=== PATIENT | male | born 1955 | race African-American/Black ===

== ENCOUNTER 2018-03-03 14:58 | Inpatient (IN) ==
[2018-03-03] MEDS ORDERED: Aluminum/Magnesium/Simethacone Susp 30 ML UDC PO PRN (20:15)
[2018-03-03] MEDS ORDERED: Menthol 5.8 MG Lozenge BUCCAL PRN (20:15)
[2018-03-03] MEDS ORDERED: Potassium Chlor 20 mEq Premix 20 MEQ/100 ML PIGGYBACK IV.SIG PRN (22:00)
[2018-03-03] MEDS ORDERED: Magnesium Sulfate Inj 4 GM in Sodium Chlor 0.9% Inj 92 ML IV.SIG PRN (22:00)
[2018-03-03] MEDS ORDERED: Potassium Phosphate 500 MG Soluble Tablet PO PRN ×2 (22:00)
[2018-03-03] MEDS ORDERED: Magnesium Oxide 400 MG Tablet PO PRN (22:00)
[2018-03-03] MEDS ORDERED: Sodium Phosphate Inj 30 MMOL in Sodium Chlor 0.9% Inj 240 ML IV.SIG PRN (22:00)
[2018-03-03] MEDS ORDERED: Magnesium Sulfate Inj 2 GM in Sodium Chlor 0.9% Inj 96 ML IV.SIG PRN (22:00)
[2018-03-03] MEDS ORDERED: Potassium Chlor 40 mEq Premix 40 MEQ/100 ML PIGGYBACK IV.SIG PRN ×2 (22:00)
[2018-03-03] MEDS ORDERED: Potassium Phosphate Inj 30 MMOL in Sodium Chlor 0.9% Inj 250 ML IV.SIG PRN (22:00)
[2018-03-04] MEDS ORDERED: Acetaminophen 325 MG Tablet PO PRN (01:00)
[2018-03-05] MEDS: Multivitamin Inj 10 ML, Folic Acid Inj 1 MG in Sodium Chlor 0.9% Inj 500 ML IV.SIG SCH (22:00)
[2018-03-06] MEDS: Senna/Docusate Sodium 8.6/50 MG Tablet PO SCH ×4 (01:57→20:45)
[2018-03-06] MEDS: Sodium Chloride 23.4% Inj 188 MEQ in Sod Chloride 0.9% Inj 1,000 ML IV.SIG SCH ×4 (01:59→21:17)
[2018-03-06] MEDS: Famotidine PF Inj 20 MG/2 ML Vial IV.PUSH SCH ×5 (01:59→12:37)
[2018-03-06] MEDS: Multivitamin Inj 10 ML, Folic Acid Inj 1 MG in Sodium Chlor 0.9% Inj 500 ML IV.SIG SCH ×4 (05:33→22:51)
[2018-03-06] MEDS: Thiamine Inj 100 MG in Sodium Chlor 0.9% Inj 100 ML IV.SIG SCH ×2 (05:34→06:38)
[2018-03-06 07:23] LABS: Sodium 146 meq/L (136-145)
[2018-03-06 14:29] LABS: Anion Gap 10 meq/L (5-15); Blood Urea Nitrogen 8 mg/dL (7-18); Calcium 8.2 mg/dL (8.5-10.1); Carbon Dioxide 25.3 meq/L (21.0-32.0); Chloride 113 meq/L (98-107); Glomerular Filtration Rate Greater Than 89 mL/min (>89); Glucose,Random 114 mg/dL (74-106); Potassium 3.4 meq/L (3.5-5.1); Sodium 148 meq/L (136-145)
[2018-03-06 14:30] LABS: Alanine Aminotransferase 12 U/L (12-78); Albumin 2.9 g/dL (3.4-5.0); Alkaline Phosphatase 41 U/L (45-117); Aspartate Aminotransferase 53 U/L (15-37); Total Protein 7.4 g/dL (6.4-8.2)
[2018-03-06] MEDS: NICARDIPINE IV.SIG PRN (14:33)
[2018-03-06] MEDS: SODIUM CHLOR 0.9% IV.SIG PRN (14:33)
--- NOTE | 2018-03-06 15:13 | P.PNCC ---
Subjective Subjective Remarks/Hospital Course: 03/03: 62-year-old -[place] male with past medical history of COPD/asthma , tobacco abuse, daily alcohol use who presented to [facility] emergency department after a fall. Patient told EM provider that he was mopping the floor with some chemicals when he felt lightheaded and fell hitting the back of his head. Patient complained of vertigo. CT brain showed right frontal intraparenchymal hemorrhage 5 x 3.3 cm with subarachnoid hemorrhage bilateral frontal lobes, right parietal and right temporal lobes. There is a component of acute subdural hematoma along the right frontoparietal lobe that is 6 mm. There is 4 mm of subfalcine herniation to the left. He is not on anticoagulation but takes aspirin daily. He complained of headache and has received Dilaudid 0.2 mg IV in the ED. BP went up to 183/99 and he was started on Cardene and BP now 144/74 on 5mg/hr. He denied nausea, vomiting, cough, fevers or chills. CTA brain/neck demonstrate no vascular abnormality. He has been admitted by Dr. Dolan and [facility] has been consulted to assist in medical management of ICH as well as workup for syncope. He said that his son had brought him to the emergency department for evaluation however upon evaluation in the ED the son was not present and there was no phone number available for him. 03/04: Resting in bed. Drowsy, arousable. Not following commands. 03/05: Resting in bed. Drowsy, easily arousable. Squeezes with both hands on command. 03/06: More awake, following commands. Dysarthric. Left-sided weakness persists. Objective Vital Signs / I&O: Vital Signs 03/06/18 05:00 03/06/18 08:00 03/06/18 12:00 Temperature 98.8 F 98.7 F 98.9 F Pulse Rate 66 70 58 L Respiratory Rate 22 18 19 Blood Pressure 146/80 H 133/75 138/82 Pulse Oximetry 97 98 98 Intake & Output 03/05/18 03/06/18 03/06/18 18:59 06:59 18:59 Output Total 3500 / 3500 Balance -3500 / -3500 Weight 66 kg Output: Urine 3500 / 3500 Result Diagrams: 03/05/18 04:40 03/06/18 12:09 Objective Remarks: GENERAL: Well-nourished, well-developed patient laying in bed, encephalopathic though arousable. SKIN: Warm and dry. HEAD: Normocephalic. EYES: Pupils bilaterally constricted. No scleral icterus. No injection or drainage. ENT: No nasal bleeding or discharge. Mucous membranes pink and moist. NECK: Trachea midline. No JVD. CARDIOVASCULAR: Regular rate. Sinus on the monitor. No murmurs rubs or gallops. RESPIRATORY: Breathing comfortably with no accessory muscle use. Clear to auscultation. Breath sounds equal bilaterally. On room air. GASTROINTESTINAL: Abdomen soft, non-tender, nondistended. Bowel sounds present. MUSCULOSKELETAL: Extremities without clubbing, cyanosis, or edema. No obvious deformities. NEUROLOGICAL: Drowsy, easily arousable, spontaneous eye opening. Speaks a few words in response to questions, oriented to self, dysarthric speech. Pupils equal and reactive as per above. Extraocular movements are intact with no eye deviation. Squeezes with both hands on command spontaneously moving right upper and lower extremities. Appears to have left hemineglect. does withdraw both arm and leg to noxious stimuli. Sensation appears intact. Plantars equivocal Assessment and Plan - Assessment and Plan Plan: Assessment and Plan NEURO: Right frontal intraparenchymal hemorrhage 53.3 cm. Subarachnoid hemorrhage bilat frontal lobes, right parietal lobe, right temporal. Right frontotemporal subdural hematoma 6 mm with 4 mm right to left shift. Fall ?syncope Daily alcohol use Admitted to [facility] with neurochecks every hour Cardene to maintain systolic blood pressure less than 140, added labetalol prn. Enalaprilat IV x 48 hrs Keppra 500 mg IV every 12 hours Hold Dilaudid for now due to mental status. CTA brain and neck 03/03/18no vascular abnormality CT C-spine -negative for acute injury F/u CT brain. Tylenol as needed for temp >100.4 2% saline/ mannitol per neurosurgery, follow serial sodium/ osmolality Dr. Dolan admitted MVI/Thiamine/folic acid supplementation IV Monitor for evidence of alcohol withdrawal. RESP: Tobacco abuse Elevated carboxyhemoglobin level consistent with history of smoking Patient is currently protecting his airway but his mental status appears to be declining and he is at high risk for loss of airway protection. Will intubate if needed. Tobacco cessation counseling when he is alert and able to participate. CV: Review of EMR indicates he complained of transient shortness of breath and chest pain to Dr. Dolan however emergency medicine providers say this was not mentioned to them. f/u EKG and troponin. Monitor telemetry for evidence of dysrhythmia. Obtain 2D echo. PE is a consideration with syncope, however seems clinically less likely and would not be a candidate for anticoagulation.. f/u BLE u/s. Cardene titrated to SBP <140 as per above. GI: NPO. Speech at therapy to evaluate swallow as he is dysarthric. FEN/RENAL: Monitor intake and output. Monitor electrolytes and creatinine. Replace electrolytes as indicated per ICU electrolyte replacement protocol. ID: Monitor for signs and symptoms of infection. There is presently no leukocytosis or fever. Chest x-ray and UA are negative. HEME: Takes daily aspirin which will be held due to intracerebral hemorrhage.. Platelet count and coags are normal. ENDO: Euglycemic. Monitor bedside glucose every 6 hours. PROPH: SCDs and teds for DVT prophylaxis. Pharmacologic DVT prophylaxis is contraindicated due to intracerebral hemorrhage. Famotidine for stress ulcer prophylaxis ACCESS:Peripheral IV providing adequate access at this time. We will place intravenous line if needed. Art line placement for hemodynamic monitoring. Full code Reviewed EMR and there appears to be no prior advanced directives. No family contact available. Dr. Dalton tried to call the only number provided which ends up being the patient's own cell phone. Patient is critically ill with large intraparenchymal hemorrhage and subdural hematoma. He is at high risk for further decompensation and loss of airway protection. He requires close monitoring in ICU and is at high risk for requiring intubation.
[2018-03-06] MEDS: Potassium Chloride 25 MEQ Effervescent Tablet PO PRN (16:13)
[2018-03-06 21:38] LABS: Sodium 147 meq/L (136-145)
--- NOTE | 2018-03-06 21:49 | P.PNNS ---
Subjective Interval history: Traumatic brain injury with right frontal intracranial hemorrhage. Left hemiplegia. Physical Exam Vital signs: Vital Signs 03/06/18 05:00 03/06/18 08:00 03/06/18 12:00 Temperature 98.8 F 98.7 F 98.9 F Pulse Rate 66 70 58 L Respiratory Rate 22 18 19 Blood Pressure 146/80 H 133/75 138/82 Pulse Oximetry 97 98 98 03/06/18 20:45 Temperature Pulse Rate Respiratory Rate 18 Blood Pressure Pulse Oximetry Intake & Output 03/06/18 03/06/18 03/07/18 06:59 18:59 06:59 Intake Total 960 / 960 105 / 105 Output Total 3500 / 3500 3000 / 3000 Balance -3500 / -3500 -2040 / -2040 105 / 105 Weight 66 kg Intake: IV 105 / 105 Keppra Inj 500 MG In NS Inj 100 105 / 105 ML @ 400 mls/hr IV.SIG Q12H PEDRO LUIS Rx#:[id number] Oral 960 / 960 Output: Urine 3500 / 3500 3000 / 3000 Other: Date of Last Bowel Movement 04/01/18 # Bowel Movements 0 Narrative: Remains moderate lethargic. Occasional verbal. Denies headache Left hemiplegia Moves right upper and lower extremity moderate-occasional to command Assessment and Plan - Assessment (1) Traumatic brain injury Code(s): S06.9X9A - Unspecified intracranial injury with loss of consciousness of unspecified duration, initial encounter Status: Acute Qualifiers: Encounter type: subsequent encounter - Plan Discussed with patient family in room He has advanced to thin liquids per speech therapy today Continuing therapies
[2018-03-07] MEDS: Famotidine PF Inj 20 MG/2 ML Vial IV.PUSH SCH ×2 (01:00→12:01)
[2018-03-07 02:06] LABS: Sodium 151 meq/L (136-145)
[2018-03-07 07:06] LABS: Baso % (Auto) 0.2 % (0.0-2.0); Eos % (Auto) 0.4 % (0.0-4.0); Hematocrit 39.3 % (39.0-51.0); Hemoglobin 13.3 gm/dL (13.0-17.0); Lymph % (Auto) 14.2 % (9.0-44.0); Mean Corpuscular HGB Conc 33.8 % (32.0-36.0); Mean Corpuscular Hemoglobin 32.2 pg (27.0-34.0); Mean Corpuscular Volume 95.3 fL (80.0-100.0); Mean Platelet Volume 8.2 fL (7.0-11.0); Mono # (Auto) 0.6 th/mm3 (0.0-0.9); Mono % (Auto) 8.4 % (0.0-8.0); Neut # (Auto) 5.4 th/mm3 (1.8-7.7); Neut % (Auto) 76.8 % (16.0-70.0); Platelet Count 202 th/mm3 (150-450); Red Blood Count 4.12 mil/mm3 (4.50-5.90); Red Cell Distribution Width 12.6 % (11.6-17.2); White Blood Count 7.1 th/mm3 (4.0-11.0)
[2018-03-07 08:02] LABS: Alanine Aminotransferase 10 U/L (12-78); Albumin 2.8 g/dL (3.4-5.0); Alkaline Phosphatase 45 U/L (45-117); Anion Gap 9 meq/L (5-15); Aspartate Aminotransferase 27 U/L (15-37); Blood Urea Nitrogen 7 mg/dL (7-18); Calcium 8.8 mg/dL (8.5-10.1); Chloride 113 meq/L (98-107); Glomerular Filtration Rate Greater Than 89 mL/min (>89); Glucose,Random 112 mg/dL (74-106); Sodium 147 meq/L (136-145); Total Protein 7.6 g/dL (6.4-8.2)
[2018-03-07 08:39] LABS: Potassium 2.9 meq/L (3.5-5.1)
[2018-03-07] MEDS: Potassium Chlor 20 mEq Premix 20 MEQ/100 ML PIGGYBACK IV.SIG PRN ×4 (08:43→16:53)
[2018-03-07] MEDS: Senna/Docusate Sodium 8.6/50 MG Tablet PO SCH ×2 (08:44→21:06)
[2018-03-07] MEDS: Sodium Chloride 23.4% Inj 188 MEQ in Sod Chloride 0.9% Inj 1,000 ML IV.SIG SCH (09:55)
--- NOTE | 2018-03-07 10:54 | P.PNNS ---
Subjective Interval history: Pt opens eyes and mumbles. He does state his name but again mumbled. He moves the right side well and has weakness in the LLE and dense weakness in the LUE. <Sung Lieberman - Last Filed: 03/07/18 10:43> Physical Exam Vital signs: Vital Signs 03/06/18 12:00 03/06/18 20:00 03/06/18 20:45 Temperature 98.9 F 98.8 F Pulse Rate 58 L 65 Respiratory Rate 19 18 Blood Pressure 138/82 149/86 H Pulse Oximetry 98 96 03/06/18 22:39 03/07/18 04:00 03/07/18 08:41 Temperature Pulse Rate 64 Respiratory Rate 18 Blood Pressure 145/81 H Pulse Oximetry 95 Intake & Output 03/06/18 03/07/18 03/07/18 18:59 06:59 18:59 Intake Total 960 / 960 460 / 460 Output Total 3000 / 3000 3200 / 3200 Balance -2040 / -2040 -2740 / -2740 Weight 66.1 kg Intake: IV 210 / 210 Keppra Inj 500 MG In NS Inj 100 210 / 210 ML @ 400 mls/hr IV.SIG Q12H PEDRO LUIS Rx#:[id number] Oral 960 / 960 250 / 250 Output: Urine 3000 / 3000 3200 / 3200 Other: Date of Last Bowel Movement 04/01/18 04/01/18 # Bowel Movements 0 0 - Constitutional mild distress, thin, cooperative - Routine HEENT Exam Head: Present: normocephalic. Absent: CSF otorrhea Eye: Present: PERRL. Absent: conjunctival icterus ENT: Present: external ear normal - Routine Respiratory Exam Present: CTA bilaterally. Absent: respiratory distress, rhonchi, wheezes - Routine Cardiovascular Exam Present: RRR, S1, S2. Absent: murmur - Routine Abdominal Exam Present: soft, normoactive bowel sounds. Absent: tenderness - Routine Extremities Exam Absent: cyanosis, edema, full ROM (Left sided weakness LLE weak LUE dense weakness.) - Routine Neurological Exam Present: motor deficit (LUE weak, LLE dense weakness.), altered mental status. Absent: oriented X3, moving all extremities, normal speech - Detailed Neurological Exam: Coma Scale Eye Opening: Spontaneous Verbal Response: Sounds Motor Response: Obey commands Alfonso Coma Scale Total: 12 - Routine Psychiatric Exam Present: cooperative. Absent: normal thought process, good insight, good judgment <Sung Lieberman - Last Filed: 03/07/18 10:43> Vital signs: Vital Signs 03/06/18 20:00 03/06/18 20:45 03/06/18 22:39 Temperature 98.8 F Pulse Rate 65 Respiratory Rate 18 18 Blood Pressure 149/86 H Pulse Oximetry 96 03/07/18 04:00 03/07/18 08:41 Temperature Pulse Rate 64 Respiratory Rate Blood Pressure 145/81 H Pulse Oximetry 95 Intake & Output 03/06/18 03/07/18 03/07/18 18:59 06:59 18:59 Intake Total 960 / 960 460 / 460 300 / 300 Output Total 3000 / 3000 3200 / 3200 Balance -2040 / -2040 -2740 / -2740 300 / 300 Weight 66.1 kg Intake: IV 210 / 210 300 / 300 KCl 20 mEq Premix Inj 20 meq In 300 / 300 100 ml @ 50 mls/hr IV.SIG Q2H PRN Rx#:[id number] Keppra Inj 500 MG In NS Inj 100 210 / 210 ML @ 400 mls/hr IV.SIG Q12H PEDRO LUIS Rx#:[id number] Oral 960 / 960 250 / 250 Output: Urine 3000 / 3000 3200 / 3200 Other: Date of Last Bowel Movement 04/01/18 04/01/18 04/01/18 # Bowel Movements 0 0 <Calderon Dolan - Last Filed: 03/07/18 18:44> Assessment and Plan - Assessment (1) Traumatic brain injury Code(s): S06.9X9A - Unspecified intracranial injury with loss of consciousness of unspecified duration, initial encounter Status: Acute Qualifiers: Encounter type: subsequent encounter - Plan Continue with rehab efforts Continue with neuro checks Continue with medical management. <Sung Lieberman - Last Filed: 03/07/18 10:43> - Attending Attestation The exam, history, and the medical decision-making described in the above note were completed with the assistance of the mid-level provider. I reviewed and agree with the findings presented. I attest that I had a [id number] encounter with the patient on the same day, and personally performed and documented my assessment and findings in the medical record. More alert although with left hemiplegia and dysarthric speech. Follows simple commands readily. Continue with supportive care and rehabilitation. <Calderon Dolan - Last Filed: 03/07/18 18:44>
--- NOTE | 2018-03-07 13:35 | P.PNCC ---
Subjective Subjective Remarks/Hospital Course: 03/03: 62-year-old -[place]azi male with past medical history of COPD/asthma , tobacco abuse, daily alcohol use who presented to [facility] emergency department after a fall. Patient told EM provider that he was mopping the floor with some chemicals when he felt lightheaded and fell hitting the back of his head. Patient complained of vertigo. CT brain showed right frontal intraparenchymal hemorrhage 5 x 3.3 cm with subarachnoid hemorrhage bilateral frontal lobes, right parietal and right temporal lobes. There is a component of acute subdural hematoma along the right frontoparietal lobe that is 6 mm. There is 4 mm of subfalcine herniation to the left. He is not on anticoagulation but takes aspirin daily. He complained of headache and has received Dilaudid 0.2 mg IV in the ED. BP went up to 183/99 and he was started on Cardene and BP now 144/74 on 5mg/hr. He denied nausea, vomiting, cough, fevers or chills. CTA brain/neck demonstrate no vascular abnormality. He has been admitted by Dr. Dolan and [facility] has been consulted to assist in medical management of ICH as well as workup for syncope. He said that his son had brought him to the emergency department for evaluation however upon evaluation in the ED the son was not present and there was no phone number available for him. 03/04: Resting in bed. Drowsy, arousable. Not following commands. 03/05: Resting in bed. Drowsy, easily arousable. Squeezes with both hands on command. 03/06: More awake, following commands. Dysarthric. Left-sided weakness persists. 03/07 Patient is awake on room air oxygen when seen. Follows commands. Objective Vital Signs / I&O: Vital Signs 03/06/18 20:00 03/06/18 20:45 03/06/18 22:39 Temperature 98.8 F Pulse Rate 65 Respiratory Rate 18 18 Blood Pressure 149/86 H Pulse Oximetry 96 03/07/18 04:00 03/07/18 08:41 Temperature Pulse Rate 64 Respiratory Rate Blood Pressure 145/81 H Pulse Oximetry 95 Intake & Output 03/06/18 03/07/18 03/07/18 18:59 06:59 18:59 Intake Total 960 / 960 460 / 460 100 / 100 Output Total 3000 / 3000 3200 / 3200 Balance -2040 / -2040 -2740 / -2740 100 / 100 Weight 66.1 kg Intake: IV 210 / 210 100 / 100 KCl 20 mEq Premix Inj 20 meq In 100 / 100 100 ml @ 50 mls/hr IV.SIG Q2H PRN Rx#:[id number] Keppra Inj 500 MG In NS Inj 100 210 / 210 ML @ 400 mls/hr IV.SIG Q12H PEDRO LUIS Rx#:[id number] Oral 960 / 960 250 / 250 Output: Urine 3000 / 3000 3200 / 3200 Other: Date of Last Bowel Movement 04/01/18 04/01/18 # Bowel Movements 0 0 Result Diagrams: 03/07/18 06:00 03/07/18 06:00 Objective Remarks: GENERAL: Well-nourished, well-developed patient laying in bed in NAD SKIN: Warm and dry. HEAD: Normocephalic. EYES: Pupils bilaterally constricted. No scleral icterus. No injection or drainage. ENT: No nasal bleeding or discharge. Mucous membranes pink and moist. NECK: Trachea midline. No JVD. CARDIOVASCULAR: Regular rate. Sinus on the monitor. No murmurs rubs or gallops. RESPIRATORY: Breathing comfortably with no accessory muscle use. Clear to auscultation. Breath sounds equal bilaterally. On room air. GASTROINTESTINAL: Abdomen soft, non-tender, nondistended. Bowel sounds present. MUSCULOSKELETAL: Extremities without clubbing, cyanosis, or edema. No obvious deformities. NEUROLOGICAL: Speaks a few words in response to questions, oriented to self, dysarthric speech. Pupils equal and reactive as per above. Extraocular movements are intact with no eye deviation. Squeezes with both hands on command spontaneously moving right upper and lower extremities. Appears to have left hemineglect. does withdraw both arm and leg to noxious stimuli. Sensation appears intact. Assessment and Plan - Assessment and Plan Plan: Assessment and Plan NEURO: Right frontal intraparenchymal hemorrhage 53.3 cm. Subarachnoid hemorrhage bilat frontal lobes, right parietal lobe, right temporal. Right frontotemporal subdural hematoma 6 mm with 4 mm right to left shift. Fall ?syncope Daily alcohol use Monitor neuro status Cardene to maintain systolic blood pressure less than 140, added labetalol prn. Enalaprilat IV x 48 hrs Keppra 500 mg IV every 12 hours CTA brain and neck 03/03/[address] C-spine -negative for acute injury Tylenol as needed for temp >100.4 2% saline/ mannitol per neurosurgery, follow serial sodium/ osmolality Dr. Dolan admitted MVI/Thiamine/folic acid supplementation IV Monitor for evidence of alcohol withdrawal. RESP: Tobacco abuse Elevated carboxyhemoglobin level consistent with history of smoking Oxygen PRN keep sats>92% Aspiration precautions Tobacco cessation counseling when he is alert and able to participate. CV: Monitor HR and BP keep MAP>65mmHg Place on Hydralazine 25mg Q8, SBP <140 as per above. GI: Speech eval, diet per speech FEN/RENAL: Monitor renal function, I/O's, electrolyte replacement protocol. ID: Monitor for signs and symptoms of infection. There is presently no leukocytosis or fever. HEME: Monitor CBC ENDO: Euglycemic. Monitor bedside glucose every 6 hours. PROPH: SCDs and teds for DVT prophylaxis. Pharmacologic DVT prophylaxis is contraindicated due to intracerebral hemorrhage. Famotidine for stress ulcer prophylaxis ACCESS:Peripheral IV providing adequate access at this time. Full code .
[2018-03-07] MEDS: hydrALAZINE 25 MG Tablet PO SCH ×2 (14:27→17:42)
[2018-03-07 17:10] LABS: Sodium 148 meq/L (136-145)
[2018-03-07] MEDS: Multivitamin Inj 10 ML, Folic Acid Inj 1 MG in Sodium Chlor 0.9% Inj 500 ML IV.SIG SCH (21:56)
[2018-03-08] MEDS: Famotidine PF Inj 20 MG/2 ML Vial IV.PUSH SCH ×2 (00:07→13:27)
[2018-03-08 01:13] LABS: Potassium 3.2 meq/L (3.5-5.1)
[2018-03-08] MEDS: Potassium Chlor 20 mEq Premix 20 MEQ/100 ML PIGGYBACK IV.SIG PRN (03:58)
[2018-03-08 05:39] LABS: Baso % (Auto) 0.4 % (0.0-2.0); Eos % (Auto) 0.7 % (0.0-4.0); Hematocrit 39.2 % (39.0-51.0); Hemoglobin 13.2 gm/dL (13.0-17.0); Lymph # (Auto) 0.9 th/mm3 (1.0-4.8); Lymph % (Auto) 14.7 % (9.0-44.0); Mean Corpuscular HGB Conc 33.5 % (32.0-36.0); Mean Corpuscular Volume 95.6 fL (80.0-100.0); Mean Platelet Volume 8.1 fL (7.0-11.0); Mono # (Auto) 0.6 th/mm3 (0.0-0.9); Mono % (Auto) 9.9 % (0.0-8.0); Neut # (Auto) 4.5 th/mm3 (1.8-7.7); Neut % (Auto) 74.3 % (16.0-70.0); Platelet Count 231 th/mm3 (150-450); Red Blood Count 4.11 mil/mm3 (4.50-5.90); Red Cell Distribution Width 12.6 % (11.6-17.2)
[2018-03-08 05:57] LABS: Anion Gap 11 meq/L (5-15); Blood Urea Nitrogen 7 mg/dL (7-18); Calcium 8.9 mg/dL (8.5-10.1); Carbon Dioxide 24.4 meq/L (21.0-32.0); Chloride 107 meq/L (98-107); Glomerular Filtration Rate Greater Than 89 mL/min (>89); Glucose,Random 115 mg/dL (74-106); Potassium 3.5 meq/L (3.5-5.1); Sodium 142 meq/L (136-145)
[2018-03-08] MEDS: SODIUM CHLOR 0.9% IV.SIG PRN ×2 (07:45→18:28)
[2018-03-08] MEDS: NICARDIPINE IV.SIG PRN ×2 (07:45→18:28)
[2018-03-08] MEDS: Senna/Docusate Sodium 8.6/50 MG Tablet PO SCH ×2 (09:04→20:31)
[2018-03-08] MEDS: hydrALAZINE 25 MG Tablet PO SCH ×3 (09:04→18:22)
--- NOTE | 2018-03-08 09:29 | P.PNNS ---
Subjective Interval history: 03/08/18: Pt awake and alert. Mumbles to questions. Appears comfortable in bed. Dense left hemiparesis. <Sung Lieberman - Last Filed: 03/08/18 09:22> Physical Exam Vital signs: Vital Signs 03/07/18 12:00 03/07/18 16:00 03/07/18 20:00 Temperature 98.5 F 98.9 F 97.7 F Pulse Rate 64 60 60 Respiratory Rate 16 Blood Pressure 161/94 H 140/60 167/93 H Pulse Oximetry 95 97 100 03/07/18 22:48 03/08/18 00:00 03/08/18 04:00 Temperature 97.9 F 98.3 F Pulse Rate 58 L 52 L Respiratory Rate 19 22 Blood Pressure 168/84 H 176/92 H Pulse Oximetry 100 100 100 03/08/18 08:00 Temperature 97.9 F Pulse Rate 54 L Respiratory Rate 18 Blood Pressure 146/79 H Pulse Oximetry 97 Intake & Output 03/07/18 03/08/18 03/08/18 18:59 06:59 18:59 Intake Total 1105 / 1105 Output Total 3150 / 3150 2150 / 2150 Balance -2045 / -2045 -2150 / -2150 Weight 60 kg Intake: IV 505 / 505 KCl 20 mEq Premix Inj 20 meq In 400 / 400 100 ml @ 50 mls/hr IV.SIG Q2H PRN Rx#:[id number] Keppra Inj 500 MG In NS Inj 100 105 / 105 ML @ 400 mls/hr IV.SIG Q12H PEDRO LUIS Rx#:[id number] Oral 600 / 600 Output: Urine 3150 / 3150 2150 / 2150 Other: Date of Last Bowel Movement 04/01/18 04/01/18 04/01/18 # Bowel Movements 0 0 - Constitutional no acute distress, thin, chronically ill appearing - Routine HEENT Exam Head: Present: normocephalic, atraumatic Eye: Present: PERRL - Routine Respiratory Exam Present: CTA bilaterally. Absent: respiratory distress, rhonchi, wheezes - Routine Cardiovascular Exam Present: RRR (Pt on cardene drip.), S1, S2. Absent: murmur - Routine Abdominal Exam Present: soft. Absent: tenderness, distended - Routine Extremities Exam Absent: cyanosis, edema - Routine Skin Exam Present: intact. Absent: cyanosis, erythema - Routine Neurological Exam Present: alert, oriented X3 - Detailed Neurological Exam: Coma Scale Eye Opening: Spontaneous Verbal Response: Words Motor Response: Obey commands Alfonso Coma Scale Total: 13 - Routine Psychiatric Exam Present: unable to assess. Absent: normal affect <Sung Lieberman - Last Filed: 03/08/18 09:22> Vital signs: Vital Signs 03/07/18 20:00 03/07/18 22:48 03/08/18 00:00 Temperature 97.7 F 97.9 F Pulse Rate 60 58 L Respiratory Rate 16 19 Blood Pressure 167/93 H 168/84 H Pulse Oximetry 100 100 100 03/08/18 04:00 03/08/18 08:00 03/08/18 12:00 Temperature 98.3 F 97.9 F 97.6 F Pulse Rate 52 L 54 L 66 Respiratory Rate 22 18 19 Blood Pressure 176/92 H 146/79 H 148/73 H Pulse Oximetry 100 97 97 03/08/18 16:00 Temperature 97.6 F Pulse Rate 70 Respiratory Rate 12 Blood Pressure 127/78 Pulse Oximetry 99 Intake & Output 03/07/18 03/08/18 03/08/18 18:59 06:59 18:59 Intake Total 1105 / 1105 105 / 105 105 / 105 Output Total 3150 / 3150 2150 / 2150 1500 / 1500 Balance -2045 / -2045 -2045 / -2045 -1395 / -1395 Weight 60 kg Intake: IV 505 / 505 105 / 105 105 / 105 KCl 20 mEq Premix Inj 20 meq In 400 / 400 100 ml @ 50 mls/hr IV.SIG Q2H PRN Rx#:[id number] Keppra Inj 500 MG In NS Inj 100 105 / 105 105 / 105 105 / 105 ML @ 400 mls/hr IV.SIG Q12H PEDRO LUIS Rx#:[id number] Oral 600 / 600 0 / 0 Output: Urine 3150 / 3150 2150 / 2150 1500 / 1500 Other: Date of Last Bowel Movement 04/01/18 04/01/18 04/01/18 # Bowel Movements 0 0 0 <Calderon Dolan - Last Filed: 03/08/18 18:15> Assessment and Plan - Assessment (1) Traumatic brain injury Code(s): S06.9X9A - Unspecified intracranial injury with loss of consciousness of unspecified duration, initial encounter Status: Acute Qualifiers: Encounter type: subsequent encounter - Plan Continue with rehab efforts Continue with neuro checks Continue with medical management. Pt on Cardene drip being weaned. <Sung Lieberman - Last Filed: 03/08/18 09:22> - Attending Attestation The exam, history, and the medical decision-making described in the above note were completed with the assistance of the mid-level provider. I reviewed and agree with the findings presented. I attest that I had a [id number] encounter with the patient on the same day, and personally performed and documented my assessment and findings in the medical record. Follow-up CT scan of the head with stable right frontal ICH but increasing surrounding edema. Neurologic examination is stable. He is alert but confused and dysarthric with left hemiplegia. Continue with mannitol and hypertonic saline and close observation in the ICU. Discussed with nursing staff. <Calderon Dolan - Last Filed: 03/08/18 18:15>
--- NOTE | 2018-03-08 11:10 | P.PNCC ---
Subjective Subjective Remarks/Hospital Course: 03/03: 62-year-old -[place] male with past medical history of COPD/asthma , tobacco abuse, daily alcohol use who presented to [facility] emergency department after a fall. Patient told EM provider that he was mopping the floor with some chemicals when he felt lightheaded and fell hitting the back of his head. Patient complained of vertigo. CT brain showed right frontal intraparenchymal hemorrhage 5 x 3.3 cm with subarachnoid hemorrhage bilateral frontal lobes, right parietal and right temporal lobes. There is a component of acute subdural hematoma along the right frontoparietal lobe that is 6 mm. There is 4 mm of subfalcine herniation to the left. He is not on anticoagulation but takes aspirin daily. He complained of headache and has received Dilaudid 0.2 mg IV in the ED. BP went up to 183/99 and he was started on Cardene and BP now 144/74 on 5mg/hr. He denied nausea, vomiting, cough, fevers or chills. CTA brain/neck demonstrate no vascular abnormality. He has been admitted by Dr. Dolan and [facility] has been consulted to assist in medical management of ICH as well as workup for syncope. He said that his son had brought him to the emergency department for evaluation however upon evaluation in the ED the son was not present and there was no phone number available for him. 03/04: Resting in bed. Drowsy, arousable. Not following commands. 03/05: Resting in bed. Drowsy, easily arousable. Squeezes with both hands on command. 03/06: More awake, following commands. Dysarthric. Left-sided weakness persists. 03/07 Patient is awake on room air oxygen when seen. Follows commands. Subjective: 03/08 Reportedly was cooperative and conversant with PT yesterday, oriented x3. Today will follow commands but is lethargic, no comprehensible words. No witnessed seizure. Objective Vital Signs / I&O: Vital Signs 03/07/18 12:00 03/07/18 16:00 03/07/18 20:00 Temperature 98.5 F 98.9 F 97.7 F Pulse Rate 64 60 60 Respiratory Rate 16 Blood Pressure 161/94 H 140/60 167/93 H Pulse Oximetry 95 97 100 03/07/18 22:48 03/08/18 00:00 03/08/18 04:00 Temperature 97.9 F 98.3 F Pulse Rate 58 L 52 L Respiratory Rate 19 22 Blood Pressure 168/84 H 176/92 H Pulse Oximetry 100 100 100 03/08/18 08:00 Temperature 97.9 F Pulse Rate 54 L Respiratory Rate 18 Blood Pressure 146/79 H Pulse Oximetry 97 Intake & Output 03/07/18 03/08/18 03/08/18 18:59 06:59 18:59 Intake Total 1105 / 1105 105 / 105 105 / 105 Output Total 3150 / 3150 2150 / 2150 Balance -204 / -204 -204 / -204 105 / 105 Weight 60 kg Intake: IV 505 / 505 105 / 105 105 / 105 KCl 20 mEq Premix Inj 20 meq In 400 / 400 100 ml @ 50 mls/hr IV.SIG Q2H PRN Rx#:[id number] Keppra Inj 500 MG In NS Inj 100 105 / 105 105 / 105 105 / 105 ML @ 400 mls/hr IV.SIG Q12H PEDRO LUIS Rx#:[id number] Oral 600 / 600 Output: Urine 3150 / 3150 2150 / 2150 Other: Date of Last Bowel Movement 04/01/18 04/01/18 04/01/18 # Bowel Movements 0 0 Result Diagrams: 03/13/18 03:51 03/13/18 21:36 Objective Remarks: GENERAL: Under nourished well, well-developed -[place] male with temporal wasting. SKIN: Warm and dry. HEAD: Normocephalic. EYES: Pupils 4 mm and reactive bilaterally.. No scleral icterus. No injection or drainage. ENT: No nasal bleeding or discharge. Mucous membranes pink and moist. NECK: Trachea midline. No JVD. CARDIOVASCULAR: Sinus bradycardia on the monitor, rate in the 60s. No murmurs rubs or gallops. RESPIRATORY: Breathing comfortably with no accessory muscle use. Clear to auscultation. Breath sounds equal bilaterally. On room air. GASTROINTESTINAL: Abdomen soft, non-tender, nondistended. Bowel sounds present. MUSCULOSKELETAL: Extremities without clubbing, cyanosis, or edema. No obvious deformities. NEUROLOGICAL: Attempts to answer questions but words are incomprehensible, dysarthric speech, left facial droop.. Pupils equal and reactive as per above. Extraocular movements are intact with no eye deviation. Squeezes with his right lower extremity to command.. Flexor response to deep noxious stimuli of left lower extremity. Left upper extremity flaccid.. Assessment and Plan - Problem List (1) Fall Code(s): W19.XXXA - Unspecified fall, initial encounter Status: Acute (2) Cocaine abuse Code(s): F14.10 - Cocaine abuse, uncomplicated Status: Acute (3) ETOH abuse Code(s): F10.10 - Alcohol abuse, uncomplicated Status: Chronic (4) Tobacco abuse Code(s): Z72.0 - Tobacco use Status: Chronic - Assessment and Plan Plan: Assessment and Plan NEURO: Right frontal intraparenchymal hemorrhage 53.3 cm. Subarachnoid hemorrhage bilat frontal lobes, right parietal lobe, right temporal. Right frontotemporal subdural hematoma 6 mm with 4 mm right to left shift. Fall ?syncope Daily alcohol use Monitor neuro status Checks repeat CT brain considering change in neuro status, notified NSG of imaging findings. Check EEG. Cardene to maintain systolic blood pressure less than 140, added labetalol prn. Enalaprilat IV x 48 hrs Keppra 500 mg IV every 12 hours CTA brain and neck 03/03/[address] C-spine -negative for acute injury Tylenol as needed for temp >100.4 2% saline/ mannitol 25 g IV every 6 hours. Per neurosurgery, follow serial sodium/ osmolality Dr. Dolan admitted MVI/Thiamine/folic acid supplementation IV Monitor for evidence of alcohol withdrawal. RESP: Tobacco abuse Elevated carboxyhemoglobin level consistent with history of smoking Oxygen PRN keep sats>92% Aspiration precautions. Still protecting airway, continue to monitor. Tobacco cessation counseling when he is alert and able to participate. CV: Monitor HR and BP keep MAP>65mmHg Place on Hydralazine 25mg Q8, SBP <140 as per above. GI: Speech evaluated. N.p.o. for now until mental status improved FEN/RENAL: Monitor renal function, I/O's, electrolyte replacement protocol. ID: Monitor for signs and symptoms of infection. There is presently no leukocytosis or fever. HEME: Monitor CBC ENDO: Euglycemic. Monitor bedside glucose every 6 hours. PROPH: SCDs and teds for DVT prophylaxis. Pharmacologic DVT prophylaxis is contraindicated due to intracerebral hemorrhage. Famotidine for stress ulcer prophylaxis ACCESS:Peripheral IV providing adequate access at this time. Full code . Level 3 followup
[2018-03-08] MEDS ORDERED: Sodium Chloride 23.4% Inj 188 MEQ in Sod Chloride 0.9% Inj 1,000 ML IV.CONT SCH (13:00)
[2018-03-08 14:03] LABS: Sodium 141 meq/L (136-145)
--- NOTE | 2018-03-08 17:03 | MG ---
cc: Benson Garcia MD, PhD DATE OF STUDY: 03/08/2018 EEG TEST NUMBER: [id number] TECHNIQUE: A 17-channel EEG. DESCRIPTION: The background rhythm reveals mild slowing in the theta range at 6 Hz. Amplitude is about 20 microvolts. There is some muscle artifact present. No lateralizing features are identified. No epileptiform discharges are identified. Occasionally, there is an alpha rhythm present. No epileptiform features are seen. Photic stimulation results in a poor driving response. INTERPRETATION: Abnormal study consistent with mild to moderate encephalopathy. Benson Garcia MD, PhD RADHA/SB , 04:45 PM , 05:02 PM
[2018-03-08 18:08] LABS: Sodium 144 meq/L (136-145)
[2018-03-09 00:18] LABS: Sodium 142 meq/L (136-145)
[2018-03-09] MEDS: Famotidine PF Inj 20 MG/2 ML Vial IV.PUSH SCH ×2 (01:30→12:34)
[2018-03-09 06:11] LABS: Hematocrit 43.7 % (39.0-51.0); Hemoglobin 14.7 gm/dL (13.0-17.0); Mean Corpuscular HGB Conc 33.5 % (32.0-36.0); Mean Corpuscular Hemoglobin 31.9 pg (27.0-34.0); Mean Corpuscular Volume 95.3 fL (80.0-100.0); Platelet Count 245 th/mm3 (150-450); Red Blood Count 4.59 mil/mm3 (4.50-5.90); Red Cell Distribution Width 12.7 % (11.6-17.2); White Blood Count 8.7 th/mm3 (4.0-11.0)
[2018-03-09 06:36] LABS: Anion Gap 11 meq/L (5-15); Calcium 9.1 mg/dL (8.5-10.1); Carbon Dioxide 24.6 meq/L (21.0-32.0); Chloride 107 meq/L (98-107); Glomerular Filtration Rate Greater Than 89 mL/min (>89); Glucose,Random 110 mg/dL (74-106); Potassium 3.1 meq/L (3.5-5.1); Sodium 143 meq/L (136-145)
[2018-03-09 06:44] LABS: Blood Urea Nitrogen 12 mg/dL (7-18)
[2018-03-09] MEDS: Senna/Docusate Sodium 8.6/50 MG Tablet PO SCH ×2 (08:53→21:38)
[2018-03-09] MEDS: hydrALAZINE 25 MG Tablet PO SCH ×3 (08:53→18:31)
[2018-03-09] MEDS: Potassium Chlor 20 mEq Premix 20 MEQ/100 ML PIGGYBACK IV.SIG PRN ×3 (08:54→14:29)
[2018-03-09] MEDS: NICARDIPINE IV.SIG PRN ×4 (09:15→23:34)
[2018-03-09] MEDS: SODIUM CHLOR 0.9% IV.SIG PRN ×4 (09:15→23:34)
--- NOTE | 2018-03-09 09:19 | P.PNCC ---
Subjective Subjective Remarks/Hospital Course: 03/03: 62-year-old -[place] male with past medical history of COPD/asthma , tobacco abuse, daily alcohol use who presented to [facility] emergency department after a fall. Patient told EM provider that he was mopping the floor with some chemicals when he felt lightheaded and fell hitting the back of his head. Patient complained of vertigo. CT brain showed right frontal intraparenchymal hemorrhage 5 x 3.3 cm with subarachnoid hemorrhage bilateral frontal lobes, right parietal and right temporal lobes. There is a component of acute subdural hematoma along the right frontoparietal lobe that is 6 mm. There is 4 mm of subfalcine herniation to the left. He is not on anticoagulation but takes aspirin daily. He complained of headache and has received Dilaudid 0.2 mg IV in the ED. BP went up to 183/99 and he was started on Cardene and BP now 144/74 on 5mg/hr. He denied nausea, vomiting, cough, fevers or chills. CTA brain/neck demonstrate no vascular abnormality. He has been admitted by Dr. Dolan and [facility] [place] has been consulted to assist in medical management of ICH as well as workup for syncope. He said that his son had brought him to the emergency department for evaluation however upon evaluation in the ED the son was not present and there was no phone number available for him. 03/04: Resting in bed. Drowsy, arousable. Not following commands. 03/05: Resting in bed. Drowsy, easily arousable. Squeezes with both hands on command. 03/06: More awake, following commands. Dysarthric. Left-sided weakness persists. 03/07 Patient is awake on room air oxygen when seen. Follows commands. 03/08 Reportedly was cooperative and conversant with PT yesterday, oriented x3. Today will follow commands but is lethargic, no comprehensible words. No witnessed seizure. Subjective: 03/09 CT brain yesterday with evolving R frontal lobe hematoma, vasogenic edema with 2.2 cm right to left midline shift. EEG mild encephalopathy, no seizure. He continues to protect his airway, follows commands on the right. Objective Vital Signs / I&O: Vital Signs 03/08/18 12:00 03/08/18 16:00 03/08/18 20:00 Temperature 97.6 F 97.6 F 97.8 F Pulse Rate 66 70 72 Respiratory Rate 19 12 17 Blood Pressure 148/73 H 127/78 149/84 H Pulse Oximetry 97 99 97 03/09/18 00:00 03/09/18 04:00 Temperature 98.2 F 98.3 F Pulse Rate 75 77 Respiratory Rate 17 17 Blood Pressure 155/87 H 150/80 H Pulse Oximetry 98 97 Intake & Output 03/08/18 03/09/18 03/09/18 18:59 06:59 18:59 Intake Total 625 / 625 715.2 / 715.2 Output Total 1500 / 1500 1300 / 1300 Balance -875 / -875 -584.8 / -584.8 Weight 55.1 kg Intake: IV 625 / 625 715.2 / 715.2 MVI-12 Inj 10 ML Folvite Inj 1 510.2 / 510.2 MG In NS Inj 500 ML @ 125 mls/ hr IV.SIG Q24H PEDRO LUIS Rx#:[id number] KCl 20 mEq Premix Inj 20 meq In 100 / 100 100 ml @ 50 mls/hr IV.SIG Q2H PRN Rx#:[id number] Keppra Inj 500 MG In NS Inj 100 105 / 105 105 / 105 ML @ 400 mls/hr IV.SIG Q12H PEDRO LUIS Rx#:[id number] Cardene Inj 50 MG In NS Inj 500 520 / 520 ML @ 27 mls/hr IV.SIG TITRATE PRN Rx#:[id number] Oral 0 / 0 0 / 0 Output: Urine 1500 / 1500 1300 / 1300 Other: Date of Last Bowel Movement 04/01/18 04/01/18 # Bowel Movements 0 0 Result Diagrams: 03/13/18 03:51 03/13/18 21:36 Objective Remarks: GENERAL: Under nourished well, well-developed -[place] male with temporal wasting. SKIN: Warm and dry. HEAD: Normocephalic. EYES: Pupils 3 mm and reactive to pinpoint bilaterally. No scleral icterus. No injection or drainage. ENT: No nasal bleeding or discharge. Mucous membranes pink and moist, very poor dentition. NECK: Trachea midline. No JVD. CARDIOVASCULAR: occasional irregular beat, rate in 80s, sinus on monitor. No murmurs rubs or gallops. RESPIRATORY: Breathing comfortably with no accessory muscle use. Clear to auscultation. Breath sounds equal bilaterally. On room air. GASTROINTESTINAL: Abdomen soft, non-tender, nondistended. Bowel sounds present. MUSCULOSKELETAL: Extremities without clubbing, cyanosis, or edema. No obvious deformities. NEUROLOGICAL: Attempts to answer questions but words are incomprehensible, dysarthric speech, left facial droop.. Pupils equal and reactive as per above. Makes eye contact and tracks. Squeezes with right hand and moves right lower extremity to command.. Flexor response to deep noxious stimuli of left lower extremity. Left upper extremity flaccid. Assessment and Plan - Problem List (1) Traumatic brain injury Code(s): S06.9X9A - Unspecified intracranial injury with loss of consciousness of unspecified duration, initial encounter Status: Acute (2) Dysphagia Code(s): R13.10 - Dysphagia, unspecified Status: Acute - Assessment and Plan Plan: Assessment and Plan NEURO: Right frontal intraparenchymal hemorrhage 53.3 cm. Subarachnoid hemorrhage bilat frontal lobes, right parietal lobe, right temporal. Right frontotemporal subdural hematoma 6 mm with 4 mm right to left shift. Fall ?syncope Daily alcohol use Cocaine abuse Monitor neuro status in [facility]. Repeat CT 03/08 with evolution of hemorrhage, vasogenic edema with increased midline shift, 2.2 cm. Continuing mannitol 25 gram IV q6, will continue hyperosmolar therapy and target sodium of 150. Place CVL and increase to 3% @ 40/hr. EEG mild encephalopathy, no seizures. Cardene to maintain systolic blood pressure less than 140, Keppra 500 mg IV every 12 hours CTA brain and neck 03/03/[address] C-spine -negative for acute injury Tylenol as needed for temp >100.4 Dr. Dolan admitted MVI/Thiamine/folic acid supplementation IV Monitor for evidence of alcohol withdrawal. RESP: Tobacco abuse Elevated carboxyhemoglobin level consistent with history of smoking Oxygen PRN keep sats>92% Still protecting airway, continue to monitor. Tobacco cessation counseling when he is alert and able to participate. On RA CV: Monitor HR and BP keep MAP>65mmHg Place on Hydralazine 25mg Q8, Norvasc 10 daily. Cardene to maintain SBP <140 as per above. Labetalol prn. GI:. N.p.o. for now until mental status improved. Speech therapy following. Initiate enteral feeds with goal rate 40ml/hr, monitor closely for residuals. FEN/RENAL: Monitor renal function, I/O's, electrolyte replacement protocol. ID: Monitor for signs and symptoms of infection. There is presently no leukocytosis or fever. HEME: Monitor CBC ENDO: Euglycemic. Monitor bedside glucose every 6 hours. PROPH: SCDs and teds for DVT prophylaxis. Pharmacologic DVT prophylaxis is contraindicated due to intracerebral hemorrhage. Famotidine for stress ulcer prophylaxis ACCESS: With increased edema, will need hyperosmolar therapy for a few more days. Will place CVL. Full code Appears we still do not have a healthcare proxy identified for this patient. Will request case management assist as I do not see any family contact info during prior admissions. Level 3 followup (1) Traumatic brain injury Qualifiers: Encounter type: subsequent encounter
--- NOTE | 2018-03-09 11:06 | P.PNNS ---
Subjective Interval history: Pt awake. He is aphasic. He states his name when asked but remainder of his speech is mumbled. He has a dense LUE weakness and weakness in LLE. <Sung Lieberman - Last Filed: 03/09/18 11:00> Physical Exam Vital signs: Vital Signs 03/08/18 12:00 03/08/18 16:00 03/08/18 20:00 Temperature 97.6 F 97.6 F 97.8 F Pulse Rate 66 70 72 Respiratory Rate 19 12 17 Blood Pressure 148/73 H 127/78 149/84 H Pulse Oximetry 97 99 97 03/09/18 00:00 03/09/18 04:00 Temperature 98.2 F 98.3 F Pulse Rate 75 77 Respiratory Rate 17 17 Blood Pressure 155/87 H 150/80 H Pulse Oximetry 98 97 Intake & Output 03/08/18 03/09/18 03/09/18 18:59 06:59 18:59 Intake Total 625 / 625 715.2 / 715.2 Output Total 1500 / 1500 1300 / 1300 Balance -875 / -875 -584.8 / -584.8 Weight 55.1 kg Intake: IV 625 / 625 715.2 / 715.2 MVI-12 Inj 10 ML Folvite Inj 1 510.2 / 510.2 MG In NS Inj 500 ML @ 125 mls/ hr IV.SIG Q24H PEDRO LUIS Rx#:[id number] KCl 20 mEq Premix Inj 20 meq In 100 / 100 100 ml @ 50 mls/hr IV.SIG Q2H PRN Rx#:[id number] Keppra Inj 500 MG In NS Inj 100 105 / 105 105 / 105 ML @ 400 mls/hr IV.SIG Q12H PEDRO LUIS Rx#:[id number] Cardene Inj 50 MG In NS Inj 500 520 / 520 ML @ 27 mls/hr IV.SIG TITRATE PRN Rx#:[id number] Oral 0 / 0 0 / 0 Output: Urine 1500 / 1500 1300 / 1300 Other: Date of Last Bowel Movement 04/01/18 04/01/18 # Bowel Movements 0 0 - Constitutional no acute distress, thin, cachectic, chronically ill appearing - Routine HEENT Exam Head: Present: normocephalic, atraumatic Eye: Present: PERRL. Absent: conjunctival icterus, periorbital ecchymosis - Routine Neck Exam Present: trachea midline - Routine Respiratory Exam Present: CTA bilaterally. Absent: respiratory distress, rhonchi, wheezes - Routine Cardiovascular Exam Present: RRR, S1, S2. Absent: murmur - Routine Abdominal Exam Present: soft. Absent: tenderness, distended - Routine Extremities Exam Absent: cyanosis, edema - Routine Skin Exam Present: intact. Absent: cyanosis, erythema - Routine Neurological Exam Present: motor deficit (Dense LUE weakness and weakness in LLE also but much weaker in LUE.). Absent: moving all extremities (LUE dense paresis.), normal speech - Detailed Neurological Exam: Coma Scale Eye Opening: Spontaneous Verbal Response: Words Motor Response: Obey commands Alfonso Coma Scale Total: 13 - Routine Psychiatric Exam Present: unable to assess. Absent: agitated <Sung Lieberman - Last Filed: 03/09/18 11:00> Vital signs: Vital Signs 03/08/18 16:00 03/08/18 20:00 03/09/18 00:00 Temperature 97.6 F 97.8 F 98.2 F Pulse Rate 70 72 75 Respiratory Rate 12 17 17 Blood Pressure 127/78 149/84 H 155/87 H Pulse Oximetry 99 97 98 03/09/18 04:00 03/09/18 08:00 03/09/18 12:00 Temperature 98.3 F 98.8 F 101.1 F H Pulse Rate 77 85 86 Respiratory Rate 17 16 17 Blood Pressure 150/80 H 150/70 H 139/67 Pulse Oximetry 97 96 96 Intake & Output 03/08/18 03/09/18 03/09/18 18:59 06:59 18:59 Intake Total 625 / 625 1235.2 / 1235.2 1100 / 1100 Output Total 1500 / 1500 1300 / 1300 Balance -875 / -875 -64.8 / -64.8 1100 / 1100 Weight 55.1 kg Intake: IV 625 / 625 1235.2 / 1235.2 1100 / 1100 MVI-12 Inj 10 ML Folvite Inj 1 510.2 / 510.2 MG In NS Inj 500 ML @ 125 mls/ hr IV.SIG Q24H PEDRO LUIS Rx#:[id number] KCl 20 mEq Premix Inj 20 meq In 100 / 100 100 / 100 100 ml @ 50 mls/hr IV.SIG Q2H PRN Rx#:[id number] Keppra Inj 500 MG In NS Inj 100 105 / 105 105 / 105 ML @ 400 mls/hr IV.SIG Q12H PEDRO LUIS Rx#:[id number] Cardene Inj 50 MG In NS Inj 500 520 / 520 520 / 520 1000 / 1000 ML @ 27 mls/hr IV.SIG TITRATE PRN Rx#:[id number] Oral 0 / 0 0 / 0 Output: Urine 1500 / 1500 1300 / 1300 Other: Date of Last Bowel Movement 04/01/18 04/01/18 04/01/18 # Bowel Movements 0 0 <Calderon Dolan - Last Filed: 03/09/18 14:40> Assessment and Plan - Assessment (1) Traumatic brain injury Code(s): S06.9X9A - Unspecified intracranial injury with loss of consciousness of unspecified duration, initial encounter Status: Acute Qualifiers: Encounter type: subsequent encounter - Plan Continue with rehab efforts Continue with neuro checks Continue with medical management. <Sung Lieberman - Last Filed: 03/09/18 11:00> - Attending Attestation The exam, history, and the medical decision-making described in the above note were completed with the assistance of the mid-level provider. I reviewed and agree with the findings presented. I attest that I had a [id number] encounter with the patient on the same day, and personally performed and documented my assessment and findings in the medical record. Exam is unchanged. Continue with cerebral edema treatment with mannitol and hypertonic saline and restrict IV fluids as much as possible. He is still on Cardene drip for hypertension regulation. Discussed with Dr. Dalton wrapper sizer and nursing staff. <Calderon Dolan - Last Filed: 03/09/18 14:40>
[2018-03-09] MEDS: Labetalol HCl Inj 100 MG/20 ML Vial IV.PUSH PRN ×2 (12:00→15:21)
--- NOTE | 2018-03-09 12:02 | XR ---
EXAM DATE: 03/09/2018 11:58 AM EDT AGE/SEX: 62 years / Male INDICATIONS: NG tube placement. CLINICAL DATA: This is the patient's subsequent encounter. Patient reports that signs and symptoms h ave been present for 4 - 6 days and indicates a pain score of 0/10. MEDICAL/SURGICAL HISTORY: . Asthma. Vertigo. . COMPARISON: No prior exams available for comparison. FINDINGS: Examination of the abdomen demonstrates a normal bowel gas pattern. Nasogastric tube with tip in stom ach. No free air is identified. No organomegaly is evident. Osseous structures are intact. CONCLUSION: Adequate placement of a nasogastric tube Electronically signed by: Sung Alicia MD 03/09/2018 12:01 PM EDT
[2018-03-09] MEDS: Potassium Chloride 25 MEQ Effervescent Tablet PO PRN (12:34)
[2018-03-09] MEDS ORDERED: amLODIPine 10 MG Tablet NG/OG ONE (12:42)
[2018-03-09 13:20] LABS: Sodium 148 meq/L (136-145)
--- NOTE | 2018-03-09 17:48 | P.PCN ---
Date of procedure: 03/09/18 Pre-op diagnosis: ICH Post-op diagnosis: same Procedure: DATE: 03/09/18 CENTRAL LINE PLACEMENT: Left internal jugular vein. INDICATION: Central venous access CONSENT Patient is not capacitated for medical decision-making. There is no family member contact available. Procedure was done emergently as it is in patient's best interest to have central venous access during hyperosmolar therapy due to risk of infiltration. and I agree. DESCRIPTION OF THE PROCEDURE The patient was placed in supine position, mild Trendelenburg. The skin was cleansed with Chloraprep x3. Additional barrier precautions included large sterile drape, sterile gloves, sterile gown, face mask, and hat. 1 % lidocaine was used for local anesthesia. Under direct ultrasound guidance and on single attempt, the vein was accessed with an introducer needle. The guide wire was advanced and the tract was dilated. Using Seldinger technique a 7 Upper Sorbian 20 cm antimicrobial coated triple-lumen catheter was advanced to a depth of 18 centimeters. The guide wire was removed. All ports had good return of dark venous blood and flushed easily with saline. The central line was secured with StatLock. A sterile dressing with antibiotic disc was applied. ESTIMATED BLOOD LOSS: Minimal COMPLICATIONS: No apparent complications. STAT chest x-ray is pending Anesthesia: local Condition: stable Disposition: ICU
--- NOTE | 2018-03-09 18:33 | XR ---
EXAM DATE: 03/09/2018 6:07 PM EDT AGE/SEX: 62 years / Male INDICATIONS: Left jugular central line placement. CLINICAL DATA: This is the patient's subsequent encounter. Patient reports that signs and symptoms h ave been present for 1 week and indicates a pain score of Nonresponsive. MEDICAL/SURGICAL HISTORY: Non-responsive. Non-responsive. COMPARISON: [facility] [place], CHEST SINGLE AP, 03/03/2018. . FINDINGS: NG tip in stomach. Left central line in superior vena cava. Tortuous aorta. No consolidation or signi ficant effusion. No pneumothorax. CONCLUSION: NG and left central line in good position. No acute findings. Electronically signed by: Nikita Guerra MD 03/09/2018 6:32 PM EDT
[2018-03-09] MEDS ORDERED: Furosemide 20 MG Tablet NG/OG ONE (19:00)
[2018-03-09 19:10] LABS: Sodium 147 meq/L (136-145)
[2018-03-10 00:28] LABS: Potassium 3.5 meq/L (3.5-5.1)
[2018-03-10] MEDS: Famotidine PF Inj 20 MG/2 ML Vial IV.PUSH SCH ×2 (00:30→14:35)
[2018-03-10] MEDS: hydrALAZINE 25 MG Tablet PO SCH ×4 (00:30→17:52)
[2018-03-10 06:19] LABS: Hematocrit 40.1 % (39.0-51.0); Hemoglobin 13.4 gm/dL (13.0-17.0); Mean Corpuscular HGB Conc 33.4 % (32.0-36.0); Mean Corpuscular Hemoglobin 31.8 pg (27.0-34.0); Mean Corpuscular Volume 95.2 fL (80.0-100.0); Mean Platelet Volume 8.2 fL (7.0-11.0); Platelet Count 253 th/mm3 (150-450); Red Blood Count 4.21 mil/mm3 (4.50-5.90); Red Cell Distribution Width 13.1 % (11.6-17.2); White Blood Count 10.8 th/mm3 (4.0-11.0)
[2018-03-10 06:55] LABS: Anion Gap 9 meq/L (5-15); Blood Urea Nitrogen 17 mg/dL (7-18); Calcium 8.5 mg/dL (8.5-10.1); Carbon Dioxide 27.5 meq/L (21.0-32.0); Chloride 115 meq/L (98-107); Glomerular Filtration Rate Greater Than 89 mL/min (>89); Glucose,Random 134 mg/dL (74-106); Magnesium 2.7 mg/dL (1.5-2.5); Potassium 3.3 meq/L (3.5-5.1); Sodium 151 meq/L (136-145)
--- NOTE | 2018-03-10 09:13 | P.PNNS ---
Subjective Interval history: Pt lethargic but arousable. He was reportedly up all last night. He does open his eyes to tactile stimulation and follows simple commands on right side. Left hemiparesis. <Sung Lieberman - Last Filed: 03/10/18 09:09> Physical Exam Vital signs: Vital Signs 03/09/18 12:00 03/09/18 16:00 03/09/18 20:00 Temperature 101.1 F H 100 F H 98.4 F Pulse Rate 86 68 80 Respiratory Rate 17 12 20 Blood Pressure 139/67 140/77 140/77 Pulse Oximetry 96 68 L 96 03/10/18 00:00 03/10/18 04:00 Temperature 98.9 F 98.6 F Pulse Rate 80 82 Respiratory Rate 20 23 Blood Pressure 146/80 H 146/78 H Pulse Oximetry 95 95 Intake & Output 03/09/18 03/10/18 03/10/18 18:59 06:59 18:59 Intake Total 1876 / 1876 993 / 993 Output Total 1300 / 1300 2350 / 2350 Balance 576 / 576 -1357 / -1357 Weight 58.1 kg Intake: IV 1576 / 1576 520 / 520 Sodium Chloride 23.4% Inj 188 371 / 371 MEQ In NS Inj 1,000 ML @ 30 mls /hr IV.CONT .Q24H PEDRO LUIS Rx#: [id number] KCl 20 mEq Premix Inj 20 meq In 100 / 100 100 ml @ 50 mls/hr IV.SIG Q2H PRN Rx#:[id number] Keppra Inj 500 MG In NS Inj 100 105 / 105 ML @ 400 mls/hr IV.SIG Q12H PEDRO LUIS Rx#:[id number] Cardene Inj 50 MG In NS Inj 500 1000 / 1000 520 / 520 ML @ 27 mls/hr IV.SIG TITRATE PRN Rx#:[id number] Oral 0 / 0 Tube Feeding 353 / 353 Water Bolus Amount 300 / 300 120 / 120 Output: Urine 1300 / 1300 2350 / 2350 Other: Date of Last Bowel Movement 04/01/18 04/01/18 # Bowel Movements 0 0 - Constitutional no acute distress, thin, cachectic, chronically ill appearing, somnolent - Routine HEENT Exam Head: Present: normocephalic Eye: Present: PERRL - Routine Respiratory Exam Present: CTA bilaterally. Absent: rhonchi, wheezes - Routine Cardiovascular Exam Present: RRR, S1, S2. Absent: murmur - Routine Abdominal Exam Present: soft, normoactive bowel sounds. Absent: tenderness, distended - Routine Skin Exam Present: dry. Absent: cyanosis, erythema - Routine Neurological Exam Absent: alert (Lethargic) - Detailed Neurological Exam: Coma Scale Eye Opening: To pressure Verbal Response: Sounds Motor Response: Obey commands Alfonso Coma Scale Total: 10 - Routine Psychiatric Exam Present: unable to assess <Sung Lieberman - Last Filed: 03/10/18 09:09> Vital signs: Vital Signs 03/09/18 12:00 03/09/18 16:00 03/09/18 20:00 Temperature 101.1 F H 100 F H 98.4 F Pulse Rate 86 68 80 Respiratory Rate 17 12 20 Blood Pressure 139/67 140/77 140/77 Pulse Oximetry 96 68 L 96 03/10/18 00:00 03/10/18 04:00 Temperature 98.9 F 98.6 F Pulse Rate 80 82 Respiratory Rate 20 23 Blood Pressure 146/80 H 146/78 H Pulse Oximetry 95 95 Intake & Output 03/09/18 03/10/18 03/10/18 18:59 06:59 18:59 Intake Total 1876 / 1876 1098 / 1098 Output Total 1300 / 1300 2350 / 2350 Balance 576 / 576 -1252 / -1252 Weight 58.1 kg Intake: IV 1576 / 1576 625 / 625 Sodium Chloride 23.4% Inj 188 371 / 371 MEQ In NS Inj 1,000 ML @ 30 mls /hr IV.CONT .Q24H PEDRO LUIS Rx#: [id number] KCl 20 mEq Premix Inj 20 meq In 100 / 100 100 ml @ 50 mls/hr IV.SIG Q2H PRN Rx#:[id number] Keppra Inj 500 MG In NS Inj 100 105 / 105 105 / 105 ML @ 400 mls/hr IV.SIG Q12H PEDRO LUIS Rx#:[id number] Cardene Inj 50 MG In NS Inj 500 1000 / 1000 520 / 520 ML @ 27 mls/hr IV.SIG TITRATE PRN Rx#:[id number] Oral 0 / 0 Tube Feeding 353 / 353 Water Bolus Amount 300 / 300 120 / 120 Output: Urine 1300 / 1300 2350 / 2350 Other: Date of Last Bowel Movement 04/01/18 04/01/18 # Bowel Movements 0 0 <Calderon Dolan - Last Filed: 03/10/18 10:48> Assessment and Plan - Assessment (1) Traumatic brain injury Code(s): S06.9X9A - Unspecified intracranial injury with loss of consciousness of unspecified duration, initial encounter Status: Acute Qualifiers: Encounter type: subsequent encounter - Plan Continue with rehab efforts Continue with neuro checks Continue with medical management. <Sung Lieberman - Last Filed: 03/10/18 09:09> - Attending Attestation The exam, history, and the medical decision-making described in the above note were completed with the assistance of the mid-level provider. I reviewed and agree with the findings presented. I attest that I had a [id number] encounter with the patient on the same day, and personally performed and documented my assessment and findings in the medical record. <Caldeorn Dolan - Last Filed: 03/10/18 10:48>
--- NOTE | 2018-03-10 09:25 | P.PNCC ---
Subjective Subjective Remarks/Hospital Course: 03/03: 62-year-old -Citizen Of [place] male with past medical history of COPD/asthma , tobacco abuse, daily alcohol use who presented to [facility] emergency department after a fall. Patient told EM provider that he was mopping the floor with some chemicals when he felt lightheaded and fell hitting the back of his head. Patient complained of vertigo. CT brain showed right frontal intraparenchymal hemorrhage 5 x 3.3 cm with subarachnoid hemorrhage bilateral frontal lobes, right parietal and right temporal lobes. There is a component of acute subdural hematoma along the right frontoparietal lobe that is 6 mm. There is 4 mm of subfalcine herniation to the left. He is not on anticoagulation but takes aspirin daily. He complained of headache and has received Dilaudid 0.2 mg IV in the ED. BP went up to 183/99 and he was started on Cardene and BP now 144/74 on 5mg/hr. He denied nausea, vomiting, cough, fevers or chills. CTA brain/neck demonstrate no vascular abnormality. He has been admitted by Dr. Dolan and [facility] has been consulted to assist in medical management of ICH as well as workup for syncope. He said that his son had brought him to the emergency department for evaluation however upon evaluation in the ED the son was not present and there was no phone number available for him. 03/04: Resting in bed. Drowsy, arousable. Not following commands. 03/05: Resting in bed. Drowsy, easily arousable. Squeezes with both hands on command. 03/06: More awake, following commands. Dysarthric. Left-sided weakness persists. 03/07 Patient is awake on room air oxygen when seen. Follows commands. 03/08 Reportedly was cooperative and conversant with PT yesterday, oriented x3. Today will follow commands but is lethargic, no comprehensible words. No witnessed seizure. Subjective: 03/09 CT brain yesterday with evolving R frontal lobe hematoma, vasogenic edema with 2.2 cm right to left midline shift. EEG mild encephalopathy, no seizure. He continues to protect his airway, follows commands on the right. 03/10: Awake and alert. Follows commands on the right. Protecting airway currently. On 3% saline. Objective Vital Signs / I&O: Vital Signs 03/09/18 12:00 03/09/18 16:00 03/09/18 20:00 Temperature 101.1 F H 100 F H 98.4 F Pulse Rate 86 68 80 Respiratory Rate 17 12 20 Blood Pressure 139/67 140/77 140/77 Pulse Oximetry 96 68 L 96 03/10/18 00:00 03/10/18 04:00 Temperature 98.9 F 98.6 F Pulse Rate 80 82 Respiratory Rate 20 23 Blood Pressure 146/80 H 146/78 H Pulse Oximetry 95 95 Intake & Output 03/09/18 03/10/18 03/10/18 18:59 06:59 18:59 Intake Total 1876 / 1876 993 / 993 Output Total 1300 / 1300 2350 / 2350 Balance 576 / 576 -1357 / -1357 Weight 58.1 kg Intake: IV 1576 / 1576 520 / 520 Sodium Chloride 23.4% Inj 188 371 / 371 MEQ In NS Inj 1,000 ML @ 30 mls /hr IV.CONT .Q24H PEDRO LUIS Rx#: [id number] KCl 20 mEq Premix Inj 20 meq In 100 / 100 100 ml @ 50 mls/hr IV.SIG Q2H PRN Rx#:[id number] Keppra Inj 500 MG In NS Inj 100 105 / 105 ML @ 400 mls/hr IV.SIG Q12H PEDRO LUIS Rx#:[id number] Cardene Inj 50 MG In NS Inj 500 1000 / 1000 520 / 520 ML @ 27 mls/hr IV.SIG TITRATE PRN Rx#:[id number] Oral 0 / 0 Tube Feeding 353 / 353 Water Bolus Amount 300 / 300 120 / 120 Output: Urine 1300 / 1300 2350 / 2350 Other: Date of Last Bowel Movement 04/01/18 04/01/18 # Bowel Movements 0 0 Result Diagrams: 03/10/18 05:45 03/10/18 05:45 Objective Remarks: GENERAL: Under nourished well, well-developed -Citizen [place] male with temporal wasting. SKIN: Warm and dry. HEAD: Normocephalic. EYES: Pupils 3 mm and reactive to pinpoint bilaterally. No scleral icterus. No injection or drainage. ENT: No nasal bleeding or discharge. Mucous membranes pink and moist, very poor dentition. NECK: Trachea midline. No JVD. CARDIOVASCULAR: occasional irregular beat, rate in 80s, sinus on monitor. No murmurs rubs or gallops. RESPIRATORY: Breathing comfortably with no accessory muscle use. Clear to auscultation. Breath sounds equal bilaterally. On room air. GASTROINTESTINAL: Abdomen soft, non-tender, nondistended. Bowel sounds present. MUSCULOSKELETAL: Extremities without clubbing, cyanosis, or edema. No obvious deformities. NEUROLOGICAL: Attempts to answer questions but words are incomprehensible, dysarthric speech, left facial droop.. Pupils equal and reactive as per above. Makes eye contact and tracks. Squeezes with right hand and moves right lower extremity to command.. Flexor response to deep noxious stimuli of left lower extremity. Left upper extremity flaccid. Assessment and Plan - Assessment and Plan Plan: Assessment and Plan NEURO: Right frontal intraparenchymal hemorrhage 53.3 cm. Subarachnoid hemorrhage bilat frontal lobes, right parietal lobe, right temporal. Right frontotemporal subdural hematoma 6 mm with 4 mm right to left shift. Fall ?syncope Daily alcohol use Cocaine abuse Monitor neuro status in [facility]. Repeat CT 03/08 with evolution of hemorrhage, vasogenic edema with increased midline shift, 2.2 cm. Continuing mannitol 25 gram IV q6, will continue hyperosmolar therapy and target sodium of 150. Place CVL and increase to 3% @ 40/hr. EEG mild encephalopathy, no seizures. Cardene to maintain systolic blood pressure less than 140, Keppra 500 mg IV every 12 hours CTA brain and neck 03/03/[address] C-spine -negative for acute injury Tylenol as needed for temp >100.4 Dr. Dolan admitted MVI/Thiamine/folic acid supplementation IV Monitor for evidence of alcohol withdrawal. RESP: Tobacco abuse Elevated carboxyhemoglobin level consistent with history of smoking Oxygen PRN keep sats>92% Still protecting airway, continue to monitor. Tobacco cessation counseling when he is alert and able to participate. On RA CV: Monitor HR and BP keep MAP>65mmHg Place on Hydralazine 25mg Q8, Norvasc 10 daily. Cardene to maintain SBP <140 as per above. Labetalol prn. GI:. N.p.o. for now until mental status improved. Speech therapy following. Initiate enteral feeds with goal rate 40ml/hr, monitor closely for residuals. FEN/RENAL: Monitor renal function, I/O's, electrolyte replacement protocol. ID: Monitor for signs and symptoms of infection. There is presently no leukocytosis or fever. HEME: Monitor CBC ENDO: Euglycemic. Monitor bedside glucose every 6 hours. PROPH: SCDs and teds for DVT prophylaxis. Pharmacologic DVT prophylaxis is contraindicated due to intracerebral hemorrhage. Famotidine for stress ulcer prophylaxis ACCESS: With increased edema, will need hyperosmolar therapy for a few more days. Will place CVL. Full code Appears we still do not have a healthcare proxy identified for this patient. Will request case management assist as I do not see any family contact info during prior admissions. Level 3 followup
[2018-03-10] MEDS: Senna/Docusate Sodium 8.6/50 MG Tablet PO SCH ×2 (09:31→21:35)
[2018-03-10] MEDS: amLODIPine 10 MG Tablet NG/OG SCH (09:32)
[2018-03-10] MEDS: NICARDIPINE IV.SIG PRN (11:17)
[2018-03-10] MEDS: SODIUM CHLOR 0.9% IV.SIG PRN (11:17)
[2018-03-10 12:25] LABS: Sodium 152 meq/L (136-145)
--- NOTE | 2018-03-10 14:38 | P.DIET ---
Nutritional Evaluation Type of nutrition evaluation: initial Nutrition consult regarding: Tube Feeding Objective - Diagnosis ICH, SAH, Syncope - Objective % IBW: 87 Body Weight Used for Calculations: Actual Energy Needs - Lower Range (kCal/kg): 28 Energy Needs - Upper Range (kCal/kg): 33 Lower Limit kCal/kg (kCals): 1,831 Upper Limit kCal/kg (kCals): 2,158 Lower Limit Protein Factor (Grams per Kg): 1.2 Upper Limit Protein Factor (Grams per Kg): 1.5 Lower Protein Needs (Protein): 79 Upper Protein Needs (Protein): 98 Dietitian Reviewed in Medical Record: Curent medications, Intake & Output, Labs , Medical history, Tube feeding Diet Order: NPO Speech Therapy Recommendations: Yes Objective Comments: Nutritional assessment uses wt of 65.4kg PMH: COPD, Asthma, tobacco abuse, daily ETOH use Meds include: Lactulose, Keppra Labs include: Na 151, K+ 3.3, Glu 134, Osmolality 324 UOP: 3650mls, (-) BM Assessment Assessment: Pt at nutritional risk r/t dx and need for a TF for nutrition support. Pt with a developing R frontal lobe hematoma. Per speech pt is NPO. Nutritional needs as assessed above. TF Jevity 1.5 with goal rate of 40 ml/hr per MD, watch for residuals. In order to meet pt's nutritional needs, a goal rate of 55 ml/hr to provide 1980 kcals, 84 gms protein and 1003 mls free water. Will monitor TF tolerance, clinical course. Recommendations: TF Jevity 1.5 with goal rate 55 ml/hr Dietitian to Monitor: Lab values, Intake & Output, Tube feeding tolerance, Weight change, Residuals, Medical course
[2018-03-10] MEDS: Potassium Chloride 25 MEQ Effervescent Tablet PO PRN (15:57)
[2018-03-10] MEDS ORDERED: Furosemide 20 MG Tablet NG/OG ONE (17:43)
[2018-03-10 18:38] LABS: Sodium 155 meq/L (136-145)
[2018-03-11] MEDS: hydrALAZINE 25 MG Tablet PO SCH ×4 (00:19→18:20)
[2018-03-11 00:35] LABS: Sodium 156 meq/L (136-145)
[2018-03-11] MEDS: SODIUM CHLOR 0.9% IV.SIG PRN ×2 (01:14→12:53)
[2018-03-11] MEDS: NICARDIPINE IV.SIG PRN ×2 (01:14→12:53)
[2018-03-11] MEDS: Famotidine PF Inj 20 MG/2 ML Vial IV.PUSH SCH ×2 (01:16→12:49)
[2018-03-11 06:23] LABS: Sodium 155 meq/L (136-145)
[2018-03-11] MEDS: amLODIPine 10 MG Tablet NG/OG SCH (09:28)
[2018-03-11] MEDS: Senna/Docusate Sodium 8.6/50 MG Tablet PO SCH ×2 (09:28→20:02)
--- NOTE | 2018-03-11 11:48 | P.PNNS ---
Subjective Interval history: Unable to obtain response from patient. Tends to mumble Physical Exam Vital signs: Vital Signs 03/10/18 12:00 03/10/18 14:00 03/10/18 16:00 Temperature 98.2 F 98.6 F Pulse Rate 92 H 100 H 90 Respiratory Rate 22 26 H Blood Pressure 133/74 134/69 Pulse Oximetry 96 94 L 03/10/18 18:00 03/10/18 20:00 03/10/18 21:34 Temperature 98.8 F Pulse Rate 105 H 100 H Respiratory Rate 25 H 16 Blood Pressure 119/69 Pulse Oximetry 95 03/10/18 22:00 03/11/18 00:00 03/11/18 02:00 Temperature 98.6 F Pulse Rate 100 H 91 H 91 H Respiratory Rate 30 H Blood Pressure 132/74 Pulse Oximetry 95 03/11/18 04:00 03/11/18 06:00 03/11/18 08:00 Temperature 98.8 F 98.9 F Pulse Rate 89 101 H 98 H Respiratory Rate 26 H 26 H Blood Pressure 146/80 H 159/78 H Pulse Oximetry 98 90 L 03/11/18 10:00 Temperature Pulse Rate 102 H Respiratory Rate Blood Pressure Pulse Oximetry Intake & Output 03/10/18 03/11/18 03/11/18 18:59 06:59 18:59 Intake Total 1735 / 1735 1272 / 1272 Output Total 1000 / 1000 1500 / 1500 Balance 735 / 735 -228 / -228 Weight 60.7 kg Intake: IV 1125 / 1125 625 / 625 Sodium Chloride 3% Inj 500 ML @ 500 / 500 30 mls/hr IV.SIG CONT ONE Rx#: [id number] Keppra Inj 500 MG In NS Inj 100 105 / 105 105 / 105 ML @ 400 mls/hr IV.SIG Q12H PEDRO LUIS Rx#:[id number] Cardene Inj 50 MG In NS Inj 500 520 / 520 520 / 520 ML @ 27 mls/hr IV.SIG TITRATE PRN Rx#:[id number] Oral 0 / 0 Tube Feeding 510 / 510 497 / 497 Water Bolus Amount 100 / 100 150 / 150 Output: Urine 1000 / 1000 1500 / 1500 Other: Date of Last Bowel Movement 03/02/18 03/02/18 03/02/18 # Bowel Movements 0 0 Narrative: Very lethargic. Tends to mumble. Does not follow commands Previous CT reviewed. Assessment and Plan - Plan Neurological observation to be continued with close support We will repeat CT of the brain
--- NOTE | 2018-03-11 12:45 | P.PNCC ---
Subjective Subjective Remarks/Hospital Course: 03/03: 62-year-old -[place] male with past medical history of COPD/asthma , tobacco abuse, daily alcohol use who presented to [facility] emergency department after a fall. Patient told EM provider that he was mopping the floor with some chemicals when he felt lightheaded and fell hitting the back of his head. Patient complained of vertigo. CT brain showed right frontal intraparenchymal hemorrhage 5 x 3.3 cm with subarachnoid hemorrhage bilateral frontal lobes, right parietal and right temporal lobes. There is a component of acute subdural hematoma along the right frontoparietal lobe that is 6 mm. There is 4 mm of subfalcine herniation to the left. He is not on anticoagulation but takes aspirin daily. He complained of headache and has received Dilaudid 0.2 mg IV in the ED. BP went up to 183/99 and he was started on Cardene and BP now 144/74 on 5mg/hr. He denied nausea, vomiting, cough, fevers or chills. CTA brain/neck demonstrate no vascular abnormality. He has been admitted by Dr. Dolan and [facility] has been consulted to assist in medical management of ICH as well as workup for syncope. He said that his son had brought him to the emergency department for evaluation however upon evaluation in the ED the son was not present and there was no phone number available for him. 03/04: Resting in bed. Drowsy, arousable. Not following commands. 03/05: Resting in bed. Drowsy, easily arousable. Squeezes with both hands on command. 03/06: More awake, following commands. Dysarthric. Left-sided weakness persists. 03/07 Patient is awake on room air oxygen when seen. Follows commands. 03/08 Reportedly was cooperative and conversant with PT yesterday, oriented x3. Today will follow commands but is lethargic, no comprehensible words. No witnessed seizure. Subjective: 03/09 CT brain yesterday with evolving R frontal lobe hematoma, vasogenic edema with 2.2 cm right to left midline shift. EEG mild encephalopathy, no seizure. He continues to protect his airway, follows commands on the right. 03/10: Awake and alert. Follows commands on the right. Protecting airway currently. On 3% saline. 03/11:Drowsy, easily arousable at the time of my evaluation this morning, moves right upper and lower extremity. speech unclear (mumbles). Objective Vital Signs / I&O: Vital Signs 03/10/18 14:00 03/10/18 16:00 03/10/18 18:00 Temperature 98.6 F Pulse Rate 100 H 90 105 H Respiratory Rate 26 H Blood Pressure 134/69 Pulse Oximetry 94 L 03/10/18 20:00 03/10/18 21:34 03/10/18 22:00 Temperature 98.8 F Pulse Rate 100 H 100 H Respiratory Rate 25 H 16 Blood Pressure 119/69 Pulse Oximetry 95 03/11/18 00:00 03/11/18 02:00 03/11/18 04:00 Temperature 98.6 F 98.8 F Pulse Rate 91 H 91 H 89 Respiratory Rate 30 H 26 H Blood Pressure 132/74 146/80 H Pulse Oximetry 95 98 03/11/18 06:00 03/11/18 08:00 03/11/18 10:00 Temperature 98.9 F Pulse Rate 101 H 98 H 102 H Respiratory Rate 26 H Blood Pressure 159/78 H Pulse Oximetry 90 L 03/11/18 12:00 Temperature 99 F Pulse Rate 112 H Respiratory Rate 28 H Blood Pressure 126/74 Pulse Oximetry 95 Intake & Output 03/10/18 03/11/18 03/11/18 18:59 06:59 18:59 Intake Total 1735 / 1735 1272 / 1272 Output Total 1000 / 1000 1500 / 1500 Balance 735 / 735 -228 / -228 Weight 60.7 kg Intake: IV 1125 / 1125 625 / 625 Sodium Chloride 3% Inj 500 ML @ 500 / 500 30 mls/hr IV.SIG CONT ONE Rx#: [id number] Keppra Inj 500 MG In NS Inj 100 105 / 105 105 / 105 ML @ 400 mls/hr IV.SIG Q12H PEDRO LUIS Rx#:[id number] Cardene Inj 50 MG In NS Inj 500 520 / 520 520 / 520 ML @ 27 mls/hr IV.SIG TITRATE PRN Rx#:[id number] Oral 0 / 0 Tube Feeding 510 / 510 497 / 497 Water Bolus Amount 100 / 100 150 / 150 Output: Urine 1000 / 1000 1500 / 1500 Other: Date of Last Bowel Movement 03/02/18 03/02/18 03/02/18 # Bowel Movements 0 0 Result Diagrams: 03/10/18 05:45 03/11/18 11:25 Objective Remarks: GENERAL: Under nourished well, well-developed -[place] male with temporal wasting. SKIN: Warm and dry. HEAD: Normocephalic. EYES: Pupils 3 mm and reactive to pinpoint bilaterally. No scleral icterus. No injection or drainage. ENT: No nasal bleeding or discharge. Mucous membranes pink and moist, very poor dentition. NECK: Trachea midline. No JVD. CARDIOVASCULAR: occasional irregular beat, rate in 80s, sinus on monitor. No murmurs rubs or gallops. RESPIRATORY: Breathing comfortably with no accessory muscle use. Clear to auscultation. Breath sounds equal bilaterally. On room air. GASTROINTESTINAL: Abdomen soft, non-tender, nondistended. Bowel sounds present. MUSCULOSKELETAL: Extremities without clubbing, cyanosis, or edema. No obvious deformities. NEUROLOGICAL: Attempts to answer questions but words are incomprehensible, dysarthric speech, left facial droop.. Pupils equal and reactive as per above. Makes eye contact and tracks. Squeezes with right hand and moves right lower extremity to command.. Flexor response to deep noxious stimuli of left lower extremity. Left upper extremity flaccid. Assessment and Plan - Assessment and Plan Plan: Assessment and Plan NEURO: Right frontal intraparenchymal hemorrhage 53.3 cm. Subarachnoid hemorrhage bilat frontal lobes, right parietal lobe, right temporal. Right frontotemporal subdural hematoma 6 mm with 4 mm right to left shift. Fall ?syncope Daily alcohol use Cocaine abuse Monitor neuro status in [facility]. Repeat CT 03/08 with evolution of hemorrhage, vasogenic edema with increased midline shift, 2.2 cm. Continuing mannitol 25 gram IV q6, will continue hyperosmolar therapy and target sodium of 150. 3% saline held due to hypernatremia. EEG mild encephalopathy, no seizures. Cardene to maintain systolic blood pressure less than 140, Keppra 500 mg IV every 12 hours CTA brain and neck 03/03/[address] C-spine -negative for acute injury Tylenol as needed for temp >100.4 Dr. Dolan admitted MVI/Thiamine/folic acid supplementation IV Monitor for evidence of alcohol withdrawal. RESP: Tobacco abuse Elevated carboxyhemoglobin level consistent with history of smoking Oxygen PRN keep sats>92% Still protecting airway, continue to monitor. Tobacco cessation counseling when he is alert and able to participate. On RA CV: Monitor HR and BP keep MAP>65mmHg Place on Hydralazine 25mg Q6, Norvasc 10 daily. labetalol prn, clonidine prn Cardene to maintain SBP <140 as per above. Labetalol prn. GI:. Speech therapy following. Initiate enteral feeds with goal rate 40ml/hr, monitor closely for residuals. FEN/RENAL: Monitor renal function, I/O's, electrolyte replacement protocol. ID: Monitor for signs and symptoms of infection. There is presently no leukocytosis or fever. HEME: Monitor CBC ENDO: Euglycemic. Monitor bedside glucose every 6 hours. PROPH: SCDs and teds for DVT prophylaxis. Pharmacologic DVT prophylaxis is contraindicated due to intracerebral hemorrhage. Famotidine for stress ulcer prophylaxis ACCESS: With increased edema, will need hyperosmolar therapy for a few more days. LIJ CVL. Full code Appears we still do not have a healthcare proxy identified for this patient. Will request case management assist as I do not see any family contact info during prior admissions. D/W Neurosurgery-F/u Head CT, CXR. May require intubation. Level 3 followup
--- NOTE | 2018-03-11 12:59 | XR ---
EXAM DATE: 03/11/2018 12:56 PM EDT AGE/SEX: 62 years / Male INDICATIONS: Respiratory distress CLINICAL DATA: This is the patient's subsequent encounter. Patient reports that signs and symptoms h ave been present for 2 weeks and indicates a pain score of 2/10. MEDICAL/SURGICAL HISTORY: . COPD, Asthma None. COMPARISON: [facility], CHEST 1V SINGLE AP, 03/09/2018. . FINDINGS: A single AP view of the chest demonstrates the lungs to be symmetrically aerated without evidence of mass, infiltrate or effusion. Left central line in superior vena cava. NG tube traverses the esophagu s. CONCLUSION: Support apparatus as above. No acute findings. Electronically signed by: Nikita Guerra MD 03/11/2018 12:58 PM EDT
[2018-03-11 15:04] LABS: ABG Base Excess 5.4 mmol/L (-2-2); ABG PCO2 41 mmHg (38-42); ABG PO2 71 mmHg (61-120)
--- NOTE | 2018-03-11 15:34 | CT ---
EXAM DATE: 03/11/2018 3:21 PM EDT AGE/SEX: 62 years / Male INDICATIONS: F/U cerebral bleed. CLINICAL DATA: This is the patient's subsequent encounter. Patient reports that signs and symptoms h ave been present for 1 week and indicates a pain score of Nonresponsive. MEDICAL/SURGICAL HISTORY: Non-responsive. Non-responsive. RADIATION DOSE: 34.90 CTDI (mGy) COMPARISON: [facility] – [place] HEAD W/O CONTRAST, 03/08/2018. . TECHNIQUE: CT of the head without contrast. Using automated exposure control and adjustment of the mA and/or kV according to patient size, radiation dose was kept as low as reasonably achievable to ob tain optimal diagnostic quality images. DICOM format image data is available electronically for revi ew and comparison. FINDINGS: Today's exam is compared to the prior study. There continues to be a large intraparenchymal hemorrhag e surrounded by edema involving predominantly most of the right frontal lobe. There continues to be m ass effect and midline shift to the left by approximately 1.1 cm. the ventricles remain within normal limits for size. There is a small right-sided subdural hematoma along the right temporal lobe with a pproximately 4 mm of separation. This is stable compared to the prior study. There is some edema thro ughout the right cerebral hemisphere. The posterior fossa and midbrain are within normal limits and s table. No new areas of hemorrhage are demonstrated. CONCLUSION: 1. No significant change in the large intraparenchymal hemorrhage surrounded by edema involving most of the right frontal lobe. 2. No significant change with the 4 mm right subdural hematoma. 3. There continues to be mass effect and midline shift to the left by approximately 1.1 cm. Electronically signed by: Ramez Murphy MD 03/11/2018 3:33 PM EDT
[2018-03-11] MEDS ORDERED: Etomidate Inj 40 MG/20 ML Vial IV.PUSH ONE (16:38)
[2018-03-11] MEDS: fentaNYL 10 mcg/mL Premix Drip 2,500 MCG/250 ML BAG IV.SIG PRN (16:55)
--- NOTE | 2018-03-11 16:55 | P.PCN ---
Date of procedure: 03/11/18 Pre-op diagnosis: Acute respiratory failure Post-op diagnosis: same Procedure: DATE: 03/11/2018 PROCEDURE: Orotracheal intubation INDICATION: Acute respiratory failure DETAILS OF PROCEDURE The patient was placed in optimal position and preoxygenated with 100% FiO2 via bag valve mask. At the start oxygen saturation was 100%. The patient was administered 20 mg etomidate IV and 50 milligrams rocuronium IV. I entered the oropharynx with a size 4 laryngoscope blade and obtained a grade 2 view of the airway. On single attempt a size 8.0 cuffed endotracheal tube was passed through the vocal cords. Correct tube location was confirmed with end tidal CO2 detector and by auscultating over bilateral lung clark. The endotracheal tube was secured with adhesive tape at a depth of 24 cm at the lips. The patient was connected to the ventilator. The patient tolerated the procedure well without any apparent complications. Oxygen saturations were maintained greater than 95% all times. STAT chest x-ray pending at time of dictation.
[2018-03-11] MEDS: Propofol 1000 mg/100 ml Inj 1,000 MG/100 ML BOTTLE IV.CONT PRN (16:56)
--- NOTE | 2018-03-11 17:37 | XR ---
EXAM DATE: 03/11/2018 5:33 PM EDT AGE/SEX: 62 years / Male INDICATIONS: Status post intubation. CLINICAL DATA: This is the patient's subsequent encounter. Patient reports that signs and symptoms h ave been present for 4 - 6 days and indicates a pain score of Nonresponsive. MEDICAL/SURGICAL HISTORY: Chronic obstructive pulmonary disease. Asthma. None. COMPARISON: [facility], CHEST 1V SINGLE AP, 03/11/2018. . FINDINGS: Status post placement of an endotracheal tube. The ET tube appears to be in good position. There is n o pneumothorax. The lungs are well aerated bilaterally. There is an NG tube in stomach. There is a le ft-sided central line in place. No significant changes compared to the prior study. CONCLUSION: 1. ET tube in good position. 2. No evidence of pneumothorax. Electronically signed by: Ramez Murphy MD 03/11/2018 5:36 PM EDT
[2018-03-11 18:05] LABS: ABG Base Excess 4.4 mmol/L (-2-2); ABG PCO2 45 mmHg (38-42); ABG PO2 115 mmHg (61-120)
[2018-03-11] MEDS: Artificial Tears Opth Drops 15 ML Bottle EACH EYE SCH (18:20)
[2018-03-11] MEDS: Potassium Chloride 25 MEQ Effervescent Tablet PO PRN (20:03)
[2018-03-11] MEDS: Bisacodyl 10 MG Supp RECTAL PRN (20:03)
[2018-03-11] MEDS: Chlorhexidine 0.12% Oral Kit 15 ML UDC OROPHARYNG SCH ×2 (20:04)
[2018-03-12] MEDS: Famotidine PF Inj 20 MG/2 ML Vial IV.PUSH SCH (00:04)
[2018-03-12] MEDS: hydrALAZINE 25 MG Tablet PO SCH ×5 (00:04→17:12)
[2018-03-12] MEDS: Oral Hygiene Kit OROPHARYNG SCH ×5 (00:05→17:11)
[2018-03-12] MEDS: Artificial Tears Opth Drops 15 ML Bottle EACH EYE SCH ×3 (00:05→17:12)
[2018-03-12] MEDS: Propofol 1000 mg/100 ml Inj 1,000 MG/100 ML BOTTLE IV.CONT PRN (06:45)
[2018-03-12 06:56] LABS: Baso % (Auto) 0.3 % (0.0-2.0); Eos % (Auto) 0.5 % (0.0-4.0); Hematocrit 39.8 % (39.0-51.0); Lymph # (Auto) 1.1 th/mm3 (1.0-4.8); Mean Corpuscular HGB Conc 32.7 % (32.0-36.0); Mean Corpuscular Hemoglobin 31.9 pg (27.0-34.0); Mean Corpuscular Volume 97.3 fL (80.0-100.0); Mean Platelet Volume 7.7 fL (7.0-11.0); Mono # (Auto) 1.1 th/mm3 (0.0-0.9); Neut # (Auto) 7.8 th/mm3 (1.8-7.7); Neut % (Auto) 77.2 % (16.0-70.0); Platelet Count 243 th/mm3 (150-450); Red Blood Count 4.09 mil/mm3 (4.50-5.90); Red Cell Distribution Width 13.4 % (11.6-17.2); White Blood Count 10.1 th/mm3 (4.0-11.0)
[2018-03-12 07:01] LABS: Albumin 2.6 g/dL (3.4-5.0); Anion Gap 4 meq/L (5-15); Aspartate Aminotransferase 26 U/L (15-37); Blood Urea Nitrogen 25 mg/dL (7-18); Calcium 8.6 mg/dL (8.5-10.1); Carbon Dioxide 31.6 meq/L (21.0-32.0); Chloride 119 meq/L (98-107); Glomerular Filtration Rate Greater Than 89 mL/min (>89); Glucose,Random 135 mg/dL (74-106); Potassium 4.3 meq/L (3.5-5.1); Sodium 155 meq/L (136-145)
[2018-03-12 07:02] LABS: Alanine Aminotransferase 14 U/L (12-78)
[2018-03-12 07:04] LABS: Alkaline Phosphatase 48 U/L (45-117); Total Protein 7.6 g/dL (6.4-8.2)
[2018-03-12] MEDS: Senna/Docusate Sodium 8.6/50 MG Tablet PO SCH (11:28)
[2018-03-12] MEDS: Chlorhexidine 0.12% Oral Kit 15 ML UDC OROPHARYNG SCH ×4 (11:28→21:00)
[2018-03-12] MEDS: amLODIPine 10 MG Tablet NG/OG SCH (11:28)
--- NOTE | 2018-03-12 12:30 | P.PNCC ---
Subjective Subjective Remarks/Hospital Course: 03/03: 62-year-old -Malaysian male with past medical history of COPD/asthma , tobacco abuse, daily alcohol use who presented to [facility] emergency department after a fall. Patient told EM provider that he was mopping the floor with some chemicals when he felt lightheaded and fell hitting the back of his head. Patient complained of vertigo. CT brain showed right frontal intraparenchymal hemorrhage 5 x 3.3 cm with subarachnoid hemorrhage bilateral frontal lobes, right parietal and right temporal lobes. There is a component of acute subdural hematoma along the right frontoparietal lobe that is 6 mm. There is 4 mm of subfalcine herniation to the left. He is not on anticoagulation but takes aspirin daily. He complained of headache and has received Dilaudid 0.2 mg IV in the ED. BP went up to 183/99 and he was started on Cardene and BP now 144/74 on 5mg/hr. He denied nausea, vomiting, cough, fevers or chills. CTA brain/neck demonstrate no vascular abnormality. He has been admitted by Dr. Dolan and [facility] has been consulted to assist in medical management of ICH as well as workup for syncope. He said that his son had brought him to the emergency department for evaluation however upon evaluation in the ED the son was not present and there was no phone number available for him. 03/04: Resting in bed. Drowsy, arousable. Not following commands. 03/05: Resting in bed. Drowsy, easily arousable. Squeezes with both hands on command. 03/06: More awake, following commands. Dysarthric. Left-sided weakness persists. 03/07 Patient is awake on room air oxygen when seen. Follows commands. 03/08 Reportedly was cooperative and conversant with PT yesterday, oriented x3. Today will follow commands but is lethargic, no comprehensible words. No witnessed seizure. 03/09 CT brain yesterday with evolving R frontal lobe hematoma, vasogenic edema with 2.2 cm right to left midline shift. EEG mild encephalopathy, no seizure. He continues to protect his airway, follows commands on the right. 03/10: Awake and alert. Follows commands on the right. Protecting airway currently. On 3% saline. 03/11:Drowsy, easily arousable at the time of my evaluation this morning, moves right upper and lower extremity. speech unclear (mumbles). SUBJECTIVE: 03/09: Intubated yesterday secondary to altered mental status and copious thick secretions. 2 feeds of been resumed. Bowel regimen resume. Objective Vital Signs / I&O: Vital Signs 03/11/18 14:00 03/11/18 16:00 03/11/18 17:01 Temperature 100.9 F H Pulse Rate 120 H 113 H Respiratory Rate 32 H 15 Blood Pressure 138/78 Pulse Oximetry 90 L 99 03/11/18 18:00 03/11/18 20:00 03/11/18 22:00 Temperature 101.9 F H Pulse Rate 98 H 106 H 105 H Respiratory Rate 15 Blood Pressure 118/70 Pulse Oximetry 99 03/12/18 00:00 03/12/18 00:29 03/12/18 02:00 Temperature 99.9 F H Pulse Rate 94 H 98 H 98 H Respiratory Rate 23 15 Blood Pressure 125/74 Pulse Oximetry 100 03/12/18 03:05 03/12/18 04:00 03/12/18 04:07 Temperature 99.1 F Pulse Rate 105 H 98 H Respiratory Rate 15 15 15 Blood Pressure 120/79 Pulse Oximetry 100 100 03/12/18 06:00 03/12/18 07:00 03/12/18 08:00 Temperature Pulse Rate 102 H 100 H Respiratory Rate 15 15 Blood Pressure Pulse Oximetry 100 03/12/18 11:00 03/12/18 11:44 Temperature Pulse Rate 108 H Respiratory Rate 10 L 10 L Blood Pressure Pulse Oximetry 97 Intake & Output 03/11/18 03/12/18 03/12/18 18:59 06:59 18:59 Intake Total 1215 / 1215 557 / 557 Output Total 750 / 750 875 / 875 Balance 465 / 465 -318 / -318 Weight 59.3 kg Intake: IV 625 / 625 205 / 205 Diprivan 1000 mg/100 ml Inj 1, 100 / 100 000 mg In 100 ml @ 5 MCG/KG/MIN 1.821 mls/hr IV.CONT TITRATE PRN Rx#:[id number] Keppra Inj 500 MG In NS Inj 100 105 / 105 105 / 105 ML @ 400 mls/hr IV.SIG Q12H PEDRO LUIS Rx#:[id number] Cardene Inj 50 MG In NS Inj 500 520 / 520 ML @ 27 mls/hr IV.SIG TITRATE PRN Rx#:[id number] Oral 0 / 0 Tube Feeding 470 / 470 350 / 350 Water Bolus Amount 120 / 120 2 / 2 Output: Urine 750 / 750 Urine Amount (Catheter) 875 / 875 Indwelling Temp Sensing 875 / 875 Catheter Other: Date of Last Bowel Movement 03/02/18 03/02/18 # Bowel Movements 0 0 Result Diagrams: 03/12/18 06:10 03/12/18 06:10 Other Results: Microbiology 03/12/18 01:15 Sputum - Endotracheal Gram Stain - Final Imaging: ITS Impressions Head CT 03/08/18 11:20 CONCLUSION: 1. Large area of evolving hematoma right frontal lobe with increasing vasogenic edema and [id number] midline shift now 2.2 cm. This is more prominent on current study. 2. Small right subdural hematoma measures 5 mm not significantly changed. Abdomen X-Ray 03/09/18 00:00 CONCLUSION: Adequate placement of a nasogastric tube Chest X-Ray 03/09/18 17:43 CONCLUSION: NG and left central line in good position. No acute findings. Chest X-Ray 03/11/18 00:00 CONCLUSION: 1. ET tube in good position. 2. No evidence of pneumothorax. Head CT 03/11/18 00:00 CONCLUSION: 1. No significant change in the large intraparenchymal hemorrhage surrounded by edema involving most of the right frontal lobe. 2. No significant change with the 4 mm right subdural hematoma. 3. There continues to be mass effect and midline shift to the left by approximately 1.1 cm. Chest X-Ray 03/11/18 13:00 CONCLUSION: Support apparatus as above. No acute findings. Objective Remarks: GENERAL: 62-year-old -Malaysian male poorly nourished currently orotracheally intubated SKIN: Warm and dry. HEAD: Normocephalic. EYES: Pupils 3 mm and reactive to pinpoint bilaterally. No scleral icterus. No injection or drainage. ENT: No nasal bleeding or discharge. Mucous membranes pink and moist, very poor dentition. NECK: Trachea midline. No JVD. CARDIOVASCULAR: RRR. S1, S2. No S4. No murmurs rubs or gallops. RESPIRATORY: Transmitted upper airway sounds/coarse rhonchorous breath sounds appreciated. No wheezing GASTROINTESTINAL: Abdomen soft, non-tender, nondistended. Bowel sounds present. MUSCULOSKELETAL: Extremities without clubbing, cyanosis, or edema. No obvious deformities. NEUROLOGICAL: Left facial droop. Pupils equal and reactive as per above. Spontaneous movement right upper and lower extremity. Withdraws left lower extremity. Assessment and Plan - Assessment and Plan Plan: NEURO/Psych: Right frontal intraparenchymal hemorrhage 53.3 cm. Subarachnoid hemorrhage bilat frontal lobes, right parietal lobe, right temporal. Right frontotemporal subdural hematoma 6 mm with 4 mm right to left shift. Mechanical fall Possible syncopal event Daily alcohol use Cocaine abuse Propofol/fentanyl drip for sedation/analgesia while intubated Goal of RASS -[address] brain 03/11 revealed no significant change in the large intraparenchymal hemorrhage surrounded by edema involving most of the right frontal lobe. No significant change with the 4 mm right subdural hematoma. There continues to be mass effect and midline shift to the left by approximately 1.[address] 03/08 with evolution of hemorrhage, vasogenic edema with increased midline shift, 2.2 cm. Currently holding mannitol 25 gram IV q6 in light of elevated serum positive, will continue hyperosmolar therapy and target sodium of 150 -155. 3% saline held due to current sodium 155 EEG 03/09 revealed moderate encephalopathy, no seizures. Written for nicardipine to maintain systolic blood pressure less than 140, Levetiracetam 500 mg IV every 12 hours CTA brain and neck 03/03/[address] C-spine -negative for acute injury Acetaminophen 650 mg every 6 hours l as needed for temp >100.4 Dr. Dolan admitted Daily thiamine, folate and multivitamin Likely through winter for DTs. RESP: Acute respiratory failure Tobacco abuse [facility] 15/09/10/49 Ventilator bundle Albuterol/ipratropium aerosols every 4 hours with albuterol aerosols every 2 hours as needed for dyspnea Spontaneous breathing trials when clinically indicated Follow-up in a.m. since chest x-ray 03/13 Tobacco cessation counseling when he is alert and able to participate. CV: Essential hypertension Monitor HR and BP keep MAP>65mmHg Currently on hydralazine 25mg Q6, amlodipine 10 daily. labetalol 10 mg IV every 2 hours prn, clonidine 0.1 mg every 6 hours prn Nicardipine drip to maintain SBP <140 as per above. GI:. Tube feeds with Jevity 1.5 goal 55 cc an hour per nutrition recommendations Lansoprazole for GI prophylaxis Docusate serum/senna 1 tablet twice daily for bowel regimen FEN/RENAL: Hypernatremia Monitor renal function, I/O's, electrolyte replacement protocol. Recheck BMP in a.m. ID: Monitor for signs and symptoms of infection. Sputum 03/12 pending HEME: Monitor CBC ENDO: Scale insulin aspart insulin Accu-Cheks every 6 hours to maintain euglycemia PROPH: SCDs and teds for DVT prophylaxis. Pharmacologic DVT prophylaxis is contraindicated due to intracerebral hemorrhage. Hospital for stress ulcer prophylaxis ACCESS: [facility]. Level 3 follow-up
[2018-03-12] MEDS ORDERED: Glycerin Adult 2 GM Supp RECTAL ONE (12:35)
[2018-03-12 12:58] LABS: Sodium 155 meq/L (136-145)
[2018-03-12] MEDS ORDERED: Mineral Oil Liq 30 ML UDC PO ONE (13:30)
[2018-03-12] MEDS ORDERED: Methylnaltrexone Inj 12 MG/0.6 ML Vial SQ ONE (13:30)
--- NOTE | 2018-03-12 13:31 | P.PNNS ---
Subjective Interval history: Nurses report no change Physical Exam Vital signs: Vital Signs 03/11/18 14:00 03/11/18 16:00 03/11/18 17:01 Temperature 100.9 F H Pulse Rate 120 H 113 H Respiratory Rate 32 H 15 Blood Pressure 138/78 Pulse Oximetry 90 L 99 03/11/18 18:00 03/11/18 20:00 03/11/18 22:00 Temperature 101.9 F H Pulse Rate 98 H 106 H 105 H Respiratory Rate 15 Blood Pressure 118/70 Pulse Oximetry 99 03/12/18 00:00 03/12/18 00:29 03/12/18 02:00 Temperature 99.9 F H Pulse Rate 94 H 98 H 98 H Respiratory Rate 23 15 Blood Pressure 125/74 Pulse Oximetry 100 03/12/18 03:05 03/12/18 04:00 03/12/18 04:07 Temperature 99.1 F Pulse Rate 105 H 98 H Respiratory Rate 15 15 15 Blood Pressure 120/79 Pulse Oximetry 100 100 03/12/18 06:00 03/12/18 07:00 03/12/18 08:00 Temperature Pulse Rate 102 H 100 H Respiratory Rate 15 15 Blood Pressure Pulse Oximetry 100 03/12/18 11:00 03/12/18 11:44 Temperature Pulse Rate 108 H Respiratory Rate 10 L 10 L Blood Pressure Pulse Oximetry 97 Intake & Output 03/11/18 03/12/18 03/12/18 18:59 06:59 18:59 Intake Total 1215 / 1215 557 / 557 Output Total 750 / 750 875 / 875 Balance 465 / 465 -318 / -318 Weight 59.3 kg Intake: IV 625 / 625 205 / 205 Diprivan 1000 mg/100 ml Inj 1, 100 / 100 000 mg In 100 ml @ 5 MCG/KG/MIN 1.821 mls/hr IV.CONT TITRATE PRN Rx#:[id number] Keppra Inj 500 MG In NS Inj 100 105 / 105 105 / 105 ML @ 400 mls/hr IV.SIG Q12H PEDRO LUIS Rx#:[id number] Cardene Inj 50 MG In NS Inj 500 520 / 520 ML @ 27 mls/hr IV.SIG TITRATE PRN Rx#:[id number] Oral 0 / 0 Tube Feeding 470 / 470 350 / 350 Water Bolus Amount 120 / 120 2 / 2 Output: Urine 750 / 750 Urine Amount (Catheter) 875 / 875 Indwelling Temp Sensing 875 / 875 Catheter Other: Date of Last Bowel Movement 03/02/18 03/02/18 # Bowel Movements 0 0 Narrative: Patient intubated yesterday tends to open eyes Not following commands CT scan reviewed - Urinary Catheter Management Indwelling Temp Sensing Catheter Cath placed during this visit: yes Reason for continuing: Acute urinary retention Insertion date: 03/12/18 Insertion time: 05:30 Assessment and Plan - Plan Patient intubated yesterday due to increasing secretions. CT scan of the brain appears stable although with continued hemorrhage Will need to continue close support and watch
--- NOTE | 2018-03-12 14:16 | XR ---
EXAM DATE: 03/12/2018 2:10 PM EDT AGE/SEX: 62 years / Male INDICATIONS: Concern for ileus. CLINICAL DATA: This is the patient's initial encounter. Patient reports that signs and symptoms have been present for 1 day and indicates a pain score of Nonresponsive. MEDICAL/SURGICAL HISTORY: Non-responsive. Non-responsive. [place] [facility] [place]. . FINDINGS: The abdominal bowel gas pattern is normal. Gaseous distention of bowel loops. No abnormal masses, c alcifications, or organomegaly is seen. Nasogastric tube with tip in stomach. The osseous structures are unremarkable. CONCLUSION: Gaseous distention of bowel loops, not significantly changed. Electronically signed by: Sung Alicia MD 03/12/2018 2:15 PM EDT
[2018-03-12] MEDS: Bisacodyl 10 MG Supp RECTAL PRN (14:33)
[2018-03-12] MEDS: Docusate Sodium Liq 100 MG/10 ML UDC NG/OG SCH ×2 (17:10→21:01)
[2018-03-12 18:19] LABS: Sodium 156 meq/L (136-145)
[2018-03-12] MEDS: Polyethylene Glycol 3350 17 GM Packet NG/OG SCH (21:02)
[2018-03-12] MEDS: Sennosides Liq 8.8 MG/5 ML UDC NG/OG SCH (21:03)
[2018-03-12] MEDS: fentaNYL 10 mcg/mL Premix Drip 2,500 MCG/250 ML BAG IV.SIG PRN (22:38)
[2018-03-13] MEDS: Artificial Tears Opth Drops 15 ML Bottle EACH EYE SCH ×3 (00:16→18:50)
[2018-03-13] MEDS: Oral Hygiene Kit OROPHARYNG SCH ×5 (00:16→23:27)
[2018-03-13] MEDS: hydrALAZINE 25 MG Tablet PO SCH ×5 (00:16→23:27)
[2018-03-13] MEDS: Propofol 1000 mg/100 ml Inj 1,000 MG/100 ML BOTTLE IV.CONT PRN ×2 (02:28→10:26)
[2018-03-13 04:01] LABS: Bacteria,Urine Rare /hpf; Bilirubin,Urine Negative (Negative); Clarity,Urine Hazy (Clear); Color,Urine Yellow (Yellw/Straw); Glucose,Urine (UA) Negative (Negative); Hyaline Casts,Urine 6 /lpf (0-3); Leukocyte Esterase,Urine Small (Negative); Mucus,Urine Few /lpf (Occasional); Nitrite,Urine Negative (Negative); Specific Gravity,Urine 1.018 (1.002-1.035)
[2018-03-13 04:20] LABS: Baso % (Auto) 0.1 % (0.0-2.0); Eos # (Auto) 0.1 th/mm3 (0.0-0.4); Eos % (Auto) 0.9 % (0.0-4.0); Hematocrit 38.9 % (39.0-51.0); Hemoglobin 12.4 gm/dL (13.0-17.0); Lymph # (Auto) 0.9 th/mm3 (1.0-4.8); Mean Corpuscular Hemoglobin 31.2 pg (27.0-34.0); Mean Corpuscular Volume 97.6 fL (80.0-100.0); Mean Platelet Volume 7.9 fL (7.0-11.0); Mono # (Auto) 0.8 th/mm3 (0.0-0.9); Mono % (Auto) 7.3 % (0.0-8.0); Neut # (Auto) 9.1 th/mm3 (1.8-7.7); Neut % (Auto) 83.7 % (16.0-70.0); Platelet Count 248 th/mm3 (150-450); Red Blood Count 3.99 mil/mm3 (4.50-5.90); Red Cell Distribution Width 13.9 % (11.6-17.2); White Blood Count 10.8 th/mm3 (4.0-11.0)
[2018-03-13 04:44] LABS: Alanine Aminotransferase 17 U/L (12-78); Albumin 2.6 g/dL (3.4-5.0); Alkaline Phosphatase 85 U/L (45-117); Anion Gap 5 meq/L (5-15); Aspartate Aminotransferase 36 U/L (15-37); Blood Urea Nitrogen 21 mg/dL (7-18); Calcium 8.5 mg/dL (8.5-10.1); Carbon Dioxide 31.9 meq/L (21.0-32.0); Chloride 119 meq/L (98-107); Glomerular Filtration Rate Greater Than 89 mL/min (>89); Glucose,Random 129 mg/dL (74-106); Magnesium 3.3 mg/dL (1.5-2.5); Phosphorus 4.2 mg/dL (2.5-4.9); Potassium 3.9 meq/L (3.5-5.1); Total Protein 7.6 g/dL (6.4-8.2)
[2018-03-13 04:47] LABS: Sodium 156 meq/L (136-145)
--- NOTE | 2018-03-13 05:17 | XR ---
EXAM DATE: 03/13/2018 5:07 AM EDT AGE/SEX: 62 years / Male INDICATIONS: Respiratory failure. CLINICAL DATA: This is the patient's subsequent encounter. Patient reports that signs and symptoms h ave been present for 1 week and indicates a pain score of Nonresponsive. MEDICAL/SURGICAL HISTORY: Chronic obstructive pulmonary disease. Asthma. None. COMPARISON: [facility] – [place], CHEST 1V SINGLE AP, 03/11/2018. . FINDINGS: Single AP view of the chest. Endotracheal tube, nasogastric tube, and right IJ central venous cathete r remain in place. Lungs are clear. Cardiomediastinal silhouette within normal limits. No evidence of pleural effusion or pneumothorax. CONCLUSION: No acute cardiopulmonary disease identified. Electronically signed by: Ray Ramey MD 03/13/2018 5:16 AM EDT
[2018-03-13] MEDS: Chlorhexidine 0.12% Oral Kit 15 ML UDC OROPHARYNG SCH ×4 (09:26→21:10)
[2018-03-13] MEDS: Docusate Sodium Liq 100 MG/10 ML UDC NG/OG SCH ×2 (09:27→21:08)
[2018-03-13] MEDS: amLODIPine 10 MG Tablet NG/OG SCH (09:27)
[2018-03-13] MEDS: Folic Acid 1 MG Tablet PO SCH (09:27)
[2018-03-13] MEDS: Polyethylene Glycol 3350 17 GM Packet NG/OG SCH ×2 (09:29→21:10)
[2018-03-13] MEDS: Sennosides Liq 8.8 MG/5 ML UDC NG/OG SCH ×2 (09:30→21:09)
[2018-03-13] MEDS ORDERED: Mineral Oil Enema 118 ML Bottle RECTAL ONE (10:40)
[2018-03-13] MEDS ORDERED: Mineral Oil 55% Emulsion 480 ML PO ONE (10:40)
[2018-03-13] MEDS ORDERED: Magnesium Citrate Liq 300 ML Bottle PO ONE (10:41)
--- NOTE | 2018-03-13 10:46 | P.PNCC ---
Subjective Subjective Remarks/Hospital Course: 03/03: 62-year-old -[place] male with past medical history of COPD/asthma , tobacco abuse, daily alcohol use who presented to [facility] emergency department after a fall. Patient told EM provider that he was mopping the floor with some chemicals when he felt lightheaded and fell hitting the back of his head. Patient complained of vertigo. CT brain showed right frontal intraparenchymal hemorrhage 5 x 3.3 cm with subarachnoid hemorrhage bilateral frontal lobes, right parietal and right temporal lobes. There is a component of acute subdural hematoma along the right frontoparietal lobe that is 6 mm. There is 4 mm of subfalcine herniation to the left. He is not on anticoagulation but takes aspirin daily. He complained of headache and has received Dilaudid 0.2 mg IV in the ED. BP went up to 183/99 and he was started on Cardene and BP now 144/74 on 5mg/hr. He denied nausea, vomiting, cough, fevers or chills. CTA brain/neck demonstrate no vascular abnormality. He has been admitted by Dr. Dolan and [facility] has been consulted to assist in medical management of ICH as well as workup for syncope. He said that his son had brought him to the emergency department for evaluation however upon evaluation in the ED the son was not present and there was no phone number available for him. 03/04: Resting in bed. Drowsy, arousable. Not following commands. 03/05: Resting in bed. Drowsy, easily arousable. Squeezes with both hands on command. 03/06: More awake, following commands. Dysarthric. Left-sided weakness persists. 03/07 Patient is awake on room air oxygen when seen. Follows commands. 03/08 Reportedly was cooperative and conversant with PT yesterday, oriented x3. Today will follow commands but is lethargic, no comprehensible words. No witnessed seizure. 03/09 CT brain yesterday with evolving R frontal lobe hematoma, vasogenic edema with 2.2 cm right to left midline shift. EEG mild encephalopathy, no seizure. He continues to protect his airway, follows commands on the right. 03/10: Awake and alert. Follows commands on the right. Protecting airway currently. On 3% saline. 03/11:Drowsy, easily arousable at the time of my evaluation this morning, moves right upper and lower extremity. speech unclear (mumbles). 03/12: Intubated yesterday secondary to altered mental status and copious thick secretions. Tube feeds of been resumed. Bowel regimen resume. SUBJECTIVE: 03/13: Afebrile. Lessening sedation. Off will follow commands right upper extremity. Withdraws bilateral x-rays. Flaccid left upper extremity. Tolerating tube feeds. Disimpacted yesterday. Not sufficiently abdomen still distended will check CT abdomen/pelvis with oral contrast today Objective Vital Signs / I&O: Vital Signs 03/12/18 11:00 03/12/18 11:44 03/12/18 12:00 Temperature Pulse Rate 108 H 110 H Respiratory Rate 10 L 10 L 19 Blood Pressure 120/75 Pulse Oximetry 97 97 03/12/18 16:00 03/12/18 17:27 03/12/18 20:00 Temperature 102.0 F H 100 F H Pulse Rate 116 H 106 H 101 H Respiratory Rate 33 H 15 17 Blood Pressure 134/93 H 109/71 Pulse Oximetry 98 99 03/12/18 20:20 03/12/18 20:22 03/12/18 22:00 Temperature Pulse Rate 98 H 103 H Respiratory Rate 15 15 Blood Pressure Pulse Oximetry 99 03/13/18 00:00 03/13/18 01:10 03/13/18 01:11 Temperature 100.6 F H Pulse Rate 101 H 101 H Respiratory Rate 15 15 15 Blood Pressure 104/68 Pulse Oximetry 100 100 03/13/18 02:00 03/13/18 03:52 03/13/18 04:00 Temperature 100.8 F H Pulse Rate 110 H 105 H 108 H Respiratory Rate 15 15 Blood Pressure 121/77 Pulse Oximetry 99 03/13/18 04:13 03/13/18 06:00 03/13/18 07:00 Temperature Pulse Rate 105 H 99 H Respiratory Rate 18 15 Blood Pressure Pulse Oximetry 100 03/13/18 07:50 Temperature Pulse Rate Respiratory Rate 15 Blood Pressure Pulse Oximetry 99 Intake & Output 03/12/18 03/13/18 03/13/18 18:59 06:59 18:59 Intake Total 355 / 355 926 / 926 100 / 100 Output Total 825 / 825 Balance 355 / 355 101 / 101 100 / 100 Weight 59.9 kg Intake: IV 355 / 355 205 / 205 100 / 100 Diprivan 1000 mg/100 ml Inj 1, 100 / 100 100 / 100 000 mg In 100 ml @ 5 MCG/KG/MIN 1.821 mls/hr IV.CONT TITRATE PRN Rx#:[id number] fentaNYL 10 mcg/mL Premix Drip 250 / 250 2,500 mcg In 250 ml @ 50 MCG/HR 5 mls/hr IV.SIG TITRATE PRN Rx #:[id number] Keppra Inj 500 MG In NS Inj 100 105 / 105 105 / 105 ML @ 400 mls/hr IV.SIG Q12H PEDRO LUIS Rx#:[id number] Oral 0 / 0 Tube Feeding 601 / 601 Water Bolus Amount 120 / 120 Output: Urine Amount (Catheter) 825 / 825 Indwelling Temp Sensing 825 / 825 Catheter Other: Date of Last Bowel Movement 03/02/18 03/02/18 # Bowel Movements 0 Result Diagrams: 03/13/18 03:51 03/13/18 03:51 Other Results: Microbiology 03/12/18 01:15 Sputum - Endotracheal Gram Stain - Final Imaging: ITS Impressions Head CT 03/08/18 11:20 CONCLUSION: 1. Large area of evolving hematoma right frontal lobe with increasing vasogenic edema and [id number] midline shift now 2.2 cm. This is more prominent on current study. 2. Small right subdural hematoma measures 5 mm not significantly changed. Abdomen X-Ray 03/09/18 00:00 CONCLUSION: Adequate placement of a nasogastric tube Chest X-Ray 03/09/18 17:43 CONCLUSION: NG and left central line in good position. No acute findings. Chest X-Ray 03/11/18 00:00 CONCLUSION: 1. ET tube in good position. 2. No evidence of pneumothorax. Head CT 03/11/18 00:00 CONCLUSION: 1. No significant change in the large intraparenchymal hemorrhage surrounded by edema involving most of the right frontal lobe. 2. No significant change with the 4 mm right subdural hematoma. 3. There continues to be mass effect and midline shift to the left by approximately 1.1 cm. Chest X-Ray 03/11/18 13:00 CONCLUSION: Support apparatus as above. No acute findings. Abdomen X-Ray 03/12/18 00:00 CONCLUSION: Gaseous distention of bowel loops, not significantly changed. Chest X-Ray 03/13/18 12:09 CONCLUSION: No acute cardiopulmonary disease identified. Objective Remarks: GENERAL: 62-year-old -[place] male poorly nourished currently orotracheally intubated SKIN: Warm and dry. HEAD: Normocephalic. EYES: Pupils 3 mm and reactive to pinpoint bilaterally. No scleral icterus. No injection or drainage. ENT: No nasal bleeding or discharge. Mucous membranes pink and moist, very poor dentition. NECK: Trachea midline. No JVD. CARDIOVASCULAR: RRR. S1, S2. No S4. No murmurs rubs or gallops. RESPIRATORY: Transmitted upper airway sounds/coarse rhonchorous breath sounds appreciated. No wheezing GASTROINTESTINAL: Abdomen somewhat distended. Nontender. Hypoactive bowel sounds are appreciated. MUSCULOSKELETAL: Extremities without clubbing, cyanosis, or edema. No obvious deformities. NEUROLOGICAL: Left facial droop. Pupils equal and reactive as per above. Spontaneous movement right upper and lower extremity. Withdraws left lower extremity. Assessment and Plan - Assessment and Plan Plan: NEURO/Psych: Right frontal intraparenchymal hemorrhage 53.3 cm. Subarachnoid hemorrhage bilat frontal lobes, right parietal lobe, right temporal. Right frontotemporal subdural hematoma 6 mm with 4 mm right to left shift. Mechanical fall Possible syncopal event Daily alcohol use Cocaine abuse Propofol at 30 mcg/kg/min/fentanyl drip will be discontinued secondary to constipation for sedation/analgesia while intubated Goal of RASS -[address] brain 03/11 revealed no significant change in the large intraparenchymal hemorrhage surrounded by edema involving most of the right frontal lobe. No significant change with the 4 mm right subdural hematoma. There continues to be mass effect and midline shift to the left by approximately 1.[address] 03/08 with evolution of hemorrhage, vasogenic edema with increased midline shift, 2.2 cm. Currently holding mannitol 25 gram IV q6 in light of elevated serum positive, will continue hyperosmolar therapy and target sodium of 150 -155. 3% saline held due to current sodium 155 EEG 03/09 revealed moderate encephalopathy, no seizures. Written for nicardipine to maintain systolic blood pressure less than 140, Levetiracetam 500 mg IV every 12 hours CTA brain and neck 03/03/[address] C-spine -negative for acute injury Acetaminophen 650 mg every 6 hours as needed for temp >100.4 Dr. Dolan admitted Daily thiamine, folate and multivitamin Likely through winter for DTs. RESP: Acute respiratory failure Tobacco abuse [facility] /09/10/39 Ventilator bundle Albuterol/ipratropium aerosols every 4 hours with albuterol aerosols every 2 hours as needed for dyspnea Spontaneous breathing trials when clinically indicated Follow-up in a.m. since chest x-ray 03/13 revealed no acute cardiopulmonary findings Tobacco cessation counseling when he is alert and able to participate. CV: Essential hypertension Monitor HR and BP keep MAP>65mmHg Currently on hydralazine 25mg Q6, amlodipine 10 daily. labetalol 10 mg IV every 2 hours prn, clonidine 0.1 mg every 6 hours prn Nicardipine drip to maintain SBP <140 as per above. GI:. Constipation Tube feeds with Jevity 1.5 goal 55 cc an hour per nutrition recommendations Lansoprazole for GI prophylaxis Docusate serum/senna 1 tablet twice daily for bowel regimen. Polyethylene glycol 17 g twice daily, lactulose 30 cc 4 times daily, mineral oil 30 cc 1. Methylnaltrexone 12 mg subcu 1 now. Mineral oil enema/soapsuds enema 1 now. KUB 03/12 revealed nonspecific bowel gas pattern. Check CT brain/pelvis with oral contrast today Disimpacted 03/12 with minimal stool FEN/RENAL: Hypernatremia Hyper magnesium Monitor renal function, I/O's, electrolyte replacement protocol. Recheck BMP in a.m. Remove all magnesium products from NOV. Do not give mag products for constipation ID: Monitor for signs and symptoms of infection. Sputum 03/12 pending HEME: Normocytic anemia Monitor CBC ENDO: Scale insulin aspart insulin Accu-Cheks every 6 hours to maintain euglycemia PROPH: SCDs and teds for DVT prophylaxis. Pharmacologic DVT prophylaxis is contraindicated due to intracerebral hemorrhage. Hospital for stress ulcer prophylaxis ACCESS: VITOR CVL. Level 3 follow-up
[2018-03-13] MEDS ORDERED: Methylnaltrexone Inj 12 MG/0.6 ML Vial SQ ONE (10:48)
[2018-03-13] MEDS ORDERED: Diatrizoate Meglum/Diatrizoate Sod Liq 9 ML UDC PO ONE (11:27)
[2018-03-13 14:33] LABS: Sodium 156 meq/L (136-145)
--- NOTE | 2018-03-13 18:48 | CT ---
EXAM DATE: 03/13/2018 6:40 PM EDT AGE/SEX: 62 years / Male INDICATIONS: Abdominal distention. CLINICAL DATA: This is the patient's initial encounter. Patient reports that signs and symptoms have been present for 1 day and indicates a pain score of Nonresponsive. MEDICAL/SURGICAL HISTORY: Chronic obstructive pulmonary disease. Stroke. None. RADIATION DOSE: 11.35 CTDI (mGy) COMPARISON: No prior exams available for comparison. TECHNIQUE: Multiple contiguous axial images were obtained through the abdomen. Images were obtained using multiple row detector helical technique. Using automated exposure control and adjustment of the mA and/or kV according to patient size, radiation dose was kept as low as reasonably achievable to o btain optimal diagnostic quality images. DICOM format image data is available electronically for rev iew and comparison. FINDINGS: There is minimal dependent atelectasis on the right. Trace right pleural fluid. NG coiled in stomach. No acute findings in the liver, spleen, adrenals, kidneys or pancreas. No calcified gallstones. There is moderate constipation with rectal distention to 8 cm. Dodge catheter in decompressed bladder . CONCLUSION: 1. Moderate constipation with diffuse ileus. Rectum distended to 8 cm with stool. No small bowel obs truction. No significant free fluid. No free air. 2. Dodge catheter in bladder. NG coiled in stomach. Trace right pleural effusion. Electronically signed by: Nikita Guerra MD 03/13/2018 6:46 PM EDT
--- NOTE | 2018-03-13 19:36 | P.PNNS ---
Subjective Interval history: Nurses report no change in patient. Still intubated Physical Exam Vital signs: Vital Signs 03/12/18 20:00 03/12/18 20:20 03/12/18 20:22 Temperature 100 F H Pulse Rate 101 H 98 H Respiratory Rate 17 15 15 Blood Pressure 109/71 Pulse Oximetry 99 99 03/12/18 22:00 03/13/18 00:00 03/13/18 01:10 Temperature 100.6 F H Pulse Rate 103 H 101 H 101 H Respiratory Rate 15 15 Blood Pressure 104/68 Pulse Oximetry 100 03/13/18 01:11 03/13/18 02:00 03/13/18 03:52 Temperature Pulse Rate 110 H 105 H Respiratory Rate 15 15 Blood Pressure Pulse Oximetry 100 03/13/18 04:00 03/13/18 04:13 03/13/18 06:00 Temperature 100.8 F H Pulse Rate 108 H 105 H Respiratory Rate 15 18 Blood Pressure 121/77 Pulse Oximetry 99 100 03/13/18 07:00 03/13/18 07:50 03/13/18 11:40 Temperature Pulse Rate 99 H 90 Respiratory Rate 15 15 15 Blood Pressure Pulse Oximetry 99 03/13/18 11:41 03/13/18 16:20 03/13/18 16:22 Temperature Pulse Rate 103 H Respiratory Rate 14 15 15 Blood Pressure Pulse Oximetry 98 Intake & Output 03/13/18 03/13/18 03/14/18 06:59 18:59 06:59 Intake Total 926 / 926 600 / 600 Output Total 825 / 825 Balance 101 / 101 600 / 600 Weight 59.9 kg Intake: IV 205 / 205 600 / 600 Diprivan 1000 mg/100 ml Inj 1, 100 / 100 100 / 100 000 mg In 100 ml @ 5 MCG/KG/MIN 1.821 mls/hr IV.CONT TITRATE PRN Rx#:[id number] Sodium Chloride 3% Inj 500 ML @ 500 / 500 30 mls/hr IV.SIG Q24H PEDRO LUIS Rx#: [id number] Keppra Inj 500 MG In NS Inj 100 105 / 105 ML @ 400 mls/hr IV.SIG Q12H PEDRO LUIS Rx#:[id number] Oral 0 / 0 Tube Feeding 601 / 601 Water Bolus Amount 120 / 120 Output: Urine Amount (Catheter) 825 / 825 Indwelling Temp Sensing 825 / 825 Catheter Other: Date of Last Bowel Movement 03/02/18 03/02/18 # Bowel Movements 0 Narrative: Very lethargic, awakens at times when stimulated Remains intubated on sedation - Urinary Catheter Management Indwelling Temp Sensing Catheter Cath placed during this visit: yes Reason for continuing: Acute urinary retention Insertion date: 03/12/18 Insertion time: 05:30 Assessment and Plan - Plan Patient unchanged. Continue close support
[2018-03-13 22:13] LABS: Sodium 154 meq/L (136-145)
[2018-03-14] MEDS: Artificial Tears Opth Drops 15 ML Bottle EACH EYE SCH ×3 (00:41→17:32)
[2018-03-14] MEDS: Propofol 1000 mg/100 ml Inj 1,000 MG/100 ML BOTTLE IV.CONT PRN ×3 (02:20→18:31)
--- NOTE | 2018-03-14 05:01 | XR ---
EXAM DATE: 03/14/2018 4:49 AM EDT AGE/SEX: 62 years / Male INDICATIONS: Respiratory failure. CLINICAL DATA: This is the patient's subsequent encounter. Patient reports that signs and symptoms h ave been present for 1 week and indicates a pain score of Nonresponsive. MEDICAL/SURGICAL HISTORY: . Chronic obstructive pulmonary disease. Asthma. None. COMPARISON: [facility], CHEST 1V SINGLE AP, 03/13/2018. . FINDINGS: Stable ETT, left IJ central line and NGT. No significant focal pleural or parenchymal opacities. Card iomediastinal contours are stable. Remainder of the exam is unchanged. CONCLUSION: 1. Stable tubes and lines. 2. No acute abnormality or significant interval change. Electronically signed by: Carlitos Carson MD 03/14/2018 4:59 AM EDT
--- NOTE | 2018-03-14 05:02 | XR ---
EXAM DATE: 03/14/2018 4:56 AM EDT AGE/SEX: 62 years / Male INDICATIONS: Distention. CLINICAL DATA: This is the patient's initial encounter. Patient reports that signs and symptoms have been present for 1 day and indicates a pain score of Nonresponsive. MEDICAL/SURGICAL HISTORY: . Chronic obstructive pulmonary disease. Asthma. None. COMPARISON: [facility] – [place], [place], CT ABDOMEN & PELVIS W/O CONTRAST, 03/13/2018. . FINDINGS: Persistent mild diffuse gaseous distention of the colon with air noted extending to the rec yolis. No pneumatosis or gross free air. General paucity of small bowel. No abnormal calcifications. T he osseous structures are unremarkable. CONCLUSION: 1. Findings consistent with colonic ileus. Electronically signed by: Carlitos Carson MD 03/14/2018 5:01 AM EDT
[2018-03-14] MEDS: hydrALAZINE 25 MG Tablet PO SCH ×3 (05:37→17:31)
[2018-03-14] MEDS: Oral Hygiene Kit OROPHARYNG SCH ×3 (05:37→15:04)
[2018-03-14 06:12] LABS: Baso % (Auto) 0.3 % (0.0-2.0); Eos # (Auto) 0.1 th/mm3 (0.0-0.4); Eos % (Auto) 0.4 % (0.0-4.0); Hematocrit 36.7 % (39.0-51.0); Hemoglobin 11.9 gm/dL (13.0-17.0); Lymph # (Auto) 0.7 th/mm3 (1.0-4.8); Mean Corpuscular HGB Conc 32.6 % (32.0-36.0); Mean Corpuscular Hemoglobin 31.4 pg (27.0-34.0); Mean Corpuscular Volume 96.5 fL (80.0-100.0); Mean Platelet Volume 7.9 fL (7.0-11.0); Mono # (Auto) 0.8 th/mm3 (0.0-0.9); Mono % (Auto) 6.3 % (0.0-8.0); Neut # (Auto) 10.7 th/mm3 (1.8-7.7); Platelet Count 247 th/mm3 (150-450); Red Cell Distribution Width 13.4 % (11.6-17.2); White Blood Count 12.2 th/mm3 (4.0-11.0)
[2018-03-14 06:35] LABS: Albumin 2.4 g/dL (3.4-5.0); Anion Gap 6 meq/L (5-15); Aspartate Aminotransferase 36 U/L (15-37); Blood Urea Nitrogen 16 mg/dL (7-18); Calcium 8.3 mg/dL (8.5-10.1); Carbon Dioxide 31.9 meq/L (21.0-32.0); Chloride 115 meq/L (98-107); Glomerular Filtration Rate Greater Than 89 mL/min (>89); Glucose,Random 129 mg/dL (74-106); Magnesium 2.9 mg/dL (1.5-2.5); Potassium 3.9 meq/L (3.5-5.1); Sodium 153 meq/L (136-145)
[2018-03-14 06:38] LABS: Alanine Aminotransferase 16 U/L (12-78); Alkaline Phosphatase 56 U/L (45-117); Phosphorus 3.8 mg/dL (2.5-4.9); Total Protein 7.6 g/dL (6.4-8.2)
[2018-03-14 06:39] LABS: Creatine Kinase 90 U/L (39-308)
[2018-03-14] MEDS: Chlorhexidine 0.12% Oral Kit 15 ML UDC OROPHARYNG SCH ×3 (07:57→21:11)
[2018-03-14] MEDS: Folic Acid 1 MG Tablet PO SCH (09:16)
[2018-03-14] MEDS: Docusate Sodium Liq 100 MG/10 ML UDC NG/OG SCH ×2 (09:16→21:11)
[2018-03-14] MEDS: Polyethylene Glycol 3350 17 GM Packet NG/OG SCH ×2 (09:17→21:12)
[2018-03-14] MEDS: amLODIPine 10 MG Tablet NG/OG SCH (09:17)
[2018-03-14] MEDS: Sennosides Liq 8.8 MG/5 ML UDC NG/OG SCH ×2 (09:18→21:12)
--- NOTE | 2018-03-14 09:23 | P.CONGI ---
History of Present Illness Consult date: 03/14/18 Consult reason: Colonic ileus Chief complaint: Ich, Sah, Syncope History of Present Illness: This is a 62 yo M with PMH significant for COPD/asthma, tobacco abuse, ETOH abuse who presented to the ER on 03/03 after a fall while mopping the floor. Pt is currently admitted to ICU and being managed for intraparenchymal hemorrhage, subarachnoid hemorrhage, frontotemporal subdural hematoma. Our service has been consulted to evaluated pt for colonic ileus. Pt has already been placed on a bowel regimen by [facility] and received a dose of Relistor and imaging this morning continues to reveal colonic ileus and exam reveals distended abdomen. Pt is on Propofol for sedation and orally intubated therefore all history was obtained through chart review. Review of Systems unobtainable due to endotracheal tube Medications and Allergies Active Medications: Active Medications Acetaminophen (Tylenol Liq) 650 mg NG/OG Q6H PRN PRN Reason: FEVER Last Admin: 03/13/18 06:31 Dose: 650 mg Al Hydrox/Mg Hydrox/Simethicone (Mag-Al Plus Susp Liq) 30 ml PO Q6H PRN PRN Reason: DYSPEPSIA Albuterol (Albuterol Neb (Prn)) 2.5 mg NEB Q2HR NEB PRN PRN Reason: WHEEZING Albuterol (Duoneb Neb (Samson)) 1 ampul NEB Q4HR NEB SAMSON Last Admin: 03/14/18 08:45 Dose: 1 ampul Amlodipine Besylate (Norvasc) 10 mg NG/OG DAILY SAMSON Last Admin: 03/13/18 09:27 Dose: 10 mg Artificial Tears (Tears Naturale Opth Drops) 1 drop EACH EYE Q8H SAMSON Last Admin: 03/14/18 00:41 Dose: 1 drop Bisacodyl (Dulcolax Supp) 10 mg RECTAL DAILY PRN PRN Reason: SEVERE CONSITIPATION Last Admin: 03/12/18 14:33 Dose: 10 mg Chlorhexidine Gluconate (Peridex 0.12% Oral Kit) 15 ml OROPHARYNG BID@799, 1999 PENDING SALE TO [facility] Last Admin: 03/14/18 07:57 Dose: Not Given Chlorhexidine Gluconate (Peridex 0.12% Oral Kit) 15 ml OROPHARYNG BID@799, 1999 PENDING SALE TO [facility] Last Admin: 07/08/18 21:10 Dose: 15 ml Clonidine HCl (Catapres) 0.1 mg PO Q6H PRN PRN Reason: SYS BP GREATER THAN 170 MMHG Last Admin: 03/09/18 15:16 Dose: 0.1 mg Docusate Sodium (Colace Liq) 100 mg NG/OG BID PENDING SALE TO [facility] Last Admin: 03/13/18 21:08 Dose: 100 mg Folic Acid (Folic Acid) 1 mg PO DAILY PENDING SALE TO [facility] Last Admin: 03/13/18 09:27 Dose: 1 mg Guaifenesin (Tobitussin Liq) 400 mg NG/OG Q8H PENDING SALE TO [facility] Last Admin: 03/14/18 05:37 Dose: 400 mg Hydralazine HCl (Apresoline) 25 mg PO Q6H PENDING SALE TO [facility] Last Admin: 03/14/18 05:37 Dose: 25 mg Levetiracetam 500 mg/ Sodium (Chloride) 105 mls @ 400 mls/hr IV.SIG Q12H PENDING SALE TO [facility] Last Admin: 03/13/18 21:10 Dose: 400 mls/hr Potassium Chloride (Kcl 40 Meq Premix Inj) 40 meq in 100 mls @ 50 mls/hr IV.SIG Q2H PRN PRN Reason: For Potassium 2.8 - 3.2 mEq/L Potassium Chloride (Kcl 20 Meq Premix Inj) 20 meq in 100 mls @ 50 mls/hr IV.SIG Q2H PRN PRN Reason: For Potassium 2.8 - 3.2 mEq/L Last Admin: 03/09/18 14:29 Dose: 50 mls/hr Potassium Chloride (Kcl 40 Meq Premix Inj) 40 meq in 100 mls @ 25 mls/hr IV.SIG UNSCH PRN PRN Reason: For Potassium 3.3 - 3.5 mEq/L Potassium Chloride (Kcl 20 Meq Premix Inj) 20 meq in 100 mls @ 50 mls/hr IV.SIG Q2H PRN PRN Reason: For Potassium 3.3 - 3.5 mEq/L Sodium Phosphate 30 mmol/ (Sodium Chloride) 250 mls @ 42 mls/hr IV.SIG UNSCH PRN PRN Reason: For Phosphorus < 2.5 mg/dL Potassium Phosphate 30 mmol/ (Sodium Chloride) 260 mls @ 42 mls/hr IV.SIG UNSCH PRN PRN Reason: SEE LABEL COMMENTS Nicardipine HCl 50 mg/ Sodium (Chloride) 520 mls @ 27 mls/hr IV.SIG TITRATE PRN PRN Reason: Blood pressure management Last Infusion: 03/11/18 20:30 Dose: 0 mls/hr Sodium Chloride (Sodium Chloride 3% Inj) 500 mls @ 10 mls/hr IV.SIG Q24H SAMSON Last Admin: 03/13/18 18:49 Dose: Not Given Propofol (Diprivan 1000 Mg/100 Ml Inj) 1,000 mg in 100 mls @ 1.821 mls/hr IV.CONT TITRATE PRN; Protocol PRN Reason: Per Protocol Last Admin: 03/14/18 02:20 Dose: 20 mcg/kg/min, 7.28 mls/hr Lactated Ringer's (Lr 1000 Ml Inj) 1,000 mls @ 65 mls/hr IV.CONT .[id number] PENDING SALE TO [facility] Last Admin: 03/13/18 21:15 Dose: 65 mls/hr Labetalol HCl (Trandate Inj) 10 mg IV.PUSH Q2HR PRN PRN Reason: SBP greater than 140mm Hg Last Admin: 03/09/18 15:21 Dose: 10 mg Lactulose (Lactulose Liq) 30 ml PO DAILY PRN PRN Reason: SEVERE CONSITIPATION Last Admin: 03/11/18 09:28 Dose: 30 ml Lactulose (Lactulose Liq) 30 ml PO QID PENDING SALE TO [facility] Last Admin: 03/13/18 21:08 Dose: 30 ml Lansoprazole (Prevacid Solutab) 30 mg NG/OG DAILY PENDING SALE TO [facility] Last Admin: 03/13/18 09:30 Dose: 30 mg Lorazepam (Ativan Inj) 1 mg IV.PUSH Q1H PRN PRN Reason: SEIZURES Mannitol (Mannitol Inj) 12.5 gm IV.SIG Q6H SAMSON Last Admin: 03/14/18 07:57 Dose: Not Given Menthol ([place]) 1 lozenge BUCCAL UNSCH PRN PRN Reason: SORE THROAT Metoclopramide HCl (Reglan Inj) 5 mg IV.PUSH Q8HR SAMSON; Protocol Last Admin: 03/14/18 05:36 Dose: 5 mg Multivitamins (Theragran) 1 tab PO DAILY PENDING SALE TO [facility] Last Admin: 03/13/18 09:27 Dose: 1 tab Ondansetron HCl (Zofran Inj) 4 mg IV.PUSH Q6H PRN PRN Reason: NAUSEA OR VOMITING Polyethylene Glycol (Miralax) 17 gm NG/OG BID PENDING SALE TO [facility] Last Admin: 03/13/18 21:10 Dose: 17 gm Potassium Bicarb/Potassium Chloride (K-Lyte) 50 meq PO UNSCH PRN PRN Reason: For Potassium 3.3 - 3.5 mEq/L Last Admin: 03/11/18 20:03 Dose: 50 meq Potassium Phosphate (K-Phos Original) 2,000 mg PO Q4H PRN PRN Reason: For Phosphorus < 2.5 mg/dL Potassium Phosphate (K-Phos Original) 2,000 mg PO UNSCH PRN PRN Reason: SEE LABEL COMMENTS Promethazine HCl (Phenergan Inj) 25 mg IM Q4H PRN PRN Reason: NAUSEA OR VOMITING Sennosides (Senokot) 17.2 mg PO Q12H PRN PRN Reason: MODERATE - SEVERE CONSTIPATION Last Admin: 03/11/18 20:02 Dose: 17.2 mg Sennosides (Senna Liq) 8.8 mg NG/OG BID PENDING SALE TO [facility] Last Admin: 03/13/18 21:09 Dose: 8.8 mg Sodium Chloride (Ns Flush) 2 ml IV.FLUSH UNSCH PRN PRN Reason: FLUSH AFTER USING IV ACCESS Sodium Chloride (Ns Flush) 2 ml IV.FLUSH BID PENDING SALE TO [facility] Last Admin: 03/13/18 21:09 Dose: 2 ml Sodium Chloride (Sodium Chloride 3% Neb) 2 ml NEB Q4HR NEB PENDING SALE TO [facility] Stop: 03/17/18 15:59 Last Admin: 03/14/18 08:45 Dose: 2 ml Thiamine HCl (Vitamin B1) 100 mg PO BID PENDING SALE TO [facility] Last Admin: 03/13/18 21:09 Dose: 100 mg Allergies Allergy/AdvReac Type Severity Reaction Status Date / Time No Known Allergies Allergy Unknown Uncoded 03/03/18 20:43 Home Medications Medication Instructions Recorded Confirmed Type aspirin 325 mg PO DAILY 03/05/18 03/05/18 History Exam Vital signs: Vital Signs 03/13/18 10:00 03/13/18 11:40 03/13/18 11:41 Temperature Pulse Rate 103 H 90 Respiratory Rate 15 14 Blood Pressure Pulse Oximetry 03/13/18 12:00 03/13/18 16:00 03/13/18 16:20 Temperature 99.7 F H 100.0 F H Pulse Rate 103 H 107 H Respiratory Rate 19 20 15 Blood Pressure 132/74 142/78 H Pulse Oximetry 99 98 98 03/13/18 16:22 03/13/18 18:00 03/13/18 19:53 Temperature Pulse Rate 103 H 103 H 117 H Respiratory Rate 15 18 Blood Pressure Pulse Oximetry 03/13/18 19:55 03/13/18 20:00 03/13/18 22:00 Temperature 100.6 F H Pulse Rate 106 H 110 H Respiratory Rate 15 15 Blood Pressure 131/83 Pulse Oximetry 99 99 03/14/18 00:00 03/14/18 00:16 03/14/18 00:18 Temperature 100.6 F H Pulse Rate 110 H 110 H Respiratory Rate 15 15 15 Blood Pressure 134/81 Pulse Oximetry 97 100 03/14/18 02:00 03/14/18 03:48 03/14/18 03:49 Temperature Pulse Rate 107 H 103 H Respiratory Rate 15 15 Blood Pressure Pulse Oximetry 100 03/14/18 04:00 03/14/18 06:00 03/14/18 08:47 Temperature 99 F Pulse Rate 100 H 110 H 107 H Respiratory Rate 15 15 Blood Pressure 128/85 Pulse Oximetry 100 99 Intake & Output 03/13/18 03/14/18 03/14/18 18:59 06:59 18:59 Intake Total 1426 / 1426 220 / 220 Output Total 1575 / 1575 950 / 950 Balance -149 / -149 -730 / -730 Weight 61 kg Intake: IV 705 / 705 100 / 100 Diprivan 1000 mg/100 ml Inj 1, 100 / 100 100 / 100 000 mg In 100 ml @ 5 MCG/KG/MIN 1.821 mls/hr IV.CONT TITRATE PRN Rx#:[id number] Sodium Chloride 3% Inj 500 ML @ 500 / 500 30 mls/hr IV.SIG Q24H SAMSON Rx#: [id number] Keppra Inj 500 MG In NS Inj 100 105 / 105 ML @ 400 mls/hr IV.SIG Q12H SAMSON Rx#:[id number] Oral 0 / 0 0 / 0 Tube Feeding 601 / 601 0 / 0 Water Bolus Amount 120 / 120 120 / 120 Output: Urine 750 / 750 Urine Amount (Catheter) 825 / 825 950 / 950 Indwelling Temp Sensing 825 / 825 950 / 950 Catheter Other: Date of Last Bowel Movement 03/02/18 03/14/18 # Bowel Movements 0 3 - Constitutional mild distress - Routine HEENT Exam Head: Present: normocephalic, atraumatic - Routine Respiratory Exam Present: patient mechanically ventilated. Absent: accessory muscle use - Routine Cardiovascular Exam Present: RRR - Routine Abdominal Exam Present: normoactive bowel sounds, distended, firm. Absent: rebound, guarding Results - Labs CBC & Chem 7: 03/14/18 05:18 03/14/18 05:18 Labs: Laboratory Results - last 24 hr 03/13/18 03/13/18 03/13/18 13:17 13:17 21:36 WBC RBC Hgb Hct MCV MCH MCHC RDW Plt Count MPV Neut % (Auto) Lymph % (Auto) Reynolds % (Auto) Eos % (Auto) Baso % (Auto) Neut # (Auto) Lymph # (Auto) Reynolds # (Auto) Eos # (Auto) Baso # (Auto) WBC Differential Differential Comment Sodium 156 H* 154 H Potassium Chloride Carbon Dioxide Anion Gap BUN Creatinine Estimated GFR Random Glucose Osmolality 333 H 323 H Lactic Acid 1.4 Calcium Phosphorus Magnesium Total Bilirubin AST ALT Alkaline Phosphatase Ammonia Total Creatine Kinase Total Protein Albumin 03/14/18 03/14/18 03/14/18 05:18 05:18 05:18 WBC 12.2 H RBC 3.80 L Hgb 11.9 L Hct 36.7 L MCV 96.5 MCH 31.4 MCHC 32.6 RDW 13.4 Plt Count 247 MPV 7.9 Neut % (Auto) 87.0 H Lymph % (Auto) 6.0 L Reynolds % (Auto) 6.3 Eos % (Auto) 0.4 Baso % (Auto) 0.3 Neut # (Auto) 10.7 H Lymph # (Auto) 0.7 L Reynolds # (Auto) 0.8 Eos # (Auto) 0.1 Baso # (Auto) 0.0 WBC Differential . Differential Comment Auto diff final Sodium 153 H Potassium 3.9 Chloride 115 H Carbon Dioxide 31.9 Anion Gap 6 BUN 16 Creatinine 0.78 Estimated GFR Greater than 89 Random Glucose 129 H Osmolality Lactic Acid 1.0 Calcium 8.3 L Phosphorus 3.8 Magnesium 2.9 H Total Bilirubin 0.3 AST 36 ALT 16 Alkaline Phosphatase 56 Ammonia Total Creatine Kinase 90 Total Protein 7.6 Albumin 2.4 L 03/14/18 05:18 WBC RBC Hgb Hct MCV MCH MCHC RDW Plt Count MPV Neut % (Auto) Lymph % (Auto) Reynolds % (Auto) Eos % (Auto) Baso % (Auto) Neut # (Auto) Lymph # (Auto) Reynolds # (Auto) Eos # (Auto) Baso # (Auto) WBC Differential Differential Comment Sodium Potassium Chloride Carbon Dioxide Anion Gap BUN Creatinine Estimated GFR Random Glucose Osmolality Lactic Acid Calcium Phosphorus Magnesium Total Bilirubin AST ALT Alkaline Phosphatase Ammonia 33 H Total Creatine Kinase Total Protein Albumin - Imaging Impressions Abdomen/Pelvis CT 03/13/18 00:00 CONCLUSION: 1. Moderate constipation with diffuse ileus. Rectum distended to 8 cm with stool. No small bowel obstruction. No significant free fluid. No free air. 2. Dodge catheter in bladder. NG coiled in stomach. Trace right pleural effusion. Abdomen X-Ray 03/14/18 06:00 CONCLUSION: 1. Findings consistent with colonic ileus. Chest X-Ray 03/14/18 06:00 CONCLUSION: 1. Stable tubes and lines. 2. No acute abnormality or significant interval change. Assessment and Plan - Plan Assessment: - Colonic ileus Pt currently in ICU, admitted on 03/03 after a fall, being managed for intraparenchymal hemorrhage, subarachnoid hemorrhage, frontotemporal subdural hematoma- chronic ETOH abuse According to [facility] notes, pt has been manually disimpacted on 03/12 with minimal stool and placed on a bowel regimen as well as received a dose of Relistor on 03/12- abdomen remains distended and firm CT abdomen and pelvis WO Iv contrast (03/13) Moderate constipation with diffuse ileus. Rectum distended to 8 cm with stool. No small bowel obstruction. No significant free fluid. No free air. Dodge catheter in bladder. NG coiled in stomach. Trace right pleural effusion. KUB (03/14) Colonic ileus Plan: Red rectal tube to gravity Continue bowel regimen Reglan KUB in AM Further recommendations based on course Pt has been seen and examined by myself and Dr. Lane and this note is written on his behalf
--- NOTE | 2018-03-14 15:19 | P.PNCC ---
Subjective Subjective Remarks/Hospital Course: 03/03: 62-year-old -[place] male with past medical history of COPD/asthma , tobacco abuse, daily alcohol use who presented to [facility] emergency department after a fall. Patient told EM provider that he was mopping the floor with some chemicals when he felt lightheaded and fell hitting the back of his head. Patient complained of vertigo. CT brain showed right frontal intraparenchymal hemorrhage 5 x 3.3 cm with subarachnoid hemorrhage bilateral frontal lobes, right parietal and right temporal lobes. There is a component of acute subdural hematoma along the right frontoparietal lobe that is 6 mm. There is 4 mm of subfalcine herniation to the left. He is not on anticoagulation but takes aspirin daily. He complained of headache and has received Dilaudid 0.2 mg IV in the ED. BP went up to 183/99 and he was started on Cardene and BP now 144/74 on 5mg/hr. He denied nausea, vomiting, cough, fevers or chills. CTA brain/neck demonstrate no vascular abnormality. He has been admitted by Dr. Dolan and [facility] has been consulted to assist in medical management of ICH as well as workup for syncope. He said that his son had brought him to the emergency department for evaluation however upon evaluation in the ED the son was not present and there was no phone number available for him. 03/04: Resting in bed. Drowsy, arousable. Not following commands. 03/05: Resting in bed. Drowsy, easily arousable. Squeezes with both hands on command. 03/06: More awake, following commands. Dysarthric. Left-sided weakness persists. 03/07 Patient is awake on room air oxygen when seen. Follows commands. 03/08 Reportedly was cooperative and conversant with PT yesterday, oriented x3. Today will follow commands but is lethargic, no comprehensible words. No witnessed seizure. Subjective: 03/09 CT brain yesterday with evolving R frontal lobe hematoma, vasogenic edema with 2.2 cm right to left midline shift. EEG mild encephalopathy, no seizure. He continues to protect his airway, follows commands on the right. 03/09 CT brain yesterday with evolving R frontal lobe hematoma, vasogenic edema with 2.2 cm right to left midline shift. EEG mild encephalopathy, no seizure. He continues to protect his airway, follows commands on the right. 03/10: Awake and alert. Follows commands on the right. Protecting airway currently. On 3% saline. 03/11:Drowsy, easily arousable at the time of my evaluation this morning, moves right upper and lower extremity. speech unclear (mumbles). 03/12: Intubated yesterday secondary to altered mental status and copious thick secretions. Tube feeds of been resumed. Bowel regimen resume. SUBJECTIVE: 03/13: Afebrile. Lessening sedation. Off will follow commands right upper extremity. Withdraws bilateral x-rays. Flaccid left upper extremity. Tolerating tube feeds. Disimpacted yesterday. Not sufficiently abdomen still distended will check CT abdomen/pelvis with oral contrast today 03/14: Had small BM, abdomen not distended. Will hold pain meds to encourage bowel activity. Objective Vital Signs / I&O: Vital Signs 03/13/18 16:00 03/13/18 16:20 03/13/18 16:22 Temperature 100.0 F H Pulse Rate 107 H 103 H Respiratory Rate 20 15 15 Blood Pressure 142/78 H Pulse Oximetry 98 98 03/13/18 18:00 03/13/18 19:53 03/13/18 19:55 Temperature Pulse Rate 103 H 117 H Respiratory Rate 18 15 Blood Pressure Pulse Oximetry 99 03/13/18 20:00 03/13/18 22:00 03/14/18 00:00 Temperature 100.6 F H 100.6 F H Pulse Rate 106 H 110 H 110 H Respiratory Rate 15 15 Blood Pressure 131/83 134/81 Pulse Oximetry 99 97 03/14/18 00:16 03/14/18 00:18 03/14/18 02:00 Temperature Pulse Rate 110 H 107 H Respiratory Rate 15 15 Blood Pressure Pulse Oximetry 100 03/14/18 03:48 03/14/18 03:49 03/14/18 04:00 Temperature 99 F Pulse Rate 103 H 100 H Respiratory Rate 15 15 15 Blood Pressure 128/85 Pulse Oximetry 100 100 03/14/18 06:00 03/14/18 08:00 03/14/18 08:47 Temperature 98.8 F Pulse Rate 110 H 104 H 107 H Respiratory Rate 14 15 Blood Pressure 143/85 H Pulse Oximetry 99 99 03/14/18 10:00 03/14/18 12:00 03/14/18 12:44 Temperature 99.1 F Pulse Rate 101 H 109 H 110 H Respiratory Rate 17 18 Blood Pressure 137/81 Pulse Oximetry 98 03/14/18 14:00 Temperature Pulse Rate 110 H Respiratory Rate Blood Pressure Pulse Oximetry Intake & Output 03/13/18 03/14/18 03/14/18 18:59 06:59 18:59 Intake Total 1426 / 1426 325 / 325 1600 / 1600 Output Total 1575 / 1575 950 / 950 Balance -149 / -149 -625 / -625 1600 / 1600 Weight 61 kg Intake: IV 705 / 705 205 / 205 1600 / 1600 LR 1000 mL Inj 1,000 ML @ 65 1000 / 1000 mls/hr IV.CONT .[id number] PEDRO LUIS Rx# :[id number] Diprivan 1000 mg/100 ml Inj 1, 100 / 100 100 / 100 100 / 100 000 mg In 100 ml @ 5 MCG/KG/MIN 1.821 mls/hr IV.CONT TITRATE PRN Rx#:[id number] Sodium Chloride 3% Inj 500 ML @ 500 / 500 500 / 500 10 mls/hr IV.SIG Q24H PEDRO LUIS Rx#: [id number] Keppra Inj 500 MG In NS Inj 100 105 / 105 105 / 105 ML @ 400 mls/hr IV.SIG Q12H PEDRO LUIS Rx#:[id number] Oral 0 / 0 0 / 0 Tube Feeding 601 / 601 0 / 0 Water Bolus Amount 120 / 120 120 / 120 Output: Urine 750 / 750 Urine Amount (Catheter) 825 / 825 950 / 950 Indwelling Temp Sensing 825 / 825 950 / 950 Catheter Other: Date of Last Bowel Movement 03/02/18 03/14/18 03/14/18 # Bowel Movements 0 3 Result Diagrams: 03/14/18 05:18 03/14/18 12:45 Objective Remarks: GENERAL: Under nourished well, well-developed -[place] male with temporal wasting. SKIN: Warm and dry. HEAD: Normocephalic. EYES: Pupils 3 mm and reactive to pinpoint bilaterally. No scleral icterus. No injection or drainage. ENT: No nasal bleeding or discharge. Mucous membranes pink and moist, very poor dentition. NECK: Trachea midline. No JVD. CARDIOVASCULAR: occasional irregular beat, rate in 80s, sinus on monitor. No murmurs rubs or gallops. RESPIRATORY: Breathing comfortably with no accessory muscle use. Clear to auscultation. Breath sounds equal bilaterally. On room air. GASTROINTESTINAL: Abdomen soft, non-tender, nondistended. Bowel sounds present. MUSCULOSKELETAL: Extremities without clubbing, cyanosis, or edema. No obvious deformities. NEUROLOGICAL: Attempts to answer questions but words are incomprehensible, dysarthric speech, left facial droop.. Pupils equal and reactive as per above. Makes eye contact and tracks. Squeezes with right hand and moves right lower extremity to command.. Flexor response to deep noxious stimuli of left lower extremity. Left upper extremity flaccid. Assessment and Plan - Problem List (1) Traumatic brain injury Code(s): S06.9X9A - Unspecified intracranial injury with loss of consciousness of unspecified duration, initial encounter Status: Acute (2) Dysphagia Code(s): R13.10 - Dysphagia, unspecified Status: Acute - Assessment and Plan Plan: Assessment and Plan NEURO: Right frontal intraparenchymal hemorrhage 53.3 cm. Subarachnoid hemorrhage bilat frontal lobes, right parietal lobe, right temporal. Right frontotemporal subdural hematoma 6 mm with 4 mm right to left shift. Fall ?syncope Daily alcohol use Cocaine abuse Monitor neuro status in [facility]. Repeat CT 03/08 with evolution of hemorrhage, vasogenic edema with increased midline shift, 2.2 cm. Continuing mannitol 25 gram IV q6, will continue hyperosmolar therapy and target sodium of 150. Place CVL and increase to 3% @ 40/hr. EEG mild encephalopathy, no seizures. Cardene to maintain systolic blood pressure less than 140, Keppra 500 mg IV every 12 hours CTA brain and neck 03/03/[address] C-spine -negative for acute injury Tylenol as needed for temp >100.4 Dr. Dolan admitted MVI/Thiamine/folic acid supplementation IV Monitor for evidence of alcohol withdrawal. RESP: Tobacco abuse Elevated carboxyhemoglobin level consistent with history of smoking Oxygen PRN keep sats>92% Still protecting airway, continue to monitor. Tobacco cessation counseling when he is alert and able to participate. On RA CV: Monitor HR and BP keep MAP>65mmHg Place on Hydralazine 25mg Q8, Norvasc 10 daily. Cardene to maintain SBP <140 as per above. Labetalol prn. GI:. N.p.o. for now until mental status improved. Speech therapy following. Initiate enteral feeds with goal rate 40ml/hr, monitor closely for residuals. FEN/RENAL: Monitor renal function, I/O's, electrolyte replacement protocol. ID: Monitor for signs and symptoms of infection. There is presently no leukocytosis or fever. HEME: Monitor CBC ENDO: Euglycemic. Monitor bedside glucose every 6 hours. PROPH: SCDs and teds for DVT prophylaxis. Pharmacologic DVT prophylaxis is contraindicated due to intracerebral hemorrhage. Famotidine for stress ulcer prophylaxis ACCESS: With increased edema, will need hyperosmolar therapy for a few more days. Will place CVL. Full code Appears we still do not have a healthcare proxy identified for this patient. Will request case management assist as I do not see any family contact info during prior admissions. Neighbor. (1) Traumatic brain injury Qualifiers: Encounter type: subsequent encounter
--- NOTE | 2018-03-14 16:55 | P.PNNS ---
Subjective Interval history: 03/14: intubated, sedated on propofol drip. <Jodi Hyman - Last Filed: 03/14/18 16:52> Physical Exam Vital signs: Vital Signs 03/13/18 18:00 03/13/18 19:53 03/13/18 19:55 Temperature Pulse Rate 103 H 117 H Respiratory Rate 18 15 Blood Pressure Pulse Oximetry 99 03/13/18 20:00 03/13/18 22:00 03/14/18 00:00 Temperature 100.6 F H 100.6 F H Pulse Rate 106 H 110 H 110 H Respiratory Rate 15 15 Blood Pressure 131/83 134/81 Pulse Oximetry 99 97 03/14/18 00:16 03/14/18 00:18 03/14/18 02:00 Temperature Pulse Rate 110 H 107 H Respiratory Rate 15 15 Blood Pressure Pulse Oximetry 100 03/14/18 03:48 03/14/18 03:49 03/14/18 04:00 Temperature 99 F Pulse Rate 103 H 100 H Respiratory Rate 15 15 15 Blood Pressure 128/85 Pulse Oximetry 100 100 03/14/18 06:00 03/14/18 08:00 03/14/18 08:47 Temperature 98.8 F Pulse Rate 110 H 104 H 107 H Respiratory Rate 14 15 Blood Pressure 143/85 H Pulse Oximetry 99 99 03/14/18 10:00 03/14/18 12:00 03/14/18 12:44 Temperature 99.1 F Pulse Rate 101 H 109 H 110 H Respiratory Rate 17 18 Blood Pressure 137/81 Pulse Oximetry 98 03/14/18 14:00 Temperature Pulse Rate 110 H Respiratory Rate Blood Pressure Pulse Oximetry Intake & Output 03/13/18 03/14/18 03/14/18 18:59 06:59 18:59 Intake Total 1426 / 1426 325 / 325 1600 / 1600 Output Total 1575 / 1575 950 / 950 Balance -149 / -149 -625 / -625 1600 / 1600 Weight 61 kg Intake: IV 705 / 705 205 / 205 1600 / 1600 LR 1000 mL Inj 1,000 ML @ 65 1000 / 1000 mls/hr IV.CONT .[id number] [facility] Rx# :[id number] Diprivan 1000 mg/100 ml Inj 1, 100 / 100 100 / 100 100 / 100 000 mg In 100 ml @ 5 MCG/KG/MIN 1.821 mls/hr IV.CONT TITRATE PRN Rx#:[id number] Sodium Chloride 3% Inj 500 ML @ 500 / 500 500 / 500 10 mls/hr IV.SIG Q24H [facility] Rx#: [id number] Keppra Inj 500 MG In NS Inj 100 105 / 105 105 / 105 ML @ 400 mls/hr IV.SIG Q12H [facility] Rx#:[id number] Oral 0 / 0 0 / 0 Tube Feeding 601 / 601 0 / 0 Water Bolus Amount 120 / 120 120 / 120 Output: Urine 750 / 750 Urine Amount (Catheter) 825 / 825 950 / 950 Indwelling Temp Sensing 825 / 825 950 / 950 Catheter Other: Date of Last Bowel Movement 03/02/18 03/14/18 03/14/18 # Bowel Movements 0 3 Narrative: General: Comfortable and in no obvious distress during examination. Intubated and sedated on propofol drip HEENT: Normocephalic, atraumatic. Normal conjunctiva. No nasal drainage. Neck: No massess, no JVD. Trachea midline. Soft, supple, no meningismus or nuchal rigidity. Neuro: Sedated. Cranial nerve examination: pupils equal, round, and reactive to light. Bilateral plantar flexion response. no clonus. Sensory examination with minimal response to pain in both the upper and lower extremities. Cerebellar examination cannot be assessed due to clinical condition. Extremities: No obvious deformities. No clubbing. No peripheral edema. Lungs: clear to auscultate bilaterally. Mechanically ventilated. Heart: regular rate and rhythm Abdomen: soft, nontender. Positive bowel sounds Skin: warm and dry, no cyanosis or erythema. - Urinary Catheter Management Indwelling Temp Sensing Catheter Cath placed during this visit: yes Reason for continuing: Acute urinary retention Insertion date: 03/12/18 Insertion time: 05:30 <Jodi Hyman - Last Filed: 03/14/18 16:52> Vital signs: Vital Signs 03/16/18 22:00 03/16/18 23:32 03/17/18 00:00 Temperature 99.5 F Pulse Rate 102 H 104 H 107 H Respiratory Rate 15 15 Blood Pressure 123/82 Pulse Oximetry 99 03/17/18 01:49 03/17/18 02:00 03/17/18 03:28 Temperature Pulse Rate 107 H 94 H Respiratory Rate 15 15 Blood Pressure Pulse Oximetry 100 03/17/18 04:00 03/17/18 04:29 03/17/18 06:00 Temperature 99.3 F Pulse Rate 103 H 102 H Respiratory Rate 15 15 Blood Pressure 114/78 Pulse Oximetry 99 100 03/17/18 08:00 03/17/18 08:44 03/17/18 10:00 Temperature Pulse Rate 110 H 98 H 94 H Respiratory Rate 13 Blood Pressure Pulse Oximetry 100 03/17/18 12:00 03/17/18 13:00 03/17/18 14:00 Temperature 99.1 F Pulse Rate 94 H 103 H 94 H Respiratory Rate 13 26 H Blood Pressure 121/74 Pulse Oximetry 98 03/17/18 16:00 03/17/18 16:18 03/17/18 18:00 Temperature 98.1 F Pulse Rate 100 H 106 H Respiratory Rate 20 Blood Pressure 115/74 Pulse Oximetry 99 100 03/17/18 20:00 Temperature Pulse Rate 104 H Respiratory Rate Blood Pressure Pulse Oximetry Intake & Output 03/17/18 03/17/18 03/18/18 06:59 18:59 06:59 Intake Total 1526 / 1526 1505 / 1505 Output Total 1700 / 1700 1350 / 1350 Balance -174 / -174 155 / 155 Weight 63.3 kg Intake: IV 1105 / 1105 1000 / 1000 LR 1000 mL Inj 1,000 ML @ 65 1000 / 1000 1000 / 1000 mls/hr IV.CONT .[id number] [facility] Rx# :[id number] Keppra Inj 500 MG In NS Inj 100 105 / 105 ML @ 400 mls/hr IV.SIG Q12H [facility] Rx#:[id number] Oral 0 / 0 0 / 0 Tube Feeding 181 / 181 265 / 265 Tube Irrigant 0 / 0 Water Bolus Amount 240 / 240 240 / 240 Output: Urine 700 / 700 Stool 0 / 0 0 / 0 Urine Amount (Catheter) 1000 / 1000 1350 / 1350 Indwelling Urethral Catheter 1000 / 1000 1350 / 1350 Other: Date of Last Bowel Movement 03/17/18 03/17/18 03/17/18 # Bowel Movements 1 0 Weight On Admission 59.8 kg Narrative: General: Comfortable and in no obvious distress during examination. Intubated and sedated on propofol drip HEENT: Normocephalic, atraumatic. Normal conjunctiva. No nasal drainage. Neck: No massess, no JVD. Trachea midline. Soft, supple, no meningismus or nuchal rigidity. Neuro: Sedated. Cranial nerve examination: pupils equal, round, and reactive to light. Bilateral plantar flexion response. no clonus. Sensory examination with minimal response to pain in both the upper and lower extremities. Cerebellar examination cannot be assessed due to clinical condition. Extremities: No obvious deformities. No clubbing. No peripheral edema. Lungs: clear to auscultate bilaterally. Mechanically ventilated. Heart: regular rate and rhythm Abdomen: soft, nontender. Positive bowel sounds Skin: warm and dry, no cyanosis or erythema. - Urinary Catheter Management Indwelling Temp Sensing Catheter Cath placed during this visit: yes, but has since been removed by the nurse Reason for continuing: Decision to DC catheter Insertion date: 03/12/18 Insertion time: 05:30 Removal date: 03/14/18 Removal time: 17:00 Indwelling Urethral Catheter Cath placed during this visit: yes, but has since been removed by the nurse Reason for continuing: Decision to DC catheter Removal date: 03/14/18 Removal time: 17:00 <Luis Chacko - Last Filed: 03/17/18 21:12> Assessment and Plan - Plan cont neuro checks critical care management <Jodi Hyman - Last Filed: 03/14/18 16:52> - Assessment (1) Traumatic brain injury Code(s): S06.9X9A - Unspecified intracranial injury with loss of consciousness of unspecified duration, initial encounter Status: Acute Qualifiers: Encounter type: subsequent encounter - Plan Continue neuro checks, non surgical treatment Wean mchanical ventilation. Continue aggressive pulmonary toilette, nasotracheal suction, and breathing treatments with nebulizers. Renal. monitor closely urine output, BUN and creatinine Endocrine. Monitor serial Acu checks and SSI as needed in detail ID monitor for signs of infection Protonix for stress ulcer prophylaxis [place] hose and SCD's for DVT prophylaxis The exam, history, and the medical decision-making described in the above note were completed with the assistance of the mid-level provider. I reviewed and agree with the findings presented. I attest that I had a [id number] encounter with the patient on the same day, and personally performed and documented my assessment and findings in the medical record. <Luis Chacko - Last Filed: 03/17/18 21:12>
[2018-03-15] MEDS: Oral Hygiene Kit OROPHARYNG SCH ×4 (00:16→16:45)
[2018-03-15] MEDS: hydrALAZINE 25 MG Tablet PO SCH ×4 (00:16→17:33)
[2018-03-15] MEDS: Artificial Tears Opth Drops 15 ML Bottle EACH EYE SCH ×3 (00:17→16:45)
[2018-03-15 06:27] LABS: Albumin 2.3 g/dL (3.4-5.0); Anion Gap 6 meq/L (5-15); Aspartate Aminotransferase 38 U/L (15-37); Blood Urea Nitrogen 22 mg/dL (7-18); Calcium 8.9 mg/dL (8.5-10.1); Carbon Dioxide 30.7 meq/L (21.0-32.0); Chloride 115 meq/L (98-107); Glomerular Filtration Rate Greater Than 89 mL/min (>89); Glucose,Random 125 mg/dL (74-106); Potassium 3.6 meq/L (3.5-5.1); Sodium 152 meq/L (136-145)
[2018-03-15 06:28] LABS: Alanine Aminotransferase 16 U/L (12-78)
[2018-03-15] MEDS: Propofol 1000 mg/100 ml Inj 1,000 MG/100 ML BOTTLE IV.CONT PRN (06:28)
[2018-03-15 06:30] LABS: Alkaline Phosphatase 55 U/L (45-117); Total Protein 7.6 g/dL (6.4-8.2)
[2018-03-15] MEDS: Docusate Sodium Liq 100 MG/10 ML UDC NG/OG SCH ×2 (08:41→20:55)
[2018-03-15] MEDS: Sennosides Liq 8.8 MG/5 ML UDC NG/OG SCH ×2 (08:42→20:56)
[2018-03-15] MEDS: Folic Acid 1 MG Tablet PO SCH (08:42)
[2018-03-15] MEDS: Polyethylene Glycol 3350 17 GM Packet NG/OG SCH ×2 (08:42→20:55)
[2018-03-15] MEDS: Chlorhexidine 0.12% Oral Kit 15 ML UDC OROPHARYNG SCH ×2 (08:42→20:56)
[2018-03-15] MEDS: amLODIPine 10 MG Tablet NG/OG SCH (08:42)
--- NOTE | 2018-03-15 12:53 | P.PNCC ---
Subjective Subjective Remarks/Hospital Course: 03/03: 62-year-old -Russian male with past medical history of COPD/asthma , tobacco abuse, daily alcohol use who presented to [facility] emergency department after a fall. Patient told EM provider that he was mopping the floor with some chemicals when he felt lightheaded and fell hitting the back of his head. Patient complained of vertigo. CT brain showed right frontal intraparenchymal hemorrhage 5 x 3.3 cm with subarachnoid hemorrhage bilateral frontal lobes, right parietal and right temporal lobes. There is a component of acute subdural hematoma along the right frontoparietal lobe that is 6 mm. There is 4 mm of subfalcine herniation to the left. He is not on anticoagulation but takes aspirin daily. He complained of headache and has received Dilaudid 0.2 mg IV in the ED. BP went up to 183/99 and he was started on Cardene and BP now 144/74 on 5mg/hr. He denied nausea, vomiting, cough, fevers or chills. CTA brain/neck demonstrate no vascular abnormality. He has been admitted by Dr. Dolan and [facility] has been consulted to assist in medical management of ICH as well as workup for syncope. He said that his son had brought him to the emergency department for evaluation however upon evaluation in the ED the son was not present and there was no phone number available for him. 03/04: Resting in bed. Drowsy, arousable. Not following commands. 03/05: Resting in bed. Drowsy, easily arousable. Squeezes with both hands on command. 03/06: More awake, following commands. Dysarthric. Left-sided weakness persists. 03/07 Patient is awake on room air oxygen when seen. Follows commands. 03/08 Reportedly was cooperative and conversant with PT yesterday, oriented x3. Today will follow commands but is lethargic, no comprehensible words. No witnessed seizure. Subjective: 03/09 CT brain yesterday with evolving R frontal lobe hematoma, vasogenic edema with 2.2 cm right to left midline shift. EEG mild encephalopathy, no seizure. He continues to protect his airway, follows commands on the right. 03/09 CT brain yesterday with evolving R frontal lobe hematoma, vasogenic edema with 2.2 cm right to left midline shift. EEG mild encephalopathy, no seizure. He continues to protect his airway, follows commands on the right. 03/10: Awake and alert. Follows commands on the right. Protecting airway currently. On 3% saline. 03/11:Drowsy, easily arousable at the time of my evaluation this morning, moves right upper and lower extremity. speech unclear (mumbles). 03/12: Intubated yesterday secondary to altered mental status and copious thick secretions. Tube feeds of been resumed. Bowel regimen resume. SUBJECTIVE: 03/13: Afebrile. Lessening sedation. Off will follow commands right upper extremity. Withdraws bilateral x-rays. Flaccid left upper extremity. Tolerating tube feeds. Disimpacted yesterday. Not sufficiently abdomen still distended will check CT abdomen/pelvis with oral contrast today 03/14: Had small BM, abdomen not distended. Will hold pain meds to encourage bowel activity. 03/15: Hold extubation due to hematoma mass-effect and episodic apnea spells. He does tolerate CPAP trials otherwise. Objective Vital Signs / I&O: Vital Signs 03/14/18 14:00 03/14/18 16:00 03/14/18 16:58 Temperature 99.0 F Pulse Rate 110 H 110 H 110 H Respiratory Rate 16 16 Blood Pressure 139/83 Pulse Oximetry 99 99 03/14/18 18:00 03/14/18 20:00 03/14/18 20:44 Temperature 99 F Pulse Rate 111 H 110 H 114 H Respiratory Rate 15 15 Blood Pressure 151/86 H Pulse Oximetry 99 99 03/14/18 22:00 03/15/18 00:00 03/15/18 00:32 Temperature 100.2 F H Pulse Rate 109 H 107 H Respiratory Rate 15 15 Blood Pressure 141/83 H Pulse Oximetry 99 99 03/15/18 00:33 03/15/18 02:00 03/15/18 04:00 Temperature 99.7 F H Pulse Rate 110 H 104 H 109 H Respiratory Rate 15 15 Blood Pressure 134/85 Pulse Oximetry 99 03/15/18 04:25 03/15/18 06:00 03/15/18 08:00 Temperature 98.7 F Pulse Rate 102 H 111 H 108 H Respiratory Rate 15 15 Blood Pressure 118/79 Pulse Oximetry 100 99 03/15/18 08:54 03/15/18 08:59 03/15/18 10:00 Temperature Pulse Rate 103 H 108 H Respiratory Rate 10 L 10 L Blood Pressure Pulse Oximetry 98 03/15/18 12:00 03/15/18 12:23 03/15/18 12:25 Temperature Pulse Rate 110 H 113 H Respiratory Rate 22 22 Blood Pressure Pulse Oximetry 99 Intake & Output 03/14/18 03/15/18 03/15/18 18:59 06:59 18:59 Intake Total 1925 / 1925 1325 / 1325 Output Total 1700 / 1700 3450 / 3450 Balance 225 / 225 -2125 / -2125 Weight 59.2 kg Intake: IV 1805 / 1805 1205 / 1205 LR 1000 mL Inj 1,000 ML @ 65 1000 / 1000 1000 / 1000 mls/hr IV.CONT .[id number] [facility] Rx# :[id number] Diprivan 1000 mg/100 ml Inj 1, 200 / 200 100 / 100 000 mg In 100 ml @ 5 MCG/KG/MIN 1.821 mls/hr IV.CONT TITRATE PRN Rx#:[id number] Sodium Chloride 3% Inj 500 ML @ 500 / 500 10 mls/hr IV.SIG Q24H [facility] Rx#: [id number] Keppra Inj 500 MG In NS Inj 100 105 / 105 105 / 105 ML @ 400 mls/hr IV.SIG Q12H [facility] Rx#:[id number] Oral 0 / 0 0 / 0 Tube Feeding 0 / 0 0 / 0 Water Bolus Amount 120 / 120 120 / 120 Output: Urine 750 / 750 Urine Amount (Catheter) 950 / 950 3450 / 3450 Indwelling Temp Sensing 950 / 950 900 / 900 Catheter Indwelling Urethral Catheter 2550 / 2550 Other: Date of Last Bowel Movement 03/14/18 03/15/18 03/15/18 # Bowel Movements 3 1 Result Diagrams: 03/14/18 05:18 03/15/18 05:44 Objective Remarks: GENERAL: Under nourished well, well-developed -[place] male with temporal wasting. SKIN: Warm and dry. HEAD: Normocephalic. EYES: Pupils 3 mm and reactive to pinpoint bilaterally. No scleral icterus. No injection or drainage. ENT: No nasal bleeding or discharge. Mucous membranes pink and moist, very poor dentition. NECK: Trachea midline. No JVD. CARDIOVASCULAR: occasional irregular beat, rate in 80s, sinus on monitor. No murmurs rubs or gallops. RESPIRATORY: Breathing comfortably with no accessory muscle use. Clear to auscultation. Breath sounds equal bilaterally. On room air. GASTROINTESTINAL: Abdomen soft, non-tender, nondistended. Bowel sounds present. MUSCULOSKELETAL: Extremities without clubbing, cyanosis, or edema. No obvious deformities. NEUROLOGICAL: Attempts to answer questions but words are incomprehensible, dysarthric speech, left facial droop.. RAJANI makes eye contact and tracks. Squeezes with right hand and moves right lower extremity to command.. Flexor response to deep noxious stimuli of left lower extremity. Left upper extremity 1/5 at best. Assessment and Plan - Problem List (1) Traumatic brain injury Code(s): S06.9X9A - Unspecified intracranial injury with loss of consciousness of unspecified duration, initial encounter Status: Acute (2) Dysphagia Code(s): R13.10 - Dysphagia, unspecified Status: Acute - Assessment and Plan Plan: Assessment and Plan NEURO: Right frontal intraparenchymal hemorrhage 53.3 cm. Subarachnoid hemorrhage bilat frontal lobes, right parietal lobe, right temporal. Right frontotemporal subdural hematoma 6 mm with 4 mm right to left shift. Fall ?syncope Daily alcohol use Cocaine abuse Monitor neuro status in [facility]. Repeat CT 03/08 with evolution of hemorrhage, vasogenic edema with increased midline shift, 2.2 cm. Continuing mannitol 25 gram IV q6, will continue hyperosmolar therapy and target sodium of 150. Place CVL and increase to 3% @ 40/hr. EEG mild encephalopathy, no seizures. Cardene to maintain systolic blood pressure less than 140, Keppra 500 mg IV every 12 hours CTA brain and neck 03/03/[address] C-spine -negative for acute injury Tylenol as needed for temp >100.4 Dr. Dolan admitted MVI/Thiamine/folic acid supplementation IV Monitor for evidence of alcohol withdrawal. Repeat Head CT 03/15. RESP: Tobacco abuse Elevated carboxyhemoglobin level consistent with history of smoking Oxygen PRN keep sats>92% Still protecting airway, continue to monitor. Tobacco cessation counseling when he is alert and able to participate. On RA CV: Monitor HR and BP keep MAP>65mmHg Place on Hydralazine 25mg Q8, Norvasc 10 daily. Cardene to maintain SBP <140 as per above. Labetalol prn. GI:. N.p.o. for now until mental status improved. Speech therapy following. Initiate enteral feeds with goal rate 40ml/hr, monitor closely for residuals. FEN/RENAL: Monitor renal function, I/O's, electrolyte replacement protocol. Convert to LR iv fluid. Stop 3% saline. ID: Monitor for signs and symptoms of infection. HEME: Monitor CBC ENDO: Euglycemic. Monitor bedside glucose every 6 hours. PROPH: SCDs and teds for DVT prophylaxis. Pharmacologic DVT prophylaxis is contraindicated due to intracerebral hemorrhage. Famotidine for stress ulcer prophylaxis ACCESS: With increased edema, will need hyperosmolar therapy for a few more days. Will place CVL. Full code Overall impression: This gentleman has a suitable respiratory spontaneous breathing trials. I will repeat his head CT prior to attempts at extubation to see if the mass-effect from the hematoma has resolved at all. He has brief apneic episodes are not particularly worrisome, likely caused by mild alkalosis. (1) Traumatic brain injury Qualifiers: Encounter type: subsequent encounter
--- NOTE | 2018-03-15 14:09 | P.PNGI ---
Subjective Interval history: Continues to be monitored in the intensive care setting on ventilator management NG tube intact Randomly opens eyes but does not appear to track Current hemoglobin 11.9, WBC count 12.2, INR 1 Mild AST elevation today possibly secondary to shock liver <Gale Beavers - Last Filed: 03/15/18 14:11> Physical Exam Vital signs: Vital Signs 03/14/18 16:00 03/14/18 16:58 03/14/18 18:00 Temperature 99.0 F Pulse Rate 110 H 110 H 111 H Respiratory Rate 16 16 Blood Pressure 139/83 Pulse Oximetry 99 99 03/14/18 20:00 03/14/18 20:44 03/14/18 22:00 Temperature 99 F Pulse Rate 110 H 114 H 109 H Respiratory Rate 15 15 Blood Pressure 151/86 H Pulse Oximetry 99 99 03/15/18 00:00 03/15/18 00:32 03/15/18 00:33 Temperature 100.2 F H Pulse Rate 107 H 110 H Respiratory Rate 15 15 15 Blood Pressure 141/83 H Pulse Oximetry 99 99 03/15/18 02:00 03/15/18 04:00 03/15/18 04:25 Temperature 99.7 F H Pulse Rate 104 H 109 H 102 H Respiratory Rate 15 15 Blood Pressure 134/85 Pulse Oximetry 99 100 03/15/18 06:00 03/15/18 08:00 03/15/18 08:54 Temperature 98.7 F Pulse Rate 111 H 108 H Respiratory Rate 15 10 L Blood Pressure 118/79 Pulse Oximetry 99 98 03/15/18 08:59 03/15/18 10:00 03/15/18 12:00 Temperature Pulse Rate 103 H 108 H 110 H Respiratory Rate 10 L Blood Pressure Pulse Oximetry 03/15/18 12:23 03/15/18 12:25 Temperature Pulse Rate 113 H Respiratory Rate 22 22 Blood Pressure Pulse Oximetry 99 Intake & Output 03/14/18 03/15/18 03/15/18 18:59 06:59 18:59 Intake Total 1925 / 1925 1325 / 1325 Output Total 1700 / 1700 3450 / 3450 Balance 225 / 225 -2125 / -2125 Weight 59.2 kg Intake: IV 1805 / 1805 1205 / 1205 LR 1000 mL Inj 1,000 ML @ 65 1000 / 1000 1000 / 1000 mls/hr IV.CONT .[id number] [facility] Rx# :[id number] Diprivan 1000 mg/100 ml Inj 1, 200 / 200 100 / 100 000 mg In 100 ml @ 5 MCG/KG/MIN 1.821 mls/hr IV.CONT TITRATE PRN Rx#:[id number] Sodium Chloride 3% Inj 500 ML @ 500 / 500 10 mls/hr IV.SIG Q24H [facility] Rx#: [id number] Keppra Inj 500 MG In NS Inj 100 105 / 105 105 / 105 ML @ 400 mls/hr IV.SIG Q12H [facility] Rx#:[id number] Oral 0 / 0 0 / 0 Tube Feeding 0 / 0 0 / 0 Water Bolus Amount 120 / 120 120 / 120 Output: Urine 750 / 750 Urine Amount (Catheter) 950 / 950 3450 / 3450 Indwelling Temp Sensing 950 / 950 900 / 900 Catheter Indwelling Urethral Catheter 2550 / 2550 Other: Date of Last Bowel Movement 03/14/18 03/15/18 03/15/18 # Bowel Movements 3 1 - Constitutional no acute distress - Routine HEENT Exam Head: Present: normocephalic (Plan) ENT: Present: mucous membranes moist - Routine Neck Exam Present: supple - Routine Cardiovascular Exam Present: S1, S2 - Routine Abdominal Exam Present: soft (Round, no facial grimace to palpation, soft bowel sounds) - Routine Skin Exam Present: intact - Routine Neurological Exam Present: sensory deficit, motor deficit - Detailed Neurological Exam: Coma Scale Eye Opening: Spontaneous - Urinary Catheter Management Indwelling Temp Sensing Catheter Cath placed during this visit: yes Reason for continuing: Acute urinary retention Insertion date: 03/12/18 Insertion time: 05:30 Indwelling Urethral Catheter Cath placed during this visit: no <Gale Beavers - Last Filed: 03/15/18 14:11> Vital signs: Vital Signs 03/14/18 16:58 03/14/18 18:00 03/14/18 20:00 Temperature 99 F Pulse Rate 110 H 111 H 110 H Respiratory Rate 16 15 Blood Pressure 151/86 H Pulse Oximetry 99 99 03/14/18 20:44 03/14/18 22:00 03/15/18 00:00 Temperature 100.2 F H Pulse Rate 114 H 109 H 107 H Respiratory Rate 15 15 Blood Pressure 141/83 H Pulse Oximetry 99 99 03/15/18 00:32 03/15/18 00:33 03/15/18 02:00 Temperature Pulse Rate 110 H 104 H Respiratory Rate 15 15 Blood Pressure Pulse Oximetry 99 03/15/18 04:00 03/15/18 04:25 03/15/18 06:00 Temperature 99.7 F H Pulse Rate 109 H 102 H 111 H Respiratory Rate 15 15 Blood Pressure 134/85 Pulse Oximetry 99 100 03/15/18 08:00 03/15/18 08:54 03/15/18 08:59 Temperature 98.7 F Pulse Rate 108 H 103 H Respiratory Rate 15 10 L 10 L Blood Pressure 118/79 Pulse Oximetry 99 98 03/15/18 10:00 03/15/18 12:00 03/15/18 12:23 Temperature 98.7 F Pulse Rate 108 H 105 H Respiratory Rate 15 22 Blood Pressure 136/85 Pulse Oximetry 99 99 03/15/18 12:25 03/15/18 14:00 Temperature Pulse Rate 113 H 106 H Respiratory Rate 22 Blood Pressure Pulse Oximetry Intake & Output 03/14/18 03/15/18 03/15/18 18:59 06:59 18:59 Intake Total 1925 / 1925 1325 / 1325 Output Total 1700 / 1700 3450 / 3450 Balance 225 / 225 -2125 / -2125 Weight 59.2 kg Intake: IV 1805 / 1805 1205 / 1205 LR 1000 mL Inj 1,000 ML @ 65 1000 / 1000 1000 / 1000 mls/hr IV.CONT .[id number] [facility] Rx# :[id number] Diprivan 1000 mg/100 ml Inj 1, 200 / 200 100 / 100 000 mg In 100 ml @ 5 MCG/KG/MIN 1.821 mls/hr IV.CONT TITRATE PRN Rx#:[id number] Sodium Chloride 3% Inj 500 ML @ 500 / 500 10 mls/hr IV.SIG Q24H [facility] Rx#: [id number] Keppra Inj 500 MG In NS Inj 100 105 / 105 105 / 105 ML @ 400 mls/hr IV.SIG Q12H [facility] Rx#:[id number] Oral 0 / 0 0 / 0 Tube Feeding 0 / 0 0 / 0 Water Bolus Amount 120 / 120 120 / 120 Output: Urine 750 / 750 Urine Amount (Catheter) 950 / 950 3450 / 3450 Indwelling Temp Sensing 950 / 950 900 / 900 Catheter Indwelling Urethral Catheter 2550 / 2550 Other: Date of Last Bowel Movement 03/14/18 03/15/18 03/15/18 # Bowel Movements 3 1 - Urinary Catheter Management Indwelling Temp Sensing Catheter Cath placed during this visit: no Indwelling Urethral Catheter Cath placed during this visit: no <Matty Lane - Last Filed: 03/15/18 16:04> Results - Labs CBC & Chem 7: 03/14/18 05:18 03/15/18 05:44 Laboratory Results - last 24 hr 03/15/18 03/15/18 05:44 05:44 Sodium Cancelled 152 H Potassium 3.6 Chloride 115 H Carbon Dioxide 30.7 Anion Gap 6 BUN 22 H Creatinine 0.77 Estimated GFR Greater than 89 Random Glucose 125 H Osmolality 324 H Calcium 8.9 Total Bilirubin 0.3 AST 38 H ALT 16 Alkaline Phosphatase 55 Total Protein 7.6 Albumin 2.3 L Microbiology 03/12/18 21:30 Blood - Peripheral Aerobic Blood Culture - Preliminary No growth in 3 days 03/12/18 21:30 Blood - Peripheral Anaerobic Blood Culture - Preliminary No growth in 3 days 03/12/18 21:36 Blood - Peripheral Aerobic Blood Culture - Preliminary No growth in 3 days 03/12/18 21:36 Blood - Peripheral Anaerobic Blood Culture - Preliminary No growth in 3 days 03/12/18 17:30 Catheterized Urine Urine Culture - Final No growth in 48 hours 03/12/18 01:15 Sputum - Endotracheal Gram Stain - Final 03/12/18 01:15 Sputum - Endotracheal Sputum Culture - Final Staphylococcus aureus <Gale Beavers - Last Filed: 03/15/18 14:11> - Labs CBC & Chem 7: 03/14/18 05:18 03/15/18 05:44 Laboratory Results - last 24 hr 03/15/18 03/15/18 05:44 05:44 Sodium Cancelled 152 H Potassium 3.6 Chloride 115 H Carbon Dioxide 30.7 Anion Gap 6 BUN 22 H Creatinine 0.77 Estimated GFR Greater than 89 Random Glucose 125 H Osmolality 324 H Calcium 8.9 Total Bilirubin 0.3 AST 38 H ALT 16 Alkaline Phosphatase 55 Total Protein 7.6 Albumin 2.3 L Microbiology 03/12/18 21:30 Blood - Peripheral Aerobic Blood Culture - Preliminary No growth in 3 days 03/12/18 21:30 Blood - Peripheral Anaerobic Blood Culture - Preliminary No growth in 3 days 03/12/18 21:36 Blood - Peripheral Aerobic Blood Culture - Preliminary No growth in 3 days 03/12/18 21:36 Blood - Peripheral Anaerobic Blood Culture - Preliminary No growth in 3 days 03/12/18 17:30 Catheterized Urine Urine Culture - Final No growth in 48 hours 03/12/18 01:15 Sputum - Endotracheal Gram Stain - Final 03/12/18 01:15 Sputum - Endotracheal Sputum Culture - Final Staphylococcus aureus <Matty Lane - Last Filed: 03/15/18 16:04> Assessment and Plan - Plan Assessment: - Colonic ileus Pt currently in ICU, admitted on 03/03 after a fall, being managed for intraparenchymal hemorrhage, subarachnoid hemorrhage, frontotemporal subdural hematoma- chronic ETOH abuse According to [facility] notes, pt has been manually disimpacted on 03/12 with minimal stool and placed on a bowel regimen as well as received a dose of Relistor on 03/12- abdomen remains distended and firm CT abdomen and pelvis WO Iv contrast (03/13) Moderate constipation with diffuse ileus. Rectum distended to 8 cm with stool. No small bowel obstruction. No significant free fluid. No free air. Dodge catheter in bladder. NG coiled in stomach. Trace right pleural effusion. KUB (03/14) Colonic ileus 03/15/2018 patient's abdomen is round, taut, with soft minimal bowel sounds. Appears to have some mild distention. Continues to be medical management on ventilator. Noted KUB from 03/14 showed consistent with colonic ileus., Tube feed restarted Jevity at 20 cc an hour, off now. Staff is preparing to possibly extubate noted stools 3 on 03/14/2018 and 1 stool today 03/15/2018. bowel regimen. Rectal tube has been DC'd. Staff states large solid BM plug removed and now liquid consistent. Patient is taking lactulose 4 times a day. We will recheck KUB in the morning but currently patient has soft bowel sounds. Colonic ileus gradual improvement per symptoms Plan: Diet restart Jevity , trickle feeds and monitor residual, after extubation Continue bowel regimen as needed Reglan Folic acid Anti-medics Pt has been seen per myself and Dr. Lane, note note is written on his behalf <Gale Beavers - Last Filed: 03/15/18 14:11> - Attending Attestation Agree with the plan as above. Will follow up with you. <Matty Lane - Last Filed: 03/15/18 16:04>
--- NOTE | 2018-03-15 18:23 | CT ---
EXAM DATE: 03/15/2018 6:00 PM EDT AGE/SEX: 62 years / Male INDICATIONS: Traumatic brain injury. CLINICAL DATA: This is the patient's initial encounter. Patient reports that signs and symptoms have been present for 1 day and indicates a pain score of Nonresponsive. MEDICAL/SURGICAL HISTORY: Non-responsive. Non-responsive. RADIATION DOSE: 47.81 CTDI (mGy) COMPARISON: [facility] [place], CT HEAD W/O CONTRAST, 03/11/2018. . TECHNIQUE: CT of the head without contrast. Using automated exposure control and adjustment of the mA and/or kV according to patient size, radiation dose was kept as low as reasonably achievable to ob tain optimal diagnostic quality images. DICOM format image data is available electronically for revi ew and comparison. FINDINGS: Subacute parenchymal hemorrhage with surrounding cerebral edema seen of the right frontal lobe. The a mount of hemorrhage does not appear significantly changed but the cerebral edema is modestly worse. L eftward midline shift is approximately 16 mm, worse. Very mild subarachnoid and possible parenchymal hemorrhage of the left frontal lobe and left high parietal lobe not significantly changed but with ve ry mild cerebral edema developing. No evidence of an acute ischemic event. No mass lesion seen. CONCLUSION: 1. Evolving right frontal lobe parenchymal hemorrhage with cerebral edema and worsening leftward mid line shift. 2. Minimal left frontal and parietal subarachnoid blood without associated mass effect. Electronically signed by: Saeid Cardenas MD 03/15/2018 6:21 PM EDT
[2018-03-16] MEDS: hydrALAZINE 25 MG Tablet PO SCH ×5 (01:36→18:50)
[2018-03-16] MEDS: Artificial Tears Opth Drops 15 ML Bottle EACH EYE SCH ×3 (01:37→16:23)
[2018-03-16] MEDS: Oral Hygiene Kit OROPHARYNG SCH ×4 (01:37→16:23)
[2018-03-16 05:53] LABS: Albumin 2.2 g/dL (3.4-5.0); Anion Gap 6 meq/L (5-15); Aspartate Aminotransferase 31 U/L (15-37); Blood Urea Nitrogen 24 mg/dL (7-18); Calcium 8.8 mg/dL (8.5-10.1); Carbon Dioxide 30.6 meq/L (21.0-32.0); Chloride 115 meq/L (98-107); Glomerular Filtration Rate Greater Than 89 mL/min (>89); Glucose,Random 114 mg/dL (74-106); Potassium 3.4 meq/L (3.5-5.1); Sodium 152 meq/L (136-145)
[2018-03-16 05:54] LABS: Alanine Aminotransferase 14 U/L (12-78)
[2018-03-16 05:56] LABS: Alkaline Phosphatase 51 U/L (45-117); Total Protein 7.5 g/dL (6.4-8.2)
[2018-03-16] MEDS: Chlorhexidine 0.12% Oral Kit 15 ML UDC OROPHARYNG SCH ×2 (09:05→21:53)
--- NOTE | 2018-03-16 09:09 | P.PNCC ---
Subjective Subjective Remarks/Hospital Course: 03/03: 62-year-old -[place] male with past medical history of COPD/asthma , tobacco abuse, daily alcohol use who presented to [facility] emergency department after a fall. Patient told EM provider that he was mopping the floor with some chemicals when he felt lightheaded and fell hitting the back of his head. Patient complained of vertigo. CT brain showed right frontal intraparenchymal hemorrhage 5 x 3.3 cm with subarachnoid hemorrhage bilateral frontal lobes, right parietal and right temporal lobes. There is a component of acute subdural hematoma along the right frontoparietal lobe that is 6 mm. There is 4 mm of subfalcine herniation to the left. He is not on anticoagulation but takes aspirin daily. He complained of headache and has received Dilaudid 0.2 mg IV in the ED. BP went up to 183/99 and he was started on Cardene and BP now 144/74 on 5mg/hr. He denied nausea, vomiting, cough, fevers or chills. CTA brain/neck demonstrate no vascular abnormality. He has been admitted by Dr. Dolan and [facility] has been consulted to assist in medical management of ICH as well as workup for syncope. He said that his son had brought him to the emergency department for evaluation however upon evaluation in the ED the son was not present and there was no phone number available for him. 03/04: Resting in bed. Drowsy, arousable. Not following commands. 03/05: Resting in bed. Drowsy, easily arousable. Squeezes with both hands on command. 03/06: More awake, following commands. Dysarthric. Left-sided weakness persists. 03/07 Patient is awake on room air oxygen when seen. Follows commands. 03/08 Reportedly was cooperative and conversant with PT yesterday, oriented x3. Today will follow commands but is lethargic, no comprehensible words. No witnessed seizure. Subjective: 03/09 CT brain yesterday with evolving R frontal lobe hematoma, vasogenic edema with 2.2 cm right to left midline shift. EEG mild encephalopathy, no seizure. He continues to protect his airway, follows commands on the right. 03/09 CT brain yesterday with evolving R frontal lobe hematoma, vasogenic edema with 2.2 cm right to left midline shift. EEG mild encephalopathy, no seizure. He continues to protect his airway, follows commands on the right. 03/10: Awake and alert. Follows commands on the right. Protecting airway currently. On 3% saline. 03/11:Drowsy, easily arousable at the time of my evaluation this morning, moves right upper and lower extremity. speech unclear (mumbles). 03/12: Intubated yesterday secondary to altered mental status and copious thick secretions. Tube feeds of been resumed. Bowel regimen resume. SUBJECTIVE: 03/13: Afebrile. Lessening sedation. Off will follow commands right upper extremity. Withdraws bilateral x-rays. Flaccid left upper extremity. Tolerating tube feeds. Disimpacted yesterday. Not sufficiently abdomen still distended will check CT abdomen/pelvis with oral contrast today 03/14: Had small BM, abdomen not distended. Will hold pain meds to encourage bowel activity. 03/15: Hold extubation due to hematoma mass-effect and episodic apnea spells. He does tolerate CPAP trials otherwise. 03/16: He does reasonably well on spontaneous breathing trials with the exception of periodic brief episodes of apnea. Head CT yesterday reveals continued mass-effect from the right frontal lobe hematoma. Serum osmolality has been greater than 320 and it would appear that we have maximized efforts to reduce cerebral edema. We will attempt extubation when neurosurgical service feels it is appropriate. Objective Vital Signs / I&O: Vital Signs 03/15/18 08:54 03/15/18 08:59 03/15/18 10:00 Temperature Pulse Rate 103 H 108 H Respiratory Rate 10 L 10 L Blood Pressure Pulse Oximetry 98 03/15/18 12:00 03/15/18 12:23 03/15/18 12:25 Temperature 98.7 F Pulse Rate 105 H 113 H Respiratory Rate 15 22 22 Blood Pressure 136/85 Pulse Oximetry 99 99 03/15/18 14:00 03/15/18 16:00 03/15/18 16:25 Temperature 99.0 F Pulse Rate 106 H 108 H Respiratory Rate 15 15 Blood Pressure 129/80 Pulse Oximetry 99 03/15/18 16:31 03/15/18 18:00 03/15/18 20:00 Temperature 98.2 F Pulse Rate 102 H 109 H 111 H Respiratory Rate 15 15 Blood Pressure 135/89 Pulse Oximetry 98 03/15/18 20:30 03/15/18 20:42 03/15/18 22:00 Temperature Pulse Rate 120 H 110 H Respiratory Rate 19 18 Blood Pressure Pulse Oximetry 99 03/16/18 00:00 03/16/18 01:23 03/16/18 01:26 Temperature 99.9 F H Pulse Rate 110 H 113 H Respiratory Rate 15 15 15 Blood Pressure 115/70 Pulse Oximetry 98 98 03/16/18 02:00 03/16/18 03:41 03/16/18 04:00 Temperature 100.5 F H Pulse Rate 112 H 115 H 120 H Respiratory Rate 20 16 Blood Pressure 109/70 Pulse Oximetry 100 99 03/16/18 06:00 Temperature Pulse Rate 102 H Respiratory Rate Blood Pressure Pulse Oximetry Intake & Output 03/15/18 03/16/18 03/16/18 18:59 06:59 18:59 Intake Total 185 / 185 414 / 414 Output Total 1250 / 1250 1125 / 1125 Balance -1065 / -1065 -711 / -711 Weight 59.8 kg Intake: IV 105 / 105 Keppra Inj 500 MG In NS Inj 100 105 / 105 ML @ 400 mls/hr IV.SIG Q12H [facility] Rx#:[id number] Oral 0 / 0 0 / 0 Tube Feeding 0 / 0 294 / 294 Water Bolus Amount 80 / 80 120 / 120 Output: Urine 1250 / 1250 1125 / 1125 Other: Date of Last Bowel Movement 03/15/18 03/16/18 # Bowel Movements 2 2 Result Diagrams: 03/14/18 05:18 03/16/18 05:22 Objective Remarks: GENERAL: Under nourished well, well-developed -[place] male with temporal wasting. SKIN: Warm and dry. HEAD: Normocephalic. EYES: Pupils 3 mm and reactive to pinpoint bilaterally. No scleral icterus. No injection or drainage. ENT: No nasal bleeding or discharge. Mucous membranes pink and moist, very poor dentition. NECK: Trachea midline. No JVD. CARDIOVASCULAR: occasional irregular beat, rate in 80s, sinus on monitor. No murmurs rubs or gallops. RESPIRATORY: Breathing comfortably with no accessory muscle use. Clear to auscultation. Breath sounds equal bilaterally. On room air. GASTROINTESTINAL: Abdomen soft, non-tender, nondistended. Bowel sounds present. MUSCULOSKELETAL: Extremities without clubbing, cyanosis, or edema. No obvious deformities. NEUROLOGICAL: Attempts to answer questions but words are incomprehensible, dysarthric speech, left facial droop.. RAJANI makes eye contact and tracks. Squeezes with right hand and moves right lower extremity to command.. Flexor response to deep noxious stimuli of left lower extremity. Left upper extremity 1/5 at best. Assessment and Plan - Problem List (1) Traumatic brain injury Code(s): S06.9X9A - Unspecified intracranial injury with loss of consciousness of unspecified duration, initial encounter Status: Acute (2) Dysphagia Code(s): R13.10 - Dysphagia, unspecified Status: Acute - Assessment and Plan Plan: Assessment and Plan NEURO: Right frontal intraparenchymal hemorrhage 53.3 cm. Subarachnoid hemorrhage bilat frontal lobes, right parietal lobe, right temporal. Right frontotemporal subdural hematoma 6 mm with 4 mm right to left shift. Fall ?syncope Daily alcohol use Cocaine abuse Monitor neuro status in [facility]. Repeat CT 03/08 with evolution of hemorrhage, vasogenic edema with increased midline shift, 2.2 cm. Continuing mannitol 25 gram IV q6, will continue hyperosmolar therapy and target sodium of 150. Place CVL and increase to 3% @ 40/hr. EEG mild encephalopathy, no seizures. Cardene to maintain systolic blood pressure less than 140, Keppra 500 mg IV every 12 hours CTA brain and neck 03/03/[address] C-spine -negative for acute injury Tylenol as needed for temp >100.4 Dr. Dolan admitted MVI/Thiamine/folic acid supplementation IV Monitor for evidence of alcohol withdrawal. Repeat Head CT 03/15 -> continued impressive mass-effect right frontal lobe with shift RESP: Tobacco abuse Elevated carboxyhemoglobin level consistent with history of smoking Oxygen PRN keep sats>92% Still protecting airway, continue to monitor. Tobacco cessation counseling when he is alert and able to participate. On RA CV: Monitor HR and BP keep MAP>65mmHg Place on Hydralazine 25mg Q8, Norvasc 10 daily. Cardene to maintain SBP <140 as per above. Labetalol prn. GI:. N.p.o. for now until mental status improved. Speech therapy following. Initiate enteral feeds with goal rate 40ml/hr, monitor closely for residuals. FEN/RENAL: Monitor renal function, I/O's, electrolyte replacement protocol. Convert to LR iv fluid. Stop 3% saline. ID: Monitor for signs and symptoms of infection. HEME: Monitor CBC ENDO: Euglycemic. Monitor bedside glucose every 6 hours. PROPH: SCDs and teds for DVT prophylaxis. Pharmacologic DVT prophylaxis is contraindicated due to intracerebral hemorrhage. Famotidine for stress ulcer prophylaxis Full code Overall impression: This gentleman has suitable respiratory spontaneous breathing trials. Repeat head CT reveals continued mass-effect from the hematoma. He has brief apneic episodes are not particularly worrisome, likely caused by mild alkalosis. Will discuss with Neurosurgery Service if it's safe to attempt extubation. (1) Traumatic brain injury Qualifiers: Encounter type: subsequent encounter
[2018-03-16] MEDS: Docusate Sodium Liq 100 MG/10 ML UDC NG/OG SCH ×2 (09:56→21:54)
[2018-03-16] MEDS: Folic Acid 1 MG Tablet PO SCH (09:57)
[2018-03-16] MEDS: Polyethylene Glycol 3350 17 GM Packet NG/OG SCH ×2 (09:57→21:56)
[2018-03-16] MEDS: amLODIPine 10 MG Tablet NG/OG SCH (09:57)
[2018-03-16] MEDS: Sennosides Liq 8.8 MG/5 ML UDC NG/OG SCH ×2 (09:57→21:56)
[2018-03-16] MEDS: Propofol 1000 mg/100 ml Inj 1,000 MG/100 ML BOTTLE IV.CONT PRN (10:21)
--- NOTE | 2018-03-16 12:09 | P.PNNS ---
Subjective Interval history: This morning the patient is quite drowsy when seen but he does have propofol infusing for sedation. He is intubated but on CPAP/PSV settings. He did not follow any commands but had trace movement of the extremities to noxious stimulation to which he opened his eyes as well. Nursing reported that he did move the right hand to command for her earlier this morning. <Cale Nunez E - Last Filed: 03/16/18 11:51> Physical Exam Vital signs: Vital Signs 03/15/18 12:00 03/15/18 12:23 03/15/18 12:25 Temperature 98.7 F Pulse Rate 105 H 113 H Respiratory Rate 15 22 22 Blood Pressure 136/85 Pulse Oximetry 99 99 03/15/18 14:00 03/15/18 16:00 03/15/18 16:25 Temperature 99.0 F Pulse Rate 106 H 108 H Respiratory Rate 15 15 Blood Pressure 129/80 Pulse Oximetry 99 03/15/18 16:31 03/15/18 18:00 03/15/18 20:00 Temperature 98.2 F Pulse Rate 102 H 109 H 111 H Respiratory Rate 15 15 Blood Pressure 135/89 Pulse Oximetry 98 03/15/18 20:30 03/15/18 20:42 03/15/18 22:00 Temperature Pulse Rate 120 H 110 H Respiratory Rate 19 18 Blood Pressure Pulse Oximetry 99 03/16/18 00:00 03/16/18 01:23 03/16/18 01:26 Temperature 99.9 F H Pulse Rate 110 H 113 H Respiratory Rate 15 15 15 Blood Pressure 115/70 Pulse Oximetry 98 98 03/16/18 02:00 03/16/18 03:41 03/16/18 04:00 Temperature 100.5 F H Pulse Rate 112 H 115 H 120 H Respiratory Rate 20 16 Blood Pressure 109/70 Pulse Oximetry 100 99 03/16/18 06:00 03/16/18 09:28 Temperature Pulse Rate 102 H 99 H Respiratory Rate 18 Blood Pressure Pulse Oximetry 100 Intake & Output 03/15/18 03/16/18 03/16/18 18:59 06:59 18:59 Intake Total 1285 / 1285 519 / 519 Output Total 1250 / 1250 1125 / 1125 Balance 35 / 35 -606 / -606 Weight 59.8 kg Intake: IV 1205 / 1205 105 / 105 LR 1000 mL Inj 1,000 ML @ 65 1000 / 1000 mls/hr IV.CONT .[id number] [facility] Rx# :[id number] Diprivan 1000 mg/100 ml Inj 1, 100 / 100 000 mg In 100 ml @ 5 MCG/KG/MIN 1.821 mls/hr IV.CONT TITRATE PRN Rx#:[id number] Keppra Inj 500 MG In NS Inj 100 105 / 105 105 / 105 ML @ 400 mls/hr IV.SIG Q12H [facility] Rx#:[id number] Oral 0 / 0 0 / 0 Tube Feeding 0 / 0 294 / 294 Water Bolus Amount 80 / 80 120 / 120 Output: Urine 1250 / 1250 1125 / 1125 Other: Date of Last Bowel Movement 03/15/18 03/16/18 # Bowel Movements 2 2 Narrative: GENERAL: The patient is quite drowsy this morning but does have propofol infusing at 15 mcg/kg/min for sedation. He is intubated and on CPAP/PSV settings. He is not in any apparent distress. HEENT: Normocephalic, atraumatic. Pupils 2mm reactive bilaterally. Orally intubated. OGT. MUSCULOSKELETAL: Trace movement of all extremities. No evident clubbing or deformity. NEUROLOGICAL: Quite lethargic but sedated. Opens eyes to noxious stimulation. Pupils 2 mm reactive bilaterally. Nonverbal, intubated. Trace movement of all extremities, lower w/flexion, to local noxious stimulation LLE>RLE>LUE>RUE. - Urinary Catheter Management Indwelling Temp Sensing Catheter Cath placed during this visit: yes, but has since been removed by the nurse Reason for continuing: Decision to DC catheter Insertion date: 03/12/18 Insertion time: 05:30 Removal date: 03/14/18 Removal time: 17:00 Indwelling Urethral Catheter Cath placed during this visit: yes, but has since been removed by the nurse Reason for continuing: Decision to DC catheter Removal date: 03/14/18 Removal time: 17:00 <Cale Nunez E - Last Filed: 03/16/18 11:51> Vital signs: Vital Signs 03/22/18 00:00 03/22/18 00:09 03/22/18 02:00 Temperature 99.3 F Pulse Rate 94 H 92 H Respiratory Rate 18 17 Blood Pressure 135/87 Pulse Oximetry 100 100 03/22/18 04:00 03/22/18 04:21 03/22/18 06:00 Temperature 98.3 F Pulse Rate 86 88 Respiratory Rate 15 15 Blood Pressure 114/74 Pulse Oximetry 100 100 03/22/18 08:00 03/22/18 08:15 03/22/18 10:00 Temperature 99.0 F Pulse Rate 77 85 Respiratory Rate 14 9 L Blood Pressure 127/77 Pulse Oximetry 100 100 03/22/18 11:57 03/22/18 12:00 03/22/18 14:00 Temperature 98.8 F Pulse Rate 97 H 84 Respiratory Rate 15 15 Blood Pressure 129/88 Pulse Oximetry 100 100 03/22/18 16:00 03/22/18 16:45 03/22/18 17:18 Temperature 99.4 F Pulse Rate 89 Respiratory Rate 15 15 Blood Pressure 127/76 Pulse Oximetry 100 100 100 03/22/18 18:00 03/22/18 19:00 03/22/18 20:28 Temperature Pulse Rate 92 H 90 Respiratory Rate 15 15 15 Blood Pressure 135/85 151/99 H Pulse Oximetry 99 Intake & Output 03/22/18 03/22/18 03/23/18 06:59 18:59 06:59 Intake Total 342 / 342 1143 / 1143 100 / 100 Output Total 1875 / 1875 1200 / 1200 Balance -1533 / -1533 -57 / -57 100 / 100 Weight 62 kg Intake: IV 305 / 305 100 / 100 Diprivan 1000 mg/100 ml Inj 1, 100 / 100 000 mg In 100 ml @ 5 MCG/KG/MIN 1.821 mls/hr IV.CONT TITRATE PRN Rx#:[id number] Sodium Chloride 23.4% Inj 188 200 / 200 MEQ In NS Inj 1,000 ML @ 42 mls /hr IV.CONT .Q24H [facility] Rx#: [id number] Keppra Inj 500 MG In NS Inj 100 105 / 105 ML @ 400 mls/hr IV.SIG Q12H [facility] Rx#:[id number] Tube Feeding 242 / 242 38 / 38 Tube Irrigant 100 / 100 Anesthesia Amount 800 / 800 Output: Urine 1875 / 1875 1000 / 1000 Gastric Drainage 200 / 200 Right Nare Nasogastric Tube 200 / 200 Other: Date of Last Bowel Movement 03/21/18 03/21/18 # Bowel Movements 0 - Urinary Catheter Management Indwelling Temp Sensing Catheter Cath placed during this visit: no Indwelling Urethral Catheter Cath placed during this visit: no <Harsha Quiles - Last Filed: 03/22/18 22:20> Assessment and Plan - Plan Impression: Patient minimally responsive but sedated. Will open eyes & move all extremities slightly to noxious stimulation. Past 24 hrs: 100.5 T max. Plan: cont neuro checks critical care management <Cale Nunez - Last Filed: 03/16/18 11:51> - Attending Attestation The exam, history, and the medical decision-making described in the above note were completed with the assistance of the mid-level provider. I reviewed and agree with the findings presented. I attest that I had a [id number] encounter with the patient on the same day, and personally performed and documented my assessment and findings in the medical record. Remains awake, relatively responsive. Follows commands right side. Persistent weakness left upper extremity. Continuing ventilatory support <Harsha Quiles - Last Filed: 03/22/18 22:20>
--- NOTE | 2018-03-16 17:19 | P.PNGI ---
Subjective Interval history: Critically ill No response to verbal stimuli Still remains sedated and intubated NG tube with Jevity at 20 cc an hour <Gale Beavers M - Last Filed: 03/16/18 17:13> Physical Exam Vital signs: Vital Signs 03/15/18 18:00 03/15/18 20:00 03/15/18 20:30 Temperature 98.2 F Pulse Rate 109 H 111 H 120 H Respiratory Rate 15 19 Blood Pressure 135/89 Pulse Oximetry 98 03/15/18 20:42 03/15/18 22:00 03/16/18 00:00 Temperature 99.9 F H Pulse Rate 110 H 110 H Respiratory Rate 18 15 Blood Pressure 115/70 Pulse Oximetry 99 98 03/16/18 01:23 03/16/18 01:26 03/16/18 02:00 Temperature Pulse Rate 113 H 112 H Respiratory Rate 15 15 Blood Pressure Pulse Oximetry 98 03/16/18 03:41 03/16/18 04:00 03/16/18 06:00 Temperature 100.5 F H Pulse Rate 115 H 120 H 102 H Respiratory Rate 20 16 Blood Pressure 109/70 Pulse Oximetry 100 99 03/16/18 08:00 03/16/18 09:28 03/16/18 10:00 Temperature 99.1 F Pulse Rate 106 H 99 H 106 H Respiratory Rate 16 18 Blood Pressure 127/86 Pulse Oximetry 100 100 03/16/18 12:00 03/16/18 12:15 03/16/18 16:11 Temperature 99.8 F H Pulse Rate 108 H 96 H 105 H Respiratory Rate 23 18 18 Blood Pressure 112/73 Pulse Oximetry 99 99 99 Intake & Output 03/15/18 03/16/18 03/16/18 18:59 06:59 18:59 Intake Total 1285 / 1285 519 / 519 Output Total 1250 / 1250 1125 / 1125 Balance 35 / 35 -606 / -606 Weight 59.8 kg Intake: IV 1205 / 1205 105 / 105 LR 1000 mL Inj 1,000 ML @ 65 1000 / 1000 mls/hr IV.CONT .[id number] [facility] Rx# :[id number] Diprivan 1000 mg/100 ml Inj 1, 100 / 100 000 mg In 100 ml @ 5 MCG/KG/MIN 1.821 mls/hr IV.CONT TITRATE PRN Rx#:[id number] Keppra Inj 500 MG In NS Inj 100 105 / 105 105 / 105 ML @ 400 mls/hr IV.SIG Q12H [facility] Rx#:[id number] Oral 0 / 0 0 / 0 Tube Feeding 0 / 0 294 / 294 Water Bolus Amount 80 / 80 120 / 120 Output: Urine 1250 / 1250 1125 / 1125 Other: Date of Last Bowel Movement 03/15/18 03/16/18 03/16/18 # Bowel Movements 2 2 - Constitutional chronically ill appearing (Frail) - Routine HEENT Exam Head: Present: normocephalic (Thin frail) ENT: Present: mucous membranes moist - Routine Neck Exam Present: supple (ET tube with mechanical ventilation) - Routine Respiratory Exam Present: decreased breath sounds - Routine Cardiovascular Exam Present: S1, S2 - Routine Abdominal Exam Present: normoactive bowel sounds (Abdomen flat, soft, with soft bowel sounds) - Routine Skin Exam Present: pallor, mottling (Lower extremities) - Urinary Catheter Management Indwelling Temp Sensing Catheter Cath placed during this visit: yes, but has since been removed by the nurse Reason for continuing: Decision to DC catheter Insertion date: 03/12/18 Insertion time: 05:30 Removal date: 03/14/18 Removal time: 17:00 Indwelling Urethral Catheter Cath placed during this visit: yes, but has since been removed by the nurse Reason for continuing: Decision to DC catheter Removal date: 03/14/18 Removal time: 17:00 <Gale Beavers - Last Filed: 03/16/18 17:13> Vital signs: Vital Signs 03/15/18 22:00 03/16/18 00:00 03/16/18 01:23 Temperature 99.9 F H Pulse Rate 110 H 110 H Respiratory Rate 15 15 Blood Pressure 115/70 Pulse Oximetry 98 98 03/16/18 01:26 03/16/18 02:00 03/16/18 03:41 Temperature Pulse Rate 113 H 112 H 115 H Respiratory Rate 15 20 Blood Pressure Pulse Oximetry 100 03/16/18 04:00 03/16/18 06:00 03/16/18 08:00 Temperature 100.5 F H 99.1 F Pulse Rate 120 H 102 H 106 H Respiratory Rate 16 16 Blood Pressure 109/70 127/86 Pulse Oximetry 99 100 03/16/18 09:28 03/16/18 10:00 03/16/18 12:00 Temperature 99.8 F H Pulse Rate 99 H 106 H 108 H Respiratory Rate 18 23 Blood Pressure 112/73 Pulse Oximetry 100 99 03/16/18 12:15 03/16/18 14:00 03/16/18 16:00 Temperature 99.4 F Pulse Rate 96 H 100 H 106 H Respiratory Rate 18 18 Blood Pressure 126/81 Pulse Oximetry 99 99 03/16/18 16:11 03/16/18 18:00 03/16/18 20:21 Temperature Pulse Rate 105 H 108 H 112 H Respiratory Rate 18 17 Blood Pressure Pulse Oximetry 99 100 Intake & Output 03/16/18 03/16/18 03/17/18 06:59 18:59 06:59 Intake Total 519 / 519 366 / 366 Output Total 1125 / 1125 1000 / 1000 Balance -606 / -606 -634 / -634 Weight 59.8 kg Intake: IV 105 / 105 Keppra Inj 500 MG In NS Inj 100 105 / 105 ML @ 400 mls/hr IV.SIG Q12H [facility] Rx#:[id number] Oral 0 / 0 Tube Feeding 294 / 294 246 / 246 Tube Irrigant 120 / 120 Water Bolus Amount 120 / 120 Output: Urine 1125 / 1125 Stool 0 / 0 Urine Amount (Catheter) 1000 / 1000 Indwelling Urethral Catheter 1000 / 1000 Other: Date of Last Bowel Movement 03/16/18 03/15/18 # Bowel Movements 2 0 - Urinary Catheter Management Indwelling Temp Sensing Catheter Cath placed during this visit: no Indwelling Urethral Catheter Cath placed during this visit: no <Matty Lane - Last Filed: 03/16/18 21:20> Results - Labs CBC & Chem 7: 03/14/18 05:18 03/16/18 05:22 Laboratory Results - last 24 hr 03/16/18 05:22 Sodium 152 H Potassium 3.4 L Chloride 115 H Carbon Dioxide 30.6 Anion Gap 6 BUN 24 H Creatinine 0.78 Estimated GFR Greater than 89 Random Glucose 114 H Calcium 8.8 Total Bilirubin 0.4 AST 31 ALT 14 Alkaline Phosphatase 51 Total Protein 7.5 Albumin 2.2 L Microbiology 03/12/18 21:30 Blood - Peripheral Aerobic Blood Culture - Preliminary No growth in 4 days 03/12/18 21:30 Blood - Peripheral Anaerobic Blood Culture - Preliminary No growth in 4 days 03/12/18 21:36 Blood - Peripheral Aerobic Blood Culture - Preliminary No growth in 4 days 03/12/18 21:36 Blood - Peripheral Anaerobic Blood Culture - Preliminary No growth in 4 days - Imaging Impressions Head CT 03/15/18 00:00 CONCLUSION: 1. Evolving right frontal lobe parenchymal hemorrhage with cerebral edema and worsening leftward midline shift. 2. Minimal left frontal and parietal subarachnoid blood without associated mass effect. <Gale Beavers - Last Filed: 03/16/18 17:13> - Labs CBC & Chem 7: 03/14/18 05:18 03/16/18 05:22 Laboratory Results - last 24 hr 03/16/18 05:22 Sodium 152 H Potassium 3.4 L Chloride 115 H Carbon Dioxide 30.6 Anion Gap 6 BUN 24 H Creatinine 0.78 Estimated GFR Greater than 89 Random Glucose 114 H Calcium 8.8 Total Bilirubin 0.4 AST 31 ALT 14 Alkaline Phosphatase 51 Total Protein 7.5 Albumin 2.2 L Microbiology 03/12/18 21:30 Blood - Peripheral Aerobic Blood Culture - Preliminary No growth in 4 days 03/12/18 21:30 Blood - Peripheral Anaerobic Blood Culture - Preliminary No growth in 4 days 03/12/18 21:36 Blood - Peripheral Aerobic Blood Culture - Preliminary No growth in 4 days 03/12/18 21:36 Blood - Peripheral Anaerobic Blood Culture - Preliminary No growth in 4 days <Matty Lane - Last Filed: 03/16/18 21:20> Assessment and Plan - Plan Assessment: - Colonic ileus Pt currently in ICU, admitted on 03/03 after a fall, being managed for intraparenchymal hemorrhage, subarachnoid hemorrhage, frontotemporal subdural hematoma- chronic ETOH abuse According to [facility] notes, pt has been manually disimpacted on 03/12 with minimal stool and placed on a bowel regimen as well as received a dose of Relistor on 03/12- abdomen remains distended and firm CT abdomen and pelvis WO Iv contrast (03/13) Moderate constipation with diffuse ileus. Rectum distended to 8 cm with stool. No small bowel obstruction. No significant free fluid. No free air. Dodge catheter in bladder. NG coiled in stomach. Trace right pleural effusion. KUB (03/14) Colonic ileus 03/15/2018 patient's abdomen is round, taut, with soft minimal bowel sounds. Appears to have some mild distention. Continues to be medical management on ventilator. Noted KUB from 03/14 showed consistent with colonic ileus., Tube feed restarted Jevity at 20 cc an hour, off now. Staff is preparing to possibly extubate noted stools 3 on 03/14/2018 and 1 stool today 03/15/2018. bowel regimen. Rectal tube has been DC'd. Staff states large solid BM plug removed and now liquid consistent. Patient is taking lactulose 4 times a day. We will recheck KUB in the morning but currently patient has soft bowel sounds. Colonic ileus gradual improvement per symptoms 03/16/2018, patient's overall general condition is essentially unchanged if not a little worse per CT left midline shift. Patient is critically ill but tolerating low dose Jevity tube feeds at 20 cc an hour. Abdomen is round very soft minimal bowel sounds, NG tube. GI assisting monitoring colonic ileus which appears to have some gradual improvement. Will recheck KUB in the morning. No obvious melena stools noted. Supportive care Plan: Diet restart Jevity , trickle feeds and monitor residual, after extubation Continue bowel regimen as needed KUB in a.m. Medical management with Reglan Folic acid Anti-medics Pt has been seen per myself and Dr. Lane, note note is written on his behalf <Gale Beavers - Last Filed: 03/16/18 17:13> - Attending Attestation Improved clinically from GI point of view. Will check KUB in AM and advance diet accordingly. Will follow up with you. <Matty Lane - Last Filed: 03/16/18 21:20>
[2018-03-17] MEDS: hydrALAZINE 25 MG Tablet PO SCH ×5 (02:58→23:00)
[2018-03-17] MEDS: Artificial Tears Opth Drops 15 ML Bottle EACH EYE SCH ×3 (03:02→17:27)
[2018-03-17] MEDS: Oral Hygiene Kit OROPHARYNG SCH ×5 (03:02→23:11)
[2018-03-17 07:02] LABS: Anion Gap 6 meq/L (5-15); Aspartate Aminotransferase 30 U/L (15-37); Blood Urea Nitrogen 19 mg/dL (7-18); Calcium 8.7 mg/dL (8.5-10.1); Carbon Dioxide 31.2 meq/L (21.0-32.0); Chloride 115 meq/L (98-107); Glomerular Filtration Rate Greater Than 89 mL/min (>89); Glucose,Random 104 mg/dL (74-106); Potassium 3.2 meq/L (3.5-5.1); Sodium 152 meq/L (136-145)
[2018-03-17 07:03] LABS: Alanine Aminotransferase 12 U/L (12-78)
[2018-03-17 07:06] LABS: Alkaline Phosphatase 51 U/L (45-117); Total Protein 7.3 g/dL (6.4-8.2)
--- NOTE | 2018-03-17 08:40 | XR ---
EXAM DATE: 03/17/2018 8:24 AM EDT AGE/SEX: 62 years / Male INDICATIONS: Constipation. CLINICAL DATA: This is the patient's subsequent encounter. Patient reports that signs and symptoms h ave been present for 3 days and indicates a pain score of Nonresponsive. MEDICAL/SURGICAL HISTORY: Asthma. Chronic obstructive pulmonary disease. None. COMPARISON: [facility], ABDOMEN 1V KUB, 03/14/2018. . FINDINGS: 2 supine frontal views of the abdomen show reduction in the gaseous distention of the colon. Gas is seen scattered throughout the colon reaching the level the rectal vault. No dilated loops of small teto wel. Endotracheal tube noted. Nasogastric tube with the tip in the lower thoracic esophagus. Osteoart hritis of the hip joints. No organomegaly. CONCLUSION: Reduction in the gaseous distention of the colon. Electronically signed by: Marco A Soto MD 03/17/2018 8:38 AM EDT
[2018-03-17] MEDS: amLODIPine 10 MG Tablet NG/OG SCH (10:02)
[2018-03-17] MEDS: Folic Acid 1 MG Tablet PO SCH (10:02)
[2018-03-17] MEDS: Chlorhexidine 0.12% Oral Kit 15 ML UDC OROPHARYNG SCH ×2 (10:02→21:46)
[2018-03-17] MEDS: Docusate Sodium Liq 100 MG/10 ML UDC NG/OG SCH ×2 (10:02→21:46)
[2018-03-17] MEDS: Polyethylene Glycol 3350 17 GM Packet NG/OG SCH ×2 (10:03→21:49)
[2018-03-17] MEDS: Sennosides Liq 8.8 MG/5 ML UDC NG/OG SCH ×2 (10:04→22:59)
--- NOTE | 2018-03-17 10:46 | P.PNGI ---
Subjective Interval history: Pt remains orally intubated on CPAP. on Propofol for sedation. TF running at 20 mL/hr. <Tracie Chacon - Last Filed: 03/17/18 10:44> Physical Exam Vital signs: Vital Signs 03/16/18 12:00 03/16/18 12:15 03/16/18 14:00 Temperature 99.8 F H Pulse Rate 108 H 96 H 100 H Respiratory Rate 23 18 Blood Pressure 112/73 Pulse Oximetry 99 99 03/16/18 16:00 03/16/18 16:11 03/16/18 18:00 Temperature 99.4 F Pulse Rate 106 H 105 H 108 H Respiratory Rate 18 18 Blood Pressure 126/81 Pulse Oximetry 99 99 03/16/18 20:00 03/16/18 20:21 03/16/18 22:00 Temperature 99.4 F Pulse Rate 106 H 112 H 102 H Respiratory Rate 19 17 Blood Pressure 121/78 Pulse Oximetry 98 100 03/16/18 23:32 03/17/18 00:00 03/17/18 01:49 Temperature 99.5 F Pulse Rate 104 H 107 H Respiratory Rate 15 15 15 Blood Pressure 123/82 Pulse Oximetry 99 100 03/17/18 02:00 03/17/18 03:28 03/17/18 04:00 Temperature 99.3 F Pulse Rate 107 H 94 H 103 H Respiratory Rate 15 15 Blood Pressure 114/78 Pulse Oximetry 99 03/17/18 04:29 03/17/18 06:00 03/17/18 08:44 Temperature Pulse Rate 102 H 98 H Respiratory Rate 15 13 Blood Pressure Pulse Oximetry 100 100 Intake & Output 03/16/18 03/17/18 03/17/18 18:59 06:59 18:59 Intake Total 471 / 471 1526 / 1526 Output Total 1000 / 1000 1700 / 1700 Balance -529 / -529 -174 / -174 Weight 63.3 kg Intake: IV 105 / 105 1105 / 1105 LR 1000 mL Inj 1,000 ML @ 65 1000 / 1000 mls/hr IV.CONT .[id number] [facility] Rx# :[id number] Keppra Inj 500 MG In NS Inj 100 105 / 105 105 / 105 ML @ 400 mls/hr IV.SIG Q12H [facility] Rx#:[id number] Oral 0 / 0 Tube Feeding 246 / 246 181 / 181 Tube Irrigant 120 / 120 Water Bolus Amount 240 / 240 Output: Urine 700 / 700 Stool 0 / 0 0 / 0 Urine Amount (Catheter) 1000 / 1000 1000 / 1000 Indwelling Urethral Catheter 1000 / 1000 1000 / 1000 Other: Date of Last Bowel Movement 03/15/18 03/17/18 # Bowel Movements 0 1 Weight On Admission 59.8 kg - Constitutional no acute distress - Routine HEENT Exam Head: Present: normocephalic, atraumatic - Routine Respiratory Exam Present: patient mechanically ventilated - Routine Cardiovascular Exam Present: RRR - Routine Abdominal Exam Present: soft, normoactive bowel sounds. Absent: distended, rebound, guarding, firm - Routine Skin Exam Present: dry, warm - Routine Neurological Exam on sedation - Urinary Catheter Management Indwelling Temp Sensing Catheter Cath placed during this visit: yes, but has since been removed by the nurse Reason for continuing: Decision to DC catheter Insertion date: 03/12/18 Insertion time: 05:30 Removal date: 03/14/18 Removal time: 17:00 Indwelling Urethral Catheter Cath placed during this visit: yes, but has since been removed by the nurse Reason for continuing: Decision to DC catheter Removal date: 03/14/18 Removal time: 17:00 <Tracie Chacon - Last Filed: 03/17/18 10:44> Vital signs: Vital Signs 03/16/18 12:15 03/16/18 14:00 03/16/18 16:00 Temperature 99.4 F Pulse Rate 96 H 100 H 106 H Respiratory Rate 18 18 Blood Pressure 126/81 Pulse Oximetry 99 99 03/16/18 16:11 03/16/18 18:00 03/16/18 20:00 Temperature 99.4 F Pulse Rate 105 H 108 H 106 H Respiratory Rate 18 19 Blood Pressure 121/78 Pulse Oximetry 99 98 03/16/18 20:21 03/16/18 22:00 03/16/18 23:32 Temperature Pulse Rate 112 H 102 H 104 H Respiratory Rate 17 15 Blood Pressure Pulse Oximetry 100 03/17/18 00:00 03/17/18 01:49 03/17/18 02:00 Temperature 99.5 F Pulse Rate 107 H 107 H Respiratory Rate 15 15 Blood Pressure 123/82 Pulse Oximetry 99 100 03/17/18 03:28 03/17/18 04:00 07/12/18 04:29 Temperature 99.3 F Pulse Rate 94 H 103 H Respiratory Rate 15 15 15 Blood Pressure 114/78 Pulse Oximetry 99 100 03/17/18 06:00 03/17/18 08:44 Temperature Pulse Rate 102 H 98 H Respiratory Rate 13 Blood Pressure Pulse Oximetry 100 Intake & Output 03/16/18 03/17/18 03/17/18 18:59 06:59 18:59 Intake Total 471 / 471 1526 / 1526 Output Total 1000 / 1000 1700 / 1700 Balance -529 / -529 -174 / -174 Weight 63.3 kg Intake: IV 105 / 105 1105 / 1105 LR 1000 mL Inj 1,000 ML @ 65 1000 / 1000 mls/hr IV.CONT .[id number] [facility] Rx# :[id number] Keppra Inj 500 MG In NS Inj 100 105 / 105 105 / 105 ML @ 400 mls/hr IV.SIG Q12H [facility] Rx#:[id number] Oral 0 / 0 Tube Feeding 246 / 246 181 / 181 Tube Irrigant 120 / 120 Water Bolus Amount 240 / 240 Output: Urine 700 / 700 Stool 0 / 0 0 / 0 Urine Amount (Catheter) 1000 / 1000 1000 / 1000 Indwelling Urethral Catheter 1000 / 1000 1000 / 1000 Other: Date of Last Bowel Movement 03/15/18 03/17/18 # Bowel Movements 0 1 Weight On Admission 59.8 kg - Urinary Catheter Management Indwelling Temp Sensing Catheter Cath placed during this visit: no Indwelling Urethral Catheter Cath placed during this visit: no <Matty Lane - Last Filed: 03/17/18 12:04> Results - Labs CBC & Chem 7: 03/14/18 05:18 03/17/18 06:04 Laboratory Results - last 24 hr 03/17/18 06:04 Sodium 152 H Potassium 3.2 L Chloride 115 H Carbon Dioxide 31.2 Anion Gap 6 BUN 19 H Creatinine 0.69 Estimated GFR Greater than 89 Random Glucose 104 Calcium 8.7 Total Bilirubin 0.3 AST 30 ALT 12 Alkaline Phosphatase 51 Total Protein 7.3 Albumin 2.0 L Microbiology 03/12/18 21:30 Blood - Peripheral Aerobic Blood Culture - Preliminary No growth in 4 days 03/12/18 21:30 Blood - Peripheral Anaerobic Blood Culture - Preliminary No growth in 4 days 03/12/18 21:36 Blood - Peripheral Aerobic Blood Culture - Preliminary No growth in 4 days 03/12/18 21:36 Blood - Peripheral Anaerobic Blood Culture - Preliminary No growth in 4 days - Imaging Impressions Abdomen X-Ray 03/17/18 08:00 CONCLUSION: Reduction in the gaseous distention of the colon. <Tracie Chacon - Last Filed: 03/17/18 10:44> - Labs CBC & Chem 7: 03/14/18 05:18 03/17/18 06:04 Laboratory Results - last 24 hr 03/17/18 06:04 Sodium 152 H Potassium 3.2 L Chloride 115 H Carbon Dioxide 31.2 Anion Gap 6 BUN 19 H Creatinine 0.69 Estimated GFR Greater than 89 Random Glucose 104 Calcium 8.7 Total Bilirubin 0.3 AST 30 ALT 12 Alkaline Phosphatase 51 Total Protein 7.3 Albumin 2.0 L Microbiology 03/12/18 21:30 Blood - Peripheral Aerobic Blood Culture - Final No growth in 5 days 03/12/18 21:30 Blood - Peripheral Anaerobic Blood Culture - Final No growth in 5 days 03/12/18 21:36 Blood - Peripheral Aerobic Blood Culture - Final No growth in 5 days 03/12/18 21:36 Blood - Peripheral Anaerobic Blood Culture - Final No growth in 5 days - Imaging Impressions Abdomen X-Ray 03/17/18 08:00 CONCLUSION: Reduction in the gaseous distention of the colon. <Matty Lane - Last Filed: 03/17/18 12:04> Assessment and Plan - Plan Assessment: - Colonic ileus Pt currently in ICU, admitted on 03/03 after a fall, being managed for intraparenchymal hemorrhage, subarachnoid hemorrhage, frontotemporal subdural hematoma- chronic ETOH abuse According to [facility] notes, pt has been manually disimpacted on 03/12 with minimal stool and placed on a bowel regimen as well as received a dose of Relistor on 03/12- abdomen remains distended and firm CT abdomen and pelvis WO Iv contrast (03/13) Moderate constipation with diffuse ileus. Rectum distended to 8 cm with stool. No small bowel obstruction. No significant free fluid. No free air. Dodge catheter in bladder. NG coiled in stomach. Trace right pleural effusion. KUB (03/14) Colonic ileus (03/17) Pt tolerating TF at 20 mL/hr. Repeat KUB from this AM --> Reduction in the gaseous distention of the colon. Plan: Increase TF as tolerated Maintain bowel regimen GI will sign off, please reconsult as needed Pt has been seen and examined by myself and Dr. Lane and this note is written on his behalf <Tracie Chacon - Last Filed: 03/17/18 10:44> - Attending Attestation As above, will follow up with you as needed. please reconsult for needed again. <Matty Lane - Last Filed: 03/17/18 12:04>
--- NOTE | 2018-03-17 11:46 | P.PNCC ---
Subjective Subjective Remarks/Hospital Course: 03/03: 62-year-old -[place] male with past medical history of COPD/asthma , tobacco abuse, daily alcohol use who presented to [facility] emergency department after a fall. Patient told EM provider that he was mopping the floor with some chemicals when he felt lightheaded and fell hitting the back of his head. Patient complained of vertigo. CT brain showed right frontal intraparenchymal hemorrhage 5 x 3.3 cm with subarachnoid hemorrhage bilateral frontal lobes, right parietal and right temporal lobes. There is a component of acute subdural hematoma along the right frontoparietal lobe that is 6 mm. There is 4 mm of subfalcine herniation to the left. He is not on anticoagulation but takes aspirin daily. He complained of headache and has received Dilaudid 0.2 mg IV in the ED. BP went up to 183/99 and he was started on Cardene and BP now 144/74 on 5mg/hr. He denied nausea, vomiting, cough, fevers or chills. CTA brain/neck demonstrate no vascular abnormality. He has been admitted by Dr. Dolan and [facility] has been consulted to assist in medical management of ICH as well as workup for syncope. He said that his son had brought him to the emergency department for evaluation however upon evaluation in the ED the son was not present and there was no phone number available for him. 03/04: Resting in bed. Drowsy, arousable. Not following commands. 03/05: Resting in bed. Drowsy, easily arousable. Squeezes with both hands on command. 03/06: More awake, following commands. Dysarthric. Left-sided weakness persists. 03/07 Patient is awake on room air oxygen when seen. Follows commands. 03/08 Reportedly was cooperative and conversant with PT yesterday, oriented x3. Today will follow commands but is lethargic, no comprehensible words. No witnessed seizure. Subjective: 03/09 CT brain yesterday with evolving R frontal lobe hematoma, vasogenic edema with 2.2 cm right to left midline shift. EEG mild encephalopathy, no seizure. He continues to protect his airway, follows commands on the right. 03/09 CT brain yesterday with evolving R frontal lobe hematoma, vasogenic edema with 2.2 cm right to left midline shift. EEG mild encephalopathy, no seizure. He continues to protect his airway, follows commands on the right. 03/10: Awake and alert. Follows commands on the right. Protecting airway currently. On 3% saline. 03/11:Drowsy, easily arousable at the time of my evaluation this morning, moves right upper and lower extremity. speech unclear (mumbles). 03/12: Intubated yesterday secondary to altered mental status and copious thick secretions. Tube feeds of been resumed. Bowel regimen resume. SUBJECTIVE: 03/13: Afebrile. Lessening sedation. Off will follow commands right upper extremity. Withdraws bilateral x-rays. Flaccid left upper extremity. Tolerating tube feeds. Disimpacted yesterday. Not sufficiently abdomen still distended will check CT abdomen/pelvis with oral contrast today 03/14: Had small BM, abdomen not distended. Will hold pain meds to encourage bowel activity. 03/15: Hold extubation due to hematoma mass-effect and episodic apnea spells. He does tolerate CPAP trials otherwise. 03/16: He does reasonably well on spontaneous breathing trials with the exception of periodic brief episodes of apnea. Head CT yesterday reveals continued mass-effect from the right frontal lobe hematoma. Serum osmolality has been greater than 320 and it would appear that we have maximized efforts to reduce cerebral edema. We will attempt extubation when neurosurgical service feels it is appropriate. 03/17: Osmolality is acceptable. Tolerate CPAP trials but major concern is whether he can protect his airway or not following extubation. Will discuss with neurosurgery the appropriateness of Objective Vital Signs / I&O: Vital Signs 03/16/18 12:00 03/16/18 12:15 03/16/18 14:00 Temperature 99.8 F H Pulse Rate 108 H 96 H 100 H Respiratory Rate 23 18 Blood Pressure 112/73 Pulse Oximetry 99 99 03/16/18 16:00 03/16/18 16:11 03/16/18 18:00 Temperature 99.4 F Pulse Rate 106 H 105 H 108 H Respiratory Rate 18 18 Blood Pressure 126/81 Pulse Oximetry 99 99 03/16/18 20:00 03/16/18 20:21 03/16/18 22:00 Temperature 99.4 F Pulse Rate 106 H 112 H 102 H Respiratory Rate 19 17 Blood Pressure 121/78 Pulse Oximetry 98 100 03/16/18 23:32 03/17/18 00:00 03/17/18 01:49 Temperature 99.5 F Pulse Rate 104 H 107 H Respiratory Rate 15 15 15 Blood Pressure 123/82 Pulse Oximetry 99 100 03/17/18 02:00 03/17/18 03:28 03/17/18 04:00 Temperature 99.3 F Pulse Rate 107 H 94 H 103 H Respiratory Rate 15 15 Blood Pressure 114/78 Pulse Oximetry 99 03/17/18 04:29 03/17/18 06:00 03/17/18 08:44 Temperature Pulse Rate 102 H 98 H Respiratory Rate 15 13 Blood Pressure Pulse Oximetry 100 100 Intake & Output 03/16/18 03/17/18 03/17/18 18:59 06:59 18:59 Intake Total 471 / 471 1526 / 1526 Output Total 1000 / 1000 1700 / 1700 Balance -529 / -529 -174 / -174 Weight 63.3 kg Intake: IV 105 / 105 1105 / 1105 LR 1000 mL Inj 1,000 ML @ 65 1000 / 1000 mls/hr IV.CONT .[id number] PEDRO LUIS Rx# :[id number] Keppra Inj 500 MG In NS Inj 100 105 / 105 105 / 105 ML @ 400 mls/hr IV.SIG Q12H PEDRO LUIS Rx#:[id number] Oral 0 / 0 Tube Feeding 246 / 246 181 / 181 Tube Irrigant 120 / 120 Water Bolus Amount 240 / 240 Output: Urine 700 / 700 Stool 0 / 0 0 / 0 Urine Amount (Catheter) 1000 / 1000 1000 / 1000 Indwelling Urethral Catheter 1000 / 1000 1000 / 1000 Other: Date of Last Bowel Movement 03/15/18 03/17/18 # Bowel Movements 0 1 Weight On Admission 59.8 kg Result Diagrams: 03/14/18 05:18 03/17/18 06:04 Objective Remarks: GENERAL: Under nourished well, well-developed -[place]aj[place] male with temporal wasting. SKIN: Warm and dry. HEAD: Normocephalic. EYES: Pupils 3 mm and reactive to pinpoint bilaterally. No scleral icterus. No injection or drainage. ENT: No nasal bleeding or discharge. Mucous membranes pink and moist, very poor dentition. NECK: Trachea midline. No JVD. CARDIOVASCULAR: Regular rhythm, rate in 80s, sinus on monitor. No murmurs rubs or gallops. No JVD RESPIRATORY: Breathing comfortably with no accessory muscle use. Clear to auscultation. Breath sounds equal bilaterally. On room air. GASTROINTESTINAL: Abdomen soft, non-tender, nondistended. Bowel sounds present. MUSCULOSKELETAL: Extremities without clubbing, cyanosis, or edema. No obvious deformities. Warm, well-perfused NEUROLOGICAL: On mechanical ventilation. Left facial droop. RAJANI makes eye contact and tracks. Squeezes with right hand and moves right lower extremity to command.. Flexor response to deep noxious stimuli of left lower extremity. Left upper extremity 1/5 at best. Assessment and Plan - Problem List (1) Traumatic brain injury Code(s): S06.9X9A - Unspecified intracranial injury with loss of consciousness of unspecified duration, initial encounter Status: Acute (2) Dysphagia Code(s): R13.10 - Dysphagia, unspecified Status: Acute - Assessment and Plan Plan: Assessment and Plan NEURO: Right frontal intraparenchymal hemorrhage 53.3 cm. Subarachnoid hemorrhage bilat frontal lobes, right parietal lobe, right temporal. Right frontotemporal subdural hematoma 6 mm with 4 mm right to left shift. Fall ?syncope Daily alcohol use Cocaine abuse Monitor neuro status in [facility]. Repeat CT 03/08 with evolution of hemorrhage, vasogenic edema with increased midline shift, 2.2 cm. Continuing mannitol 25 gram IV q6, will continue hyperosmolar therapy and target sodium of 150. Place CVL and increase to 3% @ 40/hr. EEG mild encephalopathy, no seizures. Cardene to maintain systolic blood pressure less than 140, Keppra 500 mg IV every 12 hours CTA brain and neck 03/03/[address] C-spine -negative for acute injury Tylenol as needed for temp >100.4 Dr. Dolan admitted MVI/Thiamine/folic acid supplementation IV Monitor for evidence of alcohol withdrawal. Repeat Head CT 03/15 -> continued impressive mass-effect right frontal lobe with shift RESP: Tobacco abuse Elevated carboxyhemoglobin level consistent with history of smoking Oxygen PRN keep sats>92% Still protecting airway, continue to monitor. Tobacco cessation counseling when he is alert and able to participate. On RA CV: Monitor HR and BP keep MAP>65mmHg Place on Hydralazine 25mg Q8, Norvasc 10 daily. Cardene to maintain SBP <140 as per above. Labetalol prn. GI:. N.p.o. for now until mental status improved. Speech therapy following. Initiate enteral feeds with goal rate 40ml/hr, monitor closely for residuals. FEN/RENAL: Monitor renal function, I/O's, electrolyte replacement protocol. Convert to LR iv fluid. Stop 3% saline. ID: Monitor for signs and symptoms of infection. HEME: Monitor CBC ENDO: Euglycemic. Monitor bedside glucose every 6 hours. PROPH: SCDs and teds for DVT prophylaxis. Pharmacologic DVT prophylaxis is contraindicated due to intracerebral hemorrhage. Famotidine for stress ulcer prophylaxis Full code Overall impression: This gentleman has acceptable spontaneous breathing trials. Repeat head CT reveals continued mass-effect from the hematoma. He has brief apneic episodes are not particularly worrisome, likely caused by mild alkalosis. Will discuss with Neurosurgery Service if it's safe to attempt extubation. He may need to go straight to tracheostomy. (1) Traumatic brain injury Qualifiers: Encounter type: subsequent encounter
[2018-03-17] MEDS: Propofol 1000 mg/100 ml Inj 1,000 MG/100 ML BOTTLE IV.CONT PRN (22:02)
[2018-03-18] MEDS: Artificial Tears Opth Drops 15 ML Bottle EACH EYE SCH ×3 (03:03→16:38)
[2018-03-18] MEDS: Oral Hygiene Kit OROPHARYNG SCH ×3 (03:27→16:38)
[2018-03-18] MEDS: hydrALAZINE 25 MG Tablet PO SCH ×3 (04:26→16:38)
[2018-03-18 05:53] LABS: Anion Gap 7 meq/L (5-15); Blood Urea Nitrogen 15 mg/dL (7-18); Calcium 8.2 mg/dL (8.5-10.1); Carbon Dioxide 30.3 meq/L (21.0-32.0); Chloride 113 meq/L (98-107); Glomerular Filtration Rate Greater Than 89 mL/min (>89); Glucose,Random 109 mg/dL (74-106); Potassium 3.2 meq/L (3.5-5.1); Sodium 150 meq/L (136-145)
--- NOTE | 2018-03-18 10:04 | P.PNCC ---
Subjective Subjective Remarks/Hospital Course: 03/03: 62-year-old -[place] male with past medical history of COPD/asthma , tobacco abuse, daily alcohol use who presented to [facility] emergency department after a fall. Patient told EM provider that he was mopping the floor with some chemicals when he felt lightheaded and fell hitting the back of his head. Patient complained of vertigo. CT brain showed right frontal intraparenchymal hemorrhage 5 x 3.3 cm with subarachnoid hemorrhage bilateral frontal lobes, right parietal and right temporal lobes. There is a component of acute subdural hematoma along the right frontoparietal lobe that is 6 mm. There is 4 mm of subfalcine herniation to the left. He is not on anticoagulation but takes aspirin daily. He complained of headache and has received Dilaudid 0.2 mg IV in the ED. BP went up to 183/99 and he was started on Cardene and BP now 144/74 on 5mg/hr. He denied nausea, vomiting, cough, fevers or chills. CTA brain/neck demonstrate no vascular abnormality. He has been admitted by Dr. Dolan and [facility] has been consulted to assist in medical management of ICH as well as workup for syncope. He said that his son had brought him to the emergency department for evaluation however upon evaluation in the ED the son was not present and there was no phone number available for him. 03/04: Resting in bed. Drowsy, arousable. Not following commands. 03/05: Resting in bed. Drowsy, easily arousable. Squeezes with both hands on command. 03/06: More awake, following commands. Dysarthric. Left-sided weakness persists. 03/07 Patient is awake on room air oxygen when seen. Follows commands. 03/08 Reportedly was cooperative and conversant with PT yesterday, oriented x3. Today will follow commands but is lethargic, no comprehensible words. No witnessed seizure. Subjective: 03/09 CT brain yesterday with evolving R frontal lobe hematoma, vasogenic edema with 2.2 cm right to left midline shift. EEG mild encephalopathy, no seizure. He continues to protect his airway, follows commands on the right. 03/09 CT brain yesterday with evolving R frontal lobe hematoma, vasogenic edema with 2.2 cm right to left midline shift. EEG mild encephalopathy, no seizure. He continues to protect his airway, follows commands on the right. 03/10: Awake and alert. Follows commands on the right. Protecting airway currently. On 3% saline. 03/11:Drowsy, easily arousable at the time of my evaluation this morning, moves right upper and lower extremity. speech unclear (mumbles). 03/12: Intubated yesterday secondary to altered mental status and copious thick secretions. Tube feeds of been resumed. Bowel regimen resume. SUBJECTIVE: 03/13: Afebrile. Lessening sedation. Off will follow commands right upper extremity. Withdraws bilateral x-rays. Flaccid left upper extremity. Tolerating tube feeds. Disimpacted yesterday. Not sufficiently abdomen still distended will check CT abdomen/pelvis with oral contrast today 03/14: Had small BM, abdomen not distended. Will hold pain meds to encourage bowel activity. 03/15: Hold extubation due to hematoma mass-effect and episodic apnea spells. He does tolerate CPAP trials otherwise. 03/16: He does reasonably well on spontaneous breathing trials with the exception of periodic brief episodes of apnea. Head CT yesterday reveals continued mass-effect from the right frontal lobe hematoma. Serum osmolality has been greater than 320 and it would appear that we have maximized efforts to reduce cerebral edema. We will attempt extubation when neurosurgical service feels it is appropriate. 03/17: Osmolality is acceptable. Tolerate CPAP trials but major concern is whether he can protect his airway or not following extubation. Will discuss with neurosurgery the appropriateness of trial extubation versus proceeding directly to tracheostomy. 03/18: Serum osmolality remains well concentrated. We will attempt trial extubation today. Objective Vital Signs / I&O: Vital Signs 03/17/18 12:00 03/17/18 13:00 03/17/18 14:00 Temperature 99.1 F Pulse Rate 94 H 103 H 94 H Respiratory Rate 13 26 H Blood Pressure 121/74 Pulse Oximetry 98 03/17/18 16:00 03/17/18 16:18 03/17/18 18:00 Temperature 98.1 F Pulse Rate 100 H 106 H Respiratory Rate 20 Blood Pressure 115/74 Pulse Oximetry 99 100 03/17/18 19:39 03/17/18 20:00 03/17/18 22:00 Temperature 98.7 F Pulse Rate 102 H 106 H Respiratory Rate 20 16 Blood Pressure 116/77 Pulse Oximetry 100 100 03/17/18 23:55 03/18/18 00:00 03/18/18 02:00 Temperature 98.8 F Pulse Rate 99 H 101 H Respiratory Rate 15 17 Blood Pressure 132/86 Pulse Oximetry 100 100 03/18/18 03:38 03/18/18 04:00 03/18/18 06:00 Temperature 98.8 F Pulse Rate 96 H 92 H Respiratory Rate 15 15 Blood Pressure 121/78 Pulse Oximetry 100 03/18/18 09:28 Temperature Pulse Rate Respiratory Rate 19 Blood Pressure Pulse Oximetry Intake & Output 03/17/18 03/18/18 03/18/18 18:59 06:59 18:59 Intake Total 1610 / 1610 1463 / 1463 Output Total 1350 / 1350 1100 / 1100 Balance 260 / 260 363 / 363 Weight 62.7 kg Intake: IV 1105 / 1105 1000 / 1000 LR 1000 mL Inj 1,000 ML @ 65 1000 / 1000 1000 / 1000 mls/hr IV.CONT .[id number] PEDRO [facility]IS Rx# :[id number] Keppra Inj 500 MG In NS Inj 100 105 / 105 ML @ 400 mls/hr IV.SIG Q12H PEDRO LUIS Rx#:[id number] Oral 0 / 0 0 / 0 Tube Feeding 265 / 265 223 / 223 Tube Irrigant 0 / 0 Water Bolus Amount 240 / 240 240 / 240 Output: Urine 1100 / 1100 Stool 0 / 0 Urine Amount (Catheter) 1350 / 1350 Indwelling Urethral Catheter 1350 / 1350 Other: Date of Last Bowel Movement 03/17/18 03/18/18 03/18/18 # Bowel Movements 0 2 Result Diagrams: 03/14/18 05:18 03/18/18 05:11 Objective Remarks: GENERAL: Under nourished, well-developed -[place] male with temporal wasting. SKIN: Warm and dry. HEAD: Normocephalic. EYES: Pupils 2 mm and reactive to pinpoint bilaterally. No scleral icterus. No injection or drainage. ENT: No nasal bleeding or discharge. Mucous membranes pink and moist, very poor dentition. NECK: Trachea midline. Orotracheal intubation. CARDIOVASCULAR: Regular rhythm, rate in 80-90s, sinus on monitor. No murmurs rubs or gallops. No JVD RESPIRATORY: Breathing comfortably with no accessory muscle use. Clear to auscultation. Breath sounds equal bilaterally. GASTROINTESTINAL: Abdomen soft, non-tender, nondistended. Bowel sounds present. MUSCULOSKELETAL: Extremities without clubbing, cyanosis, or edema. No obvious deformities. Warm, well-perfused NEUROLOGICAL: On mechanical ventilation. Left facial droop. RAJANI makes eye contact and tracks. Squeezes with right hand and moves right lower extremity to command.. Flexor response to deep noxious stimuli of left lower extremity. Left upper extremity 1/5 at best. Assessment and Plan - Problem List (1) Traumatic brain injury Code(s): S06.9X9A - Unspecified intracranial injury with loss of consciousness of unspecified duration, initial encounter Status: Acute (2) Dysphagia Code(s): R13.10 - Dysphagia, unspecified Status: Acute - Assessment and Plan Plan: Assessment and Plan NEURO: Right frontal intraparenchymal hemorrhage 53.3 cm. Subarachnoid hemorrhage bilat frontal lobes, right parietal lobe, right temporal. Right frontotemporal subdural hematoma 6 mm with 4 mm right to left shift. Fall ?syncope Daily alcohol use Cocaine abuse Monitor neuro status in [facility]. Repeat CT 03/08 with evolution of hemorrhage, vasogenic edema with increased midline shift, 2.2 cm. Continuing mannitol 25 gram IV q6, will continue hyperosmolar therapy and target sodium of 150. Place CVL and increase to 3% @ 40/hr. EEG mild encephalopathy, no seizures. Cardene to maintain systolic blood pressure less than 140, Keppra 500 mg IV every 12 hours CTA brain and neck 03/03/[address] C-spine -negative for acute injury Tylenol as needed for temp >100.4 Dr. Dolan admitted MVI/Thiamine/folic acid supplementation IV Monitor for evidence of alcohol withdrawal. Repeat Head CT 03/15 -> continued impressive mass-effect right frontal lobe with shift RESP: Tobacco abuse Elevated carboxyhemoglobin level consistent with history of smoking Oxygen PRN keep sats>92% Still protecting airway, continue to monitor. Tobacco cessation counseling when he is alert and able to participate. On RA CV: Monitor HR and BP keep MAP>65mmHg Place on Hydralazine 25mg Q8, Norvasc 10 daily. Cardene to maintain SBP <140 as per above. Labetalol prn. GI:. N.p.o. for now until mental status improved. Speech therapy following. Initiate enteral feeds with goal rate 40ml/hr, monitor closely for residuals. FEN/RENAL: Monitor renal function, I/O's, electrolyte replacement protocol. Convert to LR iv fluid. 3% saline has been stopped. ID: Monitor for signs and symptoms of infection. HEME: Monitor CBC ENDO: Euglycemic. Monitor bedside glucose every 6 hours. PROPH: SCDs and teds for DVT prophylaxis. Pharmacologic DVT prophylaxis is contraindicated due to intracerebral hemorrhage. Famotidine for stress ulcer prophylaxis Full code status Overall impression: This gentleman has acceptable spontaneous breathing trials. Repeat head CT reveals continued mass-effect from the hematoma. He has brief apneic episodes are not particularly worrisome, likely caused by mild alkalosis. Meets criteria for extubation, will attempt today. (1) Traumatic brain injury Qualifiers: Encounter type: subsequent encounter
[2018-03-18] MEDS: Folic Acid 1 MG Tablet PO SCH (10:13)
[2018-03-18] MEDS: Docusate Sodium Liq 100 MG/10 ML UDC NG/OG SCH ×2 (10:13→21:38)
[2018-03-18] MEDS: Chlorhexidine 0.12% Oral Kit 15 ML UDC OROPHARYNG SCH ×2 (10:15→21:36)
[2018-03-18] MEDS: amLODIPine 10 MG Tablet NG/OG SCH (10:15)
[2018-03-18] MEDS: Sennosides Liq 8.8 MG/5 ML UDC NG/OG SCH ×2 (10:16→21:37)
[2018-03-18] MEDS: Polyethylene Glycol 3350 17 GM Packet NG/OG SCH ×2 (10:17→21:37)
--- NOTE | 2018-03-18 13:06 | P.DIET ---
Nutritional Evaluation Type of nutrition evaluation: initial Nutrition consult regarding: Tube Feeding Objective - Diagnosis ICH, SAH, Syncope - Objective % IBW: 87 (IBW = 166#) Body Weight Used for Calculations: Actual (65.4 kg) Energy Needs - Lower Range (kCal/kg): 28 Energy Needs - Upper Range (kCal/kg): 33 Lower Limit kCal/kg (kCals): 1,831 Upper Limit kCal/kg (kCals): 2,158 Lower Limit Protein Factor (Grams per Kg): 1.2 Upper Limit Protein Factor (Grams per Kg): 1.5 Lower Protein Needs (Protein): 79 Upper Protein Needs (Protein): 98 Dietitian Reviewed in Medical Record: Curent medications, Intake & Output, Labs , Medical history, Tube feeding Diet Order: NPO Objective Comments: PMH: COPD, Asthma, tobacco abuse, daily ETOH use Feeding - Current Tube Feeding Tube Feeding Product: Jevity 1.5 Tube Feeding Rate: 20 (mls/hr) Assessment Assessment: Pt remains at high nutrition risk 2' to his need for TFing. To meet needs with Jevity 1.5, recommend a goal rate of 55 mls/hr to provide 1980 kcals, 84 gms protein and 1003 mls of free water. Labs, wts and clinical course reviewed. CBW = 62.7 kg. LBM (03/18). Recommendations: TF Jevity 1.5 with goal rate 55 ml/hr Dietitian to Monitor: Lab values, Intake & Output, Tube feeding tolerance, Weight change, Residuals, Medical course
--- NOTE | 2018-03-18 17:36 | P.PNNS ---
Subjective Interval history: When seen this afternoon the patient is awake. He continues to be intubated and mechanically ventilated. He does not have any sedation infusing. He did move the right side extremities to command and the left lower to touch. He had no response with the left upper. <Cale Nunez E - Last Filed: 03/18/18 17:39> Physical Exam Vital signs: Vital Signs 03/17/18 18:00 03/17/18 19:39 03/17/18 20:00 Temperature 98.7 F Pulse Rate 106 H 102 H Respiratory Rate 20 16 Blood Pressure 116/77 Pulse Oximetry 100 100 03/17/18 22:00 03/17/18 23:55 03/18/18 00:00 Temperature 98.8 F Pulse Rate 106 H 99 H Respiratory Rate 15 17 Blood Pressure 132/86 Pulse Oximetry 100 100 03/18/18 02:00 03/18/18 03:38 03/18/18 04:00 Temperature 98.8 F Pulse Rate 101 H 96 H Respiratory Rate 15 15 Blood Pressure 121/78 Pulse Oximetry 100 03/18/18 06:00 03/18/18 09:28 03/18/18 16:36 Temperature Pulse Rate 92 H Respiratory Rate 19 15 Blood Pressure Pulse Oximetry 99 Intake & Output 03/17/18 03/18/18 03/18/18 18:59 06:59 18:59 Intake Total 1610 / 1610 1568 / 1568 Output Total 1350 / 1350 1100 / 1100 Balance 260 / 260 468 / 468 Weight 62.7 kg Intake: IV 1105 / 1105 1105 / 1105 LR 1000 mL Inj 1,000 ML @ 65 1000 / 1000 1000 / 1000 mls/hr IV.CONT .[id number] [facility] Rx# :[id number] Keppra Inj 500 MG In NS Inj 100 105 / 105 105 / 105 ML @ 400 mls/hr IV.SIG Q12H [facility] Rx#:[id number] Oral 0 / 0 0 / 0 Tube Feeding 265 / 265 223 / 223 Tube Irrigant 0 / 0 Water Bolus Amount 240 / 240 240 / 240 Output: Urine 1100 / 1100 Stool 0 / 0 Urine Amount (Catheter) 1350 / 1350 Indwelling Urethral Catheter 1350 / 1350 Other: Date of Last Bowel Movement 03/17/18 03/18/18 # Bowel Movements 0 2 Narrative: GENERAL: The patient awake & alert. He is intubated and on PRVC A/C settings. He is not in any apparent distress. HEENT: Normocephalic, atraumatic. Pupils 2mm reactive bilaterally. Orally intubated. OGT. MUSCULOSKELETAL: Moves right side to command & left lower to stimulation, no response w/left upper. No evident clubbing or deformity. NEUROLOGICAL: Awake & alert. Spontaneous eye opening. Pupils 2 mm reactive bilaterally. Nonverbal, intubated. Follows simple commands. Lifts RUE slightly off bed & moves RLE slightly to command, trace muscle contraction & toe movement to light touch & local noxious stimulation of LLE, no response w/LUE to local noxious stimulation but did have facial grimacing. - Urinary Catheter Management Indwelling Temp Sensing Catheter Cath placed during this visit: yes, but has since been removed by the nurse Reason for continuing: Decision to DC catheter Insertion date: 03/12/18 Insertion time: 05:30 Removal date: 03/14/18 Removal time: 17:00 Indwelling Urethral Catheter Cath placed during this visit: yes, but has since been removed by the nurse Reason for continuing: Decision to DC catheter Removal date: 03/14/18 Removal time: 17:00 <Cale Nunez E - Last Filed: 03/18/18 17:39> Vital signs: Vital Signs 03/22/18 00:00 03/22/18 00:09 03/22/18 02:00 Temperature 99.3 F Pulse Rate 94 H 92 H Respiratory Rate 18 17 Blood Pressure 135/87 Pulse Oximetry 100 100 03/22/18 04:00 03/22/18 04:21 03/22/18 06:00 Temperature 98.3 F Pulse Rate 86 88 Respiratory Rate 15 15 Blood Pressure 114/74 Pulse Oximetry 100 100 03/22/18 08:00 03/22/18 08:15 03/22/18 10:00 Temperature 99.0 F Pulse Rate 77 85 Respiratory Rate 14 9 L Blood Pressure 127/77 Pulse Oximetry 100 100 03/22/18 11:57 03/22/18 12:00 03/22/18 14:00 Temperature 98.8 F Pulse Rate 97 H 84 Respiratory Rate 15 15 Blood Pressure 129/88 Pulse Oximetry 100 100 03/22/18 16:00 03/22/18 16:45 03/22/18 17:18 Temperature 99.4 F Pulse Rate 89 Respiratory Rate 15 15 Blood Pressure 127/76 Pulse Oximetry 100 100 100 03/22/18 18:00 03/22/18 19:00 03/22/18 20:28 Temperature Pulse Rate 92 H 90 Respiratory Rate 15 15 15 Blood Pressure 135/85 151/99 H Pulse Oximetry 99 Intake & Output 03/22/18 03/22/18 03/23/18 06:59 18:59 06:59 Intake Total 342 / 342 1143 / 1143 100 / 100 Output Total 1875 / 1875 1200 / 1200 Balance -1533 / -1533 -57 / -57 100 / 100 Weight 62 kg Intake: IV 305 / 305 100 / 100 Diprivan 1000 mg/100 ml Inj 1, 100 / 100 000 mg In 100 ml @ 5 MCG/KG/MIN 1.821 mls/hr IV.CONT TITRATE PRN Rx#:[id number] Sodium Chloride 23.4% Inj 188 200 / 200 MEQ In NS Inj 1,000 ML @ 42 mls /hr IV.CONT .Q24H [facility] Rx#: [id number] Keppra Inj 500 MG In NS Inj 100 105 / 105 ML @ 400 mls/hr IV.SIG Q12H [facility] Rx#:[id number] Tube Feeding 242 / 242 38 / 38 Tube Irrigant 100 / 100 Anesthesia Amount 800 / 800 Output: Urine 1875 / 1875 1000 / 1000 Gastric Drainage 200 / 200 Right Nare Nasogastric Tube 200 / 200 Other: Date of Last Bowel Movement 03/21/18 03/21/18 # Bowel Movements 0 - Urinary Catheter Management Indwelling Temp Sensing Catheter Cath placed during this visit: no Indwelling Urethral Catheter Cath placed during this visit: no <Harsha Quiles - Last Filed: 03/22/18 22:20> Assessment and Plan - Plan Impression: 1. Right ICH Patient awake & alert. Moves right side to command & left lower to stimulation, no response w/left upper. Past 24 hrs: Afebrile. Intermittent tachycardia. Plan: Cont critical care management Continue neuro checks, non surgical treatment Wean mchanical ventilation. Continue aggressive pulmonary toilette, nasotracheal suction, and breathing treatments with nebulizers. Protonix for stress ulcer prophylaxis [place] stringer and SCD's for DVT prophylaxis <Nicholas,Cale E - Last Filed: 03/18/18 17:39> - Attending Attestation The exam, history, and the medical decision-making described in the above note were completed with the assistance of the mid-level provider. I reviewed and agree with the findings presented. I attest that I had a [id number] encounter with the patient on the same day, and personally performed and documented my assessment and findings in the medical record. <Harsha Quiles - Last Filed: 03/22/18 22:20>
[2018-03-18] MEDS: Potassium Chloride 25 MEQ Effervescent Tablet PO PRN (18:11)
[2018-03-19] MEDS: Artificial Tears Opth Drops 15 ML Bottle EACH EYE SCH ×3 (01:05→18:06)
[2018-03-19] MEDS: Oral Hygiene Kit OROPHARYNG SCH ×4 (01:05→18:06)
[2018-03-19] MEDS: hydrALAZINE 25 MG Tablet PO SCH ×4 (01:05→18:06)
[2018-03-19 05:44] LABS: Anion Gap 8 meq/L (5-15); Blood Urea Nitrogen 11 mg/dL (7-18); Calcium 8.4 mg/dL (8.5-10.1); Carbon Dioxide 29.2 meq/L (21.0-32.0); Chloride 113 meq/L (98-107); Glomerular Filtration Rate Greater Than 89 mL/min (>89); Glucose,Random 104 mg/dL (74-106); Potassium 3.5 meq/L (3.5-5.1); Sodium 150 meq/L (136-145)
[2018-03-19] MEDS: Docusate Sodium Liq 100 MG/10 ML UDC NG/OG SCH ×2 (09:43→20:59)
[2018-03-19] MEDS: Polyethylene Glycol 3350 17 GM Packet NG/OG SCH ×2 (09:43→20:59)
[2018-03-19] MEDS: Sennosides Liq 8.8 MG/5 ML UDC NG/OG SCH ×2 (09:44→20:59)
[2018-03-19] MEDS: Folic Acid 1 MG Tablet PO SCH (09:56)
[2018-03-19] MEDS: amLODIPine 10 MG Tablet NG/OG SCH (09:56)
[2018-03-19] MEDS: Chlorhexidine 0.12% Oral Kit 15 ML UDC OROPHARYNG SCH ×2 (09:57→21:00)
--- NOTE | 2018-03-19 10:40 | P.PNCC ---
Subjective Subjective Remarks/Hospital Course: 03/03: 62-year-old -Swedish male with past medical history of COPD/asthma , tobacco abuse, daily alcohol use who presented to [facility] emergency department after a fall. Patient told EM provider that he was mopping the floor with some chemicals when he felt lightheaded and fell hitting the back of his head. Patient complained of vertigo. CT brain showed right frontal intraparenchymal hemorrhage 5 x 3.3 cm with subarachnoid hemorrhage bilateral frontal lobes, right parietal and right temporal lobes. There is a component of acute subdural hematoma along the right frontoparietal lobe that is 6 mm. There is 4 mm of subfalcine herniation to the left. He is not on anticoagulation but takes aspirin daily. He complained of headache and has received Dilaudid 0.2 mg IV in the ED. BP went up to 183/99 and he was started on Cardene and BP now 144/74 on 5mg/hr. He denied nausea, vomiting, cough, fevers or chills. CTA brain/neck demonstrate no vascular abnormality. He has been admitted by Dr. Dolan and [facility] has been consulted to assist in medical management of ICH as well as workup for syncope. He said that his son had brought him to the emergency department for evaluation however upon evaluation in the ED the son was not present and there was no phone number available for him. 03/04: Resting in bed. Drowsy, arousable. Not following commands. 03/05: Resting in bed. Drowsy, easily arousable. Squeezes with both hands on command. 03/06: More awake, following commands. Dysarthric. Left-sided weakness persists. 03/07 Patient is awake on room air oxygen when seen. Follows commands. 03/08 Reportedly was cooperative and conversant with PT yesterday, oriented x3. Today will follow commands but is lethargic, no comprehensible words. No witnessed seizure. Subjective: 03/09 CT brain yesterday with evolving R frontal lobe hematoma, vasogenic edema with 2.2 cm right to left midline shift. EEG mild encephalopathy, no seizure. He continues to protect his airway, follows commands on the right. 03/09 CT brain yesterday with evolving R frontal lobe hematoma, vasogenic edema with 2.2 cm right to left midline shift. EEG mild encephalopathy, no seizure. He continues to protect his airway, follows commands on the right. 03/10: Awake and alert. Follows commands on the right. Protecting airway currently. On 3% saline. 03/11:Drowsy, easily arousable at the time of my evaluation this morning, moves right upper and lower extremity. speech unclear (mumbles). 03/12: Intubated yesterday secondary to altered mental status and copious thick secretions. Tube feeds of been resumed. Bowel regimen resume. SUBJECTIVE: 03/13: Afebrile. Lessening sedation. Off will follow commands right upper extremity. Withdraws bilateral x-rays. Flaccid left upper extremity. Tolerating tube feeds. Disimpacted yesterday. Not sufficiently abdomen still distended will check CT abdomen/pelvis with oral contrast today 03/14: Had small BM, abdomen not distended. Will hold pain meds to encourage bowel activity. 03/15: Hold extubation due to hematoma mass-effect and episodic apnea spells. He does tolerate CPAP trials otherwise. 03/16: He does reasonably well on spontaneous breathing trials with the exception of periodic brief episodes of apnea. Head CT yesterday reveals continued mass-effect from the right frontal lobe hematoma. Serum osmolality has been greater than 320 and it would appear that we have maximized efforts to reduce cerebral edema. We will attempt extubation when neurosurgical service feels it is appropriate. 03/17: Osmolality is acceptable. Tolerate CPAP trials but major concern is whether he can protect his airway or not following extubation. Will discuss with neurosurgery the appropriateness of trial extubation versus proceeding directly to tracheostomy. 03/18: Serum osmolality remains well concentrated. We will attempt trial extubation today. 03/19: On spontaneous breathing trials his tidal volumes are only about 200 cc and he does not have the strength to cough. In the context of his copious secretions and minimal respiratory effort he will be a high risk for aspiration and pneumonia. We have made numerous attempts to contact suppose it family members without success. We continue to try to update family. He will need a tracheostomy. Objective Vital Signs / I&O: Vital Signs 03/18/18 12:00 03/18/18 16:00 03/18/18 16:36 Temperature 98 F 98.6 F Pulse Rate Respiratory Rate 15 15 15 Blood Pressure 140/57 L 117/70 Pulse Oximetry 99 03/18/18 20:00 03/18/18 22:00 03/18/18 22:57 Temperature 98.9 F Pulse Rate 102 H 93 H Respiratory Rate 23 15 Blood Pressure 125/75 Pulse Oximetry 100 03/19/18 00:00 03/19/18 00:15 03/19/18 02:00 Temperature 99.1 F Pulse Rate 104 H 91 H Respiratory Rate 15 15 Blood Pressure 131/83 Pulse Oximetry 100 03/19/18 03:47 03/19/18 04:00 03/19/18 06:00 Temperature 98.6 F Pulse Rate 90 90 Respiratory Rate 15 15 Blood Pressure 145/94 H Pulse Oximetry 100 03/19/18 08:00 03/19/18 09:09 Temperature Pulse Rate 88 Respiratory Rate 15 Blood Pressure Pulse Oximetry 100 Intake & Output 03/18/18 03/19/18 03/19/18 18:59 06:59 18:59 Intake Total 422 / 422 1493 / 1493 Output Total 1400 / 1400 1450 / 1450 Balance -978 / -978 43 / 43 Weight 61.6 kg Intake: IV 105 / 105 1105 / 1105 LR 1000 mL Inj 1,000 ML @ 65 1000 / 1000 mls/hr IV.CONT .[id number] [facility] Rx# :[id number] Keppra Inj 500 MG In NS Inj 100 105 / 105 105 / 105 ML @ 400 mls/hr IV.SIG Q12H [facility] Rx#:[id number] Oral 0 / 0 Tube Feeding 197 / 197 268 / 268 Tube Irrigant 120 / 120 120 / 120 Output: Urine 1450 / 1450 Stool 0 / 0 Urine Amount (Catheter) 1400 / 1400 Indwelling Urethral Catheter 1400 / 1400 Other: Date of Last Bowel Movement 03/18/18 03/18/18 # Bowel Movements 2 Result Diagrams: 03/14/18 05:18 03/19/18 04:17 Objective Remarks: GENERAL: Under nourished, well-developed -Swedish male with temporal wasting. SKIN: Warm and dry. HEAD: Normocephalic. EYES: Pupils 2 mm and reactive to pinpoint bilaterally. No scleral icterus. No injection or drainage. ENT: No nasal bleeding or discharge. Mucous membranes pink and moist, very poor dentition. NECK: Trachea midline. Orotracheal intubation. CARDIOVASCULAR: Regular rhythm, rate in 80s, sinus on monitor. No murmurs rubs or gallops. No JVD RESPIRATORY: Breathing comfortably with no accessory muscle use. Clear to auscultation. Breath sounds equal bilaterally. GASTROINTESTINAL: Abdomen soft, non-tender, nondistended. Bowel sounds present. MUSCULOSKELETAL: Extremities without clubbing, cyanosis, or edema. No obvious deformities. Warm, well-perfused NEUROLOGICAL: On mechanical ventilation. Left facial droop. RAJANI makes eye contact and tracks. Squeezes with right hand and moves right lower extremity to command.. Flexor response to deep noxious stimuli of left lower extremity. Left upper extremity 1/5 at best. Poor cough effort. Assessment and Plan - Problem List (1) Traumatic brain injury Code(s): S06.9X9A - Unspecified intracranial injury with loss of consciousness of unspecified duration, initial encounter Status: Acute (2) Dysphagia Code(s): R13.10 - Dysphagia, unspecified Status: Acute - Assessment and Plan Plan: Assessment and Plan NEURO: Right frontal intraparenchymal hemorrhage 53.3 cm. Subarachnoid hemorrhage bilat frontal lobes, right parietal lobe, right temporal. Right frontotemporal subdural hematoma 6 mm with 4 mm right to left shift. Fall ?syncope Daily alcohol use Cocaine abuse Monitor neuro status in [facility]. Repeat CT 03/08 with evolution of hemorrhage, vasogenic edema with increased midline shift, 2.2 cm. Continuing mannitol 25 gram IV q6, will continue hyperosmolar therapy and target sodium of 150. Place CVL and increase to 3% @ 40/hr. EEG mild encephalopathy, no seizures. Cardene to maintain systolic blood pressure less than 140, Keppra 500 mg IV every 12 hours CTA brain and neck 03/03/[address] C-spine -negative for acute injury Tylenol as needed for temp >100.4 Dr. Dolan admitted MVI/Thiamine/folic acid supplementation IV Monitor for evidence of alcohol withdrawal. Repeat Head CT 03/15 -> continued impressive mass-effect right frontal lobe with shift RESP: Tobacco abuse Elevated carboxyhemoglobin level consistent with history of smoking Oxygen PRN keep sats>92% Still protecting airway, continue to monitor. Tobacco cessation counseling when he is alert and able to participate. On RA CV: Monitor HR and BP keep MAP>65mmHg Place on Hydralazine 25mg Q8, Norvasc 10 daily. Cardene to maintain SBP <140 as per above. Labetalol prn. GI:. N.p.o. for now until mental status improved. Speech therapy following. Initiate enteral feeds with goal rate 40ml/hr, monitor closely for residuals. FEN/RENAL: Monitor renal function, I/O's, electrolyte replacement protocol. Convert to LR iv fluid. 3% saline has been stopped. ID: Monitor for signs and symptoms of infection. HEME: Monitor CBC ENDO: Euglycemic. Monitor bedside glucose every 6 hours. PROPH: SCDs and teds for DVT prophylaxis. Pharmacologic DVT prophylaxis is contraindicated due to intracerebral hemorrhage. Famotidine for stress ulcer prophylaxis Full code status Overall impression: This gentleman has acceptable spontaneous breathing trials but his air movement is poor and tidal volumes are inadequate for successful extubation. Furthermore, he has a weak cough effort and copious secretions. Repeat head CT reveals continued mass-effect from the hematoma. He has brief apneic episodes are not particularly worrisome, likely caused by mild alkalosis. Fails to meet criteria for extubation, will need a tracheostomy. (1) Traumatic brain injury Qualifiers: Encounter type: subsequent encounter
[2018-03-19] MEDS: Propofol 1000 mg/100 ml Inj 1,000 MG/100 ML BOTTLE IV.CONT PRN ×2 (11:25→18:35)
[2018-03-19] MEDS: Hyoscyamine Inj 0.5 MG/ML Ampul IV.PUSH PRN (13:11)
--- NOTE | 2018-03-19 15:32 | P.PNNS ---
Subjective Interval history: The patient is lethargic today but does have propofol infusing for sedation. He continues to be intubated and mechanically ventilated. He moved all extremities to stimulation but did not follow any commands. <Cale Nunez E - Last Filed: 03/19/18 15:35> Physical Exam Vital signs: Vital Signs 03/18/18 16:00 03/18/18 16:36 03/18/18 20:00 Temperature 98.6 F 98.9 F Pulse Rate 102 H Respiratory Rate 15 15 23 Blood Pressure 117/70 125/75 Pulse Oximetry 99 03/18/18 22:00 03/18/18 22:57 03/19/18 00:00 Temperature 99.1 F Pulse Rate 93 H 104 H Respiratory Rate 15 15 Blood Pressure 131/83 Pulse Oximetry 100 03/19/18 00:15 03/19/18 02:00 03/19/18 03:47 Temperature Pulse Rate 91 H Respiratory Rate 15 15 Blood Pressure Pulse Oximetry 100 100 03/19/18 04:00 03/19/18 06:00 03/19/18 08:00 Temperature 98.6 F 98.0 F Pulse Rate 90 90 106 H Respiratory Rate 15 Blood Pressure 145/94 H 121/72 Pulse Oximetry 17 L 03/19/18 09:09 03/19/18 12:00 03/19/18 13:25 Temperature 98.4 F Pulse Rate Respiratory Rate 15 18 Blood Pressure 107/61 Pulse Oximetry 100 95 100 Intake & Output 03/18/18 03/19/18 03/19/18 18:59 06:59 18:59 Intake Total 422 / 422 1493 / 1493 1100 / 1100 Output Total 1400 / 1400 1450 / 1450 Balance -978 / -978 43 / 43 1100 / 1100 Weight 61.6 kg Intake: IV 105 / 105 1105 / 1105 1100 / 1100 LR 1000 mL Inj 1,000 ML @ 65 1000 / 1000 1000 / 1000 mls/hr IV.CONT .[id number] [facility] Rx# :[id number] Diprivan 1000 mg/100 ml Inj 1, 100 / 100 000 mg In 100 ml @ 5 MCG/KG/MIN 1.821 mls/hr IV.CONT TITRATE PRN Rx#:[id number] Keppra Inj 500 MG In NS Inj 100 105 / 105 105 / 105 ML @ 400 mls/hr IV.SIG Q12H [facility] Rx#:[id number] Oral 0 / 0 Tube Feeding 197 / 197 268 / 268 Tube Irrigant 120 / 120 120 / 120 Output: Urine 1450 / 1450 Stool 0 / 0 Urine Amount (Catheter) 1400 / 1400 Indwelling Urethral Catheter 1400 / 1400 Other: Date of Last Bowel Movement 03/18/18 03/18/18 # Bowel Movements 2 Narrative: GENERAL: The patient is lethargic. Briefly opens eyes to noxious stimulation. He has propofol infusing at 40 mcg/kg/min infusing for sedation. He is intubated and on PRVC A/C settings. He is not in any apparent distress. HEENT: Normocephalic, atraumatic. Pupils 2mm reactive bilaterally. Orally intubated. OGT. MUSCULOSKELETAL: [place] to varying degrees to stimulation. No evident clubbing or deformity. NEUROLOGICAL: Lethargic but sedated. Briefly opens eyes to local noxious stimulation. Pupils 2 mm reactive bilaterally. Nonverbal, intubated. Did not follow any commands. Moved RUE>LLE>LUE to local noxious stimulation, moved right foot to avoid noxious stimulation. LUE appeared to be extension. - Urinary Catheter Management Indwelling Temp Sensing Catheter Cath placed during this visit: yes, but has since been removed by the nurse Reason for continuing: Decision to DC catheter Insertion date: 03/12/18 Insertion time: 05:30 Removal date: 03/14/18 Removal time: 17:00 Indwelling Urethral Catheter Cath placed during this visit: yes, but has since been removed by the nurse Reason for continuing: Decision to DC catheter Removal date: 03/14/18 Removal time: 17:00 <Cale Nunez E - Last Filed: 03/19/18 15:35> Vital signs: Vital Signs 03/22/18 00:00 03/22/18 00:09 03/22/18 02:00 Temperature 99.3 F Pulse Rate 94 H 92 H Respiratory Rate 18 17 Blood Pressure 135/87 Pulse Oximetry 100 100 03/22/18 04:00 03/22/18 04:21 03/22/18 06:00 Temperature 98.3 F Pulse Rate 86 88 Respiratory Rate 15 15 Blood Pressure 114/74 Pulse Oximetry 100 100 03/22/18 08:00 03/22/18 08:15 03/22/18 10:00 Temperature 99.0 F Pulse Rate 77 85 Respiratory Rate 14 9 L Blood Pressure 127/77 Pulse Oximetry 100 100 03/22/18 11:57 03/22/18 12:00 03/22/18 14:00 Temperature 98.8 F Pulse Rate 97 H 84 Respiratory Rate 15 15 Blood Pressure 129/88 Pulse Oximetry 100 100 03/22/18 16:00 03/22/18 16:45 03/22/18 17:18 Temperature 99.4 F Pulse Rate 89 Respiratory Rate 15 15 Blood Pressure 127/76 Pulse Oximetry 100 100 100 03/22/18 18:00 03/22/18 19:00 03/22/18 20:28 Temperature Pulse Rate 92 H 90 Respiratory Rate 15 15 15 Blood Pressure 135/85 151/99 H Pulse Oximetry 99 Intake & Output 03/22/18 03/22/18 03/23/18 06:59 18:59 06:59 Intake Total 342 / 342 1143 / 1143 100 / 100 Output Total 1875 / 1875 1200 / 1200 Balance -1533 / -1533 -57 / -57 100 / 100 Weight 62 kg Intake: IV 305 / 305 100 / 100 Diprivan 1000 mg/100 ml Inj 1, 100 / 100 000 mg In 100 ml @ 5 MCG/KG/MIN 1.821 mls/hr IV.CONT TITRATE PRN Rx#:[id number] Sodium Chloride 23.4% Inj 188 200 / 200 MEQ In NS Inj 1,000 ML @ 42 mls /hr IV.CONT .Q24H [facility] Rx#: [id number] Keppra Inj 500 MG In NS Inj 100 105 / 105 ML @ 400 mls/hr IV.SIG Q12H [facility] Rx#:[id number] Tube Feeding 242 / 242 38 / 38 Tube Irrigant 100 / 100 Anesthesia Amount 800 / 800 Output: Urine 1875 / 1875 1000 / 1000 Gastric Drainage 200 / 200 Right Nare Nasogastric Tube 200 / 200 Other: Date of Last Bowel Movement 03/21/18 03/21/18 # Bowel Movements 0 - Urinary Catheter Management Indwelling Temp Sensing Catheter Cath placed during this visit: no Indwelling Urethral Catheter Cath placed during this visit: no <Harsha Quiles - Last Filed: 03/22/18 22:21> Assessment and Plan - Plan Impression: 1. Right ICH Patient awake & alert. Moves right side to command & left lower to stimulation, no response w/left upper. Past 24 hrs: Afebrile. Intermittent tachycardia. Reviewed labs for today. Sodium 150. Plan: Cont critical care management Continue neuro checks, non surgical treatment Wean mchanical ventilation. Continue aggressive pulmonary toilette, nasotracheal suction, and breathing treatments with nebulizers. Protonix for stress ulcer prophylaxis [place] hose and SCD's for DVT prophylaxis <Cale Nunez - Last Filed: 03/19/18 15:35> - Attending Attestation The exam, history, and the medical decision-making described in the above note were completed with the assistance of the mid-level provider. I reviewed and agree with the findings presented. I attest that I had a [id number] encounter with the patient on the same day, and personally performed and documented my assessment and findings in the medical record. <Harsha Quiles - Last Filed: 03/22/18 22:21>
[2018-03-20] MEDS: hydrALAZINE 25 MG Tablet PO SCH ×5 (00:18→22:43)
[2018-03-20] MEDS: Oral Hygiene Kit OROPHARYNG SCH ×4 (00:18→18:12)
[2018-03-20] MEDS: Artificial Tears Opth Drops 15 ML Bottle EACH EYE SCH ×3 (00:18→18:13)
[2018-03-20] MEDS: Propofol 1000 mg/100 ml Inj 1,000 MG/100 ML BOTTLE IV.CONT PRN ×3 (02:38→21:11)
[2018-03-20] MEDS: Hyoscyamine Inj 0.5 MG/ML Ampul IV.PUSH PRN ×3 (04:39→22:43)
[2018-03-20 05:22] LABS: Baso % (Auto) 0.3 % (0.0-2.0); Eos # (Auto) 0.1 th/mm3 (0.0-0.4); Eos % (Auto) 1.7 % (0.0-4.0); Hematocrit 32.2 % (39.0-51.0); Hemoglobin 10.5 gm/dL (13.0-17.0); Lymph % (Auto) 14.1 % (9.0-44.0); Mean Corpuscular HGB Conc 32.5 % (32.0-36.0); Mean Corpuscular Volume 95.3 fL (80.0-100.0); Mono # (Auto) 0.4 th/mm3 (0.0-0.9); Mono % (Auto) 5.7 % (0.0-8.0); Neut # (Auto) 5.4 th/mm3 (1.8-7.7); Neut % (Auto) 78.2 % (16.0-70.0); Platelet Count 328 th/mm3 (150-450); Red Blood Count 3.38 mil/mm3 (4.50-5.90); Red Cell Distribution Width 12.7 % (11.6-17.2); White Blood Count 6.9 th/mm3 (4.0-11.0)
[2018-03-20 05:40] LABS: Anion Gap 7 meq/L (5-15); Blood Urea Nitrogen 12 mg/dL (7-18); Calcium 7.9 mg/dL (8.5-10.1); Carbon Dioxide 28.6 meq/L (21.0-32.0); Chloride 112 meq/L (98-107); Glomerular Filtration Rate Greater Than 89 mL/min (>89); Glucose,Random 114 mg/dL (74-106); Potassium 3.1 meq/L (3.5-5.1); Sodium 148 meq/L (136-145)
[2018-03-20] MEDS: Potassium Chlor 20 mEq Premix 20 MEQ/100 ML PIGGYBACK IV.SIG PRN ×2 (08:22→10:28)
[2018-03-20] MEDS: amLODIPine 10 MG Tablet NG/OG SCH (08:27)
[2018-03-20] MEDS: Folic Acid 1 MG Tablet PO SCH (08:27)
[2018-03-20] MEDS: Chlorhexidine 0.12% Oral Kit 15 ML UDC OROPHARYNG SCH ×2 (08:28→20:06)
[2018-03-20] MEDS: Polyethylene Glycol 3350 17 GM Packet NG/OG SCH ×2 (08:28→20:06)
[2018-03-20] MEDS: Docusate Sodium Liq 100 MG/10 ML UDC NG/OG SCH ×2 (08:28→20:06)
[2018-03-20] MEDS: Sennosides Liq 8.8 MG/5 ML UDC NG/OG SCH ×2 (08:29→20:06)
--- NOTE | 2018-03-20 11:37 | P.PNCC ---
Subjective Subjective Remarks/Hospital Course: 03/03: 62-year-old -Finnish male with past medical history of COPD/asthma , tobacco abuse, daily alcohol use who presented to [facility] emergency department after a fall. Patient told EM provider that he was mopping the floor with some chemicals when he felt lightheaded and fell hitting the back of his head. Patient complained of vertigo. CT brain showed right frontal intraparenchymal hemorrhage 5 x 3.3 cm with subarachnoid hemorrhage bilateral frontal lobes, right parietal and right temporal lobes. There is a component of acute subdural hematoma along the right frontoparietal lobe that is 6 mm. There is 4 mm of subfalcine herniation to the left. He is not on anticoagulation but takes aspirin daily. He complained of headache and has received Dilaudid 0.2 mg IV in the ED. BP went up to 183/99 and he was started on Cardene and BP now 144/74 on 5mg/hr. He denied nausea, vomiting, cough, fevers or chills. CTA brain/neck demonstrate no vascular abnormality. He has been admitted by Dr. Dolan and [facility] has been consulted to assist in medical management of ICH as well as workup for syncope. He said that his son had brought him to the emergency department for evaluation however upon evaluation in the ED the son was not present and there was no phone number available for him. 03/04: Resting in bed. Drowsy, arousable. Not following commands. 03/05: Resting in bed. Drowsy, easily arousable. Squeezes with both hands on command. 03/06: More awake, following commands. Dysarthric. Left-sided weakness persists. 03/07 Patient is awake on room air oxygen when seen. Follows commands. 03/08 Reportedly was cooperative and conversant with PT yesterday, oriented x3. Today will follow commands but is lethargic, no comprehensible words. No witnessed seizure. Subjective: 03/09 CT brain yesterday with evolving R frontal lobe hematoma, vasogenic edema with 2.2 cm right to left midline shift. EEG mild encephalopathy, no seizure. He continues to protect his airway, follows commands on the right. 03/09 CT brain yesterday with evolving R frontal lobe hematoma, vasogenic edema with 2.2 cm right to left midline shift. EEG mild encephalopathy, no seizure. He continues to protect his airway, follows commands on the right. 03/10: Awake and alert. Follows commands on the right. Protecting airway currently. On 3% saline. 03/11:Drowsy, easily arousable at the time of my evaluation this morning, moves right upper and lower extremity. speech unclear (mumbles). 03/12: Intubated yesterday secondary to altered mental status and copious thick secretions. Tube feeds of been resumed. Bowel regimen resume. SUBJECTIVE: 03/13: Afebrile. Lessening sedation. Off will follow commands right upper extremity. Withdraws bilateral x-rays. Flaccid left upper extremity. Tolerating tube feeds. Disimpacted yesterday. Not sufficiently abdomen still distended will check CT abdomen/pelvis with oral contrast today 03/14: Had small BM, abdomen not distended. Will hold pain meds to encourage bowel activity. 03/15: Hold extubation due to hematoma mass-effect and episodic apnea spells. He does tolerate CPAP trials otherwise. 03/16: He does reasonably well on spontaneous breathing trials with the exception of periodic brief episodes of apnea. Head CT yesterday reveals continued mass-effect from the right frontal lobe hematoma. Serum osmolality has been greater than 320 and it would appear that we have maximized efforts to reduce cerebral edema. We will attempt extubation when neurosurgical service feels it is appropriate. 03/17: Osmolality is acceptable. Tolerate CPAP trials but major concern is whether he can protect his airway or not following extubation. Will discuss with neurosurgery the appropriateness of trial extubation versus proceeding directly to tracheostomy. 03/18: Serum osmolality remains well concentrated. We will attempt trial extubation today. 03/19: On spontaneous breathing trials his tidal volumes are only about 200 cc and he does not have the strength to cough. In the context of his copious secretions and minimal respiratory effort he will be a high risk for aspiration and pneumonia. We have made numerous attempts to contact suppose it family members without success. We continue to try to update family. He will need a tracheostomy. 03/20: Spontaneous breathing trials continued to be sporadically successful. It is doubtful he will protect his airway. We are looking for family to consent for a tracheostomy. Objective Vital Signs / I&O: Vital Signs 03/19/18 12:00 03/19/18 13:25 03/19/18 16:00 Temperature 98.4 F 98.5 F Pulse Rate 99 H Respiratory Rate 18 Blood Pressure 107/61 118/80 Pulse Oximetry 95 100 100 03/19/18 18:00 03/19/18 20:00 03/19/18 20:08 Temperature 98.8 F Pulse Rate 84 Respiratory Rate 15 15 15 Blood Pressure 118/76 Pulse Oximetry 100 100 100 03/19/18 22:00 03/19/18 23:43 03/20/18 00:00 Temperature 98.6 F Pulse Rate 87 88 Respiratory Rate 15 15 Blood Pressure 105/69 Pulse Oximetry 99 100 03/20/18 02:00 03/20/18 03:42 03/20/18 04:00 Temperature 98.2 F Pulse Rate 79 91 H Respiratory Rate 19 15 Blood Pressure 132/86 Pulse Oximetry 100 100 03/20/18 06:00 03/20/18 08:54 Temperature Pulse Rate 92 H Respiratory Rate 15 Blood Pressure Pulse Oximetry 100 Intake & Output 03/19/18 03/20/18 03/20/18 18:59 06:59 18:59 Intake Total 1579 / 1579 1535 / 1535 200 / 200 Output Total 700 / 700 700 / 700 Balance 879 / 879 835 / 835 200 / 200 Weight 61.6 kg Intake: IV 1305 / 1305 1205 / 1205 200 / 200 LR 1000 mL Inj 1,000 ML @ 65 1000 / 1000 1000 / 1000 mls/hr IV.CONT .[id number] [facility] Rx# :[id number] Diprivan 1000 mg/100 ml Inj 1, 200 / 200 100 / 100 100 / 100 000 mg In 100 ml @ 5 MCG/KG/MIN 1.821 mls/hr IV.CONT TITRATE PRN Rx#:[id number] KCl 20 mEq Premix Inj 20 meq In 100 / 100 100 ml @ 50 mls/hr IV.SIG Q2H PRN Rx#:[id number] Keppra Inj 500 MG In NS Inj 100 105 / 105 105 / 105 ML @ 400 mls/hr IV.SIG Q12H [facility] Rx#:[id number] Oral 0 / 0 Tube Feeding 274 / 274 210 / 210 Tube Irrigant 120 / 120 Output: Urine 700 / 700 Stool 0 / 0 Urine Amount (Catheter) 700 / 700 Indwelling Urethral Catheter 700 / 700 Other: Date of Last Bowel Movement 03/18/18 03/19/18 Result Diagrams: 03/20/18 04:48 03/20/18 04:48 Objective Remarks: GENERAL: Under nourished, well-developed -Finnish male with temporal muscle wasting. SKIN: Warm and dry. HEAD: Normocephalic. EYES: Pupils 2 mm and reactive to pinpoint bilaterally. No scleral icterus. No injection or drainage. ENT: No nasal bleeding or discharge. Mucous membranes pink and moist, very poor dentition. NECK: Trachea midline. Orotracheal intubation. CARDIOVASCULAR: Regular rhythm, rate in 80s, sinus on monitor. No murmurs rubs or gallops. No JVD RESPIRATORY: Breathing comfortably with no accessory muscle use. Clear to auscultation. Breath sounds equal bilaterally. Few mobile secretions GASTROINTESTINAL: Abdomen soft, non-tender, nondistended. Bowel sounds present. No guarding MUSCULOSKELETAL: Extremities without clubbing, cyanosis, or edema. No obvious deformities. Warm, well-perfused NEUROLOGICAL: On mechanical ventilation. Left facial droop. RAJANI makes eye contact and tracks. Squeezes with right hand and moves right lower extremity to command.. Flexor response to deep noxious stimuli of left lower extremity. Left upper extremity 1/5 at best. Poor cough effort. Assessment and Plan - Problem List (1) Traumatic brain injury Code(s): S06.9X9A - Unspecified intracranial injury with loss of consciousness of unspecified duration, initial encounter Status: Acute (2) Dysphagia Code(s): R13.10 - Dysphagia, unspecified Status: Acute - Assessment and Plan Plan: Assessment and Plan NEURO: Right frontal intraparenchymal hemorrhage 53.3 cm. Subarachnoid hemorrhage bilat frontal lobes, right parietal lobe, right temporal. Right frontotemporal subdural hematoma 6 mm with 4 mm right to left shift. Fall ?syncope Daily alcohol use Cocaine abuse Monitor neuro status in [facility]. Repeat CT 03/08 with evolution of hemorrhage, vasogenic edema with increased midline shift, 2.2 cm. Continuing mannitol 25 gram IV q6, will continue hyperosmolar therapy and target sodium of 150. Place CVL and increase to 3% @ 40/hr. EEG mild encephalopathy, no seizures. Cardene to maintain systolic blood pressure less than 140, Keppra 500 mg IV every 12 hours CTA brain and neck 03/03/[address] C-spine -negative for acute injury Tylenol as needed for temp >100.4 Dr. Dolan admitted MVI/Thiamine/folic acid supplementation IV Monitor for evidence of alcohol withdrawal. Repeat Head CT 03/15 -> continued impressive mass-effect right frontal lobe with shift RESP: Tobacco abuse Elevated carboxyhemoglobin level consistent with history of smoking Oxygen PRN keep sats>92% Still protecting airway, continue to monitor. Tobacco cessation counseling when he is alert and able to participate. On RA CV: Monitor HR and BP keep MAP>65mmHg Place on Hydralazine 25mg Q8, Norvasc 10 daily. Cardene to maintain SBP <140 as per above. Labetalol prn. GI:. N.p.o. for now until mental status improved. Speech therapy following. Initiate enteral feeds with goal rate 40ml/hr, monitor closely for residuals. FEN/RENAL: Monitor renal function, I/O's, electrolyte replacement protocol. Convert to LR iv fluid. 3% saline has been stopped. ID: Monitor for signs and symptoms of infection. HEME: Monitor CBC ENDO: Euglycemic. Monitor bedside glucose every 6 hours. PROPH: SCDs and teds for DVT prophylaxis. Pharmacologic DVT prophylaxis is contraindicated due to intracerebral hemorrhage. Famotidine for stress ulcer prophylaxis Full code status Overall impression: This gentleman has sporadic acceptable spontaneous breathing trials but his air movement is often poor and tidal volumes are inadequate for successful extubation. Furthermore, he has a weak cough effort and copious secretions. Repeat head CT reveals continued mass-effect from the hematoma. He has brief apneic episodes are not particularly worrisome, likely caused by mild alkalosis. Fails to meet criteria for extubation, will need a tracheostomy. (1) Traumatic brain injury Qualifiers: Encounter type: subsequent encounter
--- NOTE | 2018-03-20 14:03 | P.PNNS ---
Subjective Interval history: The patient appears drowsy this afternoon when seen and has his eyes open. He does not have any sedation infusing. He is still intubated and on CPAP. He followed commands on the right side. He had no response with the left side to noxious stimulation. <Cale Nunez E - Last Filed: 03/20/18 14:06> Physical Exam Vital signs: Vital Signs 03/19/18 16:00 03/19/18 18:00 03/19/18 20:00 Temperature 98.5 F 98.8 F Pulse Rate 99 H 84 Respiratory Rate 15 15 Blood Pressure 118/80 118/76 Pulse Oximetry 100 100 100 03/19/18 20:08 03/19/18 22:00 03/19/18 23:43 Temperature Pulse Rate 87 Respiratory Rate 15 15 Blood Pressure Pulse Oximetry 100 99 03/20/18 00:00 03/20/18 02:00 03/20/18 03:42 Temperature 98.6 F Pulse Rate 88 79 Respiratory Rate 15 19 Blood Pressure 105/69 Pulse Oximetry 100 100 03/20/18 04:00 03/20/18 06:00 03/20/18 08:54 Temperature 98.2 F Pulse Rate 91 H 92 H Respiratory Rate 15 15 Blood Pressure 132/86 Pulse Oximetry 100 100 03/20/18 11:37 Temperature Pulse Rate Respiratory Rate 9 L Blood Pressure Pulse Oximetry 100 Intake & Output 03/19/18 03/20/18 03/20/18 18:59 06:59 18:59 Intake Total 1579 / 1579 1535 / 1535 200 / 200 Output Total 700 / 700 700 / 700 Balance 879 / 879 835 / 835 200 / 200 Weight 61.6 kg Intake: IV 1305 / 1305 1205 / 1205 200 / 200 LR 1000 mL Inj 1,000 ML @ 65 1000 / 1000 1000 / 1000 mls/hr IV.CONT .[id number] [facility] Rx# :[id number] Diprivan 1000 mg/100 ml Inj 1, 200 / 200 100 / 100 100 / 100 000 mg In 100 ml @ 5 MCG/KG/MIN 1.821 mls/hr IV.CONT TITRATE PRN Rx#:[id number] KCl 20 mEq Premix Inj 20 meq In 100 / 100 100 ml @ 50 mls/hr IV.SIG Q2H PRN Rx#:[id number] Keppra Inj 500 MG In NS Inj 100 105 / 105 105 / 105 ML @ 400 mls/hr IV.SIG Q12H [facility] Rx#:[id number] Oral 0 / 0 Tube Feeding 274 / 274 210 / 210 Tube Irrigant 120 / 120 Output: Urine 700 / 700 Stool 0 / 0 Urine Amount (Catheter) 700 / 700 Indwelling Urethral Catheter 700 / 700 Other: Date of Last Bowel Movement 03/18/18 03/19/18 Narrative: GENERAL: The patient is drowsy but has his eyes open. He has no sedation infusing. He is intubated and on CPAP/PSV settings. He is not in any apparent distress. HEENT: Normocephalic, atraumatic. Pupils 2mm reactive bilaterally. Orally intubated. OGT. MUSCULOSKELETAL: Moved right side to command but no response to left. No evident clubbing or deformity. NEUROLOGICAL: Drowsy. Spontaneous eye opening. Pupils 2 mm reactive bilaterally. Nonverbal, intubated. Followed simple commands on right. No response on left to local noxious stimulation. - Urinary Catheter Management Indwelling Temp Sensing Catheter Cath placed during this visit: yes, but has since been removed by the nurse Reason for continuing: Decision to DC catheter Insertion date: 03/12/18 Insertion time: 05:30 Removal date: 03/14/18 Removal time: 17:00 Indwelling Urethral Catheter Cath placed during this visit: yes, but has since been removed by the nurse Reason for continuing: Decision to DC catheter Removal date: 03/14/18 Removal time: 17:00 <Cale Nunez E - Last Filed: 03/20/18 14:06> Vital signs: Vital Signs 03/22/18 00:00 03/22/18 00:09 03/22/18 02:00 Temperature 99.3 F Pulse Rate 94 H 92 H Respiratory Rate 18 17 Blood Pressure 135/87 Pulse Oximetry 100 100 03/22/18 04:00 03/22/18 04:21 03/22/18 06:00 Temperature 98.3 F Pulse Rate 86 88 Respiratory Rate 15 15 Blood Pressure 114/74 Pulse Oximetry 100 100 03/22/18 08:00 03/22/18 08:15 03/22/18 10:00 Temperature 99.0 F Pulse Rate 77 85 Respiratory Rate 14 9 L Blood Pressure 127/77 Pulse Oximetry 100 100 03/22/18 11:57 03/22/18 12:00 03/22/18 14:00 Temperature 98.8 F Pulse Rate 97 H 84 Respiratory Rate 15 15 Blood Pressure 129/88 Pulse Oximetry 100 100 03/22/18 16:00 03/22/18 16:45 03/22/18 17:18 Temperature 99.4 F Pulse Rate 89 Respiratory Rate 15 15 Blood Pressure 127/76 Pulse Oximetry 100 100 100 03/22/18 18:00 03/22/18 19:00 03/22/18 20:28 Temperature Pulse Rate 92 H 90 Respiratory Rate 15 15 15 Blood Pressure 135/85 151/99 H Pulse Oximetry 99 Intake & Output 03/22/18 03/22/18 03/23/18 06:59 18:59 06:59 Intake Total 342 / 342 1143 / 1143 100 / 100 Output Total 1875 / 1875 1200 / 1200 Balance -1533 / -1533 -57 / -57 100 / 100 Weight 62 kg Intake: IV 305 / 305 100 / 100 Diprivan 1000 mg/100 ml Inj 1, 100 / 100 000 mg In 100 ml @ 5 MCG/KG/MIN 1.821 mls/hr IV.CONT TITRATE PRN Rx#:[id number] Sodium Chloride 23.4% Inj 188 200 / 200 MEQ In NS Inj 1,000 ML @ 42 mls /hr IV.CONT .Q24H [facility] Rx#: [id number] Keppra Inj 500 MG In NS Inj 100 105 / 105 ML @ 400 mls/hr IV.SIG Q12H [facility] Rx#:[id number] Tube Feeding 242 / 242 38 / 38 Tube Irrigant 100 / 100 Anesthesia Amount 800 / 800 Output: Urine 1875 / 1875 1000 / 1000 Gastric Drainage 200 / 200 Right Nare Nasogastric Tube 200 / 200 Other: Date of Last Bowel Movement 03/21/18 03/21/18 # Bowel Movements 0 - Urinary Catheter Management Indwelling Temp Sensing Catheter Cath placed during this visit: no Indwelling Urethral Catheter Cath placed during this visit: no <Harsha Quiles - Last Filed: 03/22/18 22:19> Assessment and Plan - Plan Impression: 1. Right ICH Patient awake but drowsy. Followed commands w/right side extremities but no response w/left side. Past 24 hrs: Afebrile. Reviewed labs for today. Sodium 148. Potassium 3.1. eGFR >89. Resolution of leukocytosis & drop in haemoglobin level since . Plan: Cont critical care management Continue neuro checks, non surgical treatment Wean mchanical ventilation. Continue aggressive pulmonary toilette, nasotracheal suction, and breathing treatments with nebulizers. Protonix for stress ulcer prophylaxis [place] hose and SCD's for DVT prophylaxis <Cale Nunez - Last Filed: 03/20/18 14:06> - Attending Attestation The exam, history, and the medical decision-making described in the above note were completed with the assistance of the mid-level provider. I reviewed and agree with the findings presented. I attest that I had a [id number] encounter with the patient on the same day, and personally performed and documented my assessment and findings in the medical record. On examination 03/21/2018 patient remains awake, relatively alert. Follows commands on right side. Persistent left hemiparesis. No overall change in neurologic exam over past 2-3 days. Follow-up CT scan this week. <Harsha Quiles - Last Filed: 03/22/18 22:19>
[2018-03-21] MEDS: Artificial Tears Opth Drops 15 ML Bottle EACH EYE SCH ×3 (00:24→18:19)
[2018-03-21] MEDS: Oral Hygiene Kit OROPHARYNG SCH ×4 (00:24→17:12)
[2018-03-21] MEDS: Propofol 1000 mg/100 ml Inj 1,000 MG/100 ML BOTTLE IV.CONT PRN (03:10)
[2018-03-21] MEDS: hydrALAZINE 25 MG Tablet PO SCH ×3 (04:21→17:12)
[2018-03-21 05:09] LABS: Baso % (Auto) 0.2 % (0.0-2.0); Eos # (Auto) 0.1 th/mm3 (0.0-0.4); Eos % (Auto) 1.1 % (0.0-4.0); Hematocrit 31.2 % (39.0-51.0); Hemoglobin 10.4 gm/dL (13.0-17.0); Lymph # (Auto) 0.7 th/mm3 (1.0-4.8); Mean Corpuscular HGB Conc 33.5 % (32.0-36.0); Mean Corpuscular Hemoglobin 31.7 pg (27.0-34.0); Mean Corpuscular Volume 94.7 fL (80.0-100.0); Mean Platelet Volume 7.9 fL (7.0-11.0); Mono # (Auto) 0.4 th/mm3 (0.0-0.9); Mono % (Auto) 5.2 % (0.0-8.0); Neut # (Auto) 6.1 th/mm3 (1.8-7.7); Neut % (Auto) 84.5 % (16.0-70.0); Platelet Count 312 th/mm3 (150-450); Red Blood Count 3.29 mil/mm3 (4.50-5.90); Red Cell Distribution Width 12.8 % (11.6-17.2); White Blood Count 7.2 th/mm3 (4.0-11.0)
[2018-03-21 05:29] LABS: Anion Gap 8 meq/L (5-15); Blood Urea Nitrogen 11 mg/dL (7-18); Calcium 8.3 mg/dL (8.5-10.1); Chloride 112 meq/L (98-107); Glomerular Filtration Rate Greater Than 89 mL/min (>89); Glucose,Random 107 mg/dL (74-106); Potassium 3.4 meq/L (3.5-5.1); Sodium 147 meq/L (136-145)
[2018-03-21] MEDS: Folic Acid 1 MG Tablet PO SCH (08:24)
[2018-03-21] MEDS: amLODIPine 10 MG Tablet NG/OG SCH (08:24)
[2018-03-21] MEDS: Docusate Sodium Liq 100 MG/10 ML UDC NG/OG SCH ×2 (08:25→22:24)
[2018-03-21] MEDS: Chlorhexidine 0.12% Oral Kit 15 ML UDC OROPHARYNG SCH ×2 (08:25→20:15)
[2018-03-21] MEDS: Sennosides Liq 8.8 MG/5 ML UDC NG/OG SCH ×2 (08:26→22:24)
[2018-03-21] MEDS: Polyethylene Glycol 3350 17 GM Packet NG/OG SCH ×2 (08:26→20:37)
[2018-03-21] MEDS ORDERED: Potassium Chlor 20 mEq Premix 20 MEQ/100 ML PIGGYBACK IV.SIG ONE (08:30)
--- NOTE | 2018-03-21 08:48 | P.PNNS ---
Subjective Interval history: 03/21: remains intubated, awake, follows simple commands on right. <Jodi Hyman - Last Filed: 03/22/18 12:26> Physical Exam Vital signs: Vital Signs 03/20/18 08:54 03/20/18 11:37 03/20/18 12:00 Temperature 97.8 F Pulse Rate 86 Respiratory Rate 15 9 L 15 Blood Pressure 100/70 Pulse Oximetry 100 100 100 03/20/18 16:00 03/20/18 20:00 03/20/18 20:11 Temperature 98.5 F 99.1 F Pulse Rate 89 94 H Respiratory Rate 15 15 15 Blood Pressure 104/69 104/66 Pulse Oximetry 100 03/20/18 22:00 03/21/18 00:00 03/21/18 00:13 Temperature 98.1 F Pulse Rate 90 85 Respiratory Rate 15 15 Blood Pressure 107/73 Pulse Oximetry 100 03/21/18 02:00 03/21/18 03:43 03/21/18 04:00 Temperature 98.5 F Pulse Rate 89 76 Respiratory Rate 15 15 Blood Pressure 107/72 Pulse Oximetry 100 100 03/21/18 06:00 03/21/18 08:17 Temperature Pulse Rate 76 Respiratory Rate 20 Blood Pressure Pulse Oximetry 100 Intake & Output 03/20/18 03/21/18 03/21/18 18:59 06:59 18:59 Intake Total 1479 / 1479 930 / 930 Output Total 1000 / 1000 900 / 900 Balance 479 / 479 30 / 30 Weight 63.2 kg Intake: IV 1200 / 1200 510 / 510 LR 1000 mL Inj 1,000 ML @ 65 1000 / 1000 mls/hr IV.CONT .[id number] [facility] Rx# :[id number] Diprivan 1000 mg/100 ml Inj 1, 100 / 100 200 / 200 000 mg In 100 ml @ 5 MCG/KG/MIN 1.821 mls/hr IV.CONT TITRATE PRN Rx#:[id number] KCl 20 mEq Premix Inj 20 meq In 100 / 100 100 / 100 100 ml @ 50 mls/hr IV.SIG Q2H PRN Rx#:[id number] Keppra Inj 500 MG In NS Inj 100 210 / 210 ML @ 400 mls/hr IV.SIG Q12H [facility] Rx#:[id number] Tube Feeding 279 / 279 220 / 220 Tube Irrigant 200 / 200 Output: Urine 900 / 900 Stool 0 / 0 Urine Amount (Catheter) 1000 / 1000 Indwelling Urethral Catheter 1000 / 1000 Other: Date of Last Bowel Movement 03/20/18 Narrative: GENERAL: appears comfortable HEENT: Normocephalic, atraumatic. Pupils 2mm reactive bilaterally. Orally intubated. OGT. MUSCULOSKELETAL: Moved right side to command but no response to left. No evident clubbing or deformity. NEUROLOGICAL: Awake, follows simple commands, gave right thumbs up pupils equal - Urinary Catheter Management Indwelling Temp Sensing Catheter Cath placed during this visit: yes, but has since been removed by the nurse Reason for continuing: Decision to DC catheter Insertion date: 03/12/18 Insertion time: 05:30 Removal date: 03/14/18 Removal time: 17:00 Indwelling Urethral Catheter Cath placed during this visit: yes, but has since been removed by the nurse Reason for continuing: Decision to DC catheter Removal date: 03/14/18 Removal time: 17:00 <Jodi Hyman - Last Filed: 03/22/18 12:26> Vital signs: Vital Signs 03/21/18 18:00 03/21/18 18:07 03/21/18 20:00 Temperature 99.3 F Pulse Rate 100 H 88 Respiratory Rate 15 Blood Pressure 123/83 Pulse Oximetry 100 100 03/21/18 20:49 03/21/18 22:00 03/22/18 00:00 Temperature 99.3 F Pulse Rate 94 H 94 H Respiratory Rate 17 18 Blood Pressure 135/87 Pulse Oximetry 100 100 03/22/18 00:09 03/22/18 02:00 03/22/18 04:00 Temperature 98.3 F Pulse Rate 92 H 86 Respiratory Rate 17 15 Blood Pressure 114/74 Pulse Oximetry 100 100 03/22/18 04:21 03/22/18 06:00 03/22/18 08:15 Temperature Pulse Rate 88 Respiratory Rate 15 9 L Blood Pressure Pulse Oximetry 100 100 03/22/18 11:57 Temperature Pulse Rate Respiratory Rate 15 Blood Pressure Pulse Oximetry 100 Intake & Output 03/21/18 03/22/18 03/22/18 18:59 06:59 18:59 Intake Total 1270 / 1270 342 / 342 305 / 305 Output Total 2201 / 2201 1875 / 1875 Balance -931 / -931 -1533 / -1533 305 / 305 Weight 62 kg Intake: IV 1105 / 1105 305 / 305 LR 1000 mL Inj 1,000 ML @ 65 800 / 800 mls/hr IV.CONT .[id number] [facility] Rx# :[id number] Sodium Chloride 23.4% Inj 188 200 / 200 MEQ In NS Inj 1,000 ML @ 42 mls /hr IV.CONT .Q24H [facility] Rx#: [id number] KCl 20 mEq Premix Inj 20 meq In 200 / 200 100 ml @ 50 mls/hr IV.SIG NOW ONE Rx#:[id number] Keppra Inj 500 MG In NS Inj 100 105 / 105 105 / 105 ML @ 400 mls/hr IV.SIG Q12H [facility] Rx#:[id number] Oral 0 / 0 Tube Feeding 65 / 65 242 / 242 Tube Irrigant 100 / 100 100 / 100 Output: Urine 2200 / 2200 1875 / 1875 Stool / Other: Date of Last Bowel Movement 03/21/18 03/21/18 Narrative: The patient is intubated and sedated. . Cranial Nerves: Pupils equal, 3 mm round, reactive to light. Eyes appear conjugated. There was no nystagmus, no papilledema. Face musculature appeared symmetrical at rest. Face sensation, olfaction, and hearing cannot be adequately assessed due to his neurological condition. The patient has a corneal reflex. He has a gag reflex. The sternocleidomastoid and trapezius were symmetrical. Cervical Spine: His neck is soft, supple, without nuchal rigidity. Motor: Moved right side to command but no response to left. No evident clubbing or deformity. Reflexes: Deep tendon reflexes are 2+ and symmetrical in the biceps, triceps, and brachioradialis, bilaterally, in the upper extremities. In the lower extremities, the patellar and ankles are 2+, bilaterally. There is a bilateral plantar flexion response. There is no clonus or other abnormal reflexes noted. Sensory: On examination there there is response to painful stimuli, localizing with right upper and lower extremities. Cerebellar: Examination cannot be adequately assessed due to the patient's neurological condition. Lungs: clear Heart. Regular rhythm and rate Skin: warm and dry - Urinary Catheter Management Indwelling Temp Sensing Catheter Cath placed during this visit: no Indwelling Urethral Catheter Cath placed during this visit: no <Luis Chacko Last Filed: 03/22/18 16:35> Assessment and Plan - Plan Impression: 1. Right ICH c Head CT 03/15/18 00:00 CONCLUSION: 1. Evolving right frontal lobe parenchymal hemorrhage with cerebral edema and worsening leftward midline shift. 2. Minimal left frontal and parietal subarachnoid blood without associated mass effect. Plan: follow up CT Brain today, Cont critical care management Continue neuro checks Protonix for stress ulcer prophylaxis [place] hose and SCD's for DVT prophylaxis <Jodi Hyman - Last Filed: 03/22/18 12:26> - Plan neuro checks in a serial fashion.Follow up CT Brain today. he may need a surgical decompression Pulmonary. aggressive pulmonary toilette, nasotracheal suction, and breathing treatments with nebulizers. Daily PT and OT Renal. Continue to monitor closely urine output, BUN and creatinine Endocrine. Continue to Monitor serial Acu checks and SSI as needed in detail ID continue to monitor for signs of infection Continue Protonix for stress ulcer prophylaxis Continue [place] hose and SCD's for DVT prophylaxis Further recommendations will be provided depending on the patient's clinical evaluation and follow up studies. The exam, history, and the medical decision-making described in the above note were completed with the assistance of the mid-level provider. I reviewed and agree with the findings presented. I attest that I had a [id number] encounter with the patient on the same day, and personally performed and documented my assessment and findings in the medical record. <Luis Chacko - Last Filed: 03/22/18 16:35>
--- NOTE | 2018-03-21 09:13 | XR ---
EXAM DATE: 03/21/2018 8:07 AM EDT AGE/SEX: 62 years / Male INDICATIONS: Short of breath. CLINICAL DATA: This is the patient's subsequent encounter. Patient reports that signs and symptoms h ave been present for 4 - 6 days and indicates a pain score of Nonresponsive. MEDICAL/SURGICAL HISTORY: . Asthma. Chronic obstructive pulmonary disease. None. [place] [facility] [place] [facility] [place]. . FINDINGS: Portable AP view of the chest demonstrates a normal-sized cardiac silhouette. Endotracheal tube and n asogastric tube remain present. The left IJ central line has been removed. Lungs are underinflated an d patient is rotated. There is mild atelectasis at the lung bases. No pleural effusion, definite airs pace consolidation, or pneumothorax is identified. The patient's chin obscures the right lung apex. CONCLUSION: Under inflation with atelectasis at the lung bases. Otherwise, no acute finding is identified. Electronically signed by: Saeid Mena MD 03/21/2018 9:12 AM EDT
--- NOTE | 2018-03-21 09:21 | P.PNCC ---
Subjective Subjective Remarks/Hospital Course: 03/03: 62-year-old -Irish male with past medical history of COPD/asthma , tobacco abuse, daily alcohol use who presented to [facility] emergency department after a fall. Patient told EM provider that he was mopping the floor with some chemicals when he felt lightheaded and fell hitting the back of his head. Patient complained of vertigo. CT brain showed right frontal intraparenchymal hemorrhage 5 x 3.3 cm with subarachnoid hemorrhage bilateral frontal lobes, right parietal and right temporal lobes. There is a component of acute subdural hematoma along the right frontoparietal lobe that is 6 mm. There is 4 mm of subfalcine herniation to the left. He is not on anticoagulation but takes aspirin daily. He complained of headache and has received Dilaudid 0.2 mg IV in the ED. BP went up to 183/99 and he was started on Cardene and BP now 144/74 on 5mg/hr. He denied nausea, vomiting, cough, fevers or chills. CTA brain/neck demonstrate no vascular abnormality. He has been admitted by Dr. Dolan and [facility] has been consulted to assist in medical management of ICH as well as workup for syncope. He said that his son had brought him to the emergency department for evaluation however upon evaluation in the ED the son was not present and there was no phone number available for him. 03/04: Resting in bed. Drowsy, arousable. Not following commands. 03/05: Resting in bed. Drowsy, easily arousable. Squeezes with both hands on command. 03/06: More awake, following commands. Dysarthric. Left-sided weakness persists. 03/07 Patient is awake on room air oxygen when seen. Follows commands. 03/08 Reportedly was cooperative and conversant with PT yesterday, oriented x3. Today will follow commands but is lethargic, no comprehensible words. No witnessed seizure. Subjective: 03/09 CT brain yesterday with evolving R frontal lobe hematoma, vasogenic edema with 2.2 cm right to left midline shift. EEG mild encephalopathy, no seizure. He continues to protect his airway, follows commands on the right. 03/09 CT brain yesterday with evolving R frontal lobe hematoma, vasogenic edema with 2.2 cm right to left midline shift. EEG mild encephalopathy, no seizure. He continues to protect his airway, follows commands on the right. 03/10: Awake and alert. Follows commands on the right. Protecting airway currently. On 3% saline. 03/11:Drowsy, easily arousable at the time of my evaluation this morning, moves right upper and lower extremity. speech unclear (mumbles). 03/12: Intubated yesterday secondary to altered mental status and copious thick secretions. Tube feeds of been resumed. Bowel regimen resume. SUBJECTIVE: 03/13: Afebrile. Lessening sedation. Off will follow commands right upper extremity. Withdraws bilateral x-rays. Flaccid left upper extremity. Tolerating tube feeds. Disimpacted yesterday. Not sufficiently abdomen still distended will check CT abdomen/pelvis with oral contrast today 03/14: Had small BM, abdomen not distended. Will hold pain meds to encourage bowel activity. 03/15: Hold extubation due to hematoma mass-effect and episodic apnea spells. He does tolerate CPAP trials otherwise. 03/16: He does reasonably well on spontaneous breathing trials with the exception of periodic brief episodes of apnea. Head CT yesterday reveals continued mass-effect from the right frontal lobe hematoma. Serum osmolality has been greater than 320 and it would appear that we have maximized efforts to reduce cerebral edema. We will attempt extubation when neurosurgical service feels it is appropriate. 03/17: Osmolality is acceptable. Tolerate CPAP trials but major concern is whether he can protect his airway or not following extubation. Will discuss with neurosurgery the appropriateness of trial extubation versus proceeding directly to tracheostomy. 03/18: Serum osmolality remains well concentrated. We will attempt trial extubation today. 03/19: On spontaneous breathing trials his tidal volumes are only about 200 cc and he does not have the strength to cough. In the context of his copious secretions and minimal respiratory effort he will be a high risk for aspiration and pneumonia. We have made numerous attempts to contact suppose it family members without success. We continue to try to update family. He will need a tracheostomy. 03/20: Spontaneous breathing trials continued to be sporadically successful. It is doubtful he will protect his airway. We are looking for family to consent for a tracheostomy. 03/21: Wakes up easily follows commands on the right side, still appears lethargic and weak. Low tidal volumes on spontaneous breathing trials. Objective Vital Signs / I&O: Vital Signs 03/20/18 11:37 03/20/18 12:00 03/20/18 16:00 Temperature 97.8 F 98.5 F Pulse Rate 86 89 Respiratory Rate 9 L 15 15 Blood Pressure 100/70 104/69 Pulse Oximetry 100 100 03/20/18 20:00 03/20/18 20:11 03/20/18 22:00 Temperature 99.1 F Pulse Rate 94 H 90 Respiratory Rate 15 15 Blood Pressure 104/66 Pulse Oximetry 100 03/21/18 00:00 03/21/18 00:13 03/21/18 02:00 Temperature 98.1 F Pulse Rate 85 89 Respiratory Rate 15 15 Blood Pressure 107/73 Pulse Oximetry 100 03/21/18 03:43 03/21/18 04:00 03/21/18 06:00 Temperature 98.5 F Pulse Rate 76 76 Respiratory Rate 15 15 Blood Pressure 107/72 Pulse Oximetry 100 100 03/21/18 08:17 Temperature Pulse Rate Respiratory Rate 20 Blood Pressure Pulse Oximetry 100 Intake & Output 03/20/18 03/21/18 03/21/18 18:59 06:59 18:59 Intake Total 1479 / 1479 930 / 930 Output Total 1000 / 1000 900 / 900 Balance 479 / 479 30 / 30 Weight 63.2 kg Intake: IV 1200 / 1200 510 / 510 LR 1000 mL Inj 1,000 ML @ 65 1000 / 1000 mls/hr IV.CONT .[id number] [facility] Rx# :[id number] Diprivan 1000 mg/100 ml Inj 1, 100 / 100 200 / 200 000 mg In 100 ml @ 5 MCG/KG/MIN 1.821 mls/hr IV.CONT TITRATE PRN Rx#:[id number] KCl 20 mEq Premix Inj 20 meq In 100 / 100 100 / 100 100 ml @ 50 mls/hr IV.SIG Q2H PRN Rx#:[id number] Keppra Inj 500 MG In NS Inj 100 210 / 210 ML @ 400 mls/hr IV.SIG Q12H [facility] Rx#:[id number] Tube Feeding 279 / 279 220 / 220 Tube Irrigant 200 / 200 Output: Urine 900 / 900 Stool 0 / 0 Urine Amount (Catheter) 1000 / 1000 Indwelling Urethral Catheter 1000 / 1000 Other: Date of Last Bowel Movement 03/20/18 Result Diagrams: 03/21/18 04:21 03/21/18 04:21 Objective Remarks: GENERAL: Under nourished, well-developed -Irish male with temporal muscle wasting. SKIN: Warm and dry. HEAD: Normocephalic. EYES: Pupils 2 mm and reactive to pinpoint bilaterally. No scleral icterus. No injection or drainage. ENT: No nasal bleeding or discharge. Mucous membranes pink and moist, very poor dentition. NECK: Trachea midline. Orotracheal intubated CARDIOVASCULAR: Regular rhythm, rate in 80s, sinus on monitor. No murmurs rubs or gallops. No JVD RESPIRATORY: Breathing comfortably with no accessory muscle use. Clear to auscultation. Breath sounds equal bilaterally. White ET tube secretions GASTROINTESTINAL: Abdomen soft, non-tender, nondistended. Bowel sounds present. No guarding MUSCULOSKELETAL: Extremities without clubbing, cyanosis, or edema. No obvious deformities. Warm, well-perfused NEUROLOGICAL: On mechanical ventilation. Left facial droop. Makes eye contact and tracks. Squeezes with right hand and moves right lower extremity to command. Remains lethargic and weak. Flexor response to deep noxious stimuli of left lower extremity. Assessment and Plan - Problem List (1) Traumatic brain injury Code(s): S06.9X9A - Unspecified intracranial injury with loss of consciousness of unspecified duration, initial encounter Status: Acute (2) Dysphagia Code(s): R13.10 - Dysphagia, unspecified Status: Acute - Assessment and Plan Plan: Assessment and Plan NEURO: Right frontal intraparenchymal hemorrhage 53.3 cm. Subarachnoid hemorrhage bilat frontal lobes, right parietal lobe, right temporal. Right frontotemporal subdural hematoma 6 mm with 4 mm right to left shift. s/p Fall ?syncope Daily alcohol use Cocaine abuse Repeat CT 03/08 with evolution of hemorrhage, vasogenic edema with increased midline shift, 2.[address] 03/15 Evolving right frontal lobe parenchymal hemorrhage with cerebral edema and leftward midline shift 1.6. Minimal left frontal and parietal subarachnoid blood without associated mass effect. Continuing mannitol 25 gram IV q6, will continue hyperosmolar therapy and target sodium of 150. Na 147 today EEG mild encephalopathy, no seizures. Cardene to maintain systolic blood pressure less than 140, Keppra 500 mg IV every 12 hours CTA brain and neck 03/03/[address] C-spine -negative for acute injury Tylenol as needed for temp >100.4 Dr. Dolan is the neurosurgeon following MVI/Thiamine/folic acid supplementation IV Monitor for evidence of alcohol withdrawal. Repeat Head CT 03/15 -> continued impressive mass-effect right frontal lobe with shift Follow-up CT scan today per neurosurgery RESP: Tobacco abuse Elevated carboxyhemoglobin level consistent with history of smoking PRVC/AC with daily cpap Remains intubated daily CPAP trial but low tidal volumes prevent extubation Unclear about airway protection if extubated may need tracheostomy CV: Monitor HR and BP keep MAP>65mmHg Hydralazine 25mg Q8, Norvasc 10 daily. Cardene to maintain SBP <140 as per above. Labetalol prn. NS at 84 ml per hour to keep NA about 150 GI: Enteral feeds with goal rate 40ml/hr, monitor closely for residuals. FEN/RENAL: Monitor renal function, I/O's, electrolyte replacement protocol. ID: Monitor for signs and symptoms of infection. HEME: Monitor CBC ENDO: Euglycemic. Monitor bedside glucose every 6 hours. PROPH: SCDs and teds for DVT prophylaxis. Pharmacologic DVT prophylaxis is contraindicated due to intracerebral hemorrhage. Famotidine for stress ulcer prophylaxis Full code status Overall impression: This gentleman has sporadic acceptable spontaneous breathing trials but his air movement is often poor and tidal volumes are inadequate for successful extubation. He has copious secretions. Repeat head CT reveals continued mass-effect from the hematoma. Fails to meet criteria for extubation, will most likely need a tracheostomy. (1) Traumatic brain injury Qualifiers: Encounter type: subsequent encounter
[2018-03-21] MEDS ORDERED: Sod Chloride 0.9% Inj 1,000 ML IV.CONT SCH (09:33)
--- NOTE | 2018-03-21 18:34 | CT ---
EXAM DATE: 03/21/2018 6:01 PM EDT AGE/SEX: 62 years / Male INDICATIONS: Follow up intracerebral hemorrhage. CLINICAL DATA: This is the patient's subsequent encounter. Patient reports that signs and symptoms h ave been present for 1 day and indicates a pain score of 0/10. MEDICAL/SURGICAL HISTORY: None. None. RADIATION DOSE: 36.28 CTDI (mGy) [place] [facility] [place]. [facility] [place]. . TECHNIQUE: CT of the head without contrast. Using automated exposure control and adjustment of the mA and/or kV according to patient size, radiation dose was kept as low as reasonably achievable to ob tain optimal diagnostic quality images. DICOM format image data is available electronically for revi ew and comparison. FINDINGS: The degree of edema in the right frontal region has increased when compared to prior examination, no w with midline shift measuring 2.1 cm (previously measured 1.6 cm. There is effacement of the third v entricle and the frontal horn. There is also mild narrowing of the left frontal horn. The density of the large frontal hematoma has decreased with some persistent hyperdensity in the supraorbital region . Cerebral edema extends to the parietal region, similar to prior. No new hemorrhage seen. Persistent mass effect on the T1 cephalocaudal and mesencephalon with loss of delineation of the martina mesencephalic cisterns. The degree of mass effect is similar to prior. The ambient wing cistern is vi sualized bilaterally. Air-fluid level in the right sphenoid sinus, increased from prior, and opacification of the right eth moids, similar to prior. CONCLUSION: 1. There has been an interval increase in the amount of [id number] midline shift in the frontal r egion, now measuring 2.1 cm. 2. Involving right frontal blood products with further decrease in the density of the right frontal hematoma. Electronically signed by: Marco A Molina MD 03/21/2018 6:32 PM EDT
[2018-03-22 00:57] LABS: Sodium 143 meq/L (136-145)
[2018-03-22] MEDS: hydrALAZINE 25 MG Tablet PO SCH ×5 (01:16→22:32)
[2018-03-22] MEDS: Oral Hygiene Kit OROPHARYNG SCH ×4 (01:19→18:46)
[2018-03-22] MEDS: Artificial Tears Opth Drops 15 ML Bottle EACH EYE SCH ×3 (05:19→22:08)
[2018-03-22 06:02] LABS: Baso % (Auto) 0.3 % (0.0-2.0); Eos # (Auto) 0.1 th/mm3 (0.0-0.4); Eos % (Auto) 0.8 % (0.0-4.0); Hematocrit 31.9 % (39.0-51.0); Hemoglobin 10.7 gm/dL (13.0-17.0); Lymph # (Auto) 0.8 th/mm3 (1.0-4.8); Lymph % (Auto) 11.8 % (9.0-44.0); Mean Corpuscular HGB Conc 33.4 % (32.0-36.0); Mean Corpuscular Hemoglobin 31.4 pg (27.0-34.0); Mean Corpuscular Volume 93.9 fL (80.0-100.0); Mean Platelet Volume 7.5 fL (7.0-11.0); Mono # (Auto) 0.5 th/mm3 (0.0-0.9); Mono % (Auto) 6.6 % (0.0-8.0); Neut # (Auto) 5.6 th/mm3 (1.8-7.7); Neut % (Auto) 80.5 % (16.0-70.0); Platelet Count 329 th/mm3 (150-450); Red Cell Distribution Width 12.9 % (11.6-17.2)
[2018-03-22 06:22] LABS: Anion Gap 8 meq/L (5-15); Blood Urea Nitrogen 10 mg/dL (7-18); Calcium 8.5 mg/dL (8.5-10.1); Carbon Dioxide 26.7 meq/L (21.0-32.0); Chloride 107 meq/L (98-107); Glomerular Filtration Rate Greater Than 89 mL/min (>89); Glucose,Random 112 mg/dL (74-106); Potassium 3.6 meq/L (3.5-5.1); Sodium 142 meq/L (136-145)
--- NOTE | 2018-03-22 07:47 | P.PNCC ---
Subjective Subjective Remarks/Hospital Course: 03/03: 62-year-old -Citizen Of [place] male with past medical history of COPD/asthma , tobacco abuse, daily alcohol use who presented to [facility] emergency department after a fall. Patient told EM provider that he was mopping the floor with some chemicals when he felt lightheaded and fell hitting the back of his head. Patient complained of vertigo. CT brain showed right frontal intraparenchymal hemorrhage 5 x 3.3 cm with subarachnoid hemorrhage bilateral frontal lobes, right parietal and right temporal lobes. There is a component of acute subdural hematoma along the right frontoparietal lobe that is 6 mm. There is 4 mm of subfalcine herniation to the left. He is not on anticoagulation but takes aspirin daily. He complained of headache and has received Dilaudid 0.2 mg IV in the ED. BP went up to 183/99 and he was started on Cardene and BP now 144/74 on 5mg/hr. He denied nausea, vomiting, cough, fevers or chills. CTA brain/neck demonstrate no vascular abnormality. He has been admitted by Dr. Dolan and [facility] has been consulted to assist in medical management of ICH as well as workup for syncope. He said that his son had brought him to the emergency department for evaluation however upon evaluation in the ED the son was not present and there was no phone number available for him. 03/04: Resting in bed. Drowsy, arousable. Not following commands. 03/05: Resting in bed. Drowsy, easily arousable. Squeezes with both hands on command. 03/06: More awake, following commands. Dysarthric. Left-sided weakness persists. 03/07 Patient is awake on room air oxygen when seen. Follows commands. 03/08 Reportedly was cooperative and conversant with PT yesterday, oriented x3. Today will follow commands but is lethargic, no comprehensible words. No witnessed seizure. Subjective: 03/09 CT brain yesterday with evolving R frontal lobe hematoma, vasogenic edema with 2.2 cm right to left midline shift. EEG mild encephalopathy, no seizure. He continues to protect his airway, follows commands on the right. 03/09 CT brain yesterday with evolving R frontal lobe hematoma, vasogenic edema with 2.2 cm right to left midline shift. EEG mild encephalopathy, no seizure. He continues to protect his airway, follows commands on the right. 03/10: Awake and alert. Follows commands on the right. Protecting airway currently. On 3% saline. 03/11:Drowsy, easily arousable at the time of my evaluation this morning, moves right upper and lower extremity. speech unclear (mumbles). 03/12: Intubated yesterday secondary to altered mental status and copious thick secretions. Tube feeds of been resumed. Bowel regimen resume. SUBJECTIVE: 03/13: Afebrile. Lessening sedation. Off will follow commands right upper extremity. Withdraws bilateral x-rays. Flaccid left upper extremity. Tolerating tube feeds. Disimpacted yesterday. Not sufficiently abdomen still distended will check CT abdomen/pelvis with oral contrast today 03/14: Had small BM, abdomen not distended. Will hold pain meds to encourage bowel activity. 03/15: Hold extubation due to hematoma mass-effect and episodic apnea spells. He does tolerate CPAP trials otherwise. 03/16: He does reasonably well on spontaneous breathing trials with the exception of periodic brief episodes of apnea. Head CT yesterday reveals continued mass-effect from the right frontal lobe hematoma. Serum osmolality has been greater than 320 and it would appear that we have maximized efforts to reduce cerebral edema. We will attempt extubation when neurosurgical service feels it is appropriate. 03/17: Osmolality is acceptable. Tolerate CPAP trials but major concern is whether he can protect his airway or not following extubation. Will discuss with neurosurgery the appropriateness of trial extubation versus proceeding directly to tracheostomy. 03/18: Serum osmolality remains well concentrated. We will attempt trial extubation today. 03/19: On spontaneous breathing trials his tidal volumes are only about 200 cc and he does not have the strength to cough. In the context of his copious secretions and minimal respiratory effort he will be a high risk for aspiration and pneumonia. We have made numerous attempts to contact suppose it family members without success. We continue to try to update family. He will need a tracheostomy. 03/20: Spontaneous breathing trials continued to be sporadically successful. It is doubtful he will protect his airway. We are looking for family to consent for a tracheostomy. 03/21: Wakes up easily follows commands on the right side, still appears lethargic and weak. Low tidal volumes on spontaneous breathing trials. 03/22: Patient remains intubated, copious amount of oral and ET tube secretions. He follows commands on right side but remains lethargic. There is interval worsening of [id number] midline shift in the frontal region, now measuring 2.1 cm. Restart hyperosmolar therapy with 2% saline at 42 mL/h and frequent neuro check and sodium check. Continue mannitol will discuss with Dr. Chacko Objective Vital Signs / I&O: Vital Signs 03/21/18 08:00 03/21/18 08:17 03/21/18 10:00 Temperature 98.4 F Pulse Rate 88 90 Respiratory Rate 20 20 Blood Pressure 136/86 Pulse Oximetry 100 100 03/21/18 11:26 03/21/18 12:00 03/21/18 14:00 Temperature 98.6 F Pulse Rate 81 92 H Respiratory Rate 26 H 20 Blood Pressure 124/78 Pulse Oximetry 100 100 03/21/18 16:00 03/21/18 16:11 03/21/18 18:00 Temperature 98.4 F Pulse Rate 88 100 H Respiratory Rate 11 L Blood Pressure 119/79 Pulse Oximetry 100 100 03/21/18 18:07 03/21/18 20:00 03/21/18 20:49 Temperature 99.3 F Pulse Rate 88 Respiratory Rate 15 17 Blood Pressure 123/83 Pulse Oximetry 100 100 100 03/21/18 22:00 03/22/18 00:00 03/22/18 00:09 Temperature 99.3 F Pulse Rate 94 H 94 H Respiratory Rate 18 17 Blood Pressure 135/87 Pulse Oximetry 100 100 03/22/18 02:00 03/22/18 04:00 03/22/18 04:21 Temperature 98.3 F Pulse Rate 92 H 86 Respiratory Rate 15 15 Blood Pressure 114/74 Pulse Oximetry 100 100 03/22/18 06:00 Temperature Pulse Rate 88 Respiratory Rate Blood Pressure Pulse Oximetry Intake & Output 03/21/18 03/22/18 03/22/18 18:59 06:59 18:59 Intake Total 1270 / 1270 342 / 342 Output Total 2201 / 2201 1875 / 1875 Balance -931 / -931 -1533 / -1533 Weight 62 kg Intake: IV 1105 / 1105 LR 1000 mL Inj 1,000 ML @ 65 800 / 800 mls/hr IV.CONT .[id number] [facility] Rx# :[id number] KCl 20 mEq Premix Inj 20 meq In 200 / 200 100 ml @ 50 mls/hr IV.SIG NOW ONE Rx#:[id number] Keppra Inj 500 MG In NS Inj 100 105 / 105 ML @ 400 mls/hr IV.SIG Q12H [facility] Rx#:[id number] Oral 0 / 0 Tube Feeding 65 / 65 242 / 242 Tube Irrigant 100 / 100 100 / 100 Output: Urine 2200 / 2200 1875 / 1875 Stool Other: Date of Last Bowel Movement 03/21/18 03/21/18 Result Diagrams: 03/22/18 05:21 03/22/18 05:21 Objective Remarks: GENERAL: Under nourished, well-developed -Citizen Of [place] male with temporal muscle wasting. Appears lethargic critical SKIN: Warm and dry. HEAD: Normocephalic. EYES: Pupils 4 mm and reactive bilaterally. No scleral icterus. No injection or drainage. ENT: No nasal bleeding or discharge. Mucous membranes pink and moist, very poor dentition. NECK: Trachea midline. Orotracheal intubated. Copious oral and ET tube secretions CARDIOVASCULAR: Regular rhythm, rate in 80s, sinus on monitor. No murmurs rubs or gallops. No JVD RESPIRATORY: Clear to auscultation. Breath sounds equal bilaterally. White secretions GASTROINTESTINAL: Abdomen soft, non-tender, nondistended. Bowel sounds present. No guarding MUSCULOSKELETAL: Extremities without clubbing, cyanosis, or edema. Warm, well- perfused NEUROLOGICAL: On mechanical ventilation. Left facial droop. Makes eye contact and tracks. RAJANI Squeezes with right hand and moves right lower extremity to command. Remains lethargic and weak. Flexor response to deep noxious stimuli of left lower extremity. Assessment and Plan - Problem List (1) Traumatic brain injury Code(s): S06.9X9A - Unspecified intracranial injury with loss of consciousness of unspecified duration, initial encounter Status: Acute (2) Dysphagia Code(s): R13.10 - Dysphagia, unspecified Status: Acute - Assessment and Plan Plan: Assessment and Plan NEURO: Right frontal intraparenchymal hemorrhage 53.3 cm. SAH bilat frontal lobes, right parietal lobe, right temporal. Right frontotemporal subdural hematoma 6 mm with right to left shift. Worsening midline shift right to left now 2.1 cm s/p Fall ?syncope Daily alcohol use Cocaine abuse CT 03/21: Shows significant worsening of the [id number] midline shift in the frontal region, now measuring 2.1 cm, with decrease in the density of the right frontal hematoma. CT 03/08 with evolution of hemorrhage, vasogenic edema with increased midline shift, 2.[address] 03/15 Evolving right frontal lobe parenchymal hemorrhage with cerebral edema and leftward midline shift 1.6. Minimal left frontal and parietal subarachnoid blood without associated mass effect. Continuing mannitol 25 gram IV q6, will restart hyperosmolar therapy and target sodium of 150-155 Resume 2% saline EEG mild encephalopathy, no seizures. Cardene to maintain systolic blood pressure less than 140, Keppra 500 mg IV every 12 hours CTA brain and neck 03/03/[address] C-spine -negative for acute injury Tylenol as needed for temp >100.4 Dr. Dolan is the neurosurgeon following, now Dr. Chacko is covering MVI/Thiamine/folic acid supplementation IV Monitor for evidence of alcohol withdrawal. RESP: Acute respiratory failure secondary to failure to protect airway Tobacco abuse Elevated carboxyhemoglobin level consistent with history of smoking PRVC/AC with daily CPAP Inability to protect airway and increasing midline shift prevents extubation Will need tracheostomy, will attempt locating family CV: Monitor HR and BP keep MAP>65mmHg Hydralazine 25mg Q8, Norvasc 10 daily. Cardene to maintain SBP <140 as per above. Labetalol prn. 2% saline at 42 ml per hour to keep NA 150-155 GI: Enteral feeds with goal rate 40ml/hr, monitor closely for residuals. FEN/RENAL: Monitor renal function, I/O's, electrolyte replacement protocol. ID: Monitor for signs and symptoms of infection. Repeat sputum culture HEME: Monitor CBC ENDO: Euglycemic. Monitor bedside glucose every 6 hours. PROPH: SCDs and teds for DVT prophylaxis. Pharmacologic DVT prophylaxis is contraindicated due to intracerebral hemorrhage. Famotidine for stress ulcer prophylaxis Full code status CCT 35 Overall impression: Patient continues to be very critical, CT scan of the head now with worsening midline shift in the frontal region now 2.1 cm. Will discuss with neurosurgery restart hyperosmolar therapy he may need emergent surgical intervention. He has copious secretions. Fails to meet criteria for extubation, will most likely need a tracheostomy. CM consulted to locate family (1) Traumatic brain injury Qualifiers: Encounter type: subsequent encounter
[2018-03-22] MEDS: Sennosides Liq 8.8 MG/5 ML UDC NG/OG SCH ×2 (09:00→20:42)
[2018-03-22] MEDS: amLODIPine 10 MG Tablet NG/OG SCH (09:00)
[2018-03-22] MEDS: Polyethylene Glycol 3350 17 GM Packet NG/OG SCH ×2 (09:00→20:42)
[2018-03-22] MEDS: Docusate Sodium Liq 100 MG/10 ML UDC NG/OG SCH ×2 (09:00→20:43)
[2018-03-22] MEDS: Folic Acid 1 MG Tablet PO SCH (09:00)
[2018-03-22] MEDS: Chlorhexidine 0.12% Oral Kit 15 ML UDC OROPHARYNG SCH ×2 (09:02→22:21)
[2018-03-22] MEDS: Sodium Chloride 23.4% Inj 188 MEQ in Sod Chloride 0.9% Inj 1,000 ML IV.CONT SCH (09:02)
--- NOTE | 2018-03-22 10:19 | P.PCN ---
Date of procedure: 03/22/18 Pre-op diagnosis: ICH, midline shift Post-op diagnosis: same Procedure: Left subclavian central line placement A time-out was completed verifying correct patient, procedure, site, positioning , and special equipment if applicable. The patient was placed in a dependent position appropriate for central line placement. The patients left neck/ shoulder was prepped and draped in sterile fashion. 1% Lidocaine was used to anesthetize the surrounding skin area. 18-gauge introducer needle was inserted into the left subclavian vein with negative pressure, and there was good venous return a triple lumen, following this a guidewire was inserted. A 7 [place] Helen[place] antibiotic coated triple lumen catheter was introduced into the left subclavian vein> using the Seldinger technique. The catheter was threaded smoothly over the guide wire and appropriate blood return was obtained. Each lumen of the catheter was evacuated of air and flushed with sterile saline. The catheter was then sutured in place to the skin and a sterile dressing applied. Anesthesia: regional Surgeon: Idalmis Breaux Estimated blood loss (mL): 1 Pathology: none sent Condition: critical Disposition: ICU
--- NOTE | 2018-03-22 10:50 | XR ---
EXAM DATE: 03/22/2018 10:46 AM EDT AGE/SEX: 62 years / Male INDICATIONS: . central line placement. CLINICAL DATA: This is the patient's initial encounter. Patient reports that signs and symptoms have been present for 2 weeks and indicates a pain score of Nonresponsive. MEDICAL/SURGICAL HISTORY: Chronic obstructive pulmonary disease. Asthma. . endotracheal tube p lacement COMPARISON: [facility], CHEST 1V SINGLE AP, 03/21/2018. . FINDINGS: The lungs are clear without infiltrate, nodule, or mass. There is no appreciable pleural effusion for technique. Heart and mediastinum are unremarkable. NG tube is present with tip in the stomach. ET tube is present with tip overlapping approximately 1-2 above the cedrick. Left subclavian line is present with tip overlapping the expected region of the SVC. No definite pneumothorax is se en for technique. CONCLUSION: No acute cardiopulmonary disease. Electronically signed by: Nima Ruano MD 03/22/2018 10:48 AM EDT
[2018-03-22] MEDS: Hyoscyamine Inj 0.5 MG/ML Ampul IV.PUSH PRN (11:29)
[2018-03-22] MEDS ORDERED: Sod Chloride 0.9% Inj 1,000 ML IV.SIG ONE (12:00)
[2018-03-22] MEDS ORDERED: Phenylephrine/NS 1000 MCG/10ML Syringe IV.PUSH ONE (12:00)
[2018-03-22 13:48] LABS: ABG Base Excess 4.6 mmol/L (-2-2); ABG PCO2 37 mmHg (38-42); ABG PO2 93 mmHg (61-120)
[2018-03-22] MEDS: fentaNYL 10 mcg/mL Premix Drip 2,500 MCG/250 ML BAG IV.SIG PRN (13:59)
[2018-03-22] MEDS ORDERED: ceFAZolin 2 GM Premix Inj 2 GM/50 ML PIGGYBACK IV.SIG ONE (16:37)
[2018-03-22] MEDS ORDERED: Lidocaine 1%/Epinephrine 1:100,000 Inj 50 ML Vial ONE (16:37)
[2018-03-22] MEDS ORDERED: Gelatin Size 100 Topical Foam ONE (16:37)
[2018-03-22] MEDS ORDERED: Thrombin Topical Soln 5,000 UNIT Vial TOPICAL ONE (16:37)
[2018-03-22] MEDS ORDERED: Bisacodyl 10 MG Supp RECTAL PRN (17:10)
[2018-03-22] MEDS ORDERED: fentaNYL Citrate Inj 100 MCG/2 ML Ampul ONE ×2 (18:36→19:00)
--- NOTE | 2018-03-22 18:44 | P.OP ---
Date of procedure: 03/22/18 Procedure: Right frontotemporal parietal decompressive craniectomy and Duroplasty Anesthesia: BRENDAN Surgeon: Luis Chacko MD Road Supervisor: Rolando tay Pathology: none sent Operation and Findings: INDICATIONS FOR THE PROCEDURE Mr sullivan is a 62-year-old male who developed altered mental status. His condition was progressively deteriorating. A follow up CT scan of the brain shows severe mass effect and midline shift greater pham 2cm. A surgical decompression was indicated in an attempt to save the patient's life. I have discussed the [id number] details of the procedure, its indications, alternatives, risks and potential complications with the patient including but not limited to the risk of infection, hemorrhage, paralysis, stroke, heart attack, even vegetative state or even the possibility of . The patient fully understands. All his questions were answered. No guarantees were given. He voiced requesting the procedure and provided informed consent. He has been offered the alternative of not having aggressive management. DETAILS OF THE SURGICAL PROCEDURE The patient was endotracheally intubated and mechanically ventilated. A Dodge catheter, bilateral FADY hose and sequential compression devices were placed and kept throughout the procedure. The patient was positioned supine on a 3080 table over a soft mattress. The head was placed on a horseshoe balance screwhead polisher over a gel doughnut. All pressure points were carefully padded with egg crate mattress. The eyes were tapped shut after ointment was applied by the anesthesiologist to prevent corneal abrasion. The frontotemporal parietal area was shaved, prepped and draped in the usual sterile fashion. A standard inverted question altaf incision was outlined on the scalp and infiltrated with 1% lidocaine with epinephrine. The skin incision was made with a #10 blade down to the level of the periosteum in the frontoparietal region and to the temporalis fascia in the temporal region. Pepe clips were applied to the scalp. Using a Bovie, the temporalis fascia and muscle were incised and a subperiosteal dissection was performed reflecting the scalp flap anteriorly. The scalp was covered with a moist sponge and held in position using fish hooks. TPS drill was brought to the field and a bur hole was made in the parietal temporal region using the craniotome attachment. Then, using the footplate attachment, a large frontotemporoparietal craniotomy flap was elevated. The dura was bulging, very tense with severe pressure. The dura was opened with a 15 blade and Metzenbaum scissors. The brain was bulging due to underling edema. The bone flap was packed in sterile conditions and stored in the operative room freezer. Then the incision was irrigated with saline solution. The dural edges were tacked to the bone. The Dura was losely reconstructed with Duragen. A 10 millimeter Daniel-Rodriguez drain was then left in the subgaleal space and externalized through a separate stab incision. The incision was then closed in layers. 0 Vicryl in interrupted sutures were used to close the temporalis fascia. The galea was closed with interrupted 3-0 Vicryl. [place] were applied to the skin. The drain was secured with a 3-0 nylon. At the end of the procedure, the sponge, needle and instrument counts were all correct. Estimated blood loss was less than 70 cc or less. No blood transfusion was given. No intraoperative complications occurred. The patient received prophylactic antibiotics. The patient was then transferred to the recovery room in stable condition. COMPLICATIONS None ESTIMATED BLOOD LOSS Less than 100 cc.
--- NOTE | 2018-03-22 18:46 | P.OP ---
Date of procedure: 03/22/18 Procedure: Left frontal bur hole with placement of an intracranial pressure monitor Anesthesia: MAC Surgeon: Luis Chacko MD Negotiations Director: DIONNE Pathology: none sent Operation and Findings: INDICATIONS FOR THE PROCEDURE Mr sullivan is a 62-year-old male who developed altered mental status. His condition was progressively deteriorating. A follow up CT scan of the brain shows severe mass effect and midline shift greater pham 2cm. A surgical decompression was indicated in an attempt to save the patient's life. Placement of ICP monitor was indicated as recommended by the [employer] I have discussed the [id number] details of the procedure, its indications, alternatives, risks and potential complications with the patient including but not limited to the risk of infection, hemorrhage, paralysis, stroke, heart attack, even vegetative state or even the possibility of . The patient fully understands. All his questions were answered. No guarantees were given. He voiced requesting the procedure and provided informed consent. He has been offered the alternative of not having aggressive management. DETAILS OF THE SURGICAL PROCEDURE The left frontal area was shaved, prepped and draped in the usual sterile fashion. An entry point was selected behind the hairline, approximately 30 mm lateral to the midline. The incision was infiltrated with 1% lidocaine with epinephrine 1:100,000 dilution. A small incision was made with a 15 blade down to the level of the periosteum. Using a twist drill a delores hole was made. The dura was opened with a blunt stylet, and a Kittanning bolt was secured to the bone. A fiberoptic transducer was calibrated according to the silica mixer operator's instructions, and advanced into the parenchyma of the frontal lobe through the bolt. An intracranial pressure of 4 mmHg was achieved with a good waveform. A Betadine sterile dressing was applied. The patient tolerated the procedure well. There were no intraoperative complications. Blood loss was minimal.
[2018-03-22] MEDS ORDERED: levETIRAcetam 500mg/100mL Inj 100 ML IV.SIG SCH (20:00)
[2018-03-22] MEDS: Propofol 1000 mg/100 ml Inj 1,000 MG/100 ML BOTTLE IV.CONT PRN (20:40)
[2018-03-22] MEDS: Senna/Docusate Sodium 8.6/50 MG Tablet PO SCH (20:41)
[2018-03-22] MEDS: Sod Chloride 0.9% Inj 1,000 ML IV.CONT SCH (23:12)
[2018-03-23 00:21] LABS: Sodium 148 meq/L (136-145)
[2018-03-23] MEDS: Oral Hygiene Kit OROPHARYNG SCH ×3 (05:29→15:37)
[2018-03-23] MEDS: Artificial Tears Opth Drops 15 ML Bottle EACH EYE SCH ×3 (05:29→17:36)
[2018-03-23] MEDS: hydrALAZINE 25 MG Tablet PO SCH ×4 (05:31→23:50)
[2018-03-23 06:24] LABS: Alanine Aminotransferase 11 U/L (12-78); Alkaline Phosphatase 60 U/L (45-117); Anion Gap 9 meq/L (5-15); Aspartate Aminotransferase 29 U/L (15-37); Blood Urea Nitrogen 11 mg/dL (7-18); Calcium 8.7 mg/dL (8.5-10.1); Carbon Dioxide 24.8 meq/L (21.0-32.0); Chloride 115 meq/L (98-107); Glomerular Filtration Rate Greater Than 89 mL/min (>89); Glucose,Random 102 mg/dL (74-106); Magnesium 2.6 mg/dL (1.5-2.5); Potassium 3.6 meq/L (3.5-5.1); Sodium 149 meq/L (136-145); Total Protein 7.2 g/dL (6.4-8.2)
[2018-03-23] MEDS: Propofol 1000 mg/100 ml Inj 1,000 MG/100 ML BOTTLE IV.CONT PRN (10:14)
[2018-03-23] MEDS: Docusate Sodium Liq 100 MG/10 ML UDC NG/OG SCH ×2 (10:15→21:02)
[2018-03-23] MEDS: Folic Acid 1 MG Tablet PO SCH (10:16)
[2018-03-23] MEDS: Senna/Docusate Sodium 8.6/50 MG Tablet PO SCH ×2 (10:16→21:03)
[2018-03-23] MEDS: Polyethylene Glycol 3350 17 GM Packet NG/OG SCH ×2 (10:17→21:02)
[2018-03-23] MEDS: Sod Chloride 0.9% Inj 1,000 ML IV.CONT SCH ×2 (10:19→16:50)
[2018-03-23] MEDS: amLODIPine 10 MG Tablet NG/OG SCH (10:20)
[2018-03-23] MEDS: Chlorhexidine 0.12% Oral Kit 15 ML UDC OROPHARYNG SCH ×2 (10:20→21:02)
[2018-03-23] MEDS: Sennosides Liq 8.8 MG/5 ML UDC NG/OG SCH ×2 (10:21→21:09)
[2018-03-23] MEDS: Sodium Chloride 23.4% Inj 188 MEQ in Sod Chloride 0.9% Inj 1,000 ML IV.CONT SCH (10:21)
--- NOTE | 2018-03-23 13:24 | P.PNNS ---
Subjective Interval history: 718: intubated, awake following few command right side. ICPs stable overnight. Physical Exam Vital signs: Vital Signs 03/22/18 14:00 03/22/18 16:00 03/22/18 16:45 Temperature 99.4 F Pulse Rate 84 89 Respiratory Rate 15 15 Blood Pressure 127/76 Pulse Oximetry 100 100 03/22/18 17:18 03/22/18 18:00 03/22/18 19:00 Temperature Pulse Rate 92 H 90 Respiratory Rate 15 15 Blood Pressure 135/85 151/99 H Pulse Oximetry 100 03/22/18 20:00 03/22/18 20:28 03/22/18 22:00 Temperature 99 F Pulse Rate 91 H 90 Respiratory Rate 15 15 Blood Pressure 150/76 H Pulse Oximetry 99 03/23/18 00:00 03/23/18 01:09 03/23/18 02:00 Temperature 98.9 F Pulse Rate 86 80 Respiratory Rate 15 15 Blood Pressure 114/62 Pulse Oximetry 100 03/23/18 04:00 03/23/18 04:28 03/23/18 06:00 Temperature 99 F Pulse Rate 77 80 Respiratory Rate 15 15 Blood Pressure 119/54 L Pulse Oximetry 99 03/23/18 08:00 03/23/18 09:09 03/23/18 10:00 Temperature 99.5 F Pulse Rate 73 86 Respiratory Rate 15 15 Blood Pressure 106/50 L Pulse Oximetry 100 03/23/18 11:09 03/23/18 12:00 Temperature 98.9 F Pulse Rate 83 Respiratory Rate 15 15 Blood Pressure 120/56 L Pulse Oximetry 99 Intake & Output 03/22/18 03/23/18 03/23/18 18:59 06:59 18:59 Intake Total 1143 / 1143 860 / 860 1305 / 1305 Output Total 1200 / 1200 955 / 955 Balance -57 / -57 -95 / -95 1305 / 1305 Weight 62.2 kg Intake: IV 305 / 305 800 / 800 1305 / 1305 Diprivan 1000 mg/100 ml Inj 1, 100 / 100 100 / 100 000 mg In 100 ml @ 5 MCG/KG/MIN 1.821 mls/hr IV.CONT TITRATE PRN Rx#:[id number] NS Inj 1,000 ML @ 100 mls/hr IV 1000 / 1000 .CONT .Q10H [facility] Rx#:[id number] Sodium Chloride 23.4% Inj 188 200 / 200 MEQ In NS Inj 1,000 ML @ 42 mls /hr IV.CONT .Q24H [facility] Rx#: [id number] Sodium Chloride 3% Inj 500 ML @ 500 / 500 30 mls/hr IV.SIG Q16H [facility] Rx#: [id number] Ancef Inj 1,000 MG In NS Inj 100 / 100 100 / 100 100 ML @ 200 mls/hr IV.SIG Q8H [facility] Rx#:[id number] Keppra 500 mg/100 mL Premix 100 100 / 100 ML @ 400 mls/hr IV.SIG Q12H [facility] Rx#:[id number] Keppra Inj 500 MG In NS Inj 100 105 / 105 105 / 105 ML @ 400 mls/hr IV.SIG Q12H [facility] Rx#:[id number] Tube Feeding 38 / 38 Water Bolus Amount 60 / 60 Anesthesia Amount 800 / 800 Output: Urine 1000 / 1000 Urine Amount (Catheter) 955 / 955 Indwelling Urethral Catheter 955 / 955 Gastric Drainage 200 / 200 Right Nare Nasogastric Tube 200 / 200 Other: Date of Last Bowel Movement 03/21/18 03/21/18 # Bowel Movements 0 Narrative: Intubated opens eyes and follows simple commands on right side - Urinary Catheter Management Indwelling Temp Sensing Catheter Cath placed during this visit: yes, but has since been removed by the nurse Reason for continuing: Hourly intake/output Insertion date: 03/12/18 Insertion time: 05:30 Removal date: 03/14/18 Removal time: 17:00 Indwelling Urethral Catheter Cath placed during this visit: yes, but has since been removed by the nurse Reason for continuing: Hourly intake/output Insertion date: 03/22/18 Insertion time: 17:30 Removal date: 03/14/18 Removal time: 17:00 Assessment and Plan - Plan Impression: 62 y/o male with increased right intracerebral edema with significant 2 cm midline shift, he underwent right decompressive craniectomy 03/22/18 with placement of ICP monitor ICPs controlled Plan: cont neuro checks ICP monitor removed by Dr. Ginna jefferson critical care management
[2018-03-23] MEDS: fentaNYL 10 mcg/mL Premix Drip 2,500 MCG/250 ML BAG IV.SIG PRN (13:25)
--- NOTE | 2018-03-23 14:04 | P.PNCC ---
Subjective Subjective Remarks/Hospital Course: 03/03: 62-year-old -M[place]ese male with past medical history of COPD/asthma , tobacco abuse, daily alcohol use who presented to [facility] emergency department after a fall. Patient told EM provider that he was mopping the floor with some chemicals when he felt lightheaded and fell hitting the back of his head. Patient complained of vertigo. CT brain showed right frontal intraparenchymal hemorrhage 5 x 3.3 cm with subarachnoid hemorrhage bilateral frontal lobes, right parietal and right temporal lobes. There is a component of acute subdural hematoma along the right frontoparietal lobe that is 6 mm. There is 4 mm of subfalcine herniation to the left. He is not on anticoagulation but takes aspirin daily. He complained of headache and has received Dilaudid 0.2 mg IV in the ED. BP went up to 183/99 and he was started on Cardene and BP now 144/74 on 5mg/hr. He denied nausea, vomiting, cough, fevers or chills. CTA brain/neck demonstrate no vascular abnormality. He has been admitted by Dr. Dolan and [facility] has been consulted to assist in medical management of ICH as well as workup for syncope. He said that his son had brought him to the emergency department for evaluation however upon evaluation in the ED the son was not present and there was no phone number available for him. 03/04: Resting in bed. Drowsy, arousable. Not following commands. 03/05: Resting in bed. Drowsy, easily arousable. Squeezes with both hands on command. 03/06: More awake, following commands. Dysarthric. Left-sided weakness persists. 03/07 Patient is awake on room air oxygen when seen. Follows commands. 03/08 Reportedly was cooperative and conversant with PT yesterday, oriented x3. Today will follow commands but is lethargic, no comprehensible words. No witnessed seizure. Subjective: 03/09 CT brain yesterday with evolving R frontal lobe hematoma, vasogenic edema with 2.2 cm right to left midline shift. EEG mild encephalopathy, no seizure. He continues to protect his airway, follows commands on the right. 03/09 CT brain yesterday with evolving R frontal lobe hematoma, vasogenic edema with 2.2 cm right to left midline shift. EEG mild encephalopathy, no seizure. He continues to protect his airway, follows commands on the right. 03/10: Awake and alert. Follows commands on the right. Protecting airway currently. On 3% saline. 03/11:Drowsy, easily arousable at the time of my evaluation this morning, moves right upper and lower extremity. speech unclear (mumbles). 03/12: Intubated yesterday secondary to altered mental status and copious thick secretions. Tube feeds of been resumed. Bowel regimen resume. SUBJECTIVE: 03/13: Afebrile. Lessening sedation. Off will follow commands right upper extremity. Withdraws bilateral x-rays. Flaccid left upper extremity. Tolerating tube feeds. Disimpacted yesterday. Not sufficiently abdomen still distended will check CT abdomen/pelvis with oral contrast today 03/14: Had small BM, abdomen not distended. Will hold pain meds to encourage bowel activity. 03/15: Hold extubation due to hematoma mass-effect and episodic apnea spells. He does tolerate CPAP trials otherwise. 03/16: He does reasonably well on spontaneous breathing trials with the exception of periodic brief episodes of apnea. Head CT yesterday reveals continued mass-effect from the right frontal lobe hematoma. Serum osmolality has been greater than 320 and it would appear that we have maximized efforts to reduce cerebral edema. We will attempt extubation when neurosurgical service feels it is appropriate. 03/17: Osmolality is acceptable. Tolerate CPAP trials but major concern is whether he can protect his airway or not following extubation. Will discuss with neurosurgery the appropriateness of trial extubation versus proceeding directly to tracheostomy. 03/18: Serum osmolality remains well concentrated. We will attempt trial extubation today. 03/19: On spontaneous breathing trials his tidal volumes are only about 200 cc and he does not have the strength to cough. In the context of his copious secretions and minimal respiratory effort he will be a high risk for aspiration and pneumonia. We have made numerous attempts to contact suppose it family members without success. We continue to try to update family. He will need a tracheostomy. 03/20: Spontaneous breathing trials continued to be sporadically successful. It is doubtful he will protect his airway. We are looking for family to consent for a tracheostomy. 03/21: Wakes up easily follows commands on the right side, still appears lethargic and weak. Low tidal volumes on spontaneous breathing trials. 03/22: Patient remains intubated, copious amount of oral and ET tube secretions. He follows commands on right side but remains lethargic. There is interval worsening of [id number] midline shift in the frontal region, now measuring 2.1 cm. Restart hyperosmolar therapy with 2% saline at 42 mL/h and frequent neuro check and sodium check. Continue mannitol will discuss with Dr. Chacko 03/23: Patient underwent Right frontotemporal parietal decompressive craniectomy and Duroplasty by Dr. Chacko on 03/22/18 for worsening midline shift. Postop ICP well controlled. Receiving 3% saline and mannitol. On lightening sedation able to follow commands on the right side Objective Vital Signs / I&O: Vital Signs 03/22/18 14:00 03/22/18 16:00 03/22/18 16:45 Temperature 99.4 F Pulse Rate 84 89 Respiratory Rate 15 15 Blood Pressure 127/76 Pulse Oximetry 100 100 03/22/18 17:18 03/22/18 18:00 03/22/18 19:00 Temperature Pulse Rate 92 H 90 Respiratory Rate 15 15 Blood Pressure 135/85 151/99 H Pulse Oximetry 100 03/22/18 20:00 03/22/18 20:28 03/22/18 22:00 Temperature 99 F Pulse Rate 91 H 90 Respiratory Rate 15 15 Blood Pressure 150/76 H Pulse Oximetry 99 03/23/18 00:00 03/23/18 01:09 03/23/18 02:00 Temperature 98.9 F Pulse Rate 86 80 Respiratory Rate 15 15 Blood Pressure 114/62 Pulse Oximetry 100 03/23/18 04:00 03/23/18 04:28 03/23/18 06:00 Temperature 99 F Pulse Rate 77 80 Respiratory Rate 15 15 Blood Pressure 119/54 L Pulse Oximetry 99 03/23/18 08:00 03/23/18 09:09 03/23/18 10:00 Temperature 99.5 F Pulse Rate 73 86 Respiratory Rate 15 15 Blood Pressure 106/50 L Pulse Oximetry 100 03/23/18 11:09 03/23/18 12:00 Temperature 98.9 F Pulse Rate 83 Respiratory Rate 15 15 Blood Pressure 120/56 L Pulse Oximetry 99 Intake & Output 03/22/18 03/23/18 03/23/18 18:59 06:59 18:59 Intake Total 1143 / 1143 860 / 860 1555 / 1555 Output Total 1200 / 1200 955 / 955 Balance -57 / -57 -95 / -95 1555 / 1555 Weight 62.2 kg Intake: IV 305 / 305 800 / 800 1555 / 1555 Diprivan 1000 mg/100 ml Inj 1, 100 / 100 100 / 100 000 mg In 100 ml @ 5 MCG/KG/MIN 1.821 mls/hr IV.CONT TITRATE PRN Rx#:[id number] NS Inj 1,000 ML @ 100 mls/hr IV 1000 / 1000 .CONT .Q10H PEDRO LUIS Rx#:[id number] Sodium Chloride 23.4% Inj 188 200 / 200 MEQ In NS Inj 1,000 ML @ 42 mls /hr IV.CONT .Q24H PEDRO LUIS Rx#: [id number] Sodium Chloride 3% Inj 500 ML @ 500 / 500 30 mls/hr IV.SIG Q16H PEDRO LUIS Rx#: [id number] Ancef Inj 1,000 MG In NS Inj 100 / 100 100 / 100 100 ML @ 200 mls/hr IV.SIG Q8H PEDRO LUIS Rx#:[id number] fentaNYL 10 mcg/mL Premix Drip 250 / 250 2,500 mcg In 250 ml @ 50 MCG/HR 5 mls/hr IV.SIG TITRATE PRN Rx #:[id number] Keppra 500 mg/100 mL Premix 100 100 / 100 ML @ 400 mls/hr IV.SIG Q12H PEDRO LUIS Rx#:[id number] Keppra Inj 500 MG In NS Inj 100 105 / 105 105 / 105 ML @ 400 mls/hr IV.SIG Q12H PEDRO LUIS Rx#:[id number] Tube Feeding 38 / 38 Water Bolus Amount 60 / 60 Anesthesia Amount 800 / 800 Output: Urine 1000 / 1000 Urine Amount (Catheter) 955 / 955 Indwelling Urethral Catheter 955 / 955 Gastric Drainage 200 / 200 Right Nare Nasogastric Tube 200 / 200 Other: Date of Last Bowel Movement 03/21/18 03/21/18 # Bowel Movements 0 Result Diagrams: 03/22/18 05:21 03/23/18 05:24 Objective Remarks: GENERAL: Under nourished, -[place]ese male with temporal muscle wasting. Intubated sedated SKIN: Warm and dry. HEAD: Normocephalic. Circumferential craniotomy dressing in place, drain with sanguinous output EYES: Pupils 4 mm and reactive bilaterally. No scleral icterus. No injection or drainage. ENT: No nasal bleeding or discharge. Mucous membranes pink and moist, very poor dentition. NECK: Trachea midline. Orotracheal intubated. + ET tube secretions CARDIOVASCULAR: Regular rhythm, rate in 80s, sinus on monitor. No murmurs rubs or gallops. No JVD RESPIRATORY: Clear to auscultation. Breath sounds equal bilaterally. White secretions GASTROINTESTINAL: Abdomen soft, non-tender, nondistended. Bowel sounds present. No guarding MUSCULOSKELETAL: Extremities without clubbing, cyanosis, or edema. Warm, well- perfused NEUROLOGICAL: ICP monitor in place. Left facial droop. RAJANI Squeezes with right hand and moves right lower extremity to command. Remains lethargic and weak. Flexor response to deep noxious stimuli of left lower extremity. Assessment and Plan - Problem List (1) Traumatic brain injury Code(s): S06.9X9A - Unspecified intracranial injury with loss of consciousness of unspecified duration, initial encounter Status: Acute (2) Dysphagia Code(s): R13.10 - Dysphagia, unspecified Status: Acute - Assessment and Plan Plan: Assessment and Plan NEURO: Right frontal intraparenchymal hemorrhage 53.3 cm. SAH bilat frontal lobes, right parietal lobe, right temporal. Right frontotemporal subdural hematoma 6 mm with right to left shift. Worsening midline shift right to left now 2.1 cm s/p Fall ?syncope Daily alcohol use Cocaine abuse s/p Right frontotemporal parietal decompressive craniectomy and Duroplasty by Dr. Chacko. Postop imaging per Dr. Chacko CT 03/21: significant worsening of the [id number] midline shift in the frontal region, now measuring 2.1 cm, with decrease in the density of the right frontal hematoma. CT 03/08 with evolution of hemorrhage, vasogenic edema with increased midline shift, 2.[address] 03/15 Evolving r frontal lobe parenchymal hemorrhage with cerebral edema and leftward midline shift 1.6. Minimal left frontal and parietal sSAH without mass effect. Continuing mannitol 25 gram IV q6, 3% saline target sodium of 150-155 EEG mild encephalopathy, no seizures. Cardene to maintain systolic blood pressure less than 140, Keppra 500 mg IV every 12 hours CTA brain and neck 03/03/[address] C-spine -negative for acute injury Tylenol as needed for temp >100.4 Dr. Dolan is the neurosurgeon following, now Dr. Chacko is covering MVI/Thiamine/folic acid supplementation IV Monitor for evidence of alcohol withdrawal. RESP: Acute respiratory failure secondary to failure to protect airway Tobacco abuse Elevated carboxyhemoglobin level consistent with history of smoking PRVC/AC with daily CPAP Inability to protect airway and increasing midline shift prevents extubation Will need tracheostomy, if he continues to fail extubation criteria CV: Monitor HR and BP keep MAP>65mmHg Hydralazine 25mg Q8, Norvasc 10 daily-hold to keep CPP above 60 Cardene to maintain SBP <140 as per above. Labetalol prn. 3% saline at 30 ml per hour to keep NA 150-155 GI: Resume Enteral feeds with goal rate 40ml/hr, monitor closely for residuals. FEN/RENAL: Monitor renal function, I/O's, electrolyte replacement protocol. ID: Monitor for signs and symptoms of infection. Repeat sputum culture-negative to date HEME: Monitor CBC ENDO: Euglycemic. Monitor bedside glucose every 6 hours. PROPH: SCDs and teds for DVT prophylaxis. Pharmacologic DVT prophylaxis is contraindicated due to intracerebral hemorrhage. Famotidine for stress ulcer prophylaxis Full code status CCT 35 Overall impression: Patient continues to be very critical, CT scan of the head with worsening midline shift in the frontal region now 2.1 cm. s/p Right frontotemporal parietal decompressive craniectomy and Duroplasty. For emergency decompression. Continue sedation for ICP control. Most likely will need tracheostomy (1) Traumatic brain injury Qualifiers: Encounter type: subsequent encounter
[2018-03-24] MEDS: Oral Hygiene Kit OROPHARYNG SCH ×4 (00:47→16:26)
[2018-03-24] MEDS: hydrALAZINE 25 MG Tablet PO SCH ×4 (04:22→22:28)
[2018-03-24] MEDS: fentaNYL 10 mcg/mL Premix Drip 2,500 MCG/250 ML BAG IV.SIG PRN (05:39)
[2018-03-24] MEDS: Carboxymethylcellulose 0.5% Opth Drops 15 ML Bottle EACH EYE SCH ×3 (06:24→22:28)
[2018-03-24 08:18] LABS: Hematocrit 27.3 % (39.0-51.0); Hemoglobin 8.8 gm/dL (13.0-17.0); Mean Corpuscular HGB Conc 32.3 % (32.0-36.0); Mean Platelet Volume 6.9 fL (7.0-11.0); Platelet Count 267 th/mm3 (150-450); Red Blood Count 2.85 mil/mm3 (4.50-5.90); Red Cell Distribution Width 13.3 % (11.6-17.2); White Blood Count 7.2 th/mm3 (4.0-11.0)
[2018-03-24] MEDS: Docusate Sodium Liq 100 MG/10 ML UDC NG/OG SCH ×2 (08:24→20:32)
[2018-03-24] MEDS: Chlorhexidine 0.12% Oral Kit 15 ML UDC OROPHARYNG SCH ×2 (08:24→20:31)
[2018-03-24] MEDS: Folic Acid 1 MG Tablet PO SCH (08:24)
[2018-03-24] MEDS: Sodium Chloride 23.4% Inj 188 MEQ in Sod Chloride 0.9% Inj 1,000 ML IV.CONT SCH (08:24)
[2018-03-24] MEDS: Sennosides Liq 8.8 MG/5 ML UDC NG/OG SCH ×2 (08:25→20:32)
[2018-03-24] MEDS: Polyethylene Glycol 3350 17 GM Packet NG/OG SCH ×2 (08:25→20:32)
[2018-03-24] MEDS: amLODIPine 10 MG Tablet NG/OG SCH (08:25)
[2018-03-24] MEDS: Senna/Docusate Sodium 8.6/50 MG Tablet PO SCH ×2 (08:25→20:32)
[2018-03-24 08:40] LABS: Alanine Aminotransferase 12 U/L (12-78); Alkaline Phosphatase 54 U/L (45-117); Anion Gap 5 meq/L (5-15); Aspartate Aminotransferase 23 U/L (15-37); Blood Urea Nitrogen 9 mg/dL (7-18); Calcium 8.1 mg/dL (8.5-10.1); Carbon Dioxide 28.3 meq/L (21.0-32.0); Chloride 123 meq/L (98-107); Glomerular Filtration Rate Greater Than 89 mL/min (>89); Glucose,Random 109 mg/dL (74-106); Potassium 3.7 meq/L (3.5-5.1); Total Protein 7.1 g/dL (6.4-8.2)
[2018-03-24 08:41] LABS: Sodium 156 meq/L (136-145)
--- NOTE | 2018-03-24 10:30 | P.PNCC ---
Subjective Subjective Remarks/Hospital Course: 03/03: 62-year-old -[place] male with past medical history of COPD/asthma , tobacco abuse, daily alcohol use who presented to [facility] emergency department after a fall. Patient told EM provider that he was mopping the floor with some chemicals when he felt lightheaded and fell hitting the back of his head. Patient complained of vertigo. CT brain showed right frontal intraparenchymal hemorrhage 5 x 3.3 cm with subarachnoid hemorrhage bilateral frontal lobes, right parietal and right temporal lobes. There is a component of acute subdural hematoma along the right frontoparietal lobe that is 6 mm. There is 4 mm of subfalcine herniation to the left. He is not on anticoagulation but takes aspirin daily. He complained of headache and has received Dilaudid 0.2 mg IV in the ED. BP went up to 183/99 and he was started on Cardene and BP now 144/74 on 5mg/hr. He denied nausea, vomiting, cough, fevers or chills. CTA brain/neck demonstrate no vascular abnormality. He has been admitted by Dr. Dolan and [facility] has been consulted to assist in medical management of ICH as well as workup for syncope. He said that his son had brought him to the emergency department for evaluation however upon evaluation in the ED the son was not present and there was no phone number available for him. 03/04: Resting in bed. Drowsy, arousable. Not following commands. 03/05: Resting in bed. Drowsy, easily arousable. Squeezes with both hands on command. 03/06: More awake, following commands. Dysarthric. Left-sided weakness persists. 03/07 Patient is awake on room air oxygen when seen. Follows commands. 03/08 Reportedly was cooperative and conversant with PT yesterday, oriented x3. Today will follow commands but is lethargic, no comprehensible words. No witnessed seizure. Subjective: 03/09 CT brain yesterday with evolving R frontal lobe hematoma, vasogenic edema with 2.2 cm right to left midline shift. EEG mild encephalopathy, no seizure. He continues to protect his airway, follows commands on the right. 03/09 CT brain yesterday with evolving R frontal lobe hematoma, vasogenic edema with 2.2 cm right to left midline shift. EEG mild encephalopathy, no seizure. He continues to protect his airway, follows commands on the right. 03/10: Awake and alert. Follows commands on the right. Protecting airway currently. On 3% saline. 03/11:Drowsy, easily arousable at the time of my evaluation this morning, moves right upper and lower extremity. speech unclear (mumbles). 03/12: Intubated yesterday secondary to altered mental status and copious thick secretions. Tube feeds of been resumed. Bowel regimen resume. SUBJECTIVE: 03/13: Afebrile. Lessening sedation. Off will follow commands right upper extremity. Withdraws bilateral x-rays. Flaccid left upper extremity. Tolerating tube feeds. Disimpacted yesterday. Not sufficiently abdomen still distended will check CT abdomen/pelvis with oral contrast today 03/14: Had small BM, abdomen not distended. Will hold pain meds to encourage bowel activity. 03/15: Hold extubation due to hematoma mass-effect and episodic apnea spells. He does tolerate CPAP trials otherwise. 03/16: He does reasonably well on spontaneous breathing trials with the exception of periodic brief episodes of apnea. Head CT yesterday reveals continued mass-effect from the right frontal lobe hematoma. Serum osmolality has been greater than 320 and it would appear that we have maximized efforts to reduce cerebral edema. We will attempt extubation when neurosurgical service feels it is appropriate. 03/17: Osmolality is acceptable. Tolerate CPAP trials but major concern is whether he can protect his airway or not following extubation. Will discuss with neurosurgery the appropriateness of trial extubation versus proceeding directly to tracheostomy. 03/18: Serum osmolality remains well concentrated. We will attempt trial extubation today. 03/19: On spontaneous breathing trials his tidal volumes are only about 200 cc and he does not have the strength to cough. In the context of his copious secretions and minimal respiratory effort he will be a high risk for aspiration and pneumonia. We have made numerous attempts to contact suppose it family members without success. We continue to try to update family. He will need a tracheostomy. 03/20: Spontaneous breathing trials continued to be sporadically successful. It is doubtful he will protect his airway. We are looking for family to consent for a tracheostomy. 03/21: Wakes up easily follows commands on the right side, still appears lethargic and weak. Low tidal volumes on spontaneous breathing trials. 03/22: Patient remains intubated, copious amount of oral and ET tube secretions. He follows commands on right side but remains lethargic. There is interval worsening of [id number] midline shift in the frontal region, now measuring 2.1 cm. Restart hyperosmolar therapy with 2% saline at 42 mL/h and frequent neuro check and sodium check. Continue mannitol will discuss with Dr. Chacko 03/23: Patient underwent Right frontotemporal parietal decompressive craniectomy and Duroplasty by Dr. Chacko on 03/22/18 for worsening midline shift. Postop ICP well controlled. Receiving 3% saline and mannitol. On lightening sedation able to follow commands on the right side 03/24: Patient is more awake today following commands briskly on the right side. Remains hemiplegic on the left side. On sedation hold currently tolerating CPAP. Sodium is 156 and 3% saline was discontinued. Neurosurgery following okay to wean sedation and ventilator Objective Vital Signs / I&O: Vital Signs 03/23/18 11:09 03/23/18 12:00 03/23/18 14:00 Temperature 98.9 F Pulse Rate 83 78 Respiratory Rate 15 15 Blood Pressure 120/56 L Pulse Oximetry 99 03/23/18 16:00 03/23/18 16:49 03/23/18 18:00 Temperature 98.9 F Pulse Rate 86 83 Respiratory Rate 15 15 Blood Pressure 126/60 Pulse Oximetry 99 100 03/23/18 19:58 03/23/18 20:00 03/23/18 22:00 Temperature 99.5 F Pulse Rate 101 H 87 Respiratory Rate 15 15 Blood Pressure 132/75 Pulse Oximetry 100 97 03/24/18 00:00 03/24/18 01:08 03/24/18 02:00 Temperature 99.2 F Pulse Rate 84 82 Respiratory Rate 15 15 Blood Pressure 124/79 Pulse Oximetry 100 98 03/24/18 04:00 03/24/18 04:23 03/24/18 06:00 Temperature 99.0 F Pulse Rate 82 86 Respiratory Rate 15 15 Blood Pressure 115/71 Pulse Oximetry 100 100 03/24/18 08:00 03/24/18 10:19 Temperature 98.3 F Pulse Rate 90 Respiratory Rate 15 10 L Blood Pressure 113/55 L Pulse Oximetry 100 99 Intake & Output 03/23/18 03/24/18 03/24/18 18:59 06:59 18:59 Intake Total 2022 1166 / 1166 Output Total 1185 / 1185 777 / 777 Balance 838 / 838 389 / 389 Weight 61.8 kg Intake: IV 1555 / 1555 750 / 750 Diprivan 1000 mg/100 ml Inj 1, 100 / 100 000 mg In 100 ml @ 5 MCG/KG/MIN 1.821 mls/hr IV.CONT TITRATE PRN Rx#:[id number] NS Inj 1,000 ML @ 100 mls/hr IV 1000 / 1000 .CONT .Q10H PEDRO LUIS Rx#:[id number] Sodium Chloride 3% Inj 500 ML @ 500 / 500 30 mls/hr IV.SIG Q16H PEDRO LUIS Rx#: [id number] Ancef Inj 1,000 MG In NS Inj 100 / 100 100 ML @ 200 mls/hr IV.SIG Q8H PEDRO LUIS Rx#:[id number] fentaNYL 10 mcg/mL Premix Drip 250 / 250 250 / 250 2,500 mcg In 250 ml @ 50 MCG/HR 5 mls/hr IV.SIG TITRATE PRN Rx #:[id number] Keppra Inj 500 MG In NS Inj 100 105 / 105 ML @ 400 mls/hr IV.SIG Q12H PEDRO LUIS Rx#:[id number] Tube Feeding 168 / 168 236 / 236 Tube Irrigant 180 / 180 Water Bolus Amount 300 / 300 Output: Urine Amount (Catheter) 1175 / 1175 775 / 775 Indwelling Urethral Catheter 1175 / 1175 775 / 775 Wound Drainage 2 Head Other: Date of Last Bowel Movement 03/24/18 03/24/18 # Incontinent Bowel Movements 1 Result Diagrams: 03/24/18 08:05 03/24/18 08:05 Objective Remarks: GENERAL: Under nourished, -[place]e male with temporal muscle wasting. Intubated sedated SKIN: Warm and dry. HEAD: Normocephalic. Circumferential craniotomy dressing in place, drain with sanguinous output EYES: Pupils 4 mm and reactive bilaterally. No scleral icterus. No injection or drainage. ENT: No nasal bleeding or discharge. Mucous membranes pink and moist, very poor dentition. NECK: Trachea midline. Orotracheal intubated. CARDIOVASCULAR: Regular rhythm, rate in 80s, sinus on monitor. No murmurs rubs or gallops. No JVD RESPIRATORY: Clear to auscultation. Breath sounds equal bilaterally. White secretions GASTROINTESTINAL: Abdomen soft, non-tender, nondistended. Bowel sounds present. No guarding MUSCULOSKELETAL: Extremities without clubbing, cyanosis, or edema. Warm, well- perfused NEUROLOGICAL: Left facial droop. RAJANI follows commands on right upper and lower extremity more briskly today, nods head to questions. Flexor response to deep noxious stimuli of left lower extremity. Assessment and Plan - Problem List (1) Traumatic brain injury Code(s): S06.9X9A - Unspecified intracranial injury with loss of consciousness of unspecified duration, initial encounter Status: Acute (2) Dysphagia Code(s): R13.10 - Dysphagia, unspecified Status: Acute - Assessment and Plan Plan: Assessment and Plan NEURO: Right frontal IPH 53.3 cm. SAH bilat frontal lobes, right parietal lobe, right temporal. Right frontotemporal SHD 6 mm with right to left shift. Worsening midline shift right to left now 2.1 cm, status post emergency craniectomy for decompression s/p Fall ?syncope Daily alcohol use Cocaine abuse s/p Right frontotemporal parietal decompressive craniectomy and Duroplasty by Dr. Chacko. Postop imaging per Dr. Chacko CT 03/21: significant worsening of the [id number] midline shift frontal region , now measuring 2.1 cm, with decrease in the density of the right frontal hematoma. CT 03/08 with evolution of hemorrhage, vasogenic edema with increased midline shift, 2.[address] 03/15 Evolving r frontal lobe IPH with cerebral edema and leftward midline shift 1.6. Minimal left frontal and parietal SAH without mass effect. Continuing mannitol 25 gram IV q6, 3% saline target sodium of 150-155, hold as Na 156 EEG mild encephalopathy, no seizures. Cardene to maintain systolic blood pressure less than 140, Keppra 500 mg IV every 12 hours CTA brain and neck 03/03/[address] C-spine -negative for acute injury Tylenol as needed for temp >100.4 Dr. Dolan is the neurosurgeon following, now Dr. Chacko is covering MVI/Thiamine/folic acid supplementation IV Monitor for evidence of alcohol withdrawal. RESP: Acute respiratory failure secondary to failure to protect airway Tobacco abuse Elevated carboxyhemoglobin level consistent with history of smoking PRVC/AC with daily CPAP More awake today attempt CPAP with parameters and ABG May need tracheostomy CV: Monitor HR and BP keep MAP>65mmHg Hydralazine 25mg Q8, Norvasc 10 daily-hold to keep CPP above 60 Cardene to maintain SBP <140 as per above. Labetalol prn. 3% saline at 30 ml per hour to keep NA 150-155 GI: Enteral feeds with goal rate 40ml/hr, monitor closely for residuals. FEN/RENAL: Monitor renal function, I/O's, electrolyte replacement protocol. ID: Monitor for signs and symptoms of infection. Repeat sputum culture-negative to date HEME: Monitor CBC ENDO: Euglycemic. Monitor bedside glucose every 6 hours. PROPH: SCDs and teds for DVT prophylaxis. Pharmacologic DVT prophylaxis is contraindicated due to intracerebral hemorrhage. Famotidine for stress ulcer prophylaxis Full code status CCT 32 Overall impression: Patient continues to be critical, CT scan of the head with worsening midline shift in the frontal region now 2.1 cm. s/p Right frontotemporal parietal decompressive craniectomy and Duroplasty. For emergency decompression. (1) Traumatic brain injury Qualifiers: Encounter type: subsequent encounter
[2018-03-24 11:07] LABS: ABG Base Excess 0.1 mmol/L (-2-2); ABG PCO2 45 mmHg (38-42); ABG PO2 83 mmHg (61-120)
[2018-03-24] MEDS ORDERED: Vancomycin Inj 1,000 MG in Sodium Chlor 0.9% Inj 250 ML IV.SIG ONE (11:22)
[2018-03-24] MEDS ORDERED: Vancomycin Consult Pharmacy 1 EACH OTHER SCH (12:00)
[2018-03-24] MEDS ORDERED: Hyoscyamine Inj 0.5 MG/ML Ampul IV.PUSH ONE (12:30)
[2018-03-24] MEDS: Morphine Inj 4 MG/ML Vial IV.PUSH PRN (13:01)
--- NOTE | 2018-03-24 13:41 | P.PNNS ---
Subjective Interval history: 03/24: intubated, awake, follows right side to command Physical Exam Vital signs: Vital Signs 03/23/18 14:00 03/23/18 16:00 03/23/18 16:49 Temperature 98.9 F Pulse Rate 78 86 Respiratory Rate 15 15 Blood Pressure 126/60 Pulse Oximetry 99 100 03/23/18 18:00 03/23/18 19:58 03/23/18 20:00 Temperature 99.5 F Pulse Rate 83 101 H Respiratory Rate 15 15 Blood Pressure 132/75 Pulse Oximetry 100 97 03/23/18 22:00 03/24/18 00:00 03/24/18 01:08 Temperature 99.2 F Pulse Rate 87 84 Respiratory Rate 15 15 Blood Pressure 124/79 Pulse Oximetry 100 98 03/24/18 02:00 03/24/18 04:00 03/24/18 04:23 Temperature 99.0 F Pulse Rate 82 82 Respiratory Rate 15 15 Blood Pressure 115/71 Pulse Oximetry 100 100 03/24/18 06:00 03/24/18 08:00 03/24/18 10:00 Temperature 98.3 F Pulse Rate 86 90 95 H Respiratory Rate 15 Blood Pressure 113/55 L Pulse Oximetry 100 03/24/18 10:19 03/24/18 12:00 Temperature 98.3 F Pulse Rate 93 H Respiratory Rate 10 L 16 Blood Pressure 124/63 Pulse Oximetry 99 100 Intake & Output 03/23/18 03/24/18 03/24/18 18:59 06:59 18:59 Intake Total 2022 / 2022 1271 / 1271 Output Total 1185 / 1185 777 / 777 Balance 838 / 838 494 / 494 Weight 61.8 kg Intake: IV 1555 / 1555 855 / 855 Diprivan 1000 mg/100 ml Inj 1, 100 / 100 000 mg In 100 ml @ 5 MCG/KG/MIN 1.821 mls/hr IV.CONT TITRATE PRN Rx#:[id number] NS Inj 1,000 ML @ 100 mls/hr IV 1000 / 1000 .CONT .Q10H [facility] Rx#:[id number] Sodium Chloride 3% Inj 500 ML @ 500 / 500 30 mls/hr IV.SIG Q16H [facility] Rx#: [id number] Ancef Inj 1,000 MG In NS Inj 100 / 100 100 ML @ 200 mls/hr IV.SIG Q8H [facility] Rx#:[id number] fentaNYL 10 mcg/mL Premix Drip 250 / 250 250 / 250 2,500 mcg In 250 ml @ 50 MCG/HR 5 mls/hr IV.SIG TITRATE PRN Rx #:[id number] Keppra Inj 500 MG In NS Inj 100 105 / 105 105 / 105 ML @ 400 mls/hr IV.SIG Q12H [facility] Rx#:[id number] Tube Feeding 168 / 168 236 / 236 Tube Irrigant 180 / 180 Water Bolus Amount 300 / 300 Output: Urine Amount (Catheter) 1175 / 1175 775 / 775 Indwelling Urethral Catheter 1175 / 1175 775 / 775 Wound Drainage Head Other: Date of Last Bowel Movement 03/24/18 03/24/18 # Incontinent Bowel Movements 1 Narrative: Intubated opens eyes and follows simple commands on right side, gave right thumbs up wound with clean head dressing, AMIRAH drain in place - Urinary Catheter Management Indwelling Temp Sensing Catheter Cath placed during this visit: yes, but has since been removed by the nurse Reason for continuing: Hourly intake/output Insertion date: 03/12/18 Insertion time: 05:30 Removal date: 03/14/18 Removal time: 17:00 Indwelling Urethral Catheter Cath placed during this visit: yes, but has since been removed by the nurse Reason for continuing: Other continuation reason Insertion date: 03/22/18 Insertion time: 17:30 Removal date: 03/14/18 Removal time: 17:00 Assessment and Plan - Plan Impression: 62 y/o male with increased right intracerebral edema with significant 2 cm midline shift, he underwent right decompressive craniectomy 03/22/18 with placement of ICP monitor, il'ed 03/23/18 Plan: cont neuro checks cont critical care management
[2018-03-24] MEDS: Vancomycin Inj 1,250 MG in Sodium Chlor 0.9% Inj 250 ML IV.SIG SCH (20:38)
[2018-03-25] MEDS: Oral Hygiene Kit OROPHARYNG SCH ×4 (01:10→15:07)
[2018-03-25] MEDS: hydrALAZINE 25 MG Tablet PO SCH ×5 (04:19→23:45)
[2018-03-25 04:42] LABS: Hematocrit 26.5 % (39.0-51.0); Hemoglobin 8.8 gm/dL (13.0-17.0); Mean Corpuscular HGB Conc 33.1 % (32.0-36.0); Mean Corpuscular Hemoglobin 31.7 pg (27.0-34.0); Mean Corpuscular Volume 95.6 fL (80.0-100.0); Mean Platelet Volume 6.9 fL (7.0-11.0); Platelet Count 259 th/mm3 (150-450); Red Blood Count 2.78 mil/mm3 (4.50-5.90); Red Cell Distribution Width 13.1 % (11.6-17.2); White Blood Count 8.3 th/mm3 (4.0-11.0)
[2018-03-25 05:05] LABS: Alanine Aminotransferase 10 U/L (12-78); Alkaline Phosphatase 54 U/L (45-117); Anion Gap 9 meq/L (5-15); Aspartate Aminotransferase 30 U/L (15-37); Blood Urea Nitrogen 7 mg/dL (7-18); Calcium 8.4 mg/dL (8.5-10.1); Chloride 114 meq/L (98-107); Glomerular Filtration Rate Greater Than 89 mL/min (>89); Glucose,Random 122 mg/dL (74-106); Magnesium 2.5 mg/dL (1.5-2.5); Potassium 3.3 meq/L (3.5-5.1); Sodium 150 meq/L (136-145); Total Protein 7.2 g/dL (6.4-8.2)
--- NOTE | 2018-03-25 05:22 | XR ---
EXAM DATE: 03/25/2018 5:02 AM EDT AGE/SEX: 62 years / Male INDICATIONS: Respiratory disease. CLINICAL DATA: This is the patient's subsequent encounter. Patient reports that signs and symptoms h ave been present for 3 weeks and indicates a pain score of Nonresponsive. MEDICAL/SURGICAL HISTORY: . Chronic obstructive pulmonary disease. Asthma. None. [place] [facility] [place]. . FINDINGS: No infiltrate, effusion or pneumothorax demonstrated. Heart size stable, within normal limits. Endotracheal tube tip is approximately 3 cm above the cedrick. There is a left subclavian central veno us catheter with tip in the superior vena cava. Nasogastric tube has its tip in the stomach. CONCLUSION: Lungs remain clear. No significant change line/tube positions as above. Electronically signed by: Saeid Cardenas MD 03/25/2018 5:20 AM EDT
[2018-03-25] MEDS: Carboxymethylcellulose 0.5% Opth Drops 15 ML Bottle EACH EYE SCH ×3 (06:15→21:18)
--- NOTE | 2018-03-25 07:50 | P.PNCC ---
Subjective Subjective Remarks/Hospital Course: 03/03: 62-year-old -[place]onese male with past medical history of COPD/asthma , tobacco abuse, daily alcohol use who presented to [facility] emergency department after a fall. Patient told EM provider that he was mopping the floor with some chemicals when he felt lightheaded and fell hitting the back of his head. Patient complained of vertigo. CT brain showed right frontal intraparenchymal hemorrhage 5 x 3.3 cm with subarachnoid hemorrhage bilateral frontal lobes, right parietal and right temporal lobes. There is a component of acute subdural hematoma along the right frontoparietal lobe that is 6 mm. There is 4 mm of subfalcine herniation to the left. He is not on anticoagulation but takes aspirin daily. He complained of headache and has received Dilaudid 0.2 mg IV in the ED. BP went up to 183/99 and he was started on Cardene and BP now 144/74 on 5mg/hr. He denied nausea, vomiting, cough, fevers or chills. CTA brain/neck demonstrate no vascular abnormality. He has been admitted by Dr. Dolan and [facility] has been consulted to assist in medical management of ICH as well as workup for syncope. He said that his son had brought him to the emergency department for evaluation however upon evaluation in the ED the son was not present and there was no phone number available for him. 03/04: Resting in bed. Drowsy, arousable. Not following commands. 03/05: Resting in bed. Drowsy, easily arousable. Squeezes with both hands on command. 03/06: More awake, following commands. Dysarthric. Left-sided weakness persists. 03/07 Patient is awake on room air oxygen when seen. Follows commands. 03/08 Reportedly was cooperative and conversant with PT yesterday, oriented x3. Today will follow commands but is lethargic, no comprehensible words. No witnessed seizure. Subjective: 03/09 CT brain yesterday with evolving R frontal lobe hematoma, vasogenic edema with 2.2 cm right to left midline shift. EEG mild encephalopathy, no seizure. He continues to protect his airway, follows commands on the right. 03/09 CT brain yesterday with evolving R frontal lobe hematoma, vasogenic edema with 2.2 cm right to left midline shift. EEG mild encephalopathy, no seizure. He continues to protect his airway, follows commands on the right. 03/10: Awake and alert. Follows commands on the right. Protecting airway currently. On 3% saline. 03/11:Drowsy, easily arousable at the time of my evaluation this morning, moves right upper and lower extremity. speech unclear (mumbles). 03/12: Intubated yesterday secondary to altered mental status and copious thick secretions. Tube feeds of been resumed. Bowel regimen resume. SUBJECTIVE: 03/13: Afebrile. Lessening sedation. Off will follow commands right upper extremity. Withdraws bilateral x-rays. Flaccid left upper extremity. Tolerating tube feeds. Disimpacted yesterday. Not sufficiently abdomen still distended will check CT abdomen/pelvis with oral contrast today 03/14: Had small BM, abdomen not distended. Will hold pain meds to encourage bowel activity. 03/15: Hold extubation due to hematoma mass-effect and episodic apnea spells. He does tolerate CPAP trials otherwise. 03/16: He does reasonably well on spontaneous breathing trials with the exception of periodic brief episodes of apnea. Head CT yesterday reveals continued mass-effect from the right frontal lobe hematoma. Serum osmolality has been greater than 320 and it would appear that we have maximized efforts to reduce cerebral edema. We will attempt extubation when neurosurgical service feels it is appropriate. 03/17: Osmolality is acceptable. Tolerate CPAP trials but major concern is whether he can protect his airway or not following extubation. Will discuss with neurosurgery the appropriateness of trial extubation versus proceeding directly to tracheostomy. 03/18: Serum osmolality remains well concentrated. We will attempt trial extubation today. 03/19: On spontaneous breathing trials his tidal volumes are only about 200 cc and he does not have the strength to cough. In the context of his copious secretions and minimal respiratory effort he will be a high risk for aspiration and pneumonia. We have made numerous attempts to contact suppose it family members without success. We continue to try to update family. He will need a tracheostomy. 03/20: Spontaneous breathing trials continued to be sporadically successful. It is doubtful he will protect his airway. We are looking for family to consent for a tracheostomy. 03/21: Wakes up easily follows commands on the right side, still appears lethargic and weak. Low tidal volumes on spontaneous breathing trials. 03/22: Patient remains intubated, copious amount of oral and ET tube secretions. He follows commands on right side but remains lethargic. There is interval worsening of [id number] midline shift in the frontal region, now measuring 2.1 cm. Restart hyperosmolar therapy with 2% saline at 42 mL/h and frequent neuro check and sodium check. Continue mannitol will discuss with Dr. Chacko 03/23: Patient underwent Right frontotemporal parietal decompressive craniectomy and Duroplasty by Dr. Chacko on 03/22/18 for worsening midline shift. Postop ICP well controlled. Receiving 3% saline and mannitol. On lightening sedation able to follow commands on the right side 03/24: Patient is more awake today following commands briskly on the right side. Remains hemiplegic on the left side. On sedation hold currently tolerating CPAP. Sodium is 156 and 3% saline was discontinued. Neurosurgery following okay to wean sedation and ventilator 03/25: Remains awake follows commands on the right side. Still has a large amount of ET tube secretions white thick, started on vancomycin yesterday for MRSA and sputum. Unclear airway protection prevents extubation Objective Vital Signs / I&O: Vital Signs 03/24/18 08:00 03/24/18 10:00 03/24/18 10:19 Temperature 98.3 F Pulse Rate 90 95 H Respiratory Rate 15 10 L Blood Pressure 113/55 L Pulse Oximetry 100 99 03/24/18 12:00 03/24/18 14:00 03/24/18 16:00 Temperature 98.3 F 98.6 F Pulse Rate 93 H 96 H 87 Respiratory Rate 16 14 Blood Pressure 124/63 123/57 L Pulse Oximetry 100 100 03/24/18 16:02 03/24/18 18:00 03/24/18 20:00 Temperature 99.0 F Pulse Rate 96 H 104 H Respiratory Rate 25 H 18 Blood Pressure 123/74 Pulse Oximetry 100 97 03/24/18 20:09 03/24/18 22:00 03/24/18 23:44 Temperature Pulse Rate 100 H Respiratory Rate 22 18 Blood Pressure Pulse Oximetry 100 100 03/25/18 00:00 03/25/18 02:00 03/25/18 03:29 Temperature 98.7 F Pulse Rate 92 H 95 H Respiratory Rate 20 15 Blood Pressure 141/86 H Pulse Oximetry 100 100 03/25/18 04:00 03/25/18 06:00 Temperature 98.4 F Pulse Rate 92 H 98 H Respiratory Rate 17 Blood Pressure 136/83 Pulse Oximetry 100 Intake & Output 03/24/18 03/25/18 03/25/18 18:59 06:59 18:59 Intake Total 684 / 684 665.5 / 665.5 Output Total 1256 / 1256 1455 / 1455 Balance -572 / -572 -789.5 / -789.5 Weight 61 kg Intake: IV 105 / 105 262.5 / 262.5 Vancomycin Inj 1,250 MG In NS 262.5 / 262.5 Inj 250 ML @ 250 mls/hr IV.SIG Q12H [facility] Rx#:[id number] Keppra Inj 500 MG In NS Inj 100 105 / 105 ML @ 400 mls/hr IV.SIG Q12H [facility] Rx#:[id number] Oral 0 / 0 Tube Feeding 199 / 199 253 / 253 Tube Irrigant 180 / 180 150 / 150 Water Bolus Amount 200 / 200 Output: Stool 1 / 1 Urine Amount (Catheter) 1250 / 1250 1450 / 1450 Indwelling Urethral Catheter 1250 / 1250 1450 / 1450 Wound Drainage 5 / 5 5 / 5 Head 5 / 5 Other: Date of Last Bowel Movement 03/24/18 03/24/18 # Bowel Movements 0 # Incontinent Bowel Movements 1 1 Result Diagrams: 03/25/18 04:15 03/25/18 04:15 Objective Remarks: GENERAL: Under nourished, -Gabonese male with temporal muscle wasting. Intubated off all sedation SKIN: Warm and dry. HEAD: Normocephalic. Circumferential craniotomy dressing in place, drain with sanguinous output EYES: Pupils 4 mm and reactive bilaterally. No scleral icterus. No injection or drainage. ENT: No nasal bleeding or discharge. Mucous membranes pink and moist, very poor dentition. NECK: Trachea midline. Orotracheal intubated. CARDIOVASCULAR: Regular rhythm, rate in 80s, sinus on monitor. No murmurs rubs or gallops. No JVD RESPIRATORY: Clear to auscultation. Breath sounds equal bilaterally. White thick ETT secretions GASTROINTESTINAL: Abdomen soft, non-tender, nondistended. Bowel sounds present. No guarding MUSCULOSKELETAL: Extremities without clubbing, cyanosis, or edema. Warm, well- perfused NEUROLOGICAL: Left facial droop. RAJANI follows commands on right upper and lower extremity more briskly, nods head to questions. Flexor response to deep noxious stimuli of left lower extremity. Assessment and Plan - Problem List (1) Traumatic brain injury Code(s): S06.9X9A - Unspecified intracranial injury with loss of consciousness of unspecified duration, initial encounter Status: Acute (2) Dysphagia Code(s): R13.10 - Dysphagia, unspecified Status: Acute - Assessment and Plan Plan: Assessment and Plan NEURO: Right frontal IPH 53.3 cm. SAH bilat frontal lobes, right parietal, temporal. Right frontotemporal SDH Worsening midline shift right to left 2.1 cm, status post emergency craniectomy for decompression s/p Fall, ?syncope Daily alcohol use Cocaine abuse s/p Right frontotemporal parietal decompressive craniectomy and Duroplasty by Dr. Chacko. Postop imaging per Dr. Chacko CT 03/21: significant worsening of the [id number] midline shift frontal region , now measuring 2.1 cm, decreasing density of r frontal hematoma. CT 03/08 with evolution of hemorrhage, vasogenic edema with increased midline shift, 2.[address] 03/15 Evolving r frontal lobe IPH with cerebral edema and leftward midline shift 1.6. Minimal left frontal and parietal SAH without mass effect. Continuing mannitol 25 gram IV q6, 3% saline target sodium of 150-155, holding as Na 150 EEG mild encephalopathy, no seizures. Cardene to maintain systolic blood pressure less than 140, Keppra 500 mg IV every 12 hours CTA brain and neck 03/03/18 no vascular abnormality, CT C-spine -negative for acute injury Tylenol as needed for temp >100.4 Dr. Dolan is the neurosurgeon following, now Dr. Chacko is covering MVI/Thiamine/folic acid supplementation IV Monitor for evidence of alcohol withdrawal. RESP: Acute respiratory failure secondary to failure to protect airway Tobacco abuse Elevated carboxyhemoglobin level consistent with history of smoking MRSA PRVC/AC with daily CPAP More awake today but increased thick secretions and questionable airway protection prevents extubation May need tracheostomy Give 1 dose of Decadron 8 mg IV 1 CV: Monitor HR and BP keep MAP>65mmHg Hydralazine 25mg Q8, Norvasc 10 daily-hold to keep CPP above 60 Cardene to maintain SBP <140 as per above. Labetalol prn. 3% saline at 30 ml per hour to keep NA 150-155 GI: Enteral feeds with goal rate 40ml/hr, monitor closely for residuals. FEN/RENAL: Monitor renal function, I/O's, electrolyte replacement protocol. ID: Monitor for signs and symptoms of infection. Repeat sputum culture-MRSA, staph aureus Vancomycin started yesterday, add Rocephin 2 g IV every 24 HEME: Monitor CBC ENDO: Euglycemic. Monitor bedside glucose every 6 hours. PROPH: SCDs and FADY for DVT prophylaxis. Pharmacologic DVT prophylaxis is contraindicated due to intracerebral hemorrhage. Famotidine for stress ulcer prophylaxis Full code status CCT 32 Overall impression: Patient continues to be critical, CT scan of the head with worsening midline shift in the frontal region now 2.1 cm. s/p Right frontotemporal parietal decompressive craniectomy and Duroplasty. Neuro status improved but currently complicated by MRSA pneumonia and increased secretions preventing extubation. May need tracheostomy Code Status: Full Discussed Condition With: Dr. Chacko (1) Traumatic brain injury Qualifiers: Encounter type: subsequent encounter
[2018-03-25] MEDS: Sennosides Liq 8.8 MG/5 ML UDC NG/OG SCH ×2 (08:18→21:17)
[2018-03-25] MEDS: Folic Acid 1 MG Tablet PO SCH (08:18)
[2018-03-25] MEDS: Docusate Sodium Liq 100 MG/10 ML UDC NG/OG SCH ×2 (08:18→21:17)
[2018-03-25] MEDS: Polyethylene Glycol 3350 17 GM Packet NG/OG SCH ×2 (08:19→21:17)
[2018-03-25] MEDS: Vancomycin Inj 1,250 MG in Sodium Chlor 0.9% Inj 250 ML IV.SIG SCH ×2 (08:20→21:24)
[2018-03-25] MEDS: amLODIPine 10 MG Tablet NG/OG SCH (08:21)
[2018-03-25] MEDS: Senna/Docusate Sodium 8.6/50 MG Tablet PO SCH ×2 (08:21→21:17)
[2018-03-25] MEDS: Sodium Chloride 23.4% Inj 188 MEQ in Sod Chloride 0.9% Inj 1,000 ML IV.CONT SCH (08:21)
[2018-03-25] MEDS: Chlorhexidine 0.12% Oral Kit 15 ML UDC OROPHARYNG SCH ×2 (08:21→21:19)
--- NOTE | 2018-03-25 10:08 | P.PNNS ---
Subjective Interval history: Pt intubated on CPAP. He opens eyes to voice. Follows some simple commands on right side. Left dense hemiparesis. Physical Exam Vital signs: Vital Signs 03/24/18 10:19 03/24/18 12:00 03/24/18 14:00 Temperature 98.3 F Pulse Rate 93 H 96 H Respiratory Rate 10 L 16 Blood Pressure 124/63 Pulse Oximetry 99 100 03/24/18 16:00 03/24/18 16:02 03/24/18 18:00 Temperature 98.6 F Pulse Rate 87 96 H Respiratory Rate 14 25 H Blood Pressure 123/57 L Pulse Oximetry 100 100 03/24/18 20:00 03/24/18 20:09 03/24/18 22:00 Temperature 99.0 F Pulse Rate 104 H 100 H Respiratory Rate 18 22 Blood Pressure 123/74 Pulse Oximetry 97 100 03/24/18 23:44 03/25/18 00:00 03/25/18 02:00 Temperature 98.7 F Pulse Rate 92 H 95 H Respiratory Rate 18 20 Blood Pressure 141/86 H Pulse Oximetry 100 100 03/25/18 03:29 03/25/18 04:00 03/25/18 06:00 Temperature 98.4 F Pulse Rate 92 H 98 H Respiratory Rate 15 17 Blood Pressure 136/83 Pulse Oximetry 100 100 03/25/18 08:16 Temperature Pulse Rate Respiratory Rate 11 L Blood Pressure Pulse Oximetry 100 Intake & Output 03/24/18 03/25/18 03/25/18 18:59 06:59 18:59 Intake Total 684 / 684 665.5 / 665.5 Output Total 1256 / 1256 1455 / 1455 Balance -572 / -572 -789.5 / -789.5 Weight 61 kg Intake: IV 105 / 105 262.5 / 262.5 Vancomycin Inj 1,250 MG In NS 262.5 / 262.5 Inj 250 ML @ 250 mls/hr IV.SIG Q12H [facility] Rx#:[id number] Keppra Inj 500 MG In NS Inj 100 105 / 105 ML @ 400 mls/hr IV.SIG Q12H [facility] Rx#:[id number] Oral 0 / 0 Tube Feeding 199 / 199 253 / 253 Tube Irrigant 180 / 180 150 / 150 Water Bolus Amount 200 / 200 Output: Stool 1 / 1 Urine Amount (Catheter) 1250 / 1250 1450 / 1450 Indwelling Urethral Catheter 1250 / 1250 1450 / 1450 Wound Drainage Head Other: Date of Last Bowel Movement 03/24/18 03/24/18 # Bowel Movements 0 # Incontinent Bowel Movements 1 1 - Constitutional no acute distress, thin - Routine HEENT Exam Head: Absent: normocephalic (Right craniectomy site clean and dry without signs of infection.) Eye: Present: PERRL (3mm bilaterally.). Absent: conjunctival icterus ENT: Absent: mucous membranes moist (Pt with ET tube in place.), nares patent ( NG tube inplace. TFs at 20ml/hr.) - Routine Respiratory Exam Present: patient mechanically ventilated (CPAP), CTA bilaterally - Routine Cardiovascular Exam Present: RRR - Routine Abdominal Exam Present: soft, normoactive bowel sounds. Absent: tenderness, distended - Routine Skin Exam Present: scars (Craniectomy site incision clean and dry without signs of infection. AMIRAH drain in place.). Absent: erythema - Routine Neurological Exam Present: alert, motor deficit (Left dense hemiparesis.). Absent: moving all extremities (Left dense hemiparesis.) - Routine Psychiatric Exam Present: unable to assess - Urinary Catheter Management Indwelling Temp Sensing Catheter Cath placed during this visit: yes, but has since been removed by the nurse Reason for continuing: Hourly intake/output Insertion date: 03/12/18 Insertion time: 05:30 Removal date: 03/14/18 Removal time: 17:00 Indwelling Urethral Catheter Cath placed during this visit: yes, but has since been removed by the nurse Reason for continuing: Hourly intake/output Insertion date: 03/22/18 Insertion time: 17:30 Removal date: 03/14/18 Removal time: 17:00 Assessment and Plan - Assessment (1) Traumatic brain injury Code(s): S06.9X9A - Unspecified intracranial injury with loss of consciousness of unspecified duration, initial encounter Status: Acute Qualifiers: Encounter type: subsequent encounter - Plan Impression: 62 y/o male with increased right intracerebral edema with significant 2 cm midline shift, he underwent right decompressive craniectomy 03/22/18 with placement of ICP monitor by Dr. Chacko, ri'ed 03/23/18 Plan: cont neuro checks cont critical care management Weaning vent, pt on CPAP Continue to advance NG TFs as tolerated. Continue with SCDs. Rehab efforts.
[2018-03-25] MEDS: Labetalol HCl Inj 100 MG/20 ML Vial IV.PUSH PRN (12:47)
[2018-03-25 13:25] LABS: Sodium 147 meq/L (136-145)
--- NOTE | 2018-03-25 15:15 | P.DIET ---
Nutritional Evaluation Type of nutrition evaluation: initial Nutrition consult regarding: Tube Feeding Objective - Diagnosis ICH, SAH, Syncope - Objective % IBW: 87 (IBW = 166#) Body Weight Used for Calculations: Actual (65.4 kg) Energy Needs - Lower Range (kCal/kg): 28 Energy Needs - Upper Range (kCal/kg): 33 Lower Limit kCal/kg (kCals): 1,831 Upper Limit kCal/kg (kCals): 2,158 Lower Limit Protein Factor (Grams per Kg): 1.2 Upper Limit Protein Factor (Grams per Kg): 1.5 Lower Protein Needs (Protein): 79 Upper Protein Needs (Protein): 98 Dietitian Reviewed in Medical Record: Curent medications, Intake & Output, Labs , Medical history, Tube feeding Diet Order: NPO Speech Therapy Recommendations: Yes Objective Comments: PMH: COPD, Asthma, tobacco abuse, daily ETOH use 03/22 R fromtotemporal parietal decompressive crani Feeding - Current Tube Feeding Tube Feeding Product: Jevity 1.5 (ON HOLD) Assessment Assessment: Pt remains at high nutrition risk 2' to his need for TFing. He is s/p R frontotemporal parietal decompressive crani for worsening midline shift. He is intubated on CPAP and TF is on hold. He was only receiving 20 mls/hr as ordered prior to TF being on hold. To meet needs with Jevity 1.5, recommend a goal rate of 55 mls/hr to provide 1980 kcals, 84 gms protein and 1003 mls of free water. Labs, wts and clinical course reviewed. CBW = 61.0 kg which indicates wt loss. Recommendations: TF Jevity 1.5 with goal rate 55 ml/hr Dietitian to Monitor: Lab values, Intake & Output, Tube feeding tolerance, Weight change, Residuals, Medical course
[2018-03-25 19:10] LABS: Sodium 146 meq/L (136-145)
[2018-03-25] MEDS: Sod Chloride 0.9% Inj 1,000 ML IV.CONT SCH ×4 (19:36→19:45)
[2018-03-26] MEDS: Oral Hygiene Kit OROPHARYNG SCH ×4 (00:15→16:48)
[2018-03-26] MEDS: hydrALAZINE 25 MG Tablet PO SCH ×3 (04:14→16:48)
--- NOTE | 2018-03-26 04:34 | XR ---
EXAM DATE: 03/26/2018 4:26 AM EDT AGE/SEX: 62 years / Male INDICATIONS: Respiratory disease. CLINICAL DATA: This is the patient's subsequent encounter. Patient reports that signs and symptoms h ave been present for 3 weeks and indicates a pain score of Nonresponsive. MEDICAL/SURGICAL HISTORY: . Chronic obstructive pulmonary disease. Asthma. None. COMPARISON: [facility] – [place] 1[place] SINGLE AP, 03/25/2018. . FINDINGS: Single AP view of the chest. Endotracheal tube and nasogastric tube no longer seen. Left subclavian c entral venous catheter remains in place. Lungs are clear. Cardiomediastinal silhouette within normal limits. No evidence of pleural effusion or pneumothorax. CONCLUSION: Endotracheal tube and nasogastric tube no longer seen. No acute cardiopulmonary disease identified. Electronically signed by: Ray Ramey MD 03/26/2018 4:33 AM EDT
[2018-03-26 05:40] LABS: Hematocrit 28.4 % (39.0-51.0); Hemoglobin 9.4 gm/dL (13.0-17.0); Mean Platelet Volume 7.4 fL (7.0-11.0); Platelet Count 311 th/mm3 (150-450); Red Blood Count 3.02 mil/mm3 (4.50-5.90); Red Cell Distribution Width 12.8 % (11.6-17.2); White Blood Count 9.3 th/mm3 (4.0-11.0)
[2018-03-26 05:59] LABS: Albumin 2.2 g/dL (3.4-5.0); Anion Gap 11 meq/L (5-15); Aspartate Aminotransferase 34 U/L (15-37); Blood Urea Nitrogen 11 mg/dL (7-18); Calcium 8.4 mg/dL (8.5-10.1); Carbon Dioxide 27.4 meq/L (21.0-32.0); Chloride 107 meq/L (98-107); Glomerular Filtration Rate Greater Than 89 mL/min (>89); Glucose,Random 97 mg/dL (74-106); Magnesium 2.4 mg/dL (1.5-2.5); Potassium 3.7 meq/L (3.5-5.1); Sodium 145 meq/L (136-145)
[2018-03-26 06:00] LABS: Alanine Aminotransferase 12 U/L (12-78)
[2018-03-26 06:02] LABS: Alkaline Phosphatase 59 U/L (45-117); Total Protein 7.7 g/dL (6.4-8.2)
[2018-03-26] MEDS: Carboxymethylcellulose 0.5% Opth Drops 15 ML Bottle EACH EYE SCH ×2 (06:33→13:17)
[2018-03-26] MEDS: Sod Chloride 0.9% Inj 1,000 ML IV.CONT SCH (06:38)
[2018-03-26] MEDS ORDERED: Pharmacy Ordered Lab Info OTHER ONE (08:45)
[2018-03-26] MEDS: Chlorhexidine 0.12% Oral Kit 15 ML UDC OROPHARYNG SCH ×2 (08:50→20:31)
[2018-03-26] MEDS: Polyethylene Glycol 3350 17 GM Packet NG/OG SCH ×2 (08:51→20:31)
[2018-03-26] MEDS: Senna/Docusate Sodium 8.6/50 MG Tablet PO SCH ×2 (08:51→20:32)
[2018-03-26] MEDS: amLODIPine 10 MG Tablet NG/OG SCH (08:51)
[2018-03-26] MEDS: Docusate Sodium Liq 100 MG/10 ML UDC NG/OG SCH ×2 (08:51→20:31)
[2018-03-26] MEDS: Folic Acid 1 MG Tablet PO SCH (08:51)
[2018-03-26] MEDS: Sennosides Liq 8.8 MG/5 ML UDC NG/OG SCH ×2 (08:52→20:32)
[2018-03-26] MEDS: Sodium Chloride 23.4% Inj 188 MEQ in Sod Chloride 0.9% Inj 1,000 ML IV.CONT SCH (09:19)
[2018-03-26] MEDS: Vancomycin Inj 1,250 MG in Sodium Chlor 0.9% Inj 250 ML IV.SIG SCH (10:15)
--- NOTE | 2018-03-26 11:03 | P.PNNS ---
Subjective Interval history: Pt awake and alert. He follows simple commands. He is intubated. Dense left hemiparesis/plegia. Physical Exam Vital signs: Vital Signs 03/25/18 12:00 03/25/18 14:00 03/25/18 16:00 Temperature 98.2 F 97.6 F Pulse Rate 89 89 89 Respiratory Rate 26 H 22 Blood Pressure 140/69 135/84 Pulse Oximetry 100 100 03/25/18 18:00 03/25/18 20:00 03/25/18 22:00 Temperature 98.3 F Pulse Rate 89 91 H 84 Respiratory Rate 24 Blood Pressure 146/71 H Pulse Oximetry 97 03/26/18 00:00 03/26/18 02:00 03/26/18 04:00 Temperature 98.3 F 97.7 F Pulse Rate 90 88 88 Respiratory Rate 28 H 25 H Blood Pressure 140/83 145/88 H Pulse Oximetry 100 99 03/26/18 06:00 03/26/18 08:00 03/26/18 09:29 Temperature 97.8 F Pulse Rate 94 H 89 Respiratory Rate 24 Blood Pressure 135/85 Pulse Oximetry 97 96 Intake & Output 03/25/18 03/26/18 03/26/18 18:59 06:59 18:59 Intake Total 403 / 403 1335.0 / 1335.0 Output Total 1710 / 1710 1400 / 1400 Balance -1307 / -1307 -65.0 / -65.0 Weight 56.1 kg Intake: IV 1335.0 / 1335.0 Sodium Chloride 3% Inj 500 ML @ 500 / 500 30 mls/hr IV.SIG Q16H PEDRO LUIS Rx#: [id number] Vancomycin Inj 1,250 MG In NS 525.0 / 525.0 Inj 250 ML @ 250 mls/hr IV.SIG Q12H PEDRO LUIS Rx#:[id number] Rocephin Inj 2,000 MG In NS Inj 100 / 100 100 ML @ 200 mls/hr IV.SIG Q24H PEDRO LUIS Rx#:[id number] Keppra Inj 500 MG In NS Inj 100 210 / 210 ML @ 400 mls/hr IV.SIG Q12H PEDRO LUIS Rx#:[id number] Tube Feeding 253 / 253 Tube Irrigant 150 / 150 Output: Urine Amount (Catheter) 1650 / 1650 1400 / 1400 Condom 1400 / 1400 Indwelling Urethral Catheter 1650 / 1650 Wound Drainage 60 / 60 Head 60 / 60 Other: Date of Last Bowel Movement 03/24/18 03/24/18 03/24/18 # Incontinent Bowel Movements 1 - Constitutional no acute distress, thin - Routine HEENT Exam Head: Absent: normocephalic (right craniectomy incision clean and dry without any signs of infection.) Eye: Present: PERRL. Absent: conjunctival icterus ENT: Present: oropharynx clear (Intubated.) - Routine Neck Exam Present: trachea midline - Routine Respiratory Exam Present: patient mechanically ventilated, CTA bilaterally. Absent: respiratory distress, rhonchi, wheezes - Routine Cardiovascular Exam Present: RRR, S1, S2. Absent: murmur - Routine Abdominal Exam Present: soft, normoactive bowel sounds. Absent: tenderness, distended - Routine Skin Exam Present: scars (Right craniectomy incision clean and dry without signs of infection or complication.). Absent: cyanosis, erythema - Routine Neurological Exam Present: alert, hemineglect (left sided.). Absent: moving all extremities ( Left dense hemiparesis/plegia.) - Detailed Neurological Exam: Coma Scale Eye Opening: Spontaneous Verbal Response: None Motor Response: Obey commands (right side.) Sylva Coma Scale Total: 11 - Routine Psychiatric Exam Present: unable to assess - Urinary Catheter Management Indwelling Temp Sensing Catheter Cath placed during this visit: yes, but has since been removed by the nurse Reason for continuing: Not indwelling catheter Insertion date: 03/12/18 Insertion time: 05:30 Removal date: 03/14/18 Removal time: 17:00 Indwelling Urethral Catheter Cath placed during this visit: yes, but has since been removed by the nurse Reason for continuing: Decision to DC catheter Insertion date: 03/22/18 Insertion time: 17:30 Removal date: 03/25/18 Removal time: 18:00 Condom Cath placed during this visit: no Reason for continuing: Not indwelling catheter Assessment and Plan - Assessment (1) Traumatic brain injury Code(s): S06.9X9A - Unspecified intracranial injury with loss of consciousness of unspecified duration, initial encounter Status: Acute Qualifiers: Encounter type: subsequent encounter - Plan Impression: 62 y/o male with increased right intracerebral edema with significant 2 cm midline shift, he underwent right decompressive craniectomy 03/22/18 with placement of ICP monitor by Dr. Chacko, wy'ed 03/23/18 Plan: cont neuro checks cont critical care management Weaning vent Continue to advance NG TFs as tolerated. Continue with SCDs. Rehab efforts.
--- NOTE | 2018-03-26 13:11 | P.PNCC ---
Subjective Subjective Remarks/Hospital Course: 03/03: 62-year-old -[place] male with past medical history of COPD/asthma , tobacco abuse, daily alcohol use who presented to [facility] emergency department after a fall. Patient told EM provider that he was mopping the floor with some chemicals when he felt lightheaded and fell hitting the back of his head. Patient complained of vertigo. CT brain showed right frontal intraparenchymal hemorrhage 5 x 3.3 cm with subarachnoid hemorrhage bilateral frontal lobes, right parietal and right temporal lobes. There is a component of acute subdural hematoma along the right frontoparietal lobe that is 6 mm. There is 4 mm of subfalcine herniation to the left. He is not on anticoagulation but takes aspirin daily. He complained of headache and has received Dilaudid 0.2 mg IV in the ED. BP went up to 183/99 and he was started on Cardene and BP now 144/74 on 5mg/hr. He denied nausea, vomiting, cough, fevers or chills. CTA brain/neck demonstrate no vascular abnormality. He has been admitted by Dr. Dolan and [facility] has been consulted to assist in medical management of ICH as well as workup for syncope. He said that his son had brought him to the emergency department for evaluation however upon evaluation in the ED the son was not present and there was no phone number available for him. 03/04: Resting in bed. Drowsy, arousable. Not following commands. 03/05: Resting in bed. Drowsy, easily arousable. Squeezes with both hands on command. 03/06: More awake, following commands. Dysarthric. Left-sided weakness persists. 03/07 Patient is awake on room air oxygen when seen. Follows commands. 03/08 Reportedly was cooperative and conversant with PT yesterday, oriented x3. Today will follow commands but is lethargic, no comprehensible words. No witnessed seizure. Subjective: 03/09 CT brain yesterday with evolving R frontal lobe hematoma, vasogenic edema with 2.2 cm right to left midline shift. EEG mild encephalopathy, no seizure. He continues to protect his airway, follows commands on the right. 03/09 CT brain yesterday with evolving R frontal lobe hematoma, vasogenic edema with 2.2 cm right to left midline shift. EEG mild encephalopathy, no seizure. He continues to protect his airway, follows commands on the right. 03/10: Awake and alert. Follows commands on the right. Protecting airway currently. On 3% saline. 03/11:Drowsy, easily arousable at the time of my evaluation this morning, moves right upper and lower extremity. speech unclear (mumbles). 03/12: Intubated yesterday secondary to altered mental status and copious thick secretions. Tube feeds of been resumed. Bowel regimen resume. SUBJECTIVE: 03/13: Afebrile. Lessening sedation. Off will follow commands right upper extremity. Withdraws bilateral x-rays. Flaccid left upper extremity. Tolerating tube feeds. Disimpacted yesterday. Not sufficiently abdomen still distended will check CT abdomen/pelvis with oral contrast today 03/14: Had small BM, abdomen not distended. Will hold pain meds to encourage bowel activity. 03/15: Hold extubation due to hematoma mass-effect and episodic apnea spells. He does tolerate CPAP trials otherwise. 03/16: He does reasonably well on spontaneous breathing trials with the exception of periodic brief episodes of apnea. Head CT yesterday reveals continued mass-effect from the right frontal lobe hematoma. Serum osmolality has been greater than 320 and it would appear that we have maximized efforts to reduce cerebral edema. We will attempt extubation when neurosurgical service feels it is appropriate. 03/17: Osmolality is acceptable. Tolerate CPAP trials but major concern is whether he can protect his airway or not following extubation. Will discuss with neurosurgery the appropriateness of trial extubation versus proceeding directly to tracheostomy. 03/18: Serum osmolality remains well concentrated. We will attempt trial extubation today. 03/19: On spontaneous breathing trials his tidal volumes are only about 200 cc and he does not have the strength to cough. In the context of his copious secretions and minimal respiratory effort he will be a high risk for aspiration and pneumonia. We have made numerous attempts to contact suppose it family members without success. We continue to try to update family. He will need a tracheostomy. 03/20: Spontaneous breathing trials continued to be sporadically successful. It is doubtful he will protect his airway. We are looking for family to consent for a tracheostomy. 03/21: Wakes up easily follows commands on the right side, still appears lethargic and weak. Low tidal volumes on spontaneous breathing trials. 03/22: Patient remains intubated, copious amount of oral and ET tube secretions. He follows commands on right side but remains lethargic. There is interval worsening of [id number] midline shift in the frontal region, now measuring 2.1 cm. Restart hyperosmolar therapy with 2% saline at 42 mL/h and frequent neuro check and sodium check. Continue mannitol will discuss with Dr. Chacko 03/23: Patient underwent Right frontotemporal parietal decompressive craniectomy and Duroplasty by Dr. Chacko on 03/22/18 for worsening midline shift. Postop ICP well controlled. Receiving 3% saline and mannitol. On lightening sedation able to follow commands on the right side 03/24: Patient is more awake today following commands briskly on the right side. Remains hemiplegic on the left side. On sedation hold currently tolerating CPAP. Sodium is 156 and 3% saline was discontinued. Neurosurgery following okay to wean sedation and ventilator 03/25: Remains awake follows commands on the right side. Still has a large amount of ET tube secretions white thick, started on vancomycin yesterday for MRSA and sputum. Unclear airway protection prevents extubation 03/26: Extubated yesterday. Improving respiratory owens. Able to state his name, mentation and alertness improving. Able to cough up secretions. Need continued PT/OT Objective Vital Signs / I&O: Vital Signs 03/25/18 14:00 03/25/18 16:00 03/25/18 18:00 Temperature 97.6 F Pulse Rate 89 89 89 Respiratory Rate 22 Blood Pressure 135/84 Pulse Oximetry 100 03/25/18 20:00 03/25/18 22:00 03/26/18 00:00 Temperature 98.3 F 98.3 F Pulse Rate 91 H 84 90 Respiratory Rate 24 28 H Blood Pressure 146/71 H 140/83 Pulse Oximetry 97 100 03/26/18 02:00 03/26/18 04:00 03/26/18 06:00 Temperature 97.7 F Pulse Rate 88 88 94 H Respiratory Rate 25 H Blood Pressure 145/88 H Pulse Oximetry 99 03/26/18 08:00 03/26/18 09:29 03/26/18 10:00 Temperature 97.8 F Pulse Rate 89 85 Respiratory Rate 24 Blood Pressure 135/85 Pulse Oximetry 97 96 Intake & Output 03/25/18 03/26/18 03/26/18 18:59 06:59 18:59 Intake Total 403 / 403 1335.0 / 1335.0 Output Total 1710 / 1710 1400 / 1400 Balance -1307 / -1307 -65.0 / -65.0 Weight 56.1 kg Intake: IV 1335.0 / 1335.0 Sodium Chloride 3% Inj 500 ML @ 500 / 500 30 mls/hr IV.SIG Q16H PEDRO LUIS Rx#: [id number] Vancomycin Inj 1,250 MG In NS 525.0 / 525.0 Inj 250 ML @ 250 mls/hr IV.SIG Q12H PEDRO LUIS Rx#:[id number] Rocephin Inj 2,000 MG In NS Inj 100 / 100 100 ML @ 200 mls/hr IV.SIG Q24H PEDRO LUIS Rx#:[id number] Keppra Inj 500 MG In NS Inj 100 210 / 210 ML @ 400 mls/hr IV.SIG Q12H PEDRO LUIS Rx#:[id number] Tube Feeding 253 / 253 Tube Irrigant 150 / 150 Output: Urine Amount (Catheter) 1650 / 1650 1400 / 1400 Condom 1400 / 1400 Indwelling Urethral Catheter 1650 / 1650 Wound Drainage 60 / 60 Head 60 / 60 Other: Date of Last Bowel Movement 03/24/18 03/24/18 03/24/18 # Incontinent Bowel Movements 1 Result Diagrams: 03/26/18 04:45 03/26/18 04:45 Objective Remarks: GENERAL: Under nourished, -[place] male with temporal muscle wasting. SKIN: Warm and dry. HEAD: Normocephalic. Circumferential craniotomy dressing in place, drain with sanguinous output EYES: Pupils 4 mm and reactive bilaterally. No scleral icterus. No injection or drainage. ENT: No nasal bleeding or discharge. Mucous membranes pink and moist, very poor dentition. NECK: Trachea midline. Orotracheal intubated. CARDIOVASCULAR: Regular rhythm, rate in 80s, sinus on monitor. No murmurs rubs or gallops. No JVD RESPIRATORY: Clear to auscultation. Breath sounds equal bilaterally. GASTROINTESTINAL: Abdomen soft, non-tender, nondistended. Bowel sounds present. No guarding MUSCULOSKELETAL: Extremities without clubbing, cyanosis, or edema. Warm, well- perfused NEUROLOGICAL: Mild left facial droop. RAJANI follows commands on right upper and lower extremity, nods head to questions, weakly follows on left lower extremity also. Able to state his name Assessment and Plan - Problem List (1) Traumatic brain injury Code(s): S06.9X9A - Unspecified intracranial injury with loss of consciousness of unspecified duration, initial encounter Status: Acute (2) Dysphagia Code(s): R13.10 - Dysphagia, unspecified Status: Acute - Assessment and Plan Plan: Assessment and Plan NEURO: Right frontal IPH 53.3 cm. SAH bilat frontal lobes, right parietal, temporal. Right frontotemporal SDH Worsening midline shift right to left 2.1 cm, status post emergency craniectomy for decompression s/p Fall, ?syncope Daily alcohol use/Cocaine abuse s/p Right frontotemporal parietal decompressive craniectomy and Duroplasty by Dr. Chacko. Postop imaging per Dr. Chacko CT 03/21: significant worsening of the [id number] midline shift frontal region , measuring 2.1 cm, decreasing density of right frontal hematoma. CT 03/08 with evolution of hemorrhage, vasogenic edema with increased midline shift, 2.[address] 03/15 Evolving r frontal lobe IPH with cerebral edema and leftward midline shift 1.6. Minimal left frontal and parietal SAH without mass effect. Mannitol DC'd today by neurosurgery on 03/26/2018, 3% saline target sodium of 150 -155, will reduce target to normal range and DC EEG mild encephalopathy, no seizures. Keppra 500 mg IV every 12 hours Cardene to maintain systolic blood pressure less than 140, CTA brain and neck 03/03/18 no vascular abnormality, CT C-spine -negative for acute injury Tylenol as needed for temp >100.4 Dr. Dolan is the neurosurgeon following MVI/Thiamine/folic acid supplementation IV Monitor for evidence of alcohol withdrawal. RESP: Acute respiratory failure secondary to failure to protect airway-resolved extubated MRSA pneumonia Tobacco abuse Elevated carboxyhemoglobin level consistent with history of smoking Extubated 03/25/2018, tolerating well Continue DuoNeb scheduled and as needed Aggressive pulmonary toilet, EZPAP CV: Monitor HR and BP keep MAP>65mmHg Hydralazine 25mg Q8, Norvasc 10 daily Cardene to maintain SBP <140 as per above. Labetalol prn. GI: Speech following, failed yesterday, re eval today. If failing again needs NG tube for medication and feeding FEN/RENAL: Monitor renal function, I/O's, electrolyte replacement protocol. ID: Repeat sputum culture-MRSA, staph aureus Vancomycin started 03/24, Rocephin 2 g IV every 24 started 03/25 HEME: Monitor CBC ENDO: Euglycemic. Monitor bedside glucose every 6 hours. PROPH: SCDs and FADY for DVT prophylaxis. Pharmacologic DVT prophylaxis is contraindicated due to intracerebral hemorrhage. Famotidine for stress ulcer prophylaxis Full code status Level 3 Overall impression: Patient continues to be critical, but slowly improving. s/ p Right frontotemporal parietal decompressive craniectomy and Duroplasty. Neuro status improved but currently complicated by MRSA pneumonia. Code Status: Full (1) Traumatic brain injury Qualifiers: Encounter type: subsequent encounter
[2018-03-26] MEDS: Vancomycin Inj 1,000 MG in Sodium Chlor 0.9% Inj 250 ML IV.SIG SCH (17:45)
[2018-03-27] MEDS: Carboxymethylcellulose 0.5% Opth Drops 15 ML Bottle EACH EYE SCH ×4 (00:46→23:10)
[2018-03-27] MEDS: hydrALAZINE 25 MG Tablet PO SCH ×5 (00:47→22:23)
[2018-03-27] MEDS: Oral Hygiene Kit OROPHARYNG SCH ×4 (00:47→16:19)
[2018-03-27] MEDS: Vancomycin Inj 1,000 MG in Sodium Chlor 0.9% Inj 250 ML IV.SIG SCH ×3 (01:11→18:03)
[2018-03-27 05:35] LABS: Glomerular Filtration Rate Greater Than 89 mL/min (>89)
[2018-03-27] MEDS: Chlorhexidine 0.12% Oral Kit 15 ML UDC OROPHARYNG SCH ×2 (07:54→23:08)
[2018-03-27] MEDS: Docusate Sodium Liq 100 MG/10 ML UDC NG/OG SCH ×2 (08:54→23:09)
[2018-03-27] MEDS: Polyethylene Glycol 3350 17 GM Packet NG/OG SCH ×2 (08:55→23:09)
[2018-03-27] MEDS: amLODIPine 10 MG Tablet NG/OG SCH (08:55)
[2018-03-27] MEDS: Folic Acid 1 MG Tablet PO SCH (08:55)
[2018-03-27] MEDS: Senna/Docusate Sodium 8.6/50 MG Tablet PO SCH ×2 (08:55→23:10)
[2018-03-27] MEDS: Sennosides Liq 8.8 MG/5 ML UDC NG/OG SCH ×2 (08:55→23:10)
[2018-03-27] MEDS ORDERED: Lidocaine 1%/Epinephrine 1:100,000 Inj 20 ML Vial INFILTRATN ONE (09:06)
[2018-03-27] MEDS ORDERED: Lidocaine 1%/Epinephrine 1:100,000 Inj 50 ML Vial INFILTRATN ONE (09:45)
--- NOTE | 2018-03-27 10:27 | P.PNNS ---
Subjective Interval history: Pt awake and more alert today. Answers some questions yes/no. Complains of headache right side. No n/v. Follows simple commands. left hemiparesis. Physical Exam Vital signs: Vital Signs 03/26/18 12:00 03/26/18 14:00 03/26/18 15:56 Temperature 97.8 F Pulse Rate 84 86 100 H Respiratory Rate 25 H 20 Blood Pressure 138/87 Pulse Oximetry 95 03/26/18 16:00 03/26/18 18:00 03/26/18 20:00 Temperature 97.8 F 97.8 F Pulse Rate 98 H 86 93 H Respiratory Rate 25 H 14 Blood Pressure 131/87 135/81 Pulse Oximetry 100 98 03/26/18 20:19 03/26/18 20:20 03/26/18 22:00 Temperature Pulse Rate 90 83 Respiratory Rate 16 Blood Pressure Pulse Oximetry 100 03/27/18 00:00 03/27/18 02:00 03/27/18 03:29 Temperature 98.1 F Pulse Rate 94 H 89 75 Respiratory Rate 26 H 16 Blood Pressure 142/86 H Pulse Oximetry 100 03/27/18 04:00 03/27/18 06:00 03/27/18 07:51 Temperature 98.4 F Pulse Rate 89 76 77 Respiratory Rate 16 16 Blood Pressure 145/86 H Pulse Oximetry 99 Intake & Output 03/26/18 03/27/18 03/27/18 18:59 06:59 18:59 Intake Total 467.5 / 467.5 605 / 605 Output Total 1300 / 1300 1663 / 1663 Balance -832.5 / -832.5 -1058 / -1058 Weight 56.5 kg Intake: IV 467.5 / 467.5 605 / 605 Vancomycin Inj 1,000 MG In NS 500 / 500 Inj 250 ML @ 250 mls/hr IV.SIG Q8H PEDRO LUIS Rx#:[id number] Vancomycin Inj 1,250 MG In NS 262.5 / 262.5 Inj 250 ML @ 250 mls/hr IV.SIG Q12H PEDRO LUIS Rx#:[id number] Rocephin Inj 2,000 MG In NS Inj 100 / 100 100 ML @ 200 mls/hr IV.SIG Q24H PEDRO LUIS Rx#:[id number] Keppra Inj 500 MG In NS Inj 100 105 / 105 105 / 105 ML @ 400 mls/hr IV.SIG Q12H PEDRO LUIS Rx#:[id number] Oral 0 / 0 Output: Stool 3 / 3 Urine Amount (Catheter) 1300 / 1300 1400 / 1400 Condom 1300 / 1300 1400 / 1400 Gastric Drainage 200 / 200 Right Nare Nasogastric Tube 200 / 200 Wound Drainage 60 / 60 Head 60 / 60 Other: Date of Last Bowel Movement 03/24/18 03/27/18 # Bowel Movements 0 # Incontinent Bowel Movements 1 - Constitutional no acute distress, thin, cooperative, somnolent - Routine HEENT Exam Head: Absent: atraumatic (Right decompressive craniectomy site soft.) Eye: Present: PERRL (Pupils 3mm bilaterally reactive bilaterally.) - Routine Respiratory Exam Present: CTA bilaterally. Absent: patient mechanically ventilated, respiratory distress, rhonchi, wheezes - Routine Cardiovascular Exam Present: RRR, S1, S2. Absent: murmur - Routine Abdominal Exam Present: soft, normoactive bowel sounds. Absent: tenderness - Routine Extremities Exam Absent: cyanosis - Routine Skin Exam Present: scars (Craniectomy incision is clean and dry without signs of infection.). Absent: cyanosis, erythema - Routine Neurological Exam Present: alert, motor deficit (left hemiparesis. Some slight movement in fingers on left and left foot.) - Detailed Neurological Exam: Coma Scale Eye Opening: Spontaneous Verbal Response: Words Motor Response: Obey commands Alfonso Coma Scale Total: 13 - Routine Psychiatric Exam Present: cooperative, unable to assess - Urinary Catheter Management Indwelling Temp Sensing Catheter Cath placed during this visit: yes, but has since been removed by the nurse Reason for continuing: Not indwelling catheter Insertion date: 03/12/18 Insertion time: 05:30 Removal date: 03/25/18 Removal time: 18:00 Indwelling Urethral Catheter Cath placed during this visit: yes, but has since been removed by the nurse Reason for continuing: Decision to DC catheter Insertion date: 03/22/18 Insertion time: 17:30 Removal date: 03/25/18 Removal time: 18:00 Condom Cath placed during this visit: yes, but has since been removed by the nurse Reason for continuing: Not indwelling catheter Removal date: 03/25/18 Removal time: 18:00 Assessment and Plan - Assessment (1) Traumatic brain injury Code(s): S06.9X9A - Unspecified intracranial injury with loss of consciousness of unspecified duration, initial encounter Status: Acute Qualifiers: Encounter type: subsequent encounter - Plan Impression: 62 y/o male with increased right intracerebral edema with significant 2 cm midline shift, he underwent right decompressive craniectomy 03/22/18 with [facility] Plan: cont neuro checks cont critical care management Weaning vent Continue to advance NG TFs as tolerated. Continue with SCDs. Rehab efforts. D/C AMIRAH drain.
--- NOTE | 2018-03-27 11:04 | P.PNCC ---
Subjective Subjective Remarks/Hospital Course: 03/03: 62-year-old -Martiniquais male with past medical history of COPD/asthma , tobacco abuse, daily alcohol use who presented to [facility] emergency department after a fall. Patient told EM provider that he was mopping the floor with some chemicals when he felt lightheaded and fell hitting the back of his head. Patient complained of vertigo. CT brain showed right frontal intraparenchymal hemorrhage 5 x 3.3 cm with subarachnoid hemorrhage bilateral frontal lobes, right parietal and right temporal lobes. There is a component of acute subdural hematoma along the right frontoparietal lobe that is 6 mm. There is 4 mm of subfalcine herniation to the left. He is not on anticoagulation but takes aspirin daily. He complained of headache and has received Dilaudid 0.2 mg IV in the ED. BP went up to 183/99 and he was started on Cardene and BP now 144/74 on 5mg/hr. He denied nausea, vomiting, cough, fevers or chills. CTA brain/neck demonstrate no vascular abnormality. He has been admitted by Dr. Dolan and [facility] has been consulted to assist in medical management of ICH as well as workup for syncope. He said that his son had brought him to the emergency department for evaluation however upon evaluation in the ED the son was not present and there was no phone number available for him. 03/04: Resting in bed. Drowsy, arousable. Not following commands. 03/05: Resting in bed. Drowsy, easily arousable. Squeezes with both hands on command. 03/06: More awake, following commands. Dysarthric. Left-sided weakness persists. 03/07 Patient is awake on room air oxygen when seen. Follows commands. 03/08 Reportedly was cooperative and conversant with PT yesterday, oriented x3. Today will follow commands but is lethargic, no comprehensible words. No witnessed seizure. Subjective: 03/09 CT brain yesterday with evolving R frontal lobe hematoma, vasogenic edema with 2.2 cm right to left midline shift. EEG mild encephalopathy, no seizure. He continues to protect his airway, follows commands on the right. 03/09 CT brain yesterday with evolving R frontal lobe hematoma, vasogenic edema with 2.2 cm right to left midline shift. EEG mild encephalopathy, no seizure. He continues to protect his airway, follows commands on the right. 03/10: Awake and alert. Follows commands on the right. Protecting airway currently. On 3% saline. 03/11:Drowsy, easily arousable at the time of my evaluation this morning, moves right upper and lower extremity. speech unclear (mumbles). 03/12: Intubated yesterday secondary to altered mental status and copious thick secretions. Tube feeds of been resumed. Bowel regimen resume. SUBJECTIVE: 03/13: Afebrile. Lessening sedation. Off will follow commands right upper extremity. Withdraws bilateral x-rays. Flaccid left upper extremity. Tolerating tube feeds. Disimpacted yesterday. Not sufficiently abdomen still distended will check CT abdomen/pelvis with oral contrast today 03/14: Had small BM, abdomen not distended. Will hold pain meds to encourage bowel activity. 03/15: Hold extubation due to hematoma mass-effect and episodic apnea spells. He does tolerate CPAP trials otherwise. 03/16: He does reasonably well on spontaneous breathing trials with the exception of periodic brief episodes of apnea. Head CT yesterday reveals continued mass-effect from the right frontal lobe hematoma. Serum osmolality has been greater than 320 and it would appear that we have maximized efforts to reduce cerebral edema. We will attempt extubation when neurosurgical service feels it is appropriate. 03/17: Osmolality is acceptable. Tolerate CPAP trials but major concern is whether he can protect his airway or not following extubation. Will discuss with neurosurgery the appropriateness of trial extubation versus proceeding directly to tracheostomy. 03/18: Serum osmolality remains well concentrated. We will attempt trial extubation today. 03/19: On spontaneous breathing trials his tidal volumes are only about 200 cc and he does not have the strength to cough. In the context of his copious secretions and minimal respiratory effort he will be a high risk for aspiration and pneumonia. We have made numerous attempts to contact suppose it family members without success. We continue to try to update family. He will need a tracheostomy. 03/20: Spontaneous breathing trials continued to be sporadically successful. It is doubtful he will protect his airway. We are looking for family to consent for a tracheostomy. 03/21: Wakes up easily follows commands on the right side, still appears lethargic and weak. Low tidal volumes on spontaneous breathing trials. 03/22: Patient remains intubated, copious amount of oral and ET tube secretions. He follows commands on right side but remains lethargic. There is interval worsening of [id number] midline shift in the frontal region, now measuring 2.1 cm. Restart hyperosmolar therapy with 2% saline at 42 mL/h and frequent neuro check and sodium check. Continue mannitol will discuss with Dr. Chacko 03/23: Patient underwent Right frontotemporal parietal decompressive craniectomy and Duroplasty by Dr. Chacko on 03/22/18 for worsening midline shift. Postop ICP well controlled. Receiving 3% saline and mannitol. On lightening sedation able to follow commands on the right side 03/24: Patient is more awake today following commands briskly on the right side. Remains hemiplegic on the left side. On sedation hold currently tolerating CPAP. Sodium is 156 and 3% saline was discontinued. Neurosurgery following okay to wean sedation and ventilator 03/25: Remains awake follows commands on the right side. Still has a large amount of ET tube secretions white thick, started on vancomycin yesterday for MRSA and sputum. Unclear airway protection prevents extubation 03/26: Extubated yesterday. Improving respiratory owens. Able to state his name, mentation and alertness improving. Able to cough up secretions. Need continued PT/OT 03/27: His mentation remains stable to slightly improved sodium is 144 today had sodium chloride tablets twice daily. Speech eval and swallow eval pending. Able to weakly state his name. Objective Vital Signs / I&O: Vital Signs 03/26/18 12:00 03/26/18 14:00 03/26/18 15:56 Temperature 97.8 F Pulse Rate 84 86 100 H Respiratory Rate 25 H 20 Blood Pressure 138/87 Pulse Oximetry 95 03/26/18 16:00 03/26/18 18:00 03/26/18 20:00 Temperature 97.8 F 97.8 F Pulse Rate 98 H 86 93 H Respiratory Rate 25 H 14 Blood Pressure 131/87 135/81 Pulse Oximetry 100 98 03/26/18 20:19 03/26/18 20:20 03/26/18 22:00 Temperature Pulse Rate 90 83 Respiratory Rate 16 Blood Pressure Pulse Oximetry 100 03/27/18 00:00 03/27/18 02:00 03/27/18 03:29 Temperature 98.1 F Pulse Rate 94 H 89 75 Respiratory Rate 26 H 16 Blood Pressure 142/86 H Pulse Oximetry 100 03/27/18 04:00 03/27/18 06:00 03/27/18 07:51 Temperature 98.4 F Pulse Rate 89 76 77 Respiratory Rate 16 16 Blood Pressure 145/86 H Pulse Oximetry 99 03/27/18 08:00 03/27/18 10:00 Temperature 98.5 F Pulse Rate 74 90 Respiratory Rate 18 Blood Pressure 150/94 H Pulse Oximetry 100 Intake & Output 03/26/18 03/27/18 03/27/18 18:59 06:59 18:59 Intake Total 467.5 / 467.5 605 / 605 Output Total 1300 / 1300 1663 / 1663 Balance -832.5 / -832.5 -1058 / -1058 Weight 56.5 kg Intake: IV 467.5 / 467.5 605 / 605 Vancomycin Inj 1,000 MG In NS 500 / 500 Inj 250 ML @ 250 mls/hr IV.SIG Q8H PEDRO LUIS Rx#:[id number] Vancomycin Inj 1,250 MG In NS 262.5 / 262.5 Inj 250 ML @ 250 mls/hr IV.SIG Q12H PEDRO LUIS Rx#:[id number] Rocephin Inj 2,000 MG In NS Inj 100 / 100 100 ML @ 200 mls/hr IV.SIG Q24H PEDRO LUIS Rx#:[id number] Keppra Inj 500 MG In NS Inj 100 105 / 105 105 / 105 ML @ 400 mls/hr IV.SIG Q12H PEDRO LUIS Rx#:[id number] Oral 0 / 0 Output: Stool 3 / 3 Urine Amount (Catheter) 1300 / 1300 1400 / 1400 Condom 1300 / 1300 1400 / 1400 Gastric Drainage 200 / 200 Right Nare Nasogastric Tube 200 / 200 Wound Drainage 60 / 60 Head 60 / 60 Other: Date of Last Bowel Movement 03/24/18 03/27/18 03/27/18 # Bowel Movements 0 # Incontinent Bowel Movements 1 Result Diagrams: 03/26/18 04:45 03/27/18 04:39 Objective Remarks: GENERAL: Under nourished, -Martiniquais male with temporal muscle wasting. Lying in bed no distress SKIN: Warm and dry. HEAD: Normocephalic. Circumferential craniotomy dressing in place, drain with sanguinous output EYES: Pupils 4 mm and reactive bilaterally. No scleral icterus. No injection or drainage. ENT: No nasal bleeding or discharge. Mucous membranes pink and moist, very poor dentition. NECK: Trachea midline. CARDIOVASCULAR: Regular rhythm, rate in 80s, sinus on monitor. No murmurs rubs or gallops. No JVD RESPIRATORY: Clear to auscultation. Breath sounds equal bilaterally. GASTROINTESTINAL: Abdomen soft, non-tender, nondistended. Bowel sounds present. No guarding MUSCULOSKELETAL: Extremities without clubbing, cyanosis, or edema. Warm, well- perfused NEUROLOGICAL: Mild left facial droop. Follows commands on right upper and lower extremity, nods head to questions, weakly follows on left lower extremity also. Able to state his name, but weakly Assessment and Plan - Problem List (1) Traumatic brain injury Code(s): S06.9X9A - Unspecified intracranial injury with loss of consciousness of unspecified duration, initial encounter Status: Acute (2) Dysphagia Code(s): R13.10 - Dysphagia, unspecified Status: Acute - Assessment and Plan Plan: Assessment and Plan NEURO: Right frontal IPH 53.3 cm. SAH bilat frontal lobes, right parietal, temporal. Right frontotemporal SDH status post emergency craniectomy for decompression for worsening midline shift right to left 2.1 cm s/p Fall, ?syncope Daily alcohol use/Cocaine abuse s/p Right frontotemporal parietal decompressive craniectomy and Duroplasty by Dr. Chacko. Postop imaging per Dr. Chacko CT 03/21: significant worsening of the [id number] midline shift frontal region , measuring 2.1 cm, decreasing density of right frontal hematoma. CT 03/08 with evolution of hemorrhage, vasogenic edema with increased midline shift, 2.[address] 03/15 Evolving right frontal lobe IPH with cerebral edema and leftward midline shift 1.6. Minimal left frontal and parietal SAH without mass effect. Mannitol DC'd by neurosurgery on 03/26/2018, off 3% saline. Na 144 today, start NaCl 1 GM BID EEG mild encephalopathy, no seizures. Keppra 500 mg IV every 12 hours Cardene if needed to maintain systolic blood pressure less than 140, CTA brain and neck 03/03/18 no vascular abnormality, CT C-spine -negative for acute injury Tylenol as needed for temp >100.4 Dr. Dolan is the neurosurgeon following MVI/Thiamine/folic acid supplementation Monitor for evidence of alcohol withdrawal. RESP: Acute respiratory failure secondary to failure to protect airway-resolved extubated MRSA pneumonia Tobacco abuse Elevated carboxyhemoglobin level consistent with history of smoking Extubated 03/25/2018, tolerating well Continue DuoNeb scheduled and as needed Aggressive pulmonary toilet, EZPAP CV: Monitor HR and BP keep MAP>65mmHg Hydralazine 25mg Q8, Norvasc 10 daily Cardene to maintain SBP <140 if needed. Labetalol prn. GI: Speech following, re eval today. If failing again needs NG tube for medication and feeding FEN/RENAL: Monitor renal function, I/O's, electrolyte replacement protocol. ID: Sputum culture-MRSA, staph aureus Vancomycin started 03/24, Rocephin 2 g IV every 24 started 03/25 HEME: Monitor CBC ENDO: Euglycemic. Monitor bedside glucose every 6 hours. PROPH: SCDs and FADY for DVT prophylaxis. Pharmacologic DVT prophylaxis is contraindicated due to intracerebral hemorrhage. Famotidine for stress ulcer prophylaxis Full code status Level 3 Overall impression: Patient continues to be critical, but slowly improving. s/ p Right frontotemporal parietal decompressive craniectomy and Duroplasty. Neuro status improved complicated by MRSA pneumonia. Code Status: Full (1) Traumatic brain injury Qualifiers: Encounter type: subsequent encounter
[2018-03-27] MEDS: Sodium Chloride 1 GM Tablet PO SCH ×2 (13:32→22:22)
[2018-03-27] MEDS: Morphine Inj 4 MG/ML Vial IV.PUSH PRN (15:29)
[2018-03-28] MEDS: Oral Hygiene Kit OROPHARYNG SCH ×4 (01:34→17:59)
[2018-03-28] MEDS ORDERED: Pharmacy Ordered Lab Info OTHER ONE (01:45)
[2018-03-28 03:01] LABS: Albumin 2.5 g/dL (3.4-5.0); Anion Gap 6 meq/L (5-15); Blood Urea Nitrogen 14 mg/dL (7-18); Calcium 8.8 mg/dL (8.5-10.1); Carbon Dioxide 29.6 meq/L (21.0-32.0); Chloride 108 meq/L (98-107); Glucose,Random 103 mg/dL (74-106); Potassium 3.3 meq/L (3.5-5.1); Sodium 144 meq/L (136-145)
[2018-03-28 03:06] LABS: Alanine Aminotransferase 12 U/L (12-78); Alkaline Phosphatase 62 U/L (45-117); Aspartate Aminotransferase 31 U/L (15-37); Glomerular Filtration Rate Greater Than 89 mL/min (>89); Total Protein 8.1 g/dL (6.4-8.2); Vancomycin,Trough 16.7 mcg/mL (5.0-10.0)
[2018-03-28 03:10] LABS: Hematocrit 31.2 % (39.0-51.0); Hemoglobin 10.3 gm/dL (13.0-17.0); Mean Corpuscular Hemoglobin 30.6 pg (27.0-34.0); Mean Corpuscular Volume 92.6 fL (80.0-100.0); Mean Platelet Volume 7.3 fL (7.0-11.0); Platelet Count 358 th/mm3 (150-450); Red Blood Count 3.36 mil/mm3 (4.50-5.90); White Blood Count 7.4 th/mm3 (4.0-11.0)
[2018-03-28] MEDS: Vancomycin Inj 1,000 MG in Sodium Chlor 0.9% Inj 250 ML IV.SIG SCH ×3 (03:30→17:59)
[2018-03-28] MEDS: hydrALAZINE 25 MG Tablet PO SCH ×3 (06:00→18:00)
[2018-03-28] MEDS: Potassium Chloride 25 MEQ Effervescent Tablet PO PRN (06:00)
[2018-03-28] MEDS: Carboxymethylcellulose 0.5% Opth Drops 15 ML Bottle EACH EYE SCH ×2 (06:00→13:20)
--- NOTE | 2018-03-28 06:47 | XR ---
EXAM DATE: 03/28/2018 5:20 AM EDT AGE/SEX: 62 years / Male INDICATIONS: Respiratory disease. CLINICAL DATA: This is the patient's subsequent encounter. Patient reports that signs and symptoms h ave been present for 3 weeks and indicates a pain score of Nonresponsive. MEDICAL/SURGICAL HISTORY: . Chronic obstructive pulmonary disease. Asthma. None. COMPARISON: [facility] [place], CHEST 1V SINGLE AP, 03/26/2018. . FINDINGS: A single AP view of the chest demonstrates the lungs to be symmetrically aerated without evidence of mass, infiltrate or effusion. The cardiomediastinal contours are unremarkable. Osseous structures a re intact. Left subclavian central venous catheter is unchanged in position. Interval placement of a nasogastric tube with tip entering the gastric fundus CONCLUSION: 1. Lungs are clear. 2. Interval placement of a nasogastric tube with the tip projecting over the expected location of th e gastric fundus Electronically signed by: Jose Fernando MD 03/28/2018 6:46 AM EDT
--- NOTE | 2018-03-28 08:45 | P.PNCC ---
Subjective Subjective Remarks/Hospital Course: 03/03: 62-year-old -[place] male with past medical history of COPD/asthma , tobacco abuse, daily alcohol use who presented to [facility] emergency department after a fall. Patient told EM provider that he was mopping the floor with some chemicals when he felt lightheaded and fell hitting the back of his head. Patient complained of vertigo. CT brain showed right frontal intraparenchymal hemorrhage 5 x 3.3 cm with subarachnoid hemorrhage bilateral frontal lobes, right parietal and right temporal lobes. There is a component of acute subdural hematoma along the right frontoparietal lobe that is 6 mm. There is 4 mm of subfalcine herniation to the left. He is not on anticoagulation but takes aspirin daily. He complained of headache and has received Dilaudid 0.2 mg IV in the ED. BP went up to 183/99 and he was started on Cardene and BP now 144/74 on 5mg/hr. He denied nausea, vomiting, cough, fevers or chills. CTA brain/neck demonstrate no vascular abnormality. He has been admitted by Dr. Dolan and [facility] has been consulted to assist in medical management of ICH as well as workup for syncope. He said that his son had brought him to the emergency department for evaluation however upon evaluation in the ED the son was not present and there was no phone number available for him. 03/04: Resting in bed. Drowsy, arousable. Not following commands. 03/05: Resting in bed. Drowsy, easily arousable. Squeezes with both hands on command. 03/06: More awake, following commands. Dysarthric. Left-sided weakness persists. 03/07 Patient is awake on room air oxygen when seen. Follows commands. 03/08 Reportedly was cooperative and conversant with PT yesterday, oriented x3. Today will follow commands but is lethargic, no comprehensible words. No witnessed seizure. Subjective: 03/09 CT brain yesterday with evolving R frontal lobe hematoma, vasogenic edema with 2.2 cm right to left midline shift. EEG mild encephalopathy, no seizure. He continues to protect his airway, follows commands on the right. 03/09 CT brain yesterday with evolving R frontal lobe hematoma, vasogenic edema with 2.2 cm right to left midline shift. EEG mild encephalopathy, no seizure. He continues to protect his airway, follows commands on the right. 03/10: Awake and alert. Follows commands on the right. Protecting airway currently. On 3% saline. 03/11:Drowsy, easily arousable at the time of my evaluation this morning, moves right upper and lower extremity. speech unclear (mumbles). 03/12: Intubated yesterday secondary to altered mental status and copious thick secretions. Tube feeds of been resumed. Bowel regimen resume. SUBJECTIVE: 03/13: Afebrile. Lessening sedation. Off will follow commands right upper extremity. Withdraws bilateral x-rays. Flaccid left upper extremity. Tolerating tube feeds. Disimpacted yesterday. Not sufficiently abdomen still distended will check CT abdomen/pelvis with oral contrast today 03/14: Had small BM, abdomen not distended. Will hold pain meds to encourage bowel activity. 03/15: Hold extubation due to hematoma mass-effect and episodic apnea spells. He does tolerate CPAP trials otherwise. 03/16: He does reasonably well on spontaneous breathing trials with the exception of periodic brief episodes of apnea. Head CT yesterday reveals continued mass-effect from the right frontal lobe hematoma. Serum osmolality has been greater than 320 and it would appear that we have maximized efforts to reduce cerebral edema. We will attempt extubation when neurosurgical service feels it is appropriate. 03/17: Osmolality is acceptable. Tolerate CPAP trials but major concern is whether he can protect his airway or not following extubation. Will discuss with neurosurgery the appropriateness of trial extubation versus proceeding directly to tracheostomy. 03/18: Serum osmolality remains well concentrated. We will attempt trial extubation today. 03/19: On spontaneous breathing trials his tidal volumes are only about 200 cc and he does not have the strength to cough. In the context of his copious secretions and minimal respiratory effort he will be a high risk for aspiration and pneumonia. We have made numerous attempts to contact suppose it family members without success. We continue to try to update family. He will need a tracheostomy. 03/20: Spontaneous breathing trials continued to be sporadically successful. It is doubtful he will protect his airway. We are looking for family to consent for a tracheostomy. 03/21: Wakes up easily follows commands on the right side, still appears lethargic and weak. Low tidal volumes on spontaneous breathing trials. 03/22: Patient remains intubated, copious amount of oral and ET tube secretions. He follows commands on right side but remains lethargic. There is interval worsening of [id number]-gden midline shift in the frontal region, now measuring 2.1 cm. Restart hyperosmolar therapy with 2% saline at 42 mL/h and frequent neuro check and sodium check. Continue mannitol will discuss with Dr. Chacko 03/23: Patient underwent Right frontotemporal parietal decompressive craniectomy and Duroplasty by Dr. Chacko on 03/22/18 for worsening midline shift. Postop ICP well controlled. Receiving 3% saline and mannitol. On lightening sedation able to follow commands on the right side 03/24: Patient is more awake today following commands briskly on the right side. Remains hemiplegic on the left side. On sedation hold currently tolerating CPAP. Sodium is 156 and 3% saline was discontinued. Neurosurgery following okay to wean sedation and ventilator 03/25: Remains awake follows commands on the right side. Still has a large amount of ET tube secretions white thick, started on vancomycin yesterday for MRSA and sputum. Unclear airway protection prevents extubation 03/26: Extubated yesterday. Improving respiratory owens. Able to state his name, mentation and alertness improving. Able to cough up secretions. Need continued PT/OT 03/27: His mentation remains stable to slightly improved sodium is 144 today had sodium chloride tablets twice daily. Speech eval and swallow eval pending. Able to weakly state his name. 03/28: Patient extubated over 24 hours ago and maintains airway well. He clear his secretions and breathes comfortably. There is no evidence of obstruction. At this juncture he can probably be safely transferred to the floor. Objective Vital Signs / I&O: Vital Signs 03/27/18 10:00 03/27/18 12:00 03/27/18 14:00 Temperature 98.7 F Pulse Rate 90 86 92 H Respiratory Rate 24 Blood Pressure 145/93 H Pulse Oximetry 99 03/27/18 15:58 03/27/18 16:00 03/27/18 18:00 Temperature 98.9 F Pulse Rate 87 86 74 Respiratory Rate 20 18 Blood Pressure 148/94 H Pulse Oximetry 100 03/27/18 20:00 03/27/18 20:02 03/27/18 22:00 Temperature 98.7 F Pulse Rate 94 H 102 H 88 Respiratory Rate 20 18 Blood Pressure 140/90 Pulse Oximetry 97 97 03/28/18 00:00 03/28/18 02:00 03/28/18 03:55 Temperature 97.9 F Pulse Rate 102 H 92 H 95 H Respiratory Rate 23 20 Blood Pressure 146/88 H Pulse Oximetry 98 03/28/18 04:00 03/28/18 06:00 03/28/18 07:52 Temperature 98.6 F Pulse Rate 92 H 87 82 Respiratory Rate 20 20 Blood Pressure 149/89 H Pulse Oximetry 100 03/28/18 07:53 Temperature Pulse Rate Respiratory Rate Blood Pressure Pulse Oximetry 98 Intake & Output 03/27/18 03/28/18 03/28/18 18:59 06:59 18:59 Intake Total 705 / 705 250 / 250 Output Total 1425 / 1425 750 / 750 Balance -720 / -720 -500 / -500 Weight 56.4 kg Intake: IV 705 / 705 Vancomycin Inj 1,000 MG In NS 500 / 500 Inj 250 ML @ 250 mls/hr IV.SIG Q8H PEDRO LUIS Rx#:[id number] Rocephin Inj 2,000 MG In NS Inj 100 / 100 100 ML @ 200 mls/hr IV.SIG Q24H PEDRO LUIS Rx#:[id number] Keppra Inj 500 MG In NS Inj 100 105 / 105 ML @ 400 mls/hr IV.SIG Q12H PEDRO LUIS Rx#:[id number] Oral 0 / 0 Tube Feeding 250 / 250 Output: Urine Amount (Catheter) 1425 / 1425 750 / 750 Condom 1425 / 1425 750 / 750 Other: Date of Last Bowel Movement 03/27/18 03/27/18 # Bowel Movements 1 1 Result Diagrams: 03/28/18 02:37 03/28/18 02:37 Objective Remarks: GENERAL: Under nourished, -[place] male with temporal muscle wasting. Lying in bed no distress SKIN: Warm and dry. HEAD: Normocephalic. Incisions clean and dry. EYES: Pupils 3 mm and reactive bilaterally. No scleral icterus. No injection or drainage. ENT: No nasal bleeding or discharge. Mucous membranes pink and moist, very poor dentition. NECK: Trachea midline. Airway widely patent, no obstruction. CARDIOVASCULAR: Regular rhythm, rate in 80s, sinus on monitor. No murmurs rubs or gallops. No JVD RESPIRATORY: Clear to auscultation. Breath sounds equal bilaterally. Few mobile secretions, no other adventitious sounds. GASTROINTESTINAL: Abdomen soft, non-tender, nondistended. Bowel sounds present. No guarding MUSCULOSKELETAL: Extremities without clubbing, cyanosis, or edema. Warm, well- perfused NEUROLOGICAL: Mild left facial droop. Follows commands on right upper and lower extremity, nods head to questions, weakly follows on left lower extremity also. Able to state his name. Assessment and Plan - Problem List (1) Traumatic brain injury Code(s): S06.9X9A - Unspecified intracranial injury with loss of consciousness of unspecified duration, initial encounter Status: Acute (2) Dysphagia Code(s): R13.10 - Dysphagia, unspecified Status: Acute - Assessment and Plan Plan: Assessment and Plan NEURO: Right frontal IPH 53.3 cm. SAH bilat frontal lobes, right parietal, temporal. Right frontotemporal SDH status post emergency craniectomy for decompression for worsening midline shift right to left 2.1 cm s/p Fall, ?syncope Daily alcohol use/Cocaine abuse s/p Right frontotemporal parietal decompressive craniectomy and Duroplasty by Dr. Chacko. Postop imaging per Dr. Chacko CT 03/21: significant worsening of the flkhy-ej-wxeh midline shift frontal region , measuring 2.1 cm, decreasing density of right frontal hematoma. CT 03/08 with evolution of hemorrhage, vasogenic edema with increased midline shift, 2.[address] 03/15 Evolving right frontal lobe IPH with cerebral edema and leftward midline shift 1.6. Minimal left frontal and parietal SAH without mass effect. Mannitol DC'd by neurosurgery on 03/26/2018, off 3% saline. Na 144 today, start NaCl 1 GM BID EEG mild encephalopathy, no seizures. Keppra 500 mg IV every 12 hours Cardene if needed to maintain systolic blood pressure less than 140, CTA brain and neck 03/03/18 no vascular abnormality, CT C-spine -negative for acute injury Tylenol as needed for temp >100.4 Dr. Dolan is the neurosurgeon following MVI/Thiamine/folic acid supplementation Monitor for evidence of alcohol withdrawal. RESP: Acute respiratory failure secondary to failure to protect airway-resolved extubated MRSA pneumonia Tobacco abuse Elevated carboxyhemoglobin level consistent with history of smoking Extubated 03/25/2018, tolerating well Continue DuoNeb scheduled and as needed Aggressive pulmonary toilet, EZPAP CV: Monitor HR and BP keep MAP>65mmHg Hydralazine 25mg Q8, Norvasc 10 daily Cardene to maintain SBP <140 if needed. Labetalol prn. GI: Speech following, re eval today. If failing again needs NG tube for medication and feeding FEN/RENAL: Monitor renal function, I/O's, electrolyte replacement protocol. ID: Sputum culture-MRSA, staph aureus Vancomycin started 03/24, Rocephin 2 g IV every 24 started 03/25 HEME: Monitor CBC ENDO: Euglycemic. Monitor bedside glucose every 6 hours. PROPH: SCDs and FADY for DVT prophylaxis. Pharmacologic DVT prophylaxis is contraindicated due to intracerebral hemorrhage. Famotidine for stress ulcer prophylaxis Full code status Level 3 Overall impression: S/P Right frontotemporal parietal decompressive craniectomy and Duroplasty. Neuro status improved, course complicated by MRSA pneumonia. Extubated 3 days ago and breathing comfortably. (1) Traumatic brain injury Qualifiers: Encounter type: subsequent encounter
[2018-03-28] MEDS: Chlorhexidine 0.12% Oral Kit 15 ML UDC OROPHARYNG SCH ×2 (08:51→21:32)
[2018-03-28] MEDS: Docusate Sodium Liq 100 MG/10 ML UDC NG/OG SCH ×2 (09:58→21:32)
[2018-03-28] MEDS: Folic Acid 1 MG Tablet PO SCH (10:01)
[2018-03-28] MEDS: amLODIPine 10 MG Tablet NG/OG SCH (10:01)
[2018-03-28] MEDS: Polyethylene Glycol 3350 17 GM Packet NG/OG SCH ×2 (10:02→21:32)
[2018-03-28] MEDS: Senna/Docusate Sodium 8.6/50 MG Tablet PO SCH ×2 (10:03→21:31)
[2018-03-28] MEDS: Sennosides Liq 8.8 MG/5 ML UDC NG/OG SCH ×2 (10:03→21:30)
[2018-03-28] MEDS: Sodium Chloride 1 GM Tablet PO SCH (10:43)
--- NOTE | 2018-03-28 13:48 | P.PNNS ---
Subjective Interval history: 03/28: being cleaned, reports to follow commands, no changes neuro checks Physical Exam Vital signs: Vital Signs 03/27/18 14:00 03/27/18 15:58 03/27/18 16:00 Temperature 98.9 F Pulse Rate 92 H 87 86 Respiratory Rate 20 18 Blood Pressure 148/94 H Pulse Oximetry 100 03/27/18 18:00 03/27/18 20:00 03/27/18 20:02 Temperature 98.7 F Pulse Rate 74 94 H 102 H Respiratory Rate 20 18 Blood Pressure 140/90 Pulse Oximetry 97 97 03/27/18 22:00 03/28/18 00:00 03/28/18 02:00 Temperature 97.9 F Pulse Rate 88 102 H 92 H Respiratory Rate 23 Blood Pressure 146/88 H Pulse Oximetry 98 03/28/18 03:55 03/28/18 04:00 03/28/18 06:00 Temperature 98.6 F Pulse Rate 95 H 92 H 87 Respiratory Rate 20 20 Blood Pressure 149/89 H Pulse Oximetry 100 03/28/18 07:52 03/28/18 07:53 Temperature Pulse Rate 82 Respiratory Rate 20 Blood Pressure Pulse Oximetry 98 Intake & Output 03/27/18 03/28/18 03/28/18 18:59 06:59 18:59 Intake Total 705 / 705 250 / 250 355 / 355 Output Total 1425 / 1425 750 / 750 Balance -720 / -720 -500 / -500 355 / 355 Weight 56.4 kg Intake: IV 705 / 705 355 / 355 Vancomycin Inj 1,000 MG In NS 500 / 500 250 / 250 Inj 250 ML @ 250 mls/hr IV.SIG Q8H PEDRO LUIS Rx#:[id number] Rocephin Inj 2,000 MG In NS Inj 100 / 100 100 ML @ 200 mls/hr IV.SIG Q24H PEDRO LUIS Rx#:[id number] Keppra Inj 500 MG In NS Inj 100 105 / 105 105 / 105 ML @ 400 mls/hr IV.SIG Q12H PEDRO LUIS Rx#:[id number] Oral 0 / 0 Tube Feeding 250 / 250 Output: Urine Amount (Catheter) 1425 / 1425 750 / 750 Condom 1425 / 1425 750 / 750 Other: Date of Last Bowel Movement 03/27/18 03/27/18 # Bowel Movements 1 1 Narrative: Awake, patient currently being cleaned - Urinary Catheter Management Indwelling Temp Sensing Catheter Cath placed during this visit: yes, but has since been removed by the nurse Reason for continuing: Not indwelling catheter Insertion date: 03/12/18 Insertion time: 05:30 Removal date: 03/25/18 Removal time: 18:00 Indwelling Urethral Catheter Cath placed during this visit: yes, but has since been removed by the nurse Reason for continuing: Decision to DC catheter Insertion date: 03/22/18 Insertion time: 17: Removal date: 03/25/18 Removal time: 18:00 Condom Cath placed during this visit: yes, but has since been removed by the nurse Reason for continuing: Not indwelling catheter Removal date: 03/25/18 Removal time: 18:00 Assessment and Plan - Plan Impression: 62 y/o male with increased right intracerebral edema with significant 2 cm midline shift, he underwent right decompressive craniectomy 03/22/18 with placement of ICP monitor by Dr. Chacko, david'ed 03/23/18 Plan: cont neuro checks cont critical care management cont therapy and rehab efforts khurram hernandez 04/05/18
[2018-03-29] MEDS: Oral Hygiene Kit OROPHARYNG SCH ×5 (00:01→23:34)
[2018-03-29] MEDS: Vancomycin Inj 1,000 MG in Sodium Chlor 0.9% Inj 250 ML IV.SIG SCH ×3 (02:30→18:19)
[2018-03-29] MEDS: Carboxymethylcellulose 0.5% Opth Drops 15 ML Bottle EACH EYE SCH ×4 (05:38→23:34)
[2018-03-29] MEDS: hydrALAZINE 25 MG Tablet PO SCH ×5 (05:39→23:34)
[2018-03-29 08:18] LABS: Glomerular Filtration Rate Greater Than 89 mL/min (>89)
[2018-03-29] MEDS: Morphine Inj 4 MG/ML Vial IV.PUSH PRN (09:27)
--- NOTE | 2018-03-29 10:13 | P.PNNS ---
Subjective Interval history: 03/29: awake, follows simple commands right, stable left side weakness. Physical Exam Vital signs: Vital Signs 03/28/18 12:00 03/28/18 14:00 03/28/18 15:15 Temperature 97.6 F Pulse Rate 98 H 93 H 96 H Respiratory Rate 20 22 Blood Pressure 149/80 H Pulse Oximetry 100 03/28/18 16:00 03/28/18 18:00 03/28/18 20:00 Temperature 97.5 F L 98.0 F Pulse Rate 104 H 102 H 70 Respiratory Rate 21 17 Blood Pressure 130/82 110/68 Pulse Oximetry 100 95 03/28/18 21:59 03/29/18 00:00 03/29/18 03:59 Temperature 98.0 F Pulse Rate 99 H 69 Respiratory Rate 16 16 20 Blood Pressure 113/70 Pulse Oximetry 95 03/29/18 04:00 03/29/18 04:24 03/29/18 08:00 Temperature 98.0 F 97.7 F Pulse Rate 69 95 H 91 H Respiratory Rate 14 18 18 Blood Pressure 112/63 119/77 Pulse Oximetry 95 97 Intake & Output 03/28/18 03/29/18 03/29/18 18:59 06:59 18:59 Intake Total 965 / 965 810 / 810 Output Total 850 / 850 Balance 115 / 115 810 / 810 Intake: IV 605 / 605 810 / 810 Vancomycin Inj 1,000 MG In NS 500 / 500 500 / 500 Inj 250 ML @ 250 mls/hr IV.SIG Q8H PEDRO LUIS Rx#:[id number] Rocephin Inj 2,000 MG In NS Inj 100 / 100 100 ML @ 200 mls/hr IV.SIG Q24H PEDRO LUIS Rx#:[id number] Keppra Inj 500 MG In NS Inj 100 105 / 105 210 / 210 ML @ 400 mls/hr IV.SIG Q12H PEDRO LUIS Rx#:[id number] Tube Feeding 360 / 360 Output: Urine Amount (Catheter) 850 / 850 Condom 850 / 850 Other: Post Void Residual 300 # Voids 1 Date of Last Bowel Movement 03/28/18 03/28/18 # Bowel Movements 3 # Incontinent Bowel Movements 3 Narrative: Awake, followed simple commands on right right flap soft, good pulsations. scalp incision healing well pupils equal. - Urinary Catheter Management Indwelling Temp Sensing Catheter Cath placed during this visit: yes, but has since been removed by the nurse Reason for continuing: Not indwelling catheter Insertion date: 03/12/18 Insertion time: 05:30 Removal date: 03/25/18 Removal time: 18:00 Indwelling Urethral Catheter Cath placed during this visit: yes, but has since been removed by the nurse Reason for continuing: Decision to DC catheter Insertion date: 03/22/18 Insertion time: 17: Removal date: 03/25/18 Removal time: 18:00 Condom Cath placed during this visit: yes, but has since been removed by the nurse Reason for continuing: Not indwelling catheter Removal date: 03/25/18 Removal time: 18:00 Assessment and Plan - Plan Impression: 62 y/o male with increased right intracerebral edema with significant 2 cm midline shift, he underwent right decompressive craniectomy 03/22/18 with placement of ICP monitor by Dr. Chacko, va'ed 03/23/18 Plan: cont neuro checks cont therapy(PT, OT, ST) and rehab efforts khurram va 04/05/18
[2018-03-29] MEDS: Folic Acid 1 MG Tablet PO SCH (11:26)
[2018-03-29] MEDS: Docusate Sodium Liq 100 MG/10 ML UDC NG/OG SCH ×2 (11:26→22:00)
[2018-03-29] MEDS: Polyethylene Glycol 3350 17 GM Packet NG/OG SCH ×2 (11:27→22:01)
[2018-03-29] MEDS: Sennosides Liq 8.8 MG/5 ML UDC NG/OG SCH ×2 (11:28→22:01)
[2018-03-29] MEDS: Senna/Docusate Sodium 8.6/50 MG Tablet PO SCH ×2 (11:28→22:01)
[2018-03-29] MEDS: amLODIPine 10 MG Tablet NG/OG SCH (11:28)
[2018-03-29] MEDS: Sodium Chloride 1 GM Tablet PO SCH ×3 (12:20→22:02)
--- NOTE | 2018-03-29 14:05 | P.CONGI ---
History of Present Illness Consult date: 03/29/18 Consult reason: PEG tube placement Chief complaint: Ich, Sah, Syncope History of Present Illness: This is a 62 yo M with PMH significant for COPD/asthma, tobacco abuse, ETOH abuse who presented to the ER on 03/03 after a fall while mopping the floor. Pt was previously admitted to ICU and being managed for intraparenchymal hemorrhage , subarachnoid hemorrhage, frontotemporal subdural hematoma. Pt is now on medical floor. Our service has been consulted for PEG tube placement. Pt previously had NG tube that he was receiving medication and nutrition through however he took this out and is refusing it to be replaced. Pt is however agreeable to PEG placement. Pt unable to provide history but can shake his head yes and no. According to speech therapy notes, pt does not demonstrate a functional swallow response to any PO stimulation, pt did attempt to trigger a swallow however no hyopharyngeal excursion was noted. Lead Software Tester has recommended Jevity 1.5 with a goal rate of 55 mL/hr. <Tracie Chacon - Last Filed: 03/29/18 13:54> Review of Systems Pt able to shake his head yes and no. Denies any abdominal pain. <Tracie Chacon - Last Filed: 03/29/18 13:54> Medications and Allergies Active Medications: Active Medications Acetaminophen (Tylenol Liq) 650 mg NG/OG Q6H PRN PRN Reason: FEVER Last Admin: 03/13/18 06:31 Dose: 650 mg Al Hydrox/Mg Hydrox/Simethicone (Mag-Al Plus Susp Liq) 30 ml PO Q6H PRN PRN Reason: DYSPEPSIA Al Hydroxide/Mg Hydroxide (Milk Of Magnesia Liq) 30 ml PO Q12H PRN PRN Reason: Mild Constipation Albuterol (Albuterol Neb (Prn)) 2.5 mg NEB Q2HR NEB PRN PRN Reason: WHEEZING Last Admin: 03/17/18 03:27 Dose: 2.5 mg Albuterol (Duoneb Neb ([facility])) 1 ampul NEB Q6HR NEB [facility] Last Admin: 03/29/18 09:49 Dose: 1 ampul Amlodipine Besylate (Norvasc) 10 mg NG/OG DAILY [facility] Last Admin: 03/29/18 11:28 Dose: Not Given Artificial Tears (Refresh Tears 0.5% Opth Drops) 1 drop EACH EYE Q8HR [facility] Last Admin: 03/29/18 05:38 Dose: Not Given Bisacodyl (Dulcolax Supp) 10 mg RECTAL DAILY PRN PRN Reason: SEVERE CONSITIPATION Chlorhexidine Gluconate (Peridex 0.12% Oral Kit) 15 ml OROPHARYNG BID@0800, 2000 [facility] Last Admin: 03/28/18 21:32 Dose: 15 ml Clonidine HCl (Catapres) 0.1 mg PO Q6H PRN PRN Reason: SYS BP GREATER THAN 170 [facility] Last Admin: 03/09/18 15:16 Dose: 0.1 mg Docusate Sodium (Colace Liq) 100 mg NG/OG BID [facility] Last Admin: 03/29/18 11:26 Dose: Not Given Folic Acid (Folic Acid) 1 mg PO DAILY [facility] Last Admin: 03/29/18 11:26 Dose: Not Given Guaifenesin (Tobitussin Liq) 400 mg NG/OG Q8H [facility] Last Admin: 03/29/18 13:33 Dose: Not Given Hydralazine HCl (Apresoline) 25 mg PO Q6H [facility] Last Admin: 03/29/18 12:20 Dose: Not Given Hyoscyamine (Levsin Inj) 0.125 mg IV.PUSH Q6H PRN PRN Reason: SECRETIONS Last Admin: 03/22/18 11:29 Dose: 0.125 mg Levetiracetam 500 mg/ Sodium (Chloride) 105 mls @ 400 mls/hr IV.SIG Q12H [facility] Last Admin: 03/29/18 12:17 Dose: 400 mls/hr Pharmacy Profile Note (Vancomycin Consult Pharmacy) 0 mls @ 0 mls/hr OTHER UNSCH [facility] Ceftriaxone Sodium 2,000 mg/ (Sodium Chloride) 100 mls @ 200 mls/hr IV.SIG Q24H [facility] Last Admin: 03/29/18 09:12 Dose: 200 mls/hr Vancomycin HCl 1,000 mg/ (Sodium Chloride) 250 mls @ 250 mls/hr IV.SIG Q8H [facility] Last Admin: 03/29/18 10:48 Dose: 250 mls/hr Labetalol HCl (Trandate Inj) 10 mg IV.PUSH Q2HR PRN PRN Reason: SBP greater than 140mm Hg Last Admin: 03/25/18 12:47 Dose: 10 mg Lactulose (Lactulose Liq) 30 ml PO QID [facility] Last Admin: 03/29/18 11:27 Dose: Not Given Lactulose (Lactulose Liq) 30 ml PO DAILY PRN PRN Reason: SEVERE CONSITIPATION Last Admin: 03/23/18 10:17 Dose: 30 ml Lansoprazole (Prevacid Solutab) 30 mg NG/OG DAILY [facility] Last Admin: 03/29/18 11:28 Dose: Not Given Menthol ([place]) 1 lozenge BUCCAL UNSCH PRN PRN Reason: SORE THROAT Metoclopramide HCl (Reglan Inj) 5 mg IV.PUSH Q8HR [facility]; Protocol Last Admin: 03/29/18 05:36 Dose: 5 mg Morphine Sulfate (Morphine Inj) 2 mg IV.PUSH Q3H PRN PRN Reason: PAIN 1-10 Last Admin: 03/29/18 09:27 Dose: 2 mg Multivitamins (Theragran) 1 tab PO DAILY [facility] Last Admin: 03/29/18 11:28 Dose: Not Given Ondansetron HCl (Zofran Inj) 4 mg IV.PUSH Q6H PRN PRN Reason: NAUSEA OR VOMITING Polyethylene Glycol (Miralax) 17 gm NG/OG BID [facility] Last Admin: 03/29/18 11:27 Dose: Not Given Promethazine HCl (Phenergan Inj) 25 mg IM Q4H PRN PRN Reason: NAUSEA OR VOMITING Senna/Docusate Sodium (Yuliya-Colace) 1 tab PO BID [facility] Last Admin: 03/29/18 11:28 Dose: Not Given Sennosides (Senna Liq) 8.8 mg NG/OG BID [facility] Last Admin: 03/29/18 11:28 Dose: Not Given Sennosides (Senokot) 17.2 mg PO Q12H PRN PRN Reason: Moderate Constipation Sodium Chloride (Ns Flush) 2 ml IV.FLUSH UNSCH PRN PRN Reason: FLUSH AFTER USING IV ACCESS Sodium Chloride (Ns Flush) 2 ml IV.FLUSH BID [facility] Last Admin: 03/29/18 11:28 Dose: Not Given Sodium Chloride (Sodium Chloride) 1 gm PO Q12H [facility] Last Admin: 03/29/18 12:20 Dose: Not Given Thiamine HCl (Vitamin B1) 100 mg PO BID [facility] Last Admin: 03/29/18 11:29 Dose: Not Given <Tracie Chacon - Last Filed: 03/29/18 13:54> Active Medications: Active Medications Acetaminophen (Tylenol Liq) 650 mg NG/OG Q6H PRN PRN Reason: FEVER Last Admin: 03/13/18 06:31 Dose: 650 mg Al Hydrox/Mg Hydrox/Simethicone (Mag-Al Plus Susp Liq) 30 ml PO Q6H PRN PRN Reason: DYSPEPSIA Al Hydroxide/Mg Hydroxide (Milk Of Magnesia Liq) 30 ml PO Q12H PRN PRN Reason: Mild Constipation Albuterol (Albuterol Neb (Prn)) 2.5 mg NEB Q2HR NEB PRN PRN Reason: WHEEZING Last Admin: 03/17/18 03:27 Dose: 2.5 mg Albuterol (Duoneb Neb ([facility])) 1 ampul NEB Q6HR NEB [facility] Last Admin: 03/29/18 09:49 Dose: 1 ampul Amlodipine Besylate (Norvasc) 10 mg NG/OG DAILY [facility] Last Admin: 03/29/18 11:28 Dose: Not Given Artificial Tears (Refresh Tears 0.5% Opth Drops) 1 drop EACH EYE Q8HR [facility] Last Admin: 03/29/18 05:38 Dose: Not Given Bisacodyl (Dulcolax Supp) 10 mg RECTAL DAILY PRN PRN Reason: SEVERE CONSITIPATION Chlorhexidine Gluconate (Peridex 0.12% Oral Kit) 15 ml OROPHARYNG BID@0800, 2000 [facility] Last Admin: 03/28/18 21:32 Dose: 15 ml Clonidine HCl (Catapres) 0.1 mg PO Q6H PRN PRN Reason: SYS BP GREATER THAN 170 [facility] Last Admin: 03/09/18 15:16 Dose: 0.1 mg Docusate Sodium (Colace Liq) 100 mg NG/OG BID [facility] Last Admin: 03/29/18 11:26 Dose: Not Given Folic Acid (Folic Acid) 1 mg PO DAILY [facility] Last Admin: 03/29/18 11:26 Dose: Not Given Guaifenesin (Tobitussin Liq) 400 mg NG/OG Q8H [facility] Last Admin: 03/29/18 13:33 Dose: Not Given Hydralazine HCl (Apresoline) 25 mg PO Q6H [facility] Last Admin: 03/29/18 12:20 Dose: Not Given Hyoscyamine (Levsin Inj) 0.125 mg IV.PUSH Q6H PRN PRN Reason: SECRETIONS Last Admin: 03/22/18 11:29 Dose: 0.125 mg Levetiracetam 500 mg/ Sodium (Chloride) 105 mls @ 400 mls/hr IV.SIG Q12H [facility] Last Admin: 03/29/18 12:17 Dose: 400 mls/hr Pharmacy Profile Note (Vancomycin Consult Pharmacy) 0 mls @ 0 mls/hr OTHER UNSCH [facility] Ceftriaxone Sodium 2,000 mg/ (Sodium Chloride) 100 mls @ 200 mls/hr IV.SIG Q24H [facility] Last Admin: 03/29/18 09:12 Dose: 200 mls/hr Vancomycin HCl 1,000 mg/ (Sodium Chloride) 250 mls @ 250 mls/hr IV.SIG Q8H [facility] Last Admin: 03/29/18 10:48 Dose: 250 mls/hr Labetalol HCl (Trandate Inj) 10 mg IV.PUSH Q2HR PRN PRN Reason: SBP greater than 140mm Hg Last Admin: 03/25/18 12:47 Dose: 10 mg Lactulose (Lactulose Liq) 30 ml PO QID [facility] Last Admin: 03/29/18 11:27 Dose: Not Given Lactulose (Lactulose Liq) 30 ml PO DAILY PRN PRN Reason: SEVERE CONSITIPATION Last Admin: 03/23/18 10:17 Dose: 30 ml Lansoprazole (Prevacid Solutab) 30 mg NG/OG DAILY [facility] Last Admin: 03/29/18 11:28 Dose: Not Given Menthol ([place]) 1 lozenge BUCCAL UNSCH PRN PRN Reason: SORE THROAT Metoclopramide HCl (Reglan Inj) 5 mg IV.PUSH Q8HR [facility]; Protocol Last Admin: 03/29/18 05:36 Dose: 5 mg Morphine Sulfate (Morphine Inj) 2 mg IV.PUSH Q3H PRN PRN Reason: PAIN 1-10 Last Admin: 03/29/18 09:27 Dose: 2 mg Multivitamins (Theragran) 1 tab PO DAILY [facility] Last Admin: 03/29/18 11:28 Dose: Not Given Ondansetron HCl (Zofran Inj) 4 mg IV.PUSH Q6H PRN PRN Reason: NAUSEA OR VOMITING Polyethylene Glycol (Miralax) 17 gm NG/OG BID [facility] Last Admin: 03/29/18 11:27 Dose: Not Given Promethazine HCl (Phenergan Inj) 25 mg IM Q4H PRN PRN Reason: NAUSEA OR VOMITING Senna/Docusate Sodium (Yuliya-Colace) 1 tab PO BID [facility] Last Admin: 03/29/18 11:28 Dose: Not Given Sennosides (Senna Liq) 8.8 mg NG/OG BID [facility] Last Admin: 03/29/18 11:28 Dose: Not Given Sennosides (Senokot) 17.2 mg PO Q12H PRN PRN Reason: Moderate Constipation Sodium Chloride (Ns Flush) 2 ml IV.FLUSH UNSCH PRN PRN Reason: FLUSH AFTER USING IV ACCESS Sodium Chloride (Ns Flush) 2 ml IV.FLUSH BID [facility] Last Admin: 03/29/18 11:28 Dose: Not Given Sodium Chloride (Sodium Chloride) 1 gm PO Q12H [facility] Last Admin: 03/29/18 12:20 Dose: Not Given Thiamine HCl (Vitamin B1) 100 mg PO BID [facility] Last Admin: 03/29/18 11:29 Dose: Not Given <Amador Myers - Last Filed: 03/29/18 14:59> Allergies Allergy/AdvReac Type Severity Reaction Status Date / Time No Known Allergies Allergy Unknown Uncoded 03/03/18 20:43 Home Medications Medication Instructions Recorded Confirmed Type aspirin 325 mg PO DAILY 03/05/18 03/05/18 History Exam Vital signs: Vital Signs 03/28/18 14:00 03/28/18 15:15 03/28/18 16:00 Temperature 97.5 F L Pulse Rate 93 H 96 H 104 H Respiratory Rate 22 21 Blood Pressure 130/82 Pulse Oximetry 100 03/28/18 18:00 03/28/18 20:00 03/28/18 21:59 Temperature 98.0 F Pulse Rate 102 H 70 99 H Respiratory Rate 17 16 Blood Pressure 110/68 Pulse Oximetry 95 03/29/18 00:00 03/29/18 03:59 03/29/18 04:00 Temperature 98.0 F 98.0 F Pulse Rate 69 69 Respiratory Rate 16 20 14 Blood Pressure 113/70 112/63 Pulse Oximetry 95 95 03/29/18 04:24 03/29/18 08:00 03/29/18 09:50 Temperature 97.7 F Pulse Rate 95 H 91 H 91 H Respiratory Rate 18 18 16 Blood Pressure 119/77 Pulse Oximetry 97 97 03/29/18 12:00 Temperature 97.6 F Pulse Rate 96 H Respiratory Rate 18 Blood Pressure 111/76 Pulse Oximetry 95 Intake & Output 03/28/18 03/29/18 03/29/18 18:59 06:59 18:59 Intake Total 965 / 965 810 / 810 Output Total 850 / 850 Balance 115 / 115 810 / 810 Intake: IV 605 / 605 810 / 810 Vancomycin Inj 1,000 MG In NS 500 / 500 500 / 500 Inj 250 ML @ 250 mls/hr IV.SIG Q8H [facility] Rx#:[id number] Rocephin Inj 2,000 MG In NS Inj 100 / 100 100 ML @ 200 mls/hr IV.SIG Q24H [facility] Rx#:[id number] Keppra Inj 500 MG In NS Inj 100 105 / 105 210 / 210 ML @ 400 mls/hr IV.SIG Q12H [facility] Rx#:[id number] Tube Feeding 360 / 360 Output: Urine Amount (Catheter) 850 / 850 Condom 850 / 850 Other: Post Void Residual 300 # Voids 1 Date of Last Bowel Movement 03/28/18 03/28/18 03/28/18 # Bowel Movements 3 # Incontinent Bowel Movements 3 - Constitutional no acute distress - Routine Respiratory Exam Absent: accessory muscle use - Routine Abdominal Exam Present: soft, normoactive bowel sounds. Absent: tenderness - Routine Skin Exam Present: dry, warm - Routine Neurological Exam Present: alert <Tracie Chacon - Last Filed: 03/29/18 13:54> Vital signs: Vital Signs 03/28/18 15:15 03/28/18 16:00 03/28/18 18:00 Temperature 97.5 F L Pulse Rate 96 H 104 H 102 H Respiratory Rate 22 21 Blood Pressure 130/82 Pulse Oximetry 100 03/28/18 20:00 03/28/18 21:59 03/29/18 00:00 Temperature 98.0 F 98.0 F Pulse Rate 70 99 H 69 Respiratory Rate 17 16 16 Blood Pressure 110/68 113/70 Pulse Oximetry 95 95 03/29/18 03:59 03/29/18 04:00 03/29/18 04:24 Temperature 98.0 F Pulse Rate 69 95 H Respiratory Rate 20 14 18 Blood Pressure 112/63 Pulse Oximetry 95 03/29/18 08:00 03/29/18 09:50 03/29/18 12:00 Temperature 97.7 F 97.6 F Pulse Rate 91 H 91 H 96 H Respiratory Rate 18 16 18 Blood Pressure 119/77 111/76 Pulse Oximetry 97 97 95 Intake & Output 03/28/18 03/29/18 03/29/18 18:59 06:59 18:59 Intake Total 965 / 965 810 / 810 Output Total 850 / 850 Balance 115 / 115 810 / 810 Intake: IV 605 / 605 810 / 810 Vancomycin Inj 1,000 MG In NS 500 / 500 500 / 500 Inj 250 ML @ 250 mls/hr IV.SIG Q8H [facility] Rx#:[id number] Rocephin Inj 2,000 MG In NS Inj 100 / 100 100 ML @ 200 mls/hr IV.SIG Q24H [facility] Rx#:[id number] Keppra Inj 500 MG In NS Inj 100 105 / 105 210 / 210 ML @ 400 mls/hr IV.SIG Q12H [facility] Rx#:[id number] Tube Feeding 360 / 360 Output: Urine Amount (Catheter) 850 / 850 Condom 850 / 850 Other: Post Void Residual 300 # Voids 1 Date of Last Bowel Movement 03/28/18 03/28/18 03/28/18 # Bowel Movements 3 # Incontinent Bowel Movements 3 <Amador Myers - Last Filed: 03/29/18 14:59> Results - Labs CBC & Chem 7: 03/28/18 02:37 03/29/18 07:29 Labs: Laboratory Results - last 24 hr 03/29/18 07:29 Creatinine 0.64 Estimated GFR Greater than 89 <Tracie Chacon - Last Filed: 03/29/18 13:54> - Labs CBC & Chem 7: 03/28/18 02:37 03/29/18 07:29 Labs: Laboratory Results - last 24 hr 03/29/18 07:29 Creatinine 0.64 Estimated GFR Greater than 89 <Amador Myers - Last Filed: 03/29/18 14:59> Assessment and Plan - Plan Assessment: - Dysphagia - Fall with injuries including intraparenchymal hemorrhage, subarachnoid hemorrhage, frontotemporal subdural hematoma. Our service has been consulted for PEG tube placement. Pt previously had NG tube that he was receiving medication and nutrition through however he took this out and is refusing it to be replaced. Pt is however agreeable to PEG placement. Pt unable to provide history but can shake his head yes and no. According to speech therapy notes, pt does not demonstrate a functional swallow response to any PO stimulation, pt did attempt to trigger a swallow however no hyopharyngeal excursion was noted. Lead Software Tester has recommended Jevity 1.5 with a goal rate of 55 mL/hr. Plan: EGD with PEG tomorrow Obtain consent NPO after MN Pt on Vanco and Rocephin for abx coverage Appreciate dietary recommendations- Jevity 1.5 @ 55 mL/hr Further recommendations to follow Pt has been seen and examined by myself and Dr. Myers and this note is written on his behalf <Tracie Chacon - Last Filed: 03/29/18 13:54> - Attending Attestation Patient was seen and examined, agree with above note, plan on a PEG tube placement tomorrow, will give antibiotic during the procedure if indicated <Amador Myers - Last Filed: 03/29/18 14:59>
--- NOTE | 2018-03-29 14:48 | P.PNIM ---
Subjective Interval history: Patient is non-verbal but oriented. He declines NG tube replacement after he removed it. Options at this point would be hospice vs. PEG. He would like a PEG. Physical Exam Vital signs: Vital Signs 03/28/18 15:15 03/28/18 16:00 03/28/18 18:00 Temperature 97.5 F L Pulse Rate 96 H 104 H 102 H Respiratory Rate 22 21 Blood Pressure 130/82 Pulse Oximetry 100 03/28/18 20:00 03/28/18 21:59 03/29/18 00:00 Temperature 98.0 F 98.0 F Pulse Rate 70 99 H 69 Respiratory Rate 17 16 16 Blood Pressure 110/68 113/70 Pulse Oximetry 95 95 03/29/18 03:59 03/29/18 04:00 03/29/18 04:24 Temperature 98.0 F Pulse Rate 69 95 H Respiratory Rate 20 14 18 Blood Pressure 112/63 Pulse Oximetry 95 03/29/18 08:00 03/29/18 09:50 03/29/18 12:00 Temperature 97.7 F 97.6 F Pulse Rate 91 H 91 H 96 H Respiratory Rate 18 16 18 Blood Pressure 119/77 111/76 Pulse Oximetry 97 97 95 Intake & Output 03/28/18 03/29/18 03/29/18 18:59 06:59 18:59 Intake Total 965 / 965 810 / 810 Output Total 850 / 850 Balance 115 / 115 810 / 810 Intake: IV 605 / 605 810 / 810 Vancomycin Inj 1,000 MG In NS 500 / 500 500 / 500 Inj 250 ML @ 250 mls/hr IV.SIG Q8H [facility] Rx#:[id number] Rocephin Inj 2,000 MG In NS Inj 100 / 100 100 ML @ 200 mls/hr IV.SIG Q24H [facility] Rx#:[id number] Keppra Inj 500 MG In NS Inj 100 105 / 105 210 / 210 ML @ 400 mls/hr IV.SIG Q12H [facility] Rx#:[id number] Tube Feeding 360 / 360 Output: Urine Amount (Catheter) 850 / 850 Condom 850 / 850 Other: Post Void Residual 300 # Voids 1 Date of Last Bowel Movement 03/28/18 03/28/18 03/28/18 # Bowel Movements 3 # Incontinent Bowel Movements 3 Narrative: GENERAL: NAD, A&Ox3, nonverbal HEAD: Normocephalic. NECK: Supple, trachea midline. No lymphadenopathy. EYES: No scleral icterus. No injection or drainage. CARDIOVASCULAR: Regular rate and rhythm without murmurs, gallops, or rubs. RESPIRATORY: Breath sounds equal bilaterally. No accessory muscle use. GASTROINTESTINAL: Abdomen soft, non-tender, nondistended. MUSCULOSKELETAL: No cyanosis, or edema. SKIN: Warm and dry. Jose on scalp. NEURO: No focal neurological deficits. - Urinary Catheter Management Indwelling Temp Sensing Catheter Cath placed during this visit: yes, but has since been removed by the nurse Reason for continuing: Not indwelling catheter Insertion date: 03/12/18 Insertion time: 05:30 Removal date: 03/25/18 Removal time: 18:00 Indwelling Urethral Catheter Cath placed during this visit: yes, but has since been removed by the nurse Reason for continuing: Decision to DC catheter Insertion date: 03/22/18 Insertion time: 17:30 Removal date: 03/25/18 Removal time: 18:00 Condom Cath placed during this visit: yes, but has since been removed by the nurse Reason for continuing: Not indwelling catheter Removal date: 03/25/18 Removal time: 18:00 Results - Labs CBC & Chem 7: 03/28/18 02:37 03/29/18 07:29 Laboratory Results - last 24 hr 03/29/18 07:29 Creatinine 0.64 Estimated GFR Greater than 89 Assessment and Plan - Plan 62-year-old male admitted secondary to intracranial hemorrhage Right frontal IPH 53.3 cm. SAH bilat frontal lobes, right parietal, temporal. Right frontotemporal SDH status post emergency craniectomy for decompression for worsening midline shift right to left 2.1 cm s/p Fall, ?syncope Daily alcohol use/Cocaine abuse s/p Right frontotemporal parietal decompressive craniectomy and Duroplasty by Dr. Chacko. Brain edema in stabilizing Neurosurgery following Continue supportive care Patient is nonverbal and not able to take p.o. treatment at this time Hydralazine 25mg Q8, Norvasc 10 daily Acute respiratory failure secondary to failure to protect airway-resolved extubated MRSA pneumonia Tobacco abuse Elevated carboxyhemoglobin level consistent with history of smoking Extubated 03/25/2018 Continue as needed duo nebs Respiratory status showing stability today Positive sputum culture MRSA Vancomycin and Rocephin continued DVT prophylaxis SCDs No chemoprophylaxis anticoagulation due to recent intracranial bleed
[2018-03-29] MEDS: Chlorhexidine 0.12% Oral Kit 15 ML UDC OROPHARYNG SCH (23:34)
[2018-03-30] MEDS: Vancomycin Inj 1,000 MG in Sodium Chlor 0.9% Inj 250 ML IV.SIG SCH ×3 (01:51→18:50)
[2018-03-30] MEDS: hydrALAZINE 25 MG Tablet PO SCH ×3 (04:32→20:17)
[2018-03-30] MEDS: Oral Hygiene Kit OROPHARYNG SCH ×3 (04:32→20:17)
[2018-03-30] MEDS: Carboxymethylcellulose 0.5% Opth Drops 15 ML Bottle EACH EYE SCH ×3 (05:17→21:23)
[2018-03-30] MEDS ORDERED: Metoprolol Tartrate 25 MG Tablet PO SCH (07:15)
[2018-03-30] MEDS ORDERED: Chlorhexidine Gluconate 2% 1 Pack (2 Cloths) TOPICAL SCH (07:15)
[2018-03-30] MEDS ORDERED: Sodium Chlor 0.9% Inj 500 ML IV.SIG SCH (08:00)
[2018-03-30] MEDS: Chlorhexidine 0.12% Oral Kit 15 ML UDC OROPHARYNG SCH ×3 (08:05→21:25)
[2018-03-30 08:12] LABS: Baso % (Auto) 0.6 % (0.0-2.0); Eos # (Auto) 0.1 th/mm3 (0.0-0.4); Eos % (Auto) 2.3 % (0.0-4.0); Hematocrit 27.6 % (39.0-51.0); Hemoglobin 9.1 gm/dL (13.0-17.0); Lymph % (Auto) 19.3 % (9.0-44.0); Mean Corpuscular HGB Conc 33.1 % (32.0-36.0); Mean Corpuscular Hemoglobin 31.2 pg (27.0-34.0); Mean Corpuscular Volume 94.1 fL (80.0-100.0); Mean Platelet Volume 7.1 fL (7.0-11.0); Mono # (Auto) 0.4 th/mm3 (0.0-0.9); Mono % (Auto) 7.9 % (0.0-8.0); Neut # (Auto) 3.6 th/mm3 (1.8-7.7); Neut % (Auto) 69.9 % (16.0-70.0); Platelet Count 294 th/mm3 (150-450); Red Blood Count 2.93 mil/mm3 (4.50-5.90); Red Cell Distribution Width 13.1 % (11.6-17.2); White Blood Count 5.2 th/mm3 (4.0-11.0)
[2018-03-30 08:47] LABS: Alanine Aminotransferase 11 U/L (12-78); Albumin 2.2 g/dL (3.4-5.0); Alkaline Phosphatase 55 U/L (45-117); Anion Gap 7 meq/L (5-15); Aspartate Aminotransferase 17 U/L (15-37); Blood Urea Nitrogen 11 mg/dL (7-18); Calcium 7.9 mg/dL (8.5-10.1); Carbon Dioxide 26.6 meq/L (21.0-32.0); Chloride 112 meq/L (98-107); Glomerular Filtration Rate Greater Than 89 mL/min (>89); Glucose,Random 90 mg/dL (74-106); Potassium 3.3 meq/L (3.5-5.1); Sodium 146 meq/L (136-145); Total Protein 6.9 g/dL (6.4-8.2)
--- NOTE | 2018-03-30 11:21 | GIPROC ---
[facility] [address] [facility]. [facility], [id number] EGD WITH PEG PROCEDURE REPORT EXAM DATE: 03/30/2018 PATIENT NAME: Aguilar Jain MR#: [id number] BIRTHDATE: 1955 ATTENDING: Amador Myers MD ORDER #: [id number] TREE SCOUT: Khadijah Ramey RN STATUS: inpatient INDICATIONS: The patient is a 62 yr old male here for an EGD with PEG due to dysphagia PROCEDURE PERFORMED: EGD with biopsy EGD with PEG placement MEDICATIONS: None and Per Anesthesia. TOPICAL ANESTHETIC: none CONSENT: The patient understands the risks and benefits of the procedure and understands that these risks include, but are not limited to: sedation, allergic reaction, infection, perforation and/or bleeding. Alternative means of evaluation and treatment include, among others: physical exam, x-rays, and/or surgical intervention. The patient elects to proceed with this endoscopic procedure. medical equipment was checked for proper function. Hand hygiene and appropriate measures for infection prevention was taken. After the risks, benefits and alternatives of the procedure were thoroughly explained, Informed consent was verified, confirmed and timeout was successfully executed by the treatment team. The patient was anesthetized with topical anesthesia and the centroseax [id number] endoscope was introduced through the mouth and advanced to the second portion of the duodenum. The instrument was slowly withdrawn as the mucosa was fully examined. Mild gastritis biopsy was done from the antrum otherwise normal exam The stomach was then inflated with air, and by a combination of transillumination and manual palpation, the site for the gastrostomy tube placement was selected and marked on the anterior abdominal wall. The skin of the anterior abdomen was surgically prepped and draped with sterile towels. Utilizing strict sterile technique, the selected site was then anesthetized with 1% xylocaine by injection into the skin and subcutaneous tissue. A 1 cm incision was made through the skin and subcutaneous tissue, and the needle/cannula assembly was then passed through the abdominal wall and through the anterior wall of the stomach, maintaining visualization with the endoscope. A snare device previously placed through the instrument channel was then opened and placed around the cannula, the needle was removed, and the insertion wire was passed through the cannula and into the stomach lumen. The snare was then loosened from the cannula, and repositioned to snare the insertion wire. The snare was then pulled up to the endoscope distal tip, and the scope was then withdrawn bringing with it the snare and insertion wire. The insertion wire was then released from the snare, and then loop-attached to the Bard 20 Fr gastrostomy tube. Using the "pull technique", the G-tube was then pulled into place by traction on the insertion wire at the abdominal wall end. The G-tube insertion site was then cleansed once again, and the external bolster was placed over the tube to secure it to the abdominal wall. A sterile dressing was then applied, and the procedure terminated. no abnormalities The gastroscope was then slowly withdrawn and removed. ADVERSE EVENT: There were no complications. IMPRESSIONS: No abnormalities RECOMMENDATIONS: 1. Anti-reflux regimen 2. Await biopsy results. Biopsy results will not be ready for 7-10 days. If you don't hear from us in two weeks, call our office for biopsy results. 3. Continue PPI REPEAT EXAM: procedure as needed Amador Myers MD eSigned: Amador Myers MD 03/30/2018 11:21 AM cc: PATIENT NAME: Aguilar Jain MR#: [id number]
--- NOTE | 2018-03-30 14:17 | P.PNIM ---
Subjective Interval history: Status post tube feed placement. No complaints of pain. Patient is hungry, but failed swallow study. Physical Exam Vital signs: Vital Signs 03/29/18 15:47 03/29/18 16:00 03/29/18 20:00 Temperature 97.9 F 98.1 F Pulse Rate 74 102 H 88 Respiratory Rate 18 18 18 Blood Pressure 116/68 128/80 Pulse Oximetry 96 100 03/29/18 20:22 03/30/18 00:00 03/30/18 03:56 Temperature 98 F Pulse Rate 104 H 86 91 H Respiratory Rate 19 18 18 Blood Pressure 125/78 Pulse Oximetry 100 03/30/18 04:00 03/30/18 08:00 03/30/18 12:00 Temperature 98.3 F 98.5 F 97.9 F Pulse Rate 88 86 88 Respiratory Rate 18 20 20 Blood Pressure 129/69 124/71 138/86 Pulse Oximetry 96 98 95 Intake & Output 03/29/18 03/30/18 03/30/18 18:59 06:59 18:59 Intake Total 250 / 250 810 / 810 Output Total 1500 / 1500 500 / 500 Balance 250 / 250 -690 / -690 -500 / -500 Weight 56.5 kg Intake: IV 250 / 250 810 / 810 Vancomycin Inj 1,000 MG In NS 250 / 250 500 / 500 Inj 250 ML @ 250 mls/hr IV.SIG Q8H [facility] Rx#:[id number] Rocephin Inj 2,000 MG In NS Inj 100 / 100 100 ML @ 200 mls/hr IV.SIG Q24H [facility] Rx#:[id number] Keppra Inj 500 MG In NS Inj 100 210 / 210 ML @ 400 mls/hr IV.SIG Q12H [facility] Rx#:[id number] Output: Urine 1500 / 1500 500 / 500 Other: Date of Last Bowel Movement 03/28/18 03/29/18 # Incontinent Bowel Movements 2 Narrative: GENERAL: NAD, A&Ox3, nonverbal HEAD: Normocephalic. NECK: Supple, trachea midline. No lymphadenopathy. EYES: No scleral icterus. No injection or drainage. CARDIOVASCULAR: Regular rate and rhythm without murmurs, gallops, or rubs. RESPIRATORY: Breath sounds equal bilaterally. No accessory muscle use. GASTROINTESTINAL: Abdomen soft, non-tender, nondistended. MUSCULOSKELETAL: No cyanosis, or edema. SKIN: Warm and dry. [place] on scalp. NEURO: No focal neurological deficits. - Urinary Catheter Management Indwelling Temp Sensing Catheter Cath placed during this visit: yes, but has since been removed by the nurse Reason for continuing: Not indwelling catheter Insertion date: 03/12/18 Insertion time: 05:30 Removal date: 03/25/18 Removal time: 18:00 Indwelling Urethral Catheter Cath placed during this visit: yes, but has since been removed by the nurse Reason for continuing: Decision to DC catheter Insertion date: 03/22/18 Insertion time: 17:30 Removal date: 03/25/18 Removal time: 18:00 Condom Cath placed during this visit: yes, but has since been removed by the nurse Reason for continuing: Not indwelling catheter Removal date: 03/25/18 Removal time: 18:00 Results - Labs CBC & Chem 7: 03/30/18 07:47 03/30/18 07:47 Laboratory Results - last 24 hr 03/29/18 03/30/18 03/30/18 17:22 07:47 07:47 WBC 5.2 RBC 2.93 L Hgb 9.1 L Hct 27.6 L MCV 94.1 MCH 31.2 MCHC 33.1 RDW 13.1 Plt Count 294 MPV 7.1 Neut % (Auto) 69.9 Lymph % (Auto) 19.3 [place] % (Auto) 7.9 Eos % (Auto) 2.3 Baso % (Auto) 0.6 Neut # (Auto) 3.6 Lymph # (Auto) 1.0 [place] # (Auto) 0.4 Eos # (Auto) 0.1 Baso # (Auto) 0.0 WBC Differential . Differential Comment Auto diff final Sodium 146 H Potassium 3.3 L Chloride 112 H Carbon Dioxide 26.6 Anion Gap 7 BUN 11 Creatinine 0.67 Estimated GFR Greater than 89 POC Glucose 98 Random Glucose 90 Calcium 7.9 L Total Bilirubin 0.3 AST 17 ALT 11 L Alkaline Phosphatase 55 Total Protein 6.9 D Albumin 2.2 L 03/30/18 10:30 WBC RBC Hgb Hct MCV MCH MCHC RDW Plt Count MPV Neut % (Auto) Lymph % (Auto) [place] % (Auto) Eos % (Auto) Baso % (Auto) Neut # (Auto) Lymph # (Auto) [place] # (Auto) Eos # (Auto) Baso # (Auto) WBC Differential Differential Comment Sodium Potassium Chloride Carbon Dioxide Anion Gap BUN Creatinine Estimated GFR POC Glucose 91 Random Glucose Calcium Total Bilirubin AST ALT Alkaline Phosphatase Total Protein Albumin Assessment and Plan - Plan 62-year-old male admitted secondary to intracranial hemorrhage Status post tube feed placement. Doing well. Not able to take PO currently. 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 SAH bilat frontal lobes, right parietal, temporal. Right frontotemporal SDH status post emergency craniectomy for decompression for worsening midline shift right to left 2.1 cm s/p Fall, ?syncope Daily alcohol use/Cocaine abuse s/p Right frontotemporal parietal decompressive craniectomy and Duroplasty by Dr. Chacko. Brain edema in stabilizing Neurosurgery following Continue supportive care Patient is nonverbal and not able to take p.o. treatment at this time Hydralazine 25mg Q8, Norvasc 10 daily Tube feed placement 03/30/18 Acute respiratory failure secondary to failure to protect airway-resolved extubated MRSA pneumonia Tobacco abuse Elevated carboxyhemoglobin level consistent with history of smoking Extubated 03/25/2018 Continue as needed duo nebs Respiratory status showing stability today Positive sputum culture MRSA Vancomycin and Rocephin continued DVT prophylaxis SCDs No chemoprophylaxis anticoagulation due to recent intracranial bleed
[2018-03-30] MEDS: Folic Acid 1 MG Tablet PO SCH (17:38)
[2018-03-30] MEDS: Docusate Sodium Liq 100 MG/10 ML UDC NG/OG SCH ×2 (17:38→21:22)
[2018-03-30] MEDS: amLODIPine 10 MG Tablet NG/OG SCH (17:39)
[2018-03-30] MEDS: Polyethylene Glycol 3350 17 GM Packet NG/OG SCH ×2 (17:39→21:24)
[2018-03-30] MEDS: Senna/Docusate Sodium 8.6/50 MG Tablet PO SCH ×2 (17:39→21:23)
[2018-03-30] MEDS: Sennosides Liq 8.8 MG/5 ML UDC NG/OG SCH ×2 (17:40→21:26)
[2018-03-30] MEDS: Potassium Chlor 20 mEq Premix 20 MEQ/100 ML PIGGYBACK IV.SIG SCH ×4 (17:40→21:24)
[2018-03-30] MEDS: Sodium Chloride 1 GM Tablet PO SCH (17:42)
[2018-03-31] MEDS: Sodium Chloride 1 GM Tablet PO SCH ×3 (01:30→22:27)
[2018-03-31] MEDS: Vancomycin Inj 1,000 MG in Sodium Chlor 0.9% Inj 250 ML IV.SIG SCH ×3 (01:30→17:59)
[2018-03-31] MEDS: hydrALAZINE 25 MG Tablet PO SCH ×4 (01:30→17:58)
[2018-03-31] MEDS: Oral Hygiene Kit OROPHARYNG SCH ×4 (01:31→17:58)
[2018-03-31] MEDS: Carboxymethylcellulose 0.5% Opth Drops 15 ML Bottle EACH EYE SCH ×2 (06:23→13:37)
[2018-03-31 08:04] LABS: Baso % (Auto) 0.6 % (0.0-2.0); Eos # (Auto) 0.1 th/mm3 (0.0-0.4); Eos % (Auto) 1.2 % (0.0-4.0); Lymph % (Auto) 12.7 % (9.0-44.0); Mean Corpuscular HGB Conc 33.3 % (32.0-36.0); Mean Corpuscular Hemoglobin 30.8 pg (27.0-34.0); Mean Corpuscular Volume 92.4 fL (80.0-100.0); Mean Platelet Volume 7.2 fL (7.0-11.0); Mono # (Auto) 0.5 th/mm3 (0.0-0.9); Neut # (Auto) 5.9 th/mm3 (1.8-7.7); Neut % (Auto) 78.5 % (16.0-70.0); Platelet Count 287 th/mm3 (150-450); Red Blood Count 3.25 mil/mm3 (4.50-5.90); White Blood Count 7.5 th/mm3 (4.0-11.0)
[2018-03-31 08:32] LABS: Albumin 2.3 g/dL (3.4-5.0); Anion Gap 6 meq/L (5-15); Aspartate Aminotransferase 23 U/L (15-37); Blood Urea Nitrogen 8 mg/dL (7-18); Calcium 8.2 mg/dL (8.5-10.1); Carbon Dioxide 27.4 meq/L (21.0-32.0); Chloride 108 meq/L (98-107); Glomerular Filtration Rate Greater Than 89 mL/min (>89); Potassium 3.4 meq/L (3.5-5.1); Sodium 141 meq/L (136-145)
[2018-03-31 08:38] LABS: Alanine Aminotransferase 10 U/L (12-78); Alkaline Phosphatase 59 U/L (45-117); Glucose,Random 126 mg/dL (74-106); Total Protein 7.6 g/dL (6.4-8.2)
[2018-03-31] MEDS ORDERED: Pharmacy Ordered Lab Info OTHER ONE (09:45)
[2018-03-31] MEDS: Docusate Sodium Liq 100 MG/10 ML UDC NG/OG SCH ×2 (09:52→22:26)
[2018-03-31] MEDS: Sennosides Liq 8.8 MG/5 ML UDC NG/OG SCH ×2 (09:52→22:41)
[2018-03-31] MEDS: Senna/Docusate Sodium 8.6/50 MG Tablet PO SCH ×2 (09:52→22:26)
[2018-03-31] MEDS: Folic Acid 1 MG Tablet PO SCH (09:52)
[2018-03-31] MEDS: amLODIPine 10 MG Tablet NG/OG SCH (09:52)
[2018-03-31] MEDS: Chlorhexidine 0.12% Oral Kit 15 ML UDC OROPHARYNG SCH ×2 (09:53→22:41)
[2018-03-31] MEDS: Polyethylene Glycol 3350 17 GM Packet NG/OG SCH ×2 (09:53→22:41)
[2018-03-31] MEDS: Potassium Chlor 20 mEq Premix 20 MEQ/100 ML PIGGYBACK IV.SIG SCH ×2 (11:16→13:36)
--- NOTE | 2018-03-31 12:13 | P.PNIM ---
Subjective Interval history: Potassium level slightly low today. Patient has no new complaints. Tolerating PEG. Physical Exam Vital signs: Vital Signs 03/30/18 16:00 03/30/18 21:52 03/31/18 00:00 Temperature 98 F 97.3 F L 98.1 F Pulse Rate 86 87 93 H Respiratory Rate 20 18 18 Blood Pressure 141/93 H 143/93 H 147/86 H Pulse Oximetry 98 93 L 97 03/31/18 04:00 03/31/18 08:00 03/31/18 10:41 Temperature 98.7 F 97.9 F Pulse Rate 94 H 86 Respiratory Rate 18 20 Blood Pressure 141/91 H 146/87 H Pulse Oximetry 98 97 95 Intake & Output 03/30/18 03/31/18 03/31/18 18:59 06:59 18:59 Intake Total 255 / 255 350 / 350 950 / 950 Output Total 1200 / 1200 Balance -945 / -945 350 / 350 950 / 950 Weight 56.5 kg Intake: IV 255 / 255 350 / 350 950 / 950 LR 1000 mL Inj 1,000 ML @ 30 50 / 50 950 / 950 mls/hr IV.SIG .Q24H [facility] Rx#: [id number] KCl 20 mEq Premix Inj 20 meq In 100 / 100 100 ml @ 50 mls/hr IV.SIG Q2H [facility] Rx#:[id number] Vancomycin Inj 1,000 MG In NS 250 / 250 Inj 250 ML @ 250 mls/hr IV.SIG Q8H [facility] Rx#:[id number] Rocephin Inj 2,000 MG In NS Inj 100 / 100 100 ML @ 200 mls/hr IV.SIG Q24H [facility] Rx#:[id number] Keppra Inj 500 MG In NS Inj 100 105 / 105 ML @ 400 mls/hr IV.SIG Q12H [facility] Rx#:[id number] Output: Urine 1200 / 1200 Other: Date of Last Bowel Movement 03/29/18 03/29/18 Narrative: GENERAL: NAD, A&Ox3, nonverbal HEAD: Normocephalic. NECK: Supple, trachea midline. No lymphadenopathy. EYES: No scleral icterus. No injection or drainage. CARDIOVASCULAR: Regular rate and rhythm without murmurs, gallops, or rubs. RESPIRATORY: Breath sounds equal bilaterally. No accessory muscle use. GASTROINTESTINAL: Abdomen soft, non-tender, nondistended. MUSCULOSKELETAL: No cyanosis, or edema. SKIN: Warm and dry. [place] on scalp. NEURO: No focal neurological deficits. - Urinary Catheter Management Indwelling Temp Sensing Catheter Cath placed during this visit: yes, but has since been removed by the nurse Reason for continuing: Not indwelling catheter Insertion date: 03/12/18 Insertion time: 05:30 Removal date: 03/25/18 Removal time: 18:00 Indwelling Urethral Catheter Cath placed during this visit: yes, but has since been removed by the nurse Reason for continuing: Decision to DC catheter Insertion date: 03/22/18 Insertion time: 17:30 Removal date: 03/25/18 Removal time: 18:00 Condom Cath placed during this visit: yes, but has since been removed by the nurse Reason for continuing: Not indwelling catheter Removal date: 03/25/18 Removal time: 18:00 Results - Labs CBC & Chem 7: 03/31/18 07:38 03/31/18 07:38 Laboratory Results - last 24 hr 03/31/18 03/31/18 07:38 07:38 WBC 7.5 RBC 3.25 L Hgb 10.0 L Hct 30.0 L MCV 92.4 MCH 30.8 MCHC 33.3 RDW 13.0 Plt Count 287 MPV 7.2 Neut % (Auto) 78.5 H Lymph % (Auto) 12.7 [place] % (Auto) 7.0 Eos % (Auto) 1.2 Baso % (Auto) 0.6 Neut # (Auto) 5.9 Lymph # (Auto) 1.0 [place] # (Auto) 0.5 Eos # (Auto) 0.1 Baso # (Auto) 0.0 WBC Differential . Differential Comment Auto diff final Sodium 141 Potassium 3.4 L Chloride 108 H Carbon Dioxide 27.4 Anion Gap 6 BUN 8 Creatinine 0.58 L Estimated GFR Greater than 89 Random Glucose 126 H Calcium 8.2 L Total Bilirubin 0.4 AST 23 ALT 10 L Alkaline Phosphatase 59 Total Protein 7.6 D Albumin 2.3 L Assessment and Plan - Plan 62-year-old male admitted secondary to intracranial hemorrhage Status post tube feed placement. Tolerating tube feeds as far. Doing well. Not able to take PO currently. 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 SAH bilat frontal lobes, right parietal, temporal. Right frontotemporal SDH status post emergency craniectomy for decompression for worsening midline shift right to left 2.1 cm s/p Fall, ?syncope Daily alcohol use/Cocaine abuse s/p Right frontotemporal parietal decompressive craniectomy and Duroplasty by Dr. Chacko. Brain edema in stabilizing Neurosurgery following Continue supportive care Patient is nonverbal and not able to take p.o. treatment at this time Hydralazine 25mg Q8, Norvasc 10 daily Tube feed placement 03/30/18 Acute respiratory failure secondary to failure to protect airway-resolved extubated MRSA pneumonia Tobacco abuse Elevated carboxyhemoglobin level consistent with history of smoking Extubated 03/25/2018 Continue as needed duo nebs Respiratory status showing stability today Positive sputum culture MRSA Vancomycin and Rocephin continued DVT prophylaxis SCDs No chemoprophylaxis anticoagulation due to recent intracranial bleed Discharge planning Transitioning to full tube feed rates Awaiting neurosurgical clearance for discharge
--- NOTE | 2018-03-31 13:41 | P.PNGI ---
Subjective Interval history: Pt nonverbal. Resting in bed, in no apparent distress. TF has been started through PEG tube, currently running at 40 mL/hr. Physical Exam Vital signs: Vital Signs 03/30/18 16:00 03/30/18 21:52 03/31/18 00:00 Temperature 98 F 97.3 F L 98.1 F Pulse Rate 86 87 93 H Respiratory Rate 20 18 18 Blood Pressure 141/93 H 143/93 H 147/86 H Pulse Oximetry 98 93 L 97 03/31/18 04:00 03/31/18 08:00 03/31/18 10:41 Temperature 98.7 F 97.9 F Pulse Rate 94 H 86 Respiratory Rate 18 20 Blood Pressure 141/91 H 146/87 H Pulse Oximetry 98 97 95 03/31/18 12:00 Temperature 97.6 F Pulse Rate 97 H Respiratory Rate 20 Blood Pressure 141/88 H Pulse Oximetry 98 Intake & Output 03/30/18 03/31/18 03/31/18 18:59 06:59 18:59 Intake Total 255 / 255 350 / 350 1050 / 1050 Output Total 1200 / 1200 Balance -945 / -945 350 / 350 1049 / 1049 Weight 56.5 kg Intake: IV 255 / 255 350 / 350 1050 / 1050 LR 1000 mL Inj 1,000 ML @ 30 50 / 50 950 / 950 mls/hr IV.SIG .Q24H [facility] Rx#: [id number] KCl 20 mEq Premix Inj 20 meq In 100 / 100 100 / 100 100 ml @ 50 mls/hr IV.SIG Q2H [facility] Rx#:[id number] Vancomycin Inj 1,000 MG In NS 250 / 250 Inj 250 ML @ 250 mls/hr IV.SIG Q8H [facility] Rx#:[id number] Rocephin Inj 2,000 MG In NS Inj 100 / 100 100 ML @ 200 mls/hr IV.SIG Q24H [facility] Rx#:[id number] Keppra Inj 500 MG In NS Inj 100 105 / 105 ML @ 400 mls/hr IV.SIG Q12H [facility] Rx#:[id number] Output: Urine 1200 / 1200 Stool Other: Date of Last Bowel Movement 03/29/18 03/29/18 03/31/18 - Constitutional no acute distress - Routine Abdominal Exam Present: soft, normoactive bowel sounds. Absent: distended Comments: PEG with no active drainage or redness, covered with clean and dry gauze, TF running at 40 mL/hr - Urinary Catheter Management Indwelling Temp Sensing Catheter Cath placed during this visit: yes, but has since been removed by the nurse Reason for continuing: Not indwelling catheter Insertion date: 03/12/18 Insertion time: 05:30 Removal date: 03/25/18 Removal time: 18:00 Indwelling Urethral Catheter Cath placed during this visit: yes, but has since been removed by the nurse Reason for continuing: Decision to DC catheter Insertion date: 03/22/18 Insertion time: 17:30 Removal date: 03/25/18 Removal time: 18:00 Condom Cath placed during this visit: yes, but has since been removed by the nurse Reason for continuing: Not indwelling catheter Removal date: 03/25/18 Removal time: 18:00 Results - Labs CBC & Chem 7: 03/31/18 07:38 03/31/18 07:38 Laboratory Results - last 24 hr 03/31/18 03/31/18 03/31/18 07:38 07:38 12:30 WBC 7.5 RBC 3.25 L Hgb 10.0 L Hct 30.0 L MCV 92.4 MCH 30.8 MCHC 33.3 RDW 13.0 Plt Count 287 MPV 7.2 Neut % (Auto) 78.5 H Lymph % (Auto) 12.7 [place] % (Auto) 7.0 Eos % (Auto) 1.2 Baso % (Auto) 0.6 Neut # (Auto) 5.9 Lymph # (Auto) 1.0 [place] # (Auto) 0.5 Eos # (Auto) 0.1 Baso # (Auto) 0.0 WBC Differential . Differential Comment Auto diff final Sodium 141 Potassium 3.4 L Chloride 108 H Carbon Dioxide 27.4 Anion Gap 6 BUN 8 Creatinine 0.58 L Estimated GFR Greater than 89 Random Glucose 126 H Calcium 8.2 L Total Bilirubin 0.4 AST 23 ALT 10 L Alkaline Phosphatase 59 Total Protein 7.6 D Albumin 2.3 L Vancomycin Trough 12.7 H Assessment and Plan - Plan Assessment: - Dysphagia - Fall with injuries including intraparenchymal hemorrhage, subarachnoid hemorrhage, frontotemporal subdural hematoma. Our service has been consulted for PEG tube placement. Pt previously had NG tube that he was receiving medication and nutrition through however he took this out and is refusing it to be replaced. Pt is however agreeable to PEG placement. Pt unable to provide history but can shake his head yes and no. According to speech therapy notes, pt does not demonstrate a functional swallow response to any PO stimulation, pt did attempt to trigger a swallow however no hyopharyngeal excursion was noted. Perforator Typist has recommended Jevity 1.5 with a goal rate of 55 mL/hr. (03/31) S/P EGD with PEG yesterday with no complications. PEG to TF, running at 40 mL/hr. Pt nonverbal. Abdomen non distended, soft. PEG with no active drainage or redness. Plan: Appreciate dietary recommendations- Jevity 1.5 @ 55 mL/hr Flush PEG q 6hrs and after medications Our service will sign off, please reconsult as needed Have pt follow up with GI after DC Pt has been seen and examined by myself and Dr. Myers and this note is written on his behalf
[2018-04-01] MEDS: hydrALAZINE 25 MG Tablet PO SCH ×5 (03:50→21:39)
[2018-04-01] MEDS: Oral Hygiene Kit OROPHARYNG SCH ×4 (03:50→18:11)
[2018-04-01] MEDS: Vancomycin Inj 1,000 MG in Sodium Chlor 0.9% Inj 250 ML IV.SIG SCH ×3 (03:50→19:42)
[2018-04-01] MEDS: Carboxymethylcellulose 0.5% Opth Drops 15 ML Bottle EACH EYE SCH ×4 (03:51→21:18)
[2018-04-01 08:48] LABS: Baso % (Auto) 0.6 % (0.0-2.0); Eos # (Auto) 0.1 th/mm3 (0.0-0.4); Eos % (Auto) 2.2 % (0.0-4.0); Hematocrit 30.2 % (39.0-51.0); Hemoglobin 10.2 gm/dL (13.0-17.0); Lymph # (Auto) 0.8 th/mm3 (1.0-4.8); Mean Corpuscular HGB Conc 33.6 % (32.0-36.0); Mean Corpuscular Hemoglobin 31.3 pg (27.0-34.0); Mean Corpuscular Volume 92.9 fL (80.0-100.0); Mean Platelet Volume 7.3 fL (7.0-11.0); Mono # (Auto) 0.4 th/mm3 (0.0-0.9); Mono % (Auto) 7.5 % (0.0-8.0); Neut # (Auto) 3.8 th/mm3 (1.8-7.7); Neut % (Auto) 74.7 % (16.0-70.0); Platelet Count 288 th/mm3 (150-450); Red Blood Count 3.25 mil/mm3 (4.50-5.90); Red Cell Distribution Width 13.2 % (11.6-17.2)
[2018-04-01 09:01] LABS: Alanine Aminotransferase 11 U/L (12-78); Albumin 2.3 g/dL (3.4-5.0); Anion Gap 5 meq/L (5-15); Aspartate Aminotransferase 19 U/L (15-37); Blood Urea Nitrogen 8 mg/dL (7-18); Calcium 7.8 mg/dL (8.5-10.1); Carbon Dioxide 28.4 meq/L (21.0-32.0); Chloride 106 meq/L (98-107); Glomerular Filtration Rate Greater Than 89 mL/min (>89); Glucose,Random 109 mg/dL (74-106); Potassium 3.8 meq/L (3.5-5.1)
[2018-04-01 09:02] LABS: Sodium 139 meq/L (136-145)
[2018-04-01 09:04] LABS: Alkaline Phosphatase 65 U/L (45-117); Total Protein 7.2 g/dL (6.4-8.2)
[2018-04-01] MEDS: Folic Acid 1 MG Tablet PO SCH (09:26)
[2018-04-01] MEDS: Docusate Sodium Liq 100 MG/10 ML UDC NG/OG SCH ×2 (09:26→21:15)
[2018-04-01] MEDS: Senna/Docusate Sodium 8.6/50 MG Tablet PO SCH ×2 (09:26→21:17)
[2018-04-01] MEDS: Chlorhexidine 0.12% Oral Kit 15 ML UDC OROPHARYNG SCH ×2 (09:27→21:14)
[2018-04-01] MEDS: amLODIPine 10 MG Tablet NG/OG SCH (09:27)
[2018-04-01] MEDS: Sennosides Liq 8.8 MG/5 ML UDC NG/OG SCH ×2 (09:27→21:18)
[2018-04-01] MEDS: Polyethylene Glycol 3350 17 GM Packet NG/OG SCH ×2 (09:28→21:16)
--- NOTE | 2018-04-01 10:13 | P.PNIM ---
Subjective Interval history: Potassium levels have corrected stay. No complaints from the patient. Diet advancement as tolerated. Physical Exam Vital signs: Vital Signs 03/31/18 10:41 03/31/18 12:00 03/31/18 16:00 Temperature 97.6 F 98.6 F Pulse Rate 97 H 94 H Respiratory Rate 20 20 Blood Pressure 141/88 H 122/71 Pulse Oximetry 95 98 95 03/31/18 20:00 04/01/18 00:00 04/01/18 04:00 Temperature 98.3 F 97.7 F 97.6 F Pulse Rate 93 H 90 Respiratory Rate 18 18 18 Blood Pressure 121/82 131/83 125/75 Pulse Oximetry 96 97 100 04/01/18 08:00 Temperature Pulse Rate Respiratory Rate 18 Blood Pressure Pulse Oximetry Intake & Output 03/31/18 04/01/18 04/01/18 18:59 06:59 18:59 Intake Total 1860 / 1860 Output Total 4 / 4 Balance 1856 / 1856 Weight 56.3 kg Intake: IV 1860 / 1860 LR 1000 mL Inj 1,000 ML @ 30 1305 / 1305 mls/hr IV.SIG .Q24H [facility] Rx#: [id number] KCl 20 mEq Premix Inj 20 meq In 100 / 100 100 ml @ 50 mls/hr IV.SIG Q2H [facility] Rx#:[id number] Vancomycin Inj 1,000 MG In NS 250 / 250 Inj 250 ML @ 250 mls/hr IV.SIG Q8H [facility] Rx#:[id number] Rocephin Inj 2,000 MG In NS Inj 100 / 100 100 ML @ 200 mls/hr IV.SIG Q24H [facility] Rx#:[id number] Keppra Inj 500 MG In NS Inj 100 105 / 105 ML @ 400 mls/hr IV.SIG Q12H [facility] Rx#:[id number] Output: Urine 3 / 3 Stool 1 / Other: # Voids 3 Date of Last Bowel Movement 03/31/18 03/31/18 Narrative: GENERAL: NAD, A&Ox3, nonverbal HEAD: Normocephalic. NECK: Supple, trachea midline. No lymphadenopathy. EYES: No scleral icterus. No injection or drainage. CARDIOVASCULAR: Regular rate and rhythm without murmurs, gallops, or rubs. RESPIRATORY: Breath sounds equal bilaterally. No accessory muscle use. GASTROINTESTINAL: Abdomen soft, non-tender, nondistended. MUSCULOSKELETAL: No cyanosis, or edema. SKIN: Warm and dry. [place] on scalp. NEURO: No focal neurological deficits. - Urinary Catheter Management Indwelling Temp Sensing Catheter Cath placed during this visit: yes, but has since been removed by the nurse Reason for continuing: Not indwelling catheter Insertion date: 03/12/18 Insertion time: 05:30 Removal date: 03/25/18 Removal time: 18:00 Indwelling Urethral Catheter Cath placed during this visit: yes, but has since been removed by the nurse Reason for continuing: Decision to DC catheter Insertion date: 03/22/18 Insertion time: 17:30 Removal date: 03/25/18 Removal time: 18:00 Condom Cath placed during this visit: yes, but has since been removed by the nurse Reason for continuing: Not indwelling catheter Removal date: 03/25/18 Removal time: 18:00 Results - Labs CBC & Chem 7: 04/01/18 07:16 04/01/18 07:16 Laboratory Results - last 24 hr 03/31/18 04/01/18 04/01/18 12:30 07:16 07:16 WBC 5.0 RBC 3.25 L Hgb 10.2 L Hct 30.2 L MCV 92.9 MCH 31.3 MCHC 33.6 RDW 13.2 Plt Count 288 MPV 7.3 Neut % (Auto) 74.7 H Lymph % (Auto) 15.0 [place] % (Auto) 7.5 Eos % (Auto) 2.2 Baso % (Auto) 0.6 Neut # (Auto) 3.8 Lymph # (Auto) 0.8 L [place] # (Auto) 0.4 Eos # (Auto) 0.1 Baso # (Auto) 0.0 WBC Differential . Differential Comment Auto diff final Sodium 139 Potassium 3.8 Chloride 106 Carbon Dioxide 28.4 Anion Gap 5 BUN 8 Creatinine 0.54 L Estimated GFR Greater than 89 Random Glucose 109 H Calcium 7.8 L Total Bilirubin 0.3 AST 19 ALT 11 L Alkaline Phosphatase 65 Total Protein 7.2 Albumin 2.3 L Vancomycin Trough 12.7 H Assessment and Plan - Plan 62-year-old male admitted secondary to intracranial hemorrhage Advance tube feeds as tolerated. Doing well. Not able to take PO currently. 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 SAH bilat frontal lobes, right parietal, temporal. Right frontotemporal SDH status post emergency craniectomy for decompression for worsening midline shift right to left 2.1 cm s/p Fall, ?syncope Daily alcohol use/Cocaine abuse s/p Right frontotemporal parietal decompressive craniectomy and Duroplasty by Dr. Chacko. Brain edema in stabilizing Neurosurgery following Continue supportive care Patient is nonverbal and not able to take p.o. treatment at this time Hydralazine 25mg Q8, Norvasc 10 daily Tube feed placement 03/30/18 Acute respiratory failure secondary to failure to protect airway-resolved extubated MRSA pneumonia Tobacco abuse Elevated carboxyhemoglobin level consistent with history of smoking Extubated 03/25/2018 Continue as needed duo nebs Respiratory status showing stability today Positive sputum culture MRSA Vancomycin and Rocephin continued DVT prophylaxis SCDs No chemoprophylaxis anticoagulation due to recent intracranial bleed Discharge planning Transitioning to full tube feed rates Awaiting neurosurgical clearance for discharge
[2018-04-01] MEDS: Sodium Chloride 1 GM Tablet PO SCH ×2 (11:21→21:30)
--- NOTE | 2018-04-01 16:49 | P.DIET ---
Nutritional Evaluation Type of nutrition evaluation: initial Nutrition consult regarding: Tube Feeding Objective - Diagnosis ICH, SAH, Syncope - Objective % IBW: 87 (IBW = 166#) Body Weight Used for Calculations: Actual (65.4 kg) Energy Needs - Lower Range (kCal/kg): 28 Energy Needs - Upper Range (kCal/kg): 33 Lower Limit kCal/kg (kCals): 1,831 Upper Limit kCal/kg (kCals): 2,158 Lower Limit Protein Factor (Grams per Kg): 1.2 Upper Limit Protein Factor (Grams per Kg): 1.5 Lower Protein Needs (Protein): 79 Upper Protein Needs (Protein): 98 Dietitian Reviewed in Medical Record: Curent medications, Intake & Output, Labs , Medical history, Tube feeding Diet Order: NPO Speech Therapy Recommendations: Yes Objective Comments: PMH: COPD, Asthma, tobacco abuse, daily ETOH use 03/22 R fromtotemporal parietal decompressive crani Feeding - Current Tube Feeding Tube Feeding Product: Jevity 1.5 Tube Feeding Rate: 45 (mls/hr) Tube Feeding Route: gastrostomy Assessment Assessment: Pt remains at high nutrition risk 2' to his need for TFing. He is s/p R frontotemporal parietal decompressive crani for worsening midline sgift. He was extubated on 03/25 and PEG has been placed. To meet needs with Jevity 1.5, recommend a goal rate of 55 mls/hr to provide 1980 kcals, 84 gms protein and 1003 mls of free water. Labs, wts and clinical course reviewed. CBW = 56.3 kg which indicates wt loss. Recommendations: TF Jevity 1.5 with goal rate 55 ml/hr Dietitian to Monitor: Lab values, Intake & Output, Tube feeding tolerance, Weight change, Residuals, Medical course
[2018-04-01] MEDS: Morphine Inj 4 MG/ML Vial IV.PUSH PRN (21:31)
[2018-04-02] MEDS: Oral Hygiene Kit OROPHARYNG SCH ×4 (00:02→18:06)
[2018-04-02] MEDS: Vancomycin Inj 1,000 MG in Sodium Chlor 0.9% Inj 250 ML IV.SIG SCH ×3 (01:43→18:08)
[2018-04-02] MEDS ORDERED: Pharmacy Ordered Lab Info OTHER ONE (01:45)
[2018-04-02] MEDS: Morphine Inj 4 MG/ML Vial IV.PUSH PRN ×2 (05:13→13:01)
[2018-04-02 09:19] LABS: Baso % (Auto) 0.7 % (0.0-2.0); Eos # (Auto) 0.1 th/mm3 (0.0-0.4); Eos % (Auto) 2.7 % (0.0-4.0); Hematocrit 28.9 % (39.0-51.0); Hemoglobin 9.7 gm/dL (13.0-17.0); Lymph # (Auto) 0.8 th/mm3 (1.0-4.8); Mean Corpuscular HGB Conc 33.5 % (32.0-36.0); Mean Corpuscular Hemoglobin 30.9 pg (27.0-34.0); Mean Corpuscular Volume 92.1 fL (80.0-100.0); Mean Platelet Volume 7.1 fL (7.0-11.0); Mono # (Auto) 0.4 th/mm3 (0.0-0.9); Mono % (Auto) 9.3 % (0.0-8.0); Neut # (Auto) 2.9 th/mm3 (1.8-7.7); Neut % (Auto) 68.3 % (16.0-70.0); Platelet Count 293 th/mm3 (150-450); Red Blood Count 3.14 mil/mm3 (4.50-5.90); Red Cell Distribution Width 13.3 % (11.6-17.2); White Blood Count 4.2 th/mm3 (4.0-11.0)
[2018-04-02] MEDS: Senna/Docusate Sodium 8.6/50 MG Tablet PO SCH ×2 (09:30→20:24)
[2018-04-02] MEDS: amLODIPine 10 MG Tablet NG/OG SCH (09:30)
[2018-04-02] MEDS: hydrALAZINE 25 MG Tablet PO SCH ×4 (09:30→18:06)
[2018-04-02] MEDS: Folic Acid 1 MG Tablet PO SCH (09:30)
[2018-04-02] MEDS: Chlorhexidine 0.12% Oral Kit 15 ML UDC OROPHARYNG SCH ×2 (09:31→20:25)
[2018-04-02] MEDS: Docusate Sodium Liq 100 MG/10 ML UDC NG/OG SCH ×2 (09:32→20:25)
[2018-04-02] MEDS: Polyethylene Glycol 3350 17 GM Packet NG/OG SCH ×2 (09:32→20:25)
[2018-04-02] MEDS: Carboxymethylcellulose 0.5% Opth Drops 15 ML Bottle EACH EYE SCH ×2 (09:33→13:06)
[2018-04-02] MEDS: Sennosides Liq 8.8 MG/5 ML UDC NG/OG SCH ×2 (09:33→20:26)
[2018-04-02 09:38] LABS: Albumin 2.1 g/dL (3.4-5.0); Anion Gap 5 meq/L (5-15); Aspartate Aminotransferase 20 U/L (15-37); Blood Urea Nitrogen 8 mg/dL (7-18); Calcium 8.1 mg/dL (8.5-10.1); Chloride 106 meq/L (98-107); Glomerular Filtration Rate Greater Than 89 mL/min (>89); Glucose,Random 91 mg/dL (74-106); Potassium 3.9 meq/L (3.5-5.1); Sodium 140 meq/L (136-145)
[2018-04-02 09:42] LABS: Alanine Aminotransferase 9 U/L (12-78); Alkaline Phosphatase 65 U/L (45-117); Total Protein 6.9 g/dL (6.4-8.2)
--- NOTE | 2018-04-02 11:37 | P.PNIM ---
Subjective Interval history: PATIENT REMAINS NON VERBAL NO NEW COMPLAINTS DW RN AND CM Physical Exam Vital signs: Vital Signs 04/01/18 13:41 04/01/18 16:00 04/01/18 16:50 Temperature 97.3 F L Pulse Rate 83 80 Respiratory Rate 18 Blood Pressure 124/78 109/68 Pulse Oximetry 98 97 04/01/18 20:00 04/02/18 00:00 04/02/18 04:00 Temperature 98.1 F 98.3 F 98.5 F Pulse Rate 97 H 89 90 Respiratory Rate 18 Blood Pressure 143/76 H 128/75 130/77 Pulse Oximetry 98 98 100 04/02/18 08:56 Temperature 98.4 F Pulse Rate 71 Respiratory Rate 16 Blood Pressure 121/76 Pulse Oximetry 97 Intake & Output 04/01/18 04/02/18 04/02/18 18:59 06:59 18:59 Intake Total 455 / 455 355 / 355 Balance 455 / 455 355 / 355 Weight 55.8 kg Intake: IV 455 / 455 355 / 355 Vancomycin Inj 1,000 MG In NS 250 / 250 250 / 250 Inj 250 ML @ 250 mls/hr IV.SIG Q8H PEDRO [facility]IS Rx#:[id number] Rocephin Inj 2,000 MG In NS Inj 100 / 100 100 ML @ 200 mls/hr IV.SIG Q24H PEDRO [facility]IS Rx#:[id number] Keppra Inj 500 MG In NS Inj 100 105 / 105 105 / 105 ML @ 400 mls/hr IV.SIG Q12H PEDRO LUIS Rx#:[id number] Other: # Voids 1 # Incontinent Voids 2 Date of Last Bowel Movement 04/01/18 # Bowel Movements 1 # Incontinent Bowel Movements 1 Narrative: GENERAL: NAD, A&Ox1, nonverbal HEAD: Normocephalic. HAS HAD CRANIECTOMY NO FLAP ON RIGHT SIDE NECK: Supple, trachea midline. No lymphadenopathy. EYES: No scleral icterus. No injection or drainage. CARDIOVASCULAR: Regular rate and rhythm without murmurs, gallops, or rubs. S1, S2 NO S3 OR S4 RESPIRATORY: Breath sounds equal bilaterally. No accessory muscle use. GASTROINTESTINAL: Abdomen soft, non-tender, nondistended. MUSCULOSKELETAL: No cyanosis, or edema. SKIN: Warm and dry. [place] on scalp. RIGHT SIDE OF HEAD NO BONE FLAP NEURO: No focal neurological deficits. - Urinary Catheter Management Indwelling Temp Sensing Catheter Cath placed during this visit: yes, but has since been removed by the nurse Reason for continuing: Not indwelling catheter Insertion date: 03/12/18 Insertion time: 05:30 Removal date: 03/25/18 Removal time: 18:00 Indwelling Urethral Catheter Cath placed during this visit: yes, but has since been removed by the nurse Reason for continuing: Decision to DC catheter Insertion date: 03/22/18 Insertion time: 17:30 Removal date: 03/25/18 Removal time: 18:00 Condom Cath placed during this visit: yes, but has since been removed by the nurse Reason for continuing: Not indwelling catheter Removal date: 03/25/18 Removal time: 18:00 Results - Labs CBC & Chem 7: 04/02/18 08:16 04/02/18 08:16 Laboratory Results - last 24 hr 04/02/18 04/02/18 04/02/18 01:40 08:16 08:16 WBC 4.2 RBC 3.14 L Hgb 9.7 L Hct 28.9 L MCV 92.1 MCH 30.9 MCHC 33.5 RDW 13.3 Plt Count 293 MPV 7.1 Neut % (Auto) 68.3 Lymph % (Auto) 19.0 [place] % (Auto) 9.3 H Eos % (Auto) 2.7 Baso % (Auto) 0.7 Neut # (Auto) 2.9 Lymph # (Auto) 0.8 L [place] # (Auto) 0.4 Eos # (Auto) 0.1 Baso # (Auto) 0.0 WBC Differential . Differential Comment Auto diff final Sodium 140 Potassium 3.9 Chloride 106 Carbon Dioxide 29.0 Anion Gap 5 BUN 8 Creatinine 0.54 L Estimated GFR Greater than 89 Random Glucose 91 Calcium 8.1 L Total Bilirubin 0.2 AST 20 ALT 9 L Alkaline Phosphatase 65 Total Protein 6.9 Albumin 2.1 L Vancomycin Trough 19.7 H - Imaging Head CT 03/08/18 11:20 CONCLUSION: 1. Large area of evolving hematoma right frontal lobe with increasing vasogenic edema and ubpnw-no-fjgi midline shift now 2.2 cm. This is more prominent on current study. 2. Small right subdural hematoma measures 5 mm not significantly changed. Abdomen X-Ray 03/09/18 00:00 CONCLUSION: Adequate placement of a nasogastric tube Chest X-Ray 03/09/18 17:43 CONCLUSION: NG and left central line in good position. No acute findings. Chest X-Ray 03/11/18 00:00 CONCLUSION: 1. ET tube in good position. 2. No evidence of pneumothorax. Head CT 03/11/18 00:00 CONCLUSION: 1. No significant change in the large intraparenchymal hemorrhage surrounded by edema involving most of the right frontal lobe. 2. No significant change with the 4 mm right subdural hematoma. 3. There continues to be mass effect and midline shift to the left by approximately 1.1 cm. Chest X-Ray 03/11/18 13:00 CONCLUSION: Support apparatus as above. No acute findings. Abdomen X-Ray 03/12/18 00:00 CONCLUSION: Gaseous distention of bowel loops, not significantly changed. Abdomen/Pelvis CT 03/13/18 00:00 CONCLUSION: 1. Moderate constipation with diffuse ileus. Rectum distended to 8 cm with stool. No small bowel obstruction. No significant free fluid. No free air. 2. Dodge catheter in bladder. NG coiled in stomach. Trace right pleural effusion. Chest X-Ray 03/13/18 12:09 CONCLUSION: No acute cardiopulmonary disease identified. Abdomen X-Ray 03/14/18 06:00 CONCLUSION: 1. Findings consistent with colonic ileus. Chest X-Ray 03/14/18 06:00 CONCLUSION: 1. Stable tubes and lines. 2. No acute abnormality or significant interval change. Head CT 03/15/18 00:00 CONCLUSION: 1. Evolving right frontal lobe parenchymal hemorrhage with cerebral edema and worsening leftward midline shift. 2. Minimal left frontal and parietal subarachnoid blood without associated mass effect. Abdomen X-Ray 03/17/18 08:00 CONCLUSION: Reduction in the gaseous distention of the colon. Head CT 03/21/18 00:00 CONCLUSION: 1. There has been an interval increase in the amount of byufo-os-whdu midline shift in the frontal region, now measuring 2.1 cm. 2. Involving right frontal blood products with further decrease in the density of the right frontal hematoma. Chest X-Ray 03/21/18 11:20 CONCLUSION: Under inflation with atelectasis at the lung bases. Otherwise, no acute finding is identified. Chest X-Ray 03/22/18 10:19 CONCLUSION: No acute cardiopulmonary disease. Chest X-Ray 03/25/18 06:00 CONCLUSION: Lungs remain clear. No significant change line/tube positions as above. Chest X-Ray 03/26/18 06:00 CONCLUSION: Endotracheal tube and nasogastric tube no longer seen. No acute cardiopulmonary disease identified. Chest X-Ray 03/28/18 06:00 CONCLUSION: 1. Lungs are clear. 2. Interval placement of a nasogastric tube with the tip projecting over the expected location of the gastric fundus - Procedures PEG right decompressive craniectomy 03/22/18 with placement of ICP monitor by Dr. Chacko, co'ed 03/23/18 03/22/18 Right frontotemporal parietal decompressive craniectomy and Duroplasty 03/22/18 Left frontal bur hole with placement of an intracranial pressure monitor Assessment and Plan - Plan 62-year-old male admitted secondary to intracranial hemorrhage Advance tube feeds as tolerated. Doing well. Not able to take PO currently. 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 SAH bilat frontal lobes, right parietal, temporal. Right frontotemporal SDH status post emergency craniectomy for decompression for worsening midline shift right to left 2.1 cm s/p Fall, ?syncope Daily alcohol use/Cocaine abuse s/p Right frontotemporal parietal decompressive craniectomy and Duroplasty by Dr. Chacko. Brain edema in stabilizing Neurosurgery following Continue supportive care Patient is nonverbal and not able to take p.o. treatment at this time Hydralazine 25mg Q8, Norvasc 10 daily Tube feed placement 03/30/18 Acute respiratory failure secondary to failure to protect airway-resolved extubated MRSA pneumonia Tobacco abuse Elevated carboxyhemoglobin level consistent with history of smoking Extubated 03/25/2018 Continue as needed duo nebs Respiratory status showing stability today Positive sputum culture MRSA Vancomycin and Rocephin continued DVT prophylaxis SCDs No chemoprophylaxis anticoagulation due to recent intracranial bleed Discharge planning Transitioning to full tube feed rates Awaiting neurosurgical clearance for discharge Code Status: FULL CODE Discussed Condition With: RN AND CM Discharge Planning: CLEARANCE BY NEUROSURGERY
[2018-04-02] MEDS: Sodium Chloride 1 GM Tablet PO SCH ×2 (12:10→12:51)
[2018-04-03] MEDS: Sodium Chloride 1 GM Tablet PO SCH ×3 (00:08→22:13)
[2018-04-03] MEDS: hydrALAZINE 25 MG Tablet PO SCH ×5 (00:09→23:47)
[2018-04-03] MEDS: Carboxymethylcellulose 0.5% Opth Drops 15 ML Bottle EACH EYE SCH ×4 (00:11→22:11)
[2018-04-03] MEDS: Vancomycin Inj 1,000 MG in Sodium Chlor 0.9% Inj 250 ML IV.SIG SCH (03:41)
[2018-04-03] MEDS: Oral Hygiene Kit OROPHARYNG SCH ×4 (03:42→23:48)
[2018-04-03] MEDS: Docusate Sodium Liq 100 MG/10 ML UDC NG/OG SCH ×2 (09:02→22:07)
[2018-04-03] MEDS: Folic Acid 1 MG Tablet PO SCH (09:03)
[2018-04-03] MEDS: amLODIPine 10 MG Tablet NG/OG SCH (09:03)
[2018-04-03] MEDS: Polyethylene Glycol 3350 17 GM Packet NG/OG SCH ×2 (09:03→22:10)
[2018-04-03] MEDS: Chlorhexidine 0.12% Oral Kit 15 ML UDC OROPHARYNG SCH ×2 (09:04→22:06)
[2018-04-03] MEDS: Senna/Docusate Sodium 8.6/50 MG Tablet PO SCH ×2 (09:04→22:11)
[2018-04-03] MEDS: Sennosides Liq 8.8 MG/5 ML UDC NG/OG SCH ×2 (09:05→22:11)
[2018-04-03] MEDS ORDERED: Pharmacy Ordered Lab Info OTHER ONE (09:45)
[2018-04-03] MEDS: Vancomycin Inj 750 MG in Sodium Chlor 0.9% Inj 250 ML IV.SIG SCH ×2 (13:00→22:06)
--- NOTE | 2018-04-03 14:17 | P.PN ---
Subjective Interval history: Follow-up on patient with intracranial hemorrhage. Patient seen and examined. Patient is nonverbal. Does follow some simple commands. Discussed with nursing staff, no acute issues noted. Physical Exam Vital signs: Vital Signs 04/02/18 16:00 04/02/18 17:33 04/02/18 20:00 Temperature 98.8 F 97.7 F Pulse Rate 79 87 Respiratory Rate 16 16 18 Blood Pressure 107/70 118/69 Pulse Oximetry 94 L 96 04/02/18 21:19 04/03/18 00:00 04/03/18 04:00 Temperature 98.0 F 97.6 F Pulse Rate 79 91 H Respiratory Rate 16 18 18 Blood Pressure 113/66 120/67 Pulse Oximetry 96 97 04/03/18 09:52 04/03/18 12:52 Temperature 98.3 F 98.3 F Pulse Rate 77 78 Respiratory Rate 16 16 Blood Pressure 115/70 119/67 Pulse Oximetry 98 97 Intake & Output 04/02/18 04/03/18 04/03/18 18:59 06:59 18:59 Intake Total 1720 / 1720 1925 / 1925 Output Total 1664 / 1664 Balance 1720 / 1720 261 / 261 Weight 56.5 kg Intake: IV 350 / 350 355 / 355 Vancomycin Inj 1,000 MG In NS 250 / 250 250 / 250 Inj 250 ML @ 250 mls/hr IV.SIG Q8H [facility]RO [facility] Rx#:[id number] Rocephin Inj 2,000 MG In NS Inj 100 / 100 100 ML @ 200 mls/hr IV.SIG Q24H PEDRO LU[facility] Rx#:[id number] Keppra Inj 500 MG In NS Inj 100 105 / 105 ML @ 400 mls/hr IV.SIG Q12H PEDRO LUIS Rx#:[id number] Oral 0 / 0 0 / 0 Tube Feeding 540 / 540 540 / 540 Tube Irrigant 30 / 30 30 / 30 Water Bolus Amount 200 / 200 Anesthesia Amount 800 / 800 800 / 800 Output: Urine 753 / 753 Stool 1 / 1 Urine Amount (Catheter) 850 / 850 Condom 850 / 850 Wound Drainage 60 / 60 Head 60 / 60 Other: Post Void Residual 300 # Voids 1 # Incontinent Voids 3 3 Date of Last Bowel Movement 04/02/18 04/02/18 # Bowel Movements 1 1 # Incontinent Bowel Movements 1 Narrative: GENERAL: This is a thin, frail, -[place] male patient INAD. Nonverbal. SKIN: Warm and dry. No generalized rash. HEAD: Normocephalic. HAS HAD CRANIECTOMY ON RIGHT SIDE, khurram intact, no bone flap NECK: Supple, trachea midline. No lymphadenopathy. EYES: No scleral icterus. No injection or drainage. CARDIOVASCULAR: Regular rate and rhythm without murmurs, gallops, or rubs. RESPIRATORY: Breath sounds equal bilaterally. No accessory muscle use. Poor effort, clear to auscultation anteriorly. GASTROINTESTINAL: Abdomen soft, non-tender, nondistended. MUSCULOSKELETAL: No cyanosis or edema. NEURO: Awake. Nonverbal. Will follow some simple commands. - Urinary Catheter Management Indwelling Temp Sensing Catheter Cath placed during this visit: yes, but has since been removed by the nurse Reason for continuing: Not indwelling catheter Insertion date: 03/12/18 Insertion time: 05:30 Removal date: 03/25/18 Removal time: 18:00 Indwelling Urethral Catheter Cath placed during this visit: yes, but has since been removed by the nurse Reason for continuing: Decision to DC catheter Insertion date: 03/22/18 Insertion time: 17:30 Removal date: 03/25/18 Removal time: 18:00 Condom Cath placed during this visit: yes, but has since been removed by the nurse Reason for continuing: Not indwelling catheter Removal date: 03/25/18 Removal time: 18:00 Results - Labs CBC & Chem 7: 04/03/18 16:14 04/03/18 16:14 Laboratory Results - last 24 hr 04/03/18 09:30 Vancomycin Trough 20.6 H - Imaging Head CT 03/08/18 11:20 CONCLUSION: 1. Large area of evolving hematoma right frontal lobe with increasing vasogenic edema and btcez-gs-dwug midline shift now 2.2 cm. This is more prominent on current study. 2. Small right subdural hematoma measures 5 mm not significantly changed. Abdomen X-Ray 03/09/18 00:00 CONCLUSION: Adequate placement of a nasogastric tube Chest X-Ray 03/09/18 17:43 CONCLUSION: NG and left central line in good position. No acute findings. Chest X-Ray 03/11/18 00:00 CONCLUSION: 1. ET tube in good position. 2. No evidence of pneumothorax. Head CT 03/11/18 00:00 CONCLUSION: 1. No significant change in the large intraparenchymal hemorrhage surrounded by edema involving most of the right frontal lobe. 2. No significant change with the 4 mm right subdural hematoma. 3. There continues to be mass effect and midline shift to the left by approximately 1.1 cm. Chest X-Ray 03/11/18 13:00 CONCLUSION: Support apparatus as above. No acute findings. Abdomen X-Ray 03/12/18 00:00 CONCLUSION: Gaseous distention of bowel loops, not significantly changed. Abdomen/Pelvis CT 03/13/18 00:00 CONCLUSION: 1. Moderate constipation with diffuse ileus. Rectum distended to 8 cm with stool. No small bowel obstruction. No significant free fluid. No free air. 2. Dodge catheter in bladder. NG coiled in stomach. Trace right pleural effusion. Chest X-Ray 03/13/18 12:09 CONCLUSION: No acute cardiopulmonary disease identified. Abdomen X-Ray 03/14/18 06:00 CONCLUSION: 1. Findings consistent with colonic ileus. Chest X-Ray 03/14/18 06:00 CONCLUSION: 1. Stable tubes and lines. 2. No acute abnormality or significant interval change. Head CT 03/15/18 00:00 CONCLUSION: 1. Evolving right frontal lobe parenchymal hemorrhage with cerebral edema and worsening leftward midline shift. 2. Minimal left frontal and parietal subarachnoid blood without associated mass effect. Abdomen X-Ray 03/17/18 08:00 CONCLUSION: Reduction in the gaseous distention of the colon. Head CT 03/21/18 00:00 CONCLUSION: 1. There has been an interval increase in the amount of hnqiw-lx-eaot midline shift in the frontal region, now measuring 2.1 cm. 2. Involving right frontal blood products with further decrease in the density of the right frontal hematoma. Chest X-Ray 03/21/18 11:20 CONCLUSION: Under inflation with atelectasis at the lung bases. Otherwise, no acute finding is identified. Chest X-Ray 03/22/18 10:19 CONCLUSION: No acute cardiopulmonary disease. Chest X-Ray 03/25/18 06:00 CONCLUSION: Lungs remain clear. No significant change line/tube positions as above. Chest X-Ray 03/26/18 06:00 CONCLUSION: Endotracheal tube and nasogastric tube no longer seen. No acute cardiopulmonary disease identified. Chest X-Ray 03/28/18 06:00 CONCLUSION: 1. Lungs are clear. 2. Interval placement of a nasogastric tube with the tip projecting over the expected location of the gastric fundus - Procedures PEG right decompressive craniectomy 03/22/18 with placement of ICP monitor by Dr. Chacko, [facility] 03/23/18 03/22/18 Right frontotemporal parietal decompressive craniectomy and Duroplasty 03/22/18 Left frontal bur hole with placement of an intracranial pressure monitor Assessment and Plan - Plan 62-year-old male admitted secondary to intracranial hemorrhage Right frontal IPH 53.3 cm. SAH bilat frontal lobes, right parietal, temporal. Right frontotemporal SDH status post emergency craniectomy for decompression for worsening midline shift right to left 2.1 cm s/p Fall, ?syncope Daily alcohol use/Cocaine abuse s/p Right frontotemporal parietal decompressive craniectomy and Duroplasty by Dr. Chacko. Brain edema is stabilizing Neurosurgery following Continue supportive care Patient is nonverbal and not able to take p.o. treatment at this time. Continue TF. Hydralazine 25mg Q8, Norvasc 10 daily Tube feed placement 03/30/18 Continue with PT/OT Acute respiratory failure secondary to failure to protect airway-resolved extubated MRSA pneumonia Tobacco abuse Elevated carboxyhemoglobin level consistent with history of smoking Extubated 03/25/2018 Continue as needed duo nebs Respiratory status showing stability today Positive sputum culture MRSA Vancomycin and Rocephin continued DVT prophylaxis SCDs No chemoprophylaxis anticoagulation due to recent intracranial bleed
[2018-04-03 16:55] LABS: Baso % (Auto) 0.9 % (0.0-2.0); Eos # (Auto) 0.1 th/mm3 (0.0-0.4); Hematocrit 31.3 % (39.0-51.0); Hemoglobin 10.4 gm/dL (13.0-17.0); Mean Corpuscular HGB Conc 33.2 % (32.0-36.0); Mean Corpuscular Hemoglobin 30.9 pg (27.0-34.0); Mean Corpuscular Volume 93.1 fL (80.0-100.0); Mean Platelet Volume 7.3 fL (7.0-11.0); Mono # (Auto) 0.5 th/mm3 (0.0-0.9); Mono % (Auto) 11.1 % (0.0-8.0); Neut # (Auto) 2.7 th/mm3 (1.8-7.7); Platelet Count 328 th/mm3 (150-450); Red Blood Count 3.37 mil/mm3 (4.50-5.90); Red Cell Distribution Width 13.1 % (11.6-17.2); White Blood Count 4.3 th/mm3 (4.0-11.0)
[2018-04-03 17:12] LABS: Albumin 2.5 g/dL (3.4-5.0); Anion Gap 4 meq/L (5-15); Aspartate Aminotransferase 20 U/L (15-37); Blood Urea Nitrogen 10 mg/dL (7-18); Calcium 8.3 mg/dL (8.5-10.1); Carbon Dioxide 30.6 meq/L (21.0-32.0); Chloride 105 meq/L (98-107); Glomerular Filtration Rate Greater Than 89 mL/min (>89); Glucose,Random 96 mg/dL (74-106); Magnesium 2.3 mg/dL (1.5-2.5); Potassium 4.2 meq/L (3.5-5.1); Sodium 140 meq/L (136-145)
[2018-04-03 17:21] LABS: Alanine Aminotransferase 11 U/L (12-78); Alkaline Phosphatase 69 U/L (45-117); Free T4 (Free Thyroxine) 1.31 ng/dL (0.76-1.46); Phosphorus 3.9 mg/dL (2.5-4.9); Total Protein 7.4 g/dL (6.4-8.2)
[2018-04-04] MEDS: Vancomycin Inj 750 MG in Sodium Chlor 0.9% Inj 250 ML IV.SIG SCH ×3 (06:13→22:14)
[2018-04-04] MEDS: Oral Hygiene Kit OROPHARYNG SCH ×3 (06:13→15:16)
[2018-04-04] MEDS: hydrALAZINE 25 MG Tablet PO SCH ×4 (06:14→22:19)
[2018-04-04] MEDS: Carboxymethylcellulose 0.5% Opth Drops 15 ML Bottle EACH EYE SCH ×3 (06:15→22:16)
[2018-04-04] MEDS: Senna/Docusate Sodium 8.6/50 MG Tablet PO SCH (08:27)
[2018-04-04] MEDS: Polyethylene Glycol 3350 17 GM Packet NG/OG SCH (08:28)
[2018-04-04] MEDS: Chlorhexidine 0.12% Oral Kit 15 ML UDC OROPHARYNG SCH ×2 (08:28→22:13)
[2018-04-04] MEDS: Docusate Sodium Liq 100 MG/10 ML UDC NG/OG SCH (08:28)
[2018-04-04] MEDS: amLODIPine 10 MG Tablet NG/OG SCH (08:28)
[2018-04-04] MEDS: Folic Acid 1 MG Tablet PO SCH (08:28)
[2018-04-04] MEDS: Sennosides Liq 8.8 MG/5 ML UDC NG/OG SCH ×2 (08:29→22:15)
--- NOTE | 2018-04-04 10:42 | P.PN ---
Subjective Interval history: Follow-up on patient with intracranial hemorrhage. Patient seen and examined. Patient remains nonverbal but will shake his head yes and no and answer to questioning. Per nursing staff yesterday, patient will occasionally speak a few words. Patient does not indicate any acute medical issues at this time. He is afebrile. VSS. Physical Exam Vital signs: Vital Signs 04/03/18 12:52 04/03/18 20:00 04/04/18 00:00 Temperature 98.3 F 97 F L 98.4 F Pulse Rate 78 83 89 Respiratory Rate 16 20 20 Blood Pressure 119/67 103/71 105/72 Pulse Oximetry 97 98 97 04/04/18 04:00 04/04/18 08:00 Temperature 97.9 F 98.2 F Pulse Rate 82 81 Respiratory Rate 20 20 Blood Pressure 125/78 116/71 Pulse Oximetry 97 97 Intake & Output 04/03/18 04/04/18 04/04/18 18:59 06:59 18:59 Intake Total 997.5 / 997.5 362.5 / 362.5 Output Total 1500 / 1500 1380 / 1380 Balance -502.5 / -502.5 -1017.5 / -1017.5 Weight 56.4 kg Intake: IV 357.5 / 357.5 362.5 / 362.5 Vancomycin Inj 750 MG In NS Inj 257.5 / 257.5 257.5 / 257.5 250 ML @ 250 mls/hr IV.SIG Q8H PEDRO LUIS Rx#:[id number] Rocephin Inj 2,000 MG In NS Inj 100 / 100 100 ML @ 200 mls/hr IV.SIG Q24H PEDRO LUIS Rx#:[id number] Keppra Inj 500 MG In NS Inj 100 105 / 105 ML @ 400 mls/hr IV.SIG Q12H PEDRO LUIS Rx#:[id number] Oral 0 / 0 Tube Feeding 540 / 540 Tube Irrigant 100 / 100 Output: Urine 1380 / 1380 Urine Amount (Catheter) 1500 / 1500 Condom 1500 / 1500 Other: Date of Last Bowel Movement 04/02/18 04/02/18 Narrative: GENERAL: This is a thin, frail, -[place] male patient INAD. Nonverbal. Lying in bed with sheet over his head. SKIN: Warm and dry. No generalized rash. HEAD: s/p right sided craniectomy, khurram intact, no bone flap NECK: Supple, trachea midline. No lymphadenopathy. EYES: No scleral icterus. No injection or drainage. CARDIOVASCULAR: Regular rate and rhythm without murmurs, gallops, or rubs. RESPIRATORY: Breath sounds equal bilaterally. No accessory muscle use. Poor effort, clear to auscultation anteriorly. GASTROINTESTINAL: Abdomen soft, non-tender, nondistended. PEG site C/D/I. GENITOURINARY: Dodge catheter in place with clear urine in bag. MUSCULOSKELETAL: No cyanosis or edema. NEURO: Awake. Nonverbal. Will follow some simple commands. Able to squeeze with both hands, turkish line attendant strength greater on right. Able to wiggle toes of both feet. PSYCHIATRIC: Calm. - Urinary Catheter Management Indwelling Temp Sensing Catheter Cath placed during this visit: yes, but has since been removed by the nurse Reason for continuing: Not indwelling catheter Insertion date: 03/12/18 Insertion time: 05:30 Removal date: 03/25/18 Removal time: 18:00 Indwelling Urethral Catheter Cath placed during this visit: yes, but has since been removed by the nurse Reason for continuing: Decision to DC catheter Insertion date: 03/22/18 Insertion time: 17:30 Removal date: 03/25/18 Removal time: 18:00 Condom Cath placed during this visit: yes, but has since been removed by the nurse Reason for continuing: Not indwelling catheter Removal date: 03/25/18 Removal time: 18:00 Results - Labs CBC & Chem 7: 04/03/18 16:14 04/03/18 16:14 Laboratory Results - last 24 hr 04/03/18 04/03/18 04/03/18 09:30 16:14 16:14 WBC 4.3 RBC 3.37 L Hgb 10.4 L Hct 31.3 L MCV 93.1 MCH 30.9 MCHC 33.2 RDW 13.1 Plt Count 328 MPV 7.3 Neut % (Auto) 62.0 Lymph % (Auto) 23.0 [place] % (Auto) 11.1 H Eos % (Auto) 3.0 Baso % (Auto) 0.9 Neut # (Auto) 2.7 Lymph # (Auto) 1.0 [place] # (Auto) 0.5 Eos # (Auto) 0.1 Baso # (Auto) 0.0 WBC Differential . Differential Comment Auto diff final Sodium 140 Potassium 4.2 Chloride 105 Carbon Dioxide 30.6 Anion Gap 4 L BUN 10 Creatinine 0.56 L Estimated GFR Greater than 89 Random Glucose 96 Calcium 8.3 L Phosphorus 3.9 Magnesium 2.3 Total Bilirubin 0.2 AST 20 ALT 11 L Alkaline Phosphatase 69 Total Protein 7.4 Albumin 2.5 L TSH 2.600 Free T4 1.31 Vancomycin Trough 20.6 H - Imaging ITS Impressions Abdomen/Pelvis CT 03/13/18 00:00 CONCLUSION: 1. Moderate constipation with diffuse ileus. Rectum distended to 8 cm with stool. No small bowel obstruction. No significant free fluid. No free air. 2. Dodge catheter in bladder. NG coiled in stomach. Trace right pleural effusion. Abdomen X-Ray 03/17/18 08:00 CONCLUSION: Reduction in the gaseous distention of the colon. Head CT 03/21/18 00:00 CONCLUSION: 1. There has been an interval increase in the amount of aefhi-su-tutz midline shift in the frontal region, now measuring 2.1 cm. 2. Involving right frontal blood products with further decrease in the density of the right frontal hematoma. Chest X-Ray 03/28/18 06:00 CONCLUSION: 1. Lungs are clear. 2. Interval placement of a nasogastric tube with the tip projecting over the expected location of the gastric fundus - Procedures PEG 7 -25 right decompressive craniectomy 03/22/18 with placement of ICP monitor [facility] Chack[facility] 03/23/[facility] 03/22/18 Right frontotemporal parietal decompressive craniectomy and Duroplasty 03/22/18 Left frontal bur hole with placement of an intracranial pressure monitor Assessment and Plan - Plan 62-year-old male admitted secondary to intracranial hemorrhage Right frontal IPH 53.3 cm. SAH bilat frontal lobes, right parietal, temporal. Right frontotemporal SDH status post emergency craniectomy for decompression for worsening midline shift right to left 2.1 cm s/p Fall, ?syncope Daily alcohol use/Cocaine abuse s/p Right frontotemporal parietal decompressive craniectomy and Duroplasty by Dr. Chacko. Brain edema is stabilizing Neurosurgery following, khurram to be discontinued tomorrow. Continue supportive care Patient is nonverbal and not able to take p.o. treatment at this time. Continue TF. Hydralazine 25mg Q8, Norvasc 10 daily Continue on Keppra Tube feed placement 03/30/18 Continue with PT/OT - PT recommends rehab at discharge Seizure precautions Acute respiratory failure secondary to failure to protect airway-resolved extubated MRSA pneumonia Tobacco abuse Elevated carboxyhemoglobin level consistent with history of smoking Extubated 03/25/2018 Continue as needed duo nebs continue to monitor respiratory status Positive sputum culture MRSA Vancomycin and Rocephin continued - Hyponatremia, resolved Continue on salt tablets monitor Na level DVT prophylaxis SCDs No chemoprophylaxis anticoagulation due to recent intracranial bleed
[2018-04-04] MEDS: Sodium Chloride 1 GM Tablet PO SCH ×2 (11:55→22:19)
[2018-04-04] MEDS ORDERED: Pharmacy Ordered Lab Info OTHER ONE (12:45)
--- NOTE | 2018-04-04 15:35 | CT ---
EXAM DATE: 04/04/2018 3:22 PM EDT AGE/SEX: 62 years / Male INDICATIONS: Cephalgia. CLINICAL DATA: This is the patient's initial encounter. Patient reports that signs and symptoms have been present for 1 day and indicates a pain score of 4/10. MEDICAL/SURGICAL HISTORY: . Intracranial hemorrhage. Craniotomy. RADIATION DOSE: 35.08 CTDI (mGy) COMPARISON: [facility] [place] HEAD W/O CONTRAST, 03/21/2018. . TECHNIQUE: CT of the head without contrast. Using automated exposure control and adjustment of the mA and/or kV according to patient size, radiation dose was kept as low as reasonably achievable to ob tain optimal diagnostic quality images. DICOM format image data is available electronically for revi ew and comparison. FINDINGS: The examination demonstrates a large area of edema involving the right frontal and portions of the ri ght temporal cortex. This appears similar to the previous exam of 03/21/2018. The blood products which were present on prior exam have undergone the expected evolution. The ventricular system is normal i n size and configuration. No abnormal extra-axial fluid collections are seen. There has been resectio n of the right parietal bone. There is approximately 3 mm of aewya-pp-fdkm falcine shift. The overall amount of mass effect is significantly decreased when compared to previous exam. No new areas of hemorrhage are seen. The visualized portion of sinus and orbit demonstrate mucoperiosteal sinus disease involving the sphe noid sinus. The remainder of the sinuses are clear. CONCLUSION: 1. The patient's exam is significantly improved compared to prior dated 03/21/2018. There is signific ant interval reduction in the amount of edema involving the right frontal cortex. No new areas of hem orrhage are identified. . Electronically signed by: Marcus Sosa MD 04/04/2018 3:34 PM EDT
[2018-04-05] MEDS: Oral Hygiene Kit OROPHARYNG SCH ×4 (00:30→16:30)
[2018-04-05] MEDS: Vancomycin Inj 750 MG in Sodium Chlor 0.9% Inj 250 ML IV.SIG SCH ×2 (04:11→12:27)
[2018-04-05] MEDS: hydrALAZINE 25 MG Tablet PO SCH ×4 (06:31→23:59)
[2018-04-05] MEDS: Carboxymethylcellulose 0.5% Opth Drops 15 ML Bottle EACH EYE SCH ×3 (06:32→21:49)
[2018-04-05] MEDS: Chlorhexidine 0.12% Oral Kit 15 ML UDC OROPHARYNG SCH ×2 (08:33→21:46)
[2018-04-05] MEDS: Sennosides Liq 8.8 MG/5 ML UDC NG/OG SCH ×2 (08:36→21:48)
[2018-04-05] MEDS: Folic Acid 1 MG Tablet PO SCH (08:36)
[2018-04-05] MEDS: amLODIPine 10 MG Tablet NG/OG SCH (08:36)
--- NOTE | 2018-04-05 09:31 | P.PN ---
Subjective Interval history: Follow-up on patient with intracranial hemorrhage. Patient seen and examined. Patient speaks to me today and is requesting morphine for pain. He denies any headache. He denies any fever or chills. He denies any chest pain or shortness of breath. Repeat CT head yesterday improved. Discussed with nursing staff, no acute issues noted. Physical Exam Vital signs: Vital Signs 04/04/18 11:51 04/04/18 16:00 04/04/18 20:00 Temperature 98.1 F 98.4 F 98 F Pulse Rate 80 83 84 Respiratory Rate 16 18 18 Blood Pressure 117/72 124/82 124/84 Pulse Oximetry 98 99 98 04/05/18 00:00 04/05/18 04:00 Temperature 97.6 F 97.4 F L Pulse Rate 88 83 Respiratory Rate 18 18 Blood Pressure 126/75 119/74 Pulse Oximetry 99 83 L Intake & Output 04/04/18 04/05/18 04/05/18 18:59 06:59 18:59 Intake Total 720.0 / 720.0 990.0 / 990.0 100 / 100 Balance 720.0 / 720.0 990.0 / 990.0 100 / 100 Weight 54.9 kg Intake: IV 720.0 / 720.0 515.0 / 515.0 100 / 100 Vancomycin Inj 750 MG In NS Inj 515.0 / 515.0 515.0 / 515.0 250 ML @ 250 mls/hr IV.SIG Q8H PEDRO LUIS Rx#:[id number] Rocephin Inj 2,000 MG In NS Inj 100 / 100 100 / 100 100 ML @ 200 mls/hr IV.SIG Q24H PEDRO LUIS Rx#:[id number] Keppra Inj 500 MG In NS Inj 100 105 / 105 ML @ 400 mls/hr IV.SIG Q12H PEDRO LUIS Rx#:[id number] Tube Feeding 475 / 475 Other: # Voids 4 Date of Last Bowel Movement 04/02/18 # Bowel Movements 2 Narrative: GENERAL: This is a thin, frail, -[place] Islander male patient INAD. Awake. Speaks to me this morning requesting morphine for pain but then shakes his head yes or no to all other questioning. SKIN: Warm and dry. No generalized rash. HEAD: s/p right sided craniectomy, khurram intact, no bone flap NECK: Supple, trachea midline. No lymphadenopathy. EYES: No scleral icterus. No injection or drainage. CARDIOVASCULAR: Regular rate and rhythm without murmurs, gallops, or rubs. RESPIRATORY: Breath sounds equal bilaterally. No accessory muscle use. Poor effort, clear to auscultation anteriorly. GASTROINTESTINAL: Abdomen soft, non-tender, nondistended. PEG site C/D/I. GENITOURINARY: Condom catheter in place with clear urine in bag. MUSCULOSKELETAL: No cyanosis or edema. NEURO: Awake. Will follow some simple commands. Able to squeeze with both hands, marketing operations intern strength greater on right. Able to wiggle toes of both feet. PSYCHIATRIC: Calm. - Urinary Catheter Management Indwelling Temp Sensing Catheter Cath placed during this visit: yes, but has since been removed by the nurse Reason for continuing: Not indwelling catheter Insertion date: 03/12/18 Insertion time: 05:30 Removal date: 03/25/18 Removal time: 18:00 Indwelling Urethral Catheter Cath placed during this visit: yes, but has since been removed by the nurse Reason for continuing: Decision to DC catheter Insertion date: 03/22/18 Insertion time: 17:30 Removal date: 03/25/18 Removal time: 18:00 Condom Cath placed during this visit: yes, but has since been removed by the nurse Reason for continuing: Not indwelling catheter Removal date: 03/25/18 Removal time: 18:00 Results - Labs CBC & Chem 7: 04/03/18 16:14 04/05/18 09:33 Laboratory Results - last 24 hr 04/03/18 04/04/18 16:14 12:10 Hemoglobin A1c 6.0 Vancomycin Trough 18.7 H - Imaging Impressions Head CT 04/04/18 00:00 CONCLUSION: 1. The patient's exam is significantly improved compared to prior dated 2017. There is significant interval reduction in the amount of edema involving the right frontal cortex. No new areas of hemorrhage are identified. . - Procedures PEG 7 -25 right decompressive craniectomy 03/22/18 with placement of ICP monitor by Dr. Chacko, tx'ed 03/23/18 03/22/18 Right frontotemporal parietal decompressive craniectomy and Duroplasty 03/22/18 Left frontal bur hole with placement of an intracranial pressure monitor Assessment and Plan - Plan 62-year-old male admitted secondary to intracranial hemorrhage Right frontal IPH 53.3 cm. SAH bilat frontal lobes, right parietal, temporal. Right frontotemporal SDH status post emergency craniectomy for decompression for worsening midline shift right to left 2.1 cm s/p Fall, ?syncope Daily alcohol use/Cocaine abuse s/p Right frontotemporal parietal decompressive craniectomy and Duroplasty by Dr. Chacko. repeat head CT 04/04 with improvement Neurosurgery following, khurram to be discontinued. Discussed with MARLENI Fontenot. Will see if plan for bone flap this hospitalization. Tube feed placement 03/30/18 Continue supportive care Patient is selectively nonverbal and not able to take p.o. treatment at this time. Continue TF. Hydralazine 25mg Q8, Norvasc 10 daily Continue on Keppra Continue with PT/OT - PT recommends rehab at discharge Seizure precautions Acute respiratory failure secondary to failure to protect airway-resolved extubated MRSA pneumonia Tobacco abuse Elevated carboxyhemoglobin level consistent with history of smoking Extubated 03/25/2018 Continue as needed duo nebs continue to monitor respiratory status Positive sputum culture MRSA Completed treatment with Vancomycin and Rocephin Hyponatremia, resolved Continue on salt tablets monitor Na level - 137 04/05 DVT prophylaxis SCDs No chemoprophylaxis anticoagulation due to recent intracranial bleed Discussed Condition With: patient, nursing staff, Dr. Viral CM Discharge Planning: Difficult placement. No payor source. CM assisting with ongoing discharge plan.
[2018-04-05 10:14] LABS: Anion Gap 7 meq/L (5-15); Blood Urea Nitrogen 10 mg/dL (7-18); Calcium 8.7 mg/dL (8.5-10.1); Carbon Dioxide 28.5 meq/L (21.0-32.0); Chloride 102 meq/L (98-107); Glomerular Filtration Rate Greater Than 89 mL/min (>89); Glucose,Random 124 mg/dL (74-106); Magnesium 2.3 mg/dL (1.5-2.5); Phosphorus 4.4 mg/dL (2.5-4.9); Potassium 3.8 meq/L (3.5-5.1); Sodium 137 meq/L (136-145)
[2018-04-05] MEDS: Sodium Chloride 1 GM Tablet PO SCH (11:48)
[2018-04-06] MEDS: Sodium Chloride 1 GM Tablet PO SCH ×2 (00:01→10:23)
[2018-04-06] MEDS: Oral Hygiene Kit OROPHARYNG SCH ×4 (00:01→17:49)
[2018-04-06] MEDS ORDERED: Pharmacy Ordered Lab Info OTHER ONE (04:45)
[2018-04-06] MEDS: Carboxymethylcellulose 0.5% Opth Drops 15 ML Bottle EACH EYE SCH ×2 (05:32→17:49)
[2018-04-06] MEDS: hydrALAZINE 25 MG Tablet PO SCH ×3 (05:32→17:48)
--- NOTE | 2018-04-06 07:50 | P.PN ---
Subjective Interval history: Follow-up on patient with intracranial hemorrhage. Patient seen and examined. He reports she feels so-so. Denies any acute medical complaints. VSS. Physical Exam Vital signs: Vital Signs 04/05/18 08:00 04/05/18 11:42 04/05/18 16:00 Temperature 97.5 F L 97.6 F 97.2 F L Pulse Rate 81 80 76 Respiratory Rate 20 16 16 Blood Pressure 111/69 104/62 120/72 Pulse Oximetry 98 98 98 04/05/18 20:00 04/06/18 00:00 04/06/18 04:00 Temperature 97.9 F 98.2 F 97.3 F L Pulse Rate 81 81 82 Respiratory Rate 18 18 18 Blood Pressure 101/62 116/69 121/70 Pulse Oximetry 97 98 98 Intake & Output 04/05/18 04/06/18 04/06/18 18:59 06:59 18:59 Intake Total 860.5 / 860.5 Output Total 750 / 750 400 / 400 Balance 110.5 / 110.5 -400 / -400 Weight 54.1 kg Intake: IV 357.5 / 357.5 Vancomycin Inj 750 MG In NS Inj 257.5 / 257.5 250 ML @ 250 mls/hr IV.SIG Q8H PEDRO LUIS Rx#:[id number] Rocephin Inj 2,000 MG In NS Inj 100 / 100 100 ML @ 200 mls/hr IV.SIG Q24H PEDRO LUIS Rx#:[id number] Tube Feeding 503 / 503 Output: Urine 750 / 750 400 / 400 Other: Date of Last Bowel Movement 04/02/18 Narrative: GENERAL: This is a thin, frail, -Guyanese male patient INAD. Awake. Appears comfortable. In 2 point soft wrist restraints. SKIN: Warm and dry. No generalized rash. HEAD: s/p right sided craniectomy, incision healing well, khurram discontinued. No bone flap. NECK: Supple, trachea midline. No lymphadenopathy. EYES: No scleral icterus. No injection or drainage. CARDIOVASCULAR: Regular rate and rhythm without murmurs, gallops, or rubs. RESPIRATORY: Breath sounds equal bilaterally. No accessory muscle use. Poor effort, clear to auscultation anteriorly. GASTROINTESTINAL: Abdomen soft, non-tender, nondistended. PEG site C/D/I. GENITOURINARY: Condom catheter in place with clear urine in bag. MUSCULOSKELETAL: No cyanosis or edema. NEURO: Awake. Will follow some simple commands. Able to squeeze with both hands, shaping machine operator strength greater on right. Able to wiggle toes of both feet. PSYCHIATRIC: Calm. - Urinary Catheter Management Indwelling Temp Sensing Catheter Cath placed during this visit: yes, but has since been removed by the nurse Reason for continuing: Not indwelling catheter Insertion date: 03/12/18 Insertion time: 05:30 Removal date: 03/25/18 Removal time: 18:00 Indwelling Urethral Catheter Cath placed during this visit: yes, but has since been removed by the nurse Reason for continuing: Decision to DC catheter Insertion date: 03/22/18 Insertion time: 17:30 Removal date: 03/25/18 Removal time: 18:00 Condom Cath placed during this visit: yes, but has since been removed by the nurse Reason for continuing: Not indwelling catheter Removal date: 03/25/18 Removal time: 18:00 Results - Labs CBC & Chem 7: 04/03/18 16:14 04/05/18 09:33 Laboratory Results - last 24 hr 04/05/18 04/05/18 09:33 09:33 Sodium 137 Potassium 3.8 Chloride 102 Carbon Dioxide 28.5 Anion Gap 7 BUN 10 Creatinine 0.58 L Estimated GFR Greater than 89 Random Glucose 124 H Calcium 8.7 Phosphorus 4.4 Magnesium 2.3 Ammonia 21 - Imaging ITS Impressions Abdomen/Pelvis CT 03/13/18 00:00 CONCLUSION: 1. Moderate constipation with diffuse ileus. Rectum distended to 8 cm with stool. No small bowel obstruction. No significant free fluid. No free air. 2. Dodge catheter in bladder. NG coiled in stomach. Trace right pleural effusion. Abdomen X-Ray 03/17/18 08:00 CONCLUSION: Reduction in the gaseous distention of the colon. Chest X-Ray 03/28/18 06:00 CONCLUSION: 1. Lungs are clear. 2. Interval placement of a nasogastric tube with the tip projecting over the expected location of the gastric fundus Head CT 04/04/18 00:00 CONCLUSION: 1. The patient's exam is significantly improved compared to prior dated 2017. There is significant interval reduction in the amount of edema involving the right frontal cortex. No new areas of hemorrhage are identified. . - Procedures PEG 7 -25 right decompressive craniectomy 03/22/18 with placement of ICP monitor by Dr. Chacko, ar'ed 03/23/18 03/22/18 Right frontotemporal parietal decompressive craniectomy and Duroplasty 03/22/18 Left frontal bur hole with placement of an intracranial pressure monitor Assessment and Plan - Plan 62-year-old male admitted secondary to intracranial hemorrhage Right frontal IPH 53.3 cm. SAH bilat frontal lobes, right parietal, temporal. Right frontotemporal SDH status post emergency craniectomy for decompression for worsening midline shift right to left 2.1 cm s/p Fall, ?syncope Daily alcohol use/Cocaine abuse s/p Right frontotemporal parietal decompressive craniectomy and Duroplasty by Dr. Chacko. repeat head CT 04/04 with improvement Neurosurgery following, Uri Hyman PAC - will see if plan for bone flap this hospitalization. Tube feed placement 03/30/18 Continue supportive care Patient is selectively nonverbal and not able to take p.o. treatment at this time. Continue TF. Hydralazine 25mg Q8, Norvasc 10 daily - 04/06 low BP, decrease dose of Norvasc to 5mg daily. Continue on Keppra Continue with PT/OT - PT recommends rehab at discharge Seizure precautions Acute respiratory failure secondary to failure to protect airway-resolved extubated MRSA pneumonia Tobacco abuse Elevated carboxyhemoglobin level consistent with history of smoking Extubated 03/25/2018 Continue as needed duo nebs continue to monitor respiratory status Positive sputum culture MRSA Completed treatment with Vancomycin and Rocephin Hyponatremia, resolved Continue on salt tablets monitor Na level - 137 04/05 DVT prophylaxis SCDs No chemoprophylaxis anticoagulation due to recent intracranial bleed Discussed Condition With: patient, nursing staff, Brian Hyman PA-C, Dr. Stratton Discharge Planning: Difficult placement. No payor source. CM assisting with ongoing discharge plan.
[2018-04-06] MEDS: Chlorhexidine 0.12% Oral Kit 15 ML UDC OROPHARYNG SCH (10:17)
[2018-04-06] MEDS: Folic Acid 1 MG Tablet PO SCH (10:23)
[2018-04-06] MEDS: amLODIPine 10 MG Tablet NG/OG SCH (10:25)
[2018-04-06] MEDS: Sennosides Liq 8.8 MG/5 ML UDC NG/OG SCH (10:26)
[2018-04-06] MEDS ORDERED: Lidocaine PF 1% Inj 5 ML Syringe INFILTRATN ONE (12:00)
[2018-04-07] MEDS: hydrALAZINE 25 MG Tablet PO SCH ×6 (00:38→22:15)
[2018-04-07] MEDS: Sodium Chloride 1 GM Tablet PO SCH ×3 (00:38→22:06)
[2018-04-07] MEDS: Carboxymethylcellulose 0.5% Opth Drops 15 ML Bottle EACH EYE SCH ×4 (00:39→22:00)
[2018-04-07] MEDS: Oral Hygiene Kit OROPHARYNG SCH ×5 (00:40→23:53)
[2018-04-07] MEDS: Sennosides Liq 8.8 MG/5 ML UDC NG/OG SCH ×3 (00:40→22:15)
[2018-04-07] MEDS: Chlorhexidine 0.12% Oral Kit 15 ML UDC OROPHARYNG SCH ×3 (00:41→22:00)
--- NOTE | 2018-04-07 08:01 | P.PN ---
Subjective Interval history: Follow-up on patient with intracranial hemorrhage. Patient seen and examined. Patient complains of headache. He denies any other acute medical complaints. He denies any chest pain or shortness of breath. He denies any nausea, vomiting or abdominal pain. He denies any dysuria or diarrhea. Discussed with nursing staff, no acute issues noted. Patient witnessed ambulating with the assistance of a walker with physical therapy in the room today. Physical Exam Vital signs: Vital Signs 04/06/18 12:00 04/06/18 16:00 04/06/18 21:15 Temperature 97.5 F L 96.1 F L 98 F Pulse Rate 82 79 88 Respiratory Rate 16 14 18 Blood Pressure 112/69 112/71 128/80 Pulse Oximetry 98 98 98 04/07/18 00:00 04/07/18 05:00 04/07/18 06:00 Temperature 97.7 F 98.1 F Pulse Rate 84 80 81 Respiratory Rate 19 19 Blood Pressure 120/67 118/68 106/76 Pulse Oximetry 97 96 Intake & Output 04/06/18 04/07/18 04/07/18 18:59 06:59 18:59 Intake Total 0 / 0 Output Total 1300 / 1300 Balance -1300 / -1300 Weight 54 kg Intake: Oral 0 / 0 Output: Urine 1300 / 1300 Other: Date of Last Bowel Movement 04/02/18 # Bowel Movements 0 Narrative: GENERAL: This is a thin, frail, -Sy[place] male patient INAD. Awake. Appears comfortable. Ambulating with PT in the room with walker. SKIN: Warm and dry. No generalized rash. HEAD: s/p right sided craniectomy, incision healing well, khurram discontinued. No bone flap. NECK: Supple, trachea midline. No lymphadenopathy. EYES: No scleral icterus. No injection or drainage. CARDIOVASCULAR: Regular rate and rhythm without murmurs, gallops, or rubs. RESPIRATORY: Breath sounds equal bilaterally. No accessory muscle use. Poor effort, clear to auscultation anteriorly. GASTROINTESTINAL: Abdomen soft, non-tender, nondistended. PEG site C/D/I. GENITOURINARY: Condom catheter in place with clear urine in bag. MUSCULOSKELETAL: No cyanosis or edema. NEURO: Awake. Confused. Will follow some simple commands. Able to squeeze with both hands, work and family life consultant strength greater on right. Able to wiggle toes of both feet. PSYCHIATRIC: Calm and cooperative. - Urinary Catheter Management Indwelling Temp Sensing Catheter Cath placed during this visit: yes, but has since been removed by the nurse Reason for continuing: Not indwelling catheter Insertion date: 03/12/18 Insertion time: 05:30 Removal date: 03/25/18 Removal time: 18:00 Indwelling Urethral Catheter Cath placed during this visit: yes, but has since been removed by the nurse Reason for continuing: Decision to DC catheter Insertion date: 03/22/18 Insertion time: 17:30 Removal date: 03/25/18 Removal time: 18:00 Condom Cath placed during this visit: yes, but has since been removed by the nurse Reason for continuing: Not indwelling catheter Removal date: 03/25/18 Removal time: 18:00 Results - Labs CBC & Chem 7: 04/03/18 16:14 04/05/18 09:33 - Imaging ITS Impressions Abdomen/Pelvis CT 03/13/18 00:00 CONCLUSION: 1. Moderate constipation with diffuse ileus. Rectum distended to 8 cm with stool. No small bowel obstruction. No significant free fluid. No free air. 2. Dodge catheter in bladder. NG coiled in stomach. Trace right pleural effusion. Abdomen X-Ray 03/17/18 08:00 CONCLUSION: Reduction in the gaseous distention of the colon. Chest X-Ray 03/28/18 06:00 CONCLUSION: 1. Lungs are clear. 2. Interval placement of a nasogastric tube with the tip projecting over the expected location of the gastric fundus Head CT 04/04/18 00:00 CONCLUSION: 1. The patient's exam is significantly improved compared to prior dated 2017. There is significant interval reduction in the amount of edema involving the right frontal cortex. No new areas of hemorrhage are identified. . - Procedures PEG 7 -25 right decompressive craniectomy 03/22/18 with placement of ICP monitor by Dr. Chacko, pr'ed 03/23/18 03/22/18 Right frontotemporal parietal decompressive craniectomy and Duroplasty 03/22/18 Left frontal bur hole with placement of an intracranial pressure monitor Assessment and Plan - Assessment (1) Intracranial hemorrhage following injury Code(s): S06.309A - Unspecified focal traumatic brain injury with loss of consciousness of unspecified duration, initial encounter Status: Acute (2) Traumatic brain injury Code(s): S06.9X9A - Unspecified intracranial injury with loss of consciousness of unspecified duration, initial encounter Status: Acute (3) Fall Code(s): W19.XXXA - Unspecified fall, initial encounter Status: Chronic (4) Cocaine abuse Code(s): F14.10 - Cocaine abuse, uncomplicated Status: Chronic (5) ETOH abuse Code(s): F10.10 - Alcohol abuse, uncomplicated Status: Chronic (6) Dysphagia Code(s): R13.10 - Dysphagia, unspecified Status: Acute - Plan 62-year-old male admitted secondary to intracranial hemorrhage Right frontal IPH 53.3 cm. SAH bilat frontal lobes, right parietal, temporal. Right frontotemporal SDH status post emergency craniectomy for decompression for worsening midline shift right to left 2.1 cm s/p Fall, ?syncope Daily alcohol use/Cocaine abuse s/p Right frontotemporal parietal decompressive craniectomy and Duroplasty by Dr. Chacko. repeat head CT 04/04 with improvement Neurosurgery following, Uri Hyman PAC - will see if plan for bone flap this hospitalization. Tube feed placement 03/30/18 Continue supportive care Patient is selectively nonverbal and not able to take p.o. treatment at this time. Continue TF. Hydralazine 25mg Q8, Norvasc 10 daily - 04/06 low BP, decrease dose of Norvasc to 5mg daily. Continue on Keppra Continue with PT/OT - PT recommends rehab at discharge Seizure precautions Consult palliative care to assist with goals of care, appreciate assistance Acute respiratory failure secondary to failure to protect airway-resolved extubated MRSA pneumonia Tobacco abuse Elevated carboxyhemoglobin level consistent with history of smoking Extubated 03/25/2018 Continue as needed duo nebs continue to monitor respiratory status Positive sputum culture MRSA Completed treatment with Vancomycin and Rocephin Hyponatremia, resolved Continue on salt tablets monitor Na level - 137 04/05 DVT prophylaxis SCDs No chemoprophylaxis anticoagulation due to recent intracranial bleed Discussed Condition With: patient, nursing staff, PT/ST and Dr. Stratton Discharge Planning: Difficult placement. No payor source. CM assisting with ongoing discharge plan. (2) Traumatic brain injury Qualifiers: Encounter type: subsequent encounter
[2018-04-07] MEDS: amLODIPine 5 MG Tablet NG/OG SCH (09:53)
[2018-04-07] MEDS: Folic Acid 1 MG Tablet PO SCH (09:54)
--- NOTE | 2018-04-07 14:42 | P.DIET ---
Nutritional Evaluation Type of nutrition evaluation: follow-up Nutrition consult regarding: Tube Feeding Objective - Diagnosis ICH, SAH, Syncope - Objective % IBW: 87 (IBW = 166#) Body Weight Used for Calculations: Actual (65.4 kg) Energy Needs - Lower Range (kCal/kg): 28 Energy Needs - Upper Range (kCal/kg): 33 Lower Limit kCal/kg (kCals): 1,831 Upper Limit kCal/kg (kCals): 2,158 Lower Limit Protein Factor (Grams per Kg): 1.2 Upper Limit Protein Factor (Grams per Kg): 1.5 Lower Protein Needs (Protein): 79 Upper Protein Needs (Protein): 98 Dietitian Reviewed in Medical Record: Curent medications, Intake & Output, Labs , Medical history, Tube feeding Diet Order: NPO Speech Therapy Recommendations: Yes Objective Comments: PMH: COPD, Asthma, tobacco abuse, daily ETOH use 03/22 R fromtotemporal parietal decompressive crani Feeding - Current Tube Feeding Tube Feeding Product: Jevity 1.5 Tube Feeding Rate: 50 (mls/hr) Tube Feeding Route: gastrostomy Assessment Assessment: Pt remains at high nutrition risk 2' to his need for TFing. He was extubated on 03/25 and PEG has been placed. ST swallow eval on 04/07 recs continued npo. To meet needs with Jevity 1.5, recommend a goal rate of 55 mls/hr to provide 1980 kcals, 84 gms protein and 1003 mls of free water. Labs, wts and clinical course reviewed. CBW = 54 kg which indicates wt loss. Recommendations: TF Jevity 1.5 with goal rate 55 ml/hr Dietitian to Monitor: Lab values, Intake & Output, Tube feeding tolerance, Weight change, Residuals, Medical course
--- NOTE | 2018-04-07 14:51 | P.CONPAL ---
Consult Service: Palliative Care Requesting Physician: Farrah Motta Reason for Consult: a. To assist with evaluation and management of symptoms including:pain, anxiety b. To assist medical decision maker(s) with: better understanding of current medical conditions; weighing benefits/burdens of medical treatment options; making medical treatment decisions. Primary Care Provider: No Primary Care Physician History of Present Illness History of Present Illness: Patient is a 62-year-old gentleman with a past medical history of asthma COPD who presented to the ER on 02/23/2018. Patient had complaints of lightheadedness and dizziness resulting in syncope falling and striking his head. In the ER he had complained of headaches and neck pain and chronic back pain with nausea. He denies any numbness and paresthesia. Patient had a trauma workup which included CT scan of the head which revealed a 5 x 3 cm right frontal lobe hemorrhage in the frontal polar aspect with some subarachnoid hemorrhage overlying the convexity and lateral sylvian fissures. CT of the cervical spine did not reveal any fracture. Neurosurgery was consulted and evaluated patient. Urine drug scree did reveal Cocaine. He was also followed by critical medicine and was in the ICU 03/04 to 03/05 patient is lethargic but open his eyes to voice and follows some commands. He was moving his right side well but could not follow commands to move his left side. He does move them to noxious stimulation. Patient on nicardipine drip to control his blood pressure. 03/06 -03/08-patient reported awake on room air, follow commands, cooperative and conversant with PT. CT however show a right frontal lobe hematoma vasogenic edema with 2.2 cm right to left midline shift. EEG shows mild encephalopathy. 03/11 by this date patient was drowsy and eventually was intubated as patient has altered mental status with copious thick secretions. Tube feeds have been resumed. 03/13 to 03/15-patient remains critical and intubated. Extubation was held due to hematoma and mass-effect with episodic apnea spells. Even though he tolerates CPAP trials. CT of the head on 03/15-show subacute parenchymal hemorrhage with surrounding cerebral edema seen at the right frontal lobe. The amount of hemorrhage does not appear significantly changed but the cerebral edema is modestly worse. There is leftward midline shift of about 16 mm 03/21: CT Head significant worsening of the invqp-jk-ofxo midline shift frontal region, now measuring 2.1 cm, decreasing density of r frontal hematoma. 03/22 pt underwent right frontotemporal parietal decompressive craniectomy and duroplasty by Dr. Chacko. 03/24. Patient reported to be more awake, following commands on the right side. Patient still has large amount ET tube secretions but was started on vancomycin for MRSA. Critical care continue to follow and manage patient's medical condition. Neurosurgery continues to follow. 03/25/2018-patient was extubated and tolerated medical extubation. Is reported that he was able to state his name, mentation and alertness was documented as improving. He was also noted that he is able to cough up secretions. 03/28-patient was transferred out of the ICU and critical medicine care was signed off to hospitalist. 03/29- pt self removed NG tube replacement. He declined NG tube replacement. Hospitalist offered hospice vs peg, and he decide to undergo peg tube placement. By 03/30 pt underwent peg tube placement. 03/30-04/05- It is reported that pt is nonverbal most of the time, but nursing staff noted on occasion pt will speak a few words. It is noted he will follow simple commands. PT notes noted that pt able to sit at edge of the bed, require mas assisst from sit to stand and unable to stand. 04/06 to 04/07- PT noted both wrist in restraints. Pt displaying flat affect, very minimal engagment. Hospitalist noted that patient witnessed ambulating with assitance of a walker. In summary: Pt is 62 male (copd/asthma/etoh/tobacco/coccaine abuse) who had syncopy, fell and hit his head. He had a 5x 3 right frontal lobe hemorrhage. Initially it was medical managment, but subsequent ct and neuro status worsened. 03/11 patient was intubated. 03/21: CT Head significant worsening of the icqiv-vs-fiqm midline shift frontal region, now measuring 2.1 cm, decreasing density of r frontal hematoma. 03/22 pt underwent right frontotemporal parietal decompressive craniectomy and duroplasty by Dr. Chacko. Eventually he was able to become alert enough and protect his airway enough to undergo medical extubation. He pulled his NG tube, so was peg tube was placed on 03/30. Neurologically he seem to be making progress with hospitalist documenting he is ambulating with assisstance in a walker. Palliative care was consulted to review goals of care. Son was Wilson Jimenez was at bedside. Apparently today patient has been stating he wanted to go home, and that he wanted to eat. He also endorse BATISTA in which medical team is aware of. He was not very cooperative, in rating the pain. He was said he just wanted to eat and go home. I told him that he has been through a lot and that I know you are frustrated. He did not answer question much of the question concerning capacity. I told him that he has made significant progress. I told him pt need to be compliant with care, and allow time to improve. I told him the only way to go home is maybe to stop tube feedings and go with hospice, but I feel given the amount of progress he has made neurologically, I don't think hospice is not appropriate for him. (I will get neurosurgery perspective). Pt's son in the room is upset and encourage him to be cooperative. Pt son understanbaly emotional and left stating he needed to look for paperwork for pt's health insurace. All patient said he does not want hospice, or anybody else, but just wants to go home. He did inform me he wants his son Wilson Jimenez to be health care surrogate but did not want to complete paper work today. Could not review code status at this time. He recognize his son. He could tell me his name. Did not tell me the date or participate in any other question after son left. Just ask for a cigarette. Function/Cognitive Trajectory: not very cooperative. Pt very frustrated today. Son was at bedside trying to find documents so he can get insurance. Review of Systems Eyes: Denies blurry vision, Denies bulging eyes (pt not very cooperative, unable to elicit. ) Neurologic: Reports other (headache) PMFSH - History History Provided By: Patient - Medical / Surgical Hx Neg / Unobtainable Medical Problems Denied: Unable to Obtain (not cooperating) - Medical History Medical History: Medical History (Last Updated 04/07/18 @ 14:10 by Akash Jacobo MD) Asthma COPD (chronic obstructive pulmonary disease) Tobacco abuse - Surgical History Surgical History: Surgical History (Last Updated 04/07/18 @ 14:12 by Akash Jacobo MD) No history of previous surgery - Tobacco History Smoking Status: Light tobacco smoker Tobacco Type: Cigarettes Cigarettes Per Day: 0.5 - Alcohol History How Often Do You Have a Drink Containing Alcohol: 4 or more times a week - Substance Use History Substance History: Active Abuse Medications and Allergies Active Medications: Active Medications Acetaminophen (Tylenol Liq) 650 mg NG/OG Q6H PRN PRN Reason: HEADACHE Last Admin: 04/05/18 08:37 Dose: 650 mg Al Hydrox/Mg Hydrox/Simethicone (Mag-Al Plus Susp Liq) 30 ml PO Q6H PRN PRN Reason: DYSPEPSIA Al Hydroxide/Mg Hydroxide (Milk Of Magnesia Liq) 30 ml PO Q12H PRN PRN Reason: Mild Constipation Albuterol (Albuterol Neb (Prn)) 2.5 mg NEB Q2HR NEB PRN PRN Reason: WHEEZING Last Admin: 03/17/18 03:27 Dose: 2.5 mg Amlodipine Besylate (Norvasc) 5 mg NG/OG DAILY [facility] Last Admin: 04/07/18 09:53 Dose: 5 mg Artificial Tears (Refresh Tears 0.5% Opth Drops) 1 drop EACH EYE Q8HR [facility] Last Admin: 04/07/18 06:17 Dose: Not Given Bisacodyl (Dulcolax Supp) 10 mg RECTAL DAILY PRN PRN Reason: SEVERE CONSITIPATION Chlorhexidine Gluconate (Peridex 0.12% Oral Kit) 15 ml OROPHARYNG BID@0800, 2000 [facility] Last Admin: 04/07/18 10:02 Dose: 15 ml Clonidine HCl (Catapres) 0.1 mg PO Q6H PRN PRN Reason: SYS BP GREATER THAN 170 [facility] Last Admin: 03/09/18 15:16 Dose: 0.1 mg Folic Acid (Folic Acid) 1 mg PO DAILY [facility] Last Admin: 04/07/18 09:54 Dose: 1 mg Hydralazine HCl (Apresoline) 25 mg PO Q6H [facility] Last Admin: 04/07/18 10:16 Dose: 25 mg Labetalol HCl (Trandate Inj) 10 mg IV.PUSH Q2HR PRN PRN Reason: SBP greater than 140mm Hg Last Admin: 03/25/18 12:47 Dose: 10 mg Lactulose (Lactulose Liq) 30 ml PO DAILY [facility] Last Admin: 04/07/18 09:54 Dose: 30 ml Lactulose (Lactulose Liq) 30 ml PO DAILY PRN PRN Reason: SEVERE CONSITIPATION Last Admin: 03/23/18 10:17 Dose: 30 ml Lansoprazole (Prevacid Solutab) 30 mg NG/OG DAILY [facility] Last Admin: 04/07/18 09:53 Dose: 30 mg Levetiracetam (Keppra Liq) 500 mg NG/OG BID [facility] Last Admin: 04/07/18 09:53 Dose: 500 mg Menthol ([place]) 1 lozenge BUCCAL UNSCH PRN PRN Reason: SORE THROAT Multivitamins (Theragran) 1 tab PO DAILY [facility] Last Admin: 04/07/18 09:53 Dose: 1 tab Ondansetron HCl (Zofran Inj) 4 mg IV.PUSH Q6H PRN PRN Reason: NAUSEA OR VOMITING Promethazine HCl (Phenergan Inj) 25 mg IM Q4H PRN PRN Reason: NAUSEA OR VOMITING Sennosides (Senna Liq) 8.8 mg NG/OG BID [facility] Last Admin: 04/07/18 09:56 Dose: 8.8 mg Sennosides (Senokot) 17.2 mg PO Q12H PRN PRN Reason: Moderate Constipation Sodium Chloride (Ns Flush) 2 ml IV.FLUSH UNSCH PRN PRN Reason: FLUSH AFTER USING IV ACCESS Sodium Chloride (Ns Flush) 2 ml IV.FLUSH BID [facility] Last Admin: 04/07/18 10:21 Dose: 2 ml Sodium Chloride (Sodium Chloride) 1 gm PO Q12H [facility] Last Admin: 04/07/18 10:03 Dose: 1 gm Thiamine HCl (Vitamin B1) 100 mg PO BID [facility] Last Admin: 04/07/18 09:53 Dose: 100 mg Allergies Allergy/AdvReac Type Severity Reaction Status Date / Time No Known Allergies Allergy Unknown Uncoded 03/03/18 20:43 Home Medications Medication Instructions Recorded Confirmed Type aspirin 325 mg PO DAILY 03/05/18 03/05/18 History Advance Directives Living Will: No Healthcare Surrogate: No (refuse to complete today.) Physical Exam Vital Signs: Vital Signs - 24 hr 04/06/18 16:00 04/06/18 21:15 04/07/18 00:00 Temperature 96.1 F L 98 F 97.7 F Pulse Rate 79 88 84 Respiratory Rate 14 18 19 Blood Pressure 112/71 128/80 120/67 Pulse Oximetry 98 98 97 04/07/18 05:00 04/07/18 06:00 04/07/18 08:00 Temperature 98.1 F 97.5 F L Pulse Rate 80 81 82 Respiratory Rate 19 16 Blood Pressure 118/68 106/76 125/69 Pulse Oximetry 96 98 04/07/18 12:00 Temperature 97.6 F Pulse Rate 82 Respiratory Rate 18 Blood Pressure 107/66 Pulse Oximetry 94 L I&O: Intake & Output 04/05/18 04/06/18 04/07/18 04/08/18 06:59 06:59 06:59 06:59 Intake Total 1710.0 / 1710.0 860.5 / 860.5 0 / 0 Output Total 1150 / 1150 1300 / 1300 Balance 1710.0 / 1710.0 -289.5 / -289.5 -1300 / -1300 Weight 54.9 kg 54.1 kg 54 kg Physical Exam: CONSTITUTIONAL/GENERAL: This is a frail 62 year old male. appears frustrated and not cooperative SKIN: No jaundice, rashes, or lesions. Ecchymoses on upper extremities. No wounds seen anteriorly. Skin temperature appropriate. Not diaphoretic. HEAD: right craniotiomy, duroplasty, asymetrical. EYES: Pupils equal and round and reactive. Extraocular motions intact. No scleral icterus. No injection or drainage. Fundi not examined. ENT: Hearing grossly normal. Nose without bleeding or purulent drainage. Throat without visible erythema, exudates, masses, or lesions. NECK: Trachea midline. Supple, nontender. No palpable thyroid enlargement or nodularity. CARDIOVASCULAR: Regular rate and rhythm without murmurs, gallops, or rubs. No JVD. Peripheral pulses symmetric. RESPIRATORY/CHEST: Symmetric, unlabored respirations. Clear to auscultation. Breath sounds equal bilaterally. No wheezes, rales, or rhonchi. GASTROINTESTINAL: Abdomen soft, non-tender, nondistended. peg tube in place. GENITOURINARY: Without palpable bladder distension. Dodge catheter in place. MUSCULOSKELETAL: Extremities without clubbing, cyanosis, or edema. No joint tenderness or effusion noted. No calf tenderness. No mottling or clubbing. LYMPHATICS: No palpable cervical or supraclavicular adenopathy. NEUROLOGICAL: Awake and alert. Follows commands, but at times not cooperative. movement on both extremieties, and movement of lower ext. PSYCHIATRIC: frustration. Diagnostic Tests Laboratory: Laboratory Results - last 72 hr 04/03/18 04/05/18 04/05/18 16:14 09:33 09:33 Sodium 137 Potassium 3.8 Chloride 102 Carbon Dioxide 28.5 Anion Gap 7 BUN 10 Creatinine 0.58 L Estimated GFR Greater than 89 Random Glucose 124 H Hemoglobin A1c 6.0 Calcium 8.7 Phosphorus 4.4 Magnesium 2.3 Ammonia 21 Result Diagrams: 04/03/18 16:14 04/05/18 09:33 Imaging: Head CT 03/08/18 11:20 CONCLUSION: 1. Large area of evolving hematoma right frontal lobe with increasing vasogenic edema and [id number]-tv-[id number] midline shift now 2.2 cm. This is more prominent on current study. 2. Small right subdural hematoma measures 5 mm not significantly changed. Abdomen X-Ray 03/09/18 00:00 CONCLUSION: Adequate placement of a nasogastric tube Chest X-Ray 03/09/18 17:43 CONCLUSION: NG and left central line in good position. No acute findings. Chest X-Ray 03/11/18 00:00 CONCLUSION: 1. ET tube in good position. 2. No evidence of pneumothorax. Head CT 03/11/18 00:00 CONCLUSION: 1. No significant change in the large intraparenchymal hemorrhage surrounded by edema involving most of the right frontal lobe. 2. No significant change with the 4 mm right subdural hematoma. 3. There continues to be mass effect and midline shift to the left by approximately 1.1 cm. Chest X-Ray 03/11/18 13:00 CONCLUSION: Support apparatus as above. No acute findings. Abdomen X-Ray 03/12/18 00:00 CONCLUSION: Gaseous distention of bowel loops, not significantly changed. Abdomen/Pelvis CT 03/13/18 00:00 CONCLUSION: 1. Moderate constipation with diffuse ileus. Rectum distended to 8 cm with stool. No small bowel obstruction. No significant free fluid. No free air. 2. Dodge catheter in bladder. NG coiled in stomach. Trace right pleural effusion. Chest X-Ray 03/13/18 12:09 CONCLUSION: No acute cardiopulmonary disease identified. Abdomen X-Ray 03/14/18 06:00 CONCLUSION: 1. Findings consistent with colonic ileus. Chest X-Ray 03/14/18 06:00 CONCLUSION: 1. Stable tubes and lines. 2. No acute abnormality or significant interval change. Head CT 03/15/18 00:00 CONCLUSION: 1. Evolving right frontal lobe parenchymal hemorrhage with cerebral edema and worsening leftward midline shift. 2. Minimal left frontal and parietal subarachnoid blood without associated mass effect. Abdomen X-Ray 03/17/18 08:00 CONCLUSION: Reduction in the gaseous distention of the colon. Head CT 03/21/18 00:00 CONCLUSION: 1. There has been an interval increase in the amount of tlpat-jd-odeo midline shift in the frontal region, now measuring 2.1 cm. 2. Involving right frontal blood products with further decrease in the density of the right frontal hematoma. Chest X-Ray 03/21/18 11:20 CONCLUSION: Under inflation with atelectasis at the lung bases. Otherwise, no acute finding is identified. Chest X-Ray 03/22/18 10:19 CONCLUSION: No acute cardiopulmonary disease. Chest X-Ray 03/25/18 06:00 CONCLUSION: Lungs remain clear. No significant change line/tube positions as above. Chest X-Ray 03/26/18 06:00 CONCLUSION: Endotracheal tube and nasogastric tube no longer seen. No acute cardiopulmonary disease identified. Chest X-Ray 03/28/18 06:00 CONCLUSION: 1. Lungs are clear. 2. Interval placement of a nasogastric tube with the tip projecting over the expected location of the gastric fundus Head CT 04/04/18 00:00 CONCLUSION: 1. The patient's exam is significantly improved compared to prior dated 2017. There is significant interval reduction in the amount of edema involving the right frontal cortex. No new areas of hemorrhage are identified. . Patient/Family Conference Present at Family Conference: son. Issues Discussed: * Palliative care role, purpose, approach * Additional medical, psychosocial, and spiritual history * Patients general health, functional status, and cognitive changes in the months leading up to the current hospitalization * Patient/family understanding of the current medical problems * Patient/family understanding of prognosis * Patients goals of care as best understood from advance directives and/or conversations and/or values * Current medical treatment options and benefits/burdens of those options * Likely scenarios comparing ongoing aggressive care with a transition to comfort measures only * Questions answered to the best of my ability * Palliative care contact information provided Assessment and Plan - Disease Oriented Problem List (1) SDH (subdural hematoma) Comment: Right frontal intraparenchymal hemorage s/p fall. Underwent decompressive creniectomy and duroplasty 03/23/2018 Dr. Chacko. (2) MRSA pneumonia Comment: Had been intubated for airway protection and for thick secretions. Pt extubated 03/25 (3) Cocaine abuse (4) Tobacco abuse (5) COPD (chronic obstructive pulmonary disease) (6) Asthma - Symptom Scale (1) Head ache Comment: did not quantify and not cooperative to characterize. Pertinent Non-Medical Issues: Psychosocial:worked in [employer]. hx of etoh drug abuse. Has 2 chilren, on Daughter (i do not have name or contact at this point) and Son Wilson Jimenez [phone] Spiritual:did not disclose Legal:He had stated he want son Wilson Jimenez has health care surrogate, but was not very cooperative, and did not want to designate health care surrogate today Ethical issues impacting care: Important Contacts: Son Wilson Jimenez [phone] Daughter( unable to obtain today) family did get somewhat emotional and son needed to go find documents for pt's insurance. Prognosis: Pt is 62 male (copd/asthma/etoh/tobacco/coccaine abuse) who had syncopy, fell and hit his head. He had a 5x 3 right frontal lobe hemorrhage. Initially it was medical managment, but subsequent ct and neuro status worsened. 03/11 patient was intubated. 03/21: CT Head significant worsening of the zkbnq-[id number]-zawe midline shift frontal region, now measuring 2.1 cm, decreasing density of r frontal hematoma. 03/22 pt underwent right frontotemporal parietal decompressive craniectomy and duroplasty by Dr. Chacko. Eventually he was able to become alert enough and protect his airway enough to undergo medical extubation. He pulled his NG tube, so was peg tube was placed on 03/30. Neurologically he seem to be making progress with hospitalist documenting he is ambulating with assisstance in a walker. He has improve tremedously and I think if he is compliant there is a good chance he can get strong enough to stop tube feedings and improve. I will check with neurosurgery but I feel his prognosis is > 6 months at this point if he was compliant. Code Status: Full Code (by default) Plan: == capacity- not very cooperative in my question on insight and judgment. He recognize his son. He could tell me his name. Did not tell me the date or participate in any other question after son left. Just ask for a cigarette. He appears at the very least can participate in making medical decisions, with the support of family. Given his TBI, mentation likely can fluctuate. Medical team may consider psych consult to evaluate on capacity to make medical decisions. he is on restraints. At the very least I feel he can designate who he wants as his health care surrogate to be. == medical decision maker. he refuse to complete Health care surrogate form. By DEENA allison, proxy would be Pt's son Wilson Jimenez and daughter (I will follow up with son to get info). == code status: by default is full code. == Goals of care: Not very cooperative today I told him that he has made significant progress. I told him pt need to be compliant with care, and allow time to improve. I told him the only way to go home is maybe to stop tube feedings and go with hospice, but I feel given the amount of progress he has made neurologically that hospice is not appropriate for him. ( I will review with neurosurgery, but prognosis is likely > 6 months if compliant, and that hospice more than likely will not accept him). Pt's son in the room is understandably upset and encourage him to be cooperative. Pt son understandably emotional and left the room, stating he needed to look for paperwork for pt's health insurance. Pt's son who is one of the health care proxy goal's are not comfort oriented, and reasonably/understandably so. All patient said is he does not want hospice, or anybody else, but just wants to go home. == Symptom: BATISTA- s/p surgery, intraprenchymal bleed. CT scan from 3 days ago show improvement. Medical team is aware of his complaints of headache today, will defer pain management at this point. May consider [place] 5/325 po/sl prn for breakthrough pain. == palliative care will follow as pt's clinical condition evolves. Appreciation Thank you for the opportunity to participate in the care of Aguilar Rachel Jain. Attestation Attestation: To help prompt me to consider important information that might be impacting today's encounter and assessment, information from prior notes written by myself or my colleagues may have been "brought forward" into today's note. My signature on this note, however, is an attestation that I personally performed the exam, history, and/or decision-making noted today, and, unless otherwise indicated, the interactions with patient, family, and staff as well as the review of records all occurred today. I also attest that the listed assessment and stated plan reflect my best clinical judgment today based on the combination of historical information, prior notes, and today's exam/ interactions. When time spent is documented, it refers only to time spent today by the signer, or if indicated, combined time spent today by collaborating physician/nurse practitioner.
[2018-04-08] MEDS: Oral Hygiene Kit OROPHARYNG SCH ×4 (04:23→23:02)
[2018-04-08] MEDS: Carboxymethylcellulose 0.5% Opth Drops 15 ML Bottle EACH EYE SCH ×3 (07:41→22:57)
[2018-04-08] MEDS: hydrALAZINE 25 MG Tablet PO SCH ×4 (07:41→22:55)
--- NOTE | 2018-04-08 08:26 | P.PN ---
Subjective Interval history: Follow-up on patient with intracranial hemorrhage. Patient seen and examined. Patient tells me today he wants to eat. He tells me he is cold. He is oriented to self only. When asked where he is he replies "baseball". When asked if he likes baseball, he states "[employer] and [employer]". He does not verbally respond to any further questioning. DW nursing staff, no acute issues noted. Physical Exam Vital signs: Vital Signs 04/07/18 12:00 04/07/18 16:00 04/07/18 20:30 Temperature 97.6 F 97.4 F L 97.9 F Pulse Rate 82 82 86 Respiratory Rate 18 17 18 Blood Pressure 107/66 118/74 126/86 Pulse Oximetry 94 L 94 L 98 04/08/18 00:00 04/08/18 04:00 Temperature 98 F 97.7 F Pulse Rate 90 66 Respiratory Rate 18 13 Blood Pressure 103/72 120/66 Pulse Oximetry 99 97 Intake & Output 04/07/18 04/08/18 04/08/18 18:59 06:59 18:59 Intake Total 0 / 0 Output Total 1375 / 1375 Balance -1375 / -1375 Weight 54.5 kg Intake: Oral 0 / 0 Output: Urine Amount (Catheter) 1375 / 1375 Condom 1375 / 1375 Other: # Voids 3 Date of Last Bowel Movement 04/02/18 # Bowel Movements 2 Narrative: GENERAL: This is a thin, frail, -[place] male patient INAD. Awake, lying in bed. SKIN: Warm and dry. No generalized rash. HEAD: s/p right sided craniectomy, incision healing well, khurram discontinued. No bone flap. NECK: Supple, trachea midline. EYES: No scleral icterus. No injection or drainage. CARDIOVASCULAR: Regular rate and rhythm without murmurs, gallops, or rubs. RESPIRATORY: No accessory muscle use. Breath sounds equal bilaterally. Poor effort, clear to auscultation anteriorly. GASTROINTESTINAL: Abdomen soft, non-tender, nondistended. PEG site C/D/I. GENITOURINARY: Condom catheter in place with clear urine in bag. MUSCULOSKELETAL: No cyanosis or edema. NEURO: Awake. Confused. Oriented to self only. Will follow some simple commands. 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 Able to wiggle toes of both feet. PSYCHIATRIC: Calm and cooperative. - Urinary Catheter Management Indwelling Temp Sensing Catheter Cath placed during this visit: yes, but has since been removed by the nurse Reason for continuing: Not indwelling catheter Insertion date: 03/12/18 Insertion time: 05:30 Removal date: 03/25/18 Removal time: 18:00 Indwelling Urethral Catheter Cath placed during this visit: yes, but has since been removed by the nurse Reason for continuing: Decision to DC catheter Insertion date: 03/22/18 Insertion time: 17:30 Removal date: 03/25/18 Removal time: 18:00 Condom Cath placed during this visit: yes, but has since been removed by the nurse Reason for continuing: Not indwelling catheter Removal date: 03/25/18 Removal time: 18:00 Results - Labs CBC & Chem 7: 04/03/18 16:14 04/05/18 09:33 - Imaging Head CT 03/08/18 11:20 CONCLUSION: 1. Large area of evolving hematoma right frontal lobe with increasing vasogenic edema and [id number]-[id number] midline shift now 2.2 cm. This is more prominent on current study. 2. Small right subdural hematoma measures 5 mm not significantly changed. Abdomen X-Ray 03/09/18 00:00 CONCLUSION: Adequate placement of a nasogastric tube Chest X-Ray 03/09/18 17:43 CONCLUSION: NG and left central line in good position. No acute findings. Chest X-Ray 03/11/18 00:00 CONCLUSION: 1. ET tube in good position. 2. No evidence of pneumothorax. Head CT 03/11/18 00:00 CONCLUSION: 1. No significant change in the large intraparenchymal hemorrhage surrounded by edema involving most of the right frontal lobe. 2. No significant change with the 4 mm right subdural hematoma. 3. There continues to be mass effect and midline shift to the left by approximately 1.1 cm. Chest X-Ray 03/11/18 13:00 CONCLUSION: Support apparatus as above. No acute findings. Abdomen X-Ray 03/12/18 00:00 CONCLUSION: Gaseous distention of bowel loops, not significantly changed. Abdomen/Pelvis CT 03/13/18 00:00 CONCLUSION: 1. Moderate constipation with diffuse ileus. Rectum distended to 8 cm with stool. No small bowel obstruction. No significant free fluid. No free air. 2. Dodge catheter in bladder. NG coiled in stomach. Trace right pleural effusion. Chest X-Ray 03/13/18 12:09 CONCLUSION: No acute cardiopulmonary disease identified. Abdomen X-Ray 03/14/18 06:00 CONCLUSION: 1. Findings consistent with colonic ileus. Chest X-Ray 03/14/18 06:00 CONCLUSION: 1. Stable tubes and lines. 2. No acute abnormality or significant interval change. Head CT 03/15/18 00:00 CONCLUSION: 1. Evolving right frontal lobe parenchymal hemorrhage with cerebral edema and worsening leftward midline shift. 2. Minimal left frontal and parietal subarachnoid blood without associated mass effect. Abdomen X-Ray 03/17/18 08:00 CONCLUSION: Reduction in the gaseous distention of the colon. Head CT 03/21/18 00:00 CONCLUSION: 1. There has been an interval increase in the amount of garvn-gs-hiev midline shift in the frontal region, now measuring 2.1 cm. 2. Involving right frontal blood products with further decrease in the density of the right frontal hematoma. Chest X-Ray 03/21/18 11:20 CONCLUSION: Under inflation with atelectasis at the lung bases. Otherwise, no acute finding is identified. Chest X-Ray 03/22/18 10:19 CONCLUSION: No acute cardiopulmonary disease. Chest X-Ray 03/25/18 06:00 CONCLUSION: Lungs remain clear. No significant change line/tube positions as above. Chest X-Ray 03/26/18 06:00 CONCLUSION: Endotracheal tube and nasogastric tube no longer seen. No acute cardiopulmonary disease identified. Chest X-Ray 03/28/18 06:00 CONCLUSION: 1. Lungs are clear. 2. Interval placement of a nasogastric tube with the tip projecting over the expected location of the gastric fundus Head CT 04/04/18 00:00 CONCLUSION: 1. The patient's exam is significantly improved compared to prior dated 2017. There is significant interval reduction in the amount of edema involving the right frontal cortex. No new areas of hemorrhage are identified. . - Procedures PEG 7 -25 right decompressive craniectomy 03/22/18 with placement of ICP monitor by Dr. Chacko, dc'ed 03/23/18 03/22/18 Right frontotemporal parietal decompressive craniectomy and Duroplasty 03/22/18 Left frontal bur hole with placement of an intracranial pressure monitor Assessment and Plan - Assessment (1) Intracranial hemorrhage following injury Code(s): S06.309A - Unspecified focal traumatic brain injury with loss of consciousness of unspecified duration, initial encounter Status: Acute (2) Traumatic brain injury Code(s): S06.9X9A - Unspecified intracranial injury with loss of consciousness of unspecified duration, initial encounter Status: Acute (3) Fall Code(s): W19.XXXA - Unspecified fall, initial encounter Status: Chronic (4) Cocaine abuse Code(s): F14.10 - Cocaine abuse, uncomplicated Status: Chronic (5) ETOH abuse Code(s): F10.10 - Alcohol abuse, uncomplicated Status: Chronic (6) Dysphagia Code(s): R13.10 - Dysphagia, unspecified Status: Acute - Plan 62-year-old male admitted secondary to intracranial hemorrhage Right frontal IPH 53.3 cm. SAH bilat frontal lobes, right parietal, temporal. Right frontotemporal SDH status post emergency craniectomy for decompression for worsening midline shift right to left 2.1 cm s/p Fall, ?syncope Daily alcohol use/Cocaine abuse s/p Right frontotemporal parietal decompressive craniectomy and Duroplasty by Dr. Chacko. repeat head CT 04/04 with improvement Neurosurgery following, Uri Hyman PAC - plan for bone flap after next week Tube feed placement 03/30/18 Continue supportive care Patient is selectively nonverbal and not able to take p.o. treatment at this time. Continue TF. Hydralazine 25mg Q8, Norvasc 10 daily - 04/06 low BP, decrease dose of Norvasc to 5mg daily. Continue on Keppra Continue with PT/OT - PT recommends rehab at discharge Seizure precautions Palliative care following, appreciate assistance. Per note, patient has improved tremendously. Feels he has capacity to make medical decisions with support of family. Recommended psych consult to assess capacity. Psychiatry consulted, appreciate assistance. 04/08 patient asking to eat. Will request ST reevaluate patient for swallow study Acute respiratory failure secondary to failure to protect airway-resolved extubated MRSA pneumonia Tobacco abuse Elevated carboxyhemoglobin level consistent with history of smoking Extubated 03/25/2018 Continue as needed duo nebs continue to monitor respiratory status Positive sputum culture MRSA Completed treatment with Vancomycin and Rocephin Hyponatremia, resolved Continue on salt tablets monitor Na level - 137 04/05 DVT prophylaxis SCDs No chemoprophylaxis anticoagulation due to recent intracranial bleed Code Status: Full code (by default) Discussed Condition With: patient, nursing staff, CM, therapy service Discharge Planning: Difficult placement. No payor source. CM assisting with ongoing discharge plan. (2) Traumatic brain injury Qualifiers: Encounter type: subsequent encounter
[2018-04-08] MEDS: Folic Acid 1 MG Tablet PO SCH (08:53)
[2018-04-08] MEDS: amLODIPine 5 MG Tablet NG/OG SCH (08:53)
[2018-04-08] MEDS: Sennosides Liq 8.8 MG/5 ML UDC NG/OG SCH ×2 (08:54→22:57)
[2018-04-08] MEDS: Chlorhexidine 0.12% Oral Kit 15 ML UDC OROPHARYNG SCH ×2 (08:54→22:56)
[2018-04-08] MEDS: Sodium Chloride 1 GM Tablet PO SCH ×2 (11:06→22:55)
[2018-04-09] MEDS: Carboxymethylcellulose 0.5% Opth Drops 15 ML Bottle EACH EYE SCH ×3 (06:06→21:43)
[2018-04-09] MEDS: Oral Hygiene Kit OROPHARYNG SCH ×4 (06:06→23:45)
[2018-04-09] MEDS: hydrALAZINE 25 MG Tablet PO SCH ×2 (06:06→11:08)
[2018-04-09] MEDS: amLODIPine 5 MG Tablet NG/OG SCH (08:00)
[2018-04-09] MEDS: Folic Acid 1 MG Tablet PO SCH (08:00)
[2018-04-09] MEDS: Sennosides Liq 8.8 MG/5 ML UDC NG/OG SCH ×2 (08:03→21:40)
[2018-04-09] MEDS: Chlorhexidine 0.12% Oral Kit 15 ML UDC OROPHARYNG SCH ×2 (08:03→21:40)
--- NOTE | 2018-04-09 08:42 | P.PN ---
Subjective Interval history: Follow-up on patient with intracranial hemorrhage. Patient seen and examined. Patient is nonverbal with me today. He does shake his head yes and no to questions. He denies any acute medical complaints. Discussed with nursing staff, no acute issues noted. Patient still in restraints. Per RN, patient pulls on PEG tube when he is out. Physical Exam Vital signs: Vital Signs 04/08/18 12:00 04/08/18 16:00 04/08/18 20:00 Temperature 97.4 F L 97.8 F 98 F Pulse Rate 86 88 86 Respiratory Rate 17 16 18 Blood Pressure 109/73 104/60 111/63 Pulse Oximetry 98 99 97 04/09/18 00:00 04/09/18 04:00 Temperature 98 F 98.2 F Pulse Rate 87 85 Respiratory Rate 18 18 Blood Pressure 117/71 123/73 Pulse Oximetry 95 97 Intake & Output 04/08/18 04/09/18 04/09/18 18:59 06:59 18:59 Intake Total 566 / 566 Output Total 300 / 300 300 / 300 350 / 350 Balance -300 / -300 266 / 266 -350 / -350 Intake: Tube Feeding 566 / 566 Output: Urine 300 / 300 350 / 350 Urine Amount (Catheter) 300 / 300 Condom 300 / 300 Other: Date of Last Bowel Movement 04/02/18 04/08/18 Narrative: GENERAL: This is a thin, frail, -[place] male patient INAD. Awake, lying in bed. In bilateral 2 point soft wrist restraints. SKIN: Warm and dry. No generalized rash. HEAD: s/p right sided craniectomy, incision healing well, khurram discontinued. No bone flap. NECK: Supple, trachea midline. EYES: No scleral icterus. No injection or drainage. CARDIOVASCULAR: Regular rate and rhythm without murmurs, gallops, or rubs. RESPIRATORY: No accessory muscle use. Breath sounds equal bilaterally. Poor effort, clear to auscultation anteriorly. GASTROINTESTINAL: Abdomen soft, non-tender, nondistended. PEG site C/D/I. GENITOURINARY: Condom catheter in place with clear urine in bag. MUSCULOSKELETAL: No cyanosis or edema. NEURO: Awake. Confused. Oriented to self only. Will follow some simple commands. 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 Able to wiggle toes of both feet. PSYCHIATRIC: Calm and cooperative. - Urinary Catheter Management Indwelling Temp Sensing Catheter Cath placed during this visit: yes, but has since been removed by the nurse Reason for continuing: Not indwelling catheter Insertion date: 03/12/18 Insertion time: 05:30 Removal date: 03/25/18 Removal time: 18:00 Indwelling Urethral Catheter Cath placed during this visit: yes, but has since been removed by the nurse Reason for continuing: Decision to DC catheter Insertion date: 03/22/18 Insertion time: 17:30 Removal date: 03/25/18 Removal time: 18:00 Condom Cath placed during this visit: yes, but has since been removed by the nurse Reason for continuing: Not indwelling catheter Removal date: 03/25/18 Removal time: 18:00 Results - Labs CBC & Chem 7: 04/09/18 14:22 04/09/18 14:35 - Imaging Head CT 03/08/18 11:20 CONCLUSION: 1. Large area of evolving hematoma right frontal lobe with increasing vasogenic edema and krjst-av-gure midline shift now 2.2 cm. This is more prominent on current study. 2. Small right subdural hematoma measures 5 mm not significantly changed. Abdomen X-Ray 03/09/18 00:00 CONCLUSION: Adequate placement of a nasogastric tube Chest X-Ray 03/09/18 17:43 CONCLUSION: NG and left central line in good position. No acute findings. Chest X-Ray 03/11/18 00:00 CONCLUSION: 1. ET tube in good position. 2. No evidence of pneumothorax. Head CT 03/11/18 00:00 CONCLUSION: 1. No significant change in the large intraparenchymal hemorrhage surrounded by edema involving most of the right frontal lobe. 2. No significant change with the 4 mm right subdural hematoma. 3. There continues to be mass effect and midline shift to the left by approximately 1.1 cm. Chest X-Ray 03/11/18 13:00 CONCLUSION: Support apparatus as above. No acute findings. Abdomen X-Ray 03/12/18 00:00 CONCLUSION: Gaseous distention of bowel loops, not significantly changed. Abdomen/Pelvis CT 03/13/18 00:00 CONCLUSION: 1. Moderate constipation with diffuse ileus. Rectum distended to 8 cm with stool. No small bowel obstruction. No significant free fluid. No free air. 2. Dodge catheter in bladder. NG coiled in stomach. Trace right pleural effusion. Chest X-Ray 03/13/18 12:09 CONCLUSION: No acute cardiopulmonary disease identified. Abdomen X-Ray 03/14/18 06:00 CONCLUSION: 1. Findings consistent with colonic ileus. Chest X-Ray 03/14/18 06:00 CONCLUSION: 1. Stable tubes and lines. 2. No acute abnormality or significant interval change. Head CT 03/15/18 00:00 CONCLUSION: 1. Evolving right frontal lobe parenchymal hemorrhage with cerebral edema and worsening leftward midline shift. 2. Minimal left frontal and parietal subarachnoid blood without associated mass effect. Abdomen X-Ray 03/17/18 08:00 CONCLUSION: Reduction in the gaseous distention of the colon. Head CT 03/21/18 00:00 CONCLUSION: 1. There has been an interval increase in the amount of mbfwb-yy-uhrl midline shift in the frontal region, now measuring 2.1 cm. 2. Involving right frontal blood products with further decrease in the density of the right frontal hematoma. Chest X-Ray 03/21/18 11:20 CONCLUSION: Under inflation with atelectasis at the lung bases. Otherwise, no acute finding is identified. Chest X-Ray 03/22/18 10:19 CONCLUSION: No acute cardiopulmonary disease. Chest X-Ray 03/25/18 06:00 CONCLUSION: Lungs remain clear. No significant change line/tube positions as above. Chest X-Ray 03/26/18 06:00 CONCLUSION: Endotracheal tube and nasogastric tube no longer seen. No acute cardiopulmonary disease identified. Chest X-Ray 03/28/18 06:00 CONCLUSION: 1. Lungs are clear. 2. Interval placement of a nasogastric tube with the tip projecting over the expected location of the gastric fundus Head CT 04/04/18 00:00 CONCLUSION: 1. The patient's exam is significantly improved compared to prior dated 2017. There is significant interval reduction in the amount of edema involving the right frontal cortex. No new areas of hemorrhage are identified. . - Procedures PEG 7 -25 right decompressive craniectomy 03/22/18 with placement of ICP monitor by Dr. Chacko, in'ed 03/23/18 03/22/18 Right frontotemporal parietal decompressive craniectomy and Duroplasty 03/22/18 Left frontal bur hole with placement of an intracranial pressure monitor Assessment and Plan - Assessment (1) Intracranial hemorrhage following injury Code(s): S06.309A - Unspecified focal traumatic brain injury with loss of consciousness of unspecified duration, initial encounter Status: Acute (2) Traumatic brain injury Code(s): S06.9X9A - Unspecified intracranial injury with loss of consciousness of unspecified duration, initial encounter Status: Acute (3) Fall Code(s): W19.XXXA - Unspecified fall, initial encounter Status: Chronic (4) Cocaine abuse Code(s): F14.10 - Cocaine abuse, uncomplicated Status: Chronic (5) ETOH abuse Code(s): F10.10 - Alcohol abuse, uncomplicated Status: Chronic (6) Dysphagia Code(s): R13.10 - Dysphagia, unspecified Status: Acute - Plan 62-year-old male admitted secondary to intracranial hemorrhage Right frontal IPH 53.3 cm. SAH bilat frontal lobes, right parietal, temporal. Right frontotemporal SDH status post emergency craniectomy for decompression for worsening midline shift right to left 2.1 cm s/p Fall, ?syncope Daily alcohol use/Cocaine abuse s/p Right frontotemporal parietal decompressive craniectomy and Duroplasty by Dr. Chacko. repeat head CT 04/04 with improvement Neurosurgery following, Uri Hyman PAC - plan for bone flap after next week Tube feed placement 03/30/18 Continue supportive care Hydralazine 25mg Q8, Norvasc 10 daily - Low BP, continue on decreased dose of Norvasc 5mg daily, hold Hydralazine Continue on Keppra Continue with PT/OT - PT recommends rehab at discharge Seizure precautions Palliative care following, appreciate assistance. Per note, patient has improved tremendously. Feels he has capacity to make medical decisions with support of family. Recommended psych consult to assess capacity. Psychiatry consulted, appreciate assistance. 04/08 patient asking to eat. ST re-evaluated and patient given puree diet with honey thickened liquids. Consult general farm hand for calorie count. Acute respiratory failure secondary to failure to protect airway-resolved extubated MRSA pneumonia Tobacco abuse Elevated carboxyhemoglobin level consistent with history of smoking Extubated 03/25/2018 Continue as needed duo nebs continue to monitor respiratory status Positive sputum culture MRSA Completed treatment with Vancomycin and Rocephin Hyponatremia, resolved Continue on salt tablets monitor Na level - 137 04/09 DVT prophylaxis SCDs No chemoprophylaxis anticoagulation due to recent intracranial bleed Discussed Condition With: patient, nursing staff, Dr. Stratton Discharge Planning: Difficult placement. No payor source. assisting with ongoing discharge plan. (2) Traumatic brain injury Qualifiers: Encounter type: subsequent encounter
[2018-04-09] MEDS: Sodium Chloride 1 GM Tablet PO SCH ×2 (11:08→22:06)
[2018-04-09 15:04] LABS: Baso % (Auto) 0.9 % (0.0-2.0); Eos # (Auto) 0.1 th/mm3 (0.0-0.4); Eos % (Auto) 2.3 % (0.0-4.0); Hemoglobin 10.9 gm/dL (13.0-17.0); Lymph # (Auto) 0.9 th/mm3 (1.0-4.8); Lymph % (Auto) 24.4 % (9.0-44.0); Mean Corpuscular Hemoglobin 30.9 pg (27.0-34.0); Mean Corpuscular Volume 93.8 fL (80.0-100.0); Mean Platelet Volume 7.4 fL (7.0-11.0); Mono # (Auto) 0.4 th/mm3 (0.0-0.9); Mono % (Auto) 10.1 % (0.0-8.0); Neut # (Auto) 2.2 th/mm3 (1.8-7.7); Neut % (Auto) 62.3 % (16.0-70.0); Platelet Count 341 th/mm3 (150-450); Red Blood Count 3.52 mil/mm3 (4.50-5.90); Red Cell Distribution Width 13.7 % (11.6-17.2); White Blood Count 3.6 th/mm3 (4.0-11.0)
[2018-04-09 15:23] LABS: Alanine Aminotransferase 18 U/L (12-78); Albumin 2.9 g/dL (3.4-5.0); Anion Gap 4 meq/L (5-15); Aspartate Aminotransferase 36 U/L (15-37); Blood Urea Nitrogen 14 mg/dL (7-18); Calcium 8.8 mg/dL (8.5-10.1); Carbon Dioxide 33.1 meq/L (21.0-32.0); Chloride 100 meq/L (98-107); Glomerular Filtration Rate Greater Than 89 mL/min (>89); Glucose,Random 128 mg/dL (74-106); Magnesium 2.2 mg/dL (1.5-2.5); Potassium 4.3 meq/L (3.5-5.1); Sodium 137 meq/L (136-145)
[2018-04-09 15:25] LABS: Alkaline Phosphatase 85 U/L (45-117); Total Protein 7.9 g/dL (6.4-8.2)
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
[2018-04-10] MEDS: Oral Hygiene Kit OROPHARYNG SCH ×3 (06:00→20:20)
[2018-04-10] MEDS: Carboxymethylcellulose 0.5% Opth Drops 15 ML Bottle EACH EYE SCH ×3 (06:00→22:34)
--- NOTE | 2018-04-10 07:53 | P.PN ---
Subjective Interval history: Follow-up on patient with intracranial hemorrhage. Patient seen and examined. He is out of wrist restraints. He will not speak today but will nod his head yes and no to questioning. RN in room attempting to feed patient. He will not open his eyes but does take food when offered. No IV access at this time. No acute issues. VSS. Physical Exam Vital signs: Vital Signs 04/09/18 08:00 04/09/18 12:00 04/09/18 16:00 Temperature 97.3 F L 97.1 F L 97.5 F L Pulse Rate 87 84 84 Respiratory Rate 16 16 16 Blood Pressure 117/72 117/67 119/77 Pulse Oximetry 98 98 97 04/09/18 20:00 04/10/18 00:00 04/10/18 04:00 Temperature 97.6 F 97.8 F 98.3 F Pulse Rate 92 H 84 93 H Respiratory Rate 18 18 18 Blood Pressure 117/71 112/65 118/75 Pulse Oximetry 97 98 96 Intake & Output 04/09/18 04/10/18 04/10/18 18:59 06:59 18:59 Intake Total 650 / 650 Output Total 1651 / 1651 Balance -1001 / -1001 Weight 52.9 kg Intake: Tube Feeding 550 / 550 Water Bolus Amount 100 / 100 Output: Urine 950 / 950 Stool 1 / 1 Urine Amount (Catheter) 700 / 700 Condom 700 / 700 Other: # Incontinent Voids 3 1 Date of Last Bowel Movement 04/09/18 04/09/18 # Incontinent Bowel Movements 1 Narrative: GENERAL: This is a thin, frail, -[place] male patient INAD. Awake, lying in bed. Out of wrist restraints. Will not verbally respond. Keeps pulling covers over his head. SKIN: Warm and dry. No generalized rash. HEAD: s/p right sided craniectomy, incision healing well, khurram discontinued. No bone flap. NECK: Supple, trachea midline. EYES: Will not open his eyes. CARDIOVASCULAR: Regular rate and rhythm without murmurs, gallops, or rubs. RESPIRATORY: No accessory muscle use. Breath sounds equal bilaterally. Poor effort, clear to auscultation anteriorly. GASTROINTESTINAL: Abdomen soft, non-tender, nondistended. PEG site C/D/I. GENITOURINARY: Condom catheter in place with clear urine in bag. MUSCULOSKELETAL: No cyanosis or edema. NEURO: Awake. Nonverbal today. Will not open his eyes. Will follow some simple commands like wiggle his toes. PSYCHIATRIC: Calm. - Urinary Catheter Management Indwelling Temp Sensing Catheter Cath placed during this visit: yes, but has since been removed by the nurse Reason for continuing: Not indwelling catheter Insertion date: 03/12/18 Insertion time: 05:30 Removal date: 03/25/18 Removal time: 18:00 Indwelling Urethral Catheter Cath placed during this visit: yes, but has since been removed by the nurse Reason for continuing: Decision to DC catheter Insertion date: 03/22/18 Insertion time: 17:30 Removal date: 03/25/18 Removal time: 18:00 Condom Cath placed during this visit: yes, but has since been removed by the nurse Reason for continuing: Not indwelling catheter Removal date: 03/25/18 Removal time: 18:00 Results - Labs CBC & Chem 7: 04/09/18 14:22 04/09/18 14:35 Laboratory Results - last 24 hr 04/09/18 04/09/18 04/09/18 14:22 14:35 19:12 WBC 3.6 L RBC 3.52 L Hgb 10.9 L Hct 33.0 L MCV 93.8 MCH 30.9 MCHC 33.0 RDW 13.7 Plt Count 341 MPV 7.4 Neut % (Auto) 62.3 Lymph % (Auto) 24.4 [place] % (Auto) 10.1 H Eos % (Auto) 2.3 Baso % (Auto) 0.9 Neut # (Auto) 2.2 Lymph # (Auto) 0.9 L [place] # (Auto) 0.4 Eos # (Auto) 0.1 Baso # (Auto) 0.0 WBC Differential . Differential Comment Auto diff final Sodium 137 Potassium 4.3 Chloride 100 Carbon Dioxide 33.1 H Anion Gap 4 L BUN 14 Creatinine 0.74 Estimated GFR Greater than 89 Random Glucose 128 H Lactic Acid 1.3 Calcium 8.8 Phosphorus 4.0 Magnesium 2.2 Total Bilirubin 0.2 AST 36 ALT 18 Alkaline Phosphatase 85 Total Protein 7.9 Albumin 2.9 L - Imaging Head CT 03/08/18 11:20 CONCLUSION: 1. Large area of evolving hematoma right frontal lobe with increasing vasogenic edema and [id number] midline shift now 2.2 cm. This is more prominent on current study. 2. Small right subdural hematoma measures 5 mm not significantly changed. Abdomen X-Ray 03/09/18 00:00 CONCLUSION: Adequate placement of a nasogastric tube Chest X-Ray 03/09/18 17:43 CONCLUSION: NG and left central line in good position. No acute findings. Chest X-Ray 03/11/18 00:00 CONCLUSION: 1. ET tube in good position. 2. No evidence of pneumothorax. Head CT 03/11/18 00:00 CONCLUSION: 1. No significant change in the large intraparenchymal hemorrhage surrounded by edema involving most of the right frontal lobe. 2. No significant change with the 4 mm right subdural hematoma. 3. There continues to be mass effect and midline shift to the left by approximately 1.1 cm. Chest X-Ray 03/11/18 13:00 CONCLUSION: Support apparatus as above. No acute findings. Abdomen X-Ray 03/12/18 00:00 CONCLUSION: Gaseous distention of bowel loops, not significantly changed. Abdomen/Pelvis CT 03/13/18 00:00 CONCLUSION: 1. Moderate constipation with diffuse ileus. Rectum distended to 8 cm with stool. No small bowel obstruction. No significant free fluid. No free air. 2. Dodge catheter in bladder. NG coiled in stomach. Trace right pleural effusion. Chest X-Ray 03/13/18 12:09 CONCLUSION: No acute cardiopulmonary disease identified. Abdomen X-Ray 03/14/18 06:00 CONCLUSION: 1. Findings consistent with colonic ileus. Chest X-Ray 03/14/18 06:00 CONCLUSION: 1. Stable tubes and lines. 2. No acute abnormality or significant interval change. Head CT 03/15/18 00:00 CONCLUSION: 1. Evolving right frontal lobe parenchymal hemorrhage with cerebral edema and worsening leftward midline shift. 2. Minimal left frontal and parietal subarachnoid blood without associated mass effect. Abdomen X-Ray 03/17/18 08:00 CONCLUSION: Reduction in the gaseous distention of the colon. Head CT 03/21/18 00:00 CONCLUSION: 1. There has been an interval increase in the amount of [id number] midline shift in the frontal region, now measuring 2.1 cm. 2. Involving right frontal blood products with further decrease in the density of the right frontal hematoma. Chest X-Ray 03/21/18 11:20 CONCLUSION: Under inflation with atelectasis at the lung bases. Otherwise, no acute finding is identified. Chest X-Ray 03/22/18 10:19 CONCLUSION: No acute cardiopulmonary disease. Chest X-Ray 03/25/18 06:00 CONCLUSION: Lungs remain clear. No significant change line/tube positions as above. Chest X-Ray 03/26/18 06:00 CONCLUSION: Endotracheal tube and nasogastric tube no longer seen. No acute cardiopulmonary disease identified. Chest X-Ray 03/28/18 06:00 CONCLUSION: 1. Lungs are clear. 2. Interval placement of a nasogastric tube with the tip projecting over the expected location of the gastric fundus Head CT 04/04/18 00:00 CONCLUSION: 1. The patient's exam is significantly improved compared to prior dated 2017. There is significant interval reduction in the amount of edema involving the right frontal cortex. No new areas of hemorrhage are identified. . - Procedures PEG 7 - right decompressive craniectomy 03/22/18 with placement of ICP monitor by Dr. Chacko, id'ed 03/23/18 03/22/18 Right frontotemporal parietal decompressive craniectomy and Duroplasty 03/22/18 Left frontal bur hole with placement of an intracranial pressure monitor Assessment and Plan - Assessment (1) Intracranial hemorrhage following injury Code(s): S06.309A - Unspecified focal traumatic brain injury with loss of consciousness of unspecified duration, initial encounter Status: Acute (2) Traumatic brain injury Code(s): S06.9X9A - Unspecified intracranial injury with loss of consciousness of unspecified duration, initial encounter Status: Acute (3) Fall Code(s): W19.XXXA - Unspecified fall, initial encounter Status: Chronic (4) Cocaine abuse Code(s): F14.10 - Cocaine abuse, uncomplicated Status: Chronic (5) ETOH abuse Code(s): F10.10 - Alcohol abuse, uncomplicated Status: Chronic (6) Dysphagia Code(s): R13.10 - Dysphagia, unspecified Status: Acute - Plan 62-year-old male admitted secondary to intracranial hemorrhage Right frontal IPH 53.3 cm. SAH bilat frontal lobes, right parietal, temporal. Right frontotemporal SDH status post emergency craniectomy for decompression for worsening midline shift right to left 2.1 cm s/p Fall, ?syncope Daily alcohol use/Cocaine abuse s/p Right frontotemporal parietal decompressive craniectomy and Duroplasty by Dr. Chacko. repeat head CT 04/04 with improvement Neurosurgery following, Uri Hyman PAC - plan for bone flap after next week Tube feed placement 03/30/18 Continue supportive care Hydralazine 25mg Q8, Norvasc 10 daily - Low BP, continue on decreased dose of Norvasc 5mg daily, continue to hold Hydralazine Continue on Keppra Continue with PT/OT - PT recommends rehab at discharge Seizure precautions Palliative care following, appreciate assistance. Per note, patient has improved tremendously. Feels he has capacity to make medical decisions with support of family. Recommended psych consult to assess capacity. Psychiatry consulted, appreciate assistance. 04/[address] to eat. ST re-evaluated and patient given puree diet with honey thickened liquids. Consult supervisor sample preparation for calorie count. Acute respiratory failure secondary to failure to protect airway-resolved extubated MRSA pneumonia Tobacco abuse Elevated carboxyhemoglobin level consistent with history of smoking Extubated 03/25/2018 Continue as needed duo nebs continue to monitor respiratory status Leukopenia, acute WBC 3.6 yesterday, repeat CBC pending afebrile, DEEPTHI 2200 monitor Positive sputum culture MRSA Completed treatment with Vancomycin and Rocephin Hyponatremia, resolved Continue on salt tablets monitor Na level - 137 04/09 - repeat BMP ordered for today DVT prophylaxis SCDs No chemoprophylaxis anticoagulation due to recent intracranial bleed Code Status: FULL Discussed Condition With: patient, nursing staff, Dr. Stratton Discharge Planning: Difficult placement. No payor source. CM assisting with ongoing discharge plan. (2) Traumatic brain injury Qualifiers: Encounter type: subsequent encounter
[2018-04-10] MEDS: amLODIPine 5 MG Tablet NG/OG SCH (09:00)
[2018-04-10] MEDS: Folic Acid 1 MG Tablet PO SCH (09:00)
[2018-04-10] MEDS: Sennosides Liq 8.8 MG/5 ML UDC NG/OG SCH ×2 (09:01→20:19)
[2018-04-10] MEDS: Chlorhexidine 0.12% Oral Kit 15 ML UDC OROPHARYNG SCH ×2 (09:01→19:57)
[2018-04-10 10:00] LABS: Anion Gap 9 meq/L (5-15); Blood Urea Nitrogen 14 mg/dL (7-18); Calcium 9.1 mg/dL (8.5-10.1); Chloride 99 meq/L (98-107); Glomerular Filtration Rate Greater Than 89 mL/min (>89); Glucose,Random 118 mg/dL (74-106); Potassium 4.1 meq/L (3.5-5.1); Sodium 136 meq/L (136-145)
--- NOTE | 2018-04-10 11:57 | P.DIET ---
Nutritional Evaluation Type of nutrition evaluation: follow-up Nutrition consult regarding: Tube Feeding Nutrition screening: [facility] (04/09/18 [facility] Calorie Counting) Subjective Subjective Comments: Pt w/bed covers over his head when visited. Pt remained under the covers and nodded for yes and shook his head from side to side for no when asked regarding his food preferences. Pt and LEATHA Lopez informed Calorie Count has been initiated. Objective - Diagnosis ICH, SAH, Syncope - Objective % IBW: 87 (IBW = 166#) Body Weight Used for Calculations: Actual (65.4 kg) Energy Needs - Lower Range (kCal/kg): 28 Energy Needs - Upper Range (kCal/kg): 33 Lower Limit kCal/kg (kCals): 1,831 Upper Limit kCal/kg (kCals): 2,158 Lower Limit Protein Factor (Grams per Kg): 1.2 Upper Limit Protein Factor (Grams per Kg): 1.5 Lower Protein Needs (Protein): 79 Upper Protein Needs (Protein): 98 Dietitian Reviewed in Medical Record: Current diet, Curent medications, Intake & Output, Labs, Medical history, Tube feeding Diet Order: TF'ing Jevity 1.5 @ goal rate 55m;/hr and Pureed diet w/HTL Speech Therapy Recommendations: Yes (Pureed w/Liquids thickened to honey consistency) Objective Comments: PMH: COPD, Asthma, tobacco abuse, daily ETOH use 03/22 R fromtotemporal parietal decompressive craniectomy Integumentary: coccyx pressure injury PEG placement 03/30/18 Meds Include: Keppra, Norvasc, Catapres, Lactulose, Theragran, Thiamine, Folic Acid LBM 04/08, UOP 700ml Feeding - Current Tube Feeding Tube Feeding Product: Jevity 1.5 Tube Feeding Rate: 55 (mls/hr) Tube Feeding Route: gastrostomy Current kCals Provided by Tube Feedin,980 Current Protein Provided by Tube Feeding (gPRO): 84 Current Free H2O Provided (m/l): 1,003 Assessment Assessment: Pt remains at high nutrition risk r/t need for TFing. He was extubated on 03/25 and PEG has been placed. Pt tolerating TF'ing w/ Jevity 1.5 @ goal rate of 55 mls/hr. Diet advanced per ST, as ordered. [facility] for Calorie Count 04/10 through w/Nutrition Recs to follow 04/13. Send Ensure Enlive TID(350 kcal and 20g Protein per serving). Send Ensure Pudding TID(170 kcal and 4g Protein per serving). Current wt 52.9kg indicates a wt loss of 14kg since admission. Recommendations: 1.TF Jevity 1.5 with goal rate 55 ml/hr 2. [facility] for Calorie Count 04/10 through 04/12 w/Nutrition Recs to follow 04/13 3. Send Ensure Enlive TID 4. Send Ensure Pudding TID Dietitian to Monitor: Lab values, Supplement acceptance, Intake & Output, Diet tolerance, Tube feeding tolerance, Weight change, Residuals, PO Intake, Wound/ skin status, Medical course
[2018-04-10 12:53] LABS: Baso % (Auto) 0.5 % (0.0-2.0); Eos # (Auto) 0.1 th/mm3 (0.0-0.4); Eos % (Auto) 1.5 % (0.0-4.0); Hematocrit 33.1 % (39.0-51.0); Hemoglobin 10.9 gm/dL (13.0-17.0); Lymph % (Auto) 16.3 % (9.0-44.0); Mean Corpuscular Hemoglobin 30.4 pg (27.0-34.0); Mean Platelet Volume 6.7 fL (7.0-11.0); Mono # (Auto) 0.5 th/mm3 (0.0-0.9); Mono % (Auto) 8.5 % (0.0-8.0); Neut # (Auto) 4.7 th/mm3 (1.8-7.7); Neut % (Auto) 73.2 % (16.0-70.0); Platelet Count 344 th/mm3 (150-450); Red Blood Count 3.59 mil/mm3 (4.50-5.90); Red Cell Distribution Width 13.6 % (11.6-17.2); White Blood Count 6.4 th/mm3 (4.0-11.0)
[2018-04-10] MEDS: Sodium Chloride 1 GM Tablet PO SCH ×2 (13:11→22:34)
[2018-04-11] MEDS: Oral Hygiene Kit OROPHARYNG SCH ×4 (01:35→23:18)
[2018-04-11] MEDS: Carboxymethylcellulose 0.5% Opth Drops 15 ML Bottle EACH EYE SCH ×3 (06:29→23:17)
--- NOTE | 2018-04-11 07:24 | P.PN ---
Subjective Interval history: Follow-up on patient with intracranial hemorrhage. Patient seen and examined. Patient encountered in his room in bed. Awake. Nursing at bedside applying bilateral wrist restraints as patient was attempting to get out of bed. Patient complains of headache. He denies any fever or chills. He denies any chest pain or shortness of breath. He denies any nausea, vomiting or abdominal pain. Discussed with nursing staff, he has not voided yet this am. Did not eat much of breakfast. +small BM. Physical Exam Vital signs: Vital Signs 04/10/18 08:00 04/10/18 12:00 04/10/18 16:00 Temperature 97.3 F L 98.4 F 98 F Pulse Rate 85 98 H 97 H Respiratory Rate 20 20 20 Blood Pressure 127/63 111/61 113/59 L Pulse Oximetry 97 97 96 04/10/18 20:00 04/11/18 00:00 04/11/18 04:00 Temperature 97.6 F 98.5 F 97.7 F Pulse Rate 96 H 91 H 90 Respiratory Rate 18 18 Blood Pressure 135/72 110/72 130/70 Pulse Oximetry 97 96 96 Intake & Output 04/10/18 04/11/18 04/11/18 18:59 06:59 18:59 Output Total 3 / 3 Balance -3 / -3 Weight 53.6 kg Output: Urine 3 / 3 Other: # Incontinent Voids 1 1 Date of Last Bowel Movement 04/10/18 04/10/18 # Bowel Movements 1 # Incontinent Bowel Movements 1 Narrative: GENERAL: This is a thin, frail, -Portuguese male patient INAD. Awake, lying in bed. Bilateral soft wrist restraints being reapplied. Says a few words. SKIN: Warm and dry. No generalized rash. HEAD: s/p right sided craniectomy, incision healing well. No bone flap. NECK: Supple, trachea midline. EYES: No sclera injection. No drainage. CARDIOVASCULAR: Tachycardic without murmurs, gallops, or rubs. RESPIRATORY: No accessory muscle use. Breath sounds equal bilaterally. Poor effort, clear to auscultation anteriorly. GASTROINTESTINAL: Abdomen soft, non-tender, nondistended. PEG site C/D/I. GENITOURINARY: Condom catheter in place with clear urine in bag. MUSCULOSKELETAL: No cyanosis or edema. NEURO: Awake. Sitting up in bed watching TV. Moves all extremities spontaneously. Minimal verbalization. PSYCHIATRIC: Calm at present. - Urinary Catheter Management Indwelling Temp Sensing Catheter Cath placed during this visit: yes, but has since been removed by the nurse Reason for continuing: Not indwelling catheter Insertion date: 03/12/18 Insertion time: 05:30 Removal date: 03/25/18 Removal time: 18:00 Indwelling Urethral Catheter Cath placed during this visit: yes, but has since been removed by the nurse Reason for continuing: Decision to DC catheter Insertion date: 03/22/18 Insertion time: 17:30 Removal date: 03/25/18 Removal time: 18:00 Condom Cath placed during this visit: yes, but has since been removed by the nurse Reason for continuing: Not indwelling catheter Removal date: 03/25/18 Removal time: 18:00 Results - Labs CBC & Chem 7: 04/10/18 12:43 04/10/18 08:24 Laboratory Results - last 24 hr 04/10/18 04/10/18 04/10/18 08:24 12:43 12:43 WBC 6.4 D RBC 3.59 L Hgb 10.9 L Hct 33.1 L MCV 92.0 MCH 30.4 MCHC 33.0 RDW 13.6 Plt Count 344 MPV 6.7 L Neut % (Auto) 73.2 H Lymph % (Auto) 16.3 Bailey % (Auto) 8.5 H Eos % (Auto) 1.5 Baso % (Auto) 0.5 Neut # (Auto) 4.7 Lymph # (Auto) 1.0 Bailey # (Auto) 0.5 Eos # (Auto) 0.1 Baso # (Auto) 0.0 WBC Differential . Differential Comment Auto diff final Sodium 136 Potassium 4.1 Chloride 99 Carbon Dioxide 28.0 Anion Gap 9 BUN 14 Creatinine 0.65 Estimated GFR Greater than 89 Random Glucose 118 H Calcium 9.1 Ammonia 21 - Imaging Head CT 03/08/18 11:20 CONCLUSION: 1. Large area of evolving hematoma right frontal lobe with increasing vasogenic edema and [id number] midline shift now 2.2 cm. This is more prominent on current study. 2. Small right subdural hematoma measures 5 mm not significantly changed. Abdomen X-Ray 03/09/18 00:00 CONCLUSION: Adequate placement of a nasogastric tube Chest X-Ray 03/09/18 17:43 CONCLUSION: NG and left central line in good position. No acute findings. Chest X-Ray 03/11/18 00:00 CONCLUSION: 1. ET tube in good position. 2. No evidence of pneumothorax. Head CT 03/11/18 00:00 CONCLUSION: 1. No significant change in the large intraparenchymal hemorrhage surrounded by edema involving most of the right frontal lobe. 2. No significant change with the 4 mm right subdural hematoma. 3. There continues to be mass effect and midline shift to the left by approximately 1.1 cm. Chest X-Ray 03/11/18 13:00 CONCLUSION: Support apparatus as above. No acute findings. Abdomen X-Ray 03/12/18 00:00 CONCLUSION: Gaseous distention of bowel loops, not significantly changed. Abdomen/Pelvis CT 03/13/18 00:00 CONCLUSION: 1. Moderate constipation with diffuse ileus. Rectum distended to 8 cm with stool. No small bowel obstruction. No significant free fluid. No free air. 2. Dodge catheter in bladder. NG coiled in stomach. Trace right pleural effusion. Chest X-Ray 03/13/18 12:09 CONCLUSION: No acute cardiopulmonary disease identified. Abdomen X-Ray 03/14/18 06:00 CONCLUSION: 1. Findings consistent with colonic ileus. Chest X-Ray 03/14/18 06:00 CONCLUSION: 1. Stable tubes and lines. 2. No acute abnormality or significant interval change. Head CT 03/15/18 00:00 CONCLUSION: 1. Evolving right frontal lobe parenchymal hemorrhage with cerebral edema and worsening leftward midline shift. 2. Minimal left frontal and parietal subarachnoid blood without associated mass effect. Abdomen X-Ray 03/17/18 08:00 CONCLUSION: Reduction in the gaseous distention of the colon. Head CT 03/21/18 00:00 CONCLUSION: 1. There has been an interval increase in the amount of [id number] midline shift in the frontal region, now measuring 2.1 cm. 2. Involving right frontal blood products with further decrease in the density of the right frontal hematoma. Chest X-Ray 03/21/18 11:20 CONCLUSION: Under inflation with atelectasis at the lung bases. Otherwise, no acute finding is identified. Chest X-Ray 03/22/18 10:19 CONCLUSION: No acute cardiopulmonary disease. Chest X-Ray 03/25/18 06:00 CONCLUSION: Lungs remain clear. No significant change line/tube positions as above. Chest X-Ray 03/26/18 06:00 CONCLUSION: Endotracheal tube and nasogastric tube no longer seen. No acute cardiopulmonary disease identified. Chest X-Ray 03/28/18 06:00 CONCLUSION: 1. Lungs are clear. 2. Interval placement of a nasogastric tube with the tip projecting over the expected location of the gastric fundus Head CT 04/04/18 00:00 CONCLUSION: 1. The patient's exam is significantly improved compared to prior dated 2017. There is significant interval reduction in the amount of edema involving the right frontal cortex. No new areas of hemorrhage are identified. . - Procedures PEG right decompressive craniectomy 03/22/18 [facility] 03/22/18 Right frontotemporal parietal decompressive craniectomy and Duroplasty 03/22/18 Left frontal bur hole with placement of an intracranial pressure monitor Assessment and Plan - Assessment (1) Intracranial hemorrhage following injury Code(s): S06.309A - Unspecified focal traumatic brain injury with loss of consciousness of unspecified duration, initial encounter Status: Acute (2) Traumatic brain injury Code(s): S06.9X9A - Unspecified intracranial injury with loss of consciousness of unspecified duration, initial encounter Status: Acute (3) Fall Code(s): W19.XXXA - Unspecified fall, initial encounter Status: Chronic (4) Cocaine abuse Code(s): F14.10 - Cocaine abuse, uncomplicated Status: Chronic (5) ETOH abuse Code(s): F10.10 - Alcohol abuse, uncomplicated Status: Chronic (6) Dysphagia Code(s): R13.10 - Dysphagia, unspecified Status: Acute - Plan 62-year-old male admitted secondary to intracranial hemorrhage Right frontal IPH 53.3 cm. SAH bilat frontal lobes, right parietal, temporal. Right frontotemporal SDH status post emergency craniectomy for decompression for worsening midline shift right to left 2.1 cm s/p Fall, ?syncope Daily alcohol use/Cocaine abuse s/p Right frontotemporal parietal decompressive craniectomy and Duroplasty by Dr. Chacko. Uri Hyman PAC - plan for bone flap after next week. repeat head CT 7/30 with improvement Tube feed placement 03/30/18 Continue supportive care Hydralazine 25mg Q8, Norvasc 10 daily - Low BP, Hydralazine discontinued. Hold Norvasc. Monitor BP. Continue on Keppra Continue with PT/OT - PT recommends rehab at discharge Seizure precautions Palliative care following, appreciate assistance. Per note, patient has improved tremendously. Feels he has capacity to make medical decisions with support of family. Recommended psych consult to assess capacity. Psychiatry consulted, appreciate assistance. 04/08 patient asking to eat. ST re-evaluated and patient given puree diet with honey thickened liquids. Consult event marketing representative for calorie count. Tachycardic patient has no cardiac complaints give small IVF bolus add free water flushes obtain EKG cardiac monitoring monitor Acute respiratory failure secondary to failure to protect airway-resolved extubated MRSA pneumonia Tobacco abuse Elevated carboxyhemoglobin level consistent with history of smoking Extubated 03/25/2018 Continue as needed duo nebs continue to monitor respiratory status Leukopenia, resolved WBC 3.6, repeat white count 6.4 monitor CBC as indicated Positive sputum culture MRSA Completed treatment with Vancomycin and Rocephin Hyponatremia, resolved Continue on salt tablets monitor Na level - 136 04/10 DVT prophylaxis SCDs No chemoprophylaxis anticoagulation due to recent intracranial bleed Code Status: Full Discussed Condition With: patient, nursing staff, Dr. Stratton Discharge Planning: Difficult placement. No payor source. CM assisting with ongoing discharge plan. (2) Traumatic brain injury Qualifiers: Encounter type: subsequent encounter
[2018-04-11] MEDS: Sennosides Liq 8.8 MG/5 ML UDC NG/OG SCH ×2 (09:21→23:16)
[2018-04-11] MEDS: amLODIPine 5 MG Tablet NG/OG SCH (09:21)
[2018-04-11] MEDS: Folic Acid 1 MG Tablet PO SCH (09:21)
[2018-04-11] MEDS: Chlorhexidine 0.12% Oral Kit 15 ML UDC OROPHARYNG SCH ×2 (09:21→23:18)
[2018-04-11] MEDS: Sodium Chloride 1 GM Tablet PO SCH ×2 (12:49→23:16)
[2018-04-11] MEDS ORDERED: Sodium Chlor 0.9% Inj 250 ML IV.SIG ONE (13:39)
[2018-04-12] MEDS: Oral Hygiene Kit OROPHARYNG SCH ×3 (04:48→18:47)
[2018-04-12] MEDS: Carboxymethylcellulose 0.5% Opth Drops 15 ML Bottle EACH EYE SCH ×2 (06:40→14:20)
[2018-04-12] MEDS: Chlorhexidine 0.12% Oral Kit 15 ML UDC OROPHARYNG SCH ×2 (09:49→20:43)
[2018-04-12] MEDS: Folic Acid 1 MG Tablet PO SCH (09:52)
[2018-04-12] MEDS: Sennosides Liq 8.8 MG/5 ML UDC NG/OG SCH ×2 (09:53→20:43)
--- NOTE | 2018-04-12 11:38 | P.PNIM ---
Subjective Interval history: f/u for AMS more awake today, follows commands, no complaints Physical Exam Vital signs: Vital Signs 04/11/18 12:00 04/11/18 16:00 04/11/18 20:00 Temperature 98.5 F 97.9 F 98.9 F Pulse Rate 96 H 83 86 Respiratory Rate 16 18 16 Blood Pressure 120/74 117/76 119/80 Pulse Oximetry 95 97 97 04/12/18 00:00 04/12/18 04:00 04/12/18 07:35 Temperature 98.0 F 98.2 F Pulse Rate 85 92 H Respiratory Rate 16 18 16 Blood Pressure 105/69 112/70 Pulse Oximetry 97 96 04/12/18 08:00 Temperature 97.2 F L Pulse Rate 88 Respiratory Rate 23 Blood Pressure 104/69 Pulse Oximetry 96 Intake & Output 04/11/18 04/12/18 04/12/18 18:59 06:59 18:59 Intake Total 480 / 480 Balance 480 / 480 Weight 59.8 kg Intake: Oral 480 / 480 Other: # Voids 2 2 # Incontinent Voids 1 Date of Last Bowel Movement 04/12/18 # Bowel Movements 1 2 Narrative: GENERAL:NOt in distress HEAD: s/p right sided craniectomy, incision healing well. No bone flap. CARDIOVASCULAR:RRR, without murmurs, gallops, or rubs. RESPIRATORY: No accessory muscle use. Breath sounds equal bilaterally. Poor effort, clear to auscultation anteriorly. GASTROINTESTINAL: Abdomen soft, non-tender, nondistended. PEG site C/D/I. GENITOURINARY: Condom catheter in place with clear urine in bag. MUSCULOSKELETAL: No cyanosis or edema. NEURO: Awake, alert, oriented to place and self. Moves all extremities spontaneously. Minimal verbalization. - Urinary Catheter Management Indwelling Temp Sensing Catheter Cath placed during this visit: yes, but has since been removed by the nurse Reason for continuing: Not indwelling catheter Insertion date: 03/12/18 Insertion time: 05:30 Removal date: 03/25/18 Removal time: 18:00 Indwelling Urethral Catheter Cath placed during this visit: yes, but has since been removed by the nurse Reason for continuing: Decision to DC catheter Insertion date: 03/22/18 Insertion time: 17:30 Removal date: 03/25/18 Removal time: 18:00 Condom Cath placed during this visit: yes, but has since been removed by the nurse Reason for continuing: Not indwelling catheter Removal date: 03/25/18 Removal time: 18:00 Results - Labs CBC & Chem 7: 04/10/18 12:43 04/10/18 08:24 Laboratory Results - last 24 hr 04/11/18 21:07 POC Glucose 158 H - Procedures PEG right decompressive craniectomy 03/22/18 with placement of ICP monitor by Dr. Chacko, [facility] 03/23/18 03/22/18 Right frontotemporal parietal decompressive craniectomy and Duroplasty 03/22/18 Left frontal bur hole with placement of an intracranial pressure monitor Assessment and Plan - Assessment (1) Intracranial hemorrhage following injury Code(s): S06.309A - Unspecified focal traumatic brain injury with loss of consciousness of unspecified duration, initial encounter Status: Acute (2) Traumatic brain injury Code(s): S06.9X9A - Unspecified intracranial injury with loss of consciousness of unspecified duration, initial encounter Status: Acute (3) Fall Code(s): W19.XXXA - Unspecified fall, initial encounter Status: Chronic (4) Cocaine abuse Code(s): F14.10 - Cocaine abuse, uncomplicated Status: Chronic (5) ETOH abuse Code(s): F10.10 - Alcohol abuse, uncomplicated Status: Chronic (6) Dysphagia Code(s): R13.10 - Dysphagia, unspecified Status: Acute - Plan 62-year-old male admitted secondary to intracranial hemorrhage Right frontal IPH 53.3 cm. SAH bilat frontal lobes, right parietal, temporal. Right frontotemporal SDH status post emergency craniectomy for decompression for worsening midline shift right to left 2.1 cm s/p Fall, ?syncope Daily alcohol use; Cocaine abuse - s/p Right frontotemporal parietal decompressive craniectomy and Duroplasty by Dr. Chacko, plan for bone flap after next week. -repeat head CT 04/04 with improvement - tube feed placement 03/30/18, Continue on Keppra - Seizure precautions Tachycardic, HTN - patient has no cardiac complaints, Norvasc on hold, hydralazine stopped. Acute respiratory failure secondary to failure to protect airway-resolved extubated MRSA pneumonia Tobacco abuse Elevated carboxyhemoglobin level consistent with history of smoking Extubated 03/25/2018 Continue as needed duo nebs continue to monitor respiratory status Leukopenia, resolved WBC 3.6, repeat white count 6.4 monitor CBC as indicated Positive sputum culture MRSA Completed treatment with Vancomycin and Rocephin Hyponatremia, resolved Continue on salt tablets monitor Na level - 136 04/10 DVT prophylaxis SCDs No chemoprophylaxis anticoagulation due to recent intracranial bleed Palliative care following, appreciate assistance. Recommended psych consult to assess capacity. Psychiatry consulted, appreciate assistance. ST re-evaluated and patient given puree diet with honey thickened liquids. Consult extraction supervisor for calorie count, ends today. Code Status: Full Discharge Planning: Difficult placement. No payor source. CM assisting with ongoing discharge plan. (2) Traumatic brain injury Qualifiers: Encounter type: subsequent encounter
[2018-04-12] MEDS: Sodium Chloride 1 GM Tablet PO SCH (12:45)
--- NOTE | 2018-04-12 12:48 | P.PNPAL ---
Reason for Visit Reason for visit: a. To assist with evaluation and management of symptoms including:pain, anxiety b. To assist medical decision maker(s) with: better understanding of current medical conditions; weighing benefits/burdens of medical treatment options; making medical treatment decisions. Subjective Subjective/Interval History: Pt seen today to follow up on comfort, goals, exploration of healthcare surrogate designation. Patient has remained stable. No new labs or imaging. Most recent labs from 04/10 chemistry, CBC unremarkable. Some anemia which appears to be baseline for patient. Intermittently confused and disrupting treatments, apparently briefly required restraints yesterday however has since improved. Still with poor oral intake, receiving supplemental feeding via PEG tube. Dietitian following calorie count in process to be completed 04/13. ST, OT following. ST recommendations continue to be pured diet with honey thick liquids due to dysphagia. Case management working with family regarding discharge options, referral has been sent to SNF. Patient seen in room, dual visit with Rupinder Soto [employer] palliative social work lecturer. He is apparently awake because he responds to my initial greeting. However he keeps a blanket over his head and refuses to remove it. He primarily communicates via nodding yes and no, gesturing. When I request him to speak he does so, voice is soft, slightly hoarse. Very limited verbalizations. He is oriented to person, place, family. He is able to name the president. Difficult to fully assess due to limited cooperation however he appears to be oriented and have reasonable insight into hospitalization. He indicates he is in the hospital due to injury to his brain. He tells me he slipped and fell at home while cleaning. He endorses a headache currently. Ask if he is called and notified the nurse he says no. Offered to notify nursing so he may receive Tylenol he is in agreement with this. He denies any other complaints currently no dyspnea. He does endorse some nausea earlier, intermittently. He will not further qualify. Review with him calorie count in process, discharge planning in process. He does not further engage. Explore with him family members in whom he would trust to make decisions should he be incapacitated he indicates it would be his son offer him assistance with signing a healthcare surrogate he initially agrees however refuses to uncover his head and signed. He requests that we leave the document with him so that he may review it. Unable to fully explore goals due to patient's reluctance to engage. He does allow me to complete PE however insists on keeping his head covered by a blanket. I am able to visualize right cranial deficit secondary to craniotomy Objective Vital Signs: Vital Signs 04/11/18 16:00 04/11/18 20:00 04/12/18 00:00 Temperature 97.9 F 98.9 F 98.0 F Pulse Rate 83 86 85 Respiratory Rate 18 16 16 Blood Pressure 117/76 119/80 105/69 Pulse Oximetry 97 97 97 04/12/18 04:00 04/12/18 07:35 04/12/18 08:00 Temperature 98.2 F 97.2 F L Pulse Rate 92 H 88 Respiratory Rate 18 16 23 Blood Pressure 112/70 104/69 Pulse Oximetry 96 96 Intake & Output 04/11/18 04/12/18 04/12/18 18:59 06:59 18:59 Intake Total 480 / 480 Balance 480 / 480 Weight 59.8 kg Intake: Oral 480 / 480 Other: # Voids 2 2 # Incontinent Voids 1 Date of Last Bowel Movement 04/12/18 # Bowel Movements 1 2 Physical Exam: CONSTITUTIONAL/GENERAL: This is a frail 62 year old male. Withdrawn, limited engagement no apparent distress SKIN: No jaundice, rashes, or lesions. Well-healed cranial incision right head , obvious concave area from right bone flap removal. HEAD: right craniotiomy, duroplasty, asymetrical. EYES: Will not remove blanket from face CARDIOVASCULAR: Regular rate and rhythm without murmur. No JVD. Peripheral pulses symmetric. RESPIRATORY/CHEST: Symmetric, unlabored respirations. Clear to auscultation. Breath sounds equal bilaterally. On room air. GASTROINTESTINAL: Abdomen soft, non-tender, nondistended. peg tube in place. Tube feed infusing. Site asymptomatic. GENITOURINARY: Without palpable bladder distension. External catheter in place. MUSCULOSKELETAL: Extremities without clubbing, cyanosis, or edema. No joint tenderness or effusion noted. LYMPHATICS: No palpable cervical or supraclavicular adenopathy. NEUROLOGICAL: Awake and alert. Oriented 23. Reluctant to engage in conversation. Appears to have some limited insight into hospitalization. Follows commands, but at times not cooperative. Moves all 4 extremities. PSYCHIATRIC: Somewhat withdrawn and reluctant to engage Diagnostic Tests Laboratory: Laboratory Results - last 72 hr 04/09/18 04/09/18 04/09/18 14:22 14:35 19:12 WBC 3.6 L RBC 3.52 L Hgb 10.9 L Hct 33.0 L MCV 93.8 MCH 30.9 MCHC 33.0 RDW 13.7 Plt Count 341 MPV 7.4 Neut % (Auto) 62.3 Lymph % (Auto) 24.4 [place] % (Auto) 10.1 H Eos % (Auto) 2.3 Baso % (Auto) 0.9 Neut # (Auto) 2.2 Lymph # (Auto) 0.9 L [place] # (Auto) 0.4 Eos # (Auto) 0.1 Baso # (Auto) 0.0 WBC Differential . Differential Comment Auto diff final Sodium 137 Potassium 4.3 Chloride 100 Carbon Dioxide 33.1 H Anion Gap 4 L BUN 14 Creatinine 0.74 Estimated GFR Greater than 89 POC Glucose Random Glucose 128 H Lactic Acid 1.3 Calcium 8.8 Phosphorus 4.0 Magnesium 2.2 Total Bilirubin 0.2 AST 36 ALT 18 Alkaline Phosphatase 85 Ammonia Total Protein 7.9 Albumin 2.9 L 04/10/18 04/10/18 04/10/18 08:24 12:43 12:43 WBC 6.4 D RBC 3.59 L Hgb 10.9 L Hct 33.1 L MCV 92.0 MCH 30.4 MCHC 33.0 RDW 13.6 Plt Count 344 MPV 6.7 L Neut % (Auto) 73.2 H Lymph % (Auto) 16.3 [place] % (Auto) 8.5 H Eos % (Auto) 1.5 Baso % (Auto) 0.5 Neut # (Auto) 4.7 Lymph # (Auto) 1.0 [place] # (Auto) 0.5 Eos # (Auto) 0.1 Baso # (Auto) 0.0 WBC Differential . Differential Comment Auto diff final Sodium 136 Potassium 4.1 Chloride 99 Carbon Dioxide 28.0 Anion Gap 9 BUN 14 Creatinine 0.65 Estimated GFR Greater than 89 POC Glucose Random Glucose 118 H Lactic Acid Calcium 9.1 Phosphorus Magnesium Total Bilirubin AST ALT Alkaline Phosphatase Ammonia 21 Total Protein Albumin 04/11/18 21:07 WBC RBC Hgb Hct MCV MCH MCHC RDW Plt Count MPV Neut % (Auto) Lymph % (Auto) [place] % (Auto) Eos % (Auto) Baso % (Auto) Neut # (Auto) Lymph # (Auto) [place] # (Auto) Eos # (Auto) Baso # (Auto) WBC Differential Differential Comment Sodium Potassium Chloride Carbon Dioxide Anion Gap BUN Creatinine Estimated GFR POC Glucose 158 H Random Glucose Lactic Acid Calcium Phosphorus Magnesium Total Bilirubin AST ALT Alkaline Phosphatase Ammonia Total Protein Albumin Result Diagrams: 04/10/18 12:43 04/10/18 08:24 Assessment and Plan - Disease Oriented Problem List (1) SDH (subdural hematoma) Comment: Right frontal intraparenchymal hemorage s/p fall. Underwent decompressive creniectomy and duroplasty 03/23/2018 Dr. Chacko. (2) MRSA pneumonia Comment: Had been intubated for airway protection and for thick secretions. Pt extubated 03/25 (3) Cocaine abuse (4) Tobacco abuse (5) COPD (chronic obstructive pulmonary disease) (6) Asthma - Symptom Scale (1) Head ache Comment: did not quantify and not cooperative to characterize. Pertinent Non-Medical Issues: Psychosocial:worked in [employer]. hx of etoh drug abuse. Has 2 chilren, on Daughter (i do not have name or contact at this point) and Son Wilson Jimenez [phone] Spiritual:did not disclose Legal:He had stated he want son Wilson Jimenez has health care surrogate, but was not very cooperative, and did not want to designate health care surrogate today Ethical issues impacting care: Important Contacts: Son Wilson Jimenez [phone] Daughter( unable to obtain today) family did get somewhat emotional and son needed to go find documents for pt's insurance. Prognosis: Pt is 62 male (copd/asthma/etoh/tobacco/coccaine abuse) who had syncopy, fell and hit his head. He had a 5x 3 right frontal lobe hemorrhage. Initially it was medical managment, but subsequent ct and neuro status worsened. 03/11 patient was intubated. 03/21: CT Head significant worsening of the [id number] midline shift frontal region, now measuring 2.1 cm, decreasing density of r frontal hematoma. 03/22 pt underwent right frontotemporal parietal decompressive craniectomy and duroplasty by Dr. Chacko. Eventually he was able to become alert enough and protect his airway enough to undergo medical extubation. He pulled his NG tube, so was peg tube was placed on 03/30. Neurologically he seem to be making progress with hospitalist documenting he is ambulating with assisstance in a walker. He has improve tremedously and I think if he is compliant there is a good chance he can get strong enough to stop tube feedings and improve. I will check with neurosurgery but I feel his prognosis is > 6 months at this point if he was compliant. Code Status: Full Code (by default) Plan: == capacity-mental status fluctuates status post TBI. He appears at the very least can participate in making medical decisions, with the support of family. At the very least I feel he can designate who he wants as his health care surrogate to be. Offered assistance with this today he again declined to complete the wish to review the document further. == medical decision maker. he refused to complete Health care surrogate form. By DEENA allison, proxy would be Pt's son Wilson Jimenez and daughter . == code status: by default is full code. == Goals of care: Patient appears to have made general improvement during prolonged hospital course. Today is hospital day 40. Likely would continue to make slow improvement if able to cooperate with ongoing aggressive treatments. May not be appropriate for hospice. Patient withdrawn and with very little willingness to engage and participate. During prior palliative care interaction with patient's son who would be 1 of the proxies, goals were aggressive, not comfort oriented, not interested in hospice . == Symptom: BATISTA- s/p surgery, intraprenchymal bleed. Medical team is aware of his complaints of headache today, he has PRN Tylenol available, notified nursing of BATISTA today. May consider Rolette 5/325 po/sl prn for breakthrough pain. nausea-receiving tube feeding. Also on calorie count for poor oral intake. Reports intermittent nausea. He is unable to further quantify or qualify. Having bowel movements. Has prn Zofran available; has not requested . will cont to evaluate, he is unable to describe frequency, possibly r/t TF? == palliative care will follow as pt's clinical condition evolves. Attestation Attestation: To help prompt me to consider important information that might be impacting today's encounter and assessment, information from prior notes written by myself or my colleagues may have been "brought forward" into today's note. My signature on this note, however, is an attestation that I personally performed the exam, history, and/or decision-making noted today, and, unless otherwise indicated, the interactions with patient, family, and staff as well as the review of records all occurred today. I also attest that the listed assessment and stated plan reflect my best clinical judgment today based on the combination of historical information, prior notes, and today's exam/ interactions. When time spent is documented, it refers only to time spent today by the signer, or if indicated, combined time spent today by collaborating physician/nurse practitioner.
--- NOTE | 2018-04-12 23:36 | ECG ---
Date Performed: 04/11/2018 Time Performed: 14:34:57 PTAGE: 62 years EKG: Sinus rhythm NORMAL ECG PREVIOUS TRACING : 03/03/2018 23.06 Compared to previous tracing, rate has increased DOCTOR: Luis Antonio Zafar Interpretating Date/Time 04/12/2018 23:35:22
[2018-04-13] MEDS: Sodium Chloride 1 GM Tablet PO SCH ×2 (01:23→10:08)
[2018-04-13] MEDS: Carboxymethylcellulose 0.5% Opth Drops 15 ML Bottle EACH EYE SCH ×3 (01:24→13:38)
[2018-04-13] MEDS: Oral Hygiene Kit OROPHARYNG SCH ×4 (01:24→15:50)
[2018-04-13] MEDS: Chlorhexidine 0.12% Oral Kit 15 ML UDC OROPHARYNG SCH ×2 (07:41→21:29)
[2018-04-13] MEDS: Folic Acid 1 MG Tablet PO SCH (08:14)
[2018-04-13] MEDS: Sennosides Liq 8.8 MG/5 ML UDC NG/OG SCH ×2 (08:16→21:30)
--- NOTE | 2018-04-13 10:16 | P.DIET ---
Nutritional Evaluation Type of nutrition evaluation: follow-up Nutrition consult regarding: Tube Feeding Nutrition screening: [facility] [place] (04/09/18 [facility] [place] Calorie Counting) Subjective Subjective Comments: Pt w/bed covers over his head when calorie count envelope collected Objective - Diagnosis ICH, SAH, Syncope - Objective % IBW: 87 (IBW = 166#) Body Weight Used for Calculations: Actual (65.4 kg) Energy Needs - Lower Range (kCal/kg): 28 Energy Needs - Upper Range (kCal/kg): 33 Lower Limit kCal/kg (kCals): 1,831 Upper Limit kCal/kg (kCals): 2,158 Lower Limit Protein Factor (Grams per Kg): 1.2 Upper Limit Protein Factor (Grams per Kg): 1.5 Lower Protein Needs (Protein): 79 Upper Protein Needs (Protein): 98 Fluid Factor (ml/kg): 28 Estimated Fluid Needs (ml): 1,831 Dietitian Reviewed in Medical Record: Current diet, Curent medications, Intake & Output, Labs, Medical history, Tube feeding, Wound/DTI Diet Order: TF'ing Jevity 1.5 @ goal rate 55ml/hr and Pureed diet w/HTL Speech Therapy Recommendations: Yes (Pureed w/Liquids thickened to honey consistency) Objective Comments: PMH: COPD, Asthma, tobacco abuse, daily ETOH use 03/22 R front temporal parietal decompressive craniectomy Integumentary: coccyx pressure injury PEG placement 03/30/18 Meds Include: Keppra, Norvasc, Catapres, Lactulose, Theragran, Thiamine, Folic Acid +1BM Feeding - Current Tube Feeding Tube Feeding Product: Jevity 1.5 Tube Feeding Rate: 55 (mls/hr) Tube Feeding Route: gastrostomy Current kCals Provided by Tube Feedin,980 Current Protein Provided by Tube Feeding (gPRO): 84 Current Free H2O Provided (m/l): 1,003 - Current PO Supplement Current Supplement: Ensure Enlive Current Frequency of Supplement: Three times a day Current kCals Provided by Supplement: 350 Current Protein Provided by Supplement: 20 Supplement Comments: plus Ensure Pudding(= 170 kcal and 4g protein per serving) - kCal Count Day 1 kCal Intake: 1,310 Day 1 Protein Intake: 78 Day 2 kCal Intake: 1,691 Day 2 Protein Intake: 104 Day 3 kCal Intake: 1,373 Day 3 Protein Intake: 71 kCal Comments: Day#2 w/estimated documentation of 75% for both lunch and dinner Assessment Assessment: Pt remains at high nutrition risk r/t need for TFing. He was extubated on 03/25 and PEG tube placed 03/30. Pt tolerating TF'ing w/ Jevity 1.5 @ goal rate of 55 mls/hr. Diet advanced per ST, as ordered. MDC for Calorie Count 04/10 through 04/12 w/Adequate po intake w/80% for protein needs and 100% for kcal needs. Rec to Discontinue TF'ing for now and repeat Calorie Count 04/15 through 04/17 w/Nutrition Recs 04/18, to determine whether PEG tube continues to be needed. Continue Ensure Enlive TID. Continue Ensure Pudding TID. Variable wts recorded -monitor Recommendations: 1.MDC for Calorie Count 04/10 through 04/12 w/Adequate po intake w/80% for protein needs and 100% for kcal needs 2. Rec to Discontinue TF'ing for now and repeat Calorie Count 04/15 through w/Nutrition Recs 04/18, to determine whether PEG tube continues to be needed- noted PEG tube placed 03/30 3.Continue Ensure Enlive TID 4.Continue Ensure Pudding TID Dietitian to Monitor: Lab values, Supplement acceptance, Intake & Output, Diet tolerance, Weight change, PO Intake, Wound/skin status, Medical course
--- NOTE | 2018-04-13 12:39 | P.PNPAL ---
Reason for Visit Reason for visit: a. To assist with evaluation and management of symptoms including:pain, anxiety b. To assist medical decision maker(s) with: better understanding of current medical conditions; weighing benefits/burdens of medical treatment options; making medical treatment decisions. Subjective Subjective/Interval History: Pt seen today to follow up on comfort, goals, exploration of healthcare surrogate designation. Patient has remained stable. No new labs or imaging. Intermittently confused and disrupting treatments, briefly required restraints however has since improved. Dietitian following calorie count completed today. Per English Drawer / recorded intake, pt w adequate PO intake. rec. to d/w TF for now, and repeat Calorie count 04/15-04/17, cont ensure pudding, ensure enlive supplement . Pt seen in room, he is alert, watching TV. He does not have blanket over his head today. He is mostly oriented. He endorses feeling ok. Denies dyspnea. Denies GI complaints. C/o headache, indicates he has not asked for Tylenol, advise I would notify nursing. Voice is very weak, soft. He is minimally verbal requires repeat questions. Asked about why he is not verbalizing he indicates he is always quiet. Review with him HCS surrogate designation form which palliative left yesterday. he indicates he does want his son Wilson to serve as HCS. Offer him HCS form to sign, he refuses says he is too weak. offer to assist with holding paper- he says "sign for me". He has no other complaints or concerns. I do note that he has soiled his linens, notified nursing/aid to assist with. Exam benign. Objective Vital Signs: Vital Signs 04/12/18 16:00 04/12/18 20:00 04/13/18 00:00 Temperature 97.8 F 98 F 98.1 F Pulse Rate 89 92 H 87 Respiratory Rate 21 18 18 Blood Pressure 117/78 124/73 126/74 Pulse Oximetry 97 97 97 04/13/18 07:22 04/13/18 08:00 Temperature 97.8 F 97.6 F Pulse Rate 83 83 Respiratory Rate 18 24 Blood Pressure 132/84 122/81 Pulse Oximetry 97 98 Intake & Output 04/12/18 04/13/18 04/13/18 18:59 06:59 18:59 Output Total Balance -1 / -1 Weight 59.6 kg Output: Urine/Stool Mix Other: # Voids 2 1 Date of Last Bowel Movement 04/12/18 04/12/18 # Bowel Movements 1 Physical Exam: CONSTITUTIONAL/GENERAL: This is a frail 62 year old male. Withdrawn, limited engagement no apparent distress SKIN: No jaundice, rashes, or lesions. Well-healed cranial incision right head , obvious concave area from right bone flap removal. HEAD: right craniotomy, asymmetrical. EYES: pupils equal, reactive. no injection or drainage CARDIOVASCULAR: Regular rate and rhythm without murmur. No JVD. Peripheral pulses symmetric. RESPIRATORY/CHEST: Symmetric, unlabored respirations. Clear to auscultation. Breath sounds equal bilaterally. On room air. GASTROINTESTINAL: Abdomen soft, non-tender, nondistended. peg tube in place. Tube feed infusing. Site asymptomatic. soiled linens with stool, urine GENITOURINARY: Without palpable bladder distension. MUSCULOSKELETAL: Extremities without clubbing, cyanosis, or edema. No joint tenderness or effusion noted. NEUROLOGICAL: Awake and alert. Oriented 23. Reluctant to engage in conversation. Appears to have some limited insight into hospitalization. Follows commands. Moves all 4 extremities. PSYCHIATRIC: Somewhat withdrawn and reluctant to engage Diagnostic Tests Laboratory: Laboratory Results - last 72 hr 04/10/18 04/10/18 04/10/18 12:43 12:43 12:43 WBC 6.4 D RBC 3.59 L Hgb 10.9 L Hct 33.1 L MCV 92.0 MCH 30.4 MCHC 33.0 RDW 13.6 Plt Count 344 MPV 6.7 L Neut % (Auto) 73.2 H Lymph % (Auto) 16.3 Daniels % (Auto) 8.5 H Eos % (Auto) 1.5 Baso % (Auto) 0.5 Neut # (Auto) 4.7 Lymph # (Auto) 1.0 Daniels # (Auto) 0.5 Eos # (Auto) 0.1 Baso # (Auto) 0.0 WBC Differential . Differential Comment Auto diff final POC Glucose Ammonia 21 Levetiracetam 14.5 04/11/18 21:07 WBC RBC Hgb Hct MCV MCH MCHC RDW Plt Count MPV Neut % (Auto) Lymph % (Auto) Daniels % (Auto) Eos % (Auto) Baso % (Auto) Neut # (Auto) Lymph # (Auto) Daniels # (Auto) Eos # (Auto) Baso # (Auto) WBC Differential Differential Comment POC Glucose 158 H Ammonia Levetiracetam Result Diagrams: 04/10/18 12:43 04/10/18 08:24 Assessment and Plan - Disease Oriented Problem List (1) SDH (subdural hematoma) Comment: Right frontal intraparenchymal hemorage s/p fall. Underwent decompressive creniectomy and duroplasty 03/23/2018 Dr. Chacko. (2) MRSA pneumonia Comment: Had been intubated for airway protection and for thick secretions. Pt extubated 03/25 (3) Cocaine abuse (4) Tobacco abuse (5) COPD (chronic obstructive pulmonary disease) (6) Asthma - Symptom Scale (1) Head ache Comment: did not quantify and not cooperative to characterize. Pertinent Non-Medical Issues: Psychosocial:worked in [employer]. hx of etoh drug abuse. Has 2 chilren, on Daughter (i do not have name or contact at this point) and Son Wilson Jimenez [phone] Spiritual:did not disclose Legal:He had stated he want son Wilson Jimenez has health care surrogate, but was not very cooperative, and did not want to designate health care surrogate today Ethical issues impacting care: Important Contacts: Son Wilson Jimenez [phone] Daughter( unable to obtain today) family did get somewhat emotional and son needed to go find documents for pt's insurance. Prognosis: Pt is 62 male (copd/asthma/etoh/tobacco/coccaine abuse) who had syncopy, fell and hit his head. He had a 5x 3 right frontal lobe hemorrhage. Initially it was medical managment, but subsequent ct and neuro status worsened. 03/11 patient was intubated. 03/21: CT Head significant worsening of the ptfjc-pd-oxil midline shift frontal region, now measuring 2.1 cm, decreasing density of r frontal hematoma. 03/22 pt underwent right frontotemporal parietal decompressive craniectomy and duroplasty by Dr. Chacko. Eventually he was able to become alert enough and protect his airway enough to undergo medical extubation. He pulled his NG tube, so was peg tube was placed on 03/30. Neurologically he seem to be making progress with hospitalist documenting he is ambulating with assisstance in a walker. He has improve tremedously and I think if he is compliant there is a good chance he can get strong enough to stop tube feedings and improve. I will check with neurosurgery but I feel his prognosis is > 6 months at this point if he was compliant. Code Status: Full Code (by default) Plan: == capacity-mental status fluctuates status post TBI. He appears at the very least can participate in making medical decisions, with the support of family. At the very least I feel he can designate who he wants as his health care surrogate to be. Offered assistance with this today he again declined to complete the wish to review the document further. == medical decision maker. he refuses to sign HCS form states too weak, but verbally requests us "sign for him" to designate son Wilson. By DEENA allison, proxy would be Pt's son Wilson Jimenez and daughter . == code status: by default is full code. == Goals of care: Patient appears to have made general improvement during prolonged hospital course. Likely would continue to make slow improvement if able to cooperate with ongoing aggressive treatments. May not be appropriate for hospice. Patient withdrawn and with very little willingness to engage and participate. During prior palliative care interaction with patient's son who would be 1 of the proxies, goals were aggressive, not comfort oriented, not interested in hospice . == Symptom: BATISTA- s/p surgery, intraparenchymal bleed. he has PRN Tylenol available, notified nursing of BATISTA today. May consider [facility] 5/325 po/sl prn for breakthrough pain. nausea-receiving tube feeding. Was on calorie count for poor oral intake- adquate intake per recording, hand molder meat rec. d/c TF and recount calories 04/15-. Prev. Reports intermittent nausea. He is unable to further quantify or qualify. No nausea today. Having bowel movements. Has prn Zofran available; has not requested . will cont to evaluate, he is unable to describe frequency, possibly r/t TF? == palliative care will follow as pt's clinical condition evolves. Attestation Attestation: To help prompt me to consider important information that might be impacting today's encounter and assessment, information from prior notes written by myself or my colleagues may have been "brought forward" into today's note. My signature on this note, however, is an attestation that I personally performed the exam, history, and/or decision-making noted today, and, unless otherwise indicated, the interactions with patient, family, and staff as well as the review of records all occurred today. I also attest that the listed assessment and stated plan reflect my best clinical judgment today based on the combination of historical information, prior notes, and today's exam/ interactions. When time spent is documented, it refers only to time spent today by the signer, or if indicated, combined time spent today by collaborating physician/nurse practitioner.
--- NOTE | 2018-04-13 15:14 | P.PNIM ---
Subjective Interval history: No overnight events, no fever or chills. No complaints. Physical Exam Vital signs: Vital Signs 04/12/18 16:00 04/12/18 20:00 04/13/18 00:00 Temperature 97.8 F 98 F 98.1 F Pulse Rate 89 92 H 87 Respiratory Rate 21 18 18 Blood Pressure 117/78 124/73 126/74 Pulse Oximetry 97 97 97 04/13/18 07:22 04/13/18 08:00 04/13/18 12:00 Temperature 97.8 F 97.6 F 97.3 F L Pulse Rate 83 83 86 Respiratory Rate 18 24 23 Blood Pressure 132/84 122/81 117/78 Pulse Oximetry 97 98 97 Intake & Output 04/12/18 04/13/18 04/13/18 18:59 06:59 18:59 Output Total Balance - Weight 59.6 kg Output: Urine/Stool Mix Other: # Voids 2 1 Date of Last Bowel Movement 04/12/18 04/12/18 # Bowel Movements 1 Narrative: GENERAL:NOt in distress HEAD: s/p right sided craniectomy, incision healing well. No bone flap. CARDIOVASCULAR:RRR, without murmurs, gallops, or rubs. RESPIRATORY: No accessory muscle use. Breath sounds equal bilaterally. Poor effort, clear to auscultation anteriorly. GASTROINTESTINAL: Abdomen soft, non-tender, nondistended. PEG site C/D/I. GENITOURINARY: Condom catheter in place with clear urine in bag. MUSCULOSKELETAL: No cyanosis or edema. NEURO: Awake, alert, oriented to place and self. Moves all extremities spontaneously. Minimal verbalization. Eating lunch. - Urinary Catheter Management Indwelling Temp Sensing Catheter Cath placed during this visit: yes, but has since been removed by the nurse Reason for continuing: Not indwelling catheter Insertion date: 03/12/18 Insertion time: 05:30 Removal date: 03/25/18 Removal time: 18:00 Indwelling Urethral Catheter Cath placed during this visit: yes, but has since been removed by the nurse Reason for continuing: Decision to DC catheter Insertion date: 03/22/18 Insertion time: 17:30 Removal date: 03/25/18 Removal time: 18:00 Condom Cath placed during this visit: yes, but has since been removed by the nurse Reason for continuing: Not indwelling catheter Removal date: 03/25/18 Removal time: 18:00 Results - Labs CBC & Chem 7: 04/10/18 12:43 04/10/18 08:24 - Procedures PEG right decompressive craniectomy 03/22[facility]18 [facility] 03/22/18 Right frontotemporal parietal decompressive craniectomy and Duroplasty 03/22/18 Left frontal bur hole with placement of an intracranial pressure monitor Assessment and Plan - Assessment (1) Intracranial hemorrhage following injury Code(s): S06.309A - Unspecified focal traumatic brain injury with loss of consciousness of unspecified duration, initial encounter Status: Acute (2) Traumatic brain injury Code(s): S06.9X9A - Unspecified intracranial injury with loss of consciousness of unspecified duration, initial encounter Status: Acute (3) Fall Code(s): W19.XXXA - Unspecified fall, initial encounter Status: Chronic (4) Cocaine abuse Code(s): F14.10 - Cocaine abuse, uncomplicated Status: Chronic (5) ETOH abuse Code(s): F10.10 - Alcohol abuse, uncomplicated Status: Chronic (6) Dysphagia Code(s): R13.10 - Dysphagia, unspecified Status: Acute - Plan 62-year-old male admitted secondary to intracranial hemorrhage Right frontal IPH 53.3 cm. SAH bilat frontal lobes, right parietal, temporal. Right frontotemporal SDH status post emergency craniectomy for decompression for worsening midline shift right to left 2.1 cm s/p Fall, ?syncope Daily alcohol use; Cocaine abuse - s/p Right frontotemporal parietal decompressive craniectomy and Duroplasty by Dr. Chacko, plan for bone flap after next week. -repeat head CT 04/04 with improvement - tube feed placement 03/30/18, Continue on Keppra - Seizure precautions Tachycardic, HTN - patient has no cardiac complaints, Norvasc on hold, hydralazine stopped. Acute respiratory failure secondary to failure to protect airway-resolved extubated MRSA pneumonia Tobacco abuse Elevated carboxyhemoglobin level consistent with history of smoking Extubated 03/25/2018 Continue as needed duo nebs continue to monitor respiratory status Leukopenia, resolved WBC 3.6, repeat white count 6.4 monitor CBC as indicated Positive sputum culture MRSA Completed treatment with Vancomycin and Rocephin Hyponatremia, resolved Continue on salt tablets monitor Na level - 136 04/10 DVT prophylaxis SCDs No chemoprophylaxis anticoagulation due to recent intracranial bleed Palliative care following, appreciate assistance. Recommended psych consult to assess capacity. Psychiatry consulted, appreciate assistance. ST re-evaluated and patient given puree diet with honey thickened liquids. Consult legal activity adjudicator for calorie count, ends today. Code Status: Full Discharge Planning: Difficult placement. No payor source. CM assisting with ongoing discharge plan. Discharged to [place] after bone flap placed. (2) Traumatic brain injury Qualifiers: Encounter type: subsequent encounter
[2018-04-14] MEDS: Carboxymethylcellulose 0.5% Opth Drops 15 ML Bottle EACH EYE SCH ×4 (06:47→22:11)
[2018-04-14] MEDS: Oral Hygiene Kit OROPHARYNG SCH ×3 (06:47→22:12)
[2018-04-14] MEDS: Sodium Chloride 1 GM Tablet PO SCH ×3 (06:47→22:10)
[2018-04-14] MEDS: Sennosides Liq 8.8 MG/5 ML UDC NG/OG SCH ×2 (08:57→22:08)
[2018-04-14] MEDS: Folic Acid 1 MG Tablet PO SCH (08:57)
[2018-04-14] MEDS: Chlorhexidine 0.12% Oral Kit 15 ML UDC OROPHARYNG SCH (08:58)
--- NOTE | 2018-04-14 14:14 | P.PNIM ---
Subjective Interval history: ate 75% of his meals, no complaints, wants a wheelchair Physical Exam Vital signs: Vital Signs 04/13/18 16:00 04/13/18 20:00 04/14/18 00:00 Temperature 97.9 F 97.6 F 98.1 F Pulse Rate 85 94 H 82 Respiratory Rate 23 16 18 Blood Pressure 119/80 131/88 132/83 Pulse Oximetry 99 97 100 04/14/18 08:00 Temperature 98.2 F Pulse Rate 84 Respiratory Rate 20 Blood Pressure 115/78 Pulse Oximetry 98 Intake & Output 04/13/18 04/14/18 04/14/18 18:59 06:59 18:59 Intake Total 100 / 100 Output Total 1 / 1 2 / 2 2 / 2 Balance -1 / -1 -2 / -2 98 / 98 Weight 59.6 kg 59.6 kg Intake: Water Bolus Amount 100 / 100 Output: Urine 2 / 2 Stool 2 / 2 Urine/Stool Mix / Other: # Voids 3 3 Date of Last Bowel Movement 04/12/18 04/14/18 # Bowel Movements 1 Narrative: GENERAL:NOt in distress HEAD: s/p right sided craniectomy, incision healing well. No bone flap. CARDIOVASCULAR:RRR, without murmurs, gallops, or rubs. RESPIRATORY: No accessory muscle use. Breath sounds equal bilaterally. Poor effort, clear to auscultation anteriorly. GASTROINTESTINAL: Abdomen soft, non-tender, nondistended. PEG site C/D/I. GENITOURINARY: Condom catheter in place with clear urine in bag. MUSCULOSKELETAL: No cyanosis or edema. NEURO: Awake, alert, oriented to place and self. Moves all extremities spontaneously. Minimal verbalization. Eating lunch. - Urinary Catheter Management Indwelling Temp Sensing Catheter Cath placed during this visit: yes, but has since been removed by the nurse Reason for continuing: Not indwelling catheter Insertion date: 03/12/18 Insertion time: 05:30 Removal date: 03/25/18 Removal time: 18:00 Indwelling Urethral Catheter Cath placed during this visit: yes, but has since been removed by the nurse Reason for continuing: Decision to DC catheter Insertion date: 03/22/18 Insertion time: 17:30 Removal date: 03/25/18 Removal time: 18:00 Condom Cath placed during this visit: yes, but has since been removed by the nurse Reason for continuing: Not indwelling catheter Removal date: 03/25/18 Removal time: 18:00 Results - Labs CBC & Chem 7: 04/10/18 12:43 04/10/18 08:24 - Procedures PEG right decompressive craniectomy 03/22/18 with placement of ICP monitor by Dr. Chacko, [facility] 03/23/18 03/22/18 Right frontotemporal parietal decompressive craniectomy and Duroplasty 03/22/18 Left frontal bur hole with placement of an intracranial pressure monitor Assessment and Plan - Assessment (1) Intracranial hemorrhage following injury Code(s): S06.309A - Unspecified focal traumatic brain injury with loss of consciousness of unspecified duration, initial encounter Status: Acute (2) Traumatic brain injury Code(s): S06.9X9A - Unspecified intracranial injury with loss of consciousness of unspecified duration, initial encounter Status: Acute (3) Fall Code(s): W19.XXXA - Unspecified fall, initial encounter Status: Chronic (4) Cocaine abuse Code(s): F14.10 - Cocaine abuse, uncomplicated Status: Chronic (5) ETOH abuse Code(s): F10.10 - Alcohol abuse, uncomplicated Status: Chronic (6) Dysphagia Code(s): R13.10 - Dysphagia, unspecified Status: Acute - Plan 62-year-old male admitted secondary to intracranial hemorrhage Right frontal IPH 53.3 cm. SAH bilat frontal lobes, right parietal, temporal. Right frontotemporal SDH status post emergency craniectomy for decompression for worsening midline shift right to left 2.1 cm s/p Fall, ?syncope Daily alcohol use; Cocaine abuse - s/p Right frontotemporal parietal decompressive craniectomy and Duroplasty by Dr. Chacko, plan for bone flap after next week (Apr 23?). -repeat head CT 04/04 with improvement - tube feed placement 03/30/18, Continue on Keppra, - Seizure precautions Tachycardic, HTN - patient has no cardiac complaints, BP stable, Stop all anti-hypertensives Acute respiratory failure secondary to failure to protect airway-resolved extubated MRSA pneumonia Tobacco abuse Elevated carboxyhemoglobin level consistent with history of smoking Extubated 03/25/2018 Continue as needed duo nebs continue to monitor respiratory status Leukopenia, resolved WBC 3.6, repeat white count 6.4 monitor CBC as indicated Positive sputum culture MRSA Completed treatment with Vancomycin and Rocephin Hyponatremia, resolved Continue on salt tablets monitor Na level - 136 04/10 DVT prophylaxis SCDs. No chemoprophylaxis anticoagulation due to recent intracranial bleed Palliative care following, appreciate assistance. Nutrition: - ST re-evaluated and patient given puree diet with honey thickened liquids. Calorie count done, still high nutrition risk. Recommends d/c TFs, repeat Calorie Count 04/15 through 04/17 w/Nutrition Recs 04/18, to determine whether PEG tube continues. Cont Ensure Code Status: Full Discharge Planning: Difficult placement. No payor source. CM assisting with ongoing discharge plan. Discharged to [place] after bone flap placed. (2) Traumatic brain injury Qualifiers: Encounter type: subsequent encounter
[2018-04-15] MEDS: Oral Hygiene Kit OROPHARYNG SCH ×3 (01:34→22:15)
[2018-04-15] MEDS: Carboxymethylcellulose 0.5% Opth Drops 15 ML Bottle EACH EYE SCH ×3 (05:37→22:16)
[2018-04-15] MEDS: Folic Acid 1 MG Tablet PO SCH (08:42)
[2018-04-15] MEDS: Sennosides Liq 8.8 MG/5 ML UDC NG/OG SCH ×2 (08:42→22:22)
[2018-04-15] MEDS: Sodium Chloride 1 GM Tablet PO SCH ×2 (10:27→22:22)
--- NOTE | 2018-04-15 13:43 | P.PNIM ---
Subjective Interval history: Follow-up for nutrition Patient is now eating a lot, about 75%, no complaints. Not cooperative today. Physical Exam Vital signs: Vital Signs 04/14/18 16:00 04/14/18 20:00 04/15/18 00:00 Temperature 97.7 F 97.6 F 98.2 F Pulse Rate 95 H 83 86 Respiratory Rate 20 18 20 Blood Pressure 114/62 125/78 127/77 Pulse Oximetry 98 97 99 04/15/18 04:00 04/15/18 08:00 04/15/18 12:00 Temperature 97.7 F 98.1 F 98.2 F Pulse Rate 86 84 88 Respiratory Rate 17 14 18 Blood Pressure 126/77 117/74 138/81 Pulse Oximetry 97 96 96 Intake & Output 04/14/18 04/15/18 04/15/18 18:59 06:59 18:59 Intake Total 100 / 100 1192 / 1192 Output Total 2 / 2 Balance 98 / 98 1192 / 1192 Weight 53.6 kg Intake: Oral 442 / 442 Tube Feeding 550 / 550 Tube Irrigant 100 / 100 Water Bolus Amount 100 / 100 100 / 100 Output: Urine 2 / 2 Other: # Incontinent Voids 1 Date of Last Bowel Movement 04/14/18 # Incontinent Bowel Movements 1 Narrative: GENERAL:NOt in distress HEAD: s/p right sided craniectomy. No bone flap. CARDIOVASCULAR:RRR, without murmurs, gallops, or rubs. RESPIRATORY: No accessory muscle use. Breath sounds equal bilaterally. Poor effort, clear to auscultation anteriorly. GASTROINTESTINAL: Abdomen soft, non-tender, nondistended. PEG site C/D/I. MUSCULOSKELETAL: No cyanosis or edema. NEURO: Awake, alert, not cooperative today. Moves extremities. - Urinary Catheter Management Indwelling Temp Sensing Catheter Cath placed during this visit: yes, but has since been removed by the nurse Reason for continuing: Not indwelling catheter Insertion date: 03/12/18 Insertion time: 05:30 Removal date: 03/25/18 Removal time: 18:00 Indwelling Urethral Catheter Cath placed during this visit: yes, but has since been removed by the nurse Reason for continuing: Decision to DC catheter Insertion date: 03/22/18 Insertion time: 17:30 Removal date: 03/25/18 Removal time: 18:00 Condom Cath placed during this visit: yes, but has since been removed by the nurse Reason for continuing: Not indwelling catheter Removal date: 03/25/18 Removal time: 18:00 Results - Labs CBC & Chem 7: 04/10/18 12:43 04/10/18 08:24 Laboratory Results - last 24 hr 04/14/18 21:55 POC Glucose 128 H - Procedures PEG right decompressive craniectomy 03/22/18 with placement of ICP monitor by Dr. Chacko, [facility] 03/23/18 03/22/18 Right frontotemporal parietal decompressive craniectomy and Duroplasty 03/22/18 Left frontal bur hole with placement of an intracranial pressure monitor Assessment and Plan - Assessment (1) Intracranial hemorrhage following injury Code(s): S06.309A - Unspecified focal traumatic brain injury with loss of consciousness of unspecified duration, initial encounter Status: Acute (2) Traumatic brain injury Code(s): S06.9X9A - Unspecified intracranial injury with loss of consciousness of unspecified duration, initial encounter Status: Acute (3) Fall Code(s): W19.XXXA - Unspecified fall, initial encounter Status: Chronic (4) Cocaine abuse Code(s): F14.10 - Cocaine abuse, uncomplicated Status: Chronic (5) ETOH abuse Code(s): F10.10 - Alcohol abuse, uncomplicated Status: Chronic (6) Dysphagia Code(s): R13.10 - Dysphagia, unspecified Status: Acute - Plan 62-year-old male admitted secondary to intracranial hemorrhage Right frontal IPH 53.3 cm. SAH bilat frontal lobes, right parietal, temporal. Right frontotemporal SDH status post emergency craniectomy for decompression for worsening midline shift right to left 2.1 cm s/p Fall, ?syncope Daily alcohol use; Cocaine abuse - s/p Right frontotemporal parietal decompressive craniectomy and Duroplasty by Dr. Chacko, plan for bone flap after next week (Apr 23?). -repeat head CT 04/04 with improvement - tube feed placement 03/30/18, Continue on Keppra, Seizure precautions Tachycardic, HTN - patient has no cardiac complaints, BP stable, Stopped all anti-hypertensives Acute respiratory failure secondary to failure to protect airway-resolved extubated MRSA pneumonia Tobacco abuse Elevated carboxyhemoglobin level consistent with history of smoking - Extubated 03/25/2018, Continue as needed duo nebs, continue to monitor respiratory status Leukopenia, resolved WBC 3.6, repeat white count 6.4 monitor CBC as indicated MRSA Pneumonia Completed treatment with Vancomycin and Rocephin Hyponatremia, resolved Continue on salt tablets monitor Na level - 136 04/10 DVT prophylaxis SCDs. No chemoprophylaxis anticoagulation due to recent intracranial bleed Palliative care following, appreciate assistance. Nutrition: - ST re-evaluated and patient given puree diet with honey thickened liquids. Calorie count done, still high nutrition risk. Tube feeding stopped, repeat Calorie Count 04/15 through 04/17 w/Nutrition Recs 04/18, to determine whether PEG tube continues. Cont Ensure Code Status: Full Discharge Planning: Difficult placement. No payor source. CM assisting with ongoing discharge plan. Discharged to [place] after bone flap placed. (2) Traumatic brain injury Qualifiers: Encounter type: subsequent encounter
[2018-04-16] MEDS: Oral Hygiene Kit OROPHARYNG SCH ×4 (00:13→16:56)
[2018-04-16] MEDS: Carboxymethylcellulose 0.5% Opth Drops 15 ML Bottle EACH EYE SCH ×3 (06:05→23:18)
[2018-04-16] MEDS: Folic Acid 1 MG Tablet PO SCH (09:13)
[2018-04-16] MEDS: Sennosides Liq 8.8 MG/5 ML UDC NG/OG SCH ×2 (09:15→23:08)
[2018-04-16] MEDS: Sodium Chloride 1 GM Tablet PO SCH ×2 (11:28→23:18)
--- NOTE | 2018-04-16 13:19 | P.PNIM ---
Subjective Interval history: Follow-up formal nutrition Still eating about 80-90% of diet. No overnight events. Afebrile. Physical Exam Vital signs: Vital Signs 04/15/18 16:00 04/15/18 19:56 04/16/18 00:00 Temperature 97.5 F L 97.7 F 97.7 F Pulse Rate 87 80 78 Respiratory Rate 18 18 18 Blood Pressure 107/68 110/71 122/77 Pulse Oximetry 94 L 97 99 04/16/18 04:00 04/16/18 08:00 04/16/18 12:00 Temperature 98 F 97.7 F 97.9 F Pulse Rate 76 79 75 Respiratory Rate 18 14 16 Blood Pressure 118/78 125/82 130/83 Pulse Oximetry 98 98 99 Intake & Output 04/15/18 04/16/18 04/16/18 18:59 06:59 18:59 Intake Total 750 / 750 Balance 750 / 750 Weight 53.6 kg Intake: Tube Feeding 550 / 550 Water Bolus Amount 200 / 200 Other: # Incontinent Voids 1 Date of Last Bowel Movement 04/15/18 04/15/18 Narrative: GENERAL:NOt in distress HEAD: s/p right sided craniectomy. No bone flap on the right parietal area. CARDIOVASCULAR:RRR, without murmurs, gallops, or rubs. RESPIRATORY: No accessory muscle use. Breath sounds equal bilaterally. Poor effort, clear to auscultation anteriorly. GASTROINTESTINAL: Abdomen soft, non-tender, nondistended. PEG site C/D/I. MUSCULOSKELETAL: No cyanosis or edema. NEURO: Awake, alert, not cooperative today. Moves extremities. - Urinary Catheter Management Indwelling Temp Sensing Catheter Cath placed during this visit: yes, but has since been removed by the nurse Reason for continuing: Not indwelling catheter Insertion date: 03/12/18 Insertion time: 05:30 Removal date: 03/25/18 Removal time: 18:00 Indwelling Urethral Catheter Cath placed during this visit: yes, but has since been removed by the nurse Reason for continuing: Decision to DC catheter Insertion date: 03/22/18 Insertion time: 17:30 Removal date: 03/25/18 Removal time: 18:00 Condom Cath placed during this visit: yes, but has since been removed by the nurse Reason for continuing: Not indwelling catheter Removal date: 03/25/18 Removal time: 18:00 Results - Labs CBC & Chem 7: 04/10/18 12:43 04/10/18 08:24 - Procedures PEG right decompressive craniectomy 03/22/18 [facility] 03/22/18 Right frontotemporal parietal decompressive craniectomy and Duroplasty 03/22/18 Left frontal bur hole with placement of an intracranial pressure monitor Assessment and Plan - Assessment (1) Intracranial hemorrhage following injury Code(s): S06.309A - Unspecified focal traumatic brain injury with loss of consciousness of unspecified duration, initial encounter Status: Acute (2) Traumatic brain injury Code(s): S06.9X9A - Unspecified intracranial injury with loss of consciousness of unspecified duration, initial encounter Status: Acute (3) Fall Code(s): W19.XXXA - Unspecified fall, initial encounter Status: Chronic (4) Cocaine abuse Code(s): F14.10 - Cocaine abuse, uncomplicated Status: Chronic (5) ETOH abuse Code(s): F10.10 - Alcohol abuse, uncomplicated Status: Chronic (6) Dysphagia Code(s): R13.10 - Dysphagia, unspecified Status: Acute - Plan 62-year-old male admitted secondary to intracranial hemorrhage Right frontal IPH 53.3 cm. SAH bilat frontal lobes, right parietal, temporal. Right frontotemporal SDH s/p Fall, ?syncope Daily alcohol use; Cocaine abuse - s/p Right frontotemporal parietal decompressive craniectomy and Duroplasty by Dr. Chacko, plan for bone flap after next week (Apr 23?). -repeat head CT 04/04 with improvement - tube feed placement 03/30/18, Continue on Keppra, Seizure precautions Tachycardic, HTN, resolved - patient has no cardiac complaints, BP stable, Stopped all anti-hypertensives Acute respiratory failure secondary to failure to protect airway-resolved extubated MRSA pneumonia Tobacco abuse Elevated carboxyhemoglobin level consistent with history of smoking - Extubated 03/25/2018, Continue as needed duo nebs, continue to monitor respiratory status, sp ABx MRSA Pneumonia Completed treatment with Vancomycin and Rocephin Hyponatremia, resolved -Continue on salt tablets, monitor Na level, 136 8/5, labs pending. DVT prophylaxis SCDs. No chemoprophylaxis anticoagulation due to recent intracranial bleed Palliative care following, appreciate assistance. Nutrition: - ST re-evaluated and patient given puree diet with honey thickened liquids. Calorie count done, still high nutrition risk. Tube feeding stopped, repeat Calorie Count 04/15 through 04/17 w/Nutrition Recs 04/18, to determine whether PEG tube continues. Cont Ensure Code Status: Full Discharge Planning: Difficult placement. No payor source. CM assisting with ongoing discharge plan. Discharged to [place] after bone flap placed as nathalie case (2) Traumatic brain injury Qualifiers: Encounter type: subsequent encounter
[2018-04-16 19:26] LABS: Anion Gap 6 meq/L (5-15); Blood Urea Nitrogen 12 mg/dL (7-18); Calcium 8.7 mg/dL (8.5-10.1); Carbon Dioxide 30.4 meq/L (21.0-32.0); Chloride 102 meq/L (98-107); Glomerular Filtration Rate Greater Than 89 mL/min (>89); Glucose,Random 90 mg/dL (74-106); Potassium 4.3 meq/L (3.5-5.1); Sodium 138 meq/L (136-145)
[2018-04-17] MEDS: Oral Hygiene Kit OROPHARYNG SCH ×4 (00:29→16:27)
[2018-04-17] MEDS: Carboxymethylcellulose 0.5% Opth Drops 15 ML Bottle EACH EYE SCH ×3 (07:05→22:31)
[2018-04-17] MEDS: Sennosides Liq 8.8 MG/5 ML UDC NG/OG SCH ×2 (09:36→22:27)
[2018-04-17] MEDS: Folic Acid 1 MG Tablet PO SCH (09:36)
[2018-04-17] MEDS: Sodium Chloride 1 GM Tablet PO SCH (11:32)
--- NOTE | 2018-04-17 12:26 | P.PNIM ---
Subjective Interval history: Pt seen and examined for f/u of seizure, encephalopathy, and polysubstance abuse. Patient's face is covered with blanket and refuses to take it off or let me examine him. We did not have any meaningful conversation today but patient shakes his head 'no' when asked about headache, CP, or SOB. Physical Exam Vital signs: Vital Signs 04/16/18 16:00 04/16/18 20:00 04/17/18 00:00 Temperature 97.3 F L 97.7 F 97.6 F Pulse Rate 78 77 75 Respiratory Rate 16 16 16 Blood Pressure 125/83 127/81 121/85 Pulse Oximetry 98 98 99 04/17/18 04:00 04/17/18 08:00 04/17/18 12:00 Temperature 97.7 F 97.4 F L 97.7 F Pulse Rate 76 93 H 78 Respiratory Rate 16 16 16 Blood Pressure 128/80 139/89 126/83 Pulse Oximetry 98 98 98 Intake & Output 04/16/18 04/17/18 04/17/18 18:59 06:59 18:59 Intake Total Balance Weight 53.5 kg Intake: Water Bolus Amount Other: # Voids 1 # Incontinent Voids 3 Date of Last Bowel Movement 04/15/18 04/17/18 # Bowel Movements 1 2 Narrative: Patient refused physical exam - Urinary Catheter Management Indwelling Temp Sensing Catheter Cath placed during this visit: yes, but has since been removed by the nurse Reason for continuing: Not indwelling catheter Insertion date: 03/12/18 Insertion time: 05:30 Removal date: 03/25/18 Removal time: 18:00 Indwelling Urethral Catheter Cath placed during this visit: yes, but has since been removed by the nurse Reason for continuing: Decision to DC catheter Insertion date: 03/22/18 Insertion time: 17:30 Removal date: 03/25/18 Removal time: 18:00 Condom Cath placed during this visit: yes, but has since been removed by the nurse Reason for continuing: Not indwelling catheter Removal date: 03/25/18 Removal time: 18:00 Results - Labs CBC & Chem 7: 04/10/18 12:43 04/16/18 18:25 Laboratory Results - last 24 hr 04/16/18 18:25 Sodium 138 Potassium 4.3 Chloride 102 Carbon Dioxide 30.4 Anion Gap 6 BUN 12 Creatinine 0.63 Estimated GFR Greater than 89 Random Glucose 90 Calcium 8.7 - Procedures PEG 7 right decompressive craniectomy 03/22/18 with placement of ICP monitor by Dr. Chacko, nm'ed 03/23/18 03/22/18 Right frontotemporal parietal decompressive craniectomy and Duroplasty 03/22/18 Left frontal bur hole with placement of an intracranial pressure monitor Assessment and Plan - Assessment (1) Intracranial hemorrhage following injury Code(s): S06.309A - Unspecified focal traumatic brain injury with loss of consciousness of unspecified duration, initial encounter Status: Acute (2) Traumatic brain injury Code(s): S06.9X9A - Unspecified intracranial injury with loss of consciousness of unspecified duration, initial encounter Status: Acute (3) Fall Code(s): W19.XXXA - Unspecified fall, initial encounter Status: Chronic (4) Cocaine abuse Code(s): F14.10 - Cocaine abuse, uncomplicated Status: Chronic (5) ETOH abuse Code(s): F10.10 - Alcohol abuse, uncomplicated Status: Chronic (6) Dysphagia Code(s): R13.10 - Dysphagia, unspecified Status: Acute - Plan 62 year old male admitted 03/03 with ICH. 1. Intracranial hemorrhage - S/P fall, syncope? - Right frontal IPH 53.3 cm, SAH bilat frontal lobes, right parietal, temporal. Right frontotemporal SDH - Daily EtOH use, cocaine abuse - s/p Right frontotemporal parietal decompressive craniectomy and Duroplasty by Dr. Chacko - Repeat head CT 04/04 with improvement - Continue Keppra - Seizure precautions 2. Acute respiratory failure secondary to failure to protect airway - S/P extubation 03/25 - Resolved - Bronchodilators PRN - Supplemental O2 PRN 3. MRSA PNA - S/P treatment with Vancomycin and Rocephin 4. 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 No payor source. CM assisting with ongoing discharge plan (2) Traumatic brain injury Qualifiers: Encounter type: subsequent encounter
[2018-04-18] MEDS: Oral Hygiene Kit OROPHARYNG SCH ×4 (01:57→16:47)
[2018-04-18] MEDS: Carboxymethylcellulose 0.5% Opth Drops 15 ML Bottle EACH EYE SCH ×3 (06:05→22:36)
[2018-04-18 09:31] LABS: Hematocrit 37.7 % (39.0-51.0); Hemoglobin 12.4 gm/dL (13.0-17.0); Mean Corpuscular Hemoglobin 30.9 pg (27.0-34.0); Mean Corpuscular Volume 93.5 fL (80.0-100.0); Mean Platelet Volume 7.3 fL (7.0-11.0); Platelet Count 286 th/mm3 (150-450); Red Blood Count 4.03 mil/mm3 (4.50-5.90); Red Cell Distribution Width 13.7 % (11.6-17.2); White Blood Count 3.4 th/mm3 (4.0-11.0)
[2018-04-18] MEDS: Sennosides Liq 8.8 MG/5 ML UDC NG/OG SCH ×2 (09:33→22:36)
[2018-04-18] MEDS: Folic Acid 1 MG Tablet PO SCH (09:34)
[2018-04-18 09:54] LABS: Anion Gap 8 meq/L (5-15); Blood Urea Nitrogen 13 mg/dL (7-18); Calcium 9.3 mg/dL (8.5-10.1); Carbon Dioxide 26.9 meq/L (21.0-32.0); Chloride 103 meq/L (98-107); Glomerular Filtration Rate Greater Than 89 mL/min (>89); Glucose,Random 91 mg/dL (74-106); Potassium 4.2 meq/L (3.5-5.1); Sodium 138 meq/L (136-145)
--- NOTE | 2018-04-18 10:10 | P.DIET ---
Nutritional Evaluation Type of nutrition evaluation: follow-up Nutrition consult regarding: Tube Feeding Nutrition screening: [facility] (04/09/18 [facility] Calorie Counting) Subjective Subjective Comments: He is drinking the Ensure Enlive (25-100%) and likes the Ensure Pudding. Objective - Diagnosis ICH, SAH, Syncope - Objective % IBW: 87 (IBW = 166#) Body Weight Used for Calculations: Actual (65.4 kg) Energy Needs - Lower Range (kCal/kg): 28 Energy Needs - Upper Range (kCal/kg): 33 Lower Limit kCal/kg (kCals): 1,831 Upper Limit kCal/kg (kCals): 2,158 Lower Limit Protein Factor (Grams per Kg): 1.2 Upper Limit Protein Factor (Grams per Kg): 1.5 Lower Protein Needs (Protein): 79 Upper Protein Needs (Protein): 98 Fluid Factor (ml/kg): 28 Estimated Fluid Needs (ml): 1,831 Dietitian Reviewed in Medical Record: Current diet, Curent medications, Intake & Output, Labs, Medical history, Tube feeding, Wound/DTI Diet Order: Pureed, Honey Thickened Liquids Speech Therapy Recommendations: Yes (Pureed w/Liquids thickened to honey consistency) Objective Comments: PMH: COPD, Asthma, tobacco abuse, daily ETOH use 03/22 R front temporal parietal decompressive craniectomy Integumentary: coccyx pressure injury PEG placement 03/30/18 Meds Include: Keppra, Norvasc, Catapres, Lactulose, Theragran, Thiamine, Folic Acid Feeding - Current PO Supplement Current Supplement: Ensure Enlive Current Frequency of Supplement: Three times a day Current kCals Provided by Supplement: 350 Current Protein Provided by Supplement: 20 Supplement Comments: plus Ensure Pudding(= 170 kcal and 4g protein per serving) Assessment Assessment: Pt was extubated on 03/25 and PEG tube placed 03/30. Current diet is pureed with honey thickened liquids and Ensure Enlive and Ensure Pudding added. Six meals were recorded for calorie counts. Pt's average po intake per day is estimated at 1157 kcals and 55 gms of protein. This meets ~63% of the low end of his kcaloric needs and 70% of his protein needs. CBW is 53.5 kg which indicates ~26# weight loss since admission. Recommend night time TFing to supplement po intake to prevent further nutritional compromise. Recommend Jevity 1.5 @ 75 mls/hr from 7pm -7am to provide 1350 kcals and [address] will continue to follow closely. Recommendations: 1. Diet per ST 2. Continue TF: Jevity 1.5 @ 75 mls/hr x 12 hours at night 3.Continue Ensure Enlive TID 4.Continue Ensure Pudding TID Dietitian to Monitor: Lab values, Supplement acceptance, Intake & Output, Diet tolerance, Weight change, PO Intake, Wound/skin status, Medical course
--- NOTE | 2018-04-18 15:56 | P.PNIM ---
Subjective Interval history: Pt again not cooperative today. Refuses to take blanket off his head. Refuses exam. Physical Exam Vital signs: Vital Signs 04/17/18 16:00 04/17/18 20:00 04/18/18 00:00 Temperature 97.3 F L 97.6 F 98.7 F Pulse Rate 80 74 78 Respiratory Rate 16 18 17 Blood Pressure 125/80 127/80 137/89 Pulse Oximetry 93 L 98 97 04/18/18 04:00 04/18/18 12:00 Temperature 98.6 F 97.7 F Pulse Rate 73 80 Respiratory Rate 16 14 Blood Pressure 137/83 111/76 Pulse Oximetry 97 98 Intake & Output 04/17/18 04/18/18 04/18/18 18:59 06:59 18:59 Intake Total 640 / 640 Balance 640 / 640 Weight 53.5 kg Intake: Oral 640 / 640 Other: # Voids 3 Date of Last Bowel Movement 04/17/18 04/17/18 # Bowel Movements 2 Narrative: Refuses exam - Urinary Catheter Management Indwelling Temp Sensing Catheter Cath placed during this visit: yes, but has since been removed by the nurse Reason for continuing: Not indwelling catheter Insertion date: 03/12/18 Insertion time: 05:30 Removal date: 03/25/18 Removal time: 18:00 Indwelling Urethral Catheter Cath placed during this visit: yes, but has since been removed by the nurse Reason for continuing: Decision to DC catheter Insertion date: 03/22/18 Insertion time: 17:30 Removal date: 03/25/18 Removal time: 18:00 Condom Cath placed during this visit: yes, but has since been removed by the nurse Reason for continuing: Not indwelling catheter Removal date: 03/25/18 Removal time: 18:00 Results - Labs CBC & Chem 7: 04/18/18 08:25 04/18/18 08:25 Laboratory Results - last 24 hr 04/18/18 04/18/18 08:25 08:25 WBC 3.4 L RBC 4.03 L Hgb 12.4 L Hct 37.7 L MCV 93.5 MCH 30.9 MCHC 33.0 RDW 13.7 Plt Count 286 MPV 7.3 Sodium 138 Potassium 4.2 Chloride 103 Carbon Dioxide 26.9 Anion Gap 8 BUN 13 Creatinine 0.57 L Estimated GFR Greater than 89 Random Glucose 91 Calcium 9.3 - Procedures PEG 7 right decompressive craniectomy 03/22/18 with placement of ICP monitor by Dr. Chacko, ky'ed 03/23/18 03/22/18 Right frontotemporal parietal decompressive craniectomy and Duroplasty 03/22/18 Left frontal bur hole with placement of an intracranial pressure monitor Assessment and Plan - Assessment (1) Intracranial hemorrhage following injury Code(s): S06.309A - Unspecified focal traumatic brain injury with loss of consciousness of unspecified duration, initial encounter Status: Acute (2) Traumatic brain injury Code(s): S06.9X9A - Unspecified intracranial injury with loss of consciousness of unspecified duration, initial encounter Status: Acute (3) Fall Code(s): W19.XXXA - Unspecified fall, initial encounter Status: Chronic (4) Cocaine abuse Code(s): F14.10 - Cocaine abuse, uncomplicated Status: Chronic (5) ETOH abuse Code(s): F10.10 - Alcohol abuse, uncomplicated Status: Chronic (6) Dysphagia Code(s): R13.10 - Dysphagia, unspecified Status: Acute - Plan 62 year old male admitted 03/03 with ICH. 1. Intracranial hemorrhage - S/P fall, syncope? - Right frontal IPH 53.3 cm, SAH bilat frontal lobes, right parietal, temporal. Right frontotemporal SDH - Daily EtOH use, cocaine abuse - s/p Right frontotemporal parietal decompressive craniectomy and Duroplasty by Dr. Chacko - Repeat head CT 04/04 with improvement - Continue Keppra - Seizure precautions - Refusing to participate in meaningful PT or care, consult neuropsych 2. Acute respiratory failure secondary to failure to protect airway - S/P extubation 03/25 - Resolved - Bronchodilators PRN - Supplemental O2 PRN 3. MRSA PNA - S/P treatment with Vancomycin and Rocephin 4. PEG tube - ST recommending puree diet with honey thickened liquids - TF stopped - Calorie counting in process with f/u nutrition reccs today - Ensure with meals DVT prophylaxis: chemical anticoagulation C/I given ICH; SCDs Palliative care following, appreciate assistance Discharge Planning: Difficult placement. Patient lacking motivation. No payor source. CM assisting with ongoing discharge plan (2) Traumatic brain injury Qualifiers: Encounter type: subsequent encounter
[2018-04-19] MEDS: Carboxymethylcellulose 0.5% Opth Drops 15 ML Bottle EACH EYE SCH ×3 (09:23→21:37)
[2018-04-19] MEDS: Folic Acid 1 MG Tablet PO SCH (09:23)
[2018-04-19] MEDS: Oral Hygiene Kit OROPHARYNG SCH ×3 (09:23→17:30)
[2018-04-19] MEDS: Sennosides Liq 8.8 MG/5 ML UDC NG/OG SCH ×2 (09:25→20:00)
--- NOTE | 2018-04-19 11:53 | P.NPEVAL ---
Patient History - Record/History Review Reason for Referral: The patient is a 62 year old right handed male with a history of COPD/asthma and polysubstance dependence including EtOH, Cocaine, TOB and THC presented to [facility] on 03/03/2018 following a fall. Head CT showed right frontal intraparenchymal hemorrhage with SAH, bilateral frontal, right parietal and right temporal contusions. He is s/p DC on 03/22/2018, and he is day 47 at the time of this consultation. He is referred for baseline neurobehavioral status examination per trauma protocol to assess cognitive, behavioral and emotional aspects of the injury and to provide treatment recommendations. [facility] - History History Provided By: Patient, Medical Record - Medical / Surgical Hx Neg / Unobtainable Medical Problems Denied: Unable to Obtain (not cooperating) - Medical History Medical History: Medical History (Last Reviewed 04/19/18 @ 08:19 by Jocelyn Esquivel) Asthma COPD (chronic obstructive pulmonary disease) Tobacco abuse - Surgical History Surgical History: Surgical History (Last Reviewed 04/19/18 @ 08:19 by Jocelyn Esquivel) No history of previous surgery - Tobacco History Smoking Status: Light tobacco smoker Tobacco Type: Cigarettes Cigarettes Per Day: 0.5 - Alcohol History How Often Do You Have a Drink Containing Alcohol: 4 or more times a week - Substance Use History Substance History: Active Abuse Medications Active Medications Acetaminophen (Tylenol Liq) 650 mg NG/OG Q6H PRN PRN Reason: HEADACHE Last Admin: 04/17/18 22:26 Dose: 650 mg Al Hydrox/Mg Hydrox/Simethicone (Mag-Al Plus Susp Liq) 30 ml PO Q6H PRN PRN Reason: DYSPEPSIA Albuterol (Albuterol Neb (Prn)) 2.5 mg NEB Q2HR NEB PRN PRN Reason: WHEEZING Last Admin: 03/17/18 03:27 Dose: 2.5 mg Artificial Tears (Refresh Tears 0.5% Opth Drops) 1 drop EACH EYE Q8HR PEDRO [facility]IS Last Admin: 04/19/18 09:23 Dose: Not Given Folic Acid (Folic Acid) 1 mg PO DAILY PEDRO LUIS Last Admin: 04/19/18 09:23 Dose: 1 mg Lactulose (Lactulose Liq) 30 ml PO DAILY PEDRO LUIS Last Admin: 04/09/18 08:03 Dose: Not Given Lansoprazole (Prevacid Solutab) 30 mg NG/OG DAILY [facility] Last Admin: 04/19/18 09:23 Dose: 30 mg Levetiracetam (Keppra Liq) 500 mg NG/OG BID [facility] Last Admin: 04/19/18 09:25 Dose: 500 mg Menthol ([place]) 1 lozenge BUCCAL UNSCH PRN PRN Reason: SORE THROAT Last Admin: 04/17/18 22:30 Dose: 1 lozenge Multivitamins (Theragran) 1 tab PO DAILY [facility] Last Admin: 04/19/18 09:23 Dose: 1 tab Ondansetron HCl (Zofran Inj) 4 mg IV.PUSH Q6H PRN PRN Reason: NAUSEA OR VOMITING Promethazine HCl (Phenergan Inj) 25 mg IM Q4H PRN PRN Reason: NAUSEA OR VOMITING Sennosides (Senna Liq) 8.8 mg NG/OG BID [facility] Last Admin: 04/19/18 09:25 Dose: 8.8 mg Sodium Chloride (Ns Flush) 2 ml IV.FLUSH UNSCH PRN PRN Reason: FLUSH AFTER USING IV ACCESS Sodium Chloride (Ns Flush) 2 ml IV.FLUSH BID [facility] Last Admin: 04/19/18 09:25 Dose: 2 ml Thiamine HCl (Vitamin B1) 100 mg PO BID [facility] Last Admin: 04/19/18 09:23 Dose: 100 mg Mental Status Assessment - Mental Status Orientation: oriented to: Self, Place, Situation, disoriented to: Time Mental Status: WFL: Language/interactions, Variable: Thought processing, Attention, Impaired: Learning/memory, Problem-solving Absent: Hallucinations, Delusions Adjustment/Coping Assessment - Adjustment/Coping Adjustment/Coping: Severe: Awareness, Insight - Observation In terms of emotional functioning, the patient demonstrated challenges. This patient demonstrated no signs of agitation, impulsivity or disinhibition, nor was there remarkable evidence of a formal thought disorder or psychosis. There was no evidence of depression or anxiety. Thought content was free from suicidal, homicidal or paranoid ideation, and thought processes were somewhat bradyphrenic and concrete. The patients mood was abulic observed as apathetic , and his affect was flat. The patient appears to possess minimal insight and awareness into their situation and within the limits of this brief evaluation, poor judgment. - Goals/Team Members LTG Status: Deferred STG Status: Deferred Team Members: Neuropsychologist Behavior - Behavior Treatment Engagement: Minimal - Observation Behaviorally, the patient demonstrated no signs of agitation, impulsivity or disinhibition. There was no remarkable evidence of a formal thought disorder or psychosis. - Goals LTG Status: Deferred STG Status: Deferred - Team Members Team Members: Neuropsychologist Feedback/Education - Barriers to Treatment Capacity to Self-Determine Diagnosis/Discharge Plan - Diagnosis (1) Major neurocognitive disorder as late effect of traumatic brain injury with behavioral disturbance Status: Acute (2) Polysubstance dependence Status: Acute Impression: This 62 year old male with s/p bifrontal TBI, DC and history of polysubstance dependence who is day 47 post admission. This patient presents with neurobehavioral sequelae consistent with frontal lobe pathology, including bradyphrenia, abulia, disconnection between thought and emotion, motor impersistence as well as demonstrating visual neglect (versus field cut). These issues are approaching chronic in nature particularly in the context of underlying neuropathology related to his polysubstance dependence. [place] Level: Level V Disinhibition Score: 15.75 Aggression Score: 14.00 Lability Score: 14.00 Agitated Behavior Total Score: 15 Maximizing Acute Care Outcome: It is recommended that the patient be monitored for emergent behavioral impulsivity as the medical condition evolves. The ABS is already started and he is not agitated/restless. This patients neuropathological challenges may limit rehabilitation potential going forward, and these challenges will require specialized therapeutic skills to maximize outcome. At this point in the recovery process, the patient does not have cognitive capacity as the patient is unable to understand a situation and its likely consequences, nor is the patient able to manipulate information rationally. Cognitive capacity will be assessed throughout the recovery process. - Discharge Planning Anticipated Problems: Ongoing areas of concern will include behavioral impulsivity, lack of insight and judgment, which may not improve with time or treatment. Presently, the patient follows commands when told to do so. Given the severity of the patient' s injuries it is my clinical opinion that this patient will be unable to return to any type of productive employment for at least one year, perhaps longer and likely never. This patient is not considered safe to discharge home without supervision. He will likely require SNF placement. Treatment Plan: This clinician will continue to follow with you throughout the course of this patients acute care treatment, and I will be available to meet with the patient s family/support system to facilitate their understanding and the ongoing care of their family member. The goals of neuropsychological intervention shall be both educational and supportive to the family/support system as is deemed clinically appropriate. Consider starting Amantadine 100 qD, unless medically contraindicated, which may facilitate his neurobehavioral recovery from abulic, disconnected and flat to more normal and interactive, watching for any exacerbations of agitation/restlessness/impulsivity which you can monitor both clinically and using the ABS scores, which are documented each shift by RNs. Thank you for the opportunity to assist in this patients care. Eliceo Narvaez, Ph.D., ABPP Board Certified in Clinical Neuropsychology [place] [employer] [place] Licensed Psychologist #[id number]
--- NOTE | 2018-04-19 13:56 | P.PNPAL ---
Reason for Visit Reason for visit: a. To assist with evaluation and management of symptoms including:pain, anxiety b. To assist medical decision maker(s) with: better understanding of current medical conditions; weighing benefits/burdens of medical treatment options; making medical treatment decisions. Subjective Subjective/Interval History: Pt seen today to follow up on comfort, goals s/p neuropsych evaluation Dr Narvaez notes pt : flat/disconnected, at risk for agitation/restlessness/impulsivity . consider starting Amantadine 100 qD, unless medically contraindicated, which may facilitate his neurobehavioral recovery from abulic, disconnected and flat to more normal and interactive. Also noted pt expected to require shelter placement for safety/impaired judgement which may not improve with treatment. s/p repeat calorie count, pt intake less than estimated caloric requirements (~ 63% of needs) , recommends cont TF supplement from 7p-7a, with oral diet during day. Supplement with ensure elive, and pudding TID. OT, PT following, note pt with limited participation, limited motivation. Pt will require rehab, snf placement at discharge, CM working on this. Pt seen in room, he is alert, flat. He denies dyspnea. Denies GI complaints. He states that he has a headache. Nursing present for part of interaction. he declines to have Tylenol for BATISTA. He is unable to rate BATISTA. He ask for sodium tabs for his BATISTA. ( he is not on sodium supplement, recent Na+ levels per lab wnl ) He is able to tell me why he is in hospital, "for brain damage" from a fall at home. he is oriented to month, year, president, location etc. He tells me he needs emergency surgery to fix his brain. Advise that he has already undergone emergency brain surgery and that he is now stable and in rehabilitation stage. Review he will need bone flap replaced at some point though this has not been scheduled yet. He says he needs to tell his son he is having emergency surgery. Objective Vital Signs: Vital Signs 04/18/18 16:00 04/18/18 20:00 04/18/18 23:16 Temperature 97.0 F L 97.7 F 98.2 F Pulse Rate 92 H 88 90 Respiratory Rate 18 18 Blood Pressure 133/89 118/80 125/83 Pulse Oximetry 96 99 99 04/19/18 03:44 04/19/18 12:00 Temperature 98.7 F 97.6 F Pulse Rate 83 97 H Respiratory Rate 18 16 Blood Pressure 123/86 112/79 Pulse Oximetry 99 94 L Intake & Output 04/18/18 04/19/18 04/19/18 18:59 06:59 18:59 Intake Total 720 / 720 480 / 480 Balance 720 / 720 480 / 480 Weight 53.7 kg Intake: Oral 720 / 720 480 / 480 Other: # Incontinent Voids 4 Date of Last Bowel Movement 04/19/18 04/19/18 # Incontinent Bowel Movements 2 Physical Exam: CONSTITUTIONAL/GENERAL: This is a frail 62 year old male. Withdrawn, limited engagement no apparent distress SKIN: No jaundice, rashes, or lesions. Well-healed cranial incision right head , obvious concave area from right bone flap removal.nurse applied soft helmet HEAD: right craniotomy, asymmetrical. EYES: pupils equal, reactive. no injection or drainage CARDIOVASCULAR: Regular rate and rhythm without murmur. No JVD. Peripheral pulses symmetric. RESPIRATORY/CHEST: Symmetric, unlabored respirations. Clear to auscultation. Breath sounds equal bilaterally. On room air. GASTROINTESTINAL: Abdomen soft, non-tender, nondistended. peg tube in place. Site asymptomatic. NEUROLOGICAL: Awake and alert. Oriented 23. Reluctant to engage in conversation. Appears to have some limited insight into hospitalization. Follows commands. Moves all 4 extremities. PSYCHIATRIC: flat Diagnostic Tests Laboratory: Laboratory Results - last 72 hr 04/16/18 04/18/18 04/18/18 18:25 08:25 08:25 WBC 3.4 L RBC 4.03 L Hgb 12.4 L Hct 37.7 L MCV 93.5 MCH 30.9 MCHC 33.0 RDW 13.7 Plt Count 286 MPV 7.3 Sodium 138 138 Potassium 4.3 4.2 Chloride 102 103 Carbon Dioxide 30.4 26.9 Anion Gap 6 8 BUN 12 13 Creatinine 0.63 0.57 L Estimated GFR Greater than 89 Greater than 89 Random Glucose 90 91 Calcium 8.7 9.3 Result Diagrams: 04/18/18 08:25 04/18/18 08:25 Assessment and Plan - Disease Oriented Problem List (1) SDH (subdural hematoma) Comment: Right frontal intraparenchymal hemorage s/p fall. Underwent decompressive creniectomy and duroplasty 03/23/2018 Dr. Chacko. (2) MRSA pneumonia Comment: Had been intubated for airway protection and for thick secretions. Pt extubated 03/25 (3) Cocaine abuse (4) Tobacco abuse (5) COPD (chronic obstructive pulmonary disease) (6) Asthma - Symptom Scale (1) Head ache 0-10 Scale: Unable to quantify Comment: did not quantify and not cooperative to characterize. (2) Nausea 0-10 Scale: Unable to quantify Pertinent Non-Medical Issues: Psychosocial:worked in [employer]. hx of etoh drug abuse. Has 2 chilren, on Daughter (i do not have name or contact at this point) and Son Wilson Jimenez [phone] Spiritual:did not disclose Legal:He had stated he want son Wilson Jimenez has health care surrogate, but was not very cooperative, and did not want to designate health care surrogate today Ethical issues impacting care: Important Contacts: Son Wilson Jimenez [phone] Daughter( unable to obtain today) family did get somewhat emotional and son needed to go find documents for pt's insurance. Prognosis: Pt is 62 male (copd/asthma/etoh/tobacco/coccaine abuse) who had syncopy, fell and hit his head. He had a 5x 3 right frontal lobe hemorrhage. Initially it was medical managment, but subsequent ct and neuro status worsened. 03/11 patient was intubated. 03/21: CT Head significant worsening of the [id number] midline shift frontal region, now measuring 2.1 cm, decreasing density of r frontal hematoma. 03/22 pt underwent right frontotemporal parietal decompressive craniectomy and duroplasty by Dr. Chacko. Eventually he was able to become alert enough and protect his airway enough to undergo medical extubation. He pulled his NG tube, so was peg tube was placed on 03/30. Neurologically he seem to be making progress with hospitalist documenting he is ambulating with assisstance in a walker. He has improve tremedously and I think if he is compliant there is a good chance he can get strong enough to stop tube feedings and improve. I will check with neurosurgery but I feel his prognosis is > 6 months at this point if he was compliant. Code Status: Full Code (by default) Plan: == capacity-mental status fluctuates status post TBI. He appears at the very least can participate in making medical decisions, with the support of family. He completed verbal designation of son Wilson as HCS == code status: full code. == Goals of care: Patient appears to have made general improvement during prolonged hospital course. Likely would continue to make slow improvement if able to cooperate with ongoing aggressive treatments. May not be appropriate for hospice. Patient withdrawn and with very little willingness to engage and participate. During prior palliative care interaction with patient's son who would be 1 of the proxies, goals were aggressive, not comfort oriented, not interested in hospice . == Symptom: --BATISTA- s/p surgery, intraparenchymal bleed. he has PRN Tylenol available, notified nursing of BATISTA today. Pt refused Tylenol was not able to further quantify/qualify BATISTA. May consider [place] 5/325 po/sl prn for breakthrough pain, though not clear that tylenol is not adequate. --nausea-Prev. Reports intermittent nausea. He is unable to further quantify or qualify. Denies today. receiving tube feeding. Was on calorie count for poor oral intake- adequate intake per initial calorie count, tmd teacher rec. d/c TF and recount calories > recount complete 04/18 noted not adequate, rec. cont TF 7p-7a with ensure supplement, PO diet during day. No nausea today. Having bowel movements. Has prn Zofran available; has not requested . will cont to evaluate, he is unable to describe frequency, possibly r/t TF? --flat/unengaged in rehab efforts- r/t brain injury. neuropsych rec. consider Amantadine . expected to require terminal press operator placement == Palliative care will continue to follow PRN during hospital course as condition evolves, to assist patient/decision-maker with understanding of medical conditions, weighing benefits/burdens of treatment options, for clarification of goals of treatment. Additionally will assist with any symptoms of palliative concern PRN Attestation Attestation: To help prompt me to consider important information that might be impacting today's encounter and assessment, information from prior notes written by myself or my colleagues may have been "brought forward" into today's note. My signature on this note, however, is an attestation that I personally performed the exam, history, and/or decision-making noted today, and, unless otherwise indicated, the interactions with patient, family, and staff as well as the review of records all occurred today. I also attest that the listed assessment and stated plan reflect my best clinical judgment today based on the combination of historical information, prior notes, and today's exam/ interactions. When time spent is documented, it refers only to time spent today by the signer, or if indicated, combined time spent today by collaborating physician/nurse practitioner.
--- NOTE | 2018-04-19 16:39 | P.PN ---
Subjective Interval history: Follow-up on patient with intracranial hemorrhage. Patient seen and examined. Patient awake sitting up in his bed. He is requesting his salt tablets. He appears comfortable at present. Discussed with nursing staff, no acute issues noted overnight. Patient is afebrile. Vital signs stable. Physical Exam Vital signs: Vital Signs 04/18/18 20:00 04/18/18 23:16 04/19/18 03:44 Temperature 97.7 F 98.2 F 98.7 F Pulse Rate 88 90 83 Respiratory Rate 18 18 18 Blood Pressure 118/80 125/83 123/86 Pulse Oximetry 99 99 99 04/19/18 12:00 Temperature 97.6 F Pulse Rate 97 H Respiratory Rate 16 Blood Pressure 112/79 Pulse Oximetry 94 L Intake & Output 04/18/18 04/19/18 04/19/18 18:59 06:59 18:59 Intake Total 720 / 720 480 / 480 Balance 720 / 720 480 / 480 Weight 53.7 kg Intake: Oral 720 / 720 480 / 480 Other: # Incontinent Voids 4 Date of Last Bowel Movement 04/19/18 04/19/18 # Incontinent Bowel Movements 2 Narrative: GENERAL: This is a thin, frail, -French male patient INAD. Awake, sitting up in bed. Wearing helmet. SKIN: Warm and dry. No generalized rash. HEAD: s/p right sided craniectomy. No bone flap over right parietal area. No sclera injection. No drainage. No nasal drainage. NECK: Supple, trachea midline. CARDIOVASCULAR: Regular rate and rhythm without murmurs, gallops, or rubs. RESPIRATORY: No accessory muscle use. Breath sounds equal bilaterally. Poor effort, clear to auscultation anteriorly. GASTROINTESTINAL: Abdomen soft, non-tender, nondistended. PEG site C/D/I. GENITOURINARY: Condom catheter in place with clear urine in bag. MUSCULOSKELETAL: No cyanosis or edema. NEURO: Awake. Sitting up in bed watching TV. Moves all extremities spontaneously. Minimal verbalization. PSYCHIATRIC: Calm at present. - Urinary Catheter Management Indwelling Temp Sensing Catheter Cath placed during this visit: yes, but has since been removed by the nurse Reason for continuing: Not indwelling catheter Insertion date: 03/12/18 Insertion time: 05:30 Removal date: 03/25/18 Removal time: 18:00 Indwelling Urethral Catheter Cath placed during this visit: yes, but has since been removed by the nurse Reason for continuing: Decision to DC catheter Insertion date: 03/22/18 Insertion time: 17:30 Removal date: 03/25/18 Removal time: 18:00 Condom Cath placed during this visit: yes, but has since been removed by the nurse Reason for continuing: Not indwelling catheter Removal date: 03/25/18 Removal time: 18:00 Results - Labs CBC & Chem 7: 04/18/18 08:25 04/18/18 08:25 - Imaging ITS Impressions Abdomen/Pelvis CT 03/13/18 00:00 CONCLUSION: 1. Moderate constipation with diffuse ileus. Rectum distended to 8 cm with stool. No small bowel obstruction. No significant free fluid. No free air. 2. Dodge catheter in bladder. NG coiled in stomach. Trace right pleural effusion. Abdomen X-Ray 03/17/18 08:00 CONCLUSION: Reduction in the gaseous distention of the colon. Chest X-Ray 03/28/18 06:00 CONCLUSION: 1. Lungs are clear. 2. Interval placement of a nasogastric tube with the tip projecting over the expected location of the gastric fundus Head CT 04/04/18 00:00 CONCLUSION: 1. The patient's exam is significantly improved compared to prior dated 2017. There is significant interval reduction in the amount of edema involving the right frontal cortex. No new areas of hemorrhage are identified. . - Procedures PEG 7 - right decompressive craniectomy 03/22/18 with placement of ICP monitor by Dr. Chacko, mt'ed 03/23/18 03/22/18 Right frontotemporal parietal decompressive craniectomy and Duroplasty 03/22/18 Left frontal bur hole with placement of an intracranial pressure monitor Assessment and Plan - Assessment (1) Intracranial hemorrhage following injury Code(s): S06.309A - Unspecified focal traumatic brain injury with loss of consciousness of unspecified duration, initial encounter Status: Acute (2) Traumatic brain injury Code(s): S06.9X9A - Unspecified intracranial injury with loss of consciousness of unspecified duration, initial encounter Status: Acute (3) Fall Code(s): W19.XXXA - Unspecified fall, initial encounter Status: Chronic (4) Cocaine abuse Code(s): F14.10 - Cocaine abuse, uncomplicated Status: Chronic (5) ETOH abuse Code(s): F10.10 - Alcohol abuse, uncomplicated Status: Chronic (6) Dysphagia Code(s): R13.10 - Dysphagia, unspecified Status: Acute - Plan 62-year-old male admitted secondary to intracranial hemorrhage Right frontal IPH 53.3 cm. SAH bilat frontal lobes, right parietal, temporal. Right frontotemporal SDH status post emergency craniectomy for decompression for worsening midline shift right to left 2.1 cm s/p Fall, ?syncope Daily alcohol use/Cocaine abuse - s/p Right frontotemporal parietal decompressive craniectomy and Duroplasty by Dr. Chacko. Will reach out to Dr. Chacko regarding scheduling of bone flap. - repeat head CT 04/04 with improvement - Continue on Keppra - Continue with PT/OT - PT recommends rehab at discharge - Seizure precautions Palliative care following, appreciate assistance. Per note, patient has improved tremendously. Feels he has capacity to make medical decisions with support of family. Recommended psych consult to assess capacity. Psychiatry consulted, appreciate assistance. - Dr. Narvaez following, appreciate assistance Dysphagia s/p PEG tube placement 03/30/18 - ST re-evaluated and patient given puree diet with honey thickened liquids. Calorie count done, still high nutrition risk. Tube feeding stopped. - Calorie count completed, inadequate intake. Resume TF Jevity 1.5 at 75 mls per hour 12 hours at night 7pm to 7am. Acute respiratory failure secondary to failure to protect airway-resolved extubated MRSA pneumonia, status post treatment with IV vancomycin and Rocephin Tobacco abuse Extubated 03/25/2018 - Continue as needed duo nebs - continue to monitor respiratory status - Supplemental oxygen as needed DVT prophylaxis SCDs No chemoprophylaxis anticoagulation due to recent intracranial bleed Code Status: FULL Discussed Condition With: patient, nursing staff, Dr. Ware Discharge Planning: Difficult placement. No payor source. CM assisting with ongoing discharge plan. (2) Traumatic brain injury Qualifiers: Encounter type: subsequent encounter
[2018-04-20] MEDS: Oral Hygiene Kit OROPHARYNG SCH ×3 (00:51→17:04)
[2018-04-20] MEDS: Carboxymethylcellulose 0.5% Opth Drops 15 ML Bottle EACH EYE SCH ×2 (06:49→17:04)
--- NOTE | 2018-04-20 08:26 | P.PN ---
Subjective Interval history: Follow-up on patient with intracranial hemorrhage. Patient seen and examined. Up in bed watching TV. He is complaining of a headache. He is asking for salt tablets. He denies any other complaints. Discussed with nursing staff, no acute issues noted. Physical Exam Vital signs: Vital Signs 04/19/18 12:00 04/19/18 16:00 04/19/18 20:00 Temperature 97.6 F 98.3 F 97.7 F Pulse Rate 97 H 84 95 H Respiratory Rate 16 16 18 Blood Pressure 112/79 124/81 121/80 Pulse Oximetry 94 L 98 97 04/20/18 00:00 04/20/18 04:00 Temperature 98.0 F Pulse Rate 84 99 H Respiratory Rate 18 18 Blood Pressure 127/79 110/66 Pulse Oximetry 99 96 Intake & Output 04/19/18 04/20/18 04/20/18 18:59 06:59 18:59 Intake Total 1020 / 1020 1100 / 1100 Balance 1020 / 1020 1100 / 1100 Intake: Oral 1020 / 1020 Tube Feeding 900 / 900 Water Bolus Amount 200 / 200 Other: # Voids 3 # Incontinent Voids 1 Date of Last Bowel Movement 04/19/18 04/19/18 # Bowel Movements 1 # Incontinent Bowel Movements 1 Narrative: GENERAL: This is a thin, frail, -[place] male patient INAD. Awake, sitting up in bed watching tv. Appears comfortable. SKIN: Warm and dry. No generalized rash. HEENT: s/p right sided craniectomy. No bone flap over right parietal area. No sclera injection. No drainage. No nasal drainage. NECK: Supple, trachea midline. CARDIOVASCULAR: Regular rate and rhythm without murmurs, gallops, or rubs. RESPIRATORY: No accessory muscle use. Breath sounds equal bilaterally. Poor effort, clear to auscultation anteriorly. GASTROINTESTINAL: Abdomen soft, non-tender, nondistended. PEG site C/D/I. GENITOURINARY: Condom catheter in place with clear urine in bag. MUSCULOSKELETAL: No cyanosis or edema. NEURO: Awake. Sitting up in bed watching TV. Moves right upper and lower extremity spontaneously. Very weak director of nurses registry on the left. Minimal toe wiggle appreciate on the left. Minimal verbalization. PSYCHIATRIC: Calm at present. - Urinary Catheter Management Indwelling Temp Sensing Catheter Cath placed during this visit: yes, but has since been removed by the nurse Reason for continuing: Not indwelling catheter Insertion date: 03/12/18 Insertion time: 05:30 Removal date: 03/25/18 Removal time: 18:00 Indwelling Urethral Catheter Cath placed during this visit: yes, but has since been removed by the nurse Reason for continuing: Decision to DC catheter Insertion date: 03/22/18 Insertion time: 17:30 Removal date: 03/25/18 Removal time: 18:00 Condom Cath placed during this visit: yes, but has since been removed by the nurse Reason for continuing: Not indwelling catheter Removal date: 03/25/18 Removal time: 18:00 Results - Labs CBC & Chem 7: 04/18/18 08:25 04/18/18 08:25 - Imaging ITS Impressions Abdomen/Pelvis CT 03/13/18 00:00 CONCLUSION: 1. Moderate constipation with diffuse ileus. Rectum distended to 8 cm with stool. No small bowel obstruction. No significant free fluid. No free air. 2. Dodge catheter in bladder. NG coiled in stomach. Trace right pleural effusion. Abdomen X-Ray 03/17/18 08:00 CONCLUSION: Reduction in the gaseous distention of the colon. Chest X-Ray 03/28/18 06:00 CONCLUSION: 1. Lungs are clear. 2. Interval placement of a nasogastric tube with the tip projecting over the expected location of the gastric fundus Head CT 04/04/18 00:00 CONCLUSION: 1. The patient's exam is significantly improved compared to prior dated 2017. There is significant interval reduction in the amount of edema involving the right frontal cortex. No new areas of hemorrhage are identified. . - Procedures PEG right decompressive craniectomy 03/22/18 with placement of ICP monitor by Dr. Chacko, ca'ed 03/23/18 03/22/18 Right frontotemporal parietal decompressive craniectomy and Duroplasty 03/22/18 Left frontal bur hole with placement of an intracranial pressure monitor Assessment and Plan - Assessment (1) Intracranial hemorrhage following injury Code(s): S06.309A - Unspecified focal traumatic brain injury with loss of consciousness of unspecified duration, initial encounter Status: Acute (2) Traumatic brain injury Code(s): S06.9X9A - Unspecified intracranial injury with loss of consciousness of unspecified duration, initial encounter Status: Acute (3) Fall Code(s): W19.XXXA - Unspecified fall, initial encounter Status: Chronic (4) Cocaine abuse Code(s): F14.10 - Cocaine abuse, uncomplicated Status: Chronic (5) ETOH abuse Code(s): F10.10 - Alcohol abuse, uncomplicated Status: Chronic (6) Dysphagia Code(s): R13.10 - Dysphagia, unspecified Status: Acute - Plan 62-year-old male admitted secondary to intracranial hemorrhage Right frontal IPH 53.3 cm. SAH bilat frontal lobes, right parietal, temporal. Right frontotemporal SDH status post emergency craniectomy for decompression for worsening midline shift right to left 2.1 cm s/p Fall, ?syncope Daily alcohol use/Cocaine abuse - s/p Right frontotemporal parietal decompressive craniectomy and Duroplasty by Dr. Chacko. 04/[address] Chacko who plans to place patient on the schedule for bone flap - repeat head CT 04/04 with improvement - Continue on Keppra - Continue with PT/OT - PT recommends rehab at discharge - Seizure precautions Palliative care following, appreciate assistance. Per note, patient has improved tremendously. Feels he has capacity to make medical decisions with support of family. Recommended psych consult to assess capacity. Psychiatry consulted, appreciate assistance. - Dr. Narvaez following, appreciate assistance Headache - Fioricet prn Dysphagia s/p PEG tube placement 03/30/18 - ST re-evaluated and patient given puree diet with honey thickened liquids. Calorie count done, still high nutrition risk. Tube feeding stopped. - Calorie count completed, inadequate intake. 04/20 TF resumed - Jevity 1.5 at 75 mls per hour 12 hours at night 7pm to 7am. Acute respiratory failure secondary to failure to protect airway-resolved extubated MRSA pneumonia, status post treatment with IV vancomycin and Rocephin Tobacco abuse Extubated 03/25/2018 - Continue as needed duo nebs - continue to monitor respiratory status - Supplemental oxygen as needed DVT prophylaxis SCDs No chemoprophylaxis anticoagulation due to recent intracranial bleed Code Status: FULL Discussed Condition With: patient, RN, Dr. Ware, Dr. Chacko, CM Discharge Planning: Difficult placement. No payor source. CM assisting with ongoing discharge plan. Plan for bone flap in the near future. (2) Traumatic brain injury Qualifiers: Encounter type: subsequent encounter
--- NOTE | 2018-04-20 08:29 | P.PNNPSY ---
- Behavior Intact: Coping/acceptance, Cooperative with treatment - Cognitive Mild: Confused/orientation, Moderate: Cognitive, Attention/concentration, Severe : Insight/awareness, Judgment/problem solving - Psychosocial Severe: Psychosocial, Family/other adjustment, Realistic expectation, Self- esteem/confidence - Progress Notes/Response to Treatment Contents of Sessions: Adjustment, Level of consciousness Time with Patient: 15 minutes Premorbid Psychological Status: Premorbid Cognitive, Emotional and Behavioral Status: Unstable. The patient has high school and AA degree years of education and a minimal work history prior to this injury. The patient has prior psychiatric difficulties, as described above. Substance abuse history is significant. Behavioral Reactions of Patient and Family/Support System: Unstable. The patient has one daughter whom he reported he has minimal contact. This patient s family may be experiencing ongoing issues of adjustment given the nature of the injury, and this aspect of recovery will require ongoing monitoring. Emotional/Behavioral Status of Patient and Family/Support System: Unstable. Pertinent issues, if appropriate to this patients clinical care, are described in detail above. Maximizing Acute Care Outcome: It is recommended that the patient be monitored for emergent behavioral impulsivity as the medical condition evolves. The ABS is already started and he is not agitated/restless. This patients neuropathological challenges may limit rehabilitation potential going forward, and these challenges will require specialized therapeutic skills to maximize outcome. At this point in the recovery process, the patient does not have cognitive capacity as the patient is unable to understand a situation and its likely consequences, nor is the patient able to manipulate information rationally. Cognitive capacity will be assessed throughout the recovery process. Anticipated Problems: Ongoing areas of concern will include behavioral impulsivity, lack of insight and judgment, which may not improve with time or treatment. Presently, the patient follows commands when told to do so. Given the severity of the patient' s injuries it is my clinical opinion that this patient will be unable to return to any type of productive employment for at least one year, perhaps longer and likely never. This patient is not considered safe to discharge home without supervision. He will likely require SNF placement. Treatment Plan: This clinician will continue to follow with you throughout the course of this patients acute care treatment, and I will be available to meet with the patient s family/support system to facilitate their understanding and the ongoing care of their family member. The goals of neuropsychological intervention shall be both educational and supportive to the family/support system as is deemed clinically appropriate. Disinhibition Score: 15.75 Aggression Score: 14.00 Lability Score: 14.00 Agitated Behavior Total Score: 15 Impression: This 62 year old male with s/p bifrontal TBI, DC and history of polysubstance dependence who is day 47 post admission. This patient presents with neurobehavioral sequelae consistent with frontal lobe pathology, including bradyphrenia, abulia, disconnection between thought and emotion, motor impersistence as well as demonstrating visual neglect (versus field cut). These issues are approaching chronic in nature particularly in the context of underlying neuropathology related to his polysubstance dependence. Progress Note Narrative: Day 48 of patient's hospitalization. No significant issues of agitation/ restlessness at present, and the patient has been generally compliant. It is noted that Palliative care feels the patient has decision making capacity, although in my note from yesterday, it is my clinical opinion that this patient lacks such capacity. What was likely not taken into account was that this patient has bilateral frontal lobe injury and right hemisphere injury that affects his awareness, insight and judgment, all placed within a context of polysubstance dependence. I will follow. - Diagnosis (1) Major neurocognitive disorder as late effect of traumatic brain injury with behavioral disturbance Status: Acute (2) Polysubstance dependence Status: Acute
[2018-04-20] MEDS: Folic Acid 1 MG Tablet PO SCH (08:39)
[2018-04-20] MEDS: Sennosides Liq 8.8 MG/5 ML UDC NG/OG SCH ×2 (08:39→20:49)
[2018-04-21] MEDS: Oral Hygiene Kit OROPHARYNG SCH ×2 (06:01→19:48)
[2018-04-21] MEDS: Carboxymethylcellulose 0.5% Opth Drops 15 ML Bottle EACH EYE SCH ×3 (06:01→19:49)
--- NOTE | 2018-04-21 06:55 | P.PN ---
Subjective Interval history: Follow-up on patient with intracranial hemorrhage. Patient seen and examined. Appears comfortable. DW nursing staff, no acute events noted. Physical Exam Vital signs: Vital Signs 04/20/18 08:00 04/20/18 12:00 04/20/18 16:00 Temperature 98.2 F 98.0 F 97.5 F L Pulse Rate 91 H 87 89 Respiratory Rate 14 18 18 Blood Pressure 111/74 113/81 115/75 Pulse Oximetry 98 96 97 04/20/18 20:00 04/21/18 00:00 04/21/18 04:00 Temperature 97.8 F 98 F 99 F Pulse Rate 88 93 H 92 H Respiratory Rate 16 16 16 Blood Pressure 120/81 116/71 111/74 Pulse Oximetry 96 96 97 Intake & Output 04/20/18 04/20/18 04/21/18 06:59 18:59 06:59 Intake Total 1100 / 1100 3020 / 3020 0 / 0 Output Total 765 / 765 400 / 400 Balance 1100 / 1100 2255 / 2255 -400 / -400 Weight 55 kg Intake: Oral 1020 / 1020 0 / 0 Tube Feeding 900 / 900 900 / 900 Tube Irrigant 100 / 100 Water Bolus Amount 200 / 200 200 / 200 Anesthesia Amount 800 / 800 Output: Urine 2 / 2 400 / 400 Stool 2 / 2 Urine/Stool Mix 1 / 1 Urine Amount (Catheter) 700 / 700 Condom 700 / 700 Wound Drainage 60 / 60 Head 60 / 60 Other: Post Void Residual 300 # Voids 3 2 # Incontinent Voids 1 1 Date of Last Bowel Movement 04/19/18 04/19/18 04/21/18 # Bowel Movements 1 2 # Incontinent Bowel Movements 1 1 Narrative: GENERAL: This is a thin, frail, -[place] male patient. Awake. Appears comfortable. Not in any distress. SKIN: Warm and dry. No generalized rash. HEENT: s/p right sided craniectomy. No bone flap over right parietal area. No sclera injection. No drainage. No nasal drainage. NECK: Supple, trachea midline. CARDIOVASCULAR: Regular rate and rhythm without murmurs, gallops, or rubs. RESPIRATORY: No accessory muscle use. Breath sounds equal bilaterally. Poor effort, clear to auscultation anteriorly. GASTROINTESTINAL: Abdomen soft, non-tender, nondistended. PEG site C/D/I. GENITOURINARY: Condom catheter in place with clear urine in bag. MUSCULOSKELETAL: No cyanosis or edema. NEURO: Awake. Moves right upper and lower extremity spontaneously. Very weak timber bucker on the left. Minimal toe wiggle appreciate on the left. Minimal verbalization. PSYCHIATRIC: Calm at present. - Urinary Catheter Management Indwelling Temp Sensing Catheter Cath placed during this visit: yes, but has since been removed by the nurse Reason for continuing: Not indwelling catheter Insertion date: 03/12/18 Insertion time: 05:30 Removal date: 03/25/18 Removal time: 18:00 Indwelling Urethral Catheter Cath placed during this visit: yes, but has since been removed by the nurse Reason for continuing: Decision to DC catheter Insertion date: 03/22/18 Insertion time: 17: Removal date: 03/25/18 Removal time: 18:00 Condom Cath placed during this visit: yes, but has since been removed by the nurse Reason for continuing: Not indwelling catheter Removal date: 03/25/18 Removal time: 18:00 Results - Labs CBC & Chem 7: 04/18/18 08:25 04/18/18 08:25 - Imaging ITS Impressions Abdomen/Pelvis CT 03/13/18 00:00 CONCLUSION: 1. Moderate constipation with diffuse ileus. Rectum distended to 8 cm with stool. No small bowel obstruction. No significant free fluid. No free air. 2. Dodge catheter in bladder. NG coiled in stomach. Trace right pleural effusion. Abdomen X-Ray 03/17/18 08:00 CONCLUSION: Reduction in the gaseous distention of the colon. Chest X-Ray 03/28/18 06:00 CONCLUSION: 1. Lungs are clear. 2. Interval placement of a nasogastric tube with the tip projecting over the expected location of the gastric fundus Head CT 04/04/18 00:00 CONCLUSION: 1. The patient's exam is significantly improved compared to prior dated 2017. There is significant interval reduction in the amount of edema involving the right frontal cortex. No new areas of hemorrhage are identified. . - Procedures PEG - right decompressive craniectomy 03/22/18 with placement of ICP monitor by Dr. Chacko, [place]'ed 03/23/18 03/22/18 Right frontotemporal parietal decompressive craniectomy and Duroplasty 03/22/18 Left frontal bur hole with placement of an intracranial pressure monitor Assessment and Plan - Assessment (1) Intracranial hemorrhage following injury Code(s): S06.309A - Unspecified focal traumatic brain injury with loss of consciousness of unspecified duration, initial encounter Status: Acute (2) Traumatic brain injury Code(s): S06.9X9A - Unspecified intracranial injury with loss of consciousness of unspecified duration, initial encounter Status: Acute (3) Fall Code(s): W19.XXXA - Unspecified fall, initial encounter Status: Chronic (4) Cocaine abuse Code(s): F14.10 - Cocaine abuse, uncomplicated Status: Chronic (5) ETOH abuse Code(s): F10.10 - Alcohol abuse, uncomplicated Status: Chronic (6) Dysphagia Code(s): R13.10 - Dysphagia, unspecified Status: Acute - Plan 62-year-old male admitted secondary to intracranial hemorrhage 04/21 No significant change. Not in any acute distress. VSS. Afebrile. 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 SAH bilat frontal lobes, right parietal, temporal. Right frontotemporal SDH status post emergency craniectomy for decompression for worsening midline shift right to left 2.1 cm s/p Fall, ?syncope Daily alcohol use/Cocaine abuse - s/p Right frontotemporal parietal decompressive craniectomy and Duroplasty by Dr. Chacko. 04/[address] Chacko who plans to place patient on the schedule for bone flap - repeat head CT 04/04 with improvement - Continue on Keppra - Continue with PT/OT - PT recommends rehab at discharge - Seizure precautions Palliative care following, appreciate assistance. Per note, patient has improved tremendously. Feels he has capacity to make medical decisions with support of family. Recommended psych consult to assess capacity. Psychiatry consulted, appreciate assistance. - Dr. Narvaez following, appreciate assistance Headache - Fioricet prn Dysphagia s/p PEG tube placement 03/30/18 - ST re-evaluated and patient given puree diet with honey thickened liquids. Calorie count done, still high nutrition risk. Tube feeding stopped. - Calorie count completed, inadequate intake. 04/20 TF resumed - Jevity 1.5 at 75 mls per hour 12 hours at night 7pm to 7am. Acute respiratory failure secondary to failure to protect airway-resolved extubated MRSA pneumonia, status post treatment with IV vancomycin and Rocephin Tobacco abuse Extubated 03/25/2018 - Continue as needed duo nebs - continue to monitor respiratory status - Supplemental oxygen as needed DVT prophylaxis SCDs No chemoprophylaxis anticoagulation due to recent intracranial bleed Code Status: FULL Discussed Condition With: patient, nursing staff, CM, Dr. Ware Discharge Planning: Difficult placement. No payor source. CM assisting with ongoing discharge plan. Plan for bone flap in the near future. (2) Traumatic brain injury Qualifiers: Encounter type: subsequent encounter
[2018-04-21] MEDS: Folic Acid 1 MG Tablet PO SCH (10:05)
[2018-04-21] MEDS: Sennosides Liq 8.8 MG/5 ML UDC NG/OG SCH ×2 (10:06→20:47)
--- NOTE | 2018-04-22 07:38 | P.PN ---
Subjective Interval history: Follow-up on patient with intracranial hemorrhage. Patient seen and examined. Patient is not in any distress. He appears comfortable. Vital signs stable. He is afebrile. Discussed with nursing staff, no acute issues noted. Physical Exam Vital signs: Vital Signs 04/21/18 08:00 04/21/18 12:00 04/21/18 16:00 Temperature 98 F 97.8 F 99.8 F H Pulse Rate 90 98 H 97 H Respiratory Rate 18 Blood Pressure 117/78 118/83 119/78 Pulse Oximetry 96 96 95 04/21/18 20:00 04/22/18 00:00 04/22/18 04:00 Temperature 97.8 F 98.2 F 98 F Pulse Rate 91 H 84 81 Respiratory Rate 18 Blood Pressure 102/72 111/78 120/75 Pulse Oximetry 98 99 100 Intake & Output 04/21/18 04/22/18 04/22/18 18:59 06:59 18:59 Intake Total 960 / 960 740 / 740 Output Total 5 / 5 Balance 955 / 955 740 / 740 Weight 55 kg Intake: Oral 960 / 960 240 / 240 Tube Feeding 500 / 500 Output: Urine 3 / 3 Stool 2 / 2 Other: # Voids 4 Date of Last Bowel Movement 04/21/18 04/21/18 04/22/18 Narrative: GENERAL: This is a thin, frail, -[place] male patient, INAD. Appears comfortable. SKIN: Warm and dry. No generalized rash. HEENT: s/p right sided craniectomy. No bone flap over right parietal area. No sclera injection. No drainage. No nasal drainage. NECK: Supple, trachea midline. CARDIOVASCULAR: Regular rate and rhythm without murmurs, gallops, or rubs. RESPIRATORY: No accessory muscle use. Breath sounds equal bilaterally. Poor effort, clear to auscultation anteriorly. GASTROINTESTINAL: Abdomen soft, non-tender, nondistended. PEG site C/D/I. MUSCULOSKELETAL: No cyanosis or edema. NEURO: Awake. Moves right upper and lower extremity spontaneously. 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 Minimal toe wiggle appreciate on the left. Minimal verbalization. PSYCHIATRIC: Calm at present. - Urinary Catheter Management Indwelling Temp Sensing Catheter Cath placed during this visit: yes, but has since been removed by the nurse Reason for continuing: Not indwelling catheter Insertion date: 03/12/18 Insertion time: 05:30 Removal date: 03/25/18 Removal time: 18:00 Indwelling Urethral Catheter Cath placed during this visit: yes, but has since been removed by the nurse Reason for continuing: Decision to DC catheter Insertion date: 03/22/18 Insertion time: 17:30 Removal date: 03/25/18 Removal time: 18:00 Condom Cath placed during this visit: yes, but has since been removed by the nurse Reason for continuing: Not indwelling catheter Removal date: 03/25/18 Removal time: 18:00 Results - Labs CBC & Chem 7: 04/18/18 08:25 04/18/18 08:25 - Procedures PEG 7 right decompressive craniectomy 03/22/18 with placement of ICP monitor by Dr. Chacko, ms'ed 03/23/18 03/22/18 Right frontotemporal parietal decompressive craniectomy and Duroplasty 03/22/18 Left frontal bur hole with placement of an intracranial pressure monitor Assessment and Plan - Assessment (1) Intracranial hemorrhage following injury Code(s): S06.309A - Unspecified focal traumatic brain injury with loss of consciousness of unspecified duration, initial encounter Status: Acute (2) Traumatic brain injury Code(s): S06.9X9A - Unspecified intracranial injury with loss of consciousness of unspecified duration, initial encounter Status: Acute (3) Fall Code(s): W19.XXXA - Unspecified fall, initial encounter Status: Chronic (4) Cocaine abuse Code(s): F14.10 - Cocaine abuse, uncomplicated Status: Chronic (5) ETOH abuse Code(s): F10.10 - Alcohol abuse, uncomplicated Status: Chronic (6) Dysphagia Code(s): R13.10 - Dysphagia, unspecified Status: Acute - Plan 62-year-old male admitted secondary to intracranial hemorrhage 04/22 Patient is stable. No change. Not in any acute distress. VSS. Afebrile. DW RN, no acute events noted. 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 SAH bilat frontal lobes, right parietal, temporal. Right frontotemporal SDH status post emergency craniectomy for decompression for worsening midline shift right to left 2.1 cm s/p Fall, ?syncope Daily alcohol use/Cocaine abuse - s/p Right frontotemporal parietal decompressive craniectomy and Duroplasty by Dr. Chacko. 04/[address] Chacko who plans to place patient on the schedule for bone flap - repeat head CT 04/04 with improvement - Continue on Keppra - Continue with PT/OT - PT recommends rehab at discharge - Seizure precautions Palliative care following, appreciate assistance. Per note, patient has improved tremendously. Feels he has capacity to make medical decisions with support of family. Recommended psych consult to assess capacity. Psychiatry consulted, appreciate assistance. - Dr. Narvaez following, appreciate assistance Headache - Fioricet prn Dysphagia s/p PEG tube placement 03/30/18 - ST re-evaluated and patient given puree diet with honey thickened liquids. Calorie count done, still high nutrition risk. Tube feeding stopped. - Calorie count completed, inadequate intake. 04/20 TF resumed - Jevity 1.5 at 75 mls per hour 12 hours at night 7pm to 7am. Acute respiratory failure secondary to failure to protect airway-resolved extubated MRSA pneumonia, status post treatment with IV vancomycin and Rocephin Tobacco abuse Extubated 03/25/2018 - Continue as needed duo nebs - continue to monitor respiratory status - Supplemental oxygen as needed DVT prophylaxis SCDs No chemoprophylaxis anticoagulation due to recent intracranial bleed Code Status: FULL Discussed Condition With: patient, RN, nursing staff Discharge Planning: Difficult placement. No payor source. CM assisting with ongoing discharge plan. Plan for bone flap in the near future by Dr. Chacko. (2) Traumatic brain injury Qualifiers: Encounter type: subsequent encounter
[2018-04-22] MEDS: Folic Acid 1 MG Tablet PO SCH (10:28)
[2018-04-22] MEDS: Oral Hygiene Kit OROPHARYNG SCH ×5 (10:29→23:34)
[2018-04-22] MEDS: Sennosides Liq 8.8 MG/5 ML UDC NG/OG SCH ×2 (10:30→20:00)
[2018-04-22] MEDS: Butalbital/APAP/Caff 50/325/40 MG Tablet PO PRN ×2 (12:00→23:52)
[2018-04-22] MEDS: Carboxymethylcellulose 0.5% Opth Drops 15 ML Bottle EACH EYE SCH ×2 (14:00→22:20)
[2018-04-23] MEDS: Oral Hygiene Kit OROPHARYNG SCH ×3 (05:41→17:51)
[2018-04-23] MEDS: Carboxymethylcellulose 0.5% Opth Drops 15 ML Bottle EACH EYE SCH ×2 (07:11→15:16)
--- NOTE | 2018-04-23 07:31 | P.PN ---
Subjective Interval history: Follow-up on patient with intracranial hemorrhage. Patient seen and examined. Patient is complaining of headache. He is also requesting a soda and something to eat. He denies any other complaints. DW nursing staff, no acute issues. Physical Exam Vital signs: Vital Signs 04/22/18 08:00 04/22/18 12:00 04/22/18 16:00 Temperature 97.6 F 98.5 F 98.3 F Pulse Rate 81 113 H 82 Respiratory Rate 18 Blood Pressure 121/76 144/65 H 142/76 H Pulse Oximetry 97 95 99 04/22/18 20:00 04/23/18 00:00 04/23/18 01:45 Temperature 97.4 F L 97.7 F Pulse Rate 88 86 Respiratory Rate 18 Blood Pressure 114/81 132/83 Pulse Oximetry 97 98 04/23/18 04:00 Temperature 98 F Pulse Rate 81 Respiratory Rate 18 Blood Pressure 115/75 Pulse Oximetry 98 Intake & Output 04/22/18 04/23/18 04/23/18 18:59 06:59 18:59 Intake Total 856 / 856 Balance 856 / 856 Weight 55.3 kg Intake: Tube Feeding 856 / 856 Other: # Voids 4 # Incontinent Voids 3 Date of Last Bowel Movement 04/22/18 04/22/18 # Incontinent Bowel Movements 3 Narrative: GENERAL: This is a thin, frail, -[place] male patient, INAD. Awake and alert. SKIN: Warm and dry. No generalized rash. HEENT: s/p right sided craniectomy. No bone flap over right parietal area. No sclera injection. No drainage. No nasal drainage. NECK: Supple, trachea midline. CARDIOVASCULAR: Regular rate and rhythm without murmurs, gallops, or rubs. RESPIRATORY: No accessory muscle use. Breath sounds equal bilaterally. Poor effort, clear to auscultation anteriorly. GASTROINTESTINAL: Abdomen soft, non-tender, nondistended. PEG site C/D/I. MUSCULOSKELETAL: No cyanosis or edema. NEURO: Awake and alert. Moves right upper and lower extremity spontaneously. 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 Minimal toe wiggle appreciated on the left. Normal speech. PSYCHIATRIC: Calm at present. - Urinary Catheter Management Indwelling Temp Sensing Catheter Cath placed during this visit: yes, but has since been removed by the nurse Reason for continuing: Not indwelling catheter Insertion date: 03/12/18 Insertion time: 05:30 Removal date: 03/25/18 Removal time: 18:00 Indwelling Urethral Catheter Cath placed during this visit: yes, but has since been removed by the nurse Reason for continuing: Decision to DC catheter Insertion date: 03/22/18 Insertion time: 17:30 Removal date: 03/25/18 Removal time: 18:00 Condom Cath placed during this visit: yes, but has since been removed by the nurse Reason for continuing: Not indwelling catheter Removal date: 03/25/18 Removal time: 18:00 Results - Labs CBC & Chem 7: 04/18/18 08:25 04/18/18 08:25 - Procedures PEG right decompressive craniectomy 03/22/18 [facility] 03/22/18 Right frontotemporal parietal decompressive craniectomy and Duroplasty 03/22/18 Left frontal bur hole with placement of an intracranial pressure monitor Assessment and Plan - Assessment (1) Intracranial hemorrhage following injury Code(s): S06.309A - Unspecified focal traumatic brain injury with loss of consciousness of unspecified duration, initial encounter Status: Acute (2) Traumatic brain injury Code(s): S06.9X9A - Unspecified intracranial injury with loss of consciousness of unspecified duration, initial encounter Status: Acute (3) Fall Code(s): W19.XXXA - Unspecified fall, initial encounter Status: Chronic (4) Cocaine abuse Code(s): F14.10 - Cocaine abuse, uncomplicated Status: Chronic (5) ETOH abuse Code(s): F10.10 - Alcohol abuse, uncomplicated Status: Chronic (6) Dysphagia Code(s): R13.10 - Dysphagia, unspecified Status: Acute - Plan 62-year-old male admitted secondary to intracranial hemorrhage 04/23 No significant change. Patient is stable. Not in any acute distress. VSS. Afebrile. DW RN, no acute events noted. 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 SAH bilat frontal lobes, right parietal, temporal. Right frontotemporal SDH status post emergency craniectomy for decompression for worsening midline shift right to left 2.1 cm s/p Fall, ?syncope Daily alcohol use/Cocaine abuse - s/p Right frontotemporal parietal decompressive craniectomy and Duroplasty by Dr. Chacko. 04/[address] Chacko who plans to place patient on the schedule for bone flap - repeat head CT 04/04 with improvement - Continue on Keppra - no seizure activity reported - Continue with PT/OT - PT recommends rehab at discharge - Seizure precautions Palliative care following, appreciate assistance. Per note, patient has improved tremendously. Feels he has capacity to make medical decisions with support of family. Recommended psych consult to assess capacity. Psychiatry consulted, appreciate assistance. - Dr. Narvaez following, appreciate assistance Headache, chronic repeat CT head 04/04 showed improvement - Fioricet prn Dysphagia s/p PEG tube placement 03/30/18 - ST re-evaluated and patient given puree diet with honey thickened liquids. Calorie count done, still high nutrition risk. Tube feeding stopped. - Calorie count completed, inadequate intake. 04/20 TF resumed - Jevity 1.5 at 75 mls per hour 12 hours at night 7pm to 7am. Acute respiratory failure secondary to failure to protect airway-resolved extubated MRSA pneumonia, status post treatment with IV vancomycin and Rocephin Tobacco abuse Extubated 03/25/2018 - Continue as needed duo nebs - continue to monitor respiratory status - Supplemental oxygen as needed DVT prophylaxis SCDs No chemoprophylaxis anticoagulation due to recent intracranial bleed Code Status: FULL Discussed Condition With: patient, nursing staff, Dr. Ware Discharge Planning: Difficult placement. No payor source. CM assisting with ongoing discharge plan. Plan for bone flap in the near future by Dr. Chacko. (2) Traumatic brain injury Qualifiers: Encounter type: subsequent encounter
[2018-04-23] MEDS: Butalbital/APAP/Caff 50/325/40 MG Tablet PO PRN (08:59)
[2018-04-23] MEDS: Sennosides Liq 8.8 MG/5 ML UDC NG/OG SCH (09:01)
[2018-04-23] MEDS: Folic Acid 1 MG Tablet PO SCH (09:03)
[2018-04-24] MEDS: Sennosides Liq 8.8 MG/5 ML UDC NG/OG SCH ×3 (00:01→21:25)
[2018-04-24] MEDS: Oral Hygiene Kit OROPHARYNG SCH ×5 (00:02→23:39)
[2018-04-24] MEDS: Carboxymethylcellulose 0.5% Opth Drops 15 ML Bottle EACH EYE SCH ×5 (00:02→22:48)
[2018-04-24] MEDS: Butalbital/APAP/Caff 50/325/40 MG Tablet PO PRN (00:03)
--- NOTE | 2018-04-24 07:39 | P.PN ---
Subjective Interval history: Follow-up on patient with intracranial hemorrhage. Patient seen and examined. Patient is much more verbal today. He reports poor sleep last night 2/2 constant headache. He is asking for something to "knock him out". He is specifically requesting Percodan. He complains of constant throbbing headache with intermittent sharp shooting pains. He reports associated photophobia. He denies any relief with the Harris or Fioricet. He states that is why he keeps the covers over his head. He denies any other complaints. Physical Exam Vital signs: Vital Signs 04/23/18 08:00 04/23/18 12:00 04/23/18 16:00 Temperature 98 F 97.9 F 97.2 F L Pulse Rate 80 94 H 85 Respiratory Rate 20 20 20 Blood Pressure 118/81 128/103 H 126/86 Pulse Oximetry 97 99 99 04/23/18 20:00 04/24/18 00:00 04/24/18 04:00 Temperature 98.0 F 97.5 F L 97.7 F Pulse Rate 82 76 78 Respiratory Rate 16 16 16 Blood Pressure 116/79 124/86 117/71 Pulse Oximetry 97 98 97 Intake & Output 04/23/18 04/24/18 04/24/18 18:59 06:59 18:59 Intake Total 1370 / 1370 Output Total 225 / 225 Balance 1145 / 1145 Weight 55.7 kg Intake: Oral 470 / 470 Tube Feeding 900 / 900 Output: Urine 225 / 225 Other: # Voids 2 # Incontinent Voids 2 Date of Last Bowel Movement 04/22/18 04/23/18 Narrative: GENERAL: This is a thin, frail, -[place] male patient, INAD. Awake and alert. Eating breakfast with assistance. SKIN: Warm and dry. No generalized rash. HEENT: s/p right sided craniectomy. No bone flap over right parietal area. No sclera injection. No drainage. No nasal drainage. NECK: Supple, trachea midline. CARDIOVASCULAR: Regular rate and rhythm without murmurs, gallops, or rubs. RESPIRATORY: No accessory muscle use. Breath sounds equal bilaterally. Poor effort, clear to auscultation anteriorly. GASTROINTESTINAL: Abdomen soft, non-tender, nondistended. PEG site C/D/I. MUSCULOSKELETAL: No cyanosis or edema. NEURO: Awake and alert. Moves right upper and lower extremity spontaneously. 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 Minimal toe wiggle appreciated on the left. Normal speech. PSYCHIATRIC: Calm and cooperative. Insight and judgement poor. - Urinary Catheter Management Indwelling Temp Sensing Catheter Cath placed during this visit: yes, but has since been removed by the nurse Reason for continuing: Not indwelling catheter Insertion date: 03/12/18 Insertion time: 05:30 Removal date: 03/25/18 Removal time: 18:00 Indwelling Urethral Catheter Cath placed during this visit: yes, but has since been removed by the nurse Reason for continuing: Decision to DC catheter Insertion date: 03/22/18 Insertion time: 17:30 Removal date: 03/25/18 Removal time: 18:00 Condom Cath placed during this visit: yes, but has since been removed by the nurse Reason for continuing: Not indwelling catheter Removal date: 03/25/18 Removal time: 18:00 Results - Labs CBC & Chem 7: 04/18/18 08:25 04/18/18 08:25 - Procedures PEG 7 -25 right decompressive craniectomy 03/22/18 with placement of ICP monitor by Dr. Chacko, ma'ed 03/23/18 03/22/18 Right frontotemporal parietal decompressive craniectomy and Duroplasty 03/22/18 Left frontal bur hole with placement of an intracranial pressure monitor Assessment and Plan - Assessment (1) Intracranial hemorrhage following injury Code(s): S06.309A - Unspecified focal traumatic brain injury with loss of consciousness of unspecified duration, initial encounter Status: Acute (2) Traumatic brain injury Code(s): S06.9X9A - Unspecified intracranial injury with loss of consciousness of unspecified duration, initial encounter Status: Acute (3) Fall Code(s): W19.XXXA - Unspecified fall, initial encounter Status: Chronic (4) Cocaine abuse Code(s): F14.10 - Cocaine abuse, uncomplicated Status: Chronic (5) ETOH abuse Code(s): F10.10 - Alcohol abuse, uncomplicated Status: Chronic (6) Dysphagia Code(s): R13.10 - Dysphagia, unspecified Status: Acute - Plan 62-year-old male admitted secondary to intracranial hemorrhage 04/24 C/o constant throbbing headache with intermittent sharp shooting pain with associated photophobia not relieved with Harris 5/325mg or Fioricet. He is not in any acute distress. DW nursing staff. Restoril prn insomnia. D/C Fioricet. Increase Harris to 7.5/325mg. Consult Neurology for assistance. Monitor. 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 SAH bilat frontal lobes, right parietal, temporal. Right frontotemporal SDH status post emergency craniectomy for decompression for worsening midline shift right to left 2.1 cm s/p Fall, ?syncope Daily alcohol use/Cocaine abuse - s/p Right frontotemporal parietal decompressive craniectomy and Duroplasty by Dr. Chacko. 04/[address] Chacko who plans to place patient on the schedule for bone flap - repeat head CT 04/04 with improvement - Continue on Keppra - no seizure activity reported - Continue with PT/OT - PT recommends rehab at discharge - Seizure precautions Palliative care following, appreciate assistance. Per note, patient has improved tremendously. Feels he has capacity to make medical decisions with support of family. Recommended psych consult to assess capacity. Psychiatry consulted, appreciate assistance. - Dr. Narvaez following, appreciate assistance Headache, chronic repeat CT head 04/04 showed improvement - Fioricet prn Dysphagia s/p PEG tube placement 03/30/18 - ST re-evaluated and patient given puree diet with honey thickened liquids. Calorie count done, still high nutrition risk. Tube feeding stopped. - Calorie count completed, inadequate intake. 04/20 TF resumed - Jevity 1.5 at 75 mls per hour 12 hours at night 7pm to 7am. Acute respiratory failure secondary to failure to protect airway-resolved extubated MRSA pneumonia, status post treatment with IV vancomycin and Rocephin Tobacco abuse Extubated 03/25/2018 - Continue as needed duo nebs - continue to monitor respiratory status - Supplemental oxygen as needed DVT prophylaxis SCDs No chemoprophylaxis anticoagulation due to recent intracranial bleed Code Status: FULL Discussed Condition With: patient, nursing staff, Dr. Ware Discharge Planning: Difficult placement. No payor source. CM assisting with ongoing discharge plan. Plan for bone flap in the near future by Dr. Chacko. (2) Traumatic brain injury Qualifiers: Encounter type: subsequent encounter
[2018-04-24] MEDS: Folic Acid 1 MG Tablet PO SCH (10:40)
[2018-04-25] MEDS: Oral Hygiene Kit OROPHARYNG SCH ×3 (03:55→23:40)
[2018-04-25] MEDS: Carboxymethylcellulose 0.5% Opth Drops 15 ML Bottle EACH EYE SCH ×3 (05:31→21:34)
--- NOTE | 2018-04-25 07:20 | P.PN ---
Subjective Interval history: Patient not in any acute distress. No significant change. Patient is stable. Discussed with nursing staff, no acute issues noted. Physical Exam Vital signs: Vital Signs 04/24/18 08:00 04/24/18 12:00 04/24/18 16:00 Temperature 98.4 F 97.6 F 98 F Pulse Rate 80 81 78 Respiratory Rate 20 20 20 Blood Pressure 113/73 126/80 134/80 Pulse Oximetry 97 96 96 04/24/18 20:00 04/25/18 00:00 04/25/18 04:00 Temperature 97.6 F 97.8 F 97.1 F L Pulse Rate 85 78 76 Respiratory Rate 18 18 18 Blood Pressure 110/72 111/75 116/77 Pulse Oximetry 100 97 100 04/25/18 05:10 Temperature Pulse Rate Respiratory Rate 20 Blood Pressure Pulse Oximetry Intake & Output 04/24/18 04/25/18 04/25/18 18:59 06:59 18:59 Intake Total 480 / 480 Balance 480 / 480 Weight 54.1 kg Intake: Oral 240 / 240 Oral Supplement 240 / 240 Other: # Incontinent Voids 3 1 Date of Last Bowel Movement 04/24/18 # Bowel Movements 1 Narrative: GENERAL: This is a thin, frail, -[place] male patient, INAD. Awake and alert. SKIN: Warm and dry. No generalized rash. HEENT: s/p right sided craniectomy. No bone flap over right parietal area. No sclera injection. No drainage. No nasal drainage. NECK: Supple, trachea midline. CARDIOVASCULAR: Regular rate and rhythm without murmurs, gallops, or rubs. RESPIRATORY: No accessory muscle use. Breath sounds equal bilaterally. Poor effort, clear to auscultation anteriorly. GASTROINTESTINAL: Abdomen soft, non-tender, nondistended. PEG site C/D/I. MUSCULOSKELETAL: No cyanosis or edema. NEURO: Awake and alert. Moves right upper and lower extremity spontaneously. 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 Minimal toe wiggle appreciated on the left. Normal speech. PSYCHIATRIC: Calm and cooperative. Insight and judgement poor. - Urinary Catheter Management Indwelling Temp Sensing Catheter Cath placed during this visit: yes, but has since been removed by the nurse Reason for continuing: Not indwelling catheter Insertion date: 03/12/18 Insertion time: 05:30 Removal date: 03/25/18 Removal time: 18:00 Indwelling Urethral Catheter Cath placed during this visit: yes, but has since been removed by the nurse Reason for continuing: Decision to DC catheter Insertion date: 03/22/18 Insertion time: 17:30 Removal date: 03/25/18 Removal time: 18:00 Condom Cath placed during this visit: yes, but has since been removed by the nurse Reason for continuing: Not indwelling catheter Removal date: 03/25/18 Removal time: 18:00 Results - Labs CBC & Chem 7: 04/18/18 08:25 04/18/18 08:25 - Procedures PEG 7 right decompressive craniectomy 03/22/18 with placement of ICP monitor by Dr. Chacko, la'ed 03/23/18 03/22/18 Right frontotemporal parietal decompressive craniectomy and Duroplasty 03/22/18 Left frontal bur hole with placement of an intracranial pressure monitor Assessment and Plan - Assessment (1) Intracranial hemorrhage following injury Code(s): S06.309A - Unspecified focal traumatic brain injury with loss of consciousness of unspecified duration, initial encounter Status: Acute (2) Traumatic brain injury Code(s): S06.9X9A - Unspecified intracranial injury with loss of consciousness of unspecified duration, initial encounter Status: Acute (3) Fall Code(s): W19.XXXA - Unspecified fall, initial encounter Status: Chronic (4) Cocaine abuse Code(s): F14.10 - Cocaine abuse, uncomplicated Status: Chronic (5) ETOH abuse Code(s): F10.10 - Alcohol abuse, uncomplicated Status: Chronic (6) Dysphagia Code(s): R13.10 - Dysphagia, unspecified Status: Acute - Plan 62-year-old male admitted secondary to intracranial hemorrhage 04/25 no acute issues noted. Patient is stable. No significant change. 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 SAH bilat frontal lobes, right parietal, temporal. Right frontotemporal SDH status post emergency craniectomy for decompression for worsening midline shift right to left 2.1 cm s/p Fall, ?syncope Daily alcohol use/Cocaine abuse - s/p Right frontotemporal parietal decompressive craniectomy and Duroplasty by Dr. Chacko. 04/20 Dr. Chacko who plans to place patient on the schedule for bone flap - repeat head CT 04/04 with improvement - Continue on Keppra - no seizure activity reported - Continue with PT/OT - PT recommends rehab at discharge - Seizure precautions Palliative care following, appreciate assistance. Per note, patient has improved tremendously. Feels he has capacity to make medical decisions with support of family. Recommended psych consult to assess capacity. Psychiatry consulted, appreciate assistance. - Dr. Narvaez following, appreciate assistance Headache repeat CT head 04/04 showed improvement -Neurology following, appreciate assistance. Plan to repeat CT head to r/o changes. Start on Topamax 50mg BID for likely vascular component. Dysphagia s/p PEG tube placement 03/30/18 - ST re-evaluated and patient given puree diet with nectar thickened liquids. - Calorie count completed, inadequate intake. 04/20 TF resumed - Jevity 1.5 at 75 mls per hour 12 hours at night 7pm to 7am. 04/25 patient reevaluated by dietitian, recommends continued nighttime feeding and supplement Acute respiratory failure secondary to failure to protect airway-resolved extubated MRSA pneumonia, status post treatment with IV vancomycin and Rocephin Tobacco abuse Extubated 03/25/2018 - Continue as needed duo nebs - continue to monitor respiratory status - Supplemental oxygen as needed DVT prophylaxis SCDs No chemoprophylaxis anticoagulation due to recent intracranial bleed Code Status: FULL Discussed Condition With: Patient, nursing staff, Dr. Constantino Discharge Planning: Difficult placement. No payor source. CM assisting with ongoing discharge plan. Plan for bone flap in the near future by Dr. Chacko. (2) Traumatic brain injury Qualifiers: Encounter type: subsequent encounter
[2018-04-25] MEDS: Sennosides Liq 8.8 MG/5 ML UDC NG/OG SCH ×2 (08:08→21:22)
[2018-04-25] MEDS: Folic Acid 1 MG Tablet PO SCH (08:08)
--- NOTE | 2018-04-25 15:34 | MB ---
cc: Benson Garcia MD, PhD DATE: 04/25/2018 REASON FOR CONSULTATION: Headache, history of traumatic brain injury. HISTORY OF PRESENT ILLNESS: Mr. Jain is a 63-year-old man with a history of traumatic brain injury after he suffered a syncopal episode, dizziness and hit his head. CT scan showing a 5 cm x 3 cm right frontal lobe hemorrhage with some element of subarachnoid hemorrhage, mild mass effect. He was hypertensive which is controlled and was started initially on Keppra for seizure prophylaxis. His CT cervical spine revealed degenerative changes, but no fracture. He underwent a right decompressive craniectomy 03/22/2018 due to increasing mass effects. The patient is now relating severe headaches, mainly left-sided throbbing, pounding headaches with associated nausea, photophobia. Last CT of the brain done 04/04/2018 showed large area of edema involving the right frontal and portion of the right temporal lobe, blood products had undergone evolution. Ventricular system was normal in size. MEDICATIONS: Currently are: 1. Tylenol. 2. [place] p.r.n. 3. Albuterol nebs. 4. Folic acid. 5. Lactulose. 6. Liquid Prevacid. 7. Keppra 500 mg b.i.d. 8. Multivitamin. 9. Temazepam p.r.n. NEUROLOGICAL EXAM: VITAL SIGNS: His blood pressure is 127/95, pulse is 79, temperature is 97.4 degrees. HIGHER CORTICAL FUNCTION: He is alert, follows commands. Speech is slightly dysarthric, but not aphasic. Cranial nerves are intact. MOTOR EXAM: He has got a left hemiparesis, roughly 3/5 strength left arm and left leg with normal strength on the right. IMPRESSION: History of traumatic right frontal hematoma status post craniotomy, probably post-hemorrhage headaches, probably vascular headaches. RECOMMENDATION: I would like to repeat the CT of the brain to rule out any changes. Recommend starting Topamax 50 mg b.i.d. for probable vascular component of his headache. Benson Garcia MD, PhD RADHA/kemal/rivera , 02:32 PM , 02:40 PM
--- NOTE | 2018-04-25 16:39 | P.DIET ---
Nutritional Evaluation Type of nutrition evaluation: follow-up Nutrition consult regarding: Tube Feeding Nutrition screening: [facility] [place] Subjective Subjective Comments: He is drinking the Ensure Enlive sometimes and likes the Ensure Pudding. He eats ~50% at best. Headaches interfere with intake at times. Objective - Diagnosis ICH, SAH, Syncope - Objective % IBW: 87 (IBW = 166#) Body Weight Used for Calculations: Actual (65.4 kg) Energy Needs - Lower Range (kCal/kg): 28 Energy Needs - Upper Range (kCal/kg): 33 Lower Limit kCal/kg (kCals): 1,831 Upper Limit kCal/kg (kCals): 2,158 Lower Limit Protein Factor (Grams per Kg): 1.2 Upper Limit Protein Factor (Grams per Kg): 1.5 Lower Protein Needs (Protein): 79 Upper Protein Needs (Protein): 98 Fluid Factor (ml/kg): 28 Estimated Fluid Needs (ml): 1,831 Dietitian Reviewed in Medical Record: Current diet, Curent medications, Intake & Output, Labs, Medical history, Tube feeding, Wound/DTI Diet Order: Pureed, Honey Thickened Liquids Speech Therapy Recommendations: Yes (pureed, nectar thickened liquids) Objective Comments: PMH: COPD, Asthma, tobacco abuse, daily ETOH use 03/22 R front temporal parietal decompressive craniectomy Integumentary: coccyx pressure injury PEG placement 03/30/18 Meds Include: Keppra, Norvasc, Catapres, Lactulose, Theragran, Thiamine, Folic Acid Feeding - Current Tube Feeding Tube Feeding Product: Jevity 1.5 Tube Feeding Rate: 75 (mls/hr x 12 hours) Tube Feeding Route: gastrostomy Current kCals Provided by Tube Feedin,350 Current Protein Provided by Tube Feeding (gPRO): 57 - Current PO Supplement Current Supplement: Ensure Enlive Current Frequency of Supplement: Three times a day Current kCals Provided by Supplement: 350 Current Protein Provided by Supplement: 20 Supplement Comments: plus Ensure Pudding(= 170 kcal and 4g protein per serving) Assessment Assessment: Pt was extubated on 03/25 and PEG tube placed 03/30. Current diet is pureed with nectar thickened liquids and Ensure Enlive and Ensure Pudding added. CBW is 54.1 kg which indicates ~26# weight loss since admission. Recommend continue night time TFing to supplement po intake to prevent further nutritional compromise. Recommend continue Jevity 1.5 @ 75 mls/hr from 7pm -7am to provide 1350 kcals and [address] will continue to follow closely. Recommendations: 1. Diet per ST 2. Continue TF: Jevity 1.5 @ 75 mls/hr x 12 hours at night 3.Continue Ensure Enlive TID 4.Continue Ensure Pudding TID Dietitian to Monitor: Lab values, Supplement acceptance, Intake & Output, Diet tolerance, Weight change, PO Intake, Wound/skin status, Medical course
[2018-04-25] MEDS: Topiramate 25 MG Tablet PO SCH (21:22)
--- NOTE | 2018-04-26 01:41 | CT ---
EXAM DATE: 04/26/2018 1:23 AM EDT AGE/SEX: 63 years / Male INDICATIONS: Intracerebral hemorrhage. CLINICAL DATA: This is the patient's subsequent encounter. Patient reports that signs and symptoms h ave been present for 1 month and indicates a pain score of 2/10. MEDICAL/SURGICAL HISTORY: Asthma. Chronic obstructive pulmonary disease. Traumatic brain injury, d rug abuse. Craniotomy. RADIATION DOSE: 26.95 CTDI (mGy) COMPARISON: [facility] [place], 04/04/2018. . TECHNIQUE: CT of the head without contrast. Using automated exposure control and adjustment of the mA and/or kV according to patient size, radiation dose was kept as low as reasonably achievable to ob tain optimal diagnostic quality images. DICOM format image data is available electronically for revi ew and comparison. FINDINGS: Again seen is a large right craniectomy. The underlying dura shows stippled calcifications. No hemorr germaine, acute infarction, or mass observed. There is 5 mm of right to left midline shift which is stabl e from the prior study. Ventricles remain patent. CONCLUSION: 1. Stable exam with large right craniectomy defect and 5 mm of midline shift. No hemorrhage apprecia andrés. . Electronically signed by: Marco A Soto MD 04/26/2018 1:40 AM EDT
--- NOTE | 2018-04-26 01:42 | CT ---
EXAM DATE: 04/26/2018 1:23 AM EDT AGE/SEX: 63 years / Male INDICATIONS: AV malformation. CLINICAL DATA: This is the patient's initial encounter. Patient reports that signs and symptoms have been present for 1 day and indicates a pain score of 3/10. MEDICAL/SURGICAL HISTORY: Asthma. Chronic obstructive pulmonary disease. Traumatic brain injury, d rug abuse. Craniotomy. RADIATION DOSE: 20.88 CTDI (mGy) COMPARISON: [facility] [place], [place] HEAD W/O CONTRAST, 04/26/2018. . TECHNIQUE: Volumetric scanning was performed using a multi-row detector CT scanner during bolus infu maxx of 74 ml Omnipaque 350 (iohexol) nonionic water-soluble contrast as a single exam dose. The d sudha was post processed with a variety of visualization algorithms including full volume maximum inten sity projection, multi-planar sliding thin slab reformation, curved planar reformation, and surface r endering techniques. Using automated exposure control and adjustment of the mA and/or kV according t o patient size, radiation dose was kept as low as reasonably achievable to obtain optimal diagnostic quality images. DICOM format image data is available electronically for review and comparison. FINDINGS: There is excellent visualization of the major intracranial arteries out to the second-order branch ve ssels. There is no evidence for aneurysm, vessel truncation or stenosis, and no evidence for vascula r malformation. CONCLUSION: 1. Negative CTA Head. Electronically signed by: Marco A Soto MD 04/26/2018 1:41 AM EDT
--- NOTE | 2018-04-26 07:00 | P.PN ---
Subjective Interval history: Patient states his headache is "so-so". He denies any other complaints. Patient is stable. He is afebrile. Discussed with nursing staff, no acute issues noted. Physical Exam Vital signs: Vital Signs 04/25/18 08:00 04/25/18 12:00 04/25/18 16:00 Temperature 97.6 F 97.4 F L 97.5 F L Pulse Rate 71 79 82 Respiratory Rate 18 16 18 Blood Pressure 128/84 127/95 H 114/77 Pulse Oximetry 98 98 97 04/25/18 20:00 04/25/18 21:20 Temperature 97.4 F L Pulse Rate 85 Respiratory Rate 18 18 Blood Pressure 124/78 Pulse Oximetry 95 Intake & Output 04/25/18 04/26/18 04/26/18 18:59 06:59 18:59 Intake Total 480 / 480 2267 / 2267 Output Total 988 / 988 Balance 480 / 480 1279 / 1279 Weight 54.1 kg Intake: Oral 480 / 480 480 / 480 Oral Supplement 240 / 240 Tube Feeding 447 / 447 Tube Irrigant 100 / 100 Water Bolus Amount 200 / 200 Anesthesia Amount 800 / 800 Output: Urine 225 / 225 Stool 2 / 2 Urine/Stool Mix 1 / 1 Urine Amount (Catheter) 700 / 700 Condom 700 / 700 Wound Drainage 60 / 60 Head 60 / 60 Other: Post Void Residual 300 # Voids 2 # Incontinent Voids 3 3 Date of Last Bowel Movement 04/25/18 # Bowel Movements 1 # Incontinent Bowel Movements 3 Narrative: GENERAL: This is a thin, frail, -Tong[place] male patient, INAD. Awake and alert. Eating breakfast with assistance. SKIN: Warm and dry. No generalized rash. HEENT: s/p right sided craniectomy. No bone flap over right parietal area. No sclera injection. No drainage. No nasal drainage. NECK: Supple, trachea midline. CARDIOVASCULAR: Regular rate and rhythm without murmurs, gallops, or rubs. RESPIRATORY: No accessory muscle use. Breath sounds equal bilaterally. Poor effort, clear to auscultation anteriorly. GASTROINTESTINAL: Abdomen soft, non-tender, nondistended. PEG site C/D/I. MUSCULOSKELETAL: No cyanosis or edema. NEURO: Awake and alert. Moves right upper and lower extremity spontaneously. 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 Minimal toe wiggle appreciated on the left. Normal speech. PSYCHIATRIC: Calm and cooperative. Insight and judgement poor. - Urinary Catheter Management Indwelling Temp Sensing Catheter Cath placed during this visit: yes, but has since been removed by the nurse Reason for continuing: Not indwelling catheter Insertion date: 03/12/18 Insertion time: 05:30 Removal date: 03/25/18 Removal time: 18:00 Indwelling Urethral Catheter Cath placed during this visit: yes, but has since been removed by the nurse Reason for continuing: Decision to DC catheter Insertion date: 03/22/18 Insertion time: 17:30 Removal date: 03/25/18 Removal time: 18:00 Condom Cath placed during this visit: yes, but has since been removed by the nurse Reason for continuing: Not indwelling catheter Removal date: 03/25/18 Removal time: 18:00 Results - Labs CBC & Chem 7: 04/18/18 08:25 04/18/18 08:25 - Imaging Impressions Head CT 04/26/18 00:00 CONCLUSION: 1. Stable exam with large right craniectomy defect and 5 mm of midline shift. No hemorrhage appreciated. . Head CTA 04/26/18 00:00 CONCLUSION: 1. Negative CTA Head. - Procedures PEG 7 right decompressive craniectomy 03/22/18 with placement of ICP monitor by Dr. Chacko, pa'ed 03/23/18 03/22/18 Right frontotemporal parietal decompressive craniectomy and Duroplasty 03/22/18 Left frontal bur hole with placement of an intracranial pressure monitor Assessment and Plan - Assessment (1) Intracranial hemorrhage following injury Code(s): S06.309A - Unspecified focal traumatic brain injury with loss of consciousness of unspecified duration, initial encounter Status: Acute (2) Traumatic brain injury Code(s): S06.9X9A - Unspecified intracranial injury with loss of consciousness of unspecified duration, initial encounter Status: Acute (3) Fall Code(s): W19.XXXA - Unspecified fall, initial encounter Status: Chronic (4) Cocaine abuse Code(s): F14.10 - Cocaine abuse, uncomplicated Status: Chronic (5) ETOH abuse Code(s): F10.10 - Alcohol abuse, uncomplicated Status: Chronic (6) Dysphagia Code(s): R13.10 - Dysphagia, unspecified Status: Acute - Plan 62-year-old male admitted secondary to intracranial hemorrhage 8/21 no significant change. Patient is stable. He is afebrile. Vital signs stable. ?Headache improved since starting on Topamax. 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 SAH bilat frontal lobes, right parietal, temporal. Right frontotemporal SDH status post emergency craniectomy for decompression for worsening midline shift right to left 2.1 cm s/p Fall, ?syncope Daily alcohol use/Cocaine abuse - s/p Right frontotemporal parietal decompressive craniectomy and Duroplasty by Dr. Chacko. 04/[address] Chacko who plans to place patient on the schedule for bone flap - repeat head CT 04/04 with improvement - Continue on Keppra - no seizure activity reported - Continue with PT/OT - PT recommends rehab at discharge - Seizure precautions Palliative care following, appreciate assistance. Per note, patient has improved tremendously. Feels he has capacity to make medical decisions with support of family. Recommended psych consult to assess capacity. Psychiatry consulted, appreciate assistance. - Dr. Narvaez following, appreciate assistance Headache repeat CT head 04/[address] head 04/26 shows stable exam with large right craniectomy defect and 5 mm midline shift, no hemorrhage CTA head negative -Neurology following, appreciate assistance. Started on Topamax 50mg BID for likely vascular component. Dysphagia s/p PEG tube placement 03/30/18 - ST re-evaluated and patient given puree diet with nectar thickened liquids. - Calorie count completed, inadequate intake. 04/20 TF resumed - Jevity 1.5 at 75 mls per hour 12 hours at night 7pm to 7am. 04/25 patient reevaluated by dietitian, recommends continued nighttime feeding and supplement Acute respiratory failure secondary to failure to protect airway-resolved extubated MRSA pneumonia, status post treatment with IV vancomycin and Rocephin Tobacco abuse Extubated 03/25/2018 - Continue as needed duo nebs - continue to monitor respiratory status - Supplemental oxygen as needed DVT prophylaxis SCDs No chemoprophylaxis anticoagulation due to recent intracranial bleed Code Status: FULL Discussed Condition With: Dr. Constantino, patient, nursing staff Discharge Planning: Difficult placement. No payor source. CM assisting with ongoing discharge plan. Plan for bone flap in the near future by Dr. Chacko. (2) Traumatic brain injury Qualifiers: Encounter type: subsequent encounter
[2018-04-26] MEDS: Oral Hygiene Kit OROPHARYNG SCH ×3 (07:41→17:23)
[2018-04-26] MEDS: Carboxymethylcellulose 0.5% Opth Drops 15 ML Bottle EACH EYE SCH ×2 (07:41→13:33)
[2018-04-26] MEDS: Folic Acid 1 MG Tablet PO SCH (08:01)
[2018-04-26] MEDS: Sennosides Liq 8.8 MG/5 ML UDC NG/OG SCH (08:01)
[2018-04-26] MEDS: Topiramate 25 MG Tablet PO SCH (08:02)
--- NOTE | 2018-04-26 17:07 | P.PNNS ---
Subjective Interval history: 04/26: doing well, denies headaches, would like his bone flap replaced. Physical Exam Vital signs: Vital Signs 04/25/18 20:00 04/25/18 21:20 04/26/18 08:00 Temperature 97.4 F L 97.9 F Pulse Rate 85 83 Respiratory Rate 18 18 19 Blood Pressure 124/78 121/83 Pulse Oximetry 95 97 Intake & Output 04/25/18 04/26/18 04/26/18 18:59 06:59 18:59 Intake Total 480 / 480 2267 / 2267 Output Total 988 / 988 Balance 480 / 480 1279 / 1279 Weight 54.1 kg Intake: Oral 480 / 480 480 / 480 Oral Supplement 240 / 240 Tube Feeding 447 / 447 Tube Irrigant 100 / 100 Water Bolus Amount 200 / 200 Anesthesia Amount 800 / 800 Output: Urine 225 / 225 Stool 2 / 2 Urine/Stool Mix 1 / 1 Urine Amount (Catheter) 700 / 700 Condom 700 / 700 Wound Drainage 60 / 60 Head 60 / 60 Other: Post Void Residual 300 # Voids 2 # Incontinent Voids 3 3 Date of Last Bowel Movement 04/25/18 # Bowel Movements 1 # Incontinent Bowel Movements 3 Narrative: Right bone flap well decompressed His previous surgical wound well healed Awake, alert, mildly converse oriented to name and place - Urinary Catheter Management Indwelling Temp Sensing Catheter Cath placed during this visit: yes, but has since been removed by the nurse Reason for continuing: Not indwelling catheter Insertion date: 03/12/18 Insertion time: 05:30 Removal date: 03/25/18 Removal time: 18:00 Indwelling Urethral Catheter Cath placed during this visit: yes, but has since been removed by the nurse Reason for continuing: Decision to DC catheter Insertion date: 03/22/18 Insertion time: 17:30 Removal date: 03/25/18 Removal time: 18:00 Condom Cath placed during this visit: yes, but has since been removed by the nurse Reason for continuing: Not indwelling catheter Removal date: 03/25/18 Removal time: 18:00 Assessment and Plan - Plan Impression: 62 y/o male with increased right intracerebral edema with significant 2 cm midline shift, he underwent right decompressive craniectomy 03/22/18 with placement of ICP monitor by Dr. Chacko, pr'ed 03/23/18 right bone flap well decompressed, doing well neurologically Plan: will plan for cranioplasty, need to check surgery schedule
--- NOTE | 2018-04-26 20:47 | P.PNNEU ---
Subjective Subjective Comments: no new sx. BATISTA without change. tolerating topamax Active Medications: Active Medications Acetaminophen (Tylenol Liq) 650 mg NG/OG Q6H PRN PRN Reason: HEADACHE OR TEMP > 101 F Last Admin: 04/20/18 08:40 Dose: 650 mg Hydrocodone Bitart/Acetaminophen ([place] 7.5/325) 1 tab G-TUBE Q6H PRN PRN Reason: PAIN SCALE 6 TO 10 Last Admin: 04/26/18 09:25 Dose: 1 tab Al Hydrox/Mg Hydrox/Simethicone (Mag-Al Plus Susp Liq) 30 ml PO Q6H PRN PRN Reason: DYSPEPSIA Albuterol (Albuterol Neb (Prn)) 2.5 mg NEB Q2HR NEB PRN PRN Reason: WHEEZING Last Admin: 03/17/18 03:27 Dose: 2.5 mg Artificial Tears (Refresh Tears 0.5% Opth Drops) 1 drop EACH EYE Q8HR [facility] Last Admin: 04/26/18 13:33 Dose: Not Given Folic Acid (Folic Acid) 1 mg PO DAILY [facility] Last Admin: 04/26/18 08:01 Dose: 1 mg Lactulose (Lactulose Liq) 30 ml PO DAILY [facility] Last Admin: 04/09/18 08:03 Dose: Not Given Lansoprazole (Prevacid Solutab) 30 mg NG/OG DAILY [facility] Last Admin: 04/26/18 08:01 Dose: 30 mg Levetiracetam (Keppra Liq) 500 mg NG/OG BID [facility] Last Admin: 04/26/18 08:01 Dose: 500 mg Menthol ([place]) 1 lozenge BUCCAL UNSCH PRN PRN Reason: SORE THROAT Last Admin: 04/17/18 22:30 Dose: 1 lozenge Multivitamins (Theragran) 1 tab PO DAILY [facility] Last Admin: 04/26/18 08:01 Dose: 1 tab Ondansetron HCl (Zofran Inj) 4 mg IV.PUSH Q6H PRN PRN Reason: NAUSEA OR VOMITING Promethazine HCl (Phenergan Inj) 25 mg IM Q4H PRN PRN Reason: NAUSEA OR VOMITING Sennosides (Senna Liq) 8.8 mg NG/OG BID [facility] Last Admin: 04/26/18 08:01 Dose: Not Given Sodium Chloride (Ns Flush) 2 ml IV.FLUSH UNSCH PRN PRN Reason: FLUSH AFTER USING IV ACCESS Sodium Chloride (Ns Flush) 2 ml IV.FLUSH BID [facility] Last Admin: 04/26/18 08:01 Dose: 2 ml Temazepam (Restoril) 7.5 mg G-TUBE HS PRN PRN Reason: INSOMNIA Thiamine HCl (Vitamin B1) 100 mg PO BID [facility] Last Admin: 04/26/18 08:01 Dose: 100 mg Topiramate (Topamax) 50 mg PO BID [facility] Last Admin: 04/26/18 08:02 Dose: 50 mg Allergies/Adverse Reactions: Allergies Allergy/AdvReac Type Severity Reaction Status Date / Time No Known Allergies Allergy Unknown Uncoded 03/03/18 20:43 Physical Exam Vital signs: Vital Signs 04/25/18 21:20 04/26/18 08:00 04/26/18 12:00 Temperature 97.9 F 97.9 F Pulse Rate 83 83 Respiratory Rate 18 19 19 Blood Pressure 121/83 121/83 Pulse Oximetry 97 97 04/26/18 16:00 Temperature 98.4 F Pulse Rate 84 Respiratory Rate 19 Blood Pressure 122/82 Pulse Oximetry 99 Intake & Output 04/26/18 04/26/18 04/27/18 06:59 18:59 06:59 Intake Total 2267 / 2267 960 / 960 Output Total 988 / 988 Balance 1279 / 1279 960 / 960 Weight 54.1 kg Intake: Oral 480 / 480 960 / 960 Oral Supplement 240 / 240 Tube Feeding 447 / 447 Tube Irrigant 100 / 100 Water Bolus Amount 200 / 200 Anesthesia Amount 800 / 800 Output: Urine 225 / 225 Stool 2 / 2 Urine/Stool Mix 1 / 1 Urine Amount (Catheter) 700 / 700 Condom 700 / 700 Wound Drainage 60 / 60 Head 60 / 60 Other: Post Void Residual 300 # Voids 2 3 # Incontinent Voids 3 Date of Last Bowel Movement 04/25/18 04/26/18 # Bowel Movements 1 1 # Incontinent Bowel Movements 3 - Routine Exam Comments: alert, follow commands CN intact MOTOR 4/5 BUE - Urinary Catheter Management Indwelling Temp Sensing Catheter Cath placed during this visit: yes, but has since been removed by the nurse Reason for continuing: Not indwelling catheter Insertion date: 03/12/18 Insertion time: 05:30 Removal date: 03/25/18 Removal time: 18:00 Indwelling Urethral Catheter Cath placed during this visit: yes, but has since been removed by the nurse Reason for continuing: Decision to DC catheter Insertion date: 03/22/18 Insertion time: 17:30 Removal date: 03/25/18 Removal time: 18:00 Condom Cath placed during this visit: yes, but has since been removed by the nurse Reason for continuing: Not indwelling catheter Removal date: 03/25/18 Removal time: 18:00 Objective Radiology Results: CT brain stable s/p craniotomy with stable edema CTA brain---normal Review/Management - Diagnosis (1) Intracranial hemorrhage following injury Code(s): S06.309A - Unspecified focal traumatic brain injury with loss of consciousness of unspecified duration, initial encounter Status: Acute Current Visit: Yes - Review/Management Plan: continue topamax for headache
[2018-04-27] MEDS: Topiramate 25 MG Tablet PO SCH ×3 (00:02→21:16)
[2018-04-27] MEDS: Sennosides Liq 8.8 MG/5 ML UDC NG/OG SCH ×3 (00:02→21:17)
[2018-04-27] MEDS: Carboxymethylcellulose 0.5% Opth Drops 15 ML Bottle EACH EYE SCH ×3 (00:03→14:08)
[2018-04-27] MEDS: Oral Hygiene Kit OROPHARYNG SCH ×4 (00:03→17:43)
--- NOTE | 2018-04-27 07:38 | P.PN ---
Subjective Interval history: Patient is stable. No significant change. Patient denies any improvement in headache with addition of Topamax. He denies any new medical complaints. Physical Exam Vital signs: Vital Signs 04/26/18 08:00 04/26/18 12:00 04/26/18 16:00 Temperature 97.9 F 97.9 F 98.4 F Pulse Rate 83 83 84 Respiratory Rate 19 19 19 Blood Pressure 121/83 121/83 122/82 Pulse Oximetry 97 97 99 04/26/18 21:30 04/27/18 00:45 Temperature 98 F 97.8 F Pulse Rate 88 80 Respiratory Rate 18 17 Blood Pressure 132/80 127/67 Pulse Oximetry 96 97 Intake & Output 04/26/18 04/27/18 04/27/18 18:59 06:59 18:59 Intake Total 960 / 960 800 / 800 Balance 960 / 960 800 / 800 Intake: Oral 960 / 960 800 / 800 Other: # Voids 3 1 Date of Last Bowel Movement 04/26/18 04/26/18 # Bowel Movements 1 # Incontinent Bowel Movements 2 Narrative: GENERAL: This is a thin, frail, -Surinamese male patient. Awake and alert. Not in any distress. SKIN: Warm and dry. No generalized rash. HEENT: s/p right sided craniectomy. No bone flap over right parietal area. No sclera injection. No drainage. No nasal drainage. NECK: Trachea midline. Airway patent. CARDIOVASCULAR: Regular rate and rhythm without murmurs, gallops, or rubs. RESPIRATORY: No accessory muscle use. Breath sounds equal bilaterally. Poor effort, clear to auscultation anteriorly. GASTROINTESTINAL: Abdomen soft, non-tender, nondistended. PEG site C/D/I. MUSCULOSKELETAL: No cyanosis or edema. NEURO: Awake and alert. Moves right upper and lower extremity spontaneously. 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 Minimal toe wiggle appreciated on the left. Normal speech. PSYCHIATRIC: Calm and cooperative. Insight and judgement poor. - Urinary Catheter Management Indwelling Temp Sensing Catheter Cath placed during this visit: yes, but has since been removed by the nurse Reason for continuing: Not indwelling catheter Insertion date: 03/12/18 Insertion time: 05:30 Removal date: 03/25/18 Removal time: 18:00 Indwelling Urethral Catheter Cath placed during this visit: yes, but has since been removed by the nurse Reason for continuing: Decision to DC catheter Insertion date: 03/22/18 Insertion time: 17:30 Removal date: 03/25/18 Removal time: 18:00 Condom Cath placed during this visit: yes, but has since been removed by the nurse Reason for continuing: Not indwelling catheter Removal date: 03/25/18 Removal time: 18:00 Results - Labs CBC & Chem 7: 04/18/18 08:25 04/18/18 08:25 - Procedures PEG 7 -25 right decompressive craniectomy 03/22/18 with placement of ICP monitor by Dr. Chacko, nh'ed 03/23/18 03/22/18 Right frontotemporal parietal decompressive craniectomy and Duroplasty 03/22/18 Left frontal bur hole with placement of an intracranial pressure monitor Assessment and Plan - Assessment (1) Intracranial hemorrhage following injury Code(s): S06.309A - Unspecified focal traumatic brain injury with loss of consciousness of unspecified duration, initial encounter Status: Acute (2) Traumatic brain injury Code(s): S06.9X9A - Unspecified intracranial injury with loss of consciousness of unspecified duration, initial encounter Status: Acute (3) Fall Code(s): W19.XXXA - Unspecified fall, initial encounter Status: Chronic (4) Cocaine abuse Code(s): F14.10 - Cocaine abuse, uncomplicated Status: Chronic (5) ETOH abuse Code(s): F10.10 - Alcohol abuse, uncomplicated Status: Chronic (6) Dysphagia Code(s): R13.10 - Dysphagia, unspecified Status: Acute - Plan 62-year-old male admitted secondary to intracranial hemorrhage 04/27 patient started on Topamax by neurology service. Patient denies any improvement. Will discuss increasing dose with Dr. Garcia. Neurosurgery planning on cranioplasty in the near future. 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 SAH bilat frontal lobes, right parietal, temporal. Right frontotemporal SDH status post emergency craniectomy for decompression for worsening midline shift right to left 2.1 cm s/p Fall, ?syncope Daily alcohol use/Cocaine abuse - s/p Right frontotemporal parietal decompressive craniectomy and Duroplasty by Dr. Chacko. 04/20 Dr. Chacko who plans to place patient on the schedule for bone flap - repeat head CT 04/04 with improvement - Continue on Keppra - no seizure activity reported - Continue with PT/OT - PT recommends rehab at discharge - Seizure precautions Palliative care following, appreciate assistance. Per note, patient has improved tremendously. Feels he has capacity to make medical decisions with support of family. Recommended psych consult to assess capacity. Psychiatry consulted, appreciate assistance. - Dr. Narvaez following, appreciate assistance Headache repeat CT head 04/[address] head 04/26 shows stable exam with large right craniectomy defect and 5 mm midline shift, no hemorrhage CTA head negative -Neurology following, appreciate assistance. Started on Topamax 50mg BID for likely vascular component. BATISTA persistent. ?increase dose, will discuss further with neurology. Dysphagia s/p PEG tube placement 03/30/18 - ST re-evaluated and patient given puree diet with nectar thickened liquids. - Calorie count completed, inadequate intake. 04/20 TF resumed - Jevity 1.5 at 75 mls per hour 12 hours at night 7pm to 7am. 04/25 patient reevaluated by dietitian, recommends continued nighttime feeding and supplement Acute respiratory failure secondary to failure to protect airway-resolved extubated MRSA pneumonia, status post treatment with IV vancomycin and Rocephin Tobacco abuse Extubated 03/25/2018 - Continue as needed duo nebs - continue to monitor respiratory status - Supplemental oxygen as needed DVT prophylaxis SCDs No chemoprophylaxis anticoagulation due to recent intracranial bleed Code Status: FULL Discussed Condition With: patient, nursing staff, Dr. Constantino Discharge Planning: Difficult placement. No payor source. CM assisting with ongoing discharge plan. Plan for cranioplasty in the near future by Dr. Chacko. (2) Traumatic brain injury Qualifiers: Encounter type: subsequent encounter
[2018-04-27] MEDS: Folic Acid 1 MG Tablet PO SCH (09:30)
[2018-04-28] MEDS: Carboxymethylcellulose 0.5% Opth Drops 15 ML Bottle EACH EYE SCH ×3 (06:08→23:20)
[2018-04-28] MEDS: Oral Hygiene Kit OROPHARYNG SCH ×3 (06:09→16:21)
--- NOTE | 2018-04-28 07:30 | P.PN ---
Subjective Interval history: Patient is stable. No significant change. Patient states the headache is the same. He is afebrile. Vital signs stable. Physical Exam Vital signs: Vital Signs 04/27/18 08:00 04/27/18 12:00 04/27/18 20:00 Temperature 98.4 F 97.5 F L 97.6 F Pulse Rate 85 86 Respiratory Rate 16 18 18 Blood Pressure 118/80 119/84 125/76 Pulse Oximetry 96 97 100 04/28/18 00:00 04/28/18 04:00 Temperature 97.7 F 98.1 F Pulse Rate 92 H 98 H Respiratory Rate 18 18 Blood Pressure 114/74 96/67 L Pulse Oximetry 97 98 Intake & Output 04/27/18 04/28/18 04/28/18 18:59 06:59 18:59 Intake Total 480 / 480 Balance 480 / 480 Weight 54.1 kg Intake: Oral 480 / 480 Other: # Voids 3 # Incontinent Voids 1 Date of Last Bowel Movement 04/26/18 04/26/18 # Bowel Movements 3 Narrative: GENERAL: This is a thin, frail, -Japanese male patient. Awake and alert lying in bed. Not in any distress. SKIN: Warm and dry. No generalized rash. HEENT: s/p right sided craniectomy. No bone flap over right parietal area. No sclera injection. No drainage. No nasal drainage. NECK: Trachea midline. Airway patent. CARDIOVASCULAR: Regular rate and rhythm without murmurs, gallops, or rubs. RESPIRATORY: No accessory muscle use. Breath sounds equal bilaterally. Poor effort, clear to auscultation anteriorly. GASTROINTESTINAL: Abdomen soft, non-tender, nondistended. PEG site C/D/I. MUSCULOSKELETAL: No cyanosis or edema. NEURO: Awake and alert. Moves right upper and lower extremity spontaneously. 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 Minimal toe wiggle appreciated on the left. Normal speech. PSYCHIATRIC: Calm and cooperative. Insight and judgement poor. - Urinary Catheter Management Indwelling Temp Sensing Catheter Cath placed during this visit: yes, but has since been removed by the nurse Reason for continuing: Not indwelling catheter Insertion date: 03/12/18 Insertion time: 05:30 Removal date: 03/25/18 Removal time: 18:00 Indwelling Urethral Catheter Cath placed during this visit: yes, but has since been removed by the nurse Reason for continuing: Decision to DC catheter Insertion date: 03/22/18 Insertion time: 17:30 Removal date: 03/25/18 Removal time: 18:00 Condom Cath placed during this visit: yes, but has since been removed by the nurse Reason for continuing: Not indwelling catheter Removal date: 03/25/18 Removal time: 18:00 Results - Labs CBC & Chem 7: 04/18/18 08:25 04/18/18 08:25 - Procedures PEG 7 -25 right decompressive craniectomy 03/22/18 with placement of ICP monitor by Dr. Chacko, ca'ed 03/23/18 03/22/18 Right frontotemporal parietal decompressive craniectomy and Duroplasty 03/22/18 Left frontal bur hole with placement of an intracranial pressure monitor Assessment and Plan - Assessment (1) Intracranial hemorrhage following injury Code(s): S06.309A - Unspecified focal traumatic brain injury with loss of consciousness of unspecified duration, initial encounter Status: Acute (2) Traumatic brain injury Code(s): S06.9X9A - Unspecified intracranial injury with loss of consciousness of unspecified duration, initial encounter Status: Acute (3) Fall Code(s): W19.XXXA - Unspecified fall, initial encounter Status: Chronic (4) Cocaine abuse Code(s): F14.10 - Cocaine abuse, uncomplicated Status: Chronic (5) ETOH abuse Code(s): F10.10 - Alcohol abuse, uncomplicated Status: Chronic (6) Dysphagia Code(s): R13.10 - Dysphagia, unspecified Status: Acute - Plan 62-year-old male admitted secondary to intracranial hemorrhage 04/28 no significant change. Persistent headache, recently started on Topamax, await until therapeutic. Patient is stable. Vital signs stable. Afebrile. 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 SAH bilat frontal lobes, right parietal, temporal. Right frontotemporal SDH status post emergency craniectomy for decompression for worsening midline shift right to left 2.1 cm s/p Fall, ?syncope Daily alcohol use/Cocaine abuse - s/p Right frontotemporal parietal decompressive craniectomy and Duroplasty by Dr. Chacko. 04/[address] Chacko who plans to place patient on the schedule for bone flap - repeat head CT 04/04 with improvement - Continue on Keppra - no seizure activity reported - Continue with PT/OT - PT recommends rehab at discharge - Seizure precautions Palliative care following, appreciate assistance. Per note, patient has improved tremendously. Feels he has capacity to make medical decisions with support of family. Recommended psych consult to assess capacity. Psychiatry consulted, appreciate assistance. - Dr. Narvaez following, appreciate assistance Headache repeat CT head 04/[address] head 04/26 shows stable exam with large right craniectomy defect and 5 mm midline shift, no hemorrhage CTA head negative -Neurology following, appreciate assistance. Started on Topamax 50mg BID for likely vascular component. Dysphagia s/p PEG tube placement 03/30/18 - ST re-evaluated and patient given puree diet with nectar thickened liquids. - Calorie count completed, inadequate intake. 04/20 TF resumed - Jevity 1.5 at 75 mls per hour 12 hours at night 7pm to 7am. 04/25 patient reevaluated by dietitian, recommends continued nighttime feeding and supplement Acute respiratory failure secondary to failure to protect airway-resolved extubated MRSA pneumonia, status post treatment with IV vancomycin and Rocephin Tobacco abuse Extubated 03/25/2018 - Continue as needed duo nebs - continue to monitor respiratory status - Supplemental oxygen as needed DVT prophylaxis SCDs No chemoprophylaxis anticoagulation due to recent intracranial bleed Code Status: FULL Discussed Condition With: patient, nursing staff, Dr. Constantino Discharge Planning: Difficult placement. No payor source. CM assisting with ongoing discharge plan. Plan for cranioplasty in the near future by Dr. Chacko. (2) Traumatic brain injury Qualifiers: Encounter type: subsequent encounter
[2018-04-28] MEDS: Sennosides Liq 8.8 MG/5 ML UDC NG/OG SCH ×2 (08:59→23:17)
[2018-04-28] MEDS: Topiramate 25 MG Tablet PO SCH ×2 (08:59→23:18)
[2018-04-28] MEDS: Folic Acid 1 MG Tablet PO SCH (08:59)
--- NOTE | 2018-04-28 20:04 | P.PNNS ---
Physical Exam Vital signs: Vital Signs 04/28/18 00:00 04/28/18 04:00 04/28/18 08:00 Temperature 97.7 F 98.1 F 98.1 F Pulse Rate 92 H 98 H 95 H Respiratory Rate 18 18 16 Blood Pressure 114/74 96/67 L 120/76 Pulse Oximetry 97 98 97 04/28/18 12:00 04/28/18 16:00 Temperature 98.1 F 97.6 F Pulse Rate 97 H 100 H Respiratory Rate 18 20 Blood Pressure 109/79 120/82 Pulse Oximetry 96 98 Intake & Output 04/28/18 04/28/18 04/29/18 06:59 18:59 06:59 Intake Total 1400 / 1400 Balance 1400 / 1400 Weight 54.1 kg Intake: Tube Feeding 1200 / 1200 Water Bolus Amount 200 / 200 Other: # Incontinent Voids 1 Date of Last Bowel Movement 04/26/18 - Urinary Catheter Management Indwelling Temp Sensing Catheter Cath placed during this visit: yes, but has since been removed by the nurse Reason for continuing: Not indwelling catheter Insertion date: 03/12/18 Insertion time: 05:30 Removal date: 03/25/18 Removal time: 18:00 Indwelling Urethral Catheter Cath placed during this visit: yes, but has since been removed by the nurse Reason for continuing: Decision to DC catheter Insertion date: 03/22/18 Insertion time: 17:30 Removal date: 03/25/18 Removal time: 18:00 Condom Cath placed during this visit: yes, but has since been removed by the nurse Reason for continuing: Not indwelling catheter Removal date: 03/25/18 Removal time: 18:00 Assessment and Plan - Plan Impression: 62 y/o male with increased right intracerebral edema with significant 2 cm midline shift, he underwent right decompressive craniectomy 03/22/18 with placement of ICP monitor by Dr. Chacko, ky'ed 03/23/18 right bone flap well decompressed, doing well neurologically Plan: will plan for cranioplasty on schedule for wednesday05/04/18 preop orders to be placed wednesday and consents to be placed in chart keep NPO midnight 05/03/18
[2018-04-29] MEDS: Oral Hygiene Kit OROPHARYNG SCH ×3 (00:17→22:57)
--- NOTE | 2018-04-29 07:27 | P.PN ---
Subjective Interval history: Patient is resting. He is stable. No significant change. Discussed with nursing staff, no acute events noted. Physical Exam Vital signs: Vital Signs 04/28/18 08:00 04/28/18 12:00 04/28/18 16:00 Temperature 98.1 F 98.1 F 97.6 F Pulse Rate 95 H 97 H 100 H Respiratory Rate 16 18 20 Blood Pressure 120/76 109/79 120/82 Pulse Oximetry 97 96 98 04/29/18 00:00 04/29/18 04:00 Temperature 97.5 F L 97.7 F Pulse Rate 91 H 85 Respiratory Rate 18 18 Blood Pressure 112/75 120/85 Pulse Oximetry 95 97 Intake & Output 04/28/18 04/29/18 04/29/18 18:59 06:59 18:59 Intake Total 1400 / 1400 Output Total 800 / 800 Balance 1400 / 1400 -800 / -800 Weight 54.1 kg Intake: Tube Feeding 1200 / 1200 Water Bolus Amount 200 / 200 Output: Urine 800 / 800 Other: Date of Last Bowel Movement 04/29/18 Narrative: GENERAL: This is a thin, frail, -[place] male patient. Not in any distress. SKIN: Warm and dry. No generalized rash. HEENT: s/p right sided craniectomy. No bone flap over right parietal area. No sclera injection. No drainage. No nasal drainage. NECK: Trachea midline. Airway patent. CARDIOVASCULAR: Regular rate and rhythm without murmurs, gallops, or rubs. RESPIRATORY: No accessory muscle use. Breath sounds equal bilaterally. Poor effort, clear to auscultation anteriorly. GASTROINTESTINAL: Abdomen soft, non-tender, nondistended. PEG site C/D/I. MUSCULOSKELETAL: No cyanosis or edema. NEURO: Awake and alert. Moves right upper and lower extremity spontaneously. 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 Minimal toe wiggle appreciated on the left. Normal speech. PSYCHIATRIC: Calm and cooperative. Insight and judgement poor. - Urinary Catheter Management Indwelling Temp Sensing Catheter Cath placed during this visit: yes, but has since been removed by the nurse Reason for continuing: Not indwelling catheter Insertion date: 03/12/18 Insertion time: 05:30 Removal date: 03/25/18 Removal time: 18:00 Indwelling Urethral Catheter Cath placed during this visit: yes, but has since been removed by the nurse Reason for continuing: Decision to DC catheter Insertion date: 03/22/18 Insertion time: 17:30 Removal date: 03/25/18 Removal time: 18:00 Condom Cath placed during this visit: yes, but has since been removed by the nurse Reason for continuing: Not indwelling catheter Removal date: 03/25/18 Removal time: 18:00 Results - Labs CBC & Chem 7: 04/18/18 08:25 04/18/18 08:25 - Procedures PEG 7 right decompressive craniectomy 03/22/18 with placement of ICP monitor by Dr. Chacko, wi'ed 03/23/18 03/22/18 Right frontotemporal parietal decompressive craniectomy and Duroplasty 03/22/18 Left frontal bur hole with placement of an intracranial pressure monitor Assessment and Plan - Assessment (1) Intracranial hemorrhage following injury Code(s): S06.309A - Unspecified focal traumatic brain injury with loss of consciousness of unspecified duration, initial encounter Status: Acute (2) Traumatic brain injury Code(s): S06.9X9A - Unspecified intracranial injury with loss of consciousness of unspecified duration, initial encounter Status: Acute (3) Fall Code(s): W19.XXXA - Unspecified fall, initial encounter Status: Chronic (4) Cocaine abuse Code(s): F14.10 - Cocaine abuse, uncomplicated Status: Chronic (5) ETOH abuse Code(s): F10.10 - Alcohol abuse, uncomplicated Status: Chronic (6) Dysphagia Code(s): R13.10 - Dysphagia, unspecified Status: Acute - Plan 62-year-old male admitted secondary to intracranial hemorrhage 04/29 patient remains stable. No significant change. Vital signs stable. Patient is afebrile. DW nursing staff, no acute events overnight. 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 SAH bilat frontal lobes, right parietal, temporal. Right frontotemporal SDH status post emergency craniectomy for decompression for worsening midline shift right to left 2.1 cm s/p Fall, ?syncope Daily alcohol use/Cocaine abuse - s/p Right frontotemporal parietal decompressive craniectomy and Duroplasty by Dr. Chacko. Plan for cranioplasty on 05/04/18. - repeat head CT 04/04 with improvement - Continue on Keppra - no seizure activity reported - Continue with PT/OT - PT recommends rehab at discharge - Seizure precautions Palliative care following, appreciate assistance. Per note, patient has improved tremendously. Feels he has capacity to make medical decisions with support of family. Recommended psych consult to assess capacity. Psychiatry consulted, appreciate assistance. - Dr. Narvaez following, appreciate assistance Headache repeat CT head 04/[address] head 04/26 shows stable exam with large right craniectomy defect and 5 mm midline shift, no hemorrhage CTA head negative -Neurology following, appreciate assistance. Started on Topamax 50mg BID for likely vascular component. Dysphagia s/p PEG tube placement 03/30/18 - ST re-evaluated and patient given puree diet with nectar thickened liquids. - Calorie count completed, inadequate intake. 04/20 TF resumed - Jevity 1.5 at 75 mls per hour 12 hours at night 7pm to 7am. 04/25 patient reevaluated by dietitian, recommends continued nighttime feeding and supplement Acute respiratory failure secondary to failure to protect airway-resolved extubated MRSA pneumonia, status post treatment with IV vancomycin and Rocephin Tobacco abuse Extubated 03/25/2018 - Continue as needed duo nebs - continue to monitor respiratory status - Supplemental oxygen as needed DVT prophylaxis SCDs No chemoprophylaxis anticoagulation due to recent intracranial bleed Code Status: FULL Discussed Condition With: patient, nursing staff, Dr. Constantino Discharge Planning: Difficult placement. No payor source. CM assisting with ongoing discharge plan. Plan for cranioplasty in the near future by Dr. Chacko. (2) Traumatic brain injury Qualifiers: Encounter type: subsequent encounter
[2018-04-29] MEDS: Sennosides Liq 8.8 MG/5 ML UDC NG/OG SCH ×2 (08:50→22:58)
[2018-04-29] MEDS: Folic Acid 1 MG Tablet PO SCH (08:50)
[2018-04-29] MEDS: Topiramate 25 MG Tablet PO SCH ×2 (08:50→22:59)
[2018-04-29] MEDS: Carboxymethylcellulose 0.5% Opth Drops 15 ML Bottle EACH EYE SCH ×2 (13:29→22:56)
[2018-04-30] MEDS: Oral Hygiene Kit OROPHARYNG SCH ×4 (04:48→15:16)
[2018-04-30] MEDS: Carboxymethylcellulose 0.5% Opth Drops 15 ML Bottle EACH EYE SCH ×3 (05:56→23:23)
[2018-04-30 07:19] LABS: Baso % (Auto) 0.6 % (0.0-2.0); Eos # (Auto) 0.1 th/mm3 (0.0-0.4); Hematocrit 35.1 % (39.0-51.0); Hemoglobin 11.7 gm/dL (13.0-17.0); Lymph # (Auto) 1.2 th/mm3 (1.0-4.8); Mean Corpuscular HGB Conc 33.3 % (32.0-36.0); Mean Corpuscular Hemoglobin 30.9 pg (27.0-34.0); Mean Corpuscular Volume 92.8 fL (80.0-100.0); Mean Platelet Volume 7.3 fL (7.0-11.0); Mono # (Auto) 0.4 th/mm3 (0.0-0.9); Mono % (Auto) 12.9 % (0.0-8.0); Neut # (Auto) 1.4 th/mm3 (1.8-7.7); Neut % (Auto) 44.5 % (16.0-70.0); Platelet Count 243 th/mm3 (150-450); Red Blood Count 3.78 mil/mm3 (4.50-5.90); Red Cell Distribution Width 14.1 % (11.6-17.2); White Blood Count 3.1 th/mm3 (4.0-11.0)
[2018-04-30 07:54] LABS: Anion Gap 7 meq/L (5-15); Blood Urea Nitrogen 23 mg/dL (7-18); Calcium 8.7 mg/dL (8.5-10.1); Carbon Dioxide 29.3 meq/L (21.0-32.0); Chloride 106 meq/L (98-107); Glomerular Filtration Rate Greater Than 89 mL/min (>89); Glucose,Random 91 mg/dL (74-106); Potassium 3.9 meq/L (3.5-5.1); Sodium 142 meq/L (136-145)
--- NOTE | 2018-04-30 10:46 | P.PNIM ---
Subjective Interval history: Patient seen and examined this morning. Noncommunicative. Not following any commands. Would open his eyes. Temperature 95.7, pulse 82, respiratory rate 16 , blood pressure 135/79, pulse ox 98 Physical Exam Vital signs: Vital Signs 04/29/18 16:00 04/29/18 20:00 04/30/18 00:00 Temperature 97.8 F 97.2 F L 97.3 F L Pulse Rate 94 H 85 91 H Respiratory Rate 14 16 16 Blood Pressure 128/88 121/81 119/77 Pulse Oximetry 98 98 97 04/30/18 04:00 04/30/18 08:00 Temperature 97.2 F L 95.7 F L Pulse Rate 90 82 Respiratory Rate 16 16 Blood Pressure 117/74 135/79 Pulse Oximetry 97 98 Intake & Output 04/29/18 04/30/18 04/30/18 18:59 06:59 18:59 Weight 53.8 kg Other: # Incontinent Voids 1 1 Date of Last Bowel Movement 04/29/18 # Bowel Movements 1 Narrative: GENERAL: This is a thin, frail, -[place] male patient. Not in any distress. SKIN: Warm and dry. No generalized rash. HEENT: s/p right sided craniectomy. No bone flap over right parietal area. No sclera injection. No drainage. No nasal drainage. NECK: Trachea midline. Airway patent. CARDIOVASCULAR: Regular rate and rhythm without murmurs, gallops, or rubs. RESPIRATORY: No accessory muscle use. Breath sounds equal bilaterally. Poor effort, clear to auscultation anteriorly. GASTROINTESTINAL: Abdomen soft, non-tender, nondistended. PEG site C/D/I. MUSCULOSKELETAL: No cyanosis or edema. NEURO: Awake and alert. Moves right upper and lower extremity spontaneously. 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 Minimal toe wiggle appreciated on the left. Normal speech. PSYCHIATRIC: Calm and cooperative. Insight and judgement poor. - Urinary Catheter Management Indwelling Temp Sensing Catheter Cath placed during this visit: yes, but has since been removed by the nurse Reason for continuing: Not indwelling catheter Insertion date: 03/12/18 Insertion time: 05:30 Removal date: 03/25/18 Removal time: 18:00 Indwelling Urethral Catheter Cath placed during this visit: yes, but has since been removed by the nurse Reason for continuing: Decision to DC catheter Insertion date: 03/22/18 Insertion time: 17:30 Removal date: 03/25/18 Removal time: 18:00 Condom Cath placed during this visit: yes, but has since been removed by the nurse Reason for continuing: Not indwelling catheter Removal date: 03/25/18 Removal time: 18:00 Results - Labs CBC & Chem 7: 04/30/18 06:42 04/30/18 06:42 Laboratory Results - last 24 hr 04/30/18 04/30/18 06:42 06:42 WBC 3.1 L RBC 3.78 L Hgb 11.7 L Hct 35.1 L MCV 92.8 MCH 30.9 MCHC 33.3 RDW 14.1 Plt Count 243 MPV 7.3 Neut % (Auto) 44.5 Lymph % (Auto) 38.0 Stark % (Auto) 12.9 H Eos % (Auto) 4.0 Baso % (Auto) 0.6 Neut # (Auto) 1.4 L Lymph # (Auto) 1.2 Stark # (Auto) 0.4 Eos # (Auto) 0.1 Baso # (Auto) 0.0 WBC Differential . Differential Comment Auto diff final Sodium 142 Potassium 3.9 Chloride 106 Carbon Dioxide 29.3 Anion Gap 7 BUN 23 H Creatinine 0.74 Estimated GFR Greater than 89 Random Glucose 91 Calcium 8.7 - Imaging Head CT 03/08/18 11:20 CONCLUSION: 1. Large area of evolving hematoma right frontal lobe with increasing vasogenic edema and [id number] midline shift now 2.2 cm. This is more prominent on current study. 2. Small right subdural hematoma measures 5 mm not significantly changed. Abdomen X-Ray 03/09/18 00:00 CONCLUSION: Adequate placement of a nasogastric tube Chest X-Ray 03/09/18 17:43 CONCLUSION: NG and left central line in good position. No acute findings. Chest X-Ray 03/11/18 00:00 CONCLUSION: 1. ET tube in good position. 2. No evidence of pneumothorax. Head CT 03/11/18 00:00 CONCLUSION: 1. No significant change in the large intraparenchymal hemorrhage surrounded by edema involving most of the right frontal lobe. 2. No significant change with the 4 mm right subdural hematoma. 3. There continues to be mass effect and midline shift to the left by approximately 1.1 cm. Chest X-Ray 03/11/18 13:00 CONCLUSION: Support apparatus as above. No acute findings. Abdomen X-Ray 03/12/18 00:00 CONCLUSION: Gaseous distention of bowel loops, not significantly changed. Abdomen/Pelvis CT 03/13/18 00:00 CONCLUSION: 1. Moderate constipation with diffuse ileus. Rectum distended to 8 cm with stool. No small bowel obstruction. No significant free fluid. No free air. 2. Dodge catheter in bladder. NG coiled in stomach. Trace right pleural effusion. Chest X-Ray 03/13/18 12:09 CONCLUSION: No acute cardiopulmonary disease identified. Abdomen X-Ray 03/14/18 06:00 CONCLUSION: 1. Findings consistent with colonic ileus. Chest X-Ray 03/14/18 06:00 CONCLUSION: 1. Stable tubes and lines. 2. No acute abnormality or significant interval change. Head CT 03/15/18 00:00 CONCLUSION: 1. Evolving right frontal lobe parenchymal hemorrhage with cerebral edema and worsening leftward midline shift. 2. Minimal left frontal and parietal subarachnoid blood without associated mass effect. Abdomen X-Ray 03/17/18 08:00 CONCLUSION: Reduction in the gaseous distention of the colon. Head CT 03/21/18 00:00 CONCLUSION: 1. There has been an interval increase in the amount of [id number] midline shift in the frontal region, now measuring 2.1 cm. 2. Involving right frontal blood products with further decrease in the density of the right frontal hematoma. Chest X-Ray 03/21/18 11:20 CONCLUSION: Under inflation with atelectasis at the lung bases. Otherwise, no acute finding is identified. Chest X-Ray 03/22/18 10:19 CONCLUSION: No acute cardiopulmonary disease. Chest X-Ray 03/25/18 06:00 CONCLUSION: Lungs remain clear. No significant change line/tube positions as above. Chest X-Ray 03/26/18 06:00 CONCLUSION: Endotracheal tube and nasogastric tube no longer seen. No acute cardiopulmonary disease identified. Chest X-Ray 03/28/18 06:00 CONCLUSION: 1. Lungs are clear. 2. Interval placement of a nasogastric tube with the tip projecting over the expected location of the gastric fundus Head CT 04/04/18 00:00 CONCLUSION: 1. The patient's exam is significantly improved compared to prior dated 2017. There is significant interval reduction in the amount of edema involving the right frontal cortex. No new areas of hemorrhage are identified. . Head CT 04/26/18 00:00 CONCLUSION: 1. Stable exam with large right craniectomy defect and 5 mm of midline shift. No hemorrhage appreciated. . Head CTA 04/26/18 00:00 CONCLUSION: 1. Negative CTA Head. - Procedures PEG right decompressive craniectomy 03/22/18 with placement of ICP monitor by Dr. Chacko, [facility] 03/23/18 03/22/18 Right frontotemporal parietal decompressive craniectomy and Duroplasty 03/22/18 Left frontal bur hole with placement of an intracranial pressure monitor Assessment and Plan - Assessment (1) Intracranial hemorrhage following injury Code(s): S06.309A - Unspecified focal traumatic brain injury with loss of consciousness of unspecified duration, initial encounter Status: Acute (2) Traumatic brain injury Code(s): S06.9X9A - Unspecified intracranial injury with loss of consciousness of unspecified duration, initial encounter Status: Acute (3) Fall Code(s): W19.XXXA - Unspecified fall, initial encounter Status: Chronic (4) Cocaine abuse Code(s): F14.10 - Cocaine abuse, uncomplicated Status: Chronic (5) ETOH abuse Code(s): F10.10 - Alcohol abuse, uncomplicated Status: Chronic (6) Dysphagia Code(s): R13.10 - Dysphagia, unspecified Status: Acute - Plan 62-year-old male admitted secondary to intracranial hemorrhage 04/30 patient remains stable. No significant change. Vital signs stable. Patient is afebrile. 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 SAH bilat frontal lobes, right parietal, temporal. Right frontotemporal SDH status post emergency craniectomy for decompression for worsening midline shift right to left 2.1 cm s/p Fall, ?syncope Daily alcohol use/Cocaine abuse - s/p Right frontotemporal parietal decompressive craniectomy and Duroplasty by Dr. Chacko. Plan for cranioplasty on 05/04/18. - repeat head CT 04/04 with improvement - Continue on Keppra - no seizure activity reported - Continue with PT/OT - PT recommends rehab at discharge - Seizure precautions Palliative care following, appreciate assistance. Per note, patient has improved tremendously. Feels he has capacity to make medical decisions with support of family. Recommended psych consult to assess capacity. Psychiatry consulted, appreciate assistance. - Dr. Narvaez following, appreciate assistance Headache repeat CT head 04/[address] head 04/26 shows stable exam with large right craniectomy defect and 5 mm midline shift, no hemorrhage CTA head negative -Neurology following, appreciate assistance. Started on Topamax 50mg BID for likely vascular component. Dysphagia s/p PEG tube placement 03/30/18 - ST re-evaluated and patient given puree diet with nectar thickened liquids. - Calorie count completed, inadequate intake. 04/20 TF resumed - Jevity 1.5 at 75 mls per hour 12 hours at night 7pm to 7am. 04/25 patient reevaluated by dietitian, recommends continued nighttime feeding and supplement Acute respiratory failure secondary to failure to protect airway-resolved extubated MRSA pneumonia, status post treatment with IV vancomycin and Rocephin Tobacco abuse Extubated 03/25/2018 - Continue as needed duo nebs - continue to monitor respiratory status - Supplemental oxygen as needed DVT prophylaxis SCDs No chemoprophylaxis anticoagulation due to recent intracranial bleed Code Status: Full Discharge Planning: Difficult placement. No payor source. CM assisting with ongoing discharge plan. Plan for cranioplasty in the near future by Dr. Chacko. (2) Traumatic brain injury Qualifiers: Encounter type: subsequent encounter
[2018-04-30] MEDS: Folic Acid 1 MG Tablet PO SCH (10:58)
[2018-04-30] MEDS: Topiramate 25 MG Tablet PO SCH ×2 (10:58→23:23)
[2018-04-30] MEDS: Sennosides Liq 8.8 MG/5 ML UDC NG/OG SCH ×2 (11:00→23:22)
[2018-05-01] MEDS: Oral Hygiene Kit OROPHARYNG SCH ×4 (01:23→16:09)
[2018-05-01 07:34] LABS: Hematocrit 36.1 % (39.0-51.0); Hemoglobin 11.7 gm/dL (13.0-17.0); Mean Corpuscular HGB Conc 32.5 % (32.0-36.0); Mean Corpuscular Hemoglobin 30.7 pg (27.0-34.0); Mean Corpuscular Volume 94.2 fL (80.0-100.0); Mean Platelet Volume 7.4 fL (7.0-11.0); Platelet Count 237 th/mm3 (150-450); Red Blood Count 3.83 mil/mm3 (4.50-5.90); Red Cell Distribution Width 14.1 % (11.6-17.2); White Blood Count 3.1 th/mm3 (4.0-11.0)
[2018-05-01 08:00] LABS: Anion Gap 8 meq/L (5-15); Blood Urea Nitrogen 19 mg/dL (7-18); Calcium 8.5 mg/dL (8.5-10.1); Carbon Dioxide 27.9 meq/L (21.0-32.0); Chloride 107 meq/L (98-107); Glomerular Filtration Rate Greater Than 89 mL/min (>89); Glucose,Random 113 mg/dL (74-106); Potassium 3.8 meq/L (3.5-5.1); Sodium 143 meq/L (136-145)
[2018-05-01] MEDS: Carboxymethylcellulose 0.5% Opth Drops 15 ML Bottle EACH EYE SCH ×3 (09:44→21:16)
[2018-05-01] MEDS: Topiramate 25 MG Tablet PO SCH ×2 (09:46→21:15)
[2018-05-01] MEDS: Folic Acid 1 MG Tablet PO SCH (09:46)
[2018-05-01] MEDS: Sennosides Liq 8.8 MG/5 ML UDC NG/OG SCH ×2 (09:47→21:15)
--- NOTE | 2018-05-01 10:53 | P.PNIM ---
Subjective Interval history: Patient seen and examined this morning. Afebrile vital signs stable. Patient is very upset today as he would like to have his procedure for his head performed as soon as possible to help with his headache. He is very agitated and upset at this time. Procedure is scheduled for Wednesday the , however he wants it done today. Explained to him that it is unlikely to be performed today. Physical Exam Vital signs: Vital Signs 04/30/18 12:00 04/30/18 16:00 04/30/18 20:00 Temperature 97.6 F 97.5 F L 98.2 F Pulse Rate 87 81 88 Respiratory Rate 16 16 18 Blood Pressure 121/75 151/84 H 124/79 Pulse Oximetry 96 97 100 05/01/18 00:00 05/01/18 04:00 05/01/18 08:00 Temperature 98 F 98.1 F 97.8 F Pulse Rate 86 82 81 Respiratory Rate 18 18 16 Blood Pressure 128/76 122/78 108/65 Pulse Oximetry 100 100 98 Intake & Output 04/30/18 05/01/18 05/01/18 18:59 06:59 18:59 Intake Total 2784 / 2784 Balance 2784 / 2784 Weight 53.8 kg Intake: Tube Feeding 2384 / 2384 Tube Irrigant 400 / 400 Other: Date of Last Bowel Movement 05/01/18 Narrative: GENERAL: This is a thin, frail, -[place]inames[place] male patient. Not in any distress. SKIN: Warm and dry. No generalized rash. HEENT: s/p right sided craniectomy. No bone flap over right parietal area. No sclera injection. No drainage. No nasal drainage. NECK: Trachea midline. Airway patent. CARDIOVASCULAR: Regular rate and rhythm without murmurs, gallops, or rubs. RESPIRATORY: No accessory muscle use. Breath sounds equal bilaterally. Poor effort, clear to auscultation anteriorly. GASTROINTESTINAL: Abdomen soft, non-tender, nondistended. PEG site C/D/I. MUSCULOSKELETAL: No cyanosis or edema. NEURO: Awake and alert. Moves right upper and lower extremity spontaneously. 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 Minimal toe wiggle appreciated on the left. Normal speech. PSYCHIATRIC: Agitated and angry at this time. Insight and judgement poor. - Urinary Catheter Management Indwelling Temp Sensing Catheter Cath placed during this visit: yes, but has since been removed by the nurse Reason for continuing: Not indwelling catheter Insertion date: 03/12/18 Insertion time: 05:30 Removal date: 03/25/18 Removal time: 18:00 Indwelling Urethral Catheter Cath placed during this visit: yes, but has since been removed by the nurse Reason for continuing: Decision to DC catheter Insertion date: 03/22/18 Insertion time: 17:30 Removal date: 03/25/18 Removal time: 18:00 Condom Cath placed during this visit: yes, but has since been removed by the nurse Reason for continuing: Not indwelling catheter Removal date: 03/25/18 Removal time: 18:00 Results - Labs CBC & Chem 7: 05/01/18 06:38 05/01/18 06:38 Laboratory Results - last 24 hr 05/01/18 05/01/18 06:38 06:38 WBC 3.1 L RBC 3.83 L Hgb 11.7 L Hct 36.1 L MCV 94.2 MCH 30.7 MCHC 32.5 RDW 14.1 Plt Count 237 MPV 7.4 Sodium 143 Potassium 3.8 Chloride 107 Carbon Dioxide 27.9 Anion Gap 8 BUN 19 H Creatinine 0.65 Estimated GFR Greater than 89 Random Glucose 113 H Calcium 8.5 - Procedures PEG 7 -25 right decompressive craniectomy 03/22/18 with placement of ICP monitor by Dr. Chacko, ma'ed 03/23/18 03/22/18 Right frontotemporal parietal decompressive craniectomy and Duroplasty 03/22/18 Left frontal bur hole with placement of an intracranial pressure monitor Assessment and Plan - Assessment (1) Intracranial hemorrhage following injury Code(s): S06.309A - Unspecified focal traumatic brain injury with loss of consciousness of unspecified duration, initial encounter Status: Acute (2) Traumatic brain injury Code(s): S06.9X9A - Unspecified intracranial injury with loss of consciousness of unspecified duration, initial encounter Status: Acute (3) Fall Code(s): W19.XXXA - Unspecified fall, initial encounter Status: Chronic (4) Cocaine abuse Code(s): F14.10 - Cocaine abuse, uncomplicated Status: Chronic (5) ETOH abuse Code(s): F10.10 - Alcohol abuse, uncomplicated Status: Chronic (6) Dysphagia Code(s): R13.10 - Dysphagia, unspecified Status: Acute - Plan 62-year-old male admitted secondary to intracranial hemorrhage 05/01 patient remains stable. No significant change. Vital signs stable. Patient is afebrile. 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 SAH bilat frontal lobes, right parietal, temporal. Right frontotemporal SDH status post emergency craniectomy for decompression for worsening midline shift right to left 2.1 cm s/p Fall, ?syncope Daily alcohol use/Cocaine abuse - s/p Right frontotemporal parietal decompressive craniectomy and Duroplasty by Dr. Chacko. Plan for cranioplasty on 05/04/18. - repeat head CT 04/04 with improvement - Continue on Keppra - no seizure activity reported - Continue with PT/OT - PT recommends rehab at discharge - Seizure precautions Palliative care following, appreciate assistance. Per note, patient has improved tremendously. Feels he has capacity to make medical decisions with support of family. Recommended psych consult to assess capacity. Psychiatry consulted, appreciate assistance. - Dr. Narvaez following, appreciate assistance Headache repeat CT head 04/[address] head 04/26 shows stable exam with large right craniectomy defect and 5 mm midline shift, no hemorrhage CTA head negative -Neurology following, appreciate assistance. Started on Topamax 50mg BID for likely vascular component. Dysphagia s/p PEG tube placement 03/30/18 - ST re-evaluated and patient given puree diet with nectar thickened liquids. - Calorie count completed, inadequate intake. 04/20 TF resumed - Jevity 1.5 at 75 mls per hour 12 hours at night 7pm to 7am. 04/25 patient reevaluated by dietitian, recommends continued nighttime feeding and supplement Acute respiratory failure secondary to failure to protect airway-resolved extubated MRSA pneumonia, status post treatment with IV vancomycin and Rocephin Tobacco abuse Extubated 03/25/2018 - Continue as needed duo nebs - continue to monitor respiratory status - Supplemental oxygen as needed DVT prophylaxis SCDs No chemoprophylaxis anticoagulation due to recent intracranial bleed Code Status: Full code Discharge Planning: Difficult placement. No payor source. CM assisting with ongoing discharge plan. Plan for cranioplasty on 05/04/[address] Chacko. (2) Traumatic brain injury Qualifiers: Encounter type: subsequent encounter
[2018-05-02] MEDS: Oral Hygiene Kit OROPHARYNG SCH ×3 (05:38→16:30)
[2018-05-02] MEDS: Carboxymethylcellulose 0.5% Opth Drops 15 ML Bottle EACH EYE SCH ×3 (05:39→22:19)
[2018-05-02] MEDS: Sennosides Liq 8.8 MG/5 ML UDC NG/OG SCH ×2 (09:40→22:18)
[2018-05-02] MEDS: Topiramate 25 MG Tablet PO SCH ×2 (09:40→22:17)
[2018-05-02] MEDS: Folic Acid 1 MG Tablet PO SCH (09:40)
--- NOTE | 2018-05-02 13:00 | P.PNIM ---
Subjective Interval history: Patient seen and examined this morning. Afebrile vital signs stable. Patient is lying in bed comfortably and has no complaints at this time. He knows that his surgery is tentatively scheduled for Wednesday. He is hopeful to have the surgery performed on that day. Physical Exam Vital signs: Vital Signs 05/01/18 16:00 05/01/18 20:00 05/02/18 00:00 Temperature 97.4 F L 98 F 98.2 F Pulse Rate 81 80 77 Respiratory Rate 14 18 18 Blood Pressure 130/81 130/78 127/75 Pulse Oximetry 97 99 98 05/02/18 04:00 05/02/18 08:00 05/02/18 12:00 Temperature 97.7 F 97.6 F 98.2 F Pulse Rate 80 88 89 Respiratory Rate 18 18 16 Blood Pressure 130/75 131/93 H 126/81 Pulse Oximetry 97 97 99 Intake & Output 05/01/18 05/02/18 05/02/18 18:59 06:59 18:59 Intake Total 1750 / 1750 Balance 1750 / 1750 Weight 53.8 kg Intake: Tube Feeding 1550 / 1550 Water Bolus Amount 200 / 200 Other: Date of Last Bowel Movement 05/01/18 05/02/18 # Bowel Movements 2 Narrative: GENERAL: This is a thin, frail, -German male patient. Not in any distress. SKIN: Warm and dry. No generalized rash. HEENT: s/p right sided craniectomy. No bone flap over right parietal area. No sclera injection. No drainage. No nasal drainage. NECK: Trachea midline. Airway patent. CARDIOVASCULAR: Regular rate and rhythm without murmurs, gallops, or rubs. RESPIRATORY: No accessory muscle use. Breath sounds equal bilaterally. Poor effort, clear to auscultation anteriorly. GASTROINTESTINAL: Abdomen soft, non-tender, nondistended. PEG site C/D/I. MUSCULOSKELETAL: No cyanosis or edema. NEURO: Awake and alert. Moves right upper and lower extremity spontaneously. Normal speech. PSYCHIATRIC: Agitated and angry at this time. Insight and judgement poor. - Urinary Catheter Management Indwelling Temp Sensing Catheter Cath placed during this visit: yes, but has since been removed by the nurse Reason for continuing: Not indwelling catheter Insertion date: 03/12/18 Insertion time: 05:30 Removal date: 03/25/18 Removal time: 18:00 Indwelling Urethral Catheter Cath placed during this visit: yes, but has since been removed by the nurse Reason for continuing: Decision to DC catheter Insertion date: 03/22/18 Insertion time: 17:30 Removal date: 03/25/18 Removal time: 18:00 Condom Cath placed during this visit: yes, but has since been removed by the nurse Reason for continuing: Not indwelling catheter Removal date: 03/25/18 Removal time: 18:00 Results - Labs CBC & Chem 7: 05/01/18 06:38 05/01/18 06:38 - Procedures PEG 7 - right decompressive craniectomy 03/22/18 with placement of ICP monitor by Dr. Chacko, wy'ed 03/23/18 03/22/18 Right frontotemporal parietal decompressive craniectomy and Duroplasty 03/22/18 Left frontal bur hole with placement of an intracranial pressure monitor Assessment and Plan - Assessment (1) Intracranial hemorrhage following injury Code(s): S06.309A - Unspecified focal traumatic brain injury with loss of consciousness of unspecified duration, initial encounter Status: Acute (2) Traumatic brain injury Code(s): S06.9X9A - Unspecified intracranial injury with loss of consciousness of unspecified duration, initial encounter Status: Acute (3) Fall Code(s): W19.XXXA - Unspecified fall, initial encounter Status: Chronic (4) Cocaine abuse Code(s): F14.10 - Cocaine abuse, uncomplicated Status: Chronic (5) ETOH abuse Code(s): F10.10 - Alcohol abuse, uncomplicated Status: Chronic (6) Dysphagia Code(s): R13.10 - Dysphagia, unspecified Status: Acute - Plan 62-year-old male admitted secondary to intracranial hemorrhage 05/02 patient remains stable. No significant change. Vital signs stable. Patient is afebrile. 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 SAH bilat frontal lobes, right parietal, temporal. Right frontotemporal SDH status post emergency craniectomy for decompression for worsening midline shift right to left 2.1 cm s/p Fall, ?syncope Daily alcohol use/Cocaine abuse - s/p Right frontotemporal parietal decompressive craniectomy and Duroplasty by Dr. Chacko. Plan for cranioplasty on 05/04/18. - repeat head CT 04/04 with improvement - Continue on Keppra - no seizure activity reported - Continue with PT/OT - PT recommends rehab at discharge - Seizure precautions Palliative care following, appreciate assistance. Per note, patient has improved tremendously. Feels he has capacity to make medical decisions with support of family. Recommended psych consult to assess capacity. Psychiatry consulted, appreciate assistance. - Dr. Narvaez following, appreciate assistance Headache repeat CT head 04/[address] head 04/26 shows stable exam with large right craniectomy defect and 5 mm midline shift, no hemorrhage CTA head negative -Neurology following, appreciate assistance. Started on Topamax 50mg BID for likely vascular component. Dysphagia s/p PEG tube placement 03/30/18 - ST re-evaluated and patient given puree diet with nectar thickened liquids. - Calorie count completed, inadequate intake. 04/20 TF resumed - Jevity 1.5 at 75 mls per hour 12 hours at night 7pm to 7am. 04/25 patient reevaluated by dietitian, recommends continued nighttime feeding and supplement Acute respiratory failure secondary to failure to protect airway-resolved extubated MRSA pneumonia, status post treatment with IV vancomycin and Rocephin Tobacco abuse Extubated 03/25/2018 - Continue as needed duo nebs - continue to monitor respiratory status - Supplemental oxygen as needed DVT prophylaxis SCDs No chemoprophylaxis anticoagulation due to recent intracranial bleed Code Status: Full code Discharge Planning: Difficult placement. No payor source. CM assisting with ongoing discharge plan. Plan for cranioplasty on 05/04/[address] Chacko. (2) Traumatic brain injury Qualifiers: Encounter type: subsequent encounter
--- NOTE | 2018-05-02 16:52 | P.DIET ---
Nutritional Evaluation Type of nutrition evaluation: follow-up Nutrition consult regarding: Tube Feeding Nutrition screening: [facility] [place] Subject[place] Subjective Comments: He is drinking the Ensure Enlive sometimes and likes the Ensure Pudding. He eats ~50% at best. Headaches interfere with intake at times. Objective - Diagnosis ICH, SAH, Syncope - Objective % IBW: 87 (IBW = 166#) Body Weight Used for Calculations: Actual (65.4 kg) Energy Needs - Lower Range (kCal/kg): 28 Energy Needs - Upper Range (kCal/kg): 33 Lower Limit kCal/kg (kCals): 1,831 Upper Limit kCal/kg (kCals): 2,158 Lower Limit Protein Factor (Grams per Kg): 1.2 Upper Limit Protein Factor (Grams per Kg): 1.5 Lower Protein Needs (Protein): 79 Upper Protein Needs (Protein): 98 Fluid Factor (ml/kg): 28 Estimated Fluid Needs (ml): 1,831 Dietitian Reviewed in Medical Record: Current diet, Curent medications, Intake & Output, Labs, Medical history, Tube feeding, Wound/DTI Diet Order: Pureed, Honey Thickened Liquids Speech Therapy Recommendations: Yes (pureed, nectar thickened liquids) Objective Comments: PMH: COPD, Asthma, tobacco abuse, daily ETOH use 03/22 R front temporal parietal decompressive craniectomy Integumentary: coccyx pressure injury PEG placement 03/30/18 Meds Include: Keppra, Norvasc, Catapres, Lactulose, Theragran, Thiamine, Folic Acid Feeding - Current Tube Feeding Tube Feeding Product: Jevity 1.5 Tube Feeding Rate: 75 (mls/hr x 12 hours) Tube Feeding Route: gastrostomy Current kCals Provided by Tube Feedin,350 Current Protein Provided by Tube Feeding (gPRO): 57 Current Free H2O Provided (m/l): 1,003 - Current PO Supplement Current Supplement: Ensure Enlive Current Frequency of Supplement: Three times a day Current kCals Provided by Supplement: 350 Current Protein Provided by Supplement: 20 Supplement Comments: plus Ensure Pudding(= 170 kcal and 4g protein per serving) Assessment Assessment: Pt was extubated on 03/25 and PEG tube placed 03/30. Current diet is pureed with nectar thickened liquids and Ensure Enlive and Ensure Pudding added. CBW is 53.8 kg which indicates ~26# weight loss since admission. Recommend continue night time TFing to supplement po intake to prevent further nutritional compromise. Recommend continue Jevity 1.5 @ 75 mls/hr from 7pm -7am to provide 1350 kcals and 57 gms protein. Cranioplasty is planned for this week. Will repeat calorie counts after surgery to help assess appropriate TFing amount. Goal would be to discontinue TF at some point. Recommendations: 1. Diet per ST 2. Continue TF: Jevity 1.5 @ 75 mls/hr x 12 hours at night 3.Continue Ensure Enlive TID 4.Continue Ensure Pudding TID\ 5. Please provide full assistance at meals Dietitian to Monitor: Lab values, Supplement acceptance, Intake & Output, Diet tolerance, Weight change, PO Intake, Wound/skin status, Medical course
[2018-05-03] MEDS: Oral Hygiene Kit OROPHARYNG SCH ×4 (01:10→16:33)
[2018-05-03] MEDS: Carboxymethylcellulose 0.5% Opth Drops 15 ML Bottle EACH EYE SCH ×3 (06:23→22:22)
[2018-05-03] MEDS: Topiramate 25 MG Tablet PO SCH ×2 (09:34→22:17)
[2018-05-03] MEDS: Folic Acid 1 MG Tablet PO SCH (09:34)
[2018-05-03] MEDS: Sennosides Liq 8.8 MG/5 ML UDC NG/OG SCH ×2 (09:34→22:17)
[2018-05-03] MEDS ORDERED: Chlorhexidine 4% Topical 120 APPLIC/120 ML Bottle TOPICAL ONE (10:00)
--- NOTE | 2018-05-03 12:48 | P.PNIM ---
Subjective Interval history: Patient seen and examined. Afebrile vital signs stable. Patient has no complaints at this time other than wishing to be moved from the chair back to the bed. Understands that the plan of care is for surgery tomorrow 05/04/18. Physical Exam Vital signs: Vital Signs 05/02/18 16:00 05/02/18 20:00 05/03/18 00:00 Temperature 98.1 F 98.1 F 98.1 F Pulse Rate 82 91 H 83 Respiratory Rate 16 18 18 Blood Pressure 132/72 146/98 H 118/81 Pulse Oximetry 96 100 100 05/03/18 00:04 05/03/18 04:00 05/03/18 08:00 Temperature 98.3 F 99.0 F Pulse Rate 89 88 Respiratory Rate 18 18 20 Blood Pressure 117/79 112/82 Pulse Oximetry 97 98 05/03/18 12:00 Temperature 97.4 F L Pulse Rate 82 Respiratory Rate 18 Blood Pressure 125/86 Pulse Oximetry 97 Intake & Output 05/02/18 05/03/18 05/03/18 18:59 06:59 18:59 Intake Total 1260 / 1260 1152 / 1152 Balance 1260 / 1260 1152 / 1152 Weight 53.4 kg Intake: Tube Feeding 900 / 900 952 / 952 Tube Irrigant 120 / 120 Water Bolus Amount 240 / 240 200 / 200 Other: # Incontinent Voids 1 3 # Urine Diapers 1 Date of Last Bowel Movement 05/02/18 05/02/18 # Incontinent Bowel Movements 1 Narrative: GEN: Well-developed, well-nourished patient. No acute distress. CV: Regular rate and rhythm without obvious murmurs LUNGS: Clear to auscultation bilaterally. Normal respiratory effort. No wheezes , rales, rhonchi. GI: Soft, nontender, nondistended. No palpable masses. Bowel sounds WNL. EXT: No edema. NEURO/PSYCH: Afocal. Awake, alert, and oriented x3. Appropriate insight and judgment. - Urinary Catheter Management Indwelling Temp Sensing Catheter Cath placed during this visit: yes, but has since been removed by the nurse Reason for continuing: Not indwelling catheter Insertion date: 03/12/18 Insertion time: 05:30 Removal date: 03/25/18 Removal time: 18:00 Indwelling Urethral Catheter Cath placed during this visit: yes, but has since been removed by the nurse Reason for continuing: Decision to DC catheter Insertion date: 03/22/18 Insertion time: 17:30 Removal date: 03/25/18 Removal time: 18:00 Condom Cath placed during this visit: yes, but has since been removed by the nurse Reason for continuing: Not indwelling catheter Removal date: 03/25/18 Removal time: 18:00 Results - Labs CBC & Chem 7: 05/01/18 06:38 05/01/18 06:38 - Procedures PEG 7 - right decompressive craniectomy 03/22/18 with placement of ICP monitor by Dr. Chacko, ne'ed 03/23/18 03/22/18 Right frontotemporal parietal decompressive craniectomy and Duroplasty 03/22/18 Left frontal bur hole with placement of an intracranial pressure monitor Assessment and Plan - Assessment (1) Intracranial hemorrhage following injury Code(s): S06.309A - Unspecified focal traumatic brain injury with loss of consciousness of unspecified duration, initial encounter Status: Acute (2) Traumatic brain injury Code(s): S06.9X9A - Unspecified intracranial injury with loss of consciousness of unspecified duration, initial encounter Status: Acute (3) Fall Code(s): W19.XXXA - Unspecified fall, initial encounter Status: Chronic (4) Cocaine abuse Code(s): F14.10 - Cocaine abuse, uncomplicated Status: Chronic (5) ETOH abuse Code(s): F10.10 - Alcohol abuse, uncomplicated Status: Chronic (6) Dysphagia Code(s): R13.10 - Dysphagia, unspecified Status: Acute - Plan 62-year-old male admitted secondary to intracranial hemorrhage 05/03 patient remains stable. No significant change. Vital signs stable. Patient is afebrile. 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 SAH bilat frontal lobes, right parietal, temporal. Right frontotemporal SDH status post emergency craniectomy for decompression for worsening midline shift right to left 2.1 cm s/p Fall, ?syncope Daily alcohol use/Cocaine abuse - s/p Right frontotemporal parietal decompressive craniectomy and Duroplasty by Dr. Chacko. Plan for cranioplasty on 05/04/18. - repeat head CT 04/04 with improvement - Continue on Keppra - no seizure activity reported - Continue with PT/OT - PT recommends rehab at discharge - Seizure precautions Palliative care following, appreciate assistance. Per note, patient has improved tremendously. Feels he has capacity to make medical decisions with support of family. Recommended psych consult to assess capacity. Psychiatry consulted, appreciate assistance. - Dr. Narvaez following, appreciate assistance Headache repeat CT head 04/[address] head 04/26 shows stable exam with large right craniectomy defect and 5 mm midline shift, no hemorrhage CTA head negative -Neurology following, appreciate assistance. Started on Topamax 50mg BID for likely vascular component. Dysphagia s/p PEG tube placement 03/30/18 - ST re-evaluated and patient given puree diet with nectar thickened liquids. - Calorie count completed, inadequate intake. 04/20 TF resumed - Jevity 1.5 at 75 mls per hour 12 hours at night 7pm to 7am. 04/25 patient reevaluated by dietitian, recommends continued nighttime feeding and supplement Acute respiratory failure secondary to failure to protect airway-resolved extubated MRSA pneumonia, status post treatment with IV vancomycin and Rocephin Tobacco abuse Extubated 03/25/2018 - Continue as needed duo nebs - continue to monitor respiratory status - Supplemental oxygen as needed DVT prophylaxis SCDs No chemoprophylaxis anticoagulation due to recent intracranial bleed Code Status: Full Discharge Planning: Difficult placement. No payor source. CM assisting with ongoing discharge plan. Plan for cranioplasty on 05/04/[address] Chacko. (2) Traumatic brain injury Qualifiers: Encounter type: subsequent encounter
--- NOTE | 2018-05-03 16:55 | P.PNNS ---
Subjective Interval history: 05/03: awaiting cranioplasty procedure. Physical Exam Vital signs: Vital Signs 05/02/18 20:00 05/03/18 00:00 05/03/18 00:04 Temperature 98.1 F 98.1 F Pulse Rate 91 H 83 Respiratory Rate 18 18 18 Blood Pressure 146/98 H 118/81 Pulse Oximetry 100 100 05/03/18 04:00 05/03/18 08:00 05/03/18 12:00 Temperature 98.3 F 99.0 F 97.4 F L Pulse Rate 89 88 82 Respiratory Rate 18 20 18 Blood Pressure 117/79 112/82 125/86 Pulse Oximetry 97 98 97 05/03/18 16:00 Temperature 98.2 F Pulse Rate 86 Respiratory Rate 18 Blood Pressure 128/79 Pulse Oximetry 98 Intake & Output 05/02/18 05/03/18 05/03/18 18:59 06:59 18:59 Intake Total 1260 / 1260 1152 / 1152 Balance 1260 / 1260 1152 / 1152 Weight 53.4 kg Intake: Tube Feeding 900 / 900 952 / 952 Tube Irrigant 120 / 120 Water Bolus Amount 240 / 240 200 / 200 Other: # Incontinent Voids 1 3 # Urine Diapers 1 Date of Last Bowel Movement 05/02/18 05/02/18 # Incontinent Bowel Movements 1 Narrative: Right flap is well decompressed resting comfortably in bed heart regular rate lungs clear - Urinary Catheter Management Indwelling Temp Sensing Catheter Cath placed during this visit: yes, but has since been removed by the nurse Reason for continuing: Not indwelling catheter Insertion date: 03/12/18 Insertion time: 05:30 Removal date: 03/25/18 Removal time: 18:00 Indwelling Urethral Catheter Cath placed during this visit: yes, but has since been removed by the nurse Reason for continuing: Decision to DC catheter Insertion date: 03/22/18 Insertion time: 17:30 Removal date: 03/25/18 Removal time: 18:00 Condom Cath placed during this visit: yes, but has since been removed by the nurse Reason for continuing: Not indwelling catheter Removal date: 03/25/18 Removal time: 18:00 Assessment and Plan - Plan Impression: 62 y/o male with increased right intracerebral edema with significant 2 cm midline shift, he underwent right decompressive craniectomy 03/22/18 with placement of ICP monitor by Dr. Chacko, dc'ed 03/23/18 right bone flap well decompressed, doing well neurologically Plan: keep NPO today, may undergo right cranioplasty today vs Wed consents in chart
[2018-05-04] MEDS: Oral Hygiene Kit OROPHARYNG SCH ×4 (00:15→20:00)
[2018-05-04] MEDS: Carboxymethylcellulose 0.5% Opth Drops 15 ML Bottle EACH EYE SCH ×3 (06:28→21:26)
[2018-05-04 07:18] LABS: Hematocrit 37.6 % (39.0-51.0); Hemoglobin 12.7 gm/dL (13.0-17.0); Mean Corpuscular HGB Conc 33.7 % (32.0-36.0); Mean Corpuscular Hemoglobin 31.1 pg (27.0-34.0); Mean Corpuscular Volume 92.3 fL (80.0-100.0); Mean Platelet Volume 7.5 fL (7.0-11.0); Platelet Count 271 th/mm3 (150-450); Red Blood Count 4.08 mil/mm3 (4.50-5.90); Red Cell Distribution Width 13.9 % (11.6-17.2); White Blood Count 3.7 th/mm3 (4.0-11.0)
[2018-05-04 07:40] LABS: Anion Gap 9 meq/L (5-15); Blood Urea Nitrogen 22 mg/dL (7-18); Calcium 9.4 mg/dL (8.5-10.1); Carbon Dioxide 26.2 meq/L (21.0-32.0); Chloride 106 meq/L (98-107); Glomerular Filtration Rate Greater Than 89 mL/min (>89); Glucose,Random 102 mg/dL (74-106); Potassium 3.9 meq/L (3.5-5.1); Sodium 141 meq/L (136-145)
[2018-05-04] MEDS: Folic Acid 1 MG Tablet PO SCH (10:36)
[2018-05-04] MEDS: Topiramate 25 MG Tablet PO SCH ×2 (10:36→21:26)
--- NOTE | 2018-05-04 10:36 | P.PNIM ---
Subjective Interval history: in no acute distress. denies headache or pain. d/w the Rn and no acute issues over night. d/w the ST at the bedside. Physical Exam Vital signs: Vital Signs 05/03/18 12:00 05/03/18 16:00 05/03/18 20:00 Temperature 97.4 F L 98.2 F 97.6 F Pulse Rate 82 86 88 Respiratory Rate 18 18 18 Blood Pressure 125/86 128/79 120/84 Pulse Oximetry 97 98 99 05/04/18 00:00 05/04/18 00:15 05/04/18 04:00 Temperature 97.7 F 97.9 F Pulse Rate 89 Respiratory Rate 18 16 18 Blood Pressure 127/84 147/98 H Pulse Oximetry 98 99 05/04/18 08:00 Temperature 97.5 F L Pulse Rate 84 Respiratory Rate 20 Blood Pressure 121/80 Pulse Oximetry 98 Intake & Output 05/03/18 05/04/18 05/04/18 18:59 06:59 18:59 Intake Total 240 / 240 Output Total 2200 / 2200 Balance -1960 / -1960 Weight 53.4 kg Intake: Oral 240 / 240 Output: Urine 2200 / 2200 Other: # Voids 2 # Incontinent Voids 1 Date of Last Bowel Movement 05/02/18 05/02/18 # Bowel Movements 2 - Constitutional no acute distress - Routine Respiratory Exam Present: CTA bilaterally - Routine Cardiovascular Exam Present: RRR - Routine Abdominal Exam Present: soft - Routine Extremities Exam Comments: no pedal edema. - Routine Neurological Exam Present: alert - Urinary Catheter Management Indwelling Temp Sensing Catheter Cath placed during this visit: yes, but has since been removed by the nurse Reason for continuing: Not indwelling catheter Insertion date: 03/12/18 Insertion time: 05:30 Removal date: 03/25/18 Removal time: 18:00 Indwelling Urethral Catheter Cath placed during this visit: yes, but has since been removed by the nurse Reason for continuing: Decision to DC catheter Insertion date: 03/22/18 Insertion time: 17:30 Removal date: 03/25/18 Removal time: 18:00 Condom Cath placed during this visit: yes, but has since been removed by the nurse Reason for continuing: Not indwelling catheter Removal date: 03/25/18 Removal time: 18:00 Results - Labs CBC & Chem 7: 05/04/18 06:56 05/04/18 06:56 Laboratory Results - last 24 hr 05/04/18 05/04/18 06:56 06:56 WBC 3.7 L RBC 4.08 L Hgb 12.7 L Hct 37.6 L MCV 92.3 MCH 31.1 MCHC 33.7 RDW 13.9 Plt Count 271 MPV 7.5 Sodium 141 Potassium 3.9 Chloride 106 Carbon Dioxide 26.2 Anion Gap 9 BUN 22 H Creatinine 0.69 Estimated GFR Greater than 89 Random Glucose 102 Calcium 9.4 - Procedures PEG 7 right decompressive craniectomy 03/22/18 with placement of ICP monitor by Dr. Chacko, pr'ed 03/23/18 03/22/18 Right frontotemporal parietal decompressive craniectomy and Duroplasty 03/22/18 Left frontal bur hole with placement of an intracranial pressure monitor Assessment and Plan - Assessment (1) Intracranial hemorrhage following injury Code(s): S06.309A - Unspecified focal traumatic brain injury with loss of consciousness of unspecified duration, initial encounter Status: Acute (2) Traumatic brain injury Code(s): S06.9X9A - Unspecified intracranial injury with loss of consciousness of unspecified duration, initial encounter Status: Acute (3) Fall Code(s): W19.XXXA - Unspecified fall, initial encounter Status: Chronic (4) Cocaine abuse Code(s): F14.10 - Cocaine abuse, uncomplicated Status: Chronic (5) ETOH abuse Code(s): F10.10 - Alcohol abuse, uncomplicated Status: Chronic (6) Dysphagia Code(s): R13.10 - Dysphagia, unspecified Status: Acute - Plan Right frontal IPH 53.3 cm. SAH bilat frontal lobes, right parietal, temporal. Right frontotemporal SDH status post emergency craniectomy for decompression for worsening midline shift right to left 2.1 cm s/p Fall, ?syncope Daily alcohol use/Cocaine abuse - s/p Right frontotemporal parietal decompressive craniectomy and Duroplasty by Dr. Chacko. Plan for cranioplasty this week. - repeat head CT 04/04 with improvement - Continue on Keppra - no seizure activity reported - Continue with PT/OT - PT recommends rehab at discharge - Seizure precautions Palliative care following, appreciate assistance. Per note, patient has improved tremendously. Feels he has capacity to make medical decisions with support of family. Recommended psych consult to assess capacity. Psychiatry consulted, appreciate assistance. - Dr. Narvaez following, appreciate assistance Headache repeat CT head 04/[address] head 04/26 shows stable exam with large right craniectomy defect and 5 mm midline shift, no hemorrhage CTA head negative -Neurology following, appreciate assistance. Started on Topamax 50mg BID for likely vascular component. Dysphagia s/p PEG tube placement 03/30/18 - ST re-evaluated and patient given puree diet with nectar thickened liquids. - Calorie count completed, inadequate intake. 04/20 TF resumed - Jevity 1.5 at 75 mls per hour 12 hours at night 7pm to 7am. 04/25 patient reevaluated by dietitian, recommends continued nighttime feeding and supplement Acute respiratory failure secondary to failure to protect airway-resolved extubated MRSA pneumonia, status post treatment with IV vancomycin and Rocephin Tobacco abuse Extubated 03/25/2018 - Continue as needed duo nebs - continue to monitor respiratory status - Supplemental oxygen as needed DVT prophylaxis SCDs No chemoprophylaxis anticoagulation due to recent intracranial bleed Discharge Planning: needs placement/ awaiting cranioplasty. (2) Traumatic brain injury Qualifiers: Encounter type: subsequent encounter
[2018-05-04] MEDS: Sennosides Liq 8.8 MG/5 ML UDC NG/OG SCH ×2 (10:37→21:26)
--- NOTE | 2018-05-04 12:53 | P.PNNS ---
Subjective Interval history: 05/04: surgery rescheduled for Wednesday05/06/18 Physical Exam Vital signs: Vital Signs 05/03/18 16:00 05/03/18 20:00 05/04/18 00:00 Temperature 98.2 F 97.6 F 97.7 F Pulse Rate 86 88 Respiratory Rate 18 18 18 Blood Pressure 128/79 120/84 127/84 Pulse Oximetry 98 99 98 05/04/18 00:15 05/04/18 04:00 05/04/18 08:00 Temperature 97.9 F 97.5 F L Pulse Rate 89 84 Respiratory Rate 16 18 20 Blood Pressure 147/98 H 121/80 Pulse Oximetry 99 98 Intake & Output 05/03/18 05/04/18 05/04/18 18:59 06:59 18:59 Intake Total 240 / 240 Output Total 2200 / 2200 Balance -1960 / -1959 Weight 53.4 kg Intake: Oral 240 / 240 Output: Urine 2200 / 2200 Other: # Voids 2 # Incontinent Voids 1 Date of Last Bowel Movement 05/02/18 05/02/18 # Bowel Movements 2 - Urinary Catheter Management Indwelling Temp Sensing Catheter Cath placed during this visit: yes, but has since been removed by the nurse Reason for continuing: Not indwelling catheter Insertion date: 03/12/18 Insertion time: 05:30 Removal date: 03/25/18 Removal time: 18:00 Indwelling Urethral Catheter Cath placed during this visit: yes, but has since been removed by the nurse Reason for continuing: Decision to DC catheter Insertion date: 03/22/18 Insertion time: 17:30 Removal date: 03/25/18 Removal time: 18:00 Condom Cath placed during this visit: yes, but has since been removed by the nurse Reason for continuing: Not indwelling catheter Removal date: 03/25/18 Removal time: 18:00 Assessment and Plan - Plan Impression: 62 y/o male with increased right intracerebral edema with significant 2 cm midline shift, he underwent right decompressive craniectomy 03/22/18 with placement of ICP monitor by Dr. Chacko, co'ed 03/23/18 right bone flap well decompressed, doing well neurologically Plan: resume diet, surgery rescheduled for this Wednesday05/06/18 NPO midnight
[2018-05-05] MEDS: Oral Hygiene Kit OROPHARYNG SCH ×4 (00:53→16:01)
[2018-05-05] MEDS: Carboxymethylcellulose 0.5% Opth Drops 15 ML Bottle EACH EYE SCH ×3 (06:01→22:18)
--- NOTE | 2018-05-05 08:41 | P.PNNPSY ---
- Progress Notes/Response to Treatment Time with Patient: 15 minutes Premorbid Psychological Status: Premorbid Cognitive, Emotional and Behavioral Status: Unstable. The patient has high school and AA degree years of education and a minimal work history prior to this injury. The patient has prior psychiatric difficulties, as described above. Substance abuse history is significant. Behavioral Reactions of Patient and Family/Support System: Unstable. The patient has one daughter whom he reported he has minimal contact. This patient s family may be experiencing ongoing issues of adjustment given the nature of the injury, and this aspect of recovery will require ongoing monitoring. Emotional/Behavioral Status of Patient and Family/Support System: Unstable. Pertinent issues, if appropriate to this patients clinical care, are described in detail above. Maximizing Acute Care Outcome: It is recommended that the patient be monitored for emergent behavioral impulsivity as the medical condition evolves. The ABS is already started and he is not agitated/restless. This patients neuropathological challenges may limit rehabilitation potential going forward, and these challenges will require specialized therapeutic skills to maximize outcome. At this point in the recovery process, the patient does not have cognitive capacity as the patient is unable to understand a situation and its likely consequences, nor is the patient able to manipulate information rationally. Cognitive capacity will be assessed throughout the recovery process. Anticipated Problems: Ongoing areas of concern will include behavioral impulsivity, lack of insight and judgment, which may not improve with time or treatment. Presently, the patient follows commands when told to do so. Given the severity of the patient' s injuries it is my clinical opinion that this patient will be unable to return to any type of productive employment for at least one year, perhaps longer and likely never. This patient is not considered safe to discharge home without supervision. He will likely require SNF placement. Treatment Plan: This clinician will continue to follow with you throughout the course of this patients acute care treatment, and I will be available to meet with the patient s family/support system to facilitate their understanding and the ongoing care of their family member. The goals of neuropsychological intervention shall be both educational and supportive to the family/support system as is deemed clinically appropriate. Disinhibition Score: 17.50 Aggression Score: 17.50 Lability Score: 14.00 Agitated Behavior Total Score: 16 Impression: This 62 year old male with s/p bifrontal TBI, DC and history of polysubstance dependence who is day 47 post admission. This patient presents with neurobehavioral sequelae consistent with frontal lobe pathology, including bradyphrenia, abulia, disconnection between thought and emotion, motor impersistence as well as demonstrating visual neglect (versus field cut). These issues are approaching chronic in nature particularly in the context of underlying neuropathology related to his polysubstance dependence. Progress Note Narrative: Day 63. The patient is neurobehaviorally manageable, yet frustrated by no bone flap replacement. Surgery is rescheduled for Wednesday. ABS scores are subclinical, 16 (17.5,17.5,14). Continue current neurobehavioral treatment is suggested. I will follow. - Diagnosis (1) Major neurocognitive disorder as late effect of traumatic brain injury with behavioral disturbance Status: Acute (2) Polysubstance dependence Status: Acute
[2018-05-05] MEDS: Sennosides Liq 8.8 MG/5 ML UDC NG/OG SCH ×2 (10:00→22:16)
[2018-05-05] MEDS: Folic Acid 1 MG Tablet PO SCH (10:00)
[2018-05-05] MEDS: Topiramate 25 MG Tablet PO SCH ×2 (10:00→22:17)
--- NOTE | 2018-05-05 12:10 | P.PNIM ---
Subjective Interval history: in no distress. clinically the same. d/w the RN and no acute issues over night. Physical Exam Vital signs: Vital Signs 05/04/18 16:00 05/04/18 20:00 05/05/18 00:00 Temperature 98.1 F 97.9 F 97.8 F Pulse Rate 85 89 83 Respiratory Rate 16 18 16 Blood Pressure 123/90 128/92 H 122/67 Pulse Oximetry 97 97 99 05/05/18 01:40 05/05/18 04:00 05/05/18 08:00 Temperature 97.4 F L 97.9 F Pulse Rate 82 86 Respiratory Rate 16 18 18 Blood Pressure 120/86 130/87 Pulse Oximetry 97 96 Intake & Output 05/04/18 05/05/18 05/05/18 18:59 06:59 18:59 Intake Total 290 / 290 Output Total 60 / 60 Balance 230 / 230 Weight 51.6 kg Intake: Oral 240 / 240 Tube Irrigant 50 / 50 Output: Wound Drainage 60 / 60 Head 60 / 60 Other: # Voids 3 # Incontinent Voids 3 Date of Last Bowel Movement 05/02/18 05/04/18 05/04/18 - Constitutional no acute distress - Routine Respiratory Exam Present: CTA bilaterally - Routine Cardiovascular Exam Present: RRR - Routine Abdominal Exam Present: soft - Urinary Catheter Management Indwelling Temp Sensing Catheter Cath placed during this visit: yes, but has since been removed by the nurse Reason for continuing: Not indwelling catheter Insertion date: 03/12/18 Insertion time: 05:30 Removal date: 03/25/18 Removal time: 18:00 Indwelling Urethral Catheter Cath placed during this visit: yes, but has since been removed by the nurse Reason for continuing: Decision to DC catheter Insertion date: 03/22/18 Insertion time: 17:30 Removal date: 03/25/18 Removal time: 18:00 Condom Cath placed during this visit: yes, but has since been removed by the nurse Reason for continuing: Not indwelling catheter Removal date: 03/25/18 Removal time: 18:00 Results - Labs CBC & Chem 7: 05/04/18 06:56 05/04/18 06:56 Laboratory Results - last 24 hr 05/04/18 19:48 POC Glucose 94 - Procedures PEG 7 -25 right decompressive craniectomy 03/22/18 with placement of ICP monitor by Dr. Chacko, nj'ed 03/23/18 03/22/18 Right frontotemporal parietal decompressive craniectomy and Duroplasty 03/22/18 Left frontal bur hole with placement of an intracranial pressure monitor Assessment and Plan - Assessment (1) Intracranial hemorrhage following injury Code(s): S06.309A - Unspecified focal traumatic brain injury with loss of consciousness of unspecified duration, initial encounter Status: Acute (2) Traumatic brain injury Code(s): S06.9X9A - Unspecified intracranial injury with loss of consciousness of unspecified duration, initial encounter Status: Acute (3) Fall Code(s): W19.XXXA - Unspecified fall, initial encounter Status: Chronic (4) Cocaine abuse Code(s): F14.10 - Cocaine abuse, uncomplicated Status: Chronic (5) ETOH abuse Code(s): F10.10 - Alcohol abuse, uncomplicated Status: Chronic (6) Dysphagia Code(s): R13.10 - Dysphagia, unspecified Status: Acute - Plan Right frontal IPH 53.3 cm. SAH bilat frontal lobes, right parietal, temporal. Right frontotemporal SDH status post emergency craniectomy for decompression for worsening midline shift right to left 2.1 cm s/p Fall, ?syncope Daily alcohol use/Cocaine abuse - s/p Right frontotemporal parietal decompressive craniectomy and Duroplasty by Dr. Chacko. Plan for cranioplasty soon- per neurosurgery. - repeat head CT 04/04 with improvement - Continue on Keppra - no seizure activity reported - Continue with PT/OT - PT recommends rehab at discharge - Seizure precautions Palliative care following, appreciate assistance. Per note, patient has improved tremendously. Feels he has capacity to make medical decisions with support of family. Recommended psych consult to assess capacity. Psychiatry consulted, appreciate assistance. - Dr. Narvaez following, appreciate assistance Headache repeat CT head 04/[address] head 04/26 shows stable exam with large right craniectomy defect and 5 mm midline shift, no hemorrhage CTA head negative -Neurology following, appreciate assistance. Started on Topamax 50mg BID for likely vascular component. Dysphagia s/p PEG tube placement 03/30/18 - ST re-evaluated and patient given puree diet with nectar thickened liquids. - Calorie count completed, inadequate intake. 04/20 TF resumed - Jevity 1.5 at 75 mls per hour 12 hours at night 7pm to 7am. 04/25 patient reevaluated by dietitian, recommends continued nighttime feeding and supplement Acute respiratory failure secondary to failure to protect airway-resolved extubated MRSA pneumonia, status post treatment with IV vancomycin and Rocephin Tobacco abuse Extubated 03/25/2018 - Continue as needed duo nebs - continue to monitor respiratory status - Supplemental oxygen as needed DVT prophylaxis SCDs No chemoprophylaxis anticoagulation due to recent intracranial bleed Discharge Planning: needs placement/ awaiting cranioplasty. (2) Traumatic brain injury Qualifiers: Encounter type: subsequent encounter
[2018-05-06] MEDS: Oral Hygiene Kit OROPHARYNG SCH ×4 (02:11→23:27)
[2018-05-06] MEDS: Carboxymethylcellulose 0.5% Opth Drops 15 ML Bottle EACH EYE SCH ×3 (07:36→21:03)
[2018-05-06] MEDS: Folic Acid 1 MG Tablet PO SCH (09:22)
[2018-05-06] MEDS: Sennosides Liq 8.8 MG/5 ML UDC NG/OG SCH ×2 (09:22→21:03)
[2018-05-06] MEDS: Topiramate 25 MG Tablet PO SCH ×2 (09:23→21:02)
--- NOTE | 2018-05-06 10:52 | P.PNIM ---
Subjective Interval history: in no distress. resting comfortably. clinically no change. Physical Exam Vital signs: Vital Signs 05/05/18 12:00 05/05/18 16:00 05/05/18 20:15 Temperature 97.1 F L 97.3 F L 97.9 F Pulse Rate 83 87 86 Respiratory Rate 16 18 17 Blood Pressure 120/92 H 125/80 138/80 Pulse Oximetry 98 99 98 05/06/18 00:15 05/06/18 04:15 05/06/18 08:00 Temperature 98 F 97.9 F 98.0 F Pulse Rate 88 74 87 Respiratory Rate 18 17 16 Blood Pressure 130/67 125/67 114/70 Pulse Oximetry 97 97 100 Intake & Output 05/05/18 05/06/18 05/06/18 18:59 06:59 18:59 Intake Total 540 / 540 2060 / 2060 Output Total 300 / 300 1400 / 1400 Balance 240 / 240 660 / 660 Weight 52 kg Intake: Oral 540 / 540 1040 / 1040 Tube Feeding 900 / 900 Water Bolus Amount 120 / 120 Output: Urine 300 / 300 800 / 800 Urine Amount (Catheter) 600 / 600 Condom 600 / 600 Other: # Incontinent Voids 1 Date of Last Bowel Movement 05/04/18 # Incontinent Bowel Movements 1 1 - Constitutional no acute distress - Routine Respiratory Exam Present: CTA bilaterally - Routine Cardiovascular Exam Present: RRR - Routine Abdominal Exam Present: soft - Urinary Catheter Management Indwelling Temp Sensing Catheter Cath placed during this visit: yes, but has since been removed by the nurse Reason for continuing: Not indwelling catheter Insertion date: 03/12/18 Insertion time: 05:30 Removal date: 03/25/18 Removal time: 18:00 Indwelling Urethral Catheter Cath placed during this visit: yes, but has since been removed by the nurse Reason for continuing: Decision to DC catheter Insertion date: 03/22/18 Insertion time: 17:30 Removal date: 03/25/18 Removal time: 18:00 Condom Cath placed during this visit: yes, but has since been removed by the nurse Reason for continuing: Not indwelling catheter Removal date: 03/25/18 Removal time: 18:00 Results - Labs CBC & Chem 7: 05/04/18 06:56 05/04/18 06:56 - Procedures PEG 7 -25 right decompressive craniectomy 03/22/[facility]18 Right frontotemporal parietal decompressive craniectomy and Duroplasty 03/22/18 Left frontal bur hole with placement of an intracranial pressure monitor Assessment and Plan - Assessment (1) Intracranial hemorrhage following injury Code(s): S06.309A - Unspecified focal traumatic brain injury with loss of consciousness of unspecified duration, initial encounter Status: Acute (2) Traumatic brain injury Code(s): S06.9X9A - Unspecified intracranial injury with loss of consciousness of unspecified duration, initial encounter Status: Acute (3) Fall Code(s): W19.XXXA - Unspecified fall, initial encounter Status: Chronic (4) Cocaine abuse Code(s): F14.10 - Cocaine abuse, uncomplicated Status: Chronic (5) ETOH abuse Code(s): F10.10 - Alcohol abuse, uncomplicated Status: Chronic (6) Dysphagia Code(s): R13.10 - Dysphagia, unspecified Status: Acute - Plan Right frontal IPH 53.3 cm. SAH bilat frontal lobes, right parietal, temporal. Right frontotemporal SDH status post emergency craniectomy for decompression for worsening midline shift right to left 2.1 cm s/p Fall, ?syncope Daily alcohol use/Cocaine abuse - s/p Right frontotemporal parietal decompressive craniectomy and Duroplasty by Dr. Chacko. Plan for cranioplasty soon- per neurosurgery. - repeat head CT 04/04 with improvement - Continue on Keppra - no seizure activity reported - Continue with PT/OT - PT recommends rehab at discharge - Seizure precautions Palliative care following, appreciate assistance. Per note, patient has improved tremendously. Feels he has capacity to make medical decisions with support of family. Recommended psych consult to assess capacity. Psychiatry consulted, appreciate assistance. - Dr. Narvaez following, appreciate assistance Headache repeat CT head 04/[address] head 04/26 shows stable exam with large right craniectomy defect and 5 mm midline shift, no hemorrhage CTA head negative -Neurology following, appreciate assistance. Started on Topamax 50mg BID for likely vascular component. Dysphagia s/p PEG tube placement 03/30/18 - ST re-evaluated and patient given puree diet with nectar thickened liquids. - Calorie count completed, inadequate intake. 04/20 TF resumed - Jevity 1.5 at 75 mls per hour 12 hours at night 7pm to 7am. 04/25 patient reevaluated by dietitian, recommends continued nighttime feeding and supplement Acute respiratory failure secondary to failure to protect airway-resolved extubated MRSA pneumonia, status post treatment with IV vancomycin and Rocephin Tobacco abuse Extubated 03/25/2018 - Continue as needed duo nebs - continue to monitor respiratory status - Supplemental oxygen as needed DVT prophylaxis SCDs No chemoprophylaxis anticoagulation due to recent intracranial bleed Discharge Planning: needs placement/ awaiting cranioplasty. (2) Traumatic brain injury Qualifiers: Encounter type: subsequent encounter
[2018-05-07] MEDS: Oral Hygiene Kit OROPHARYNG SCH ×3 (04:22→17:42)
[2018-05-07] MEDS: Carboxymethylcellulose 0.5% Opth Drops 15 ML Bottle EACH EYE SCH ×3 (06:34→21:53)
[2018-05-07] MEDS: Topiramate 25 MG Tablet PO SCH ×2 (10:53→21:53)
[2018-05-07] MEDS: Folic Acid 1 MG Tablet PO SCH (10:53)
[2018-05-07] MEDS: Sennosides Liq 8.8 MG/5 ML UDC NG/OG SCH ×2 (10:54→21:58)
--- NOTE | 2018-05-07 11:11 | P.PNIM ---
Subjective Interval history: in no distress. looks comfortable. Physical Exam Vital signs: Vital Signs 05/06/18 12:00 05/06/18 16:00 05/06/18 20:00 Temperature 97.9 F 97.8 F 97.5 F L Pulse Rate 85 83 86 Respiratory Rate 18 18 16 Blood Pressure 141/85 H 129/80 135/90 Pulse Oximetry 96 97 96 05/07/18 00:30 05/07/18 05:00 05/07/18 08:00 Temperature 98 F 97.7 F 97.9 F Pulse Rate 78 75 84 Respiratory Rate 17 19 20 Blood Pressure 130/88 123/82 123/77 Pulse Oximetry 97 96 97 Intake & Output 05/06/18 05/07/18 05/07/18 18:59 06:59 18:59 Intake Total 1390 / 1390 120 / 120 Output Total 1300 / 1300 Balance 90 / 90 120 / 120 Weight 52 kg Intake: Oral 370 / 370 120 / 120 Tube Feeding 900 / 900 Water Bolus Amount 120 / 120 Output: Urine Amount (Catheter) 1300 / 1300 Condom 1300 / 1300 Other: # Incontinent Voids 2 # Incontinent Bowel Movements 0 - Constitutional no acute distress - Routine Respiratory Exam Present: CTA bilaterally - Routine Cardiovascular Exam Present: RRR - Routine Abdominal Exam Present: soft - Urinary Catheter Management Indwelling Temp Sensing Catheter Cath placed during this visit: yes, but has since been removed by the nurse Reason for continuing: Not indwelling catheter Insertion date: 03/12/18 Insertion time: 05:30 Removal date: 03/25/18 Removal time: 18:00 Indwelling Urethral Catheter Cath placed during this visit: yes, but has since been removed by the nurse Reason for continuing: Decision to DC catheter Insertion date: 03/22/18 Insertion time: 17:30 Removal date: 03/25/18 Removal time: 18:00 Condom Cath placed during this visit: yes, but has since been removed by the nurse Reason for continuing: Not indwelling catheter Removal date: 03/25/18 Removal time: 18:00 Results - Labs CBC & Chem 7: 05/04/18 06:56 05/04/18 06:56 - Procedures PEG 7 -25 right decompressive craniectomy 03/22/18 with placement of ICP monitor by Dr. Chacko, ny'ed 03/23/18 03/22/18 Right frontotemporal parietal decompressive craniectomy and Duroplasty 03/22/18 Left frontal bur hole with placement of an intracranial pressure monitor Assessment and Plan - Assessment (1) Intracranial hemorrhage following injury Code(s): S06.309A - Unspecified focal traumatic brain injury with loss of consciousness of unspecified duration, initial encounter Status: Acute (2) Traumatic brain injury Code(s): S06.9X9A - Unspecified intracranial injury with loss of consciousness of unspecified duration, initial encounter Status: Acute (3) Fall Code(s): W19.XXXA - Unspecified fall, initial encounter Status: Chronic (4) Cocaine abuse Code(s): F14.10 - Cocaine abuse, uncomplicated Status: Chronic (5) ETOH abuse Code(s): F10.10 - Alcohol abuse, uncomplicated Status: Chronic (6) Dysphagia Code(s): R13.10 - Dysphagia, unspecified Status: Acute - Plan Right frontal IPH 53.3 cm. SAH bilat frontal lobes, right parietal, temporal. Right frontotemporal SDH status post emergency craniectomy for decompression for worsening midline shift right to left 2.1 cm s/p Fall, ?syncope Daily alcohol use/Cocaine abuse - s/p Right frontotemporal parietal decompressive craniectomy and Duroplasty by Dr. Chacko. Plan for cranioplasty soon- per neurosurgery. - repeat head CT 04/04 with improvement - Continue on Keppra - no seizure activity reported - Continue with PT/OT - PT recommends rehab at discharge - Seizure precautions Palliative care following, appreciate assistance. Per note, patient has improved tremendously. Feels he has capacity to make medical decisions with support of family. Recommended psych consult to assess capacity. Psychiatry consulted, appreciate assistance. - Dr. Narvaez following, appreciate assistance Headache repeat CT head 04/[address] head 04/26 shows stable exam with large right craniectomy defect and 5 mm midline shift, no hemorrhage CTA head negative -Neurology following, appreciate assistance. Started on Topamax 50mg BID for likely vascular component. Dysphagia s/p PEG tube placement 03/30/18 - ST re-evaluated and patient given puree diet with nectar thickened liquids. - Calorie count completed, inadequate intake. 04/20 TF resumed - Jevity 1.5 at 75 mls per hour 12 hours at night 7pm to 7am. 04/25 patient reevaluated by dietitian, recommends continued nighttime feeding and supplement Acute respiratory failure secondary to failure to protect airway-resolved extubated MRSA pneumonia, status post treatment with IV vancomycin and Rocephin Tobacco abuse Extubated 03/25/2018 - Continue as needed duo nebs - continue to monitor respiratory status - Supplemental oxygen as needed DVT prophylaxis SCDs No chemoprophylaxis anticoagulation due to recent intracranial bleed Discharge Planning: needs placement/ awaiting cranioplasty. (2) Traumatic brain injury Qualifiers: Encounter type: subsequent encounter
[2018-05-08] MEDS: Carboxymethylcellulose 0.5% Opth Drops 15 ML Bottle EACH EYE SCH ×2 (08:30→16:54)
[2018-05-08] MEDS: Oral Hygiene Kit OROPHARYNG SCH ×3 (08:31→16:54)
[2018-05-08] MEDS: Topiramate 25 MG Tablet PO SCH (08:31)
[2018-05-08] MEDS: Folic Acid 1 MG Tablet PO SCH (08:31)
[2018-05-08] MEDS: Sennosides Liq 8.8 MG/5 ML UDC NG/OG SCH (08:32)
--- NOTE | 2018-05-08 10:33 | P.PNIM ---
Subjective Interval history: in no distress. clinically no change. Physical Exam Vital signs: Vital Signs 05/07/18 12:00 05/07/18 16:00 05/07/18 19:58 Temperature 97.7 F 97.6 F 97.4 F L Pulse Rate 82 91 H 98 H Respiratory Rate 18 18 18 Blood Pressure 113/76 136/93 H 143/96 H Pulse Oximetry 98 100 97 05/08/18 00:00 05/08/18 04:00 05/08/18 08:00 Temperature 97.7 F 98.2 F 97.9 F Pulse Rate 88 89 90 Respiratory Rate 18 18 20 Blood Pressure 126/85 124/81 129/85 Pulse Oximetry 99 98 100 Intake & Output 05/07/18 05/08/18 05/08/18 18:59 06:59 18:59 Intake Total 120 / 120 Balance 120 / 120 Weight 52.6 kg Intake: Oral 120 / 120 Other: # Voids 3 # Incontinent Voids 1 Date of Last Bowel Movement 05/08/18 05/07/18 # Bowel Movements 1 - Constitutional no acute distress - Routine Respiratory Exam Present: CTA bilaterally - Routine Cardiovascular Exam Present: RRR - Routine Abdominal Exam Present: soft - Urinary Catheter Management Indwelling Temp Sensing Catheter Cath placed during this visit: yes, but has since been removed by the nurse Reason for continuing: Not indwelling catheter Insertion date: 03/12/18 Insertion time: 05:30 Removal date: 03/25/18 Removal time: 18:00 Indwelling Urethral Catheter Cath placed during this visit: yes, but has since been removed by the nurse Reason for continuing: Decision to DC catheter Insertion date: 03/22/18 Insertion time: 17:30 Removal date: 03/25/18 Removal time: 18:00 Condom Cath placed during this visit: yes, but has since been removed by the nurse Reason for continuing: Not indwelling catheter Removal date: 03/25/18 Removal time: 18:00 Results - Labs CBC & Chem 7: 05/04/18 06:56 05/04/18 06:56 - Procedures PEG 7 -25 right decompressive craniectomy 03/22/18 with placement of ICP monitor by Dr. Chacko, ia'ed 03/23/18 03/22/18 Right frontotemporal parietal decompressive craniectomy and Duroplasty 03/22/18 Left frontal bur hole with placement of an intracranial pressure monitor Assessment and Plan - Assessment (1) Intracranial hemorrhage following injury Code(s): S06.309A - Unspecified focal traumatic brain injury with loss of consciousness of unspecified duration, initial encounter Status: Acute (2) Traumatic brain injury Code(s): S06.9X9A - Unspecified intracranial injury with loss of consciousness of unspecified duration, initial encounter Status: Acute (3) Fall Code(s): W19.XXXA - Unspecified fall, initial encounter Status: Chronic (4) Cocaine abuse Code(s): F14.10 - Cocaine abuse, uncomplicated Status: Chronic (5) ETOH abuse Code(s): F10.10 - Alcohol abuse, uncomplicated Status: Chronic (6) Dysphagia Code(s): R13.10 - Dysphagia, unspecified Status: Acute - Plan Right frontal IPH 53.3 cm. SAH bilat frontal lobes, right parietal, temporal. Right frontotemporal SDH status post emergency craniectomy for decompression for worsening midline shift right to left 2.1 cm s/p Fall, ?syncope Daily alcohol use/Cocaine abuse - s/p Right frontotemporal parietal decompressive craniectomy and Duroplasty by Dr. Chacko. Plan for cranioplasty soon- per neurosurgery. - repeat head CT 04/04 with improvement - Continue on Keppra - no seizure activity reported - Continue with PT/OT - PT recommends rehab at discharge - Seizure precautions Palliative care following, appreciate assistance. Per note, patient has improved tremendously. Feels he has capacity to make medical decisions with support of family. Recommended psych consult to assess capacity. Psychiatry consulted, appreciate assistance. - Dr. Narvaez following, appreciate assistance Headache repeat CT head 04/[address] head 04/26 shows stable exam with large right craniectomy defect and 5 mm midline shift, no hemorrhage CTA head negative -Neurology following, appreciate assistance. Started on Topamax 50mg BID for likely vascular component. Dysphagia s/p PEG tube placement 03/30/18 - ST re-evaluated and patient given puree diet with nectar thickened liquids. - Calorie count completed, inadequate intake. 04/20 TF resumed - Jevity 1.5 at 75 mls per hour 12 hours at night 7pm to 7am. 04/25 patient reevaluated by dietitian, recommends continued nighttime feeding and supplement Acute respiratory failure secondary to failure to protect airway-resolved extubated MRSA pneumonia, status post treatment with IV vancomycin and Rocephin Tobacco abuse Extubated 03/25/2018 - Continue as needed duo nebs - continue to monitor respiratory status - Supplemental oxygen as needed DVT prophylaxis SCDs No chemoprophylaxis anticoagulation due to recent intracranial bleed Discharge Planning: needs placement/ awaiting cranioplasty. (2) Traumatic brain injury Qualifiers: Encounter type: subsequent encounter
[2018-05-09] MEDS: Topiramate 25 MG Tablet PO SCH ×3 (00:02→22:19)
[2018-05-09] MEDS: Sennosides Liq 8.8 MG/5 ML UDC NG/OG SCH ×3 (00:03→22:19)
[2018-05-09] MEDS: Oral Hygiene Kit OROPHARYNG SCH ×4 (00:03→16:41)
[2018-05-09] MEDS: Carboxymethylcellulose 0.5% Opth Drops 15 ML Bottle EACH EYE SCH ×4 (00:05→22:19)
[2018-05-09] MEDS: Folic Acid 1 MG Tablet PO SCH (08:48)
--- NOTE | 2018-05-09 10:47 | P.DIET ---
Nutritional Evaluation Type of nutrition evaluation: follow-up Nutrition consult regarding: Tube Feeding Nutrition screening: [facility] [place] Objective - Diagnosis ICH, SAH, Syncope - Objective % IBW: 87 (IBW = 166#) Body Weight Used for Calculations: Actual (65.4 kg) Energy Needs - Lower Range (kCal/kg): 28 Energy Needs - Upper Range (kCal/kg): 33 Lower Limit kCal/kg (kCals): 1,831 Upper Limit kCal/kg (kCals): 2,158 Lower Limit Protein Factor (Grams per Kg): 1.2 Upper Limit Protein Factor (Grams per Kg): 1.5 Lower Protein Needs (Protein): 79 Upper Protein Needs (Protein): 98 Fluid Factor (ml/kg): 28 Estimated Fluid Needs (ml): 1,831 Dietitian Reviewed in Medical Record: Current diet, Curent medications, Intake & Output, Labs, Medical history, Tube feeding, Wound/DTI Diet Order: Pureed, Honey Thickened Liquids Speech Therapy Recommendations: Yes (pureed, nectar thickened liquids) Objective Comments: PMH: COPD, Asthma, tobacco abuse, daily ETOH use 03/22 R front temporal parietal decompressive craniectomy Integumentary: coccyx pressure injury PEG placement 03/30/18 Meds Include: Keppra, Theragran, Thiamine, Folic Acid Feeding - Current Tube Feeding Tube Feeding Product: Jevity 1.5 Tube Feeding Rate: 75 (mls/hr x 12 hours) Tube Feeding Route: gastrostomy Current kCals Provided by Tube Feedin,350 Current Protein Provided by Tube Feeding (gPRO): 57 Current Free H2O Provided (m/l): 1,003 - Current PO Supplement Current Supplement: Ensure Enlive Current Frequency of Supplement: Three times a day Current kCals Provided by Supplement: 350 Current Protein Provided by Supplement: 20 Supplement Comments: plus Ensure Pudding(= 170 kcal and 4g protein per serving) Assessment Assessment: Pt was extubated on 03/25 and PEG tube placed 03/30. Current diet is pureed with nectar thickened liquids and Ensure Enlive and Ensure Pudding added. CBW is 53.1 kg which indicates ~27# weight loss since admission. Recommend continue night time TFing to supplement po intake to prevent further nutritional compromise. Recommend continue Jevity 1.5 @ 75 mls/hr from 7pm -7am to provide 1350 kcals and 57 gms protein. Still waiting for Cranioplasty surgery. Will repeat calorie counts after surgery to help assess appropriate TFing amount. Goal would be to discontinue TF at some point. Recommendations: 1. Diet per ST 2. Continue TF: Jevity 1.5 @ 75 mls/hr x 12 hours at night 3.Continue Ensure Enlive TID 4.Continue Ensure Pudding TID\ 5. Please provide full assistance at meals Dietitian to Monitor: Lab values, Supplement acceptance, Intake & Output, Diet tolerance, Weight change, PO Intake, Wound/skin status, Medical course
--- NOTE | 2018-05-09 10:56 | P.PNIM ---
Subjective Interval history: in no acute distress. clinically no change. Physical Exam Vital signs: Vital Signs 05/08/18 12:00 05/08/18 16:00 05/08/18 20:00 Temperature 97.3 F L 98.4 F 98 F Pulse Rate 90 95 H 94 H Respiratory Rate 20 20 20 Blood Pressure 135/86 149/94 H 128/86 Pulse Oximetry 95 97 99 05/09/18 00:00 05/09/18 04:00 05/09/18 07:41 Temperature 97.6 F 97.5 F L 97.4 F L Pulse Rate 83 90 87 Respiratory Rate 18 18 14 Blood Pressure 135/89 113/77 134/82 Pulse Oximetry 100 100 98 Intake & Output 05/08/18 05/09/18 05/09/18 18:59 06:59 18:59 Intake Total 240 / 240 900 / 900 Balance 240 / 240 900 / 900 Weight 53.1 kg Intake: Oral 240 / 240 Tube Feeding 900 / 900 Other: # Incontinent Voids 1 1 Date of Last Bowel Movement 05/07/18 05/09/18 05/07/18 # Bowel Movements 1 - Constitutional no acute distress (clinically no change.) - Urinary Catheter Management Indwelling Temp Sensing Catheter Cath placed during this visit: yes, but has since been removed by the nurse Reason for continuing: Not indwelling catheter Insertion date: 03/12/18 Insertion time: 05:30 Removal date: 03/25/18 Removal time: 18:00 Indwelling Urethral Catheter Cath placed during this visit: yes, but has since been removed by the nurse Reason for continuing: Decision to DC catheter Insertion date: 03/22/18 Insertion time: 17:30 Removal date: 03/25/18 Removal time: 18:00 Condom Cath placed during this visit: yes, but has since been removed by the nurse Reason for continuing: Not indwelling catheter Removal date: 03/25/18 Removal time: 18:00 Results - Labs CBC & Chem 7: 05/04/18 06:56 05/04/18 06:56 - Procedures PEG 7 -25 right decompressive craniectomy 03/22/18 with placement of ICP monitor by Dr. Chacko, nh'ed 03/23/18 03/22/18 Right frontotemporal parietal decompressive craniectomy and Duroplasty 03/22/18 Left frontal bur hole with placement of an intracranial pressure monitor Assessment and Plan - Assessment (1) Intracranial hemorrhage following injury Code(s): S06.309A - Unspecified focal traumatic brain injury with loss of consciousness of unspecified duration, initial encounter Status: Acute (2) Traumatic brain injury Code(s): S06.9X9A - Unspecified intracranial injury with loss of consciousness of unspecified duration, initial encounter Status: Acute (3) Fall Code(s): W19.XXXA - Unspecified fall, initial encounter Status: Chronic (4) Cocaine abuse Code(s): F14.10 - Cocaine abuse, uncomplicated Status: Chronic (5) ETOH abuse Code(s): F10.10 - Alcohol abuse, uncomplicated Status: Chronic (6) Dysphagia Code(s): R13.10 - Dysphagia, unspecified Status: Acute - Plan Right frontal IPH 53.3 cm. SAH bilat frontal lobes, right parietal, temporal. Right frontotemporal SDH status post emergency craniectomy for decompression for worsening midline shift right to left 2.1 cm s/p Fall, ?syncope Daily alcohol use/Cocaine abuse - s/p Right frontotemporal parietal decompressive craniectomy and Duroplasty by Dr. Chacko. Plan for cranioplasty soon- per neurosurgery. - repeat head CT 04/04 with improvement - Continue on Keppra - no seizure activity reported - Continue with PT/OT - PT recommends rehab at discharge - Seizure precautions Palliative care following, appreciate assistance. Per note, patient has improved tremendously. Feels he has capacity to make medical decisions with support of family. Recommended psych consult to assess capacity. Psychiatry consulted, appreciate assistance. - Dr. Narvaez following, appreciate assistance Headache repeat CT head 04/[address] head 04/26 shows stable exam with large right craniectomy defect and 5 mm midline shift, no hemorrhage CTA head negative -Neurology following, appreciate assistance. Started on Topamax 50mg BID for likely vascular component. Dysphagia s/p PEG tube placement 03/30/18 - ST re-evaluated and patient given puree diet with nectar thickened liquids. - Calorie count completed, inadequate intake. 04/20 TF resumed - Jevity 1.5 at 75 mls per hour 12 hours at night 7pm to 7am. 04/25 patient reevaluated by dietitian, recommends continued nighttime feeding and supplement Acute respiratory failure secondary to failure to protect airway-resolved extubated MRSA pneumonia, status post treatment with IV vancomycin and Rocephin Tobacco abuse Extubated 03/25/2018 - Continue as needed duo nebs - continue to monitor respiratory status - Supplemental oxygen as needed DVT prophylaxis SCDs No chemoprophylaxis anticoagulation due to recent intracranial bleed Discharge Planning: needs placement/ awaiting cranioplasty. (2) Traumatic brain injury Qualifiers: Encounter type: subsequent encounter
[2018-05-10] MEDS: Oral Hygiene Kit OROPHARYNG SCH ×4 (02:08→15:27)
[2018-05-10] MEDS: Carboxymethylcellulose 0.5% Opth Drops 15 ML Bottle EACH EYE SCH ×3 (07:03→21:23)
--- NOTE | 2018-05-10 08:33 | P.PNNPSY ---
- Progress Notes/Response to Treatment Time with Patient: 15 minutes Premorbid Psychological Status: Premorbid Cognitive, Emotional and Behavioral Status: Unstable. The patient has high school and AA degree years of education and a minimal work history prior to this injury. The patient has prior psychiatric difficulties, as described above. Substance abuse history is significant. Behavioral Reactions of Patient and Family/Support System: Unstable. The patient has one daughter whom he reported he has minimal contact. This patient s family may be experiencing ongoing issues of adjustment given the nature of the injury, and this aspect of recovery will require ongoing monitoring. Emotional/Behavioral Status of Patient and Family/Support System: Unstable. Pertinent issues, if appropriate to this patients clinical care, are described in detail above. Maximizing Acute Care Outcome: It is recommended that the patient be monitored for emergent behavioral impulsivity as the medical condition evolves. The ABS is already started and he is not agitated/restless. This patients neuropathological challenges may limit rehabilitation potential going forward, and these challenges will require specialized therapeutic skills to maximize outcome. At this point in the recovery process, the patient's decision making capacity may have improved to some extent but it is unclear whether he is able to understand a situation and its likely consequences, or whether he is able to manipulate information rationally at a level commensurate with his baseline. On the brief exam today, I would surmise no. Cognitive capacity will be assessed throughout the recovery process. Anticipated Problems: Ongoing areas of concern will include behavioral impulsivity, lack of insight and judgment, which may not improve with time or treatment. Presently, the patient follows commands when told to do so. Given the severity of the patient' s injuries it is my clinical opinion that this patient will be unable to return to any type of productive employment for at least one year, perhaps longer and likely never. This patient is not considered safe to discharge home without supervision. He will likely require SNF placement. Treatment Plan: This clinician will continue to follow with you throughout the course of this patients acute care treatment, and I will be available to meet with the patient s family/support system to facilitate their understanding and the ongoing care of their family member. The goals of neuropsychological intervention shall be both educational and supportive to the family/support system as is deemed clinically appropriate. Disinhibition Score: 14.00 Aggression Score: 14.00 Lability Score: 14.00 Agitated Behavior Total Score: 14 Impression: This 62 year old male with s/p bifrontal TBI, DC and history of polysubstance dependence who is day 47 post admission. This patient presents with neurobehavioral sequelae consistent with frontal lobe pathology, including bradyphrenia, abulia, disconnection between thought and emotion, motor impersistence as well as demonstrating visual neglect (versus field cut). These issues are approaching chronic in nature particularly in the context of underlying neuropathology related to his polysubstance dependence. Progress Note Narrative: Day 67. The patient has improved significantly from a neurobehavioral standpoint. He has been seen by palliative care as well as psychiatry. He has not yet underwent bone flap replacement. He demonstrates no agitation/ restlessness and is calm and compliant. However, he does not engage when interacted with, with lack of initiation. I will follow. - Diagnosis (1) Major neurocognitive disorder as late effect of traumatic brain injury with behavioral disturbance Status: Acute (2) Polysubstance dependence Status: Acute
[2018-05-10] MEDS: Folic Acid 1 MG Tablet PO SCH (09:14)
[2018-05-10] MEDS: Topiramate 25 MG Tablet PO SCH ×2 (09:15→21:22)
[2018-05-10] MEDS: Sennosides Liq 8.8 MG/5 ML UDC NG/OG SCH ×2 (09:15→21:19)
--- NOTE | 2018-05-10 10:52 | P.PNIM ---
Subjective Interval history: in no distress. no change clinically. d/w the RN and no acute issues. Physical Exam Vital signs: Vital Signs 05/09/18 12:57 05/09/18 15:25 05/09/18 20:00 Temperature 97.5 F L 97.6 F 97.8 F Pulse Rate 80 82 89 Respiratory Rate 16 15 18 Blood Pressure 145/94 H 141/94 H 116/80 Pulse Oximetry 100 98 98 05/10/18 00:00 05/10/18 04:00 05/10/18 08:00 Temperature 97.3 F L 97.5 F L 97.3 F L Pulse Rate 83 86 84 Respiratory Rate 18 18 16 Blood Pressure 113/78 117/78 144/101 H Pulse Oximetry 97 97 98 Intake & Output 05/09/18 05/10/18 05/10/18 18:59 06:59 18:59 Output Total Balance - Weight 53.1 kg Output: Stool Other: # Voids 1 4 # Incontinent Voids 3 Date of Last Bowel Movement 05/07/18 05/07/18 # Bowel Movements 1 1 - Constitutional no acute distress (no change clinically.) - Routine Respiratory Exam Present: CTA bilaterally - Routine Cardiovascular Exam Present: RRR - Routine Abdominal Exam Present: soft - Urinary Catheter Management Indwelling Temp Sensing Catheter Cath placed during this visit: yes, but has since been removed by the nurse Reason for continuing: Not indwelling catheter Insertion date: 03/12/18 Insertion time: 05:30 Removal date: 03/25/18 Removal time: 18:00 Indwelling Urethral Catheter Cath placed during this visit: yes, but has since been removed by the nurse Reason for continuing: Decision to DC catheter Insertion date: 03/22/18 Insertion time: 17:30 Removal date: 03/25/18 Removal time: 18:00 Condom Cath placed during this visit: yes, but has since been removed by the nurse Reason for continuing: Not indwelling catheter Removal date: 03/25/18 Removal time: 18:00 Results - Labs CBC & Chem 7: 05/04/18 06:56 05/04/18 06:56 - Procedures PEG 7 -25 right decompressive craniectomy 03/22/18 with placement of ICP monitor by Dr. Chacko, id'ed 03/23/18 03/22/18 Right frontotemporal parietal decompressive craniectomy and Duroplasty 03/22/18 Left frontal bur hole with placement of an intracranial pressure monitor Assessment and Plan - Assessment (1) Intracranial hemorrhage following injury Code(s): S06.309A - Unspecified focal traumatic brain injury with loss of consciousness of unspecified duration, initial encounter Status: Acute (2) Traumatic brain injury Code(s): S06.9X9A - Unspecified intracranial injury with loss of consciousness of unspecified duration, initial encounter Status: Acute (3) Fall Code(s): W19.XXXA - Unspecified fall, initial encounter Status: Chronic (4) Cocaine abuse Code(s): F14.10 - Cocaine abuse, uncomplicated Status: Chronic (5) ETOH abuse Code(s): F10.10 - Alcohol abuse, uncomplicated Status: Chronic (6) Dysphagia Code(s): R13.10 - Dysphagia, unspecified Status: Acute - Plan Right frontal IPH 53.3 cm. SAH bilat frontal lobes, right parietal, temporal. Right frontotemporal SDH status post emergency craniectomy for decompression for worsening midline shift right to left 2.1 cm s/p Fall, ?syncope Daily alcohol use/Cocaine abuse - s/p Right frontotemporal parietal decompressive craniectomy and Duroplasty by Dr. Chacko. Plan for cranioplasty soon- per neurosurgery. - repeat head CT 04/04 with improvement - Continue on Keppra - no seizure activity reported - Continue with PT/OT - PT recommends rehab at discharge - Seizure precautions Palliative care following, appreciate assistance. Per note, patient has improved tremendously. Feels he has capacity to make medical decisions with support of family. Recommended psych consult to assess capacity. Psychiatry consulted, appreciate assistance. - Dr. Narvaez following, appreciate assistance Headache repeat CT head 04/[address] head 04/26 shows stable exam with large right craniectomy defect and 5 mm midline shift, no hemorrhage CTA head negative -Neurology following, appreciate assistance. Started on Topamax 50mg BID for likely vascular component. Dysphagia s/p PEG tube placement 03/30/18 - ST re-evaluated and patient given puree diet with nectar thickened liquids. - Calorie count completed, inadequate intake. 04/20 TF resumed - Jevity 1.5 at 75 mls per hour 12 hours at night 7pm to 7am. 04/25 patient reevaluated by dietitian, recommends continued nighttime feeding and supplement Acute respiratory failure secondary to failure to protect airway-resolved extubated MRSA pneumonia, status post treatment with IV vancomycin and Rocephin Tobacco abuse Extubated 03/25/2018 - Continue as needed duo nebs - continue to monitor respiratory status - Supplemental oxygen as needed DVT prophylaxis SCDs No chemoprophylaxis anticoagulation due to recent intracranial bleed Discharge Planning: needs placement/ awaiting cranioplasty. (2) Traumatic brain injury Qualifiers: Encounter type: subsequent encounter
--- NOTE | 2018-05-10 12:00 | P.HPIM ---
History of Present Illness Primary Care Physician: No Primary Care Physician - Diagnosis (1) Intracranial hemorrhage following injury (2) Traumatic brain injury (3) Fall (4) Cocaine abuse (5) ETOH abuse (6) Dysphagia Inpatient Certification: I certify that the inpatient services were ordered in accordance with Medicare regulations governing the order. This includes certification that hospital inpatient services are reasonable and necessary and in the case of services not specified as inpatient-only under 42 CFR 419.22(n), that they are appropriately provided as inpatient services in accordance to with the 2-midnight benchmark under 43 CFR 412.3(e) [facility] - History History Provided By: Patient, Medical Record - Medical / Surgical Hx Neg / Unobtainable Medical Problems Denied: Unable to Obtain (not cooperating) - Medical History Medical History: Medical History (Last Reviewed 05/10/18 @ 08:13 by [facility]) Asthma COPD (chronic obstructive pulmonary disease) Tobacco abuse - Surgical History Surgical History: Surgical History (Last Reviewed 05/10/18 @ 08:13 by [facility]) No history of previous surgery - Tobacco History Smoking Status: Light tobacco smoker Tobacco Type: Cigarettes Cigarettes Per Day: 0.5 - Alcohol History How Often Do You Have a Drink Containing Alcohol: 4 or more times a week - Substance Use History Substance History: Active Abuse Medications and Allergies Active Medications: Active Medications Acetaminophen (Tylenol Liq) 650 mg NG/OG Q6H PRN PRN Reason: HEADACHE OR TEMP > 101 F Last Admin: 04/30/18 15:12 Dose: 650 mg Hydrocodone Bitart/Acetaminophen ([place] 7.5/325) 1 tab G-TUBE Q6H PRN PRN Reason: PAIN SCALE 6 TO 10 Last Admin: 05/10/18 09:14 Dose: 1 tab Al Hydrox/Mg Hydrox/Simethicone (Mag-Al Plus Susp Liq) 30 ml PO Q6H PRN PRN Reason: DYSPEPSIA Albuterol (Albuterol Neb (Prn)) 2.5 mg NEB Q2HR NEB PRN PRN Reason: WHEEZING Last Admin: 03/17/18 03:27 Dose: 2.5 mg Artificial Tears (Refresh Tears 0.5% Opth Drops) 1 drop EACH EYE Q8HR [facility] Last Admin: 05/10/18 07:03 Dose: Not Given Folic Acid (Folic Acid) 1 mg PO DAILY [facility] Last Admin: 05/10/18 09:14 Dose: 1 mg Lansoprazole (Prevacid Solutab) 30 mg NG/OG DAILY [facility] Last Admin: 05/10/18 09:15 Dose: 30 mg Levetiracetam (Keppra Liq) 500 mg NG/OG BID [facility] Last Admin: 05/10/18 09:15 Dose: 500 mg Menthol ([place]) 1 lozenge BUCCAL UNSCH PRN PRN Reason: SORE THROAT Last Admin: 04/17/18 22:30 Dose: 1 lozenge Multivitamins (Theragran) 1 tab PO DAILY [facility] Last Admin: 05/10/18 09:14 Dose: 1 tab Ondansetron HCl (Zofran Inj) 4 mg IV.PUSH Q6H PRN PRN Reason: NAUSEA OR VOMITING Promethazine HCl (Phenergan Inj) 25 mg IM Q4H PRN PRN Reason: NAUSEA OR VOMITING Sennosides (Senna Liq) 8.8 mg NG/OG BID [facility] Last Admin: 05/10/18 09:15 Dose: 8.8 mg Sodium Chloride (Ns Flush) 2 ml IV.FLUSH UNSCH PRN PRN Reason: FLUSH AFTER USING IV ACCESS Sodium Chloride (Ns Flush) 2 ml IV.FLUSH BID [facility] Last Admin: 05/10/18 09:16 Dose: 2 ml Temazepam (Restoril) 7.5 mg G-TUBE HS PRN PRN Reason: INSOMNIA Last Admin: 05/06/18 21:02 Dose: 7.5 mg Thiamine HCl (Vitamin B1) 100 mg PO BID [facility] Last Admin: 05/10/18 09:14 Dose: 100 mg Topiramate (Topamax) 50 mg PO BID [facility] Last Admin: 05/10/18 09:15 Dose: 50 mg Allergies Allergy/AdvReac Type Severity Reaction Status Date / Time No Known Allergies Allergy Unknown Uncoded 03/03/18 20:43 Home Medications Medication Instructions Recorded Confirmed Type aspirin 325 mg PO DAILY 03/05/18 03/05/18 History Exam Vital signs: Vital Signs 05/09/18 12:57 05/09/18 15:25 05/09/18 20:00 Temperature 97.5 F L 97.6 F 97.8 F Pulse Rate 80 82 89 Respiratory Rate 16 15 18 Blood Pressure 145/94 H 141/94 H 116/80 Pulse Oximetry 100 98 98 05/10/18 00:00 05/10/18 04:00 05/10/18 08:00 Temperature 97.3 F L 97.5 F L 97.3 F L Pulse Rate 83 86 84 Respiratory Rate 18 18 16 Blood Pressure 113/78 117/78 144/101 H Pulse Oximetry 97 97 98 Intake & Output 05/09/18 05/10/18 05/10/18 18:59 06:59 18:59 Output Total Balance - Weight 53.1 kg Output: Stool Other: # Voids 1 4 # Incontinent Voids 3 Date of Last Bowel Movement 05/07/18 05/07/18 05/09/18 # Bowel Movements 1 1 Results - Labs CBC & Chem 7: 05/04/18 06:56 05/04/18 06:56 Caprini VTE Risk Assessment Mannierini Risk Assessment Model: Point Value = 1 Point Value = 2 Point Value = 3 Point Value = 5 Age 41-60 Minor surgery BMI > 25 kg/m2 Swollen legs Varicose veins or History of unexplained or recurrent spontaneous Oral contraceptives or hormone replacement Sepsis (< 1 month) Serious lung disease, including pneumonia (< 1 month) Abnormal pulmonary function Acute myocardial infarction Congestive heart failure (< 1 month) History of inflammatory bowel disease Medical patient at bed rest Age 61-74 Arthroscopic surgery Major open surgery (> 45 min) Laparoscopic surgery (> 45 min) Malignancy Confined to bed (> 72 hours) Immobilizing plaster cast Central venous access Age >= 75 History of VTE Family history of VTE Factor V Leiden Prothrombin [id number] Lupus anticoagulant Anticardiolipin antibodies Elevated serum homocysteine Heparin-induced thrombocytopenia Other congenital or acquired thrombophilia Stroke (< 1 month) Elective arthroplasty Hip, pelvis, or leg fracture Acute spinal cord injury (< 1 month) Prophylaxis Regimen: Total Risk Factor Score Risk Level Prophylaxis Regimen 0-1 Low Early ambulation 2 Moderate Order ONE of the following: *Sequential Compression Device (SCD) *Heparin 5000 units SQ BID 3-4 Higher Order ONE of the following medications: *Heparin 5000 units SQ TID *Enoxaparin/Lovenox 40 mg SQ daily (WT < 150 kg, CrCl > 30 mL/min) *Enoxaparin/Lovenox 30 mg SQ daily (WT < 150 kg, CrCl > 10-29 mL/min) *Enoxaparin/Lovenox 30 mg SQ BID (WT < 150 kg, CrCl > 30 mL/min) AND/OR *Sequential Compression Device (SCD) 5 or more Highest Order ONE of the following medications: *Heparin 5000 units SQ TID (Preferred with Epidurals) *Enoxaparin/Lovenox 40 mg SQ daily (WT < 150 kg, CrCl > 30 mL/min) *Enoxaparin/Lovenox 30 mg SQ daily (WT < 150 kg, CrCl > 10-29 mL/min) *Enoxaparin/Lovenox 30 mg SQ BID (WT < 150 kg, CrCl > 30 mL/min) AND *Sequential Compression Device (SCD) Assessment and Plan - Assessment (1) Intracranial hemorrhage following injury Code(s): S06.309A - Unspecified focal traumatic brain injury with loss of consciousness of unspecified duration, initial encounter Status: Acute (2) Traumatic brain injury Code(s): S06.9X9A - Unspecified intracranial injury with loss of consciousness of unspecified duration, initial encounter Status: Acute (3) Fall Code(s): W19.XXXA - Unspecified fall, initial encounter Status: Chronic (4) Cocaine abuse Code(s): F14.10 - Cocaine abuse, uncomplicated Status: Chronic (5) ETOH abuse Code(s): F10.10 - Alcohol abuse, uncomplicated Status: Chronic (6) Dysphagia Code(s): R13.10 - Dysphagia, unspecified Status: Acute (2) Traumatic brain injury Qualifiers: Encounter type: subsequent encounter
[2018-05-11] MEDS: Oral Hygiene Kit OROPHARYNG SCH ×3 (03:20→18:54)
[2018-05-11] MEDS: Carboxymethylcellulose 0.5% Opth Drops 15 ML Bottle EACH EYE SCH ×2 (07:17→18:54)
[2018-05-11] MEDS: Topiramate 25 MG Tablet PO SCH ×2 (09:11→20:37)
[2018-05-11] MEDS: Sennosides Liq 8.8 MG/5 ML UDC NG/OG SCH ×2 (09:12→20:37)
[2018-05-11] MEDS: Folic Acid 1 MG Tablet PO SCH (09:12)
--- NOTE | 2018-05-11 11:45 | P.HPIM ---
History of Present Illness Primary Care Physician: No Primary Care Physician - Diagnosis (1) Intracranial hemorrhage following injury (2) Traumatic brain injury (3) Fall (4) Cocaine abuse (5) ETOH abuse (6) Dysphagia Inpatient Certification: I certify that the inpatient services were ordered in accordance with Medicare regulations governing the order. This includes certification that hospital inpatient services are reasonable and necessary and in the case of services not specified as inpatient-only under 42 CFR 419.22(n), that they are appropriately provided as inpatient services in accordance to with the 2-midnight benchmark under 43 CFR 412.3(e) [facility] - History History Provided By: Patient, Medical Record - Medical / Surgical Hx Neg / Unobtainable Medical Problems Denied: Unable to Obtain (not cooperating) - Medical History Medical History: Medical History (Last Reviewed 05/10/18 @ 08:13 by [facility]) Asthma COPD (chronic obstructive pulmonary disease) Tobacco abuse - Surgical History Surgical History: Surgical History (Last Reviewed 05/10/18 @ 08:13 by [facility]) No history of previous surgery - Tobacco History Smoking Status: Light tobacco smoker Tobacco Type: Cigarettes Cigarettes Per Day: 0.5 - Alcohol History How Often Do You Have a Drink Containing Alcohol: 4 or more times a week - Substance Use History Substance History: Active Abuse Medications and Allergies Active Medications: Active Medications Acetaminophen (Tylenol Liq) 650 mg NG/OG Q6H PRN PRN Reason: HEADACHE OR TEMP > 101 F Last Admin: 04/30/18 15:12 Dose: 650 mg Hydrocodone Bitart/Acetaminophen ([place] 7.5/325) 1 tab G-TUBE Q6H PRN PRN Reason: PAIN SCALE 6 TO 10 Last Admin: 05/11/18 09:11 Dose: 1 tab Al Hydrox/Mg Hydrox/Simethicone (Mag-Al Plus Susp Liq) 30 ml PO Q6H PRN PRN Reason: DYSPEPSIA Albuterol (Albuterol Neb (Prn)) 2.5 mg NEB Q2HR NEB PRN PRN Reason: WHEEZING Last Admin: 03/17/18 03:27 Dose: 2.5 mg Artificial Tears (Refresh Tears 0.5% Opth Drops) 1 drop EACH EYE Q8HR [facility] Last Admin: 05/11/18 07:17 Dose: Not Given Folic Acid (Folic Acid) 1 mg PO DAILY [facility] Last Admin: 05/11/18 09:12 Dose: 1 mg Lansoprazole (Prevacid Solutab) 30 mg NG/OG DAILY [facility] Last Admin: 05/11/18 09:12 Dose: 30 mg Levetiracetam (Keppra Liq) 500 mg NG/OG BID [facility] Last Admin: 05/11/18 09:11 Dose: 500 mg Menthol ([place]) 1 lozenge BUCCAL UNSCH PRN PRN Reason: SORE THROAT Last Admin: 04/17/18 22:30 Dose: 1 lozenge Multivitamins (Theragran) 1 tab PO DAILY [facility] Last Admin: 05/11/18 09:12 Dose: 1 tab Ondansetron HCl (Zofran Inj) 4 mg IV.PUSH Q6H PRN PRN Reason: NAUSEA OR VOMITING Promethazine HCl (Phenergan Inj) 25 mg IM Q4H PRN PRN Reason: NAUSEA OR VOMITING Sennosides (Senna Liq) 8.8 mg NG/OG BID [facility] Last Admin: 05/11/18 09:12 Dose: 8.8 mg Sodium Chloride (Ns Flush) 2 ml IV.FLUSH UNSCH PRN PRN Reason: FLUSH AFTER USING IV ACCESS Sodium Chloride (Ns Flush) 2 ml IV.FLUSH BID [facility] Last Admin: 05/11/18 09:12 Dose: 2 ml Temazepam (Restoril) 7.5 mg G-TUBE HS PRN PRN Reason: INSOMNIA Last Admin: 05/06/18 21:02 Dose: 7.5 mg Thiamine HCl (Vitamin B1) 100 mg PO BID [facility] Last Admin: 05/11/18 09:11 Dose: 100 mg Topiramate (Topamax) 50 mg PO BID [facility] Last Admin: 05/11/18 09:11 Dose: 50 mg Allergies Allergy/AdvReac Type Severity Reaction Status Date / Time No Known Allergies Allergy Unknown Uncoded 03/03/18 20:43 Home Medications Medication Instructions Recorded Confirmed Type aspirin 325 mg PO DAILY 03/05/18 03/05/18 History Exam Vital signs: Vital Signs 05/10/18 12:00 05/10/18 16:00 05/10/18 20:00 Temperature 97.7 F 97.2 F L 98.2 F Pulse Rate 85 101 H 95 H Respiratory Rate 14 16 18 Blood Pressure 143/99 H 138/95 H 125/89 Pulse Oximetry 98 97 98 05/11/18 00:00 05/11/18 04:00 05/11/18 08:00 Temperature 98 F 98.2 F 97.8 F Pulse Rate 88 93 H 93 H Respiratory Rate 18 18 16 Blood Pressure 127/81 126/80 128/79 Pulse Oximetry 97 99 98 Intake & Output 05/10/18 05/11/18 05/11/18 18:59 06:59 18:59 Intake Total 340 / 340 997 / 997 Balance 340 / 340 997 / 997 Weight 51.3 kg Intake: Oral 240 / 240 Tube Feeding 847 / 847 Tube Irrigant 100 / 100 150 / 150 Other: # Incontinent Voids 2 Date of Last Bowel Movement 05/09/18 05/09/18 Results - Labs CBC & Chem 7: 05/04/18 06:56 05/04/18 06:56 Caprini VTE Risk Assessment Mannierini Risk Assessment Model: Point Value = 1 Point Value = 2 Point Value = 3 Point Value = 5 Age 41-60 Minor surgery BMI > 25 kg/m2 Swollen legs Varicose veins or History of unexplained or recurrent spontaneous Oral contraceptives or hormone replacement Sepsis (< 1 month) Serious lung disease, including pneumonia (< 1 month) Abnormal pulmonary function Acute myocardial infarction Congestive heart failure (< 1 month) History of inflammatory bowel disease Medical patient at bed rest Age 61-74 Arthroscopic surgery Major open surgery (> 45 min) Laparoscopic surgery (> 45 min) Malignancy Confined to bed (> 72 hours) Immobilizing plaster cast Central venous access Age >= 75 History of VTE Family history of VTE Factor V Leiden Prothrombin [id number] Lupus anticoagulant Anticardiolipin antibodies Elevated serum homocysteine Heparin-induced thrombocytopenia Other congenital or acquired thrombophilia Stroke (< 1 month) Elective arthroplasty Hip, pelvis, or leg fracture Acute spinal cord injury (< 1 month) Prophylaxis Regimen: Total Risk Factor Score Risk Level Prophylaxis Regimen 0-1 Low Early ambulation 2 Moderate Order ONE of the following: *Sequential Compression Device (SCD) *Heparin 5000 units SQ BID 3-4 Higher Order ONE of the following medications: *Heparin 5000 units SQ TID *Enoxaparin/Lovenox 40 mg SQ daily (WT < 150 kg, CrCl > 30 mL/min) *Enoxaparin/Lovenox 30 mg SQ daily (WT < 150 kg, CrCl > 10-29 mL/min) *Enoxaparin/Lovenox 30 mg SQ BID (WT < 150 kg, CrCl > 30 mL/min) AND/OR *Sequential Compression Device (SCD) 5 or more Highest Order ONE of the following medications: *Heparin 5000 units SQ TID (Preferred with Epidurals) *Enoxaparin/Lovenox 40 mg SQ daily (WT < 150 kg, CrCl > 30 mL/min) *Enoxaparin/Lovenox 30 mg SQ daily (WT < 150 kg, CrCl > 10-29 mL/min) *Enoxaparin/Lovenox 30 mg SQ BID (WT < 150 kg, CrCl > 30 mL/min) AND *Sequential Compression Device (SCD) Assessment and Plan - Assessment (1) Intracranial hemorrhage following injury Code(s): S06.309A - Unspecified focal traumatic brain injury with loss of consciousness of unspecified duration, initial encounter Status: Acute (2) Traumatic brain injury Code(s): S06.9X9A - Unspecified intracranial injury with loss of consciousness of unspecified duration, initial encounter Status: Acute (3) Fall Code(s): W19.XXXA - Unspecified fall, initial encounter Status: Chronic (4) Cocaine abuse Code(s): F14.10 - Cocaine abuse, uncomplicated Status: Chronic (5) ETOH abuse Code(s): F10.10 - Alcohol abuse, uncomplicated Status: Chronic (6) Dysphagia Code(s): R13.10 - Dysphagia, unspecified Status: Acute (2) Traumatic brain injury Qualifiers: Encounter type: subsequent encounter
--- NOTE | 2018-05-11 11:49 | P.PNIM ---
Subjective Interval history: in no distress. no change clinically. Physical Exam Vital signs: Vital Signs 05/10/18 12:00 05/10/18 16:00 05/10/18 20:00 Temperature 97.7 F 97.2 F L 98.2 F Pulse Rate 85 101 H 95 H Respiratory Rate 14 16 18 Blood Pressure 143/99 H 138/95 H 125/89 Pulse Oximetry 98 97 98 05/11/18 00:00 05/11/18 04:00 05/11/18 08:00 Temperature 98 F 98.2 F 97.8 F Pulse Rate 88 93 H 93 H Respiratory Rate 18 18 16 Blood Pressure 127/81 126/80 128/79 Pulse Oximetry 97 99 98 Intake & Output 05/10/18 05/11/18 05/11/18 18:59 06:59 18:59 Intake Total 340 / 340 997 / 997 Balance 340 / 340 997 / 997 Weight 51.3 kg Intake: Oral 240 / 240 Tube Feeding 847 / 847 Tube Irrigant 100 / 100 150 / 150 Other: # Incontinent Voids 2 Date of Last Bowel Movement 05/09/18 05/09/18 - Constitutional no acute distress (no change clinically.) - Urinary Catheter Management Indwelling Temp Sensing Catheter Cath placed during this visit: yes, but has since been removed by the nurse Reason for continuing: Not indwelling catheter Insertion date: 03/12/18 Insertion time: 05:30 Removal date: 03/25/18 Removal time: 18:00 Indwelling Urethral Catheter Cath placed during this visit: yes, but has since been removed by the nurse Reason for continuing: Decision to DC catheter Insertion date: 03/22/18 Insertion time: 17:30 Removal date: 03/25/18 Removal time: 18:00 Condom Cath placed during this visit: yes, but has since been removed by the nurse Reason for continuing: Not indwelling catheter Removal date: 03/25/18 Removal time: 18:00 Results - Labs CBC & Chem 7: 05/04/18 06:56 05/04/18 06:56 - Procedures PEG 7 -25 right decompressive craniectomy 03/22/18 with placement of ICP monitor by Dr. Chacko, pr'ed 03/23/18 03/22/18 Right frontotemporal parietal decompressive craniectomy and Duroplasty 03/22/18 Left frontal bur hole with placement of an intracranial pressure monitor Assessment and Plan - Assessment (1) Intracranial hemorrhage following injury Code(s): S06.309A - Unspecified focal traumatic brain injury with loss of consciousness of unspecified duration, initial encounter Status: Acute (2) Traumatic brain injury Code(s): S06.9X9A - Unspecified intracranial injury with loss of consciousness of unspecified duration, initial encounter Status: Acute (3) Fall Code(s): W19.XXXA - Unspecified fall, initial encounter Status: Chronic (4) Cocaine abuse Code(s): F14.10 - Cocaine abuse, uncomplicated Status: Chronic (5) ETOH abuse Code(s): F10.10 - Alcohol abuse, uncomplicated Status: Chronic (6) Dysphagia Code(s): R13.10 - Dysphagia, unspecified Status: Acute - Plan Right frontal IPH 53.3 cm. SAH bilat frontal lobes, right parietal, temporal. Right frontotemporal SDH status post emergency craniectomy for decompression for worsening midline shift right to left 2.1 cm s/p Fall, ?syncope Daily alcohol use/Cocaine abuse - s/p Right frontotemporal parietal decompressive craniectomy and Duroplasty by Dr. Chacko. Plan for cranioplasty soon- per neurosurgery. - repeat head CT 04/04 with improvement - Continue on Keppra - no seizure activity reported - Continue with PT/OT - PT recommends rehab at discharge - Seizure precautions Palliative care following, appreciate assistance. Per note, patient has improved tremendously. Feels he has capacity to make medical decisions with support of family. Recommended psych consult to assess capacity. Psychiatry consulted, appreciate assistance. - Dr. Narvaez following, appreciate assistance Headache repeat CT head 04/[address] head 04/26 shows stable exam with large right craniectomy defect and 5 mm midline shift, no hemorrhage CTA head negative -Neurology following, appreciate assistance. Started on Topamax 50mg BID for likely vascular component. Dysphagia s/p PEG tube placement 03/30/18 - ST re-evaluated and patient given puree diet with nectar thickened liquids. - Calorie count completed, inadequate intake. 04/20 TF resumed - Jevity 1.5 at 75 mls per hour 12 hours at night 7pm to 7am. 04/25 patient reevaluated by dietitian, recommends continued nighttime feeding and supplement Acute respiratory failure secondary to failure to protect airway-resolved extubated MRSA pneumonia, status post treatment with IV vancomycin and Rocephin Tobacco abuse Extubated 03/25/2018 - Continue as needed duo nebs - continue to monitor respiratory status - Supplemental oxygen as needed DVT prophylaxis SCDs No chemoprophylaxis anticoagulation due to recent intracranial bleed Discharge Planning: needs placement/ awaiting cranioplasty.
[2018-05-12] MEDS: Carboxymethylcellulose 0.5% Opth Drops 15 ML Bottle EACH EYE SCH ×4 (01:39→21:02)
[2018-05-12] MEDS: Oral Hygiene Kit OROPHARYNG SCH ×5 (01:39→23:32)
[2018-05-12] MEDS: Folic Acid 1 MG Tablet PO SCH (09:39)
[2018-05-12] MEDS: Topiramate 25 MG Tablet PO SCH ×2 (09:40→21:00)
[2018-05-12] MEDS: Sennosides Liq 8.8 MG/5 ML UDC NG/OG SCH ×2 (09:41→21:01)
--- NOTE | 2018-05-12 11:43 | P.PNIM ---
Subjective Interval history: in no distress. clinically no change. Physical Exam Vital signs: Vital Signs 05/11/18 16:00 05/11/18 20:00 05/12/18 00:00 Temperature 97.4 F L 97.8 F 97.8 F Pulse Rate 87 84 90 Respiratory Rate 14 18 17 Blood Pressure 130/90 141/89 H 129/96 H Pulse Oximetry 98 98 95 05/12/18 04:00 05/12/18 08:00 Temperature 98.2 F 98 F Pulse Rate 95 H 90 Respiratory Rate 18 14 Blood Pressure 120/82 134/91 H Pulse Oximetry 97 100 Intake & Output 05/11/18 05/12/18 05/12/18 18:59 06:59 18:59 Intake Total 440 / 440 Output Total 400 / 400 500 / 500 Balance 40 / 40 -500 / -500 Weight 53.2 kg Intake: Oral 240 / 240 Tube Irrigant 200 / 200 Output: Urine 500 / 500 Urine Amount (Catheter) 400 / 400 Condom 400 / 400 Other: Date of Last Bowel Movement 05/09/18 05/10/18 05/10/18 - Constitutional no acute distress (no change.) - Urinary Catheter Management Indwelling Temp Sensing Catheter Cath placed during this visit: yes, but has since been removed by the nurse Reason for continuing: Not indwelling catheter Insertion date: 03/12/18 Insertion time: 05:30 Removal date: 03/25/18 Removal time: 18:00 Indwelling Urethral Catheter Cath placed during this visit: yes, but has since been removed by the nurse Reason for continuing: Decision to DC catheter Insertion date: 03/22/18 Insertion time: 17:30 Removal date: 03/25/18 Removal time: 18:00 Condom Cath placed during this visit: yes, but has since been removed by the nurse Reason for continuing: Not indwelling catheter Removal date: 03/25/18 Removal time: 18:00 Results - Labs CBC & Chem 7: 05/04/18 06:56 05/04/18 06:56 - Procedures PEG 7 -25 right decompressive craniectomy 03/22/18 with placement of ICP monitor by Dr. Chacko, ut'ed 03/23/18 03/22/18 Right frontotemporal parietal decompressive craniectomy and Duroplasty 03/22/18 Left frontal bur hole with placement of an intracranial pressure monitor Assessment and Plan - Assessment (1) Intracranial hemorrhage following injury Code(s): S06.309A - Unspecified focal traumatic brain injury with loss of consciousness of unspecified duration, initial encounter Status: Acute (2) Traumatic brain injury Code(s): S06.9X9A - Unspecified intracranial injury with loss of consciousness of unspecified duration, initial encounter Status: Acute (3) Fall Code(s): W19.XXXA - Unspecified fall, initial encounter Status: Chronic (4) Cocaine abuse Code(s): F14.10 - Cocaine abuse, uncomplicated Status: Chronic (5) ETOH abuse Code(s): F10.10 - Alcohol abuse, uncomplicated Status: Chronic (6) Dysphagia Code(s): R13.10 - Dysphagia, unspecified Status: Acute - Plan Right frontal IPH 53.3 cm. SAH bilat frontal lobes, right parietal, temporal. Right frontotemporal SDH status post emergency craniectomy for decompression for worsening midline shift right to left 2.1 cm s/p Fall, ?syncope Daily alcohol use/Cocaine abuse - s/p Right frontotemporal parietal decompressive craniectomy and Duroplasty by Dr. Chacko. Plan for cranioplasty soon- per neurosurgery. - repeat head CT 04/04 with improvement - Continue on Keppra - no seizure activity reported - Continue with PT/OT - PT recommends rehab at discharge - Seizure precautions Palliative care following, appreciate assistance. Per note, patient has improved tremendously. Feels he has capacity to make medical decisions with support of family. Recommended psych consult to assess capacity. Psychiatry consulted, appreciate assistance. - Dr. Narvaez following, appreciate assistance Headache repeat CT head 04/[address] head 04/26 shows stable exam with large right craniectomy defect and 5 mm midline shift, no hemorrhage CTA head negative -Neurology following, appreciate assistance. Started on Topamax 50mg BID for likely vascular component. Dysphagia s/p PEG tube placement 03/30/18 - ST re-evaluated and patient given puree diet with nectar thickened liquids. - Calorie count completed, inadequate intake. 04/20 TF resumed - Jevity 1.5 at 75 mls per hour 12 hours at night 7pm to 7am. 04/25 patient reevaluated by dietitian, recommends continued nighttime feeding and supplement Acute respiratory failure secondary to failure to protect airway-resolved extubated MRSA pneumonia, status post treatment with IV vancomycin and Rocephin Tobacco abuse Extubated 03/25/2018 - Continue as needed duo nebs - continue to monitor respiratory status - Supplemental oxygen as needed DVT prophylaxis SCDs No chemoprophylaxis anticoagulation due to recent intracranial bleed Discharge Planning: needs placement/ awaiting cranioplasty. (2) Traumatic brain injury Qualifiers: Encounter type: subsequent encounter
[2018-05-12] MEDS ORDERED: Chlorhexidine 4% Topical 120 APPLIC/120 ML Bottle TOPICAL ONE (12:11)
--- NOTE | 2018-05-12 12:17 | P.PNNS ---
Subjective Interval history: 05/12: patient scheduled for cranioplasty tomorrow morning. <Jodi Hyman - Last Filed: 05/12/18 15:44> Physical Exam Vital signs: Vital Signs 05/11/18 16:00 05/11/18 20:00 05/12/18 00:00 Temperature 97.4 F L 97.8 F 97.8 F Pulse Rate 87 84 90 Respiratory Rate 14 18 17 Blood Pressure 130/90 141/89 H 129/96 H Pulse Oximetry 98 98 95 05/12/18 04:00 05/12/18 08:00 Temperature 98.2 F 98 F Pulse Rate 95 H 90 Respiratory Rate 18 14 Blood Pressure 120/82 134/91 H Pulse Oximetry 97 100 Intake & Output 05/11/18 05/12/18 05/12/18 18:59 06:59 18:59 Intake Total 440 / 440 Output Total 400 / 400 500 / 500 Balance 40 / 40 -500 / -500 Weight 53.2 kg Intake: Oral 240 / 240 Tube Irrigant 200 / 200 Output: Urine 500 / 500 Urine Amount (Catheter) 400 / 400 Condom 400 / 400 Other: Date of Last Bowel Movement 05/09/18 05/10/18 05/10/18 Narrative: awake, NAD conversing slightly right flap well decompressed heart regular rate lungs clear - Urinary Catheter Management Indwelling Temp Sensing Catheter Cath placed during this visit: yes, but has since been removed by the nurse Reason for continuing: Not indwelling catheter Insertion date: 03/12/18 Insertion time: 05:30 Removal date: 03/25/18 Removal time: 18:00 Indwelling Urethral Catheter Cath placed during this visit: yes, but has since been removed by the nurse Reason for continuing: Decision to DC catheter Insertion date: 03/22/18 Insertion time: 17:30 Removal date: 03/25/18 Removal time: 18:00 Condom Cath placed during this visit: yes, but has since been removed by the nurse Reason for continuing: Not indwelling catheter Removal date: 03/25/18 Removal time: 18:00 <Jodi Hyman - Last Filed: 05/12/18 15:44> Vital signs: Vital Signs 05/12/18 15:35 05/12/18 16:00 05/12/18 20:00 Temperature 97.6 F 97.4 F L Pulse Rate 91 H 89 Respiratory Rate 14 18 16 Blood Pressure 120/78 128/90 Pulse Oximetry 97 89 L 05/12/18 22:35 05/13/18 00:00 05/13/18 04:00 Temperature 97.6 F 97.5 F L Pulse Rate 89 83 Respiratory Rate 18 18 18 Blood Pressure 126/84 121/80 Pulse Oximetry 99 96 05/13/18 06:00 05/13/18 08:00 05/13/18 10:32 Temperature 97.2 F L Pulse Rate 88 Respiratory Rate 18 14 18 Blood Pressure 124/89 Pulse Oximetry 100 05/13/18 12:00 Temperature 98 F Pulse Rate 90 Respiratory Rate 16 Blood Pressure 164/108 H Pulse Oximetry 100 Intake & Output 05/12/18 05/13/18 05/13/18 18:59 06:59 18:59 Intake Total 0 / 0 Output Total 400 / 400 400 / 400 Balance -400 / -400 -400 / -400 Weight 51.4 kg Intake: Oral 0 / 0 Output: Urine 400 / 400 400 / 400 Other: Date of Last Bowel Movement 05/10/18 05/13/18 05/13/18 # Bowel Movements 1 # Incontinent Bowel Movements 1 - Urinary Catheter Management Indwelling Temp Sensing Catheter Cath placed during this visit: no Indwelling Urethral Catheter Cath placed during this visit: no Condom Cath placed during this visit: no <Luis Chacko - Last Filed: 05/13/18 14:49> Assessment and Plan - Plan Impression: 62 y/o male with increased right intracerebral edema with significant 2 cm midline shift, he underwent right decompressive craniectomy 03/22/18 with placement of ICP monitor by Dr. Chacko, co'ed 03/23/18 right bone flap well decompressed, doing well neurologically Plan: NPO midnight tonight, consents in chart <Jodi Hyman - Last Filed: 05/12/18 15:44> - Plan The cranioplasty is medically necessary for his safety. unable to locate family\ Discussed in detail with dr ford <Luis Chacko - Last Filed: 05/13/18 14:49>
[2018-05-12] MEDS ORDERED: ceFAZolin 2 GM/NS 100 ML IV; Q8H IV.SIG SCH ×2 (13:00)
--- NOTE | 2018-05-12 13:30 | P.PNPAL ---
Reason for Visit Reason for visit: a. To assist with evaluation and management of symptoms including:pain, anxiety b. To assist medical decision maker(s) with: better understanding of current medical conditions; weighing benefits/burdens of medical treatment options; making medical treatment decisions. Subjective Subjective/Interval History: Pt seen today to follow up on comfort, goals s/p neuropsych evaluation Dr Narvaez notes pt : flat/disconnected, at risk for agitation/restlessness/impulsivity . Also noted pt expected to require custodial placement for safety/impaired judgement which may not improve with treatment. Continues on PO diet, plus TF at night. He has intermittently reported nausea he relates to TF. He has had limited motivation/participation with PT, OT. Reporting pain LUE, LLE. Was planned for cranioplasty to replace boneflap last week, has been rescheduled for tomorrow 05/13/18. No new labs or imaging. Medicaid pending. No discharge plans yet. Pt seen in room no visitors present. He is alert, mostly oriented. He has some insight into hospitalization. Very flat. He knows he is planned for surgery tomorrow to replace his bone flap. He complains that he feels like his "shoulder is disconnected ". He reports ongoing sharp pain to his left upper extremity from the shoulder down his arm, as well as to his left leg. He refuses to let me examine or attempt range of motion with left side. He refuses to move it to my commands. (has been using/moving w PT) To visual exam no gross abnormalities noted. He has been noted to be ambulatory with PT and using the left side in the past few weeks reported pain. Possible this is related to decreased range of motion, decreased use? He has been using [place] once to twice per day. Nursing has been notified of his pain, and is arriving w PRN medication. He tells me his family has been coming to see him. He asks me to call his son Wilson to tell him about surgery planned tomorrow. Following exam call to son, [place]. Objective Vital Signs: Vital Signs 05/11/18 16:00 05/11/18 20:00 05/12/18 00:00 Temperature 97.4 F L 97.8 F 97.8 F Pulse Rate 87 84 90 Respiratory Rate 14 18 17 Blood Pressure 130/90 141/89 H 129/96 H Pulse Oximetry 98 98 95 05/12/18 04:00 05/12/18 08:00 Temperature 98.2 F 98 F Pulse Rate 95 H 90 Respiratory Rate 18 14 Blood Pressure 120/82 134/91 H Pulse Oximetry 97 100 Intake & Output 05/11/18 05/12/18 05/12/18 18:59 06:59 18:59 Intake Total 440 / 440 Output Total 400 / 400 500 / 500 Balance 40 / 40 -500 / -500 Weight 53.2 kg Intake: Oral 240 / 240 Tube Irrigant 200 / 200 Output: Urine 500 / 500 Urine Amount (Catheter) 400 / 400 Condom 400 / 400 Other: Date of Last Bowel Movement 05/09/18 05/10/18 05/10/18 Physical Exam: CONSTITUTIONAL/GENERAL: This is a frail 62 year old male. Withdrawn, limited engagement /flat SKIN: No jaundice, rashes, or lesions. Well-healed cranial incision right head , obvious concave area from right bone flap removal. nurse applied soft helmet HEAD: right craniotomy, asymmetrical. EYES: pupils equal, reactive. no injection or drainage CARDIOVASCULAR: Regular rate and rhythm without murmur. No JVD. Peripheral pulses symmetric. RESPIRATORY/CHEST: Symmetric, unlabored respirations. Clear to auscultation. Breath sounds equal bilaterally. On room air. GASTROINTESTINAL: Abdomen soft, non-tender, nondistended. peg tube in place. Site asymptomatic. NEUROLOGICAL: Awake and alert. Oriented 23. Reluctant to engage in conversation. Appears to have some limited insight into hospitalization. Follows some commands. Moves rt extremities, refuses to move JEAN PIERRE, LLE says it hurts. PSYCHIATRIC: flat Diagnostic Tests Result Diagrams: 05/04/18 06:56 05/04/18 06:56 Assessment and Plan - Disease Oriented Problem List (1) SDH (subdural hematoma) Comment: Right frontal intraparenchymal hemorage s/p fall. Underwent decompressive creniectomy and duroplasty 03/23/2018 Dr. Chacko. (2) MRSA pneumonia Comment: Had been intubated for airway protection and for thick secretions. Pt extubated 03/25 (3) Cocaine abuse (4) Tobacco abuse (5) COPD (chronic obstructive pulmonary disease) (6) Asthma - Symptom Scale (1) Head ache Comment: did not quantify and not cooperative to characterize. Pertinent Non-Medical Issues: Psychosocial:worked in [employer]. hx of etoh drug abuse. Has 2 chilren, on Daughter (i do not have name or contact at this point) and Son Wilson Jimenez [phone] Spiritual:did not disclose Legal:He had stated he want son Wilson Jimenez has health care surrogate, but was not very cooperative, and did not want to designate health care surrogate today Ethical issues impacting care: Important Contacts: Son Wilson Jimenez [phone] Daughter Prognosis: Pt is 62 male (copd/asthma/etoh/tobacco/coccaine abuse) who had syncopy, fell and hit his head. He had a 5x 3 right frontal lobe hemorrhage. Initially it was medical managment, but subsequent ct and neuro status worsened. 03/11 patient was intubated. 03/21: CT Head significant worsening of the [id number] midline shift frontal region, now measuring 2.1 cm, decreasing density of r frontal hematoma. 03/22 pt underwent right frontotemporal parietal decompressive craniectomy and duroplasty by Dr. Chacko. Eventually he was able to become alert enough and protect his airway enough to undergo medical extubation. He pulled his NG tube, so was peg tube was placed on 03/30. Neurologically he seem to be making progress with hospitalist documenting he is ambulating with assisstance in a walker. He has improve tremedously and I think if he is compliant there is a good chance he can get strong enough to stop tube feedings and improve. I will check with neurosurgery but I feel his prognosis is > 6 months at this point if he was compliant. Code Status: Full Code (by default) Plan: == capacity-mental status fluctuates status post TBI. He appears at the very least can participate in making medical decisions, with the support of family. He completed verbal designation of son Wilson as HCS == code status: full code. == Goals of care: Patient appears to have made general improvement during prolonged hospital course. Likely would continue to make slow improvement if able to cooperate with ongoing aggressive treatments. May not be appropriate for hospice. Patient withdrawn and with very little willingness to engage and participate. During prior palliative care interaction with patient's son who would be 1 of the proxies, goals were aggressive, not comfort oriented, not interested in hospice . == Symptom: --BATISTA- s/p surgery, intraparenchymal bleed. he has PRN Tylenol available, as well as prn norco. last used tylenol 04/30, [place] yesterday. Has been using norco 1-2x per day. Has been started on Toprol for BATISTA per neurology, BATISTA does not seem changed -- c/o LUE, LLE pain- using norco 1-2x per day. pain may be r/t decreased use, decreased ROM? He refuses to move them today for my assessment. --nausea-Prev. Reports intermittent nausea. He is unable to further quantify or qualify. Denies today. receiving tube feeding at night. PO intake fluctuates , eats most of one meal, 25% of another. --flat/unengaged in rehab efforts- r/t brain injury. neuropsych rec. consider Amantadine . expected to require custodial placement == Palliative care will continue to follow PRN during hospital course as condition evolves, to assist patient/decision-maker with understanding of medical conditions, weighing benefits/burdens of treatment options, for clarification of goals of treatment. Additionally will assist with any symptoms of palliative concern PRN Attestation Attestation: To help prompt me to consider important information that might be impacting today's encounter and assessment, information from prior notes written by myself or my colleagues may have been "brought forward" into today's note. My signature on this note, however, is an attestation that I personally performed the exam, history, and/or decision-making noted today, and, unless otherwise indicated, the interactions with patient, family, and staff as well as the review of records all occurred today. I also attest that the listed assessment and stated plan reflect my best clinical judgment today based on the combination of historical information, prior notes, and today's exam/ interactions. When time spent is documented, it refers only to time spent today by the signer, or if indicated, combined time spent today by collaborating physician/nurse practitioner.
[2018-05-13] MEDS: Oral Hygiene Kit OROPHARYNG SCH ×3 (03:00→17:53)
[2018-05-13] MEDS: Carboxymethylcellulose 0.5% Opth Drops 15 ML Bottle EACH EYE SCH ×3 (05:15→21:20)
[2018-05-13] MEDS ORDERED: ceFAZolin 2 GM Premix Inj 2 GM/50 ML PIGGYBACK IV.SIG PRN (06:00)
[2018-05-13] MEDS ORDERED: Chlorhexidine Gluconate 2% 1 Pack (2 Cloths) TOPICAL ONE (07:09)
[2018-05-13] MEDS ORDERED: Sodium Chlor 0.9% Inj 500 ML IV.SIG SCH (08:00)
[2018-05-13] MEDS: Metoprolol Tartrate 25 MG Tablet PO ONE ×2 (08:28→08:36)
[2018-05-13] MEDS: Topiramate 25 MG Tablet PO SCH ×2 (08:28→23:17)
[2018-05-13] MEDS: Sennosides Liq 8.8 MG/5 ML UDC NG/OG SCH ×2 (08:28→21:20)
[2018-05-13] MEDS: Folic Acid 1 MG Tablet PO SCH (08:28)
[2018-05-13] MEDS ORDERED: Lidocaine 1%/Epinephrine 1:100,000 Inj 30 ML Vial ONE (08:39)
[2018-05-13] MEDS ORDERED: Gelatin Size 100 Topical Foam ONE (08:39)
[2018-05-13] MEDS ORDERED: Thrombin Topical Soln 5,000 UNIT Vial TOPICAL ONE ×2 (08:45→14:06)
--- NOTE | 2018-05-13 12:37 | P.PNIM ---
Subjective Interval history: in no distress. looks comfortable. Physical Exam Vital signs: Vital Signs 05/12/18 15:35 05/12/18 16:00 05/12/18 20:00 Temperature 97.6 F 97.4 F L Pulse Rate 91 H 89 Respiratory Rate 14 18 16 Blood Pressure 120/78 128/90 Pulse Oximetry 97 89 L 05/12/18 22:35 05/13/18 00:00 05/13/18 04:00 Temperature 97.6 F 97.5 F L Pulse Rate 89 83 Respiratory Rate 18 18 18 Blood Pressure 126/84 121/80 Pulse Oximetry 99 96 05/13/18 06:00 05/13/18 08:00 05/13/18 10:32 Temperature 97.2 F L Pulse Rate 88 Respiratory Rate 18 14 18 Blood Pressure 124/89 Pulse Oximetry 100 Intake & Output 05/12/18 05/13/18 05/13/18 18:59 06:59 18:59 Intake Total 0 / 0 Output Total 400 / 400 400 / 400 Balance -400 / -400 -400 / -400 Weight 51.4 kg Intake: Oral 0 / 0 Output: Urine 400 / 400 400 / 400 Other: Date of Last Bowel Movement 05/10/18 05/13/18 05/13/18 # Bowel Movements 1 # Incontinent Bowel Movements 1 - Constitutional no acute distress - Routine Respiratory Exam Present: CTA bilaterally - Routine Cardiovascular Exam Present: RRR - Routine Abdominal Exam Present: soft - Urinary Catheter Management Indwelling Temp Sensing Catheter Cath placed during this visit: yes, but has since been removed by the nurse Reason for continuing: Not indwelling catheter Insertion date: 03/12/18 Insertion time: 05:30 Removal date: 03/25/18 Removal time: 18:00 Indwelling Urethral Catheter Cath placed during this visit: yes, but has since been removed by the nurse Reason for continuing: Decision to DC catheter Insertion date: 03/22/18 Insertion time: 17:30 Removal date: 03/25/18 Removal time: 18:00 Condom Cath placed during this visit: yes, but has since been removed by the nurse Reason for continuing: Not indwelling catheter Removal date: 03/25/18 Removal time: 18:00 Results - Labs CBC & Chem 7: 05/04/18 06:56 05/04/18 06:56 - Procedures PEG 7 -25 right decompressive craniectomy 7/17/18 with placement of ICP monitor by Dr. Chacko, il'ed 03/23/18 03/22/18 Right frontotemporal parietal decompressive craniectomy and Duroplasty 03/22/18 Left frontal bur hole with placement of an intracranial pressure monitor Assessment and Plan - Assessment (1) Intracranial hemorrhage following injury Code(s): S06.309A - Unspecified focal traumatic brain injury with loss of consciousness of unspecified duration, initial encounter Status: Acute (2) Traumatic brain injury Code(s): S06.9X9A - Unspecified intracranial injury with loss of consciousness of unspecified duration, initial encounter Status: Acute (3) Fall Code(s): W19.XXXA - Unspecified fall, initial encounter Status: Chronic (4) Cocaine abuse Code(s): F14.10 - Cocaine abuse, uncomplicated Status: Chronic (5) ETOH abuse Code(s): F10.10 - Alcohol abuse, uncomplicated Status: Chronic (6) Dysphagia Code(s): R13.10 - Dysphagia, unspecified Status: Acute - Plan Right frontal IPH 53.3 cm. SAH bilat frontal lobes, right parietal, temporal. Right frontotemporal SDH status post emergency craniectomy for decompression for worsening midline shift right to left 2.1 cm s/p Fall, ?syncope Daily alcohol use/Cocaine abuse - s/p Right frontotemporal parietal decompressive craniectomy and Duroplasty by Dr. Chacko. Plan for cranioplasty soon- per neurosurgery. - repeat head CT 04/04 with improvement - Continue on Keppra - no seizure activity reported - Continue with PT/OT - PT recommends rehab at discharge - Seizure precautions Palliative care following, appreciate assistance. Per note, patient has improved tremendously. Feels he has capacity to make medical decisions with support of family. Recommended psych consult to assess capacity. Psychiatry consulted, appreciate assistance. - Dr. Narvaez following, appreciate assistance Headache repeat CT head 04/[address] head 04/26 shows stable exam with large right craniectomy defect and 5 mm midline shift, no hemorrhage CTA head negative -Neurology following, appreciate assistance. Started on Topamax 50mg BID for likely vascular component. Dysphagia s/p PEG tube placement 03/30/18 - ST re-evaluated and patient given puree diet with nectar thickened liquids. - Calorie count completed, inadequate intake. 04/20 TF resumed - Jevity 1.5 at 75 mls per hour 12 hours at night 7pm to 7am. 04/25 patient reevaluated by dietitian, recommends continued nighttime feeding and supplement Acute respiratory failure secondary to failure to protect airway-resolved extubated MRSA pneumonia, status post treatment with IV vancomycin and Rocephin Tobacco abuse Extubated 03/25/2018 - Continue as needed duo nebs - continue to monitor respiratory status - Supplemental oxygen as needed DVT prophylaxis SCDs No chemoprophylaxis anticoagulation due to recent intracranial bleed Discharge Planning: needs placement/ awaiting cranioplasty. (2) Traumatic brain injury Qualifiers: Encounter type: subsequent encounter
[2018-05-13] MEDS ORDERED: Glycopyrrolate Inj 1 MG/5 ML Syringe IV.PUSH ONE (14:30)
[2018-05-13] MEDS ORDERED: Neostigmine Inj 5 MG/5 ML Syringe IV.PUSH ONE (14:30)
[2018-05-13] MEDS ORDERED: Bisacodyl 10 MG Supp RECTAL PRN (14:50)
[2018-05-13] MEDS ORDERED: Morphine Sulfate Inj 2 MG/ML Vial IV.PUSH PRN (14:50)
--- NOTE | 2018-05-13 15:52 | P.OP ---
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 A cranioplasty was indicated. The [id number] details of the procedure, indications, alternatives, risks and potential complications were fully discussed with the patient. The patient voiced requesting the procedure and provided informed consents. He was offered the alternative of delaying the procedure and continuing with nonsurgical management. DETAILS OF THE SURGICAL PROCEDURE The patient was endotracheally intubated and mechanically ventilated. A Dodge catheter, bilateral FADY hose and sequential compression devices were placed and kept throughout the procedure. The patient was positioned supine on a 3080 table over a soft mattress. The head was placed on a gel doughnut. All pressure points were carefully padded with egg crate mattress. The eyes were tapped shut after ointment was applied by the anesthesiologist to prevent corneal abrasion. A Ashwini hugger was placed over the exposed lower body to maintain control of the core body temperature. The old incision was marked and infiltrated with 1% lidocaine with epinephrine 1:100, 000 dilution. Rge right frontal temporal parietal region was prepped and draped in the usual sterile fashion. The skin incision was made with a #10 blade. Small cranial bleeders were controlled with the bipolar and Pepe clips were applied to the scalp edges. Then, the scalp flap was carefully elevated and retracted anteriorly, exposing the edges of the craniectomy defect. Hemostasis was secured and the incision was irrigated with a large amount of antibiotic solution. Then, the scalp was covered with a moist Ray-Kvng soaked in antibiotic solution and fishhooks were applied to the incision. The patient's craniotomy flap was carefully washed with antibiotic solution and a reconstructive cranioplasty was performed by carefully placing autologous bone fragments which were carefully secured using plates and screws. The flap was secured using [place] plates and 4 mm screws. A solid placement of the bone was achieved with good very cosmetic result. The incision was thoroughly irrigated with antibiotic solution. The closure was then performed in layers. The temporalis fascia was closed with interrupted 0 Vicryl sutures. The galea was closed with interrupted 3-0 Vicryl sutures. Jose were applied to the skin. A 7 mm Daniel-Rodriguez drain was left in the subgaleal space and externalized through the a separate stab incision and secured with 3-0 nylon. A sterile dressing was placed. At the end of the procedure the sponge, needle and instrument counts were all correct. Estimated blood loss was 70 cc. No blood transfusion was given. No intraoperative complications occurred. The patient received prophylactic antibiotics. The patient was then transferred to the recovery room in stable condition.
[2018-05-13] MEDS ORDERED: fentaNYL Citrate Inj 100 MCG/2 ML Ampul ONE (16:24)
[2018-05-13] MEDS: Sod Chloride 0.9% Inj 1,000 ML IV.CONT SCH (17:52)
[2018-05-13] MEDS: ceFAZolin 2 GM/NS 100 ML IV; Q8H IV.SIG SCH ×2 (21:18)
[2018-05-13] MEDS: Senna/Docusate Sodium 8.6/50 MG Tablet PO SCH (21:19)
[2018-05-13] MEDS ORDERED: ceFAZolin 2 GM Premix Inj 2 GM/50 ML PIGGYBACK IV.SIG SCH (22:00)
[2018-05-14] MEDS: Oral Hygiene Kit OROPHARYNG SCH ×5 (00:52→23:59)
[2018-05-14] MEDS: Sod Chloride 0.9% Inj 1,000 ML IV.CONT SCH ×3 (01:00→20:47)
[2018-05-14] MEDS: Carboxymethylcellulose 0.5% Opth Drops 15 ML Bottle EACH EYE SCH ×3 (05:47→23:59)
[2018-05-14] MEDS: ceFAZolin 2 GM/NS 100 ML IV; Q8H IV.SIG SCH ×4 (05:47→13:37)
--- NOTE | 2018-05-14 08:36 | P.PNIM ---
Subjective Interval history: f/u; s/p cranioplasty in no acute distress. has mild headache- otherwise no other complaints. d/w the RN and no acute issues over night. Physical Exam Vital signs: Vital Signs 05/13/18 10:32 05/13/18 12:00 05/13/18 16:20 Temperature 98 F 97.8 F Pulse Rate 90 96 H Respiratory Rate 18 16 16 Blood Pressure 164/108 H 155/95 H Pulse Oximetry 100 100 05/13/18 16:45 05/13/18 17:00 05/13/18 17:15 Temperature 98.1 F Pulse Rate 98 H 95 H 94 H Respiratory Rate 18 18 16 Blood Pressure 154/90 H 147/90 H 153/90 H Pulse Oximetry 100 100 100 05/13/18 18:00 05/13/18 19:00 05/13/18 20:00 Temperature 98.1 F 98.6 F 98.6 F Pulse Rate 96 H 110 H 113 H Respiratory Rate 16 9 L 9 L Blood Pressure 151/63 H 157/89 H 157/89 H Pulse Oximetry 96 99 99 05/13/18 20:54 05/13/18 21:00 05/13/18 22:00 Temperature Pulse Rate 101 H 100 H Respiratory Rate 14 14 10 L Blood Pressure 132/92 H 132/92 H 121/87 Pulse Oximetry 100 100 100 05/13/18 23:00 05/13/18 23:36 05/14/18 00:00 Temperature Pulse Rate 100 H 100 H 92 H Respiratory Rate 11 L 11 L Blood Pressure 127/86 127/86 Pulse Oximetry 100 100 05/14/18 01:36 05/14/18 03:00 05/14/18 04:00 Temperature 98.5 F Pulse Rate 92 H 99 H 97 H Respiratory Rate 13 Blood Pressure 121/88 129/84 Pulse Oximetry 99 100 05/14/18 05:00 Temperature Pulse Rate 99 H Respiratory Rate 14 Blood Pressure 119/86 Pulse Oximetry 100 Intake & Output 05/13/18 05/14/18 05/14/18 18:59 06:59 18:59 Intake Total 2500 / 2500 1160 / 1160 Output Total 0 / 0 Balance 2500 / 2500 1160 / 1160 Weight 52.9 kg Intake: IV 1000 / 1000 200 / 200 NS Inj 1,000 ML @ 100 mls/hr IV 1000 / 1000 .CONT .Q10H [facility] Rx#:[id number] Ancef Inj 2,000 MG In NS Inj 80 200 / 200 ML @ 200 mls/hr IV.SIG Q8H [facility] Rx#:[id number] Oral 960 / 960 Oral Supplement 0 / 0 Tube Feeding 0 / 0 Tube Irrigant 0 / 0 Water Bolus Amount 0 / 0 Anesthesia Amount 1500 / 1500 0 / 0 Output: Urine 0 / 0 Stool 0 / 0 Urine/Stool Mix 0 / 0 Wound Drainage 0 / 0 Head 0 / 0 Other: Post Void Residual 0 # Voids 0 # Incontinent Voids 0 # Urine Diapers 0 Date of Last Bowel Movement 05/13/18 05/13/18 # Bowel Movements 0 # Incontinent Bowel Movements 0 - Constitutional no acute distress - Routine HEENT Exam Comments: head covered with clean dressing. - Routine Respiratory Exam Present: CTA bilaterally - Routine Cardiovascular Exam Present: RRR - Routine Abdominal Exam Present: soft - Routine Extremities Exam Comments: no pedal edema. - Routine Neurological Exam Present: alert - Urinary Catheter Management Indwelling Temp Sensing Catheter Cath placed during this visit: yes, but has since been removed by the nurse Reason for continuing: Not indwelling catheter Insertion date: 03/12/18 Insertion time: 05:30 Removal date: 03/25/18 Removal time: 18:00 Indwelling Urethral Catheter Cath placed during this visit: yes, but has since been removed by the nurse Reason for continuing: Decision to DC catheter Insertion date: 03/22/18 Insertion time: 17:30 Removal date: 03/25/18 Removal time: 18:00 Condom Cath placed during this visit: yes, but has since been removed by the nurse Reason for continuing: Hourly intake/output Insertion date: 05/13/18 Insertion time: 14:30 Removal date: 03/25/18 Removal time: 18:00 Results - Labs CBC & Chem 7: 05/04/18 06:56 05/04/18 06:56 - Procedures PEG 7 - right decompressive craniectomy 03/22/18 with placement of ICP monitor by Dr. Chacko, ms'ed 03/23/18 03/22/18 Right frontotemporal parietal decompressive craniectomy and Duroplasty 03/22/18 Left frontal bur hole with placement of an intracranial pressure monitor Assessment and Plan - Assessment (1) Intracranial hemorrhage following injury Code(s): S06.309A - Unspecified focal traumatic brain injury with loss of consciousness of unspecified duration, initial encounter Status: Acute (2) Traumatic brain injury Code(s): S06.9X9A - Unspecified intracranial injury with loss of consciousness of unspecified duration, initial encounter Status: Acute (3) Fall Code(s): W19.XXXA - Unspecified fall, initial encounter Status: Chronic (4) Cocaine abuse Code(s): F14.10 - Cocaine abuse, uncomplicated Status: Chronic (5) ETOH abuse Code(s): F10.10 - Alcohol abuse, uncomplicated Status: Chronic (6) Dysphagia Code(s): R13.10 - Dysphagia, unspecified Status: Acute - Plan Right frontal IPH 53.3 cm. SAH bilat frontal lobes, right parietal, temporal. Right frontotemporal SDH status post emergency craniectomy for decompression for worsening midline shift right to left 2.1 cm s/p Fall, ?syncope Daily alcohol use/Cocaine abuse - s/p Right frontotemporal parietal decompressive craniectomy and Duroplasty by Dr. Chacko. and later s/p cranioplasty on 05/13/18. - Continue on Keppra - no seizure activity reported - Continue with PT/OT - PT recommends rehab at discharge - Seizure precautions Palliative care following, appreciate assistance. Feels he has capacity to make medical decisions with support of family. Recommended psych consult to assess capacity. Psychiatry consulted, appreciate assistance. - Dr. Narvaez following, appreciate assistance Headache repeat CT head 04/[address] head 04/26 shows stable exam with large right craniectomy defect and 5 mm midline shift, no hemorrhage CTA head negative -Neurology following, appreciate assistance. Started on Topamax 50mg BID for likely vascular component. Dysphagia s/p PEG tube placement 03/30/18 - ST re-evaluated and patient given puree diet with nectar thickened liquids. - Calorie count completed, inadequate intake. 04/20 TF resumed - Jevity 1.5 at 75 mls per hour 12 hours at night 7pm to 7am. 04/25 patient reevaluated by dietitian, recommends continued nighttime feeding and supplement Acute respiratory failure secondary to failure to protect airway-resolved extubated MRSA pneumonia, status post treatment with IV vancomycin and Rocephin Tobacco abuse Extubated 03/25/2018 - Continue as needed duo nebs - continue to monitor respiratory status - Supplemental oxygen as needed DVT prophylaxis SCDs No chemoprophylaxis anticoagulation due to intracranial bleed transfer to floor when ok with neurosurgery. Discharge Planning: needs placement. (2) Traumatic brain injury Qualifiers: Encounter type: subsequent encounter
[2018-05-14] MEDS: Senna/Docusate Sodium 8.6/50 MG Tablet PO SCH ×2 (09:15→20:39)
[2018-05-14] MEDS: Folic Acid 1 MG Tablet PO SCH (09:15)
[2018-05-14] MEDS: Sennosides Liq 8.8 MG/5 ML UDC NG/OG SCH ×2 (09:15→20:38)
[2018-05-14] MEDS: Topiramate 25 MG Tablet PO SCH ×2 (09:15→20:39)
--- NOTE | 2018-05-14 10:35 | P.PNNS ---
Subjective Interval history: patient without any issues, tolerating diet this am Physical Exam Vital signs: Vital Signs 05/13/18 12:00 05/13/18 16:20 05/13/18 16:45 Temperature 98 F 97.8 F Pulse Rate 90 96 H 98 H Respiratory Rate 16 16 18 Blood Pressure 164/108 H 155/95 H 154/90 H Pulse Oximetry 100 100 100 05/13/18 17:00 05/13/18 17:15 05/13/18 18:00 Temperature 98.1 F 98.1 F Pulse Rate 95 H 94 H 96 H Respiratory Rate 18 16 16 Blood Pressure 147/90 H 153/90 H 151/63 H Pulse Oximetry 100 100 96 05/13/18 19:00 05/13/18 20:00 05/13/18 20:54 Temperature 98.6 F 98.6 F Pulse Rate 110 H 113 H Respiratory Rate 9 L 9 L 14 Blood Pressure 157/89 H 157/89 H 132/92 H Pulse Oximetry 99 99 100 05/13/18 21:00 05/13/18 22:00 05/13/18 23:00 Temperature Pulse Rate 101 H 100 H 100 H Respiratory Rate 14 10 L 11 L Blood Pressure 132/92 H 121/87 127/86 Pulse Oximetry 100 100 100 05/13/18 23:36 05/14/18 00:00 05/14/18 01:36 Temperature 98.5 F Pulse Rate 100 H 92 H 92 H Respiratory Rate 11 L 13 Blood Pressure 127/86 121/88 Pulse Oximetry 100 99 05/14/18 03:00 05/14/18 04:00 05/14/18 05:00 Temperature Pulse Rate 99 H 97 H 99 H Respiratory Rate 14 Blood Pressure 129/84 119/86 Pulse Oximetry 100 100 05/14/18 08:00 Temperature 97.6 F Pulse Rate 100 H Respiratory Rate 14 Blood Pressure 139/97 H Pulse Oximetry 100 Intake & Output 05/13/18 05/14/18 05/14/18 18:59 06:59 18:59 Intake Total 2500 / 2500 1160 / 1160 Output Total 0 / 0 Balance 2500 / 2500 1160 / 1160 Weight 52.9 kg Intake: IV 1000 / 1000 200 / 200 NS Inj 1,000 ML @ 100 mls/hr IV 1000 / 1000 .CONT .Q10H [facility] Rx#:[id number] Ancef Inj 2,000 MG In NS Inj 80 200 / 200 ML @ 200 mls/hr IV.SIG Q8H [facility] Rx#:[id number] Oral 960 / 960 Oral Supplement 0 / 0 Tube Feeding 0 / 0 Tube Irrigant 0 / 0 Water Bolus Amount 0 / 0 Anesthesia Amount 1500 / 1500 0 / 0 Output: Urine 0 / 0 Stool 0 / 0 Urine/Stool Mix 0 / 0 Wound Drainage 0 / 0 Head 0 / 0 Other: Post Void Residual 0 # Voids 0 # Incontinent Voids 0 # Urine Diapers 0 Date of Last Bowel Movement 05/13/18 05/13/18 05/13/18 # Bowel Movements 0 # Incontinent Bowel Movements 0 Narrative: E4 bright AOx self, hospital, year FCx4 Left hemiparesis 5/5 in the right upper and lower AMIRAH in place - Urinary Catheter Management Indwelling Temp Sensing Catheter Cath placed during this visit: yes, but has since been removed by the nurse Reason for continuing: Not indwelling catheter Insertion date: 03/12/18 Insertion time: 05:30 Removal date: 03/25/18 Removal time: 18:00 Indwelling Urethral Catheter Cath placed during this visit: yes, but has since been removed by the nurse Reason for continuing: Decision to DC catheter Insertion date: 03/22/18 Insertion time: 17:30 Removal date: 03/25/18 Removal time: 18:00 Condom Cath placed during this visit: yes, but has since been removed by the nurse Reason for continuing: Hourly intake/output Insertion date: 05/13/18 Insertion time: 14:30 Removal date: 03/25/18 Removal time: 18:00 Assessment and Plan - Plan 63 yo POD 1 left cranioplasty -neuro stable -ok to normalize: regular diet, PT/OT (activity as tolerated), dc martinez -Amirah with high output, likely dc on wednesday -dispo wednesday pending PT evaluation
[2018-05-15] MEDS: Sod Chloride 0.9% Inj 1,000 ML IV.CONT SCH ×3 (02:43→18:09)
[2018-05-15] MEDS: Oral Hygiene Kit OROPHARYNG SCH ×3 (03:47→17:10)
[2018-05-15] MEDS: Carboxymethylcellulose 0.5% Opth Drops 15 ML Bottle EACH EYE SCH ×3 (05:19→23:34)
[2018-05-15 08:24] LABS: Baso % (Auto) 0.5 % (0.0-2.0); Eos # (Auto) 0.1 th/mm3 (0.0-0.4); Eos % (Auto) 2.4 % (0.0-4.0); Hematocrit 34.5 % (39.0-51.0); Hemoglobin 11.2 gm/dL (13.0-17.0); Lymph # (Auto) 1.2 th/mm3 (1.0-4.8); Lymph % (Auto) 38.5 % (9.0-44.0); Mean Corpuscular HGB Conc 32.6 % (32.0-36.0); Mean Corpuscular Hemoglobin 30.5 pg (27.0-34.0); Mean Corpuscular Volume 93.5 fL (80.0-100.0); Mono # (Auto) 0.3 th/mm3 (0.0-0.9); Mono % (Auto) 9.4 % (0.0-8.0); Neut # (Auto) 1.5 th/mm3 (1.8-7.7); Neut % (Auto) 49.2 % (16.0-70.0); Platelet Count 198 th/mm3 (150-450); Red Blood Count 3.69 mil/mm3 (4.50-5.90); Red Cell Distribution Width 14.1 % (11.6-17.2); White Blood Count 3.1 th/mm3 (4.0-11.0)
--- NOTE | 2018-05-15 08:31 | P.PNNS ---
Subjective Interval history: patient reports poor pain control. tolerating diet Physical Exam Vital signs: Vital Signs 05/14/18 12:00 05/14/18 17:21 05/14/18 20:00 Temperature 97.2 F L 98.3 F 98.4 F Pulse Rate 86 72 70 Respiratory Rate 16 14 18 Blood Pressure 133/91 H 110/70 122/67 Pulse Oximetry 100 98 98 05/15/18 00:00 05/15/18 04:00 Temperature 98.2 F 97.8 F Pulse Rate 66 92 H Respiratory Rate 18 18 Blood Pressure 126/69 102/60 Pulse Oximetry 98 95 Intake & Output 05/14/18 05/15/18 05/15/18 18:59 06:59 18:59 Intake Total 1460 / 1460 2621 / 2621 Output Total 295 / 295 710 / 710 Balance 1165 / 1165 191 / 191 Weight 58.2 kg Intake: IV 1100 / 1100 1000 / 1000 NS Inj 1,000 ML @ 100 mls/hr IV 1000 / 1000 1000 / 1000 .CONT .Q10H [facility] Rx#:[id number] Ancef Inj 2,000 MG In NS Inj 80 100 / 100 ML @ 200 mls/hr IV.SIG Q8H [facility] Rx#:[id number] Oral 360 / 360 221 / 221 Tube Feeding 600 / 600 Anesthesia Amount 0 / 0 Other 800 / 800 Output: Urine 700 / 700 Urine Amount (Catheter) 200 / 200 Condom 200 / 200 Wound Drainage 95 / 95 10 / 10 # 1 Right Head 95 / 95 10 / 10 Other: Post Void Residual 0 Other Intake Source Saline Solution # Voids 0 # Incontinent Voids 0 # Urine Diapers 0 Date of Last Bowel Movement 05/13/18 05/13/18 # Bowel Movements 0 Narrative: E4 bright AOx self, hospital, year FCx4 Left hemiparesis 5/5 in the right upper and lower AMIRAH in place, thin fluid appears CSF - Urinary Catheter Management Indwelling Temp Sensing Catheter Cath placed during this visit: yes, but has since been removed by the nurse Reason for continuing: Not indwelling catheter Insertion date: 03/12/18 Insertion time: 05:30 Removal date: 03/25/18 Removal time: 18:00 Indwelling Urethral Catheter Cath placed during this visit: yes, but has since been removed by the nurse Reason for continuing: Decision to DC catheter Insertion date: 03/22/18 Insertion time: 17:30 Removal date: 03/25/18 Removal time: 18:00 Condom Cath placed during this visit: yes, but has since been removed by the nurse Reason for continuing: Hourly intake/output Insertion date: 05/13/18 Insertion time: 14:30 Removal date: 03/25/18 Removal time: 18:00 Assessment and Plan - Plan 63 yo POD 2 left cranioplasty -neuro stable -regular diet, PT/OT (activity as tolerated) -Amirah with CSF, please DC today -ok for dispo pending PT evaluation
[2018-05-15 08:56] LABS: Anion Gap 7 meq/L (5-15); Blood Urea Nitrogen 18 mg/dL (7-18); Calcium 8.4 mg/dL (8.5-10.1); Carbon Dioxide 27.7 meq/L (21.0-32.0); Chloride 107 meq/L (98-107); Glomerular Filtration Rate Greater Than 89 mL/min (>89); Glucose,Random 112 mg/dL (74-106); Potassium 3.4 meq/L (3.5-5.1); Sodium 142 meq/L (136-145)
[2018-05-15] MEDS ORDERED: glipiZIDE 5 MG Tablet PO SCH (09:00)
[2018-05-15] MEDS: Topiramate 25 MG Tablet PO SCH ×2 (10:37→23:32)
[2018-05-15] MEDS: Folic Acid 1 MG Tablet PO SCH (10:38)
[2018-05-15] MEDS: Senna/Docusate Sodium 8.6/50 MG Tablet PO SCH ×2 (10:38→23:33)
[2018-05-15] MEDS: Sennosides Liq 8.8 MG/5 ML UDC NG/OG SCH ×2 (10:40→23:32)
--- NOTE | 2018-05-15 11:01 | P.PNIM ---
Subjective Interval history: in no acute distress. looks comfortable. Physical Exam Vital signs: Vital Signs 05/14/18 12:00 05/14/18 17:21 05/14/18 20:00 Temperature 97.2 F L 98.3 F 98.4 F Pulse Rate 86 72 70 Respiratory Rate 16 14 18 Blood Pressure 133/91 H 110/70 122/67 Pulse Oximetry 100 98 98 05/15/18 00:00 05/15/18 04:00 05/15/18 08:00 Temperature 98.2 F 97.8 F 97.4 F L Pulse Rate 66 92 H 88 Respiratory Rate 18 18 18 Blood Pressure 126/69 102/60 124/79 Pulse Oximetry 98 95 99 Intake & Output 05/14/18 05/15/18 05/15/18 18:59 06:59 18:59 Intake Total 1460 / 1460 2621 / 2621 240 / 240 Output Total 295 / 295 710 / 710 30 / 30 Balance 1165 / 1165 1911 / 1911 210 / 210 Weight 58.2 kg Intake: IV 1100 / 1100 1000 / 1000 NS Inj 1,000 ML @ 100 mls/hr IV 1000 / 1000 1000 / 1000 .CONT .Q10H [facility] Rx#:[id number] Ancef Inj 2,000 MG In NS Inj 80 100 / 100 ML @ 200 mls/hr IV.SIG Q8H [facility] Rx#:[id number] Oral 360 / 360 221 / 221 240 / 240 Tube Feeding 600 / 600 Anesthesia Amount 0 / 0 Other 800 / 800 Output: Urine 700 / 700 Urine Amount (Catheter) 200 / 200 Condom 200 / 200 Wound Drainage 95 / 95 10 30 / 30 # 1 Right Head 95 / 95 Other: Post Void Residual 0 Other Intake Source Saline Solution # Voids 0 # Incontinent Voids 0 # Urine Diapers 0 Date of Last Bowel Movement 05/13/18 05/13/18 # Bowel Movements 0 - Constitutional no acute distress - Routine HEENT Exam Comments: covered with clean dressing. - Routine Respiratory Exam Present: CTA bilaterally - Routine Cardiovascular Exam Present: RRR - Routine Abdominal Exam Present: soft - Routine Extremities Exam Comments: no pedal edema. - Routine Neurological Exam awake. - Urinary Catheter Management Indwelling Temp Sensing Catheter Cath placed during this visit: yes, but has since been removed by the nurse Reason for continuing: Not indwelling catheter Insertion date: 03/12/18 Insertion time: 05:30 Removal date: 03/25/18 Removal time: 18:00 Indwelling Urethral Catheter Cath placed during this visit: yes, but has since been removed by the nurse Reason for continuing: Decision to DC catheter Insertion date: 03/22/18 Insertion time: 17:30 Removal date: 03/25/18 Removal time: 18:00 Condom Cath placed during this visit: yes, but has since been removed by the nurse Reason for continuing: Hourly intake/output Insertion date: 05/13/18 Insertion time: 14:30 Removal date: 03/25/18 Removal time: 18:00 Results - Labs CBC & Chem 7: 05/15/18 07:10 05/15/18 07:10 Laboratory Results - last 24 hr 05/15/18 05/15/18 07:10 07:10 WBC 3.1 L RBC 3.69 L Hgb 11.2 L Hct 34.5 L MCV 93.5 MCH 30.5 MCHC 32.6 RDW 14.1 Plt Count 198 MPV 8.0 Neut % (Auto) 49.2 Lymph % (Auto) 38.5 Jennings % (Auto) 9.4 H Eos % (Auto) 2.4 Baso % (Auto) 0.5 Neut # (Auto) 1.5 L Lymph # (Auto) 1.2 Jennings # (Auto) 0.3 Eos # (Auto) 0.1 Baso # (Auto) 0.0 WBC Differential . Differential Comment Auto diff final Sodium 142 Potassium 3.4 L Chloride 107 Carbon Dioxide 27.7 Anion Gap 7 BUN 18 Creatinine 0.70 Estimated GFR Greater than 89 Random Glucose 112 H Calcium 8.4 L - Procedures PEG 7 -25 right decompressive craniectomy 03/22/18 with placement of ICP monitor by Dr. Chacko, az'ed 03/23/18 03/22/18 Right frontotemporal parietal decompressive craniectomy and Duroplasty 03/22/18 Left frontal bur hole with placement of an intracranial pressure monitor Assessment and Plan - Assessment (1) Intracranial hemorrhage following injury Code(s): S06.309A - Unspecified focal traumatic brain injury with loss of consciousness of unspecified duration, initial encounter Status: Acute (2) Traumatic brain injury Code(s): S06.9X9A - Unspecified intracranial injury with loss of consciousness of unspecified duration, initial encounter Status: Acute (3) Fall Code(s): W19.XXXA - Unspecified fall, initial encounter Status: Chronic (4) Cocaine abuse Code(s): F14.10 - Cocaine abuse, uncomplicated Status: Chronic (5) ETOH abuse Code(s): F10.10 - Alcohol abuse, uncomplicated Status: Chronic (6) Dysphagia Code(s): R13.10 - Dysphagia, unspecified Status: Acute - Plan Right frontal IPH 53.3 cm. SAH bilat frontal lobes, right parietal, temporal. Right frontotemporal SDH status post emergency craniectomy for decompression for worsening midline shift right to left 2.1 cm s/p Fall, ?syncope Daily alcohol use/Cocaine abuse - s/p Right frontotemporal parietal decompressive craniectomy and Duroplasty by Dr. Chacko. and later s/p cranioplasty on 05/13/18. - Continue on Keppra - no seizure activity reported - Continue with PT/OT - PT recommends rehab at discharge - Seizure precautions Palliative care following, appreciate assistance. Feels he has capacity to make medical decisions with support of family. Recommended psych consult to assess capacity. Psychiatry consulted, appreciate assistance. - Dr. Narvaez following, appreciate assistance Headache repeat CT head 04/[address] head 04/26 shows stable exam with large right craniectomy defect and 5 mm midline shift, no hemorrhage CTA head negative -Neurology following, appreciate assistance. Started on Topamax 50mg BID for likely vascular component. Dysphagia s/p PEG tube placement 03/30/18 - ST re-evaluated and patient given puree diet with nectar thickened liquids. - Calorie count completed, inadequate intake. - continue with night-time tube feeding per agency sales management assistant recommendations. Acute respiratory failure secondary to failure to protect airway-resolved extubated MRSA pneumonia, status post treatment with IV vancomycin and Rocephin Tobacco abuse Extubated 03/25/2018 - Continue as needed duo nebs - continue to monitor respiratory status - Supplemental oxygen as needed DVT prophylaxis SCDs No chemoprophylaxis anticoagulation due to intracranial bleed Discharge Planning: needs placement. (2) Traumatic brain injury Qualifiers: Encounter type: subsequent encounter
[2018-05-16] MEDS: Sod Chloride 0.9% Inj 1,000 ML IV.CONT SCH ×2 (04:35→17:21)
[2018-05-16] MEDS: Oral Hygiene Kit OROPHARYNG SCH ×4 (05:32→17:22)
[2018-05-16] MEDS: Carboxymethylcellulose 0.5% Opth Drops 15 ML Bottle EACH EYE SCH ×3 (06:23→21:00)
[2018-05-16] MEDS: Senna/Docusate Sodium 8.6/50 MG Tablet PO SCH ×2 (09:04→21:00)
[2018-05-16] MEDS: Folic Acid 1 MG Tablet PO SCH (09:04)
[2018-05-16] MEDS: Topiramate 25 MG Tablet PO SCH ×2 (09:04→21:00)
[2018-05-16] MEDS: Sennosides Liq 8.8 MG/5 ML UDC NG/OG SCH ×2 (09:06→21:00)
--- NOTE | 2018-05-16 11:56 | P.PNIM ---
Subjective Interval history: in no acute distress. looks comfortable. Physical Exam Vital signs: Vital Signs 05/15/18 11:56 05/15/18 16:00 05/15/18 21:51 Temperature 97.8 F 97.5 F L 98.2 F Pulse Rate 98 H 70 84 Respiratory Rate 18 Blood Pressure 131/90 123/77 116/71 Pulse Oximetry 98 98 97 05/16/18 01:04 05/16/18 04:00 05/16/18 08:00 Temperature 97.9 F 98 F 97.2 F L Pulse Rate 59 L 82 88 Respiratory Rate 17 Blood Pressure 137/84 118/70 141/87 H Pulse Oximetry 97 96 99 Intake & Output 05/15/18 05/16/18 05/16/18 18:59 06:59 18:59 Intake Total 1240 / 1240 1777 / 1777 Output Total Balance 1210 / 1210 1776 / 1776 Weight 57.6 kg Intake: IV 1000 / 1000 1000 / 1000 NS Inj 1,000 ML @ 100 mls/hr IV 1000 / 1000 1000 / 1000 .CONT .Q10H [facility] Rx#:[id number] Oral 240 / 240 Tube Feeding 657 / 657 Water Bolus Amount 120 / 120 Output: Stool Wound Drainage # 1 Right Head Other: # Voids 3 # Incontinent Voids 1 Date of Last Bowel Movement 05/13/18 # Incontinent Bowel Movements 1 - Constitutional no acute distress - Routine HEENT Exam Comments: head covered with clean dressing. - Routine Respiratory Exam Present: CTA bilaterally - Routine Cardiovascular Exam Present: RRR - Routine Abdominal Exam Present: soft - Routine Extremities Exam Comments: no pedal edema. - Routine Neurological Exam Present: alert, oriented X3 - Urinary Catheter Management Indwelling Temp Sensing Catheter Cath placed during this visit: yes, but has since been removed by the nurse Reason for continuing: Not indwelling catheter Insertion date: 03/12/18 Insertion time: 05:30 Removal date: 03/25/18 Removal time: 18:00 Indwelling Urethral Catheter Cath placed during this visit: yes, but has since been removed by the nurse Reason for continuing: Decision to DC catheter Insertion date: 03/22/18 Insertion time: 17:30 Removal date: 03/25/18 Removal time: 18:00 Condom Cath placed during this visit: yes, but has since been removed by the nurse Reason for continuing: Hourly intake/output Insertion date: 05/13/18 Insertion time: 14:30 Removal date: 03/25/18 Removal time: 18:00 Results - Labs CBC & Chem 7: 05/15/18 07:10 05/15/18 07:10 - Procedures PEG 7 -25 right decompressive craniectomy 03/22/18 with placement of ICP monitor by Dr. Chacko, va'ed 03/23/18 03/22/18 Right frontotemporal parietal decompressive craniectomy and Duroplasty 03/22/18 Left frontal bur hole with placement of an intracranial pressure monitor Assessment and Plan - Assessment (1) Intracranial hemorrhage following injury Code(s): S06.309A - Unspecified focal traumatic brain injury with loss of consciousness of unspecified duration, initial encounter Status: Acute (2) Traumatic brain injury Code(s): S06.9X9A - Unspecified intracranial injury with loss of consciousness of unspecified duration, initial encounter Status: Acute (3) Fall Code(s): W19.XXXA - Unspecified fall, initial encounter Status: Chronic (4) Cocaine abuse Code(s): F14.10 - Cocaine abuse, uncomplicated Status: Chronic (5) ETOH abuse Code(s): F10.10 - Alcohol abuse, uncomplicated Status: Chronic (6) Dysphagia Code(s): R13.10 - Dysphagia, unspecified Status: Acute - Plan Right frontal IPH 53.3 cm. SAH bilat frontal lobes, right parietal, temporal. Right frontotemporal SDH status post emergency craniectomy for decompression for worsening midline shift right to left 2.1 cm s/p Fall, ?syncope Daily alcohol use/Cocaine abuse - s/p Right frontotemporal parietal decompressive craniectomy and Duroplasty by Dr. Chacko. and later s/p cranioplasty on 05/13/18. - Continue on Keppra - no seizure activity reported - Continue with PT/OT - PT recommends rehab at discharge - Seizure precautions Palliative care following, appreciate assistance. Feels he has capacity to make medical decisions with support of family. Recommended psych consult to assess capacity. Psychiatry consulted, appreciate assistance. - Dr. Narvaez following, appreciate assistance Headache repeat CT head 04/[address] head 04/26 shows stable exam with large right craniectomy defect and 5 mm midline shift, no hemorrhage CTA head negative -Neurology following, appreciate assistance. Started on Topamax 50mg BID for likely vascular component. Dysphagia s/p PEG tube placement 03/30/18 - ST re-evaluated and patient given puree diet with nectar thickened liquids. - Calorie count completed, inadequate intake. - continue with night-time tube feeding per physical therapist aide recommendations. Acute respiratory failure secondary to failure to protect airway-resolved extubated MRSA pneumonia, status post treatment with IV vancomycin and Rocephin Tobacco abuse Extubated 03/25/2018 - Continue as needed duo nebs - continue to monitor respiratory status - Supplemental oxygen as needed DVT prophylaxis SCDs No chemoprophylaxis anticoagulation due to intracranial bleed Discharge Planning: needs placement. (2) Traumatic brain injury Qualifiers: Encounter type: subsequent encounter
--- NOTE | 2018-05-16 17:38 | P.PNNS ---
Subjective Interval history: without issues Physical Exam Vital signs: Vital Signs 05/15/18 21:51 05/16/18 01:04 05/16/18 04:00 Temperature 98.2 F 97.9 F 98 F Pulse Rate 84 59 L 82 Respiratory Rate 18 18 18 Blood Pressure 116/71 137/84 118/70 Pulse Oximetry 97 97 96 05/16/18 08:00 05/16/18 12:00 05/16/18 14:19 Temperature 97.2 F L 97.4 F L Pulse Rate 88 96 H Respiratory Rate 17 17 14 Blood Pressure 141/87 H 141/92 H Pulse Oximetry 99 97 05/16/18 16:00 Temperature 99.6 F Pulse Rate 134 H Respiratory Rate 18 Blood Pressure 111/74 Pulse Oximetry 91 L Intake & Output 05/15/18 05/16/18 05/16/18 18:59 06:59 18:59 Intake Total 1240 / 1240 1777 / 1777 1000 / 1000 Output Total Balance 1210 / 1210 1776 / 1776 1000 / 1000 Weight 57.6 kg Intake: IV 1000 / 1000 1000 / 1000 1000 / 1000 NS Inj 1,000 ML @ 100 mls/hr IV 1000 / 1000 1000 / 1000 1000 / 1000 .CONT .Q10H [facility] Rx#:[id number] Oral 240 / 240 Tube Feeding 657 / 657 Water Bolus Amount 120 / 120 Output: Stool Wound Drainage # 1 Right Head Other: # Voids 3 # Incontinent Voids 1 Date of Last Bowel Movement 05/13/18 # Incontinent Bowel Movements 1 Narrative: E4 bright AOx self, hospital, year FCx4 Left hemiparesis 5/5 in the right upper and lower - Urinary Catheter Management Indwelling Temp Sensing Catheter Cath placed during this visit: yes, but has since been removed by the nurse Reason for continuing: Not indwelling catheter Insertion date: 03/12/18 Insertion time: 05:30 Removal date: 03/25/18 Removal time: 18:00 Indwelling Urethral Catheter Cath placed during this visit: yes, but has since been removed by the nurse Reason for continuing: Decision to DC catheter Insertion date: 03/22/18 Insertion time: 17:30 Removal date: 03/25/18 Removal time: 18:00 Condom Cath placed during this visit: yes, but has since been removed by the nurse Reason for continuing: Hourly intake/output Insertion date: 05/13/18 Insertion time: 14:30 Removal date: 03/25/18 Removal time: 18:00 Assessment and Plan - Plan 63 yo POD 3 left cranioplasty -neuro stable -regular diet, PT/OT (activity as tolerated) -pending dispo
[2018-05-16 19:41] LABS: Bacteria,Urine Moderate /hpf; Bilirubin,Urine Negative (Negative); Clarity,Urine Cloudy (Clear); Color,Urine Red (Yellw/Straw); Glucose,Urine (UA) Negative (Negative); Leukocyte Esterase,Urine Large (Negative); Mucus,Urine Few /lpf (Occasional); Nitrite,Urine Negative (Negative); Specific Gravity,Urine 1.013 (1.002-1.035)
[2018-05-17] MEDS: Sod Chloride 0.9% Inj 1,000 ML IV.CONT SCH ×3 (00:30→18:41)
[2018-05-17] MEDS: Oral Hygiene Kit OROPHARYNG SCH ×4 (00:30→15:02)
[2018-05-17] MEDS: Carboxymethylcellulose 0.5% Opth Drops 15 ML Bottle EACH EYE SCH ×3 (06:38→21:33)
--- NOTE | 2018-05-17 07:42 | P.PN ---
Subjective Interval history: Follow up on patient with right frontal IPH. Patient seen and examined. Patient spiked a temperature 100.5, currently afebrile. Patient complaining of headache. He is asking for a soda and pudding. Discussed with nursing staff, no diarrhea. Physical Exam Vital signs: Vital Signs 05/16/18 08:00 05/16/18 12:00 05/16/18 14:19 Temperature 97.2 F L 97.4 F L Pulse Rate 88 96 H Respiratory Rate 17 17 14 Blood Pressure 141/87 H 141/92 H Pulse Oximetry 99 97 05/16/18 16:00 05/16/18 19:45 05/16/18 20:00 Temperature 99.6 F 100.5 F H Pulse Rate 134 H 117 H 121 H Respiratory Rate 18 18 Blood Pressure 111/74 104/64 Pulse Oximetry 91 L 95 05/16/18 22:22 05/16/18 22:29 05/17/18 00:30 Temperature 98.5 F 97.5 F L Pulse Rate 120 H 116 H Respiratory Rate 18 18 18 Blood Pressure 104/68 100/57 L Pulse Oximetry 99 97 05/17/18 00:47 05/17/18 05:10 Temperature 97.3 F L Pulse Rate 115 H 124 H Respiratory Rate 18 Blood Pressure 104/63 Pulse Oximetry 96 Intake & Output 05/16/18 05/17/18 05/17/18 18:59 06:59 18:59 Intake Total 1000 / 1000 1900 / 1900 Balance 1000 / 1000 1900 / 1900 Weight 58.6 kg Intake: IV 1000 / 1000 1000 / 1000 NS Inj 1,000 ML @ 100 mls/hr IV 1000 / 1000 1000 / 1000 .CONT .Q10H [facility] Rx#:[id number] Oral 50 / 50 Tube Feeding 750 / 750 Water Bolus Amount 100 / 100 Other: # Incontinent Voids 3 Date of Last Bowel Movement 05/13/18 05/17/18 # Bowel Movements 1 Narrative: GENERAL: This is a thin, frail, -Bangladeshi male patient. Not in any distress. Awake. SKIN: Warm and dry. No generalized rash. HEENT: s/p right sided cranioplasty. Incision appears to be healing well. [place] intact. No sclera injection. No drainage. No nasal drainage. NECK: Trachea midline. Airway patent. CARDIOVASCULAR: Regular rate and rhythm without murmurs, gallops, or rubs. RESPIRATORY: No accessory muscle use. Breath sounds equal bilaterally. Poor effort, clear to auscultation anteriorly. GASTROINTESTINAL: Abdomen soft, non-tender, nondistended. PEG site C/D/I. MUSCULOSKELETAL: No cyanosis or edema. NEURO: Awake and alert. Moves right upper and lower extremity spontaneously. Very weak art conservator on the left. Minimal toe wiggle appreciated on the left. Normal speech. PSYCHIATRIC: Calm and cooperative. Insight and judgement poor. - Urinary Catheter Management Indwelling Temp Sensing Catheter Cath placed during this visit: yes, but has since been removed by the nurse Reason for continuing: Not indwelling catheter Insertion date: 03/12/18 Insertion time: 05:30 Removal date: 03/25/18 Removal time: 18:00 Indwelling Urethral Catheter Cath placed during this visit: yes, but has since been removed by the nurse Reason for continuing: Decision to DC catheter Insertion date: 03/22/18 Insertion time: 17:30 Removal date: 03/25/18 Removal time: 18:00 Condom Cath placed during this visit: yes, but has since been removed by the nurse Reason for continuing: Hourly intake/output Insertion date: 05/13/18 Insertion time: 14:30 Removal date: 03/25/18 Removal time: 18:00 Results - Labs CBC & Chem 7: 05/17/18 09:53 05/17/18 07:35 Laboratory Results - last 24 hr 05/16/18 18:24 Urine Color Red Urine Clarity Cloudy H Urine pH 8.0 Ur Specific [place] 1.013 Urine Protein 100 H Urine Glucose (UA) Negative Urine Ketones Negative Urine Occult Blood Large H Urine Nitrate Negative Urine Bilirubin Negative Urine Urobilinogen 2.0 H Ur Leukocyte Esterase Large H Urine RBC Urine WBC Urine WBC Clumps Many H Urine Bacteria Moderate H Urine Mucus Few H Micro UA Comment Culture indicated Ur Microscopic Review Not Reportable Urine Culture Comments Culture indicated - Procedures PEG 7 -25 right decompressive craniectomy 03/22/18 with placement of ICP monitor by Dr. Chacko, ky'ed 03/23/18 03/22/18 Right frontotemporal parietal decompressive craniectomy and Duroplasty 03/22/18 Left frontal bur hole with placement of an intracranial pressure monitor Assessment and Plan - Assessment (1) Intracranial hemorrhage following injury Code(s): S06.309A - Unspecified focal traumatic brain injury with loss of consciousness of unspecified duration, initial encounter Status: Acute (2) Traumatic brain injury Code(s): S06.9X9A - Unspecified intracranial injury with loss of consciousness of unspecified duration, initial encounter Status: Acute (3) Fall Code(s): W19.XXXA - Unspecified fall, initial encounter Status: Chronic (4) Cocaine abuse Code(s): F14.10 - Cocaine abuse, uncomplicated Status: Chronic (5) ETOH abuse Code(s): F10.10 - Alcohol abuse, uncomplicated Status: Chronic (6) Dysphagia Code(s): R13.10 - Dysphagia, unspecified Status: Acute - Plan 62-year-old male admitted secondary to intracranial hemorrhage Tachycardiac with HR 120, Tmax 100.5, hypotensive with BP 96/50, likely UTI source Concern for sepsis Patient is currently afebrile EKG shows sinus tach UA suggestive of UTI - obtain labs to include blood cultures and lactic acid sepsis protocol - obtain CXR. no diarrhea per nursing report - continue on IVF - start on IV Rocephin and follow up on UCX results - monitor vitals - continuous cardiac monitoring Right frontal IPH 53.3 cm. SAH bilat frontal lobes, right parietal, temporal. Right frontotemporal SDH status post emergency craniectomy for decompression for worsening midline shift right to left 2.1 cm s/p Fall, ?syncope Daily alcohol use/Cocaine abuse - s/p Right frontotemporal parietal decompressive craniectomy and Duroplasty by Dr. Chacko. - s/p right cranioplasty 05/13/18 - Continue on Keppra - no seizure activity reported - Continue with PT/OT - PT recommends rehab at discharge - Seizure precautions Palliative care following, appreciate assistance. Per note, patient has improved tremendously. Feels he has capacity to make medical decisions with support of family. Recommended psych consult to assess capacity. Psychiatry consulted, appreciate assistance. - Dr. Narvaez following, appreciate assistance Headache repeat CT head 04/[address] head 04/26 shows stable exam with large right craniectomy defect and 5 mm midline shift, no hemorrhage CTA head negative -Neurology following, appreciate assistance. Started on Topamax 50mg BID for likely vascular component. Dysphagia s/p PEG tube placement 03/30/18 - ST re-evaluated and patient given puree diet with nectar thickened liquids. - Calorie count completed, inadequate intake. 04/20 TF resumed - Jevity 1.5 at 75 mls per hour 12 hours at night 7pm to 7am. 04/25 patient reevaluated by dietitian, recommends continued nighttime feeding and supplement Acute respiratory failure secondary to failure to protect airway-resolved extubated MRSA pneumonia, status post treatment with IV vancomycin and Rocephin Tobacco abuse Extubated 03/25/2018 - Continue as needed duo nebs - continue to monitor respiratory status - Supplemental oxygen as needed DVT prophylaxis SCDs No chemoprophylaxis anticoagulation due to recent intracranial bleed Discharge Planning: Difficult placement. No payor source. CM assisting with ongoing discharge plan. Plan for cranioplasty in the near future by Dr. Chacko. (2) Traumatic brain injury Qualifiers: Encounter type: subsequent encounter
[2018-05-17 09:01] LABS: Anion Gap 10 meq/L (5-15); Blood Urea Nitrogen 12 mg/dL (7-18); Calcium 8.2 mg/dL (8.5-10.1); Carbon Dioxide 21.4 meq/L (21.0-32.0); Chloride 110 meq/L (98-107); Glomerular Filtration Rate Greater Than 89 mL/min (>89); Glucose,Random 147 mg/dL (74-106); Potassium 3.6 meq/L (3.5-5.1); Sodium 141 meq/L (136-145)
[2018-05-17] MEDS: Topiramate 25 MG Tablet PO SCH ×2 (09:20→21:32)
[2018-05-17] MEDS: Folic Acid 1 MG Tablet PO SCH (09:20)
[2018-05-17] MEDS: Senna/Docusate Sodium 8.6/50 MG Tablet PO SCH ×2 (09:20→21:32)
[2018-05-17] MEDS: Sennosides Liq 8.8 MG/5 ML UDC NG/OG SCH ×2 (09:21→21:33)
[2018-05-17 10:11] LABS: Baso % (Auto) 0.2 % (0.0-2.0); Hematocrit 34.2 % (39.0-51.0); Lymph # (Auto) 0.8 th/mm3 (1.0-4.8); Lymph % (Auto) 6.3 % (9.0-44.0); Mean Corpuscular Hemoglobin 29.9 pg (27.0-34.0); Mean Corpuscular Volume 93.2 fL (80.0-100.0); Mean Platelet Volume 7.6 fL (7.0-11.0); Mono # (Auto) 0.9 th/mm3 (0.0-0.9); Mono % (Auto) 6.9 % (0.0-8.0); Neut # (Auto) 10.7 th/mm3 (1.8-7.7); Neut % (Auto) 86.6 % (16.0-70.0); Platelet Count 184 th/mm3 (150-450); Red Blood Count 3.67 mil/mm3 (4.50-5.90); White Blood Count 12.4 th/mm3 (4.0-11.0)
[2018-05-17 12:10] LABS: Bacteria,Urine Many /hpf; Bilirubin,Urine Negative (Negative); Clarity,Urine Cloudy (Clear); Color,Urine Amber (Yellw/Straw); Glucose,Urine (UA) Negative (Negative); Leukocyte Esterase,Urine Large (Negative); Nitrite,Urine Positive (Negative); Specific Gravity,Urine 1.018 (1.002-1.035); Urobilinogen,Urine 4 or Greater mg/dL (Less than 2)
--- NOTE | 2018-05-17 13:38 | P.DIET ---
Nutritional Evaluation Type of nutrition evaluation: follow-up Nutrition consult regarding: Tube Feeding Nutrition screening: [facility] [place] Subjective Subjective Comments: Pt has been refusing meals per Feeding Assessment in EMR. He was drinking the Ensure Enlive sometimes and likes the Ensure Pudding. Objective - Diagnosis ICH, SAH, Syncope - Objective % IBW: 87 (IBW = 166#) Body Weight Used for Calculations: Actual (65.4 kg) Energy Needs - Lower Range (kCal/kg): 28 Energy Needs - Upper Range (kCal/kg): 33 Lower Limit kCal/kg (kCals): 1,831 Upper Limit kCal/kg (kCals): 2,158 Lower Limit Protein Factor (Grams per Kg): 1.2 Upper Limit Protein Factor (Grams per Kg): 1.5 Lower Protein Needs (Protein): 79 Upper Protein Needs (Protein): 98 Fluid Factor (ml/kg): 28 Estimated Fluid Needs (ml): 1,831 Dietitian Reviewed in Medical Record: Current diet, Curent medications, Intake & Output, Labs, Medical history, Tube feeding, Wound/DTI Diet Order: Pureed, Honey Thickened Liquids Speech Therapy Recommendations: Yes (pureed, nectar thickened liquids) Objective Comments: PMH: COPD, Asthma, tobacco abuse, daily ETOH use 03/22 R front temporal parietal decompressive craniectomy Integumentary: coccyx pressure injury PEG placement 03/30/1805/13 R frontal temporal parietal cranioplasty Feeding - Current Tube Feeding Tube Feeding Product: Jevity 1.5 Tube Feeding Rate: 75 (mls/hr x 12 hours) Tube Feeding Route: gastrostomy Current kCals Provided by Tube Feedin,350 Current Protein Provided by Tube Feeding (gPRO): 57 Current Free H2O Provided (m/l): 1,003 - Current PO Supplement Current Supplement: Ensure Enlive Current Frequency of Supplement: Three times a day Current kCals Provided by Supplement: 350 Current Protein Provided by Supplement: 20 Supplement Comments: plus Ensure Pudding(= 170 kcal and 4g protein per serving) Assessment Assessment: Pt was extubated on 03/25 and PEG tube placed 03/30. Current diet is mechanical soft and Ensure Enlive and Ensure Pudding added. CBW is 58.6 kg which indicates weight loss since admission. Recommend continue night time TFing to supplement po intake to prevent further nutritional compromise. Recommend continue Jevity 1.5 @ 75 mls/hr from 7pm -7am to provide 1350 kcals and 57 gms protein. Pt is still unable to meet nutritional needs with po intake alone. Benefits from full assistance at meals. Goal would be to discontinue TF at some point. Recommendations: 1. Diet per ST 2. Continue TF: Jevity 1.5 @ 75 mls/hr x 12 hours at night 3.Continue Ensure Enlive TID 4.Continue Ensure Pudding TID 5. Please provide full assistance at meals Dietitian to Monitor: Lab values, Supplement acceptance, Intake & Output, Diet tolerance, Weight change, PO Intake, Wound/skin status, Medical course
--- NOTE | 2018-05-17 14:18 | ECG ---
Date Performed: 05/16/2018 Time Performed: 17:57:36 PTAGE: 63 years EKG: SINUS TACHYCARDIA INCOMPLETE RIGHT BUNDLE BRANCH BLOCK SEPTAL MYOCARDIAL INFARCTION , PROBA VIJAY OLD ABNORMAL ECG Compared to PREVIOUS TRACING rate has increased and is associated with ST T changes, cannot rule out ischemia Clinical correlation is recommended PREVIOUS TRACIN04/11/2018 14.34 DOCTOR: Cj Amin Interpretating Date/Time 05/17/2018 14:17:18
--- NOTE | 2018-05-17 14:57 | P.PNPAL ---
Reason for Visit Reason for visit: a. To assist with evaluation and management of symptoms including:pain, anxiety b. To assist medical decision maker(s) with: better understanding of current medical conditions; weighing benefits/burdens of medical treatment options; making medical treatment decisions. Subjective Subjective/Interval History: Late entry seen earlier today around 1230 Pt seen today to follow up on comfort, goals. d/p cranioplasty for bone flap replacement 05/13. Low-grade fever 100.5. W BC elevated 12.4. Patient more lethargic and withdrawn today. Concern for UTI, urine culture pending. Started on Rocephin. Ordered for blood cultures as well however earlier today patient apparently refused lab draw ; he is now in agreement Lab plans to return later per nursing. OT following, ROM assisted with. Natural [employer] Basis Trader following-- pt w poor PO intake, though he indicates he likes the ensure pudding. Cont to recommend TF x 12 hr overnight to meet nutritional needs Pt seen in room, he is lethargic. He arouses some to exam, nods to questions only, will not otherwise answer. Indicates he wants to sleep, be left alone. Dressing around head clean/dry. Following exam call to son, spoke osmany Rachel. He indicates he has been coming to see patient, last saw him last night. He is aware patient underwent cranioplasty last week. Review with him patient current condition, assessment, possible new infectious process she will treatments for this started today. Review with him nutritional intake and tube feeding recommendations. He tells me that he thought his father was eating by mouth, his father has been eating but not eating enough to meet his nutritional and caloric needs. Further explore that he will continue to require feeding tube supplementation to meet those needs. He tells me he is going to talk to his father and try to get him to eat more. Gently explore with him that patient still has a long recovery road ahead of him, and that placement will depend on funding. Likely patient will require assistance going forward. Additionally, gently explore the patient does remain at risk for recurrent infections and other complications with this prolonged hospital course. Gently explore that he could suffer a severe infection including even warrant ICU again going forward and that at some point we may want to discuss CODE STATUS further with him and his father. He appears to have a simple understanding of things indicates it is stressful for him here having his father in the hospital , as his father helped him a lot at home before his illness. All questions answered to the best of my ability. Objective Vital Signs: Vital Signs 05/16/18 16:00 05/16/18 19:45 05/16/18 20:00 Temperature 99.6 F 100.5 F H Pulse Rate 134 H 117 H 121 H Respiratory Rate 18 18 Blood Pressure 111/74 104/64 Pulse Oximetry 91 L 95 05/16/18 22:22 05/16/18 22:29 05/17/18 00:30 Temperature 98.5 F 97.5 F L Pulse Rate 120 H 116 H Respiratory Rate 18 18 18 Blood Pressure 104/68 100/57 L Pulse Oximetry 99 97 05/17/18 00:47 05/17/18 05:10 05/17/18 07:51 Temperature 97.3 F L Pulse Rate 115 H 124 H Respiratory Rate 18 17 Blood Pressure 104/63 Pulse Oximetry 96 05/17/18 08:47 05/17/18 09:00 05/17/18 10:49 Temperature 98.1 F Pulse Rate 120 H 118 H Respiratory Rate 20 16 Blood Pressure 96/50 L Pulse Oximetry 95 05/17/18 13:32 05/17/18 13:43 Temperature 98 F Pulse Rate 113 H 121 H Respiratory Rate 20 Blood Pressure 116/70 Pulse Oximetry 98 Intake & Output 05/16/18 05/17/18 05/17/18 18:59 06:59 18:59 Intake Total 1000 / 1000 1900 / 1900 1000 / 1000 Balance 1000 / 1000 1900 / 1900 1000 / 1000 Weight 58.6 kg Intake: IV 1000 / 1000 1000 / 1000 1000 / 1000 NS Inj 1,000 ML @ 100 mls/hr IV 1000 / 1000 1000 / 1000 1000 / 1000 .CONT .Q10H [facility] Rx#:[id number] Oral 50 / 50 Tube Feeding 750 / 750 Water Bolus Amount 100 / 100 Other: # Incontinent Voids 3 Date of Last Bowel Movement 05/13/18 05/17/18 # Bowel Movements 1 Physical Exam: CONSTITUTIONAL/GENERAL: This is a frail 62 year old male. Withdrawn, limited engagement /flat SKIN: No jaundice, rashes, or lesions. Dressing around head clean and dry. HEAD: Dressing around head clean and dry. EYES: pupils equal, reactive. no injection or drainage CARDIOVASCULAR: Regular rate and rhythm without murmur. No JVD. Peripheral pulses symmetric. RESPIRATORY/CHEST: Symmetric, unlabored respirations. Clear to auscultation. Breath sounds equal bilaterally. On room air. GASTROINTESTINAL: Abdomen soft, non-tender, nondistended. peg tube in place. Site asymptomatic. NEUROLOGICAL: Lethargic, arouses some to exam. Unable to fully assess orientation as he primarily will only questions. Reluctant to verbalize. Reluctant to engage in conversation. Does not move extremities to my command though observed moving extremities spontaneously. PSYCHIATRIC: flat Diagnostic Tests Laboratory: Laboratory Results - last 72 hr 05/15/18 05/15/18 05/16/18 07:10 07:10 18:24 WBC 3.1 L RBC 3.69 L Hgb 11.2 L Hct 34.5 L MCV 93.5 MCH 30.5 MCHC 32.6 RDW 14.1 Plt Count 198 MPV 8.0 Neut % (Auto) 49.2 Lymph % (Auto) 38.5 [place] % (Auto) 9.4 H Eos % (Auto) 2.4 Baso % (Auto) 0.5 Neut # (Auto) 1.5 L Lymph # (Auto) 1.2 [place] # (Auto) 0.3 Eos # (Auto) 0.1 Baso # (Auto) 0.0 WBC Differential . Differential Comment Auto diff final Sodium 142 Potassium 3.4 L Chloride 107 Carbon Dioxide 27.7 Anion Gap 7 BUN 18 Creatinine 0.70 Estimated GFR Greater than 89 Random Glucose 112 H Lactic Acid Calcium 8.4 L Urine Color Red Urine Clarity Cloudy H Urine pH 8.0 Ur Specific [place] 1.013 Urine Protein 100 H Urine Glucose (UA) Negative Urine Ketones Negative Urine Occult Blood Large H Urine Nitrate Negative Urine Bilirubin Negative Urine Urobilinogen 2.0 H Ur Leukocyte Esterase Large H Urine RBC Urine WBC Urine WBC Clumps Many H Urine Bacteria Moderate H Urine Mucus Few H Micro UA Comment Culture indicated Ur Microscopic Review Not Reportable Urine Culture Comments Culture indicated 05/17/18 05/17/18 05/17/18 07:35 09:22 09:53 WBC 12.4 H RBC 3.67 L Hgb 11.0 L Hct 34.2 L MCV 93.2 MCH 29.9 MCHC 32.0 RDW 14.0 Plt Count 184 MPV 7.6 Neut % (Auto) 86.6 H Lymph % (Auto) 6.3 L [place] % (Auto) 6.9 Eos % (Auto) 0.0 Baso % (Auto) 0.2 Neut # (Auto) 10.7 H Lymph # (Auto) 0.8 L [place] # (Auto) 0.9 Eos # (Auto) 0.0 Baso # (Auto) 0.0 WBC Differential . Differential Comment Auto diff final Sodium 141 Potassium 3.6 Chloride 110 H Carbon Dioxide 21.4 Anion Gap 10 BUN 12 Creatinine 0.72 Estimated GFR Greater than 89 Random Glucose 147 H Lactic Acid Calcium 8.2 L Urine Color Jeannine Urine Clarity Cloudy H Urine pH 7.0 Ur Specific [place] 1.018 Urine Protein 30 H Urine Glucose (UA) Negative Urine Ketones Negative Urine Occult Blood Large H Urine Nitrate Positive H Urine Bilirubin Negative Urine Urobilinogen 4 or greater Ur Leukocyte Esterase Large H Urine RBC Urine WBC Urine WBC Clumps Urine Bacteria Many H Urine Mucus Micro UA Comment Culture indicated Ur Microscopic Review Not Reportable Urine Culture Comments Culture indicated 05/17/18 09:53 WBC RBC Hgb Hct MCV MCH MCHC RDW Plt Count MPV Neut % (Auto) Lymph % (Auto) [place] % (Auto) Eos % (Auto) Baso % (Auto) Neut # (Auto) Lymph # (Auto) [place] # (Auto) Eos # (Auto) Baso # (Auto) WBC Differential Differential Comment Sodium Potassium Chloride Carbon Dioxide Anion Gap BUN Creatinine Estimated GFR Random Glucose Lactic Acid 2.0 Calcium Urine Color Urine Clarity Urine pH Ur Specific [place] Urine Protein Urine Glucose (UA) Urine Ketones Urine Occult Blood Urine Nitrate Urine Bilirubin Urine Urobilinogen Ur Leukocyte Esterase Urine RBC Urine WBC Urine WBC Clumps Urine Bacteria Urine Mucus Micro UA Comment Ur Microscopic Review Urine Culture Comments Result Diagrams: 05/17/18 09:53 05/17/18 07:35 Microbiology: Microbiology 05/16/18 18:24 Urine Culture - Preliminary Clean Catch Urine gram negative rods Assessment and Plan - Disease Oriented Problem List (1) SDH (subdural hematoma) Comment: Right frontal intraparenchymal hemorage s/p fall. Underwent decompressive creniectomy and duroplasty 03/23/2018 Dr. Chacko. (2) MRSA pneumonia Comment: Had been intubated for airway protection and for thick secretions. Pt extubated 03/25 (3) Cocaine abuse (4) Tobacco abuse (5) COPD (chronic obstructive pulmonary disease) (6) Asthma - Symptom Scale (1) Head ache Comment: did not quantify and not cooperative to characterize. Pertinent Non-Medical Issues: Psychosocial:worked in [employer]. hx of etoh drug abuse. Has 2 chilren, on Daughter (i do not have name or contact at this point) and Son Wilson Jimenez [phone] Spiritual:did not disclose Legal:He had stated he want son Wilson Jimenez has health care surrogate, but was not very cooperative, and did not want to designate health care surrogate today Ethical issues impacting care: Important Contacts: Zeke Jimenez [phone] Daughter Prognosis: Pt is 62 male (copd/asthma/etoh/tobacco/coccaine abuse) who had syncopy, fell and hit his head. He had a 5x 3 right frontal lobe hemorrhage. Initially it was medical managment, but subsequent ct and neuro status worsened. 03/11 patient was intubated. 03/21: CT Head significant worsening of the [id number] midline shift frontal region, now measuring 2.1 cm, decreasing density of r frontal hematoma. 03/22 pt underwent right frontotemporal parietal decompressive craniectomy and duroplasty by Dr. Chacko. Eventually he was able to become alert enough and protect his airway enough to undergo medical extubation. He pulled his NG tube, so was peg tube was placed on 03/30. Neurologically he seem to be making progress with hospitalist documenting he is ambulating with assisstance in a walker. He has improve tremedously and I think if he is compliant there is a good chance he can get strong enough to stop tube feedings and improve. I will check with neurosurgery but I feel his prognosis is > 6 months at this point if he was compliant. Code Status: Full Code (by default) Plan: == capacity-mental status fluctuates status post TBI. He appears at the very least can participate in making medical decisions, with the support of family. He completed verbal designation of son Wilson as HCS == code status: full code. == Goals of care: Patient appears to have made general improvement during prolonged hospital course. Likely would continue to make slow improvement if able to cooperate with ongoing aggressive treatments. May not be appropriate for hospice. Patient withdrawn and with very little willingness to engage and participate. During prior palliative care interaction with patient's son who would be 1 of the proxies, goals were aggressive, not comfort oriented, not interested in hospice . 05/17/18 patient flat with limited participation. Updated son via phone wishes to continue current treatments. == Symptom: --BATISTA- s/p surgery, intraparenchymal bleed. he has PRN Tylenol available, as well as prn norco. last used tylenol 04/30, [place] yesterday. Has been using norco 1-2x per day. Has been started on Toprol for BATISTA per neurology. Now status post cranioplasty. Does not verbalize or indicate pain for me today. More lethargic today. --Previously c/o LUE, LLE pain- using norco 1-2x per day. pain may be r/t decreased use, decreased ROM? --nausea-Prev. Reports intermittent nausea. He is unable to further quantify or qualify. receiving tube feeding at night. PO intake fluctuates, eats most of one meal, 25% of another. --Malnutrition: Has had episodes of intermittent nausea. Status post PEG placement. Poor oral intake during the day. Fluctuates. Dietitian continues to follow recommends tube feedings supplementing 12 hours overnight --flat/unengaged in rehab efforts- r/t brain injury. neuropsych rec. consider Amantadine . expected to require terminal makeup operator placement == Palliative care will continue to follow PRN during hospital course as condition evolves, to assist patient/decision-maker with understanding of medical conditions, weighing benefits/burdens of treatment options, for clarification of goals of treatment. Additionally will assist with any symptoms of palliative concern PRN Attestation Attestation: To help prompt me to consider important information that might be impacting today's encounter and assessment, information from prior notes written by myself or my colleagues may have been "brought forward" into today's note. My signature on this note, however, is an attestation that I personally performed the exam, history, and/or decision-making noted today, and, unless otherwise indicated, the interactions with patient, family, and staff as well as the review of records all occurred today. I also attest that the listed assessment and stated plan reflect my best clinical judgment today based on the combination of historical information, prior notes, and today's exam/ interactions. When time spent is documented, it refers only to time spent today by the signer, or if indicated, combined time spent today by collaborating physician/nurse practitioner.
--- NOTE | 2018-05-17 16:03 | XR ---
EXAM DATE: 05/17/2018 4:01 PM EDT AGE/SEX: 63 years / Male INDICATIONS: Shortness of breath. CLINICAL DATA: This is the patient's subsequent encounter. Patient reports that signs and symptoms h ave been present for 2 days and indicates a pain score of 0/10. MEDICAL/SURGICAL HISTORY: Chronic obstructive pulmonary disease. Asthma. None. COMPARISON: [facility] – [place], CHEST 1V SINGLE AP, 03/28/2018. . FINDINGS: A single AP view of the chest demonstrates the lungs to be symmetrically aerated without evidence of mass, infiltrate or effusion. The cardiomediastinal contours are unremarkable. Osseous structures a re intact. CONCLUSION: Negative examination. Electronically signed by: Enrico Keane MD 05/17/2018 4:01 PM EDT
[2018-05-18] MEDS: Oral Hygiene Kit OROPHARYNG SCH ×4 (03:24→17:25)
[2018-05-18] MEDS: Carboxymethylcellulose 0.5% Opth Drops 15 ML Bottle EACH EYE SCH ×2 (05:45→14:55)
[2018-05-18] MEDS: Sod Chloride 0.9% Inj 1,000 ML IV.CONT SCH ×2 (06:22→17:24)
--- NOTE | 2018-05-18 07:37 | P.PN ---
Subjective Interval history: Follow up on patient with right frontal IPH. Patient seen and examined. Patient complaining of headache. He denies any other medical complaints. He is stable. Afebrile. Physical Exam Vital signs: Vital Signs 05/17/18 07:51 05/17/18 08:47 05/17/18 09:00 Temperature 98.1 F Pulse Rate 120 H 118 H Respiratory Rate 17 20 Blood Pressure 96/50 L Pulse Oximetry 95 05/17/18 10:49 05/17/18 13:32 05/17/18 13:43 Temperature 98 F Pulse Rate 113 H 121 H Respiratory Rate 16 20 Blood Pressure 116/70 Pulse Oximetry 98 05/17/18 16:53 05/17/18 20:00 05/18/18 00:00 Temperature 98.3 F 99.2 F 97.8 F Pulse Rate 113 H 118 H 113 H Respiratory Rate 20 20 20 Blood Pressure 121/72 111/63 101/58 L Pulse Oximetry 98 98 96 05/18/18 04:00 Temperature 97.8 F Pulse Rate 104 H Respiratory Rate 19 Blood Pressure 106/64 Pulse Oximetry 98 Intake & Output 05/17/18 05/18/18 05/18/18 18:59 06:59 18:59 Intake Total 1100 / 1100 1000 / 1000 Balance 1100 / 1100 1000 / 1000 Weight 59.8 kg Intake: IV 1100 / 1100 1000 / 1000 NS Inj 1,000 ML @ 100 mls/hr IV 1000 / 1000 1000 / 1000 .CONT .Q10H [facility] Rx#:[id number] Rocephin Inj 1,000 MG In NS Inj 100 / 100 100 ML @ 200 mls/hr IV.SIG Q24H [facility] Rx#:[id number] Other: # Incontinent Voids 2 2 Date of Last Bowel Movement 05/17/18 Narrative: GENERAL: This is a thin, frail, -Congolese male patient. Lying in bed with covers over his head. Not in any acute distress. SKIN: Warm and dry. No generalized rash. HEENT: s/p right sided cranioplasty. Incision appears to be healing well. Onward intact. No sclera injection. No drainage. No nasal drainage. NECK: Trachea midline. Airway patent. CARDIOVASCULAR: Regular rate and rhythm without murmurs, gallops, or rubs. RESPIRATORY: No accessory muscle use. Breath sounds equal bilaterally. Poor effort, clear to auscultation anteriorly. GASTROINTESTINAL: Abdomen soft, non-tender, nondistended. PEG site C/D/I. MUSCULOSKELETAL: No cyanosis or edema. NEURO: Awake and alert. Moves right upper and lower extremity spontaneously. 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 Minimal toe wiggle appreciated on the left. Normal speech. PSYCHIATRIC: Calm and cooperative. Insight and judgement poor. - Urinary Catheter Management Indwelling Temp Sensing Catheter Cath placed during this visit: yes, but has since been removed by the nurse Reason for continuing: Not indwelling catheter Insertion date: 03/12/18 Insertion time: 05:30 Removal date: 03/25/18 Removal time: 18:00 Indwelling Urethral Catheter Cath placed during this visit: yes, but has since been removed by the nurse Reason for continuing: Decision to DC catheter Insertion date: 03/22/18 Insertion time: 17:30 Removal date: 03/25/18 Removal time: 18:00 Condom Cath placed during this visit: yes, but has since been removed by the nurse Reason for continuing: Hourly intake/output Insertion date: 05/13/18 Insertion time: 14:30 Removal date: 03/25/18 Removal time: 18:00 Results - Labs CBC & Chem 7: 05/17/18 09:53 05/17/18 07:35 Laboratory Results - last 24 hr 05/16/18 05/17/18 05/17/18 18:24 07:35 09:22 WBC RBC Hgb Hct MCV MCH MCHC RDW Plt Count MPV Neut % (Auto) Lymph % (Auto) [place] % (Auto) Eos % (Auto) Baso % (Auto) Neut # (Auto) Lymph # (Auto) [place] # (Auto) Eos # (Auto) Baso # (Auto) WBC Differential Differential Comment Sodium 141 Potassium 3.6 Chloride 110 H Carbon Dioxide 21.4 Anion Gap 10 BUN 12 Creatinine 0.72 Estimated GFR Greater than 89 Random Glucose 147 H Lactic Acid Calcium 8.2 L Urine Color Red Jeannine Urine Clarity Cloudy H Cloudy H Urine pH 8.0 7.0 Ur Specific [place] 1.013 1.018 Urine Protein 100 H 30 H Urine Glucose (UA) Negative Negative Urine Ketones Negative Negative Urine Occult Blood Large H Large H Urine Nitrate Negative Positive H Urine Bilirubin Negative Negative Urine Urobilinogen 2.0 H 4 or greater Ur Leukocyte Esterase Large H Large H Urine RBC Urine WBC Urine WBC Clumps Many H Urine Bacteria Moderate H Many H Urine Mucus Few H Micro UA Comment Culture indicated Culture indicated Ur Microscopic Review Not Reportable Urine Culture Comments Culture indicated Culture indicated 05/17/18 05/17/18 09:53 09:53 WBC 12.4 H RBC 3.67 L Hgb 11.0 L Hct 34.2 L MCV 93.2 MCH 29.9 MCHC 32.0 RDW 14.0 Plt Count 184 MPV 7.6 Neut % (Auto) 86.6 H Lymph % (Auto) 6.3 L [place] % (Auto) 6.9 Eos % (Auto) 0.0 Baso % (Auto) 0.2 Neut # (Auto) 10.7 H Lymph # (Auto) 0.8 L [place] # (Auto) 0.9 Eos # (Auto) 0.0 Baso # (Auto) 0.0 WBC Differential . Differential Comment Auto diff final Sodium Potassium Chloride Carbon Dioxide Anion Gap BUN Creatinine Estimated GFR Random Glucose Lactic Acid 2.0 Calcium Urine Color Urine Clarity Urine pH Ur Specific [place] Urine Protein Urine Glucose (UA) Urine Ketones Urine Occult Blood Urine Nitrate Urine Bilirubin Urine Urobilinogen Ur Leukocyte Esterase Urine RBC Urine WBC Urine WBC Clumps Urine Bacteria Urine Mucus Micro UA Comment Ur Microscopic Review Urine Culture Comments Microbiology 05/16/18 18:24 Clean Catch Urine Urine Culture - Preliminary gram negative rods - Imaging Impressions Chest X-Ray 05/17/18 00:00 CONCLUSION: Negative examination. - Procedures PEG 7 -25 right decompressive craniectomy 03/22/18 with placement of ICP monitor by Dr. Chacko, ma'ed 03/23/18 03/22/18 Right frontotemporal parietal decompressive craniectomy and Duroplasty 03/22/18 Left frontal bur hole with placement of an intracranial pressure monitor Assessment and Plan - Assessment (1) Intracranial hemorrhage following injury Code(s): S06.309A - Unspecified focal traumatic brain injury with loss of consciousness of unspecified duration, initial encounter Status: Acute (2) Traumatic brain injury Code(s): S06.9X9A - Unspecified intracranial injury with loss of consciousness of unspecified duration, initial encounter Status: Acute (3) Fall Code(s): W19.XXXA - Unspecified fall, initial encounter Status: Chronic (4) Cocaine abuse Code(s): F14.10 - Cocaine abuse, uncomplicated Status: Chronic (5) ETOH abuse Code(s): F10.10 - Alcohol abuse, uncomplicated Status: Chronic (6) Dysphagia Code(s): R13.10 - Dysphagia, unspecified Status: Acute - Plan 62-year-old male admitted secondary to intracranial hemorrhage Pseudomonas UTI - sensitivities reviewed, D/C IV Rocephin and change to Cipro Tachycardia, possibly due to UTI EKG reviewed, sinus tach - increase free water flushes - continue on IVF - continue to monitor HR 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 SAH bilat frontal lobes, right parietal, temporal. Right frontotemporal SDH status post emergency craniectomy for decompression for worsening midline shift right to left 2.1 cm s/p Fall, ?syncope Daily alcohol use/Cocaine abuse - s/p Right frontotemporal parietal decompressive craniectomy and Duroplasty by Dr. Chacko. - s/p right cranioplasty 05/13/18 - Continue on Keppra - no seizure activity reported - Continue with PT/OT - PT recommends rehab at discharge - Seizure precautions Palliative care following, appreciate assistance. Per note, patient has improved tremendously. Feels he has capacity to make medical decisions with support of family. Recommended psych consult to assess capacity. Psychiatry consulted, appreciate assistance. - Dr. Narvaez following, appreciate assistance Headache repeat CT head 04/[address] head 04/26 shows stable exam with large right craniectomy defect and 5 mm midline shift, no hemorrhage CTA head negative -Neurology following, appreciate assistance. Started on Topamax 50mg BID for likely vascular component. Still with headache. Increase Topamax to 75mg BID. Dysphagia s/p PEG tube placement 03/30/18 - ST re-evaluated and patient given puree diet with nectar thickened liquids. - Calorie count completed, inadequate intake. 04/20 TF resumed - Jevity 1.5 at 75 mls per hour 12 hours at night 7pm to 7am. - Affiliate Manager following, recommends continued nighttime feeding and supplement Acute respiratory failure secondary to failure to protect airway-resolved extubated MRSA pneumonia, status post treatment with IV vancomycin and Rocephin Tobacco abuse Extubated 03/25/2018 - Continue as needed duo nebs - continue to monitor respiratory status - Supplemental oxygen as needed DVT prophylaxis SCDs No chemoprophylaxis anticoagulation due to recent intracranial bleed Code Status: FULL Discussed Condition With: patient, nursing staff, Dr. Lopez Discharge Planning: Difficult placement. No payor source. CM assisting with ongoing discharge plan. Plan for cranioplasty in the near future by Dr. Chacko. (2) Traumatic brain injury Qualifiers: Encounter type: subsequent encounter
[2018-05-18] MEDS: Folic Acid 1 MG Tablet PO SCH (08:15)
[2018-05-18] MEDS: Topiramate 25 MG Tablet PO SCH ×2 (08:17→20:57)
[2018-05-18] MEDS: Sennosides Liq 8.8 MG/5 ML UDC NG/OG SCH ×2 (08:19→20:58)
[2018-05-18] MEDS: Senna/Docusate Sodium 8.6/50 MG Tablet PO SCH ×2 (08:20→20:57)
[2018-05-18] MEDS: Ciprofloxacin 500 MG Tablet PO SCH (20:57)
[2018-05-19] MEDS: Carboxymethylcellulose 0.5% Opth Drops 15 ML Bottle EACH EYE SCH ×3 (00:15→14:10)
[2018-05-19] MEDS: Oral Hygiene Kit OROPHARYNG SCH ×4 (00:15→20:41)
[2018-05-19] MEDS: Sod Chloride 0.9% Inj 1,000 ML IV.CONT SCH (06:40)
[2018-05-19] MEDS: Topiramate 25 MG Tablet PO SCH ×2 (08:57→20:34)
[2018-05-19] MEDS: Ciprofloxacin 500 MG Tablet PO SCH ×2 (08:58→20:34)
[2018-05-19] MEDS: Sennosides Liq 8.8 MG/5 ML UDC NG/OG SCH (08:59)
[2018-05-19] MEDS: Senna/Docusate Sodium 8.6/50 MG Tablet PO SCH ×2 (09:00→20:34)
--- NOTE | 2018-05-19 09:10 | P.PN ---
Subjective Interval history: Follow up on patient with right frontal IPH. Patient seen and examined. Patient is a poor historian. Patient complaining of headache. Today he states he has had chest pain for the past 3 days although he had denied complaints of chest pain for the past 2 days when asked. He will not verbalize any specifics in regards to his chest pain. He denies any shortness of breath. He denies any N/V or abdominal pain. Today reports dysuria although denied yesterday. Physical Exam Vital signs: Vital Signs 05/18/18 16:00 05/18/18 20:00 05/19/18 00:00 Temperature 98.3 F 97.8 F 98 F Pulse Rate 101 H 95 H 103 H Respiratory Rate 19 20 20 Blood Pressure 117/65 131/83 121/69 Pulse Oximetry 100 97 96 05/19/18 00:10 05/19/18 04:00 05/19/18 08:33 Temperature 98.1 F 98.5 F Pulse Rate 105 H 101 H 89 Respiratory Rate 18 16 Blood Pressure 117/75 117/74 Pulse Oximetry 97 97 Intake & Output 05/18/18 05/19/18 05/19/18 18:59 06:59 18:59 Intake Total 1360 / 1360 2100 / 2100 Balance 1360 / 1360 2100 / 2100 Weight 60.4 kg Intake: IV 1000 / 1000 1000 / 1000 NS Inj 1,000 ML @ 75 mls/hr IV. 1000 / 1000 1000 / 1000 CONT .[id number] [facility] Rx#:[id number] Oral 360 / 360 Tube Feeding 900 / 900 Water Bolus Amount 200 / 200 Other: # Incontinent Voids 2 Date of Last Bowel Movement 05/18/18 Narrative: GENERAL: This is a thin, frail, -Y[place]i male patient. Awake and alert. Not in any acute distress. SKIN: Warm and dry. No generalized rash. HEENT: s/p right sided cranioplasty. Incision appears to be healing well. [place] intact. No sclera injection. No drainage. No nasal drainage. NECK: Trachea midline. Airway patent. CARDIOVASCULAR: Regular rate and rhythm without murmurs, gallops, or rubs. RESPIRATORY: No accessory muscle use. Breath sounds equal bilaterally. Poor effort, clear to auscultation anteriorly. GASTROINTESTINAL: Abdomen soft, non-tender, nondistended. PEG site C/D/I. MUSCULOSKELETAL: No cyanosis or edema. NEURO: Awake and alert. Moves right upper and lower extremity spontaneously. 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 Minimal toe wiggle appreciated on the left. Normal speech. PSYCHIATRIC: Calm and cooperative. Insight and judgement poor. - Urinary Catheter Management Indwelling Temp Sensing Catheter Cath placed during this visit: yes, but has since been removed by the nurse Reason for continuing: Not indwelling catheter Insertion date: 03/12/18 Insertion time: 05:30 Removal date: 03/25/18 Removal time: 18:00 Indwelling Urethral Catheter Cath placed during this visit: yes, but has since been removed by the nurse Reason for continuing: Decision to DC catheter Insertion date: 03/22/18 Insertion time: 17:30 Removal date: 03/25/18 Removal time: 18:00 Condom Cath placed during this visit: yes, but has since been removed by the nurse Reason for continuing: Hourly intake/output Insertion date: 05/13/18 Insertion time: 14:30 Removal date: 03/25/18 Removal time: 18:00 Results - Labs CBC & Chem 7: 05/17/18 09:53 05/17/18 07:35 Microbiology 05/17/18 14:50 Blood - Peripheral Aerobic Blood Culture - Preliminary No growth in 1 day 05/17/18 14:50 Blood - Peripheral Anaerobic Blood Culture - Preliminary No growth in 1 day 05/17/18 14:55 Blood - Peripheral Aerobic Blood Culture - Preliminary No growth in 1 day 05/17/18 14:55 Blood - Peripheral Anaerobic Blood Culture - Preliminary No growth in 1 day 05/16/18 18:24 Clean Catch Urine Urine Culture - Final Pseudomonas aeruginosa - Procedures PEG 7 - right decompressive craniectomy 03/22/18 with placement of ICP monitor by Dr. Chacko, pr'ed 03/23/18 03/22/18 Right frontotemporal parietal decompressive craniectomy and Duroplasty 03/22/18 Left frontal bur hole with placement of an intracranial pressure monitor Assessment and Plan - Assessment (1) Intracranial hemorrhage following injury Code(s): S06.309A - Unspecified focal traumatic brain injury with loss of consciousness of unspecified duration, initial encounter Status: Acute (2) Traumatic brain injury Code(s): S06.9X9A - Unspecified intracranial injury with loss of consciousness of unspecified duration, initial encounter Status: Acute (3) Fall Code(s): W19.XXXA - Unspecified fall, initial encounter Status: Chronic (4) Cocaine abuse Code(s): F14.10 - Cocaine abuse, uncomplicated Status: Chronic (5) ETOH abuse Code(s): F10.10 - Alcohol abuse, uncomplicated Status: Chronic (6) Dysphagia Code(s): R13.10 - Dysphagia, unspecified Status: Acute - Plan 62-year-old male admitted secondary to intracranial hemorrhage Chest pain x 3 days unknown specifics, patient is poor historian obtain serial troponins and EKGs continuous cardiac monitoring Pseudomonas UTI - continue on Cipro Tachycardia, possibly due to UTI EKG reviewed, sinus tach - increase free water flushes - continue on IVF - continue to monitor HR Right frontal IPH 53.3 cm. SAH bilat frontal lobes, right parietal, temporal. Right frontotemporal SDH status post emergency craniectomy for decompression for worsening midline shift right to left 2.1 cm s/p Fall, ?syncope Daily alcohol use/Cocaine abuse - s/p Right frontotemporal parietal decompressive craniectomy and Duroplasty by Dr. Chacko. - s/p right cranioplasty 05/13/18 - Continue on Keppra - no seizure activity reported - Continue with PT/OT - PT recommends rehab at discharge - Seizure precautions Palliative care following, appreciate assistance. Per note, patient has improved tremendously. Feels he has capacity to make medical decisions with support of family. Recommended psych consult to assess capacity. Psychiatry consulted, appreciate assistance. - Dr. Narvaez following, appreciate assistance Headache repeat CT head 04/[address] head 04/26 shows stable exam with large right craniectomy defect and 5 mm midline shift, no hemorrhage CTA head negative -Neurology following, appreciate assistance. Started on Topamax 50mg BID for likely vascular component. Topamax increased 05/18 to 75mg BID. Dysphagia s/p PEG tube placement 03/30/18 - ST re-evaluated and patient given puree diet with nectar thickened liquids. - Calorie count completed, inadequate intake. 04/20 TF resumed - Jevity 1.5 at 75 mls per hour 12 hours at night 7pm to 7am. - Line Technician following, recommends continued nighttime feeding and supplement Acute respiratory failure secondary to failure to protect airway-resolved extubated MRSA pneumonia, status post treatment with IV vancomycin and Rocephin Tobacco abuse Extubated 03/25/2018 - Continue as needed duo nebs - continue to monitor respiratory status - Supplemental oxygen as needed DVT prophylaxis SCDs No chemoprophylaxis anticoagulation due to recent intracranial bleed Code Status: FULL Discussed Condition With: patient, nursing staff, Dr. Lopez Discharge Planning: Difficult placement. No payor source. CM assisting with ongoing discharge plan. Plan for cranioplasty in the near future by Dr. Chacko. (2) Traumatic brain injury Qualifiers: Encounter type: subsequent encounter
[2018-05-19 12:56] LABS: Baso % (Auto) 0.4 % (0.0-2.0); Eos # (Auto) 0.1 th/mm3 (0.0-0.4); Eos % (Auto) 1.2 % (0.0-4.0); Hemoglobin 11.2 gm/dL (13.0-17.0); Lymph # (Auto) 0.8 th/mm3 (1.0-4.8); Lymph % (Auto) 8.4 % (9.0-44.0); Mean Corpuscular HGB Conc 31.9 % (32.0-36.0); Mean Corpuscular Hemoglobin 29.8 pg (27.0-34.0); Mean Corpuscular Volume 93.4 fL (80.0-100.0); Mean Platelet Volume 8.1 fL (7.0-11.0); Mono # (Auto) 0.7 th/mm3 (0.0-0.9); Mono % (Auto) 7.5 % (0.0-8.0); Neut # (Auto) 7.5 th/mm3 (1.8-7.7); Neut % (Auto) 82.5 % (16.0-70.0); Platelet Count 188 th/mm3 (150-450); Red Blood Count 3.75 mil/mm3 (4.50-5.90); Red Cell Distribution Width 14.1 % (11.6-17.2); White Blood Count 9.1 th/mm3 (4.0-11.0)
[2018-05-19 13:18] LABS: Alanine Aminotransferase 8 U/L (12-78); Albumin 2.3 g/dL (3.4-5.0); Anion Gap 13 meq/L (5-15); Aspartate Aminotransferase 11 U/L (15-37); Blood Urea Nitrogen 10 mg/dL (7-18); Calcium 8.6 mg/dL (8.5-10.1); Carbon Dioxide 20.5 meq/L (21.0-32.0); Chloride 111 meq/L (98-107); Glomerular Filtration Rate Greater Than 89 mL/min (>89); Glucose,Random 112 mg/dL (74-106); Magnesium 2.1 mg/dL (1.5-2.5); Potassium 3.7 meq/L (3.5-5.1); Sodium 144 meq/L (136-145)
[2018-05-19 13:20] LABS: Alkaline Phosphatase 71 U/L (45-117)
[2018-05-19 14:09] LABS: Creatine Kinase 37 U/L (39-308)
[2018-05-19 16:56] LABS: Creatine Kinase 30 U/L (39-308)
--- NOTE | 2018-05-19 18:35 | ECG ---
Date Performed: 05/19/2018 Time Performed: 09:23:56 PTAGE: 63 years EKG: Sinus rhythm WITH SHORT OR INTERVAL WITH OCCASIONAL SUPRAVENTRICULAR PREMATURE COMPLEXES BORDERLINE ECG PREVIOUS TRACING : 05/16/2018 17.57 Compared to previous tracing, sinus tachycardia is no long er present DOCTOR: Ricky Charles Interpretating Date/Time 05/19/2018 18:34:51
[2018-05-19 23:43] LABS: Creatine Kinase 22 U/L (39-308)
[2018-05-20] MEDS: Sod Chloride 0.9% Inj 1,000 ML IV.CONT SCH ×3 (01:44→21:52)
[2018-05-20] MEDS: Sennosides Liq 8.8 MG/5 ML UDC NG/OG SCH ×3 (01:44→22:28)
[2018-05-20] MEDS: Carboxymethylcellulose 0.5% Opth Drops 15 ML Bottle EACH EYE SCH ×3 (01:45→15:57)
[2018-05-20] MEDS: Oral Hygiene Kit OROPHARYNG SCH ×4 (01:45→15:57)
--- NOTE | 2018-05-20 07:31 | P.PN ---
Subjective Interval history: Patient is stable. No significant change. Patient continues to have complaints of headache and chest pain both of which he says is "so-so". Patient will not give any further specifics. He is afebrile. Vital signs are stable. Physical Exam Vital signs: Vital Signs 05/19/18 08:33 05/19/18 09:49 05/19/18 11:57 Temperature 98.5 F Pulse Rate 89 88 99 H Respiratory Rate 16 Blood Pressure 117/74 Pulse Oximetry 97 05/19/18 12:00 05/19/18 16:00 05/19/18 21:32 Temperature 97.3 F L 97.9 F 97.9 F Pulse Rate 96 H 72 81 Respiratory Rate 19 18 16 Blood Pressure 145/89 H 141/84 H 129/77 Pulse Oximetry 98 99 98 05/19/18 23:55 05/20/18 01:09 05/20/18 03:45 Temperature 97.5 F L Pulse Rate 85 82 78 Respiratory Rate 18 Blood Pressure 129/78 Pulse Oximetry 94 L 05/20/18 05:07 Temperature 98.2 F Pulse Rate 80 Respiratory Rate 16 Blood Pressure 132/65 Pulse Oximetry 98 Intake & Output 05/19/18 05/20/18 05/20/18 18:59 06:59 18:59 Intake Total 300 / 300 2344 / 2344 Balance 300 / 300 2344 / 2344 Intake: IV 1000 / 1000 NS Inj 1,000 ML @ 75 mls/hr IV. 1000 / 1000 CONT .[id number] [facility] Rx#:[id number] Tube Feeding 1344 / 1344 Water Bolus Amount 300 / 300 Other: # Voids 2 Date of Last Bowel Movement 05/19/18 # Bowel Movements 1 Narrative: GENERAL: This is a thin, frail, -Burmese male patient. Awake and alert. Not in any acute distress. Poor historian. SKIN: Warm and dry. No generalized rash. HEENT: s/p right sided cranioplasty. Incision appears to be healing well. [place] intact. No sclera injection. No drainage. No nasal drainage. NECK: Trachea midline. Airway patent. CARDIOVASCULAR: Regular rate and rhythm without murmurs, gallops, or rubs. RESPIRATORY: No accessory muscle use. Breath sounds equal bilaterally. Poor effort, clear to auscultation anteriorly. GASTROINTESTINAL: Abdomen soft, non-tender, nondistended. PEG site C/D/I. MUSCULOSKELETAL: No cyanosis or edema. NEURO: Awake and alert. Moves right upper and lower extremity spontaneously. Very weak narrative writer on the left. Minimal toe wiggle appreciated on the left. Normal speech. PSYCHIATRIC: Calm and cooperative. Insight and judgement poor. - Urinary Catheter Management Indwelling Temp Sensing Catheter Cath placed during this visit: yes, but has since been removed by the nurse Reason for continuing: Not indwelling catheter Insertion date: 03/12/18 Insertion time: 05:30 Removal date: 03/25/18 Removal time: 18:00 Indwelling Urethral Catheter Cath placed during this visit: yes, but has since been removed by the nurse Reason for continuing: Decision to DC catheter Insertion date: 03/22/18 Insertion time: 17:30 Removal date: 03/25/18 Removal time: 18:00 Condom Cath placed during this visit: yes, but has since been removed by the nurse Reason for continuing: Hourly intake/output Insertion date: 05/13/18 Insertion time: 14:30 Removal date: 03/25/18 Removal time: 18:00 Results - Labs CBC & Chem 7: 05/19/18 12:08 05/19/18 12:08 Laboratory Results - last 24 hr 05/19/18 05/19/18 05/19/18 12:08 12:08 12:08 WBC 9.1 RBC 3.75 L Hgb 11.2 L Hct 35.0 L MCV 93.4 MCH 29.8 MCHC 31.9 L RDW 14.1 Plt Count 188 MPV 8.1 Neut % (Auto) 82.5 H Lymph % (Auto) 8.4 L [place] % (Auto) 7.5 Eos % (Auto) 1.2 Baso % (Auto) 0.4 Neut # (Auto) 7.5 Lymph # (Auto) 0.8 L [place] # (Auto) 0.7 Eos # (Auto) 0.1 Baso # (Auto) 0.0 WBC Differential . Differential Comment Auto diff final Sodium 144 Potassium 3.7 Chloride 111 H Carbon Dioxide 20.5 L Anion Gap 13 BUN 10 Creatinine 0.55 L Estimated GFR Greater than 89 Random Glucose 112 H Calcium 8.6 Magnesium 2.1 Total Bilirubin 0.3 AST 11 L ALT 8 L Alkaline Phosphatase 71 Total Creatine Kinase 37 L Troponin I Less than 0.02 L Total Protein 7.0 Albumin 2.3 L 05/19/18 05/19/18 16:02 22:32 WBC RBC Hgb Hct MCV MCH MCHC RDW Plt Count MPV Neut % (Auto) Lymph % (Auto) [place] % (Auto) Eos % (Auto) Baso % (Auto) Neut # (Auto) Lymph # (Auto) [place] # (Auto) Eos # (Auto) Baso # (Auto) WBC Differential Differential Comment Sodium Potassium Chloride Carbon Dioxide Anion Gap BUN Creatinine Estimated GFR Random Glucose Calcium Magnesium Total Bilirubin AST ALT Alkaline Phosphatase Total Creatine Kinase 30 L 22 L Troponin I Less than 0.02 L Less than 0.02 L Total Protein Albumin Microbiology 05/17/18 14:50 Blood - Peripheral Aerobic Blood Culture - Preliminary No growth in 2 days 05/17/18 14:50 Blood - Peripheral Anaerobic Blood Culture - Preliminary No growth in 2 days 05/17/18 14:55 Blood - Peripheral Aerobic Blood Culture - Preliminary No growth in 2 days 05/17/18 14:55 Blood - Peripheral Anaerobic Blood Culture - Preliminary No growth in 2 days - Procedures PEG 7 -25 right decompressive craniectomy 03/22/18 with placement of ICP monitor by Dr. Chacko, ct'ed 03/23/18 03/22/18 Right frontotemporal parietal decompressive craniectomy and Duroplasty 03/22/18 Left frontal bur hole with placement of an intracranial pressure monitor Assessment and Plan - Assessment (1) Intracranial hemorrhage following injury Code(s): S06.309A - Unspecified focal traumatic brain injury with loss of consciousness of unspecified duration, initial encounter Status: Acute (2) Traumatic brain injury Code(s): S06.9X9A - Unspecified intracranial injury with loss of consciousness of unspecified duration, initial encounter Status: Acute (3) Fall Code(s): W19.XXXA - Unspecified fall, initial encounter Status: Chronic (4) Cocaine abuse Code(s): F14.10 - Cocaine abuse, uncomplicated Status: Chronic (5) ETOH abuse Code(s): F10.10 - Alcohol abuse, uncomplicated Status: Chronic (6) Dysphagia Code(s): R13.10 - Dysphagia, unspecified Status: Acute - Plan 62-year-old male admitted secondary to intracranial hemorrhage Chest pain x 3 days unknown specifics, patient is poor historian Trops neg x 3 continuous cardiac monitoring Pseudomonas UTI - continue on Cipro Tachycardia, possibly due to UTI EKG reviewed, sinus tach - increase free water flushes - continue on IVF - continue to monitor HR Right frontal IPH 53.3 cm. SAH bilat frontal lobes, right parietal, temporal. Right frontotemporal SDH status post emergency craniectomy for decompression for worsening midline shift right to left 2.1 cm s/p Fall, ?syncope Daily alcohol use/Cocaine abuse - s/p Right frontotemporal parietal decompressive craniectomy and Duroplasty by Dr. Chacko. - s/p right cranioplasty 05/13/18 - Continue on Keppra - no seizure activity reported - Continue with PT/OT - PT recommends rehab at discharge - Seizure precautions Palliative care following, appreciate assistance. Per note, patient has improved tremendously. Feels he has capacity to make medical decisions with support of family. Recommended psych consult to assess capacity. Psychiatry consulted, appreciate assistance. - Dr. Narvaez following, appreciate assistance Headache repeat CT head 04/[address] head 04/26 shows stable exam with large right craniectomy defect and 5 mm midline shift, no hemorrhage CTA head negative -Neurology following, appreciate assistance. Started on Topamax 50mg BID for likely vascular component. Topamax increased 05/18 to 75mg BID. Dysphagia s/p PEG tube placement 03/30/18 - ST re-evaluated and patient given puree diet with nectar thickened liquids. - Calorie count completed, inadequate intake. 04/20 TF resumed - Jevity 1.5 at 75 mls per hour 12 hours at night 7pm to 7am. - Produce Buyer following, recommends continued nighttime feeding and supplement Acute respiratory failure secondary to failure to protect airway-resolved extubated MRSA pneumonia, status post treatment with IV vancomycin and Rocephin Tobacco abuse Extubated 03/25/2018 - Continue as needed duo nebs - continue to monitor respiratory status - Supplemental oxygen as needed DVT prophylaxis SCDs No chemoprophylaxis anticoagulation due to recent intracranial bleed Code Status: FULL Discussed Condition With: patient, nursing staff, Dr. Lopez Discharge Planning: Difficult placement. No payor source. CM assisting with ongoing discharge plan. Plan for cranioplasty in the near future by Dr. Chacko. (2) Traumatic brain injury Qualifiers: Encounter type: subsequent encounter
[2018-05-20] MEDS: Topiramate 25 MG Tablet PO SCH ×2 (08:23→21:55)
[2018-05-20] MEDS: Ciprofloxacin 500 MG Tablet PO SCH (08:24)
[2018-05-20] MEDS: Senna/Docusate Sodium 8.6/50 MG Tablet PO SCH ×2 (08:26→22:28)
--- NOTE | 2018-05-20 09:19 | ECG ---
Date Performed: 05/19/2018 Time Performed: 15:51:07 PTAGE: 63 years EKG: Sinus rhythm WITH SHORT WA INTERVAL SEPTAL MYOCARDIAL INFARCTION , PROBABLY OLD ABNORMAL ECG Since the PREVIOUS TRACING , no significant change noted PREVIOUS TRACIN05/19/2018 09.23 DOCTOR: Wilson Nation Interpretating Date/Time 05/20/2018 09:18:49
--- NOTE | 2018-05-20 09:21 | ECG ---
Date Performed: 05/19/2018 Time Performed: 21:13:32 PTAGE: 63 years EKG: Sinus rhythm WITH PACs POSSIBLE RIGHT VENTRICULAR CONDUCTION DELAY SEPTAL MYOCARDIAL INFARCTION , OF INDETERMINAT E AGE BASELINE WANDERING ARTIFACT SIGNIFICANTLY LIMITS ACCURACEY OF INTERPRETATION ABNORMAL ECG PREVIOUS TRACING : 05/19/2018 15.51 DOCTOR: Wilson Nation Interpretating Date/Time 05/20/2018 09:20:17
[2018-05-20] MEDS: Ciprofloxacin 500 MG Tablet G-TUBE SCH (21:55)
[2018-05-21] MEDS: Oral Hygiene Kit OROPHARYNG SCH ×3 (04:44→17:54)
[2018-05-21] MEDS: Carboxymethylcellulose 0.5% Opth Drops 15 ML Bottle EACH EYE SCH ×3 (04:44→21:20)
[2018-05-21] MEDS: Topiramate 25 MG Tablet PO SCH ×2 (08:02→21:20)
[2018-05-21] MEDS: Ciprofloxacin 500 MG Tablet G-TUBE SCH ×2 (08:03→21:20)
[2018-05-21] MEDS: Senna/Docusate Sodium 8.6/50 MG Tablet PO SCH ×2 (08:03→21:21)
[2018-05-21] MEDS: Sennosides Liq 8.8 MG/5 ML UDC NG/OG SCH ×2 (08:03→21:21)
--- NOTE | 2018-05-21 10:38 | P.PN ---
Subjective Interval history: Follow-up on patient with IPH, SAH, SDH. Patient seen and examined. Patient is stable. No significant change. Discussed with nursing staff, no acute events noted overnight. Physical Exam Vital signs: Vital Signs 05/20/18 12:47 05/20/18 13:40 05/20/18 16:00 Temperature 97.3 F L 97.4 F L Pulse Rate 75 76 80 Respiratory Rate 16 12 Blood Pressure 141/91 H 150/87 H Pulse Oximetry 99 99 05/20/18 20:00 05/21/18 00:00 05/21/18 04:00 Temperature 97.6 F 97.7 F 97.6 F Pulse Rate 80 81 Respiratory Rate 18 18 18 Blood Pressure 139/81 138/75 130/78 Pulse Oximetry 100 99 98 05/21/18 04:01 05/21/18 07:51 05/21/18 08:14 Temperature 98.1 F Pulse Rate 81 79 Respiratory Rate 14 14 Blood Pressure 132/76 Pulse Oximetry 99 Intake & Output 05/20/18 05/21/18 05/21/18 18:59 06:59 18:59 Intake Total 200 / 200 2125 / 2125 Balance 200 / 200 2125 / 2125 Weight 61.6 kg Intake: IV 1000 / 1000 NS Inj 1,000 ML @ 75 mls/hr IV. 1000 / 1000 CONT .[id number] [facility] Rx#:[id number] Tube Feeding 925 / 925 Tube Irrigant 200 / 200 Water Bolus Amount 200 / 200 Other: # Voids 2 # Incontinent Voids 3 2 # Urine Diapers 2 Date of Last Bowel Movement 05/20/18 05/20/18 # Bowel Movements 1 Narrative: GENERAL: This is a thin, frail, -[place] male patient, INAD. Awake and alert. Poor historian. SKIN: Warm and dry. No generalized rash. HEENT: s/p right sided cranioplasty. Incision appears to be healing well. [place] intact. No sclera injection. No drainage. No nasal drainage. NECK: Trachea midline. Airway patent. CARDIOVASCULAR: Regular rate and rhythm without murmurs, gallops, or rubs. RESPIRATORY: No accessory muscle use. Breath sounds equal bilaterally. Poor effort, clear to auscultation anteriorly. GASTROINTESTINAL: Abdomen soft, non-tender, nondistended. PEG site C/D/I. MUSCULOSKELETAL: No cyanosis or edema. NEURO: Awake and alert. Moves right upper and lower extremity spontaneously. Very weak header operator on the left. Minimal toe wiggle appreciated on the left. Normal speech. PSYCHIATRIC: Calm and cooperative. Insight and judgement poor. - Urinary Catheter Management Indwelling Temp Sensing Catheter Cath placed during this visit: yes, but has since been removed by the nurse Reason for continuing: Not indwelling catheter Insertion date: 03/12/18 Insertion time: 05:30 Removal date: 03/25/18 Removal time: 18:00 Indwelling Urethral Catheter Cath placed during this visit: yes, but has since been removed by the nurse Reason for continuing: Decision to DC catheter Insertion date: 03/22/18 Insertion time: 17:30 Removal date: 03/25/18 Removal time: 18:00 Condom Cath placed during this visit: yes, but has since been removed by the nurse Reason for continuing: Hourly intake/output Insertion date: 05/13/18 Insertion time: 14:30 Removal date: 03/25/18 Removal time: 18:00 Results - Labs CBC & Chem 7: 05/19/18 12:08 05/19/18 12:08 Microbiology 05/17/18 14:50 Blood - Peripheral Aerobic Blood Culture - Preliminary No growth in 3 days 05/17/18 14:50 Blood - Peripheral Anaerobic Blood Culture - Preliminary No growth in 3 days 05/17/18 14:55 Blood - Peripheral Aerobic Blood Culture - Preliminary No growth in 3 days 05/17/18 14:55 Blood - Peripheral Anaerobic Blood Culture - Preliminary No growth in 3 days - Imaging ITS Impressions Abdomen/Pelvis CT 03/13/18 00:00 CONCLUSION: 1. Moderate constipation with diffuse ileus. Rectum distended to 8 cm with stool. No small bowel obstruction. No significant free fluid. No free air. 2. Dodge catheter in bladder. NG coiled in stomach. Trace right pleural effusion. Abdomen X-Ray 03/17/18 08:00 CONCLUSION: Reduction in the gaseous distention of the colon. Head CT 04/26/18 00:00 CONCLUSION: 1. Stable exam with large right craniectomy defect and 5 mm of midline shift. No hemorrhage appreciated. . Head CTA 04/26/18 00:00 CONCLUSION: 1. Negative CTA Head. Chest X-Ray 05/17/18 00:00 CONCLUSION: Negative examination. - Procedures PEG 7 -25 right decompressive craniectomy 03/22/18 with placement of ICP monitor by Dr. Chacko, ca'ed 03/23/18 03/22/18 Right frontotemporal parietal decompressive craniectomy and Duroplasty 03/22/18 Left frontal bur hole with placement of an intracranial pressure monitor Assessment and Plan - Assessment (1) Intracranial hemorrhage following injury Code(s): S06.309A - Unspecified focal traumatic brain injury with loss of consciousness of unspecified duration, initial encounter Status: Acute (2) Traumatic brain injury Code(s): S06.9X9A - Unspecified intracranial injury with loss of consciousness of unspecified duration, initial encounter Status: Acute (3) Fall Code(s): W19.XXXA - Unspecified fall, initial encounter Status: Chronic (4) Cocaine abuse Code(s): F14.10 - Cocaine abuse, uncomplicated Status: Chronic (5) ETOH abuse Code(s): F10.10 - Alcohol abuse, uncomplicated Status: Chronic (6) Dysphagia Code(s): R13.10 - Dysphagia, unspecified Status: Acute - Plan 62-year-old male admitted secondary to intracranial hemorrhage Pseudomonas UTI - continue on Cipro to complete 7 day treatment Tachycardia, possibly due to UTI HR improved EKG reviewed, sinus tach - continue on increased free water flushes - continue to monitor HR Right frontal IPH 53.3 cm. SAH bilat frontal lobes, right parietal, temporal. Right frontotemporal SDH status post emergency craniectomy for decompression for worsening midline shift right to left 2.1 cm s/p Fall, ?syncope Daily alcohol use/Cocaine abuse - s/p Right frontotemporal parietal decompressive craniectomy and Duroplasty by Dr. Chacko. - s/p right cranioplasty 05/13/18 - Continue on Keppra - no seizure activity reported - Continue with PT/OT - PT recommends rehab at discharge - Seizure precautions Palliative care following, appreciate assistance. Per note, patient has improved tremendously. Feels he has capacity to make medical decisions with support of family. Recommended psych consult to assess capacity. Psychiatry consulted, appreciate assistance. - Dr. Narvaez following, appreciate assistance Headache repeat CT head 04/[address] head 04/26 shows stable exam with large right craniectomy defect and 5 mm midline shift, no hemorrhage CTA head negative -Neurology following, appreciate assistance. Started on Topamax 50mg BID for likely vascular component. Topamax increased 05/18 to 75mg BID. Dysphagia s/p PEG tube placement 03/30/18 - ST re-evaluated and patient given puree diet with nectar thickened liquids. - Calorie count completed, inadequate intake. 04/20 TF resumed - Jevity 1.5 at 75 mls per hour 12 hours at night 7pm to 7am. - Bean Snipper following, recommends continued nighttime feeding and supplement Acute respiratory failure secondary to failure to protect airway-resolved extubated MRSA pneumonia, status post treatment with IV vancomycin and Rocephin Tobacco abuse Extubated 03/25/2018 - Continue as needed duo nebs - continue to monitor respiratory status - Supplemental oxygen as needed DVT prophylaxis SCDs No chemoprophylaxis anticoagulation due to recent intracranial bleed Code Status: FULL Discussed Condition With: patient, nursing staff, Dr. Lopez Discharge Planning: Difficult placement. No payor source. CM assisting with ongoing discharge plan. (2) Traumatic brain injury Qualifiers: Encounter type: subsequent encounter
[2018-05-21] MEDS: Sod Chloride 0.9% Inj 1,000 ML IV.CONT SCH (11:48)
[2018-05-22] MEDS: Oral Hygiene Kit OROPHARYNG SCH ×3 (04:40→19:27)
[2018-05-22] MEDS: Carboxymethylcellulose 0.5% Opth Drops 15 ML Bottle EACH EYE SCH ×4 (07:12→23:04)
--- NOTE | 2018-05-22 07:36 | P.PN ---
Subjective Interval history: Patient is stable. No significant change. States he does not feel like eating because he is very stressed. He is asking to be left alone. Discussed with nursing staff, no acute issues noted. Physical Exam Vital signs: Vital Signs 05/21/18 07:51 05/21/18 08:14 05/21/18 12:00 Temperature 98.1 F 98.1 F Pulse Rate 79 76 Respiratory Rate 14 14 16 Blood Pressure 132/76 134/81 Pulse Oximetry 99 100 05/21/18 18:08 05/21/18 20:00 05/22/18 00:00 Temperature 97.9 F 97.6 F 97.7 F Pulse Rate 76 77 84 Respiratory Rate 12 18 18 Blood Pressure 144/75 H 140/81 132/84 Pulse Oximetry 98 100 98 05/22/18 04:00 Temperature 97.6 F Pulse Rate 79 Respiratory Rate 18 Blood Pressure 136/78 Pulse Oximetry 99 Intake & Output 05/21/18 05/22/18 05/22/18 18:59 06:59 18:59 Intake Total 1100 / 1100 995 / 995 Balance 1100 / 1100 995 / 995 Weight 56.6 kg Intake: IV 1100 / 1100 0 / 0 NS Inj 1,000 ML @ 75 mls/hr IV. 1000 / 1000 CONT .[id number] [facility] Rx#:[id number] Tube Feeding 795 / 795 Water Bolus Amount 200 / 200 Other: # Voids 2 # Incontinent Voids 2 2 # Urine Diapers 2 Date of Last Bowel Movement 05/20/18 05/21/18 Narrative: GENERAL: This is a thin, frail, -Citizen Of [place] male patient. Awake and alert. Poor historian. In no acute distress. SKIN: Warm and dry. No generalized rash. HEENT: s/p right sided cranioplasty. Incision appears to be healing well. Jose intact. No sclera injection. No drainage. No nasal drainage. NECK: Trachea midline. Airway patent. CARDIOVASCULAR: Regular rate and rhythm without murmurs, gallops, or rubs. RESPIRATORY: No accessory muscle use. Breath sounds equal bilaterally. Poor effort, clear to auscultation anteriorly. GASTROINTESTINAL: Abdomen soft, non-tender, nondistended. PEG site C/D/I. MUSCULOSKELETAL: No cyanosis or edema. NEURO: Awake and alert. Moves right upper and lower extremity spontaneously. 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 Minimal toe wiggle appreciated on the left. Normal speech. PSYCHIATRIC: Calm and cooperative. Insight and judgement poor. - Urinary Catheter Management Indwelling Temp Sensing Catheter Cath placed during this visit: yes, but has since been removed by the nurse Reason for continuing: Not indwelling catheter Insertion date: 03/12/18 Insertion time: 05:30 Removal date: 03/25/18 Removal time: 18:00 Indwelling Urethral Catheter Cath placed during this visit: yes, but has since been removed by the nurse Reason for continuing: Decision to DC catheter Insertion date: 03/22/18 Insertion time: 17:30 Removal date: 03/25/18 Removal time: 18:00 Condom Cath placed during this visit: yes, but has since been removed by the nurse Reason for continuing: Hourly intake/output Insertion date: 05/13/18 Insertion time: 14:30 Removal date: 03/25/18 Removal time: 18:00 Results - Labs CBC & Chem 7: 05/19/18 12:08 05/19/18 12:08 Microbiology 05/17/18 14:50 Blood - Peripheral Aerobic Blood Culture - Preliminary No growth in 4 days 05/17/18 14:50 Blood - Peripheral Anaerobic Blood Culture - Preliminary No growth in 4 days 05/17/18 14:55 Blood - Peripheral Aerobic Blood Culture - Preliminary No growth in 4 days 05/17/18 14:55 Blood - Peripheral Anaerobic Blood Culture - Preliminary No growth in 4 days - Procedures PEG 7 -25 right decompressive craniectomy 03/22/18 with placement of ICP monitor by Dr. Chacko, wi'ed 03/23/18 03/22/18 Right frontotemporal parietal decompressive craniectomy and Duroplasty 03/22/18 Left frontal bur hole with placement of an intracranial pressure monitor Assessment and Plan - Assessment (1) Intracranial hemorrhage following injury Code(s): S06.309A - Unspecified focal traumatic brain injury with loss of consciousness of unspecified duration, initial encounter Status: Acute (2) Traumatic brain injury Code(s): S06.9X9A - Unspecified intracranial injury with loss of consciousness of unspecified duration, initial encounter Status: Acute (3) Fall Code(s): W19.XXXA - Unspecified fall, initial encounter Status: Chronic (4) Cocaine abuse Code(s): F14.10 - Cocaine abuse, uncomplicated Status: Chronic (5) ETOH abuse Code(s): F10.10 - Alcohol abuse, uncomplicated Status: Chronic (6) Dysphagia Code(s): R13.10 - Dysphagia, unspecified Status: Acute - Plan 62-year-old male admitted secondary to intracranial hemorrhage 05/22 Patient is stable. No significant change. Patient is afebrile. Vital signs stable. Discussed with nursing staff, no acute issues noted overnight. Pseudomonas UTI - continue on Cipro to complete 7 day treatment Right frontal IPH 53.3 cm. SAH bilat frontal lobes, right parietal, temporal. Right frontotemporal SDH status post emergency craniectomy for decompression for worsening midline shift right to left 2.1 cm s/p Fall, ?syncope Daily alcohol use/Cocaine abuse - s/p Right frontotemporal parietal decompressive craniectomy and Duroplasty by Dr. Chacko. - s/p right cranioplasty 05/13/18 - Continue on Keppra - no seizure activity reported - Continue with PT/OT - PT recommends rehab at discharge - Seizure precautions Palliative care following, appreciate assistance. Per note, patient has improved tremendously. Feels he has capacity to make medical decisions with support of family. Recommended psych consult to assess capacity. Psychiatry consulted, appreciate assistance. - Dr. Narvaez following, appreciate assistance Headache repeat CT head 04/[address] head 04/26 shows stable exam with large right craniectomy defect and 5 mm midline shift, no hemorrhage CTA head negative -Neurology following, appreciate assistance. Started on Topamax 50mg BID for likely vascular component. Topamax increased 05/18 to 75mg BID. Dysphagia s/p PEG tube placement 03/30/18 - ST re-evaluated and patient given puree diet with nectar thickened liquids. - Calorie count completed, inadequate intake. 04/20 TF resumed - Jevity 1.5 at 75 mls per hour 12 hours at night 7pm to 7am. - Snailer following, recommends continued nighttime feeding and supplement Acute respiratory failure secondary to failure to protect airway-resolved extubated MRSA pneumonia, status post treatment with IV vancomycin and Rocephin Tobacco abuse Extubated 03/25/2018 - Continue as needed duo nebs - continue to monitor respiratory status - Supplemental oxygen as needed DVT prophylaxis SCDs No chemoprophylaxis anticoagulation due to recent intracranial bleed Code Status: FULL Discussed Condition With: patient, nursing staff, Dr. Lopez Discharge Planning: Difficult placement. No payor source. CM assisting with ongoing discharge plan. (2) Traumatic brain injury Qualifiers: Encounter type: subsequent encounter
[2018-05-22] MEDS: Senna/Docusate Sodium 8.6/50 MG Tablet PO SCH ×2 (08:28→21:08)
[2018-05-22] MEDS: Topiramate 25 MG Tablet PO SCH ×2 (08:28→21:08)
[2018-05-22] MEDS: Ciprofloxacin 500 MG Tablet G-TUBE SCH ×2 (08:28→21:08)
[2018-05-22] MEDS: Sennosides Liq 8.8 MG/5 ML UDC NG/OG SCH ×2 (08:29→21:09)
[2018-05-23] MEDS: Oral Hygiene Kit OROPHARYNG SCH ×4 (04:00→18:09)
--- NOTE | 2018-05-23 07:30 | P.PN ---
Subjective Interval history: Patient seen and examined. Patient states he feels "so-so". He denies any complaints of headache or dizziness. Denies any chest pain or shortness of breath. He denies any fever or chills. Physical Exam Vital signs: Vital Signs 05/22/18 10:12 05/22/18 12:00 05/22/18 17:36 Temperature 97.5 F L 97.6 F 97.3 F L Pulse Rate 78 74 71 Respiratory Rate 20 20 20 Blood Pressure 136/79 149/93 H 134/77 Pulse Oximetry 98 99 100 05/22/18 20:00 05/23/18 00:00 05/23/18 04:00 Temperature 98.9 F 98.5 F 98.9 F Pulse Rate 76 78 75 Respiratory Rate 18 Blood Pressure 134/80 140/79 124/76 Pulse Oximetry 100 100 100 Intake & Output 05/22/18 05/23/18 05/23/18 18:59 06:59 18:59 Intake Total 120 / 120 Balance 120 / 120 Weight 56.1 kg Intake: Oral 120 / 120 Other: # Voids 3 # Incontinent Voids 3 Date of Last Bowel Movement 05/21/18 05/21/18 # Bowel Movements 2 # Incontinent Bowel Movements 1 Narrative: GENERAL: This is a thin, frail, -[place] male patient. Awake and alert. Poor historian. In no acute distress. SKIN: Warm and dry. No generalized rash. HEENT: s/p right sided cranioplasty. Incision appears to be healing well. Jose intact. No sclera injection. No drainage. No nasal drainage. NECK: Trachea midline. Airway patent. CARDIOVASCULAR: Regular rate and rhythm without murmurs, gallops, or rubs. RESPIRATORY: No accessory muscle use. Breath sounds equal bilaterally. Poor effort, clear to auscultation anteriorly. GASTROINTESTINAL: Abdomen soft, non-tender, nondistended. PEG site C/D/I. MUSCULOSKELETAL: No cyanosis or edema. NEURO: Awake and alert. Moves right upper and lower extremity spontaneously. Very weak gas brazer on the left. Minimal toe wiggle appreciated on the left. Normal speech. PSYCHIATRIC: Calm and cooperative. Insight and judgement poor. - Urinary Catheter Management Indwelling Temp Sensing Catheter Cath placed during this visit: yes, but has since been removed by the nurse Reason for continuing: Not indwelling catheter Insertion date: 03/12/18 Insertion time: 05:30 Removal date: 03/25/18 Removal time: 18:00 Indwelling Urethral Catheter Cath placed during this visit: yes, but has since been removed by the nurse Reason for continuing: Decision to DC catheter Insertion date: 03/22/18 Insertion time: 17:30 Removal date: 03/25/18 Removal time: 18:00 Condom Cath placed during this visit: yes, but has since been removed by the nurse Reason for continuing: Hourly intake/output Insertion date: 05/13/18 Insertion time: 14:30 Removal date: 03/25/18 Removal time: 18:00 Results - Labs CBC & Chem 7: 05/19/18 12:08 05/19/18 12:08 Microbiology 05/17/18 14:50 Blood - Peripheral Aerobic Blood Culture - Final No growth in 5 days 05/17/18 14:50 Blood - Peripheral Anaerobic Blood Culture - Final No growth in 5 days 05/17/18 14:55 Blood - Peripheral Aerobic Blood Culture - Final No growth in 5 days 05/17/18 14:55 Blood - Peripheral Anaerobic Blood Culture - Final No growth in 5 days - Procedures PEG 7 -25 right decompressive craniectomy 03/22/18 with placement of ICP monitor by Dr. Chacko, sc'ed 03/23/18 03/22/18 Right frontotemporal parietal decompressive craniectomy and Duroplasty 03/22/18 Left frontal bur hole with placement of an intracranial pressure monitor Assessment and Plan - Assessment (1) Intracranial hemorrhage following injury Code(s): S06.309A - Unspecified focal traumatic brain injury with loss of consciousness of unspecified duration, initial encounter Status: Acute (2) Traumatic brain injury Code(s): S06.9X9A - Unspecified intracranial injury with loss of consciousness of unspecified duration, initial encounter Status: Acute (3) Fall Code(s): W19.XXXA - Unspecified fall, initial encounter Status: Chronic (4) Cocaine abuse Code(s): F14.10 - Cocaine abuse, uncomplicated Status: Chronic (5) ETOH abuse Code(s): F10.10 - Alcohol abuse, uncomplicated Status: Chronic (6) Dysphagia Code(s): R13.10 - Dysphagia, unspecified Status: Acute - Plan 62-year-old male admitted secondary to intracranial hemorrhage 05/23 Patient is stable. No significant change. Patient is afebrile. VSS. DW nursing staff, no overnight events noted. Pseudomonas UTI - continue on Cipro to complete 7 day treatment Right frontal IPH 53.3 cm. SAH bilat frontal lobes, right parietal, temporal. Right frontotemporal SDH status post emergency craniectomy for decompression for worsening midline shift right to left 2.1 cm s/p Fall, ?syncope Daily alcohol use/Cocaine abuse - s/p Right frontotemporal parietal decompressive craniectomy and Duroplasty by Dr. Chacko. - s/p right cranioplasty 05/13/18 - Continue on Keppra - no seizure activity reported - Continue with PT/OT - PT recommends rehab at discharge - Seizure precautions Palliative care following, appreciate assistance. Per note, patient has improved tremendously. Feels he has capacity to make medical decisions with support of family. Recommended psych consult to assess capacity. Psychiatry consulted, appreciate assistance. - Dr. Narvaez following, appreciate assistance Headache repeat CT head 04/[address] head 04/26 shows stable exam with large right craniectomy defect and 5 mm midline shift, no hemorrhage CTA head negative -Neurology following, appreciate assistance. Started on Topamax 50mg BID for likely vascular component. Topamax increased 05/18 to 75mg BID. -Patient denies any c/o of headache this am Dysphagia s/p PEG tube placement 03/30/18 - ST re-evaluated and patient given puree diet with nectar thickened liquids. - Calorie count completed, inadequate intake. 04/20 TF resumed - Jevity 1.5 at 75 mls per hour 12 hours at night 7pm to 7am. - Filter Tank Operator following, recommends continued nighttime feeding and supplement Acute respiratory failure secondary to failure to protect airway-resolved extubated MRSA pneumonia, status post treatment with IV vancomycin and Rocephin Tobacco abuse Extubated 03/25/2018 - Continue as needed duo nebs - continue to monitor respiratory status - Supplemental oxygen as needed DVT prophylaxis SCDs No chemoprophylaxis anticoagulation due to recent intracranial bleed Code Status: FULL Discussed Condition With: patient, nursing staff, Dr. Constantino Discharge Planning: Difficult placement. No payor source. CM assisting with ongoing discharge plan. (2) Traumatic brain injury Qualifiers: Encounter type: subsequent encounter
[2018-05-23] MEDS: Carboxymethylcellulose 0.5% Opth Drops 15 ML Bottle EACH EYE SCH ×3 (07:53→21:36)
[2018-05-23] MEDS: Senna/Docusate Sodium 8.6/50 MG Tablet PO SCH ×2 (09:33→19:59)
[2018-05-23] MEDS: Sennosides Liq 8.8 MG/5 ML UDC NG/OG SCH ×2 (09:33→20:00)
[2018-05-23] MEDS: Ciprofloxacin 500 MG Tablet G-TUBE SCH ×2 (09:33→19:59)
[2018-05-23] MEDS: Topiramate 25 MG Tablet PO SCH ×2 (09:33→19:59)
--- NOTE | 2018-05-23 11:27 | P.PNNPSY ---
- Cognitive Severe: Cognitive, Attention/concentration, Confused/orientation, Insight/ awareness, Judgment/problem solving, Memory - Psychosocial Severe: Psychosocial, Family/other adjustment, Realistic expectation - Progress Notes/Response to Treatment Contents of Sessions: Adjustment Time with Patient: 15 minutes Premorbid Psychological Status: Premorbid Cognitive, Emotional and Behavioral Status: Unstable. The patient has high school and AA degree years of education and a minimal work history prior to this injury. The patient has prior psychiatric difficulties, as described above. Substance abuse history is significant. Behavioral Reactions of Patient and Family/Support System: Unstable. The patient has one daughter whom he reported he has minimal contact. This patient s family may be experiencing ongoing issues of adjustment given the nature of the injury, and this aspect of recovery will require ongoing monitoring. Emotional/Behavioral Status of Patient and Family/Support System: Unstable. Pertinent issues, if appropriate to this patients clinical care, are described in detail above. Maximizing Acute Care Outcome: It is recommended that the patient be monitored for emergent behavioral impulsivity as the medical condition evolves. The ABS is already started and he is not agitated/restless. This patients neuropathological challenges may limit rehabilitation potential going forward, and these challenges will require specialized therapeutic skills to maximize outcome. At this point in the recovery process, the patient's decision making capacity may have improved to some extent but it is unclear whether he is able to understand a situation and its likely consequences, or whether he is able to manipulate information rationally at a level commensurate with his baseline. On the brief exam today, I would surmise no. Cognitive capacity will be assessed throughout the recovery process. Anticipated Problems: Ongoing areas of concern will include behavioral impulsivity, lack of insight and judgment, which may not improve with time or treatment. Presently, the patient follows commands when told to do so. Given the severity of the patient' s injuries it is my clinical opinion that this patient will be unable to return to any type of productive employment for at least one year, perhaps longer and likely never. This patient is not considered safe to discharge home without supervision. He will likely require SNF placement. Treatment Plan: This clinician will continue to follow with you throughout the course of this patients acute care treatment, and I will be available to meet with the patient s family/support system to facilitate their understanding and the ongoing care of their family member. The goals of neuropsychological intervention shall be both educational and supportive to the family/support system as is deemed clinically appropriate. Disinhibition Score: 19.25 Aggression Score: 17.50 Lability Score: 14.00 Agitated Behavior Total Score: 17 Impression: This 62 year old male with s/p bifrontal TBI, DC and history of polysubstance dependence who is day 47 post admission. This patient presents with neurobehavioral sequelae consistent with frontal lobe pathology, including bradyphrenia, abulia, disconnection between thought and emotion, motor impersistence as well as demonstrating visual neglect (versus field cut). These issues are approaching chronic in nature particularly in the context of underlying neuropathology related to his polysubstance dependence. Progress Note Narrative: Day 76. The patient remains stable, no neurobehavioral change and he remains abulic and flat, but compliant. No other issues at present. I will follow. - Diagnosis (1) Major neurocognitive disorder as late effect of traumatic brain injury with behavioral disturbance Status: Acute (2) Polysubstance dependence Status: Acute
[2018-05-24] MEDS: Oral Hygiene Kit OROPHARYNG SCH ×4 (02:15→16:29)
[2018-05-24] MEDS: Carboxymethylcellulose 0.5% Opth Drops 15 ML Bottle EACH EYE SCH ×3 (05:18→21:10)
[2018-05-24] MEDS: Topiramate 25 MG Tablet PO SCH ×2 (08:56→21:09)
[2018-05-24] MEDS: Senna/Docusate Sodium 8.6/50 MG Tablet PO SCH ×2 (08:56→21:09)
[2018-05-24] MEDS: Ciprofloxacin 500 MG Tablet G-TUBE SCH ×2 (08:57→21:09)
[2018-05-24] MEDS: Sennosides Liq 8.8 MG/5 ML UDC NG/OG SCH ×2 (08:58→21:09)
--- NOTE | 2018-05-24 10:23 | P.PN ---
Subjective Interval history: Follow up on patient with IPH, SDH. Patient seen and examined. Patient reports he feels ok today. He denies any complaints of pain. He denies any headache, dizziness or vision changes. He denies any chest pain or shortness of breath. DW nursing staff, no overnight events noted. Physical Exam Vital signs: Vital Signs 05/23/18 12:00 05/23/18 13:19 05/23/18 15:58 Temperature 97.3 F L Pulse Rate 69 81 Respiratory Rate 17 20 Blood Pressure 130/74 Pulse Oximetry 100 05/23/18 16:00 05/23/18 19:48 05/23/18 20:00 Temperature 97.6 F Pulse Rate 80 70 Respiratory Rate 16 18 Blood Pressure 122/73 Pulse Oximetry 99 05/23/18 21:27 05/23/18 22:00 05/24/18 00:25 Temperature 98.2 F Pulse Rate 73 84 Respiratory Rate 14 18 Blood Pressure 129/76 Pulse Oximetry 100 05/24/18 01:20 05/24/18 03:58 05/24/18 04:00 Temperature 97.8 F 98.5 F Pulse Rate 81 74 75 Respiratory Rate 17 16 Blood Pressure 129/73 134/79 Pulse Oximetry 97 99 05/24/18 08:00 Temperature 97.5 F L Pulse Rate 80 Respiratory Rate 18 Blood Pressure 129/76 Pulse Oximetry 100 Intake & Output 05/23/18 05/24/18 05/24/18 18:59 06:59 18:59 Intake Total 580 / 580 Output Total Balance 579 / 579 Weight 56.9 kg Intake: Oral 480 / 480 Oral Supplement 0 / 0 Tube Irrigant 100 / 100 Output: Stool Other: # Incontinent Voids 3 3 Date of Last Bowel Movement 05/23/18 05/24/18 05/24/18 # Incontinent Bowel Movements 2 Narrative: GENERAL: This is a thin, frail, -[place] male patient, INAD. Awake and alert. Poor historian. SKIN: Warm and dry. No generalized rash. HEENT: s/p right sided cranioplasty. Dressing in place. Incision appears to be healing well. [place] intact. No sclera injection. No drainage. No nasal drainage. NECK: Trachea midline. Airway patent. CARDIOVASCULAR: Regular rate and rhythm without murmurs, gallops, or rubs. RESPIRATORY: No accessory muscle use. Breath sounds equal bilaterally. Poor effort, clear to auscultation anteriorly. GASTROINTESTINAL: Abdomen soft, non-tender, nondistended. PEG site C/D/I. MUSCULOSKELETAL: No cyanosis or edema. NEURO: Awake and alert. Moves right upper and lower extremity spontaneously. Very weak wharfinger chief on the left. Minimal toe wiggle appreciated on the left. Normal speech. PSYCHIATRIC: Flat affect. Calm and cooperative. Insight and judgement poor. - Urinary Catheter Management Indwelling Temp Sensing Catheter Cath placed during this visit: yes, but has since been removed by the nurse Reason for continuing: Not indwelling catheter Insertion date: 03/12/18 Insertion time: 05:30 Removal date: 03/25/18 Removal time: 18:00 Indwelling Urethral Catheter Cath placed during this visit: yes, but has since been removed by the nurse Reason for continuing: Decision to DC catheter Insertion date: 03/22/18 Insertion time: 17:30 Removal date: 03/25/18 Removal time: 18:00 Condom Cath placed during this visit: yes, but has since been removed by the nurse Reason for continuing: Hourly intake/output Insertion date: 05/13/18 Insertion time: 14:30 Removal date: 03/25/18 Removal time: 18:00 Results - Labs CBC & Chem 7: 05/19/18 12:08 05/19/18 12:08 - Procedures PEG 7 -25 right decompressive craniectomy 03/22/18 with placement of ICP monitor by Dr. Chacko, oh'ed 03/23/18 03/22/18 Right frontotemporal parietal decompressive craniectomy and Duroplasty 03/22/18 Left frontal bur hole with placement of an intracranial pressure monitor Assessment and Plan - Assessment (1) Intracranial hemorrhage following injury Code(s): S06.309A - Unspecified focal traumatic brain injury with loss of consciousness of unspecified duration, initial encounter Status: Acute (2) Traumatic brain injury Code(s): S06.9X9A - Unspecified intracranial injury with loss of consciousness of unspecified duration, initial encounter Status: Acute (3) Fall Code(s): W19.XXXA - Unspecified fall, initial encounter Status: Chronic (4) Cocaine abuse Code(s): F14.10 - Cocaine abuse, uncomplicated Status: Chronic (5) ETOH abuse Code(s): F10.10 - Alcohol abuse, uncomplicated Status: Chronic (6) Dysphagia Code(s): R13.10 - Dysphagia, unspecified Status: Acute - Plan 62-year-old male admitted secondary to intracranial hemorrhage 05/24 No significant change. Patient is stable. He is afebrile, VSS. DW nursing staff, no overnight events noted. Pseudomonas UTI - continue on Cipro to complete 7 day treatment Right frontal IPH 53.3 cm. SAH bilat frontal lobes, right parietal, temporal. Right frontotemporal SDH status post emergency craniectomy for decompression for worsening midline shift right to left 2.1 cm s/p Fall, ?syncope Daily alcohol use/Cocaine abuse - s/p Right frontotemporal parietal decompressive craniectomy and Duroplasty by Dr. Chacko. - s/p right cranioplasty 05/13/18, incision healing well. [place] in place. - Continue on Keppra - no seizure activity reported - Continue with PT/OT - PT recommends rehab at discharge - Seizure precautions Palliative care following, appreciate assistance. Per note, patient has improved tremendously. Feels he has capacity to make medical decisions with support of family. Recommended psych consult to assess capacity. Psychiatry consulted, appreciate assistance. - Dr. Narvaez following, appreciate assistance Headache repeat CT head 04/[address] head 04/26 shows stable exam with large right craniectomy defect and 5 mm midline shift, no hemorrhage CTA head negative -Neurology following, appreciate assistance. Started on Topamax 50mg BID for likely vascular component. Topamax increased 05/18 to 75mg BID. -Patient denies any c/o of headache this am Dysphagia s/p PEG tube placement 03/30/18 - ST re-evaluated and patient given puree diet with nectar thickened liquids. - Calorie count completed, inadequate intake. 04/20 TF resumed - Jevity 1.5 at 75 mls per hour 12 hours at night 7pm to 7am. - Dental Coordinator following, recommends continued nighttime feeding and supplement Acute respiratory failure secondary to failure to protect airway-resolved extubated MRSA pneumonia, status post treatment with IV vancomycin and Rocephin Tobacco abuse Extubated 03/25/2018 - Continue as needed duo nebs - continue to monitor respiratory status - Supplemental oxygen as needed DVT prophylaxis SCDs No chemoprophylaxis anticoagulation due to recent intracranial bleed Code Status: FULL Discussed Condition With: patient, nursing staff, Dr. Constantino Discharge Planning: Difficult placement. No payor source. CM assisting with ongoing discharge plan. (2) Traumatic brain injury Qualifiers: Encounter type: subsequent encounter
--- NOTE | 2018-05-24 12:46 | P.DIET ---
Nutritional Evaluation Type of nutrition evaluation: follow-up Nutrition consult regarding: Tube Feeding Nutrition screening: [facility] [place] Subject[place] Subjective Comments: PO intake for 05/23: B-25%, L-75%, D-50% Objective - Diagnosis ICH, SAH, Syncope - Objective % IBW: 87 (IBW = 166#) Body Weight Used for Calculations: Actual (65.4 kg) Energy Needs - Lower Range (kCal/kg): 28 Energy Needs - Upper Range (kCal/kg): 33 Lower Limit kCal/kg (kCals): 1,831 Upper Limit kCal/kg (kCals): 2,158 Lower Limit Protein Factor (Grams per Kg): 1.2 Upper Limit Protein Factor (Grams per Kg): 1.5 Lower Protein Needs (Protein): 79 Upper Protein Needs (Protein): 98 Fluid Factor (ml/kg): 28 Estimated Fluid Needs (ml): 1,831 Dietitian Reviewed in Medical Record: Current diet, Curent medications, Intake & Output, Labs, Medical history, Tube feeding, Wound/DTI Diet Order: Mechanical Soft Speech Therapy Recommendations: Yes Objective Comments: PMH: COPD, Asthma, tobacco abuse, daily ETOH use 03/22 R front temporal parietal decompressive craniectomy Integumentary: coccyx pressure injury PEG placement 03/30/1805/13 R frontal temporal parietal cranioplasty Feeding - Current Tube Feeding Tube Feeding Product: Jevity 1.5 Tube Feeding Rate: 75 (mls/hr x 12 hours) Tube Feeding Route: gastrostomy Current kCals Provided by Tube Feedin,350 Current Protein Provided by Tube Feeding (gPRO): 57 Current Free H2O Provided (m/l): 1,003 - Current PO Supplement Current Supplement: Ensure Enlive Current Frequency of Supplement: Three times a day Current kCals Provided by Supplement: 350 Current Protein Provided by Supplement: 20 Supplement Comments: plus Ensure Pudding(= 170 kcal and 4g protein per serving) Assessment Assessment: Pt was extubated on 03/25 and PEG tube placed 03/30. Current diet is mechanical soft and Ensure Enlive and Ensure Pudding added. CBW is 56.9 kg which indicates weight loss since admission. Recommend continue night time TFing to supplement po intake to prevent further nutritional compromise. Recommend continue Jevity 1.5 @ 75 mls/hr from 7pm -7am to provide 1350 kcals and 57 gms protein. Pt is still unable to meet nutritional needs with po intake alone. Benefits from full assistance at meals. Goal would be to discontinue TF at some point. Recommendations: 1. Diet per ST 2. Continue TF: Jevity 1.5 @ 75 mls/hr x 12 hours at night 3.Continue Ensure Enlive TID 4.Continue Ensure Pudding TID 5. Please provide full assistance at meals Dietitian to Monitor: Lab values, Supplement acceptance, Intake & Output, Diet tolerance, Weight change, PO Intake, Wound/skin status, Medical course
--- NOTE | 2018-05-24 15:07 | P.PNNS ---
Subjective Interval history: 05/24: appears comfortable, wants to keep his head wrapped up with dressing Physical Exam Vital signs: Vital Signs 05/23/18 15:58 05/23/18 16:00 05/23/18 19:48 Temperature 97.6 F Pulse Rate 81 80 Respiratory Rate 16 18 Blood Pressure 122/73 Pulse Oximetry 99 05/23/18 20:00 05/23/18 21:27 05/23/18 22:00 Temperature 98.2 F Pulse Rate 70 73 Respiratory Rate 14 18 Blood Pressure 129/76 Pulse Oximetry 100 05/24/18 00:25 05/24/18 01:20 05/24/18 03:58 Temperature 97.8 F Pulse Rate 84 81 74 Respiratory Rate 17 Blood Pressure 129/73 Pulse Oximetry 97 05/24/18 04:00 05/24/18 08:00 05/24/18 12:00 Temperature 98.5 F 97.5 F L 97.8 F Pulse Rate 75 80 77 Respiratory Rate 16 18 18 Blood Pressure 134/79 129/76 129/83 Pulse Oximetry 99 100 100 05/24/18 12:11 Temperature Pulse Rate 72 Respiratory Rate Blood Pressure Pulse Oximetry Intake & Output 05/23/18 05/24/18 05/24/18 18:59 06:59 18:59 Intake Total 580 / 580 Output Total Balance 579 / 579 Weight 56.9 kg Intake: Oral 480 / 480 Oral Supplement 0 / 0 Tube Irrigant 100 / 100 Output: Stool Other: # Incontinent Voids 3 3 Date of Last Bowel Movement 05/23/18 05/24/18 05/24/18 # Incontinent Bowel Movements 2 Narrative: surgical incision healing well, no redness, drainage, or other signs of infection, khurram intact awake follows simple commands - Urinary Catheter Management Indwelling Temp Sensing Catheter Cath placed during this visit: yes, but has since been removed by the nurse Reason for continuing: Not indwelling catheter Insertion date: 03/12/18 Insertion time: 05:30 Removal date: 03/25/18 Removal time: 18:00 Indwelling Urethral Catheter Cath placed during this visit: yes, but has since been removed by the nurse Reason for continuing: Decision to DC catheter Insertion date: 03/22/18 Insertion time: 17:30 Removal date: 03/25/18 Removal time: 18:00 Condom Cath placed during this visit: yes, but has since been removed by the nurse Reason for continuing: Hourly intake/output Insertion date: 05/13/18 Insertion time: 14:30 Removal date: 03/25/18 Removal time: 18:00 Assessment and Plan - Plan 63 yo s/p left cranioplasty -neuro stable -wound healing well, ok to leave incision open to air but patient wants to keep it wrapped, pleas change dressings daily and keep clean if so -cont therapy -dc khurram this sunday 05/27
[2018-05-25] MEDS: Oral Hygiene Kit OROPHARYNG SCH ×4 (00:36→19:13)
[2018-05-25] MEDS: Carboxymethylcellulose 0.5% Opth Drops 15 ML Bottle EACH EYE SCH ×3 (05:19→22:06)
[2018-05-25] MEDS: Senna/Docusate Sodium 8.6/50 MG Tablet PO SCH ×2 (09:38→20:45)
[2018-05-25] MEDS: Topiramate 25 MG Tablet PO SCH ×2 (09:39→20:45)
[2018-05-25] MEDS: Ciprofloxacin 500 MG Tablet G-TUBE SCH (09:39)
[2018-05-25] MEDS: Sennosides Liq 8.8 MG/5 ML UDC NG/OG SCH ×2 (09:40→20:45)
--- NOTE | 2018-05-25 10:44 | P.PN ---
Subjective Interval history: Follow up on patient with IPH, SDH. Patient seen and examined. Patient denies any complaints of pain. When asked how he is feeling, he states "I am hungry". He denies any fever or chills. He denies any chest pain, dyspnea, N/V or abdominal pain. He is afebrile. VSS. Physical Exam Vital signs: Vital Signs 05/24/18 12:00 05/24/18 12:11 05/24/18 16:00 Temperature 97.8 F 98.7 F Pulse Rate 77 72 77 Respiratory Rate 18 18 Blood Pressure 129/83 108/71 Pulse Oximetry 100 99 05/24/18 20:10 05/24/18 21:27 05/24/18 22:34 Temperature 97.4 F L Pulse Rate 83 89 Respiratory Rate 18 17 Blood Pressure 126/81 Pulse Oximetry 99 05/24/18 22:35 05/25/18 00:00 05/25/18 00:08 Temperature 97.5 F L Pulse Rate 86 84 Respiratory Rate 17 17 Blood Pressure 111/68 Pulse Oximetry 98 05/25/18 01:58 05/25/18 04:00 05/25/18 04:18 Temperature 98.5 F Pulse Rate 88 85 Respiratory Rate 16 18 Blood Pressure 117/73 Pulse Oximetry 99 05/25/18 09:00 Temperature 97.8 F Pulse Rate 90 Respiratory Rate 16 Blood Pressure 141/80 H Pulse Oximetry 97 Intake & Output 05/24/18 05/25/18 05/25/18 18:59 06:59 18:59 Intake Total 0 / 0 1390 / 1390 Output Total 0 / 0 Balance 0 / 0 1390 / 1390 Weight 56.9 kg Intake: Oral 0 / 0 240 / 240 Tube Feeding 900 / 900 Water Bolus Amount 250 / 250 Output: Urine 0 / 0 Other: # Voids 6 # Incontinent Voids 4 Date of Last Bowel Movement 05/24/18 05/25/18 # Bowel Movements 3 # Incontinent Bowel Movements 3 Narrative: GENERAL: This is a thin, frail, -[place] male patient. Awake and alert. Poor historian. In no acute distress. SKIN: Warm and dry. No generalized rash. HEENT: s/p right sided cranioplasty. Dressing in place. Incision appears to be healing well. Khurram intact. No sclera injection. No drainage. No nasal drainage. NECK: Trachea midline. Airway patent. CARDIOVASCULAR: Regular rate and rhythm without murmurs, gallops, or rubs. RESPIRATORY: No accessory muscle use. Breath sounds equal bilaterally. Poor effort, clear to auscultation anteriorly. GASTROINTESTINAL: Abdomen soft, non-tender, nondistended. PEG site C/D/I. MUSCULOSKELETAL: No cyanosis or edema. NEURO: Awake and alert. Moves right upper and lower extremity spontaneously. Weak bilateral oxygraph operator L>R. Able to weakly dorsi and plantar flex left foot. Fair strength RLE. Normal speech. PSYCHIATRIC: Flat affect. Calm and cooperative. Insight and judgement poor. - Urinary Catheter Management Indwelling Temp Sensing Catheter Cath placed during this visit: yes, but has since been removed by the nurse Reason for continuing: Not indwelling catheter Insertion date: 03/12/18 Insertion time: 05:30 Removal date: 03/25/18 Removal time: 18:00 Indwelling Urethral Catheter Cath placed during this visit: yes, but has since been removed by the nurse Reason for continuing: Decision to DC catheter Insertion date: 03/22/18 Insertion time: 17:30 Removal date: 03/25/18 Removal time: 18:00 Condom Cath placed during this visit: yes, but has since been removed by the nurse Reason for continuing: Hourly intake/output Insertion date: 05/13/18 Insertion time: 14:30 Removal date: 03/25/18 Removal time: 18:00 Results - Labs CBC & Chem 7: 05/19/18 12:08 05/19/18 12:08 - Procedures PEG 7 -25 right decompressive craniectomy 03/22/18 with placement of ICP monitor by Dr. Chacko, hi'ed 03/23/18 03/22/18 Right frontotemporal parietal decompressive craniectomy and Duroplasty 03/22/18 Left frontal bur hole with placement of an intracranial pressure monitor Assessment and Plan - Assessment (1) Intracranial hemorrhage following injury Code(s): S06.309A - Unspecified focal traumatic brain injury with loss of consciousness of unspecified duration, initial encounter Status: Acute (2) Traumatic brain injury Code(s): S06.9X9A - Unspecified intracranial injury with loss of consciousness of unspecified duration, initial encounter Status: Acute (3) Fall Code(s): W19.XXXA - Unspecified fall, initial encounter Status: Chronic (4) Cocaine abuse Code(s): F14.10 - Cocaine abuse, uncomplicated Status: Chronic (5) ETOH abuse Code(s): F10.10 - Alcohol abuse, uncomplicated Status: Chronic (6) Dysphagia Code(s): R13.10 - Dysphagia, unspecified Status: Acute - Plan 62-year-old male admitted secondary to intracranial hemorrhage 05/25 Patient remains stable. No significant change. He is afebrile, VSS. Surgical incision healing well, khurram may be d/c'd Sunday 05/27 per NS. DW nursing staff, no overnight events noted. 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 SAH bilat frontal lobes, right parietal, temporal. Right frontotemporal SDH status post emergency craniectomy for decompression for worsening midline shift right to left 2.1 cm s/p Fall, ?syncope Daily alcohol use/Cocaine abuse - s/p Right frontotemporal parietal decompressive craniectomy and Duroplasty by Dr. Chacko. - s/p right cranioplasty 05/13/18, incision healing well. Khurram in place. - Continue on Keppra - no seizure activity reported - Continue with PT/OT - PT recommends rehab at discharge - Seizure precautions Palliative care following, appreciate assistance. Per note, patient has improved tremendously. Feels he has capacity to make medical decisions with support of family. Recommended psych consult to assess capacity. Psychiatry consulted, appreciate assistance. - Dr. Narvaez following, appreciate assistance Headache repeat CT head 04/[address] head 04/26 shows stable exam with large right craniectomy defect and 5 mm midline shift, no hemorrhage CTA head negative -Neurology following, appreciate assistance. Started on Topamax 50mg BID for likely vascular component. Topamax increased 05/18 to 75mg BID. -Patient denies any c/o of headache this am Dysphagia Protein calorie malnutrition s/p PEG tube placement 03/30/18 - ST re-evaluated and patient given puree diet with nectar thickened liquids. - Calorie count completed, inadequate intake. 04/20 TF resumed - Jevity 1.5 at 75 mls per hour 12 hours at night 7pm to 7am. - Cleaning Handyman following, recommends continued nighttime feeding and supplement - Needs assistance with all meals Acute respiratory failure secondary to failure to protect airway-resolved extubated MRSA pneumonia, status post treatment with IV vancomycin and Rocephin Tobacco abuse Extubated 03/25/2018 - Continue as needed duo nebs - continue to monitor respiratory status - Supplemental oxygen as needed Pseudomonas UTI - completed abx treatment DVT prophylaxis SCDs No chemoprophylaxis anticoagulation due to recent intracranial bleed Code Status: FULL Discussed Condition With: patient, nursing staff, Dr. Constantino Discharge Planning: Difficult placement. No payor source. CM assisting with ongoing discharge plan. (2) Traumatic brain injury Qualifiers: Encounter type: subsequent encounter
[2018-05-26] MEDS: Oral Hygiene Kit OROPHARYNG SCH ×4 (00:59→16:54)
[2018-05-26] MEDS: Carboxymethylcellulose 0.5% Opth Drops 15 ML Bottle EACH EYE SCH ×3 (06:18→22:48)
--- NOTE | 2018-05-26 07:58 | P.PNNPSY ---
- Behavior Intact: Impulsive/agitated - Cognitive Mild: Confused/orientation, Moderate: Insight/awareness - Psychosocial Severe: Psychosocial, Family/other adjustment, Realistic expectation - Progress Notes/Response to Treatment Contents of Sessions: Adjustment, Level of consciousness Time with Patient: 15 minutes Premorbid Psychological Status: Premorbid Cognitive, Emotional and Behavioral Status: Unstable. The patient has high school and AA degree years of education and a minimal work history prior to this injury. The patient has prior psychiatric difficulties, as described above. Substance abuse history is significant. Behavioral Reactions of Patient and Family/Support System: Unstable. The patient has one daughter whom he reported he has minimal contact. This patient s family may be experiencing ongoing issues of adjustment given the nature of the injury, and this aspect of recovery will require ongoing monitoring. Emotional/Behavioral Status of Patient and Family/Support System: Unstable. Pertinent issues, if appropriate to this patients clinical care, are described in detail above. Maximizing Acute Care Outcome: It is recommended that the patient be monitored for emergent behavioral impulsivity as the medical condition evolves. The ABS is already started and he is not agitated/restless. This patients neuropathological challenges may limit rehabilitation potential going forward, and these challenges will require specialized therapeutic skills to maximize outcome. At this point in the recovery process, the patient's decision making capacity may have improved to some extent but it is unclear whether he is able to understand a situation and its likely consequences, or whether he is able to manipulate information rationally at a level commensurate with his baseline. On the brief exam today, I would surmise no. Cognitive capacity will be assessed throughout the recovery process. Anticipated Problems: Ongoing areas of concern will include behavioral impulsivity, lack of insight and judgment, which may not improve with time or treatment. Presently, the patient follows commands when told to do so. Given the severity of the patient' s injuries it is my clinical opinion that this patient will be unable to return to any type of productive employment for at least one year, perhaps longer and likely never. This patient is not considered safe to discharge home without supervision. He will likely require SNF placement. Treatment Plan: This clinician will continue to follow with you throughout the course of this patients acute care treatment, and I will be available to meet with the patient s family/support system to facilitate their understanding and the ongoing care of their family member. The goals of neuropsychological intervention shall be both educational and supportive to the family/support system as is deemed clinically appropriate. Disinhibition Score: 14.00 Aggression Score: 14.00 Lability Score: 14.00 Agitated Behavior Total Score: 14 Impression: This 62 year old male with s/p bifrontal TBI, DC and history of polysubstance dependence who is day 47 post admission. This patient presents with neurobehavioral sequelae consistent with frontal lobe pathology, including bradyphrenia, abulia, disconnection between thought and emotion, motor impersistence as well as demonstrating visual neglect (versus field cut). These issues are approaching chronic in nature particularly in the context of underlying neuropathology related to his polysubstance dependence. Progress Note Narrative: PTD 84. The patient remains stable, no agitation/restlessness. ABS = 14 (14,14 ,14). He is managed on Keppra, Topamax and Restoril. No other issues at this time, and suggest continue current plan. I will follow. - Diagnosis (1) Major neurocognitive disorder as late effect of traumatic brain injury with behavioral disturbance Status: Acute (2) Polysubstance dependence Status: Acute
[2018-05-26] MEDS: Senna/Docusate Sodium 8.6/50 MG Tablet PO SCH ×2 (09:10→20:23)
[2018-05-26] MEDS: Topiramate 25 MG Tablet PO SCH ×2 (09:10→20:22)
[2018-05-26] MEDS: Sennosides Liq 8.8 MG/5 ML UDC NG/OG SCH ×2 (09:11→20:22)
--- NOTE | 2018-05-26 12:55 | P.PNIM ---
Subjective Interval history: The patient had [place] fried chicken for lunch. He requested his pain medication to go along with his putting. No other acute concerns. Discussed with nursing, who reports that the patient does not keep his telemetry on. Physical Exam Vital signs: Vital Signs 05/25/18 16:00 05/25/18 20:00 05/25/18 21:04 Temperature 97.4 F L 97.7 F Pulse Rate 86 82 90 Respiratory Rate 16 18 Blood Pressure 121/77 111/66 Pulse Oximetry 97 97 05/25/18 23:40 05/25/18 23:41 05/26/18 00:00 Temperature 97.9 F Pulse Rate 88 Respiratory Rate 18 18 18 Blood Pressure 125/82 Pulse Oximetry 98 05/26/18 04:00 05/26/18 05:34 05/26/18 07:00 Temperature 97.8 F Pulse Rate 91 H Respiratory Rate 18 18 12 Blood Pressure 123/76 Pulse Oximetry 96 05/26/18 08:00 05/26/18 10:58 Temperature 97.9 F Pulse Rate 90 Respiratory Rate 20 12 Blood Pressure 123/87 Pulse Oximetry 99 Intake & Output 05/25/18 05/26/18 05/26/18 18:59 06:59 18:59 Intake Total 440 / 440 1100 / 1100 Balance 440 / 440 1100 / 1100 Weight 53.3 kg Intake: Oral 240 / 240 Oral Supplement 0 / 0 Tube Feeding 900 / 900 Tube Irrigant 200 / 200 Water Bolus Amount 200 / 200 Anesthesia Amount 0 / 0 Other: # Incontinent Voids 4 2 Date of Last Bowel Movement 05/24/18 05/25/18 05/26/18 # Bowel Movements 1 Narrative: GENERAL: Resting comfortably. SKIN: Warm and dry. No generalized rash. HEENT: s/p right sided cranioplasty. Dressing in place. Incision appears to be healing well. Jose intact. No sclera injection. No drainage. No nasal drainage. NECK: Trachea midline. Airway patent. CARDIOVASCULAR: Regular rate and rhythm without murmurs, gallops, or rubs. RESPIRATORY: No accessory muscle use. Breath sounds equal bilaterally. GASTROINTESTINAL: Abdomen soft, non-tender, nondistended. PEG site C/D/I. MUSCULOSKELETAL: No cyanosis or edema. NEURO: Awake and alert. Moves right upper and lower extremity spontaneously. Weak bilateral store team member L>R. Able to weakly dorsi and plantar flex left foot. Fair strength RLE. Normal speech. PSYCHIATRIC: Flat affect. Calm and cooperative. - Urinary Catheter Management Indwelling Temp Sensing Catheter Cath placed during this visit: yes, but has since been removed by the nurse Reason for continuing: Not indwelling catheter Insertion date: 03/12/18 Insertion time: 05:30 Removal date: 03/25/18 Removal time: 18:00 Indwelling Urethral Catheter Cath placed during this visit: yes, but has since been removed by the nurse Reason for continuing: Decision to DC catheter Insertion date: 03/22/18 Insertion time: 17:30 Removal date: 03/25/18 Removal time: 18:00 Condom Cath placed during this visit: yes, but has since been removed by the nurse Reason for continuing: Hourly intake/output Insertion date: 05/13/18 Insertion time: 14:30 Removal date: 03/25/18 Removal time: 18:00 Results - Labs CBC & Chem 7: 05/19/18 12:08 05/19/18 12:08 - Procedures PEG 7 -25 right decompressive craniectomy 03/22/18 with placement of ICP monitor by Dr. Chacko, de'ed 03/23/18 03/22/18 Right frontotemporal parietal decompressive craniectomy and Duroplasty 03/22/18 Left frontal bur hole with placement of an intracranial pressure monitor Assessment and Plan - Assessment (1) Intracranial hemorrhage following injury Code(s): S06.309A - Unspecified focal traumatic brain injury with loss of consciousness of unspecified duration, initial encounter Status: Acute (2) Traumatic brain injury Code(s): S06.9X9A - Unspecified intracranial injury with loss of consciousness of unspecified duration, initial encounter Status: Acute (3) Fall Code(s): W19.XXXA - Unspecified fall, initial encounter Status: Chronic (4) Cocaine abuse Code(s): F14.10 - Cocaine abuse, uncomplicated Status: Chronic (5) ETOH abuse Code(s): F10.10 - Alcohol abuse, uncomplicated Status: Chronic (6) Dysphagia Code(s): R13.10 - Dysphagia, unspecified Status: Acute - Plan 62-year-old male admitted secondary to intracranial hemorrhage 05/26: nursing reports the patient is not keeping telemetry on. The patient states that he would like his pain medication. No other acute concerns. 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 SAH bilat frontal lobes, right parietal, temporal. Right frontotemporal SDH status post emergency craniectomy for decompression for worsening midline shift right to left 2.1 cm s/p Fall, ?syncope Daily alcohol use/Cocaine abuse - s/p Right frontotemporal parietal decompressive craniectomy and Duroplasty by Dr. Chacko. - s/p right cranioplasty 05/13/18, incision healing well. [place] in place, possibly to be removed on 05/27. - Continue on Keppra - no seizure activity reported - Continue with PT/OT - PT recommends rehab at discharge - Seizure precautions Palliative care following, appreciate assistance. Per note, patient has improved tremendously. Feels he has capacity to make medical decisions with support of family. Recommended psych consult to assess capacity. Psychiatry consulted, appreciate assistance. - Dr. Narvaez following, appreciate assistance Headache repeat CT head 04/[address] head 04/26 shows stable exam with large right craniectomy defect and 5 mm midline shift, no hemorrhage CTA head negative -Neurology following, appreciate assistance. Started on Topamax 50mg BID for likely vascular component. Topamax increased 05/18 to 75mg BID. -pain control as needed. Dysphagia Protein calorie malnutrition s/p PEG tube placement 03/30/18 - ST re-evaluated and patient given puree diet with nectar thickened liquids. - Calorie count completed, inadequate intake. 04/20 TF resumed - Jevity 1.5 at 75 mls per hour 12 hours at night 7pm to 7am. - Slip Laster following, recommends continued nighttime feeding and supplement - Needs assistance with all meals Acute respiratory failure secondary to failure to protect airway-resolved extubated MRSA pneumonia, status post treatment with IV vancomycin and Rocephin Tobacco abuse Extubated 03/25/2018 - Continue as needed duo nebs - continue to monitor respiratory status - Supplemental oxygen as needed Pseudomonas UTI - completed abx treatment DVT prophylaxis SCDs No chemoprophylaxis anticoagulation due to recent intracranial bleed (2) Traumatic brain injury Qualifiers: Encounter type: subsequent encounter
[2018-05-27] MEDS: Oral Hygiene Kit OROPHARYNG SCH ×4 (00:30→15:36)
[2018-05-27] MEDS: Carboxymethylcellulose 0.5% Opth Drops 15 ML Bottle EACH EYE SCH ×3 (06:33→22:51)
[2018-05-27] MEDS: Senna/Docusate Sodium 8.6/50 MG Tablet PO SCH ×2 (09:00→20:09)
[2018-05-27] MEDS: Topiramate 25 MG Tablet PO SCH ×2 (09:00→20:09)
[2018-05-27] MEDS: Sennosides Liq 8.8 MG/5 ML UDC NG/OG SCH ×2 (09:00→20:09)
--- NOTE | 2018-05-27 15:31 | P.PNIM ---
Subjective Interval history: The patient was resting comfortably in bed. He said that he would be willing to have the khurram removed from his head as long as they were not yanked out and he received pain medication in advance. Discussed with nursing. Physical Exam Vital signs: Vital Signs 05/26/18 16:52 05/26/18 17:06 05/26/18 20:36 Temperature 97.9 F 98.3 F Pulse Rate 89 97 H Respiratory Rate 08 25 18 Blood Pressure 133/93 H 128/85 Pulse Oximetry 97 98 05/26/18 23:51 05/27/18 04:00 05/27/18 08:00 Temperature 98.5 F 98.5 F 97.4 F L Pulse Rate 90 90 93 H Respiratory Rate Blood Pressure 125/85 130/79 136/76 Pulse Oximetry 100 96 99 05/27/18 12:00 Temperature 97.4 F L Pulse Rate 95 H Respiratory Rate Blood Pressure 123/89 Pulse Oximetry 97 Intake & Output 05/26/18 05/27/18 05/27/18 18:59 06:59 18:59 Intake Total 1100 / 1100 950 / 950 240 / 240 Output Total 4 / 4 Balance 1096 / 1096 950 / 950 240 / 240 Weight 53.3 kg Intake: Oral 240 / 240 Tube Feeding 900 / 900 750 / 750 Water Bolus Amount 200 / 200 200 / 200 Output: Urine 3 / 3 Stool / Other: # Incontinent Voids 1 Date of Last Bowel Movement 05/26/18 05/26/18 05/27/18 # Incontinent Bowel Movements 1 Narrative: GENERAL: Resting comfortably. SKIN: Warm and dry. No generalized rash. HEENT: s/p right sided cranioplasty. Dressing in place. Incision appears to be healing well. [place] intact. No sclera injection. No drainage. No nasal drainage. NECK: Trachea midline. Airway patent. CARDIOVASCULAR: Regular rate and rhythm without murmurs, gallops, or rubs. RESPIRATORY: No accessory muscle use. Breath sounds equal bilaterally. GASTROINTESTINAL: Abdomen soft, non-tender, nondistended. PEG site C/D/I. MUSCULOSKELETAL: No cyanosis or edema. NEURO: Awake and alert. Moves right upper and lower extremity spontaneously. Weak bilateral church official L>R. Able to weakly dorsi and plantar flex left foot. Fair strength RLE. Normal speech. PSYCHIATRIC: Flat affect. Calm and cooperative. - Urinary Catheter Management Indwelling Temp Sensing Catheter Cath placed during this visit: yes, but has since been removed by the nurse Reason for continuing: Not indwelling catheter Insertion date: 03/12/18 Insertion time: 05:30 Removal date: 03/25/18 Removal time: 18:00 Indwelling Urethral Catheter Cath placed during this visit: yes, but has since been removed by the nurse Reason for continuing: Decision to DC catheter Insertion date: 03/22/18 Insertion time: 17:30 Removal date: 03/25/18 Removal time: 18:00 Condom Cath placed during this visit: yes, but has since been removed by the nurse Reason for continuing: Hourly intake/output Insertion date: 05/13/18 Insertion time: 14:30 Removal date: 03/25/18 Removal time: 18:00 Results - Labs CBC & Chem 7: 05/19/18 12:08 05/19/18 12:08 - Procedures PEG 7 -25 right decompressive craniectomy 03/22/18 with placement of ICP monitor by Dr. Chacko, tx'ed 03/23/18 03/22/18 Right frontotemporal parietal decompressive craniectomy and Duroplasty 03/22/18 Left frontal bur hole with placement of an intracranial pressure monitor Assessment and Plan - Assessment (1) Intracranial hemorrhage following injury Code(s): S06.309A - Unspecified focal traumatic brain injury with loss of consciousness of unspecified duration, initial encounter Status: Acute (2) Traumatic brain injury Code(s): S06.9X9A - Unspecified intracranial injury with loss of consciousness of unspecified duration, initial encounter Status: Acute (3) Fall Code(s): W19.XXXA - Unspecified fall, initial encounter Status: Chronic (4) Cocaine abuse Code(s): F14.10 - Cocaine abuse, uncomplicated Status: Chronic (5) ETOH abuse Code(s): F10.10 - Alcohol abuse, uncomplicated Status: Chronic (6) Dysphagia Code(s): R13.10 - Dysphagia, unspecified Status: Acute - Plan 62-year-old male admitted secondary to intracranial hemorrhage 05/27: nursing reports the patient has refused to have the khurram removed. He is agreeable if he receives pain medication in advance and they are gently removed. No other concerns. Check labs tomorrow. 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 SAH bilat frontal lobes, right parietal, temporal. Right frontotemporal SDH status post emergency craniectomy for decompression for worsening midline shift right to left 2.1 cm s/p Fall, ?syncope Daily alcohol use/Cocaine abuse - s/p Right frontotemporal parietal decompressive craniectomy and Duroplasty by Dr. Chacko. - s/p right cranioplasty 05/13/18, incision healing well. Khurram in place, possibly to be removed on 05/27. - Continue on Keppra - no seizure activity reported - Continue with PT/OT - PT recommends rehab at discharge - Seizure precautions Palliative care following, appreciate assistance. Per note, patient has improved tremendously. Feels he has capacity to make medical decisions with support of family. Recommended psych consult to assess capacity. Psychiatry consulted, appreciate assistance. - Dr. Narvaez following, appreciate assistance Headache repeat CT head 04/[address] head 04/26 shows stable exam with large right craniectomy defect and 5 mm midline shift, no hemorrhage CTA head negative -Neurology following, appreciate assistance. Started on Topamax 50mg BID for likely vascular component. Topamax increased 05/18 to 75mg BID. -pain control as needed. Dysphagia Protein calorie malnutrition s/p PEG tube placement 03/30/18 - ST re-evaluated and patient given puree diet with nectar thickened liquids. - Calorie count completed, inadequate intake. 04/20 TF resumed - Jevity 1.5 at 75 mls per hour 12 hours at night 7pm to 7am. - Community Service Officer following, recommends continued nighttime feeding and supplement - Needs assistance with all meals Acute respiratory failure secondary to failure to protect airway-resolved extubated MRSA pneumonia, status post treatment with IV vancomycin and Rocephin Tobacco abuse Extubated 03/25/2018 - Continue as needed duo nebs - continue to monitor respiratory status - Supplemental oxygen as needed Pseudomonas UTI - completed abx treatment DVT prophylaxis SCDs No chemoprophylaxis anticoagulation due to recent intracranial bleed (2) Traumatic brain injury Qualifiers: Encounter type: subsequent encounter
[2018-05-27] MEDS ORDERED: Morphine Inj 4 MG/ML Vial IV.PUSH ONE (16:00)
[2018-05-28] MEDS: Oral Hygiene Kit OROPHARYNG SCH ×4 (01:04→15:18)
[2018-05-28] MEDS: Carboxymethylcellulose 0.5% Opth Drops 15 ML Bottle EACH EYE SCH ×3 (06:20→23:03)
[2018-05-28 06:57] LABS: Baso % (Auto) 0.9 % (0.0-2.0); Eos # (Auto) 0.1 th/mm3 (0.0-0.4); Eos % (Auto) 1.7 % (0.0-4.0); Hematocrit 37.8 % (39.0-51.0); Hemoglobin 12.7 gm/dL (13.0-17.0); Lymph # (Auto) 1.5 th/mm3 (1.0-4.8); Lymph % (Auto) 44.4 % (9.0-44.0); Mean Corpuscular HGB Conc 33.7 % (32.0-36.0); Mean Corpuscular Hemoglobin 30.2 pg (27.0-34.0); Mean Corpuscular Volume 89.7 fL (80.0-100.0); Mean Platelet Volume 7.2 fL (7.0-11.0); Mono # (Auto) 0.2 th/mm3 (0.0-0.9); Mono % (Auto) 6.6 % (0.0-8.0); Neut # (Auto) 1.5 th/mm3 (1.8-7.7); Neut % (Auto) 46.4 % (16.0-70.0); Platelet Count 453 th/mm3 (150-450); Red Blood Count 4.21 mil/mm3 (4.50-5.90); Red Cell Distribution Width 14.2 % (11.6-17.2); White Blood Count 3.3 th/mm3 (4.0-11.0)
[2018-05-28 07:57] LABS: Anion Gap 9 meq/L (5-15); Blood Urea Nitrogen 24 mg/dL (7-18); Calcium 9.3 mg/dL (8.5-10.1); Carbon Dioxide 26.4 meq/L (21.0-32.0); Chloride 103 meq/L (98-107); Glomerular Filtration Rate Greater Than 89 mL/min (>89); Glucose,Random 107 mg/dL (74-106); Magnesium 2.2 mg/dL (1.5-2.5); Sodium 138 meq/L (136-145)
[2018-05-28 08:50] LABS: Ovalocytes 1+; Platelet Morphology Normal (Normal)
[2018-05-28] MEDS: Senna/Docusate Sodium 8.6/50 MG Tablet PO SCH ×2 (09:32→23:03)
[2018-05-28] MEDS: Sennosides Liq 8.8 MG/5 ML UDC NG/OG SCH ×2 (09:33→23:03)
[2018-05-28] MEDS: Topiramate 25 MG Tablet PO SCH ×2 (09:33→23:03)
--- NOTE | 2018-05-28 13:12 | P.PNIM ---
Subjective Interval history: The patient was sitting up in a chair. He was not hungry. He said he wanted to go back to the bed. He had no other acute complaints. Physical Exam Vital signs: Vital Signs 05/27/18 16:00 05/27/18 20:00 05/28/18 00:00 Temperature 97.4 F L 97.7 F 97.8 F Pulse Rate 93 H 94 H 95 H Respiratory Rate 20 20 20 Blood Pressure 120/83 125/89 112/78 Pulse Oximetry 100 96 99 05/28/18 04:00 05/28/18 08:00 05/28/18 11:44 Temperature 97.9 F 97.4 F L 97.4 F L Pulse Rate 96 H 93 H 80 Respiratory Rate 20 18 18 Blood Pressure 131/80 141/79 H 128/82 Pulse Oximetry 98 99 93 L Intake & Output 05/27/18 05/28/18 05/28/18 18:59 06:59 18:59 Intake Total 240 / 240 1000 / 1000 Balance 240 / 240 1000 / 1000 Intake: Oral 240 / 240 Tube Feeding 800 / 800 Water Bolus Amount 200 / 200 Other: # Urine Diapers 3 Date of Last Bowel Movement 05/27/18 05/27/18 05/28/18 # Bowel Movements 1 # Incontinent Bowel Movements 2 Narrative: GENERAL: Resting comfortably. SKIN: Warm and dry. No generalized rash. HEENT: s/p right sided cranioplasty. Dressing in place. Incision appears to be healing well. No sclera injection. No drainage. No nasal drainage. NECK: Trachea midline. Airway patent. CARDIOVASCULAR: Regular rate and rhythm without murmurs, gallops, or rubs. RESPIRATORY: No accessory muscle use. Breath sounds equal bilaterally. GASTROINTESTINAL: Abdomen soft, non-tender, nondistended. PEG site C/D/I. MUSCULOSKELETAL: No cyanosis or edema. NEURO: Awake and alert. Moves right upper and lower extremity spontaneously. Weak bilateral fruit checker L>R. Able to weakly dorsi and plantar flex left foot. Fair strength RLE. Normal speech. PSYCHIATRIC: Flat affect. Calm and cooperative. - Urinary Catheter Management Indwelling Temp Sensing Catheter Cath placed during this visit: yes, but has since been removed by the nurse Reason for continuing: Not indwelling catheter Insertion date: 03/12/18 Insertion time: 05:30 Removal date: 03/25/18 Removal time: 18:00 Indwelling Urethral Catheter Cath placed during this visit: yes, but has since been removed by the nurse Reason for continuing: Decision to DC catheter Insertion date: 03/22/18 Insertion time: 17:30 Removal date: 03/25/18 Removal time: 18:00 Condom Cath placed during this visit: yes, but has since been removed by the nurse Reason for continuing: Hourly intake/output Insertion date: 05/13/18 Insertion time: 14:30 Removal date: 03/25/18 Removal time: 18:00 Results - Labs CBC & Chem 7: 05/28/18 05:29 05/28/18 05:29 Laboratory Results - last 24 hr 05/28/18 05/28/18 05:29 05:29 WBC 3.3 L RBC 4.21 L Hgb 12.7 L Hct 37.8 L MCV 89.7 MCH 30.2 MCHC 33.7 RDW 14.2 Plt Count 453 H D MPV 7.2 Prelim Diff (Auto) Slide review pending Neut % (Auto) 46.4 Lymph % (Auto) 44.4 H [place] % (Auto) 6.6 Eos % (Auto) 1.7 Baso % (Auto) 0.9 Neut # (Auto) 1.5 L Lymph # (Auto) 1.5 [place] # (Auto) 0.2 Eos # (Auto) 0.1 Baso # (Auto) 0.0 WBC Differential . Diff Scan Auto diff confirmed Differential Comment . Platelet Estimate High H Platelet Morphology Normal Ovalocytes 1+ H Sodium 138 Potassium 4.0 Chloride 103 Carbon Dioxide 26.4 Anion Gap 9 BUN 24 H Creatinine 0.70 Estimated GFR Greater than 89 Random Glucose 107 H Calcium 9.3 Magnesium 2.2 - Procedures PEG 7 -25 right decompressive craniectomy 03/22/18 with placement of ICP monitor by Dr. Chacko, az'ed 03/23/18 03/22/18 Right frontotemporal parietal decompressive craniectomy and Duroplasty 03/22/18 Left frontal bur hole with placement of an intracranial pressure monitor Assessment and Plan - Assessment (1) Intracranial hemorrhage following injury Code(s): S06.309A - Unspecified focal traumatic brain injury with loss of consciousness of unspecified duration, initial encounter Status: Acute (2) Traumatic brain injury Code(s): S06.9X9A - Unspecified intracranial injury with loss of consciousness of unspecified duration, initial encounter Status: Acute (3) Fall Code(s): W19.XXXA - Unspecified fall, initial encounter Status: Chronic (4) Cocaine abuse Code(s): F14.10 - Cocaine abuse, uncomplicated Status: Chronic (5) ETOH abuse Code(s): F10.10 - Alcohol abuse, uncomplicated Status: Chronic (6) Dysphagia Code(s): R13.10 - Dysphagia, unspecified Status: Acute - Plan 62-year-old male admitted secondary to intracranial hemorrhage 05/28: Nursing reports the patient had the khurram removed. He was sitting up in the chair and wanted to go back to bed. Repeat labs stable. Continue current management. 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 SAH bilat frontal lobes, right parietal, temporal. Right frontotemporal SDH status post emergency craniectomy for decompression for worsening midline shift right to left 2.1 cm s/p Fall, ?syncope Daily alcohol use/Cocaine abuse - s/p Right frontotemporal parietal decompressive craniectomy and Duroplasty by Dr. Chacko. - s/p right cranioplasty 05/13/18, incision healing well. [place] removed. - Continue on Keppra - no seizure activity reported - Continue with PT/OT - PT recommends rehab at discharge - Seizure precautions Palliative care following, appreciate assistance. Per note, patient has improved tremendously. Feels he has capacity to make medical decisions with support of family. Recommended psych consult to assess capacity. Psychiatry consulted, appreciate assistance. - Dr. Narvaez following, appreciate assistance Headache repeat CT head 04/[address] head 04/26 shows stable exam with large right craniectomy defect and 5 mm midline shift, no hemorrhage CTA head negative -Neurology following, appreciate assistance. Started on Topamax 50mg BID for likely vascular component. Topamax increased 05/18 to 75mg BID. -pain control as needed. Dysphagia Protein calorie malnutrition s/p PEG tube placement 03/30/18 - ST re-evaluated and patient given puree diet with nectar thickened liquids. - Calorie count completed, inadequate intake. 04/20 TF resumed - Jevity 1.5 at 75 mls per hour 12 hours at night 7pm to 7am. - Data Report Analyst following, recommends continued nighttime feeding and supplement - Needs assistance with all meals Acute respiratory failure secondary to failure to protect airway-resolved extubated MRSA pneumonia, status post treatment with IV vancomycin and Rocephin Tobacco abuse Extubated 03/25/2018 - Continue as needed duo nebs - continue to monitor respiratory status - Supplemental oxygen as needed Pseudomonas UTI - completed abx treatment DVT prophylaxis SCDs No chemoprophylaxis anticoagulation due to recent intracranial bleed (2) Traumatic brain injury Qualifiers: Encounter type: subsequent encounter
[2018-05-29] MEDS: Oral Hygiene Kit OROPHARYNG SCH ×3 (04:08→18:17)
[2018-05-29] MEDS: Sennosides Liq 8.8 MG/5 ML UDC NG/OG SCH ×2 (09:58→20:50)
[2018-05-29] MEDS: Senna/Docusate Sodium 8.6/50 MG Tablet PO SCH ×2 (09:58→20:49)
[2018-05-29] MEDS: Topiramate 25 MG Tablet PO SCH ×2 (09:58→20:50)
[2018-05-29] MEDS: Carboxymethylcellulose 0.5% Opth Drops 15 ML Bottle EACH EYE SCH ×3 (09:59→21:03)
--- NOTE | 2018-05-29 13:26 | P.PNIM ---
Subjective Interval history: The patient was resting comfortably. He indicated he had some abdominal discomfort. He wanted his tube feeds slow down. He wanted to go to the bathroom. Discussed with nursing. Physical Exam Vital signs: Vital Signs 05/28/18 15:44 05/28/18 20:00 05/29/18 00:00 Temperature 97.4 F L 98.7 F 98 F Pulse Rate 96 H 107 H 93 H Respiratory Rate 19 18 18 Blood Pressure 129/80 126/82 129/65 Pulse Oximetry 98 99 98 05/29/18 07:50 05/29/18 11:56 Temperature 98.0 F 98.0 F Pulse Rate 95 H 93 H Respiratory Rate 18 18 Blood Pressure 128/86 124/85 Pulse Oximetry 98 93 L Intake & Output 05/28/18 05/29/18 05/29/18 18:59 06:59 18:59 Weight 53.1 kg Other: # Voids 3 Date of Last Bowel Movement 05/28/18 05/29/18 # Bowel Movements 1 2 1 # Incontinent Bowel Movements 1 Narrative: GENERAL: Resting comfortably. SKIN: Warm and dry. No generalized rash. HEENT: s/p right sided cranioplasty. Dressing in place. Incision appears to be healing well. No sclera injection. No drainage. No nasal drainage. NECK: Trachea midline. Airway patent. CARDIOVASCULAR: Regular rate and rhythm without murmurs, gallops, or rubs. RESPIRATORY: No accessory muscle use. Breath sounds equal bilaterally. GASTROINTESTINAL: Abdomen soft, mild tenderness, nondistended. PEG site C/D/I. MUSCULOSKELETAL: No cyanosis or edema. NEURO: Awake and alert. Moves right upper and lower extremity spontaneously. Weak bilateral contact lens technician L>R. Able to weakly dorsi and plantar flex left foot. Fair strength RLE. Normal speech. PSYCHIATRIC: Flat affect. Calm and cooperative. - Urinary Catheter Management Indwelling Temp Sensing Catheter Cath placed during this visit: yes, but has since been removed by the nurse Reason for continuing: Not indwelling catheter Insertion date: 03/12/18 Insertion time: 05:30 Removal date: 03/25/18 Removal time: 18:00 Indwelling Urethral Catheter Cath placed during this visit: yes, but has since been removed by the nurse Reason for continuing: Decision to DC catheter Insertion date: 03/22/18 Insertion time: 17:30 Removal date: 03/25/18 Removal time: 18:00 Condom Cath placed during this visit: yes, but has since been removed by the nurse Reason for continuing: Hourly intake/output Insertion date: 05/13/18 Insertion time: 14:30 Removal date: 03/25/18 Removal time: 18:00 Results - Labs CBC & Chem 7: 05/28/18 05:29 05/28/18 05:29 - Procedures PEG 7 -25 right decompressive craniectomy 03/22/18 with placement of ICP monitor by Dr. Chacko, nc'ed 03/23/18 03/22/18 Right frontotemporal parietal decompressive craniectomy and Duroplasty 03/22/18 Left frontal bur hole with placement of an intracranial pressure monitor Assessment and Plan - Assessment (1) Intracranial hemorrhage following injury Code(s): S06.309A - Unspecified focal traumatic brain injury with loss of consciousness of unspecified duration, initial encounter Status: Acute (2) Traumatic brain injury Code(s): S06.9X9A - Unspecified intracranial injury with loss of consciousness of unspecified duration, initial encounter Status: Acute (3) Fall Code(s): W19.XXXA - Unspecified fall, initial encounter Status: Chronic (4) Cocaine abuse Code(s): F14.10 - Cocaine abuse, uncomplicated Status: Chronic (5) ETOH abuse Code(s): F10.10 - Alcohol abuse, uncomplicated Status: Chronic (6) Dysphagia Code(s): R13.10 - Dysphagia, unspecified Status: Acute - Plan 62-year-old male admitted secondary to intracranial hemorrhage 05/29: Decrease tube feed rate s/t abdominal discomfort. Will reassess in AM. Continue current management. 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 SAH bilat frontal lobes, right parietal, temporal. Right frontotemporal SDH status post emergency craniectomy for decompression for worsening midline shift right to left 2.1 cm s/p Fall, ?syncope Daily alcohol use/Cocaine abuse - s/p Right frontotemporal parietal decompressive craniectomy and Duroplasty by Dr. Chacko. - s/p right cranioplasty 05/13/18, incision healing well. [place] removed. - Continue on Keppra - no seizure activity reported - Continue with PT/OT - PT recommends rehab at discharge - Seizure precautions Palliative care following, appreciate assistance. Per note, patient has improved tremendously. Feels he has capacity to make medical decisions with support of family. Recommended psych consult to assess capacity. Psychiatry consulted, appreciate assistance. - Dr. Narvaez following, appreciate assistance Headache repeat CT head 04/[address] head 04/26 shows stable exam with large right craniectomy defect and 5 mm midline shift, no hemorrhage CTA head negative -Neurology following, appreciate assistance. Started on Topamax 50mg BID for likely vascular component. Topamax increased 05/18 to 75mg BID. -pain control as needed. Dysphagia Protein calorie malnutrition s/p PEG tube placement 03/30/18 - ST re-evaluated and patient given puree diet with nectar thickened liquids. - Calorie count completed, inadequate intake. 04/20 TF resumed - Jevity 1.5 at 75 mls per hour 12 hours at night 7pm to 7am. - Hearing Aid Repairer following, recommends continued nighttime feeding and supplement - Needs assistance with all meals Acute respiratory failure secondary to failure to protect airway-resolved extubated MRSA pneumonia, status post treatment with IV vancomycin and Rocephin Tobacco abuse Extubated 03/25/2018 - Continue as needed duo nebs - continue to monitor respiratory status - Supplemental oxygen as needed Pseudomonas UTI - completed abx treatment DVT prophylaxis SCDs No chemoprophylaxis anticoagulation due to recent intracranial bleed (2) Traumatic brain injury Qualifiers: Encounter type: subsequent encounter
[2018-05-30] MEDS: Sennosides Liq 8.8 MG/5 ML UDC NG/OG SCH ×2 (08:40→21:06)
[2018-05-30] MEDS: Topiramate 25 MG Tablet PO SCH ×2 (08:40→21:05)
[2018-05-30] MEDS: Senna/Docusate Sodium 8.6/50 MG Tablet PO SCH ×2 (08:40→21:05)
[2018-05-30] MEDS: Carboxymethylcellulose 0.5% Opth Drops 15 ML Bottle EACH EYE SCH ×3 (08:45→23:32)
[2018-05-30] MEDS: Oral Hygiene Kit OROPHARYNG SCH ×2 (08:45→21:07)
--- NOTE | 2018-05-30 15:15 | P.PNIM ---
Subjective Interval history: The patient was sleeping in bed. He denied any acute complaints. He said he was breathing comfortably. He has been going to the bathroom without difficulty. Discussed with nursing. Physical Exam Vital signs: Vital Signs 05/29/18 16:00 05/29/18 20:00 05/30/18 00:00 Temperature 97.7 F 98.2 F 98.1 F Pulse Rate 96 H 98 H 92 H Respiratory Rate 18 18 18 Blood Pressure 124/73 130/85 127/82 Pulse Oximetry 98 99 98 05/30/18 04:00 05/30/18 07:22 05/30/18 08:00 Temperature 98.1 F 97.7 F Pulse Rate 93 H 95 H Respiratory Rate 18 18 21 Blood Pressure 136/77 113/74 Pulse Oximetry 97 05/30/18 12:00 Temperature 97.3 F L Pulse Rate 104 H Respiratory Rate 20 Blood Pressure 125/91 H Pulse Oximetry 100 Intake & Output 05/29/18 05/30/18 05/30/18 18:59 06:59 18:59 Intake Total 900 / 900 Output Total 2 / 2 Balance 898 / 898 Weight 53.1 kg Intake: Tube Feeding 650 / 650 Tube Irrigant 250 / 250 Output: Urine/Stool Mix 2 / 2 Other: # Voids 3 1 Date of Last Bowel Movement 05/29/18 # Bowel Movements 1 1 # Incontinent Bowel Movements 1 Narrative: GENERAL: Resting comfortably. SKIN: Warm and dry. No generalized rash. HEENT: s/p right sided cranioplasty. Dressing in place. Incision appears to be healing well. No sclera injection. No drainage. No nasal drainage. NECK: Trachea midline. Airway patent. CARDIOVASCULAR: Regular rate and rhythm without murmurs, gallops, or rubs. RESPIRATORY: No accessory muscle use. Breath sounds equal bilaterally. GASTROINTESTINAL: Abdomen soft, mild tenderness, nondistended. PEG site C/D/I. MUSCULOSKELETAL: No cyanosis or edema. NEURO: Awake and alert. Moves right upper and lower extremity spontaneously. Weak bilateral solution consultant L>R. Able to weakly dorsi and plantar flex left foot. Fair strength RLE. Normal speech. PSYCHIATRIC: Flat affect. Calm and cooperative. - Urinary Catheter Management Indwelling Temp Sensing Catheter Cath placed during this visit: yes, but has since been removed by the nurse Reason for continuing: Not indwelling catheter Insertion date: 03/12/18 Insertion time: 05:30 Removal date: 03/25/18 Removal time: 18:00 Indwelling Urethral Catheter Cath placed during this visit: yes, but has since been removed by the nurse Reason for continuing: Decision to DC catheter Insertion date: 03/22/18 Insertion time: 17:30 Removal date: 03/25/18 Removal time: 18:00 Condom Cath placed during this visit: yes, but has since been removed by the nurse Reason for continuing: Hourly intake/output Insertion date: 05/13/18 Insertion time: 14:30 Removal date: 03/25/18 Removal time: 18:00 Results - Labs CBC & Chem 7: 05/28/18 05:29 05/28/18 05:29 - Procedures PEG 7 -25 right decompressive craniectomy 03/22/18 with placement of ICP monitor by Dr. Chacko, [facility] 03/23/18 03/22/18 Right frontotemporal parietal decompressive craniectomy and Duroplasty 03/22/18 Left frontal bur hole with placement of an intracranial pressure monitor Assessment and Plan - Assessment (1) Intracranial hemorrhage following injury Code(s): S06.309A - Unspecified focal traumatic brain injury with loss of consciousness of unspecified duration, initial encounter Status: Acute (2) Traumatic brain injury Code(s): S06.9X9A - Unspecified intracranial injury with loss of consciousness of unspecified duration, initial encounter Status: Acute (3) Fall Code(s): W19.XXXA - Unspecified fall, initial encounter Status: Chronic (4) Cocaine abuse Code(s): F14.10 - Cocaine abuse, uncomplicated Status: Chronic (5) ETOH abuse Code(s): F10.10 - Alcohol abuse, uncomplicated Status: Chronic (6) Dysphagia Code(s): R13.10 - Dysphagia, unspecified Status: Acute - Plan 62-year-old male admitted secondary to intracranial hemorrhage 05/30: Resting comfortably. Tube feed rate has been decreased b/c pt was complaining of abdominal discomfort yesterday. Continue current management. 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 SAH bilat frontal lobes, right parietal, temporal. Right frontotemporal SDH status post emergency craniectomy for decompression for worsening midline shift right to left 2.1 cm s/p Fall, ?syncope Daily alcohol use/Cocaine abuse - s/p Right frontotemporal parietal decompressive craniectomy and Duroplasty by Dr. Chacko. - s/p right cranioplasty 05/13/18, incision healing well. Pilot removed. - Continue on Keppra - no seizure activity reported - Continue with PT/OT - PT recommends rehab at discharge - Seizure precautions Palliative care following, appreciate assistance. Per note, patient has improved tremendously. Feels he has capacity to make medical decisions with support of family. Recommended psych consult to assess capacity. Psychiatry consulted, appreciate assistance. - Dr. Narvaez following, appreciate assistance Headache repeat CT head 04/[address] head 04/26 shows stable exam with large right craniectomy defect and 5 mm midline shift, no hemorrhage CTA head negative -Neurology following, appreciate assistance. Started on Topamax 50mg BID for likely vascular component. Topamax increased 05/18 to 75mg BID. -pain control as needed. Dysphagia Protein calorie malnutrition s/p PEG tube placement 03/30/18 - ST re-evaluated and patient given puree diet with nectar thickened liquids. - Calorie count completed, inadequate intake. 04/20 TF resumed - Jevity 1.5 at 75 mls per hour 12 hours at night 7pm to 7am. - Dry Molder following, recommends continued nighttime feeding and supplement - Needs assistance with all meals Acute respiratory failure secondary to failure to protect airway-resolved extubated MRSA pneumonia, status post treatment with IV vancomycin and Rocephin Tobacco abuse Extubated 03/25/2018 - Continue as needed duo nebs - continue to monitor respiratory status - Supplemental oxygen as needed Pseudomonas UTI - completed abx treatment DVT prophylaxis SCDs No chemoprophylaxis anticoagulation due to recent intracranial bleed (2) Traumatic brain injury Qualifiers: Encounter type: subsequent encounter
[2018-05-31] MEDS: Oral Hygiene Kit OROPHARYNG SCH ×5 (02:21→23:33)
[2018-05-31] MEDS: Sennosides Liq 8.8 MG/5 ML UDC NG/OG SCH ×2 (08:20→20:44)
[2018-05-31] MEDS: Senna/Docusate Sodium 8.6/50 MG Tablet PO SCH ×2 (08:20→20:44)
[2018-05-31] MEDS: Topiramate 25 MG Tablet PO SCH ×2 (08:20→20:44)
[2018-05-31] MEDS: Carboxymethylcellulose 0.5% Opth Drops 15 ML Bottle EACH EYE SCH ×3 (08:21→23:32)
--- NOTE | 2018-05-31 08:47 | P.PNNPSY ---
- Behavior Intact: Impulsive/agitated - Cognitive Moderate: Cognitive, Attention/concentration, Confused/orientation, Insight/ awareness, Judgment/problem solving, Memory - Progress Notes/Response to Treatment Contents of Sessions: Adjustment, Level of consciousness Time with Patient: 15 minutes Premorbid Psychological Status: Premorbid Cognitive, Emotional and Behavioral Status: Unstable. The patient has high school and AA degree years of education and a minimal work history prior to this injury. The patient has prior psychiatric difficulties, as described above. Substance abuse history is significant. Behavioral Reactions of Patient and Family/Support System: Unstable. The patient has one daughter whom he reported he has minimal contact. This patient s family may be experiencing ongoing issues of adjustment given the nature of the injury, and this aspect of recovery will require ongoing monitoring. Emotional/Behavioral Status of Patient and Family/Support System: Unstable. Pertinent issues, if appropriate to this patients clinical care, are described in detail above. Maximizing Acute Care Outcome: It is recommended that the patient be monitored for emergent behavioral impulsivity as the medical condition evolves. The ABS is already started and he is not agitated/restless. This patients neuropathological challenges may limit rehabilitation potential going forward, and these challenges will require specialized therapeutic skills to maximize outcome. At this point in the recovery process, the patient's decision making capacity may have improved to some extent but it is unclear whether he is able to understand a situation and its likely consequences, or whether he is able to manipulate information rationally at a level commensurate with his baseline. On the brief exam today, I would surmise no. Cognitive capacity will be assessed throughout the recovery process. Anticipated Problems: Ongoing areas of concern will include behavioral impulsivity, lack of insight and judgment, which may not improve with time or treatment. Presently, the patient follows commands when told to do so. Given the severity of the patient' s injuries it is my clinical opinion that this patient will be unable to return to any type of productive employment for at least one year, perhaps longer and likely never. This patient is not considered safe to discharge home without supervision. He will likely require SNF placement. Treatment Plan: This clinician will continue to follow with you throughout the course of this patients acute care treatment, and I will be available to meet with the patient s family/support system to facilitate their understanding and the ongoing care of their family member. The goals of neuropsychological intervention shall be both educational and supportive to the family/support system as is deemed clinically appropriate. Disinhibition Score: 14.00 Aggression Score: 14.00 Lability Score: 14.00 Agitated Behavior Total Score: 14 Impression: This 62 year old male with s/p bifrontal TBI, DC and history of polysubstance dependence who is day 47 post admission. This patient presents with neurobehavioral sequelae consistent with frontal lobe pathology, including bradyphrenia, abulia, disconnection between thought and emotion, motor impersistence as well as demonstrating visual neglect (versus field cut). These issues are approaching chronic in nature particularly in the context of underlying neuropathology related to his polysubstance dependence. Progress Note Narrative: Day 89. The patient remains neurobehaviorally unchanged, abulic, amotivational , but compliant and cooperative. No issues of agitation/restlessness. He remains on Topamax, Restoril and Keppra. Consider an alternative to Restoril such as Trazodone or melatonin for sleep, as benzos tend to prolong confusion in neurologically compromised and elderly patients, unless medically contraindicated. I will follow. - Diagnosis (1) Major neurocognitive disorder as late effect of traumatic brain injury with behavioral disturbance Status: Acute (2) Polysubstance dependence Status: Resolved
--- NOTE | 2018-05-31 11:32 | P.PNIM ---
Subjective Interval history: The patient said that she would prefer to have his pain pills in pudding rather than through the G-tube. He says when he gets medications through the G-tube hurts his stomach. He complains of nausea. He says his head is hurting him. Discussed with nursing. He was about to work with physical therapy. Physical Exam Vital signs: Vital Signs 05/30/18 12:00 05/30/18 16:00 05/30/18 20:00 Temperature 97.3 F L 97.7 F 97.5 F L Pulse Rate 104 H 93 H 87 Respiratory Rate 20 17 16 Blood Pressure 125/91 H 119/75 117/71 Pulse Oximetry 100 99 98 05/31/18 04:00 05/31/18 08:00 Temperature 97.7 F 97.8 F Pulse Rate 86 85 Respiratory Rate 18 20 Blood Pressure 112/73 115/79 Pulse Oximetry 99 99 Intake & Output 05/30/18 05/31/18 05/31/18 18:59 06:59 18:59 Weight 52.7 kg Other: # Voids 1 # Incontinent Voids 1 # Bowel Movements 1 Narrative: GENERAL: Resting comfortably. SKIN: Warm and dry. No generalized rash. HEENT: s/p right sided cranioplasty. Dressing in place. Incision appears to be healing well. No sclera injection. No drainage. No nasal drainage. NECK: Trachea midline. Airway patent. CARDIOVASCULAR: Regular rate and rhythm without murmurs, gallops, or rubs. RESPIRATORY: No accessory muscle use. Breath sounds equal bilaterally. GASTROINTESTINAL: Abdomen soft, mild tenderness, nondistended. PEG site C/D/I. MUSCULOSKELETAL: No cyanosis or edema. NEURO: Awake and alert. Moves right upper and lower extremity spontaneously. Weak bilateral administrative coordinator L>R. Able to weakly dorsi and plantar flex left foot. Fair strength RLE. Normal speech. PSYCHIATRIC: Flat affect. Calm and cooperative. - Urinary Catheter Management Indwelling Temp Sensing Catheter Cath placed during this visit: yes, but has since been removed by the nurse Reason for continuing: Not indwelling catheter Insertion date: 03/12/18 Insertion time: 05:30 Removal date: 03/25/18 Removal time: 18:00 Indwelling Urethral Catheter Cath placed during this visit: yes, but has since been removed by the nurse Reason for continuing: Decision to DC catheter Insertion date: 03/22/18 Insertion time: 17:30 Removal date: 03/25/18 Removal time: 18:00 Condom Cath placed during this visit: yes, but has since been removed by the nurse Reason for continuing: Hourly intake/output Insertion date: 05/13/18 Insertion time: 14:30 Removal date: 03/25/18 Removal time: 18:00 Results - Labs CBC & Chem 7: 05/28/18 05:29 05/28/18 05:29 - Procedures PEG right decompressive craniectomy 03/22/18 with placement of ICP monitor by Dr. Chacko, ar'ed 03/23/18 03/22/18 Right frontotemporal parietal decompressive craniectomy and Duroplasty 03/22/18 Left frontal bur hole with placement of an intracranial pressure monitor Assessment and Plan - Assessment (1) Intracranial hemorrhage following injury Code(s): S06.309A - Unspecified focal traumatic brain injury with loss of consciousness of unspecified duration, initial encounter Status: Acute (2) Traumatic brain injury Code(s): S06.9X9A - Unspecified intracranial injury with loss of consciousness of unspecified duration, initial encounter Status: Acute (3) Fall Code(s): W19.XXXA - Unspecified fall, initial encounter Status: Chronic (4) Cocaine abuse Code(s): F14.10 - Cocaine abuse, uncomplicated Status: Chronic (5) ETOH abuse Code(s): F10.10 - Alcohol abuse, uncomplicated Status: Chronic (6) Dysphagia Code(s): R13.10 - Dysphagia, unspecified Status: Acute - Plan 62-year-old male admitted secondary to intracranial hemorrhage 05/31: Resting comfortably. Pt requested pain meds be placed in his pudding. Has nausea. Continue medical management. 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 SAH bilat frontal lobes, right parietal, temporal. Right frontotemporal SDH status post emergency craniectomy for decompression for worsening midline shift right to left 2.1 cm s/p Fall, ?syncope Daily alcohol use/Cocaine abuse - s/p Right frontotemporal parietal decompressive craniectomy and Duroplasty by Dr. Chacko. - s/p right cranioplasty 05/13/18, incision healing well. Jose removed. - Continue on Keppra - no seizure activity reported - Continue with PT/OT - PT recommends rehab at discharge - Seizure precautions Palliative care following, appreciate assistance. Per note, patient has improved tremendously. Feels he has capacity to make medical decisions with support of family. Recommended psych consult to assess capacity. Psychiatry consulted, appreciate assistance. - Dr. Narvaez following, appreciate assistance Headache repeat CT head 04/[address] head 04/26 shows stable exam with large right craniectomy defect and 5 mm midline shift, no hemorrhage CTA head negative -Neurology following, appreciate assistance. Started on Topamax 50mg BID for likely vascular component. Topamax increased 05/18 to 75mg BID. -pain control as needed. Dysphagia Protein calorie malnutrition s/p PEG tube placement 03/30/18 - ST re-evaluated and patient given puree diet with nectar thickened liquids. - Calorie count completed, inadequate intake. 04/20 TF resumed - Jevity 1.5 at 75 mls per hour 12 hours at night 7pm to 7am. - User Experience Designer following, recommends continued nighttime feeding and supplement. Continue to monitor and follow dietary recs. - Needs assistance with all meals Acute respiratory failure secondary to failure to protect airway-resolved extubated MRSA pneumonia, status post treatment with IV vancomycin and Rocephin Tobacco abuse Extubated 03/25/2018 - Continue as needed duo nebs - continue to monitor respiratory status - Supplemental oxygen as needed Pseudomonas UTI - completed abx treatment DVT prophylaxis SCDs No chemoprophylaxis anticoagulation due to recent intracranial bleed (2) Traumatic brain injury Qualifiers: Encounter type: subsequent encounter
--- NOTE | 2018-05-31 13:54 | P.DIET ---
Nutritional Evaluation Type of nutrition evaluation: follow-up Nutrition consult regarding: Tube Feeding Nutrition screening: [facility] [place] Subjective Subjective Comments: Eats ~50%. Objective - Diagnosis ICH, SAH, Syncope - Objective % IBW: 87 (IBW = 166#) Body Weight Used for Calculations: Actual (65.4 kg) Energy Needs - Lower Range (kCal/kg): 28 Energy Needs - Upper Range (kCal/kg): 33 Lower Limit kCal/kg (kCals): 1,831 Upper Limit kCal/kg (kCals): 2,158 Lower Limit Protein Factor (Grams per Kg): 1.2 Upper Limit Protein Factor (Grams per Kg): 1.5 Lower Protein Needs (Protein): 79 Upper Protein Needs (Protein): 98 Fluid Factor (ml/kg): 28 Estimated Fluid Needs (ml): 1,831 Dietitian Reviewed in Medical Record: Current diet, Curent medications, Intake & Output, Labs, Medical history, Tube feeding, Wound/DTI Diet Order: Mechanical Soft Speech Therapy Recommendations: Yes Objective Comments: PMH: COPD, Asthma, tobacco abuse, daily ETOH use 03/22 R front temporal parietal decompressive craniectomy Integumentary: coccyx pressure injury PEG placement 03/30/1805/13 R frontal temporal parietal cranioplasty Feeding - Current Tube Feeding Tube Feeding Product: Jevity 1.5 Tube Feeding Rate: 75 (mls/hr x 12 hours) Tube Feeding Route: gastrostomy Current kCals Provided by Tube Feedin,350 Current Protein Provided by Tube Feeding (gPRO): 57 Current Free H2O Provided (m/l): 1,003 - Current PO Supplement Current Supplement: Ensure Enlive Current Frequency of Supplement: Three times a day Current kCals Provided by Supplement: 350 Current Protein Provided by Supplement: 20 Supplement Comments: plus Ensure Pudding(= 170 kcal and 4g protein per serving) Assessment Assessment: Pt was extubated on 03/25 and PEG tube placed 03/30. Current diet is mechanical soft and Ensure Enlive and Ensure Pudding added. CBW is 52.7 kg which indicates weight loss since admission. Recommend continue night time TFing to supplement po intake to prevent further nutritional compromise. Recommend increase Jevity 1.5 to 85 mls/hr from 7pm -7am to provide 1530 kcals and 65 gms protein. Pt is still unable to meet nutritional needs with po intake alone. Benefits from full assistance at meals. Goal would be to discontinue TF at some point. Recommendations: 1. Diet per ST 2. INCREASE TF: Jevity 1.5 @ 85 mls/hr x 12 hours at night 3.Continue Ensure Enlive TID 4.Continue Ensure Pudding TID 5. Please provide full assistance at meals Dietitian to Monitor: Lab values, Supplement acceptance, Intake & Output, Diet tolerance, Weight change, PO Intake, Wound/skin status, Medical course
[2018-05-31] MEDS: Melatonin 5 MG Tablet PO PRN (20:44)
[2018-06-01] MEDS: Oral Hygiene Kit OROPHARYNG SCH ×4 (04:57→23:44)
[2018-06-01] MEDS: Carboxymethylcellulose 0.5% Opth Drops 15 ML Bottle EACH EYE SCH ×3 (05:00→21:58)
--- NOTE | 2018-06-01 08:34 | P.PNNPSY ---
- Progress Notes/Response to Treatment Contents of Sessions: Adjustment, Level of consciousness Time with Patient: 15 minutes Premorbid Psychological Status: Premorbid Cognitive, Emotional and Behavioral Status: Unstable. The patient has high school and AA degree years of education and a minimal work history prior to this injury. The patient has prior psychiatric difficulties, as described above. Substance abuse history is significant. Behavioral Reactions of Patient and Family/Support System: Unstable. The patient has one daughter whom he reported he has minimal contact. This patient s family may be experiencing ongoing issues of adjustment given the nature of the injury, and this aspect of recovery will require ongoing monitoring. Emotional/Behavioral Status of Patient and Family/Support System: Unstable. Pertinent issues, if appropriate to this patients clinical care, are described in detail above. Maximizing Acute Care Outcome: It is recommended that the patient be monitored for emergent behavioral impulsivity as the medical condition evolves. The ABS is already started and he is not agitated/restless. This patients neuropathological challenges may limit rehabilitation potential going forward, and these challenges will require specialized therapeutic skills to maximize outcome. At this point in the recovery process, the patient's decision making capacity may have improved to some extent but it is unclear whether he is able to understand a situation and its likely consequences, or whether he is able to manipulate information rationally at a level commensurate with his baseline. On the brief exam today, I would surmise no. Cognitive capacity will be assessed throughout the recovery process. Anticipated Problems: Ongoing areas of concern will include behavioral impulsivity, lack of insight and judgment, which may not improve with time or treatment. Presently, the patient follows commands when told to do so. Given the severity of the patient' s injuries it is my clinical opinion that this patient will be unable to return to any type of productive employment for at least one year, perhaps longer and likely never. This patient is not considered safe to discharge home without supervision. He will likely require SNF placement. Treatment Plan: This clinician will continue to follow with you throughout the course of this patients acute care treatment, and I will be available to meet with the patient s family/support system to facilitate their understanding and the ongoing care of their family member. The goals of neuropsychological intervention shall be both educational and supportive to the family/support system as is deemed clinically appropriate. Disinhibition Score: 14.00 Aggression Score: 14.00 Lability Score: 14.00 Agitated Behavior Total Score: 14 Impression: This 62 year old male with s/p bifrontal TBI, DC and history of polysubstance dependence who is day 47 post admission. This patient presents with neurobehavioral sequelae consistent with frontal lobe pathology, including bradyphrenia, abulia, disconnection between thought and emotion, motor impersistence as well as demonstrating visual neglect (versus field cut). These issues are approaching chronic in nature particularly in the context of underlying neuropathology related to his polysubstance dependence. Progress Note Narrative: Day 90. The patient remains comfortable and compliant. Restoril changed to Melatonin. He remains on Topamax and Keppra. No issues of agitation/ restlessness with ABS remaining at 14 (14,14,14). I will follow. - Diagnosis (1) Major neurocognitive disorder as late effect of traumatic brain injury with behavioral disturbance Status: Acute (2) Polysubstance dependence Status: Resolved
[2018-06-01] MEDS: Sennosides Liq 8.8 MG/5 ML UDC NG/OG SCH ×2 (09:13→21:58)
[2018-06-01] MEDS: Topiramate 25 MG Tablet PO SCH ×2 (09:20→21:57)
[2018-06-01] MEDS: Senna/Docusate Sodium 8.6/50 MG Tablet PO SCH ×2 (09:20→21:57)
--- NOTE | 2018-06-01 18:46 | P.PN ---
Subjective Interval history: Patient is seen working with occupational therapy while eating his breakfast. He has difficulty but is able to feed himself. He indicates that he has very little appetite. Continues to refuse tube feeds as they are making his stomach hurt. Discussed the possibility of changing tube feeds however he says that he does not want any tube feeds. Denies any pain or shortness of breath. No nausea or vomiting, just does not have an appetite. Physical Exam Vital signs: Vital Signs 05/31/18 20:00 06/01/18 00:00 06/01/18 04:00 Temperature 98.5 F 98 F 97.8 F Pulse Rate 82 82 86 Respiratory Rate 18 18 18 Blood Pressure 115/74 115/76 112/75 Pulse Oximetry 97 95 97 06/01/18 07:00 06/01/18 08:00 06/01/18 11:38 Temperature 98.1 F Pulse Rate 83 Respiratory Rate 12 16 12 Blood Pressure 123/83 Pulse Oximetry 98 06/01/18 12:00 06/01/18 16:00 Temperature 97.8 F 97.2 F L Pulse Rate 86 90 Respiratory Rate 17 17 Blood Pressure 105/71 102/66 Pulse Oximetry 100 97 Intake & Output 05/31/18 06/01/18 06/01/18 18:59 06:59 18:59 Intake Total 240 / 240 Balance 240 / 240 Weight 52.5 kg Intake: Oral 240 / 240 Other: # Voids 1 # Incontinent Voids 2 Narrative: GENERAL: Very thin, well-developed adult male in no obvious distress. SKIN: Warm and dry. No generalized rash. HEENT: s/p right sided cranioplasty. Incision appears healing well. NECK: Trachea midline. Airway patent. CARDIOVASCULAR: Regular rate and rhythm without murmurs, gallops, or rubs. RESPIRATORY: No accessory muscle use. Breath sounds equal bilaterally. GASTROINTESTINAL: Abdomen soft, no tenderness, nondistended. Normal bowel sounds. PEG site C/D/I. MUSCULOSKELETAL: No cyanosis or edema. NEURO: Awake and alert. Moves right upper and lower extremity spontaneously. Weak bilateral director product development L>R. Able to weakly dorsi and plantar flex left foot. Fair strength RLE. Normal speech. PSYCHIATRIC: Flat affect. Calm and cooperative. - Urinary Catheter Management Indwelling Temp Sensing Catheter Cath placed during this visit: yes, but has since been removed by the nurse Reason for continuing: Not indwelling catheter Insertion date: 03/12/18 Insertion time: 05:30 Removal date: 03/25/18 Removal time: 18:00 Indwelling Urethral Catheter Cath placed during this visit: yes, but has since been removed by the nurse Reason for continuing: Decision to DC catheter Insertion date: 03/22/18 Insertion time: 17:30 Removal date: 03/25/18 Removal time: 18:00 Condom Cath placed during this visit: yes, but has since been removed by the nurse Reason for continuing: Hourly intake/output Insertion date: 05/13/18 Insertion time: 14:30 Removal date: 03/25/18 Removal time: 18:00 Results - Labs CBC & Chem 7: 05/28/18 05:29 05/28/18 05:29 - Procedures PEG 7 -25 right decompressive craniectomy 03/22/18 with placement of ICP monitor by Dr. Chacko, va'ed 03/23/18 03/22/18 Right frontotemporal parietal decompressive craniectomy and Duroplasty 03/22/18 Left frontal bur hole with placement of an intracranial pressure monitor Assessment and Plan - Assessment (1) Intracranial hemorrhage following injury Code(s): S06.309A - Unspecified focal traumatic brain injury with loss of consciousness of unspecified duration, initial encounter Status: Acute (2) Traumatic brain injury Code(s): S06.9X9A - Unspecified intracranial injury with loss of consciousness of unspecified duration, initial encounter Status: Acute (3) Fall Code(s): W19.XXXA - Unspecified fall, initial encounter Status: Chronic (4) Cocaine abuse Code(s): F14.10 - Cocaine abuse, uncomplicated Status: Chronic (5) ETOH abuse Code(s): F10.10 - Alcohol abuse, uncomplicated Status: Chronic (6) Dysphagia Code(s): R13.10 - Dysphagia, unspecified Status: Acute - Plan 62-year-old male admitted secondary to intracranial hemorrhage 06/01: Poor appetite, encouraged more p.o. intake since he is refusing to feed. Continue current medical management. 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 SAH bilat frontal lobes, right parietal, temporal. Right frontotemporal SDH status post emergency craniectomy for decompression for worsening midline shift right to left 2.1 cm s/p Fall, ?syncope Daily alcohol use/Cocaine abuse - s/p Right frontotemporal parietal decompressive craniectomy and Duroplasty by Dr. Chacko. - s/p right cranioplasty 05/13/18, incision healing well. Jose removed. - Continue on Keppra - no seizure activity reported - Continue with PT/OT - PT recommends rehab at discharge - Seizure precautions Palliative care following, appreciate assistance. Per note, patient has improved tremendously. Feels he has capacity to make medical decisions with support of family. Recommended psych consult to assess capacity. Psychiatry consulted, appreciate assistance. - Dr. Narvaez following, appreciate assistance Headache repeat CT head 04/[address] head 04/26 shows stable exam with large right craniectomy defect and 5 mm midline shift, no hemorrhage CTA head negative -Neurology following, appreciate assistance. Started on Topamax 50mg BID for likely vascular component. Topamax increased 05/18 to 75mg BID. -pain control as needed. Dysphagia Protein calorie malnutrition s/p PEG tube placement 03/30/18 - ST re-evaluated and patient given puree diet with nectar thickened liquids. - Calorie count completed, inadequate intake. 04/20 TF resumed - Jevity 1.5 at 75 mls per hour 12 hours at night 7pm to 7am. - Machine Pecan Picker following, recommends continued nighttime feeding and supplement. Continue to monitor and follow dietary recs. - Needs assistance with all meals Acute respiratory failure secondary to failure to protect airway-resolved extubated MRSA pneumonia, status post treatment with IV vancomycin and Rocephin Tobacco abuse Extubated 03/25/2018 - Continue as needed duo nebs - continue to monitor respiratory status - Supplemental oxygen as needed Pseudomonas UTI - completed abx treatment DVT prophylaxis SCDs No chemoprophylaxis anticoagulation due to recent intracranial bleed (2) Traumatic brain injury Qualifiers: Encounter type: subsequent encounter
[2018-06-01] MEDS: Melatonin 5 MG Tablet PO PRN (21:58)
[2018-06-02] MEDS: Carboxymethylcellulose 0.5% Opth Drops 15 ML Bottle EACH EYE SCH ×3 (05:28→23:07)
[2018-06-02] MEDS: Oral Hygiene Kit OROPHARYNG SCH ×3 (05:28→15:12)
[2018-06-02] MEDS: Sennosides Liq 8.8 MG/5 ML UDC NG/OG SCH ×2 (08:56→23:06)
[2018-06-02] MEDS: Senna/Docusate Sodium 8.6/50 MG Tablet PO SCH ×2 (08:56→23:07)
[2018-06-02] MEDS: Topiramate 25 MG Tablet PO SCH ×2 (08:56→23:06)
--- NOTE | 2018-06-02 12:11 | P.PN ---
Subjective Interval history: Patient is seen lying in bed. Primarily nods or shakes head in response to my questions. Does not indicate any pain. Nods yes when asked if he still is lacking appetite. Does not desire any specific food. Discussed HIV testing with patient. He tells me he has never been tested. Does give verbal consent to testing today. Pretesting education completed. Physical Exam Vital signs: Vital Signs 06/01/18 12:00 06/01/18 16:00 06/01/18 20:00 Temperature 97.8 F 97.2 F L 97.6 F Pulse Rate 86 90 90 Respiratory Rate 17 17 16 Blood Pressure 105/71 102/66 119/75 Pulse Oximetry 100 97 98 06/02/18 00:00 06/02/18 03:07 06/02/18 04:00 Temperature 97.9 F 97.9 F Pulse Rate 91 H 82 Respiratory Rate 16 18 16 Blood Pressure 112/76 130/82 Pulse Oximetry 95 98 06/02/18 07:00 06/02/18 08:00 Temperature 98.2 F Pulse Rate 80 Respiratory Rate 12 17 Blood Pressure 132/83 Pulse Oximetry 98 Intake & Output 06/01/18 06/02/18 06/02/18 18:59 06:59 18:59 Intake Total 240 / 240 Balance 240 / 240 Weight 52.3 kg Intake: Oral 240 / 240 Other: # Incontinent Voids 2 # Incontinent Bowel Movements 1 Narrative: GENERAL: Very thin, well-developed adult male in no obvious distress. SKIN: Warm and dry. No generalized rash. HEENT: s/p right sided cranioplasty. Incision appears healing well. NECK: Trachea midline. Airway patent. CARDIOVASCULAR: Regular rate and rhythm without murmurs, gallops, or rubs. RESPIRATORY: No accessory muscle use. Breath sounds equal bilaterally. GASTROINTESTINAL: Abdomen soft, no tenderness, nondistended. Normal bowel sounds. PEG site C/D/I. MUSCULOSKELETAL: No cyanosis or edema. NEURO: Awake and alert. Moves right upper and lower extremity spontaneously. Weak bilateral molder wax ball L>R. Able to weakly dorsi and plantar flex left foot. Fair strength RLE. Normal speech. PSYCHIATRIC: Flat affect. Calm and cooperative. - Urinary Catheter Management Indwelling Temp Sensing Catheter Cath placed during this visit: yes, but has since been removed by the nurse Reason for continuing: Not indwelling catheter Insertion date: 03/12/18 Insertion time: 05:30 Removal date: 03/25/18 Removal time: 18:00 Indwelling Urethral Catheter Cath placed during this visit: yes, but has since been removed by the nurse Reason for continuing: Decision to DC catheter Insertion date: 03/22/18 Insertion time: 17:30 Removal date: 03/25/18 Removal time: 18:00 Condom Cath placed during this visit: yes, but has since been removed by the nurse Reason for continuing: Hourly intake/output Insertion date: 05/13/18 Insertion time: 14:30 Removal date: 03/25/18 Removal time: 18:00 Results - Labs CBC & Chem 7: 05/28/18 05:29 05/28/18 05:29 - Procedures PEG 7 - right decompressive craniectomy 03/22/18 with placement of ICP monitor by Dr. Chacko, [facility] 03/23/18 03/22/18 Right frontotemporal parietal decompressive craniectomy and Duroplasty 03/22/18 Left frontal bur hole with placement of an intracranial pressure monitor Assessment and Plan - Assessment (1) Intracranial hemorrhage following injury Code(s): S06.309A - Unspecified focal traumatic brain injury with loss of consciousness of unspecified duration, initial encounter Status: Acute (2) Traumatic brain injury Code(s): S06.9X9A - Unspecified intracranial injury with loss of consciousness of unspecified duration, initial encounter Status: Acute (3) Fall Code(s): W19.XXXA - Unspecified fall, initial encounter Status: Chronic (4) Cocaine abuse Code(s): F14.10 - Cocaine abuse, uncomplicated Status: Chronic (5) ETOH abuse Code(s): F10.10 - Alcohol abuse, uncomplicated Status: Chronic (6) Dysphagia Code(s): R13.10 - Dysphagia, unspecified Status: Acute - Plan 62-year-old male admitted secondary to intracranial hemorrhage 06/01: Flat affect. Continues poor p.o. intake; refusing to feed. Recent neutropenia noted on labs-patient consents to HIV testing. Denies any history. Continue current medical management. 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 SAH bilat frontal lobes, right parietal, temporal. Right frontotemporal SDH status post emergency craniectomy for decompression for worsening midline shift right to left 2.1 cm s/p Fall, ?syncope Daily alcohol use/Cocaine abuse - s/p Right frontotemporal parietal decompressive craniectomy and Duroplasty by Dr. Chacko. - s/p right cranioplasty 05/13/18, incision healing well. Jose removed. - Continue on Keppra - no seizure activity reported - Continue with PT/OT - PT recommends rehab at discharge - Seizure precautions Palliative care following, appreciate assistance. Per note, patient has improved tremendously. Feels he has capacity to make medical decisions with support of family. Recommended psych consult to assess capacity. Psychiatry consulted, appreciate assistance. - Dr. Narvaez following, appreciate assistance Headache repeat CT head 04/[address] head 04/26 shows stable exam with large right craniectomy defect and 5 mm midline shift, no hemorrhage CTA head negative -Neurology following, appreciate assistance. Started on Topamax 50mg BID for likely vascular component. Topamax increased 05/18 to 75mg BID. -pain control as needed. Dysphagia Protein calorie malnutrition s/p PEG tube placement 03/30/18 - ST re-evaluated and patient given puree diet with nectar thickened liquids. - Calorie count completed, inadequate intake. 04/20 TF resumed - Jevity 1.5 at 75 mls per hour 12 hours at night 7pm to 7am. - Earth Science Technical Officer following, recommends continued nighttime feeding and supplement. Continue to monitor and follow dietary recs. - Needs assistance with all meals Acute respiratory failure secondary to failure to protect airway-resolved extubated MRSA pneumonia, status post treatment with IV vancomycin and Rocephin Tobacco abuse Extubated 03/25/2018 - Continue as needed duo nebs - continue to monitor respiratory status - Supplemental oxygen as needed Pseudomonas UTI - completed abx treatment DVT prophylaxis SCDs No chemoprophylaxis anticoagulation due to recent intracranial bleed (2) Traumatic brain injury Qualifiers: Encounter type: subsequent encounter
[2018-06-02 13:26] LABS: Hematocrit 38.5 % (39.0-51.0); Hemoglobin 12.5 gm/dL (13.0-17.0); Lymph # (Auto) 1.2 th/mm3 (1.0-4.8); Lymph % (Auto) 43.2 % (9.0-44.0); Mean Corpuscular HGB Conc 32.5 % (32.0-36.0); Mean Corpuscular Hemoglobin 29.6 pg (27.0-34.0); Mean Corpuscular Volume 90.9 fL (80.0-100.0); Mean Platelet Volume 6.9 fL (7.0-11.0); Mono # (Auto) 0.3 th/mm3 (0.0-0.9); Mono % (Auto) 9.6 % (0.0-8.0); Neut # (Auto) 1.3 th/mm3 (1.8-7.7); Neut % (Auto) 45.2 % (16.0-70.0); Platelet Count 344 th/mm3 (150-450); Red Blood Count 4.23 mil/mm3 (4.50-5.90); White Blood Count 2.8 th/mm3 (4.0-11.0)
[2018-06-02 13:45] LABS: Alanine Aminotransferase 11 U/L (12-78); Albumin 3.1 g/dL (3.4-5.0); Anion Gap 7 meq/L (5-15); Aspartate Aminotransferase 15 U/L (15-37); Blood Urea Nitrogen 18 mg/dL (7-18); Carbon Dioxide 29.2 meq/L (21.0-32.0); Chloride 107 meq/L (98-107); Glomerular Filtration Rate Greater Than 89 mL/min (>89); Glucose,Random 99 mg/dL (74-106); Potassium 3.6 meq/L (3.5-5.1); Sodium 143 meq/L (136-145)
[2018-06-02 13:48] LABS: Alkaline Phosphatase 68 U/L (45-117); Total Protein 7.9 g/dL (6.4-8.2)
[2018-06-02] MEDS: levETIRAcetam 500 MG Tablet PO SCH (23:06)
[2018-06-02] MEDS: Melatonin 5 MG Tablet PO PRN (23:07)
[2018-06-03] MEDS: Oral Hygiene Kit OROPHARYNG SCH ×3 (01:47→11:02)
[2018-06-03] MEDS: Carboxymethylcellulose 0.5% Opth Drops 15 ML Bottle EACH EYE SCH (05:03)
[2018-06-03] MEDS: Senna/Docusate Sodium 8.6/50 MG Tablet PO SCH ×2 (08:49→21:15)
[2018-06-03] MEDS: Sennosides Liq 8.8 MG/5 ML UDC NG/OG SCH (08:49)
[2018-06-03] MEDS: Topiramate 25 MG Tablet PO SCH ×2 (08:49→21:15)
[2018-06-03] MEDS: levETIRAcetam 500 MG Tablet PO SCH ×2 (08:49→21:15)
[2018-06-03 10:19] LABS: Prothrombin Time 10.5 sec (9.8-11.6)
[2018-06-03 10:55] LABS: Hepatitits B Surface Antigen Nonreactive (Nonreactive)
[2018-06-03 10:59] LABS: Vitamin B12 606 pg/mL (193-986)
[2018-06-03] MEDS ORDERED: Acetaminophen 325 MG Tablet PO PRN (11:10)
[2018-06-03] MEDS ORDERED: Naloxone Inj 0.4 MG/ML Vial IV.PUSH PRN (11:10)
[2018-06-03 11:48] LABS: Hepatitis A IgM Antibody Nonreactive (Nonreactive)
--- NOTE | 2018-06-03 11:51 | P.PN ---
Subjective Interval history: Patient is seen lying in bed. Continues to have very flat affect affect and only communicates if directly questioned. He is having some pain which he indicates is just generalized. Continues to have very poor appetite and refuses to feed supplementation. Physical Exam Vital signs: Vital Signs 06/02/18 12:00 06/02/18 16:00 06/02/18 20:00 Temperature 97.5 F L 97.5 F L 97.1 F L Pulse Rate 87 86 90 Respiratory Rate 17 17 20 Blood Pressure 111/71 111/74 103/60 Pulse Oximetry 96 99 98 06/03/18 00:00 06/03/18 04:00 06/03/18 07:00 Temperature 98.0 F 97.9 F Pulse Rate 85 75 Respiratory Rate 20 20 12 Blood Pressure 105/66 107/74 Pulse Oximetry 96 98 06/03/18 08:00 06/03/18 11:39 Temperature 97.9 F Pulse Rate 82 Respiratory Rate 18 12 Blood Pressure 127/73 Pulse Oximetry 96 Intake & Output 06/02/18 06/03/18 06/03/18 18:59 06:59 18:59 Intake Total 360 / 360 Balance 360 / 360 Intake: Oral 360 / 360 Other: # Voids 3 2 Date of Last Bowel Movement 06/02/18 06/02/18 # Bowel Movements 2 Narrative: GENERAL: Very thin, well-developed adult male in no obvious distress. SKIN: Warm and dry. No generalized rash. HEENT: s/p right sided cranioplasty. Incision appears healing well. NECK: Trachea midline. Airway patent. CARDIOVASCULAR: Regular rate and rhythm without murmurs, gallops, or rubs. RESPIRATORY: No accessory muscle use. Breath sounds equal bilaterally. GASTROINTESTINAL: Abdomen soft, no tenderness, nondistended. Normal bowel sounds. PEG site C/D/I. MUSCULOSKELETAL: No cyanosis or edema. NEURO: Awake and alert. Moves right upper and lower extremity spontaneously. Weak bilateral washing machine operator L>R. Able to weakly dorsi and plantar flex left foot. Fair strength RLE. Normal speech. PSYCHIATRIC: Flat affect. Calm and cooperative. - Urinary Catheter Management Indwelling Temp Sensing Catheter Cath placed during this visit: yes, but has since been removed by the nurse Reason for continuing: Not indwelling catheter Insertion date: 03/12/18 Insertion time: 05:30 Removal date: 03/25/18 Removal time: 18:00 Indwelling Urethral Catheter Cath placed during this visit: yes, but has since been removed by the nurse Reason for continuing: Decision to DC catheter Insertion date: 03/22/18 Insertion time: 17:30 Removal date: 03/25/18 Removal time: 18:00 Condom Cath placed during this visit: yes, but has since been removed by the nurse Reason for continuing: Hourly intake/output Insertion date: 05/13/18 Insertion time: 14:30 Removal date: 03/25/18 Removal time: 18:00 Results - Labs CBC & Chem 7: 06/02/18 13:04 06/02/18 13:04 Laboratory Results - last 24 hr 06/02/18 06/02/18 06/02/18 13:04 13:04 13:04 WBC 2.8 L RBC 4.23 L Hgb 12.5 L Hct 38.5 L MCV 90.9 MCH 29.6 MCHC 32.5 RDW 14.0 Plt Count 344 MPV 6.9 L Neut % (Auto) 45.2 Lymph % (Auto) 43.2 [place] % (Auto) 9.6 H Eos % (Auto) 1.0 Baso % (Auto) 1.0 Neut # (Auto) 1.3 L Lymph # (Auto) 1.2 [place] # (Auto) 0.3 Eos # (Auto) 0.0 Baso # (Auto) 0.0 WBC Differential . Differential Comment Auto diff final ESR PT INR Sodium 143 Potassium 3.6 Chloride 107 Carbon Dioxide 29.2 Anion Gap 7 BUN 18 Creatinine 0.71 Estimated GFR Greater than 89 Random Glucose 99 Calcium 9.0 Total Bilirubin 0.2 AST 15 ALT 11 L Alkaline Phosphatase 68 C-Reactive Protein Total Protein 7.9 Albumin 3.1 L Vitamin B12 Folate Hep Bs Antigen HIV 1&2 Ab/P24 Ag 4thGn Nonreactive 06/03/18 06/03/18 06/03/18 09:21 09:21 09:21 WBC RBC Hgb Hct MCV MCH MCHC RDW Plt Count MPV Neut % (Auto) Lymph % (Auto) [place] % (Auto) Eos % (Auto) Baso % (Auto) Neut # (Auto) Lymph # (Auto) [place] # (Auto) Eos # (Auto) Baso # (Auto) WBC Differential Differential Comment ESR 47 H PT 10.5 INR 1.0 Sodium Potassium Chloride Carbon Dioxide Anion Gap BUN Creatinine Estimated GFR Random Glucose Calcium Total Bilirubin AST ALT Alkaline Phosphatase C-Reactive Protein Total Protein Albumin Vitamin B12 Folate Hep Bs Antigen Nonreactive HIV 1&2 Ab/P24 Ag 4thGn 06/03/18 09:24 WBC RBC Hgb Hct MCV MCH MCHC RDW Plt Count MPV Neut % (Auto) Lymph % (Auto) [place] % (Auto) Eos % (Auto) Baso % (Auto) Neut # (Auto) Lymph # (Auto) [place] # (Auto) Eos # (Auto) Baso # (Auto) WBC Differential Differential Comment ESR PT INR Sodium Potassium Chloride Carbon Dioxide Anion Gap BUN Creatinine Estimated GFR Random Glucose Calcium Total Bilirubin AST ALT Alkaline Phosphatase C-Reactive Protein Less than 0.29 Total Protein Albumin Vitamin B12 606 Folate Greater than 20.0 H Hep Bs Antigen HIV 1&2 Ab/P24 Ag 4thGn - Procedures PEG 7 - right decompressive craniectomy 03/22/18 with placement of ICP monitor by Dr. Chacko, in'ed 03/23/18 03/22/18 Right frontotemporal parietal decompressive craniectomy and Duroplasty 03/22/18 Left frontal bur hole with placement of an intracranial pressure monitor Assessment and Plan - Assessment (1) Intracranial hemorrhage following injury Code(s): S06.309A - Unspecified focal traumatic brain injury with loss of consciousness of unspecified duration, initial encounter Status: Acute (2) Traumatic brain injury Code(s): S06.9X9A - Unspecified intracranial injury with loss of consciousness of unspecified duration, initial encounter Status: Acute (3) Fall Code(s): W19.XXXA - Unspecified fall, initial encounter Status: Chronic (4) Cocaine abuse Code(s): F14.10 - Cocaine abuse, uncomplicated Status: Chronic (5) ETOH abuse Code(s): F10.10 - Alcohol abuse, uncomplicated Status: Chronic (6) Dysphagia Code(s): R13.10 - Dysphagia, unspecified Status: Acute - Plan 62-year-old male admitted secondary to intracranial hemorrhage 06/03: Recent neutropenia noted on labs -currently considering medications as cause; Keppra in particular. Labs ordered to rule out other cause. Continue current medical management. 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 SAH bilat frontal lobes, right parietal, temporal. Right frontotemporal SDH status post emergency craniectomy for decompression for worsening midline shift right to left 2.1 cm s/p Fall, ?syncope Daily alcohol use/Cocaine abuse - s/p Right frontotemporal parietal decompressive craniectomy and Duroplasty by Dr. Chacko. - s/p right cranioplasty 05/13/18, incision healing well. Dinosaur removed. - Continue on Keppra - no seizure activity reported - Continue with PT/OT - PT recommends rehab at discharge - Seizure precautions Palliative care following, appreciate assistance. Per note, patient has improved tremendously. Feels he has capacity to make medical decisions with support of family. Recommended psych consult to assess capacity. Psychiatry consulted, appreciate assistance. - Dr. Narvaez following, appreciate assistance Neutropenia -Possibly related to Keppra (?). -Labs ordered to evaluate. HIV negative. Pending hepatitis panel. B12 and folate ok. CRP normal. ESR elevated. UA ordered. -Afebrile -Consider heme consult Headache repeat CT head 04/[address] head 04/26 shows stable exam with large right craniectomy defect and 5 mm midline shift, no hemorrhage CTA head negative -Neurology following, appreciate assistance. Started on Topamax 50mg BID for likely vascular component. Topamax increased 05/18 to 75mg BID. -pain control as needed. Dysphagia Protein calorie malnutrition s/p PEG tube placement 03/30/18 - ST re-evaluated and patient given puree diet with nectar thickened liquids. - Calorie count completed, inadequate intake. 04/20 TF resumed - Jevity 1.5 at 75 mls per hour 12 hours at night 7pm to 7am. Patient now refusing tube feed. - Yarn Inspector following, recommends continued nighttime feeding and supplement. Continue to monitor and follow dietary recs. - Needs assistance with all meals Acute respiratory failure secondary to failure to protect airway-resolved extubated MRSA pneumonia, status post treatment with IV vancomycin and Rocephin Tobacco abuse Extubated 03/25/2018 - Continue as needed duo nebs - continue to monitor respiratory status - Supplemental oxygen as needed Pseudomonas UTI - completed abx treatment DVT prophylaxis SCDs No chemoprophylaxis anticoagulation due to recent intracranial bleed (2) Traumatic brain injury Qualifiers: Encounter type: subsequent encounter
[2018-06-03 12:54] LABS: Amorphous Sediment,Urine Few /hpf; Bacteria,Urine Moderate /hpf; Bilirubin,Urine Negative (Negative); Clarity,Urine Cloudy (Clear); Color,Urine Amber (Yellw/Straw); Glucose,Urine (UA) Negative (Negative); Leukocyte Esterase,Urine Trace (Negative); Mucus,Urine Few /lpf (Occasional); Nitrite,Urine Negative (Negative); Specific Gravity,Urine 1.019 (1.002-1.035)
[2018-06-03] MEDS: Melatonin 5 MG Tablet PO PRN (21:15)
[2018-06-04] MEDS: Senna/Docusate Sodium 8.6/50 MG Tablet PO SCH ×2 (08:12→23:03)
[2018-06-04] MEDS: levETIRAcetam 500 MG Tablet PO SCH (08:12)
[2018-06-04] MEDS: Topiramate 25 MG Tablet PO SCH ×2 (08:12→23:02)
--- NOTE | 2018-06-04 11:44 | P.PN ---
Subjective Interval history: Patient is seen lying in bed. Continues to be minimally interactive but will answer questions. He tells me that he does have a history of hepatitis C and believes it was previously treated. Denies any significant pain just has no interest in eating or doing anything. Physical Exam Vital signs: Vital Signs 06/03/18 12:00 06/03/18 15:59 06/03/18 16:00 Temperature 98.8 F 97.9 F Pulse Rate 91 H 92 H Respiratory Rate 18 18 Blood Pressure 113/72 120/72 Pulse Oximetry 97 97 06/03/18 20:00 06/04/18 00:00 06/04/18 04:00 Temperature 98.2 F 97.8 F 97.6 F Pulse Rate 89 77 76 Respiratory Rate 17 18 18 Blood Pressure 122/71 109/72 126/71 Pulse Oximetry 97 99 99 06/04/18 07:00 06/04/18 07:42 Temperature 98.1 F Pulse Rate 84 Respiratory Rate 12 20 Blood Pressure 146/76 H Pulse Oximetry 100 Intake & Output 06/03/18 06/04/18 06/04/18 18:59 06:59 18:59 Intake Total 240 / 240 540 / 540 Balance 240 / 240 540 / 540 Intake: Oral 240 / 240 540 / 540 Other: # Voids 2 Date of Last Bowel Movement 06/02/18 06/02/18 Narrative: GENERAL: Very thin, well-developed adult male in no obvious distress. SKIN: Warm and dry. No generalized rash. HEENT: s/p right sided cranioplasty. Incision appears healing well. NECK: Trachea midline. Airway patent. CARDIOVASCULAR: Regular rate and rhythm without murmurs, gallops, or rubs. RESPIRATORY: No accessory muscle use. Breath sounds equal bilaterally. GASTROINTESTINAL: Abdomen soft, no tenderness, nondistended. Normal bowel sounds. PEG site C/D/I. MUSCULOSKELETAL: No cyanosis or edema. NEURO: Awake and alert. Moves right upper and lower extremity spontaneously. Weak bilateral radio control crane operator L>R. Able to weakly dorsi and plantar flex left foot. Fair strength RLE. Normal speech. PSYCHIATRIC: Flat affect. Calm and cooperative. - Urinary Catheter Management Indwelling Temp Sensing Catheter Cath placed during this visit: yes, but has since been removed by the nurse Reason for continuing: Not indwelling catheter Insertion date: 03/12/18 Insertion time: 05:30 Removal date: 03/25/18 Removal time: 18:00 Indwelling Urethral Catheter Cath placed during this visit: yes, but has since been removed by the nurse Reason for continuing: Decision to DC catheter Insertion date: 03/22/18 Insertion time: 17:30 Removal date: 03/25/18 Removal time: 18:00 Condom Cath placed during this visit: yes, but has since been removed by the nurse Reason for continuing: Hourly intake/output Insertion date: 05/13/18 Insertion time: 14:30 Removal date: 03/25/18 Removal time: 18:00 Results - Labs CBC & Chem 7: 06/02/18 13:04 06/02/18 13:04 Laboratory Results - last 24 hr 06/03/18 06/03/18 09:21 12:28 Urine Color Jeannine Urine Clarity Cloudy H Urine pH 6.0 Ur Specific [place] 1.019 Urine Protein Negative Urine Glucose (UA) Negative Urine Ketones Negative Urine Occult Blood Negative Urine Nitrate Negative Urine Bilirubin Negative Urine Urobilinogen Less than 2 Ur Leukocyte Esterase Trace H Urine RBC 4 H Urine WBC Less than 1 Amorphous Sediment Few H Urine Bacteria Moderate H Urine Mucus Few H Micro UA Comment Culture indicated Ur Microscopic Review Not Reportable Urine Culture Comments Culture indicated Hepatitis A IgM Ab Nonreactive Hep B Core IgM Ab Nonreactive Hep C IgG Ab Reactive H - Procedures PEG 7 -25 right decompressive craniectomy 03/22/18 with placement of ICP monitor by Dr. Chacko, il'ed 03/23/18 03/22/18 Right frontotemporal parietal decompressive craniectomy and Duroplasty 03/22/18 Left frontal bur hole with placement of an intracranial pressure monitor Assessment and Plan - Assessment (1) Intracranial hemorrhage following injury Code(s): S06.309A - Unspecified focal traumatic brain injury with loss of consciousness of unspecified duration, initial encounter Status: Acute (2) Traumatic brain injury Code(s): S06.9X9A - Unspecified intracranial injury with loss of consciousness of unspecified duration, initial encounter Status: Acute (3) Fall Code(s): W19.XXXA - Unspecified fall, initial encounter Status: Chronic (4) Cocaine abuse Code(s): F14.10 - Cocaine abuse, uncomplicated Status: Chronic (5) ETOH abuse Code(s): F10.10 - Alcohol abuse, uncomplicated Status: Chronic (6) Dysphagia Code(s): R13.10 - Dysphagia, unspecified Status: Acute - Plan 62-year-old male admitted secondary to intracranial hemorrhage 06/04: Recent neutropenia noted on labs -currently considering medications as cause; Keppra in particular. Labs ordered to rule out other cause. Continue current medical management. 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 SAH bilat frontal lobes, right parietal, temporal. Right frontotemporal SDH status post emergency craniectomy for decompression for worsening midline shift right to left 2.1 cm s/p Fall, ?syncope Daily alcohol use/Cocaine abuse - s/p Right frontotemporal parietal decompressive craniectomy and Duroplasty by Dr. Chacko. - s/p right cranioplasty 05/13/18, incision healing well. [place] removed. - Continue on Keppra - no seizure activity reported - Continue with PT/OT - PT recommends rehab at discharge - Seizure precautions Palliative care following, appreciate assistance. Per note, patient has improved tremendously. Feels he has capacity to make medical decisions with support of family. Recommended psych consult to assess capacity. Psychiatry consulted, appreciate assistance. - Dr. Narvaez following, appreciate assistance Neutropenia -Possibly related to Keppra (?). Neurology consult ordered. -Labs ordered to evaluate. HIV negative. Hep C positive-quant pending. B12 and folate ok. CRP normal. ESR elevated. UA pending culture. -Afebrile -Consider heme consult Headache repeat CT head 04/[address] head 04/26 shows stable exam with large right craniectomy defect and 5 mm midline shift, no hemorrhage CTA head negative -Neurology following, appreciate assistance. Started on Topamax 50mg BID for likely vascular component. Topamax increased 05/18 to 75mg BID. -pain control as needed. Dysphagia Protein calorie malnutrition s/p PEG tube placement 03/30/18 - ST re-evaluated and patient given puree diet with nectar thickened liquids. - Calorie count completed, inadequate intake. 04/20 TF resumed - Jevity 1.5 at 75 mls per hour 12 hours at night 7pm to 7am. Patient now refusing tube feed. - Silk Worker following, recommends continued nighttime feeding and supplement. Continue to monitor and follow dietary recs. - Needs assistance with all meals Acute respiratory failure secondary to failure to protect airway-resolved extubated MRSA pneumonia, status post treatment with IV vancomycin and Rocephin Tobacco abuse Extubated 03/25/2018 - Continue as needed duo nebs - continue to monitor respiratory status - Supplemental oxygen as needed Pseudomonas UTI - completed abx treatment DVT prophylaxis SCDs No chemoprophylaxis anticoagulation due to recent intracranial bleed (2) Traumatic brain injury Qualifiers: Encounter type: subsequent encounter
--- NOTE | 2018-06-04 13:15 | P.PNNEU ---
Subjective Subjective Comments: still w moderate left dee Active Medications: Active Medications Acetaminophen (Tylenol) 650 mg PO Q6H PRN PRN Reason: PAIN SCALE 1 TO 2 Hydrocodone Bitart/Acetaminophen ([place] 10/325) 1 tab PO Q4H PRN PRN Reason: PAIN SCALE 6 TO 10 Last Admin: 06/03/18 21:15 Dose: 1 tab Hydrocodone Bitart/Acetaminophen ([place] 5/325) 1 tab PO Q4H PRN PRN Reason: PAIN SCALE 3 TO 5 Al Hydrox/Mg Hydrox/Simethicone (Mag-Al Plus Susp Liq) 30 ml PO Q6H PRN PRN Reason: DYSPEPSIA Al Hydroxide/Mg Hydroxide (Milk Of Magnesia Liq) 30 ml PO Q12H PRN PRN Reason: Mild Constipation Albuterol (Albuterol Neb (Prn)) 2.5 mg NEB Q2HR NEB PRN PRN Reason: WHEEZING Last Admin: 03/17/18 03:27 Dose: 2.5 mg Bisacodyl (Dulcolax Supp) 10 mg RECTAL DAILY PRN PRN Reason: SEVERE CONSITIPATION Lactulose (Lactulose Liq) 30 ml PO DAILY PRN PRN Reason: SEVERE CONSITIPATION Levetiracetam (Keppra) 500 mg PO BID [facility] Last Admin: 06/04/18 08:12 Dose: 500 mg Melatonin (Melatonin) 5 mg PO HS PRN PRN Reason: INSOMNIA Last Admin: 06/03/18 21:15 Dose: 5 mg Menthol ([place]) 1 lozenge BUCCAL UNSCH PRN PRN Reason: SORE THROAT Last Admin: 04/17/18 22:30 Dose: 1 lozenge Morphine Sulfate (Morphine Inj) 2 mg IV.PUSH Q2H PRN PRN Reason: Pain Scale 1 to 6 Last Admin: 05/13/18 23:17 Dose: 2 mg Multivitamins (Theragran) 1 tab PO DAILY [facility] Last Admin: 06/04/18 08:12 Dose: 1 tab Naloxone HCl (Narcan Inj) 0.4 mg IV.PUSH UNSCH PRN PRN Reason: SEE LABEL COMMENTS Ondansetron HCl (Zofran Inj) 4 mg IV.PUSH Q6H PRN PRN Reason: NAUSEA OR VOMITING Senna/Docusate Sodium (Yuliya-Colace) 1 tab PO BID [facility] Last Admin: 06/04/18 08:12 Dose: 1 tab Sodium Chloride (Ns Flush) 2 ml IV.FLUSH UNSCH PRN PRN Reason: FLUSH AFTER USING IV ACCESS Sodium Chloride (Ns Flush) 2 ml IV.FLUSH BID [facility] Last Admin: 06/04/18 08:12 Dose: 2 ml Topiramate (Topamax) 75 mg PO BID [facility] Last Admin: 06/04/18 08:12 Dose: 75 mg Allergies/Adverse Reactions: Allergies Allergy/AdvReac Type Severity Reaction Status Date / Time No Known Allergies Allergy Unknown Uncoded 03/03/18 20:43 Physical Exam Vital signs: Vital Signs 06/03/18 15:59 06/03/18 16:00 06/03/18 20:00 Temperature 97.9 F 98.2 F Pulse Rate 92 H 89 Respiratory Rate 12 18 17 Blood Pressure 120/72 122/71 Pulse Oximetry 97 97 06/04/18 00:00 06/04/18 04:00 06/04/18 07:00 Temperature 97.8 F 97.6 F Pulse Rate 77 76 Respiratory Rate 18 18 12 Blood Pressure 109/72 126/71 Pulse Oximetry 99 99 06/04/18 07:42 06/04/18 12:00 Temperature 98.1 F 98.0 F Pulse Rate 84 85 Respiratory Rate 20 18 Blood Pressure 146/76 H 109/71 Pulse Oximetry 100 98 Intake & Output 06/03/18 06/04/18 06/04/18 18:59 06:59 18:59 Intake Total 240 / 240 540 / 540 600 / 600 Balance 240 / 240 540 / 540 600 / 600 Intake: Oral 240 / 240 540 / 540 600 / 600 Other: # Voids 2 # Incontinent Voids 2 Date of Last Bowel Movement 06/02/18 06/02/18 Narrative: vff 5/5 bue and ble awake alert - Urinary Catheter Management Indwelling Temp Sensing Catheter Cath placed during this visit: yes, but has since been removed by the nurse Reason for continuing: Not indwelling catheter Insertion date: 03/12/18 Insertion time: 05:30 Removal date: 03/25/18 Removal time: 18:00 Indwelling Urethral Catheter Cath placed during this visit: yes, but has since been removed by the nurse Reason for continuing: Decision to DC catheter Insertion date: 03/22/18 Insertion time: 17:30 Removal date: 03/25/18 Removal time: 18:00 Condom Cath placed during this visit: yes, but has since been removed by the nurse Reason for continuing: Hourly intake/output Insertion date: 05/13/18 Insertion time: 14:30 Removal date: 03/25/18 Removal time: 18:00 Objective Laboratory Results - last 24 hr 06/03/18 12:28 Urine Color Jeannine Urine Clarity Cloudy H Urine pH 6.0 Ur Specific [place] 1.019 Urine Protein Negative Urine Glucose (UA) Negative Urine Ketones Negative Urine Occult Blood Negative Urine Nitrate Negative Urine Bilirubin Negative Urine Urobilinogen Less than 2 Ur Leukocyte Esterase Trace H Urine RBC 4 H Urine WBC Less than 1 Amorphous Sediment Few H Urine Bacteria Moderate H Urine Mucus Few H Micro UA Comment Culture indicated Urine Culture Comments Culture indicated Microbiology 06/03/18 12:28 Urine Culture - Preliminary Clean Catch Urine Pseudomonas species Review/Management - Diagnosis (1) Intracranial hemorrhage following injury Code(s): S06.309A - Unspecified focal traumatic brain injury with loss of consciousness of unspecified duration, initial encounter Status: Acute Current Visit: Yes - Review/Management Plan: continue topamax for headache 06/04/18 on top 75 bid for dee still with some consider 10 decadron see if goes awway ok to taper off keppra if u feel this causing low wbc i ordered a rapid taper as top would hold and should hold any sz and no hx sz with nl eeg
[2018-06-04] MEDS: Melatonin 5 MG Tablet PO PRN (23:02)
[2018-06-05] MEDS: levETIRAcetam 500 MG Tablet PO SCH (09:43)
[2018-06-05] MEDS: Senna/Docusate Sodium 8.6/50 MG Tablet PO SCH ×2 (09:43→20:02)
[2018-06-05] MEDS: Topiramate 25 MG Tablet PO SCH ×2 (09:43→20:02)
--- NOTE | 2018-06-05 12:22 | P.PN ---
Subjective Interval history: Patient is seen lying quietly in bed. He is only minimally responsive to my questions; simply is not interested. No new concerns or complaints. Nursing reports no adverse events Physical Exam Vital signs: Vital Signs 06/04/18 15:47 06/04/18 16:00 06/04/18 20:00 Temperature 97.7 F 98.5 F Pulse Rate 79 84 Respiratory Rate 12 18 19 Blood Pressure 119/75 107/74 Pulse Oximetry 98 98 06/05/18 00:00 06/05/18 04:00 06/05/18 07:00 Temperature 97.7 F 98.0 F Pulse Rate 76 79 Respiratory Rate 18 18 12 Blood Pressure 110/75 111/74 Pulse Oximetry 97 96 06/05/18 07:58 06/05/18 11:18 06/05/18 11:38 Temperature 98 F 98 F Pulse Rate 77 87 Respiratory Rate 18 12 18 Blood Pressure 117/74 117/75 Pulse Oximetry 98 98 Intake & Output 06/04/18 06/05/18 06/05/18 18:59 06:59 18:59 Intake Total 840 / 840 600 / 600 240 / 240 Balance 840 / 840 600 / 600 240 / 240 Weight 59.7 kg Intake: Oral 840 / 840 600 / 600 240 / 240 Other: # Incontinent Voids 2 2 Date of Last Bowel Movement 06/02/18 Narrative: Narrative: GENERAL: Very thin, well-developed adult male in no obvious distress. SKIN: Warm and dry. No generalized rash. HEENT: s/p right sided cranioplasty. Incision appears healing well. CARDIOVASCULAR: Regular rate and rhythm without murmurs, gallops, or rubs. RESPIRATORY: No accessory muscle use. Breath sounds equal bilaterally. GASTROINTESTINAL: Abdomen soft, no tenderness, nondistended. Normal bowel sounds. PEG site C/D/I. MUSCULOSKELETAL: No cyanosis or edema. NEURO: Awake and alert. Moves right upper and lower extremity spontaneously. Weak bilateral venetian blind installer L>R. Able to weakly dorsi and plantar flex left foot. Fair strength RLE. Normal speech. PSYCHIATRIC: Flat affect. Calm and cooperative. - Urinary Catheter Management Indwelling Temp Sensing Catheter Cath placed during this visit: yes, but has since been removed by the nurse Reason for continuing: Not indwelling catheter Insertion date: 03/12/18 Insertion time: 05:30 Removal date: 03/25/18 Removal time: 18:00 Indwelling Urethral Catheter Cath placed during this visit: yes, but has since been removed by the nurse Reason for continuing: Decision to DC catheter Insertion date: 03/22/18 Insertion time: 17:30 Removal date: 03/25/18 Removal time: 18:00 Condom Cath placed during this visit: yes, but has since been removed by the nurse Reason for continuing: Hourly intake/output Insertion date: 05/13/18 Insertion time: 14:30 Removal date: 03/25/18 Removal time: 18:00 Results - Labs CBC & Chem 7: 06/02/18 13:04 06/02/18 13:04 Laboratory Results - last 24 hr 06/03/18 12:28 Urine Color Jeannine Urine Clarity Cloudy H Urine pH 6.0 Ur Specific [place] 1.019 Urine Protein Negative Urine Glucose (UA) Negative Urine Ketones Negative Urine Occult Blood Negative Urine Nitrate Negative Urine Bilirubin Negative Urine Urobilinogen Less than 2 Ur Leukocyte Esterase Trace H Urine RBC 4 H Urine WBC Less than 1 Amorphous Sediment Few H Urine Bacteria Moderate H Urine Mucus Few H Micro UA Comment Culture indicated Urine Culture Comments Culture indicated Microbiology 06/03/18 12:28 Clean Catch Urine Urine Culture - Final Pseudomonas aeruginosa - Procedures PEG 7 - right decompressive craniectomy 03/22/18 with placement of ICP monitor by Dr. Chacko, ca'ed 03/23/18 03/22/18 Right frontotemporal parietal decompressive craniectomy and Duroplasty 03/22/18 Left frontal bur hole with placement of an intracranial pressure monitor Assessment and Plan - Assessment (1) Intracranial hemorrhage following injury Code(s): S06.309A - Unspecified focal traumatic brain injury with loss of consciousness of unspecified duration, initial encounter Status: Acute (2) Traumatic brain injury Code(s): S06.9X9A - Unspecified intracranial injury with loss of consciousness of unspecified duration, initial encounter Status: Acute (3) Fall Code(s): W19.XXXA - Unspecified fall, initial encounter Status: Chronic (4) Cocaine abuse Code(s): F14.10 - Cocaine abuse, uncomplicated Status: Chronic (5) ETOH abuse Code(s): F10.10 - Alcohol abuse, uncomplicated Status: Chronic (6) Dysphagia Code(s): R13.10 - Dysphagia, unspecified Status: Acute - Plan 62-year-old male admitted secondary to intracranial hemorrhage 06/05: Recent neutropenia noted on labs -currently considering medications as cause; Keppra in particular; neuro has started taper. Continue current medical management. 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 SAH bilat frontal lobes, right parietal, temporal. Right frontotemporal SDH status post emergency craniectomy for decompression for worsening midline shift right to left 2.1 cm s/p Fall, ?syncope Daily alcohol use/Cocaine abuse - s/p Right frontotemporal parietal decompressive craniectomy and Duroplasty by Dr. Chacko. - s/p right cranioplasty 05/13/18, incision healing well. [place] removed. - Continue on Keppra - no seizure activity reported - Continue with PT/OT - PT recommends rehab at discharge - Seizure precautions Palliative care following, appreciate assistance. Per note, patient has improved tremendously. Feels he has capacity to make medical decisions with support of family. Recommended psych consult to assess capacity. Psychiatry consulted, appreciate assistance. - Dr. Narvaez following, appreciate assistance Neutropenia -Possibly related to Keppra (?). Neurology consult ordered. -Labs ordered to evaluate. HIV negative. Hep C positive-quant pending. B12 and folate ok. CRP normal. ESR elevated. UA positive -Afebrile -Consider heme consult Headache repeat CT head 04/[address] head 04/26 shows stable exam with large right craniectomy defect and 5 mm midline shift, no hemorrhage CTA head negative -Neurology following, appreciate assistance. Started on Topamax 50mg BID for likely vascular component. Topamax increased 05/18 to 75mg BID. -pain control as needed. Dysphagia Protein calorie malnutrition s/p PEG tube placement 03/30/18 - ST re-evaluated and patient given puree diet with nectar thickened liquids. - Calorie count completed, inadequate intake. 04/20 TF resumed - Jevity 1.5 at 75 mls per hour 12 hours at night 7pm to 7am. Patient now refusing tube feed. - Captain Cannery Tender following, recommends continued nighttime feeding and supplement. Continue to monitor and follow dietary recs. - Needs assistance with all meals Acute respiratory failure secondary to failure to protect airway-resolved extubated MRSA pneumonia, status post treatment with IV vancomycin and Rocephin Tobacco abuse Extubated 03/25/2018 - Continue as needed duo nebs - continue to monitor respiratory status - Supplemental oxygen as needed Pseudomonas UTI - completed abx treatment -Repeat UA resulted on 06/05 -positive for Pseudomonas. Start ceftazidime. DVT prophylaxis SCDs No chemoprophylaxis anticoagulation due to recent intracranial bleed (2) Traumatic brain injury Qualifiers: Encounter type: subsequent encounter
[2018-06-05] MEDS: SODIUM CHLOR 0.9% IV.SIG SCH (13:44)
[2018-06-05] MEDS: CEFTAZIDIME IV.SIG SCH (13:44)
[2018-06-06] MEDS: CEFTAZIDIME IV.SIG SCH ×2 (01:23→14:15)
[2018-06-06] MEDS: SODIUM CHLOR 0.9% IV.SIG SCH ×2 (01:23→14:15)
[2018-06-06 07:57] LABS: Baso % (Auto) 0.9 % (0.0-2.0); Eos # (Auto) 0.1 th/mm3 (0.0-0.4); Eos % (Auto) 3.2 % (0.0-4.0); Hematocrit 36.8 % (39.0-51.0); Hemoglobin 12.1 gm/dL (13.0-17.0); Lymph # (Auto) 1.4 th/mm3 (1.0-4.8); Lymph % (Auto) 46.9 % (9.0-44.0); Mean Corpuscular Hemoglobin 29.8 pg (27.0-34.0); Mean Corpuscular Volume 90.4 fL (80.0-100.0); Mean Platelet Volume 7.7 fL (7.0-11.0); Mono # (Auto) 0.2 th/mm3 (0.0-0.9); Mono % (Auto) 8.4 % (0.0-8.0); Neut # (Auto) 1.2 th/mm3 (1.8-7.7); Neut % (Auto) 40.6 % (16.0-70.0); Platelet Count 250 th/mm3 (150-450); Red Blood Count 4.07 mil/mm3 (4.50-5.90); Red Cell Distribution Width 13.9 % (11.6-17.2); White Blood Count 2.9 th/mm3 (4.0-11.0)
--- NOTE | 2018-06-06 10:11 | P.PN ---
Subjective Interval history: Patient is seen lying in bed. He is much more awake and alert. Tells me he is significantly better with less Keppra. He tells me every time he got Keppra it made him "go to [place]". He is also requesting that his PEG tube be removed. He is currently getting no medications or feedings through the tube. Only intervention is flushes which he reports make him very nauseous and unable to eat. He understands that he is at a nutritional deficit and that the PEG tube could be essential to maintaining his life if he was to become incapacitated or unable to take food by mouth -despite education he insists on having the PEG removed. Otherwise well with no complaints. He is trying to drink his Ensure and reports that he had a little more appetite this morning. Nursing reports no adverse events. Physical Exam Vital signs: Vital Signs 06/05/18 11:18 06/05/18 11:38 06/05/18 15:29 Temperature 98 F Pulse Rate 87 Respiratory Rate 12 18 12 Blood Pressure 117/75 Pulse Oximetry 98 06/05/18 16:00 06/05/18 18:33 06/05/18 20:00 Temperature 98.3 F 98.1 F Pulse Rate 80 80 Respiratory Rate 18 12 18 Blood Pressure 113/73 115/72 Pulse Oximetry 100 100 06/05/18 20:02 06/06/18 00:00 06/06/18 04:00 Temperature 97.8 F 97.8 F Pulse Rate 79 80 Respiratory Rate 12 18 18 Blood Pressure 110/76 125/70 Pulse Oximetry 99 97 06/06/18 08:00 Temperature 96.5 F L Pulse Rate 78 Respiratory Rate 16 Blood Pressure 122/77 Pulse Oximetry 97 Intake & Output 06/05/18 06/06/18 06/06/18 18:59 06:59 18:59 Intake Total 1180 / 1180 100 / 100 Balance 1180 / 1180 100 / 100 Weight 59.7 kg Intake: IV 100 / 100 100 / 100 Tazicef Inj 500 MG In NS Inj 100 / 100 100 / 100 100 ML @ 200 mls/hr IV.SIG Q12H PEDRO LUIS Rx#:[id number] Oral 1080 / 1080 Other: # Incontinent Voids 2 3 Date of Last Bowel Movement 06/03/18 Narrative: Narrative: GENERAL: Very thin, well-developed adult male in no obvious distress. SKIN: Warm and dry. No generalized rash. HEENT: s/p right sided cranioplasty. Incision appears healing well. CARDIOVASCULAR: Regular rate and rhythm without murmurs, gallops, or rubs. RESPIRATORY: No accessory muscle use. Breath sounds equal bilaterally. GASTROINTESTINAL: Abdomen soft, no tenderness, nondistended. Normal bowel sounds. PEG site C/D/I. MUSCULOSKELETAL: No cyanosis or edema. NEURO: Awake and alert. Moves right upper and lower extremity spontaneously. Weak bilateral supervisor cellars L>R. Able to weakly dorsi and plantar flex left foot. Fair strength RLE. Normal speech. PSYCHIATRIC: Flat affect. Calm and cooperative. - Urinary Catheter Management Indwelling Temp Sensing Catheter Cath placed during this visit: yes, but has since been removed by the nurse Reason for continuing: Not indwelling catheter Insertion date: 03/12/18 Insertion time: 05:30 Removal date: 03/25/18 Removal time: 18:00 Indwelling Urethral Catheter Cath placed during this visit: yes, but has since been removed by the nurse Reason for continuing: Decision to DC catheter Insertion date: 03/22/18 Insertion time: 17:30 Removal date: 03/25/18 Removal time: 18:00 Condom Cath placed during this visit: yes, but has since been removed by the nurse Reason for continuing: Hourly intake/output Insertion date: 05/13/18 Insertion time: 14:30 Removal date: 03/25/18 Removal time: 18:00 Results - Labs CBC & Chem 7: 06/06/18 06:26 06/02/18 13:04 Laboratory Results - last 24 hr 06/06/18 06:26 WBC 2.9 L RBC 4.07 L Hgb 12.1 L Hct 36.8 L MCV 90.4 MCH 29.8 MCHC 33.0 RDW 13.9 Plt Count 250 MPV 7.7 Neut % (Auto) 40.6 Lymph % (Auto) 46.9 H [place] % (Auto) 8.4 H Eos % (Auto) 3.2 Baso % (Auto) 0.9 Neut # (Auto) 1.2 L Lymph # (Auto) 1.4 [place] # (Auto) 0.2 Eos # (Auto) 0.1 Baso # (Auto) 0.0 WBC Differential . Differential Comment Auto diff final Microbiology 06/03/18 12:28 Clean Catch Urine Urine Culture - Final Pseudomonas aeruginosa - Procedures PEG 7 - right decompressive craniectomy 03/22/18 with placement of ICP monitor by Dr. Chacko, ri'ed 03/23/18 03/22/18 Right frontotemporal parietal decompressive craniectomy and Duroplasty 03/22/18 Left frontal bur hole with placement of an intracranial pressure monitor Assessment and Plan - Assessment (1) Intracranial hemorrhage following injury Code(s): S06.309A - Status: Acute (2) Traumatic brain injury Code(s): S06.9X9A - Status: Acute (3) Fall Code(s): W19.XXXA - Status: Chronic (4) Cocaine abuse Code(s): F14.10 - Status: Chronic (5) ETOH abuse Code(s): F10.10 - Status: Chronic (6) Dysphagia Code(s): R13.10 - Status: Acute - Plan 62-year-old male admitted secondary to intracranial hemorrhage Right frontal IPH 53.3 cm. SAH bilat frontal lobes, right parietal, temporal. Right frontotemporal SDH status post emergency craniectomy for decompression for worsening midline shift right to left 2.1 cm s/p Fall, ?syncope Daily alcohol use/Cocaine abuse - s/p Right frontotemporal parietal decompressive craniectomy and Duroplasty by Dr. Chacko. - s/p right cranioplasty 05/13/18, incision healing well. [place] removed. - Continue on Keppra - no seizure activity reported - Continue with PT/OT - PT recommends rehab at discharge - Seizure precautions Palliative care following, appreciate assistance. Per note, patient has improved tremendously. Feels he has capacity to make medical decisions with support of family. Recommended psych consult to assess capacity. Psychiatry consulted, appreciate assistance. - Dr. Narvaez following, appreciate assistance Neutropenia -Possibly related to Keppra (?). Neurology consult ordered -neurology is currently weaning Keppra. -Labs ordered to evaluate. HIV negative. Hep C positive-quant pending. B12 and folate ok. CRP normal. ESR elevated. -Afebrile Headache repeat CT head 04/[address] head 04/26 shows stable exam with large right craniectomy defect and 5 mm midline shift, no hemorrhage CTA head negative -Neurology following, appreciate assistance. Started on Topamax 50mg BID for likely vascular component. Topamax increased 05/18 to 75mg BID. -pain control as needed. Dysphagia Protein calorie malnutrition s/p PEG tube placement 03/30/18 - ST re-evaluated and patient given puree diet with nectar thickened liquids. - Calorie count completed, inadequate intake. 04/20 TF resumed - Jevity 1.5 at 75 mls per hour 12 hours at night 7pm to 7am. Patient now refusing tube feed. - Department [employer] Chair following, recommends continued nighttime feeding and supplement. Continue to monitor and follow dietary recs. - Needs assistance with all meals - 06/06 -patient requesting that PEG tube be removed due to persistent nausea with use. GI consulted Acute respiratory failure secondary to failure to protect airway-resolved extubated MRSA pneumonia, status post treatment with IV vancomycin and Rocephin Tobacco abuse Extubated 03/25/2018 - Continue as needed duo nebs - continue to monitor respiratory status - Supplemental oxygen as needed Pseudomonas UTI - completed abx treatment -Repeat UA resulted on 06/05 -positive for Pseudomonas. Started ceftazidime . DVT prophylaxis SCDs No chemoprophylaxis anticoagulation due to recent intracranial bleed (2) Traumatic brain injury Qualifiers: Encounter type: subsequent encounter
[2018-06-06] MEDS: Senna/Docusate Sodium 8.6/50 MG Tablet PO SCH ×2 (14:15→21:37)
[2018-06-06] MEDS: levETIRAcetam 500 MG Tablet PO SCH (14:15)
[2018-06-06] MEDS: Topiramate 25 MG Tablet PO SCH ×2 (14:15→21:37)
[2018-06-07] MEDS: CEFTAZIDIME IV.SIG SCH ×2 (00:18→14:20)
[2018-06-07] MEDS: SODIUM CHLOR 0.9% IV.SIG SCH ×2 (00:18→14:20)
[2018-06-07 05:33] LABS: Alanine Aminotransferase 11 U/L (12-78); Albumin 2.9 g/dL (3.4-5.0); Anion Gap 7 meq/L (5-15); Aspartate Aminotransferase 15 U/L (15-37); Blood Urea Nitrogen 17 mg/dL (7-18); Calcium 8.9 mg/dL (8.5-10.1); Carbon Dioxide 27.8 meq/L (21.0-32.0); Chloride 113 meq/L (98-107); Glomerular Filtration Rate Greater Than 89 mL/min (>89); Glucose,Random 91 mg/dL (74-106); Potassium 3.7 meq/L (3.5-5.1); Sodium 148 meq/L (136-145)
[2018-06-07 05:34] LABS: Alkaline Phosphatase 64 U/L (45-117); Total Protein 7.5 g/dL (6.4-8.2)
[2018-06-07] MEDS: Senna/Docusate Sodium 8.6/50 MG Tablet PO SCH ×2 (08:45→21:33)
[2018-06-07] MEDS: Topiramate 25 MG Tablet PO SCH ×2 (08:45→21:32)
--- NOTE | 2018-06-07 11:14 | P.DIET ---
Nutritional Evaluation Type of nutrition evaluation: follow-up Nutrition consult regarding: Tube Feeding Nutrition [place]: [facility] [place] [facility] [place]. Pt requesting PEG removal) Subjective Subjective Comments: Eats ~50%. Objective - Diagnosis ICH, SAH, Syncope - Objective % IBW: 87 (IBW = 166#) Body Weight Used for Calculations: Actual (65.4 kg) Energy Needs - Lower Range (kCal/kg): 28 Energy Needs - Upper Range (kCal/kg): 33 Lower Limit kCal/kg (kCals): 1,831 Upper Limit kCal/kg (kCals): 2,158 Lower Limit Protein Factor (Grams per Kg): 1.2 Upper Limit Protein Factor (Grams per Kg): 1.5 Lower Protein Needs (Protein): 79 Upper Protein Needs (Protein): 98 Fluid Factor (ml/kg): 28 Estimated Fluid Needs (ml): 1,831 Dietitian Reviewed in Medical Record: Current diet, Curent medications, Intake & Output, Labs, Medical history, Tube feeding, Wound/DTI Diet Order: Mechanical Soft Speech Therapy Recommendations: Yes Objective Comments: PMH: COPD, Asthma, tobacco abuse, daily ETOH use 03/22 R front temporal parietal decompressive craniectomy Integumentary: coccyx pressure injury PEG placement 03/30/1805/13 R frontal temporal parietal cranioplasty Feeding - Current PO Supplement Current Supplement: Ensure Enlive Current Frequency of Supplement: Three times a day Current kCals Provided by Supplement: 350 Current Protein Provided by Supplement: 20 Supplement Comments: plus Ensure Pudding(= 170 kcal and 4g protein per serving) Assessment Assessment: Pt was extubated on 03/25 and PEG tube placed 03/30. Current diet is mechanical soft and Ensure Enlive and Ensure Pudding added. CBW is 52.7 kg which indicates weight loss since admission. Recommend continue night time TFing to supplement po intake to prevent further nutritional compromise. Recommend increase Jevity 1.5 to 85 mls/hr from 7pm -7am to provide 1530 kcals and 65 gms protein. Pt is still unable to meet nutritional needs with po intake alone. Benefits from full assistance at meals. Goal would be to discontinue TF at some point. Calorie counts will run from 06/07-06/10. Updated recommendations to follow. Recommendations: 1. Diet per ST 2. INCREASE TF: Jevity 1.5 @ 85 mls/hr x 12 hours at night 3.Continue Ensure Enlive TID 4.Continue Ensure Pudding TID 5. Please provide full assistance at meals 6. calorie counts: 06/07-06/10 Dietitian to Monitor: Lab values, Supplement acceptance, Intake & Output, Diet tolerance, Weight change, PO Intake, Wound/skin status, Medical course
--- NOTE | 2018-06-07 11:32 | P.PN ---
Subjective Interval history: Follow-up on patient with IPH, SAH, SDH. Patient seen and examined. Patient with minimal verbalization today, he responds to ROS questions by shaking his head no. He denies any headache or dizziness. Denies any chest pain or shortness of breath. Denies any nausea, vomiting or abdominal pain. He shakes his head yes when asked if he is eating well. Discussed with nursing staff, patient has not been eating well per their report. No acute events noted overnight. Physical Exam Vital signs: Vital Signs 06/06/18 12:00 06/06/18 16:00 06/06/18 20:00 Temperature 97.6 F 96.2 F L 97.4 F L Pulse Rate 76 84 73 Respiratory Rate 16 20 18 Blood Pressure 117/75 122/71 113/75 Pulse Oximetry 98 100 100 06/06/18 21:37 06/07/18 00:00 06/07/18 04:00 Temperature 97.3 F L 98 F Pulse Rate 73 68 Respiratory Rate 18 18 18 Blood Pressure 119/76 126/74 Pulse Oximetry 99 99 06/07/18 08:00 Temperature 97.8 F Pulse Rate 74 Respiratory Rate 16 Blood Pressure 125/75 Pulse Oximetry 97 Intake & Output 06/06/18 06/07/18 06/07/18 18:59 06:59 18:59 Intake Total 340 / 340 Output Total 2 / 2 Balance 338 / 338 Weight 59.7 kg Intake: IV 100 / 100 Tazicef Inj 500 MG In NS Inj 100 / 100 100 ML @ 200 mls/hr IV.SIG Q12H PEDRO LUIS Rx#:[id number] Oral 240 / 240 Output: Urine 2 / 2 Other: Date of Last Bowel Movement 06/03/18 # Incontinent Bowel Movements 1 Narrative: GENERAL: This is a thin, frail, -[place] male patient. Awake and alert. Not in any acute distress. Appears comfortable. SKIN: Warm and dry. No generalized rash. HEENT: s/p right sided cranioplasty. Incision well healed. No sclera injection. No drainage. No nasal drainage. Dry mucus membranes. NECK: Trachea midline. Airway patent. CARDIOVASCULAR: Regular rate and rhythm without murmurs, gallops, or rubs. RESPIRATORY: No accessory muscle use. Breath sounds equal bilaterally. Poor effort, clear to auscultation anteriorly. GASTROINTESTINAL: Abdomen soft, non-tender, nondistended. PEG site C/D/I. MUSCULOSKELETAL: No cyanosis or edema. NEURO: Awake and alert. Moves right upper and lower extremity spontaneously. Weak bilateral dermatology procedural physician L>R. Able to weakly dorsi and plantar flex left foot. Fair strength RLE. Minimal speech. PSYCHIATRIC: Flat affect. Calm and cooperative. Insight and judgement poor. - Urinary Catheter Management Indwelling Temp Sensing Catheter Cath placed during this visit: yes, but has since been removed by the nurse Reason for continuing: Not indwelling catheter Insertion date: 03/12/18 Insertion time: 05:30 Removal date: 03/25/18 Removal time: 18:00 Indwelling Urethral Catheter Cath placed during this visit: yes, but has since been removed by the nurse Reason for continuing: Decision to DC catheter Insertion date: 03/22/18 Insertion time: 17:30 Removal date: 03/25/18 Removal time: 18:00 Condom Cath placed during this visit: yes, but has since been removed by the nurse Reason for continuing: Hourly intake/output Insertion date: 05/13/18 Insertion time: 14:30 Removal date: 03/25/18 Removal time: 18:00 Results - Labs CBC & Chem 7: 06/06/18 06:26 06/07/18 03:58 Laboratory Results - last 24 hr 06/07/18 03:58 Sodium 148 H Potassium 3.7 Chloride 113 H Carbon Dioxide 27.8 Anion Gap 7 BUN 17 Creatinine 0.72 Estimated GFR Greater than 89 Random Glucose 91 Calcium 8.9 Total Bilirubin 0.2 AST 15 ALT 11 L Alkaline Phosphatase 64 Total Protein 7.5 Albumin 2.9 L - Procedures PEG 7 -25 right decompressive craniectomy 03/22/18 with placement of ICP monitor by Dr. Chacko, ak'ed 03/23/18 03/22/18 Right frontotemporal parietal decompressive craniectomy and Duroplasty 03/22/18 Left frontal bur hole with placement of an intracranial pressure monitor Assessment and Plan - Assessment (1) Intracranial hemorrhage following injury Code(s): S06.309A - Unspecified focal traumatic brain injury with loss of consciousness of unspecified duration, initial encounter Status: Acute (2) Traumatic brain injury Code(s): S06.9X9A - Unspecified intracranial injury with loss of consciousness of unspecified duration, initial encounter Status: Acute (3) Fall Code(s): W19.XXXA - Unspecified fall, initial encounter Status: Chronic (4) Cocaine abuse Code(s): F14.10 - Cocaine abuse, uncomplicated Status: Chronic (5) ETOH abuse Code(s): F10.10 - Alcohol abuse, uncomplicated Status: Chronic (6) Dysphagia Code(s): R13.10 - Dysphagia, unspecified Status: Acute - Plan 62-year-old male admitted secondary to intracranial hemorrhage Right frontal IPH 53.3 cm. SAH bilat frontal lobes, right parietal, temporal. Right frontotemporal SDH status post emergency craniectomy for decompression for worsening midline shift right to left 2.1 cm s/p Fall, ?syncope Daily alcohol use/Cocaine abuse - s/p Right frontotemporal parietal decompressive craniectomy and Duroplasty by Dr. Chacko. - s/p right cranioplasty 05/13/18, incision healing well. [place] in place. - Continue with PT/OT - PT recommends rehab at discharge - Seizure precautions Palliative care following, appreciate assistance. Per note, patient has improved tremendously. Feels he has capacity to make medical decisions with support of family. Recommended psych consult to assess capacity. Psychiatry consulted, appreciate assistance. - Dr. Narvaez following, appreciate assistance - Monitor for any seizure activity off of Keppra. Continue on Topamax. Neutropenia -Possibly secondary to Keppra. Patient weaned off of Keppra by neurology yesterday. -Monitor for improvement in white count. -blood smear ordered Hypernatremia -Encourage po fluid intake -monitor Na level Headache repeat CT head 04/[address] head 04/26 shows stable exam with large right craniectomy defect and 5 mm midline shift, no hemorrhage CTA head negative -Neurology following, appreciate assistance. Started on Topamax 50mg BID for likely vascular component. Topamax increased 05/18 to 75mg BID. Consider adding Decadron if headache persist -Patient denies any c/o of headache this am Dysphagia Protein calorie malnutrition s/p PEG tube placement 03/30/18 - ST re-evaluated and patient given puree diet with nectar thickened liquids. - Calorie count completed, inadequate intake. 04/20 TF resumed - Jevity 1.5 at 75 mls per hour 12 hours at night 7pm to 7am. - Geomatics Professor following, recommends continued nighttime feeding and supplement - Needs assistance with all meals - Patient is requesting PEG tube be removed due to persistent nausea with use. Patient has been refusing PEG tube feedings. Will consult manager nursing home to initiate calorie count. Additionally, we will need to ascertain if patient has capacity to request PEG tube be removed. Will request evaluation by Psychiatry. Acute respiratory failure secondary to failure to protect airway-resolved extubated MRSA pneumonia, status post treatment with IV vancomycin and Rocephin Tobacco abuse Extubated 03/25/2018 - Continue as needed duo nebs - continue to monitor respiratory status - Supplemental oxygen as needed Pseudomonas UTI - completed abx treatment - 06/05 repeat UA positive for Pseudomonas. Currently on Ceftazidime. DVT prophylaxis SCDs No chemoprophylaxis anticoagulation due to recent intracranial bleed Code Status: FULL Discussed Condition With: patient, nursing staff Discharge Planning: Difficult placement. No payor source. CM assisting with ongoing discharge plan. (2) Traumatic brain injury Qualifiers: Encounter type: subsequent encounter
[2018-06-07] MEDS: Melatonin 5 MG Tablet PO PRN (21:33)
[2018-06-08] MEDS: SODIUM CHLOR 0.9% IV.SIG SCH ×2 (04:05→12:59)
[2018-06-08] MEDS: CEFTAZIDIME IV.SIG SCH ×2 (04:05→12:59)
--- NOTE | 2018-06-08 07:14 | P.PN ---
Subjective Interval history: Follow-up on patient with IPH, SAH, SDH. Patient seen and examined. She is doing good. He states he is "relaxing". He denies any complaints. Denies any headache. Denies any chest pain or shortness of breath. Denies any nausea, vomiting or abdominal pain. Physical Exam Vital signs: Vital Signs 06/07/18 08:00 06/07/18 12:00 06/07/18 20:00 Temperature 97.8 F 96.8 F L 97.9 F Pulse Rate 74 74 82 Respiratory Rate 16 22 19 Blood Pressure 125/75 109/65 116/64 Pulse Oximetry 97 98 96 06/07/18 21:33 06/08/18 00:00 Temperature 97.6 F Pulse Rate 78 Respiratory Rate 19 18 Blood Pressure 114/62 Pulse Oximetry 96 Intake & Output 06/07/18 06/08/18 06/08/18 18:59 06:59 18:59 Intake Total 100 / 100 592 / 592 Balance 100 / 100 592 / 592 Weight 54.5 kg Intake: IV 100 / 100 Tazicef Inj 500 MG In NS Inj 100 / 100 100 ML @ 200 mls/hr IV.SIG Q12H PEDRO LUIS Rx#:[id number] Oral 442 / 442 Oral Supplement 0 / 0 Tube Irrigant 150 / 150 Anesthesia Amount 0 / 0 Other: # Voids 1 Date of Last Bowel Movement 06/07/18 # Bowel Movements 1 Narrative: GENERAL: This is a thin, frail, -[place] male patient. Awake and alert. Not in any acute distress. Appears comfortable. Feeding himself breakfast. SKIN: Warm and dry. No generalized rash. HEENT: s/p right sided cranioplasty. Incision well healed. No sclera injection. No drainage. No nasal drainage. Dry mucus membranes. NECK: Trachea midline. Airway patent. CARDIOVASCULAR: Regular rate and rhythm without murmurs, gallops, or rubs. RESPIRATORY: No accessory muscle use. Breath sounds equal bilaterally. Poor effort, clear to auscultation anteriorly. GASTROINTESTINAL: Abdomen soft, non-tender, nondistended. PEG site C/D/I. MUSCULOSKELETAL: No cyanosis or edema. NEURO: Awake and alert. Moves right upper and lower extremity spontaneously. Weak bilateral sales and training specialist L>R. Able to weakly dorsi and plantar flex left foot. Fair strength RLE. Minimal speech. PSYCHIATRIC: Flat affect. Calm and cooperative. Insight and judgement poor. - Urinary Catheter Management Indwelling Temp Sensing Catheter Cath placed during this visit: yes, but has since been removed by the nurse Reason for continuing: Not indwelling catheter Insertion date: 03/12/18 Insertion time: 05:30 Removal date: 03/25/18 Removal time: 18:00 Indwelling Urethral Catheter Cath placed during this visit: yes, but has since been removed by the nurse Reason for continuing: Decision to DC catheter Insertion date: 03/22/18 Insertion time: 17:30 Removal date: 03/25/18 Removal time: 18:00 Condom Cath placed during this visit: yes, but has since been removed by the nurse Reason for continuing: Hourly intake/output Insertion date: 05/13/18 Insertion time: 14:30 Removal date: 03/25/18 Removal time: 18:00 Results - Labs CBC & Chem 7: 06/08/18 06:16 06/08/18 06:16 - Procedures PEG 7 -25 right decompressive craniectomy 03/22/18 with placement of ICP monitor by Dr. Chacko, me'ed 03/23/18 03/22/18 Right frontotemporal parietal decompressive craniectomy and Duroplasty 03/22/18 Left frontal bur hole with placement of an intracranial pressure monitor Assessment and Plan - Assessment (1) Intracranial hemorrhage following injury Code(s): S06.309A - Unspecified focal traumatic brain injury with loss of consciousness of unspecified duration, initial encounter Status: Acute (2) Traumatic brain injury Code(s): S06.9X9A - Unspecified intracranial injury with loss of consciousness of unspecified duration, initial encounter Status: Acute (3) Fall Code(s): W19.XXXA - Unspecified fall, initial encounter Status: Chronic (4) Cocaine abuse Code(s): F14.10 - Cocaine abuse, uncomplicated Status: Chronic (5) ETOH abuse Code(s): F10.10 - Alcohol abuse, uncomplicated Status: Chronic (6) Dysphagia Code(s): R13.10 - Dysphagia, unspecified Status: Acute - Plan 62-year-old male admitted secondary to intracranial hemorrhage Right frontal IPH 53.3 cm. SAH bilat frontal lobes, right parietal, temporal. Right frontotemporal SDH status post emergency craniectomy for decompression for worsening midline shift right to left 2.1 cm s/p Fall, ?syncope Daily alcohol use/Cocaine abuse - s/p Right frontotemporal parietal decompressive craniectomy and Duroplasty by Dr. Chacko. - s/p right cranioplasty 05/13/18, incision healing well. - Continue with PT/OT - PT recommends rehab at discharge - Seizure precautions Palliative care following, appreciate assistance. Per note, patient has improved tremendously. Feels he has capacity to make medical decisions with support of family. Recommended psych consult to assess capacity. Psychiatry consulted, appreciate assistance. - Dr. Narvaez following, appreciate assistance - he still exhibit signs and symptoms of frontal lobe dysfunction, characterized by a lack of insight, awareness and judgment. He wishes the PEG to be d/c'ed but he is not eating appropriately, and as such I would caution against that decision at this time. He is [place] . He continues to lack decision making capacity in my opinion because of his neuropsychological clinical presentation. - Monitor for any seizure activity off of Keppra. Continue on Topamax. Neutropenia -worsening, WBC 2.5, ANC 0.8 -likely due to Fortaz. Discontinue Fortaz -Monitor for improvement in white count. -blood smear ordered/pending Hypernatremia, resolved -Encourage po fluid intake -monitor Na level Headache repeat CT head 04/[address] head 04/26 shows stable exam with large right craniectomy defect and 5 mm midline shift, no hemorrhage CTA head negative -Neurology following, appreciate assistance. Started on Topamax 50mg BID for likely vascular component. Topamax increased 05/18 to 75mg BID. Consider adding Decadron if headache persist -Patient denies any c/o of headache this am Dysphagia Protein calorie malnutrition s/p PEG tube placement 03/30/18 - ST re-evaluated and patient given puree diet with nectar thickened liquids. - Calorie count completed, inadequate intake. 04/20 TF resumed - Jevity 1.5 at 75 mls per hour 12 hours at night 7pm to 7am. - Neckties Painter following, recommends continued nighttime feeding and supplement - Needs assistance with all meals - Patient is requesting PEG tube be removed due to persistent nausea with use. Patient has been refusing PEG tube feedings. Will consult poultry buyer to initiate calorie count. Discussed with Dr. Narvaez and Dr. Newell - patient does not have decision making capacity Acute respiratory failure secondary to failure to protect airway-resolved extubated MRSA pneumonia, status post treatment with IV vancomycin and Rocephin Tobacco abuse Extubated 03/25/2018 - Continue as needed duo nebs - continue to monitor respiratory status - Supplemental oxygen as needed Pseudomonas UTI - completed abx treatment - 06/05 repeat UA positive for Pseudomonas. Currently on Ceftazidime, discontinued secondary to neutropenia DVT prophylaxis SCDs No chemoprophylaxis anticoagulation due to recent intracranial bleed Code Status: FULL Discussed Condition With: patient, nursing staff, Dr. Narvaez, Dr. Newell Discharge Planning: Difficult placement. No payor source. CM assisting with ongoing discharge plan. (2) Traumatic brain injury Qualifiers: Encounter type: subsequent encounter
[2018-06-08 07:28] LABS: Baso % (Auto) 0.7 % (0.0-2.0); Eos # (Auto) 0.1 th/mm3 (0.0-0.4); Hematocrit 37.2 % (39.0-51.0); Hemoglobin 12.1 gm/dL (13.0-17.0); Lymph # (Auto) 1.3 th/mm3 (1.0-4.8); Lymph % (Auto) 54.1 % (9.0-44.0); Mean Corpuscular HGB Conc 32.6 % (32.0-36.0); Mean Corpuscular Hemoglobin 29.7 pg (27.0-34.0); Mean Platelet Volume 7.7 fL (7.0-11.0); Mono # (Auto) 0.2 th/mm3 (0.0-0.9); Mono % (Auto) 7.2 % (0.0-8.0); Neut # (Auto) 0.8 th/mm3 (1.8-7.7); Platelet Count 201 th/mm3 (150-450); Red Blood Count 4.08 mil/mm3 (4.50-5.90); Red Cell Distribution Width 14.5 % (11.6-17.2); White Blood Count 2.5 th/mm3 (4.0-11.0)
[2018-06-08 07:51] LABS: Alanine Aminotransferase 12 U/L (12-78); Albumin 2.9 g/dL (3.4-5.0); Anion Gap 8 meq/L (5-15); Aspartate Aminotransferase 14 U/L (15-37); Blood Urea Nitrogen 15 mg/dL (7-18); Calcium 8.7 mg/dL (8.5-10.1); Carbon Dioxide 27.2 meq/L (21.0-32.0); Chloride 110 meq/L (98-107); Glomerular Filtration Rate Greater Than 89 mL/min (>89); Glucose,Random 90 mg/dL (74-106); Phosphorus 5.1 mg/dL (2.5-4.9); Potassium 3.7 meq/L (3.5-5.1); Sodium 145 meq/L (136-145)
[2018-06-08 07:51] LABS: Hepatitis C RNA (PCR) log IUs 5.7
[2018-06-08 07:53] LABS: Alkaline Phosphatase 63 U/L (45-117); Total Protein 7.4 g/dL (6.4-8.2)
[2018-06-08 08:24] LABS: Eosinophils 6 % (0-4); Lymphocytes 57 % (9-44); Monocytes 4 % (0-8); Platelet Estimate Normal (Normal); Platelet Morphology Normal (Normal)
[2018-06-08 08:25] LABS: RBC Morphology Normal (Normal)
--- NOTE | 2018-06-08 08:31 | P.PNNPSY ---
- Behavior Intact: Impulsive/agitated, Mild: Cooperative with treatment - Cognitive Moderate: Insight/awareness - Psychosocial Severe: Psychosocial, Family/other adjustment, Realistic expectation - Progress Notes/Response to Treatment Contents of Sessions: Adjustment, Level of consciousness Time with Patient: 30 minutes Premorbid Psychological Status: Premorbid Cognitive, Emotional and Behavioral Status: Unstable. The patient has high school and AA degree years of education and a minimal work history prior to this injury. The patient has prior psychiatric difficulties, as described above. Substance abuse history is significant. Behavioral Reactions of Patient and Family/Support System: Unstable. The patient has one daughter whom he reported he has minimal contact. This patient s family may be experiencing ongoing issues of adjustment given the nature of the injury, and this aspect of recovery will require ongoing monitoring. Emotional/Behavioral Status of Patient and Family/Support System: Unstable. Pertinent issues, if appropriate to this patients clinical care, are described in detail above. Maximizing Acute Care Outcome: It is recommended that the patient be monitored for emergent behavioral impulsivity as the medical condition evolves. The ABS is already started and he is not agitated/restless. This patients neuropathological challenges may limit rehabilitation potential going forward, and these challenges will require specialized therapeutic skills to maximize outcome. At this point in the recovery process, the patient's decision making capacity may have improved to some extent but it is unclear whether he is able to understand a situation and its likely consequences, or whether he is able to manipulate information rationally at a level commensurate with his baseline. On the follow-up exam today, I would opine no and this opinion is made based on his limited insight, awareness and judgment on balance with the neuroanatomical injury he sustained. Cognitive capacity will be assessed throughout the recovery process. Anticipated Problems: Ongoing areas of concern will include behavioral impulsivity, lack of insight and judgment, which may not improve with time or treatment. Presently, the patient follows commands when told to do so. Given the severity of the patient' s injuries it is my clinical opinion that this patient will be unable to return to any type of productive employment for at least one year, perhaps longer and likely never. This patient is not considered safe to discharge home without supervision. He will likely require SNF placement. Treatment Plan: This clinician will continue to follow with you throughout the course of this patients acute care treatment, and I will be available to meet with the patient s family/support system to facilitate their understanding and the ongoing care of their family member. The goals of neuropsychological intervention shall be both educational and supportive to the family/support system as is deemed clinically appropriate. [place] COG Scale: Level Disinhibition Score: 14.00 Aggression Score: 14.00 Lability Score: 14.00 Agitated Behavior Total Score: 14 Impression: This 62 year old male with s/p bifrontal TBI, DC and history of polysubstance dependence who is day 47 post admission. This patient presents with neurobehavioral sequelae consistent with frontal lobe pathology, including bradyphrenia, abulia, disconnection between thought and emotion, motor impersistence as well as demonstrating visual neglect (versus field cut). These issues are approaching chronic in nature particularly in the context of underlying neuropathology related to his polysubstance dependence. Progress Note Narrative: PTD 97. The patient remains neurobehaviorally calm and cooperative, but he still exhibit signs and symptoms of frontal lobe dysfunction, characterized by a lack of insight, awareness and judgment. He is calm and cooperative due to neurologically induced amotivational syndrome, and he is abulic. He wishes the PEG to be d/c'ed but he is not eating appropriately, and as such I would caution against that decision at this time. He is [place] . He continues to lack decision making capacity in my opinion because of his neuropsychological clinical presentation. I will follow. - Diagnosis (1) Major neurocognitive disorder as late effect of traumatic brain injury with behavioral disturbance Status: Acute (2) Polysubstance dependence Status: Resolved
[2018-06-08] MEDS: Topiramate 25 MG Tablet PO SCH ×2 (09:16→23:22)
[2018-06-08] MEDS: Senna/Docusate Sodium 8.6/50 MG Tablet PO SCH ×2 (09:16→23:22)
--- NOTE | 2018-06-08 13:21 | P.PNPSY ---
Subjective Remarks: the patient is a 62 year-old man, domiciled with son, retired, with past psychiatric history of self reported bipolar disorder, no prior psychiatric admissions, one remote suicide attempt at the age of 14 y/o via overdose, no self injurious behavior, substance use history of alcohol and cocaine use, with a past medical history of COPD, asthma, who was recently admitted to the medical service for ICH, TBI recent fall which patient was noted to have altered mental status, disinhibited behavior and poor judgment. Consulted to me today for decision-making capacity specifically to leave AMA and to refuse PEG. On my psychiatric evaluation the patient is found quite unmotivated, with flat affect, prominently delay speech and is slow thought process. The patient denies having any pain, denies to be in distress, reports okay mood. The patient is oriented x3, but he is unable to verbalize a clear understanding and appreciation of his current medical situation. For example, the patient says that he wants to leave and he does not wish to have a PEG tube , but he cannot tell me what will be an alternative treatment or how is he planning to continue his medical care if he leaves AMA. Family psychiatric history: son with bipolar disorder, no suicides in the family Past psychiatric history: Bipolar disorder as per patient, no prior psychiatric admissions, one remote suicide attempt at the age of 14 y/o via overdose, no self injurious behavior. No outpatient mental health provider, denies any previous psychotropic medication trials. Substance use history: Tobacco use (+), ETOH daily, 4 beers at a time, cocaine use once per month, last being two months ago; denies use of any other drugs. Past medical history: COPD, asthma, TBI Allergies: NKDA Social history: Domiciled with son, retired (worked in [employer] x 14 years). Mental Status Examination Appearance: Other (In hospital gown; poor dentition) Consciousness: Alert Orientation: Person, Place, Date/Time (year only (stated month being March)) Speech: Other (low volume) Language: Adequate Fund of Knowledge: Poor Attention and Concentration: Other (fair) Mood: Other ("ok") Affect: Blunt Thought Process & Associations: Other (concrete) Thought Content: Appropriate Hallucination Type: None Delusion Type: None Suicidal Ideation: No Suicidal Plan: No Suicidal Intention: No Homicidal Ideation: No Homicidal Plan: No Homicidal Intention: No Insight: Fair Judgment: Impulsive Assessment and Plan - Assessment (1) Psychological factors affecting medical condition Code(s): F54 - Psychological and behavioral factors associated with disorders or diseases classified elsewhere Status: Acute (2) Traumatic brain injury Code(s): S06.9X9A - Unspecified intracranial injury with loss of consciousness of unspecified duration, initial encounter Status: Acute - Plan Plan: At the moment of this evaluation the patient continues to show prominent flat affect, lack of motivation, significant improvement in extraction and judgment secondary to his TBI, he has been expressing to leave AMA, to refuse PEG tube, but the patient is actually unable to express a rational reason for this decision, and the patient does not seem to understand and appreciate the severity of his medical condition and the consequences of this decision, this reason the patient lack capacity to refuse PEG and to leave AMA at this moment. Justification for Continued Inpatient Stay: No admission is indicated in psychiatry
--- NOTE | 2018-06-09 07:19 | P.PN ---
Subjective Interval history: ollow-up on patient with IPH, SAH, SDH. Patient seen and examined. Patient is resting comfortably. He does not voice any complaints. Tolerating tube feedings. DW nursing staff, no acute events noted overnight. Physical Exam Vital signs: Vital Signs 06/08/18 09:15 06/08/18 12:00 06/08/18 16:00 Temperature 97.4 F L 97.4 F L Pulse Rate 76 77 Respiratory Rate 18 18 18 Blood Pressure 125/82 113/71 Pulse Oximetry 99 99 06/08/18 23:20 06/09/18 04:00 Temperature 97.5 F L 97.5 F L Pulse Rate 81 83 Respiratory Rate 16 16 Blood Pressure 123/77 116/77 Pulse Oximetry 98 96 Intake & Output 06/08/18 06/09/18 06/09/18 18:59 06:59 18:59 Intake Total 240 / 240 710 / 710 Balance 240 / 240 710 / 710 Weight 55.5 kg Intake: Oral 240 / 240 Tube Feeding 710 / 710 Other: # Voids 2 # Incontinent Voids 2 Date of Last Bowel Movement 06/07/18 06/08/18 # Bowel Movements 2 Narrative: GENERAL: This is a thin, frail, -[place] male patient. Awake and alert. Not in any acute distress. Appears comfortable. SKIN: Warm and dry. No generalized rash. HEENT: s/p right sided cranioplasty. Incision well healed. No sclera injection. No drainage. No nasal drainage. Dry mucus membranes. NECK: Trachea midline. Airway patent. CARDIOVASCULAR: Regular rate and rhythm without murmurs, gallops, or rubs. RESPIRATORY: No accessory muscle use. Breath sounds equal bilaterally. Poor effort, clear to auscultation anteriorly. GASTROINTESTINAL: Abdomen soft, non-tender, nondistended. PEG site C/D/I. MUSCULOSKELETAL: No cyanosis or edema. NEURO: Awake and alert. Moves right upper and lower extremity spontaneously. Weak bilateral art glass designer L>R. Able to weakly dorsi and plantar flex left foot. Fair strength RLE. Minimal speech. PSYCHIATRIC: Flat affect. Calm and cooperative. Insight and judgement poor. - Urinary Catheter Management Indwelling Temp Sensing Catheter Cath placed during this visit: yes, but has since been removed by the nurse Reason for continuing: Not indwelling catheter Insertion date: 03/12/18 Insertion time: 05:30 Removal date: 03/25/18 Removal time: 18:00 Indwelling Urethral Catheter Cath placed during this visit: yes, but has since been removed by the nurse Reason for continuing: Decision to DC catheter Insertion date: 03/22/18 Insertion time: 17:30 Removal date: 03/25/18 Removal time: 18:00 Condom Cath placed during this visit: yes, but has since been removed by the nurse Reason for continuing: Hourly intake/output Insertion date: 05/13/18 Insertion time: 14:30 Removal date: 03/25/18 Removal time: 18:00 Results - Labs CBC & Chem 7: 06/08/18 06:16 06/08/18 06:16 Laboratory Results - last 24 hr 06/05/18 06/08/18 06/08/18 16:40 06:16 06:16 WBC 2.5 L RBC 4.08 L Hgb 12.1 L Hct 37.2 L MCV 91.0 MCH 29.7 MCHC 32.6 RDW 14.5 Plt Count 201 MPV 7.7 Prelim Diff (Auto) Slide review pending Neut % (Auto) 32.0 Lymph % (Auto) 54.1 H [place] % (Auto) 7.2 Eos % (Auto) 6.0 H Baso % (Auto) 0.7 Neut # (Auto) 0.8 L Lymph # (Auto) 1.3 [place] # (Auto) 0.2 Eos # (Auto) 0.1 Baso # (Auto) 0.0 WBC Differential Manual diff final Seg Neuts % (Manual) 33 Lymphocytes % (Manual) 57 H Monocytes % (Manual) 4 Eosinophils % (Manual) 6 H Abs Neuts (Manual) 0.8 L Differential Comment . Platelet Estimate Normal Platelet Morphology Normal RBC Morphology Normal Sodium 145 Potassium 3.7 Chloride 110 H Carbon Dioxide 27.2 Anion Gap 8 BUN 15 Creatinine 0.72 Estimated GFR Greater than 89 Random Glucose 90 Calcium 8.7 Phosphorus 5.1 H Magnesium 2.0 Total Bilirubin 0.2 AST 14 L ALT 12 Alkaline Phosphatase 63 Total Protein 7.4 Albumin 2.9 L HCV RNA (PCR) IUs/ml [id number] H HCV RNA PCR log IUs/ml 5.70 H - Procedures PEG 7 -25 right decompressive craniectomy 03/22/18 with placement of ICP monitor by Dr. Chacko, ky'ed 03/23/18 03/22/18 Right frontotemporal parietal decompressive craniectomy and Duroplasty 03/22/18 Left frontal bur hole with placement of an intracranial pressure monitor Assessment and Plan - Assessment (1) Intracranial hemorrhage following injury Code(s): S06.309A - Unspecified focal traumatic brain injury with loss of consciousness of unspecified duration, initial encounter Status: Acute (2) Traumatic brain injury Code(s): S06.9X9A - Unspecified intracranial injury with loss of consciousness of unspecified duration, initial encounter Status: Acute (3) Fall Code(s): W19.XXXA - Unspecified fall, initial encounter Status: Chronic (4) Cocaine abuse Code(s): F14.10 - Cocaine abuse, uncomplicated Status: Chronic (5) ETOH abuse Code(s): F10.10 - Alcohol abuse, uncomplicated Status: Chronic (6) Dysphagia Code(s): R13.10 - Dysphagia, unspecified Status: Acute - Plan 62-year-old male admitted secondary to intracranial hemorrhage Right frontal IPH 53.3 cm. SAH bilat frontal lobes, right parietal, temporal. Right frontotemporal SDH status post emergency craniectomy for decompression for worsening midline shift right to left 2.1 cm s/p Fall, ?syncope Daily alcohol use/Cocaine abuse - s/p Right frontotemporal parietal decompressive craniectomy and Duroplasty by Dr. Chacko. - s/p right cranioplasty 05/13/18, incision healing well. - Continue with PT/OT - PT recommends rehab at discharge - Seizure precautions Palliative care following, appreciate assistance. Per note, patient has improved tremendously. Feels he has capacity to make medical decisions with support of family. Recommended psych consult to assess capacity. Psychiatry consulted, appreciate assistance. - Dr. Narvaez following, appreciate assistance - he still exhibit signs and symptoms of frontal lobe dysfunction, characterized by a lack of insight, awareness and judgment. He wishes the PEG to be d/c'ed but he is not eating appropriately, and as such I would caution against that decision at this time. He is [place] . He continues to lack decision making capacity in my opinion because of his neuropsychological clinical presentation. - Monitor for any seizure activity off of Keppra. Continue on Topamax. Neutropenia -worsening, WBC 2.5, ANC 0.8 -likely due to Fortaz. Fortaz stopped. -Monitor for improvement in white count. Repeat CBC in am. -blood smear ordered/pending Headache repeat CT head 04/[address] head 04/26 shows stable exam with large right craniectomy defect and 5 mm midline shift, no hemorrhage CTA head negative -Neurology following, appreciate assistance. Started on Topamax 50mg BID for likely vascular component. Topamax increased 05/18 to 75mg BID. Consider adding Decadron if headache persist -Patient denies any c/o of headache this am Dysphagia Protein calorie malnutrition s/p PEG tube placement 03/30/18 - ST re-evaluated and patient given puree diet with nectar thickened liquids. - Calorie count completed, inadequate intake. 04/20 TF resumed - Jevity 1.5 at 75 mls per hour 12 hours at night 7pm to 7am. - Structural Shop Helper following, recommends continued nighttime feeding and supplement - Needs assistance with all meals - Patient is requesting PEG tube be removed due to persistent nausea with use. Patient has been refusing PEG tube feedings. Will consult weed thinner to initiate calorie count. Discussed with Dr. Narvaez and Dr. Newell - patient does not have decision making capacity. 06/09 TF resumed. Acute respiratory failure secondary to failure to protect airway-resolved extubated MRSA pneumonia, status post treatment with IV vancomycin and Rocephin Tobacco abuse Extubated 03/25/2018 - Continue as needed duo nebs - continue to monitor respiratory status - Supplemental oxygen as needed Pseudomonas UTI - completed abx treatment - 06/05 repeat UA positive for Pseudomonas. Treated with Ceftazidime x 3 days, discontinued secondary to neutropenia DVT prophylaxis SCDs No chemoprophylaxis anticoagulation due to recent intracranial bleed Code Status: FULL Discussed Condition With: patient, nursing staff Discharge Planning: Difficult placement. No payor source. CM assisting with ongoing discharge plan. (2) Traumatic brain injury Qualifiers: Encounter type: subsequent encounter
[2018-06-09] MEDS: Topiramate 25 MG Tablet PO SCH ×2 (09:56→20:58)
[2018-06-09] MEDS: Senna/Docusate Sodium 8.6/50 MG Tablet PO SCH ×2 (09:56→21:00)
[2018-06-10 07:22] LABS: Baso % (Auto) 0.9 % (0.0-2.0); Eos # (Auto) 0.1 th/mm3 (0.0-0.4); Eos % (Auto) 5.3 % (0.0-4.0); Hematocrit 36.4 % (39.0-51.0); Hemoglobin 12.3 gm/dL (13.0-17.0); Lymph # (Auto) 1.3 th/mm3 (1.0-4.8); Lymph % (Auto) 51.7 % (9.0-44.0); Mean Corpuscular HGB Conc 33.6 % (32.0-36.0); Mean Corpuscular Hemoglobin 30.1 pg (27.0-34.0); Mean Corpuscular Volume 89.4 fL (80.0-100.0); Mean Platelet Volume 8.1 fL (7.0-11.0); Mono # (Auto) 0.2 th/mm3 (0.0-0.9); Mono % (Auto) 9.6 % (0.0-8.0); Neut # (Auto) 0.8 th/mm3 (1.8-7.7); Neut % (Auto) 32.5 % (16.0-70.0); Platelet Count 197 th/mm3 (150-450); Red Blood Count 4.08 mil/mm3 (4.50-5.90); White Blood Count 2.6 th/mm3 (4.0-11.0)
--- NOTE | 2018-06-10 07:23 | P.PN ---
Subjective Interval history: Follow-up on patient with IPH, SAH, SDH. Patient seen and examined. Patient states he has nausea. He denies any episodes of emesis. He denies any abdominal pain. He also complains of some shortness of breath. He denies any chest pain. He denies any fever or chills. He does not have a headache. He says that he is frustrated but will not specify why. Discussed with nursing staff, no adverse events noted. Physical Exam Vital signs: Vital Signs 06/09/18 08:00 06/09/18 09:56 06/09/18 12:00 Temperature 97.7 F 97.6 F Pulse Rate 77 75 Respiratory Rate 18 16 16 Blood Pressure 125/75 124/83 Pulse Oximetry 98 100 06/09/18 16:00 06/09/18 19:44 06/09/18 20:00 Temperature 97.6 F 97.5 F L Pulse Rate 76 77 Respiratory Rate 18 16 18 Blood Pressure 137/85 137/85 Pulse Oximetry 98 97 06/10/18 00:00 06/10/18 04:00 Temperature 97.9 F 98.0 F Pulse Rate 83 80 Respiratory Rate 18 18 Blood Pressure 126/87 127/81 Pulse Oximetry 99 96 Intake & Output 06/09/18 06/10/18 06/10/18 18:59 06:59 18:59 Intake Total 1410 / 1410 1000 / 1000 Output Total Balance 1409 / 1409 1000 / 1000 Weight 53.1 kg Intake: IV 100 / 100 Oral 600 / 600 Tube Feeding 710 / 710 900 / 900 Water Bolus Amount 100 / 100 Output: Stool Other: # Incontinent Voids 2 Date of Last Bowel Movement 06/08/18 06/09/18 Narrative: GENERAL: This is a thin, frail, -Sw[place] male patient. Awake and alert. Appears comfortable. Not in any acute distress. SKIN: Warm and dry. No generalized rash. HEENT: s/p right sided cranioplasty. Incision well healed. No sclera injection. No drainage. No nasal drainage. Moist mucus membranes. NECK: Trachea midline. Airway patent. CARDIOVASCULAR: Regular rate and rhythm without murmurs, gallops, or rubs. RESPIRATORY: No accessory muscle use. Breath sounds equal bilaterally. Poor effort, clear to auscultation anteriorly. GASTROINTESTINAL: Abdomen soft, non-tender, nondistended. PEG site C/D/I. MUSCULOSKELETAL: No cyanosis or edema. NEURO: Awake and alert. Moves right upper and lower extremity spontaneously. Weak bilateral doll surgeon L>R. Able to weakly dorsi and plantar flex left foot. Fair strength RLE. Minimal speech. PSYCHIATRIC: Flat affect. Calm and cooperative. Insight and judgement poor. - Urinary Catheter Management Indwelling Temp Sensing Catheter Cath placed during this visit: yes, but has since been removed by the nurse Reason for continuing: Not indwelling catheter Insertion date: 03/12/18 Insertion time: 05:30 Removal date: 03/25/18 Removal time: 18:00 Indwelling Urethral Catheter Cath placed during this visit: yes, but has since been removed by the nurse Reason for continuing: Decision to DC catheter Insertion date: 03/22/18 Insertion time: 17:30 Removal date: 03/25/18 Removal time: 18:00 Condom Cath placed during this visit: yes, but has since been removed by the nurse Reason for continuing: Hourly intake/output Insertion date: 05/13/18 Insertion time: 14:30 Removal date: 03/25/18 Removal time: 18:00 Results - Labs CBC & Chem 7: 06/10/18 05:38 06/08/18 06:16 - Procedures PEG 7 -25 right decompressive craniectomy 03/22/18 with placement of ICP monitor by Dr. Chacko, me'ed 03/23/18 03/22/18 Right frontotemporal parietal decompressive craniectomy and Duroplasty 03/22/18 Left frontal bur hole with placement of an intracranial pressure monitor Assessment and Plan - Assessment (1) Intracranial hemorrhage following injury Code(s): S06.309A - Unspecified focal traumatic brain injury with loss of consciousness of unspecified duration, initial encounter Status: Acute (2) Traumatic brain injury Code(s): S06.9X9A - Unspecified intracranial injury with loss of consciousness of unspecified duration, initial encounter Status: Acute (3) Fall Code(s): W19.XXXA - Unspecified fall, initial encounter Status: Chronic (4) Cocaine abuse Code(s): F14.10 - Cocaine abuse, uncomplicated Status: Chronic (5) ETOH abuse Code(s): F10.10 - Alcohol abuse, uncomplicated Status: Chronic (6) Dysphagia Code(s): R13.10 - Dysphagia, unspecified Status: Acute - Plan 62-year-old male admitted secondary to intracranial hemorrhage 06/10 C/o shortness of breath. Does not appear to be in any respiratory distress. Patient is not tachypneic. He is satting 95% on room air. He is afebrile. Will obtain chest x-ray for further evaluation. Continue to monitor respiratory status. 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 SAH bilat frontal lobes, right parietal, temporal. Right frontotemporal SDH status post emergency craniectomy for decompression for worsening midline shift right to left 2.1 cm s/p Fall, ?syncope Daily alcohol use/Cocaine abuse - s/p Right frontotemporal parietal decompressive craniectomy and Duroplasty by Dr. Chacko. - s/p right cranioplasty 05/13/18, incision healing well. - Continue with PT/OT - PT recommends rehab at discharge - Seizure precautions Palliative care following, appreciate assistance. Per note, patient has improved tremendously. Feels he has capacity to make medical decisions with support of family. Recommended psych consult to assess capacity. Psychiatry consulted, appreciate assistance. - Dr. Narvaez following, appreciate assistance - he still exhibit signs and symptoms of frontal lobe dysfunction, characterized by a lack of insight, awareness and judgment. He wishes the PEG to be d/c'ed but he is not eating appropriately, and as such I would caution against that decision at this time. He is [place] . He continues to lack decision making capacity in my opinion because of his neuropsychological clinical presentation. - Monitor for any seizure activity off of Keppra. Continue on Topamax. Neutropenia, slowly improving -worsening, WBC 2.5, ANC 0.8 -likely due to Fortaz. Fortaz stopped. -Monitor for improvement in white count. -blood smear ordered/pending Headache repeat CT head 04/[address] head 04/26 shows stable exam with large right craniectomy defect and 5 mm midline shift, no hemorrhage CTA head negative -Neurology following, appreciate assistance. Started on Topamax 50mg BID for likely vascular component. Topamax increased 05/18 to 75mg BID. Consider adding Decadron if headache persist -Patient denies any c/o of headache this am Dysphagia Protein calorie malnutrition s/p PEG tube placement 03/30/18 - ST re-evaluated and patient given puree diet with nectar thickened liquids. - Calorie count completed, inadequate intake. 04/20 TF resumed - Jevity 1.5 at 75 mls per hour 12 hours at night 7pm to 7am. - Cement Breaker following, recommends continued nighttime feeding and supplement - Needs assistance with all meals - Patient is requesting PEG tube be removed due to persistent nausea with use. Patient has been refusing PEG tube feedings. Will consult fork truck operator to initiate calorie count. Discussed with Dr. Narvaez and Dr. Newell - patient does not have decision making capacity. 06/09 TF resumed. Acute respiratory failure secondary to failure to protect airway-resolved extubated MRSA pneumonia, status post treatment with IV vancomycin and Rocephin Tobacco abuse Extubated 03/25/2018 - Continue as needed duo nebs - continue to monitor respiratory status - Supplemental oxygen as needed Pseudomonas UTI - completed abx treatment - 06/05 repeat UA positive for Pseudomonas. Treated with Ceftazidime x 3 days, discontinued secondary to neutropenia DVT prophylaxis SCDs No chemoprophylaxis anticoagulation due to recent intracranial bleed Discharge Planning: Difficult placement. No payor source. CM assisting with ongoing discharge plan. (2) Traumatic brain injury Qualifiers: Encounter type: subsequent encounter
[2018-06-10] MEDS: Topiramate 25 MG Tablet PO SCH ×2 (08:30→20:43)
[2018-06-10] MEDS: Senna/Docusate Sodium 8.6/50 MG Tablet PO SCH ×2 (08:31→20:43)
[2018-06-10 08:55] LABS: Eosinophils 2 % (0-4); Lymphocytes 45 % (9-44); Monocytes 11 % (0-8); Platelet Estimate Normal (Normal); Platelet Morphology Normal (Normal)
[2018-06-10 08:56] LABS: RBC Morphology Normal (Normal)
--- NOTE | 2018-06-10 11:44 | P.DIET ---
Nutritional Evaluation Type of nutrition evaluation: follow-up Nutrition consult regarding: Tube Feeding [place] [facility] [place] [facility] [place] Pt requesting PEG removal) Screening comments: Calorie counting completed: 6 meals recorded Subjective Subjective Comments: Pt is eating mostly desserts (pudding, oreo parfait, deng cheesecake cup). Objective - Diagnosis ICH, SAH, Syncope - Objective % IBW: 87 (IBW = 166#) Body Weight Used for Calculations: Actual (65.4 kg) Energy Needs - Lower Range (kCal/kg): 28 Energy Needs - Upper Range (kCal/kg): 33 Lower Limit kCal/kg (kCals): 1,831 Upper Limit kCal/kg (kCals): 2,158 Lower Limit Protein Factor (Grams per Kg): 1.2 Upper Limit Protein Factor (Grams per Kg): 1.5 Lower Protein Needs (Protein): 79 Upper Protein Needs (Protein): 98 Fluid Factor (ml/kg): 28 Estimated Fluid Needs (ml): 1,831 Dietitian Reviewed in Medical Record: Current diet, Curent medications, Intake & Output, Labs, Medical history, Tube feeding, Wound/DTI Diet Order: Mechanical Soft Speech Therapy Recommendations: Yes Objective Comments: PMH: COPD, Asthma, tobacco abuse, daily ETOH use 03/22 R front temporal parietal decompressive craniectomy Integumentary: coccyx pressure injury PEG placement 03/30/1805/13 R frontal temporal parietal cranioplasty Feeding - Current Tube Feeding Tube Feeding Product: Jevity 1.5 Tube Feeding Rate: 75 (mls/hr x 12 hours) Tube Feeding Route: gastrostomy Current kCals Provided by Tube Feedin,350 Current Protein Provided by Tube Feeding (gPRO): 57 Current Free H2O Provided (m/l): 1,003 - Current PO Supplement Current Supplement: Ensure Enlive Current Frequency of Supplement: Three times a day Current kCals Provided by Supplement: 350 Current Protein Provided by Supplement: 20 Supplement Comments: plus Ensure Pudding(= 170 kcal and 4g protein per serving) Assessment Assessment: Pt was extubated on 03/25 and PEG tube placed 03/30. Current diet is mechanical soft with Ensure Enlive and Ensure Pudding added. CBW is 53.1 kg which indicates weight loss since admission. Recommend continue night time TFing to supplement po intake to prevent further nutritional compromise. Recommend increase Jevity 1.5 to 85 mls/hr from 7pm -7am to provide 1530 kcals and 65 gms protein. Pt is still unable to meet nutritional needs with po intake alone. Benefits from full assistance at meals. Goal would be to discontinue TF at some point but pt's po intake is not even close to adequate at this time. Calorie counts indicate the pt's average po intake is ~568 kcals and 28 gms protein. This meets 31% of the low end of kcaloric needs and 35% of protein needs. Recommendations: 1. Diet per ST 2. Continue Jevity 1.5 @ 85 mls/hr x 12 hours at night 3.Continue Ensure Enlive TID 4.Continue Ensure Pudding TID 5. Please provide full assistance at meals Dietitian to Monitor: Lab values, Supplement acceptance, Intake & Output, Diet tolerance, Weight change, PO Intake, Wound/skin status, Medical course
--- NOTE | 2018-06-10 14:24 | XR ---
EXAM DATE: 06/10/2018 12:00 AM EDT AGE/SEX: 63 years / Male INDICATIONS: Dyspnea. CLINICAL DATA: This is the patient's initial encounter. Patient reports that signs and symptoms have been present for 1 day and indicates a pain score of 0/10. MEDICAL/SURGICAL HISTORY: None. Craniotomy. COMPARISON: [facility] [place], CHEST 1V SINGLE AP, 05/17/2018. . FINDINGS: A single AP view of the chest demonstrates the lungs to be symmetrically aerated without evidence of mass, infiltrate or effusion. The cardiomediastinal contours are unremarkable. Thoracic aorta is tor tuous and uncoiled. Mild degenerative changes about the right AC joint. CONCLUSION: Negative for an acute process. Electronically signed by: Raleigh Sosa MD 06/10/2018 2:22 PM EDT
--- NOTE | 2018-06-11 07:15 | P.PN ---
Subjective Interval history: Follow-up on patient with IPH, SAH, SDH. Patient seen and examined. Patient says he feels better today. He denies any chest pain or dyspnea. He denies any cough. He denies any nausea, vomiting or abdominal pain. He says he does not have a headache. DW nursing staff, no adverse events noted overnight. Physical Exam Vital signs: Vital Signs 06/10/18 07:55 06/10/18 12:00 06/10/18 15:41 Temperature 98 F 97.9 F 98 F Pulse Rate 86 84 90 Respiratory Rate 18 18 20 Blood Pressure 120/79 113/80 116/75 Pulse Oximetry 99 99 98 06/10/18 20:00 06/11/18 00:00 06/11/18 04:00 Temperature 97.8 F 98 F 97.4 F L Pulse Rate 78 83 87 Respiratory Rate 20 20 18 Blood Pressure 120/84 125/77 106/70 Pulse Oximetry 98 99 96 Intake & Output 06/10/18 06/11/18 06/11/18 18:59 06:59 18:59 Intake Total 500 / 500 692 / 692 Balance 500 / 500 692 / 692 Weight 53.2 kg Intake: Oral 500 / 500 Tube Feeding 592 / 592 Tube Irrigant 100 / 100 Other: # Incontinent Voids 1 1 Date of Last Bowel Movement 06/09/18 06/11/18 # Incontinent Bowel Movements 1 Narrative: GENERAL: This is a thin, frail, -[place] male patient, INAD. Awake and alert. Appears comfortable. Feeding himself breakfast. SKIN: Warm and dry. No generalized rash. HEENT: s/p right sided cranioplasty. Incision well healed. No sclera injection. No drainage. No nasal drainage. Dry mucus membranes. NECK: Trachea midline. Airway patent. CARDIOVASCULAR: Regular rate and rhythm without murmurs, gallops, or rubs. RESPIRATORY: No accessory muscle use. Breath sounds equal bilaterally. Poor effort, clear to auscultation anteriorly. GASTROINTESTINAL: Abdomen soft, non-tender, nondistended. PEG site C/D/I. MUSCULOSKELETAL: No cyanosis or edema. NEURO: Awake and alert. Moves right upper and lower extremity spontaneously. 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 +Weakness LUE and LLE. Fair strength RLE. Minimal speech. PSYCHIATRIC: Flat affect. Calm and cooperative. Insight and judgement poor. - Urinary Catheter Management Indwelling Temp Sensing Catheter Cath placed during this visit: yes, but has since been removed by the nurse Reason for continuing: Not indwelling catheter Insertion date: 03/12/18 Insertion time: 05:30 Removal date: 03/25/18 Removal time: 18:00 Indwelling Urethral Catheter Cath placed during this visit: yes, but has since been removed by the nurse Reason for continuing: Decision to DC catheter Insertion date: 03/22/18 Insertion time: 17:30 Removal date: 03/25/18 Removal time: 18:00 Condom Cath placed during this visit: yes, but has since been removed by the nurse Reason for continuing: Hourly intake/output Insertion date: 05/13/18 Insertion time: 14:30 Removal date: 03/25/18 Removal time: 18:00 Results - Labs CBC & Chem 7: 06/11/18 07:55 06/08/18 06:16 Laboratory Results - last 24 hr 06/10/18 05:38 WBC 2.6 L RBC 4.08 L Hgb 12.3 L Hct 36.4 L MCV 89.4 MCH 30.1 MCHC 33.6 RDW 14.0 Plt Count 197 MPV 8.1 Prelim Diff (Auto) Slide review pending Neut % (Auto) 32.5 Lymph % (Auto) 51.7 H [place] % (Auto) 9.6 H Eos % (Auto) 5.3 H Baso % (Auto) 0.9 Neut # (Auto) 0.8 L Lymph # (Auto) 1.3 [place] # (Auto) 0.2 Eos # (Auto) 0.1 Baso # (Auto) 0.0 WBC Differential Manual diff final Seg Neuts % (Manual) 40 Lymphocytes % (Manual) 45 H Monocytes % (Manual) 11 H Eosinophils % (Manual) 2 Basophils % (Manual) 2 Abs Neuts (Manual) 1.0 L Differential Comment . Platelet Estimate Normal Platelet Morphology Normal RBC Morphology Normal - Imaging Impressions Chest X-Ray 06/10/18 00:00 CONCLUSION: Negative for an acute process. - Procedures PEG 7 -25 right decompressive craniectomy 03/22/18 with placement of ICP monitor by Dr. Chacko, tx'ed 03/23/18 03/22/18 Right frontotemporal parietal decompressive craniectomy and Duroplasty 03/22/18 Left frontal bur hole with placement of an intracranial pressure monitor Assessment and Plan - Assessment (1) Intracranial hemorrhage following injury Code(s): S06.309A - Unspecified focal traumatic brain injury with loss of consciousness of unspecified duration, initial encounter Status: Acute (2) Traumatic brain injury Code(s): S06.9X9A - Unspecified intracranial injury with loss of consciousness of unspecified duration, initial encounter Status: Acute (3) Fall Code(s): W19.XXXA - Unspecified fall, initial encounter Status: Chronic (4) Cocaine abuse Code(s): F14.10 - Cocaine abuse, uncomplicated Status: Chronic (5) ETOH abuse Code(s): F10.10 - Alcohol abuse, uncomplicated Status: Chronic (6) Dysphagia Code(s): R13.10 - Dysphagia, unspecified Status: Acute - Plan 62-year-old male admitted secondary to intracranial hemorrhage Right frontal IPH 53.3 cm. SAH bilat frontal lobes, right parietal, temporal. Right frontotemporal SDH status post emergency craniectomy for decompression for worsening midline shift right to left 2.1 cm s/p Fall, ?syncope Daily alcohol use/Cocaine abuse - s/p Right frontotemporal parietal decompressive craniectomy and Duroplasty by Dr. Chacko. - s/p right cranioplasty 05/13/18, incision healing well. - Continue with PT/OT - PT recommends rehab at discharge - Seizure precautions Palliative care following, appreciate assistance. Per note, patient has improved tremendously. Feels he has capacity to make medical decisions with support of family. Recommended psych consult to assess capacity. Psychiatry consulted, appreciate assistance. - Dr. Narvaez following, appreciate assistance - he still exhibit signs and symptoms of frontal lobe dysfunction, characterized by a lack of insight, awareness and judgment. He wishes the PEG to be d/c'ed but he is not eating appropriately, and as such I would caution against that decision at this time. He is [place] . He continues to lack decision making capacity in my opinion because of his neuropsychological clinical presentation. - Monitor for any seizure activity off of Keppra. Continue on Topamax. Neutropenia, improved -likely due to Fortaz. Fortaz discontinued. -white count and ANC improved Hypernatremia, resolved -Encourage po fluid intake -monitor Na level Headache repeat CT head 04/[address] head 04/26 shows stable exam with large right craniectomy defect and 5 mm midline shift, no hemorrhage CTA head negative -Neurology following, appreciate assistance. Started on Topamax 50mg BID for likely vascular component. Topamax increased 05/18 to 75mg BID. Consider adding Decadron if headache persist -Patient denies any c/o of headache this am Dysphagia Protein calorie malnutrition s/p PEG tube placement 03/30/18 - ST re-evaluated and patient given puree diet with nectar thickened liquids. - Calorie count completed, inadequate intake. 04/20 TF resumed - Jevity 1.5 at 75 mls per hour 12 hours at night 7pm to 7am. - Crusher Tender following, recommends continued nighttime feeding and supplement - Needs assistance with all meals - Patient is requesting PEG tube be removed due to persistent nausea with use. Patient has been refusing PEG tube feedings. Will consult grainer machine to initiate calorie count. Discussed with Dr. Narvaez and Dr. Newell - patient does not have decision making capacity Acute respiratory failure secondary to failure to protect airway-resolved extubated MRSA pneumonia, status post treatment with IV vancomycin and Rocephin Tobacco abuse Extubated 03/25/201806/10 c/o dyspnea. Satting well. CXR neg, images reviewed by me - Continue as needed duo nebs - continue to monitor respiratory status - Supplemental oxygen as needed Pseudomonas UTI - completed abx treatment - 06/05 repeat UA positive for Pseudomonas. Treated with Ceftazidime, discontinued secondary to neutropenia Hepatitis C - avoid hepatotoxic agents - patient will need to follow up with GI as outpatient DVT prophylaxis SCDs No chemoprophylaxis anticoagulation due to recent intracranial bleed - 06/10 jozef YEPEZ who cleared patient for anticoagulation prophylaxis with Dr. Chacko. Heparin sq started. Code Status: FULL Discussed Condition With: patient, nursing staff Discharge Planning: Difficult placement. No payor source. CM assisting with ongoing discharge plan. (2) Traumatic brain injury Qualifiers: Encounter type: subsequent encounter
[2018-06-11] MEDS: Senna/Docusate Sodium 8.6/50 MG Tablet PO SCH ×2 (08:35→21:25)
[2018-06-11] MEDS: Topiramate 25 MG Tablet PO SCH ×2 (08:35→21:25)
[2018-06-11 09:02] LABS: Baso % (Auto) 0.7 % (0.0-2.0); Eos # (Auto) 0.1 th/mm3 (0.0-0.4); Eos % (Auto) 3.9 % (0.0-4.0); Hematocrit 36.3 % (39.0-51.0); Hemoglobin 11.8 gm/dL (13.0-17.0); Lymph # (Auto) 1.2 th/mm3 (1.0-4.8); Lymph % (Auto) 37.4 % (9.0-44.0); Mean Corpuscular HGB Conc 32.5 % (32.0-36.0); Mean Corpuscular Hemoglobin 29.4 pg (27.0-34.0); Mean Corpuscular Volume 90.3 fL (80.0-100.0); Mean Platelet Volume 7.8 fL (7.0-11.0); Mono # (Auto) 0.4 th/mm3 (0.0-0.9); Mono % (Auto) 11.3 % (0.0-8.0); Neut # (Auto) 1.6 th/mm3 (1.8-7.7); Neut % (Auto) 46.7 % (16.0-70.0); Platelet Count 190 th/mm3 (150-450); Red Blood Count 4.02 mil/mm3 (4.50-5.90); Red Cell Distribution Width 14.1 % (11.6-17.2); White Blood Count 3.3 th/mm3 (4.0-11.0)
[2018-06-11] MEDS: Heparin - SQ 10,000 UNITS/ML Vial SQ SCH (21:24)
--- NOTE | 2018-06-12 08:06 | P.PN ---
Subjective Interval history: Patient doing well, reports that he is tolerating PO, voiding/stooling well. Patient has no current concerns. Physical Exam Vital signs: Vital Signs 06/11/18 12:00 06/11/18 16:00 06/11/18 20:00 Temperature 98.1 F 97.7 F 98.6 F Pulse Rate 87 87 87 Respiratory Rate 18 Blood Pressure 119/71 116/78 122/60 Pulse Oximetry 97 96 97 06/12/18 00:00 06/12/18 04:00 06/12/18 07:59 Temperature 98.5 F 98.2 F 97.9 F Pulse Rate 84 78 84 Respiratory Rate 18 Blood Pressure 116/72 115/73 115/71 Pulse Oximetry 95 95 97 Intake & Output 06/11/18 06/12/18 06/12/18 18:59 06:59 18:59 Intake Total 500 / 500 868 / 868 Balance 500 / 500 868 / 868 Weight 53.5 kg Intake: Oral 500 / 500 Tube Feeding 643 / 643 Tube Irrigant 25 / 25 Water Bolus Amount 200 / 200 Other: # Incontinent Voids 2 Date of Last Bowel Movement 06/11/18 06/11/18 # Incontinent Bowel Movements 1 Narrative: GENERAL: thin, AA male, in NAD, lying comfortable in bed SKIN: Warm and dry. HEENT: s/p right sided cranioplasty. Incision well healed. PERRYULI, DOMINICK NECK: Trachea midline. Airway patent. CARDIOVASCULAR: Regular rate and rhythm without murmurs, gallops, or rubs. RESPIRATORY: CTAx2 GASTROINTESTINAL: Abdomen soft, non-tender, nondistended. PEG site C/D/I. MUSCULOSKELETAL: No cyanosis or edema. 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 +Weakness LUE and LLE. Fair strength RLE. Minimal speech. PSYCHIATRIC: Flat affect. Calm and cooperative. Insight and judgement poor. - Urinary Catheter Management Indwelling Temp Sensing Catheter Cath placed during this visit: yes, but has since been removed by the nurse Reason for continuing: Not indwelling catheter Insertion date: 03/12/18 Insertion time: 05:30 Removal date: 03/25/18 Removal time: 18:00 Indwelling Urethral Catheter Cath placed during this visit: yes, but has since been removed by the nurse Reason for continuing: Decision to DC catheter Insertion date: 03/22/18 Insertion time: 17:30 Removal date: 03/25/18 Removal time: 18:00 Condom Cath placed during this visit: yes, but has since been removed by the nurse Reason for continuing: Hourly intake/output Insertion date: 05/13/18 Insertion time: 14:30 Removal date: 03/25/18 Removal time: 18:00 Results - Labs CBC & Chem 7: 06/12/18 10:35 06/12/18 10:35 Laboratory Results - last 24 hr 06/11/18 07:55 WBC 3.3 L RBC 4.02 L Hgb 11.8 L Hct 36.3 L MCV 90.3 MCH 29.4 MCHC 32.5 RDW 14.1 Plt Count 190 MPV 7.8 Neut % (Auto) 46.7 Lymph % (Auto) 37.4 Eagle % (Auto) 11.3 H Eos % (Auto) 3.9 Baso % (Auto) 0.7 Neut # (Auto) 1.6 L Lymph # (Auto) 1.2 Eagle # (Auto) 0.4 Eos # (Auto) 0.1 Baso # (Auto) 0.0 WBC Differential . Differential Comment Auto diff final - Procedures PEG 7 -25 right decompressive craniectomy 03/22/18 with placement of ICP monitor by Dr. Chacko, ga'ed 03/23/18 03/22/18 Right frontotemporal parietal decompressive craniectomy and Duroplasty 03/22/18 Left frontal bur hole with placement of an intracranial pressure monitor Assessment and Plan - Assessment (1) Intracranial hemorrhage following injury Code(s): S06.309A - Unspecified focal traumatic brain injury with loss of consciousness of unspecified duration, initial encounter Status: Acute (2) Traumatic brain injury Code(s): S06.9X9A - Unspecified intracranial injury with loss of consciousness of unspecified duration, initial encounter Status: Acute (3) Fall Code(s): W19.XXXA - Unspecified fall, initial encounter Status: Chronic (4) Cocaine abuse Code(s): F14.10 - Cocaine abuse, uncomplicated Status: Chronic (5) ETOH abuse Code(s): F10.10 - Alcohol abuse, uncomplicated Status: Chronic (6) Dysphagia Code(s): R13.10 - Dysphagia, unspecified Status: Acute - Plan This is a 62-year-old AAM with PMHx of Hep C admitted due to intracranial hemorrhage, admitted on 03/03 and now pending placement 1. 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 SAH bilat frontal lobes, right parietal, temporal. Right frontotemporal SDH status post emergency craniectomy for decompression for worsening midline shift right to left 2.1 cm Daily alcohol use/Cocaine abuse - s/p Right frontotemporal parietal decompressive craniectomy and Duroplasty by Dr. Chacko. - s/p right cranioplasty 05/13/18, incision healing well. - Continue with PT/OT - PT recommends rehab at discharge - Seizure precautions -Palliative care following, appreciate assistance. Per note, patient has improved tremendously. Feels he has capacity to make medical decisions with support of family. Recommended psych consult to assess capacity. Psychiatry consulted, appreciate assistance. - Dr. Narvaez following, appreciate assistance - he still exhibit signs and symptoms of frontal lobe dysfunction, characterized by a lack of insight, awareness and judgment. He wishes the PEG to be d/c'ed but he is not eating appropriately, and as such I would caution against that decision at this time. He is [place] . He continues to lack decision making capacity in my opinion because of his neuropsychological clinical presentation. - Monitor for any seizure activity off of Keppra. Continue on Topamax. 2. Neutropenia, improved -pending AM labs -likely due to Fortaz. Fortaz discontinued. -white count and ANC improved 3. Hypernatremia, resolved Na 143 today Encourage po fluid intake F/u BMP in AM 4. Headache Repeat CT head 04/[address] head 04/26 shows stable exam with large right craniectomy defect and 5 mm midline shift, no hemorrhage CTA head negative Neurology following, appreciate assistance. Started on Topamax 50mg BID for likely vascular component. Topamax increased 05/18 to 75mg BID. Consider adding Decadron if headache persist Patient denies any c/o of headache this am 5. Dysphagia Protein calorie malnutrition s/p PEG tube placement 03/30/18 - ST re-evaluated and patient given puree diet with nectar thickened liquids. - Calorie count completed, inadequate intake. 04/20 TF resumed - Jevity 1.5 at 75 mls per hour 12 hours at night 7pm to 7am. - Gum Cook following, recommends continued nighttime feeding and supplement - Needs assistance with all meals - Patient is requesting PEG tube be removed due to persistent nausea with use. Patient has been refusing PEG tube feedings. Will consult count room clerk to initiate calorie count. Discussed with Dr. Narvaez and Dr. Newell - patient does not have decision making capacity 6. Acute respiratory failure secondary to failure to protect airway-resolved, s/ p extubation 03/25 MRSA pneumonia, status post treatment with IV vancomycin and Rocephin 7. Pseudomonas UTI - s/p abx treatment - 06/05 repeat UA positive for Pseudomonas., treated with Ceftazidime, discontinued secondary to neutropenia - Rpt Urine Cx obtained today, if still + consult ID for reccs 8. Hepatitis C - Avoid hepatotoxic agents - Patient will need to follow up with GI as outpatient 9. DVT prophylaxis: Heparin (on 06/10 dw Brian YEPEZ who cleared patient for anticoagulation prophylaxis with Dr. Chacko) 10. Dispo: pending placement and AM CBC Code Status: full Discussed Condition With: patient, RN (2) Traumatic brain injury Qualifiers: Encounter type: subsequent encounter
[2018-06-12] MEDS: Senna/Docusate Sodium 8.6/50 MG Tablet PO SCH ×2 (08:30→21:22)
[2018-06-12] MEDS: Heparin - SQ 10,000 UNITS/ML Vial SQ SCH ×2 (08:30→21:22)
[2018-06-12] MEDS: Topiramate 25 MG Tablet PO SCH ×2 (08:30→21:21)
[2018-06-12 11:34] LABS: Baso % (Auto) 0.8 % (0.0-2.0); Eos # (Auto) 0.1 th/mm3 (0.0-0.4); Eos % (Auto) 4.4 % (0.0-4.0); Hemoglobin 12.2 gm/dL (13.0-17.0); Lymph # (Auto) 1.4 th/mm3 (1.0-4.8); Lymph % (Auto) 42.1 % (9.0-44.0); Mean Corpuscular HGB Conc 32.1 % (32.0-36.0); Mean Corpuscular Hemoglobin 29.3 pg (27.0-34.0); Mean Corpuscular Volume 91.2 fL (80.0-100.0); Mean Platelet Volume 8.3 fL (7.0-11.0); Mono # (Auto) 0.3 th/mm3 (0.0-0.9); Mono % (Auto) 9.4 % (0.0-8.0); Neut # (Auto) 1.4 th/mm3 (1.8-7.7); Neut % (Auto) 43.3 % (16.0-70.0); Platelet Count 168 th/mm3 (150-450); Red Blood Count 4.16 mil/mm3 (4.50-5.90); White Blood Count 3.3 th/mm3 (4.0-11.0)
[2018-06-12 11:50] LABS: Anion Gap 11 meq/L (5-15); Aspartate Aminotransferase 18 U/L (15-37); Blood Urea Nitrogen 16 mg/dL (7-18); Calcium 8.6 mg/dL (8.5-10.1); Carbon Dioxide 24.5 meq/L (21.0-32.0); Chloride 108 meq/L (98-107); Glomerular Filtration Rate Greater Than 89 mL/min (>89); Glucose,Random 172 mg/dL (74-106); Potassium 3.6 meq/L (3.5-5.1); Sodium 143 meq/L (136-145)
[2018-06-12 11:54] LABS: Alanine Aminotransferase 12 U/L (12-78); Alkaline Phosphatase 67 U/L (45-117); Total Protein 7.5 g/dL (6.4-8.2)
[2018-06-13 08:28] LABS: Baso % (Auto) 0.7 % (0.0-2.0); Eos # (Auto) 0.1 th/mm3 (0.0-0.4); Eos % (Auto) 5.6 % (0.0-4.0); Hematocrit 37.5 % (39.0-51.0); Hemoglobin 12.2 gm/dL (13.0-17.0); Lymph # (Auto) 1.4 th/mm3 (1.0-4.8); Mean Corpuscular HGB Conc 32.5 % (32.0-36.0); Mean Corpuscular Hemoglobin 29.5 pg (27.0-34.0); Mean Corpuscular Volume 90.9 fL (80.0-100.0); Mono # (Auto) 0.3 th/mm3 (0.0-0.9); Mono % (Auto) 10.3 % (0.0-8.0); Neut # (Auto) 0.8 th/mm3 (1.8-7.7); Neut % (Auto) 30.4 % (16.0-70.0); Platelet Count 177 th/mm3 (150-450); Red Blood Count 4.13 mil/mm3 (4.50-5.90); Red Cell Distribution Width 14.3 % (11.6-17.2); White Blood Count 2.6 th/mm3 (4.0-11.0)
[2018-06-13 08:34] LABS: Albumin 3.1 g/dL (3.4-5.0); Anion Gap 11 meq/L (5-15); Aspartate Aminotransferase 19 U/L (15-37); Blood Urea Nitrogen 18 mg/dL (7-18); Calcium 8.7 mg/dL (8.5-10.1); Carbon Dioxide 26.1 meq/L (21.0-32.0); Chloride 108 meq/L (98-107); Glomerular Filtration Rate Greater Than 89 mL/min (>89); Glucose,Random 122 mg/dL (74-106); Potassium 3.9 meq/L (3.5-5.1); Sodium 145 meq/L (136-145)
[2018-06-13 08:38] LABS: Alanine Aminotransferase 13 U/L (12-78); Alkaline Phosphatase 68 U/L (45-117); Total Protein 7.4 g/dL (6.4-8.2)
[2018-06-13] MEDS: Topiramate 25 MG Tablet PO SCH ×2 (09:31→22:14)
[2018-06-13] MEDS: Heparin - SQ 10,000 UNITS/ML Vial SQ SCH ×2 (09:31→22:14)
[2018-06-13] MEDS: Senna/Docusate Sodium 8.6/50 MG Tablet PO SCH ×2 (09:31→22:14)
[2018-06-13 09:32] LABS: Eosinophils 5 % (0-4); Lymphocytes 49 % (9-44); Monocytes 12 % (0-8); Platelet Estimate Normal (Normal); Platelet Morphology Normal (Normal); RBC Morphology Normal (Normal)
--- NOTE | 2018-06-13 11:17 | P.PN ---
Subjective Interval history: Follow-up visit IPH, SAH, SDH, poor appetite. Patient seen and examined today laying in bed. States he is doing okay. Minimal verbalization. As per nursing , patient declines to take some of his medication but was encouraged to do so. Poor appetite. Discussed with patient that if he starts eating well we can remove the PEG tube and he starts talking that he will try his best and will eat more. States he does not like Ensure but if he could have juices he will take it. We will switch over to enlive. Denies pain and discomfort. Denies SOB/ dyspnea. Denies chest pain. Denies fevers, chills, n/v/d. Denies dysuria. Physical Exam Vital signs: Vital Signs 06/12/18 12:00 06/12/18 16:00 06/12/18 20:00 Temperature 98.1 F 97.7 F 98.4 F Pulse Rate 93 H 80 72 Respiratory Rate 16 18 18 Blood Pressure 117/75 114/65 137/80 Pulse Oximetry 95 96 99 06/13/18 00:00 06/13/18 04:00 06/13/18 08:00 Temperature 98.2 F 98 F 98 F Pulse Rate 67 69 82 Respiratory Rate 18 18 20 Blood Pressure 132/78 127/76 116/58 L Pulse Oximetry 99 99 98 Intake & Output 06/12/18 06/13/18 06/13/18 18:59 06:59 18:59 Intake Total 240 / 240 1131 / 1131 Output Total 3 / 3 Balance 240 / 240 1131 / 1131 -3 / -3 Weight 53.2 kg Intake: Oral 240 / 240 Tube Feeding 881 / 881 Tube Irrigant 50 / 50 Water Bolus Amount 200 / 200 Output: Urine 2 / 2 Stool / Other: # Incontinent Voids 2 Date of Last Bowel Movement 06/12/18 06/12/18 06/12/18 Narrative: GENERAL: thin, AA male, in NAD, lying comfortable in bed SKIN: Warm and dry. HEENT: s/p right sided cranioplasty. Incision well healed. DOMINICK PAZ NECK: Trachea midline. Airway patent. CARDIOVASCULAR: Regular rate and rhythm without murmurs, gallops, or rubs. RESPIRATORY: CTAx2 GASTROINTESTINAL: Abdomen soft, non-tender, nondistended. PEG site C/D/I. MUSCULOSKELETAL: No cyanosis or edema. 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 +Weakness LUE and LLE. Fair strength RLE. Minimal speech. PSYCHIATRIC: Flat affect. Calm and cooperative. - Urinary Catheter Management Indwelling Temp Sensing Catheter Cath placed during this visit: yes, but has since been removed by the nurse Reason for continuing: Not indwelling catheter Insertion date: 03/12/18 Insertion time: 05:30 Removal date: 03/25/18 Removal time: 18:00 Indwelling Urethral Catheter Cath placed during this visit: yes, but has since been removed by the nurse Reason for continuing: Decision to DC catheter Insertion date: 03/22/18 Insertion time: 17:30 Removal date: 03/25/18 Removal time: 18:00 Condom Cath placed during this visit: yes, but has since been removed by the nurse Reason for continuing: Hourly intake/output Insertion date: 05/13/18 Insertion time: 14:30 Removal date: 03/25/18 Removal time: 18:00 Results - Labs CBC & Chem 7: 06/13/18 06:47 06/13/18 06:47 Laboratory Results - last 24 hr 06/12/18 06/12/18 06/13/18 10:35 10:35 06:47 WBC 3.3 L 2.6 L RBC 4.16 L 4.13 L Hgb 12.2 L 12.2 L Hct 38.0 L 37.5 L MCV 91.2 90.9 MCH 29.3 29.5 MCHC 32.1 32.5 RDW 14.0 14.3 Plt Count 168 177 MPV 8.3 8.0 Prelim Diff (Auto) Slide review pending Neut % (Auto) 43.3 30.4 Lymph % (Auto) 42.1 53.0 H Mobile % (Auto) 9.4 H 10.3 H Eos % (Auto) 4.4 H 5.6 H Baso % (Auto) 0.8 0.7 Neut # (Auto) 1.4 L 0.8 L Lymph # (Auto) 1.4 1.4 Mobile # (Auto) 0.3 0.3 Eos # (Auto) 0.1 0.1 Baso # (Auto) 0.0 0.0 WBC Differential . Manual diff final Seg Neuts % (Manual) 34 Lymphocytes % (Manual) 49 H Monocytes % (Manual) 12 H Eosinophils % (Manual) 5 H Abs Neuts (Manual) 0.9 L Differential Comment Auto diff final . Platelet Estimate Normal Platelet Morphology Normal RBC Morphology Normal Sodium 143 Potassium 3.6 Chloride 108 H Carbon Dioxide 24.5 Anion Gap 11 BUN 16 Creatinine 0.71 Estimated GFR Greater than 89 POC Glucose Random Glucose 172 H Calcium 8.6 Total Bilirubin 0.2 AST 18 ALT 12 Alkaline Phosphatase 67 Total Protein 7.5 Albumin 3.0 L 06/13/18 06/13/18 06:47 07:14 WBC RBC Hgb Hct MCV MCH MCHC RDW Plt Count MPV Prelim Diff (Auto) Neut % (Auto) Lymph % (Auto) Mobile % (Auto) Eos % (Auto) Baso % (Auto) Neut # (Auto) Lymph # (Auto) Mobile # (Auto) Eos # (Auto) Baso # (Auto) WBC Differential Seg Neuts % (Manual) Lymphocytes % (Manual) Monocytes % (Manual) Eosinophils % (Manual) Abs Neuts (Manual) Differential Comment Platelet Estimate Platelet Morphology RBC Morphology Sodium 145 Potassium 3.9 Chloride 108 H Carbon Dioxide 26.1 Anion Gap 11 BUN 18 Creatinine 0.72 Estimated GFR Greater than 89 POC Glucose 99 Random Glucose 122 H Calcium 8.7 Total Bilirubin 0.1 L AST 19 ALT 13 Alkaline Phosphatase 68 Total Protein 7.4 Albumin 3.1 L - Procedures PEG 7 -25 right decompressive craniectomy 03/22/18 with placement of ICP monitor by Dr. Chacko, ga'ed 03/23/18 03/22/18 Right frontotemporal parietal decompressive craniectomy and Duroplasty 03/22/18 Left frontal bur hole with placement of an intracranial pressure monitor Assessment and Plan - Assessment (1) Intracranial hemorrhage following injury Code(s): S06.309A - Unspecified focal traumatic brain injury with loss of consciousness of unspecified duration, initial encounter Status: Acute (2) Traumatic brain injury Code(s): S06.9X9A - Unspecified intracranial injury with loss of consciousness of unspecified duration, initial encounter Status: Acute (3) Fall Code(s): W19.XXXA - Unspecified fall, initial encounter Status: Chronic (4) Cocaine abuse Code(s): F14.10 - Cocaine abuse, uncomplicated Status: Chronic (5) ETOH abuse Code(s): F10.10 - Alcohol abuse, uncomplicated Status: Chronic (6) Dysphagia Code(s): R13.10 - Dysphagia, unspecified Status: Acute - Plan 62-year-old male admitted secondary to intracranial hemorrhage Right frontal IPH 53.3 cm. SAH bilat frontal lobes, right parietal, temporal. Right frontotemporal SDH status post emergency craniectomy for decompression for worsening midline shift right to left 2.1 cm s/p Fall, ?syncope Daily alcohol use/Cocaine abuse -s/p Right frontotemporal parietal decompressive craniectomy and Duroplasty by Dr. Chacko. -s/p right cranioplasty 05/13/18, incision healing well. -Continue with PT/OT - PT recommends rehab at discharge -Seizure precautions -Palliative care following, appreciate assistance. Per note, patient has improved tremendously. Feels he has capacity to make medical decisions with support of family. Recommended psych consult to assess capacity. Psychiatry consulted, appreciate assistance. -Neuropsychiatry, Dr. Narvaez following, appreciate assistance - he still exhibit signs and symptoms of frontal lobe dysfunction, lack of insight, awareness and judgment. He wishes the PEG to be d/c'ed but he is not eating appropriately, and as such I would caution against that decision at this time. He is [place] . He continues to lack decision making capacity in my opinion because of his neuropsychological clinical presentation. -Monitor for any seizure activity off of Keppra. Continue on Topamax. Neutropenia, improved -likely due to Fortaz. Fortaz discontinued. -Cont to monitor Hypernatremia, resolved -Encourage po fluid intake -monitor Na level Headache -repeat CT head 04/04 showed improvement -repeat CT head 04/26 shows stable exam with large right craniectomy defect and 5 mm midline shift, no hemorrhage -CTA head negative -Neurology following, appreciate assistance. Started on Topamax 50mg BID for likely vascular component. Topamax increased 05/18 to 75mg BID. Consider adding Decadron if headache persist -Patient denies any c/o of headache Dysphagia Protein calorie malnutrition s/p PEG tube placement 03/30/18 -ST re-evaluated and patient given puree diet with nectar thickened liquids. -Calorie count completed, inadequate intake. 04/20 TF resumed - Jevity 1.5 at 75 mls per hour 12 hours at night 7pm to 7am. -Manager Of Exhibitions And Collections following, recommends continued nighttime feeding and supplement -Needs assistance with all meals -Patient is requesting PEG tube be removed due to persistent nausea with use. Patient has been refusing PEG tube feedings. Will consult search marketing specialist to initiate calorie count. As per Dr. Narvaez and Dr. Newlel - patient does not have decision making capacity. -Continue to encourage PO intake. Start Enlive. Acute respiratory failure secondary to failure to protect airway-resolved extubated MRSA pneumonia, status post treatment with IV vancomycin and Rocephin Tobacco abuse Extubated 03/25/201806/10 c/o dyspnea. Satting well. CXR neg, images reviewed by me -Continue as needed duo nebs -continue to monitor respiratory status -Supplemental oxygen as needed Pseudomonas UTI -completed abx treatment -06/05 repeat UA positive for Pseudomonas. Treated with Ceftazidime, discontinued secondary to neutropenia Hepatitis C -avoid hepatotoxic agents -patient will need to follow up with GI as outpatient DVT prophylaxis SCDs No chemoprophylaxis anticoagulation due to recent intracranial bleed - 06/10 jozef YEPEZ who cleared patient for anticoagulation prophylaxis with Dr. Chacko. Heparin sq started. Code Status: Full code Discussed Condition With: Patient, nurse Discharge Planning: No payer source. CM following (2) Traumatic brain injury Qualifiers: Encounter type: subsequent encounter
[2018-06-13] MEDS: Melatonin 5 MG Tablet PO PRN (22:13)
[2018-06-14] MEDS: Topiramate 25 MG Tablet PO SCH ×2 (09:19→22:35)
[2018-06-14] MEDS: Senna/Docusate Sodium 8.6/50 MG Tablet PO SCH ×2 (09:20→22:50)
[2018-06-14] MEDS: Heparin - SQ 10,000 UNITS/ML Vial SQ SCH ×3 (09:21→22:49)
--- NOTE | 2018-06-14 10:10 | P.PN ---
Subjective Interval history: Follow-up visit IPH, SAH, SDH, poor appetite. Patient seen and examined today laying in bed. States he is doing okay. Continues to have poor appetite. He is eating well but apparently he is not really eating okay. Denies pain and discomfort. Denies SOB/ dyspnea. Denies chest pain. Denies fevers, chills, n/v /d. Denies dysuria. Physical Exam Vital signs: Vital Signs 06/13/18 12:00 06/13/18 16:00 06/13/18 20:00 Temperature 97.4 F L 97.6 F 97.7 F Pulse Rate 83 111 H 89 Respiratory Rate 20 20 18 Blood Pressure 111/75 112/85 124/81 Pulse Oximetry 95 98 98 06/13/18 22:13 06/14/18 00:00 06/14/18 04:00 Temperature 98.0 F 97.7 F Pulse Rate 90 80 Respiratory Rate 18 18 20 Blood Pressure 117/79 113/74 Pulse Oximetry 96 98 06/14/18 08:00 Temperature 97.5 F L Pulse Rate 82 Respiratory Rate 20 Blood Pressure 105/72 Pulse Oximetry 97 Intake & Output 06/13/18 06/14/18 06/14/18 18:59 06:59 18:59 Intake Total 720 / 720 244 / 244 Output Total 4 / 4 Balance 716 / 716 244 / 244 Weight 51.9 kg 52.2 kg Intake: Oral 720 / 720 240 / 240 Oral Supplement 0 / 0 Anesthesia Amount 0 / 0 Other 4 / 4 Output: Urine 2 / 2 Stool 2 / 2 Other: Other Intake Source Saline Solution # Incontinent Voids 2 1 Date of Last Bowel Movement 06/13/18 06/13/18 06/13/18 # Incontinent Bowel Movements 1 Narrative: GENERAL: thin, AA male, in NAD, lying comfortable in bed SKIN: Warm and dry. HEENT: s/p right sided cranioplasty. Incision well healed. DOMINICK PAZ NECK: Trachea midline. Airway patent. CARDIOVASCULAR: Regular rate and rhythm without murmurs, gallops, or rubs. RESPIRATORY: CTAx2 GASTROINTESTINAL: Abdomen soft, non-tender, nondistended. PEG site C/D/I. MUSCULOSKELETAL: No cyanosis or edema. 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 +Weakness LUE and LLE. Fair strength RLE. Minimal speech. PSYCHIATRIC: Flat affect. Calm and cooperative. - Urinary Catheter Management Indwelling Temp Sensing Catheter Cath placed during this visit: yes, but has since been removed by the nurse Reason for continuing: Not indwelling catheter Insertion date: 03/12/18 Insertion time: 05:30 Removal date: 03/25/18 Removal time: 18:00 Indwelling Urethral Catheter Cath placed during this visit: yes, but has since been removed by the nurse Reason for continuing: Decision to DC catheter Insertion date: 03/22/18 Insertion time: 17:30 Removal date: 03/25/18 Removal time: 18:00 Condom Cath placed during this visit: yes, but has since been removed by the nurse Reason for continuing: Hourly intake/output Insertion date: 05/13/18 Insertion time: 14:30 Removal date: 03/25/18 Removal time: 18:00 Results - Labs CBC & Chem 7: 06/13/18 06:47 06/13/18 06:47 Laboratory Results - last 24 hr 06/13/18 11:23 POC Glucose 101 Microbiology 06/12/18 09:23 Clean Catch Urine Urine Culture - Preliminary Enterococcus faecalis Pseudomonas species - Procedures PEG 7 -25 right decompressive craniectomy 03/22/18 with placement of ICP monitor by Dr. Chacko, tn'ed 03/23/18 03/22/18 Right frontotemporal parietal decompressive craniectomy and Duroplasty 03/22/18 Left frontal bur hole with placement of an intracranial pressure monitor Assessment and Plan - Assessment (1) Intracranial hemorrhage following injury Code(s): S06.309A - Unspecified focal traumatic brain injury with loss of consciousness of unspecified duration, initial encounter Status: Acute (2) Traumatic brain injury Code(s): S06.9X9A - Unspecified intracranial injury with loss of consciousness of unspecified duration, initial encounter Status: Acute (3) Fall Code(s): W19.XXXA - Unspecified fall, initial encounter Status: Chronic (4) Cocaine abuse Code(s): F14.10 - Cocaine abuse, uncomplicated Status: Chronic (5) ETOH abuse Code(s): F10.10 - Alcohol abuse, uncomplicated Status: Chronic (6) Dysphagia Code(s): R13.10 - Dysphagia, unspecified Status: Acute - Plan 62-year-old male admitted secondary to intracranial hemorrhage Right frontal IPH 53.3 cm. SAH bilat frontal lobes, right parietal, temporal. Right frontotemporal SDH status post emergency craniectomy for decompression for worsening midline shift right to left 2.1 cm s/p Fall, ?syncope Daily alcohol use/Cocaine abuse -s/p Right frontotemporal parietal decompressive craniectomy and Duroplasty by Dr. Chacko. -s/p right cranioplasty 05/13/18, incision healing well. -Continue with PT/OT - PT recommends rehab at discharge -Seizure precautions -Palliative care following, appreciate assistance. Per note, patient has improved tremendously. Feels he has capacity to make medical decisions with support of family. Recommended psych consult to assess capacity. Psychiatry consulted, appreciate assistance. -Neuropsychiatry, Dr. Narvaez following, appreciate assistance - he still exhibit signs and symptoms of frontal lobe dysfunction, lack of insight, awareness and judgment. He wishes the PEG to be d/c'ed but he is not eating appropriately, and as such I would caution against that decision at this time. He is [place] . He continues to lack decision making capacity in my opinion because of his neuropsychological clinical presentation. -Monitor for any seizure activity off of Keppra. Continue on Topamax. Neutropenia -likely due to Fortaz. Fortaz discontinued. -Cont to monitor Hypernatremia, resolved -Encourage po fluid intake -monitor Na level Headache -repeat CT head 04/04 showed improvement -repeat CT head 04/26 shows stable exam with large right craniectomy defect and 5 mm midline shift, no hemorrhage -CTA head negative -Neurology following, appreciate assistance. Started on Topamax 50mg BID for likely vascular component. Topamax increased 05/18 to 75mg BID. Consider adding Decadron if headache persist -Patient denies any c/o of headache Dysphagia Protein calorie malnutrition s/p PEG tube placement 03/30/18 -ST re-evaluated and patient given puree diet with nectar thickened liquids. -Calorie count completed, inadequate intake. 04/20 TF resumed - Jevity 1.5 at 75 mls per hour 12 hours at night 7pm to 7am. -Router Machine Operator following, recommends continued nighttime feeding and supplement -Needs assistance with all meals -Patient is requesting PEG tube be removed due to persistent nausea with use. Patient has been refusing PEG tube feedings. Will consult fisher clam to initiate calorie count. As per Dr. Narvaez and Dr. Newell - patient does not have decision making capacity. -Continue to encourage PO intake. Start Enlive. Acute respiratory failure secondary to failure to protect airway-resolved extubated MRSA pneumonia, status post treatment with IV vancomycin and Rocephin Tobacco abuse Extubated 03/25/2018 -CXR negative -Continue as needed duo nebs -continue to monitor respiratory status -Supplemental oxygen as needed -On RA tolerating Pseudomonas UTI -completed abx treatment -06/05 repeat UA positive for Pseudomonas. Treated with Ceftazidime, discontinued secondary to neutropenia Hepatitis C -avoid hepatotoxic agents -patient will need to follow up with GI as outpatient DVT prophylaxis SCDs No chemoprophylaxis anticoagulation due to recent intracranial bleed - 06/10 cleared patient for anticoagulation prophylaxis by neurosx. Heparin sq started. Refusing at times. Discharge Planning: No payer source. CM following (2) Traumatic brain injury Qualifiers: Encounter type: subsequent encounter
[2018-06-14] MEDS: Ciprofloxacin 500 MG Tablet NG/OG SCH (22:35)
--- NOTE | 2018-06-15 09:28 | P.PN ---
Subjective Interval history: Follow-up visit IPH, SAH, SDH, poor appetite. Patient seen and examined today laying in bed. States he is doing okay. Denies pain and discomfort. Denies SOB/ dyspnea. Denies chest pain. Denies fevers, chills, n/v/d. No acute issues overnight as per nursing. Physical Exam Vital signs: Vital Signs 06/14/18 12:00 06/14/18 16:00 06/14/18 20:00 Temperature 98.0 F 98.5 F 99.2 F Pulse Rate 83 79 87 Respiratory Rate 20 20 18 Blood Pressure 120/74 110/69 109/74 Pulse Oximetry 98 98 93 L 06/15/18 00:00 06/15/18 04:00 Temperature 98.0 F 98.1 F Pulse Rate 82 80 Respiratory Rate 18 18 Blood Pressure 119/75 120/70 Pulse Oximetry 97 96 Intake & Output 06/14/18 06/15/18 06/15/18 18:59 06:59 18:59 Intake Total 1615 / 1615 Output Total 5 / 5 Balance 1610 / 1610 Weight 52.2 kg 58.8 kg Intake: Oral 480 / 480 Oral Supplement 0 / 0 Tube Feeding 881 / 881 Tube Irrigant 50 / 50 Water Bolus Amount 200 / 200 Anesthesia Amount 0 / 0 Other 4 / 4 Output: Urine 2 / 2 Stool 1 / 1 Urine/Stool Mix 2 / 2 Other: Post Void Residual 0 Other Intake Source Saline Solution # Voids 2 # Incontinent Voids 1 2 # Urine Diapers 3 Date of Last Bowel Movement 06/13/18 06/14/18 # Bowel Movements 2 # Incontinent Bowel Movements 1 1 Narrative: GENERAL: thin, AA male, in NAD, lying comfortable in bed SKIN: Warm and dry. HEENT: s/p right sided cranioplasty. Incision well healed. PERRYULI, DOMINICK NECK: Trachea midline. Airway patent. CARDIOVASCULAR: Regular rate and rhythm without murmurs, gallops, or rubs. RESPIRATORY: CTAx2 GASTROINTESTINAL: Abdomen soft, non-tender, nondistended. PEG site C/D/I. MUSCULOSKELETAL: No cyanosis or edema. 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 +Weakness LUE and LLE. Fair strength RLE. Minimal speech. PSYCHIATRIC: Flat affect. Calm and cooperative. - Urinary Catheter Management Indwelling Temp Sensing Catheter Cath placed during this visit: yes, but has since been removed by the nurse Reason for continuing: Not indwelling catheter Insertion date: 03/12/18 Insertion time: 05:30 Removal date: 03/25/18 Removal time: 18:00 Indwelling Urethral Catheter Cath placed during this visit: yes, but has since been removed by the nurse Reason for continuing: Decision to DC catheter Insertion date: 03/22/18 Insertion time: 17:30 Removal date: 03/25/18 Removal time: 18:00 Condom Cath placed during this visit: yes, but has since been removed by the nurse Reason for continuing: Hourly intake/output Insertion date: 05/13/18 Insertion time: 14:30 Removal date: 03/25/18 Removal time: 18:00 Results - Labs CBC & Chem 7: 06/13/18 06:47 06/13/18 06:47 Microbiology 06/12/18 09:23 Clean Catch Urine Urine Culture - Preliminary Enterococcus faecalis Pseudomonas species - Procedures PEG 7 -25 right decompressive craniectomy 03/22/18 with placement of ICP monitor by Dr. Chacko, wa'ed 03/23/18 03/22/18 Right frontotemporal parietal decompressive craniectomy and Duroplasty 03/22/18 Left frontal bur hole with placement of an intracranial pressure monitor Assessment and Plan - Assessment (1) Intracranial hemorrhage following injury Code(s): S06.309A - Unspecified focal traumatic brain injury with loss of consciousness of unspecified duration, initial encounter Status: Acute (2) Traumatic brain injury Code(s): S06.9X9A - Unspecified intracranial injury with loss of consciousness of unspecified duration, initial encounter Status: Acute (3) Fall Code(s): W19.XXXA - Unspecified fall, initial encounter Status: Chronic (4) Cocaine abuse Code(s): F14.10 - Cocaine abuse, uncomplicated Status: Chronic (5) ETOH abuse Code(s): F10.10 - Alcohol abuse, uncomplicated Status: Chronic (6) Dysphagia Code(s): R13.10 - Dysphagia, unspecified Status: Acute - Plan 62-year-old male admitted secondary to intracranial hemorrhage Right frontal IPH 53.3 cm. SAH bilat frontal lobes, right parietal, temporal. Right frontotemporal SDH Status post emergency craniectomy for decompression for worsening midline shift right to left 2.1 cm s/p Fall, ?syncope HX Daily alcohol use/Cocaine abuse TBI -debility. -s/p Right frontotemporal parietal decompressive craniectomy and Duroplasty by Dr. Chacko. -s/p right cranioplasty 05/13/18, incision healing well. -Continue with PT/OT - PT recommends rehab at discharge -Seizure precautions -Palliative care following, appreciate assistance. Per note, patient has improved tremendously. Feels he has capacity to make medical decisions with support of family. Recommended psych consult to assess capacity. Psychiatry consulted, appreciate assistance. -Neuropsychiatry, Dr. Narvaez following, appreciate assistance - he still exhibit signs and symptoms of frontal lobe dysfunction, lack of insight, awareness and judgment. He wishes the PEG to be d/c'ed but he is not eating appropriately, and as such I would caution against that decision at this time. He is [place] . He continues to lack decision making capacity in my opinion because of his neuropsychological clinical presentation. -Monitor for any seizure activity off of Keppra. Continue on Topamax. Neutropenia -likely due to Fortaz. Fortaz discontinued. -Cont to monitor Hypernatremia, resolved -Encourage po fluid intake -monitor Na level Headache -repeat CT head 04/04 showed improvement -repeat CT head 04/26 shows stable exam with large right craniectomy defect and 5 mm midline shift, no hemorrhage -CTA head negative -Neurology following, appreciate assistance. Started on Topamax 50mg BID for likely vascular component. Topamax increased 05/18 to 75mg BID. Consider adding Decadron if headache persist -Patient denies any c/o of headache Dysphagia Protein calorie malnutrition s/p PEG tube placement 03/30/18 -ST re-evaluated and patient given puree diet with nectar thickened liquids. -Calorie count completed, inadequate intake. 04/20 TF resumed - Jevity 1.5 at 75 mls per hour 12 hours at night 7pm to 7am. -Family And Consumer Science Professor following, recommends continued nighttime feeding and supplement -Needs assistance with all meals -Patient is requesting PEG tube be removed due to persistent nausea with use. Patient has been refusing PEG tube feedings. Will consult fleet administrative assistant to initiate calorie count. As per Dr. Narvaez and Dr. Newell - patient does not have decision making capacity. -Continue to encourage PO intake. Start Enlive. Acute respiratory failure secondary to failure to protect airway-resolved extubated MRSA pneumonia, status post treatment with IV vancomycin and Rocephin Tobacco abuse Extubated 03/25/2018 -CXR negative -Continue as needed duo nebs -continue to monitor respiratory status -Supplemental oxygen as needed -On RA tolerating Pseudomonas UTI -completed abx treatment -06/05 repeat UA positive for Pseudomonas. Treated with Ceftazidime, discontinued secondary to neutropenia Hepatitis C -avoid hepatotoxic agents -patient will need to follow up with GI as outpatient DVT prophylaxis SCDs No chemoprophylaxis anticoagulation due to recent intracranial bleed - 06/10 cleared patient for anticoagulation prophylaxis by neurosx. Heparin sq started. Refusing at times. Discharge Planning: No payer source. CM following (2) Traumatic brain injury Qualifiers: Encounter type: subsequent encounter
[2018-06-15] MEDS: Heparin - SQ 10,000 UNITS/ML Vial SQ SCH ×2 (10:11→23:19)
[2018-06-15] MEDS: Senna/Docusate Sodium 8.6/50 MG Tablet PO SCH ×2 (10:11→23:19)
[2018-06-15] MEDS: Ciprofloxacin 500 MG Tablet NG/OG SCH ×2 (10:11→23:18)
[2018-06-15] MEDS: Topiramate 25 MG Tablet PO SCH ×2 (10:11→23:18)
[2018-06-16] MEDS: Senna/Docusate Sodium 8.6/50 MG Tablet PO SCH ×2 (09:28→21:30)
[2018-06-16] MEDS: Ciprofloxacin 500 MG Tablet NG/OG SCH ×2 (09:28→21:30)
[2018-06-16] MEDS: Topiramate 25 MG Tablet PO SCH ×2 (09:28→21:30)
[2018-06-16] MEDS: Heparin - SQ 10,000 UNITS/ML Vial SQ SCH ×2 (09:29→21:30)
--- NOTE | 2018-06-16 10:13 | P.PN ---
Subjective Interval history: Follow-up visit IPH, SAH, SDH, poor appetite. Patient seen and examined today laying in bed. States he is doing okay. She states he wants to be left alone. As per nursing, he has been refusing tube feeds and some medications since yesterday. Discussed with patient the role of palliative care to continue to follow him for his decision if he just wants comfort care and not aggressive treatments. Patient is agreeable but does not seem to understand the whole process. Will reconsult palliative care. Denies pain and discomfort. Denies SOB/ dyspnea. No acute issues overnight as per nursing. Physical Exam Vital signs: Vital Signs 06/15/18 12:00 06/15/18 16:00 06/15/18 20:00 Temperature 97.1 F L 97.3 F L 97.3 F L Pulse Rate 73 78 80 Respiratory Rate 16 16 20 Blood Pressure 125/86 113/77 134/80 Pulse Oximetry 98 98 98 06/16/18 00:00 06/16/18 04:00 06/16/18 08:00 Temperature 97.7 F 97.7 F 97.6 F Pulse Rate 83 81 75 Respiratory Rate 18 18 18 Blood Pressure 115/77 116/73 107/75 Pulse Oximetry 95 98 97 Intake & Output 06/15/18 06/16/18 06/16/18 18:59 06:59 18:59 Intake Total 240 / 240 960 / 960 Balance 240 / 240 960 / 960 Weight 58.9 kg Intake: Oral 240 / 240 960 / 960 Other: # Voids 3 # Incontinent Voids 2 Date of Last Bowel Movement 06/14/18 06/15/18 Narrative: GENERAL: thin, AA male, in NAD, lying comfortable in bed SKIN: Warm and dry. HEENT: s/p right sided cranioplasty. Incision well healed. DOMINICK PAZ NECK: Trachea midline. Airway patent. CARDIOVASCULAR: Regular rate and rhythm without murmurs, gallops, or rubs. RESPIRATORY: CTAx2 GASTROINTESTINAL: Abdomen soft, non-tender, nondistended. PEG site C/D/I. MUSCULOSKELETAL: No cyanosis or edema. NEURO: AAOx2, weak bilateral radar repairer L>R. +Weakness LUE and LLE. Fair strength RLE. Minimal speech. PSYCHIATRIC: Flat affect. Calm and cooperative. - Urinary Catheter Management Indwelling Temp Sensing Catheter Cath placed during this visit: yes, but has since been removed by the nurse Reason for continuing: Not indwelling catheter Insertion date: 03/12/18 Insertion time: 05:30 Removal date: 03/25/18 Removal time: 18:00 Indwelling Urethral Catheter Cath placed during this visit: yes, but has since been removed by the nurse Reason for continuing: Decision to DC catheter Insertion date: 03/22/18 Insertion time: 17:30 Removal date: 03/25/18 Removal time: 18:00 Condom Cath placed during this visit: yes, but has since been removed by the nurse Reason for continuing: Hourly intake/output Insertion date: 05/13/18 Insertion time: 14:30 Removal date: 03/25/18 Removal time: 18:00 Results - Labs CBC & Chem 7: 06/13/18 06:47 06/13/18 06:47 Microbiology 06/12/18 09:23 Clean Catch Urine Urine Culture - Final Enterococcus faecalis Pseudomonas aeruginosa - Procedures PEG 7 -25 right decompressive craniectomy 03/22/18 with placement of ICP monitor by Dr. Chacko, in'ed 03/23/18 03/22/18 Right frontotemporal parietal decompressive craniectomy and Duroplasty 03/22/18 Left frontal bur hole with placement of an intracranial pressure monitor Assessment and Plan - Assessment (1) Intracranial hemorrhage following injury Code(s): S06.309A - Unspecified focal traumatic brain injury with loss of consciousness of unspecified duration, initial encounter Status: Acute (2) Traumatic brain injury Code(s): S06.9X9A - Unspecified intracranial injury with loss of consciousness of unspecified duration, initial encounter Status: Acute (3) Fall Code(s): W19.XXXA - Unspecified fall, initial encounter Status: Chronic (4) Cocaine abuse Code(s): F14.10 - Cocaine abuse, uncomplicated Status: Chronic (5) ETOH abuse Code(s): F10.10 - Alcohol abuse, uncomplicated Status: Chronic (6) Dysphagia Code(s): R13.10 - Dysphagia, unspecified Status: Acute - Plan 62-year-old male admitted secondary to intracranial hemorrhage Right frontal IPH 53.3 cm. SAH bilat frontal lobes, right parietal, temporal. Right frontotemporal SDH Status post emergency craniectomy for decompression for worsening midline shift right to left 2.1 cm s/p Fall, ?syncope HX Daily alcohol use/Cocaine abuse TBI -debility. -s/p Right frontotemporal parietal decompressive craniectomy and Duroplasty by Dr. Chacko. -s/p right cranioplasty 05/13/18, incision healing well. -Continue with PT/OT - PT recommends rehab at discharge -Seizure precautions -Palliative care following, appreciate assistance. Per note, patient has improved tremendously. Feels he has capacity to make medical decisions with support of family. Recommended psych consult to assess capacity. Psychiatry consulted, appreciate assistance. -Neuropsychiatry, Dr. Narvaez following, appreciate assistance - he still exhibit signs and symptoms of frontal lobe dysfunction, lack of insight, awareness and judgment. He wishes the PEG to be d/c'ed but he is not eating appropriately, and as such I would caution against that decision at this time. He is [place] . He continues to lack decision making capacity in my opinion because of his neuropsychological clinical presentation. -Monitor for any seizure activity off of Keppra. Continue on Topamax. Neutropenia -likely due to Fortaz. Fortaz discontinued. -Cont to monitor Hypernatremia, resolved -Encourage po fluid intake -monitor Na level Headache -repeat CT head 04/04 showed improvement -repeat CT head 04/26 shows stable exam with large right craniectomy defect and 5 mm midline shift, no hemorrhage -CTA head negative -Neurology following, appreciate assistance. Started on Topamax 50mg BID for likely vascular component. Topamax increased 05/18 to 75mg BID. Consider adding Decadron if headache persist -Patient denies any c/o of headache Dysphagia Protein calorie malnutrition s/p PEG tube placement 03/30/18 -ST re-evaluated and patient given puree diet with nectar thickened liquids. -Calorie count completed, inadequate intake. 04/20 TF resumed - Jevity 1.5 at 75 mls per hour 12 hours at night 7pm to 7am. -Change Booth Attendant following, recommends continued nighttime feeding and supplement -Needs assistance with all meals -Patient is requesting PEG tube be removed due to persistent nausea with use. Patient has been refusing PEG tube feedings. Will consult clerical adviser to initiate calorie count. As per Dr. Narvaez and Dr. Newell - patient does not have decision making capacity. -Continue to encourage PO intake. Add Enlive. -Has been refusing tube feeds and some medications. We will reconsult palliative care Acute respiratory failure secondary to failure to protect airway-resolved extubated MRSA pneumonia, status post treatment with IV vancomycin and Rocephin Tobacco abuse Extubated 03/25/2018 -CXR negative -Continue as needed duo nebs -Supplemental oxygen as needed -On RA tolerating Pseudomonas UTI, resolved -06/05 repeat UA positive for Pseudomonas. Treated with Ceftazidime, discontinued secondary to neutropenia -completed abx treatment Hepatitis C -avoid hepatotoxic agents -patient will need to follow up with GI as outpatient DVT prophylaxis Heparin sq started. Refusing at times. (Cleared By neurosurgery 06/10) Full code Discussed with patient, nursing Discharge Planning: No payer source. CM following (2) Traumatic brain injury Qualifiers: Encounter type: subsequent encounter
--- NOTE | 2018-06-16 17:48 | P.PNPAL ---
Reason for Visit Reason for visit: a. To assist with evaluation and management of symptoms including:pain, anxiety b. To assist medical decision maker(s) with: better understanding of current medical conditions; weighing benefits/burdens of medical treatment options; making medical treatment decisions. Subjective Subjective/Interval History: Palliative care reconsulted today per medical attending to reassess goals, palliative continues to follow this pt, seen today in follow up. d/p cranioplasty for bone flap replacement 05/13. labs From 06/13 chemistry stable patient's baseline, CBC stable, patient's baseline. Dietitian following , patient has been refusing tube feeding. Reports nausea. Still with fluctuating p.o. intake, generally poor. Per dietitian notation calorie count he was consuming approximately 560 jigar or 31% of his needed intake oral route. Has been recommended to continue with tube feedings overnight. Case management working with patient and family for discharge and placement at home independently. Psychology and neuropsychology previously following and have noted multiple times the patient has some limited judgment, limited to poor insight and is not capacitated to make his own decisions. Patient seen in room today, dual visit with Juan Rutherford APRN. He is alert, pleasant. Mostly oriented. He seems to remember me from prior visits. He makes jokes he is generally cooperative. He understands he in hospital / to brain bleed, had surgery. He feels he is better enough to go home and live semi independently. He tells me he doesnt like the feeding tube because it is a hole in his stomach and is uncomfortable. He reports that anytime they put the feeding and there it makes him nauseated and it runs right through him. He reports the same thing happens with the Ensure. He says he does not like the "instant food "but it upsets his stomach and runs right through him. Ask him about using the nausea medication, he indicates he does uses sometimes does not really help all that much. Ask him if he understands why he is being fed tube feeding explained that it is because he has not been eating enough orally. He said he understands that if you do not he will starve to . He indicates he does not want to and he is not trying to , but the food here is not good; that he has to eat whatever they send up and most of the time it is the same thing and he does not like it. Reports most of a taste like instant food. Try to explore what foods he likes he indicates he likes chicken and real mesh potatoes, he indicates he likes pulled pork. He indicates he might be amenable to trying outside food of his family could bring him this more often but that his son is too busy to visit. He indicates his son works a lot and that he the patient is no longer able to help him since he is now in the hospital. He indicates he would be open to trying something like hungry man frozen meals variety if the nurses can microwave them for him. He is currently on mechanical soft diet last speech therapy evaluation about a month ago when at that time he still was reluctant to participate further possible his diet may be advanced will request reevaluation. Also discussed with nursing to make sure the patient is allowed menu selections so that he has more input into his dietary choices. He is also open again to outside food provisions so I will investigate this option further: Family bringing him in food etc. In review of systems he denies headache currently says it is intermittent. Shortness of breath currently though indicates at times he is occasionally short of breath and it seems to resolve. Explore that at those instances oxygen could be utilized as needed if they are persistent. Eyes any other complaints other than he wants to go home telling him [facility] and he does not want to go there. He is much more interactive than in my prior interactions with him. Following exam call to son Wilson, voicemail left. d/w primary rn Objective Vital Signs: Vital Signs 06/15/18 20:00 06/16/18 00:00 06/16/18 04:00 Temperature 97.3 F L 97.7 F 97.7 F Pulse Rate 80 83 81 Respiratory Rate 20 18 18 Blood Pressure 134/80 115/77 116/73 Pulse Oximetry 98 95 98 06/16/18 08:00 06/16/18 12:00 Temperature 97.6 F 97.9 F Pulse Rate 75 80 Respiratory Rate 18 18 Blood Pressure 107/75 112/75 Pulse Oximetry 97 99 Intake & Output 06/15/18 06/16/18 06/16/18 18:59 06:59 18:59 Intake Total 240 / 240 960 / 960 480 / 480 Balance 240 / 240 960 / 960 480 / 480 Weight 58.9 kg Intake: Oral 240 / 240 960 / 960 480 / 480 Oral Supplement 0 / 0 Other: # Voids 3 # Incontinent Voids 2 3 # Urine Diapers 1 Date of Last Bowel Movement 06/14/18 06/15/18 06/16/18 Physical Exam: CONSTITUTIONAL/GENERAL: This is a frail 62 year old male. alert, pleasant SKIN: No jaundice, rashes, or lesions. HEAD: well healed incision to head, asymptomatic. EYES: pupils equal, reactive. no injection or drainage CARDIOVASCULAR: Regular rate and rhythm without murmur. No JVD. Peripheral pulses symmetric. RESPIRATORY/CHEST: Symmetric, unlabored respirations. on room air. Clear to auscultation. Breath sounds equal bilaterally. GASTROINTESTINAL: Abdomen soft, non-tender, nondistended. peg tube in place. Site asymptomatic. NEUROLOGICAL: alert, mostly oriented. cooperative. limited insight.moves all 4 extremities. PSYCHIATRIC: cooperative, no apparent anxiety or depression Diagnostic Tests Result Diagrams: 06/13/18 06:47 06/13/18 06:47 Microbiology: Microbiology 06/12/18 09:23 Urine Culture - Final Clean Catch Urine Enterococcus faecalis Pseudomonas aeruginosa Assessment and Plan - Disease Oriented Problem List (1) SDH (subdural hematoma) Comment: Right frontal intraparenchymal hemorage s/p fall. Underwent decompressive creniectomy and duroplasty 03/23/2018 Dr. Chacko. (2) MRSA pneumonia Comment: Had been intubated for airway protection and for thick secretions. Pt extubated 03/25 (3) Cocaine abuse (4) Tobacco abuse (5) COPD (chronic obstructive pulmonary disease) (6) Asthma - Symptom Scale (1) Head ache 0-10 Scale: Unable to quantify Comment: did not quantify and not cooperative to characterize. (2) Nausea 0-10 Scale: Unable to quantify Pertinent Non-Medical Issues: Psychosocial:worked in [place]. hx of etoh drug abuse. Has 2 chilren, on Daughter (i do not have name or contact at this point) and Son Wilson Jimenez [phone] Spiritual:did not disclose Legal:He had stated he want son Wilson Jimenez has health care surrogate, but was not very cooperative, and did not want to designate health care surrogate today Ethical issues impacting care: Important Contacts: Son Wilson Jimenez [phone] Daughter Prognosis: Pt is 62 male (copd/asthma/etoh/tobacco/coccaine abuse) who had syncopy, fell and hit his head. He had a 5x 3 right frontal lobe hemorrhage. Initially it was medical managment, but subsequent ct and neuro status worsened. 03/11 patient was intubated. 03/21: CT Head significant worsening of the [id number] midline shift frontal region, now measuring 2.1 cm, decreasing density of r frontal hematoma. 03/22 pt underwent right frontotemporal parietal decompressive craniectomy and duroplasty by Dr. Chacko. Eventually he was able to become alert enough and protect his airway enough to undergo medical extubation. He pulled his NG tube, so was peg tube was placed on 03/30. Neurologically he seem to be making progress with hospitalist documenting he is ambulating with assisstance in a walker. He has improve tremedously and I think if he is compliant there is a good chance he can get strong enough to stop tube feedings and improve. I will check with neurosurgery but I feel his prognosis is > 6 months at this point if he was compliant. Code Status: Full Code (by default) Plan: == capacity-mental status fluctuates status post TBI. He appears at the very least can participate in making medical decisions, with the support of family. He completed verbal designation of son Wilson as HCS == code status: full code. == Goals of care: Patient appears to have made general improvement during prolonged hospital course. Likely would continue to make slow improvement if able to cooperate with ongoing aggressive treatments. May not be appropriate for hospice. Patient withdrawn and with very little willingness to engage and participate. During prior palliative care interaction with patient's son who would be 1 of the proxies, goals were aggressive, not comfort oriented, not interested in hospice . 06/16/18 patient more engaged, endorses reasonable requests for improving eating.wants more food variety/choices. Still without full insight. Not intentionally wanting to not eat or "starve". VM left for son. == Symptom: --BATISTA- s/p surgery, intraparenchymal bleed. he has PRN Tylenol available, as well as prn norco. Has been started on Toprol for BATISTA per neurology. Now status post cranioplasty. Does not verbalize BATISTA today, reports intermittent. --nausea- Reports intermittent nausea, leanne with tube feeding + ensure. receiving tube feeding at night. PO intake fluctuates, poor intake , 31% of calorie rec. per size mixer. May be intolerant to tf/ explore food preferences, will pursue ST re-eval and try to get pt more outside food options and choice which may improve PO intake. ST eval ordered. --Malnutrition: Has had episodes of intermittent nausea. Status post PEG placement. Poor oral intake during the day. Fluctuates. Dietitian continues to follow recommends tube feedings supplementing 12 hours overnight. May be intolerant to tf/ explore food preferences, will pursue ST re-eval and try to get pt more outside food options and choice which may improve PO intake. IF diet can be advanced per ST may slightly improve his PO intake. --flat/unengaged in rehab efforts- r/t brain injury. neuropsych rec. expected to require tank terminal gauger placement . Poor insight/judgement per neuro, neuropsych. == Palliative care will continue to follow PRN during hospital course as condition evolves, to assist patient/decision-maker with understanding of medical conditions, weighing benefits/burdens of treatment options, for clarification of goals of treatment. Additionally will assist with any symptoms of palliative concern PRN Attestation Attestation: To help prompt me to consider important information that might be impacting today's encounter and assessment, information from prior notes written by myself or my colleagues may have been "brought forward" into today's note. My signature on this note, however, is an attestation that I personally performed the exam, history, and/or decision-making noted today, and, unless otherwise indicated, the interactions with patient, family, and staff as well as the review of records all occurred today. I also attest that the listed assessment and stated plan reflect my best clinical judgment today based on the combination of historical information, prior notes, and today's exam/ interactions. When time spent is documented, it refers only to time spent today by the signer, or if indicated, combined time spent today by collaborating physician/nurse practitioner.
[2018-06-17] MEDS: Heparin - SQ 10,000 UNITS/ML Vial SQ SCH ×2 (09:42→21:44)
[2018-06-17] MEDS: Ciprofloxacin 500 MG Tablet NG/OG SCH ×2 (09:43→21:44)
[2018-06-17] MEDS: Senna/Docusate Sodium 8.6/50 MG Tablet PO SCH ×2 (09:43→21:44)
[2018-06-17] MEDS: Topiramate 25 MG Tablet PO SCH ×2 (09:43→21:44)
--- NOTE | 2018-06-17 13:32 | P.PN ---
Subjective Interval history: Patient laying in bed. He states he is doing well. Fatigued. Had a bowel movement today. He states he is eating and drinking by mouth. According to nursing staff, patient allowed for PEG tube use last night. He denies nausea, vomiting, constipation, or diarrhea. Denies chest pain or shortness of breath. Denies pain or discomfort. Physical Exam Vital signs: Vital Signs 06/16/18 16:00 06/16/18 20:00 06/17/18 00:00 Temperature 98.2 F 97.9 F 98.7 F Pulse Rate 77 84 83 Respiratory Rate Blood Pressure 104/75 99/68 L 109/71 Pulse Oximetry 98 97 96 06/17/18 04:00 06/17/18 08:00 06/17/18 12:00 Temperature 97.8 F 98.5 F 98.2 F Pulse Rate 82 88 89 Respiratory Rate 18 Blood Pressure 105/64 106/73 107/73 Pulse Oximetry 97 100 98 Intake & Output 06/16/18 06/17/18 06/17/18 18:59 06:59 18:59 Intake Total 480 / 480 1700 / 1700 Output Total 200 / 200 Balance 480 / 480 -200 / -200 1700 / 1700 Weight 54.7 kg Intake: Oral 480 / 480 Oral Supplement 0 / 0 Tube Feeding 900 / 900 Tube Irrigant 800 / 800 Output: Urine 200 / 200 Other: # Incontinent Voids 3 2 # Urine Diapers 1 Date of Last Bowel Movement 06/16/18 06/16/18 06/16/18 Narrative: GENERAL: thin, AA male, in NAD, lying comfortable in bed SKIN: Warm and dry. HEENT: s/p right sided cranioplasty. Incision well healed. DOMINICK PAZ NECK: Trachea midline. Airway patent. CARDIOVASCULAR: Regular rate and rhythm without murmurs, gallops, or rubs. RESPIRATORY: CTAx2 GASTROINTESTINAL: Abdomen soft, non-tender, nondistended. PEG site C/D/I. MUSCULOSKELETAL: No cyanosis or edema. NEURO: AAOx2, weak bilateral inhalation therapist L>R. +Weakness LUE and LLE. Fair strength RLE. Minimal speech. PSYCHIATRIC: Flat affect. Calm and cooperative. - Urinary Catheter Management Indwelling Temp Sensing Catheter Cath placed during this visit: yes, but has since been removed by the nurse Reason for continuing: Not indwelling catheter Insertion date: 03/12/18 Insertion time: 05:30 Removal date: 03/25/18 Removal time: 18:00 Indwelling Urethral Catheter Cath placed during this visit: yes, but has since been removed by the nurse Reason for continuing: Decision to DC catheter Insertion date: 03/22/18 Insertion time: 17:30 Removal date: 03/25/18 Removal time: 18:00 Condom Cath placed during this visit: yes, but has since been removed by the nurse Reason for continuing: Hourly intake/output Insertion date: 05/13/18 Insertion time: 14:30 Removal date: 03/25/18 Removal time: 18:00 Results - Labs CBC & Chem 7: 06/13/18 06:47 06/13/18 06:47 - Procedures PEG 7 -25 right decompressive craniectomy 03/22/18 with placement of ICP monitor by Dr. Chacko, ms'ed 03/23/18 03/22/18 Right frontotemporal parietal decompressive craniectomy and Duroplasty 03/22/18 Left frontal bur hole with placement of an intracranial pressure monitor Assessment and Plan - Assessment (1) Intracranial hemorrhage following injury Code(s): S06.309A - Unspecified focal traumatic brain injury with loss of consciousness of unspecified duration, initial encounter Status: Acute (2) Traumatic brain injury Code(s): S06.9X9A - Unspecified intracranial injury with loss of consciousness of unspecified duration, initial encounter Status: Acute (3) Fall Code(s): W19.XXXA - Unspecified fall, initial encounter Status: Chronic (4) Cocaine abuse Code(s): F14.10 - Cocaine abuse, uncomplicated Status: Chronic (5) ETOH abuse Code(s): F10.10 - Alcohol abuse, uncomplicated Status: Chronic (6) Dysphagia Code(s): R13.10 - Dysphagia, unspecified Status: Acute - Plan 62-year-old male admitted secondary to intracranial hemorrhage Right frontal IPH 53.3 cm. SAH bilat frontal lobes, right parietal, temporal. Right frontotemporal SDH Status post emergency craniectomy for decompression for worsening midline shift right to left 2.1 cm s/p Fall, ?syncope HX Daily alcohol use/Cocaine abuse TBI -debility. -s/p Right frontotemporal parietal decompressive craniectomy and Duroplasty by Dr. Chacko. -s/p right cranioplasty 05/13/18, incision healing well. -Continue with PT/OT - PT recommends rehab at discharge -Seizure precautions -Palliative care following, appreciate assistance. Per note, patient has improved tremendously. Feels he has capacity to make medical decisions with support of family. Recommended psych consult to assess capacity. Psychiatry consulted, appreciate assistance. -Neuropsychiatry, Dr. Narvaez following, appreciate assistance - he still exhibit signs and symptoms of frontal lobe dysfunction, lack of insight, awareness and judgment. He wishes the PEG to be d/c'ed but he is not eating appropriately, and as such I would caution against that decision at this time. He is [place] . He continues to lack decision making capacity in my opinion because of his neuropsychological clinical presentation. -Monitor for any seizure activity off of Keppra. Continue on Topamax. Neutropenia -likely due to Fortaz. Fortaz discontinued. -Cont to monitor Hypernatremia, resolved -Encourage po fluid intake -monitor Na level Headache -repeat CT head 04/04 showed improvement -repeat CT head 04/26 shows stable exam with large right craniectomy defect and 5 mm midline shift, no hemorrhage -CTA head negative -Neurology following, appreciate assistance. Started on Topamax 50mg BID for likely vascular component. Topamax increased 05/18 to 75mg BID. Consider adding Decadron if headache persist -Patient denies any c/o of headache Dysphagia Protein calorie malnutrition s/p PEG tube placement 03/30/18 -ST re-evaluated and patient given puree diet with nectar thickened liquids. -Calorie count completed, inadequate intake. 04/20 TF resumed - Jevity 1.5 at 75 mls per hour 12 hours at night 7pm to 7am. -Manager Of Maintenance following, recommends continued nighttime feeding and supplement -Needs assistance with all meals -Patient is requesting PEG tube be removed due to persistent nausea with use. Patient has been refusing PEG tube feedings. Will consult police officer to initiate calorie count. As per Dr. Narvaez and Dr. Newell - patient does not have decision making capacity. -Continue to encourage PO intake. Add Enlive. -Has been refusing tube feeds and some medications. As per Palliative care, patient may be intolerant to tube feeds and Ensure. He understands he needs to increase his intake. Will try better food options through pursuing outside food and different choices. Speech therapy was consulted, patient demonstrates mild oral phase and suspected mild pharyngeal phase swallowing deficits. Recommendations of diet advancement to regular consistency solids, thin liquids. Acute respiratory failure secondary to failure to protect airway-resolved extubated MRSA pneumonia, status post treatment with IV vancomycin and Rocephin Tobacco abuse Extubated 03/25/2018 -CXR negative -Continue as needed duo nebs -Supplemental oxygen as needed -On RA tolerating Pseudomonas UTI, resolved -06/05 repeat UA positive for Pseudomonas. Treated with Ceftazidime, discontinued secondary to neutropenia -completed abx treatment Hepatitis C -avoid hepatotoxic agents -patient will need to follow up with GI as outpatient DVT prophylaxis Heparin sq started. Refusing at times. (Cleared By neurosurgery 06/10) Full code Discussed with patient, nursing Discharge Planning: No payer source. CM following (2) Traumatic brain injury Qualifiers: Encounter type: subsequent encounter
--- NOTE | 2018-06-17 15:45 | P.DIET ---
Nutritional Evaluation Type of nutrition evaluation: follow-up Nutrition consult regarding: Tube Feeding Nutrition screening: [facility] [place] (06/07 [facility] [place] for calorie counting. Pt requesting PEG removal) Subjective Subjective Comments: Pt refused lunch and only ate 50% of bkfst today. From calorie counts: Pt is eating mostly desserts (pudding, oreo parfait, deng cheesecake cup). Objective - Diagnosis ICH, SAH, Syncope - Objective % IBW: 87 (IBW = 166#) Body Weight Used for Calculations: Actual (65.4 kg) Energy Needs - Lower Range (kCal/kg): 28 Energy Needs - Upper Range (kCal/kg): 33 Lower Limit kCal/kg (kCals): 1,831 Upper Limit kCal/kg (kCals): 2,158 Lower Limit Protein Factor (Grams per Kg): 1.2 Upper Limit Protein Factor (Grams per Kg): 1.5 Lower Protein Needs (Protein): 79 Upper Protein Needs (Protein): 98 Fluid Factor (ml/kg): 28 Estimated Fluid Needs (ml): 1,831 Dietitian Reviewed in Medical Record: Current diet, Curent medications, Intake & Output, Labs, Medical history, Tube feeding, Wound/DTI Diet Order: Mechanical Soft Speech Therapy Recommendations: Yes Objective Comments: PMH: COPD, Asthma, tobacco abuse, daily ETOH use 03/22 R front temporal parietal decompressive craniectomy Integumentary: coccyx pressure injury PEG placement 03/30/18 9 R frontal temporal parietal cranioplasty Feeding - Current PO Supplement Current Supplement: Ensure Enlive Current Frequency of Supplement: Three times a day Current kCals Provided by Supplement: 350 Current Protein Provided by Supplement: 20 Supplement Comments: plus Ensure Pudding(= 170 kcal and 4g protein per serving) Assessment Assessment: PO intake remians poor and inadequate to meet nutritional needs. Pt is refusing some meals and his night time TFing. He reports it makes him nauseous, even though he had been receiving TFing since March without indications of intolerance. Current diet is mechanical soft with Ensure Enlive and Ensure Pudding added. CBW is 54.7 kg which indicates weight loss since admission. Recommend continue night time TFing to supplement po intake to prevent further nutritional compromise. Recommend Jevity 1.5 @ 85 mls/hr from 7pm -7am to provide 1530 kcals and 65 gms protein. Pt is still unable to meet nutritional needs with po intake alone. Benefits from full assistance at meals. Goal would be to discontinue TF at some point but pt's po intake is not even close to adequate at this time. If there are concerns regarding tolerance of current TF formula, recommend trial of Vital 1.5 Recommendations: 1. Diet per ST 2. Continue Jevity 1.5 @ 85 mls/hr x 12 hours at night OR TRIAL VITAL 1.5 formula 3.Continue Ensure Enlive TID 4.Continue Ensure Pudding TID 5. Please provide full assistance at meals My understanding is that the pt does not have the capacity to make decisions at this time. Question: why we are letting him decide not to have his TFing when it is needed for his recovery. Dietitian to Monitor: Lab values, Supplement acceptance, Intake & Output, Diet tolerance, Weight change, PO Intake, Wound/skin status, Medical course
[2018-06-18] MEDS: Topiramate 25 MG Tablet PO SCH ×2 (09:09→23:30)
[2018-06-18] MEDS: Ciprofloxacin 500 MG Tablet NG/OG SCH ×2 (09:10→23:30)
[2018-06-18] MEDS: Heparin - SQ 10,000 UNITS/ML Vial SQ SCH ×3 (09:10→23:30)
[2018-06-18] MEDS: Senna/Docusate Sodium 8.6/50 MG Tablet PO SCH ×2 (09:10→23:30)
--- NOTE | 2018-06-18 11:04 | P.PN ---
Subjective Interval history: Follow-up visit IPH, SAH, SDH, poor appetite. Patient seen and examined today laying in bed. States he is doing alright. Denies pain and discomfort. Denies SOB/ dyspnea. Denies chest pain. Denies fevers, chills, n/v/d. No acute issues overnight as per nursing. States he is eating but noted his tray is about 20% consumed. Physical Exam Vital signs: Vital Signs 06/17/18 12:00 06/17/18 16:00 06/17/18 20:00 Temperature 98.2 F 98.3 F 98.1 F Pulse Rate 89 74 82 Respiratory Rate 18 18 18 Blood Pressure 107/73 109/76 102/66 Pulse Oximetry 98 96 97 06/17/18 21:44 06/18/18 00:00 06/18/18 04:00 Temperature 98.0 F 97.9 F Pulse Rate 79 76 Respiratory Rate 20 18 18 Blood Pressure 111/69 106/71 Pulse Oximetry 96 97 06/18/18 08:00 Temperature 97.4 F L Pulse Rate 72 Respiratory Rate 18 Blood Pressure 111/74 Pulse Oximetry 100 Intake & Output 06/17/18 06/18/18 06/18/18 18:59 06:59 18:59 Intake Total 2300 / 2300 Output Total 400 / 400 Balance 2300 / 2300 -400 / -400 Weight 54.5 kg Intake: Oral 600 / 600 Tube Feeding 900 / 900 Tube Irrigant 800 / 800 Output: Urine 400 / 400 Other: # Incontinent Voids 1 Date of Last Bowel Movement 06/16/18 06/16/18 06/18/18 Narrative: GENERAL: thin, AA male, in NAD, lying comfortable in bed SKIN: Warm and dry. HEENT: s/p right sided cranioplasty. Incision well healed. DOMINICK PAZ NECK: Trachea midline. Airway patent. CARDIOVASCULAR: Regular rate and rhythm without murmurs, gallops, or rubs. RESPIRATORY: CTAx2 GASTROINTESTINAL: Abdomen soft, non-tender, nondistended. PEG site C/D/I. MUSCULOSKELETAL: No cyanosis or edema. 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 +Weakness LUE and LLE. Fair strength RLE. Minimal speech. PSYCHIATRIC: Flat affect. Calm and cooperative. - Urinary Catheter Management Indwelling Temp Sensing Catheter Cath placed during this visit: yes, but has since been removed by the nurse Reason for continuing: Not indwelling catheter Insertion date: 03/12/18 Insertion time: 05:30 Removal date: 03/25/18 Removal time: 18:00 Indwelling Urethral Catheter Cath placed during this visit: yes, but has since been removed by the nurse Reason for continuing: Decision to DC catheter Insertion date: 03/22/18 Insertion time: 17:30 Removal date: 03/25/18 Removal time: 18:00 Condom Cath placed during this visit: yes, but has since been removed by the nurse Reason for continuing: Hourly intake/output Insertion date: 05/13/18 Insertion time: 14:30 Removal date: 03/25/18 Removal time: 18:00 Results - Labs CBC & Chem 7: 06/13/18 06:47 06/13/18 06:47 - Procedures PEG 7 -25 right decompressive craniectomy 03/22/18 with placement of ICP monitor by Dr. Chacko, or'ed 03/23/18 03/22/18 Right frontotemporal parietal decompressive craniectomy and Duroplasty 03/22/18 Left frontal bur hole with placement of an intracranial pressure monitor Assessment and Plan - Assessment (1) Intracranial hemorrhage following injury Code(s): S06.309A - Unspecified focal traumatic brain injury with loss of consciousness of unspecified duration, initial encounter Status: Acute (2) Traumatic brain injury Code(s): S06.9X9A - Unspecified intracranial injury with loss of consciousness of unspecified duration, initial encounter Status: Acute (3) Fall Code(s): W19.XXXA - Unspecified fall, initial encounter Status: Chronic (4) Cocaine abuse Code(s): F14.10 - Cocaine abuse, uncomplicated Status: Chronic (5) ETOH abuse Code(s): F10.10 - Alcohol abuse, uncomplicated Status: Chronic (6) Dysphagia Code(s): R13.10 - Dysphagia, unspecified Status: Acute - Plan 62-year-old male admitted secondary to intracranial hemorrhage Right frontal IPH 53.3 cm. SAH bilat frontal lobes, right parietal, temporal. Right frontotemporal SDH Status post emergency craniectomy for decompression for worsening midline shift right to left 2.1 cm s/p Fall, ?syncope HX Daily alcohol use/Cocaine abuse TBI -debility. -s/p Right frontotemporal parietal decompressive craniectomy and Duroplasty by Dr. Chacko. -s/p right cranioplasty 05/13/18, incision healing well. -Continue with PT/OT - PT recommends rehab at discharge -Seizure precautions -Palliative care following, appreciate assistance. Per note, patient has improved tremendously. Feels he has capacity to make medical decisions with support of family. Recommended psych consult to assess capacity. Psychiatry consulted, appreciate assistance. -Neuropsychiatry, Dr. Narvaez following, appreciate assistance - he still exhibit signs and symptoms of frontal lobe dysfunction, lack of insight, awareness and judgment. He wishes the PEG to be d/c'ed but he is not eating appropriately, and as such I would caution against that decision at this time. He is [place] . He continues to lack decision making capacity in my opinion because of his neuropsychological clinical presentation. -Monitor for any seizure activity off of Keppra. Continue on Topamax. Neutropenia -likely due to Fortaz. Fortaz discontinued. -Cont to monitor Hypernatremia, resolved -Encourage po fluid intake -monitor Na level Headache -repeat CT head 04/04 showed improvement -repeat CT head 04/26 shows stable exam with large right craniectomy defect and 5 mm midline shift, no hemorrhage -CTA head negative -Neurology following, appreciate assistance. Started on Topamax 50mg BID for likely vascular component. Topamax increased 05/18 to 75mg BID. Consider adding Decadron if headache persist -Patient denies any c/o of headache Dysphagia Protein calorie malnutrition s/p PEG tube placement 03/30/18 -ST re-evaluated and patient given puree diet with nectar thickened liquids. -Calorie count completed, inadequate intake. 04/20 TF resumed - Jevity 1.5 at 75 mls per hour 12 hours at night 7pm to 7am. -Slot Service Specialist following, recommends continued nighttime feeding and supplement -Needs assistance with all meals -Patient is requesting PEG tube be removed due to persistent nausea with use. Patient has been refusing PEG tube feedings. Will consult credit office manager to initiate calorie count. As per Dr. Narvaez and Dr. Newell - patient does not have decision making capacity. -Continue to encourage PO intake. Add Enlive. -Has been refusing tube feeds and some medications on and off. As per Palliative care, patient may be intolerant to tube feeds and Ensure. He understands he needs to increase his intake. Will try better food options through pursuing outside food and different choices. Speech therapy was consulted, patient demonstrates mild oral phase and suspected mild pharyngeal phase swallowing deficits. Recommendations of diet advancement to regular consistency solids, thin liquids. -Cont to need enc. -may benefit with Remeron Acute respiratory failure secondary to failure to protect airway-resolved extubated MRSA pneumonia, status post treatment with IV vancomycin and Rocephin Tobacco abuse Extubated 03/25/2018 -CXR negative -Continue as needed duo nebs -Supplemental oxygen as needed -On RA tolerating Pseudomonas UTI, resolved -06/05 repeat UA positive for Pseudomonas. Treated with Ceftazidime, discontinued secondary to neutropenia -completed abx treatment Hepatitis C -avoid hepatotoxic agents -patient will need to follow up with GI as outpatient DVT prophylaxis Heparin sq started. Refusing at times. (Cleared By neurosurgery 06/10) Full code Discussed with patient, nursing Discharge Planning: No payer source. CM following (2) Traumatic brain injury Qualifiers: Encounter type: subsequent encounter
[2018-06-18] MEDS: Mirtazapine 15 MG Tablet PO SCH (23:30)
[2018-06-19] MEDS: Heparin - SQ 10,000 UNITS/ML Vial SQ SCH ×2 (08:30→23:57)
[2018-06-19] MEDS: Senna/Docusate Sodium 8.6/50 MG Tablet PO SCH ×2 (08:30→23:57)
[2018-06-19] MEDS: Topiramate 25 MG Tablet PO SCH ×2 (08:30→23:58)
[2018-06-19] MEDS: Ciprofloxacin 500 MG Tablet NG/OG SCH ×2 (08:31→23:57)
--- NOTE | 2018-06-19 10:20 | P.PN ---
Subjective Interval history: Follow-up visit IPH, SAH, SDH, poor appetite. Patient seen and examined today laying in bed. States he is doing alright. Denies pain and discomfort. Denies SOB/ dyspnea. Denies chest pain. Denies fevers, chills, n/v/d. No acute issues overnight as per nursing. Patient was out of bed to chair today. More verbal compared to previous days. States he has been eating better. Physical Exam Vital signs: Vital Signs 06/18/18 12:00 06/18/18 16:00 06/18/18 20:00 Temperature 98.2 F 98.1 F 97.7 F Pulse Rate 71 74 80 Respiratory Rate 18 20 18 Blood Pressure 117/73 117/74 118/78 Pulse Oximetry 99 97 97 06/19/18 00:00 06/19/18 04:00 06/19/18 08:00 Temperature 97.6 F 97.7 F 97.4 F L Pulse Rate 82 83 90 Respiratory Rate 18 18 20 Blood Pressure 117/72 120/77 101/71 Pulse Oximetry 96 98 98 Intake & Output 06/18/18 06/19/18 06/19/18 18:59 06:59 18:59 Intake Total 600 / 600 Output Total 900 / 900 600 / 600 Balance -300 / -300 -600 / -600 Weight 54.3 kg Intake: Oral 600 / 600 Output: Urine 900 / 900 600 / 600 Other: Date of Last Bowel Movement 06/18/18 06/18/18 06/18/18 # Incontinent Bowel Movements 1 Narrative: GENERAL: thin, AA male, in NAD, lying comfortable in bed SKIN: Warm and dry. HEENT: s/p right sided cranioplasty. Incision well healed. DOMINICK PAZ NECK: Trachea midline. Airway patent. CARDIOVASCULAR: Regular rate and rhythm without murmurs, gallops, or rubs. RESPIRATORY: CTAx2 GASTROINTESTINAL: Abdomen soft, non-tender, nondistended. PEG site C/D/I. MUSCULOSKELETAL: No cyanosis or edema. NEURO: AAOx2, weak bilateral rabbit breeder L>R. +Weakness LUE and LLE. Fair strength RLE. More verbal. Normal speech. - Urinary Catheter Management Indwelling Temp Sensing Catheter Cath placed during this visit: yes, but has since been removed by the nurse Reason for continuing: Not indwelling catheter Insertion date: 03/12/18 Insertion time: 05:30 Removal date: 03/25/18 Removal time: 18:00 Indwelling Urethral Catheter Cath placed during this visit: yes, but has since been removed by the nurse Reason for continuing: Decision to DC catheter Insertion date: 03/22/18 Insertion time: 17:30 Removal date: 03/25/18 Removal time: 18:00 Condom Cath placed during this visit: yes, but has since been removed by the nurse Reason for continuing: Hourly intake/output Insertion date: 05/13/18 Insertion time: 14:30 Removal date: 03/25/18 Removal time: 18:00 Results - Labs CBC & Chem 7: 06/13/18 06:47 06/13/18 06:47 - Procedures PEG 7 -25 right decompressive craniectomy 03/22/18 with placement of ICP monitor by Dr. Chacko, ga'ed 03/23/18 03/22/18 Right frontotemporal parietal decompressive craniectomy and Duroplasty 03/22/18 Left frontal bur hole with placement of an intracranial pressure monitor Assessment and Plan - Assessment (1) Intracranial hemorrhage following injury Code(s): S06.309A - Unspecified focal traumatic brain injury with loss of consciousness of unspecified duration, initial encounter Status: Acute (2) Traumatic brain injury Code(s): S06.9X9A - Unspecified intracranial injury with loss of consciousness of unspecified duration, initial encounter Status: Acute (3) Fall Code(s): W19.XXXA - Unspecified fall, initial encounter Status: Chronic (4) Cocaine abuse Code(s): F14.10 - Cocaine abuse, uncomplicated Status: Chronic (5) ETOH abuse Code(s): F10.10 - Alcohol abuse, uncomplicated Status: Chronic (6) Dysphagia Code(s): R13.10 - Dysphagia, unspecified Status: Acute - Plan 62-year-old male admitted secondary to intracranial hemorrhage Right frontal IPH 53.3 cm. SAH bilat frontal lobes, right parietal, temporal. Right frontotemporal SDH Status post emergency craniectomy for decompression for worsening midline shift right to left 2.1 cm s/p Fall, ?syncope HX Daily alcohol use/Cocaine abuse TBI -debility. -s/p Right frontotemporal parietal decompressive craniectomy and Duroplasty by Dr. Chacko. -s/p right cranioplasty 05/13/18, incision healing well. -Continue with PT/OT - PT recommends rehab at discharge -Seizure precautions -Palliative care following, appreciate assistance. Per note, patient has improved tremendously. Feels he has capacity to make medical decisions with support of family. Recommended psych consult to assess capacity. Psychiatry consulted, appreciate assistance. -Neuropsychiatry, Dr. Narvaez following, appreciate assistance - he still exhibit signs and symptoms of frontal lobe dysfunction, lack of insight, awareness and judgment. He wishes the PEG to be d/c'ed but he is not eating appropriately, and as such I would caution against that decision at this time. He is [place] . He continues to lack decision making capacity in my opinion because of his neuropsychological clinical presentation. -Monitor for any seizure activity off of Keppra. Continue on Topamax. Neutropenia -likely due to Fortaz. Fortaz discontinued. -Cont to monitor Hypernatremia, resolved -Encourage po fluid intake -monitor Na level Headache -repeat CT head 04/04 showed improvement -repeat CT head 04/26 shows stable exam with large right craniectomy defect and 5 mm midline shift, no hemorrhage -CTA head negative -Neurology following, appreciate assistance. Started on Topamax 50mg BID for likely vascular component. Topamax increased 05/18 to 75mg BID. Consider adding Decadron if headache persist -Patient denies any c/o of headache Dysphagia Protein calorie malnutrition s/p PEG tube placement 03/30/18 -ST re-evaluated and patient given puree diet with nectar thickened liquids. -Calorie count completed, inadequate intake. 04/20 TF resumed - Jevity 1.5 at 75 mls per hour 12 hours at night 7pm to 7am. -Clinical Data Programmer following, recommends continued nighttime feeding and supplement -Needs assistance with all meals -Patient is requesting PEG tube be removed due to persistent nausea with use. Patient has been refusing PEG tube feedings. Will consult brinell tester to initiate calorie count. As per Dr. Narvaez and Dr. Newell - patient does not have decision making capacity. -Continue to encourage PO intake. Add Enlive. -Has been refusing tube feeds and some medications on and off. As per Palliative care, patient may be intolerant to tube feeds and Ensure. He understands he needs to increase his intake. Will try better food options through pursuing outside food and different choices. Speech therapy was consulted, patient demonstrates mild oral phase and suspected mild pharyngeal phase swallowing deficits. Recommendations of diet advancement to regular consistency solids, thin liquids. -Cont to need enc. -Remeron QHS started. More verbal Acute respiratory failure secondary to failure to protect airway-resolved extubated MRSA pneumonia, status post treatment with IV vancomycin and Rocephin Tobacco abuse Extubated 03/25/2018 -CXR negative -Continue as needed duo nebs -Supplemental oxygen as needed -On RA tolerating Pseudomonas UTI, resolved -06/05 repeat UA positive for Pseudomonas. Treated with Ceftazidime, discontinued secondary to neutropenia -completed abx treatment Hepatitis C -avoid hepatotoxic agents -patient will need to follow up with GI as outpatient DVT prophylaxis Heparin sq started. Refusing at times. (Cleared By neurosurgery 06/10) Full code Discussed with patient, nursing Discharge Planning: No payer source. CM following (2) Traumatic brain injury Qualifiers: Encounter type: subsequent encounter
[2018-06-19] MEDS: Mirtazapine 15 MG Tablet PO SCH (23:57)
[2018-06-20] MEDS: Senna/Docusate Sodium 8.6/50 MG Tablet PO SCH ×2 (08:24→20:26)
[2018-06-20] MEDS: Heparin - SQ 10,000 UNITS/ML Vial SQ SCH ×2 (08:24→20:25)
[2018-06-20] MEDS: Ciprofloxacin 500 MG Tablet NG/OG SCH ×2 (08:24→20:25)
[2018-06-20] MEDS: Topiramate 25 MG Tablet PO SCH ×2 (08:24→20:25)
--- NOTE | 2018-06-20 11:30 | P.PNIM ---
Subjective Interval history: Follow up ICH, SAH, SDH. PAtien seen and examined, lying in bed, breakfast tray at the bedside, stated he is working on it, however does not appear to be touched.n Patient hali any problem with swallowing, denies nausea or vomiting , stated she just dont have the taste. Patient denies any pain or SOB, denies any headache or dizziness. Denies any diarrhea or constipation, denies any fever or chills. Physical Exam Vital signs: Vital Signs 06/19/18 11:53 06/19/18 15:40 06/19/18 20:00 Temperature 97.6 F 97.8 F 97.9 F Pulse Rate 83 91 H 91 H Respiratory Rate 18 Blood Pressure 106/64 106/67 107/70 Pulse Oximetry 98 93 L 98 06/20/18 00:00 06/20/18 04:00 06/20/18 08:00 Temperature 98.2 F 98.1 F 98.5 F Pulse Rate 86 80 85 Respiratory Rate 18 Blood Pressure 111/69 118/71 104/65 Pulse Oximetry 98 99 93 L Intake & Output 06/19/18 06/20/18 06/20/18 18:59 06:59 18:59 Intake Total 480 / 480 Output Total 500 / 500 350 / 350 Balance -20 / -20 -350 / -350 Weight 53.4 kg Intake: Oral 480 / 480 Output: Urine 500 / 500 350 / 350 Other: # Incontinent Voids 1 Date of Last Bowel Movement 06/18/18 06/19/18 Narrative: GENERAL: Thin appearing -Prydeinig male in no apparent distress SKIN: Warm and dry. HEAD: right sided cranioplasty surgical incision, healing well EYES: Pupils equal and round. No scleral icterus. No injection or drainage. ENT: No nasal bleeding or discharge. Mucous membranes pink and moist. NECK: Trachea midline. No JVD. CARDIOVASCULAR: Regular rate and rhythm. RESPIRATORY: No accessory muscle use. Clear to auscultation. Breath sounds equal bilaterally. GASTROINTESTINAL: Abdomen flat, soft, non-tender, nondistended. Hepatic and splenic margins not palpable. Left lower quadrant Peg in place MUSCULOSKELETAL: Extremities without clubbing, cyanosis, or edema. No obvious deformities. NEUROLOGICAL: Awake and alert. No obvious cranial nerve deficits. Motor grossly within normal limits. Generalized weakness, moving all 4 extremities. Normal speech. PSYCHIATRIC: Appropriate mood and affect - Urinary Catheter Management Indwelling Temp Sensing Catheter Cath placed during this visit: yes, but has since been removed by the nurse Reason for continuing: Not indwelling catheter Insertion date: 03/12/18 Insertion time: 05:30 Removal date: 03/25/18 Removal time: 18:00 Indwelling Urethral Catheter Cath placed during this visit: yes, but has since been removed by the nurse Reason for continuing: Decision to DC catheter Insertion date: 03/22/18 Insertion time: 17:30 Removal date: 03/25/18 Removal time: 18:00 Condom Cath placed during this visit: yes, but has since been removed by the nurse Reason for continuing: Hourly intake/output Insertion date: 05/13/18 Insertion time: 14:30 Removal date: 03/25/18 Removal time: 18:00 Results - Labs CBC & Chem 7: 06/13/18 06:47 06/13/18 06:47 - Procedures PEG 7 -25 right decompressive craniectomy 03/22/18 with placement of ICP monitor by Dr. Chacko, az'ed 03/23/18 03/22/18 Right frontotemporal parietal decompressive craniectomy and Duroplasty 03/22/18 Left frontal bur hole with placement of an intracranial pressure monitor Assessment and Plan - Assessment (1) Intracranial hemorrhage following injury Code(s): S06.309A - Unspecified focal traumatic brain injury with loss of consciousness of unspecified duration, initial encounter Status: Acute (2) Traumatic brain injury Code(s): S06.9X9A - Unspecified intracranial injury with loss of consciousness of unspecified duration, initial encounter Status: Acute (3) Fall Code(s): W19.XXXA - Unspecified fall, initial encounter Status: Chronic (4) Cocaine abuse Code(s): F14.10 - Cocaine abuse, uncomplicated Status: Chronic (5) ETOH abuse Code(s): F10.10 - Alcohol abuse, uncomplicated Status: Chronic (6) Dysphagia Code(s): R13.10 - Dysphagia, unspecified Status: Acute - Plan 62-year-old male admitted secondary to intracranial hemorrhage Right frontal IPH 53.3 cm. SAH bilat frontal lobes, right parietal, temporal. Right frontotemporal SDH Status post emergency craniectomy for decompression for worsening midline shift right to left 2.1 cm s/p Fall, ?syncope HX Daily alcohol use/Cocaine abuse TBI -debility. -s/p Right frontotemporal parietal decompressive craniectomy and Duroplasty 03/[address] Chacko. -s/p right cranioplasty 05/13/18, incision healing well. -Continue with PT/OT - PT recommends rehab at discharge -Seizure precautions -Palliative care following, appreciate assistance. Per note, patient has improved tremendously. Feels he has capacity to make medical decisions with support of family. Recommended psych consult to assess capacity. Psychiatry consulted, appreciate assistance. -Neuropsychiatry, Dr. Narvaez following, appreciate assistance - he still exhibit signs and symptoms of frontal lobe dysfunction, lack of insight, awareness and judgment. He wishes the PEG to be d/c'ed but he is not eating appropriately, and as such I would caution against that decision at this time. He is [place] . He continues to lack decision making capacity in my opinion because of his neuropsychological clinical presentation. -Monitor for any seizure activity off of Keppra. Continue on Topamax. Neutropenia -likely due to Fortaz. Fortaz discontinued. -Cont to monitor Hypernatremia, resolved -Encourage po fluid intake -monitor Na level Headache -repeat CT head 04/04 showed improvement -repeat CT head 04/26 shows stable exam with large right craniectomy defect and 5 mm midline shift, no hemorrhage -CTA head negative -Neurology following, appreciate assistance. Started on Topamax 50mg BID for likely vascular component. Topamax increased 05/18 to 75mg BID. Consider adding Decadron if headache persist -Patient denies any c/o of headache Dysphagia Protein calorie malnutrition s/p PEG tube placement 03/30/18 -ST re-evaluated and patient given puree diet with nectar thickened liquids. -Calorie count completed, inadequate intake. 04/20 TF resumed - Jevity 1.5 at 75 mls per hour 12 hours at night 7pm to 7am. -Chief Writer following, recommends continued nighttime feeding and supplement -Patient is requesting PEG tube be removed due to persistent nausea with use. Patient has been refusing PEG tube feedings. Will consult buyer liaison to initiate calorie count. As per Dr. Narvaez and Dr. Newell - patient does not have decision making capacity. -Has been refusing tube feeds and some medications on and off. As per Palliative care, patient may be intolerant to tube feeds and Ensure. He understands he needs to increase his intake. Will try better food options through pursuing outside food and different choices. Speech therapy was consulted, patient demonstrates mild oral phase and suspected mild pharyngeal phase swallowing deficits. Recommendations of diet advancement to regular consistency solids, thin liquids. -Needs assistance with all meals, -Continue to encourage PO intake. Add Enlive. -Remeron QHS started. More verbal Acute respiratory failure secondary to failure to protect airway-resolved extubated MRSA pneumonia, status post treatment with IV vancomycin and Rocephin Tobacco abuse Extubated 03/25/2018 -CXR negative 06/10 -Continue as needed duo nebs -Supplemental oxygen as needed -On RA tolerating UTI/Pseudomonas -06/12repeat UA positive for Pseudomonas and Enterococcus Fzecalis - Treated with Ceftazidime, discontinued secondary to neutropenia -cont Cipro Hepatitis C -avoid hepatotoxic agents -patient will need to follow up with GI as outpatient DVT prophylaxis Heparin sq started. Refusing at times. (Cleared By neurosurgery 06/10) Code Status: full code Discussed Condition With: patient and nurse (2) Traumatic brain injury Qualifiers: Encounter type: subsequent encounter
[2018-06-20] MEDS: Mirtazapine 15 MG Tablet PO SCH (20:25)
[2018-06-21 09:12] LABS: Baso % (Auto) 0.7 % (0.0-2.0); Eos # (Auto) 0.1 th/mm3 (0.0-0.4); Eos % (Auto) 4.1 % (0.0-4.0); Hematocrit 36.1 % (39.0-51.0); Lymph # (Auto) 1.6 th/mm3 (1.0-4.8); Lymph % (Auto) 42.6 % (9.0-44.0); Mean Corpuscular HGB Conc 33.2 % (32.0-36.0); Mean Corpuscular Hemoglobin 29.5 pg (27.0-34.0); Mean Platelet Volume 7.5 fL (7.0-11.0); Mono # (Auto) 0.4 th/mm3 (0.0-0.9); Mono % (Auto) 10.2 % (0.0-8.0); Neut # (Auto) 1.5 th/mm3 (1.8-7.7); Neut % (Auto) 42.4 % (16.0-70.0); Platelet Count 209 th/mm3 (150-450); Red Blood Count 4.05 mil/mm3 (4.50-5.90); Red Cell Distribution Width 14.3 % (11.6-17.2); White Blood Count 3.6 th/mm3 (4.0-11.0)
[2018-06-21 09:27] LABS: Anion Gap 8 meq/L (5-15); Blood Urea Nitrogen 22 mg/dL (7-18); Calcium 9.1 mg/dL (8.5-10.1); Carbon Dioxide 24.8 meq/L (21.0-32.0); Chloride 109 meq/L (98-107); Glomerular Filtration Rate Greater Than 89 mL/min (>89); Glucose,Random 98 mg/dL (74-106); Sodium 142 meq/L (136-145)
[2018-06-21] MEDS: Ciprofloxacin 500 MG Tablet NG/OG SCH (09:30)
[2018-06-21] MEDS: Senna/Docusate Sodium 8.6/50 MG Tablet PO SCH ×2 (09:31→22:35)
[2018-06-21] MEDS: Heparin - SQ 10,000 UNITS/ML Vial SQ SCH ×2 (09:32→22:34)
[2018-06-21] MEDS: Topiramate 25 MG Tablet PO SCH ×2 (09:33→22:35)
--- NOTE | 2018-06-21 10:15 | P.PNIM ---
Subjective Interval history: Follow up UTI, ICH, SAH, SDH, generalized weakness. Patient seen and examined sitting on the bed, eating breakfast, nurse in the room. Patient stated sleep well last night and was eating better. Patient denies any headache or dizziness , denies any fever or chills, denies any pain, chest pain or shortness of breath. Patient denies any nausea or vomiting, diarrhea or constipation. Nurse reported no acute complaints, stated patient doing well. Nurse reported patient received feeding at night from the PEG tube. Physical Exam Vital signs: Vital Signs 06/20/18 12:00 06/20/18 16:00 06/20/18 20:00 Temperature 97.5 F L 98.0 F 97.5 F L Pulse Rate 91 H 90 93 H Respiratory Rate 17 17 18 Blood Pressure 103/73 110/75 107/65 Pulse Oximetry 98 98 98 06/21/18 00:00 06/21/18 04:00 06/21/18 08:00 Temperature 98.2 F 97.7 F 98.0 F Pulse Rate 89 81 85 Respiratory Rate 17 19 18 Blood Pressure 102/73 108/70 114/71 Pulse Oximetry 100 98 96 Intake & Output 06/20/18 06/21/18 06/21/18 18:59 06:59 18:59 Intake Total 480 / 480 Output Total 200 / 200 Balance 480 / 480 -200 / -200 Intake: Oral 480 / 480 Output: Urine 200 / 200 Other: # Voids 2 # Incontinent Voids 3 Date of Last Bowel Movement 06/19/18 Narrative: GENERAL: Thin appearing -Citizen Of [place] male in no apparent distress SKIN: Warm and dry. HEAD: right side cranioplasty surgical incision, healing well EYES: Pupils equal and round. No scleral icterus. No injection or drainage. ENT: No nasal bleeding or discharge. Mucous membranes pink and moist. NECK: Trachea midline. No JVD. CARDIOVASCULAR: Regular rate and rhythm. RESPIRATORY: No accessory muscle use. Clear to auscultation. Breath sounds equal bilaterally. GASTROINTESTINAL: Abdomen flat, soft, non-tender, nondistended. Hepatic and splenic margins not palpable. Left lower quadrant Peg in place MUSCULOSKELETAL: Extremities without clubbing, cyanosis, or edema. No obvious deformities. NEUROLOGICAL: Awake and alert x 2. Generalized weakness, moving all 4 extremities with limited range of motion. Normal speech but minimal. PSYCHIATRIC: Flat mood and affect - Urinary Catheter Management Indwelling Temp Sensing Catheter Cath placed during this visit: yes, but has since been removed by the nurse Reason for continuing: Not indwelling catheter Insertion date: 03/12/18 Insertion time: 05:30 Removal date: 03/25/18 Removal time: 18:00 Indwelling Urethral Catheter Cath placed during this visit: yes, but has since been removed by the nurse Reason for continuing: Decision to DC catheter Insertion date: 03/22/18 Insertion time: 17:30 Removal date: 03/25/18 Removal time: 18:00 Condom Cath placed during this visit: yes, but has since been removed by the nurse Reason for continuing: Hourly intake/output Insertion date: 05/13/18 Insertion time: 14:30 Removal date: 03/25/18 Removal time: 18:00 Results - Labs CBC & Chem 7: 06/21/18 08:08 06/21/18 08:08 Laboratory Results - last 24 hr 06/21/18 06/21/18 08:08 08:08 WBC 3.6 L RBC 4.05 L Hgb 12.0 L Hct 36.1 L MCV 89.0 MCH 29.5 MCHC 33.2 RDW 14.3 Plt Count 209 MPV 7.5 Neut % (Auto) 42.4 Lymph % (Auto) 42.6 [place] % (Auto) 10.2 H Eos % (Auto) 4.1 H Baso % (Auto) 0.7 Neut # (Auto) 1.5 L Lymph # (Auto) 1.6 [place] # (Auto) 0.4 Eos # (Auto) 0.1 Baso # (Auto) 0.0 WBC Differential . Differential Comment Auto diff final Sodium 142 Potassium 4.0 Chloride 109 H Carbon Dioxide 24.8 Anion Gap 8 BUN 22 H Creatinine 0.75 Estimated GFR Greater than 89 Random Glucose 98 Calcium 9.1 - Procedures PEG 7 -25 right decompressive craniectomy 03/22/18 with placement of ICP monitor by Dr. Chacko, id'ed 03/23/18 03/22/18 Right frontotemporal parietal decompressive craniectomy and Duroplasty 03/22/18 Left frontal bur hole with placement of an intracranial pressure monitor Assessment and Plan - Assessment (1) Intracranial hemorrhage following injury Code(s): S06.309A - Unspecified focal traumatic brain injury with loss of consciousness of unspecified duration, initial encounter Status: Acute (2) Traumatic brain injury Code(s): S06.9X9A - Unspecified intracranial injury with loss of consciousness of unspecified duration, initial encounter Status: Acute (3) Fall Code(s): W19.XXXA - Unspecified fall, initial encounter Status: Chronic (4) Cocaine abuse Code(s): F14.10 - Cocaine abuse, uncomplicated Status: Chronic (5) ETOH abuse Code(s): F10.10 - Alcohol abuse, uncomplicated Status: Chronic (6) Dysphagia Code(s): R13.10 - Dysphagia, unspecified Status: Acute - Plan This is a 62-year-old male admitted secondary to intracranial hemorrhage Right frontal IPH 53.3 cm. SAH bilat frontal lobes, right parietal, temporal. Right frontotemporal SDH Status post emergency craniectomy for decompression for worsening midline shift right to left 2.1 cm s/p Fall, ?syncope HX Daily alcohol use/Cocaine abuse TBI -debility. -s/p Right frontotemporal parietal decompressive craniectomy and Duroplasty 03/[address] Chacko. -s/p right cranioplasty 05/13/18, incision healing well. -Continue with PT/OT - PT recommends rehab at discharge -Seizure precautions -Palliative care following, appreciate assistance. Per note, patient has improved tremendously. Feels he has capacity to make medical decisions with support of family. Recommended psych consult to assess capacity. Psychiatry consulted, appreciate assistance. -Neuropsychiatry, Dr. Narvaez following, appreciate assistance - noted he still exhibit signs and symptoms of frontal lobe dysfunction, lack of insight, awareness and judgment. He wishes the PEG to be d/c'ed but he is not eating appropriately, and as such I would caution against that decision at this time. He is [place] . He continues to lack decision making capacity in my opinion because of his neuropsychological clinical presentation. -Monitor for any seizure activity off of Keppra. Continue on Topamax. Neutropenia -likely due to Fortaz. Fortaz discontinued. -Cont to monitor Hypernatremia, resolved -Encourage po fluid intake -monitor Na level Headache -repeat CT head 04/04 showed improvement -repeat CT head 04/26 shows stable exam with large right craniectomy defect and 5 mm midline shift, no hemorrhage -CTA head negative -Neurology following, appreciate assistance. Started on Topamax 50mg BID for likely vascular component. Topamax increased 05/18 to 75mg BID. Consider adding Decadron if headache persist -Patient denies any c/o of headache Dysphagia Protein calorie malnutrition s/p PEG tube placement 03/30/18 -ST re-evaluated and patient given puree diet with nectar thickened liquids. -Calorie count completed, inadequate intake. 04/20 TF resumed - Jevity 1.5 at 75 mls per hour 12 hours at night 7pm to 7am. -Art Historian following, recommends continued nighttime feeding and supplement -Patient is requesting PEG tube be removed due to persistent nausea with use. Patient has been refusing PEG tube feedings. Will consult recoverer to initiate calorie count. As per Dr. Narvaez and Dr. Newell - patient does not have decision making capacity. -Has been refusing tube feeds and some medications on and off. As per Palliative care, patient may be intolerant to tube feeds and Ensure. He understands he needs to increase his intake. Will try better food options through pursuing outside food and different choices. Speech therapy was consulted, patient demonstrates mild oral phase and suspected mild pharyngeal phase swallowing deficits. Recommendations of diet advancement to regular consistency solids, thin liquids. Patient tolerating PO better. -Needs assistance with all meals, -Continue to encourage PO intake. -Remeron QHS started. More verbal Acute respiratory failure secondary to failure to protect airway-resolved extubated MRSA pneumonia, status post treatment with IV vancomycin and Rocephin Tobacco abuse Extubated 03/25/2018 -CXR negative 06/10 -Continue as needed duo nebs -Supplemental oxygen as needed -On RA tolerating, No SOB UTI/Pseudomonas -06/12 repeat UA positive for Pseudomonas and Enterococcus Faecalis - initially Treated with Ceftazidime, discontinued secondary to neutropenia - cont Cipro, monitor Hepatitis C -avoid hepatotoxic agents -patient will need to follow up with GI as outpatient DVT prophylaxis: Heparin sq. Refusing at times. (Cleared By neurosurgery 06/10) Code Status: full code Discussed Condition With: nurse and patient (2) Traumatic brain injury Qualifiers: Encounter type: subsequent encounter
[2018-06-21] MEDS: Mirtazapine 15 MG Tablet PO SCH (22:35)
[2018-06-22] MEDS: Topiramate 25 MG Tablet PO SCH ×2 (08:46→20:44)
[2018-06-22] MEDS: Heparin - SQ 10,000 UNITS/ML Vial SQ SCH ×2 (08:46→20:44)
[2018-06-22] MEDS: Senna/Docusate Sodium 8.6/50 MG Tablet PO SCH ×2 (08:49→20:44)
--- NOTE | 2018-06-22 10:12 | P.PNIM ---
Subjective Interval history: Follow up UTI, ICH, SAH, SDH, generalized weakness. Patient seen and examined, laying in bed still sleepy. Patient responded to some questions selectively. Patient follows command. Patient denies any pain or shortness of breath, denies any headache or dizziness, denies any abdominal pain, nausea or vomiting , patient denies any diarrhea or constipation. Nurse in the room stated patient doing better, has been taking his medications. Physical Exam Vital signs: Vital Signs 06/21/18 12:00 06/21/18 16:00 06/21/18 20:00 Temperature 98.0 F 97.2 F L 97.9 F Pulse Rate 81 83 77 Respiratory Rate 16 14 19 Blood Pressure 106/70 117/78 111/75 Pulse Oximetry 98 96 99 06/22/18 00:00 06/22/18 04:00 Temperature 97.7 F 98.5 F Pulse Rate 86 90 Respiratory Rate 18 15 Blood Pressure 111/79 109/65 Pulse Oximetry 98 96 Intake & Output 06/21/18 06/22/18 06/22/18 18:59 06:59 18:59 Weight 53.4 kg Other: # Voids 3 Date of Last Bowel Movement 06/19/18 Narrative: GENERAL: Thin appearing -[place] male in no apparent distress SKIN: Warm and dry. HEAD: right side cranioplasty surgical incision, healing well EYES: Pupils equal and round. No scleral icterus. No injection or drainage. ENT: No nasal bleeding or discharge. Mucous membranes pink and moist. NECK: Trachea midline. No JVD. CARDIOVASCULAR: Regular rate and rhythm. RESPIRATORY: No accessory muscle use. Clear to auscultation. Breath sounds equal bilaterally. GASTROINTESTINAL: Abdomen flat, soft, slight tenderness on palpation on left lower quadrant/PEG tube area, nondistended. Hepatic and splenic margins not palpable. Left lower quadrant Peg in place MUSCULOSKELETAL: Extremities without clubbing, cyanosis, or edema. No obvious deformities. NEUROLOGICAL: Awake and alert x 2. Generalized weakness, moving all 4 extremities with limited range of motion. Normal speech but minimal. PSYCHIATRIC: Flat mood and affect - Urinary Catheter Management Indwelling Temp Sensing Catheter Cath placed during this visit: yes, but has since been removed by the nurse Reason for continuing: Not indwelling catheter Insertion date: 03/12/18 Insertion time: 05:30 Removal date: 03/25/18 Removal time: 18:00 Indwelling Urethral Catheter Cath placed during this visit: yes, but has since been removed by the nurse Reason for continuing: Decision to DC catheter Insertion date: 03/22/18 Insertion time: 17:30 Removal date: 03/25/18 Removal time: 18:00 Condom Cath placed during this visit: yes, but has since been removed by the nurse Reason for continuing: Hourly intake/output Insertion date: 05/13/18 Insertion time: 14:30 Removal date: 03/25/18 Removal time: 18:00 Results - Labs CBC & Chem 7: 06/21/18 08:08 06/21/18 08:08 - Procedures PEG 7 -25 right decompressive craniectomy 03/22/18 with placement of ICP monitor by Dr. Chacko, mi'ed 03/23/18 03/22/18 Right frontotemporal parietal decompressive craniectomy and Duroplasty 03/22/18 Left frontal bur hole with placement of an intracranial pressure monitor Assessment and Plan - Assessment (1) Intracranial hemorrhage following injury Code(s): S06.309A - Unspecified focal traumatic brain injury with loss of consciousness of unspecified duration, initial encounter Status: Acute (2) Traumatic brain injury Code(s): S06.9X9A - Unspecified intracranial injury with loss of consciousness of unspecified duration, initial encounter Status: Acute (3) Fall Code(s): W19.XXXA - Unspecified fall, initial encounter Status: Chronic (4) Cocaine abuse Code(s): F14.10 - Cocaine abuse, uncomplicated Status: Chronic (5) ETOH abuse Code(s): F10.10 - Alcohol abuse, uncomplicated Status: Chronic (6) Dysphagia Code(s): R13.10 - Dysphagia, unspecified Status: Acute - Plan This is a 62-year-old male admitted secondary to intracranial hemorrhage TBI, Right frontal IPH 53.3 cm. SAH bilat frontal lobes, right parietal, temporal. Right frontotemporal SDH Status post emergency craniectomy for decompression for worsening midline shift right to left 2.1 cm s/p Fall, ?syncope HX Daily alcohol use/Cocaine abuse -s/p Right frontotemporal parietal decompressive craniectomy and Duroplasty 03/[address] Chacko. -s/p right cranioplasty 05/13/18, incision healing well. -Continue with PT/OT - PT recommends rehab at discharge -Seizure precautions -Palliative care following -Neuropsychiatry, Dr. Narvaez following: Noted signs and symptoms of frontal lobe dysfunction and lack decision making capacity -Monitor for any seizure activity off of Keppra. Continue on Topamax. No headache, no dizziness Neutropenia -likely due to Fortaz. Fortaz discontinued. -Cont to monitor, recent WBC 3.6 on 06/21 Hypernatremia, resolved -Encourage po fluid intake -monitor Na level, recent 142 on 06/21 Headache -repeat CT head 04/04 showed improvement -repeat CT head 04/26 shows stable exam with large right craniectomy defect and 5 mm midline shift, no hemorrhage -CTA head negative -Neurology following, appreciate assistance. Started on Topamax 50mg BID for likely vascular component. Topamax increased 05/18 to 75mg BID. Consider adding Decadron if headache persist -Patient denies any c/o of headache -continue on Topamax Dysphagia Protein calorie malnutrition s/p PEG tube placement 03/30/18 -ST re-evaluated and patient given puree diet with nectar thickened liquids. -Dietitian consult: Recommend Jevity 1.5 @ 85 mls/hr from 7pm -7am to provide 1530 kcals and 65 gms protein -Paint Roller Covers Supervisor following, recommends continued nighttime feeding and supplement -Patient previously refusing PEG tube, per Dr. Narvaez and Dr. Newell - patient does not have decision making capacity. -Patient has been more cooperative with the tube feeding on at night 7P to 7- day. Patient tolerating PO better. -Needs assistance with all meals, -Continue to encourage PO intake. -Remeron QHS started, continue ensure for supplements -will discuss with dietary if feeding will be off earlier around 6, patient might be able to tolerate more of the PO diet. -left upper quadrant pain on palpation, will obtain abdominal x-ray to r/o ileus Acute respiratory failure secondary to failure to protect airway-resolved extubated MRSA pneumonia, status post treatment with IV vancomycin and Rocephin Hx Tobacco abuse Extubated 03/25/2018 -CXR negative 06/10 -Continue as needed duo nebs -Supplemental oxygen as needed -On RA tolerating, No SOB UTI/Pseudomonas -06/12 repeat UA positive for Pseudomonas and Enterococcus Faecalis - initially Treated with Ceftazidime, discontinued secondary to neutropenia -s/p antbx treatment with Cipro, monitor signs and symptoms Hepatitis C -avoid hepatotoxic agents -patient will need to follow up with GI as outpatient DVT prophylaxis: Heparin sq. Refusing at times. (Cleared By neurosurgery 06/10) Code Status: ful code Discussed Condition With: patient and nurse Discharge Planning: D/C planning for SNF/Rehab facility when bed available (2) Traumatic brain injury Qualifiers: Encounter type: subsequent encounter
--- NOTE | 2018-06-22 11:25 | P.DIET ---
Nutritional Evaluation Type of nutrition evaluation: follow-up Nutrition consult regarding: Tube Feeding [place] [facility] [place] [facility] [place]. [place] requesting PEG removal[place] Scre[place] comments[place] [facility] [place] Trial to turn off TF at 6am to improve intake Subjective Subjective Comments: Improved po intake yesterday. B-50%, L-50%, D-75% Objective - Diagnosis ICH, SAH, Syncope - Objective % IBW: 87 (IBW = 166#) Body Weight Used for Calculations: Actual (65.4 kg) Energy Needs - Lower Range (kCal/kg): 28 Energy Needs - Upper Range (kCal/kg): 33 Lower Limit kCal/kg (kCals): 1,831 Upper Limit kCal/kg (kCals): 2,158 Lower Limit Protein Factor (Grams per Kg): 1.2 Upper Limit Protein Factor (Grams per Kg): 1.5 Lower Protein Needs (Protein): 79 Upper Protein Needs (Protein): 98 Fluid Factor (ml/kg): 28 Estimated Fluid Needs (ml): 1,831 Dietitian Reviewed in Medical Record: Current diet, Curent medications, Intake & Output, Labs, Medical history, Tube feeding, Wound/DTI Diet Order: Mechanical Soft Speech Therapy Recommendations: Yes Objective Comments: PMH: COPD, Asthma, tobacco abuse, daily ETOH use 03/22 R front temporal parietal decompressive craniectomy Integumentary: coccyx pressure injury PEG placement 03/30/18 9 R frontal temporal parietal cranioplasty Feeding - Current Tube Feeding Tube Feeding Product: Jevity 1.5 Tube Feeding Rate: 85 (mls/hr x 12 hours) Tube Feeding Route: gastrostomy Current kCals Provided by Tube Feedin,530 Current Protein Provided by Tube Feeding (gPRO): 65 - Current PO Supplement Current Supplement: Ensure Enlive Current Frequency of Supplement: Three times a day Current kCals Provided by Supplement: 350 Current Protein Provided by Supplement: 20 Supplement Comments: plus Ensure Pudding(= 170 kcal and 4g protein per serving) Assessment Assessment: PO intake shows improving trend this week. Still inadequate to meet nutritional needs. Pt had been refusing some meals and his night time TFing but is now more accepting. Current diet is mechanical soft with Ensure Enlive and Ensure Pudding added. CBW is 53.4 kg which indicates weight loss since admission. Recommend continue night time TFing to supplement po intake to prevent further nutritional compromise. Recommend Jevity 1.5 @ 85 mls/hr from 6pm -6am to provide 1530 kcals and 65 gms protein. Changing the time that the TF is turned off may help increase intake at breakfast. Pt is still unable to meet nutritional needs with po intake alone. Benefits from full assistance at meals. Goal would be to discontinue TF at some point but pt's po intake is still not adequate at this time. Recommendations: 1. Diet per ST 2. Jevity 1.5 @ 85 mls/hr x 12 hours a night: run time 6pm-6am 3.Continue Ensure Enlive TID 4.Continue Ensure Pudding TID 5. Please provide full assistance at meals Dietitian to Monitor: Lab values, Supplement acceptance, Intake & Output, Diet tolerance, Weight change, PO Intake, Wound/skin status, Medical course
--- NOTE | 2018-06-22 13:35 | XR ---
EXAM DATE: 06/22/2018 12:00 AM EDT AGE/SEX: 63 years / Male INDICATIONS: Abdominal pain on left upper quadrant. CLINICAL DATA: This is the patient's initial encounter. Patient reports that signs and symptoms have been present for 1 day and indicates a pain score of 0/10. MEDICAL/SURGICAL HISTORY: None. . Gastric tube placement. COMPARISON: [facility] [place], ABDOMEN 1V KUB, 03/17/2018. . FINDINGS: Gastrostomy tube in left upper quadrant. Moderate stool throughout the colon. Minimal degenerative c hanges in the lower lumbar spine. CONCLUSION: Gastrostomy tube evident left upper quadrant Moderate stool otherwise negative Electronically signed by: Raleigh Sosa MD 06/22/2018 1:34 PM EDT
[2018-06-22] MEDS: Mirtazapine 15 MG Tablet PO SCH (20:45)
[2018-06-23] MEDS: Heparin - SQ 10,000 UNITS/ML Vial SQ SCH ×2 (09:17→19:59)
[2018-06-23] MEDS: Senna/Docusate Sodium 8.6/50 MG Tablet PO SCH ×2 (09:17→19:59)
[2018-06-23] MEDS: Topiramate 25 MG Tablet PO SCH ×2 (09:17→20:00)
--- NOTE | 2018-06-23 09:29 | P.PNIM ---
Subjective Interval history: Follow up UTI, ICH, SAH, SDH, generalized weakness. Patient seen and examined, laying in, more alert and oriented today, with good conversation. Patient answers to questions appropriately with smile. Patient stated getting out of bed sometime, stated not today. Patient encouraged to be out of bed more, encouraged to increase meals, when offered Ensure patient is not resistant to it she he took it and try to drink it. The tray was set up in front of him. Patient seems like in positive attitude today. Not refusing anything. Patient denies any headache or dizziness, denies any pain, chest pain, or shortness of breath. Patient denies any abdominal pain, nausea, vomiting, diarrhea or constipation. Patient denies any fever or chills. Physical Exam Vital signs: Vital Signs 06/22/18 12:00 06/22/18 16:00 06/22/18 20:00 Temperature 97.7 F 97.9 F 98.5 F Pulse Rate 83 88 88 Respiratory Rate 17 16 16 Blood Pressure 108/77 102/69 113/77 Pulse Oximetry 97 99 99 06/23/18 00:00 06/23/18 04:00 06/23/18 06:53 Temperature 97.8 F 97.7 F Pulse Rate 82 75 Respiratory Rate 16 16 12 Blood Pressure 107/69 108/69 Pulse Oximetry 98 98 Intake & Output 06/22/18 06/23/18 06/23/18 18:59 06:59 18:59 Weight 55.1 kg Other: Date of Last Bowel Movement 06/21/18 06/22/18 Narrative: GENERAL: Thin appearing -[place] male in no apparent distress SKIN: Warm and dry. HEAD: right side cranioplasty surgical incision, healing well EYES: Pupils equal and round. No scleral icterus. No injection or drainage. ENT: No nasal bleeding or discharge. Mucous membranes pink and moist. NECK: Trachea midline. No JVD. CARDIOVASCULAR: Regular rate and rhythm. RESPIRATORY: No accessory muscle use. Clear to auscultation. Breath sounds equal bilaterally. GASTROINTESTINAL: Abdomen flat, soft, slight tenderness on palpation on left lower quadrant/PEG tube area, nondistended. Hepatic and splenic margins not palpable. Left lower quadrant Peg in place MUSCULOSKELETAL: Extremities without clubbing, cyanosis, or edema. No obvious deformities. NEUROLOGICAL: Awake and alert x 3. Generalized weakness, moving all 4 extremities with limited range of motion. Normal speech, improving, more conversant today. PSYCHIATRIC: Flat mood and affect - Urinary Catheter Management Indwelling Temp Sensing Catheter Cath placed during this visit: yes, but has since been removed by the nurse Reason for continuing: Not indwelling catheter Insertion date: 03/12/18 Insertion time: 05:30 Removal date: 03/25/18 Removal time: 18:00 Indwelling Urethral Catheter Cath placed during this visit: yes, but has since been removed by the nurse Reason for continuing: Decision to DC catheter Insertion date: 03/22/18 Insertion time: 17:30 Removal date: 03/25/18 Removal time: 18:00 Condom Cath placed during this visit: yes, but has since been removed by the nurse Reason for continuing: Hourly intake/output Insertion date: 05/13/18 Insertion time: 14:30 Removal date: 03/25/18 Removal time: 18:00 Results - Labs CBC & Chem 7: 06/21/18 08:08 06/21/18 08:08 - Imaging Impressions Abdomen X-Ray 06/22/18 00:00 CONCLUSION: Gastrostomy tube evident left upper quadrant Moderate stool otherwise negative - Procedures PEG 7 -25 right decompressive craniectomy 03/22/18 with placement of ICP monitor by Dr. Chacko, de'ed 03/23/18 03/22/18 Right frontotemporal parietal decompressive craniectomy and Duroplasty 03/22/18 Left frontal bur hole with placement of an intracranial pressure monitor Assessment and Plan - Assessment (1) Intracranial hemorrhage following injury Code(s): S06.309A - Unspecified focal traumatic brain injury with loss of consciousness of unspecified duration, initial encounter Status: Acute (2) Traumatic brain injury Code(s): S06.9X9A - Unspecified intracranial injury with loss of consciousness of unspecified duration, initial encounter Status: Acute (3) Fall Code(s): W19.XXXA - Unspecified fall, initial encounter Status: Chronic (4) Cocaine abuse Code(s): F14.10 - Cocaine abuse, uncomplicated Status: Chronic (5) ETOH abuse Code(s): F10.10 - Alcohol abuse, uncomplicated Status: Chronic (6) Dysphagia Code(s): R13.10 - Dysphagia, unspecified Status: Acute - Plan This is a 62-year-old male admitted secondary to intracranial hemorrhage TBI, Right frontal IPH 53.3 cm. SAH bilat frontal lobes, right parietal, temporal. Right frontotemporal SDH Status post emergency craniectomy for decompression for worsening midline shift right to left 2.1 cm s/p Fall, ?syncope HX Daily alcohol use/Cocaine abuse -s/p Right frontotemporal parietal decompressive craniectomy and Duroplasty 03/[address] Chacko. -s/p right cranioplasty 05/13/18, incision healing well. -Continue with PT/OT - PT recommends rehab at discharge -Seizure precautions -Palliative care following -Neuropsychiatry, Dr. Narvaez following: Noted signs and symptoms of frontal lobe dysfunction and lack decision making capacity -Monitor for any seizure activity off of Keppra. - Continue on Topamax. No headache, no dizziness Neutropenia -likely due to Fortaz. Fortaz discontinued. -Cont to monitor, recent WBC 3.6 on 06/21 Hypernatremia, resolved -Encourage po fluid intake -monitor Na level, recent 142 on 06/21 Headache-improved -repeat CT head 04/04 showed improvement, -repeat CT head 04/26 shows stable exam with large right craniectomy defect and 5 mm midline shift, no hemorrhage -CTA head negative -Neurology following, appreciate assistance. Topamax 50mg BID for likely vascular component. Topamax increased 05/18 to 75mg BID. Consider adding Decadron if headache persist -Patient denies any c/o of headache -continue on Topamax Dysphagia Protein calorie malnutrition s/p PEG tube placement 03/30/18 -ST re-evaluated and patient given puree diet with nectar thickened liquids. -Dietitian consult: Recommend Jevity 1.5 @ 85 mls/hr from 6pm -6am to provide 1530 kcals and 65 gms protein -Second Grade Teacher following, recommends continued nighttime feeding and supplement -Patient previously refusing PEG tube, per Dr. Narvaez and Dr. Newell - patient does not have decision making capacity. -Patient has been more cooperative with the tube feeding on at night changed to 6P to 6A. Patient tolerating PO better. -Needs assistance with all meals, -Continue to encourage PO intake. -Remeron QHS started, continue ensure for supplements -feeding time changed to 6P-6A for trial for patient might tolerate more of the PO diet. -left upper quadrant pain on palpation, abdominal x-ray negative, likely discomfort from the Peg Tube as patient has very minimal muscle mass Acute respiratory failure secondary to failure to protect airway-resolved extubated MRSA pneumonia, status post treatment with IV vancomycin and Rocephin Hx Tobacco abuse Extubated 03/25/2018 -CXR negative 06/10 -Continue as needed duo nebs -Supplemental oxygen as needed -On RA tolerating, No SOB UTI/Pseudomonas -06/12 repeat UA positive for Pseudomonas and Enterococcus Faecalis - initially Treated with Ceftazidime, discontinued secondary to neutropenia -s/p antbx treatment with Cipro, monitor signs and symptoms Hepatitis C -avoid hepatotoxic agents -patient will need to follow up with GI as outpatient DVT prophylaxis: Heparin sq. Refusing at times. (Cleared By neurosurgery 06/10) Code Status: full code Discussed Condition With: patient and nurse Discharge Planning: D/C planning for SNF/Rehab facility when bed available (2) Traumatic brain injury Qualifiers: Encounter type: subsequent encounter
[2018-06-23] MEDS ORDERED: Influenza (Quadrivalent) Vaccine 0.5 ML Syringe IM ONE (10:15)
--- NOTE | 2018-06-23 15:08 | P.PNPAL ---
Reason for Visit Reason for visit: a. To assist with evaluation and management of symptoms including:pain, anxiety , debility b. To assist medical decision maker(s) with: better understanding of current medical conditions; weighing benefits/burdens of medical treatment options; making medical treatment decisions. Subjective Subjective/Interval History: Palliative care reconsulted today per medical attending to reassess goals, palliative continues to follow this pt, seen today in follow up. d/p cranioplasty for bone flap replacement 05/13. Mr. Jain is seen lying in bed today. Oriented to self and place. He knows he is in the hospital due to "brain bleeding", he knows his birthday. Somewhat subdued from last visit on 06/16/18. He states that he feels a little tired today but otherwise voices no complaints. He denies any further nausea. States he has not had a headache in a while. He states that he has been getting out of bed more with physical therapy and states he got out of bed today. He also states he is trying to eat more, though his lunch try is by his bedside untouched. He states he's more tired than hungry at this time. It is noted that he was started on mirtazapine 15mg on 06/18/18. Labs from 06/21/18 as follows" * WBC 3.6, RBC 4.05, Hcg 12.0, Hct 36.1 * Na 142, K+ 4.0, Cl 109, BUN 22, Creatinine 0.75 Case was discussed with RN and Raghavendra Lee APRN Advance Directives Health Care Surrogate: Copy in medical record (oral HCS form on file) Health Care Surrogate Name and Number: Wilson Jimenez [phone] Documented care wishes:: There is no documented living will Significant change in goals:: Goals remain aggressive at this time Objective Vital Signs: Vital Signs 06/22/18 16:00 06/22/18 20:00 06/23/18 00:00 Temperature 97.9 F 98.5 F 97.8 F Pulse Rate 88 88 82 Respiratory Rate 16 16 16 Blood Pressure 102/69 113/77 107/69 Pulse Oximetry 99 99 98 06/23/18 04:00 06/23/18 06:53 06/23/18 08:00 Temperature 97.7 F 97.7 F Pulse Rate 75 72 Respiratory Rate 16 12 20 Blood Pressure 108/69 109/66 Pulse Oximetry 98 98 06/23/18 12:00 06/23/18 12:55 Temperature 97.7 F Pulse Rate 99 H Respiratory Rate 20 12 Blood Pressure 115/75 Pulse Oximetry 20 L Intake & Output 06/22/18 06/23/18 06/23/18 18:59 06:59 18:59 Weight 55.1 kg Other: Date of Last Bowel Movement 06/21/18 06/22/18 06/22/18 Physical Exam: CONSTITUTIONAL/GENERAL: This is a frail 62 year old male. alert, pleasant SKIN: No jaundice, rashes, or lesions. HEAD: well healed incision to head, asymptomatic. EYES: pupils equal, reactive. no injection or drainage CARDIOVASCULAR: Regular rate and rhythm without murmur. No JVD. Peripheral pulses symmetric. RESPIRATORY/CHEST: Symmetric, unlabored respirations. on room air. Clear to auscultation. Breath sounds equal bilaterally. GASTROINTESTINAL: Abdomen soft, non-tender, nondistended. peg tube in place. Site asymptomatic. NEUROLOGICAL: alert, mostly oriented. cooperative. limited insight.moves all 4 extremities. PSYCHIATRIC: cooperative, no apparent anxiety or depression Diagnostic Tests Laboratory: Laboratory Results - last 72 hr 06/21/18 06/21/18 08:08 08:08 WBC 3.6 L RBC 4.05 L Hgb 12.0 L Hct 36.1 L MCV 89.0 MCH 29.5 MCHC 33.2 RDW 14.3 Plt Count 209 MPV 7.5 Neut % (Auto) 42.4 Lymph % (Auto) 42.6 O'Brien % (Auto) 10.2 H Eos % (Auto) 4.1 H Baso % (Auto) 0.7 Neut # (Auto) 1.5 L Lymph # (Auto) 1.6 O'Brien # (Auto) 0.4 Eos # (Auto) 0.1 Baso # (Auto) 0.0 WBC Differential . Differential Comment Auto diff final Sodium 142 Potassium 4.0 Chloride 109 H Carbon Dioxide 24.8 Anion Gap 8 BUN 22 H Creatinine 0.75 Estimated GFR Greater than 89 Random Glucose 98 Calcium 9.1 Result Diagrams: 06/21/18 08:08 06/21/18 08:08 Imaging: Impressions Abdomen X-Ray 06/22/18 00:00 CONCLUSION: Gastrostomy tube evident left upper quadrant Moderate stool otherwise negative Assessment and Plan - Symptom Scale (1) Head ache 0-10 Scale: 0 Comment: denies (2) Nausea 0-10 Scale: 0 Comment: Resolving, since timing change on tube feeding (3) Protein calorie malnutrition 0-10 Scale: Unable to quantify Comment: added remeron, diet was changed 06/23/18 to regular, should allow more choice Pertinent Non-Medical Issues: Psychosocial:worked in [employer]. hx of etoh drug abuse. Has 2 chilren, on Daughter (i do not have name or contact at this point) and Son Wilson Jimenez [phone] Spiritual:did not disclose Legal:The patient was able to verbally designate his son, Wilson Jimenez as his HCS 04/2018. Copy is scanned in EMR Ethical issues impacting care: Important Contacts: Zeke Jimenez [phone] Daughter Prognosis: Pt is 62 male (copd/asthma/etoh/tobacco/coccaine abuse) who had syncopy, fell and hit his head. He had a 5x 3 right frontal lobe hemorrhage. Initially it was medical managment, but subsequent ct and neuro status worsened. 03/11 patient was intubated. 03/21: CT Head significant worsening of the [id number] midline shift frontal region, now measuring 2.1 cm, decreasing density of r frontal hematoma. 03/22 pt underwent right frontotemporal parietal decompressive craniectomy and duroplasty by Dr. Chacko. Eventually he was able to become alert enough and protect his airway enough to undergo medical extubation. He pulled his NG tube, so was peg tube was placed on 03/30. Neurologically he seem to be making progress with hospitalist documenting he is ambulating with assisstance in a walker. He has improve tremedously and I think if he is compliant there is a good chance he can get strong enough to stop tube feedings and improve. I will check with neurosurgery but I feel his prognosis is > 6 months at this point if he was compliant. Code Status: Full Code (by default) Plan: == capacity-mental status fluctuates status post TBI. He appears at the very least can participate in making medical decisions, with the support of family. He completed verbal designation of son Wilson as HCS == code status: full code. == Goals of care: Goals remain aggressive, has made enough progress that he is no longer hospice appropriate. 06/16/18 patient more engaged, endorses reasonable requests for improving eating.wants more food variety/choices. Still without full insight. Not intentionally wanting to not eat or "starve". VM left for son. 06/23/18 patient with more flat affect today though appropriate. States he is trying to eat more and move more to 'make himself better' == Symptom: --BATISTA- s/p surgery, intraparenchymal bleed. he has PRN Tylenol available, as well as prn norco. Has been started on Toprol for BATISTA per neurology. Now status post cranioplasty. States he has not has a headache in a while, denies any today --nausea- Resolving, per patient. He denies any nausea with tube feed or Ensure. --Malnutrition:He states he is trying to eat more though lunch try is at bedside untouched. Per dietary records, he is consuming more throughout the day. Was started on mirtazapine 15mg on 06/18/18. Does not appears diet has not been changed to regular per speech recommendations. Discussed with Raghavendra Lee APRN to have diet advanced. She also changed Tfeed hours to 6p-6a instead of 7p- 7a. Pt has been more tolerant of time change. --flat/unengaged in rehab efforts- r/t brain injury. neuropsych rec. 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 Poor insight/judgement per neuro, neuropsych. == Palliative care will continue to follow PRN during hospital course as condition evolves, to assist patient/decision-maker with understanding of medical conditions, weighing benefits/burdens of treatment options, for clarification of goals of treatment. Additionally will assist with any symptoms of palliative concern PRN / Attestation Attestation: To help prompt me to consider important information that might be impacting today's encounter and assessment, information from prior notes written by myself or my colleagues may have been "brought forward" into today's note. My signature on this note, however, is an attestation that I personally performed the exam, history, and/or decision-making noted today, and, unless otherwise indicated, the interactions with patient, family, and staff as well as the review of records all occurred today. I also attest that the listed assessment and stated plan reflect my best clinical judgment today based on the combination of historical information, prior notes, and today's exam/ interactions. When time spent is documented, it refers only to time spent today by the signer, or if indicated, combined time spent today by collaborating physician/nurse practitioner.
[2018-06-23] MEDS: Mirtazapine 15 MG Tablet PO SCH (20:00)
[2018-06-24] MEDS: Senna/Docusate Sodium 8.6/50 MG Tablet PO SCH ×2 (08:41→22:18)
[2018-06-24] MEDS: Heparin - SQ 10,000 UNITS/ML Vial SQ SCH ×2 (08:41→22:17)
[2018-06-24] MEDS: Topiramate 25 MG Tablet PO SCH ×2 (08:41→22:27)
--- NOTE | 2018-06-24 11:19 | P.PNIM ---
Subjective Interval history: Follow up UTI, ICH, SAH, SDH, generalized weakness. Patient awake and more alert today, ate most of the fluid in the tray for breakfast today, denies any abdominal pain, nausea or vomiting. Patient states that he is eating better. Discussed with patient the plan to discontinue tube feeding if he eats more patient agrees and verbalized understanding. Patient denies any headache or dizziness, denies any pain, chest pain or shortness of breath. Patient denies any diarrhea or constipation. Patient denies any fever or chills. Physical Exam Vital signs: Vital Signs 06/23/18 12:00 06/23/18 12:55 06/23/18 15:01 Temperature 97.7 F Pulse Rate 99 H Respiratory Rate 20 12 12 Blood Pressure 115/75 Pulse Oximetry 20 L 06/23/18 16:00 06/23/18 20:00 06/24/18 00:00 Temperature 97.9 F 97.7 F 98.1 F Pulse Rate 85 89 80 Respiratory Rate 20 19 18 Blood Pressure 105/61 110/69 109/69 Pulse Oximetry 98 99 97 06/24/18 04:00 06/24/18 07:00 06/24/18 08:00 Temperature 97.7 F 98.5 F Pulse Rate 78 82 Respiratory Rate 18 12 16 Blood Pressure 115/70 101/68 Pulse Oximetry 98 Intake & Output 06/23/18 06/24/18 06/24/18 18:59 06:59 18:59 Intake Total 480 / 480 341 / 341 Balance 480 / 480 341 / 341 Weight 55.2 kg Intake: Oral 480 / 480 221 / 221 Water Bolus Amount 120 / 120 Other: # Voids 2 # Incontinent Voids 1 Date of Last Bowel Movement 06/22/18 06/23/18 06/22/18 Narrative: GENERAL: Thin appearing -[place] male in no apparent distress SKIN: Warm and dry. Bilateral feet with dry skin HEAD: right side cranioplasty surgical incision, healing well EYES: Pupils equal and round. No scleral icterus. No injection or drainage. ENT: No nasal bleeding or discharge. Mucous membranes pink and moist. NECK: Trachea midline. No JVD. CARDIOVASCULAR: Regular rate and rhythm. RESPIRATORY: No accessory muscle use. Clear to auscultation. Breath sounds equal bilaterally. GASTROINTESTINAL: Abdomen flat, soft, slight tenderness on palpation on left lower quadrant/PEG tube area, nondistended. Hepatic and splenic margins not palpable. Left lower quadrant Peg in place MUSCULOSKELETAL: Extremities without clubbing, cyanosis, or edema. No obvious deformities. NEUROLOGICAL: Awake and alert x 3. Generalized weakness, moving all 4 extremities with limited range of motion. Normal speech, improving, more conversant today. PSYCHIATRIC: Flat mood and affect - Urinary Catheter Management Indwelling Temp Sensing Catheter Cath placed during this visit: yes, but has since been removed by the nurse Reason for continuing: Not indwelling catheter Insertion date: 03/12/18 Insertion time: 05:30 Removal date: 03/25/18 Removal time: 18:00 Indwelling Urethral Catheter Cath placed during this visit: yes, but has since been removed by the nurse Reason for continuing: Decision to DC catheter Insertion date: 03/22/18 Insertion time: 17:30 Removal date: 03/25/18 Removal time: 18:00 Condom Cath placed during this visit: yes, but has since been removed by the nurse Reason for continuing: Hourly intake/output Insertion date: 05/13/18 Insertion time: 14:30 Removal date: 03/25/18 Removal time: 18:00 Results - Labs CBC & Chem 7: 06/21/18 08:08 06/21/18 08:08 - Procedures PEG 7 -25 right decompressive craniectomy 03/22/18 with placement of ICP monitor by Dr. Chacko, ut'ed 03/23/18 03/22/18 Right frontotemporal parietal decompressive craniectomy and Duroplasty 03/22/18 Left frontal bur hole with placement of an intracranial pressure monitor Assessment and Plan - Assessment (1) Intracranial hemorrhage following injury Code(s): S06.309A - Unspecified focal traumatic brain injury with loss of consciousness of unspecified duration, initial encounter Status: Acute (2) Traumatic brain injury Code(s): S06.9X9A - Unspecified intracranial injury with loss of consciousness of unspecified duration, initial encounter Status: Acute (3) Fall Code(s): W19.XXXA - Unspecified fall, initial encounter Status: Chronic (4) Cocaine abuse Code(s): F14.10 - Cocaine abuse, uncomplicated Status: Chronic (5) ETOH abuse Code(s): F10.10 - Alcohol abuse, uncomplicated Status: Chronic (6) Dysphagia Code(s): R13.10 - Dysphagia, unspecified Status: Acute - Plan This is a 62-year-old male admitted secondary to intracranial hemorrhage TBI, Right frontal IPH 53.3 cm. SAH bilat frontal lobes, right parietal, temporal. Right frontotemporal SDH Status post emergency craniectomy for decompression for worsening midline shift right to left 2.1 cm s/p Fall, ?syncope HX Daily alcohol use/Cocaine abuse -s/p Right frontotemporal parietal decompressive craniectomy and Duroplasty 03/[address] Chacko. -s/p right cranioplasty 05/13/18, incision healing well. -Continue with PT/OT - PT recommends rehab at discharge -Seizure precautions -Palliative care following -Neuropsychiatry, Dr. Narvaez following: Noted signs and symptoms of frontal lobe dysfunction and lack decision making capacity -Monitor for any seizure activity off of Keppra. - Continue on Topamax. No headache, no dizziness Neutropenia -likely due to Fortaz. Fortaz discontinued. -Cont to monitor, recent WBC 3.6 on 06/21 Hypernatremia, resolved -Encourage po fluid intake -monitor Na level, recent 142 on 06/21 Headache-improved -repeat CT head 04/04 showed improvement, -repeat CT head 04/26 shows stable exam with large right craniectomy defect and 5 mm midline shift, no hemorrhage -CTA head negative -Neurology following, appreciate assistance. Topamax 50mg BID for likely vascular component. Topamax increased 05/18 to 75mg BID. Consider adding Decadron if headache persist -Patient denies any c/o of headache -continue on Topamax Dysphagia Protein calorie malnutrition s/p PEG tube placement 03/30/18 -ST recommended regular solids, thin liquids. -Dietitian consult: Recommend Jevity 1.5 @ 85 mls/hr from 6pm -6am to provide 1530 kcals and 65 gms protein, continue supplements -Patient previously refusing PEG tube, per Dr. Narvaez and Dr. Newell - patient does not have decision making capacity. -Patient has been more cooperative with the tube feeding on at night changed to 6P to 6A. Patient tolerating PO better. -Needs assistance with all meals, -Continue to encourage PO intake. -Remeron QHS started, continue ensure for supplements -feeding time changed to 6P-6A for trial for patient might tolerate more of the PO diet. Advance diet as tolerated. -left upper quadrant pain on palpation, abdominal x-ray negative, likely discomfort from the Peg Tube as patient has very minimal muscle mass, no pain today Acute respiratory failure secondary to failure to protect airway-resolved extubated MRSA pneumonia, status post treatment with IV vancomycin and Rocephin Hx Tobacco abuse Extubated 03/25/2018 -CXR negative 06/10 -Continue as needed duo nebs -Supplemental oxygen as needed -On RA tolerating, SPO2 98% in room air, - no SOB, no coughing UTI/Pseudomonas -06/12 repeat UA positive for Pseudomonas and Enterococcus Faecalis - initially Treated with Ceftazidime, discontinued secondary to neutropenia -s/p antbx treatment with Cipro, no signs and symptoms, monitor Hepatitis C -avoid hepatotoxic agents -patient will need to follow up with GI as outpatient DVT prophylaxis: Heparin sq. (Cleared By neurosurgery 06/10) Patient is more cooperative with medications and treatment at this time Code Status: Full code Discussed Condition With: Patient, nurse, palliative care nurse practitioner Discharge Planning: D/C planning for SNF/Rehab facility when bed available (2) Traumatic brain injury Qualifiers: Encounter type: subsequent encounter
[2018-06-24] MEDS: Mirtazapine 15 MG Tablet PO SCH (22:27)
[2018-06-25] MEDS: Topiramate 25 MG Tablet PO SCH ×2 (08:19→20:20)
[2018-06-25] MEDS: Heparin - SQ 10,000 UNITS/ML Vial SQ SCH ×2 (08:20→20:25)
[2018-06-25] MEDS: Senna/Docusate Sodium 8.6/50 MG Tablet PO SCH ×2 (08:20→20:25)
--- NOTE | 2018-06-25 09:59 | P.PNIM ---
Subjective Interval history: Follow up dysphasia, ICH, SAH, SDH, generalized weakness. Nurse reported patient refuses tube feeding overnight. Patient seen and examined, laying in bed awake, less verbal today. Discussed the patient to eat more of his meals/ training to replace the tube feeding that he did not get overnight. Encouraged to drink more Ensure. Patient verbalized understanding. Patient denies any headache or dizziness, denies any pain, chest pain or shortness of breath. Patient denies any abdominal pain, nausea, vomiting, diarrhea, or constipation. Patient denies any fever or chills. Patient states that he is walking better , encouraged to increase activity. Physical Exam Vital signs: Vital Signs 06/24/18 12:00 06/24/18 13:09 06/24/18 16:00 Temperature 97.8 F 98 F Pulse Rate 85 83 Respiratory Rate 16 12 16 Blood Pressure 98/62 L 98/68 L Pulse Oximetry 100 100 06/24/18 17:22 06/24/18 20:00 06/25/18 00:00 Temperature 98.4 F 97.8 F Pulse Rate 85 85 Respiratory Rate 12 17 19 Blood Pressure 96/69 L 113/76 Pulse Oximetry 97 100 06/25/18 04:00 06/25/18 08:00 Temperature 98.2 F 97.5 F L Pulse Rate 78 78 Respiratory Rate 20 17 Blood Pressure 112/66 117/71 Pulse Oximetry 98 99 Intake & Output 06/24/18 06/25/18 06/25/18 18:59 06:59 18:59 Intake Total 240 / 240 Balance 240 / 240 Intake: Oral 240 / 240 Other: Date of Last Bowel Movement 06/22/18 06/25/18 06/25/18 Narrative: GENERAL: Thin appearing -[place] male in no apparent distress SKIN: Warm and dry. Bilateral feet with dry skin HEAD: right side cranioplasty surgical incision, healing well EYES: Pupils equal and round. No scleral icterus. No injection or drainage. ENT: No nasal bleeding or discharge. Mucous membranes pink and moist. NECK: Trachea midline. No JVD. CARDIOVASCULAR: Regular rate and rhythm. RESPIRATORY: No accessory muscle use. Clear to auscultation. Breath sounds equal bilaterally. GASTROINTESTINAL: Abdomen flat, soft, slight tenderness on palpation on left lower quadrant/PEG tube area, nondistended. Hepatic and splenic margins not palpable. Left lower quadrant Peg in place MUSCULOSKELETAL: Extremities without clubbing, cyanosis, or edema. No obvious deformities. NEUROLOGICAL: Awake and alert x 3. Generalized weakness, moving all 4 extremities with limited range of motion. Normal speech, improving, more conversant today. PSYCHIATRIC: Flat mood and affect, irritable today - Urinary Catheter Management Indwelling Temp Sensing Catheter Cath placed during this visit: yes, but has since been removed by the nurse Reason for continuing: Not indwelling catheter Insertion date: 03/12/18 Insertion time: 05:30 Removal date: 03/25/18 Removal time: 18:00 Indwelling Urethral Catheter Cath placed during this visit: yes, but has since been removed by the nurse Reason for continuing: Decision to DC catheter Insertion date: 03/22/18 Insertion time: 17: Removal date: 03/25/18 Removal time: 18:00 Condom Cath placed during this visit: yes, but has since been removed by the nurse Reason for continuing: Hourly intake/output Insertion date: 05/13/18 Insertion time: 14:30 Removal date: 03/25/18 Removal time: 18:00 Results - Labs CBC & Chem 7: 06/21/18 08:08 06/21/18 08:08 - Procedures PEG 7 -25 right decompressive craniectomy 03/22/18 with placement of ICP monitor by Dr. Chacko, la'ed 03/23/18 03/22/18 Right frontotemporal parietal decompressive craniectomy and Duroplasty 03/22/18 Left frontal bur hole with placement of an intracranial pressure monitor Assessment and Plan - Assessment (1) Intracranial hemorrhage following injury Code(s): S06.309A - Unspecified focal traumatic brain injury with loss of consciousness of unspecified duration, initial encounter Status: Acute (2) Traumatic brain injury Code(s): S06.9X9A - Unspecified intracranial injury with loss of consciousness of unspecified duration, initial encounter Status: Acute (3) Fall Code(s): W19.XXXA - Unspecified fall, initial encounter Status: Chronic (4) Cocaine abuse Code(s): F14.10 - Cocaine abuse, uncomplicated Status: Chronic (5) ETOH abuse Code(s): F10.10 - Alcohol abuse, uncomplicated Status: Chronic (6) Dysphagia Code(s): R13.10 - Dysphagia, unspecified Status: Acute - Plan This is a 62-year-old male admitted secondary to intracranial hemorrhage TBI, Right frontal IPH 53.3 cm. SAH bilat frontal lobes, right parietal, temporal. Right frontotemporal SDH Status post emergency craniectomy for decompression for worsening midline shift right to left 2.1 cm s/p Fall, ?syncope HX Daily alcohol use/Cocaine abuse -s/p Right frontotemporal parietal decompressive craniectomy and Duroplasty 03/[address] Chacko. -s/p right cranioplasty 05/13/18, incision healing well. -Continue with PT/OT - PT recommends rehab at discharge -Seizure precautions -Palliative care following -Neuropsychiatry, Dr. Narvaez following: Noted signs and symptoms of frontal lobe dysfunction and lack decision making capacity -Monitor for any seizure activity off of Keppra. - Continue on Topamax. No headache, no dizziness Neutropenia -likely due to Fortaz. Fortaz discontinued. -Cont to monitor, recent WBC 3.6 on 06/21 Hypernatremia, resolved -Encourage po fluid intake -monitor Na level, recent 142 on 06/21 Headache-improved -repeat CT head 04/04 showed improvement, -repeat CT head 04/26 shows stable exam with large right craniectomy defect and 5 mm midline shift, no hemorrhage -CTA head negative -Neurology following, appreciate assistance. Topamax 50mg BID for likely vascular component. Topamax increased 05/18 to 75mg BID. Consider adding Decadron if headache persist -Patient denies any c/o of headache -continue on Topamax Dysphagia Protein calorie malnutrition s/p PEG tube placement 03/30/18 -ST recommended regular solids, thin liquids. -Dietitian consult: Recommend Jevity 1.5 @ 85 mls/hr from 6pm -6am to provide 1530 kcals and 65 gms protein, continue supplements -Patient previously refusing PEG tube, per Dr. Narvaez and Dr. Newell - patient does not have decision making capacity. -Needs assistance with all meals, -Continue to encourage PO intake. -Remeron QHS started, continue ensure for supplements -feeding time changed to 6P-6A for trial for patient might tolerate more of the PO diet. Advance diet as tolerated. -left upper quadrant pain on palpation, abdominal x-ray negative, likely discomfort from the Peg Tube as patient has very minimal muscle mass, no pain today -Patient patient refused tube feeding on last night. Acute respiratory failure secondary to failure to protect airway-resolved extubated MRSA pneumonia, status post treatment with IV vancomycin and Rocephin Hx Tobacco abuse Extubated 03/25/2018 -CXR negative 06/10 -Continue as needed duo nebs -Supplemental oxygen as needed -On RA tolerating, SPO2 98% in room air, - no SOB, no coughing UTI/Pseudomonas -resolved -06/12 repeat UA positive for Pseudomonas and Enterococcus Faecalis - initially Treated with Ceftazidime, discontinued secondary to neutropenia -s/p antbx treatment with Cipro, no signs and symptoms, monitor Hepatitis C, history of -avoid hepatotoxic agents -patient will need to follow up with GI as outpatient DVT prophylaxis: Heparin sq. (Cleared By neurosurgery 06/10) Patient is more cooperative with medications and treatment recently Code Status: Full code Discussed Condition With: Patient and nurse Discharge Planning: D/C planning for SNF/Rehab facility when bed available (2) Traumatic brain injury Qualifiers: Encounter type: subsequent encounter
[2018-06-25] MEDS: Mirtazapine 15 MG Tablet PO SCH (20:20)
[2018-06-26] MEDS: Heparin - SQ 10,000 UNITS/ML Vial SQ SCH ×2 (09:32→20:39)
[2018-06-26] MEDS: Senna/Docusate Sodium 8.6/50 MG Tablet PO SCH ×3 (09:32→20:36)
[2018-06-26] MEDS: Topiramate 25 MG Tablet PO SCH ×2 (09:32→20:36)
--- NOTE | 2018-06-26 11:11 | P.PNIM ---
Subjective Interval history: Follow up dysphasia, ICH, SAH, SDH, generalized weakness. Patient seen and examined, sitting in his bed, eating breakfast, ate almost half of the trach content and still working on it. Patient stated he did not get his feeding tube last night until he wanted. Patient encouraged to eat better patient agreed, not for understanding. Patient stated he gets out of bed and using walker. Encouraged to increase activity. Patient denies any headache or dizziness, denies any pain, chest pain or shortness of breath. Patient denies abdominal pain, nausea, vomiting, diarrhea or constipation. Patient states that he is about to go to the bathroom at this time. Patient denies any fever or chills. Nurse denies any acute complaint for the patient. Physical Exam Vital signs: Vital Signs 06/25/18 12:00 06/25/18 16:00 06/25/18 20:00 Temperature 97.6 F 97.6 F 97.6 F Pulse Rate 87 84 84 Respiratory Rate 16 16 18 Blood Pressure 106/72 109/76 105/70 Pulse Oximetry 97 100 98 06/26/18 00:00 06/26/18 04:00 06/26/18 08:00 Temperature 97.8 F 97.6 F 98.0 F Pulse Rate 82 77 81 Respiratory Rate 18 18 18 Blood Pressure 108/72 108/81 112/73 Pulse Oximetry 97 100 98 Intake & Output 06/25/18 06/26/18 06/26/18 18:59 06:59 18:59 Intake Total 600 / 600 Balance 600 / 600 Weight 55 kg Intake: Oral 600 / 600 Other: # Urine Diapers 2 Date of Last Bowel Movement 06/25/18 06/26/18 # Bowel Movements 1 Narrative: GENERAL: Thin appearing -[place] male in no apparent distress SKIN: Warm and dry. Bilateral feet with dry skin HEAD: right side cranioplasty surgical incision, healing well EYES: Pupils equal and round. No scleral icterus. No injection or drainage. ENT: No nasal bleeding or discharge. Mucous membranes pink and moist. NECK: Trachea midline. No JVD. CARDIOVASCULAR: Regular rate and rhythm. RESPIRATORY: No accessory muscle use. Clear to auscultation. Breath sounds equal bilaterally. GASTROINTESTINAL: Abdomen flat, soft, nontender, nondistended. Hepatic and splenic margins not palpable. Left lower quadrant Peg in place MUSCULOSKELETAL: Extremities without clubbing, cyanosis, or edema. No obvious deformities. NEUROLOGICAL: Awake and alert x 3. Generalized weakness, moving all 4 extremities with limited range of motion. Normal speech, improving, more conversant today. PSYCHIATRIC: Flat mood and affect, irritable today - Urinary Catheter Management Indwelling Temp Sensing Catheter Cath placed during this visit: yes, but has since been removed by the nurse Reason for continuing: Not indwelling catheter Insertion date: 03/12/18 Insertion time: 05:30 Removal date: 03/25/18 Removal time: 18:00 Indwelling Urethral Catheter Cath placed during this visit: yes, but has since been removed by the nurse Reason for continuing: Decision to DC catheter Insertion date: 03/22/18 Insertion time: 17:30 Removal date: 03/25/18 Removal time: 18:00 Condom Cath placed during this visit: yes, but has since been removed by the nurse Reason for continuing: Hourly intake/output Insertion date: 05/13/18 Insertion time: 14:30 Removal date: 03/25/18 Removal time: 18:00 Results - Labs CBC & Chem 7: 06/21/18 08:08 06/21/18 08:08 - Procedures PEG 7 -25 right decompressive craniectomy 03/22/18 with placement of ICP monitor by Dr. Chacko, nj'ed 03/23/18 03/22/18 Right frontotemporal parietal decompressive craniectomy and Duroplasty 03/22/18 Left frontal bur hole with placement of an intracranial pressure monitor Assessment and Plan - Assessment (1) Intracranial hemorrhage following injury Code(s): S06.309A - Unspecified focal traumatic brain injury with loss of consciousness of unspecified duration, initial encounter Status: Acute (2) Traumatic brain injury Code(s): S06.9X9A - Unspecified intracranial injury with loss of consciousness of unspecified duration, initial encounter Status: Acute (3) Fall Code(s): W19.XXXA - Unspecified fall, initial encounter Status: Chronic (4) Cocaine abuse Code(s): F14.10 - Cocaine abuse, uncomplicated Status: Chronic (5) ETOH abuse Code(s): F10.10 - Alcohol abuse, uncomplicated Status: Chronic (6) Dysphagia Code(s): R13.10 - Dysphagia, unspecified Status: Acute - Plan This is a 62-year-old male admitted secondary to intracranial hemorrhage TBI, Right frontal IPH 53.3 cm. SAH bilat frontal lobes, right parietal, temporal. Right frontotemporal SDH Status post emergency craniectomy for decompression for worsening midline shift right to left 2.1 cm s/p Fall, ?syncope HX Daily alcohol use/Cocaine abuse -s/p Right frontotemporal parietal decompressive craniectomy and Duroplasty 03/[address] Chacko. -s/p right cranioplasty 05/13/18, incision healing well. -Continue with PT/OT - PT recommends rehab at discharge -Seizure precautions -Palliative care following -Neuropsychiatry, Dr. Narvaez following: Noted signs and symptoms of frontal lobe dysfunction and lack decision making capacity -Monitor for any seizure activity off of Keppra. - Continue on Topamax. No headache, no dizziness Dysphagia Protein calorie malnutrition s/p PEG tube placement 03/30/18 -ST recommended regular solids, thin liquids. -Dietitian consult: Recommend Jevity 1.5 @ 85 mls/hr from 6pm -6am to provide 1530 kcals and 65 gms protein, continue supplements -Patient previously refusing PEG tube, per Dr. Narvaez and Dr. Newell - patient does not have decision making capacity. -Needs assistance with all meals, -Continue to encourage PO intake. -Remeron QHS started, continue ensure for supplements -feeding time changed to 6P-6A for trial for patient might tolerate more of the PO diet. Advance diet as tolerated. -left upper quadrant pain on palpation, abdominal x-ray negative, likely discomfort from the Peg Tube as patient has very minimal muscle mass, no pain today -Patient patient refused tube feeding on last night X3 nights, patient doing better with diet, encouragements needed -Monitor CBC, CMP and albumin level Neutropenia -likely due to Fortaz. Fortaz discontinued. -Cont to monitor, recent WBC 3.6 on 06/21 Hypernatremia, resolved -Encourage po fluid intake -monitor Na level, recent 142 on 06/21 Headache-improved -repeat CT head 04/04 showed improvement, -repeat CT head 04/26 shows stable exam with large right craniectomy defect and 5 mm midline shift, no hemorrhage -CTA head negative -Neurology following, appreciate assistance. Topamax 50mg BID for likely vascular component. Topamax increased 05/18 to 75mg BID. Consider adding Decadron if headache persist -Patient denies any c/o of headache -continue on Topamax Acute respiratory failure secondary to failure to protect airway-resolved extubated MRSA pneumonia, status post treatment with IV vancomycin and Rocephin Hx Tobacco abuse Extubated 03/25/2018 -CXR negative 06/10 -Continue as needed duo nebs -Supplemental oxygen as needed -On RA tolerating, SPO2 98% in room air, - no SOB, some coughing, no sputum UTI/Pseudomonas -resolved -06/12 repeat UA positive for Pseudomonas and Enterococcus Faecalis - initially Treated with Ceftazidime, discontinued secondary to neutropenia -s/p antbx treatment with Cipro, no signs and symptoms, monitor Hepatitis C, history of -avoid hepatotoxic agents -patient will need to follow up with GI as outpatient DVT prophylaxis: Heparin sq. refused most of the time, increase ambulation, SCD while in bed (Cleared By neurosurgery 06/10) Patient is more cooperative with medications and treatment recently Code Status: Full code Discussed Condition With: Patient, nurse, palliative care Discharge Planning: D/C planning for SNF/Rehab facility when bed available (2) Traumatic brain injury Qualifiers: Encounter type: subsequent encounter
[2018-06-26] MEDS: Mirtazapine 15 MG Tablet PO SCH (20:36)
[2018-06-27] MEDS: Topiramate 25 MG Tablet PO SCH ×2 (09:38→21:05)
[2018-06-27] MEDS: Senna/Docusate Sodium 8.6/50 MG Tablet PO SCH ×2 (09:39→21:00)
[2018-06-27] MEDS: Heparin - SQ 10,000 UNITS/ML Vial SQ SCH (09:39)
[2018-06-27 09:46] LABS: Baso % (Auto) 0.7 % (0.0-2.0); Eos # (Auto) 0.2 th/mm3 (0.0-0.4); Eos % (Auto) 5.5 % (0.0-4.0); Hematocrit 38.9 % (39.0-51.0); Hemoglobin 13.1 gm/dL (13.0-17.0); Lymph # (Auto) 1.7 th/mm3 (1.0-4.8); Lymph % (Auto) 49.5 % (9.0-44.0); Mean Corpuscular HGB Conc 33.6 % (32.0-36.0); Mean Corpuscular Volume 89.4 fL (80.0-100.0); Mono # (Auto) 0.3 th/mm3 (0.0-0.9); Neut # (Auto) 1.3 th/mm3 (1.8-7.7); Neut % (Auto) 36.3 % (16.0-70.0); Platelet Count 249 th/mm3 (150-450); Red Blood Count 4.35 mil/mm3 (4.50-5.90); Red Cell Distribution Width 14.4 % (11.6-17.2); White Blood Count 3.5 th/mm3 (4.0-11.0)
[2018-06-27 10:04] LABS: Albumin 3.2 g/dL (3.4-5.0); Anion Gap 9 meq/L (5-15); Aspartate Aminotransferase 21 U/L (15-37); Blood Urea Nitrogen 24 mg/dL (7-18); Carbon Dioxide 24.2 meq/L (21.0-32.0); Chloride 109 meq/L (98-107); Glomerular Filtration Rate Greater Than 89 mL/min (>89); Glucose,Random 88 mg/dL (74-106); Potassium 3.9 meq/L (3.5-5.1); Sodium 142 meq/L (136-145)
[2018-06-27 10:10] LABS: Alanine Aminotransferase 16 U/L (12-78); Alkaline Phosphatase 66 U/L (45-117); Total Protein 7.9 g/dL (6.4-8.2)
--- NOTE | 2018-06-27 16:36 | P.PNIM ---
Subjective Interval history: Follow up dysphasia, ICH, SAH, SDH, generalized weakness. Patient seen and examined, laying in bed, eating lunch while laying flat patient encourage to scrub while eating patient stated he is fine this way he do not want sitting up with her to stomach. Patient denies any pain, chest pain, shortness of breath, headache or dizziness. Patient denies any abdominal pain, nausea, vomiting, diarrhea, or constipation. Patient denies any fever chills patient stated he is eating better. Nurse denies any acute concern at this time. Physical Exam Vital signs: Vital Signs 06/26/18 20:00 06/27/18 00:00 06/27/18 04:00 Temperature 97.8 F 97.6 F 97.9 F Pulse Rate 94 H 91 H 83 Respiratory Rate 18 18 Blood Pressure 106/70 108/72 100/76 Pulse Oximetry 98 98 98 06/27/18 08:00 06/27/18 12:00 Temperature 97.3 F L 97.9 F Pulse Rate 89 89 Respiratory Rate 13 14 Blood Pressure 104/77 105/68 Pulse Oximetry 100 99 Intake & Output 06/26/18 06/27/18 06/27/18 18:59 06:59 18:59 Intake Total 840 / 840 480 / 480 Balance 840 / 840 480 / 480 Weight 54.7 kg Intake: Oral 840 / 840 480 / 480 Other: # Voids 1 Date of Last Bowel Movement 06/25/18 06/25/18 06/27/18 # Bowel Movements 1 Narrative: GENERAL: Thin appearing -Citizen Of [place] male in no apparent distress SKIN: Warm and dry. Bilateral feet with dry skin HEAD: right side cranioplasty surgical incision, healing well EYES: Pupils equal and round. No scleral icterus. No injection or drainage. ENT: No nasal bleeding or discharge. Mucous membranes pink and moist. NECK: Trachea midline. No JVD. CARDIOVASCULAR: Regular rate and rhythm. RESPIRATORY: No accessory muscle use. Clear to auscultation. Breath sounds equal bilaterally. GASTROINTESTINAL: Abdomen flat, soft, nontender, nondistended. Hepatic and splenic margins not palpable. Left lower quadrant Peg in place MUSCULOSKELETAL: Extremities without clubbing, cyanosis, or edema. No obvious deformities. NEUROLOGICAL: Awake and alert x 3. Generalized weakness, moving all 4 extremities with limited range of motion. Normal speech, improving, more conversant today. PSYCHIATRIC: Flat mood and affect, irritable today - Urinary Catheter Management Indwelling Temp Sensing Catheter Cath placed during this visit: yes, but has since been removed by the nurse Reason for continuing: Not indwelling catheter Insertion date: 03/12/18 Insertion time: 05:30 Removal date: 03/25/18 Removal time: 18:00 Indwelling Urethral Catheter Cath placed during this visit: yes, but has since been removed by the nurse Reason for continuing: Decision to DC catheter Insertion date: 03/22/18 Insertion time: 17:30 Removal date: 03/25/18 Removal time: 18:00 Condom Cath placed during this visit: yes, but has since been removed by the nurse Reason for continuing: Hourly intake/output Insertion date: 05/13/18 Insertion time: 14:30 Removal date: 03/25/18 Removal time: 18:00 Results - Labs CBC & Chem 7: 06/27/18 07:15 06/27/18 07:15 Laboratory Results - last 24 hr 06/27/18 06/27/18 07:15 07:15 WBC 3.5 L RBC 4.35 L Hgb 13.1 Hct 38.9 L MCV 89.4 MCH 30.0 MCHC 33.6 RDW 14.4 Plt Count 249 MPV 8.0 Neut % (Auto) 36.3 Lymph % (Auto) 49.5 H [place] % (Auto) 8.0 Eos % (Auto) 5.5 H Baso % (Auto) 0.7 Neut # (Auto) 1.3 L Lymph # (Auto) 1.7 [place] # (Auto) 0.3 Eos # (Auto) 0.2 Baso # (Auto) 0.0 WBC Differential . Differential Comment Auto diff final Sodium 142 Potassium 3.9 Chloride 109 H Carbon Dioxide 24.2 Anion Gap 9 BUN 24 H Creatinine 0.74 Estimated GFR Greater than 89 Random Glucose 88 Calcium 9.0 Total Bilirubin 0.2 AST 21 ALT 16 Alkaline Phosphatase 66 Total Protein 7.9 Albumin 3.2 L - Procedures PEG 7 -25 right decompressive craniectomy 03/22/18 with placement of ICP monitor by Dr. Chacko, mn'ed 03/23/18 03/22/18 Right frontotemporal parietal decompressive craniectomy and Duroplasty 03/22/18 Left frontal bur hole with placement of an intracranial pressure monitor Assessment and Plan - Assessment (1) Intracranial hemorrhage following injury Code(s): S06.309A - Unspecified focal traumatic brain injury with loss of consciousness of unspecified duration, initial encounter Status: Acute (2) Traumatic brain injury Code(s): S06.9X9A - Unspecified intracranial injury with loss of consciousness of unspecified duration, initial encounter Status: Acute (3) Fall Code(s): W19.XXXA - Unspecified fall, initial encounter Status: Chronic (4) Cocaine abuse Code(s): F14.10 - Cocaine abuse, uncomplicated Status: Chronic (5) ETOH abuse Code(s): F10.10 - Alcohol abuse, uncomplicated Status: Chronic (6) Dysphagia Code(s): R13.10 - Dysphagia, unspecified Status: Acute - Plan This is a 62-year-old male admitted secondary to intracranial hemorrhage TBI, Right frontal IPH 53.3 cm. SAH bilat frontal lobes, right parietal, temporal. Right frontotemporal SDH Status post emergency craniectomy for decompression for worsening midline shift right to left 2.1 cm s/p Fall, ?syncope HX Daily alcohol use/Cocaine abuse -s/p Right frontotemporal parietal decompressive craniectomy and Duroplasty 03/[address] Chacko. -s/p right cranioplasty 05/13/18, incision healing well. -Continue with PT/OT - PT recommends rehab at discharge -Seizure precautions -Palliative care following -Neuropsychiatry, Dr. Narvaez following: Noted signs and symptoms of frontal lobe dysfunction and lack decision making capacity -Monitor for any seizure activity off of Keppra. - Continue on Topamax. No headache, no dizziness Dysphagia Protein calorie malnutrition s/p PEG tube placement 03/30/18 -ST recommended regular solids, thin liquids. -Dietitian consult: Recommend Jevity 1.5 @ 85 mls/hr from 6pm -6am to provide 1530 kcals and 65 gms protein, continue supplements -Patient previously refusing PEG tube, per Dr. Narvaez and Dr. Newell - patient does not have decision making capacity. -Needs assistance with all meals, -Continue to encourage PO intake. -Remeron QHS started, continue ensure for supplements -feeding time changed to 6P-6A for trial for patient might tolerate more of the PO diet. Advance diet as tolerated. -left upper quadrant pain on palpation, abdominal x-ray negative, likely discomfort from the Peg Tube as patient has very minimal muscle mass, no pain today -Patient patient refused tube feeding on last night X3 nights, patient doing better with diet, encouragements needed -Albumin level 3.2, previously 2.9 -Monitor CBC, CMP and albumin level Neutropenia -likely due to Fortaz. Fortaz discontinued. -Cont to monitor, recent WBC 3.6 on 06/21 -No fever or chills -Patient on isolation Hypernatremia, resolved -Encourage po fluid intake -monitor Na level, recent 142 on 06/21 Headache-improved -repeat CT head 04/04 showed improvement, -repeat CT head 04/26 shows stable exam with large right craniectomy defect and 5 mm midline shift, no hemorrhage -CTA head negative -Neurology following, appreciate assistance. Topamax 50mg BID for likely vascular component. Topamax increased 05/18 to 75mg BID. Consider adding Decadron if headache persist -Patient denies any c/o of headache -continue on Topamax Acute respiratory failure secondary to failure to protect airway-resolved extubated MRSA pneumonia, status post treatment with IV vancomycin and Rocephin Hx Tobacco abuse Extubated 03/25/2018 -CXR negative 06/10 -Continue as needed duo nebs -Supplemental oxygen as needed -On RA tolerating, SPO2 98% in room air, - no SOB, no respiratory distress, no coughing, no sputum UTI/Pseudomonas -resolved -06/12 repeat UA positive for Pseudomonas and Enterococcus Faecalis - initially Treated with Ceftazidime, discontinued secondary to neutropenia -s/p antbx treatment with Cipro, no signs and symptoms, monitor Hepatitis C, history of -avoid hepatotoxic agents -patient will need to follow up with GI as outpatient DVT prophylaxis: Heparin sq. refused most of the time, increase ambulation, SCD while in bed (Cleared By neurosurgery 06/10) Patient is more cooperative with medications and treatment recently Code Status: Full code Discussed Condition With: Patient and nurse Discharge Planning: D/C planning for SNF/Rehab facility when bed available (2) Traumatic brain injury Qualifiers: Encounter type: subsequent encounter
[2018-06-27] MEDS: Mirtazapine 15 MG Tablet PO SCH (21:00)
[2018-06-28] MEDS: Heparin - SQ 10,000 UNITS/ML Vial SQ SCH ×3 (08:52→21:33)
[2018-06-28] MEDS: Topiramate 25 MG Tablet PO SCH ×2 (08:58→21:32)
[2018-06-28] MEDS: Senna/Docusate Sodium 8.6/50 MG Tablet PO SCH ×2 (08:58→21:33)
--- NOTE | 2018-06-28 10:26 | P.PN ---
Subjective Interval history: Follow up dysphagia, ICH, SAH, SDH, generalized weakness. The patient is seen with RN at bedside. Patient denies any new medical complaints. He has been refusing his heparin injections despite education on importance of this medication. States his last bowel movement was yesterday. He is tolerating oral intake. Vital signs reviewed and stable. Physical Exam Vital signs: Vital Signs 06/27/18 12:00 06/27/18 16:00 06/28/18 00:00 Temperature 97.9 F 97.8 F 97.5 F L Pulse Rate 89 87 90 Respiratory Rate 14 14 18 Blood Pressure 105/68 96/64 L 104/66 Pulse Oximetry 99 99 100 06/28/18 04:00 06/28/18 08:00 Temperature 97.9 F 97.6 F Pulse Rate 79 84 Respiratory Rate 18 16 Blood Pressure 107/71 110/82 Pulse Oximetry 99 99 Intake & Output 06/27/18 06/28/18 06/28/18 18:59 06:59 18:59 Intake Total 760 / 760 Balance 760 / 760 Weight 55.2 kg Intake: Oral 760 / 760 Other: # Voids 2 2 Date of Last Bowel Movement 06/27/18 06/28/18 06/27/18 # Bowel Movements 1 1 Narrative: GENERAL: Thin appearing -Greek male in NAD. SKIN: Warm and dry. Bilateral feet with dry skin HEENT: Right cranioplasty surgical incision, healing well. Pupils equal and round. No scleral icterus. No injection or drainage. MM pink and moist. NECK: Trachea midline. CARDIOVASCULAR: Regular rate and rhythm. No murmur noted. RESPIRATORY: No accessory muscle use. Clear to auscultation. Breath sounds equal bilaterally. GASTROINTESTINAL: Abdomen soft, nontender, nondistended. Left lower quadrant Peg in place MUSCULOSKELETAL: Extremities without clubbing, cyanosis, or edema. No obvious deformities. NEUROLOGICAL: Awake and alert. Generalized weakness, moving all 4 extremities. Normal speech. - Urinary Catheter Management Indwelling Temp Sensing Catheter Cath placed during this visit: yes, but has since been removed by the nurse Reason for continuing: Not indwelling catheter Insertion date: 03/12/18 Insertion time: 05:30 Removal date: 03/25/18 Removal time: 18:00 Indwelling Urethral Catheter Cath placed during this visit: yes, but has since been removed by the nurse Reason for continuing: Decision to DC catheter Insertion date: 03/22/18 Insertion time: 17:30 Removal date: 03/25/18 Removal time: 18:00 Condom Cath placed during this visit: yes, but has since been removed by the nurse Reason for continuing: Hourly intake/output Insertion date: 05/13/18 Insertion time: 14:30 Removal date: 03/25/18 Removal time: 18:00 Results - Labs CBC & Chem 7: 06/27/18 07:15 06/27/18 07:15 - Procedures PEG 7 -25 right decompressive craniectomy 03/22/18 with placement of ICP monitor by Dr. Chacko, wa'ed 03/23/18 03/22/18 Right frontotemporal parietal decompressive craniectomy and Duroplasty 03/22/18 Left frontal bur hole with placement of an intracranial pressure monitor Assessment and Plan - Assessment (1) Intracranial hemorrhage following injury Code(s): S06.309A - Unspecified focal traumatic brain injury with loss of consciousness of unspecified duration, initial encounter Status: Acute (2) Traumatic brain injury Code(s): S06.9X9A - Unspecified intracranial injury with loss of consciousness of unspecified duration, initial encounter Status: Acute (3) Fall Code(s): W19.XXXA - Unspecified fall, initial encounter Status: Chronic (4) Cocaine abuse Code(s): F14.10 - Cocaine abuse, uncomplicated Status: Chronic (5) ETOH abuse Code(s): F10.10 - Alcohol abuse, uncomplicated Status: Chronic (6) Dysphagia Code(s): R13.10 - Dysphagia, unspecified Status: Acute - Plan 62-year-old male admitted secondary to intracranial hemorrhage TBI, Right frontal IPH 53.3 cm. SAH bilat frontal lobes, right parietal, temporal. Right frontotemporal SDH Status post emergency craniectomy for decompression for worsening midline shift right to left 2.1 cm s/p Fall, ?syncope HX Daily alcohol use/Cocaine abuse -s/p Right frontotemporal parietal decompressive craniectomy and Duroplasty 03/[address] Chacko. -s/p right cranioplasty 05/13/18, incision healing well. -Continue with PT/OT - PT recommends rehab at discharge -Seizure precautions -Palliative care following -Neuropsychiatry, Dr. Narvaez following: Noted signs and symptoms of frontal lobe dysfunction and lack decision making capacity -Monitor for any seizure activity off of Keppra. -Continue on Topamax. No headache, no dizziness Dysphagia Protein calorie malnutrition s/p PEG tube placement 03/30/18 -ST recommended regular solids, thin liquids. -Dietitian consult: Recommend Jevity 1.5 @ 85 mls/hr from 6pm -6am to provide 1530 kcals and 65 gms protein, continue supplements -Patient previously refusing PEG tube, per Dr. Narvaez and Dr. Newell - patient does not have decision making capacity. -Needs assistance with all meals, -Continue to encourage PO intake. -Remeron QHS started, continue ensure for supplements -feeding time changed to 6P-6A for trial for patient might tolerate more of the PO diet. Advance diet as tolerated. -left upper quadrant pain on palpation, abdominal x-ray negative, likely discomfort from the Peg Tube as patient has very minimal muscle mass, no pain today -Patient patient refused tube feeding on last night X3 nights, patient doing better with diet, encouragements needed -Albumin level 3.2, previously 2.9 -Monitor CBC, CMP and albumin level Neutropenia -likely due to Fortaz. Fortaz discontinued. -Cont to monitor, recent WBC 3.6 on 06/21 -No fever or chills -Patient on isolation Hypernatremia, resolved -Encourage po fluid intake -monitor Na level, recent 142 on 06/21 Headache-improved -repeat CT head 04/04 showed improvement, -repeat CT head 04/26 shows stable exam with large right craniectomy defect and 5 mm midline shift, no hemorrhage -CTA head negative -Neurology following, appreciate assistance. -Topamax 50mg BID for likely vascular component. Topamax increased 05/18 to 75mg BID. -Patient denies any c/o of headache, improved Acute respiratory failure secondary to failure to protect airway-resolved extubated 03/25. MRSA pneumonia, status post treatment with IV vancomycin and Rocephin Hx Tobacco abuse -CXR negative 06/10 -Continue as needed duo nebs, Supplemental oxygen as needed -On RA tolerating, SPO2 98% in room air -no SOB, no respiratory distress, no coughing, no sputum UTI/Pseudomonas -resolved -06/12 repeat UA positive for Pseudomonas and Enterococcus Faecalis -initially Treated with Ceftazidime, discontinued secondary to neutropenia -s/p abx treatment with Cipro, no signs and symptoms, monitor Hepatitis C, history of -avoid hepatotoxic agents -patient will need to follow up with GI as outpatient DVT prophylaxis: Heparin sq. (Cleared By neurosurgery 06/10) Pt refused most of the time, increase ambulation, SCD while in bed. Discharge Planning: D/C planning for SNF/Rehab facility when bed available (2) Traumatic brain injury Qualifiers: Encounter type: subsequent encounter
[2018-06-28] MEDS: Mirtazapine 15 MG Tablet PO SCH (21:32)
[2018-06-29] MEDS: Topiramate 25 MG Tablet PO SCH ×2 (09:08→20:26)
[2018-06-29] MEDS: Senna/Docusate Sodium 8.6/50 MG Tablet PO SCH ×2 (10:37→20:25)
[2018-06-29] MEDS: Heparin - SQ 10,000 UNITS/ML Vial SQ SCH ×2 (10:37→20:26)
--- NOTE | 2018-06-29 12:18 | P.PN ---
Subjective Interval history: Follow up dysphagia, ICH, SAH, SDH, generalized weakness. Patient has no specific medical complaints today. Denies any chest pain, shortness breath, abdominal pain, or urinary complaints. He is tolerating oral intake. Vital signs stable. Physical Exam Vital signs: Vital Signs 06/28/18 16:00 06/28/18 20:00 06/29/18 00:00 Temperature 97.7 F 98.3 F 98 F Pulse Rate 80 87 82 Respiratory Rate 16 16 16 Blood Pressure 104/70 113/73 113/76 Pulse Oximetry 100 98 98 06/29/18 04:00 Temperature 97.7 F Pulse Rate 78 Respiratory Rate 16 Blood Pressure 123/81 Pulse Oximetry 99 Intake & Output 06/28/18 06/29/18 06/29/18 18:59 06:59 18:59 Intake Total 560 / 560 Balance 560 / 560 Weight 54.5 kg Intake: Oral 560 / 560 Other: # Voids 1 # Incontinent Voids 1 1 Date of Last Bowel Movement 06/27/18 06/29/18 06/27/18 # Bowel Movements 1 1 Narrative: GENERAL: Thin appearing -Angolan male in NAD. SKIN: Warm and dry. Bilateral feet with dry skin HEENT: Right cranioplasty surgical incision, healing well. Pupils equal and round. MM pink and moist. NECK: Trachea midline. CARDIOVASCULAR: Regular rate and rhythm. No murmur noted. RESPIRATORY: No accessory muscle use. Clear to auscultation. Breath sounds equal bilaterally. GASTROINTESTINAL: Abdomen soft, nontender, nondistended. Left lower quadrant Peg in place MUSCULOSKELETAL: Extremities without clubbing, cyanosis, or edema. No obvious deformities. NEUROLOGICAL: Awake and alert. Generalized weakness, moving all 4 extremities. Normal speech. - Urinary Catheter Management Indwelling Temp Sensing Catheter Cath placed during this visit: yes, but has since been removed by the nurse Reason for continuing: Not indwelling catheter Insertion date: 03/12/18 Insertion time: 05:30 Removal date: 03/25/18 Removal time: 18:00 Indwelling Urethral Catheter Cath placed during this visit: yes, but has since been removed by the nurse Reason for continuing: Decision to DC catheter Insertion date: 03/22/18 Insertion time: 17:30 Removal date: 03/25/18 Removal time: 18:00 Condom Cath placed during this visit: yes, but has since been removed by the nurse Reason for continuing: Hourly intake/output Insertion date: 05/13/18 Insertion time: 14:30 Removal date: 03/25/18 Removal time: 18:00 Results - Labs CBC & Chem 7: 06/27/18 07:15 06/27/18 07:15 - Procedures PEG 7 -25 right decompressive craniectomy 03/22/18 with placement of ICP monitor by Dr. Chacko, oh'ed 03/23/18 03/22/18 Right frontotemporal parietal decompressive craniectomy and Duroplasty 03/22/18 Left frontal bur hole with placement of an intracranial pressure monitor Assessment and Plan - Assessment (1) Intracranial hemorrhage following injury Code(s): S06.309A - Unspecified focal traumatic brain injury with loss of consciousness of unspecified duration, initial encounter Status: Acute (2) Traumatic brain injury Code(s): S06.9X9A - Unspecified intracranial injury with loss of consciousness of unspecified duration, initial encounter Status: Acute (3) Fall Code(s): W19.XXXA - Unspecified fall, initial encounter Status: Chronic (4) Cocaine abuse Code(s): F14.10 - Cocaine abuse, uncomplicated Status: Chronic (5) ETOH abuse Code(s): F10.10 - Alcohol abuse, uncomplicated Status: Chronic (6) Dysphagia Code(s): R13.10 - Dysphagia, unspecified Status: Acute - Plan 62-year-old male admitted secondary to intracranial hemorrhage TBI, Right frontal IPH 53.3 cm. SAH bilat frontal lobes, right parietal, temporal. Right frontotemporal SDH Status post emergency craniectomy for decompression for worsening midline shift right to left 2.1 cm Hx Daily alcohol use/Cocaine abuse, s/p Fall, ?syncope -s/p Right frontotemporal parietal decompressive craniectomy and Duroplasty 03/[address] Chacko. -s/p right cranioplasty 05/13/18, incision healing well. -Continue with PT/OT - PT recommends rehab at discharge -Seizure precautions -Palliative care following -Neuropsychiatry, Dr. Narvaez following: Noted signs and symptoms of frontal lobe dysfunction and lack decision making capacity -Monitor for any seizure activity off of Keppra. -Continue on Topamax. No headache, no dizziness Dysphagia Protein calorie malnutrition s/p PEG tube placement 03/30/18 -ST recommended regular solids, thin liquids. -Dietitian consult: Recommend Jevity 1.5 @ 85 mls/hr from 6pm -6am to provide 1530 kcals and 65 gms protein, continue supplements -Patient previously refusing PEG tube, per Dr. Narvaez and Dr. Newell - patient does not have decision making capacity. -Needs assistance with all meals -Remeron QHS started, continue ensure for supplements -feeding time changed to 6P-6A for trial for patient might tolerate more of the PO diet. Advance diet as tolerated. -Albumin level 3.2, previously 2.9 -Monitor CBC, CMP and albumin level Neutropenia -likely due to Fortaz. Fortaz discontinued. -Cont to monitor, recent WBC 3.6 on 06/21 -No fever or chills -Patient on isolation Hypernatremia, resolved -Encourage po fluid intake -monitor Na level, recent 142 on 06/27 Headache-improved -repeat CT head 04/04 showed improvement -repeat CT head 04/26 shows stable exam with large right craniectomy defect and 5 mm midline shift, no hemorrhage -CTA head negative -Neurology following, appreciate assistance. -Topamax 75mg BID -Patient denies any c/o of headache, improved Acute respiratory failure secondary to failure to protect airway-resolved extubated 03/25. MRSA pneumonia, status post treatment with IV vancomycin and Rocephin -CXR negative 06/10 -Continue as needed duo nebs, Supplemental oxygen as needed -On RA tolerating, SPO2 98% in room air -no SOB, no respiratory distress, no coughing, no sputum UTI/Pseudomonas -resolved -06/12 repeat UA positive for Pseudomonas and Enterococcus Faecalis -initially Treated with Ceftazidime, discontinued secondary to neutropenia -s/p abx treatment with Cipro, no signs and symptoms, monitor Hepatitis C, history of -avoid hepatotoxic agents -patient will need to follow up with GI as outpatient DVT prophylaxis: Heparin sq. (Cleared By neurosurgery 06/10) Pt refused most of the time, increase ambulation, SCD while in bed. Discharge Planning: D/C planning for SNF/Rehab facility when bed available (2) Traumatic brain injury Qualifiers: Encounter type: subsequent encounter
[2018-06-29] MEDS: Mirtazapine 15 MG Tablet PO SCH (20:25)
--- NOTE | 2018-06-30 09:49 | P.PN ---
Subjective Interval history: Follow up dysphagia, ICH, SAH, SDH, generalized weakness. The patient reports just continued generalized weakness. Denies any specific medical complaints including no chest pain, shortness of breath, abdominal pain, nausea/vomiting, or diarrhea. He is hungry and wants to eat. Vital signs reviewed and stable. Physical Exam Vital signs: Vital Signs 06/29/18 12:00 06/29/18 14:05 06/29/18 16:00 Temperature 98.1 F 98.1 F 98.5 F Pulse Rate 76 76 83 Respiratory Rate 22 22 16 Blood Pressure 104/68 104/68 97/67 L Pulse Oximetry 99 99 98 06/29/18 20:00 06/30/18 00:00 06/30/18 03:22 Temperature 98 F 97.4 F L 97.5 F L Pulse Rate 88 75 78 Respiratory Rate 18 16 16 Blood Pressure 97/56 L 103/71 102/69 Pulse Oximetry 96 100 98 06/30/18 08:00 Temperature 97.9 F Pulse Rate 75 Respiratory Rate 20 Blood Pressure 101/66 Pulse Oximetry 98 Intake & Output 06/29/18 06/30/18 06/30/18 18:59 06:59 18:59 Intake Total 560 / 560 Balance 560 / 560 Weight 56.4 kg Intake: Oral 560 / 560 Other: # Incontinent Voids 2 Date of Last Bowel Movement 06/27/18 06/28/18 # Incontinent Bowel Movements 1 Narrative: GENERAL: Thin appearing AA male in NAD. SKIN: Warm and dry. HEENT: Right cranioplasty surgical incision, healing well. Pupils equal and round. MM pink and moist. CARDIOVASCULAR: Regular rate and rhythm. No murmur noted. RESPIRATORY: No accessory muscle use. Clear to auscultation. Breath sounds equal bilaterally. GASTROINTESTINAL: Abdomen soft, nontender, nondistended. LLQ Peg in place MUSCULOSKELETAL: Extremities without clubbing, cyanosis, or edema. No obvious deformities. NEUROLOGICAL: Awake and alert. Generalized weakness, moving all 4 extremities. Normal speech. - Urinary Catheter Management Indwelling Temp Sensing Catheter Cath placed during this visit: yes, but has since been removed by the nurse Reason for continuing: Not indwelling catheter Insertion date: 03/12/18 Insertion time: 05:30 Removal date: 03/25/18 Removal time: 18:00 Indwelling Urethral Catheter Cath placed during this visit: yes, but has since been removed by the nurse Reason for continuing: Decision to DC catheter Insertion date: 03/22/18 Insertion time: 17:30 Removal date: 03/25/18 Removal time: 18:00 Condom Cath placed during this visit: yes, but has since been removed by the nurse Reason for continuing: Hourly intake/output Insertion date: 05/13/18 Insertion time: 14:30 Removal date: 03/25/18 Removal time: 18:00 Results - Labs CBC & Chem 7: 06/27/18 07:15 06/27/18 07:15 - Procedures PEG 7 -25 right decompressive craniectomy 03/22/18 with placement of ICP monitor by Dr. Chacko, ar'ed 03/23/18 03/22/18 Right frontotemporal parietal decompressive craniectomy and Duroplasty 03/22/18 Left frontal bur hole with placement of an intracranial pressure monitor Assessment and Plan - Assessment (1) Intracranial hemorrhage following injury Code(s): S06.309A - Unspecified focal traumatic brain injury with loss of consciousness of unspecified duration, initial encounter Status: Acute (2) Traumatic brain injury Code(s): S06.9X9A - Unspecified intracranial injury with loss of consciousness of unspecified duration, initial encounter Status: Acute (3) Fall Code(s): W19.XXXA - Unspecified fall, initial encounter Status: Chronic (4) Cocaine abuse Code(s): F14.10 - Cocaine abuse, uncomplicated Status: Chronic (5) ETOH abuse Code(s): F10.10 - Alcohol abuse, uncomplicated Status: Chronic (6) Dysphagia Code(s): R13.10 - Dysphagia, unspecified Status: Acute - Plan 62-year-old male admitted secondary to intracranial hemorrhage TBI, Right frontal IPH 53.3 cm. SAH bilat frontal lobes, right parietal, temporal. Right frontotemporal SDH Status post emergency craniectomy for decompression for worsening midline shift right to left 2.1 cm Hx Daily alcohol use/Cocaine abuse, s/p Fall, ?syncope -s/p Right frontotemporal parietal decompressive craniectomy and Duroplasty 03/[address] Chacko. -s/p right cranioplasty 05/13/18, incision healing well. -Continue with PT/OT - PT recommends rehab at discharge -Seizure precautions -Palliative care following -Neuropsychiatry, Dr. Narvaez following: Noted signs and symptoms of frontal lobe dysfunction and lack decision making capacity -Monitor for any seizure activity off of Keppra. -Continue on Topamax. No headache, no dizziness Dysphagia Protein calorie malnutrition s/p PEG tube placement 03/30/18 -ST recommended regular solids, thin liquids. -Patient previously refusing PEG tube, per Dr. Narvaez and Dr. Newell - patient does not have decision making capacity. -Dietitian consult, initially on Jevity 1.5, however now held as patient is tolerating oral intake -Needs assistance with all meals -Remeron QHS started, continue ensure enlive/pudding for supplements -Albumin level 3.2, previously 2.9 -Monitor CBC, CMP and albumin level Neutropenia -likely due to Fortaz. Fortaz discontinued. -Cont to monitor, recent WBC 3.6 on 06/21 -No fever or chills -Patient on isolation Hypernatremia, resolved -Encourage po fluid intake -monitor Na level, recent 142 on 06/27 Headache-improved -repeat CT head 04/04 showed improvement -repeat CT head 04/26 shows stable exam with large right craniectomy defect and 5 mm midline shift, no hemorrhage -CTA head negative -Neurology following, appreciate assistance. -Topamax 75mg BID -Patient denies any c/o of headache, improved Acute respiratory failure secondary to failure to protect airway-resolved extubated 03/25. MRSA pneumonia, status post treatment with IV vancomycin and Rocephin -CXR negative 06/10 -Continue as needed duo nebs, Supplemental oxygen as needed -On RA tolerating, SPO2 98% in room air -no SOB, no respiratory distress, no coughing, no sputum UTI/Pseudomonas -resolved -06/12 repeat UA positive for Pseudomonas and Enterococcus Faecalis -initially Treated with Ceftazidime, discontinued secondary to neutropenia -s/p abx treatment with Cipro, no signs and symptoms, monitor Hepatitis C, history of -avoid hepatotoxic agents -patient will need to follow up with GI as outpatient DVT prophylaxis: Heparin sq. (Cleared By neurosurgery 06/10) Pt refused most of the time, increase ambulation, SCD while in bed. Discharge Planning: D/C planning for SNF/Rehab facility when bed available (2) Traumatic brain injury Qualifiers: Encounter type: subsequent encounter
[2018-06-30] MEDS: Heparin - SQ 10,000 UNITS/ML Vial SQ SCH ×2 (10:12→22:44)
[2018-06-30] MEDS: Topiramate 25 MG Tablet PO SCH ×2 (10:13→22:40)
[2018-06-30] MEDS: Senna/Docusate Sodium 8.6/50 MG Tablet PO SCH ×2 (10:13→22:45)
--- NOTE | 2018-06-30 14:52 | P.DIET ---
Nutritional Evaluation Type of nutrition evaluation: follow-up Nutrition consult regarding: Tube Feeding Nutrition [place]: [facility] [place] [facility] [place] calorie [place]. Pt requesting PEG removal) Screening comments: [facility] [place]22): Trial to turn off TF at 6am to improve intake Subjective Subjective Comments: Improved po intake to 75-100%. Objective - Diagnosis ICH, SAH, Syncope - Objective % IBW: 87 (IBW = 166#) Body Weight Used for Calculations: Actual (65.4 kg) Energy Needs - Lower Range (kCal/kg): 28 Energy Needs - Upper Range (kCal/kg): 33 Lower Limit kCal/kg (kCals): 1,831 Upper Limit kCal/kg (kCals): 2,158 Lower Limit Protein Factor (Grams per Kg): 1.2 Upper Limit Protein Factor (Grams per Kg): 1.5 Lower Protein Needs (Protein): 79 Upper Protein Needs (Protein): 98 Fluid Factor (ml/kg): 28 Estimated Fluid Needs (ml): 1,831 Dietitian Reviewed in Medical Record: Current diet, Curent medications, Intake & Output, Labs, Medical history, Tube feeding, Wound/DTI Diet Order: Mechanical Soft Speech Therapy Recommendations: Yes Objective Comments: PMH: COPD, Asthma, tobacco abuse, daily ETOH use 03/22 R front temporal parietal decompressive craniectomy Integumentary: coccyx pressure injury PEG placement 03/30/1805/13 R frontal temporal parietal cranioplasty Feeding - Current PO Supplement Current Supplement: Ensure Enlive Current Frequency of Supplement: Three times a day Current kCals Provided by Supplement: 350 Current Protein Provided by Supplement: 20 Supplement Comments: plus Ensure Pudding(= 170 kcal and 4g protein per serving) Assessment Assessment: PO intake improved to 75-100% this week. Current diet is Cardiac with Ensure Enlive and Ensure Pudding added. CBW is 56.4 kg which indicates weight loss since admission and his BMI is 17.8. TFing has been put on hold. Labs, wts and clinical course reviewed. I had hoped pt could continue night time TFs until he had brought his weight back up but TF has already been stopped. RD will continue to follow. Recommendations: 1.Continue Ensure Enlive TID 2.Continue Ensure Pudding TID Dietitian to Monitor: Lab values, Supplement acceptance, Intake & Output, Diet tolerance, Weight change, PO Intake, Wound/skin status, Medical course
[2018-06-30] MEDS: Mirtazapine 15 MG Tablet PO SCH (22:41)
[2018-07-01] MEDS: Heparin - SQ 10,000 UNITS/ML Vial SQ SCH ×2 (09:02→22:53)
[2018-07-01] MEDS: Senna/Docusate Sodium 8.6/50 MG Tablet PO SCH ×2 (09:03→22:53)
[2018-07-01] MEDS: Topiramate 25 MG Tablet PO SCH ×2 (09:26→22:52)
--- NOTE | 2018-07-01 09:51 | P.PN ---
Subjective Interval history: Follow-up [facility] July 01, 2018-patient seen and examined, stable, no acute event overnight. Afebrile. Physical Exam Vital signs: Vital Signs 06/30/18 12:00 06/30/18 16:00 06/30/18 20:00 Temperature 97.8 F 97.6 F 97.3 F L Pulse Rate 80 72 70 Respiratory Rate 20 22 18 Blood Pressure 104/72 103/67 120/70 Pulse Oximetry 99 97 98 07/01/18 00:00 07/01/18 04:00 07/01/18 07:39 Temperature 97.6 F 97.6 F 97.4 F L Pulse Rate 68 74 89 Respiratory Rate 18 18 20 Blood Pressure 124/72 123/72 104/74 Pulse Oximetry 98 98 99 Intake & Output 06/30/18 07/01/18 07/01/18 18:59 06:59 18:59 Weight 56.1 kg Other: # Voids 2 Date of Last Bowel Movement 06/30/18 07/01/18 Narrative: GENERAL: NAD. SKIN: Warm and dry. HEENT: Right cranioplasty surgical incision, healing well. Pupils equal and round. MM pink and moist. CARDIOVASCULAR: Regular rate and rhythm. No murmur noted. RESPIRATORY: No accessory muscle use. Clear to auscultation. Breath sounds equal bilaterally. GASTROINTESTINAL: Abdomen soft, nontender, nondistended. Peg Tube in place MUSCULOSKELETAL: Extremities without clubbing, cyanosis, or edema. No obvious deformities. NEUROLOGICAL: Awake and alert. Generalized weakness, moving all 4 extremities. Normal speech. - Urinary Catheter Management Indwelling Temp Sensing Catheter Cath placed during this visit: yes, but has since been removed by the nurse Reason for continuing: Not indwelling catheter Insertion date: 03/12/18 Insertion time: 05:30 Removal date: 03/25/18 Removal time: 18:00 Indwelling Urethral Catheter Cath placed during this visit: yes, but has since been removed by the nurse Reason for continuing: Decision to DC catheter Insertion date: 03/22/18 Insertion time: 17:30 Removal date: 03/25/18 Removal time: 18:00 Condom Cath placed during this visit: yes, but has since been removed by the nurse Reason for continuing: Hourly intake/output Insertion date: 05/13/18 Insertion time: 14:30 Removal date: 03/25/18 Removal time: 18:00 Results - Labs CBC & Chem 7: 06/27/18 07:15 06/27/18 07:15 - Procedures PEG right decompressive craniectomy 03/22/18 with placement of ICP monitor by Dr. Chacko, nd'ed 03/23/18 03/22/18 Right frontotemporal parietal decompressive craniectomy and Duroplasty 03/22/18 Left frontal bur hole with placement of an intracranial pressure monitor Assessment and Plan - Assessment (1) Intracranial hemorrhage following injury Code(s): S06.309A - Unspecified focal traumatic brain injury with loss of consciousness of unspecified duration, initial encounter Status: Acute (2) Traumatic brain injury Code(s): S06.9X9A - Unspecified intracranial injury with loss of consciousness of unspecified duration, initial encounter Status: Acute (3) Fall Code(s): W19.XXXA - Unspecified fall, initial encounter Status: Chronic (4) Cocaine abuse Code(s): F14.10 - Cocaine abuse, uncomplicated Status: Chronic (5) ETOH abuse Code(s): F10.10 - Alcohol abuse, uncomplicated Status: Chronic (6) Dysphagia Code(s): R13.10 - Dysphagia, unspecified Status: Acute - Plan 63-year-old man with TBI, Right frontal IPH 53.3 cm. SAH bilat frontal lobes, right parietal, temporal. Right frontotemporal SDH Status post emergency craniectomy for decompression for worsening midline shift right to left 2.1 cm Hx Daily alcohol use/Cocaine abuse, s/p Fall, ?syncope -s/p Right frontotemporal parietal decompressive craniectomy and Duroplasty 03/[address] Chacko. -s/p right cranioplasty 05/13/18, incision healing well. -Continue with PT/OT - -Seizure precautions -Palliative care following -Neuropsychiatry, Dr. Narvaez following: Noted signs and symptoms of frontal lobe dysfunction and lack decision making capacity -Monitor for any seizure activity off of Keppra. -Continue on Topamax. Dysphagia Protein calorie malnutrition s/p PEG tube placement 03/30/18 -Remeron QHS started, continue ensure enlive/pudding for supplements Neutropenia -likely due to Fortaz. Fortaz discontinued. Hypernatremia, resolved Headache-improved -Neurology following, appreciate assistance. -Topamax 75mg BID Acute respiratory failure secondary to failure to protect airway-resolved extubated 03/25. MRSA pneumonia, status post treatment with IV vancomycin and Rocephin -CXR negative 06/10 -Continue as needed duo nebs, Supplemental oxygen as needed UTI/Pseudomonas -resolved -06/12 repeat UA positive for Pseudomonas and Enterococcus Faecalis -initially Treated with Ceftazidime, discontinued secondary to neutropenia -s/p abx treatment with Cipro Hepatitis C, history of -avoid hepatotoxic agents -patient will need to follow up with GI as outpatient (2) Traumatic brain injury Qualifiers: Encounter type: subsequent encounter
[2018-07-01] MEDS: Mirtazapine 15 MG Tablet PO SCH (22:52)
[2018-07-02] MEDS: Topiramate 25 MG Tablet PO SCH ×2 (10:09→22:33)
[2018-07-02] MEDS: Heparin - SQ 10,000 UNITS/ML Vial SQ SCH ×3 (10:09→22:33)
[2018-07-02] MEDS: Senna/Docusate Sodium 8.6/50 MG Tablet PO SCH ×2 (10:09→22:33)
--- NOTE | 2018-07-02 11:10 | P.PN ---
Subjective Interval history: Follow-up [facility] July 01, 2018-patient seen and examined, stable, no acute event overnight. Afebrile. July 02, 2018-patient seen and examined, no change and states he is upset because his team lost a baseball game last night. Otherwise stable Physical Exam Vital signs: Vital Signs 07/01/18 11:58 07/01/18 15:42 07/01/18 20:00 Temperature 98 F 97.4 F L 97.6 F Pulse Rate 101 H 88 95 H Respiratory Rate 18 Blood Pressure 101/69 107/70 97/53 L Pulse Oximetry 98 98 96 07/02/18 00:38 07/02/18 04:58 07/02/18 07:41 Temperature 98 F 97.4 F L 97.9 F Pulse Rate 78 70 69 Respiratory Rate 15 17 18 Blood Pressure 92/58 L 98/66 L 101/68 Pulse Oximetry 96 98 98 Intake & Output 07/01/18 07/02/18 07/02/18 18:59 06:59 18:59 Intake Total 1080 / 1080 Balance 1080 / 1080 Weight 56.3 kg Intake: Oral 1080 / 1080 Other: # Voids 3 3 Date of Last Bowel Movement 06/30/18 07/01/18 07/01/18 # Bowel Movements 1 Narrative: GENERAL: NAD. SKIN: Warm and dry. HEENT: Right cranioplasty surgical incision, healing well. Pupils equal and round. MM pink and moist. CARDIOVASCULAR: Regular rate and rhythm. No murmur noted. RESPIRATORY: No accessory muscle use. Clear to auscultation. Breath sounds equal bilaterally. GASTROINTESTINAL: Abdomen soft, nontender, nondistended. Peg Tube in place MUSCULOSKELETAL: Extremities without clubbing, cyanosis, or edema. No obvious deformities. NEUROLOGICAL: Awake and alert. Generalized weakness, moving all 4 extremities. Normal speech. - Urinary Catheter Management Indwelling Temp Sensing Catheter Cath placed during this visit: yes, but has since been removed by the nurse Reason for continuing: Not indwelling catheter Insertion date: 03/12/18 Insertion time: 05:30 Removal date: 03/25/18 Removal time: 18:00 Indwelling Urethral Catheter Cath placed during this visit: yes, but has since been removed by the nurse Reason for continuing: Decision to DC catheter Insertion date: 03/22/18 Insertion time: 17:30 Removal date: 03/25/18 Removal time: 18:00 Condom Cath placed during this visit: yes, but has since been removed by the nurse Reason for continuing: Hourly intake/output Insertion date: 05/13/18 Insertion time: 14:30 Removal date: 03/25/18 Removal time: 18:00 Results - Labs CBC & Chem 7: 06/27/18 07:15 06/27/18 07:15 - Procedures PEG 7 right decompressive craniectomy 03/22/18 with placement of ICP monitor by Dr. Chacko, ks'ed 03/23/18 03/22/18 Right frontotemporal parietal decompressive craniectomy and Duroplasty 03/22/18 Left frontal bur hole with placement of an intracranial pressure monitor Assessment and Plan - Assessment (1) Intracranial hemorrhage following injury Code(s): S06.309A - Unspecified focal traumatic brain injury with loss of consciousness of unspecified duration, initial encounter Status: Acute (2) Traumatic brain injury Code(s): S06.9X9A - Unspecified intracranial injury with loss of consciousness of unspecified duration, initial encounter Status: Acute (3) Fall Code(s): W19.XXXA - Unspecified fall, initial encounter Status: Chronic (4) Cocaine abuse Code(s): F14.10 - Cocaine abuse, uncomplicated Status: Chronic (5) ETOH abuse Code(s): F10.10 - Alcohol abuse, uncomplicated Status: Chronic (6) Dysphagia Code(s): R13.10 - Dysphagia, unspecified Status: Acute - Plan 63-year-old man with TBI, Right frontal IPH 53.3 cm. SAH bilat frontal lobes, right parietal, temporal. Right frontotemporal SDH Status post emergency craniectomy for decompression for worsening midline shift right to left 2.1 cm Hx Daily alcohol use/Cocaine abuse, s/p Fall, ?syncope -s/p Right frontotemporal parietal decompressive craniectomy and Duroplasty 03/[address] Chacko. -s/p right cranioplasty 05/13/18, incision healing well. -Continue with PT/OT - -Seizure precautions -Palliative care following -Neuropsychiatry, Dr. Narvaez following: Noted signs and symptoms of frontal lobe dysfunction and lack decision making capacity -Continue on Topamax. Dysphagia Protein calorie malnutrition s/p PEG tube placement 03/30/18 -Remeron QHS Neutropenia -likely due to Fortaz. Fortaz discontinued. Hypernatremia, resolved Headache-improved -Neurology following, appreciate assistance. -Topamax 75mg BID Acute respiratory failure secondary to failure to protect airway-resolved extubated 03/25. MRSA pneumonia, status post treatment with IV vancomycin and Rocephin -CXR negative 06/10 -Continue as needed duo nebs, Supplemental oxygen as needed UTI/Pseudomonas -resolved -06/12 repeat UA positive for Pseudomonas and Enterococcus Faecalis -initially Treated with Ceftazidime, discontinued secondary to neutropenia -s/p abx treatment with Cipro Hepatitis C, history of -avoid hepatotoxic agents -patient will need to follow up with GI as outpatient (2) Traumatic brain injury Qualifiers: Encounter type: subsequent encounter
[2018-07-02] MEDS: Mirtazapine 15 MG Tablet PO SCH (22:33)
[2018-07-03] MEDS: Heparin - SQ 10,000 UNITS/ML Vial SQ SCH ×2 (10:01→20:12)
[2018-07-03] MEDS: Senna/Docusate Sodium 8.6/50 MG Tablet PO SCH ×2 (10:01→20:12)
[2018-07-03] MEDS: Topiramate 25 MG Tablet PO SCH ×2 (10:01→22:32)
--- NOTE | 2018-07-03 10:48 | P.PN ---
Subjective Interval history: Patient seen and examined He remained stable Vital stable Afebrile Taking p.o. well Physical Exam Vital signs: Vital Signs 07/02/18 12:00 07/02/18 15:41 07/02/18 20:00 Temperature 98.2 F 97.7 F 98.0 F Pulse Rate 79 69 80 Respiratory Rate 18 18 15 Blood Pressure 103/67 101/68 100/57 L Pulse Oximetry 96 98 96 07/02/18 22:33 07/03/18 00:00 07/03/18 08:00 Temperature 97.7 F 97.8 F Pulse Rate 75 77 Respiratory Rate 18 17 18 Blood Pressure 102/61 110/70 Pulse Oximetry 97 100 Intake & Output 07/02/18 07/03/18 07/03/18 18:59 06:59 18:59 Intake Total 940 / 940 Balance 940 / 940 Weight 50.4 kg Intake: Oral 640 / 640 Tube Irrigant 300 / 300 Anesthesia Amount 0 / 0 Other: Other Intake Source Saline Solution # Voids 3 3 Date of Last Bowel Movement 07/01/18 07/01/18 Narrative: GENERAL: NAD. SKIN: Warm and dry. HEENT: Right cranioplasty surgical incision, healing well. Pupils equal and round. MM pink and moist. CARDIOVASCULAR: Regular rate and rhythm. No murmur noted. RESPIRATORY: No accessory muscle use. Clear to auscultation. Breath sounds equal bilaterally. GASTROINTESTINAL: Abdomen soft, nontender, nondistended. Peg Tube in place MUSCULOSKELETAL: Extremities without clubbing, cyanosis, or edema. No obvious deformities. NEUROLOGICAL: Awake and alert. Generalized weakness, moving all 4 extremities. Normal speech. - Urinary Catheter Management Indwelling Temp Sensing Catheter Cath placed during this visit: yes, but has since been removed by the nurse Reason for continuing: Not indwelling catheter Insertion date: 03/12/18 Insertion time: 05:30 Removal date: 03/25/18 Removal time: 18:00 Indwelling Urethral Catheter Cath placed during this visit: yes, but has since been removed by the nurse Reason for continuing: Decision to DC catheter Insertion date: 03/22/18 Insertion time: 17:30 Removal date: 03/25/18 Removal time: 18:00 Condom Cath placed during this visit: yes, but has since been removed by the nurse Reason for continuing: Hourly intake/output Insertion date: 05/13/18 Insertion time: 14:30 Removal date: 03/25/18 Removal time: 18:00 Results - Labs CBC & Chem 7: 06/27/18 07:15 06/27/18 07:15 - Procedures PEG right decompressive craniectomy 03/22/18 with placement of ICP monitor by Dr. Chacko, wa'ed 03/23/18 03/22/18 Right frontotemporal parietal decompressive craniectomy and Duroplasty 03/22/18 Left frontal bur hole with placement of an intracranial pressure monitor Assessment and Plan - Assessment (1) Intracranial hemorrhage following injury Code(s): S06.309A - Unspecified focal traumatic brain injury with loss of consciousness of unspecified duration, initial encounter Status: Acute (2) Traumatic brain injury Code(s): S06.9X9A - Unspecified intracranial injury with loss of consciousness of unspecified duration, initial encounter Status: Acute (3) Fall Code(s): W19.XXXA - Unspecified fall, initial encounter Status: Chronic (4) Cocaine abuse Code(s): F14.10 - Cocaine abuse, uncomplicated Status: Chronic (5) ETOH abuse Code(s): F10.10 - Alcohol abuse, uncomplicated Status: Chronic (6) Dysphagia Code(s): R13.10 - Dysphagia, unspecified Status: Acute - Plan 63-year-old man with TBI, Right frontal IPH 53.3 cm. SAH bilat frontal lobes, right parietal, temporal. Right frontotemporal SDH Status post emergency craniectomy for decompression for worsening midline shift right to left 2.1 cm Hx Daily alcohol use/Cocaine abuse, s/p Fall, ?syncope -s/p Right frontotemporal parietal decompressive craniectomy and Duroplasty 03/[address] Chacko. -s/p right cranioplasty 05/13/18, incision healing well. -Continue with PT/OT - -Seizure precautions -Palliative care following -Neuropsychiatry, Dr. Narvaez following: Noted signs and symptoms of frontal lobe dysfunction and lack decision making capacity -Continue on Topamax. Dysphagia Protein calorie malnutrition s/p PEG tube placement 03/30/18 -Remeron QHS Neutropenia -likely due to Fortaz. Fortaz discontinued. Hypernatremia, resolved Headache-improved -Neurology following, appreciate assistance. -Topamax 75mg BID Acute respiratory failure secondary to failure to protect airway-resolved extubated 03/25. MRSA pneumonia, status post treatment with IV vancomycin and Rocephin -CXR negative 06/10 -Continue as needed duo nebs, Supplemental oxygen as needed UTI/Pseudomonas -resolved -06/12 repeat UA positive for Pseudomonas and Enterococcus Faecalis -initially Treated with Ceftazidime, discontinued secondary to neutropenia -s/p abx treatment with Cipro Hepatitis C, history of -avoid hepatotoxic agents -patient will need to follow up with GI as outpatient Continue current treatment as of July 03, 2018 (2) Traumatic brain injury Qualifiers: Encounter type: subsequent encounter
[2018-07-03] MEDS: Mirtazapine 15 MG Tablet PO SCH (22:33)
--- NOTE | 2018-07-04 09:02 | P.PN ---
Subjective Interval history: Patient seen and examined Afebrile No complaints No acute event overnight Physical Exam Vital signs: Vital Signs 07/03/18 12:00 07/03/18 16:00 07/03/18 20:00 Temperature 98.3 F 98.1 F 97.9 F Pulse Rate 90 89 83 Respiratory Rate 18 18 19 Blood Pressure 94/58 L 98/65 L 95/65 L Pulse Oximetry 97 93 L 96 07/03/18 22:32 07/03/18 23:00 07/04/18 01:48 Temperature 97.8 F Pulse Rate 75 Respiratory Rate 19 19 21 Blood Pressure 103/69 Pulse Oximetry 96 07/04/18 04:00 Temperature 97.1 F L Pulse Rate 70 Respiratory Rate 16 Blood Pressure 117/73 Pulse Oximetry 97 Intake & Output 07/03/18 07/04/18 07/04/18 18:59 06:59 18:59 Weight 58.6 kg Other: # Voids 3 # Incontinent Voids 3 Date of Last Bowel Movement 07/02/18 07/02/18 Narrative: GENERAL: NAD. SKIN: Warm and dry. HEENT: Right cranioplasty surgical incision, healing well. Pupils equal and round. MM pink and moist. CARDIOVASCULAR: Regular rate and rhythm. No murmur noted. RESPIRATORY: No accessory muscle use. Clear to auscultation. Breath sounds equal bilaterally. GASTROINTESTINAL: Abdomen soft, nontender, nondistended. Peg Tube in place MUSCULOSKELETAL: Extremities without clubbing, cyanosis, or edema. No obvious deformities. NEUROLOGICAL: Awake and alert. Generalized weakness, moving all 4 extremities. Normal speech. - Urinary Catheter Management Indwelling Temp Sensing Catheter Cath placed during this visit: yes, but has since been removed by the nurse Reason for continuing: Not indwelling catheter Insertion date: 03/12/18 Insertion time: 05:30 Removal date: 03/25/18 Removal time: 18:00 Indwelling Urethral Catheter Cath placed during this visit: yes, but has since been removed by the nurse Reason for continuing: Decision to DC catheter Insertion date: 03/22/18 Insertion time: 17:30 Removal date: 03/25/18 Removal time: 18:00 Condom Cath placed during this visit: yes, but has since been removed by the nurse Reason for continuing: Hourly intake/output Insertion date: 05/13/18 Insertion time: 14:30 Removal date: 03/25/18 Removal time: 18:00 Results - Labs CBC & Chem 7: 06/27/18 07:15 06/27/18 07:15 - Procedures PEG 7 right decompressive craniectomy 03/22/18 with placement of ICP [facility] 03/22/18 Right frontotemporal parietal decompressive craniectomy and Duroplasty 03/22/18 Left frontal bur hole with placement of an intracranial pressure monitor Assessment and Plan - Assessment (1) Intracranial hemorrhage following injury Code(s): S06.309A - Unspecified focal traumatic brain injury with loss of consciousness of unspecified duration, initial encounter Status: Acute (2) Traumatic brain injury Code(s): S06.9X9A - Unspecified intracranial injury with loss of consciousness of unspecified duration, initial encounter Status: Acute (3) Fall Code(s): W19.XXXA - Unspecified fall, initial encounter Status: Chronic (4) Cocaine abuse Code(s): F14.10 - Cocaine abuse, uncomplicated Status: Chronic (5) ETOH abuse Code(s): F10.10 - Alcohol abuse, uncomplicated Status: Chronic (6) Dysphagia Code(s): R13.10 - Dysphagia, unspecified Status: Acute - Plan 63-year-old man with TBI, Right frontal IPH 53.3 cm. SAH bilat frontal lobes, right parietal, temporal. Right frontotemporal SDH Status post emergency craniectomy for decompression for worsening midline shift right to left 2.1 cm Hx Daily alcohol use/Cocaine abuse, s/p Fall, ?syncope -s/p Right frontotemporal parietal decompressive craniectomy and Duroplasty 03/[address] Chacko. -s/p right cranioplasty 05/13/18, incision healing well. -Continue with PT/OT - -Seizure precautions -Palliative care following -Neuropsychiatry, Dr. Narvaez following: Noted signs and symptoms of frontal lobe dysfunction and lack decision making capacity -Continue on Topamax. Dysphagia Protein calorie malnutrition s/p PEG tube placement 03/30/18 -Remeron QHS Neutropenia -likely due to Fortaz. Fortaz discontinued. Hypernatremia, resolved Headache-improved -Neurology following, appreciate assistance. -Topamax 75mg BID Acute respiratory failure secondary to failure to protect airway-resolved extubated 03/25. MRSA pneumonia, status post treatment with IV vancomycin and Rocephin -CXR negative 06/10 -Continue as needed duo nebs, Supplemental oxygen as needed UTI/Pseudomonas -resolved -06/12 repeat UA positive for Pseudomonas and Enterococcus Faecalis -initially Treated with Ceftazidime, discontinued secondary to neutropenia -s/p abx treatment with Cipro Hepatitis C, history of -avoid hepatotoxic agents -patient will need to follow up with GI as outpatient Continue current treatment as of July 04, 2018 (2) Traumatic brain injury Qualifiers: Encounter type: subsequent encounter
[2018-07-04] MEDS: Heparin - SQ 10,000 UNITS/ML Vial SQ SCH ×2 (09:22→22:14)
[2018-07-04] MEDS: Senna/Docusate Sodium 8.6/50 MG Tablet PO SCH ×2 (09:23→22:14)
[2018-07-04] MEDS: Topiramate 25 MG Tablet PO SCH ×2 (09:23→22:12)
[2018-07-04] MEDS: Mirtazapine 15 MG Tablet PO SCH (22:14)
[2018-07-05] MEDS: Heparin - SQ 10,000 UNITS/ML Vial SQ SCH (08:06)
[2018-07-05] MEDS: Senna/Docusate Sodium 8.6/50 MG Tablet PO SCH (08:06)
[2018-07-05] MEDS: Topiramate 25 MG Tablet PO SCH (08:06)
--- NOTE | 2018-07-05 10:37 | P.PN ---
Subjective Interval history: Patient seen and examined He was resting No acute event overnight Vital stable Afebrile Physical Exam Vital signs: Vital Signs 07/04/18 12:00 07/04/18 16:00 07/04/18 20:00 Temperature 97.2 F L 97.0 F L 98.2 F Pulse Rate 84 72 85 Respiratory Rate 18 18 18 Blood Pressure 114/85 98/72 L 106/68 Pulse Oximetry 97 98 100 07/04/18 22:12 07/05/18 00:00 07/05/18 02:25 Temperature 97.4 F L Pulse Rate 73 Respiratory Rate 18 20 18 Blood Pressure 99/60 L Pulse Oximetry 97 07/05/18 04:00 07/05/18 07:58 07/05/18 08:00 Temperature 98.5 F 97.4 F L Pulse Rate 72 84 Respiratory Rate 15 16 18 Blood Pressure 109/68 109/72 Pulse Oximetry 99 98 Intake & Output 07/04/18 07/05/18 07/05/18 18:59 06:59 18:59 Intake Total 1724 / 1724 Output Total 203 / 203 Balance 1521 / 1521 Weight 55.6 kg Intake: Oral 400 / 400 Oral Supplement 0 / 0 Tube Feeding 900 / 900 Tube Irrigant 300 / 300 Water Bolus Amount 120 / 120 Anesthesia Amount 0 / 0 Other 4 / 4 Output: Urine 200 / 200 Stool 1 / 1 Urine/Stool Mix 2 / 2 Other: Post Void Residual 0 Other Intake Source Saline Solution # Voids 1 # Incontinent Voids 3 # Urine Diapers 2 Date of Last Bowel Movement 07/04/18 # Bowel Movements 1 # Incontinent Bowel Movements 1 Narrative: GENERAL: NAD and sleeping SKIN: Warm and dry. HEENT: Right cranioplasty surgical incision, healing well. Pupils equal and round. MM pink and moist. CARDIOVASCULAR: Regular rate and rhythm. No murmur noted. RESPIRATORY: No accessory muscle use. Clear to auscultation. Breath sounds equal bilaterally. GASTROINTESTINAL: Abdomen soft, nontender, nondistended. Peg Tube in place MUSCULOSKELETAL: Extremities without clubbing, cyanosis, or edema. No obvious deformities. NEUROLOGICAL: Awake and alert. Generalized weakness, moving all 4 extremities. Normal speech. - Urinary Catheter Management Indwelling Temp Sensing Catheter Cath placed during this visit: yes, but has since been removed by the nurse Reason for continuing: Not indwelling catheter Insertion date: 03/12/18 Insertion time: 05:30 Removal date: 03/25/18 Removal time: 18:00 Indwelling Urethral Catheter Cath placed during this visit: yes, but has since been removed by the nurse Reason for continuing: Decision to DC catheter Insertion date: 03/22/18 Insertion time: 17:30 Removal date: 03/25/18 Removal time: 18:00 Condom Cath placed during this visit: yes, but has since been removed by the nurse Reason for continuing: Hourly intake/output Insertion date: 05/13/18 Insertion time: 14:30 Removal date: 03/25/18 Removal time: 18:00 Results - Labs CBC & Chem 7: 06/27/18 07:15 06/27/18 07:15 - Procedures PEG 7 -25 right decompressive craniectomy 03/22/18 with placement of ICP monitor by Dr. Chacko, ny'ed 03/23/18 03/22/18 Right frontotemporal parietal decompressive craniectomy and Duroplasty 03/22/18 Left frontal bur hole with placement of an intracranial pressure monitor Assessment and Plan - Assessment (1) Intracranial hemorrhage following injury Code(s): S06.309A - Unspecified focal traumatic brain injury with loss of consciousness of unspecified duration, initial encounter Status: Acute (2) Traumatic brain injury Code(s): S06.9X9A - Unspecified intracranial injury with loss of consciousness of unspecified duration, initial encounter Status: Acute (3) Fall Code(s): W19.XXXA - Unspecified fall, initial encounter Status: Chronic (4) Cocaine abuse Code(s): F14.10 - Cocaine abuse, uncomplicated Status: Chronic (5) ETOH abuse Code(s): F10.10 - Alcohol abuse, uncomplicated Status: Chronic (6) Dysphagia Code(s): R13.10 - Dysphagia, unspecified Status: Acute - Plan 63-year-old man with TBI, Right frontal IPH 53.3 cm. SAH bilat frontal lobes, right parietal, temporal. Right frontotemporal SDH Status post emergency craniectomy for decompression for worsening midline shift right to left 2.1 cm Hx Daily alcohol use/Cocaine abuse, s/p Fall, ?syncope -s/p Right frontotemporal parietal decompressive craniectomy and Duroplasty 03/[address] Chacko. -s/p right cranioplasty 05/13/18, incision healing well. -Continue with PT/OT - -Seizure precautions -Palliative care following -Neuropsychiatry, Dr. Narvaez following: Noted signs and symptoms of frontal lobe dysfunction and lack decision making capacity -Continue on Topamax. Dysphagia Protein calorie malnutrition s/p PEG tube placement 03/30/18 -Remeron QHS Neutropenia -likely due to Fortaz. Fortaz discontinued. Hypernatremia, resolved Headache-improved -Neurology following, appreciate assistance. -Topamax 75mg BID Acute respiratory failure secondary to failure to protect airway-resolved extubated 03/25. MRSA pneumonia, status post treatment with IV vancomycin and Rocephin -CXR negative 06/10 -Continue as needed duo nebs, Supplemental oxygen as needed UTI/Pseudomonas -resolved -06/12 repeat UA positive for Pseudomonas and Enterococcus Faecalis -initially Treated with Ceftazidime, discontinued secondary to neutropenia -s/p abx treatment with Cipro Hepatitis C, history of -avoid hepatotoxic agents -follow up with GI as outpatient Continue current treatment as of July 05, 2018 (2) Traumatic brain injury Qualifiers: Encounter type: subsequent encounter
[2018-07-06] MEDS: Senna/Docusate Sodium 8.6/50 MG Tablet PO SCH ×3 (01:07→20:43)
[2018-07-06] MEDS: Heparin - SQ 10,000 UNITS/ML Vial SQ SCH ×3 (01:07→20:42)
[2018-07-06] MEDS: Topiramate 25 MG Tablet PO SCH ×3 (01:08→20:42)
[2018-07-06] MEDS: Mirtazapine 15 MG Tablet PO SCH ×2 (01:08→20:42)
--- NOTE | 2018-07-06 10:54 | P.PN ---
Subjective Interval history: Patient seen and examined, resting Stable Afebrile Physical Exam Vital signs: Vital Signs 07/05/18 12:00 07/05/18 16:00 07/05/18 20:00 Temperature 98.0 F 98.3 F 98.0 F Pulse Rate 83 80 79 Respiratory Rate 18 18 19 Blood Pressure 96/62 L 96/64 L 101/60 Pulse Oximetry 98 98 98 07/06/18 00:00 07/06/18 04:00 07/06/18 08:00 Temperature 98.7 F 97.5 F L 98 F Pulse Rate 80 72 73 Respiratory Rate 20 17 16 Blood Pressure 101/64 115/70 110/75 Pulse Oximetry 100 97 97 Intake & Output 07/05/18 07/06/18 07/06/18 18:59 06:59 18:59 Intake Total 820 / 820 Balance 820 / 820 Weight 55.6 kg Intake: Oral 820 / 820 Other: # Voids 2 # Incontinent Voids 3 # Urine Diapers 3 Date of Last Bowel Movement 07/04/18 Narrative: GENERAL: NAD and sleeping SKIN: Warm and dry. HEENT: Right cranioplasty surgical incision, healing well. Pupils equal and round. MM pink and moist. CARDIOVASCULAR: Regular rate and rhythm. No murmur noted. RESPIRATORY: No accessory muscle use. Clear to auscultation. Breath sounds equal bilaterally. GASTROINTESTINAL: Abdomen soft, nontender, nondistended. Peg Tube in place MUSCULOSKELETAL: Extremities without clubbing, cyanosis, or edema. No obvious deformities. NEUROLOGICAL: Awake and alert. Generalized weakness, moving all 4 extremities. Normal speech. - Urinary Catheter Management Indwelling Temp Sensing Catheter Cath placed during this visit: yes, but has since been removed by the nurse Reason for continuing: Not indwelling catheter Insertion date: 03/12/18 Insertion time: 05:30 Removal date: 03/25/18 Removal time: 18:00 Indwelling Urethral Catheter Cath placed during this visit: yes, but has since been removed by the nurse Reason for continuing: Decision to DC catheter Insertion date: 03/22/18 Insertion time: 17:30 Removal date: 03/25/18 Removal time: 18:00 Condom Cath placed during this visit: yes, but has since been removed by the nurse Reason for continuing: Hourly intake/output Insertion date: 05/13/18 Insertion time: 14:30 Removal date: 03/25/18 Removal time: 18:00 Results - Labs CBC & Chem 7: 06/27/18 07:15 06/27/18 07:15 - Procedures PEG right decompressive craniectomy 03/22/18 with placement of ICP monitor by Dr. Chacko, nj'ed 03/23/18 03/22/18 Right frontotemporal parietal decompressive craniectomy and Duroplasty 03/22/18 Left frontal bur hole with placement of an intracranial pressure monitor Assessment and Plan - Assessment (1) Intracranial hemorrhage following injury Code(s): S06.309A - Unspecified focal traumatic brain injury with loss of consciousness of unspecified duration, initial encounter Status: Acute (2) Traumatic brain injury Code(s): S06.9X9A - Unspecified intracranial injury with loss of consciousness of unspecified duration, initial encounter Status: Acute (3) Fall Code(s): W19.XXXA - Unspecified fall, initial encounter Status: Chronic (4) Cocaine abuse Code(s): F14.10 - Cocaine abuse, uncomplicated Status: Chronic (5) ETOH abuse Code(s): F10.10 - Alcohol abuse, uncomplicated Status: Chronic (6) Dysphagia Code(s): R13.10 - Dysphagia, unspecified Status: Acute - Plan 63-year-old man with TBI, Right frontal IPH 53.3 cm. SAH bilat frontal lobes, right parietal, temporal. Right frontotemporal SDH Status post emergency craniectomy for decompression for worsening midline shift right to left 2.1 cm Hx Daily alcohol use/Cocaine abuse, s/p Fall, ?syncope -s/p Right frontotemporal parietal decompressive craniectomy and Duroplasty 03/[address] Chacko. -s/p right cranioplasty 05/13/18, incision healing well. -Continue with PT/OT - -Seizure precautions -Palliative care following -Neuropsychiatry, Dr. Narvaez following: Noted signs and symptoms of frontal lobe dysfunction and lack decision making capacity -Continue on Topamax. Dysphagia Protein calorie malnutrition s/p PEG tube placement 03/30/18 -Remeron QHS Neutropenia -likely due to Fortaz. Fortaz discontinued. Hypernatremia, resolved Headache-improved -Neurology following, appreciate assistance. -Topamax 75mg BID Acute respiratory failure secondary to failure to protect airway-resolved extubated 03/25. MRSA pneumonia, status post treatment with IV vancomycin and Rocephin -CXR negative 06/10 -Continue as needed duo nebs, Supplemental oxygen as needed UTI/Pseudomonas -resolved -06/12 repeat UA positive for Pseudomonas and Enterococcus Faecalis -initially Treated with Ceftazidime, discontinued secondary to neutropenia -s/p abx treatment with Cipro Hepatitis C, history of -avoid hepatotoxic agents -follow up with GI as outpatient Continue current treatment as of July 06, 2018 (2) Traumatic brain injury Qualifiers: Encounter type: subsequent encounter
[2018-07-07] MEDS: Senna/Docusate Sodium 8.6/50 MG Tablet PO SCH ×2 (08:25→20:10)
[2018-07-07] MEDS: Heparin - SQ 10,000 UNITS/ML Vial SQ SCH ×2 (08:25→20:10)
[2018-07-07] MEDS: Topiramate 25 MG Tablet PO SCH ×2 (08:25→20:10)
--- NOTE | 2018-07-07 10:49 | P.PN ---
Subjective Interval history: Patient seen and examined No complaint this a.m. No acute event overnight. Physical Exam Vital signs: Vital Signs 07/06/18 12:00 07/06/18 16:00 07/06/18 20:00 Temperature 97.5 F L 97.3 F L 97.6 F Pulse Rate 104 H 81 79 Respiratory Rate 16 16 18 Blood Pressure 109/71 105/73 102/75 Pulse Oximetry 100 98 98 07/07/18 00:00 07/07/18 04:00 07/07/18 08:00 Temperature 98.3 F 97.4 F L 97.8 F Pulse Rate 80 75 78 Respiratory Rate 18 20 16 Blood Pressure 102/64 120/77 98/66 L Pulse Oximetry 98 99 100 Intake & Output 07/06/18 07/07/18 07/07/18 18:59 06:59 18:59 Intake Total 240 / 240 Balance 240 / 240 Weight 57.4 kg Intake: Oral 240 / 240 Other: # Incontinent Voids 2 Date of Last Bowel Movement 07/04/18 # Incontinent Bowel Movements 1 Narrative: GENERAL: NAD and sleeping SKIN: Warm and dry. HEENT: Right cranioplasty surgical incision, healing well. Pupils equal and round. MM pink and moist. CARDIOVASCULAR: Regular rate and rhythm. No murmur noted. RESPIRATORY: No accessory muscle use. Clear to auscultation. Breath sounds equal bilaterally. GASTROINTESTINAL: Abdomen soft, nontender, nondistended. Peg Tube in place MUSCULOSKELETAL: Extremities without clubbing, cyanosis, or edema. No obvious deformities. NEUROLOGICAL: Awake and alert. Generalized weakness, moving all 4 extremities. Normal speech. - Urinary Catheter Management Indwelling Temp Sensing Catheter Cath placed during this visit: yes, but has since been removed by the nurse Reason for continuing: Not indwelling catheter Insertion date: 03/12/18 Insertion time: 05:30 Removal date: 03/25/18 Removal time: 18:00 Indwelling Urethral Catheter Cath placed during this visit: yes, but has since been removed by the nurse Reason for continuing: Decision to DC catheter Insertion date: 03/22/18 Insertion time: 17:30 Removal date: 03/25/18 Removal time: 18:00 Condom Cath placed during this visit: yes, but has since been removed by the nurse Reason for continuing: Hourly intake/output Insertion date: 05/13/18 Insertion time: 14:30 Removal date: 03/25/18 Removal time: 18:00 Results - Labs CBC & Chem 7: 06/27/18 07:15 06/27/18 07:15 - Procedures PEG right decompressive craniectomy 03/22/18 with placement of ICP monitor by Dr. Chacko, ks'ed 03/23/18 03/22/18 Right frontotemporal parietal decompressive craniectomy and Duroplasty 03/22/18 Left frontal bur hole with placement of an intracranial pressure monitor Assessment and Plan - Assessment (1) Intracranial hemorrhage following injury Code(s): S06.309A - Unspecified focal traumatic brain injury with loss of consciousness of unspecified duration, initial encounter Status: Acute (2) Traumatic brain injury Code(s): S06.9X9A - Unspecified intracranial injury with loss of consciousness of unspecified duration, initial encounter Status: Acute (3) Fall Code(s): W19.XXXA - Unspecified fall, initial encounter Status: Chronic (4) Cocaine abuse Code(s): F14.10 - Cocaine abuse, uncomplicated Status: Chronic (5) ETOH abuse Code(s): F10.10 - Alcohol abuse, uncomplicated Status: Chronic (6) Dysphagia Code(s): R13.10 - Dysphagia, unspecified Status: Acute - Plan 63-year-old man with TBI, Right frontal IPH 53.3 cm. SAH bilat frontal lobes, right parietal, temporal. Right frontotemporal SDH Status post emergency craniectomy for decompression for worsening midline shift right to left 2.1 cm Hx Daily alcohol use/Cocaine abuse, s/p Fall, ?syncope -s/p Right frontotemporal parietal decompressive craniectomy and Duroplasty 03/[address] Chacko. -s/p right cranioplasty 05/13/18, incision healing well. -Continue with PT/OT - -Seizure precautions -Palliative care following -Neuropsychiatry, Dr. Narvaez following: Noted signs and symptoms of frontal lobe dysfunction and lack decision making capacity -Continue on Topamax. Dysphagia Protein calorie malnutrition s/p PEG tube placement 03/30/18 -Remeron QHS Neutropenia -likely due to Fortaz. Fortaz discontinued. Hypernatremia, resolved Headache-improved -Neurology following, appreciate assistance. -Topamax 75mg BID Acute respiratory failure secondary to failure to protect airway-resolved extubated 03/25. MRSA pneumonia, status post treatment with IV vancomycin and Rocephin -CXR negative 06/10 -Continue as needed duo nebs, Supplemental oxygen as needed UTI/Pseudomonas -resolved -06/12 repeat UA positive for Pseudomonas and Enterococcus Faecalis -initially Treated with Ceftazidime, discontinued secondary to neutropenia -s/p abx treatment with Cipro Hepatitis C, history of -avoid hepatotoxic agents -follow up with GI as outpatient Continue current treatment as of July 07, 2018 (2) Traumatic brain injury Qualifiers: Encounter type: subsequent encounter
[2018-07-07] MEDS: Mirtazapine 15 MG Tablet PO SCH (20:10)
[2018-07-08] MEDS: Senna/Docusate Sodium 8.6/50 MG Tablet PO SCH ×2 (10:22→23:05)
[2018-07-08] MEDS: Heparin - SQ 10,000 UNITS/ML Vial SQ SCH ×2 (10:22→23:05)
[2018-07-08] MEDS: Topiramate 25 MG Tablet PO SCH ×2 (10:22→23:05)
--- NOTE | 2018-07-08 12:07 | P.PN ---
Subjective Interval history: Patient stable Has no complaint State he ate and enjoys his breakfast this morning Physical Exam Vital signs: Vital Signs 07/07/18 16:00 07/07/18 20:00 07/08/18 00:00 Temperature 97.6 F 97.8 F 97.7 F Pulse Rate 84 84 73 Respiratory Rate 16 16 16 Blood Pressure 119/76 110/67 103/73 Pulse Oximetry 99 99 100 07/08/18 04:00 07/08/18 08:00 Temperature 97.5 F L 97.9 F Pulse Rate 80 74 Respiratory Rate 16 16 Blood Pressure 104/66 101/70 Pulse Oximetry 99 99 Intake & Output 07/07/18 07/08/18 07/08/18 18:59 06:59 18:59 Intake Total 240 / 240 Balance 240 / 240 Weight 57 kg Intake: Oral 240 / 240 Other: # Incontinent Voids 2 Date of Last Bowel Movement 07/04/18 Narrative: GENERAL: NAD and sleeping SKIN: Warm and dry. HEENT: Right cranioplasty surgical incision, healing well. Pupils equal and round. MM pink and moist. CARDIOVASCULAR: Regular rate and rhythm. No murmur noted. RESPIRATORY: No accessory muscle use. Clear to auscultation. Breath sounds equal bilaterally. GASTROINTESTINAL: Abdomen soft, nontender, nondistended. Peg Tube in place MUSCULOSKELETAL: Extremities without clubbing, cyanosis, or edema. No obvious deformities. NEUROLOGICAL: Awake and alert. Generalized weakness, moving all 4 extremities. Normal speech. - Urinary Catheter Management Indwelling Temp Sensing Catheter Cath placed during this visit: yes, but has since been removed by the nurse Reason for continuing: Not indwelling catheter Insertion date: 03/12/18 Insertion time: 05:30 Removal date: 03/25/18 Removal time: 18:00 Indwelling Urethral Catheter Cath placed during this visit: yes, but has since been removed by the nurse Reason for continuing: Decision to DC catheter Insertion date: 03/22/18 Insertion time: 17:30 Removal date: 03/25/18 Removal time: 18:00 Condom Cath placed during this visit: yes, but has since been removed by the nurse Reason for continuing: Hourly intake/output Insertion date: 05/13/18 Insertion time: 14:30 Removal date: 03/25/18 Removal time: 18:00 Results - Labs CBC & Chem 7: 06/27/18 07:15 06/27/18 07:15 - Procedures PEG right decompressive craniectomy 03/22/18 with placement of ICP monitor by Dr. Chacko, oh'ed 03/23/18 03/22/18 Right frontotemporal parietal decompressive craniectomy and Duroplasty 03/22/18 Left frontal bur hole with placement of an intracranial pressure monitor Assessment and Plan - Assessment (1) Intracranial hemorrhage following injury Code(s): S06.309A - Unspecified focal traumatic brain injury with loss of consciousness of unspecified duration, initial encounter Status: Acute (2) Traumatic brain injury Code(s): S06.9X9A - Unspecified intracranial injury with loss of consciousness of unspecified duration, initial encounter Status: Acute (3) Fall Code(s): W19.XXXA - Unspecified fall, initial encounter Status: Chronic (4) Cocaine abuse Code(s): F14.10 - Cocaine abuse, uncomplicated Status: Chronic (5) ETOH abuse Code(s): F10.10 - Alcohol abuse, uncomplicated Status: Chronic (6) Dysphagia Code(s): R13.10 - Dysphagia, unspecified Status: Acute - Plan 63-year-old man with TBI, Right frontal IPH 53.3 cm. SAH bilat frontal lobes, right parietal, temporal. Right frontotemporal SDH Status post emergency craniectomy for decompression for worsening midline shift right to left 2.1 cm Hx Daily alcohol use/Cocaine abuse, s/p Fall, ?syncope -s/p Right frontotemporal parietal decompressive craniectomy and Duroplasty 03/[address] Chacko. -s/p right cranioplasty 05/13/18, incision healing well. -Continue with PT/OT - -Seizure precautions -Palliative care following -Neuropsychiatry, Dr. Narvaez following: Noted signs and symptoms of frontal lobe dysfunction and lack decision making capacity -Continue on Topamax. Dysphagia Protein calorie malnutrition s/p PEG tube placement 03/30/18 -Remeron QHS Neutropenia -likely due to Fortaz. Fortaz discontinued. Hypernatremia, resolved Headache-improved -Neurology following, appreciate assistance. -Topamax 75mg BID Acute respiratory failure secondary to failure to protect airway-resolved extubated 03/25. MRSA pneumonia, status post treatment with IV vancomycin and Rocephin -CXR negative 06/10 -Continue as needed duo nebs, Supplemental oxygen as needed UTI/Pseudomonas -resolved -06/12 repeat UA positive for Pseudomonas and Enterococcus Faecalis -initially Treated with Ceftazidime, discontinued secondary to neutropenia -s/p abx treatment with Cipro Hepatitis C, history of -avoid hepatotoxic agents -follow up with GI as outpatient Continue current treatment as of July 08, 2018 (2) Traumatic brain injury Qualifiers: Encounter type: subsequent encounter
--- NOTE | 2018-07-08 15:07 | P.DIET ---
Nutritional Evaluation Type of nutrition evaluation: follow-up Nutrition consult regarding: Tube Feeding Nutrition screening: [facility] (06/07 NEW [facility] for calorie counting. Pt requesting PEG removal) Screening comments: [facility] (06/22): Trial to turn off TF at 6am to improve intake Subjective Subjective Comments: Pt says he's "working" on his lunch tray when visited and drinking an Ensure. Pt has several bottles of Ensure in his room and says he drinks two Ensures daily. Pt reports that he is eating the Ensure Pudding. Pt says he will drink milk w/his meals. Objective - Diagnosis ICH, SAH, Syncope - Objective % IBW: 87 (IBW = 166#) Body Weight Used for Calculations: Actual (65.4 kg) Energy Needs - Lower Range (kCal/kg): 28 Energy Needs - Upper Range (kCal/kg): 33 Lower Limit kCal/kg (kCals): 1,831 Upper Limit kCal/kg (kCals): 2,158 Lower Limit Protein Factor (Grams per Kg): 1.2 Upper Limit Protein Factor (Grams per Kg): 1.5 Lower Protein Needs (Protein): 79 Upper Protein Needs (Protein): 98 Fluid Factor (ml/kg): 28 Estimated Fluid Needs (ml): 1,831 Dietitian Reviewed in Medical Record: Current diet, Curent medications, Intake & Output, Labs, Medical history, Tube feeding, Wound/DTI Diet Order: Regular Speech Therapy Recommendations: Yes (Regular) Objective Comments: PMH: COPD, Asthma, tobacco abuse, daily ETOH use 03/22 R front temporal parietal decompressive craniectomy Integumentary: coccyx pressure injury PEG placement 03/30/1805/13 R frontal temporal parietal cranioplasty Feeding - Current Tube Feeding Tube Feeding Rate: 85 (mls/hr x 12 hours) - Current PO Supplement Current Supplement: Ensure Enlive Current Frequency of Supplement: Three times a day Current kCals Provided by Supplement: 350 Current Protein Provided by Supplement: 20 Supplement Comments: plus Ensure Pudding(= 170 kcal and 4g protein per serving) Assessment Assessment: Pt continues to be at nutritional risk r/t clinical status and previous need for TF. TF is no longer running. Pt po intake is 50% or greater for meals. Current diet is Cardiac with Ensure Enlive and Ensure Pudding added. CBW is 57 kg which indicates weight loss since admission and his BMI is 17.6. TFing has been put on hold. Labs, wts and clinical course reviewed. I had hoped pt could continue night time TFs until he had brought his weight back up but TF has already been stopped. RD will continue to follow. Recommendations: 1.Continue Ensure Enlive TID 2.Continue Ensure Pudding TID Dietitian to Monitor: Lab values, Supplement acceptance, Intake & Output, Diet tolerance, Weight change, PO Intake, Wound/skin status, Medical course
[2018-07-08] MEDS: Mirtazapine 15 MG Tablet PO SCH (23:05)
[2018-07-09] MEDS: Senna/Docusate Sodium 8.6/50 MG Tablet PO SCH ×2 (09:25→21:50)
[2018-07-09] MEDS: Topiramate 25 MG Tablet PO SCH ×2 (09:26→21:50)
--- NOTE | 2018-07-09 12:29 | P.PN ---
Subjective Interval history: Patient seen and examined Stable No acute event overnight Case discussed with Twin RN Physical Exam Vital signs: Vital Signs 07/08/18 16:00 07/08/18 20:00 07/09/18 00:00 Temperature 97.9 F 97.8 F 97.8 F Pulse Rate 73 82 78 Respiratory Rate 16 16 16 Blood Pressure 111/68 101/68 110/66 Pulse Oximetry 99 98 78 L 07/09/18 04:00 07/09/18 08:00 Temperature 97.9 F 97.4 F L Pulse Rate 73 75 Respiratory Rate 16 18 Blood Pressure 111/70 115/71 Pulse Oximetry 98 99 Intake & Output 07/08/18 07/09/18 07/09/18 18:59 06:59 18:59 Intake Total 720 / 720 Balance 720 / 720 Weight 55.4 kg Intake: Oral 720 / 720 Other: # Incontinent Voids 2 Date of Last Bowel Movement 07/04/18 Narrative: GENERAL: NAD SKIN: Warm and dry. HEENT: Right cranioplasty surgical incision, healing well. Pupils equal and round. MM pink and moist. CARDIOVASCULAR: Regular rate and rhythm. No murmur noted. RESPIRATORY: No accessory muscle use. Clear to auscultation. Breath sounds equal bilaterally. GASTROINTESTINAL: Abdomen soft, nontender, nondistended. Peg Tube in place MUSCULOSKELETAL: Extremities without clubbing, cyanosis, or edema. No obvious deformities. NEUROLOGICAL: Awake and alert. Generalized weakness, moving all 4 extremities. Normal speech. - Urinary Catheter Management Indwelling Temp Sensing Catheter Cath placed during this visit: yes, but has since been removed by the nurse Reason for continuing: Not indwelling catheter Insertion date: 03/12/18 Insertion time: 05:30 Removal date: 03/25/18 Removal time: 18:00 Indwelling Urethral Catheter Cath placed during this visit: yes, but has since been removed by the nurse Reason for continuing: Decision to DC catheter Insertion date: 03/22/18 Insertion time: 17:30 Removal date: 03/25/18 Removal time: 18:00 Condom Cath placed during this visit: yes, but has since been removed by the nurse Reason for continuing: Hourly intake/output Insertion date: 05/13/18 Insertion time: 14:30 Removal date: 03/25/18 Removal time: 18:00 Results - Labs CBC & Chem 7: 06/27/18 07:15 06/27/18 07:15 - Procedures PEG right decompressive craniectomy 03/22/18 with placement of ICP monitor by Dr. Chacko, ne'ed 03/23/18 03/22/18 Right frontotemporal parietal decompressive craniectomy and Duroplasty 03/22/18 Left frontal bur hole with placement of an intracranial pressure monitor Assessment and Plan - Assessment (1) Intracranial hemorrhage following injury Code(s): S06.309A - Unspecified focal traumatic brain injury with loss of consciousness of unspecified duration, initial encounter Status: Acute (2) Traumatic brain injury Code(s): S06.9X9A - Unspecified intracranial injury with loss of consciousness of unspecified duration, initial encounter Status: Acute (3) Fall Code(s): W19.XXXA - Unspecified fall, initial encounter Status: Chronic (4) Cocaine abuse Code(s): F14.10 - Cocaine abuse, uncomplicated Status: Chronic (5) ETOH abuse Code(s): F10.10 - Alcohol abuse, uncomplicated Status: Chronic (6) Dysphagia Code(s): R13.10 - Dysphagia, unspecified Status: Acute - Plan 63-year-old man with TBI, Right frontal IPH 53.3 cm. SAH bilat frontal lobes, right parietal, temporal. Right frontotemporal SDH Status post emergency craniectomy for decompression for worsening midline shift right to left 2.1 cm Hx Daily alcohol use/Cocaine abuse, s/p Fall, ?syncope -s/p Right frontotemporal parietal decompressive craniectomy and Duroplasty 03/[address] Chacko. -s/p right cranioplasty 05/13/18, incision healing well. -Continue with PT/OT - -Seizure precautions -Palliative care following -Neuropsychiatry, Dr. Narvaez following: Noted signs and symptoms of frontal lobe dysfunction and lack decision making capacity -Continue on Topamax. Dysphagia Protein calorie malnutrition s/p PEG tube placement 03/30/18 -Remeron QHS Neutropenia -likely due to Fortaz. Fortaz discontinued. Hypernatremia, resolved Headache-improved -Neurology following, appreciate assistance. -Topamax 75mg BID Acute respiratory failure secondary to failure to protect airway-resolved extubated 03/25. MRSA pneumonia, status post treatment with IV vancomycin and Rocephin -CXR negative 06/10 -Continue as needed duo nebs, Supplemental oxygen as needed UTI/Pseudomonas -resolved -06/12 repeat UA positive for Pseudomonas and Enterococcus Faecalis -initially Treated with Ceftazidime, discontinued secondary to neutropenia -s/p abx treatment with Cipro Hepatitis C, history of -avoid hepatotoxic agents -follow up with GI as outpatient Continue current treatment as of July 09, 2018 (2) Traumatic brain injury Qualifiers: Encounter type: subsequent encounter
[2018-07-09] MEDS: Heparin - SQ 10,000 UNITS/ML Vial SQ SCH (21:46)
[2018-07-09] MEDS: Mirtazapine 15 MG Tablet PO SCH (21:50)
[2018-07-10] MEDS: Heparin - SQ 10,000 UNITS/ML Vial SQ SCH ×3 (09:14→20:43)
[2018-07-10] MEDS: Topiramate 25 MG Tablet PO SCH ×2 (09:15→20:45)
[2018-07-10] MEDS: Senna/Docusate Sodium 8.6/50 MG Tablet PO SCH ×2 (09:16→20:43)
--- NOTE | 2018-07-10 11:35 | P.PN ---
Subjective Interval history: Patient is stable Afebrile No acute event overnight Physical Exam Vital signs: Vital Signs 07/09/18 16:00 07/09/18 20:00 07/10/18 00:00 Temperature 98.6 F 98 F 98.2 F Pulse Rate 73 87 84 Respiratory Rate 16 18 18 Blood Pressure 123/74 96/65 L 106/67 Pulse Oximetry 98 100 100 07/10/18 04:00 07/10/18 08:00 Temperature 97.6 F 97.8 F Pulse Rate 73 71 Respiratory Rate 18 18 Blood Pressure 90/56 L 115/69 Pulse Oximetry 98 99 Intake & Output 07/09/18 07/10/18 07/10/18 19:59 06:59 18:59 Other: Date of Last Bowel Movement Narrative: GENERAL: NAD SKIN: Warm and dry. HEENT: Right cranioplasty surgical incision, healing well. Pupils equal and round. MM pink and moist. CARDIOVASCULAR: Regular rate and rhythm. No murmur noted. RESPIRATORY: No accessory muscle use. Clear to auscultation. Breath sounds equal bilaterally. GASTROINTESTINAL: Abdomen soft, nontender, nondistended. Peg Tube in place MUSCULOSKELETAL: Extremities without clubbing, cyanosis, or edema. No obvious deformities. NEUROLOGICAL: Awake and alert. Generalized weakness, moving all 4 extremities. Normal speech. - Urinary Catheter Management Indwelling Temp Sensing Catheter Cath placed during this visit: yes, but has since been removed by the nurse Reason for continuing: Not indwelling catheter Insertion date: 03/12/18 Insertion time: 05:30 Removal date: 03/25/18 Removal time: 18:00 Indwelling Urethral Catheter Cath placed during this visit: yes, but has since been removed by the nurse Reason for continuing: Decision to DC catheter Insertion date: 03/22/18 Insertion time: 17:30 Removal date: 03/25/18 Removal time: 18:00 Condom Cath placed during this visit: yes, but has since been removed by the nurse Reason for continuing: Hourly intake/output Insertion date: 05/13/18 Insertion time: 14:30 Removal date: 03/25/18 Removal time: 18:00 Results - Labs CBC & Chem 7: 06/27/18 07:15 06/27/18 07:15 - Procedures PEG 7 -25 right decompressive craniectomy 03/22/18 with placement of ICP monitor by Dr. Chacko nh'ed 03/23/18 03/22/18 Right frontotemporal parietal decompressive craniectomy and Duroplasty 03/22/18 Left frontal bur hole with placement of an intracranial pressure monitor Assessment and Plan - Assessment (1) Intracranial hemorrhage following injury Code(s): S06.309A - Unspecified focal traumatic brain injury with loss of consciousness of unspecified duration, initial encounter Status: Acute (2) Traumatic brain injury Code(s): S06.9X9A - Unspecified intracranial injury with loss of consciousness of unspecified duration, initial encounter Status: Acute (3) Fall Code(s): W19.XXXA - Unspecified fall, initial encounter Status: Chronic (4) Cocaine abuse Code(s): F14.10 - Cocaine abuse, uncomplicated Status: Chronic (5) ETOH abuse Code(s): F10.10 - Alcohol abuse, uncomplicated Status: Chronic (6) Dysphagia Code(s): R13.10 - Dysphagia, unspecified Status: Acute - Plan 63-year-old man with TBI, Right frontal IPH 53.3 cm. SAH bilat frontal lobes, right parietal, temporal. Right frontotemporal SDH Status post emergency craniectomy for decompression for worsening midline shift right to left 2.1 cm Hx Daily alcohol use/Cocaine abuse, s/p Fall, ?syncope -s/p Right frontotemporal parietal decompressive craniectomy and Duroplasty 03/[address] Chacko. -s/p right cranioplasty 05/13/18, incision healing well. -Continue with PT/OT - -Seizure precautions -Palliative care following -Neuropsychiatry, Dr. Narvaez following: Noted signs and symptoms of frontal lobe dysfunction and lack decision making capacity -Continue on Topamax. Dysphagia Protein calorie malnutrition s/p PEG tube placement 03/30/18 -Remeron QHS Neutropenia -likely due to Fortaz. Fortaz discontinued. Hypernatremia, resolved Headache-improved -Neurology following, appreciate assistance. -Topamax 75mg BID Acute respiratory failure secondary to failure to protect airway-resolved extubated 03/25. MRSA pneumonia, status post treatment with IV vancomycin and Rocephin -CXR negative 06/10 -Continue as needed duo nebs, Supplemental oxygen as needed UTI/Pseudomonas -resolved -06/12 repeat UA positive for Pseudomonas and Enterococcus Faecalis -initially Treated with Ceftazidime, discontinued secondary to neutropenia -s/p abx treatment with Cipro Hepatitis C, history of -avoid hepatotoxic agents -follow up with GI as outpatient Continue current treatment as of July 10, 2018 (2) Traumatic brain injury Qualifiers: Encounter type: subsequent encounter
[2018-07-10] MEDS: Mirtazapine 15 MG Tablet PO SCH (20:45)
[2018-07-11] MEDS: Topiramate 25 MG Tablet PO SCH (08:14)
[2018-07-11] MEDS: Senna/Docusate Sodium 8.6/50 MG Tablet PO SCH (08:14)
[2018-07-11] MEDS: Heparin - SQ 10,000 UNITS/ML Vial SQ SCH (08:14)
[2018-07-11 09:39] VITALS: RESP 16
--- NOTE | 2018-07-11 13:05 | P.PNIM ---
Subjective Interval history: No acute changes. No fevers. Cognitive status and improved, patient ambulate some. Physical Exam Vital signs: Vital Signs 07/10/18 16:00 07/10/18 19:15 07/11/18 00:15 Temperature 98.2 F 97.9 F 97.6 F Pulse Rate 70 86 75 Respiratory Rate 16 18 16 Blood Pressure 126/78 106/66 114/70 Pulse Oximetry 100 98 100 07/11/18 04:20 07/11/18 08:00 Temperature 98.0 F 97.7 F Pulse Rate 76 72 Respiratory Rate 18 16 Blood Pressure 117/67 103/63 Pulse Oximetry 98 98 Intake & Output 07/10/18 07/11/18 07/11/18 18:59 06:59 18:59 Intake Total 950 / 950 Balance 950 / 950 Weight 57.2 kg Intake: Oral 950 / 950 Other: # Incontinent Voids 2 Date of Last Bowel Movement 07/04/18 07/10/18 07/10/18 # Incontinent Bowel Movements 1 Narrative: GENERAL: NAD, A&Ox3 HEAD: Normocephalic. NECK: Supple, trachea midline. No lymphadenopathy. EYES: No scleral icterus. No injection or drainage. CARDIOVASCULAR: Regular rate and rhythm without murmurs, gallops, or rubs. RESPIRATORY: Breath sounds equal bilaterally. No accessory muscle use. GASTROINTESTINAL: Abdomen soft, non-tender, nondistended. MUSCULOSKELETAL: No cyanosis, or edema. SKIN: Warm and dry. NEURO: No focal neurological deficits. - Urinary Catheter Management Indwelling Temp Sensing Catheter Cath placed during this visit: yes, but has since been removed by the nurse Reason for continuing: Not indwelling catheter Insertion date: 03/12/18 Insertion time: 05:30 Removal date: 03/25/18 Removal time: 18:00 Indwelling Urethral Catheter Cath placed during this visit: yes, but has since been removed by the nurse Reason for continuing: Decision to DC catheter Insertion date: 03/22/18 Insertion time: 17:30 Removal date: 03/25/18 Removal time: 18:00 Condom Cath placed during this visit: yes, but has since been removed by the nurse Reason for continuing: Hourly intake/output Insertion date: 05/13/18 Insertion time: 14:30 Removal date: 03/25/18 Removal time: 18:00 Results - Labs CBC & Chem 7: 06/27/18 07:15 06/27/18 07:15 - Procedures PEG right decompressive craniectomy 03/22/18 with placement of ICP monitor by Dr. Chacko, nc'ed 03/23/18 03/22/18 Right frontotemporal parietal decompressive craniectomy and Duroplasty 03/22/18 Left frontal bur hole with placement of an intracranial pressure monitor Assessment and Plan - Assessment (1) Intracranial hemorrhage following injury Code(s): S06.309A - Unspecified focal traumatic brain injury with loss of consciousness of unspecified duration, initial encounter Status: Acute (2) Traumatic brain injury Code(s): S06.9X9A - Unspecified intracranial injury with loss of consciousness of unspecified duration, initial encounter Status: Acute (3) Fall Code(s): W19.XXXA - Unspecified fall, initial encounter Status: Chronic (4) Cocaine abuse Code(s): F14.10 - Cocaine abuse, uncomplicated Status: Chronic (5) ETOH abuse Code(s): F10.10 - Alcohol abuse, uncomplicated Status: Chronic (6) Dysphagia Code(s): R13.10 - Dysphagia, unspecified Status: Acute - Plan 63-year-old male admitted secondary to intracranial hemorrhage Placement pending. No acute changes overnight. Patient is comfortable. TBI, Right frontal IPH 53.3 cm. SAH bilat frontal lobes, right parietal, temporal. Right frontotemporal SDH Status post emergency craniectomy for decompression Hx Daily alcohol use/Cocaine abuse s/p Right frontotemporal parietal decompressive craniectomy and Duroplasty by Dr. Chacko. s/p right cranioplasty 05/13/18 Continue with PT/OT Seizure precautions Continue on Topamax. Follow-up with neurosurgery as an outpatient Dysphagia Protein calorie malnutrition s/p PEG tube placement 03/30/18 Remeron QHS Neutropenia Chronic, no change Follow intermittently Hypernatremia resolved Headache Stable Topamax 75mg BID Acute respiratory failure secondary to failure to protect airway resolved extubated 03/25. MRSA pneumonia Resolved, treatment completed UTI/Pseudomonas resolved Hepatitis C follow up with GI as outpatient DVT prophylaxis Ambulate (2) Traumatic brain injury Qualifiers: Encounter type: subsequent encounter
[2018-07-11 13:38] VITALS: BP 106/61; PULSE 77; TEMP 97.3; O2SAT 100
--- NOTE | 2018-07-11 14:18 | P.DCO ---
- Physical Therapy Order: Evaluate and treat, Improve ambulation, Strength and gait training - Telephone Appointment Clerk Order: To evaluate: Living conditions/environment, Support services Order: To provide: Long range planning - Case Management Consult No - Certification I have seen patient Aguilar Jain on 07/11/18. My clinical findings support the need for the requested home health care services because: Limited mobility due to disease progression, Deconditioned with increased weakness, Medication compliance is questionable, Limited ability to care for self, Need for psychosocial assistance, Impaired cognition/judgement I certify that my clinical findings support that this patient is homebound because: Impaired cognitive ability/safety, Unsteady gait/balance, Unsafe to leave home unassisted, Need for psychosocial assistance, Unable to use public transportation
--- NOTE | 2018-07-11 14:26 | P.DCO ---
- Physical Therapy Order: Evaluate and treat, Improve ambulation, Strength and gait training - Home Health Nursing Order: Medical education, Nursing assessment with vital signs - Automobile Detailer Order: To evaluate: Living conditions/environment, Support services Order: To provide: Long range planning - Case Management Consult No - Certification I have seen patient Aguilar Jain on 07/11/18. My clinical findings support the need for the requested home health care services because: Limited mobility due to disease progression, Deconditioned with increased weakness, Medication compliance is questionable, Limited ability to care for self, Need for psychosocial assistance, Impaired cognition/judgement, High risk of falls I certify that my clinical findings support that this patient is homebound because: Impaired cognitive ability/safety, Unsteady gait/balance, Unsafe to leave home unassisted, Need for psychosocial assistance, Unable to use public transportation
--- NOTE | 2018-07-11 15:08 | P.DS ---
Date of admission: 03/03/18 20:25 Primary care physician: No Primary Care Physician Brief History from admission: See H&P. 62-year-old -[place] male with past medical history of COPD/asthma, tobacco abuse, daily alcohol use who presented to [facility] emergency department after a fall. Patient told EM provider that he was mopping the floor with some chemicals when he felt lightheaded and fell hitting the back of his head. Patient complained of vertigo. CT brain showed right frontal intraparenchymal hemorrhage 5 x 3.3 cm with subarachnoid hemorrhage bilateral frontal lobes, right parietal and right temporal lobes. There is a component of acute subdural hematoma along the right frontoparietal lobe that is 6 mm. There is 4 mm of subfalcine herniation to the left. He is not on anticoagulation but takes aspirin daily. He complained of headache and has received Dilaudid 0.2 mg IV in the ED. BP went up to 183/99 and he was started on Cardene and BP now 144/74 on 5mg/hr. He denied nausea, vomiting, cough, fevers or chills. CTA brain/neck demonstrate no vascular abnormality. He has been admitted by Dr. Dolan and [facility] has been consulted to assist in medical management of ICH as well as workup for syncope. He said that his son had brought him to the emergency department for evaluation however upon evaluation in the ED the son was not present and there was no phone number available for him. DS: Diagnosis - Discharge Diagnosis (1) Intracranial hemorrhage following injury Status: Acute (2) Traumatic brain injury Status: Acute (3) Fall Status: Chronic (4) Cocaine abuse Status: Chronic (5) ETOH abuse Status: Chronic (6) Dysphagia Status: Acute DS: Medications - Discharge Medications Prescriptions: topiramate [Topamax] 75 mg PO BID #60 tab DS: Summary Hospital Course: Mr. Jain is now a 63-year-old male. He was admitted approximately 130 days ago secondary to a fall, intracranial hemorrhage, subarachnoid hemorrhage. Associated procedures have been: Right frontotemporal parietal decompressive craniectomy and Duroplasty 03/22/[address] Chacko and right cranioplasty 05/13/18. Initially he was doing very poorly requiring tube feeds and full support. Family was unable to care for him in this situation. He was unable to communicate. Through time he has had slow progression and improvements. At this point he is able to walk. He does communicate. Cognitive status is compromised. Patient will need assistance in care. His family has agreed to assist in care for this patient. Patient will have home health PT, social work, and nursing care. He is medically stable and cleared for discharge home today. Treatment will be Topamax which addresses his headaches and seizure risk. Medically stable and cleared for discharge home today, with home health care. - Time Spent with Patient Total time spent providing and/or coordinating discharge services: Less than 30 minutes Exam Vital signs: Vital Signs 07/10/18 16:00 07/10/18 19:15 07/11/18 00:15 Temperature 98.2 F 97.9 F 97.6 F Pulse Rate 70 86 75 Respiratory Rate 16 18 16 Blood Pressure 126/78 106/66 114/70 Pulse Oximetry 100 98 100 07/11/18 04:20 07/11/18 08:00 07/11/18 12:00 Temperature 98.0 F 97.7 F 97.3 F L Pulse Rate 76 72 77 Respiratory Rate 18 16 16 Blood Pressure 117/67 103/63 106/61 Pulse Oximetry 98 98 100 Intake & Output 07/10/18 07/11/18 07/11/18 18:59 06:59 18:59 Intake Total 950 / 950 Balance 950 / 950 Weight 57.2 kg Intake: Oral 950 / 950 Other: # Incontinent Voids 2 Date of Last Bowel Movement 07/04/18 07/10/18 07/10/18 # Incontinent Bowel Movements 1 Results Procedures completed during hospitalization: PEG 7 -25 right decompressive craniectomy 03/22/18 with placement of ICP monitor by Dr. Chacko, or'ed 03/23/18 03/22/18 Right frontotemporal parietal decompressive craniectomy and Duroplasty 03/22/18 Left frontal bur hole with placement of an intracranial pressure monitor - Impressions ITS Impressions Abdomen/Pelvis CT 03/13/18 00:00 CONCLUSION: 1. Moderate constipation with diffuse ileus. Rectum distended to 8 cm with stool. No small bowel obstruction. No significant free fluid. No free air. 2. Dodge catheter in bladder. NG coiled in stomach. Trace right pleural effusion. Head CT 04/26/18 00:00 CONCLUSION: 1. Stable exam with large right craniectomy defect and 5 mm of midline shift. No hemorrhage appreciated. . Head CTA 04/26/18 00:00 CONCLUSION: 1. Negative CTA Head. Chest X-Ray 06/10/18 00:00 CONCLUSION: Negative for an acute process. Abdomen X-Ray 06/22/18 00:00 CONCLUSION: Gastrostomy tube evident left upper quadrant Moderate stool otherwise negative Discharge Plan - Discharge Disposition Patient Disposition: /Home Health Service - Discharge Condition Condition: Stable - Discharge Order Discharge Orders: Discharge Order (Routine); Ordered 07/11/18 Ordered By: Marcus العراقي - Discharge Details Anticipated Discharge Date: 07/11/18 - Physicians Team Primary Care Provider: Primary Care Sherice Kirby Attending Provider: Marcus العراقي Other Providers: Madalyn Dalton MD ; Amador Myers MD ; Fay Salvador MD ; Eliceo Narvaez, PhD ; Benson Garcia MD, PhD ; [facility] ; Aguilar Shin MD ; Matty Lane MD ; Sagar Newell MD ; [facility] ; Flaco Rasheed MD - Rxs /Orders / Referrals /Forms Prescriptions: New topiramate [Topamax] 25 mg Tablet 75 mg PO BID Qty: 60 RF: 0 Discontinued aspirin 325 mg Tablet 325 mg PO DAILY Referrals: Primary Care Sherice Kirby [Primary Care Provider] - See Instructions - Discharge Instructions Additional Instructions: Your Health Problems: Goals to Promote Your Health: * To prevent worsening of your condition * To maintain your health at the optimal level Directions to Meet Your Goals: * Take your medications as prescribed * Follow your dietary instruction * Follow activity as directed * Keep your appointments as scheduled * Take your immunizations and boosters as scheduled * If your symptoms worsen call your PCP * If no PCP go to Urgent Care or Emergency Room Smoking is dangerous to your health. Avoid second hand smoke. You may reach the 24-hour crisis hotline for domestic abuse at . - Post Discharge Care Plan Care Plan Goals: Your Health Problems: Goals to Promote Your Health: * To prevent worsening of your condition * To maintain your health at the optimal level Directions to Meet Your Goals: * Take your medications as prescribed * Follow your dietary instruction * Follow activity as directed * Keep your appointments as scheduled * Take your immunizations and boosters as scheduled * If your symptoms worsen call your PCP * If no PCP go to Urgent Care or Emergency Room Smoking is dangerous to your health. Avoid second hand smoke. You may reach the 24-hour crisis hotline for domestic abuse at .
== END 2018-07-11 15:41 | disposition home health service (06) ==
LOC: N03 20:25 → N05 03-28 19:50 → UNDODISIN 04-10 12:53 → N03 05-13 16:26 → N05 05-14 15:01
PROVIDERS: ADMIT Hospitalist; ATTEND Hospitalist

== ENCOUNTER 2018-08-14 15:52 | Observation (INO) ==
[2018-08-14] MEDS ORDERED: Sod Chloride 0.9% Inj 1,000 ML IV.SIG ONE (16:01)
[2018-08-14] MEDS ORDERED: Fosphenytoin Inj 1,000 MGPE in Sodium Chlor 0.9% Inj 50 ML IV.SIG ONE (16:11)
--- NOTE | 2018-08-14 16:43 | ED ---
HPI General Chief Complaint: Seizure Stated Complaint: Seizures Time Seen by Provider: 08/14/18 16:01 Source: patient and EMS Mode of arrival: EMS Limitations: no limitations History of Present Illness HPI Narrative: 63 yo M arrives by EMS after a generalized clonic tonic seizure at home. It was witnessed by roommate. Duration < 1 minute. [id number] state observed by EMS on scene. Pt with hx TBI, non-compliant with anti-epileptic medications. Pt was [place] [facility] [place] a 180 day admission for ICH required hemicraniectomy by Dr Chacko. A duraplasty was performed as well. Pt discharged on Topamax (dc'd 07/11). Related Data Previous Rx's Medication Instructions Recorded topiramate [Topamax] 75 mg PO BID #60 tab 07/11/18 Allergies Allergy/AdvReac Type Severity Reaction Status Date / Time No Known Allergies Allergy Verified 08/10/18 13:19 Review of Systems ROS Unobtainable ROS Unobtainable: unobtainable due to mental condition [facility] Medical History Medical History Asthma (Acute) COPD (chronic obstructive pulmonary disease) (Acute) Seizure (Acute) Tobacco abuse (Acute) Surgical History Surgical History H/O craniotomy (Acute) No history of previous surgery (Acute) Social History Social History Substance History: Unable to Obtain Second Hand Smoke Exposure: No Smoking Status: Unknown if ever smoked Tobacco Type: Cigarettes Cigarettes Per Day: 0.5 How Often Do You Have a Drink Containing Alcohol: Unable to Obtain Recent Travel in [facility] within the Last 8 Weeks: No Recent Out of Country Travel within the Last 8 Weeks: No Immunization History Tetanus Immunization: Unable to Assess Exam Narrative Exam Narrative: GENERAL: 63 yo M, WNWD, mild distress 2/2 post-ictal state SKIN: Focused skin assessment warm/dry. HEAD: Atraumatic. Normocephalic. EYES: Pupils equal and round. No scleral icterus. No injection or drainage. ENT: No nasal bleeding or discharge. Mucous membranes pink and moist. NECK: Trachea midline. No JVD. CARDIOVASCULAR: Tachycardia. Regular. RESPIRATORY: No accessory muscle use. Clear to auscultation. Breath sounds equal bilaterally. GASTROINTESTINAL: Abdomen soft, non-tender, nondistended. Hepatic and splenic margins not palpable. MUSCULOSKELETAL: Generalized atrophy. No gross deformity. NEUROLOGICAL: CN are symmetric. Pt moves all extremities in ED. PSYCHIATRIC: Cooperative. No apparent response to internal stimulus. Course Initial Documented Vital Signs Temperature 97.8 F 08/14/18 16:01 Pulse Rate 101 H 08/14/18 16:01 Respiratory Rate 18 08/14/18 16:01 Blood Pressure 140/91 H 08/14/18 16:01 Pulse Oximetry 100 08/14/18 16:01 Last Documented Vital Signs Temperature 97.8 F 08/14/18 16:01 Pulse Rate 102 H 08/14/18 16:13 Respiratory Rate 18 08/14/18 16:13 Blood Pressure 137/77 08/14/18 16:13 Pulse Oximetry 100 08/14/18 16:15 Critical Care Time Critical Care Time: Yes Total Critical Care Time: 33 Attestation: Aggregate critical care time was 33 minutes. Time to perform other separately billable procedures was not included in the critical care time. My time did not include minutes spent treating any other patients simultaneously or on activities that did not directly contribute to the patient's treatment. The services I provided to this patient were to treat and/or prevent clinically significant deterioration that could result in: status epilepticus, anoxia I provided critical care services requiring my management, as noted below: Chart data review, documentation time, medication orders and management, vital sign assessments/reviewing monitor data, ordering and reviewing lab tests, ordering and interpreting/reviewing x-rays and diagnostic studies, care of the patient and discussion of the patient with the admitting physicians. Medical Decision Making MDM Narrative Medical decision making narrative: Pt with seizure in ED, second seizure today. 2mg IV ativan given followed by 1g IV phosphenytoin. d/w Dr Lopez for [facility]. Medical Screen Exam Complete: Yes Emergency Medical Condition: Yes Lab Data Result diagrams: 08/14/18 16:26 08/14/18 16:26 Lab Results 08/14/18 08/14/18 Range/Units 16:26 16:26 WBC 3.6 L (4.0-11.0) th/mm3 RBC 4.60 (4.50-5.90) mil/mm3 Hgb 14.2 (13.0-17.0) gm/dL Hct 43.3 (39.0-51.0) % MCV 94.1 (80.0-100.0) fL MCH 30.9 (27.0-34.0) pg MCHC 32.8 (32.0-36.0) % RDW 16.1 (11.6-17.2) % Plt Count 223 (150-450) th/mm3 MPV 7.6 (7.0-11.0) fL Neut % (Auto) 41.2 (16.0-70.0) % Lymph % (Auto) 43.7 (9.0-44.0) % [place] % (Auto) 13.1 H (0.0-8.0) % Eos % (Auto) 1.3 (0.0-4.0) % Baso % (Auto) 0.7 (0.0-2.0) % Neut # (Auto) 1.5 L (1.8-7.7) th/mm3 Lymph # (Auto) 1.6 (1.0-4.8) th/mm3 [place] # (Auto) 0.5 (0.0-0.9) th/mm3 Eos # (Auto) 0.0 (0.0-0.4) th/mm3 Baso # (Auto) 0.0 (0.0-0.2) th/mm3 WBC Differential . Differential Comment Auto diff final Sodium 141 (136-145) meq/L Potassium 3.5 (3.5-5.1) meq/L Chloride 108 H (98-107) meq/L Carbon Dioxide 22.8 (21.0-32.0) meq/L Anion Gap 10 (5-15) meq/L BUN 8 (7-18) mg/dL Creatinine 1.00 (0.60-1.30) mg/dL Estimated GFR Greater than 89 (>89) mL/min Random Glucose 90 (74-106) mg/dL Calcium 8.5 (8.5-10.1) mg/dL Magnesium 2.0 (1.5-2.5) mg/dL Serum Alcohol Less than 3 (0-5) mg/dL Imaging Data Radiologist's impression: Head CT 08/14/18 16:11 CONCLUSION: 1. No acute abnormality is seen. 2. Chronic change following right craniotomy with dural thickening and calcification along the right frontal and parietal regions. 3. Encephalomalacia at the right frontal lobe and adjacent to the right lateral and third ventricles. . Discharge Plan Discharge Disposition Patient Disposition: ED Admit(ED Internal Use Only) Discharge Order Discharge Orders: ED Use Only Admit Order (Routine); Ordered 08/14/18 Ordered By: Marcus Zafar Physicians Team ED Provider: Marcus Zafar Rxs /Orders / Referrals /Forms Prescriptions: No Action topiramate [Topamax] 25 mg Tablet 75 mg PO BID Qty: 60 RF: 0 Discharge Interventions Interventions: Vital Signs Last Done: 08/14/18 16:13 Status ED Status: With Doctor
[2018-08-14 16:59] LABS: Baso % (Auto) 0.7 % (0.0-2.0); Eos % (Auto) 1.3 % (0.0-4.0); Hematocrit 43.3 % (39.0-51.0); Hemoglobin 14.2 gm/dL (13.0-17.0); Lymph # (Auto) 1.6 th/mm3 (1.0-4.8); Lymph % (Auto) 43.7 % (9.0-44.0); Mean Corpuscular HGB Conc 32.8 % (32.0-36.0); Mean Corpuscular Hemoglobin 30.9 pg (27.0-34.0); Mean Corpuscular Volume 94.1 fL (80.0-100.0); Mean Platelet Volume 7.6 fL (7.0-11.0); Mono # (Auto) 0.5 th/mm3 (0.0-0.9); Mono % (Auto) 13.1 % (0.0-8.0); Neut # (Auto) 1.5 th/mm3 (1.8-7.7); Neut % (Auto) 41.2 % (16.0-70.0); Platelet Count 223 th/mm3 (150-450); Red Cell Distribution Width 16.1 % (11.6-17.2); White Blood Count 3.6 th/mm3 (4.0-11.0)
[2018-08-14 17:21] LABS: Anion Gap 10 meq/L (5-15); Blood Urea Nitrogen 8 mg/dL (7-18); Calcium 8.5 mg/dL (8.5-10.1); Carbon Dioxide 22.8 meq/L (21.0-32.0); Chloride 108 meq/L (98-107); Glomerular Filtration Rate Greater Than 89 mL/min (>89); Glucose,Random 90 mg/dL (74-106); Potassium 3.5 meq/L (3.5-5.1); Sodium 141 meq/L (136-145)
--- NOTE | 2018-08-14 18:01 | CT ---
EXAM DATE: 08/14/2018 5:50 PM EST AGE/SEX: 63 years / Male INDICATIONS: Seizure. CLINICAL DATA: This is the patient's initial encounter. Patient reports that signs and symptoms have been present for 1 day and indicates a pain score of Nonresponsive. MEDICAL/SURGICAL HISTORY: Asthma. Chronic obstructive pulmonary disease. Craniotomy. RADIATION DOSE: 56.35 CTDI (mGy) COMPARISON: [facility] [place], [place] HEAD W/O CONTRAST, 04/26/2018. . TECHNIQUE: CT of the head without contrast. Using automated exposure control and adjustment of the mA and/or kV according to patient size, radiation dose was kept as low as reasonably achievable to ob tain optimal diagnostic quality images. DICOM format image data is available electronically for revi ew and comparison. FINDINGS: Cerebrum: The patient is status post right craniotomy. On the prior exam, the excised portion of the skull had been removed Since the prior exam, the excised portion of the skull has been replaced. The re is dural calcification seen along the right frontal and parietal regions. There is some thickening of the dura in this region. There is encephalomalacia at the right frontal lobe. There is focal ence phalomalacia at the medial right brain to the right of the third ventricle and posterior to the front al horn of the right lateral ventricle. The ventricles are normal for age. No evidence of midline s hift, mass lesion, hemorrhage or acute infarction. No extraaxial fluid collections are seen. Posterior Fossa: The cerebellum and brainstem are intact. The 4th ventricle is midline. The cerebe llopontine angle is unremarkable. Extracranial: The visualized portion of the orbits is intact. Skull: The calvaria is intact. No evidence of skull fracture. CONCLUSION: 1. No acute abnormality is seen. 2. Chronic change following right craniotomy with dural thickening and calcification along the right frontal and parietal regions. 3. Encephalomalacia at the right frontal lobe and adjacent to the right lateral and third ventricles . . Electronically signed by: Saeid Khan MD 08/14/2018 5:59 PM EST
[2018-08-14] MEDS ORDERED: Bisacodyl 10 MG Supp RECTAL PRN (18:05)
[2018-08-14] MEDS ORDERED: Acetaminophen 325 MG Tablet PO PRN (18:05)
--- NOTE | 2018-08-14 18:45 | P.HPIM ---
History of Present Illness Service: Hospitalist Primary Care Physician: No Primary Care Physician Chief Complaint: Seizure History of Present Illness: Patient is a 63-year-old male with a past medical history of COPD/asthma, tobacco and EtOH use, traumatic brain injury with craniectomy (done 03/23 with lengthy hospitalization and recovery), and dysphagia with PEG placement who was admitted via EMS after experiencing a generalized tonic-clonic seizure at home. Seizure was witnessed by roommate per ED report. Patient is apparently noncompliant with antiepileptic medications started post TBI. He is seen in the emergency room where he is very drowsy. He does awake with stimulation. Tells me to stop yelling at him and let him sleep. Will not answer any other questions. Review of Systems ROS Unobtainable: unobtainable due to mental condition PMF[facility] Medical History Medical History Seizure (Acute) Asthma (Acute) COPD (chronic obstructive pulmonary disease) (Acute) Tobacco abuse (Acute) Surgical History Surgical History H/O craniotomy (Acute) Family History Family History Other Family history non-contributory Social History Social History Substance History: Unable to Obtain Second Hand Smoke Exposure: No Smoking Status: Unknown if ever smoked Tobacco Type: Cigarettes Cigarettes Per Day: 0.5 How Often Do You Have a Drink Containing Alcohol: Unable to Obtain Recent Travel in [facility] within the Last 8 Weeks: No Recent Out of Country Travel within the Last 8 Weeks: No Immunization History Tetanus Immunization: Unable to Assess Medications and Allergies Allergies Allergy/AdvReac Type Severity Reaction Status Date / Time No Known Allergies Allergy Verified 08/10/18 13:19 Active Medications: Active Medications Acetaminophen (Tylenol) 650 mg PO Q4H PRN PRN Reason: Temp > 100.4 Al Hydroxide/Mg Hydroxide (Milk Of Magnesia Liq) 30 ml PO Q12H PRN PRN Reason: Mild Constipation Bisacodyl (Dulcolax Supp) 10 mg RECTAL DAILY PRN PRN Reason: SEVERE CONSITIPATION Lactulose (Lactulose Liq) 30 ml PO DAILY PRN PRN Reason: SEVERE CONSITIPATION Lorazepam (Ativan Inj) 2 mg IV.PUSH Q15M PRN PRN Reason: SEIZURES Ondansetron HCl (Zofran Inj) 4 mg IV.PUSH Q6H PRN PRN Reason: NAUSEA OR VOMITING Sennosides (Senokot) 17.2 mg PO Q12H PRN PRN Reason: Moderate Constipation Sodium Chloride (Ns Flush) 2 ml IV.FLUSH PRN PRN PRN Reason: FLUSH AFTER USING IV ACCESS Sodium Chloride (Ns Flush) 2 ml IV.FLUSH BID PEDRO LUIS Sodium Chloride (Ns Flush) 2 ml IV.FLUSH PRN PRN PRN Reason: FLUSH AFTER USING IV ACCESS Topiramate (Topamax) 75 mg PO BID PEDRO LUIS Physical Exam Vital signs: Last Vital Signs Temp 97.8 F 08/14/18 16:01 Pulse 102 H 08/14/18 16:13 Resp 18 08/14/18 16:13 BP 137/77 08/14/18 16:13 Pulse Ox 100 08/14/18 16:15 Intake & Output 08/12/18 08/13/18 08/14/18 08/15/18 06:59 06:59 06:59 06:59 Intake Total 1070 / 1070 Balance 1070 / 1070 Weight 68.039 kg Narrative: GENERAL: Chronically ill adult male in no obvious distress. SKIN: Warm and dry. CARDIOVASCULAR: Regular rate and rhythm. RESPIRATORY: No accessory muscle use. Clear to auscultation. Breath sounds equal bilaterally. GASTROINTESTINAL: Abdomen soft, non-tender, distended. Positive bowel sounds. PEG in place. No significant drainage or erythema surrounding site. MUSCULOSKELETAL: Extremities without clubbing, cyanosis, or edema. No obvious deformities. NEUROLOGICAL: Drowsy Results Labs CBC & Chem 7: 08/14/18 16:26 08/14/18 16:[address] 08/14/18 16:11 CONCLUSION: 1. No acute abnormality is seen. 2. Chronic change following right craniotomy with dural thickening and calcification along the right frontal and parietal regions. 3. Encephalomalacia at the right frontal lobe and adjacent to the right lateral and third ventricles. . Caprini VTE Risk Assessment Caprini VTE Risk Assessment: No/Low Risk (score <= 1) Caprini Risk Assessment Model: Point Value = 1 Point Value = 2 Point Value = 3 Point Value = 5 Age 41-60 Minor surgery BMI > 25 kg/m2 Swollen legs Varicose veins or History of unexplained or recurrent spontaneous Oral contraceptives or hormone replacement Sepsis (< 1 month) Serious lung disease, including pneumonia (< 1 month) Abnormal pulmonary function Acute myocardial infarction Congestive heart failure (< 1 month) History of inflammatory bowel disease Medical patient at bed rest Age 61-74 Arthroscopic surgery Major open surgery (> 45 min) Laparoscopic surgery (> 45 min) Malignancy Confined to bed (> 72 hours) Immobilizing plaster cast Central venous access Age >= 75 History of VTE Family history of VTE Factor V Leiden Prothrombin [id number] Lupus anticoagulant Anticardiolipin antibodies Elevated serum homocysteine Heparin-induced thrombocytopenia Other congenital or acquired thrombophilia Stroke (< 1 month) Elective arthroplasty Hip, pelvis, or leg fracture Acute spinal cord injury (< 1 month) Prophylaxis Regimen: Total Risk Factor Score Risk Level Prophylaxis Regimen 0-1 Low Early ambulation 2 Moderate Order ONE of the following: *Sequential Compression Device (SCD) *Heparin 5000 units SQ BID 3-4 Higher Order ONE of the following medications: *Heparin 5000 units SQ TID *Enoxaparin/Lovenox 40 mg SQ daily (WT < 150 kg, CrCl > 30 mL/min) *Enoxaparin/Lovenox 30 mg SQ daily (WT < 150 kg, CrCl > 10-29 mL/min) *Enoxaparin/Lovenox 30 mg SQ BID (WT < 150 kg, CrCl > 30 mL/min) AND/OR *Sequential Compression Device (SCD) 5 or more Highest Order ONE of the following medications: *Heparin 5000 units SQ TID (Preferred with Epidurals) *Enoxaparin/Lovenox 40 mg SQ daily (WT < 150 kg, CrCl > 30 mL/min) *Enoxaparin/Lovenox 30 mg SQ daily (WT < 150 kg, CrCl > 10-29 mL/min) *Enoxaparin/Lovenox 30 mg SQ BID (WT < 150 kg, CrCl > 30 mL/min) AND *Sequential Compression Device (SCD) Assessment and Plan Plan Patient is a 63-year-old male with a past medical history of COPD/asthma, tobacco and EtOH use, traumatic brain injury with craniectomy (done 03/23 with lengthy hospitalization and recovery), and dysphagia with PEG placement who was admitted via EMS after experiencing a generalized tonic-clonic seizure at home. Seizure -Imaging and labs not concerning -Patient given 2 mg IV Ativan followed by 1 g IV phosphorus given in ED -re-started on Topamax 75 mg twice daily -Neurochecks every 4; seizure precautions -Considering past history of EtOH abuse may need CIWA protocol; monitor Nonadherence to medical plan -Patient with some mental barriers to providing his own healthcare -Appreciate case management assistance in placement Dysphagia with PEG -Unsure if patient continues PEG feeding or now takes food orally; speech evaluation ordered DVT prophylaxis: SCDs Discharge planning: TBD
[2018-08-14] MEDS: Topiramate 25 MG Tablet PO SCH (21:01)
[2018-08-15 08:06] VITALS: TEMP 98.3
[2018-08-15] MEDS: Topiramate 25 MG Tablet PO SCH (08:39)
--- NOTE | 2018-08-15 09:09 | P.PN ---
Subjective Interval history: Follow up for seizure. The patient is awake, alert, oriented, however does not wish to participate in much conversation. He denies any specific medical complaints including no headache, lightheadedness, dizziness, chest pain, shortness of breath, or abdominal complaints. No reported seizures overnight. Again stressed importance of adhering to antiepileptics. The patient states he eats by mouth only, does not use his PEG. Physical Exam Vital signs: Vital Signs 08/14/18 16:01 08/14/18 16:13 08/14/18 16:15 Temperature 97.8 F Pulse Rate 101 H 102 H Respiratory Rate 18 18 Blood Pressure 140/91 H 137/77 Pulse Oximetry 100 100 100 08/14/18 18:51 08/14/18 20:00 08/15/18 00:00 Temperature 97.3 F L 97.5 F L Pulse Rate 92 H 117 H 67 Respiratory Rate 18 17 18 Blood Pressure 116/71 111/70 124/80 Pulse Oximetry 99 95 100 08/15/18 04:00 08/15/18 07:00 08/15/18 08:00 Temperature 97.6 F 98.3 F Pulse Rate 84 72 Respiratory Rate 17 12 16 Blood Pressure 116/63 106/69 Pulse Oximetry 100 100 Intake & Output 08/14/18 08/15/18 08/15/18 18:59 06:59 18:59 Intake Total 1070 / 1070 60 / 60 Balance 1070 / 1070 60 / 60 Weight 68.039 kg 68.039 kg Intake: IV 1070 / 1070 Cerebyx Inj 1,000 MGPE In NS 70 / 70 Inj 50 ML @ 280 mls/hr IV.SIG ONCE ONE Rx#:[id number] NS Inj 1,000 ML @ Wide Open IV. 1000 / 1000 SIG BOLUS ONE Rx#:[id number] Oral 60 / 60 Other: # Voids 5 Weight On Admission 68.039 kg Narrative: GENERAL: Thin middle aged male patient in NAD. SKIN: Warm and dry. No rash. HEENT: Normocephalic. Atraumatic. Bitemporal wasting. Pupils equal and round. Mucous membranes pink and moist. CARDIOVASCULAR: Regular rate and rhythm. No murmur appreciated. RESPIRATORY: No accessory muscle use. Clear to auscultation. Breath sounds equal bilaterally. GASTROINTESTINAL: Abdomen soft, non-tender, nondistended. Normoactive bowel sounds x4. PEG in place. MUSCULOSKELETAL: No obvious deformities. Extremities without clubbing, cyanosis , or edema. NEUROLOGICAL: Awake and alert. No obvious cranial nerve deficits. Moving all extremities spontaneously. Normal speech. Results - Labs CBC & Chem 7: 08/14/18 16:26 08/14/18 16:26 Laboratory Results - last 24 hr 08/14/18 12 16:26 16:26 WBC 3.6 L RBC 4.60 Hgb 14.2 Hct 43.3 MCV 94.1 MCH 30.9 MCHC 32.8 RDW 16.1 Plt Count 223 MPV 7.6 Neut % (Auto) 41.2 Lymph % (Auto) 43.7 [place] % (Auto) 13.1 H Eos % (Auto) 1.3 Baso % (Auto) 0.7 Neut # (Auto) 1.5 L Lymph # (Auto) 1.6 [place] # (Auto) 0.5 Eos # (Auto) 0.0 Baso # (Auto) 0.0 WBC Differential . Differential Comment Auto diff final Sodium 141 Potassium 3.5 Chloride 108 H Carbon Dioxide 22.8 Anion Gap 10 BUN 8 Creatinine 1.00 Estimated GFR Greater than 89 Random Glucose 90 Calcium 8.5 Magnesium 2.0 Serum Alcohol Less than 3 - Imaging Impressions Head CT 08/14/18 16:11 CONCLUSION: 1. No acute abnormality is seen. 2. Chronic change following right craniotomy with dural thickening and calcification along the right frontal and parietal regions. 3. Encephalomalacia at the right frontal lobe and adjacent to the right lateral and third ventricles. . Assessment and Plan - Plan 63-year-old male with a past medical history of COPD/asthma, tobacco and EtOH use, traumatic brain injury with craniectomy (done 03/23 with lengthy hospitalization and recovery), and dysphagia with PEG placement who was admitted via EMS after experiencing a generalized tonic-clonic seizure at home. Seizure: secondary to hx of TBI/craniectomy, noncompliant with antiepileptics -Head CT reviewed and unremarkable, labs wnl -Patient given 2 mg IV Ativan followed by 1 g IV phosphorus given in ED -re-started on Topamax 75 mg twice daily -Neurochecks every 4; seizure precautions -no further seizures Noncompliance to medical plan: chronic issue -Patient with some mental barriers to providing his own healthcare -Appreciate case management assistance, assisting with safe discharge plan Dysphagia with PEG -cleared by speech therapy -patient states he only eats by mouth, does not use PEG -will keep PEG in place for now as patient still very thin/cachectic -encourage po intake DVT prophylaxis: SCDs Discharge Planning: Discharge patient to home Condition on discharge: Stable Regular Diet as tolerated Ad Clari activity, Seizure precautions, no driving Rx written: topamax Follow-up with primary care physician and neurology
[2018-08-15 09:13] LABS: Amphetamine Screen,Urine Neg (Neg); Barbiturate Screen,Urine Neg (Neg); Cannabinoid Screen,Urine Neg (Neg); Cocaine Screen,Urine Neg (Neg)
[2018-08-15 09:18] LABS: Opiate Screen,Urine Neg (Neg)
[2018-08-15 12:26] VITALS: BP 118/76; PULSE 80; RESP 16; O2SAT 99
--- NOTE | 2018-08-16 09:49 | ECG ---
Date Performed: 08/14/2018 Time Performed: 16:24:47 PTAGE: 63 years EKG: SINUS TACHYCARDIA POSSIBLE LEFT ATRIAL ENLARGEMENT Consider anteroseptal [place], age indetermin ate ABNORMAL ECG PREVIOUS TRACING : 05/19/2018 21.13 DOCTOR: Wilson Nation Interpretating Date/Time 08/16/2018 09:48:29
== END 2018-08-15 14:25 | disposition home or self-care (01) ==
LOC: NEDA 15:52 → NEPE 15:52 → NEDA 19:25 → NEPHCDU 19:31
PROVIDERS: ADMIT Hospitalist; ATTEND Hospitalist